=== PATIENT | male | born 1955 | race Caucasian/White ===

== ENCOUNTER 2018-03-30 09:07 | Observation (INO) | payer OTHER, SELFPAY ==
[2018-03-30] VITALS (16 sets, daily range): BP systolic 108–149; BP diastolic 56–84; PULSE 69–77; RESP 16–20; TEMP 36.3–36.9; O2SAT 92–98; BMI 35.8
--- NOTE | 2018-03-30 09:14 | DI.RAD.S_ITS ---
PROCEDURE: XR CHEST 1V INDICATIONS: chest pain TECHNIQUE: One view of the chest was acquired. COMPARISON: [facility], , CHEST 1 VIEW, 12/03/2017, 21:19. FINDINGS: Surgical changes and devices: Soft tissue anchor projecting in the left humeral head. Lungs and pleura: No pleural effusions or pneumothorax. Lungs are clear. Mediastinum: Mediastinal contours appear normal. Heart size is normal. Bones and chest wall: No suspicious bony lesions. Overlying soft tissues appear unremarkable. Spurring versus ununited osteophyte, or potentially small loose body, involving the right glenohumeral joint as before. IMPRESSION: No acute cardiopulmonary disease. Dictated by: Jarred Topete M.D. on 03/30/2018 at 9:29 Approved by: Jarred Topete M.D. on 03/30/2018 at 9:35
[2018-03-30] MEDS: NITROGLYCERIN 0.4 MG SL TAB SL ×3 (09:22→09:39)
[2018-03-30] MEDS: SODIUM CHLORIDE 0.9% 1,000 ML 150 ML IV (09:23)
[2018-03-30 09:35] LABS: Add Manual Diff / Slide Review NO; Basophils Percent Auto 0.3 % (0-2); Eosinophils Percent Auto 1.4 % (2-4); Hematocrit 41.8 % (41-53); Hemoglobin 14.8 g/dL (13.5-17.5); Lymphocytes Percent Auto 28.8 % (25-40); Mean Corpuscular HGB Conc 35.3 % (30-36); Mean Corpuscular Hemoglobin 34.8 PG (26-34); Mean Corpuscular Volume 98.6 fL (80-100); Monocytes Percent Auto 9.5 % (3-14); Neutrophils Absolute Auto 4900 /uL (3000-5900); Platelet Count 182 X10^3/uL (150-400); Red Blood Cell Count 4.24 X10^6/uL (4.5-5.9); Red Cell Distribution Width 13.9 % (11.6-14.8); White Blood Cell Count 8.1 X10^3/uL (4.5-11.0)
[2018-03-30 09:41] LABS: Alanine Aminotransferase 63 IU/L (21-72); Albumin 4.5 g/dL (3.5-5.0); Albumin Globulin Ratio 1.3 (1.0-2.8); Alkaline Phosphatase 69 U/L (38-126); Aspartate Aminotransferase 53 IU/L (17-59); BUN Creatinine Ratio 22.5 (6-22); Bilirubin Total 0.5 mg/dL (0.2-1.3); Blood Urea Nitrogen 18 mg/dL (9-20); Calcium 9.4 mg/dL (8.4-10.2); Carbon Dioxide 26 mmol/L (22-32); Chloride 97 mmol/L (98-107); Creatine Kinase 155 U/L (55-170); Estimated Glomerular Filt Rate > 60.0 mL/min (>60); Globulin 3.4 g/dL (1.7-4.1); Glucose 191 mg/dL (80-110); HEMOLYSIS 33 (0-50); Lipase 117 U/L (23-300); Potassium 4.2 mmol/L (3.4-5.1); Sodium 137 mmol/L (137-145); Total Protein 7.9 g/dL (6.3-8.2)
[2018-03-30 09:53] LABS: Troponin I < 0.012 ng/mL (0.01-0.034)
[2018-03-30 09:57] LABS: Creatine Kinase MB 3.17 ng/mL (<2.37)
--- NOTE | 2018-03-30 10:02 | ED.CHESTPAIN ---
HPI - Chest Pain General Chief Complaint: Chest Pain Stated Complaint: Chest Pain Time Seen by Provider: 03/30/18 09:14 Source: patient and EMS Mode of arrival: EMS History of Present Illness HPI narrative: Patient is a 62-year-old male with known coronary artery disease presenting with chest pain. [facility] and felt like he was having chest pain. He was given nitro and aspirin by EMS brought his pain down. He is still having some pain across the middle of his chest nonradiating. MD complaint: chest pain Onset (ago): minute(s) Duration: constant Treatments prior to arrival chest pain: aspirin and nitroglycerin Related Data Home Medications Medication Instructions Recorded Confirmed atorvastatin 40 mg PO QHS 03/30/18 03/30/18 gabapentin 600 mg PO QPM 03/30/18 03/30/18 gabapentin [Neurontin] 300 mg PO BID 03/30/18 03/30/18 insulin aspart U-100 [Novolog 50 unit SQ TIDCC 03/30/18 03/30/18 Flexpen U-100 Insulin] insulin glargine [Lantus Solostar 70 unit SUBCUT BID 03/30/18 03/30/18 U-100 Insulin] Previous Rx's Medication Instructions Recorded isosorbide mononitrate 60 mg PO QAM #90 tab 09/03/17 lisinopril 2.5 mg PO QAM #90 tab 11/18/17 famotidine 20 mg PO BID #60 tab 12/30/17 metformin [Glucophage] 500 mg PO BID #180 tab 01/04/18 albuterol sulfate HFA 90 1 - 2 puff INHALATION Q4HP PRN #3 03/11/18 mcg/actuation aerosol inhaler inh citalopram 40 mg tablet 40 mg PO QDAY #90 tab 03/11/18 pen needle, diabetic 29 gauge x #100 each 03/11/18 1/2 levothyroxine 50 mcg tablet 50 mcg PO QAM #90 tab 03/25/18 metoprolol tartrate 25 mg tablet 25 mg PO QAM #90 tab 03/25/18 pen needle, diabetic 31 gauge x #100 each 03/25/18 5/16 Allergies Allergy/AdvReac Type Severity Reaction Status Date / Time adhesive Allergy Mild REDNESS/ITC Verified 03/16/18 11:41 HINESS Review of Systems Review of Systems All systems reviewed & are unremarkable except as noted in HPI and below Constitutional Denies chills, Denies fever(s), Denies lethargy and Denies weakness Cardiovascular Reports as per HPI, Reports system reviewed and no additional complaints, except as docu, Denies dyspnea and Denies dyspnea on exertion Respiratory Denies cough, Denies dyspnea, Denies dyspnea on exertion and Denies wheezing Musculoskeletal Denies back pain, Denies muscle weakness, Denies numbness and Denies tingling Integumentary/Breasts Denies pruritus, Denies erythema, Denies rash and Denies wounds Neurologic Denies numbness, Denies tingling and Denies weakness Allergic/Immunologic Denies wheezing PFSH Medical History COPD (chronic obstructive pulmonary disease) (Acute) Hypothyroidism (Acute) Coronary artery disease (Acute) Diabetes (Acute) Hyperlipidemia (Acute) Hypertension (Acute) Family History: Reviewed 03/30/18 by Devendra Baker MD Social History household members: spouse, children and other Smoking Status: Current every day smoker alcohol intake: current Exam Initial Vital Signs Initial Vital Signs: Vital Signs Temperature 98.4 F 03/30/18 09:13 Pulse Rate 77 03/30/18 09:13 Respiratory Rate 16 03/30/18 09:13 Blood Pressure 134/84 H 03/30/18 09:13 Pulse Oximetry 97 03/30/18 09:13 GENERAL: Appears in pain slight diaphoresis HEENT: Head atraumatic,EOMI, pupils reactive, CARDIOVASCULAR: Regular rate and rhythm without murmurs, rubs or gallops. RESPIRATORY: Breath sounds equal bilaterally, no wheezes rales or rhonchi. ABDOMEN: Soft, nontender. Normoactive bowel sounds all 4 quadrants. No guarding or rebound. : No CVA tenderness EXTREMITIES: Normal range of motion, no clubbing or edema. Neurovascularly intact NEUROLOGICAL: Alert and oriented x4.Normal gait and speech. Cranial nerves II through XII grossly intact. SKIN: Warm, dry, no laceration, no petechiae, no rashes or lesions. Course Orders Ordered: ED Orders 03/30/18 09:00 Complete Blood Count AUTO DIFF Stat Comprehensive Metabolic Panel Stat D Dimer Stat Lipase Stat Troponin with CK Cardiac Panel Stat 03/30/18 09:14 XR chest 1V Stat EKG-12 Lead Stat 03/30/18 12:14 Troponin I Stat 03/30/18 14:09 Education, smoking cessation ONGOING 03/30/18 20:00 Troponin I Q8H 03/31/18 04:00 Troponin I Q8H Acetaminophen (Tylenol) 650 mg PO Q6HR PRN PRN Reason: As Needed for Fever/Mild Pain Al Hydrox/Mg Hydrox/Simethicone (Maalox Plus) 30 ml PO Q6HR PRN PRN Reason: Dyspepsia Atorvastatin Calcium (Lipitor) 40 mg PO QHS [facility] Calcium Carbonate (Tums) 1,000 mg PO Q4HR PRN PRN Reason: Dyspepsia Citalopram Hydrobromide (Celexa) 40 mg PO DAILY [facility] Last Admin: 03/30/18 15:02 Dose: 40 mg Gabapentin (Neurontin) 300 mg PO 0900,1500 [facility] Last Admin: 03/30/18 16:26 Dose: 300 mg Gabapentin (Neurontin) 600 mg PO QHS [facility] Insulin Aspart (Novolog Flexpen) 50 unit SUBCUT TIDWM [facility] Insulin Aspart (Novolog Flexpen) 0 unit SUBCUT ACHS [facility]; Protocol Insulin Glargine (Lantus Solostar (Pen)) 70 unit SUBCUT BID [facility] Isosorbide Mononitrate (Imdur) 60 mg PO DAILY [facility] Last Admin: 03/30/18 15:01 Dose: 60 mg Levothyroxine Sodium (Synthroid) 50 mcg PO 0600 [facility] Last Admin: 03/30/18 15:02 Dose: 50 mcg Lisinopril (Zestril) 2.5 mg PO DAILY [facility] Last Admin: 03/30/18 15:01 Dose: 2.5 mg Magnesium Hydroxide (Milk Of Magnesia) 30 ml PO DAILY PRN PRN Reason: Constipation Metformin HCl (Glucophage) 500 mg PO BIDWM [facility] Metoprolol Tartrate (Lopressor) 25 mg PO BID [facility] Morphine Sulfate (Morphine) 4 mg IV Q2H PRN PRN Reason: Chest Pain Last Admin: 03/30/18 16:26 Dose: 4 mg Ranitidine HCl (Zantac) 150 mg PO BID [facility] Discontinued Medications Sodium Chloride (Normal Saline 0.9%) 1,000 mls @ 150 mls/hr IV CONT [facility] Last Infusion: 03/30/18 14:19 Dose: 150 mls/hr Admin: 03/30/18 09:23 Dose: 150 mls/hr Insulin Aspart (Novolog Flexpen) 0 unit SUBCUT Q6H [facility]; Protocol Last Admin: 03/30/18 15:04 Dose: Metoprolol Tartrate (Lopressor) 25 mg PO NOW ONE Stop: 03/30/18 14:24 Last Admin: 03/30/18 15:01 Dose: 25 mg Morphine Sulfate (Morphine) 4 mg IV NOW ONE Stop: 03/30/18 10:04 Last Admin: 03/30/18 10:14 Dose: 4 mg Morphine Sulfate (Morphine) 4 mg IV NOW ONE Stop: 03/30/18 13:48 Last Admin: 03/30/18 13:58 Dose: 4 mg Nicotine (Nicoderm) 21 mg TOP NOW ONE Stop: 03/30/18 12:48 Last Admin: 03/30/18 13:35 Dose: 21 mg Nicotine (Nicoderm) 21 mg TOP NOW ONE Stop: 03/30/18 15:31 Last Admin: 03/30/18 16:27 Dose: Nitroglycerin (Nitrostat) 0.4 mg SL [id number] PRN PRN Reason: Chest Pain Last Admin: 03/30/18 09:39 Dose: 0.4 mg Admin: 03/30/18 09:28 Dose: 0.4 mg Admin: 03/30/18 09:22 Dose: 0.4 mg Pantoprazole Sodium (Protonix) 40 mg IV NOW ONE Stop: 03/30/18 10:04 Last Admin: 03/30/18 10:15 Dose: 40 mg Consultations Consultation #1: Dr. Baker in the ED to evaluate patient. Recommends repeating a troponin if her hands negative that he could stay here for stress test if it is elevating then will need to be transferred. 2nd troponin is negative doctor her Stevan happily accepts. Vital Signs - 8 hr 03/30/18 09:13 03/30/18 09:28 03/30/18 09:32 Temperature 98.4 F Pulse Rate 77 75 75 Respiratory Rate 16 18 Blood Pressure 134/84 H 108/56 L Blood Pressure [Left Arm] 127/67 H Pulse Oximetry 97 95 03/30/18 09:39 03/30/18 09:43 03/30/18 10:01 Temperature Pulse Rate 73 73 74 Respiratory Rate 18 18 Blood Pressure 118/63 Blood Pressure [Left Arm] 109/57 L 129/62 H Pulse Oximetry 97 97 03/30/18 10:16 03/30/18 11:57 03/30/18 13:33 Temperature Pulse Rate 73 73 74 Respiratory Rate 18 16 16 Blood Pressure Blood Pressure [Left Arm] 128/70 H 149/68 H 136/59 H Pulse Oximetry 98 93 94 03/30/18 13:55 03/30/18 14:09 03/30/18 16:04 Temperature 98.0 F Pulse Rate 74 69 Respiratory Rate 18 16 Blood Pressure 142/77 H Blood Pressure [Left Arm] 145/70 H Pulse Oximetry 94 96 96 MDM - Chest Pain Lab Data Result diagrams: 03/30/18 09:00 03/30/18 09:00 Lab Results 03/30/18 03/30/18 03/30/18 Range/Units 09:00 09:00 09:00 WBC 8.1 (4.5-11.0) X10^3/uL RBC 4.24 L (4.5-5.9) X10^6/uL Hgb 14.8 (13.5-17.5) g/dL Hct 41.8 (41-53) % MCV 98.6 (80-100) fL MCH 34.8 H (26-34) PG MCHC 35.3 (30-36) % RDW 13.9 (11.6-14.8) % Plt Count 182 (150-400) X10^3/uL Neut % (Auto) 60.0 (50-75) % Lymph % (Auto) 28.8 (25-40) % Tyrrell % (Auto) 9.5 (3-14) % Eos % (Auto) 1.4 L (2-4) % Baso % (Auto) 0.3 (0-2) % Neut # (Auto) 4900 (5843-2217) /uL D-Dimer 221 (<231) ng/mL Sodium 137 (137-145) mmol/L Potassium 4.2 (3.4-5.1) mmol/L Chloride 97 L (98-107) mmol/L Carbon Dioxide 26 (22-32) mmol/L BUN 18 (9-20) mg/dL Creatinine 0.80 (0.66-1.25) mg/dL Estimated GFR > 60.0 (>60) mL/min BUN/Creatinine Ratio 22.5 H (6-22) Glucose 191 H (80-110) mg/dL Calcium 9.4 (8.4-10.2) mg/dL Total Bilirubin 0.5 (0.2-1.3) mg/dL AST 53 (17-59) IU/L ALT 63 (21-72) IU/L Alkaline Phosphatase 69 (38-126) U/L Total Creatine Kinase 155 (55-170) U/L CK-MB (CK-2) 3.17 H (<2.37) ng/mL CK-MB (CK-2) Rel Index 2.0 (1.5-5.0) % Troponin I < 0.012 (0.01-0.034) ng/mL Total Protein 7.9 (6.3-8.2) g/dL Albumin 4.5 (3.5-5.0) g/dL Globulin 3.4 (1.7-4.1) g/dL Albumin/Globulin Ratio 1.3 (1.0-2.8) Lipase 117 (23-300) U/L // Range/Units 12:14 WBC (4.5-11.0) X10^3/uL RBC (4.5-5.9) X10^6/uL Hgb (13.5-17.5) g/dL Hct (41-53) % MCV (80-100) fL MCH (26-34) PG MCHC (30-36) % RDW (11.6-14.8) % Plt Count (150-400) X10^3/uL Neut % (Auto) (50-75) % Lymph % (Auto) (25-40) % Tyrrell % (Auto) (3-14) % Eos % (Auto) (2-4) % Baso % (Auto) (0-2) % Neut # (Auto) (8539-2501) /uL D-Dimer (<231) ng/mL Sodium (137-145) mmol/L Potassium (3.4-5.1) mmol/L Chloride (98-107) mmol/L Carbon Dioxide (22-32) mmol/L BUN (9-20) mg/dL Creatinine (0.66-1.25) mg/dL Estimated GFR (>60) mL/min BUN/Creatinine Ratio (6-22) Glucose (80-110) mg/dL Calcium (8.4-10.2) mg/dL Total Bilirubin (0.2-1.3) mg/dL AST (17-59) IU/L ALT (21-72) IU/L Alkaline Phosphatase (38-126) U/L Total Creatine Kinase (55-170) U/L CK-MB (CK-2) (<2.37) ng/mL CK-MB (CK-2) Rel Index (1.5-5.0) % Troponin I < 0.012 (0.01-0.034) ng/mL Total Protein (6.3-8.2) g/dL Albumin (3.5-5.0) g/dL Globulin (1.7-4.1) g/dL Albumin/Globulin Ratio (1.0-2.8) Lipase (23-300) U/L Imaging Data Chest x-ray: Radiologist's impression: PROCEDURE: XR CHEST 1V INDICATIONS: chest pain TECHNIQUE: One view of the chest was acquired. COMPARISON: [facility], , CHEST 1 VIEW, 12/03/2017, 21:19. FINDINGS: Surgical changes and devices: Soft tissue anchor projecting in the left humeral head. Lungs and pleura: No pleural effusions or pneumothorax. Lungs are clear. Mediastinum: Mediastinal contours appear normal. Heart size is normal. Bones and chest wall: No suspicious bony lesions. Overlying soft tissues appear unremarkable. Spurring versus ununited osteophyte, or potentially small loose body, involving the right glenohumeral joint as before. IMPRESSION: No acute cardiopulmonary disease. Dictated by: Jarred Topete M.D. on 03/30/2018 at 9:29 ECG Data Attestation: I personally reviewed and interpreted this ECG as follows: Prior ECG tracings: available for review Interpretation: EKG 1. Normal sinus rhythm rate 74 no acute ischemia some artifact noted similar to previous EKG in December 2017 EKG 2.: Normal sinus rhythm rate 72 no acute changes. MDM Narrative Medical decision making narrative: Patient has known coronary artery disease with chest pain. Chest pain improved most with morphine however he did receive 3 nitro which only helps some. No changes in EKG. Requesting a nicotine patch. Pain is non migratory D-dimer is negative I do not suspect dissection. Discharge Plan Departure Patient Disposition: Admitted as Observation Clinical Impression: Chest pain Discharge Date/Time: 03/30/18 14:14 Interventions: ED Discharge Assessment Last Done: 03/30/18 14:14 Admit Date/Time: 03/30/18 14:09 Admit Provider: Devendra Baker
[2018-03-30] MEDS: MORPHINE 4 MG/ML INJ IV ×4 (10:14→20:15)
[2018-03-30] MEDS: PANTOPRAZOLE 40 MG VIAL IV (10:15)
[2018-03-30 11:04] LABS: D Dimer 221 ng/mL (<231)
[2018-03-30 12:56] LABS: Troponin I < 0.012 ng/mL (0.01-0.034)
[2018-03-30] MEDS: NICOTINE 21 MG PATCH TOP (13:35)
[2018-03-30] MEDS: LISINOPRIL 5 MG TABLET 2.5 MG PO (15:01)
[2018-03-30] MEDS: METOPROLOL 25 MG TABLET PO ×2 (15:01→20:14)
[2018-03-30] MEDS: ISOSORBIDE MONONITRATE ER 30 MG TABLET 60 MG PO (15:01)
[2018-03-30] MEDS: CITALOPRAM 20 MG TABLET 40 MG PO (15:02)
[2018-03-30] MEDS: LEVOTHYROXINE 50 MCG TABLET PO (15:02)
--- NOTE | 2018-03-30 15:31 | PM.HP.1 ---
History of Present Illness Chief complaint: Chest Pain Narrative: Carlos Randall is a 62 year old male patient of Dr. Lakia Londono with history of coronary artery disease, diabetes, nicotine dependence presented to emergency department with complaints of anterior chest pain. He noticed discomfort in anterior chest at around 8:00 a.m. when up to bathroom. It was not relieved after 3 or 4 sublingual nitroglycerin. It finally was relieved after IV morphine in the ER. The discomfort has persisted for over 4 hr. Initial and 4 hr troponin were normal x2. Patient had coronary stent [place] time of [place] in 2006. He had another coronary stent in 2009. Both procedures were done at [facility]. 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 He saw his primary care provider recently with complaints of dizziness and noted to have a heart rate in the mid 50s and his metoprolol tartrate was decreased from 25 mg twice daily down to 25 mg once daily. He is still smoking 1 and half packs per day. Patient History Medical History COPD (chronic obstructive pulmonary disease) (Acute) Hypothyroidism (Acute) Coronary artery disease (Acute) Diabetes (Acute) Hyperlipidemia (Acute) Hypertension (Acute) Family & Social History Family History: Reviewed 03/30/18 by Devendra Baker MD Tobacco & Substance use: Smoking Status Current every day smoker alcohol intake frequency a few times a week Meds Home Medications Medication Instructions Recorded Confirmed Type isosorbide mononitrate 60 mg PO QAM #90 tab 09/03/17 03/30/18 Rx lisinopril 2.5 mg PO QAM #90 tab 11/18/17 03/30/18 Rx famotidine 20 mg PO BID #60 tab 12/30/17 03/30/18 Rx metformin [Glucophage] 500 mg PO BID #180 tab 01/04/18 03/30/18 Rx albuterol sulfate HFA 90 1 - 2 puff INHALATION Q4HP PRN #3 03/11/18 03/30/18 Rx mcg/actuation aerosol inhaler inh citalopram 40 mg tablet 40 mg PO QDAY #90 tab 03/11/18 03/30/18 Rx pen needle, diabetic 29 gauge x #100 each 03/11/18 03/30/18 Rx 1/2 levothyroxine 50 mcg tablet 50 mcg PO QAM #90 tab 03/25/18 03/30/18 Rx metoprolol tartrate 25 mg tablet 25 mg PO QAM #90 tab 03/25/18 03/30/18 Rx pen needle, diabetic 31 gauge x #100 each 03/25/18 03/30/18 Rx / atorvastatin 40 mg PO QHS 03/30/18 03/30/18 History gabapentin 600 mg PO QPM 03/30/18 03/30/18 History gabapentin [Neurontin] 300 mg PO BID 03/30/18 03/30/18 History insulin aspart U-100 [Novolog 50 unit SQ TIDCC 03/30/18 03/30/18 History Flexpen U-100 Insulin] insulin glargine [Lantus Solostar 70 unit SUBCUT BID 03/30/18 03/30/18 History U-100 Insulin] Allergies Allergy/AdvReac Type Severity Reaction Status Date / Time adhesive Allergy Mild REDNESS/ITC Verified 03/16/18 11:41 HINESS Review of Systems Review of Systems All systems reviewed & are unremarkable except as noted in HPI and below Exam Vital Signs (past 8 hours): Vital Signs - 8 hr 03/30/18 09:13 03/30/18 09:28 03/30/18 09:32 Temperature 98.4 F Pulse Rate 77 75 75 Respiratory Rate 16 18 Blood Pressure 134/84 H 108/56 L Blood Pressure [Left Arm] 127/67 H Pulse Oximetry 97 95 03/30/18 09:39 03/30/18 09:43 03/30/18 10:01 Temperature Pulse Rate 73 73 74 Respiratory Rate 18 18 Blood Pressure 118/63 Blood Pressure [Left Arm] 109/57 L 129/62 H Pulse Oximetry 97 97 03/30/18 10:16 03/30/18 11:57 03/30/18 13:33 Temperature Pulse Rate 73 73 74 Respiratory Rate 18 16 16 Blood Pressure Blood Pressure [Left Arm] 128/70 H 149/68 H 136/59 H Pulse Oximetry 98 93 94 03/30/18 13:55 Temperature Pulse Rate 74 Respiratory Rate 18 Blood Pressure Blood Pressure [Left Arm] 145/70 H Pulse Oximetry 94 Pulse Oximetry 94 Oxygen Delivery Method Room Air Narrative Exam Narrative: GENERAL: This is an alert cooperative male who appears in moderate discomfort. HEAD: Atraumatic. Normocephalic. EYES: Pupils equal, round and reactive. Extraocular motions intact. No scleral icterus. No injection or drainage. OROPHARYNX: moist mucosa NECK: Trachea midline. No JVD or lymphadenopathy. CARDIOVASCULAR: Regular rate and rhythm without murmurs, gallops, or rubs. RESPIRATORY: Clear to auscultation bilaterally. GASTROINTESTINAL: Abdomen nondistended, obese, soft, non-tender. No hepato-splenomegaly, or palpable masses. EXTREMITIES: Mild bilateral pretibial edema with chronic venous stasis changes. Neurological: Well-oriented, speech is intact, normal bilateral upper and lower extremity strength SKIN: warm, dry Objective Labs Result Diagrams: 03/30/18 09:00 03/30/18 09:00 Labs: Laboratory Results - last 24 hr 03/30/18 03/30/18 03/30/18 09:00 09:00 09:00 WBC 8.1 RBC 4.24 L Hgb 14.8 Hct 41.8 MCV 98.6 MCH 34.8 H MCHC 35.3 RDW 13.9 Plt Count 182 Neut % (Auto) 60.0 Lymph % (Auto) 28.8 Jerome % (Auto) 9.5 Eos % (Auto) 1.4 L Baso % (Auto) 0.3 Neut # (Auto) 4900 D-Dimer 221 Sodium 137 Potassium 4.2 Chloride 97 L Carbon Dioxide 26 BUN 18 Creatinine 0.80 Estimated GFR > 60.0 BUN/Creatinine Ratio 22.5 H Glucose 191 H Calcium 9.4 Total Bilirubin 0.5 AST 53 ALT 63 Alkaline Phosphatase 69 Total Creatine Kinase 155 CK-MB (CK-2) 3.17 H CK-MB (CK-2) Rel Index 2.0 Troponin I < 0.012 Total Protein 7.9 Albumin 4.5 Globulin 3.4 Albumin/Globulin Ratio 1.3 Lipase 117 03/30/18 12:14 WBC RBC Hgb Hct MCV MCH MCHC RDW Plt Count Neut % (Auto) Lymph % (Auto) Jerome % (Auto) Eos % (Auto) Baso % (Auto) Neut # (Auto) D-Dimer Sodium Potassium Chloride Carbon Dioxide BUN Creatinine Estimated GFR BUN/Creatinine Ratio Glucose Calcium Total Bilirubin AST ALT Alkaline Phosphatase Total Creatine Kinase CK-MB (CK-2) CK-MB (CK-2) Rel Index Troponin I < 0.012 Total Protein Albumin Globulin Albumin/Globulin Ratio Lipase EKG: Sinus rhythm, borderline first-degree AV block Chest x-ray: No acute cardiopulmonary disease Assessment & Plan Plan: Plan: 1. Chest pain: Patient has anterior chest pain persisted for hours but with normal troponin and no ischemic findings on EKG. He has significant coronary artery disease history and ongoing risk factors. There is no pleuritic component to suggest pulmonary embolism and chest x-ray without any concerning findings. He is mildly hypertensive in the emergency department. Also this episode of chest pain does coincide with recent reduction of his metoprolol dosing. Plan: Admit to observation, rule out with serial cardiac enzymes. Telemetry monitoring. IV morphine as needed for chest pain. Lexiscan myocardial perfusion stress test if patient rules out. Also I have increased his metoprolol tartrate back up to 25 mg twice daily. 2. Diabetes: Glucose adequately controlled. Continue insulin regimen with sliding scale NovoLog coverage in hospital. 3. Cigarette dependence: Nicotine patch. Encouraged patient to quit smoking. 4. COPD: Appears stable 5. Hypothyroidism: Continue routine levothyroxine
--- NOTE | 2018-03-30 15:43 | P.HP_ITS ---
History of Present Illness Chief complaint: Chest Pain Narrative: Carlos Randall is a 62 year old male patient of Dr. Lakia Londono with history of coronary artery disease, diabetes, nicotine dependence presented to emergency department with complaints of anterior chest pain. He noticed discomfort in anterior chest at around 8:00 a.m. when up to bathroom. It was not relieved after 3 or 4 sublingual nitroglycerin. It finally was relieved after IV morphine in the ER. The discomfort has persisted for over 4 hr. Initial and 4 hr troponin were normal x2. Patient had coronary stent at time of AL in 2006. He had another coronary stent in 2009. Both procedures were done at [facility]. He is not currently established with a banking services clerk. He saw his primary care provider recently with complaints of dizziness and noted to have a heart rate in the mid 50s and his metoprolol tartrate was decreased from 25 mg twice daily down to 25 mg once daily. He is still smoking 1 and half packs per day. Patient History Medical History COPD (chronic obstructive pulmonary disease) (Acute) Hypothyroidism (Acute) Coronary artery disease (Acute) Diabetes (Acute) Hyperlipidemia (Acute) Hypertension (Acute) Family & Social History Family History: Reviewed 03/30/18 by Devendra Baker MD Tobacco & Substance use: Smoking Status Current every day smoker alcohol intake frequency a few times a week Meds Home Medications Medication Instructions Recorded Confirmed Type isosorbide mononitrate 60 mg PO QAM #90 tab 09/03/17 03/30/18 Rx lisinopril 2.5 mg PO QAM #90 tab 11/18/17 03/30/18 Rx famotidine 20 mg PO BID #60 tab 12/30/17 03/30/18 Rx metformin [Glucophage] 500 mg PO BID #180 tab 01/04/18 03/30/18 Rx albuterol sulfate HFA 90 1 - 2 puff INHALATION Q4HP PRN #3 03/11/18 03/30/18 Rx mcg/actuation aerosol inhaler inh citalopram 40 mg tablet 40 mg PO QDAY #90 tab 03/11/18 03/30/18 Rx pen needle, diabetic 29 gauge x #100 each 03/11/18 03/30/18 Rx 1/2 levothyroxine 50 mcg tablet 50 mcg PO QAM #90 tab 03/25/18 03/30/18 Rx metoprolol tartrate 25 mg tablet 25 mg PO QAM #90 tab 03/25/18 03/30/18 Rx pen needle, diabetic 31 gauge x #100 each 03/25/18 03/30/18 Rx / atorvastatin 40 mg PO QHS 03/30/18 03/30/18 History gabapentin 600 mg PO QPM 03/30/18 03/30/18 History gabapentin [Neurontin] 300 mg PO BID 03/30/18 03/30/18 History insulin aspart U-100 [Novolog 50 unit SQ TIDCC 03/30/18 03/30/18 History Flexpen U-100 Insulin] insulin glargine [Lantus Solostar 70 unit SUBCUT BID 03/30/18 03/30/18 History U-100 Insulin] Allergies Allergy/AdvReac Type Severity Reaction Status Date / Time adhesive Allergy Mild REDNESS/ITC Verified 03/16/18 11:41 HINESS Review of Systems Review of Systems All systems reviewed & are unremarkable except as noted in HPI and below Exam Vital Signs (past 8 hours): Vital Signs - 8 hr 3 03/30/18 09:13 03/30/18 09:28 03/30/18 09:32 Temperature 98.4 F Pulse Rate 77 75 75 Respiratory Rate 16 18 Blood Pressure 134/84 H 108/56 L Blood Pressure [Left Arm] 127/67 H Pulse Oximetry 97 95 3 03/30/18 09:39 03/30/18 09:43 03/30/18 10:01 Temperature Pulse Rate 73 73 74 Respiratory Rate 18 18 Blood Pressure 118/63 Blood Pressure [Left Arm] 109/57 L 129/62 H Pulse Oximetry 97 97 3 03/30/18 10:16 03/30/18 11:57 03/30/18 13:33 Temperature Pulse Rate 73 73 74 Respiratory Rate 18 16 16 Blood Pressure Blood Pressure [Left Arm] 128/70 H 149/68 H 136/59 H Pulse Oximetry 98 93 94 3 03/30/18 13:55 Temperature Pulse Rate 74 Respiratory Rate 18 Blood Pressure Blood Pressure [Left Arm] 145/70 H Pulse Oximetry 94 Pulse Oximetry 94 Oxygen Delivery Method Room Air Narrative Exam Narrative: GENERAL: This is an alert cooperative male who appears in moderate discomfort. HEAD: Atraumatic. Normocephalic. EYES: Pupils equal, round and reactive. Extraocular motions intact. No scleral icterus. No injection or drainage. OROPHARYNX: moist mucosa NECK: Trachea midline. No JVD or lymphadenopathy. CARDIOVASCULAR: Regular rate and rhythm without murmurs, gallops, or rubs. RESPIRATORY: Clear to auscultation bilaterally. GASTROINTESTINAL: Abdomen nondistended, obese, soft, non-tender. No hepato- splenomegaly, or palpable masses. EXTREMITIES: Mild bilateral pretibial edema with chronic venous stasis changes. Neurological: Well-oriented, speech is intact, normal bilateral upper and lower extremity strength SKIN: warm, dry Objective Labs Result Diagrams: 03/30/18 09:00 03/30/18 09:00 Labs: Laboratory Results - last 24 hr 03/30/18 03/30/18 03/30/18 09:00 09:00 09:00 WBC 8.1 RBC 4.24 L Hgb 14.8 Hct 41.8 MCV 98.6 MCH 34.8 H MCHC 35.3 RDW 13.9 Plt Count 182 Neut % (Auto) 60.0 Lymph % (Auto) 28.8 Morris % (Auto) 9.5 Eos % (Auto) 1.4 L Baso % (Auto) 0.3 Neut # (Auto) 4900 D-Dimer 221 Sodium 137 Potassium 4.2 Chloride 97 L Carbon Dioxide 26 BUN 18 Creatinine 0.80 Estimated GFR > 60.0 BUN/Creatinine Ratio 22.5 H Glucose 191 H Calcium 9.4 Total Bilirubin 0.5 AST 53 ALT 63 Alkaline Phosphatase 69 Total Creatine Kinase 155 CK-MB (CK-2) 3.17 H CK-MB (CK-2) Rel Index 2.0 Troponin I < 0.012 Total Protein 7.9 Albumin 4.5 Globulin 3.4 Albumin/Globulin Ratio 1.3 Lipase 117 03/30/18 12:14 WBC RBC Hgb Hct MCV MCH MCHC RDW Plt Count Neut % (Auto) Lymph % (Auto) Morris % (Auto) Eos % (Auto) Baso % (Auto) Neut # (Auto) D-Dimer Sodium Potassium Chloride Carbon Dioxide BUN Creatinine Estimated GFR BUN/Creatinine Ratio Glucose Calcium Total Bilirubin AST ALT Alkaline Phosphatase Total Creatine Kinase CK-MB (CK-2) CK-MB (CK-2) Rel Index Troponin I < 0.012 Total Protein Albumin Globulin Albumin/Globulin Ratio Lipase EKG: Sinus rhythm, borderline first-degree AV block Chest x-ray: No acute cardiopulmonary disease Assessment & Plan Plan: Plan: 1. Chest pain: Patient has anterior chest pain persisted for hours but with normal troponin and no ischemic findings on EKG. He has significant coronary artery disease history and ongoing risk factors. There is no pleuritic component to suggest pulmonary embolism and chest x-ray without any concerning findings. He is mildly hypertensive in the emergency department. Also this episode of chest pain does coincide with recent reduction of his metoprolol dosing. Plan: Admit to observation, rule out with serial cardiac enzymes. Telemetry monitoring. IV morphine as needed for chest pain. Lexiscan myocardial perfusion stress test if patient rules out. Also I have increased his metoprolol tartrate back up to 25 mg twice daily. 2. Diabetes: Glucose adequately controlled. Continue insulin regimen with sliding scale NovoLog coverage in hospital. 3. Cigarette dependence: Nicotine patch. Encouraged patient to quit smoking. 4. COPD: Appears stable 5. Hypothyroidism: Continue routine levothyroxine
--- NOTE | 2018-03-30 15:43 | PC.NURSE ---
PT ARRIVED TO FLOOR AROUND 1430, SETTLED IN ROOM. PO MEDICATION GIVEN, BS 129. DENIES PAIN. PT IS ON AN ADA DIET WITH THIN LIQUIDS. IV TO R.AC WITH NS AT 150CC/HR. RESTING COMFORTABLY.
--- NOTE | 2018-03-30 16:20 | PC.NURSE ---
Admitted from ER to RM 215 at 1500. Alert/oriented. DX of chest pain. Lungs w/ expiratory wheeze Left middle lobe. SpO2 96% RA. Tele in place. Pt oriented to room and call system. Call light w/in reach.
[2018-03-30] MEDS: GABAPENTIN 300 MG CAPSULE PO (16:26)
[2018-03-30] MEDS: METFORMIN HCL 500 MG TABLET PO (17:01)
[2018-03-30] MEDS: INSULIN ASPART 100 UNIT/ML INSULN PEN 50 UNIT SUBCUT (17:02)
[2018-03-30] MEDS: INSULIN ASPART 100 UNIT/ML INSULN PEN SUBCUT (17:03)
[2018-03-30] MEDS: ATORVASTATIN 20 MG TABLET 40 MG PO (20:13)
[2018-03-30] MEDS: GABAPENTIN 300 MG CAPSULE 600 MG PO (20:13)
[2018-03-30 21:19] LABS: Troponin I 0.013 ng/mL (0.01-0.034)
[2018-03-30] MEDS: DEXTROSE 50 % IN WATER 25 GM/50 ML SYRINGE IV (22:40)
[2018-03-31] VITALS (18 sets, daily range): BP systolic 98–156; BP diastolic 57–92; PULSE 61–88; RESP 15–22; TEMP 36.5–37.4; O2SAT 88–97
--- NOTE | 2018-03-31 00:02 | PC.NURSE ---
Evening Shift Note Pt BG at dinner time 192, per home routine and per sliding scale coverage pt got 53 units. Order clarified with pharmacist Erica. At bedtime, pt blood glucose was 74, pt remained asymptomatic. Lantus insulin was not given at HS. At 2230, BG checked and was 56, pt hard to awaken, pt diaphoretic, and hard to understand verbally. 25 gm of D50W given at 2240. Blood glucose at 2242, 141. Pt able to tolerate some PO orange juice and chocolate pudding after D50 was given. BG at 2330 was 103; pt remains on continuous pulse ox sating 93-96% on 4 L NC, Pt respirations regular, 14/min, pulse 63. Pt denies chest pain.
[2018-03-31 04:38] LABS: Troponin I 0.017 ng/mL (0.01-0.034)
[2018-03-31] MEDS: LEVOTHYROXINE 50 MCG TABLET PO (05:46)
--- NOTE | 2018-03-31 06:10 | PC.NURSE ---
NOC Note: Pt has been somnolent, falling asleep during assessment. BGC was 103 at 2330, down from 141 at 2240. Pt has a few bites of an egg salad sandwich and a few sips of a glucerna. BGC at 0200 was 109 and 118 at 0410. Pt has remained on O2 through the night, desating to 90% on 4L while sleeping, sating mid 90's while on 4l while awake, coarse productive cough noted this morning and occ wheezes noted as well. Pt is currently a smoker. Pt has denied any chest pain, chest tightness or nausea. Pt is more alert this morning than he was at the start of the shift.
[2018-03-31] MEDS: MORPHINE 4 MG/ML INJ IV (07:51)
[2018-03-31] MEDS: METFORMIN HCL 500 MG TABLET PO ×2 (08:16→17:02)
[2018-03-31] MEDS: LISINOPRIL 5 MG TABLET 2.5 MG PO (08:16)
[2018-03-31] MEDS: CITALOPRAM 20 MG TABLET 40 MG PO (08:19)
[2018-03-31] MEDS: ISOSORBIDE MONONITRATE ER 30 MG TABLET 60 MG PO (08:21)
[2018-03-31] MEDS: INSULIN GLARGINE 100 UNIT/ML 3ML PEN 50 UNIT SUBCUT ×2 (09:26→20:46)
--- NOTE | 2018-03-31 10:22 | PC.NURSE ---
Addendum entered by Erin Truong R.N. 03/31/18 14:45: /NEURO - pt becoming more awake, still not not take in much other than a few sips glucerna, seated chair, stood to try to void after bladder scan shows 677, unsuccessful and notified, new order for in/out rec'd, pt req that we please allow him to try again in about 15-20 minutes. Original Note: Addendum entered by Erin Truong R.N. 03/31/18 12:47: NEURO/MS/VITALS - pt more alert at times after seth scan, still falls asleep, did not eat or drink, offered sips of glucerna, no mealtime insulins given, bp qor/58, ok admin metoprolol per who is in at lunch, morphine prn reduced to 1mg, discussed urinary retention with md, no new orders at this time, pt not ready to try void again, stood with assistance, unsteady, tsf to chair with chair alarm set. Original Note: AM NOTE - woke for vital signs, pt has his 02 off and his sat 88%, replaced 3l and returns 93-95%, pt states chest discomfort present, 6 on scale 0/10, notified and informed earlier troponin and to continue with the planned seth scan this am, npo for procedure, given 4mg iv morphine, pt very somnolent after dosage, spoke with , morphine dose will be changed to 2mg, informed cbg range overnight and 170 this am, held meal and ss as npo, adjuste his lantus to 50units and dose admin, along with metformin, spoke Mamta Ford re meds and isosorbide admin, pt tried void prior to transport via wc for scan, only 25ml, bladder scan with 445ml, pt does not want catheter and was taken via wc for the seth scan.
--- NOTE | 2018-03-31 12:35 | PM.PN.1 ---
Subjective Date Patient Seen: 03/31/18 Interval history: Patient with persistent at times severe chest pain relieved with morphine. However he has ruled out with serial enzymes and has no ischemic changes on EKG. Also he is quite somnolent and having some difficulty urinating with the amount of morphine he has been getting. Also his blood sugars were down to 50 this morning likely due to change in diet in hospital. Exam Vital Signs (past 8 hours): Vital Signs - 8 hr 03/31/18 06:35 03/31/18 07:30 03/31/18 07:40 Temperature 98.6 F Pulse Rate 88 Respiratory Rate 18 Blood Pressure 156/92 H Pulse Oximetry 95 88 L 93 03/31/18 08:00 03/31/18 08:16 03/31/18 08:41 Temperature Pulse Rate Respiratory Rate Blood Pressure 156/92 H Pulse Oximetry 94 93 03/31/18 11:45 Temperature 99.3 F Pulse Rate 70 Respiratory Rate 16 Blood Pressure 104/58 L Pulse Oximetry 93 Pulse Oximetry 93 Oxygen Delivery Method Nasal Cannula Oxygen Flow Rate 3 Narrative Exam Narrative: General: Somnolent male otherwise in no distress Lungs: Breathing nonlabored Extremities: Mild bilateral pretibial edema with chronic venous stasis changes Objective Labs Result Diagrams: 03/30/18 09:00 03/30/18 09:00 Labs: Laboratory Results - last 24 hr 03/30/18 03/30/18 03/31/18 12:14 20:46 04:10 Troponin I < 0.012 0.013 0.017 Assessment & Plan Plan: Plan: 1. Chest pain: Patient has anterior chest pain persisted for more than a day but with normal serial troponin and no ischemic findings on EKG. His Lexiscan today showed inferior wall motion abnormality a little more prominent than his stress test last year. He was unable to lay prone. In light of risk factors, patient will remain in hospital until his resting scan tomorrow. There is no pleuritic component to suggest pulmonary embolism and chest x-ray without any concerning findings. This episode of chest pain does coincided with recent reduction of his metoprolol dosing and he was mildly hypertensive in the ED. Plan: Continue observation services, Telemetry monitoring. Increased his metoprolol tartrate back up to 25 mg twice daily. Resting scan tomorrow. Decrease morphine dose and frequency due to excessive sedation. 2. Diabetes with hypoglycemia in hospital: Patient with change in diet and hospital and also missed a meal due to excessive sedation. Decreased Lantus dosing down to 50 units twice a day and decrease NovoLog dosing down to 40 units with meals if eating. He is on sliding scale coverage as well. 3. Cigarette dependence: Nicotine patch. Encouraged patient to quit smoking. 4. COPD: Appears stable 5. Hypothyroidism: Continue routine levothyroxine Six. Disposition: Continue observation status. Discharge home tomorrow, after resting scan if no obvious reversible ischemia. Quality VTE Deep Vein Thrombosis/Pulmonary Embolism Present on Admission: No
--- NOTE | 2018-03-31 12:42 | P.PN_ITS ---
Subjective Date Patient Seen: 03/31/18 Interval history: Patient with persistent at times severe chest pain relieved with morphine. However he has ruled out with serial enzymes and has no ischemic changes on EKG. Also he is quite somnolent and having some difficulty urinating with the amount of morphine he has been getting. Also his blood sugars were down to 50 this morning likely due to change in diet in hospital. Exam Vital Signs (past 8 hours): Vital Signs - 8 hr 3 03/31/18 06:35 03/31/18 07:30 03/31/18 07:40 Temperature 98.6 F Pulse Rate 88 Respiratory Rate 18 Blood Pressure 156/92 H Pulse Oximetry 95 88 L 93 3 03/31/18 08:00 03/31/18 08:16 03/31/18 08:41 Temperature Pulse Rate Respiratory Rate Blood Pressure 156/92 H Pulse Oximetry 94 93 3 03/31/18 11:45 Temperature 99.3 F Pulse Rate 70 Respiratory Rate 16 Blood Pressure 104/58 L Pulse Oximetry 93 Pulse Oximetry 93 Oxygen Delivery Method Nasal Cannula Oxygen Flow Rate 3 Narrative Exam Narrative: General: Somnolent male otherwise in no distress Lungs: Breathing nonlabored Extremities: Mild bilateral pretibial edema with chronic venous stasis changes Objective Labs Result Diagrams: 03/30/18 09:00 03/30/18 09:00 Labs: Laboratory Results - last 24 hr 03/30/18 03/30/18 03/31/18 12:14 20:46 04:10 Troponin I < 0.012 0.013 0.017 Assessment & Plan Plan: Plan: 1. Chest pain: Patient has anterior chest pain persisted for more than a day but with normal serial troponin and no ischemic findings on EKG. His Lexiscan today showed inferior wall motion abnormality a little more prominent than his stress test last year. He was unable to lay prone. In light of risk factors, patient will remain in hospital until his resting scan tomorrow. There is no pleuritic component to suggest pulmonary embolism and chest x-ray without any concerning findings. This episode of chest pain does coincided with recent reduction of his metoprolol dosing and he was mildly hypertensive in the ED. Plan: Continue observation services, Telemetry monitoring. Increased his metoprolol tartrate back up to 25 mg twice daily. Resting scan tomorrow. Decrease morphine dose and frequency due to excessive sedation. 2. Diabetes with hypoglycemia in hospital: Patient with change in diet and hospital and also missed a meal due to excessive sedation. Decreased Lantus dosing down to 50 units twice a day and decrease NovoLog dosing down to 40 units with meals if eating. He is on sliding scale coverage as well. 3. Cigarette dependence: Nicotine patch. Encouraged patient to quit smoking. 4. COPD: Appears stable 5. Hypothyroidism: Continue routine levothyroxine Six. Disposition: Continue observation status. Discharge home tomorrow, after resting scan if no obvious reversible ischemia. Quality VTE Deep Vein Thrombosis/Pulmonary Embolism Present on Admission: No
[2018-03-31] MEDS: METOPROLOL 25 MG TABLET PO ×2 (12:45→20:44)
--- NOTE | 2018-03-31 15:44 | CM.DANOTE ---
DCP/Assessment: Reviewed chart. Patient is a 62yr old male admitted under OBS status to I.. with chest pain. Primary payor is 1)Med[employer]are. PCP listed is Dr. Londono. LYN attempted to meet with patient this AM. Patient off the floor at time of visit for stress test. Spoke with RN/Javier and he reports that patient appears to be primarily I with ADL's. Pt. resides with spouse/Hannah in [place]. Notes report patient with significant h/o COPD and continues to smoke. At this time d/c needs unknown. Notified RN that CM team would continue to follow and re-attempt visit when patient returns from testing. P: Anticipate home when stable. CM team to attempt in-person visit prior to d/c. LYN Bee
[2018-03-31] MEDS: INSULIN ASPART 100 UNIT/ML INSULN PEN SUBCUT ×2 (17:01→20:45)
[2018-03-31] MEDS: GABAPENTIN 300 MG CAPSULE PO (17:02)
--- NOTE | 2018-03-31 18:41 | PC.NURSE ---
Evening shift note In and out cath performed with 675 cc of candelaria urine output at approx 1600. Pt more awake this shift, able to stay awake and eat the majority of his dinner, remains to be somnolent at times, arousable easily to voice. Pt 95% on 2L NC, pt SOB w/ exertion when OOB to use restroom with assistance. BA active d/t pt not being steady on his feet and hx of impulsivity. When asked about his chest pain, he states he is still having pain but stating I don't want any more of that morphine stuff. Remains on tele, NSR.
[2018-03-31] MEDS: GABAPENTIN 300 MG CAPSULE 600 MG PO (20:43)
[2018-03-31] MEDS: ATORVASTATIN 20 MG TABLET 40 MG PO (20:44)
[2018-04-01] VITALS (7 sets, daily range): BP systolic 116–148; BP diastolic 71–82; PULSE 65–69; RESP 14–16; TEMP 36.3–36.4; O2SAT 94–99
[2018-04-01] MEDS: MORPHINE 4 MG/ML INJ 1 MG IV ×3 (00:07→09:34)
[2018-04-01] MEDS: LEVOTHYROXINE 50 MCG TABLET PO (06:11)
[2018-04-01] MEDS: METFORMIN HCL 500 MG TABLET PO (09:11)
[2018-04-01] MEDS: CITALOPRAM 20 MG TABLET 40 MG PO (09:12)
[2018-04-01] MEDS: LISINOPRIL 5 MG TABLET 2.5 MG PO (09:12)
[2018-04-01] MEDS: ISOSORBIDE MONONITRATE ER 30 MG TABLET 60 MG PO (09:13)
[2018-04-01] MEDS: INSULIN GLARGINE 100 UNIT/ML 3ML PEN 50 UNIT SUBCUT (09:18)
[2018-04-01] MEDS: METOPROLOL 25 MG TABLET PO (09:35)
[2018-04-01] MEDS: GABAPENTIN 300 MG CAPSULE PO (09:35)
--- NOTE | 2018-04-01 11:22 | PC.NURSE ---
Addendum entered by Erin Truong R.N. 04/01/18 14:05: pain - continues to state same chest discomfort and asking for addl morphine, notified and new order rec'd for x1 dose 15mg iv toradol admin and per , dc the morphine. Original Note: AM NOTE - drowsy but awakens and is oriented, clearer today than when observed yesterday, 02 sat 99% 2l, states his chest discomfort 4 on scale 0/10 and is unchanged from yesterday, given 1mg iv morphine, hr 66, assist x 1 person up void, expir wheezes mid to lower, ret bed, cbg 206 this am, npo for part 2 seth, given po meds and lantus insulin. Later am, Kellie from [employer] came up and injection admin, no need to keep npo now, pt given sand and pudding and then later taken down for part 2.
[2018-04-01] MEDS: KETOROLAC 15 MG/ML VIAL IV (11:57)
[2018-04-01] MEDS: INSULIN ASPART 100 UNIT/ML INSULN PEN SUBCUT (12:02)
[2018-04-01] MEDS: INSULIN ASPART 100 UNIT/ML INSULN PEN 25 UNIT SUBCUT (12:03)
--- NOTE | 2018-04-01 12:58 | PM.DS.1 ---
History of Present Illness Chief complaint: Chest Pain Narrative: Carlos Randall is a 62 year old male presented with chest pain Discharge Providers Date of admission: 03/30/18 14:09 Primary care physician: Lakia Londono DO Discharge provider: Aram Mcdonnell MD Summary Discharge Diagnosis: One. Chest pain myocardial infarction ruled out 2. Diabetes type 2 with some hypoglycemia 3. Tobacco dependence 4. COPD 5. Hypothyroid Hospital Course: Patient admitted to the hospital with chest pain troponin was normal EKG without any acute ST T wave changes. He did have a Lexiscan that showed no acute ischemia or any acute reperfusion abnormality. It was read as a low probability stress test. Patient continues to have chest pain which seems to be noncardiac in nature. We did increase his metoprolol from 20/5 once a day to 25 twice a day. The patient will be discharged to home and have him follow up with his primary care physician for further workup of the noncardiac chest pain Status at Discharge Functional status at discharge: independent ambulation Overall status at discharge: patient is back to baseline Time Spent with Patient Greater than 30 minutes Exam Vital Signs (past 8 hours): Vital Signs - 8 hr 04/01/18 08:00 04/01/18 09:00 04/01/18 11:19 Temperature 97.5 F L Pulse Rate 66 Respiratory Rate 14 Blood Pressure 148/82 H Pulse Oximetry 97 99 94 04/01/18 11:29 04/01/18 11:53 Temperature 97.3 F L Pulse Rate 65 Respiratory Rate 16 Blood Pressure 116/71 Pulse Oximetry 94 96 Pulse Oximetry 96 Oxygen Delivery Method Room Air Oxygen Flow Rate 0 Objective Labs Result Diagrams: 03/30/18 09:00 03/30/18 09:00 Discharge Plan Discharge Plan Patient Disposition: Home, Self-Care Discharge comment: follow up with PCP next week. Provider Discharge Instructions Diet: Low-fat and Low-cholesterol Activity: as tolerated Discharge Data Primary Care Provider: Lakia Londono Attending Provider: Devendra Baker Admit Date/Time: 03/30/18 14:09 Quality VTE Deep Vein Thrombosis/Pulmonary Embolism Present on Admission: No
--- NOTE | 2018-04-01 13:01 | P.DS_ITS ---
History of Present Illness Chief complaint: Chest Pain Narrative: Carlos Randall is a 62 year old male presented with chest pain Discharge Providers Date of admission: 03/30/18 14:09 Primary care physician: Lakia Londono DO Discharge provider: Aram Mcdonnell MD Summary Discharge Diagnosis: One. Chest pain myocardial infarction ruled out 2. Diabetes type 2 with some hypoglycemia 3. Tobacco dependence 4. COPD 5. Hypothyroid Hospital Course: Patient admitted to the hospital with chest pain troponin was normal EKG without any acute ST T wave changes. He did have a Lexiscan that showed no acute ischemia or any acute reperfusion abnormality. It was read as a low probability stress test. Patient continues to have chest pain which seems to be noncardiac in nature. We did increase his metoprolol from 20/5 once a day to 25 twice a day. The patient will be discharged to home and have him follow up with his primary care physician for further workup of the noncardiac chest pain Status at Discharge Functional status at discharge: independent ambulation Overall status at discharge: patient is back to baseline Time Spent with Patient Greater than 30 minutes Exam Vital Signs (past 8 hours): Vital Signs - 8 hr 3 04/01/18 08:00 04/01/18 09:00 04/01/18 11:19 Temperature 97.5 F L Pulse Rate 66 Respiratory Rate 14 Blood Pressure 148/82 H Pulse Oximetry 97 99 94 3 04/01/18 11:29 04/01/18 11:53 Temperature 97.3 F L Pulse Rate 65 Respiratory Rate 16 Blood Pressure 116/71 Pulse Oximetry 94 96 Pulse Oximetry 96 Oxygen Delivery Method Room Air Oxygen Flow Rate 0 Objective Labs Result Diagrams: 03/30/18 09:00 03/30/18 09:00 Discharge Plan Discharge Plan Patient Disposition: Home, Self-Care Discharge comment: follow up with PCP next week. Provider Discharge Instructions Diet: Low-fat and Low-cholesterol Activity: as tolerated Discharge Data Primary Care Provider: Lakia Londono Attending Provider: Devendra Baker Admit Date/Time: 03/30/18 14:09 Quality VTE Deep Vein Thrombosis/Pulmonary Embolism Present on Admission: No
--- NOTE | 2018-04-01 19:14 | DI.NM.S_ITS ---
DATE OF SERVICE: 03/31/2018 PROCEDURE: Pharmacological perfusion study. INDICATION: Chest pain with known history of CAD, diabetes mellitus, hypertension, hyperlipidemia. RADIOPHARMACEUTICAL: 24.9 mCi technetium-99m Myoview IV was injected at stress, and 27.5 mCi technetium-99m Myoview IV was injected at rest. CARDIAC STRESS: Patient underwent IV Lexiscan perfusion study under the supervision of an attending staff using standard IV Lexiscan protocol. Patient remained hemodynamically stable. No symptoms were reported. Baseline EKG revealed sinus rhythm with QS complex in V1 to V2 and lead AVL. Those changes were seen in previous EKGs as well. During stress, no obvious ischemic changes seen. No significant arrhythmias seen. RAW DATA: There appears to be increased subdiaphragmatic activity. There is increased diaphragmatic activity near the inferior border of the heart as well. Patient's weight is 210 pounds. GATED STUDY: Resting LV ejection fraction 64%. Stress LV ejection fraction 71%. I don't see any obvious wall motion abnormalities. No transient ischemic dilatation. TID ratio 0.73, which is within normal limits. Lung/heart ratio is 0.39, which is within normal limits. Resting end-diastolic volume is 124 mL. MYOCARDIAL PERFUSION SCAN: Please note that we do not have any prone images for this study. Stress supine images were compared with resting supine images. Stress supine images revealed moderate-sized moderately decreased perfusion of inferior wall, inferior apex. During resting supine, there was moderate-sized mild to moderately decreased perfusion of inferior wall, inferior apex with some slight improvement in the mid inferior wall. Patient doesn't have any prone images. Patient had perfusion study in June 2017 and February 2016. At that time also, patient had similar inferior wall inferoapical defect, but at that time patient had prone images and there was significant improvement in prone images, with minimally decreased perfusion of distal inferior wall. CONCLUSION: There appears to be predominantly fixed moderate-sized mild to moderately decreased perfusion of inferior wall inferior apex with slight reversibility in the mid inferior segment; however, in this study, patient doesn't have any prone images. As I mentioned above, patient had perfusion study in June 2017 and February 2016. At that time also, he had similar inferior wall inferoapical defect, but at that time there was significant improvement in prone images. Overall, LV function is preserved. No transient ischemic dilatation. Lung/heart ratio is normal. We'll recommend clinical correlation. Discussed the finding with Dr. Mcdonnell. Carlos Randall - CLIFF/alexandra/bailey doc#: [id number]/job#: [id number] dd: 04/01/2018 12:08:00 dt: 04/01/2018 19:04:00 DICTATING MD/COPIES TO: Eliazar You MD COPIES MNE: FRITZ
== END 2018-04-01 16:49 | disposition home or self-care (01) ==
LOC: ED 13:49 → AC 14:11
PROVIDERS: Admitting Provider Internal Medicine; Emergency Provider Emergency Medicine; Family Provider Family Medicine; PCP Family Medicine; Visit Provider Internal Medicine
DX: R07.9 Chest pain, unspecified (principal); I25.10 Atherosclerotic heart disease of native coronary artery without angina pectoris; Z79.82 Long term (current) use of aspirin; E11.9 Type 2 diabetes mellitus without complications; Z79.4 Long term (current) use of insulin; E03.9 Hypothyroidism, unspecified; E78.5 Hyperlipidemia, unspecified; I10 Essential (primary) hypertension; F17.210 Nicotine dependence, cigarettes, uncomplicated; J44.9 Chronic obstructive pulmonary disease, unspecified
CPT/HCPCS: 36415; 36591; 71045; 78452; 80053; 82550; 82553; 82962; 83690; 84484; 85025; 85379; 93005; 93016; 93017; 93018; 94760; 96361; 96372; 96374; 96375; 96376; 99284; 99285; 99406; G0378; A9502; C9113; J1885; J2270; J2785

== ENCOUNTER → 2018-05-13 11:49 | Outpatient (CLI) | payer OTHER, SELFPAY ==
[2018-03-30 15:25] VITALS: BMI 35.8
[2018-05-13 12:29] LABS: Hemoglobin A1C% w Est Avg Glu 9.4 % (4.0-6.0)
[2018-05-13 12:34] LABS: Blood Urea Nitrogen 20 mg/dL (9-20); Carbon Dioxide 27 mmol/L (22-32); Chloride 100 mmol/L (98-107); Potassium 4.4 mmol/L (3.4-5.1); Sodium 137 mmol/L (137-145)
[2018-05-13 12:35] LABS: Alanine Aminotransferase 44 IU/L (21-72); Albumin Globulin Ratio 1.4 (1.0-2.8); Alkaline Phosphatase 63 U/L (38-126); Aspartate Aminotransferase 39 IU/L (17-59); Bilirubin Total 0.5 mg/dL (0.2-1.3); Calcium 8.5 mg/dL (8.4-10.2); Cholesterol 130 mg/dL (140-199); Estimated Glomerular Filt Rate > 60.0 mL/min (>60); Globulin 2.9 g/dL (1.7-4.1); Glucose 229 mg/dL (80-110); HDL Cholesterol 37 mg/dL (40-60); HEMOLYSIS < 15 (0-50); LDL Cholesterol Calculated 50 mg/dL (<100); Total Protein 6.9 g/dL (6.3-8.2); Triglycerides 215 mg/dL (35-150)
[2018-05-13 12:55] LABS: Add Manual Diff / Slide Review NO; Basophils Percent Auto 0.2 % (0-2); Eosinophils Percent Auto 1.3 % (2-4); Hematocrit 42.8 % (41-53); Hemoglobin 14.9 g/dL (13.5-17.5); Lymphocytes Percent Auto 22.2 % (25-40); Mean Corpuscular HGB Conc 34.9 % (30-36); Mean Corpuscular Hemoglobin 34.4 PG (26-34); Mean Corpuscular Volume 98.4 fL (80-100); Monocytes Percent Auto 6.8 % (3-14); Neutrophils Absolute Auto 5100 /uL (3000-5900); Neutrophils Percent Auto 69.5 % (50-75); Platelet Count 204 X10^3/uL (150-400); Red Blood Cell Count 4.35 X10^6/uL (4.5-5.9); Red Cell Distribution Width 14.1 % (11.6-14.8); White Blood Cell Count 7.3 X10^3/uL (4.5-11.0)
[2018-05-13 13:25] LABS: Thyroid Stimulating Hormone 3.73 uIU/mL (0.47-4.68)
== END ==
PROVIDERS: PCP Family Medicine; Visit Provider Family Medicine
DX: R00.1 Bradycardia, unspecified (principal); E11.9 Type 2 diabetes mellitus without complications; R42 Dizziness and giddiness
CPT/HCPCS: 36415; 80053; 80061; 83036; 84443; 85025

== ENCOUNTER 2018-08-30 17:10 | Emergency (ER) | payer MEDICARE, SELFPAY ==
[2018-08-13 15:47] VITALS: BMI 35.8
[2018-08-30 17:13] VITALS: BP 168/83; PULSE 62; RESP 18; TEMP 36.8; O2SAT 97; BMI 34.7
--- NOTE | 2018-08-30 20:11 | ED.LOWEXIN ---
HPI - Extremity Injury (Lower) <LESVIA Conklin - Last Filed: 09/16/18 12:06> General Chief Complaint: Extremity Injury, Lower Stated Complaint: right leg pain Time Seen by Provider: 08/30/18 20:11 Source: patient Mode of arrival: wheelchair Limitations: no limitations History of Present Illness HPI Narrative: 62-year-old male with history of coronary artery disease, COPD and is everyday smoker here for complaint of pain to his right groin area over the past 4-5 days. He states that he slipped in the bathtub causing a ground level fall. He denies any trauma to the groin area as he did brace his fall. May reports having pain into the groin area shortly after the fall. He reports increased pain to the groin area with movement of the right lower extremity. Pain is limited to the medial aspect of the very proximal right thigh. he denies any abdominal pain. He denies any testicular or scrotal pain. No inguinal pain. He reports increased pain as over the past couple of days. No fevers no chills. No nausea vomiting. Related Data Home Medications Medication Instructions Recorded Confirmed gabapentin 600 mg PO QPM 03/30/18 09/14/18 insulin aspart U-100 [Novolog 50 unit SQ TIDCC 03/30/18 09/14/18 Flexpen U-100 Insulin] Previous Rx's Medication Instructions Recorded isosorbide mononitrate 60 mg PO QAM #90 tab 09/03/17 pen needle, diabetic 29 gauge x #100 each 03/11/18 1/2 metoprolol tartrate 25 mg PO BID #60 tab 04/01/18 gabapentin 300 mg capsule 300 mg PO BID #180 cap 05/12/18 clotrimazole 1 % topical cream 1 applictn TOP BID #30 gram 05/14/18 levothyroxine 50 mcg tablet 50 mcg PO QAM #90 tab 06/04/18 famotidine 20 mg tablet 20 mg PO BID #180 tab 07/16/18 lisinopril 2.5 mg tablet 2.5 mg PO QAM #90 tab 07/16/18 metformin 500 mg tablet 500 mg PO BID #180 tab 07/16/18 oxycodone-acetaminophen 5 mg-325 1 tab PO Q4-6H PRN #90 tab 09/06/18 mg tablet albuterol sulfate HFA 90 1 - 2 puff INHALATION Q4HP PRN #3 09/09/18 mcg/actuation aerosol inhaler inh atorvastatin 40 mg tablet 40 mg PO QHS #90 tab 09/09/18 beclomethasone diprop 40 1 puff INHALATION BID #10.6 gram 09/09/18 mcg/actuation HFA breath activated aerosol citalopram 40 mg tablet 40 mg PO QDAY #90 tab 09/09/18 insulin glargine (U-100) 100 70 unit SUBCUT BID #15 ml 09/09/18 unit/mL (3 mL) subcutaneous pen pen needle, diabetic 31 gauge x #100 each 09/09/18/16 Allergies Allergy/AdvReac Type Severity Reaction Status Date / Time adhesive Allergy Mild REDNESS/ITC Verified 09/14/18 15:00 HINESS Review of Systems <LESVIA Conklin - Last Filed: 09/16/18 12:06> Constitutional Denies chills, Denies fever(s), Denies lethargy and Denies weakness Eyes Denies change in vision, Denies eye discharge, Denies irritation and Denies loss of vision ENT Ears, Nose, Mouth, and Throat: Denies change in voice, Denies neck pain and Denies sore throat Cardiovascular Denies chest pain, Denies irregular heart rhythm, Denies lightheadedness, Denies palpitations, Denies dyspnea, Denies dyspnea on exertion and Denies orthopnea Respiratory Denies cough, Denies dyspnea, Denies dyspnea on exertion and Denies wheezing Gastrointestinal Gastrointestinal: Denies abdominal pain, Denies change in bowel habits, Denies diarrhea, Denies nausea and Denies vomiting Genitourinary Denies hematuria, Denies flank pain, Denies urinary incontinence and Denies urinary urgency Musculoskeletal Denies neck pain Comments: Pain into right groin area status post ground level fall Integumentary/Breasts Denies pruritus, Denies erythema, Denies rash and Denies wounds Neurologic Denies confusion, Denies loss of vision and Denies weakness Psychiatric Denies anxiety, Denies confusion, Denies depression, Denies homicidal ideation and Denies suicidal ideation Endocrine Denies palpitations Hematologic/Lymphatic Denies easy bruising Allergic/Immunologic Denies wheezing Exam <LESVIA Conklin - Last Filed: 09/16/18 12:06> Initial Vital Signs Initial Vital Signs: Vital Signs Temperature 98.3 F 08/30/18 17:13 Pulse Rate 62 08/30/18 17:13 Respiratory Rate 18 08/30/18 17:13 Blood Pressure 168/83 H 08/30/18 17:13 Pulse Oximetry 97 08/30/18 17:13 Const General: cooperative and well developed Nutritional Appearance: well nourished Orientation: alert, awake, oriented x3 and not confused HENMT Mouth: oral mucosae normal and moist mucous membranes Eyes Conjunctivae: conjunctivae normal Sclera: sclerae normal Pupils: PERRL EOM: EOM intact bilaterally Resp Effort & Inspection: normal respiratory effort, able to speak in complete sentences, no respiratory distress and no use of accessory muscles Auscultation: clear to auscultation bilaterally, no rales, no rhonchi and no wheezes Cardio Rate: regular rate Rhythm: regular rhythm Heart Sounds: no click, no gallops, no murmurs and no rubs Pulses: normal peripheral pulses GI Inspection: non-distended Palpation: soft, no hepatosplenomegaly, No guarding, No pulsatile mass and No tender Auscultation: normal bowel sounds Penis: normal penis Meatus: meatus normal and no meatla discharge Scrotum: scrotum normal, no ecchymosis, not edematous, no inguinal hernias, no masses and no scrotal swelling Testes: normal, no epidiymal tenderness, no testicular mass, no testicular swelling and no testicular tenderness Neuro General: alert, oriented x3, gait normal and no focal motor deficits Speech: speech normal Extrem Other: swelling to the right medial very proximal thigh. No ecchymosis. No erythema. No hematoma appreciated. Distal sensation is intact. Distal range of motion is intact. Distal cap refill less than 2 sec. <Josephine Lynn DO - Last Filed: 09/16/18 18:35> Initial Vital Signs Initial Vital Signs: Vital Signs Temperature 98.3 F 08/30/18 17:13 Pulse Rate 62 08/30/18 17:13 Respiratory Rate 18 08/30/18 17:13 Blood Pressure 168/83 H 08/30/18 17:13 Pulse Oximetry 97 08/30/18 17:13 Course <LESVIA Conklin - Last Filed: 09/16/18 12:06> Orders Ordered: Discontinued Medications Oxycodone/Acetaminophen (Percocet 5/325) 1 tab PO NOW ONE Stop: 08/30/18 20:48 Last Admin: 08/30/18 21:44 Dose: 1 tab Oxycodone/Acetaminophen (Percocet 5/325) 1 tab PO NOW ONE Stop: 08/30/18 22:38 Last Admin: 08/30/18 22:48 Dose: 1 tab Oxycodone/Acetaminophen (Endocet 5/325 Prepack) 1 bottle MISC SEEINSTR ONE Stop: 08/30/18 22:38 Last Admin: 08/30/18 22:48 Dose: 1 bottle Vital Signs - 8 hr 08/30/18 17:13 08/30/18 22:57 Temperature 98.3 F 97.3 F L Pulse Rate 62 65 Respiratory Rate 18 16 Blood Pressure 168/83 H Blood Pressure [Right Arm] 129/72 Pulse Oximetry 97 95 <Josephine Lynn DO - Last Filed: 09/16/18 18:35> Orders Ordered: Discontinued Medications Oxycodone/Acetaminophen (Percocet 5/325) 1 tab PO NOW ONE Stop: 08/30/18 20:48 Last Admin: 08/30/18 21:44 Dose: 1 tab Oxycodone/Acetaminophen (Percocet 5/325) 1 tab PO NOW ONE Stop: 08/30/18 22:38 Last Admin: 08/30/18 22:48 Dose: 1 tab Oxycodone/Acetaminophen (Endocet 5/325 Prepack) 1 bottle MISC SEEINSTR ONE Stop: 08/30/18 22:38 Last Admin: 08/30/18 22:48 Dose: 1 bottle Vital Signs - 8 hr 08/30/18 17:13 08/30/18 22:57 Temperature 98.3 F 97.3 F L Pulse Rate 62 65 Respiratory Rate 18 16 Blood Pressure 168/83 H Blood Pressure [Right Arm] 129/72 Pulse Oximetry 97 95 MDM - Extremity Injury (Lower) <LESVIA Conklin - Last Filed: 09/16/18 12:06> Imaging Data hip pelvis: Radiologist's impression: XRay Report Signed Patient: Carlos Randall RMR#: [id number] : [id number]:[id number] Age/Sex: 62 / MDate of Service: 08/30/18 Loc: ED Accession Number: [id number] Procedure: XR hip w pel if done RT 2V Ordering Provider: Emerson Huynh PROCEDURE: XR HIP W PEL IF DONE RT 2V INDICATIONS: pain and swelling to right groin area after ground level fall TECHNIQUE: AP pelvis with lateral view of the right hip. COMPARISON: None. FINDINGS: Bones: No displaced fractures or dislocations. Pelvic ring appears intact. No suspicious bony lesions. Soft tissues: The visualized bowel gas pattern is normal. There are diffuse vascular calcifications. IMPRESSION: 1. No displaced fracture or dislocation. Dictated by: Pasha Dunn M.D. on 08/30/2018 at 21:20 Approved by: Pasha Dunn M.D. on 08/30/2018 at 21:22 arterial extremity ultrasound : My impression: [place] [address] Ultrasound Report Signed Patient: Carlos Randall RMR#: [id number] : [id number]:[id number] Age/Sex: 62 / MDate of Service: 08/30/18 Loc: ED Accession Number: [id number] Procedure: US arterial duplex LE RT Ordering Provider: Emerson Huynh PROCEDURE: US ARTERIAL DUPLEX LE RT INDICATIONS: PAIN TECHNIQUE: Color and pulse Doppler interrogation was performed of the right lower extremity arterial system, with image documentation. COMPARISON: None. FINDINGS: Common femoral artery: 96 cm/sec, with biphasic flow. Deep femoral artery: 97 cm/sec, with biphasic flow. Proximal superficial femoral artery: 77 cm/sec, with biphasic flow. Mid superficial femoral artery: 87 cm/sec, with biphasic flow. Distal superficial femoral artery: 95 cm/sec, with biphasic flow. Popliteal artery: 64 cm/sec, with biphasic flow. Posterior tibial artery: 50 cm/sec, with biphasic flow. Anterior tibial artery/dorsalis pedis: 76 cm/sec, with biphasic flow. IMPRESSION: 1. No evidence of focal stenosis in the right lower extremity arteries Dictated by: Pasha Dunn M.D. on 08/30/2018 at 22:09 Approved by: Pasha Dunn M.D. on 08/30/2018 at 22:14 [facility] Narrative Medical decision making narrative: hip and pelvis x-ray was obtained was negative for any acute findings. Duplex arterial ultrasound of the right lower extremity was obtained was negative for any acute findings. Signs and symptoms presents as groin strain. [id number] Tylenol Motrin as needed for any discomfort. He is prescribed Percocet for breakthrough pain as he states that Tylenol Motrin has not covering all his pain. He is prescribed small amount of Percocet for breakthrough pain. Rest area. Follow up with primary care provider here in the next few days for re-evaluation. If continued pain may need advanced imaging to the area. Discharge Plan Departure Patient Disposition: Home Clinical Impression: Strain of muscle of right groin region Discharge Date/Time: 08/30/18 23:03 Interventions: ED Discharge Assessment Last Done: 08/30/18 23:03 Instructions: DI for Groin Strain Activity Restrictions/Additional Instructions: x-ray and ultrasound of the right groin area was negative for any acute findings. Signs and symptoms presents as groin strain to the area. Rest area. Use [id number] Tylenol Motrin as needed for any discomfort. Use small amount of Percocet that is prescribed for breakthrough pain. Follow up with her primary care provider. Return emergency room for any worsening symptoms. Prescriptions: No Action clotrimazole [Lotrimin AF] 1 % cream 1 applictn TOP BID Qty: 30 RF: 1 oxycodone-acetaminophen [Percocet] 5-325 mg tablet 1 tab PO Q4-6H PRN (Reason: pain) Qty: 90 RF: 0 isosorbide mononitrate 60 MG tablet extended release 24 hr 60 mg PO QAM Qty: 90 RF: 1 pen needle, diabetic [Comfort EZ Pen [place]] 29 gauge x 1/2 needle .ROUTE .MEDSUPPLY Qty: 100 RF: 0 gabapentin [Neurontin] 300 mg capsule 300 mg PO BID Qty: 180 RF: 0 levothyroxine [Synthroid] 50 mcg tablet 50 mcg PO QAM Qty: 90 RF: 0 famotidine 20 mg tablet 20 mg PO BID Qty: 180 RF: 0 lisinopril 2.5 mg tablet 2.5 mg PO QAM Qty: 90 RF: 0 metformin [Glucophage] 500 mg tablet 500 mg PO BID Qty: 180 RF: 0 beclomethasone dipropionate [Qvar RediHaler] 40 mcg/actuation HFA aerosol breath activated 1 puff INHALATION BID Qty: 10.6 RF: 0 albuterol sulfate [Proventil HFA] 90 mcg/actuation HFA aerosol inhaler 1 - 2 puff INHALATION Q4HP PRN (Reason: asthma) Qty: 3 RF: 0 insulin glargine [Lantus Solostar U-100 Insulin] 100 unit/mL (3 mL) insulin pen 70 unit SUBCUT BID Qty: 15 RF: 0 pen needle, diabetic [Comfort EZ Pen [place]] 31 gauge x 5/16 needle .ROUTE .MEDSUPPLY Qty: 100 RF: 3 atorvastatin 40 mg tablet 40 mg PO QHS Qty: 90 RF: 0 citalopram [Celexa] 40 mg tablet 40 mg PO QDAY Qty: 90 RF: 0 gabapentin 300 mg Capsule 600 mg PO QPM RF: 0 insulin aspart U-100 [Novolog Flexpen U-100 Insulin] 100 UNIT/1 ML insulin pen 50 unit SQ TIDCC RF: 0 metoprolol tartrate 25 mg Tablet 25 mg PO BID Qty: 60 RF: 0 Referrals: Lakia Londono DO [Primary Care Provider] - <Josephine Lynn DO - Last Filed: 09/16/18 18:35> Cosign ED Attending Shayna Attestation: I was immediately available in the department for consultation. Documentation has been reviewed. I agree with assessment and plan.
--- NOTE | 2018-08-30 20:44 | DI.RAD.S_ITS ---
PROCEDURE: XR HIP W PEL IF DONE RT 2V INDICATIONS: pain and swelling to right groin area after ground level fall TECHNIQUE: AP pelvis with lateral view of the right hip. COMPARISON: None. FINDINGS: Bones: No displaced fractures or dislocations. Pelvic ring appears intact. No suspicious bony lesions. Soft tissues: The visualized bowel gas pattern is normal. There are diffuse vascular calcifications. IMPRESSION: 1. No displaced fracture or dislocation. Dictated by: Pasha Dunn M.D. on 08/30/2018 at 21:20 Approved by: Pasha Dunn M.D. on 08/30/2018 at 21:22
--- NOTE | 2018-08-30 20:44 | DI.US.S_ITS ---
PROCEDURE: US ARTERIAL DUPLEX LE RT INDICATIONS: PAIN TECHNIQUE: Color and pulse Doppler interrogation was performed of the right lower extremity arterial system, with image documentation. COMPARISON: None. FINDINGS: Common femoral artery: 96 cm/sec, with biphasic flow. Deep femoral artery: 97 cm/sec, with biphasic flow. Proximal superficial femoral artery: 77 cm/sec, with biphasic flow. Mid superficial femoral artery: 87 cm/sec, with biphasic flow. Distal superficial femoral artery: 95 cm/sec, with biphasic flow. Popliteal artery: 64 cm/sec, with biphasic flow. Posterior tibial artery: 50 cm/sec, with biphasic flow. Anterior tibial artery/dorsalis pedis: 76 cm/sec, with biphasic flow. IMPRESSION: 1. No evidence of focal stenosis in the right lower extremity arteries Dictated by: Pasha Dunn M.D. on 08/30/2018 at 22:09 Approved by: Pasha Dunn M.D. on 08/30/2018 at 22:14
[2018-08-30] MEDS: OXYCODONE/ACETAMINOPHEN 5/325 TABLET 1 TAB PO ×2 (21:44→22:48)
[2018-08-30] MEDS: OXYCODONE/APAP 5/325 PREPACK 1 BOTTLE MISC (22:48)
[2018-08-30 22:57] VITALS: BP 129/72; PULSE 65; RESP 16; TEMP 36.3; O2SAT 95
== END 2018-08-30 23:03 | disposition home or self-care (01) ==
PROVIDERS: Emergency Provider Nurse Practitioner Family; Family Provider Family Medicine; PCP Family Medicine
DX: S39.013A Strain of muscle, fascia and tendon of pelvis, initial encounter (principal); W18.2XXA Fall in (into) shower or empty bathtub, initial encounter
CPT/HCPCS: 73502; 93926; 99282; 99284

== ENCOUNTER → 2018-09-10 14:21 | Outpatient (CLI) | payer OTHER, MEDICARE, SELFPAY ==
[2018-08-31 16:25] VITALS: BMI 35.8
[2018-09-10 14:52] LABS: Add Manual Diff / Slide Review NO; Basophils Percent Auto 0.3 % (0-2); Eosinophils Percent Auto 2.2 % (2-4); Hematocrit 42.2 % (41-53); Hemoglobin 14.5 g/dL (13.5-17.5); Lymphocytes Percent Auto 24.2 % (25-40); Mean Corpuscular HGB Conc 34.4 % (30-36); Mean Corpuscular Volume 98.6 fL (80-100); Monocytes Percent Auto 6.8 % (3-14); Neutrophils Absolute Auto 5200 /uL (3000-5900); Neutrophils Percent Auto 66.5 % (50-75); Platelet Count 275 X10^3/uL (150-400); Red Blood Cell Count 4.28 X10^6/uL (4.5-5.9); Red Cell Distribution Width 13.1 % (11.6-14.8); White Blood Cell Count 7.8 X10^3/uL (4.5-11.0)
[2018-09-10 15:04] LABS: Hemoglobin A1C% w Est Avg Glu 10.5 % (4.0-6.0)
[2018-09-10 15:46] LABS: Alanine Aminotransferase 49 IU/L (21-72); Albumin 4.2 g/dL (3.5-5.0); Albumin Globulin Ratio 1.4 (1.0-2.8); Alkaline Phosphatase 71 U/L (38-126); Aspartate Aminotransferase 43 IU/L (17-59); BUN Creatinine Ratio 25.7 (6-22); Bilirubin Total 0.6 mg/dL (0.2-1.3); Blood Urea Nitrogen 18 mg/dL (9-20); Carbon Dioxide 31 mmol/L (22-32); Chloride 100 mmol/L (98-107); Cholesterol 141 mg/dL (140-199); Estimated Glomerular Filt Rate > 60.0 mL/min (>60); Globulin 2.9 g/dL (1.7-4.1); Glucose 193 mg/dL (80-110); HDL Cholesterol 45 mg/dL (40-60); HEMOLYSIS < 15 (0-50); LDL Cholesterol Calculated 71 mg/dL (<100); Potassium 5.1 mmol/L (3.4-5.1); Sodium 141 mmol/L (137-145); Total Protein 7.1 g/dL (6.3-8.2); Triglycerides 126 mg/dL (35-150)
== END ==
PROVIDERS: Family Provider Family Medicine; PCP Family Medicine; Visit Provider Family Medicine
DX: E11.9 Type 2 diabetes mellitus without complications (principal); I10 Essential (primary) hypertension
CPT/HCPCS: 36415; 80053; 80061; 83036; 85025

== ENCOUNTER 2018-11-23 04:45 | Emergency (ER) | payer OTHER, MEDICARE, SELFPAY ==
[2018-09-14 15:47] VITALS: BMI 35.8
[2018-11-23] VITALS (12 sets, daily range): BP systolic 120–171; BP diastolic 56–87; PULSE 81–98; RESP 10–17; TEMP 36.6–36.8; O2SAT 96–99
--- NOTE | 2018-11-23 04:48 | ED_ITS ---
HPI - Chest Pain <Josephine Lynn, DO - Last Filed: 11/23/18 20:57> General Chief Complaint: Chest Pain Stated Complaint: Chest Pain Time Seen by Provider: 11/23/18 04:47 Source: patient and EMS Mode of arrival: EMS Limitations: no limitations History of Present Illness HPI narrative: Patient is a 63-year-old male who presents with chest pain. He has known coronary artery disease with stents placed in both 2006 and 2009 procedures were at [facility]. Today he states his chest pain kept him from sleeping it has been ongoing for a number of hours. He received 3 nitroglycerin prior to arrival with minimal relief. According to records morphine is what helps the most. His chest pain he describes as nonradiating pressure center of his chest. He also feels like he is short of breath. The pain seems to be quite intense. MD complaint: chest pain Onset (ago): hour(s) Duration: constant Onset: during rest Relieving factors: nothing Exacerbating factors: nothing Related Data Home Medications Medication Instructions Recorded Confirmed atorvastatin 40 mg PO BEDTIME 11/23/18 11/23/18 beclomethasone dipropionate [Qvar 1 puff INHALATION PRN PRN 11/23/18 11/23/18 RediHaler] citalopram [Celexa] 40 mg PO DAILY 11/23/18 11/23/18 gabapentin 300 mg PO BID 11/23/18 11/23/18 insulin aspart U-100 [Novolog 30 - 50 units SUBCUT BIDWM 11/23/18 11/23/18 Flexpen U-100 Insulin] insulin glargine [Lantus Solostar 70 units SUBCUT BID 11/23/18 11/23/18 U-100 Insulin] isosorbide mononitrate 60 mg PO QAM 11/23/18 11/23/18 Previous Rx's Medication Instructions Recorded pen needle, diabetic 29 gauge x #100 each 03/11/18 1/2 clotrimazole 1 % topical cream 1 applictn TOP BID #30 gram 05/14/18 famotidine 20 mg tablet 20 mg PO BID #180 tab 07/16/18 lisinopril 2.5 mg tablet 2.5 mg PO QAM #90 tab 07/16/18 albuterol sulfate HFA 90 1 - 2 puff INHALATION Q4HP PRN #3 11/08/18 mcg/actuation aerosol inhaler inh pen needle, diabetic 31 gauge x #100 each 09/09/1803/17 levothyroxine 50 mcg tablet 50 mcg PO QAM #90 tab 11/09/18 metformin 500 mg tablet 500 mg PO BID #180 tab 11/09/18 metoprolol tartrate 25 mg tablet 25 mg PO BID #180 tab 11/09/18 Allergies Allergy/AdvReac Type Severity Reaction Status Date / Time adhesive Allergy Mild REDNESS/ITC Verified 10/11/18 15:19 HINESS Review of Systems <Josephine Lynn DO - Last Filed: 11/23/18 20:57> Review of Systems ROS Unobtainable: All systems reviewed & are unremarkable except as noted in HPI and below Constitutional Denies chills, Denies fever(s), Denies lethargy and Denies weakness Eyes Denies change in vision, Denies eye discharge, Denies irritation and Denies loss of vision Cardiovascular Reports chest pain, Reports dyspnea and Denies dyspnea on exertion Respiratory Denies cough, Reports dyspnea, Denies dyspnea on exertion and Denies wheezing Musculoskeletal Denies back pain, Denies muscle weakness, Denies numbness and Denies tingling Integumentary/Breasts Denies pruritus, Denies erythema, Denies rash and Denies wounds Neurologic Denies loss of vision, Denies numbness, Denies tingling and Denies weakness Allergic/Immunologic Denies wheezing Exam <Josephine Lynn DO - Last Filed: 11/23/18 20:57> Initial Vital Signs Initial Vital Signs: Vital Signs Temperature 98.3 F 11/23/18 04:51 Pulse Rate 88 11/23/18 04:51 Respiratory Rate 10 L 11/23/18 04:51 Blood Pressure 139/68 11/23/18 04:51 Pulse Oximetry 98 11/23/18 04:51 GENERAL: Middle-aged male appears in pain non diaphoretic HEENT: Head atraumatic,EOMI, pupils reactive, CARDIOVASCULAR: Regular rate and rhythm without murmurs, rubs or gallops. RESPIRATORY: Breath sounds equal bilaterally, no wheezes rales or rhonchi. ABDOMEN: Soft, nontender. Normoactive bowel sounds all 4 quadrants. No guarding or rebound. EXTREMITIES: Normal range of motion, no clubbing or edema. Neurovascularly intact NEUROLOGICAL: Alert and oriented x4.Normal gait and speech. SKIN: Warm, dry, no laceration, no petechiae, no rashes or lesions. <DO Dionna Power Last Filed: 11/23/18 08:14> Initial Vital Signs Initial Vital Signs: Vital Signs Temperature 98.3 F 11/23/18 04:51 Pulse Rate 88 11/23/18 04:51 Respiratory Rate 10 L 11/23/18 04:51 Blood Pressure 139/68 11/23/18 04:51 Pulse Oximetry 98 11/23/18 04:51 <Neri Burt DO - Last Filed: 11/23/18 08:14> HEART Score Heart Score history: Slightly Suspicious Heart Score EKG: Normal Heart Score Age: > or = 65 years old Heart Score risk factors: > 3 risk factors or hx of atherosclerotic disease Heart Score troponin: < or = to normal limit Heart Score Total: 4 Course <Josephine Lynn DO - Last Filed: 11/23/18 20:57> Orders Ordered: ED Orders 11/23/18 12:05 Urine Microscopic Stat Discontinued Medications Aspirin (Aspirin Chew) 324 mg PO NOW ONE Stop: 11/23/18 04:50 Last Admin: 11/23/18 05:01 Dose: 324 mg Al Hydrox/Mg Hydrox/Simethicone 20 ml/ Lidocaine HCl 15 ml 0 ml PO NOW ONE Stop: 11/23/18 09:22 Last Admin: 11/23/18 09:35 Dose: 45 ml Sodium Chloride (Normal Saline 0.9%) 1,000 mls @ 150 mls/hr IV CONT LUCIANO Last Infusion: 11/23/18 06:21 Dose: 0 mls/hr Admin: 11/23/18 04:59 Dose: 150 mls/hr Morphine Sulfate (Morphine) 4 mg IV NOW ONE Stop: 11/23/18 04:50 Last Admin: 11/23/18 05:01 Dose: 4 mg Morphine Sulfate (Morphine) 4 mg IV NOW ONE Stop: 11/23/18 06:35 Last Admin: 11/23/18 06:38 Dose: 4 mg Morphine Sulfate (Morphine) 4 mg IV NOW ONE Stop: 11/23/18 07:52 Last Admin: 11/23/18 08:09 Dose: 4 mg Morphine Sulfate (Morphine) 4 mg IV NOW ONE Stop: 11/23/18 09:17 Last Admin: 11/23/18 10:32 Dose: 4 mg Morphine Sulfate (Morphine) 4 mg IV NOW ONE Stop: 11/23/18 13:22 Last Admin: 11/23/18 13:22 Dose: 4 mg Nicotine (Nicoderm) 21 mg TOP NOW ONE Stop: 11/23/18 07:54 Last Admin: 11/23/18 08:08 Dose: 21 mg Nitroglycerin (Nitrostat) 0.4 mg SL [id number] PRN PRN Reason: Chest Pain Last Admin: 11/23/18 06:06 Dose: 0.4 mg Admin: 11/23/18 05:58 Dose: 0.4 mg Nitroglycerin (Nitro-Bid) 0.5 inch TOP NOW ONE Stop: 11/23/18 09:22 Last Admin: 11/23/18 09:36 Dose: 0.5 inch Ondansetron HCl (Zofran) 4 mg IV NOW ONE Stop: 11/23/18 05:39 Last Admin: 11/23/18 05:40 Dose: 4 mg Ondansetron HCl (Zofran) 4 mg IV NOW ONE Stop: 11/23/18 07:38 Last Admin: 11/23/18 07:48 Dose: 4 mg Vital Signs - 8 hr 11/23/18 13:30 Pulse Rate 91 H Respiratory Rate 13 Blood Pressure [Right Arm] 149/76 H Pulse Oximetry 96 <Neri Burt DO - Last Filed: 11/23/18 08:14> Orders Ordered: ED Orders 11/23/18 12:05 Urine Microscopic Stat Discontinued Medications Aspirin (Aspirin Chew) 324 mg PO NOW ONE Stop: 11/23/18 04:50 Last Admin: 11/23/18 05:01 Dose: 324 mg Al Hydrox/Mg Hydrox/Simethicone 20 ml/ Lidocaine HCl 15 ml 0 ml PO NOW ONE Stop: 11/23/18 09:22 Last Admin: 11/23/18 09:35 Dose: 45 ml Sodium Chloride (Normal Saline 0.9%) 1,000 mls @ 150 mls/hr IV CONT LUCIANO Last Infusion: 11/23/18 06:21 Dose: 0 mls/hr Admin: 11/23/18 04:59 Dose: 150 mls/hr Morphine Sulfate (Morphine) 4 mg IV NOW ONE Stop: 11/23/18 04:50 Last Admin: 11/23/18 05:01 Dose: 4 mg Morphine Sulfate (Morphine) 4 mg IV NOW ONE Stop: 11/23/18 06:35 Last Admin: 11/23/18 06:38 Dose: 4 mg Morphine Sulfate (Morphine) 4 mg IV NOW ONE Stop: 11/23/18 07:52 Last Admin: 11/23/18 08:09 Dose: 4 mg Morphine Sulfate (Morphine) 4 mg IV NOW ONE Stop: 11/23/18 09:17 Last Admin: 11/23/18 10:32 Dose: 4 mg Morphine Sulfate (Morphine) 4 mg IV NOW ONE Stop: 11/23/18 13:22 Last Admin: 11/23/18 13:22 Dose: 4 mg Nicotine (Nicoderm) 21 mg TOP NOW ONE Stop: 11/23/18 07:54 Last Admin: 11/23/18 08:08 Dose: 21 mg Nitroglycerin (Nitrostat) 0.4 mg SL [id number] PRN PRN Reason: Chest Pain Last Admin: 11/23/18 06:06 Dose: 0.4 mg Admin: 11/23/18 05:58 Dose: 0.4 mg Nitroglycerin (Nitro-Bid) 0.5 inch TOP NOW ONE Stop: 11/23/18 09:22 Last Admin: 11/23/18 09:36 Dose: 0.5 inch Ondansetron HCl (Zofran) 4 mg IV NOW ONE Stop: 11/23/18 05:39 Last Admin: 11/23/18 05:40 Dose: 4 mg Ondansetron HCl (Zofran) 4 mg IV NOW ONE Stop: 11/23/18 07:38 Last Admin: 11/23/18 07:48 Dose: 4 mg Vital Signs - 8 hr 11/23/18 13:30 Pulse Rate 91 H Respiratory Rate 13 Blood Pressure [Right Arm] 149/76 H Pulse Oximetry 96 MDM - Chest Pain <Josephine Lynn DO - Last Filed: 11/23/18 20:57> Lab Data Attestation: I reviewed the patient's lab results. Result diagrams: 11/23/18 04:30 11/23/18 05:19 Lab Results 11/23/18 11/23/18 11/23/18 Range/Units 04:30 05:19 07:25 WBC 8.3 (4.5-11.0) X10^3/uL RBC 4.25 L (4.5-5.9) X10^6/uL Hgb 14.3 (13.5-17.5) g/dL Hct 41.5 (41-53) % MCV 97.7 (80-100) fL MCH 33.6 (26-34) PG MCHC 34.4 (30-36) % RDW 13.3 (11.6-14.8) % Plt Count 228 (150-400) X10^3/uL Neut % (Auto) 67.3 (50-75) % Lymph % (Auto) 23.4 L (25-40) % [place] % (Auto) 6.1 (3-14) % Eos % (Auto) 1.4 L (2-4) % Baso % (Auto) 1.8 (0-2) % Neut # (Auto) 5600 (2111-1481) /uL Lymph # (Auto) 1900 (8478-5701) /uL [place] # (Auto) 500 (0-900) /uL Eos # (Auto) 100 (0-450) /uL Baso # (Auto) 100 (0-100) /uL Sodium 135 L (137-145) mmol/L Potassium 4.0 (3.4-5.1) mmol/L Chloride 103 (98-107) mmol/L Carbon Dioxide 21 L (22-32) mmol/L BUN 14 (9-20) mg/dL Creatinine 0.70 (0.66-1.25) mg/dL Estimated GFR > 60.0 (>60) mL/min BUN/Creatinine Ratio 20.0 (6-22) Glucose 224 H (80-110) mg/dL Calcium 8.0 L (8.4-10.2) mg/dL Total Bilirubin 0.4 (0.2-1.3) mg/dL AST 35 (17-59) IU/L ALT 44 (21-72) IU/L Alkaline Phosphatase 66 (38-126) U/L Total Creatine Kinase 126 (55-170) U/L CK-MB (CK-2) 2.92 H (<2.37) ng/mL CK-MB (CK-2) Rel Index 2.3 (1.5-5.0) % Troponin I < 0.012 < 0.012 (0.01-0.034) ng/mL B-Natriuretic Peptide 186 H (<100) Total Protein 6.9 (6.3-8.2) g/dL Albumin 3.9 (3.5-5.0) g/dL Globulin 3.0 (1.7-4.1) g/dL Albumin/Globulin Ratio 1.3 (1.0-2.8) Lipase 268 (23-300) U/L Urine RBC (0-5/HPF) Urine WBC (0-5/HPF) Ur Squamous Epith Cells Urine Bacteria (None) Ur Culture Indicated? 11/23/18 Range/Units 12:05 WBC (4.5-11.0) X10^3/uL RBC (4.5-5.9) X10^6/uL Hgb (13.5-17.5) g/dL Hct (41-53) % MCV (80-100) fL MCH (26-34) PG MCHC (30-36) % RDW (11.6-14.8) % Plt Count (150-400) X10^3/uL Neut % (Auto) (50-75) % Lymph % (Auto) (25-40) % [place] % (Auto) (3-14) % Eos % (Auto) (2-4) % Baso % (Auto) (0-2) % Neut # (Auto) (2515-9059) /uL Lymph # (Auto) (8081-3273) /uL [place] # (Auto) (0-900) /uL Eos # (Auto) (0-450) /uL Baso # (Auto) (0-100) /uL Sodium (137-145) mmol/L Potassium (3.4-5.1) mmol/L Chloride (98-107) mmol/L Carbon Dioxide (22-32) mmol/L BUN (9-20) mg/dL Creatinine (0.66-1.25) mg/dL Estimated GFR (>60) mL/min BUN/Creatinine Ratio (6-22) Glucose (80-110) mg/dL Calcium (8.4-10.2) mg/dL Total Bilirubin (0.2-1.3) mg/dL AST (17-59) IU/L ALT (21-72) IU/L Alkaline Phosphatase (38-126) U/L Total Creatine Kinase (55-170) U/L CK-MB (CK-2) (<2.37) ng/mL CK-MB (CK-2) Rel Index (1.5-5.0) % Troponin I (0.01-0.034) ng/mL B-Natriuretic Peptide (<100) Total Protein (6.3-8.2) g/dL Albumin (3.5-5.0) g/dL Globulin (1.7-4.1) g/dL Albumin/Globulin Ratio (1.0-2.8) Lipase (23-300) U/L Urine RBC 0-1/hpf (0-5/HPF) Urine WBC 0-1/hpf (0-5/HPF) Ur Squamous Epith Cells 0-1 /hpf Urine Bacteria None seen (None) Ur Culture Indicated? Cult not indicated Urine Dip Bedside Urine Glucose 250 mg/dl Bedside Urine Bilirubin - Negative Bedside Urine Ketone - Negative Urine Specific Endeavor 1.025 Bedside Urine Occult Blood +/- Bedside Urine pH 6.0 Bedside Urine Protein ++ 100 Bedside Urine Urobilinogen +/- 1mg Bedside Urine Nitrite - Negative Bedside Urine Leukocytes - Negative Esterase Imaging Data Chest x-ray: Attestation: I personally reviewed and interpreted this imaging study as follows: My impression: No acute cardiopulmonary process ECG Data Attestation: I personally reviewed and interpreted this ECG as follows: Prior ECG tracings: available for review Interpretation: Normal sinus rhythm rate [address] changes no T-wave inversions similar to previous EKGs DE interval 183 EKG 2.: Normal sinus rhythm rate [address] changes no T-wave inversion EKG 3. Normal sinus rhythm rate 80 similar to previous MDM Narrative Medical decision making narrative: Patient at the nitrous prior to arrival. He is given some morphine which helped a lot with pain. I have reviewed his records he has had a nuclear stress test in March 2018. He does have a moderate size mild to moderate decreased perfusion of inferior wall inferior apex with slight reversibility of the mid inferior segment. Unfortunately this study does not have prone images. Otherwise it looks stable from previous stress test in 2017 in 2016. The patient's pain again began to start. Nitro was given without any relief. He is given a 2nd dose of morphine. patient signed out to day shift provider waiting for repeat troponin will likely need to be transferred to a facility with cardiac catheterization. This is his 2nd episode in under year with severe chest pain. <Neri Burt DO - Last Filed: 11/23/18 08:14> Medical Records Data Attestation: I reviewed the patient's medical records. Lab Data Attestation: I reviewed the patient's lab results. Lab Results 11/23/18 11/23/18 11/23/18 Range/Units 04:30 05:19 07:25 WBC 8.3 (4.5-11.0) X10^3/uL RBC 4.25 L (4.5-5.9) X10^6/uL Hgb 14.3 (13.5-17.5) g/dL Hct 41.5 (41-53) % MCV 97.7 (80-100) fL MCH 33.6 (26-34) PG MCHC 34.4 (30-36) % RDW 13.3 (11.6-14.8) % Plt Count 228 (150-400) X10^3/uL Neut % (Auto) 67.3 (50-75) % Lymph % (Auto) 23.4 L (25-40) % [place] % (Auto) 6.1 (3-14) % Eos % (Auto) 1.4 L (2-4) % Baso % (Auto) 1.8 (0-2) % Neut # (Auto) 5600 (2741-7805) /uL Lymph # (Auto) 1900 (0814-9180) /uL [place] # (Auto) 500 (0-900) /uL Eos # (Auto) 100 (0-450) /uL Baso # (Auto) 100 (0-100) /uL Sodium 135 L (137-145) mmol/L Potassium 4.0 (3.4-5.1) mmol/L Chloride 103 (98-107) mmol/L Carbon Dioxide 21 L (22-32) mmol/L BUN 14 (9-20) mg/dL Creatinine 0.70 (0.66-1.25) mg/dL Estimated GFR > 60.0 (>60) mL/min BUN/Creatinine Ratio 20.0 (6-22) Glucose 224 H (80-110) mg/dL Calcium 8.0 L (8.4-10.2) mg/dL Total Bilirubin 0.4 (0.2-1.3) mg/dL AST 35 (17-59) IU/L ALT 44 (21-72) IU/L Alkaline Phosphatase 66 (38-126) U/L Total Creatine Kinase 126 (55-170) U/L CK-MB (CK-2) 2.92 H (<2.37) ng/mL CK-MB (CK-2) Rel Index 2.3 (1.5-5.0) % Troponin I < 0.012 < 0.012 (0.01-0.034) ng/mL B-Natriuretic Peptide 186 H (<100) Total Protein 6.9 (6.3-8.2) g/dL Albumin 3.9 (3.5-5.0) g/dL Globulin 3.0 (1.7-4.1) g/dL Albumin/Globulin Ratio 1.3 (1.0-2.8) Lipase 268 (23-300) U/L Urine RBC (0-5/HPF) Urine WBC (0-5/HPF) Ur Squamous Epith Cells Urine Bacteria (None) Ur Culture Indicated? 11/23/18 Range/Units 12:05 WBC (4.5-11.0) X10^3/uL RBC (4.5-5.9) X10^6/uL Hgb (13.5-17.5) g/dL Hct (41-53) % MCV (80-100) fL MCH (26-34) PG MCHC (30-36) % RDW (11.6-14.8) % Plt Count (150-400) X10^3/uL Neut % (Auto) (50-75) % Lymph % (Auto) (25-40) % [place] % (Auto) (3-14) % Eos % (Auto) (2-4) % Baso % (Auto) (0-2) % Neut # (Auto) (3424-1705) /uL Lymph # (Auto) (9866-9498) /uL [place] # (Auto) (0-900) /uL Eos # (Auto) (0-450) /uL Baso # (Auto) (0-100) /uL Sodium (137-145) mmol/L Potassium (3.4-5.1) mmol/L Chloride (98-107) mmol/L Carbon Dioxide (22-32) mmol/L BUN (9-20) mg/dL Creatinine (0.66-1.25) mg/dL Estimated GFR (>60) mL/min BUN/Creatinine Ratio (6-22) Glucose (80-110) mg/dL Calcium (8.4-10.2) mg/dL Total Bilirubin (0.2-1.3) mg/dL AST (17-59) IU/L ALT (21-72) IU/L Alkaline Phosphatase (38-126) U/L Total Creatine Kinase (55-170) U/L CK-MB (CK-2) (<2.37) ng/mL CK-MB (CK-2) Rel Index (1.5-5.0) % Troponin I (0.01-0.034) ng/mL B-Natriuretic Peptide (<100) Total Protein (6.3-8.2) g/dL Albumin (3.5-5.0) g/dL Globulin (1.7-4.1) g/dL Albumin/Globulin Ratio (1.0-2.8) Lipase (23-300) U/L Urine RBC 0-1/hpf (0-5/HPF) Urine WBC 0-1/hpf (0-5/HPF) Ur Squamous Epith Cells 0-1 /hpf Urine Bacteria None seen (None) Ur Culture Indicated? Cult not indicated Urine Dip Bedside Urine Glucose 250 mg/dl Bedside Urine Bilirubin - Negative Bedside Urine Ketone - Negative Urine Specific [place] 1.025 Bedside Urine Occult Blood +/- Bedside Urine pH 6.0 Bedside Urine Protein ++ 100 Bedside Urine Urobilinogen +/- 1mg Bedside Urine Nitrite - Negative Bedside Urine Leukocytes - Negative Esterase ECG Data Attestation: I personally reviewed and interpreted this ECG as follows: Prior ECG tracings: not available for review Interpretation: EKG 1. Timed 0445 hr Sinus rhythm Ventricular rate of 93 Normal axis Normal QRS Normal QTC No ST T wave changes EKG 2. Time 0515 hr Sinus rhythm Unchanged from 1st EKG EKG 3. Time 0554 hr Sinus rhythm Unchanged from prior EKG MDM Narrative Medical decision making narrative: 0715 Received turned over from night provider. Perform my own history and physical exam. Patient with chest pain that started last evening. He did receive an aspirin. Nitro did not help any of his pain. Received several doses of morphine which did seem to improve his symptoms somewhat however he states that did not take his symptoms completely away. He has had a prior MS with stent placement. He states this pain feels similar to that however not as bad. Was also quite nauseous. Patient is an insulin-dependent diabetic. He was hyperglycemic however not in DKA. Patient was given a nicotine patch for his cravings. Has a heart score of 4. EKG shows no signs ischemia. Troponins negative x2. Given his significant cardiac history and his presenting symptoms I do feel like admission for evaluation by Cardiology is warranted. I discussed the case with Dr. Cotton at [facility] and telling him who accepts the patient in transport. I discussed the transport with the patient who expressed understanding and agreement. Patient is stable for transport. Discharge Plan Departure Patient Disposition: [facility] Clinical Impression: Chest pain, Hyperglycemia, Nicotine dependence Discharge Date/Time: 11/23/18 13:15 Interventions: ED Discharge Assessment Last Done: 11/23/18 12:54 Prescriptions: No Action clotrimazole [Lotrimin AF] 1 % cream 1 applictn TOP BID Qty: 30 RF: 1 pen needle, diabetic [Comfort EZ Pen [place]] 29 gauge x 1/2 needle .ROUTE .MEDSUPPLY Qty: 100 RF: 0 famotidine 20 mg tablet 20 mg PO BID Qty: 180 RF: 0 lisinopril 2.5 mg tablet 2.5 mg PO QAM Qty: 90 RF: 0 albuterol sulfate [Proventil HFA] 90 mcg/actuation HFA aerosol inhaler 1 - 2 puff INHALATION Q4HP PRN (Reason: asthma) Qty: 3 RF: 0 pen needle, diabetic [Comfort EZ Pen [place]] 31 gauge x 5/16 needle .ROUTE .MEDSUPPLY Qty: 100 RF: 3 levothyroxine [Synthroid] 50 mcg tablet 50 mcg PO QAM Qty: 90 RF: 0 metformin [Glucophage] 500 mg tablet 500 mg PO BID Qty: 180 RF: 0 metoprolol tartrate 25 mg tablet 25 mg PO BID Qty: 180 RF: 0 insulin aspart U-100 [Novolog Flexpen U-100 Insulin] 100 unit/mL insulin pen 30 - 50 units subcut BIDWM RF: 0 insulin glargine [Lantus Solostar U-100 Insulin] 100 unit/mL (3 mL) insulin pen 70 units subcut BID RF: 0 beclomethasone dipropionate [Qvar RediHaler] 40 mcg/actuation HFA aerosol breath activated 1 puff Inhalation PRN PRN (Reason: Shortness Of Breath) RF: 0 atorvastatin 40 mg tablet 40 mg PO BEDTIME RF: 0 citalopram [Celexa] 40 mg tablet 40 mg PO DAILY RF: 0 isosorbide mononitrate 60 MG tablet extended release 24 hr 60 mg PO QAM RF: 0 gabapentin 300 mg capsule 300 mg PO BID RF: 0
--- NOTE | 2018-11-23 04:49 | DI.RAD.S_ITS ---
PROCEDURE: XR CHEST 1V INDICATIONS: chest pain TECHNIQUE: One view of the chest was acquired. COMPARISON: [facility], CR, XR CHEST 1V, 03/30/2018, 9:19. FINDINGS: Surgical changes and devices: None. Lungs and pleura: No pleural effusions or pneumothorax. Lungs are clear. Mediastinum: Mediastinal contours appear normal. Heart size is normal. Bones and chest wall: No suspicious bony lesions. Overlying soft tissues appear unremarkable. There is a surgical anchor in the left humeral head. IMPRESSION: No acute cardiopulmonary disease. Dictated by: Hui Marie M.D. on 11/23/2018 at 9:30 Approved by: Hui Marie M.D. on 11/23/2018 at 9:30
[2018-11-23] MEDS: SODIUM CHLORIDE 0.9% 1,000 ML 150 ML IV (04:59)
[2018-11-23 05:00] LABS: Add Manual Diff / Slide Review NO; Basophils Absolute Auto 100 /uL (0-100); Basophils Percent Auto 1.8 % (0-2); Eosinophils Absolute Auto 100 /uL (0-450); Eosinophils Percent Auto 1.4 % (2-4); Hematocrit 41.5 % (41-53); Hemoglobin 14.3 g/dL (13.5-17.5); Lymphocytes Absolute Auto 1900 /uL (1100-4500); Lymphocytes Percent Auto 23.4 % (25-40); Mean Corpuscular HGB Conc 34.4 % (30-36); Mean Corpuscular Hemoglobin 33.6 PG (26-34); Mean Corpuscular Volume 97.7 fL (80-100); Monocytes Absolute Auto 500 /uL (0-900); Monocytes Percent Auto 6.1 % (3-14); Neutrophils Absolute Auto 5600 /uL (1500-7000); Neutrophils Percent Auto 67.3 % (50-75); Platelet Count 228 X10^3/uL (150-400); Red Blood Cell Count 4.25 X10^6/uL (4.5-5.9); Red Cell Distribution Width 13.3 % (11.6-14.8); White Blood Cell Count 8.3 X10^3/uL (4.5-11.0)
[2018-11-23] MEDS: ASPIRIN 81 MG TAB 324 MG PO (05:01)
[2018-11-23] MEDS: MORPHINE 4 MG/ML INJ IV ×5 (05:01→13:22)
[2018-11-23 05:22] LABS: B Type Natriuretic Peptide 186 (<100)
[2018-11-23 05:36] LABS: Alanine Aminotransferase 44 IU/L (21-72); Albumin 3.9 g/dL (3.5-5.0); Albumin Globulin Ratio 1.3 (1.0-2.8); Alkaline Phosphatase 66 U/L (38-126); Aspartate Aminotransferase 35 IU/L (17-59); Bilirubin Total 0.4 mg/dL (0.2-1.3); Blood Urea Nitrogen 14 mg/dL (9-20); Carbon Dioxide 21 mmol/L (22-32); Chloride 103 mmol/L (98-107); Creatine Kinase 126 U/L (55-170); Estimated Glomerular Filt Rate > 60.0 mL/min (>60); Glucose 224 mg/dL (80-110); HEMOLYSIS < 15 (0-50); Lipase 268 U/L (23-300); Sodium 135 mmol/L (137-145); Total Protein 6.9 g/dL (6.3-8.2)
[2018-11-23] MEDS: ONDANSETRON 4 MG/2 ML INJ IV ×2 (05:40→07:48)
[2018-11-23 05:48] LABS: Troponin I < 0.012 ng/mL (0.01-0.034)
[2018-11-23 05:52] LABS: CKMB % Relative Index 2.3 % (1.5-5.0); Creatine Kinase MB 2.92 ng/mL (<2.37)
--- NOTE | 2018-11-23 05:54 | PC.NURSE ---
Pt reports his chest pain is suddenly back 6/10, Dr Lynn at bedside. Verbal order received for nitro SL. Repeat EKG in progress.
[2018-11-23] MEDS: NITROGLYCERIN 0.4 MG SL TAB SL ×2 (05:58→06:06)
--- NOTE | 2018-11-23 06:22 | PC.NURSE ---
Pt reported increasing chest pain 06/11. Dr Lynn notified, orders received for SL nitro x 3. After 2 doses 5 minutes apart, pt reported I feel like crap. Nauseated and lightheaded. BP's 126/80. Pt reports feeling better after coughing.
[2018-11-23 08:00] LABS: Troponin I < 0.012 ng/mL (0.01-0.034)
[2018-11-23] MEDS: NICOTINE 21 MG PATCH TOP (08:08)
--- NOTE | 2018-11-23 08:35 | PC.NURSE ---
)800 - Report from night RN. Pt awaiting disposition c/o nausea and increasing CP and a desire to smoke. MD alerted, have medicated patient accordingly. Pt. expressing wish to have ice chips but continues to retch so none given yet. will provide a couple just to wet mouth from taste. Pt. positioned for comfort. will continue to answer call lights
[2018-11-23] MEDS: MAG HYDROX/ALUMINUM/SIMETH SUS 20 ML, LIDOCAINE VISCOUS 2% 15 ML PO (09:35)
[2018-11-23] MEDS: NITROGLYCERIN OINT 1 INCH/GM OINT...G. 0.5 INCH TOP (09:36)
[2018-11-23 12:51] LABS: Bacteria Urine None Seen
[2018-11-23 13:11] LABS: Culture Indicated Urine Cult Not Indicated; RBC Urine 0-1/HPF (0-5/HPF); Squamous Epithelial Cell Urine 0-1 /HPF; WBC Urine 0-1/HPF (0-5/HPF)
== END 2018-11-23 13:15 | disposition short-term general hospital (02) ==
PROVIDERS: Emergency Medicine; Emergency Provider Emergency Medicine; Family Provider Family Medicine; PCP Family Medicine
DX: R07.89 Other chest pain (principal); R73.9 Hyperglycemia, unspecified; F17.200 Nicotine dependence, unspecified, uncomplicated
CPT/HCPCS: 36415; 71045; 80053; 81003; 81015; 82550; 82553; 83690; 83880; 84484; 85025; 93005; 93010; 96374; 96376; 99284; 99285; J2270; J2405

== ENCOUNTER 2018-12-22 03:28 | Emergency (ER) | payer OTHER, MEDICARE, SELFPAY ==
[2018-09-14 15:47] VITALS: BMI 35.8
[2018-12-22] VITALS (10 sets, daily range): BP systolic 106–153; BP diastolic 54–77; PULSE 73–88; RESP 16–18; TEMP 36.8; O2SAT 93–97; BMI 34.7
--- NOTE | 2018-12-22 03:38 | DI.CT.S_ITS ---
PROCEDURE: CT LUMBAR SPINE WO CON INDICATIONS: fall with severe midline back pain TECHNIQUE: Noncontrast 3 mm thick sections acquired from the T12 level to the sacrum. Sagittal and coronal reformats were constructed. For radiation dose reduction, the following was used: automated exposure control. COMPARISON: None. FINDINGS: Image quality: Excellent. Bones: There is normal bony alignment. No acute vertebral body compression fractures. No suspicious lytic or blastic bony lesions. Central spinal caliber is of normal overall caliber. No pars defects. There is mild to moderate degenerative disc disease along the thoracolumbar junction and lumbosacral spine but no fracture or traumatic subluxation is seen. Soft tissues: No retroperitoneal masses or hematomas. Visualized aorta is normal in caliber. IMPRESSION: No acute disease, mild to moderate degenerative disc disease incidentally noted. By this examination no fracture or traumatic subluxation appears present. Dictated by: Parviz Waite M.D. on 12/22/2018 at 8:22 Approved by: Parviz Waite M.D. on 12/22/2018 at 8:24
--- NOTE | 2018-12-22 03:38 | DI.CT.S_ITS ---
PROCEDURE: CT CHEST WO CON INDICATIONS: Shortness of breath, cough, severe mid thoracic pain after fall TECHNIQUE: Noncontrast 5 mm thick sections acquired from the pulmonary apices to the posterior costophrenic angles. 7 mm thick coronal and sagittal MIP reformats were then acquired. For radiation dose reduction, the following was used: automated exposure control, adjustment of mA and/or kV according to patient size. COMPARISON: None. FINDINGS: Image quality: Excellent. Lungs and pleura: No acute air space opacities. No pleural effusions or pneumothorax. Central and peripheral airways are patent and normal in caliber. Mediastinum: Heart size is normal. No pericardial effusion. No mediastinal adenopathy by size criteria. Thoracic aorta and central pulmonary arteries are normal in size. Esophagus is normal in caliber. No hiatal hernia. Bones and chest wall: No suspicious bony lesions. Note is made of bridging osteophytes along the anterior aspect of the thoracic spine, to the degree that a degree of ankylosis appears present. The morphology of the bridging osteophytes does not suggest likelihood of ankylosing spondylitis, however. 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 No vertebral body compression fractures. No axillary or supraclavicular adenopathy by size criteria. Thyroid gland is not well-seen. Abdomen: Visualized upper abdominal solid organs and bowel loops appear normal in the absence of contrast. IMPRESSION: Bridging osteophytes along the thoracic spine show no sign of disruption. 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 Please note that the reduction of normal distributed mobility along the thoracic spine in this circumstance it does predispose to spine fractures. If unusual symptoms persist a hidden fracture may be present and in that circumstance MR scanning would be recommended for most accurate diagnosis. Dictated by: Parviz Waite M.D. on 12/22/2018 at 8:19 Approved by: Parviz Waite M.D. on 12/22/2018 at 8:22
--- NOTE | 2018-12-22 03:39 | DI.CT.S_ITS ---
PROCEDURE: CT CERVICAL SPINE WO CON INDICATIONS: fall with neck/back pain TECHNIQUE: Noncontrast 3 mm thick sections acquired from the skull base to the T4 level. Sagittal and coronal reformats were then constructed. For radiation dose reduction, the following was used: automated exposure control, adjustment of mA and/or kV according to patient size. COMPARISON: None. FINDINGS: Image quality: Excellent. Bones: No fractures or dislocations. Visualized superior ribs are intact. Spine degenerative disc disease and facet arthropathy. Soft tissues: Prevertebral soft tissues are normal in thickness. No paravertebral hematomas. No apical pneumothoraces. IMPRESSION: No fracture. No acute osseous lesion. If symptoms and/or clinical suspicion for pathology persists, evaluation with MRI may be helpful for further assessment. Dictated by: Cesia Cooper MD, PhD on 12/22/2018 at 10:42 Approved by: Cesia Cooper MD, PhD on 12/22/2018 at 10:47
--- NOTE | 2018-12-22 03:39 | DI.CT.S_ITS ---
PROCEDURE: CT HEAD/BRAIN WO CON INDICATIONS: fall with head injury, etoh TECHNIQUE: Noncontrast 4.5 mm thick angled axial sections acquired from the foramen magnum to the vertex, with coronal and sagittal reformats. For radiation dose reduction, the following was used: automated exposure control, adjustment of mA and/or kV according to patient size. COMPARISON: None. FINDINGS: Image quality: Excellent. CSF spaces: Basal cisterns are patent. No extra-axial fluid collections. The ventricles are symmetric in size and shape. Brain: No intracranial bleeds or masses. There is cerebral volume loss for age, with resultant ventricular and sulcal prominence. There are periventricular and deep white matter chronic small vessel ischemic changes. There is intracranial internal carotid artery atherosclerosis. Skull and face: Calvarium and visualized facial bones appear intact, without suspicious lesions. Sinuses: Visualized sinuses and mastoids are clear. IMPRESSION: No acute intracranial disease process. Dictated by: Cesia Cooper MD, PhD on 12/22/2018 at 10:39 Approved by: Cesia Cooper MD, PhD on 12/22/2018 at 10:41
--- NOTE | 2018-12-22 03:50 | ED_ITS ---
HPI - Syncope General Chief Complaint: Syncope Stated Complaint: Syncope Time Seen by Provider: 12/22/18 03:30 Source: patient and EMS Mode of arrival: EMS Limitations: no limitations History of Present Illness HPI narrative: 63-year-old male daily smoker with history of COPD, coronary artery disease and daily alcohol presents by EMS for evaluation of a syncopal episode that happened while walking on his way to the restroom. He felt a bit dizzy and faint and collapsed to the floor in front of his . He does not have full recall and states the fall resulted in a head injury with significant back pain. He denies any blood thinners and has had headache since the fall. He has recently had episodes of nausea, vomiting and diarrhea, which he states can be normal for him on metformin. He denies fever or chills nor any significant shortness of breath. His pain is worse with motion and improves with rest. MD complaint: loss of consciousness Onset (ago): minute(s) -: second(s) Prodromal symptoms: lightheaded Witnessed: yes - by bystander Context: alcohol use Injuries sustained associated with event: head and back Current symptoms: headache History: previous syncopal episode and history of CAD Treatments prior to arrival: IV fluids Related Data Home Medications Medication Instructions Recorded Confirmed atorvastatin 40 mg PO BEDTIME 11/23/18 11/23/18 beclomethasone dipropionate [Qvar 1 puff INHALATION PRN PRN 11/23/18 11/23/18 RediHaler] citalopram [Celexa] 40 mg PO DAILY 11/23/18 11/23/18 gabapentin 300 mg PO BID 11/23/18 11/23/18 insulin aspart U-100 [Novolog 30 - 50 units SUBCUT BIDWM 11/23/18 11/23/18 Flexpen U-100 Insulin] insulin glargine [Lantus Solostar 70 units SUBCUT BID 11/23/18 11/23/18 U-100 Insulin] isosorbide mononitrate 60 mg PO QAM 11/23/18 11/23/18 Previous Rx's Medication Instructions Recorded pen needle, diabetic 29 gauge x #100 each 03/11/18 1/2 clotrimazole 1 % topical cream 1 applictn TOP BID #30 gram 05/14/18 famotidine 20 mg tablet 20 mg PO BID #180 tab 07/16/18 albuterol sulfate HFA 90 1 - 2 puff INHALATION Q4HP PRN #3 09/09/18 mcg/actuation aerosol inhaler inh pen needle, diabetic 31 gauge x #100 each 09/09/1803/17 levothyroxine 50 mcg tablet 50 mcg PO QAM #90 tab 11/09/18 metformin 500 mg tablet 500 mg PO BID #180 tab 11/09/18 metoprolol tartrate 25 mg tablet 25 mg PO BID #180 tab 11/09/18 lisinopril 2.5 mg tablet 2.5 mg PO QAM #90 tab 12/02/18 oxycodone 5 mg PO Q4-6H PRN #10 tab 12/22/18 Allergies Allergy/AdvReac Type Severity Reaction Status Date / Time adhesive Allergy Mild REDNESS/ITC Verified 10/11/18 15:19 HINESS Review of Systems Constitutional Denies chills, Denies fever(s), Denies lethargy and Denies weakness Eyes Denies change in vision, Denies eye discharge, Denies irritation and Denies loss of vision ENT Ears, Nose, Mouth, and Throat: Denies change in voice, Denies neck pain and Denies sore throat Cardiovascular Denies chest pain, Reports syncope, Denies irregular heart rhythm, Denies lightheadedness, Denies palpitations, Denies dyspnea, Denies dyspnea on exertion and Denies orthopnea Respiratory Denies cough, Denies dyspnea, Denies dyspnea on exertion and Denies wheezing Gastrointestinal Gastrointestinal: Denies abdominal pain, Denies change in bowel habits, Denies diarrhea, Denies nausea and Denies vomiting Genitourinary Denies hematuria, Denies flank pain, Denies urinary incontinence and Denies urinary urgency Musculoskeletal Reports back pain, Denies neck pain and Reports stiffness Integumentary/Breasts Denies pruritus, Denies erythema, Denies rash and Denies wounds Neurologic Denies confusion, Reports syncope, Denies loss of vision and Denies weakness Psychiatric Denies anxiety, Denies confusion, Denies depression, Denies homicidal ideation and Denies suicidal ideation Endocrine Denies palpitations Hematologic/Lymphatic Denies easy bruising Allergic/Immunologic Denies wheezing [facility] Medical History COPD (chronic obstructive pulmonary disease) (Chronic) Chronic cough (Chronic) Coronary artery disease (Chronic 2006) Depression (Chronic 2009) Diabetes (Chronic 1994) Eczema (Chronic) Foot pain (Chronic) GERD (gastroesophageal reflux disease) (Chronic 2012) Hyperlipidemia (Chronic) Hypertension (Chronic) Hypothyroidism (Chronic) Kidney disease (Chronic 2009) Neuropathy (Chronic) Obstructive sleep apnea (Chronic) Shoulder pain (Chronic) Chicken pox (Resolved 1956) Chickenpox (Resolved 1956) Gout (Resolved) Measles (Resolved 1955) Measles (Resolved 1955) Mumps (Resolved 1958) Mumps (Resolved 1958) Status post myocardial infarction (Resolved) Strain of muscle of right groin region (Resolved 03/30/18) Surgical History Anesthesia (Resolved) History of heart artery stent (Resolved 2006) History of heart artery stent (Resolved 2010) Hx of shoulder surgery (Resolved 2005) Family History Brother Age: 64 Diabetes mellitus Hyperlipidemia Mother Heart disease Hypertension Hyperlipidemia Diabetes mellitus Grandmother Diabetes mellitus Brother No problems noted. Sister Breast cancer Social History household members: spouse, children and other Smoking Status: Current every day smoker Tobacco: How many years used: 45 alcohol intake: current Family History Brother Age: 64 Diabetes mellitus Hyperlipidemia Mother Heart disease Hypertension Hyperlipidemia Diabetes mellitus Grandmother Diabetes mellitus Brother No problems noted. Sister Breast cancer Social History household members: spouse, children and other Smoking Status: Current every day smoker Tobacco: How many years used: 45 alcohol intake: current Exam Narrative Exam Narrative: GENERAL: 63-year-old male appears stated age, clearly uncomfortable, in a C-collar complaining of back pain. GCS 15 HEAD: Atraumatic. Normocephalic. No temporal or scalp tenderness. EYES: Pupils equal round and reactive. Extraocular motions intact. No scleral icterus. No injection or drainage. ENT: Nose without bleeding, purulent drainage or septal hematoma. Throat without erythema, tonsillar hypertrophy or exudate. Uvula midline. Airway patent. NECK: Trachea midline. No JVD or lymphadenopathy. Supple, nontender, no meningeal signs. CARDIOVASCULAR: Regular rate and rhythm without murmurs, gallops, or rubs. RESPIRATORY: Clear to auscultation. Breath sounds equal bilaterally. No wheezes, rales, or rhonchi. GASTROINTESTINAL: Abdomen soft, non-tender, nondistended. No hepato- splenomegaly, or palpable masses. No guarding. EXTREMITIES: No clubbing, cyanosis, or edema. No joint tenderness, effusion, or edema noted. BACK: severe mid thoracic pain, midline lumbar pain. No numbness, tingling, or weakness NEURO: AOx3. SKIN: No rash or erythema. Initial Vital Signs Initial Vital Signs: Vital Signs Temperature 98.3 F 12/22/18 03:35 Pulse Rate 81 12/22/18 03:35 Respiratory Rate 16 12/22/18 03:35 Blood Pressure 133/70 12/22/18 03:35 Pulse Oximetry 95 12/22/18 03:35 Course Orders Ordered: Discontinued Medications Sodium Chloride (Normal Saline 0.9%) 1,000 mls @ 1,000 mls/hr IV BOLUS ONE Stop: 12/22/18 05:26 Last Infusion: 12/22/18 05:31 Dose: 0 mls/hr Admin: 12/22/18 04:30 Dose: 1,000 mls/hr Sodium Chloride (Normal Saline 0.9%) 1,000 mls @ 1,000 mls/hr IV BOLUS ONE Stop: 12/22/18 06:25 Last Infusion: 12/22/18 06:50 Dose: 0 mls/hr Admin: 12/22/18 05:31 Dose: 1,000 mls/hr Ketorolac Tromethamine (Toradol) 15 mg IV NOW ONE Stop: 12/22/18 04:15 Last Admin: 12/22/18 04:16 Dose: 15 mg Oxycodone/Acetaminophen (Percocet 5/325) 1 tab PO NOW ONE Stop: 12/22/18 07:48 Last Admin: 12/22/18 07:57 Dose: 1 tab Vital Signs - 8 hr 12/22/18 03:35 12/22/18 03:38 12/22/18 04:04 Temperature 98.3 F 98.3 F Pulse Rate 81 81 84 Respiratory Rate 16 16 18 Blood Pressure 133/70 Blood Pressure [Left Arm] 133/70 120/66 Pulse Oximetry 95 95 95 12/22/18 04:36 Temperature Pulse Rate 73 Respiratory Rate 18 Blood Pressure Blood Pressure [Left Arm] 109/56 L Pulse Oximetry 97 MDM - Syncope Differential Diagnosis Likely syncope due to orthostatic hypotension, vasovagal syncope, complete atrioventricular block, subarachnoid hemorrhage, pulmonary embolism, dehydration and other Medical Records Attestation: I reviewed the patient's medical records. Lab Data Attestation: I reviewed the patient's lab results. Result diagrams: 12/22/18 04:07 12/22/18 04:07 Lab Results 12/22/18 12/22/18 Range/Units 04:07 04:07 WBC 8.4 (4.5-11.0) X10^3/uL RBC 4.13 L (4.5-5.9) X10^6/uL Hgb 13.7 (13.5-17.5) g/dL Hct 40.2 L (41-53) % MCV 97.3 (80-100) fL MCH 33.2 (26-34) PG MCHC 34.2 (30-36) % RDW 13.8 (11.6-14.8) % Plt Count 239 (150-400) X10^3/uL Neut % (Auto) 66.2 (50-75) % Lymph % (Auto) 24.6 L (25-40) % [place] % (Auto) 7.4 (3-14) % Eos % (Auto) 1.2 L (2-4) % Baso % (Auto) 0.6 (0-2) % Neut # (Auto) 5600 (1181-2004) /uL Lymph # (Auto) 2100 (6400-1604) /uL [place] # (Auto) 600 (0-900) /uL Eos # (Auto) 100 (0-450) /uL Baso # (Auto) 100 (0-100) /uL Sodium 138 (137-145) mmol/L Potassium 3.6 (3.4-5.1) mmol/L Chloride 101 (98-107) mmol/L Carbon Dioxide 23 (22-32) mmol/L BUN 17 (9-20) mg/dL Creatinine 1.40 H (0.66-1.25) mg/dL Estimated GFR 50.9 L (>60) mL/min BUN/Creatinine Ratio 12.1 (6-22) Glucose 111 H (80-110) mg/dL Calcium 8.4 (8.4-10.2) mg/dL Total Bilirubin 0.3 (0.2-1.3) mg/dL AST 48 (17-59) IU/L ALT 41 (21-72) IU/L Alkaline Phosphatase 75 (38-126) U/L Total Creatine Kinase 194 H (55-170) U/L CK-MB (CK-2) 3.41 H (<2.37) ng/mL CK-MB (CK-2) Rel Index 1.8 (1.5-5.0) % Troponin I < 0.012 (0.01-0.034) ng/mL B-Natriuretic Peptide < 100 (<100) Total Protein 7.6 (6.3-8.2) g/dL Albumin 4.1 (3.5-5.0) g/dL Globulin 3.5 (1.7-4.1) g/dL Albumin/Globulin Ratio 1.2 (1.0-2.8) Imaging Data CT scan - head: Radiologist's impression: No acute intracranial abnormalities CT scan - chest: Radiologist's impression: No fracture, no PTX, no PNA C spine CT: Radiologist's impression: No fracture L spine CT: Radiologist's impression: No Fx MDM Narrative Medical decision making narrative: Multiple etiologies for patient's symptoms considered including: [arrhythmia, myocardial infarction, dehydration, orthostatic hypotension all considered as etiologies of the patient's syncope or near syncope. Given his dry mucous membranes, dark urine, orthostatic blood pressure and significant response to IV fluids is thought most likely that he had orthostatic hypotension due to dehydration from some loose stools. Regarding his fall subarachnoid hemorrhage, subdural hemorrhage,, lumbar fracture, rib fracture all considered but thought less likely given lack of imaging.] Patient's symptoms improved or duration of stay with above-stated therapies. Findings and discharge diagnosis discussed with patient/family followed by verbalization of understanding Return precautions discussed with patient/family whom verbalize understanding. Discharge Plan Departure Patient Disposition: Home Clinical Impression: Acute dehydration, Syncope due to orthostatic hypotension Lumbar contusion Qualifiers: Encounter type: initial encounter Qualified Code(s): S30.0XXA - Contusion of lower back and pelvis, initial encounter Discharge Date/Time: 12/22/18 08:32 Interventions: ED Discharge Assessment Last Done: 12/22/18 08:32 Instructions: DI for Syncope in Adults (Fainting) Activity Restrictions/Additional Instructions: 1. Drink plenty of fluids with frequent small sips. 2. For the next 24 hours a clear liquid diet is advised. After that please employ a brat diet which would include bananas, rice, apples, toast. 3. Please take medications as directed. 4. Please follow-up with your doctor in the next 1-2 days. Call the office for an appointment. 5. Please return to the emergency Department for any worsening or persistent symptoms, such as increasing pain or fever. Prescriptions: New oxycodone 5 mg tablet 5 mg PO Q4-6H PRN (Reason: pain) Qty: 10 RF: 0 No Action clotrimazole [Lotrimin AF] 1 % cream 1 applictn TOP BID Qty: 30 RF: 1 pen needle, diabetic [Comfort EZ Pen Mcqueeney] 29 gauge x 1/2 needle .ROUTE .MEDSUPPLY Qty: 100 RF: 0 famotidine 20 mg tablet 20 mg PO BID Qty: 180 RF: 0 albuterol sulfate [Proventil HFA] 90 mcg/actuation HFA aerosol inhaler 1 - 2 puff INHALATION Q4HP PRN (Reason: asthma) Qty: 3 RF: 0 pen needle, diabetic [Comfort EZ Pen Mcqueeney] 31 gauge x 5/16 needle .ROUTE .MEDSUPPLY Qty: 100 RF: 3 levothyroxine [Synthroid] 50 mcg tablet 50 mcg PO QAM Qty: 90 RF: 0 metformin [Glucophage] 500 mg tablet 500 mg PO BID Qty: 180 RF: 0 metoprolol tartrate 25 mg tablet 25 mg PO BID Qty: 180 RF: 0 lisinopril 2.5 mg tablet 2.5 mg PO QAM Qty: 90 RF: 0 insulin aspart U-100 [Novolog Flexpen U-100 Insulin] 100 unit/mL insulin pen 30 - 50 units subcut BIDWM RF: 0 insulin glargine [Lantus Solostar U-100 Insulin] 100 unit/mL (3 mL) insulin pen 70 units subcut BID RF: 0 beclomethasone dipropionate [Qvar RediHaler] 40 mcg/actuation HFA aerosol breath activated 1 puff Inhalation PRN PRN (Reason: Shortness Of Breath) RF: 0 atorvastatin 40 mg tablet 40 mg PO BEDTIME RF: 0 citalopram [Celexa] 40 mg tablet 40 mg PO DAILY RF: 0 isosorbide mononitrate 60 MG tablet extended release 24 hr 60 mg PO QAM RF: 0 gabapentin 300 mg capsule 300 mg PO BID RF: 0 Referrals: Lakia Londono DO [Primary Care Provider] -
[2018-12-22] MEDS: KETOROLAC 60 MG/2 ML VIAL 15 MG IV (04:16)
[2018-12-22 04:17] LABS: Add Manual Diff / Slide Review NO; Basophils Absolute Auto 100 /uL (0-100); Basophils Percent Auto 0.6 % (0-2); Eosinophils Absolute Auto 100 /uL (0-450); Eosinophils Percent Auto 1.2 % (2-4); Hematocrit 40.2 % (41-53); Hemoglobin 13.7 g/dL (13.5-17.5); Lymphocytes Absolute Auto 2100 /uL (1100-4500); Lymphocytes Percent Auto 24.6 % (25-40); Mean Corpuscular HGB Conc 34.2 % (30-36); Mean Corpuscular Hemoglobin 33.2 PG (26-34); Mean Corpuscular Volume 97.3 fL (80-100); Monocytes Absolute Auto 600 /uL (0-900); Monocytes Percent Auto 7.4 % (3-14); Neutrophils Absolute Auto 5600 /uL (1500-7000); Neutrophils Percent Auto 66.2 % (50-75); Platelet Count 239 X10^3/uL (150-400); Red Blood Cell Count 4.13 X10^6/uL (4.5-5.9); Red Cell Distribution Width 13.8 % (11.6-14.8); White Blood Cell Count 8.4 X10^3/uL (4.5-11.0)
[2018-12-22 04:23] LABS: Alanine Aminotransferase 41 IU/L (21-72); Albumin 4.1 g/dL (3.5-5.0); Albumin Globulin Ratio 1.2 (1.0-2.8); Alkaline Phosphatase 75 U/L (38-126); Aspartate Aminotransferase 48 IU/L (17-59); BUN Creatinine Ratio 12.1 (6-22); Bilirubin Total 0.3 mg/dL (0.2-1.3); Blood Urea Nitrogen 17 mg/dL (9-20); Calcium 8.4 mg/dL (8.4-10.2); Carbon Dioxide 23 mmol/L (22-32); Chloride 101 mmol/L (98-107); Creatine Kinase 194 U/L (55-170); Estimated Glomerular Filt Rate 50.9 mL/min (>60); Globulin 3.5 g/dL (1.7-4.1); Glucose 111 mg/dL (80-110); HEMOLYSIS < 15 (0-50); Potassium 3.6 mmol/L (3.4-5.1); Sodium 138 mmol/L (137-145); Total Protein 7.6 g/dL (6.3-8.2)
[2018-12-22] MEDS: SODIUM CHLORIDE 0.9% 1,000 ML 1000 ML IV ×2 (04:30→05:31)
[2018-12-22 04:36] LABS: B Type Natriuretic Peptide < 100 (<100)
[2018-12-22 04:39] LABS: CKMB % Relative Index 1.8 % (1.5-5.0); Creatine Kinase MB 3.41 ng/mL (<2.37)
[2018-12-22 04:49] LABS: Troponin I < 0.012 ng/mL (0.01-0.034)
--- NOTE | 2018-12-22 05:18 | PC.NURSE ---
c/o feeling dizzy when sitting and standing.
[2018-12-22] MEDS: OXYCODONE/ACETAMINOPHEN 5/325 TABLET 1 TAB PO (07:57)
== END 2018-12-22 08:32 | disposition home or self-care (01) ==
PROVIDERS: Emergency Provider Emergency Medicine; Family Provider Family Medicine; PCP Family Medicine
DX: S30.0XXA Contusion of lower back and pelvis, initial encounter (principal); E86.0 Dehydration; I95.1 Orthostatic hypotension; W18.30XA Fall on same level, unspecified, initial encounter
CPT/HCPCS: 36415; 70450; 71250; 72125; 72131; 80053; 82550; 82553; 83880; 84484; 85025; 93005; 96361; 96374; 99285; J1885

== ENCOUNTER 2019-01-19 09:14 | Emergency (ER) | payer OTHER, MEDICARE, SELFPAY ==
[2018-09-14 15:47] VITALS: BMI 35.8
[2019-01-19 09:52] VITALS: BP 135/70; PULSE 78; RESP 22; TEMP 37.6; O2SAT 95; BMI 34.7
--- NOTE | 2019-01-19 09:57 | DI.RAD.S_ITS ---
PROCEDURE: XR CHEST 2V INDICATIONS: cough and cold sx TECHNIQUE: 2 views of the chest were acquired. COMPARISON: [facility], CT, CT CHEST WO CON, 12/22/2018, 3:37. [facility], CR, XR CHEST 1V, 03/30/2018, 9:19. [facility], CR, XR CHEST 1V, 11/23/2018, 4:54. FINDINGS: Surgical changes and devices: None. Lungs and pleura: No acute consolidation. There is mild interstitial prominence which appears similar to the prior studies. There is a small nodular opacity in the right upper lung zone measuring approximately 5 mm not seen on the prior studies. No pleural effusions or pneumothorax. Mediastinum: Mediastinal contours are unchanged. Heart size is normal. Bones and chest wall: No suspicious bony abnormalities. Soft tissues appear unremarkable. IMPRESSION: 1. No definite acute cardiopulmonary disease. 2. Mild chronic interstitial prominence appears similar to the prior studies. 3. Small nodular opacity in the right upper lung zone not seen on the prior studies. The findings are suggestive of overlapping vascular and bony structures. Recommend a PA and lateral study when clinically feasible to demonstrate resolution. Dictated by: Pasha Dunn M.D. on 01/19/2019 at 10:13 Approved by: Pasha Dunn M.D. on 01/19/2019 at 10:32
[2019-01-19 11:08] VITALS: BP 150/74; PULSE 79; RESP 20; TEMP 37.5; O2SAT 95
[2019-01-19 13:46] VITALS: BP 160/69; PULSE 80; RESP 18; O2SAT 94
[2019-01-19] MEDS: ALBUTEROL/IPRATROPIUM 3 ML AMPUL INH ×2 (13:52→14:47)
[2019-01-19 13:55] VITALS: PULSE 67; RESP 18; O2SAT 95
[2019-01-19 14:07] LABS: Influenza A and B by PCR Rapid Negative (Negative)
[2019-01-19] MEDS: predniSONE 20 MG TABLET 40 MG PO (14:49)
[2019-01-19 14:52] VITALS: PULSE 82; O2SAT 96
--- NOTE | 2019-01-19 14:52 | ED_ITS ---
HPI - URI/Sore Throat General Chief Complaint: Upper Respiratory Symptoms Stated Complaint: having trouble breathing/coughing Time Seen by Provider: 01/19/19 09:20 Source: patient Mode of arrival: ambulatory Limitations: no limitations History of Present Illness HPI Narrative: 63M smoker with COPD and DM presents with a few days of wheezing, cough, SOB, and low grade fever. He denies headache, sore throat nor nausea or vomiting. He does have a nebulizer at home and has plenty of nebs. His cough has been dry and hacking. He denies any known sick people around him. He has had no fever or shaking chills MD Complaint: fever and cough Onset (ago): day(s) Duration: constant Severity: moderate Relieving factors: nothing Exacerbating factors: nothing Description of mucous: clear Able to tolerate fluids by mouth: Yes Associated symptoms: denies other symptoms Treatments prior to arrival: cold medicine Related Data Home Medications Medication Instructions Recorded Confirmed atorvastatin 40 mg PO BEDTIME 11/23/18 01/19/19 beclomethasone dipropionate [Qvar 1 puff INHALATION PRN PRN 11/23/18 01/19/19 RediHaler] gabapentin 300 mg PO BID 11/23/18 01/19/19 isosorbide mononitrate 60 mg PO QAM 11/23/18 01/19/19 albuterol sulfate [Proventil HFA] 1 puff INHALATION PRN PRN 01/19/19 01/19/19 Previous Rx's Medication Instructions Recorded pen needle, diabetic 29 gauge x #100 each 03/11/18/ clotrimazole 1 % topical cream 1 applictn TOP BID #30 gram 05/14/18 famotidine 20 mg tablet 20 mg PO BID #180 tab 07/16/18 pen needle, diabetic 31 gauge x #100 each 09/09/1803/17 levothyroxine 50 mcg tablet 50 mcg PO QAM #90 tab 11/09/18 metformin 500 mg tablet 500 mg PO BID #180 tab 11/09/18 metoprolol tartrate 25 mg tablet 25 mg PO BID #180 tab 11/09/18 lisinopril 2.5 mg tablet 2.5 mg PO QAM #90 tab 12/02/18 oxycodone 5 mg tablet 5 mg PO Q4-6H PRN #10 tab 12/28/18 citalopram 40 mg tablet 40 mg PO DAILY #90 tab 01/05/19 insulin aspart U- 100 100 unit/mL See Rx Instructions SUBCUT BIDWM 01/05/19 subcutaneous pen #15 ml insulin glargine (U-100) 100 70 unit SUBCUT BID #15 ml 01/05/19 unit/mL (3 mL) subcutaneous pen doxycycline hyclate 100 mg PO BID #20 tab 01/19/19 prednisone 20 mg PO DAILY #4 tab 01/19/19 Allergies Allergy/AdvReac Type Severity Reaction Status Date / Time adhesive Allergy Mild REDNESS/ITC Verified 10/11/18 15:19 HINESS Review of Systems Constitutional Denies chills, Reports fever(s), Denies lethargy and Denies weakness Eyes Denies change in vision, Denies eye discharge, Denies irritation and Denies loss of vision ENT Ears, Nose, Mouth, and Throat: Denies change in voice, Denies neck pain and Denies sore throat Cardiovascular Denies chest pain, Denies irregular heart rhythm, Denies lightheadedness, Denies palpitations, Reports dyspnea, Denies dyspnea on exertion and Denies orthopnea Respiratory Reports cough, Reports dyspnea, Denies dyspnea on exertion and Reports wheezing Gastrointestinal Gastrointestinal: Denies abdominal pain, Denies change in bowel habits, Denies diarrhea, Denies nausea and Denies vomiting Genitourinary Denies hematuria, Denies flank pain, Denies urinary incontinence and Denies urinary urgency Musculoskeletal Denies neck pain Integumentary/Breasts Denies pruritus, Denies erythema, Denies rash and Denies wounds Neurologic Denies confusion, Denies loss of vision and Denies weakness Psychiatric Denies anxiety, Denies confusion, Denies depression, Denies homicidal ideation and Denies suicidal ideation Endocrine Denies palpitations Hematologic/Lymphatic Denies easy bruising Allergic/Immunologic Reports wheezing PFSH Medical History COPD (chronic obstructive pulmonary disease) (Chronic) Chronic cough (Chronic) Coronary artery disease (Chronic 2006) Depression (Chronic 2008) Diabetes (Chronic 1994) Eczema (Chronic) Foot pain (Chronic) GERD (gastroesophageal reflux disease) (Chronic 2012) Hyperlipidemia (Chronic) Hypertension (Chronic) Hypothyroidism (Chronic) Kidney disease (Chronic 2009) Neuropathy (Chronic) Obstructive sleep apnea (Chronic) Shoulder pain (Chronic) Chicken pox (Resolved 1956) Chickenpox (Resolved 1956) Gout (Resolved) Measles (Resolved 1955) Measles (Resolved 1955) Mumps (Resolved 1958) Mumps (Resolved 1958) Status post myocardial infarction (Resolved) Strain of muscle of right groin region (Resolved 03/30/18) Surgical History Anesthesia (Resolved) History of heart artery stent (Resolved 2006) History of heart artery stent (Resolved 2010) Hx of shoulder surgery (Resolved 2005) Family History Brother Age: 64 Diabetes mellitus Hyperlipidemia Mother Heart disease Hypertension Hyperlipidemia Diabetes mellitus Grandmother Diabetes mellitus Brother No problems noted. Sister Breast cancer Social History household members: spouse, children and other Smoking Status: Current every day smoker Tobacco: How many years used: 45 alcohol intake: current Family History Brother Age: 64 Diabetes mellitus Hyperlipidemia Mother Heart disease Hypertension Hyperlipidemia Diabetes mellitus Grandmother Diabetes mellitus Brother No problems noted. Sister Breast cancer Social History household members: spouse, children and other Smoking Status: Current every day smoker Tobacco: How many years used: 45 alcohol intake: current Exam Narrative Exam Narrative: GENERAL: 63M appears older than stated age, in no significant respiratory distress but there is some bronchospastic cough HEAD: Atraumatic. Normocephalic. No temporal or scalp tenderness. EYES: Pupils equal round and reactive. Extraocular motions intact. No scleral icterus. No injection or drainage. ENT: Nose without bleeding, purulent drainage or septal hematoma. Throat without erythema, tonsillar hypertrophy or exudate. Uvula midline. Airway patent. NECK: Trachea midline. No JVD or lymphadenopathy. Supple, nontender, no meningeal signs. CARDIOVASCULAR: Regular rate and rhythm without murmurs, gallops, or rubs. RESPIRATORY: Prolonged expiratory phase with expiratory wheeze. No rales or rhonchi GASTROINTESTINAL: Abdomen soft, non-tender, nondistended. No hepato- splenomegaly, or palpable masses. No guarding. EXTREMITIES: No clubbing, cyanosis, or edema. No joint tenderness, effusion, or edema noted. BACK: Nontender without deformity or crepitance. No flank tenderness. NEURO: AOx3. SKIN: No rash or erythema. Initial Vital Signs Initial Vital Signs: Vital Signs Temperature 99.6 F 01/19/19 09:52 Pulse Rate 78 01/19/19 09:52 Respiratory Rate 22 01/19/19 09:52 Blood Pressure 135/70 01/19/19 09:52 Pulse Oximetry 95 01/19/19 09:52 Course Orders Ordered: ED Orders 01/19/19 09:57 CXR [XR chest 2V] Stat 01/19/19 13:20 Influenza A and B by PCR Rapid Stat 01/19/19 13:45 Consult to Respiratory Therapy Evaluate & Treat Discontinued Medications Albuterol/Ipratropium (Duoneb) 3 ml INH NOW ONE Stop: 01/19/19 13:47 Last Admin: 01/19/19 13:52 Dose: 3 ml Albuterol/Ipratropium (Duoneb) 3 ml INH NOW ONE Stop: 01/19/19 14:38 Prednisone (Deltasone) 40 mg PO NOW ONE Stop: 01/19/19 14:38 Vital Signs - 8 hr 01/19/19 09:52 01/19/19 11:08 01/19/19 13:46 Temperature 99.6 F 99.5 F Pulse Rate 78 79 80 Respiratory Rate 22 20 18 Blood Pressure 135/70 Blood Pressure [Right Arm] 150/74 H 160/69 H Pulse Oximetry 95 95 94 01/19/19 13:55 Temperature Pulse Rate 67 Respiratory Rate 18 Blood Pressure Blood Pressure [Right Arm] Pulse Oximetry 95 MDM - URI/Sore Throat Lab Data Lab Results 01/19/19 Range/Units 13:20 Influenza A & B (PCR) Negative (Negative) Imaging Data Chest x-ray: Radiologist's impression: [address] [address] XRay Report Signed Patient: Carlos Randall RMR#: [id number] : 3Acct:[id number] Age/Sex: 63 / MDate of Service: 01/19/19 Loc: ED Accession Number: [id number] Procedure: XR chest 2V Ordering Provider: Azeem Del Real D.O. PROCEDURE: XR CHEST 2V INDICATIONS: cough and cold sx TECHNIQUE: 2 views of the chest were acquired. COMPARISON: [facility], CT, CT CHEST WO CON, 12/22/2018, 3:37. [facility], CR, XR CHEST 1V, 03/30/2018, 9:19. [facility], CR, XR CHEST 1V, 11/23/2018, 4:54. FINDINGS: Surgical changes and devices: None. Lungs and pleura: No acute consolidation. There is mild interstitial prominence which appears similar to the prior studies. There is a small nodular opacity in the right upper lung zone measuring approximately 5 mm not seen on the prior studies. No pleural effusions or pneumothorax. Mediastinum: Mediastinal contours are unchanged. Heart size is normal. Bones and chest wall: No suspicious bony abnormalities. Soft tissues appear unremarkable. IMPRESSION: 1. No definite acute cardiopulmonary disease. 2. Mild chronic interstitial prominence appears similar to the prior studies. 3. Small nodular opacity in the right upper lung zone not seen on the prior st udies. The findings are suggestive of overlapping vascular and bony structures. Recommend a PA and lateral study when clinically feasible to demonstrate resolution. Dictated by: Pasha Dunn M.D. on 01/19/2019 at 10:13 Approved by: Pasha Dunn M.D. on 01/19/2019 at 10:32 MDM Narrative Medical decision making narrative: 63-year-old current smoker presents with upper respiratory symptoms. Chest x-ray shows no typical pneumonia or other significant findings. Abnormal lesion in right upper lobe discussed with patient and he understands the need for follow-up. He has responded to bronchodilators. Flu ruled out. Will place on ABX for atypical pneumonia coverage. Patient given return precautions and has verbalized understanding of these precautions Discharge Plan Departure Patient Disposition: Home Clinical Impression: Atypical pneumonia COPD (chronic obstructive pulmonary disease) Qualifiers: COPD type: COPD with acute lower respiratory infection Qualified Code(s): J44.0 - Chronic obstructive pulmonary disease with acute lower respiratory infection Instructions: DI for Atypical Pneumonia Activity Restrictions/Additional Instructions: *You have been diagnosed with [ atypical pneumonia ] *What to do: *Take medications as directed. You may need to alter your sliding scale insulin while on prednisone *Follow up with your primary care provider in 2-3 days, call for an appointment. Let them know you were seen in the Emergency Department and that we ask that you be seen in follow up. You need to get a repeat 2 view chest xray as an outpatient in the next week or so to re-evaluate an abnormal finding on the one from today *Return to ER if you should have any new, worsening or concerning symptoms Prescriptions: New prednisone 20 mg tablet 20 mg PO DAILY Qty: 4 RF: 0 doxycycline hyclate 100 mg tablet 100 mg PO BID Qty: 20 RF: 0 No Action clotrimazole [Lotrimin AF] 1 % cream 1 applictn TOP BID Qty: 30 RF: 1 pen needle, diabetic [Comfort EZ Pen [place]] 29 gauge x 1/2 needle .ROUTE .MEDSUPPLY Qty: 100 RF: 0 famotidine 20 mg tablet 20 mg PO BID Qty: 180 RF: 0 pen needle, diabetic [Comfort EZ Pen [place]] 31 gauge x 5/16 needle .ROUTE .MEDSUPPLY Qty: 100 RF: 3 levothyroxine [Synthroid] 50 mcg tablet 50 mcg PO QAM Qty: 90 RF: 0 metformin [Glucophage] 500 mg tablet 500 mg PO BID Qty: 180 RF: 0 metoprolol tartrate 25 mg tablet 25 mg PO BID Qty: 180 RF: 0 lisinopril 2.5 mg tablet 2.5 mg PO QAM Qty: 90 RF: 0 oxycodone 5 mg tablet 5 mg PO Q4-6H PRN (Reason: pain) Qty: 10 RF: 0 citalopram [Celexa] 40 mg tablet 40 mg PO DAILY Qty: 90 RF: 0 insulin glargine 100 unit/mL (3 mL) insulin pen 70 unit subcut BID Qty: 15 RF: 0 insulin aspart U-100 100 unit/mL insulin pen See Rx Instructions subcut BIDWM Qty: 15 RF: 0 albuterol sulfate [Proventil HFA] 90 mcg/actuation HFA aerosol inhaler 1 puff INHALATION PRN PRN (Reason: asthma) RF: 0 Qvar RediHaler 40 mcg/actuation HFA aerosol breath activated 1 puff Inhalation PRN PRN (Reason: Shortness Of Breath) RF: 0 atorvastatin 40 mg tablet 40 mg PO BEDTIME RF: 0 isosorbide mononitrate 60 MG tablet extended release 24 hr 60 mg PO QAM RF: 0 gabapentin 300 mg capsule 300 mg PO BID RF: 0 Referrals: Lakia Londono DO [Primary Care Provider] -
[2019-01-19 15:00] VITALS: BP 163/88; PULSE 81; RESP 22; O2SAT 95
== END 2019-01-19 15:01 | disposition home or self-care (01) ==
PROVIDERS: Emergency Provider Emergency Medicine; Family Provider Family Medicine; PCP Family Medicine
DX: J18.9 Pneumonia, unspecified organism (principal); J44.0 Chronic obstructive pulmonary disease with (acute) lower respiratory infection
CPT/HCPCS: 71046; 87400; 94640; 99283; 99284

== ENCOUNTER 2019-01-21 11:06 | Emergency (ER) | payer OTHER, SELFPAY ==
[2018-09-14 15:47] VITALS: BMI 35.8
[2019-01-21 11:21] VITALS: BP 142/77; PULSE 69; RESP 20; TEMP 36.3; O2SAT 95
--- NOTE | 2019-01-21 12:17 | DI.RAD.S_ITS ---
PROCEDURE: XR CHEST 2V INDICATIONS: sob TECHNIQUE: 2 views of the chest were acquired. COMPARISON: [facility], CR, XR CHEST 2V, 01/19/2019, 10:03. FINDINGS: Surgical changes and devices: None. Lungs and pleura: Lungs are clear. No pleural effusions or pneumothorax. Mediastinum: Mediastinal contours are normal. Heart size is normal. Bones and chest wall: No suspicious bony abnormalities. Soft tissues appear unremarkable. IMPRESSION: No acute process. Dictated by: Perri Castillo M.D. on 01/21/2019 at 12:53 Approved by: Perri Castillo M.D. on 01/21/2019 at 12:54
[2019-01-21 12:58] LABS: Add Manual Diff / Slide Review NO; Basophils Absolute Auto 0 /uL (0-100); Basophils Percent Auto 0.4 % (0-2); Eosinophils Absolute Auto 100 /uL (0-450); Eosinophils Percent Auto 0.7 % (2-4); Hematocrit 37.7 % (41-53); Hemoglobin 12.6 g/dL (13.5-17.5); Lymphocytes Absolute Auto 2100 /uL (1100-4500); Lymphocytes Percent Auto 21.2 % (25-40); Mean Corpuscular HGB Conc 33.6 % (30-36); Mean Corpuscular Hemoglobin 33.1 PG (26-34); Mean Corpuscular Volume 98.7 fL (80-100); Monocytes Absolute Auto 800 /uL (0-900); Monocytes Percent Auto 7.5 % (3-14); Neutrophils Absolute Auto 7100 /uL (1500-7000); Neutrophils Percent Auto 70.2 % (50-75); Platelet Count 202 X10^3/uL (150-400); Red Blood Cell Count 3.82 X10^6/uL (4.5-5.9); Red Cell Distribution Width 14.1 % (11.6-14.8); White Blood Cell Count 10.1 X10^3/uL (4.5-11.0)
[2019-01-21 13:12] LABS: D Dimer < 200 ng/mL (<230)
[2019-01-21 13:17] LABS: Lactate (Lactic Acid) 1.6 mmol/L (0.7-2.1)
[2019-01-21 13:18] LABS: Alanine Aminotransferase 44 IU/L (21-72); Alkaline Phosphatase 62 U/L (38-126); Aspartate Aminotransferase 44 IU/L (17-59); Bilirubin Total 0.4 mg/dL (0.2-1.3); Blood Urea Nitrogen 14 mg/dL (9-20); Calcium 7.9 mg/dL (8.4-10.2); Carbon Dioxide 29 mmol/L (22-32); Estimated Glomerular Filt Rate > 60.0 mL/min (>60); Glucose 227 mg/dL (80-110); HEMOLYSIS < 15 (0-50); Total Protein 7.2 g/dL (6.3-8.2)
--- NOTE | 2019-01-21 13:50 | DI.US.S_ITS ---
PROCEDURE: US PERIPH VENOUS LOW EXTREM BI INDICATIONS: Swelling and discomfort to bilateral lower extremities TECHNIQUE: Real-time imaging, as well as color and pulse Doppler interrogation, were performed of the deep veins of both legs from the inguinal ligament to the popliteal fossa. COMPARISON: None. FINDINGS: Right: The common femoral, femoral and popliteal veins are normally compressible, and free of intraluminal thrombus. Color and pulse Doppler demonstrate normal phasic intravascular flow. There is normal augmentation response to distal compression maneuver. Left: The common femoral, femoral and popliteal veins are normally compressible, and free of intraluminal thrombus. Color and pulse Doppler demonstrate normal phasic intravascular flow. There is normal augmentation response to distal compression maneuver. IMPRESSION: Negative bilateral duplex ultrasound for DVT of the lower extremities. Dictated by: Mario Thomason M.D. on 01/21/2019 at 14:38 Approved by: Mario Thomason M.D. on 01/21/2019 at 14:39
--- NOTE | 2019-01-21 14:05 | DI.CT.S_ITS ---
PROCEDURE: CT ANGIO CHEST PE PROTOCOL INDICATIONS: Sent here from primary care for PE rule out TECHNIQUE: After the administration of intravenous contrast, 2 mm thick sections acquired from the pulmonary apices to the posterior costophrenic angles. 3-dimensional maximum intensity projection (MIP) coronal and sagittal reformats were then acquired through the thorax. For radiation dose reduction, the following was used: automated exposure control, adjustment of mA and/or kV according to patient size. COMPARISON: [facility], CT, CT CHEST WO CON, 12/22/2018, 3:37. FINDINGS: Image quality: Excellent. Pulmonary arteries: Pulmonary arteries are normal in size, and demonstrate no intraluminal filling defects to suggest central pulmonary embolism. Lungs and pleura: No change in mild chronic interstitial pulmonary opacity. Lungs are otherwise clear. No pleural effusions or pneumothorax. Central and peripheral airways are patent. Mediastinum: Heart size is normal, without pericardial effusion. There is calcification of the coronary vasculature. No mediastinal or hilar adenopathy. Thoracic aorta is normal in caliber and enhancement. Esophagus is normal in caliber, without hiatal hernia. Bones and chest wall: No suspicious bony lesions. Thoracic spine ankylosis. Ribs and thoracic spine appear intact throughout. Thyroid gland is within normal limits. No axillary or supraclavicular adenopathy. Abdomen: Visualized upper abdominal solid organs appear normal in the early arterial phase of enhancement. IMPRESSION: 1. Mild chronic interstitial lung disease. 2. No pulmonary embolus. 3. Coronary artery disease. 4. Thoracic spine ankylosis. Dictated by: Perri Castillo M.D. on 01/21/2019 at 14:49 Approved by: Perri Castillo M.D. on 01/21/2019 at 14:52
--- NOTE | 2019-01-21 14:11 | ED.SOB ---
HPI - SOB/Dyspnea <LESVIA Conklin - Last Filed: 01/21/19 22:39> General Chief Complaint: Shortness of Breath/Dyspnea Stated Complaint: possible PE,SOB, pain in both legs Time Seen by Provider: 01/21/19 13:38 Source: patient Mode of arrival: ambulatory Limitations: no limitations History of Present Illness 63-year-old male with history of COPD and is everyday smoker. Sent here by primary care provider due to concern for possible DVT or PE. He was seen here in the emergency room 2 days ago for having a cough and shortness of breath. He was diagnosed with atypical pneumonia and was put on steroids and antibiotics. He is currently taking the steroids any antibiotics. He was at a follow-up appointment today and was complaining having swelling to bilateral lower extremities which she states he has had for the past 4 months. He also states that he has had shortness of breath. He denies any chest pain at this timeframe. There is concerned that he might have a clot so he was sent here for further evaluation. He is ambulatory. No nausea vomiting. No current fevers. No diaphoresis. MD Complaint: shortness of breath Related Data Home Medications Medication Instructions Recorded Confirmed atorvastatin 40 mg PO BEDTIME 11/23/18 01/21/19 beclomethasone dipropionate [Qvar 1 puff INHALATION PRN PRN 11/23/18 01/21/19 RediHaler] gabapentin 300 mg PO BID 11/23/18 01/21/19 isosorbide mononitrate 60 mg PO QAM 11/23/18 01/21/19 albuterol sulfate [Proventil HFA] 1 puff INHALATION PRN PRN 01/19/19 01/21/19 Previous Rx's Medication Instructions Recorded pen needle, diabetic 29 gauge x #100 each 03/11/18/ clotrimazole 1 % topical cream 1 applictn TOP BID #30 gram 05/14/18 pen needle, diabetic 31 gauge x #100 each 09/09/1803/17 levothyroxine 50 mcg tablet 50 mcg PO QAM #90 tab 11/09/18 metformin 500 mg tablet 500 mg PO BID #180 tab 11/09/18 metoprolol tartrate 25 mg tablet 25 mg PO BID #180 tab 11/09/18 lisinopril 2.5 mg tablet 2.5 mg PO QAM #90 tab 12/02/18 citalopram 40 mg tablet 40 mg PO DAILY #90 tab 01/05/19 insulin aspart U- 100 100 unit/mL See Rx Instructions SUBCUT BIDWM 01/05/19 subcutaneous pen #15 ml insulin glargine (U-100) 100 70 unit SUBCUT BID #15 ml 01/05/19 unit/mL (3 mL) subcutaneous pen doxycycline hyclate 100 mg PO BID #20 tab 01/19/19 prednisone 20 mg PO DAILY #4 tab 01/19/19 furosemide [Lasix] 20 mg PO DAILY #30 tab 01/21/19 Allergies Allergy/AdvReac Type Severity Reaction Status Date / Time adhesive Allergy Mild REDNESS/ITC Verified 01/21/19 10:12 HINESS Review of Systems <LESVIA Conklin - Last Filed: 01/21/19 22:39> Constitutional Denies chills, Denies fever(s), Denies lethargy and Denies weakness Eyes Denies change in vision, Denies eye discharge, Denies irritation and Denies loss of vision ENT Ears, Nose, Mouth, and Throat: Denies change in voice, Denies neck pain, Denies sore throat and Denies throat swelling Cardiovascular Denies chest pain, Denies irregular heart rhythm, Denies lightheadedness, Denies palpitations, Reports dyspnea and Denies orthopnea Respiratory Reports dyspnea and Denies wheezing Gastrointestinal Gastrointestinal: Denies abdominal pain, Denies change in bowel habits, Denies diarrhea, Denies nausea and Denies vomiting Genitourinary Denies hematuria, Denies flank pain, Denies urinary incontinence and Denies urinary urgency Musculoskeletal Denies neck pain Comments: Swelling to bilateral lower extremities with discomfort last 4 months Integumentary/Breasts Denies pruritus, Denies erythema, Denies rash and Denies wounds Neurologic Denies loss of vision and Denies weakness Endocrine Denies palpitations Hematologic/Lymphatic Denies easy bruising Allergic/Immunologic Denies urticaria, Denies throat swelling and Denies wheezing PFSH <LESVIA Conklin - Last Filed: 01/21/19 22:39> Medical History COPD (chronic obstructive pulmonary disease) (Chronic) Chronic cough (Chronic) Coronary artery disease (Chronic 2006) Depression (Chronic 2008) Diabetes (Chronic 1994) Eczema (Chronic) Foot pain (Chronic) GERD (gastroesophageal reflux disease) (Chronic 2012) Hyperlipidemia (Chronic) Hypertension (Chronic) Hypothyroidism (Chronic) Kidney disease (Chronic 2009) Neuropathy (Chronic) Obstructive sleep apnea (Chronic) Shoulder pain (Chronic) Chicken pox (Resolved 1956) Chickenpox (Resolved 1956) Gout (Resolved) Measles (Resolved 1955) Measles (Resolved 1955) Mumps (Resolved 1958) Mumps (Resolved 1958) Status post myocardial infarction (Resolved) Strain of muscle of right groin region (Resolved 03/30/18) Surgical History Anesthesia (Resolved) History of heart artery stent (Resolved 2006) History of heart artery stent (Resolved 2010) Hx of shoulder surgery (Resolved 2005) Family History Brother Age: 64 Diabetes mellitus Hyperlipidemia Mother Heart disease Hypertension Hyperlipidemia Diabetes mellitus Grandmother Diabetes mellitus Brother No problems noted. Sister Breast cancer Social History household members: spouse, children and other Smoking Status: Current every day smoker Tobacco: How many years used: 45 alcohol intake: current Family History Brother Age: 64 Diabetes mellitus Hyperlipidemia Mother Heart disease Hypertension Hyperlipidemia Diabetes mellitus Grandmother Diabetes mellitus Brother No problems noted. Sister Breast cancer Social History household members: spouse, children and other Smoking Status: Current every day smoker Tobacco: How many years used: 45 alcohol intake: current Exam <LESVIA Conklin - Last Filed: 01/21/19 22:39> Initial Vital Signs Initial Vital Signs: Vital Signs Temperature 97.4 F L 01/21/19 11:21 Pulse Rate 69 01/21/19 11:21 Respiratory Rate 20 01/21/19 11:21 Blood Pressure 142/77 H 01/21/19 11:21 Pulse Oximetry 95 01/21/19 11:21 Const General: cooperative and well developed Nutritional Appearance: well nourished Orientation: alert, awake, oriented x3 and not confused [facility] Mouth: oral mucosae normal and mucous membranes abnormal Eyes Conjunctivae: conjunctivae normal Sclera: sclerae normal Pupils: PERRL EOM: EOM intact bilaterally Resp Effort & Inspection: normal respiratory effort, able to speak in complete sentences, no respiratory distress and no use of accessory muscles Auscultation: no rales, no rhonchi and wheezes Cardio Rate: regular rate Rhythm: regular rhythm Heart Sounds: no click, no gallops, no murmurs and no rubs Pulses: normal peripheral pulses Skin General: no rashes or lesions noted, No jaundice and No petechiae Neuro General: alert, oriented x3, gait normal and no focal motor deficits Speech: speech normal Extrem Other: Plus one edema to bilateral lower extremities. No significant erythema. Homans sign negative bilaterally. Distal sensation is intact. Distal pulses are intact. <Josephine Lynn DO - Last Filed: 01/22/19 08:33> Initial Vital Signs Initial Vital Signs: Vital Signs Temperature 97.4 F L 01/21/19 11:21 Pulse Rate 69 01/21/19 11:21 Respiratory Rate 20 01/21/19 11:21 Blood Pressure 142/77 H 01/21/19 11:21 Pulse Oximetry 95 01/21/19 11:21 Course <LESVIA Conklin - Last Filed: 01/21/19 22:39> Orders Ordered: Discontinued Medications Ceftriaxone Sodium (Rocephin) 1,000 mg IM NOW ONE Stop: 01/21/19 16:28 Last Admin: 01/21/19 16:53 Dose: 1,000 mg Vital Signs - 8 hr 01/21/19 17:14 Pulse Rate 77 Respiratory Rate 18 Blood Pressure 171/93 H Pulse Oximetry 94 <Josephine Lynn DO - Last Filed: 01/22/19 08:33> Orders Ordered: Discontinued Medications Ceftriaxone Sodium (Rocephin) 1,000 mg IM NOW ONE Stop: 01/21/19 16:28 Last Admin: 01/21/19 16:53 Dose: 1,000 mg Vital Signs - 8 hr 01/21/19 17:14 Pulse Rate 77 Respiratory Rate 18 Blood Pressure 171/93 H Pulse Oximetry 94 MDM - SOB/Dyspnea <LESVIA Conklin - Last Filed: 01/21/19 22:39> Lab Data Result diagrams: 01/21/19 12:45 01/21/19 12:45 Lab Results 01/21/19 01/21/19 01/21/19 Range/Units 12:45 12:45 12:45 WBC 10.1 (4.5-11.0) X10^3/uL RBC 3.82 L (4.5-5.9) X10^6/uL Hgb 12.6 L (13.5-17.5) g/dL Hct 37.7 L (41-53) % MCV 98.7 (80-100) fL MCH 33.1 (26-34) PG MCHC 33.6 (30-36) % RDW 14.1 (11.6-14.8) % Plt Count 202 (150-400) X10^3/uL Neut % (Auto) 70.2 (50-75) % Lymph % (Auto) 21.2 L (25-40) % [place] % (Auto) 7.5 (3-14) % Eos % (Auto) 0.7 L (2-4) % Baso % (Auto) 0.4 (0-2) % Neut # (Auto) 7100 H (3460-7116) /uL Lymph # (Auto) 2100 (4122-9131) /uL [place] # (Auto) 800 (0-900) /uL Eos # (Auto) 100 (0-450) /uL Baso # (Auto) 0 (0-100) /uL D-Dimer (<230) ng/mL Sodium 136 L (137-145) mmol/L Potassium 4.4 (3.4-5.1) mmol/L Chloride 99 (98-107) mmol/L Carbon Dioxide 29 (22-32) mmol/L BUN 14 (9-20) mg/dL Creatinine 0.70 (0.66-1.25) mg/dL Estimated GFR > 60.0 (>60) mL/min BUN/Creatinine Ratio 20.0 (6-22) Glucose 227 H (80-110) mg/dL Lactate 1.6 (0.7-2.1) mmol/L Calcium 7.9 L (8.4-10.2) mg/dL Total Bilirubin 0.4 (0.2-1.3) mg/dL AST 44 (17-59) IU/L ALT 44 (21-72) IU/L Alkaline Phosphatase 62 (38-126) U/L Total Creatine Kinase (55-170) U/L CK-MB (CK-2) (<2.37) ng/mL CK-MB (CK-2) Rel Index (1.5-5.0) % Troponin I (0.01-0.034) ng/mL B-Natriuretic Peptide (<100) Total Protein 7.2 (6.3-8.2) g/dL Albumin 4.2 (3.5-5.0) g/dL Globulin 3.1 (1.7-4.1) g/dL Albumin/Globulin Ratio 1.4 (1.0-2.8) Procalcitonin (<0.5) ng/mL 01/21/19 01/21/19 01/21/19 Range/Units 12:45 12:45 12:45 WBC (4.5-11.0) X10^3/uL RBC (4.5-5.9) X10^6/uL Hgb (13.5-17.5) g/dL Hct (41-53) % MCV (80-100) fL MCH (26-34) PG MCHC (30-36) % RDW (11.6-14.8) % Plt Count (150-400) X10^3/uL Neut % (Auto) (50-75) % Lymph % (Auto) (25-40) % [place] % (Auto) (3-14) % Eos % (Auto) (2-4) % Baso % (Auto) (0-2) % Neut # (Auto) (0111-5150) /uL Lymph # (Auto) (8674-6352) /uL [place] # (Auto) (0-900) /uL Eos # (Auto) (0-450) /uL Baso # (Auto) (0-100) /uL D-Dimer < 200 (<230) ng/mL Sodium (137-145) mmol/L Potassium (3.4-5.1) mmol/L Chloride (98-107) mmol/L Carbon Dioxide (22-32) mmol/L BUN (9-20) mg/dL Creatinine (0.66-1.25) mg/dL Estimated GFR (>60) mL/min BUN/Creatinine Ratio (6-22) Glucose (80-110) mg/dL Lactate (0.7-2.1) mmol/L Calcium (8.4-10.2) mg/dL Total Bilirubin (0.2-1.3) mg/dL AST (17-59) IU/L ALT (21-72) IU/L Alkaline Phosphatase (38-126) U/L Total Creatine Kinase 290 H (55-170) U/L CK-MB (CK-2) 4.54 H (<2.37) ng/mL CK-MB (CK-2) Rel Index 1.6 (1.5-5.0) % Troponin I < 0.012 (0.01-0.034) ng/mL B-Natriuretic Peptide (<100) Total Protein (6.3-8.2) g/dL Albumin (3.5-5.0) g/dL Globulin (1.7-4.1) g/dL Albumin/Globulin Ratio (1.0-2.8) Procalcitonin 0.08 (<0.5) ng/mL 01/21/ Range/Units 12:45 WBC (4.5-11.0) X10^3/uL RBC (4.5-5.9) X10^6/uL Hgb (13.5-17.5) g/dL Hct (41-53) % MCV (80-100) fL MCH (26-34) PG MCHC (30-36) % RDW (11.6-14.8) % Plt Count (150-400) X10^3/uL Neut % (Auto) (50-75) % Lymph % (Auto) (25-40) % [place] % (Auto) (3-14) % Eos % (Auto) (2-4) % Baso % (Auto) (0-2) % Neut # (Auto) (5635-8398) /uL Lymph # (Auto) (6331-9600) /uL [place] # (Auto) (0-900) /uL Eos # (Auto) (0-450) /uL Baso # (Auto) (0-100) /uL D-Dimer (<230) ng/mL Sodium (137-145) mmol/L Potassium (3.4-5.1) mmol/L Chloride (98-107) mmol/L Carbon Dioxide (22-32) mmol/L BUN (9-20) mg/dL Creatinine (0.66-1.25) mg/dL Estimated GFR (>60) mL/min BUN/Creatinine Ratio (6-22) Glucose (80-110) mg/dL Lactate (0.7-2.1) mmol/L Calcium (8.4-10.2) mg/dL Total Bilirubin (0.2-1.3) mg/dL AST (17-59) IU/L ALT (21-72) IU/L Alkaline Phosphatase (38-126) U/L Total Creatine Kinase (55-170) U/L CK-MB (CK-2) (<2.37) ng/mL CK-MB (CK-2) Rel Index (1.5-5.0) % Troponin I (0.01-0.034) ng/mL B-Natriuretic Peptide 184 H (<100) Total Protein (6.3-8.2) g/dL Albumin (3.5-5.0) g/dL Globulin (1.7-4.1) g/dL Albumin/Globulin Ratio (1.0-2.8) Procalcitonin (<0.5) ng/mL Imaging Data Chest x-ray: Radiologist's impression: [address] [id number] XRay Report Signed Patient: Carlos Randall RMR#: [id number] : 3Acct:[id number] Age/Sex: 63 / MDate of Service: 01/21/19 Loc: ED Accession Number: [id number] Procedure: XR chest 2V Ordering Provider: Josephine Lynn D.O. PROCEDURE: XR CHEST 2V INDICATIONS: sob TECHNIQUE: 2 views of the chest were acquired. COMPARISON: [facility], CR, XR CHEST 2V, 01/19/2019, 10:03. FINDINGS: Surgical changes and devices: None. Lungs and pleura: Lungs are clear. No pleural effusions or pneumothorax. Mediastinum: Mediastinal contours are normal. Heart size is normal. Bones and chest wall: No suspicious bony abnormalities. Soft tissues appear unremarkable. IMPRESSION: No acute process. Dictated by: Perri Castillo M.D. on 01/21/2019 at 12:53 Approved by: Perri Castillo M.D. on 01/21/2019 at 12:54 CT scan - chest: Radiologist's impression: [address] [address] [address] Scan Report Signed Patient: Carlos Randall RMR#: [id number] : 3Acct:[id number] Age/Sex: 63 / MDate of Service: 01/21/19 Loc: ED Accession Number: [id number] Procedure: CT angio chest PE protocol Ordering Provider: Emerson Huynh PROCEDURE: CT ANGIO CHEST PE PROTOCOL INDICATIONS: Sent here from primary care for PE rule out TECHNIQUE: After the administration of intravenous contrast, 2 mm thick sections acquired from the pulmonary apices to the posterior costophrenic angles. 3-dimensional maximum intensity projection (MIP) coronal and sagittal reformats were then acquired through the thorax. For radiation dose reduction, the following was used: automated exposure control, adjustment of mA and/or kV according to patient size. COMPARISON: [facility], CT, CT CHEST WO CON, 12/22/2018, 3:37. FINDINGS: Image quality: Excellent. Pulmonary arteries: Pulmonary arteries are normal in size, and demonstrate no intraluminal filling defects to suggest central pulmonary embolism. Lungs and pleura: No change in mild chronic interstitial pulmonary opacity. Lungs are otherwise clear. No pleural effusions or pneumothorax. Central and peripheral airways are patent. Mediastinum: Heart size is normal, without pericardial effusion. There is calcification of the coronary vasculature. No mediastinal or hilar adenopathy. Thoracic aorta is normal in caliber and enhancement. Esophagus is normal in caliber, without hiatal hernia. Bones and chest wall: No suspicious bony lesions. Thoracic spine ankylosis. Ribs and thoracic spine appear intact throughout. Thyroid gland is within normal limits. No axillary or supraclavicular adenopathy. Abdomen: Visualized upper abdominal solid organs appear normal in the early arterial phase of enhancement. IMPRESSION: 1. Mild chronic interstitial lung disease. 2. No pulmonary embolus. 3. Coronary artery disease. 4. Thoracic spine ankylosis. Dictated by: Perri Castillo M.D. on 01/21/2019 at 14:49 Approved by: Perri Castillo M.D. on 01/21/2019 at 14:52 Venous US: Radiologist's impression: [address] [address] Ultrasound Report Signed Patient: Carlos Randall RMR#: [id number] : 3Acct:[id number] Age/Sex: 63 / MDate of Service: 01/21/19 Loc: ED Accession Number: [id number] Procedure: US periph venous low extrem bi Ordering Provider: Emerson Huynh PROCEDURE: US PERIPH VENOUS LOW EXTREM BI INDICATIONS: Swelling and discomfort to bilateral lower extremities TECHNIQUE: Real-time imaging, as well as color and pulse Doppler interrogation, were performed of the deep veins of both legs from the inguinal ligament to the popliteal fossa. COMPARISON: None. FINDINGS: Right: The common femoral, femoral and popliteal veins are normally compressible, and free of intraluminal thrombus. Color and pulse Doppler demonstrate normal phasic intravascular flow. There is normal augmentation response to distal compression maneuver. Left: The common femoral, femoral and popliteal veins are normally compressible, and free of intraluminal thrombus. Color and pulse Doppler demonstrate normal phasic intravascular flow. There is normal augmentation response to distal compression maneuver. IMPRESSION: Negative bilateral duplex ultrasound for DVT of the lower extremities. Dictated by: Mario Thomason M.D. on 01/21/2019 at 14:38 Approved by: Mario Thomason M.D. on 01/21/2019 at 14:39 ECG Data Interpretation: EKG shows sinus rhythm with no ST elevation or depression. No ectopy. Ventricular rate is 72. Pr interval 178. QRS duration 97. QTC of 430. MDM Narrative Medical decision making narrative: CBC shows mild anemia otherwise is unremarkable. Chem panel was obtained and was also unremarkable.Cardiac enzymes were obtained were unremarkable. D-dimer was obtained was negative. BNP is slightly elevated at 184. Ultrasound of bilateral lower extremities was obtained was negative for DVT. Chest x-ray was obtained and was unremarkable. PE protocol CT was obtained and was negative for PE. Will have patient continue taking antibiotics and steroids as prescribed. Follow up with primary care provider next few days for re-evaluation. Patient advised to elevate his lower extremities to help with lower extremity edema. Differential on lower extremity edema that has been going on for the last several months is dependent edema versus CHF. Discussed case with Dr. Londono. For any worsening symptoms return to the emergency room. Differential the shortness of breath is COPD exacerbation versus pneumonia or a viral illness exacerbating. Use COPD medications as prescribed. <Josephine Leah, DO - Last Filed: 01/22/19 08:33> Lab Data Lab Results 01/21/19 01/21/19 01/21/19 Range/Units 12:45 12:45 12:45 WBC 10.1 (4.5-11.0) X10^3/uL RBC 3.82 L (4.5-5.9) X10^6/uL Hgb 12.6 L (13.5-17.5) g/dL Hct 37.7 L (41-53) % MCV 98.7 (80-100) fL MCH 33.1 (26-34) PG MCHC 33.6 (30-36) % RDW 14.1 (11.6-14.8) % Plt Count 202 (150-400) X10^3/uL Neut % (Auto) 70.2 (50-75) % Lymph % (Auto) 21.2 L (25-40) % [place] % (Auto) 7.5 (3-14) % Eos % (Auto) 0.7 L (2-4) % Baso % (Auto) 0.4 (0-2) % Neut # (Auto) 7100 H (8821-9480) /uL Lymph # (Auto) 2100 (4679-5655) /uL [place] # (Auto) 800 (0-900) /uL Eos # (Auto) 100 (0-450) /uL Baso # (Auto) 0 (0-100) /uL D-Dimer (<230) ng/mL Sodium 136 L (137-145) mmol/L Potassium 4.4 (3.4-5.1) mmol/L Chloride 99 (98-107) mmol/L Carbon Dioxide 29 (22-32) mmol/L BUN 14 (9-20) mg/dL Creatinine 0.70 (0.66-1.25) mg/dL Estimated GFR > 60.0 (>60) mL/min BUN/Creatinine Ratio 20.0 (6-22) Glucose 227 H (80-110) mg/dL Lactate 1.6 (0.7-2.1) mmol/L Calcium 7.9 L (8.4-10.2) mg/dL Total Bilirubin 0.4 (0.2-1.3) mg/dL AST 44 (17-59) IU/L ALT 44 (21-72) IU/L Alkaline Phosphatase 62 (38-126) U/L Total Creatine Kinase (55-170) U/L CK-MB (CK-2) (<2.37) ng/mL CK-MB (CK-2) Rel Index (1.5-5.0) % Troponin I (0.01-0.034) ng/mL B-Natriuretic Peptide (<100) Total Protein 7.2 (6.3-8.2) g/dL Albumin 4.2 (3.5-5.0) g/dL Globulin 3.1 (1.7-4.1) g/dL Albumin/Globulin Ratio 1.4 (1.0-2.8) Procalcitonin (<0.5) ng/mL 01/21/19 01/21/19 01/21/19 Range/Units 12:45 12:45 12:45 WBC (4.5-11.0) X10^3/uL RBC (4.5-5.9) X10^6/uL Hgb (13.5-17.5) g/dL Hct (41-53) % MCV (80-100) fL MCH (26-34) PG MCHC (30-36) % RDW (11.6-14.8) % Plt Count (150-400) X10^3/uL Neut % (Auto) (50-75) % Lymph % (Auto) (25-40) % [place] % (Auto) (3-14) % Eos % (Auto) (2-4) % Baso % (Auto) (0-2) % Neut # (Auto) (4977-8097) /uL Lymph # (Auto) (9175-2104) /uL [place] # (Auto) (0-900) /uL Eos # (Auto) (0-450) /uL Baso # (Auto) (0-100) /uL D-Dimer < 200 (<230) ng/mL Sodium (137-145) mmol/L Potassium (3.4-5.1) mmol/L Chloride (98-107) mmol/L Carbon Dioxide (22-32) mmol/L BUN (9-20) mg/dL Creatinine (0.66-1.25) mg/dL Estimated GFR (>60) mL/min BUN/Creatinine Ratio (6-22) Glucose (80-110) mg/dL Lactate (0.7-2.1) mmol/L Calcium (8.4-10.2) mg/dL Total Bilirubin (0.2-1.3) mg/dL AST (17-59) IU/L ALT (21-72) IU/L Alkaline Phosphatase (38-126) U/L Total Creatine Kinase 290 H (55-170) U/L CK-MB (CK-2) 4.54 H (<2.37) ng/mL CK-MB (CK-2) Rel Index 1.6 (1.5-5.0) % Troponin I < 0.012 (0.01-0.034) ng/mL B-Natriuretic Peptide (<100) Total Protein (6.3-8.2) g/dL Albumin (3.5-5.0) g/dL Globulin (1.7-4.1) g/dL Albumin/Globulin Ratio (1.0-2.8) Procalcitonin 0.08 (<0.5) ng/mL 01/21/ Range/Units 12:45 WBC (4.5-11.0) X10^3/uL RBC (4.5-5.9) X10^6/uL Hgb (13.5-17.5) g/dL Hct (41-53) % MCV (80-100) fL MCH (26-34) PG MCHC (30-36) % RDW (11.6-14.8) % Plt Count (150-400) X10^3/uL Neut % (Auto) (50-75) % Lymph % (Auto) (25-40) % [place] % (Auto) (3-14) % Eos % (Auto) (2-4) % Baso % (Auto) (0-2) % Neut # (Auto) (0365-9128) /uL Lymph # (Auto) (9505-9982) /uL [place] # (Auto) (0-900) /uL Eos # (Auto) (0-450) /uL Baso # (Auto) (0-100) /uL D-Dimer (<230) ng/mL Sodium (137-145) mmol/L Potassium (3.4-5.1) mmol/L Chloride (98-107) mmol/L Carbon Dioxide (22-32) mmol/L BUN (9-20) mg/dL Creatinine (0.66-1.25) mg/dL Estimated GFR (>60) mL/min BUN/Creatinine Ratio (6-22) Glucose (80-110) mg/dL Lactate (0.7-2.1) mmol/L Calcium (8.4-10.2) mg/dL Total Bilirubin (0.2-1.3) mg/dL AST (17-59) IU/L ALT (21-72) IU/L Alkaline Phosphatase (38-126) U/L Total Creatine Kinase (55-170) U/L CK-MB (CK-2) (<2.37) ng/mL CK-MB (CK-2) Rel Index (1.5-5.0) % Troponin I (0.01-0.034) ng/mL B-Natriuretic Peptide 184 H (<100) Total Protein (6.3-8.2) g/dL Albumin (3.5-5.0) g/dL Globulin (1.7-4.1) g/dL Albumin/Globulin Ratio (1.0-2.8) Procalcitonin (<0.5) ng/mL Discharge Plan Departure Patient Disposition: Home Clinical Impression: Dependent edema COPD (chronic obstructive pulmonary disease) Qualifiers: COPD type: unspecified COPD Qualified Code(s): J44.9 - Chronic obstructive pulmonary disease, unspecified Discharge Date/Time: 01/21/19 17:30 Interventions: ED Discharge Assessment Last Done: 01/21/19 17:14 Instructions: DI for Chronic Obstructive Pulmonary Disease Activity Restrictions/Additional Instructions: Laboratory results today show elevation of BNP which may be an indication of congestive heart failure. Imaging today was unremarkable. Lower extremity edema is either due to dependent edema or due to congestive heart failure. Continue using the antibiotics and steroids as prescribed to help with atypical pneumonia and COPD exacerbation. Use elevation to help with swelling to the lower extremities. You are placed on Lasix which is a diuretic use as directed. Follow up with her primary care provider next couple days for re-evaluation. No blood clot is appreciated to lungs or legs on imaging today. Prescriptions: New furosemide [Lasix] 20 mg tablet 20 mg PO DAILY Qty: 30 RF: 0 No Action clotrimazole [Lotrimin AF] 1 % cream 1 applictn TOP BID Qty: 30 RF: 1 pen needle, diabetic [Comfort EZ Pen [place]] 29 gauge x 1/2 needle .ROUTE .MEDSUPPLY Qty: 100 RF: 0 pen needle, diabetic [Comfort EZ Pen [place]] 31 gauge x 5/16 needle .ROUTE .MEDSUPPLY Qty: 100 RF: 3 levothyroxine [Synthroid] 50 mcg tablet 50 mcg PO QAM Qty: 90 RF: 0 metformin [Glucophage] 500 mg tablet 500 mg PO BID Qty: 180 RF: 0 metoprolol tartrate 25 mg tablet 25 mg PO BID Qty: 180 RF: 0 lisinopril 2.5 mg tablet 2.5 mg PO QAM Qty: 90 RF: 0 citalopram [Celexa] 40 mg tablet 40 mg PO DAILY Qty: 90 RF: 0 insulin glargine 100 unit/mL (3 mL) insulin pen 70 unit subcut BID Qty: 15 RF: 0 insulin aspart U-100 100 unit/mL insulin pen See Rx Instructions subcut BIDWM Qty: 15 RF: 0 albuterol sulfate [Proventil HFA] 90 mcg/actuation HFA aerosol inhaler 1 puff INHALATION PRN PRN (Reason: asthma) RF: 0 prednisone 20 mg tablet 20 mg PO DAILY Qty: 4 RF: 0 doxycycline hyclate 100 mg tablet 100 mg PO BID Qty: 20 RF: 0 Qvar RediHaler 40 mcg/actuation HFA aerosol breath activated 1 puff Inhalation PRN PRN (Reason: Shortness Of Breath) RF: 0 atorvastatin 40 mg tablet 40 mg PO BEDTIME RF: 0 isosorbide mononitrate 60 MG tablet extended release 24 hr 60 mg PO QAM RF: 0 gabapentin 300 mg capsule 300 mg PO BID RF: 0 Referrals: Lakia Londono DO [Primary Care Provider] - <Josephine Lynn DO - Last Filed: 01/22/19 08:33> Cosign ED Attending Shayna Attestation: I was immediately available in the department for consultation. Documentation has been reviewed. I agree with assessment and plan.
[2019-01-21 14:21] VITALS: BP 161/84; PULSE 71; RESP 16; O2SAT 94
[2019-01-21 15:15] LABS: Creatine Kinase 290 U/L (55-170)
[2019-01-21 15:27] LABS: Troponin I < 0.012 ng/mL (0.01-0.034)
[2019-01-21 15:29] LABS: B Type Natriuretic Peptide 184 (<100)
[2019-01-21 15:48] LABS: Procalcitonin 0.08 ng/mL (<0.5)
[2019-01-21 15:58] LABS: Albumin 4.2 g/dL (3.5-5.0); Albumin Globulin Ratio 1.4 (1.0-2.8); Chloride 99 mmol/L (98-107); Globulin 3.1 g/dL (1.7-4.1); Potassium 4.4 mmol/L (3.4-5.1); Sodium 136 mmol/L (137-145)
[2019-01-21 16:07] LABS: CKMB % Relative Index 1.6 % (1.5-5.0); Creatine Kinase MB 4.54 ng/mL (<2.37)
[2019-01-21] MEDS: cefTRIAXone 2,000 MG VIAL 1000 MG IM (16:53)
[2019-01-21 17:14] VITALS: BP 171/93; PULSE 77; RESP 18; O2SAT 94
== END 2019-01-21 17:30 | disposition home or self-care (01) ==
PROVIDERS: Emergency Medicine; Emergency Provider Nurse Practitioner Family; Family Provider Family Medicine; PCP Family Medicine
DX: R60.9 Edema, unspecified (principal); J44.9 Chronic obstructive pulmonary disease, unspecified
CPT/HCPCS: 36415; 71046; 71275; 80053; 82550; 82553; 83605; 83880; 84145; 84484; 85025; 85379; 93005; 93970; 99283; 99285; J0696

== ENCOUNTER 2019-03-07 01:30 | Inpatient (IN) | payer MEDICARE, OTHER, SELFPAY ==
[2018-09-14 15:47] VITALS: BMI 35.8
[2019-03-07] VITALS (27 sets, daily range): BP systolic 138–204; BP diastolic 68–106; PULSE 78–98; RESP 16–78; TEMP 36.6–37.1; O2SAT 88–97; BMI 35.5
[2019-03-07] MEDS: ALBUTEROL/IPRATROPIUM 3 ML AMPUL INH ×2 (01:36→02:25)
--- NOTE | 2019-03-07 01:49 | RT ---
PT APPEARS W/ POSSIBLE FLUID OVERLOAD. ED DR WYATT.
--- NOTE | 2019-03-07 02:05 | DI.RAD.S_ITS ---
PROCEDURE: XR CHEST 1V INDICATIONS: SOB TECHNIQUE: One view of the chest was acquired. COMPARISON: [facility], CR, XR CHEST 2V, 01/21/2019, 12:39. FINDINGS: Surgical changes and devices: None. Lungs and pleura: Low lung volumes with coarse interstitial markings bilaterally. No focal consolidation. No pleural effusions or pneumothorax. Mediastinum: Mediastinal contours appear normal. Heart size is normal. Bones and chest wall: No suspicious bony lesions. Overlying soft tissues appear unremarkable. IMPRESSION: Low lung volumes with coarse interstitial marking consistent with history of interstitial lung disease Dictated by: Nano Holman M.D. on 03/07/2019 at 8:24 Approved by: Nano Holman M.D. on 03/07/2019 at 8:25
[2019-03-07 02:12] LABS: Add Manual Diff / Slide Review NO; Basophils Absolute Auto 0 /uL (0-100); Basophils Percent Auto 0.3 % (0-2); Eosinophils Absolute Auto 100 /uL (0-450); Eosinophils Percent Auto 0.9 % (2-4); Hematocrit 42.3 % (41-53); Hemoglobin 14.6 g/dL (13.5-17.5); Lymphocytes Absolute Auto 1500 /uL (1100-4500); Lymphocytes Percent Auto 18.5 % (25-40); Mean Corpuscular HGB Conc 34.5 % (30-36); Mean Corpuscular Volume 98.6 fL (80-100); Monocytes Absolute Auto 600 /uL (0-900); Monocytes Percent Auto 7.2 % (3-14); Neutrophils Absolute Auto 6000 /uL (1500-7000); Neutrophils Percent Auto 73.1 % (50-75); Platelet Count 249 X10^3/uL (150-400); Red Blood Cell Count 4.29 X10^6/uL (4.5-5.9); Red Cell Distribution Width 14.7 % (11.6-14.8); White Blood Cell Count 8.2 X10^3/uL (4.5-11.0)
[2019-03-07 02:18] LABS: Alanine Aminotransferase 48 IU/L (21-72); Albumin 4.1 g/dL (3.5-5.0); Albumin Globulin Ratio 1.2 (1.0-2.8); Alkaline Phosphatase 98 U/L (38-126); Aspartate Aminotransferase 56 IU/L (17-59); BUN Creatinine Ratio 7.8 (6-22); Bilirubin Total 0.5 mg/dL (0.2-1.3); Blood Urea Nitrogen 7 mg/dL (9-20); Calcium 8.2 mg/dL (8.4-10.2); Carbon Dioxide 28 mmol/L (22-32); Chloride 100 mmol/L (98-107); Creatine Kinase 217 U/L (55-170); Estimated Glomerular Filt Rate > 60.0 mL/min (>60); Globulin 3.5 g/dL (1.7-4.1); Glucose 226 mg/dL (80-110); HEMOLYSIS < 15 (0-50); Lipase 42 U/L (23-300); Potassium 3.6 mmol/L (3.4-5.1); Sodium 138 mmol/L (137-145); Total Protein 7.6 g/dL (6.3-8.2)
[2019-03-07] MEDS: methylPREDNISolone 125 MG/2 ML VIAL IV (02:22)
[2019-03-07] MEDS: SODIUM CHLORIDE 0.9% 1,000 ML 150 ML IV ×2 (02:22→08:38)
[2019-03-07 02:29] LABS: Troponin I 0.014 ng/mL (0.01-0.034)
[2019-03-07 02:33] LABS: CKMB % Relative Index 1.9 % (1.5-5.0); Creatine Kinase MB 4.15 ng/mL (<2.37)
[2019-03-07 03:05] LABS: B Type Natriuretic Peptide 299 (<100)
--- NOTE | 2019-03-07 03:44 | DI.CT.S_ITS ---
PROCEDURE: CT ANGIO CHEST PE PROTOCOL INDICATIONS: CP, SOB, hypoxia TECHNIQUE: After the administration of intravenous contrast, 2 mm thick sections acquired from the pulmonary apices to the posterior costophrenic angles. 3-dimensional maximum intensity projection (MIP) coronal and sagittal reformats were then acquired through the thorax. For radiation dose reduction, the following was used: automated exposure control, adjustment of mA and/or kV according to patient size. COMPARISON: [facility], CT, CT ANGIO CHEST PE PROTOCOL, 01/21/2019, 14:41. FINDINGS: Image quality: Excellent. Pulmonary arteries: Pulmonary arteries are normal in size, and demonstrate no intraluminal filling defects to suggest central pulmonary embolism. Lungs and pleura: Lung volumes are low. Moderate size bilateral pleural effusions layer dependently posteriorly. Thickening of the interstitium diffusely. Small patchy subpleural alveolar opacities posterior right upper lobe, lateral left midlung, and posterior lung bases. Mild thickening of the major fissures bilaterally. Central and peripheral airways are patent. Mediastinum: Heart size is normal, without pericardial effusion. Heavy coronary artery calcification is present. Multiple shotty mediastinal lymph nodes and mildly increased lymph node size in the AP window, right pretracheal, and subcarinal regions. No bulky hilar adenopathy. Thoracic aorta is normal in caliber and enhancement. Esophagus is normal in caliber, without hiatal hernia. Bones and chest wall: No suspicious bony lesions. Ribs and thoracic spine appear intact throughout. Anterior bridging osteophytosis through the mid and lower thoracic spine. Thyroid gland is normal. No axillary or supraclavicular adenopathy. Abdomen: Visualized upper abdominal solid organs appear normal in the early arterial phase of enhancement. IMPRESSION: 1. Interval development of moderate-sized bilateral pleural effusions. In combination with diffuse interstitial thickening, this may reflect interstitial edema. Consider congestive heart failure. 2. Patchy subpleural parenchymal opacities bilaterally may be early pulmonary edema or infection/inflammation.. 3. No pulmonary embolus. 4. Heavy coronary artery calcification. 5. Chronic appearing adenopathy in the mediastinum is nonspecific. Concordant with preliminary results. Dictated by: Nano Holman M.D. on 03/07/2019 at 8:35 Approved by: Nano Holman M.D. on 03/07/2019 at 8:45
[2019-03-07] MEDS: LORazepam 2 MG/ML SYRINGE 1 MG IV (04:03)
--- NOTE | 2019-03-07 05:09 | ED.SOB ---
HPI - SOB/Dyspnea General Chief Complaint: Shortness of Breath/Dyspnea Stated Complaint: SOA Time Seen by Provider: 03/07/19 01:35 Source: patient and EMS Mode of arrival: EMS Limitations: no limitations History of Present Illness 63-year-old former smoker with history of asthma, COPD and diabetes presents with a chief complaint of shortness of breath and high blood pressure. His shortness of breath includes significant wheeze but no cough, fever or chills. He has had no nausea or vomiting. He denies any abdominal pain or diarrhea. He denies any missing medications, recent travel. MD Complaint: shortness of breath and cough Onset (ago): hour(s) Severity: moderate Consistency/Duration: intermittent Relieving factors: oxygen and rest Exacerbating factors: nothing Known history of: COPD and asthma Associated symptoms: denies other symptoms Treatment prior to arrival: oxygen and bronchodilator Related Data Home oxygen amount: none Home Medications Medication Instructions Recorded Confirmed atorvastatin 40 mg PO BEDTIME 11/23/18 02/11/19 gabapentin 300 mg PO BID 11/23/18 02/11/19 isosorbide mononitrate 60 mg PO QAM 11/23/18 02/11/19 Previous Rx's Medication Instructions Recorded pen needle, diabetic 29 gauge x #100 each 03/11/1811/03 pen needle, diabetic 31 gauge x #100 each 09/09/1803/17 levothyroxine 50 mcg tablet 50 mcg PO QAM #90 tab 11/09/18 metoprolol tartrate 25 mg tablet 25 mg PO BID #180 tab 11/09/18 lisinopril 2.5 mg tablet 2.5 mg PO QAM #90 tab 12/02/18 citalopram 40 mg tablet 40 mg PO DAILY #90 tab 01/05/19 furosemide [Lasix] 20 mg PO DAILY #30 tab 01/21/19 insulin aspart U- 100 100 unit/mL See Rx Instructions SUBCUT BIDWM 02/09/19 subcutaneous pen #15 ml insulin glargine (U-100) 100 75 unit SUBCUT BID #15 ml 02/11/19 unit/mL (3 mL) subcutaneous pen albuterol sulfate HFA 90 2 puff INHALATION QID PRN #18 gram 02/14/19 mcg/actuation aerosol inhaler beclomethasone diprop 40 1 puff INHALATION BID #10.6 gram 02/21/19 mcg/actuation HFA breath activated aerosol Allergies Allergy/AdvReac Type Severity Reaction Status Date / Time adhesive Allergy Mild REDNESS/ITC Verified 02/11/19 15:05 HINESS Review of Systems Constitutional Denies chills, Denies fever(s), Denies lethargy and Denies weakness Eyes Denies change in vision, Denies eye discharge, Denies irritation and Denies loss of vision ENT Ears, Nose, Mouth, and Throat: Denies change in voice, Denies neck pain and Denies sore throat Cardiovascular Denies chest pain, Denies irregular heart rhythm, Denies lightheadedness, Denies palpitations, Reports dyspnea, Denies dyspnea on exertion and Denies orthopnea Respiratory Reports cough, Reports dyspnea, Denies dyspnea on exertion and Reports wheezing Gastrointestinal Gastrointestinal: Denies abdominal pain, Denies change in bowel habits, Denies diarrhea, Denies nausea and Denies vomiting Genitourinary Denies hematuria, Denies flank pain, Denies urinary incontinence and Denies urinary urgency Musculoskeletal Denies neck pain Integumentary/Breasts Denies pruritus, Denies erythema, Denies rash and Denies wounds Neurologic Denies confusion, Denies loss of vision and Denies weakness Psychiatric Denies anxiety, Denies confusion, Denies depression, Denies homicidal ideation and Denies suicidal ideation Endocrine Denies palpitations Hematologic/Lymphatic Denies easy bruising Allergic/Immunologic Reports wheezing [facility] Medical History COPD (chronic obstructive pulmonary disease) (Chronic) Chronic cough (Chronic) Coronary artery disease (Chronic 2006) Depression (Chronic 2008) Diabetes (Chronic 1994) Eczema (Chronic) Foot pain (Chronic) GERD (gastroesophageal reflux disease) (Chronic 2012) Hyperlipidemia (Chronic) Hypertension (Chronic) Hypothyroidism (Chronic) Kidney disease (Chronic 2009) Neuropathy (Chronic) Obstructive sleep apnea (Chronic) Shoulder pain (Chronic) Chicken pox (Resolved 1956) Chickenpox (Resolved 1956) Gout (Resolved) Measles (Resolved 1955) Measles (Resolved 1955) Mumps (Resolved 1958) Mumps (Resolved 1958) Status post myocardial infarction (Resolved) Strain of muscle of right groin region (Resolved 03/30/18) Surgical History Anesthesia (Resolved) History of heart artery stent (Resolved 2006) History of heart artery stent (Resolved 2010) Hx of shoulder surgery (Resolved 2005) Family History Brother Age: 64 Diabetes mellitus Hyperlipidemia Mother Heart disease Hypertension Hyperlipidemia Diabetes mellitus Grandmother Diabetes mellitus Brother No problems noted. Sister Breast cancer Social History household members: spouse, children and other Smoking Status: Current every day smoker Tobacco: How many years used: 45 alcohol intake: current Family History Brother Age: 64 Diabetes mellitus Hyperlipidemia Mother Heart disease Hypertension Hyperlipidemia Diabetes mellitus Grandmother Diabetes mellitus Brother No problems noted. Sister Breast cancer Social History household members: spouse, children and other Smoking Status: Current every day smoker Tobacco: How many years used: 45 alcohol intake: current Exam Narrative Exam Narrative: GENERAL: 63-year-old male, anxious in mild respiratory distress, morbidly obese HEAD: Atraumatic. Normocephalic. No temporal or scalp tenderness. EYES: Pupils equal round and reactive. Extraocular motions intact. No scleral icterus. No injection or drainage. ENT: Nose without bleeding, purulent drainage or septal hematoma. Throat without erythema, tonsillar hypertrophy or exudate. Uvula midline. Airway patent. NECK: Trachea midline. No JVD or lymphadenopathy. Supple, nontender, no meningeal signs. CARDIOVASCULAR: Regular rate and rhythm without murmurs, gallops, or rubs. RESPIRATORY: Decreased breath sounds bilaterally with prolonged expiratory phase and expiratory wheeze GASTROINTESTINAL: Abdomen soft, non-tender, nondistended. No hepato-splenomegaly, or palpable masses. No guarding. EXTREMITIES: No clubbing, cyanosis, or edema. No joint tenderness, effusion, or edema noted. BACK: Nontender without deformity or crepitance. No flank tenderness. NEURO: AOx3. SKIN: No rash or erythema. Initial Vital Signs Initial Vital Signs: Vital Signs Temperature 98.5 F 03/07/19 01:36 Pulse Rate 88 03/07/19 01:36 Respiratory Rate 22 03/07/19 01:36 Blood Pressure 204/94 H 03/07/19 01:36 Pulse Oximetry 88 L 03/07/19 01:36 Course Orders Ordered: ED Orders 03/07/19 EKG-12 Lead Routine 03/07/19 01:45 BNP [B Type Natriuretic Peptide] Stat Complete Blood Count AUTO DIFF Stat Comprehensive Metabolic Panel Stat Lipase Stat Troponin & CK Cardiac Panel Stat 03/07/19 02:05 XR chest 1V Stat 03/07/19 03:44 CT angio chest PE protocol Stat Sodium Chloride (Normal Saline 0.9%) 1,000 mls @ 150 mls/hr IV CONT LUCIANO Last Infusion: 03/07/19 05:32 Dose: 150 mls/hr Infusion: 03/07/19 03:35 Dose: 0 mls/hr Admin: 03/07/19 02:22 Dose: 150 mls/hr Discontinued Medications Albuterol/Ipratropium (Duoneb) 3 ml INH NOW ONE Stop: 03/07/19 01:36 Last Admin: 03/07/19 01:36 Dose: 3 ml Albuterol/Ipratropium (Duoneb) 3 ml INH NOW ONE Stop: 03/07/19 02:06 Last Admin: 03/07/19 02:25 Dose: 3 ml Labetalol HCl (Trandate) 10 mg IV NOW ONE Stop: 03/07/19 05:08 Last Admin: 03/07/19 05:31 Dose: 10 mg Lorazepam (Ativan) 1 mg IV NOW ONE Stop: 03/07/19 03:45 Last Admin: 03/07/19 04:03 Dose: 1 mg Methylprednisolone (Solu-Medrol 125 Mg Vial) 125 mg IV NOW ONE Stop: 03/07/19 02:06 Last Admin: 03/07/19 02:22 Dose: 125 mg Vital Signs - 8 hr 03/07/19 01:36 03/07/19 01:47 03/07/19 02:25 Temperature 98.5 F Pulse Rate 88 80 85 Respiratory Rate 22 20 20 Blood Pressure 204/94 H Blood Pressure [Left Arm] Pulse Oximetry 88 L 93 92 03/07/19 05:29 03/07/19 06:08 Temperature Pulse Rate 88 Respiratory Rate Blood Pressure Blood Pressure [Left Arm] 195/102 H 186/92 H Pulse Oximetry 95 MDM - SOB/Dyspnea Lab Data Result diagrams: 03/07/19 01:45 03/07/19 01:45 Lab Results 03/07/19 03/07/19 03/07/19 Range/Units 01:45 01:45 01:45 WBC 8.2 (4.5-11.0) X10^3/uL RBC 4.29 L (4.5-5.9) X10^6/uL Hgb 14.6 (13.5-17.5) g/dL Hct 42.3 (41-53) % MCV 98.6 (80-100) fL MCH 34.0 (26-34) PG MCHC 34.5 (30-36) % RDW 14.7 (11.6-14.8) % Plt Count 249 (150-400) X10^3/uL Neut % (Auto) 73.1 (50-75) % Lymph % (Auto) 18.5 L (25-40) % [place] % (Auto) 7.2 (3-14) % Eos % (Auto) 0.9 L (2-4) % Baso % (Auto) 0.3 (0-2) % Neut # (Auto) 6000 (9495-8740) /uL Lymph # (Auto) 1500 (0676-8179) /uL [place] # (Auto) 600 (0-900) /uL Eos # (Auto) 100 (0-450) /uL Baso # (Auto) 0 (0-100) /uL Sodium 138 (137-145) mmol/L Potassium 3.6 (3.4-5.1) mmol/L Chloride 100 (98-107) mmol/L Carbon Dioxide 28 (22-32) mmol/L BUN 7 L (9-20) mg/dL Creatinine 0.90 (0.66-1.25) mg/dL Estimated GFR > 60.0 (>60) mL/min BUN/Creatinine Ratio 7.8 (6-22) Glucose 226 H (80-110) mg/dL Calcium 8.2 L (8.4-10.2) mg/dL Total Bilirubin 0.5 (0.2-1.3) mg/dL AST 56 (17-59) IU/L ALT 48 (21-72) IU/L Alkaline Phosphatase 98 (38-126) U/L Total Creatine Kinase 217 H (55-170) U/L CK-MB (CK-2) 4.15 H (<2.37) ng/mL CK-MB (CK-2) Rel Index 1.9 (1.5-5.0) % Troponin I 0.014 (0.01-0.034) ng/mL B-Natriuretic Peptide 299 H (<100) Total Protein 7.6 (6.3-8.2) g/dL Albumin 4.1 (3.5-5.0) g/dL Globulin 3.5 (1.7-4.1) g/dL Albumin/Globulin Ratio 1.2 (1.0-2.8) Lipase 42 (23-300) U/L Imaging Data CT scan - chest: Radiologist's impression: No central PE. Moderate bilateral pleural effusions Discharge Plan Departure Patient Disposition: Home Clinical Impression: Anxiety, Acute dyspnea Activity Restrictions/Additional Instructions: *You have been diagnosed with [acute dyspnea and anxiety] *What to do: *Take medications as directed *Follow up with your primary care provider in 2-3 days, call for an appointment. Let them know you were seen in the Emergency Department and that we ask that you be seen in follow up *Return to ER if you should have any new, worsening or concerning symptoms Prescriptions: No Action insulin glargine 100 unit/mL (3 mL) insulin pen 75 unit subcut BID Qty: 15 RF: 0 pen needle, diabetic [Comfort EZ Pen [place]] 29 gauge x 1/2 needle .ROUTE .MEDSUPPLY Qty: 100 RF: 0 pen needle, diabetic [Comfort EZ Pen [place]] 31 gauge x 5/16 needle .ROUTE .MEDSUPPLY Qty: 100 RF: 3 levothyroxine [Synthroid] 50 mcg tablet 50 mcg PO QAM Qty: 90 RF: 0 metoprolol tartrate 25 mg tablet 25 mg PO BID Qty: 180 RF: 0 lisinopril 2.5 mg tablet 2.5 mg PO QAM Qty: 90 RF: 0 citalopram [Celexa] 40 mg tablet 40 mg PO DAILY Qty: 90 RF: 0 insulin aspart U-100 100 unit/mL insulin pen See Rx Instructions subcut BIDWM Qty: 15 RF: 0 albuterol sulfate [Proventil HFA] 90 mcg/actuation HFA aerosol inhaler 2 puff INHALATION QID PRN (Reason: shortness of breath) Qty: 18 RF: 5 beclomethasone dipropionate 40 mcg/actuation HFA aerosol breath activated 1 puff Inhalation BID Qty: 10.6 RF: 5 furosemide [Lasix] 20 mg tablet 20 mg PO DAILY Qty: 30 RF: 0 atorvastatin 40 mg tablet 40 mg PO BEDTIME RF: 0 isosorbide mononitrate 60 MG tablet extended release 24 hr 60 mg PO QAM RF: 0 gabapentin 300 mg capsule 300 mg PO BID RF: 0 Referrals: Lakia Londono DO [Primary Care Provider] -
[2019-03-07] MEDS: LABETALOL 20 MG/4 ML SYRINGE 10 MG IV (05:31)
[2019-03-07 06:44] LABS: Fractionated Inspired Oxygen 21; HCO3 ABG 25 mmol/L (22-26); Oxygen Saturation ABG 92 % (95-100); PO2 ABG 65 mmHg (80-100); TCO2 ABG 26 mmol/L (21-31); pH ABG 7.36 (7.35-7.45)
[2019-03-07] MEDS: FUROSEMIDE 40 MG/4 ML VIAL IV (07:34)
[2019-03-07] MEDS: AZITHROMYCIN 500 MG in DEXTROSE 5% IN WATER 250 ML IV (07:52)
--- NOTE | 2019-03-07 08:03 | PC.NURSE ---
void 400cc and again 300 cc of urine prior to admit to room 205
[2019-03-07] MEDS: NITROGLYCERIN 0.4 MG SL TAB SL ×3 (10:53→11:17)
[2019-03-07] MEDS: ACETAMINOPHEN 325 MG TABLET 650 MG PO (10:55)
--- NOTE | 2019-03-07 11:55 | PC.NURSE ---
Addendum entered by Katherine Ramírez R.N. 03/07/19 13:56: Was given 2 mg IV Morphine without much pain relief. This resume writer spoke with Dr Rice and informed her of the same. She did not want to order anything additional for pain at this time. This resume writer let Dr Rice know patient's blood sugars since admit to floor were 360 and 350 and no insulin orders- anticipate Dr Rice will look at med list and put orders in accordingly. Original Note: Admission: Arrived to room 205 at 0810. Transferred from wheelchair to bed with SBA. Hx falls, so fall precautions in place. Lungs with scattered expiratory wheezing. Was placed on 2L O2 by RT. C/O 05/11 mid upper chest pain. Stated they worked it up in the ED and didn't think it was cardiac. This resume writer ordered STAT EKG as no report of chest pain had been passed on from ED RN. EKG and info re: patient C/O chest pain relayed to Dr Rice- received order for nitro X3 and to let her know how it works. Patient denies that Nitro did much to help the pain, and this was relayed to Dr Rice w/ order received for IV Morphine PRN. Patient resting quietly in bed. Calls appropriately. Light in reach.
[2019-03-07] MEDS: MORPHINE 2 MG/ML INJ IV ×3 (12:33→19:20)
--- NOTE | 2019-03-07 12:33 | PT.IPTN ---
Physical Therapy Treatment Note M3 PT-IP Subjective Start: 03/07/19 12:32 Freq: NEEDED Status: Active Protocol: Document 03/07/19 12:32 RS (Rec: 03/07/19 12:33 RS [id number]) Subjective Physical Therapy Visit Type Type Administrative Note Notes Pt still with SOB and angina that's not responding to nitro yet. Will hold PT eval today and attempt tomorrow.
[2019-03-07] MEDS: ALBUTEROL 2.5 MG/3 ML NEB (ADULT) INH ×3 (12:57→20:04)
[2019-03-07] MEDS: INSULIN ASPART 100 UNIT/ML INSULN PEN 30 UNIT SUBCUT (16:56)
[2019-03-07] MEDS: FUROSEMIDE 20 MG/2 ML VIAL IV (18:28)
[2019-03-07] MEDS: NICOTINE 21 MG PATCH TOP (19:16)
--- NOTE | 2019-03-07 20:24 | P.HP_ITS ---
History of Present Illness Date Patient Seen: 03/07/19 Chief complaint: SOB Narrative: Carlos Randall is a 63-year-old male with past medical history significant for coronary artery disease status post coronary stents x2, hypertension, hyperlipidemia, diabetes mellitus type 2, insulin using, poorly controlled, chronic kidney disease stage 2, significant alcoholism without history of withdrawal who presented for progressive worsening shortness of breath. The patient reports that 2 days ago he began getting short of breath and has progressively worsened. He endorses productive cough. He also has chest pain likely due to cough paroxysms. He denies sick contacts. He reports chronic rhinitis and diarrhea related to metformin use and to the extent that it has recently been discontinued. He denies fever, chills, nausea, vomiting, sore throat, or any other respiratory symptoms. He is a current smoker approximately 1.5 ppd. He drinks a significant amount of alcohol per week approximately 2.5 gal of whiskey. He has never experienced withdrawal but readily admits to not going without alcohol for a prolonged time. He denies DTs or alcohol induced seizure. He reports he has been drinking heavily for the last 5 years due to his daughter dying of drug overdose 10 years ago. Chest x-ray and CTA demonstrated moderate bilateral pleural effusions of unclear etiology or acuity. No PE. Recent nuclear medicine perfusion scan demonstrated EF of 64%. He denies history of CHF. Patient received Lasix 40 mg IV x1 in the ED with good urine output. He also received methylprednisolone 125 mg IV with improvement in wheezing. Patient was admitted for COPD exacerbation and possible new onset CHF. PCP is Dr. Londono. Patient History Medical History COPD (chronic obstructive pulmonary disease) (Chronic) Chronic cough (Chronic) Coronary artery disease (Chronic 2006) Depression (Chronic 2008) Diabetes (Chronic 1994) Eczema (Chronic) Foot pain (Chronic) GERD (gastroesophageal reflux disease) (Chronic 2012) Hyperlipidemia (Chronic) Hypertension (Chronic) Hypothyroidism (Chronic) Kidney disease (Chronic 2009) Neuropathy (Chronic) Obstructive sleep apnea (Chronic) Shoulder pain (Chronic) Chicken pox (Resolved 1956) Chickenpox (Resolved 1956) Gout (Resolved) Measles (Resolved 1955) Measles (Resolved 1955) Mumps (Resolved 1958) Mumps (Resolved 1958) Status post myocardial infarction (Resolved) Strain of muscle of right groin region (Resolved 03/30/18) Surgical History Anesthesia (Resolved) History of heart artery stent (Resolved 2006) History of heart artery stent (Resolved 2010) Hx of shoulder surgery (Resolved 2005) Family History Brother Age: 64 Diabetes mellitus Hyperlipidemia Mother Heart disease Hypertension Hyperlipidemia Diabetes mellitus Grandmother Diabetes mellitus Brother No problems noted. Sister Breast cancer Social History household members: spouse, children and other Smoking Status: Current every day smoker Tobacco: How many years used: 45 alcohol intake: current Family & Social History Family History Brother Age: 64 Diabetes mellitus Hyperlipidemia Mother Heart disease Hypertension Hyperlipidemia Diabetes mellitus Grandmother Diabetes mellitus Brother No problems noted. Sister Breast cancer Social History: household members spouse,other,children Prior Living Arrangements House Safety & Behavioral: Feels Safe in Current Yes Environment Been Physically Hurt or No Threatened By a Person Suicidal Ideation Description None Suicide Plan Description No Plan Tobacco & Substance use: Tobacco type cigarettes Smoking Status Current every day smoker Smoking packs per day 1.5 alcohol intake current alcohol intake frequency 2.5 gallons of whiskey a week Substance Use Type marijuana Meds Home Medications Medication Instructions Recorded Confirmed Type pen needle, diabetic 29 gauge x #100 each 03/11/18 03/07/19 Rx 1/2 pen needle, diabetic 31 gauge x #100 each 09/09/18 03/07/19 Rx 03/17 levothyroxine 50 mcg tablet 50 mcg PO QAM #90 tab 11/09/18 03/07/19 Rx metoprolol tartrate 25 mg tablet 25 mg PO BID #180 tab 11/09/18 03/07/19 Rx atorvastatin 40 mg PO BEDTIME 11/23/18 03/07/19 History gabapentin 300 mg PO BID 11/23/18 03/07/19 History isosorbide mononitrate 60 mg PO QAM 11/23/18 03/07/19 History lisinopril 2.5 mg tablet 2.5 mg PO QAM #90 tab 12/02/18 03/07/19 Rx citalopram 40 mg tablet 40 mg PO DAILY #90 tab 01/05/19 03/07/19 Rx furosemide [Lasix] 20 mg PO DAILY #30 tab 01/21/19 03/07/19 Rx insulin aspart U- 100 100 unit/mL See Rx Instructions SUBCUT BIDWM 02/09/19 03/07/19 Rx subcutaneous pen #15 ml albuterol sulfate HFA 90 2 puff INHALATION QID PRN #18 gram 02/14/19 03/07/19 Rx mcg/actuation aerosol inhaler beclomethasone diprop 40 1 puff INHALATION BID #10.6 gram 02/21/19 03/07/19 Rx mcg/actuation HFA breath activated aerosol insulin glargine 80 unit SUBCUT BID 03/07/19 03/07/19 History omeprazole 20 mg PO DAILY 03/07/19 03/07/19 History Allergies Allergy/AdvReac Type Severity Reaction Status Date / Time adhesive Allergy Mild REDNESS/ITC Verified 02/11/19 15:05 HINESS Review of Systems Review of Systems A 10 system comprehensive review of systems was conducted with the patient and found to be negative except as above in the History of Present Illness. Exam Vital Signs (past 8 hours): - 03/07/19 12:00 03/07/19 13:09 03/07/19 15:54 Temperature 98.7 F 98.1 F Pulse Rate 90 98 H Respiratory Rate 20 20 Blood Pressure 144/85 H 162/93 H Pulse Oximetry 94 94 93 03/07/19 16:00 03/07/19 16:52 03/07/19 17:42 Temperature 98.2 F Pulse Rate 89 Respiratory Rate 16 Blood Pressure Pulse Oximetry 95 96 Oxygen Delivery Method Nasal Cannula Oxygen Flow Rate 2 Narrative Exam Narrative: General: Older gentleman lying in bed and in no acute distress, appears mildly uncomfortable, well-developed, well-nourished, appropriately interactive. HEENT: Normocephalic, atraumatic. External ears without defect. Pupils equal, round, and reactive to light. Anicteric sclerae, moist conjunctivae, and no lid lag. Oropharynx free of erythema and cobble stoning with moist mucosa. Neck: Supple with full range of motion. No jugular venous distension. No bruits. No lymphadenopathy or thyromegaly. Cardiovascular: Regular rate and rhythm without murmurs, rubs, or gallops appreciated Pulmonary: Clear to auscultation bilaterally without crackles, wheezes, or rhonchi. Normal respiratory effort with no use of accessory muscles. Abdomen: Soft but protuberant, mild tympany but bowel sounds present, nontend er. Several firm areas of skin on right lower quadrant of abdomen where patient injects insulin repeatedly. Due to body habitus was unable to appreciate hepatosplenomegaly or masses. Extremities: No clubbing, cyanosis, or edema. Abrasion with eschar in place on right lower extremity, does not appear infected. Skin: Normal temperature, turgor, and texture; no rash, ulcers, or subcutaneous nodules appreciated. Stigmata of liver disease including pulmonary erythema and spider angiomata of chest. No caput medusae, asterixis, or jaundice. Neurological: Cranial nerves grossly intact. Psychiatric: Depressed mood and normal affect. Alert and oriented to person, place, and time. Objective Labs Result Diagrams: 03/08/19 07:49 03/08/19 07:49 Labs: Laboratory Results - last 24 hr 03/07/19 03/07/19 03/07/19 01:45 01:45 01:45 WBC 8.2 RBC 4.29 L Hgb 14.6 Hct 42.3 MCV 98.6 MCH 34.0 MCHC 34.5 RDW 14.7 Plt Count 249 Neut % (Auto) 73.1 Lymph % (Auto) 18.5 L [place] % (Auto) 7.2 Eos % (Auto) 0.9 L Baso % (Auto) 0.3 Neut # (Auto) 6000 Lymph # (Auto) 1500 [place] # (Auto) 600 Eos # (Auto) 100 Baso # (Auto) 0 ABG pH ABG pCO2 ABG pO2 ABG HCO3 ABG Total CO2 ABG O2 Saturation ABG Base Excess FiO2 Sodium 138 Potassium 3.6 Chloride 100 Carbon Dioxide 28 BUN 7 L Creatinine 0.90 Estimated GFR > 60.0 BUN/Creatinine Ratio 7.8 Glucose 226 H Calcium 8.2 L Total Bilirubin 0.5 AST 56 ALT 48 Alkaline Phosphatase 98 Total Creatine Kinase 217 H CK-MB (CK-2) 4.15 H CK-MB (CK-2) Rel Index 1.9 Troponin I 0.014 B-Natriuretic Peptide 299 H Total Protein 7.6 Albumin 4.1 Globulin 3.5 Albumin/Globulin Ratio 1.2 Lipase 42 03/07/19 06:30 WBC RBC Hgb Hct MCV MCH MCHC RDW Plt Count Neut % (Auto) Lymph % (Auto) [place] % (Auto) Eos % (Auto) Baso % (Auto) Neut # (Auto) Lymph # (Auto) [place] # (Auto) Eos # (Auto) Baso # (Auto) ABG pH 7.36 ABG pCO2 44.0 ABG pO2 65 L ABG HCO3 25 ABG Total CO2 26 ABG O2 Saturation 92 L ABG Base Excess 0.0 FiO2 21 Sodium Potassium Chloride Carbon Dioxide BUN Creatinine Estimated GFR BUN/Creatinine Ratio Glucose Calcium Total Bilirubin AST ALT Alkaline Phosphatase Total Creatine Kinase CK-MB (CK-2) CK-MB (CK-2) Rel Index Troponin I B-Natriuretic Peptide Total Protein Albumin Globulin Albumin/Globulin Ratio Lipase Assessment & Plan Assessment & Plan narrative: Carlos Randall is a 63-year-old male with past medical history significant for coronary artery disease status post coronary stents x2, hypertension, hyperlipidemia, diabetes mellitus type 2, insulin using, poorly controlled, chronic kidney disease stage 2, significant alcoholism without history of withdrawal who presented for progressive worsening shortness of breath. 1. Acute COPD exacerbation with acute hypoxemic respiratory failure, present on admission. Active. -Patient presented with worsening shortness of breath and hypoxemia with oxygen saturation in the mid 80's on room air. Not on oxygen at home. -Received methylprednisolone 125 mg IV x1. Continue prednisone 40 mg daily x5 days. -Received azithromycin 500 mg in ED and will continue 250 mg daily for anti- inflammatory benefits. -Continue supplemental oxygen as needed. Oxygen saturation goal 88-92%. -Consulted respiratory therapy for evaluation and treatment. Continue duo nebs every 4 hours while awake and albuterol nebs every 2 hours as needed. Continue QVAR 1 puff twice daily. 2. Possible new onset CHF with bilateral pleural effusions, present on admission. Active. -No previous history of CHF. -CTA demonstrated moderate bilateral pleural effusions. Unclear etiology. Possibly secondary to CHF versus liver cirrhosis. -Ordered echocardiogram, pending. -Ordered liver ultrasound to assess for liver cirrhosis and portal hypertension, pending. -Patient has multiple cardiac risk factors including: CAD, hypertension, hyperlipidemia, diabetes mellitus type 2, insulin using and uncontrolled, current smoker, gender, age, obstructive sleep apnea not on CPAP. 3. Chronic stable angina, present on admission. Stable. -Patient is on Imdur 60 mg daily and will continue. Patient received sublingual nitroglycerin without improvement in chest pain. -Ordered morphine 2 mg every 4 hours as needed for chest pain. Pain initially did not improve with 1st dose but reportedly improved after 2nd dose. Discontinued morphine. Ordered tramadol 50 mg 3 times daily as needed for severe pain. 4. Alcohol abuse, chronic, present on admission. Stable. -Patient denies any history of alcohol withdrawal, DTs or alcohol withdrawal seizure. -Patient readily admits to drinking 2.5 gal of whiskey per week. Patient has not gone prolonged amount of time without alcohol. His last drink was yesterday evening. -[facility] protocol initiated. No active withdrawal symptoms currently. -Continue multivitamin, folate, and thiamine supplementation. 5. Coronary artery disease status post stenting x2, chronic, present on admission. Presume stable. -Continue atorvastatin 40 mg daily at bedtime, Imdur 60 mg daily, furosemide 20 mg IV twice daily as above, lisinopril 2.5 mg daily, and metoprolol tartrate 25 mg twice daily. -Patient is not on aspirin possibly due to alcoholism and potential underlying liver disease? 6. Hypertension, chronic, present on admission. Stable. -Continue Imdur 60 mg daily, furosemide 20 mg IV twice daily as above, li sinopril 2.5 mg daily, and metoprolol tartrate 25 mg twice daily. 7. Hyperlipidemia, chronic, present on admission. Stable. -Continue atorvastatin 40 mg daily at bedtime. 8. Diabetes mellitus type 2, insulin using, present on admission. Stable. -Most recent hemoglobin A1c was 10.5% 09/2018. Ordered repeat hemoglobin A1c, pending. -Continue Lantus 80 units twice daily. -Continue [facility] blood glucose checks and high-dose correctional scale insulin. -Ordered heart healthy/carbohydrate consistent diet. -Continue gabapentin 300 mg twice daily. 9. Chronic kidney disease stage 2, present on admission. Stable. -Patient reports chronic stage 2 kidney disease. GFR and creatinine within normal limits. Will calculate creatinine clearance. -Continue to avoid nephrotoxic agents. -Continue to monitor creatinine periodically. 10. Hypothyroidism, chronic, present on admission. Stable. -Continue levothyroxine 50 mcg daily. 11. Depression, chronic, present on admission. Stable. -Continue citalopram 40 mg daily. 12. Tobacco dependence, chronic, present on admission. Stable. -Ordered nicotine patch 21 mg daily as needed for nicotine withdrawal. 13. Essential tremor, chronic, present on admission. Stable. -Not medically treated. Patient drinks alcohol daily which likely is some form of self-medication. 14. Obstructive sleep apnea not on CPAP, chronic, present on admission. Stable. -Encouraged compliance with CPAP and discussed effects of untreated KATI. -Ordered CPAP per RT protocol. Patient is admitted under inpatient status with expected length of stay greater than 2 midnights due to severity of presenting symptoms, risk of adverse event, and complexity of treatment plan. Quality VTE Deep Vein Thrombosis/Pulmonary Embolism Present on Admission: No
[2019-03-07] MEDS: GABAPENTIN 300 MG CAPSULE PO (21:37)
[2019-03-07] MEDS: METOPROLOL IR 25 MG TABLET PO (21:37)
[2019-03-07] MEDS: SODIUM CHLORIDE 0.9% FLUSH 10 ML IV (21:38)
[2019-03-07] MEDS: ATORVASTATIN 20 MG TABLET 40 MG PO (21:38)
[2019-03-07] MEDS: HEPARIN 5,000 UNIT/ML VIAL 5000 UNIT SUBCUT (21:39)
[2019-03-07] MEDS: INSULIN GLARGINE 100 UNIT/ML 3ML PEN 80 UNIT SUBCUT (21:44)
[2019-03-07] MEDS: INSULIN ASPART 100 UNIT/ML INSULN PEN SUBCUT (21:45)
[2019-03-07] MEDS: BECLOMETHASONE 40 MCG INH 10.6 GM 1 PUFF INH (21:53)
[2019-03-07] MEDS: TRAMADOL 50 MG TABLET PO (21:56)
--- NOTE | 2019-03-07 22:53 | PC.NURSE ---
Pt A&OX3. 92-97% 2L. pt c/o chest pain 7/, medicated with morphine, pain went down to 5/10. pt denied nausea, hallucination, or anxiety. he does have a mild head ache & essential tremors. pt urinating ok. call light in reach. bed alarm active.
[2019-03-08] VITALS (12 sets, daily range): BP systolic 140–150; BP diastolic 78–92; PULSE 69–87; RESP 16–20; TEMP 36.1–36.7; O2SAT 92–97
--- NOTE | 2019-03-08 | DI.RAD.S_ITS ---
PROCEDURE: XR CHEST 1V INDICATIONS: Bilateral pleural effusions TECHNIQUE: One view of the chest was acquired. COMPARISON: [facility], CR, XR CHEST 1V, 03/07/2019, 2:50. FINDINGS: Surgical changes and devices: None. Lungs and pleura: There is diffuse interstitial prominence. No pleural effusion or pneumothorax. Mediastinum: Mediastinal contours appear normal. Heart size is normal. Bones and chest wall: No suspicious bony lesions. Overlying soft tissues appear unremarkable. IMPRESSION: There is interstitial prominence suspicious for fluid overload. No pleural effusions are visualized on single frontal view. Dictated by: Shanita Mcwilliams M.D. on 03/08/2019 at 18:22 Approved by: Shanita Mcwilliams M.D. on 03/08/2019 at 18:22
--- NOTE | 2019-03-08 | DI.US.S_ITS ---
PROCEDURE: US ABDOMEN COMPLETE INDICATIONS: ASSESS FOR LIVER CIRRHOSIS, PORTAL HYPERTENSION TECHNIQUE: Real-time scanning was performed of the abdominal and retroperitoneal organs, with image documentation. COMPARISON: Merged With [facility], US, ABDOMEN COMPLETE, 01/04/2016, 17:22. Merged With [facility], US, ABDOMEN COMPLETE, 10/19/2015, 22:47. FINDINGS: Liver: The liver is not well seen related to a diffusely increased echogenicity of the liver, which does result in difficulty evaluating the liver for deep liver lesions. No large liver lesions are identified. The portal and hepatic veins were not well-seen. However, normal directional flow within the structures is evident. Gallbladder: The gallbladder is normal in size. Low level internal echoes are identified within the gallbladder, which may represent sludge. Thickening of the gallbladder wall is present. The patient did not exhibit a positive sonographic Alexandre's sign. No cholecystic fluid is evident. Biliary ducts: Intrahepatic bile ducts are non-dilated. Extrahepatic bile duct caliber measures 5 mm. Normal is 6-7 mm or less in diameter, or 10 mm or less post-cholecystectomy. Pancreas: Obscured largely by bowel gas. Spleen: Not visualized related to lack of a sonographic window. No marked splenomegaly is appreciated. Kidneys: Kidneys are normal in size and echotexture. Right kidney measures 12.4 cm long; left kidney measures 11.4 cm long. No hydronephrosis or shadowing nephrolithiasis. No solid masses. Aorta and iliacs: Obscured by bowel gas IVC: Obscured by bowel gas. Miscellaneous: No free abdominal fluid. IMPRESSION: 1. Diffuse increased echogenicity of the liver is compatible with the patient's history of cirrhosis. Superimposed hepatic steatosis may be present. 2. No definite liver lesions. 3. No ascites. 4. The spleen was not adequately seen. 5. Mild sludge within the gallbladder without sonographic evidence of acute cholecystitis. Wall thickening of the gallbladder is felt to be related to the patient's known hepatic cirrhosis. Dictated by: Abelardo Rodriguez M.D. on 03/08/2019 at 9:37 Approved by: Abelardo Rodriguez M.D. on 03/08/2019 at 9:50
[2019-03-08] MEDS: LORazepam 1 MG TABLET 2 MG PO (00:07)
--- NOTE | 2019-03-08 01:02 | PC.NURSE ---
2300- Pt admit for COPD exacerbation; receiving IV lasix for elevated BNP. Hx of ETOH w/ q2hr CIWA scores taking place. Moving 1PA w/ FWW to bathroom; 2L O2 via NC w/ chronic cough present. AC/HS BG checks taking place (this has been uncont) 0010- CIWA score of 9; 1mg Ativan given per protocol. Pt cont to call for food/drink...redirecting pt regarding BG levels and stated he shouldn't eat any more for the night. Pt stated that he understood. 0545- Pt CO chest discomfort, denies any radiating pain. States it feels like 'aches'; chronic cough still present. PO Tramadol given as ordered; [employer] called regarding pain.
[2019-03-08] MEDS: ALBUTEROL 2.5 MG/3 ML NEB (ADULT) INH ×3 (03:27→12:53)
[2019-03-08] MEDS: LEVOTHYROXINE 50 MCG TABLET PO (05:37)
[2019-03-08] MEDS: ISOSORBIDE MONONITRATE ER 60 MG PO (05:37)
[2019-03-08] MEDS: TRAMADOL 50 MG TABLET PO (05:37)
[2019-03-08] MEDS: PANTOPRAZOLE 20 MG TABLET PO (05:37)
[2019-03-08] MEDS: BECLOMETHASONE 40 MCG INH 10.6 GM 1 PUFF INH ×2 (08:13→17:25)
--- NOTE | 2019-03-08 09:00 | DI.ECHO.S_ITS ---
Echocardiogram Report + + :Name: OLY BARR Study Date: 03/08/2019 Height: 66 in : :Hospital Exam Location: [facility] Weight: 223 lb : : Gender: Male BSA: 2.1 m2 : :: 1955 Age: 63 yrs BP: 180/106 mmHg: :Reason For Study: SOB/GALAN/Orthopnea : :Ordering Physician: Alba : :Hospitalist Performed By: Jessica Page : :Referring: MARY CARMEN MOORE : + + Interpretation Summary The left ventricle is normal in size, wall thickness, and systolic function without any focal wall motion abnormalities. The ejection fraction is estimated to be 60-65%. Diastolic parameters suggest probable normal left ventricular diastolic function and normal filling pressures. The right ventricle is borderline dilated. The right ventricular systolic function is normal. The right ventricular systolic pressure is estimated to be at least 29 mmHg based on an estimated right atrial pressure of 8 mm Hg. The left atrium is moderately dilated. The right atrium is mildly dilated. There is mild mitral regurgitation. There is no other significant valvular heart disease. The ascending aorta is mildly enlarged. No significant changes since 02/04/2016. Procedure: A two-dimensional transthoracic echocardiogram with color flow and Doppler was performed. The study quality was technically adequate. Comparison is made with the echocardiogram of 02/04/2016. The patient was in normal sinus rhythm during the exam. Left Ventricle: The left ventricle is normal in size, wall thickness, and systolic function without any focal wall motion abnormalities. The ejection fraction is estimated to be 60-65%. Diastolic parameters suggest probable normal left ventricular diastolic function and normal filling pressures. Right Ventricle: The right ventricle is borderline dilated. The right ventricular systolic function is normal. Atria: The left atrium is moderately dilated. The right atrium is mildly dilated. There is no Doppler evidence for an interatrial shunt. Mitral Valve: The mitral valve is normal in structure and function. There is mild mitral regurgitation. Aortic Valve: The aortic valve is trileaflet. There is discrete nodular thickening of the non- coronary cusp. No aortic regurgitation is present. Tricuspid Valve: The tricuspid valve is normal in structure and function. There is trace tricuspid regurgitation. The right ventricular systolic pressure is estimated to be at least 29 mmHg based on an estimated right atrial pressure of 8 mm Hg. Pulmonic Valve: The pulmonic valve is not well visualized. There is trace pulmonic regurgitation. There is no other significant valvular heart disease. Great Vessels: The aortic root is normal size. The ascending aorta is mildly enlarged. The pulmonary artery is not well visualized, but is probably normal size. The IVC is dilated (diameter is greater than 2.1 cm) yet it collapses greater than 50% with a sniff. This suggests a right atrial pressure of 8 mm Hg. Pericardium/ Pleura There is no pericardial effusion. There is no pleural effusion. MMode/2D Measurements & Calculations LVIDd: 5.2 cm LVOT diam: 2.0 cm LVIDs: 3.3 cm Ao root diam: 3.5 cm FS: 36.8 % asc Aorta Diam: 3.6 cm EPSS: 0.74 cm IVSd: 0.64 cm LVPWd: 1.1 cm LV brown. diameter/BSA (cm/m^2): 2.5 LV sys. diameter/BSA (cm/m^2): 1.6 LA A2 area: 23.4 cm2 RA long axis: 4.9 cm LA A4 area: 27.9 cm2 RA area: 20.2 cm2 LA length (vol): 6.1 cm RA vol: 71.2 ml LA vol: 91.0 ml RA : 34.0 ml/m2 LA vol index: 43.4 ml/m2 IVC diam: 2.4 cm RVD1 (basal): 5.0 cm TAPSE: 2.4 cm Doppler Measurements & Calculations Ao V2 max: 148.7 cm/sec LVOT Max Augustine: 79.4 cm/sec Ao V2 mean: 110.2 cm/sec LV V1 max P.5 mmHg Ao max P.8 mmHg LV V1 VTI: 16.6 cm Ao mean P.2 mmHg SONDRA(I,D): 1.6 cm2 Ao V2 VTI: 32.4 cm SONDRA(V,D): 1.7 cm2 sev ratio: 0.51 SONDRA indexed to BSA (cm^2/m^2): 0.76 MV E max augustine: 89.4 cm/sec TR max augustine: 227.3 cm/sec MV A max augustine: 69.4 cm/sec TR max P.7 mmHg MV E/A: 1.3 PA V2 max: 64.2 cm/sec Med Peak E' Augustine: 5.0 cm/sec PA V2 mean: 51.3 cm/sec E/E' med: 18.0 PA mean P.1 mmHg Lat Peak E' Augustine: 8.2 cm/sec PA Accel Time: 0.07 sec E/E' lat: 11.0 E/e' average: 14.5 MV P1/2t: 40.9 msec MV P1/2t max augustine: 88.9 cm/sec SV(LVOT): 51.8 ml MVA(P1/2t): 5.4 cm2 _ Reading Physician:02:09 PM
[2019-03-08 09:03] LABS: Add Manual Diff / Slide Review NO; Basophils Absolute Auto 0 /uL (0-100); Basophils Percent Auto 0.2 % (0-2); Eosinophils Absolute Auto 0 /uL (0-450); Eosinophils Percent Auto 0.3 % (2-4); Hematocrit 35.9 % (41-53); Hemoglobin 12.2 g/dL (13.5-17.5); Lymphocytes Absolute Auto 2200 /uL (1100-4500); Lymphocytes Percent Auto 21.8 % (25-40); Mean Corpuscular HGB Conc 33.9 % (30-36); Mean Corpuscular Hemoglobin 33.8 PG (26-34); Mean Corpuscular Volume 99.7 fL (80-100); Monocytes Absolute Auto 700 /uL (0-900); Monocytes Percent Auto 7.1 % (3-14); Neutrophils Absolute Auto 7100 /uL (1500-7000); Neutrophils Percent Auto 70.6 % (50-75); Platelet Count 214 X10^3/uL (150-400)
[2019-03-08 09:11] LABS: Hemoglobin A1C% w Est Avg Glu 8.4 % (4.0-6.0)
[2019-03-08 10:02] LABS: Alanine Aminotransferase 38 IU/L (21-72); Albumin 3.5 g/dL (3.5-5.0); Albumin Globulin Ratio 1.2 (1.0-2.8); Alkaline Phosphatase 66 U/L (38-126); Aspartate Aminotransferase 33 IU/L (17-59); BUN Creatinine Ratio 28.8 (6-22); Bilirubin Total 0.6 mg/dL (0.2-1.3); Blood Urea Nitrogen 23 mg/dL (9-20); Calcium 8.1 mg/dL (8.4-10.2); Carbon Dioxide 30 mmol/L (22-32); Chloride 98 mmol/L (98-107); Estimated Glomerular Filt Rate > 60.0 mL/min (>60); Globulin 2.9 g/dL (1.7-4.1); Glucose 140 mg/dL (80-110); HEMOLYSIS < 15 (0-50); Magnesium 1.5 mg/dL (1.6-2.3); Potassium 3.5 mmol/L (3.4-5.1); Sodium 137 mmol/L (137-145); Total Protein 6.4 g/dL (6.3-8.2)
--- NOTE | 2019-03-08 10:24 | PT.IIE ---
Current Diagnoses Chronic obstructive pulmonary disease with (acute) exacerbation (03/07/19) Surgical History (Last Reviewed 03/07/19 @ 20:50 by Faith Rice DO) Anesthesia (Resolved) History of heart artery stent (Resolved 2006) History of heart artery stent (Resolved 2010) Hx of shoulder surgery (Resolved 2005) Medical History (Last Reviewed 03/07/19 @ 20:50 by Faith Riec DO) COPD (chronic obstructive pulmonary disease) (Chronic) Chronic cough (Chronic) Coronary artery disease (Chronic 2006) Depression (Chronic 2008) Diabetes (Chronic 1994) Eczema (Chronic) Foot pain (Chronic) GERD (gastroesophageal reflux disease) (Chronic 2012) Hyperlipidemia (Chronic) Hypertension (Chronic) Hypothyroidism (Chronic) Kidney disease (Chronic 2009) Neuropathy (Chronic) Obstructive sleep apnea (Chronic) Shoulder pain (Chronic) Chicken pox (Resolved 1956) Chickenpox (Resolved 1956) Gout (Resolved) Measles (Resolved 1955) Measles (Resolved 1955) Mumps (Resolved 1958) Mumps (Resolved 1958) Status post myocardial infarction (Resolved) Strain of muscle of right groin region (Resolved 03/30/18) Physical Therapy Inpatient Evaluation/Re-Eval M1 PT/OT-IP Prior Functional Status Start: 03/07/19 12:32 Freq: NEEDED Status: Active Protocol: Document 03/08/19 10:24 AB (Rec: 03/08/19 13:18 AB [id number]) Medical Review Prior Functional Status Medical History Reviewed Yes Communication able to make needs known Mobility and Gait pt stated that he is independent with all mobilities and ambulation without AD Social History Household Members spouse other children Living Arrangements House Number of Floors (Floors) One Floor Number of Stairs To Enter/Railing? 2 steps to enter with R rail ascending Home Environment Standard Height Toilet Tub/Shower Home Equipment Four Wheel Walker Additional Social History Comment pt stated that he sleeps on a recliner M2 PT-IP Current Condition Start: 03/07/19 12:32 Freq: NEEDED Status: Active Protocol: Document 03/08/19 10:24 AB (Rec: 03/08/19 13:18 AB [id number]) Physical Therapy Current Condition Current Condition Evaluation Date 03/08/19 Treatment Diagnosis COPD exacerbation; CHF; difficulty in walking Onset Date 03/07/19 Precautions Other Precautions O2 sat M3 PT-IP Subjective Start: 05/06/19 12:32 Freq: NEEDED Status: Active Protocol: Document 03/08/19 10:24 AB (Rec: 03/08/19 13:18 AB [id number]) Subjective Physical Therapy Visit Type Type Initial Evaluation Visit Start Time 10:24 Visit Stop Time 10:44 Total Visit Minutes 20 Number of MOTOR AND CONTROLS TESTER Visits 0 Physical Therapy Visit Comments Patient Comments pt agreeable to do PT M4 PT-IP Mobility and Gait Start: 03/07/19 12:32 Freq: NEEDED Status: Active Protocol: Document 03/08/19 10:24 AB (Rec: 03/08/19 13:18 AB [id number]) PT-Bed Mobility Assessment Supine to Sit Supine to Sit Head of Bed Elevated Bedrails Sit to Supine Sit to Supine Maximum Assistance Head of Bed Elevated Bedrails PT-Transfer Assessment Sit to and From Stand Sit to and from Stand Moderate Assistance Equipment Transfer Assistive Device Bed Rail Front Wheeled Walker Orthotic/Prosthetic Devices or Brace: No Gait Assessment Gait Gait Assistance Required: Moderate Assistance Distance (Feet) 10 Able to Maintain Weight Bearing Status Yes During Gait Assistive Devices Assistive Device Gait Belt Front Wheeled Walker Orthotic/Prosthetic Devices or Brace: No Gait Deviations General Gait Pattern Antalgic Decreased Stride Length Decreased Feet Clearance Factors Limiting Gait Function Factors Limiting Gait Function Decreased Activity Tolerance Decreased Strength Poor Balance Poor Safety Awareness Respiratory Distress Comments Gait Comments O2 sat with O2 on at start of PT session: 96%; decreased to ~ 75% with ambulation but increased back up to 90% upon seated rest. PT-Balance Assessment Sitting Balance and Reactions Static Sitting Balance Ability Good Dynamic Sitting Balance Ability Good Standing Balance and Reactions Static Standing Balance Ability Fair Dynamic Standing Balance Ability Poor Device Used FWW M5 PT-IP Objective Assessments Start: 03/07/19 12:32 Freq: NEEDED Status: Active Protocol: Document 03/08/19 10:24 AB (Rec: 03/08/19 13:18 AB [id number]) Orientation Orientation/Cognition Level of Alertness Alert Orientation Name Age Place Situation Gross Range of Motion Upper Extremity ROM Assessment Within Functional Limits Strength Lower Extremity Strength Assessment Bilaterally Impaired Comments Strength Comments RLE: 3+/5 LLE 4-/5 Coordination Assessment Gross Coordination Gross Coordination WNL Sensation Assessment Sensation Gross Sensation WNL Muscle Tone Muscle Tone WNL Yes M6 PT-IP Treatment Start: 03/07/19 12:32 Freq: NEEDED Status: Active Protocol: Document 03/08/19 10:24 AB (Rec: 03/08/19 13:18 AB [id number]) Physical Therapy Treatment Education Education Provided Safety M7 PT-IP Assessment and Plan Start: 03/07/19 12:32 Freq: NEEDED Status: Active Protocol: Document 03/08/19 10:24 AB (Rec: 03/08/19 13:18 AB [id number]) PT Summary Assessment and Plan Potential Rehabilitation Potential Good Summary Impairments Pain ROM Strength Balance Coordination Sensation Tone Cognition Bed Mobility Transfers Gait Activity Tolerance Assessment Summary pt requiring mod A with transfers and ambulation and presents with decrease activity tolerance with decrease in O2sat during ambulation. d/c plan depending on progress but at this time may require SNF rehab. Goals Transfer Goal Standby Assistance Front Wheeled Walker Four Wheeled Walker Gait Goal Standby Assistance Front Wheel Walker Four Wheel Walker Gait Distance 150 Other Goals up/down 2 steps with R rail ascending SBA Days to Meet Goals 10 Frequency of Treatment Frequency Of Treatment Twice a Day Treatment Plan Physical Therapy Treatment Plan Bed Mobility Training Transfer Training Gait Training Therapeutic Exercise Balance Retraining Post Op Education Discharge Planning Hot or Cold Pack Neuromuscular Re-ed Coordination Retraining Manual Therapy Other Recommendations and Next Treatment ambulation Focus Recommendations To Nursing Amount of Assist Needed 1 Person Assist Discharge Recommendations PT Discharge Recommendations Home with Assistance Home Health SNF Rehab Other Discharge Recommendations depending on progress: SNF vs home with assist/homehealth PT
[2019-03-08 10:27] LABS: Procalcitonin < 0.05 ng/mL (<0.5)
[2019-03-08] MEDS: INSULIN GLARGINE 100 UNIT/ML 3ML PEN 80 UNIT SUBCUT ×2 (12:16→22:38)
[2019-03-08] MEDS: predniSONE 20 MG TABLET 40 MG PO (12:16)
[2019-03-08] MEDS: METOPROLOL IR 25 MG TABLET PO ×2 (12:18→22:37)
[2019-03-08] MEDS: LISINOPRIL 5 MG TABLET 2.5 MG PO (12:18)
[2019-03-08] MEDS: MULTIVITAMIN 1 TABLET 1 TAB PO (12:18)
[2019-03-08] MEDS: GABAPENTIN 300 MG CAPSULE PO ×2 (12:18→22:30)
[2019-03-08] MEDS: THIAMINE 100 MG TABLET PO (12:18)
[2019-03-08] MEDS: FUROSEMIDE 20 MG/2 ML VIAL IV ×2 (12:18→18:00)
[2019-03-08] MEDS: CITALOPRAM 20 MG TABLET 40 MG PO (12:18)
[2019-03-08] MEDS: HEPARIN 5,000 UNIT/ML VIAL 5000 UNIT SUBCUT ×2 (12:18→22:30)
[2019-03-08] MEDS: SODIUM CHLORIDE 0.9% FLUSH 10 ML IV ×2 (12:19→22:37)
[2019-03-08] MEDS: NITROGLYCERIN 0.4 MG SL TAB SL (12:25)
[2019-03-08] MEDS: FOLIC ACID 1 MG TABLET PO (14:39)
[2019-03-08] MEDS: NICOTINE 21 MG PATCH TOP (14:39)
--- NOTE | 2019-03-08 15:51 | PT.IPTN ---
Current Diagnoses Chronic obstructive pulmonary disease with (acute) exacerbation (03/07/19) Physical Therapy Treatment Note M2 PT-IP Current Condition Start: 03/07/19 12:32 Freq: NEEDED Status: Active Protocol: Document 03/08/19 10:24 AB (Rec: 03/08/19 13:18 AB [id number]) Physical Therapy Current Condition Current Condition Evaluation Date 03/08/19 Treatment Diagnosis COPD exacerbation; CHF; difficulty in walking Onset Date 03/07/19 Precautions Other Precautions O2 sat M3 PT-IP Subjective Start: 03/07/19 12:32 Freq: NEEDED Status: Active Protocol: Document 03/08/19 14:00 CLB (Rec: 03/08/19 15:51 CLB [id number]) Subjective Physical Therapy Visit Type Type Treatment Note Visit Start Time 14:00 Visit Stop Time 14:35 Total Visit Minutes 35 Notes Co-treated with OT Becca Number of SCOW CAPTAIN Visits 1 Physical Therapy Visit Comments Patient Comments pt agreeable to do PT M4 PT-IP Mobility and Gait Start: 03/07/19 12:32 Freq: NEEDED Status: Active Protocol: Document 03/08/19 14:00 CLB (Rec: 03/08/19 15:51 CLB [id number]) PT-Bed Mobility Assessment Supine to Sit Supine to Sit Contact Guard Assistance Head of Bed Elevated Bedrails Sit to Supine Sit to Supine Standby Assistance Head of Bed Elevated Scooting Scooting to Edge of Bed Standby Assistance Scooting Up and Down in Bed Standby Assistance PT-Transfer Assessment Sit to and From Stand Sit to and from Stand Contact Guard Assistance 1 Person Assistance Use of Upper Extremities Equipment Transfer Assistive Device Gait Belt Front Wheeled Walker Orthotic/Prosthetic Devices or Brace: No Transfers Transfer Destination Bed Chair Transfer Technique Stand Step Pivot Transfer Ability Level of Assist Contact Guard Assistance 1 Person Assistance Use of Upper Extremities Comments Mobility Comments Pt transferred to/from bed and sat on window bed able to perform sit/stand from window bench CGA with cues for hand placement. Pt stood at sink brushed teeth and washed face. Pt required SBA and had one LOB self corrected with initial step to pivot away from sink. O2 on RA ranged between 87-92% while washing up at sink. O2 decreased to 86 % when pt performed sit-supine but returned to 90% after a few breathes. Gait Assessment Gait Gait Assistance Required: Contact Guard Assist 1 Person Assist Distance (Feet) 20 Able to Maintain Weight Bearing Status Yes During Gait Assistive Devices Assistive Device Gait Belt Front Wheeled Walker Orthotic/Prosthetic Devices or Brace: No Gait Deviations General Gait Pattern Antalgic Decreased Stride Length Decreased Feet Clearance Factors Limiting Gait Function Factors Limiting Gait Function Decreased Activity Tolerance Decreased Strength Poor Balance Poor Safety Awareness Respiratory Distress Comments Gait Comments O2 sats on RA ranged from 90- 92% during ambulation. Pt c/o legs feeling weak and required a seated rest break after standing at sink and ambulating ~10ft to window bench. M5 PT-IP Objective Assessments Start: 03/07/19 12:32 Freq: NEEDED Status: Active Protocol: Document 03/08/19 10:24 AB (Rec: 03/08/19 13:18 AB [id number]) Orientation Orientation/Cognition Level of Alertness Alert Orientation Name Age Place Situation Gross Range of Motion Upper Extremity ROM Assessment Within Functional Limits Strength Lower Extremity Strength Assessment Bilaterally Impaired Comments Strength Comments RLE: 3+/5 LLE 4-/5 Coordination Assessment Gross Coordination Gross Coordination WNL Sensation Assessment Sensation Gross Sensation WNL Muscle Tone Muscle Tone WNL Yes M6 PT-IP Treatment Start: 03/07/19 12:32 Freq: NEEDED Status: Active Protocol: Document 03/08/19 14:45 CLB (Rec: 03/08/19 15:51 CLB [id number]) Physical Therapy Treatment Exercises Exercises Seated Knee Flexion/Extension M7 PT-IP Assessment and Plan Start: 03/07/19 12:32 Freq: NEEDED Status: Active Protocol: Document 03/08/19 14:00 CLB (Rec: 03/08/19 15:51 CLB [id number]) PT Summary Assessment and Plan Summary Assessment Summary Pt improved with all mobility and transfers with O2 on RA ranging between 87-92% with exception of decrease to 86% with sit-supine. Goals Transfer Goal Standby Assistance Front Wheeled Walker Four Wheeled Walker Gait Goal Standby Assistance Front Wheel Walker Four Wheel Walker Gait Distance 150 Other Goals up/down 2 steps with R rail ascending SBA Days to Meet Goals 10 Frequency of Treatment Frequency Of Treatment Twice a Day Treatment Plan Other Recommendations and Next Treatment ambulation with 4WW Focus Recommendations To Nursing Amount of Assist Needed 1 Person Assist Discharge Recommendations PT Discharge Recommendations Home with Assistance Home Health SNF Rehab Other Discharge Recommendations depending on progress: SNF vs home with assist/homehealth PT
--- NOTE | 2019-03-08 15:54 | CM.DANOTE ---
DCP/PATENT LITIGATION ASSOCIATE Assessment: Reviewed chart. Patient is a 63yr old male admitted to [facility] with SOB. PCP is Dr. Londono. Bautista payor is 1)[facility] ([facility]) 2)Medicare. Received referral from Dr. Rice to see patient for alcoholism. PATENT LITIGATION ASSOCIATE attempted to see patient earlier in the day but he was sound asleep. Re-attempted visit at approximately 3:30pm. Patient groggy at time of visit but reports that he was just up to sink with STITCHING DEPARTMENT SUPERVISOR to clean myself up. Patient resting comfortably in bed (laying flat) with eyes closed during interview. Seizure pads in place and current CIWA score is 0. Patient reports that he resides with family including spouse/Hannah in [place]. Patient reports that he is primarily I with all ADL's. Patient does not offer information but does answer questions appropriately. Patient confirms that he drinks approximately 1 pint of whiskey per day. Patient indicates that he has been drinking that amount since about 2007. Patient reports the loss of a daughter that year which sent him into a spiral. Patient reports that his spouse does not drink and does not like it when he drinks. Patient denies recent attempts at sobriety. Patient reports one inpatient stay approximately 35yrs ago? Also reports that he has tried outpatient therapy and it was not effective. Patient currently asked if he would like assistance with alcohol recovery/treatment? Patient says yes difficult for PATENT LITIGATION ASSOCIATE to assess today due to patient's grogginess. Patient reports last drink 2 days ago? At this time patient reports that outpatient treatment would not be useful, he would prefer inpatient. Notified patient that PATENT LITIGATION ASSOCIATE will continue to check in with him on alcohol treatment and d/c planning. Will most likely need to call [facility] to determine if patient has any inpatient options. May only have intensive outpatient option after detox completed. At this time unclear on where patient is on detox spectrum. Only CIWA recorded today was O. P: PATENT LITIGATION ASSOCIATE to follow closely and check on patient on Thursday03-09-19 to see how/where he is in detox process. Also might be helpful to include spouse and check with [facility] on [facility] for both inpatient and outpatient alcohol services. Patient also being treated medically with multiple health issues (see h&p). Therefore, unclear when patient will be medically stable. Will alcohol detox still be needed? LYN Bee Discharge Planning/Care Management CM Discharge Assessment Start: 03/08/19 15:51 Freq: Status: Active Protocol: Document 03/08/19 15:51 KJClaudia (Rec: 03/08/19 15:53 KJS [id number]) Discharge Planning Assessment Assigned Printed Circuit Board Assembler LYN Bee Contact Information Hannah Randall (spouse) Advance Directives? No Advance Directives on File No History Provided By Patient Medical Record Prior Living Arrangements House Household Members spouse other children Type of transporation used prior to Drives own vehicle admit Independent with ADL's Yes Is patient alert and oriented? Yes Caregiver for Another No Comment Patient reports that he has access to walker if needed. Patient/Family Preference Drug/Alcohol Rehab Comment Patient requesting assistance with inpatient alcohol rehabilitation. Comment Pending outcome of hospitalization. Discharge Plan Drug Rehabilitation Transportation Arrangement Family can provide transport. Whiteboard Updated in Patient Room with Yes name and ext. # of Printed Circuit Board Assembler Review Status In Process Next Review Type Continued Stay Review
[2019-03-08 16:09] LABS: Adenovirus Not Detected (Not Detect); Coronavirus 229E Not Detected (Not Detect); Coronavirus HKU1 Not Detected (Not Detect); Coronavirus NL 63 Not Detected (Not Detect); Coronavirus OC43 Not Detected (Not Detect); Human Metapneumovirus Not Detected (Not Detect); Human Rhinovirus/Enterovirus Not Detected (Not Detect); Influenza A Not Detected (Not Detect); Influenza B Not Detected (Not Detect); Parainfluenza Virus 1 Not Detected (Not Detect); Parainfluenza Virus 2 Not Detected (Not Detect); Parainfluenza Virus 3 Not Detected (Not Detect)
[2019-03-08 16:10] LABS: Bordetella pertussis Not Detected (Not Detect); Chlamydophila pneumoniae Not Detected (Not Detect); Mycoplasma pneumoniae Not Detected (Not Detect); Parainfluenza Virus 4 Not Detected (Not Detect); Respiratory Syncytial Virus Not Detected (Not Detect)
--- NOTE | 2019-03-08 16:41 | PM.PN.1 ---
Subjective Date Patient Seen: 03/08/19 Interval history: Carlos Randall is a 63-year-old male with past medical history significant for coronary artery disease status post coronary stents x2, hypertension, hyperlipidemia, diabetes mellitus type 2, insulin using, poorly controlled, chronic kidney disease stage 2, significant alcoholism without history of withdrawal who presented for progressive worsening shortness of breath. The patient is resting in bed and appears mildly uncomfortable. He continues to report central chest discomfort especially with coughing. His chest pain is reproducible on examination and likely costochondritis. His EKG was normal and showed no acute ischemic changes and troponins have been negative thus far. He continues to have nonproductive dry cough with paroxysms that are bronchospastic in nature. He is significantly more wheezy today and started IV steroids. He endorses sore throat today. He denies headache, abdominal pain, nausea, vomiting, fever, chills, dysuria, diarrhea or constipation. He is voiding and eliminating without difficulty. He is up minimally due to generalized weakness with assistance and PT/OT. He reports he falls a lot at home as he does not use an assist device for ambulation. Exam Vital Signs (past 8 hours): - 03/08/19 10:00 03/08/19 11:50 03/08/19 13:57 Temperature 97.9 F Pulse Rate 74 87 Respiratory Rate 20 Blood Pressure 150/85 H Pulse Oximetry 94 95 95 03/08/19 15:40 03/08/19 16:00 Temperature 97.0 F L Pulse Rate 77 Respiratory Rate 20 Blood Pressure 145/80 H Pulse Oximetry 94 94 Oxygen Delivery Method Room Air,Nasal Cannula Oxygen Flow Rate 0 Narrative Exam Narrative: General: Older gentleman lying in bed and in no acute distress, appears mildly uncomfortable, well-developed, well-nourished, appropriately interactive. HEENT: Normocephalic, atraumatic. External ears without defect. Pupils equal, round, and reactive to light. Anicteric sclerae, moist conjunctivae, and no lid lag. Oropharynx free of erythema and cobble stoning with moist mucosa. Neck: Supple with full range of motion. No jugular venous distension. No bruits. No lymphadenopathy or thyromegaly. Cardiovascular: Regular rate and rhythm without murmurs, rubs, or gallops appreciated Pulmonary: Clear to auscultation bilaterally with scattered wheezes. Decreased air movement and chest tightness today. Normal respiratory effort with no use of accessory muscles. Abdomen: Soft but protuberant, mild tympany but bowel sounds present, nontender. Several firm areas of skin on right lower quadrant of abdomen where patient injects insulin repeatedly. Due to body habitus was unable to appreciate hepatosplenomegaly or masses. Extremities: No clubbing, cyanosis, or edema. Abrasion with eschar in place on right lower extremity, does not appear infected. Mild stasis dermatitis. Skin: Normal temperature, turgor, and texture; no rash, ulcers, or subcutaneous nodules appreciated. Stigmata of liver disease including pulmonary erythema and spider angiomata of chest. No caput medusae, asterixis, or jaundice. Neurological: Cranial nerves grossly intact. Psychiatric: Depressed mood and normal affect. Alert and oriented to person, place, and time. Objective Labs Result Diagrams: 03/08/19 07:49 03/08/19 07:49 Labs: Laboratory Results - last 24 hr 03/08/19 03/08/19 03/08/19 07:49 07:49 07:49 WBC 10.0 RBC 3.60 L Hgb 12.2 L Hct 35.9 L MCV 99.7 MCH 33.8 MCHC 33.9 RDW 15.0 H Plt Count 214 Neut % (Auto) 70.6 Lymph % (Auto) 21.8 L Josephine % (Auto) 7.1 Eos % (Auto) 0.3 L Baso % (Auto) 0.2 Neut # (Auto) 7100 H Lymph # (Auto) 2200 Josephine # (Auto) 700 Eos # (Auto) 0 Baso # (Auto) 0 Sodium 137 Potassium 3.5 Chloride 98 Carbon Dioxide 30 BUN 23 H Creatinine 0.80 Estimated GFR > 60.0 BUN/Creatinine Ratio 28.8 H Glucose 140 H Hemoglobin A1c Calcium 8.1 L Magnesium 1.5 L Total Bilirubin 0.6 AST 33 ALT 38 Alkaline Phosphatase 66 Total Protein 6.4 Albumin 3.5 Globulin 2.9 Albumin/Globulin Ratio 1.2 Procalcitonin < 0.05 Chlamy pneumoniae PCR Adenovirus (PCR) B.parapertussis DNA PCR Coronavirus OC43 (PCR) Coronavirus HKU1 (PCR) Coronavirus 229E (PCR) Coronavirus NL63 (PCR) Human Metapneumovir PCR Influenza Type A (PCR) Influenza Type B (PCR) M. pneumoniae (PCR) Parainfluenza 1 (PCR) Parainfluenza 2 (PCR) Parainfluenza 3 (PCR) Parainfluenza 4 (PCR) RSV (PCR) Entero/Rhino (PCR) 03/08/19 03/08/19 07:49 14:30 WBC RBC Hgb Hct MCV MCH MCHC RDW Plt Count Neut % (Auto) Lymph % (Auto) Josephine % (Auto) Eos % (Auto) Baso % (Auto) Neut # (Auto) Lymph # (Auto) Josephine # (Auto) Eos # (Auto) Baso # (Auto) Sodium Potassium Chloride Carbon Dioxide BUN Creatinine Estimated GFR BUN/Creatinine Ratio Glucose Hemoglobin A1c 8.4 H Calcium Magnesium Total Bilirubin AST ALT Alkaline Phosphatase Total Protein Albumin Globulin Albumin/Globulin Ratio Procalcitonin Chlamy pneumoniae PCR Not detected Adenovirus (PCR) Not detected B.parapertussis DNA PCR Not detected Coronavirus OC43 (PCR) Not detected Coronavirus HKU1 (PCR) Not detected Coronavirus 229E (PCR) Not detected Coronavirus NL63 (PCR) Not detected Human Metapneumovir PCR Not detected Influenza Type A (PCR) Not detected Influenza Type B (PCR) Not detected M. pneumoniae (PCR) Not detected Parainfluenza 1 (PCR) Not detected Parainfluenza 2 (PCR) Not detected Parainfluenza 3 (PCR) Not detected Parainfluenza 4 (PCR) Not detected RSV (PCR) Not detected Entero/Rhino (PCR) Not detected Assessment & Plan Assessment & Plan narrative: Carlos Randall is a 63-year-old male with past medical history significant for coronary artery disease status post coronary stents x2, hypertension, hyperlipidemia, diabetes mellitus type 2, insulin using, poorly controlled, chronic kidney disease stage 2, significant alcoholism without history of withdrawal who presented for progressive worsening shortness of breath. 1. Acute COPD exacerbation with acute hypoxemic respiratory failure, present on admission. Active. -Patient presented with worsening shortness of breath and hypoxemia with oxygen saturation in the mid 80's on room air. Not on oxygen at home. -Received methylprednisolone 125 mg IV x1. Discontinue prednisone 40 mg daily and started methylprednisolone 60 mg every 12 hours. -Received azithromycin 500 mg in ED and will continue 250 mg daily for anti-inflammatory benefits. -Ordered respiratory viral PCR which was negative. -Continue supplemental oxygen as needed. Oxygen saturation goal 88-92%. -Consulted respiratory therapy for evaluation and treatment. Continue duo nebs every 4 hours while awake and albuterol nebs every 2 hours as needed. Continue QVAR 1 puff twice daily. 2. Possible new onset CHF with bilateral pleural effusions, present on admission. Active. -No previous history of CHF. -CTA demonstrated moderate bilateral pleural effusions. Unclear etiology. Possibly secondary to CHF versus liver cirrhosis. -Ordered echocardiogram, pending. -Ordered liver ultrasound to assess for liver cirrhosis and portal hypertension -Patient has multiple cardiac risk factors including: CAD, hypertension, hyperlipidemia, diabetes mellitus type 2, insulin using and uncontrolled, current smoker, gender, age, obstructive sleep apnea not on CPAP. 3. Acute costochondritis with chronic stable angina, present on admission. Active. -Chest pain reproducible with palpation. Patient has dry bronchospastic cough paroxysms causing chest wall pain. -Patient is on Imdur 60 mg daily and will continue. Patient received sublingual nitroglycerin without improvement in chest pain and mild improvement with morphine. -Ordered tramadol 50 mg 3 times daily as needed for severe pain. 4. Alcohol abuse, chronic, present on admission. Stable. -Patient denies any history of alcohol withdrawal, DTs or alcohol withdrawal seizure. -Patient readily admits to drinking 2.5 gal of whiskey per week. Patient has not gone prolonged amount of time without alcohol. His last drink was yesterday evening. -CIWA protocol initiated. No active withdrawal symptoms currently. Most recent CIWA score 4. -Continue multivitamin, folate, and thiamine supplementation. Replete electrolytes (K and Mg) as needed. 5. Coronary artery disease status post stenting x2, chronic, present on admission. Presume stable. -Continue atorvastatin 40 mg daily at bedtime, Imdur 60 mg daily, furosemide 20 mg IV twice daily as above, lisinopril 2.5 mg daily, and metoprolol tartrate 25 mg twice daily. -Patient is not on aspirin possibly due to alcoholism and potential underlying liver disease? 6. Hypertension, chronic, present on admission. Stable. -Continue Imdur 60 mg daily, furosemide 20 mg IV twice daily as above, lisinopril 2.5 mg daily, and metoprolol tartrate 25 mg twice daily. 7. Hyperlipidemia, chronic, present on admission. Stable. -Continue atorvastatin 40 mg daily at bedtime. 8. Diabetes mellitus type 2, insulin using, present on admission. Stable. -Most recent hemoglobin A1c was 10.5% 09/2018. Ordered repeat hemoglobin A1c, pending. -Continue Lantus 80 units twice daily. -Continue ACHS blood glucose checks and high-dose correctional scale insulin. -Ordered heart healthy/carbohydrate consistent diet. -Continue gabapentin 300 mg twice daily. 9. Chronic kidney disease stage 2, present on admission. Stable. -Patient reports chronic stage 2 kidney disease. GFR and creatinine within normal limits. Will calculate creatinine clearance. -Continue to avoid nephrotoxic agents. -Continue to monitor creatinine periodically. 10. Hypothyroidism, chronic, present on admission. Stable. -Continue levothyroxine 50 mcg daily. 11. Depression, chronic, present on admission. Stable. -Continue citalopram 40 mg daily. 12. Tobacco dependence, chronic, present on admission. Stable. -Ordered nicotine patch 21 mg daily as needed for nicotine withdrawal. 13. Essential tremor, chronic, present on admission. Stable. -Not medically treated. Patient drinks alcohol daily which likely is some form of self-medication. 14. Obstructive sleep apnea not on CPAP, chronic, present on admission. Stable. -Encouraged compliance with CPAP and discussed effects of untreated KATI. -Ordered CPAP per RT protocol. Disposition: Likely to discharge home with home health versus prison facility in several days once workup completed and he is improving with treatment of COPD exacerbation and possible CHF. Quality VTE Deep Vein Thrombosis/Pulmonary Embolism Present on Admission: No
--- NOTE | 2019-03-08 16:43 | OT.IP.EVAL ---
Current Diagnoses Chronic obstructive pulmonary disease with (acute) exacerbation (03/07/19) Past Medical History (Last Reviewed 03/07/19 @ 20:50 by Faith Rice DO) COPD (chronic obstructive pulmonary disease) (Chronic) Chronic cough (Chronic) Coronary artery disease (Chronic 2006) Depression (Chronic 2008) Diabetes (Chronic 1994) Eczema (Chronic) Foot pain (Chronic) GERD (gastroesophageal reflux disease) (Chronic 2012) Hyperlipidemia (Chronic) Hypertension (Chronic) Hypothyroidism (Chronic) Kidney disease (Chronic 2009) Neuropathy (Chronic) Obstructive sleep apnea (Chronic) Shoulder pain (Chronic) Chicken pox (Resolved 1956) Chickenpox (Resolved 1956) Gout (Resolved) Measles (Resolved 1955) Measles (Resolved 1955) Mumps (Resolved 1958) Mumps (Resolved 1958) Status post myocardial infarction (Resolved) Strain of muscle of right groin region (Resolved 03/30/18) Surgical History (Last Reviewed 03/07/19 @ 20:50 by Faith Rice DO) Anesthesia (Resolved) History of heart artery stent (Resolved 2006) History of heart artery stent (Resolved 2010) Hx of shoulder surgery (Resolved 2005) Occupational Therapy Inpatient Evaluation/Re-Eval M1 PT/OT-IP Prior Functional Status Start: 03/08/19 16:16 Freq: NEEDED Status: Active Protocol: Document 03/08/19 14:45 [facility] (Rec: 03/08/19 16:41 [facility] [id number]) Medical Review Prior Functional Status Medical History Reviewed Yes Communication able to make needs known Mobility and Gait pt stated that he is independent with all mobilities and ambulation without AD Activities of Daily Living and IADL's Pt states would need assist to [place] socks and increased time to get his shoes on. Social History Household Members spouse other children Living Arrangements House Number of Floors (Floors) One Floor Number of Stairs To Enter/Railing? 2 steps to enter with R rail ascending Home Environment Standard Height Toilet Tub/Shower Home Equipment Four Wheel Walker Additional Social History Comment Pt stated that he sleeps on a recliner. M2 OT-IP Current Condition Start: 03/08/19 16:16 Freq: Status: Active Protocol: Document 03/08/19 14:45 [facility] (Rec: 03/08/19 16:41 [facility] [id number]) Occupational Therapy Current Condition Current Condition Evaluation Date 03/08/19 Treatment Diagnosis COPD exacerbation, CHF Diagnosis Onset Date 03/07/19 M3 OT- IP Subjective and Pain Start: 03/08/19 16:16 Freq: Status: Active Protocol: Document 03/08/19 14:45 [facility] (Rec: 03/08/19 16:41 [facility] [id number]) OT- Subjective Occupational Therapy Visit Type Type Initial Evaluation Visit Start Time 14:45 Visit Stop Time 15:20 Total Visit Minutes 35 Occupational Therapy Visit Comments Patient Comments After encouragement from PT and OT , pt agreeable to get up. OT Pain Assessment Pain When Pain Assessed At Rest Pain Present Pain Present Denied Pain M4 OT- IP ADL's Start: 03/08/19 16:16 Freq: Status: Active Protocol: Document 03/08/19 14:45 [facility] (Rec: 03/08/19 16:41 [facility] [id number]) OT ADL-Grooming General Evaluation Grooming Ability Standby Assistance Areas Needing Assistance Retrieving/Set-up of Grooming Items Comments OT Grooming Comments Pt leans to the counter for balance while doing all grooming needs. OT ADL-Oral Care General Eval Oral Care Ability Independent OT ADL-Dressing General Eval Lower Body Dressing Ability Maximum Assistance Comments OT Dressing Comments Pt dependent for socks. Educated of possible use of LB AED. OT ADL-Bathing Comments OT Bathing Comments Pt states very fearful of falling and does not like to shower at home. Pt has a tub/ shower and states fell while trying to step out in the past . Suggested grab bar and tub bench to help increase safety to get into and out of the tub . To attempt shower tomorrow if appropriate. M5 OT- IP IADL's Start: 03/08/19 16:16 Freq: Status: Active Protocol: Document 03/08/19 14:45 [facility] (Rec: 03/08/19 16:41 [facility] [id number]) OT-Instrumental Activities of Daily Living Medication Management Medication Management Comments Pt states does his own medications. Money Management Money Management Comments Pt states shares responsibility with his to pay bills. M6 OT- IP Functional Cognition Start: 03/08/19 16:16 Freq: Status: Active Protocol: Document 03/08/19 14:45 [facility] (Rec: 03/08/19 16:41 [facility] [id number]) Cognitive Factors Limiting Selfcare Function Cognitive Ability Level of Alertness Alert Patient Orientation Name Age Birthday Month Date Year Day of Week Place Situation Attention Span Ability Capable of Focused Attention Capable of Sustained Attention Ability to Follow Commands Able to Follow Multi-Step Commands Memory Description No Deficits Noted Safety Awareness Underestimates Need for Assistance Cognitive Comments Cognitive Assessment Comments Mild impulsivity otherwise appears intact. OT- Vision and Hearing OT- Hearing Assessment OT- Hearing Assessment WFL OT- Vision Assessment Visual Acuity Glasses For Reading M7 OT- IP Mobility and Balance Start: 03/08/19 16:16 Freq: Status: Active Protocol: Document 03/08/19 14:45 [facility] (Rec: 03/08/19 16:41 [facility] [id number]) OT- Bed Mobility Assessment Rolling Type of Rolling Roll to Right Level of Assistance Contact Guard Assistance Supine to Sit Supine to Sit Assist Contact Guard Assistance 1 Person Assistance Bedrails Sit to Supine Sit to Supine Assist Standby Assistance Head of Bed Elevated Bedrails OT-Transfer Assessment Sit to and From Stand Sit to and from Stand Contact Guard Assistance 1 Person Assistance Transfers Transfer Ability Contact Guard Assistance 1 Person Assistance Technique Transfer Destination Bed Transfer Technique Stand Step Pivot Devices Transfer Assistive Devices Gait Belt Front Wheeled Walker Comments Mobility Comments O2 levels on RA from 87% to 92 % and after a few deep breaths able to increase even when standing for grooming needs. Pt leaning on the counter for support while standing. Pt able to stand from window bench ,just needing CGA and cues to use at least one hand to push up from the bench. Pt states has 4WW at home but does not use it. OT- Balance Assessment Sitting Balance and Reactions Static Sitting Balance Ability Normal Standing Balance and Reactions Static Standing Balance Ability Fair M8 OT- IP Objective Assessments Start: 03/08/19 16:16 Freq: Status: Active Protocol: Document 03/08/19 14:45 [facility] (Rec: 03/08/19 16:41 [facility] [id number]) OT Gross Range of Motion Upper Extremity Range of Motion Assessment Within Functional Limits M9 OT- IP Assessment and Plan Start: 03/08/19 16:16 Freq: Status: Active Protocol: Document 03/08/19 14:45 [facility] (Rec: 03/08/19 16:41 [facility] [id number]) OT Summary Assessment and Plan Potential Rehabilitation Potential Good Analytic Complexity at Evaluation Low Summary OT Impairments Functional Mobility Grooming Dressing Toileting Bathing Toilet Transfers Shower Transfers Progress Towards Goals Progressing Toward Goals Slow Progress due to Medical Issues Assessment Summary Pt low complexity and main barrier is decreased activity tolerance and endurance as during functional activites O2 level drop to 87% at this time on RA. Pt only able to tolerate walking with FWW 20ft with CGA. Pt would benefit from home with assist with HH versus cardiac/ pulmonary rehab. Goals Grooming Goal Independent Dressing Goal Independent Toileting Goal Independent Bathing Goal Standby Assistance Toilet Transfer Goal Independent Shower Transfer Goal Standby Assistance OT-Other Goals Goals completed with FWW. Days to Meet Goals 7 Frequency of Treatment Frequency Of Treatment Once a Day Treatment Plan OT Treatment Plan ADL Training Functional Mobility Patient/Family Education Discharge Planning Other Treatment Recommendations and Next Shower, LB dressing education Treatment Focus with AED Discharge Recommendations OT Discharge Recommendations Home with Assistance ,HH Other Discharge Recommendations cardiac/pulmonary rehab Home Equipment Needs sock aid, back closer, tub bench
[2019-03-08 16:53] LABS: Creatine Kinase 201 U/L (55-170)
[2019-03-08 17:06] LABS: Troponin I 0.019 ng/mL (0.01-0.034)
[2019-03-08] MEDS: ALBUTEROL/IPRATROPIUM 3 ML AMPUL INH (17:25)
[2019-03-08] MEDS: POTASSIUM CHLORIDE 20 MEQ TAB PO (18:24)
[2019-03-08] MEDS: AZITHROMYCIN 250 MG in DEXTROSE 5% IN WATER 250 ML IV (18:31)
[2019-03-08] MEDS: INSULIN ASPART 100 UNIT/ML INSULN PEN SUBCUT ×3 (18:32→22:40)
[2019-03-08] MEDS: INSULIN ASPART 100 UNIT/ML INSULN PEN 30 UNIT SUBCUT (18:32)
[2019-03-08] MEDS: POLYETHYLENE GLYCOL 3350 17 GM POWD.PACK PO (18:39)
[2019-03-08] MEDS: ATORVASTATIN 20 MG TABLET 40 MG PO (22:29)
[2019-03-08] MEDS: methylPREDNISolone 125 MG/2 ML VIAL 60 MG IV (22:36)
[2019-03-09] VITALS (15 sets, daily range): BP systolic 131–183; BP diastolic 62–103; PULSE 64–90; RESP 16–20; TEMP 36.4–36.9; O2SAT 91–96
[2019-03-09] MEDS: TRAMADOL 50 MG TABLET PO ×2 (04:55→18:54)
--- NOTE | 2019-03-09 05:00 | PC.NURSE ---
2300- Pt here for COPD exacerbation w/ on and off chest pain. Denies any pain at this time; switched from RA to 2L O2 while sleeping. Cont SpO2 in place w/ stable sats, SOB w/ exertion & constant wheezing noted. Q2hr CIWA scoring taking place; pt is hypertensive however no DICKSON or tremors noted. AC HS BG stable thru the day & night. 0500- PO tramadol given for pain
[2019-03-09] MEDS: LEVOTHYROXINE 50 MCG TABLET PO (05:46)
[2019-03-09] MEDS: PANTOPRAZOLE 20 MG TABLET PO (05:46)
[2019-03-09 06:20] LABS: Add Manual Diff / Slide Review NO; Basophils Absolute Auto 0 /uL (0-100); Basophils Percent Auto 0.1 % (0-2); Eosinophils Absolute Auto 0 /uL (0-450); Hematocrit 39.5 % (41-53); Hemoglobin 13.5 g/dL (13.5-17.5); Lymphocytes Absolute Auto 700 /uL (1100-4500); Lymphocytes Percent Auto 6.7 % (25-40); Mean Corpuscular HGB Conc 34.2 % (30-36); Mean Corpuscular Hemoglobin 33.8 PG (26-34); Mean Corpuscular Volume 98.8 fL (80-100); Monocytes Absolute Auto 300 /uL (0-900); Monocytes Percent Auto 2.6 % (3-14); Neutrophils Absolute Auto 9800 /uL (1500-7000); Neutrophils Percent Auto 90.6 % (50-75); Platelet Count 221 X10^3/uL (150-400); Red Cell Distribution Width 15.2 % (11.6-14.8); White Blood Cell Count 10.9 X10^3/uL (4.5-11.0)
[2019-03-09 06:33] LABS: Alanine Aminotransferase 48 IU/L (21-72); Albumin Globulin Ratio 1.3 (1.0-2.8); Alkaline Phosphatase 77 U/L (38-126); Aspartate Aminotransferase 66 IU/L (17-59); BUN Creatinine Ratio 35.7 (6-22); Bilirubin Total 0.5 mg/dL (0.2-1.3); Blood Urea Nitrogen 25 mg/dL (9-20); Calcium 8.5 mg/dL (8.4-10.2); Carbon Dioxide 32 mmol/L (22-32); Chloride 97 mmol/L (98-107); Estimated Glomerular Filt Rate > 60.0 mL/min (>60); Globulin 3.1 g/dL (1.7-4.1); Glucose 195 mg/dL (80-110); HEMOLYSIS < 15 (0-50); Magnesium 1.5 mg/dL (1.6-2.3); Potassium 4.3 mmol/L (3.4-5.1); Sodium 138 mmol/L (137-145); Total Protein 7.1 g/dL (6.3-8.2)
[2019-03-09] MEDS: BECLOMETHASONE 40 MCG INH 10.6 GM 1 PUFF INH ×2 (07:11→20:22)
[2019-03-09] MEDS: ALBUTEROL/IPRATROPIUM 3 ML AMPUL INH ×4 (07:12→20:22)
[2019-03-09 07:28] LABS: Procalcitonin < 0.05 ng/mL (<0.5)
[2019-03-09] MEDS: NICOTINE 21 MG PATCH TOP (07:42)
[2019-03-09] MEDS: POLYETHYLENE GLYCOL 3350 17 GM POWD.PACK PO (08:52)
[2019-03-09] MEDS: CITALOPRAM 20 MG TABLET 40 MG PO (08:52)
[2019-03-09] MEDS: MULTIVITAMIN 1 TABLET 1 TAB PO (08:53)
[2019-03-09] MEDS: MAGNESIUM CHLORIDE 64 MG TABLET PO (08:53)
[2019-03-09] MEDS: METOPROLOL IR 25 MG TABLET PO ×2 (08:53→21:15)
[2019-03-09] MEDS: POTASSIUM CHLORIDE 20 MEQ TAB PO (08:54)
[2019-03-09] MEDS: FOLIC ACID 1 MG TABLET PO (08:54)
[2019-03-09] MEDS: GABAPENTIN 300 MG CAPSULE PO ×2 (08:55→21:08)
[2019-03-09] MEDS: ISOSORBIDE MONONITRATE ER 60 MG PO (08:55)
[2019-03-09] MEDS: LISINOPRIL 5 MG TABLET 2.5 MG PO (08:55)
[2019-03-09] MEDS: INSULIN ASPART 100 UNIT/ML INSULN PEN 30 UNIT SUBCUT ×2 (08:59→18:06)
[2019-03-09] MEDS: INSULIN ASPART 100 UNIT/ML INSULN PEN SUBCUT ×4 (09:01→21:20)
[2019-03-09] MEDS: HEPARIN 5,000 UNIT/ML VIAL 5000 UNIT SUBCUT ×2 (09:05→21:09)
--- NOTE | 2019-03-09 09:12 | PT.IPTN ---
Current Diagnoses Chronic obstructive pulmonary disease with (acute) exacerbation (03/07/19) Physical Therapy Treatment Note M2 PT-IP Current Condition Start: 03/07/19 12:32 Freq: NEEDED Status: Active Protocol: Document 03/08/19 10:24 [facility] (Rec: 03/08/19 13:18 AB [id number]) Physical Therapy Current Condition Current Condition Evaluation Date 03/08/19 Treatment Diagnosis COPD exacerbation; CHF; difficulty in walking Onset Date 03/07/19 Precautions Other Precautions O2 sat M3 PT-IP Subjective Start: 03/07/19 12:32 Freq: NEEDED Status: Active Protocol: Document 03/09/19 09:12 [facility] (Rec: 03/09/19 11:03 AB [id number]) Subjective Physical Therapy Visit Type Type Treatment Note Visit Start Time 09:12 Visit Stop Time 09:27 Total Visit Minutes 15 Number of COMBINATION WINDOW INSTALLER Visits 0 Physical Therapy Visit Comments Patient Comments pt requesting to use the toilet M4 PT-IP Mobility and Gait Start: 03/07/19 12:32 Freq: NEEDED Status: Active Protocol: Document 03/09/19 09:12 AB (Rec: 03/09/19 11:03 AB [id number]) PT-Bed Mobility Assessment Supine to Sit Supine to Sit Standby Assistance Head of Bed Elevated Bedrails Scooting Scooting to Edge of Bed Standby Assistance PT-Transfer Assessment Sit to and From Stand Sit to and from Stand Minimal Assistance Equipment Transfer Assistive Device Gait Belt Front Wheeled Walker Orthotic/Prosthetic Devices or Brace: No Transfers Transfer Destination Toilet Transfer Technique pt ambulated using FWW Transfer Ability Level of Assist Minimal Assistance Comments Mobility Comments pt completed sit to stand from EOB min A and cues and ambulated to the toilet using FWW ~ 10 ft min A. pt completed sit to stand from the toilet using grab bars CGA and ambulated towards the chair using FWW min A and cues . pt refused further ambulation/activities but agreed to stay up on the chair . postioned pt on the chair. call light and table placed within reach. pt presents with unsteady gait. O2 sat at room air: 90 to 96% Gait Assessment Comments Gait Comments pt ambulated to the toilet: pls refer to mobility section. M5 PT-IP Objective Assessments Start: 03/07/19 12:32 Freq: NEEDED Status: Active Protocol: Document 03/08/19 10:24 [facility] (Rec: 03/08/19 13:18 AB [id number]) Orientation Orientation/Cognition Level of Alertness Alert Orientation Name Age Place Situation Gross Range of Motion Upper Extremity ROM Assessment Within Functional Limits Strength Lower Extremity Strength Assessment Bilaterally Impaired Comments Strength Comments RLE: 3+/5 LLE 4-/5 Coordination Assessment Gross Coordination Gross Coordination WNL Sensation Assessment Sensation Gross Sensation WNL Muscle Tone Muscle Tone WNL Yes M6 PT-IP Treatment Start: 03/07/19 12:32 Freq: NEEDED Status: Active Protocol: Document 03/09/19 09:12 [facility] (Rec: 03/09/19 11:03 AB [id number]) Physical Therapy Treatment Education Education Provided Safety M7 PT-IP Assessment and Plan Start: 03/07/19 12:32 Freq: NEEDED Status: Active Protocol: Document 03/09/19 09:12 [facility] (Rec: 03/09/19 11:03 AB [id number]) PT Summary Assessment and Plan Potential Rehabilitation Potential Good Summary Impairments Pain ROM Strength Balance Coordination Sensation Tone Cognition Bed Mobility Transfers Gait Activity Tolerance Assessment Summary pt is progressing with mobility and requiring min A and cues. pt continues to have decrease activity tolerance affecting function/ mobility. d/c plan depending on progress and is spouse will be able to assist pt at home but at this time will require SNF rehab. Goals Transfer Goal Standby Assistance Front Wheeled Walker Four Wheeled Walker Gait Goal Standby Assistance Front Wheel Walker Four Wheel Walker Gait Distance 150 Other Goals up/down 2 steps with R rail ascending SBA Days to Meet Goals 10 Frequency of Treatment Frequency Of Treatment Twice a Day Treatment Plan Physical Therapy Treatment Plan Bed Mobility Training Transfer Training Gait Training Therapeutic Exercise Balance Retraining Discharge Planning Hot or Cold Pack Neuromuscular Re-ed Coordination Retraining Manual Therapy Other Recommendations and Next Treatment ambulation Focus Recommendations To Nursing Amount of Assist Needed 1 Person Assist Discharge Recommendations PT Discharge Recommendations SNF Rehab Other Discharge Recommendations depending on progress: SNF vs home with assist/homehealth PT
[2019-03-09] MEDS: methylPREDNISolone 125 MG/2 ML VIAL 60 MG IV (09:48)
[2019-03-09] MEDS: FUROSEMIDE 20 MG/2 ML VIAL IV ×2 (09:48→17:58)
[2019-03-09] MEDS: THIAMINE 100 MG TABLET PO (09:48)
[2019-03-09] MEDS: INSULIN GLARGINE 100 UNIT/ML 10ML VIAL 80 UNIT SUBCUT ×2 (09:48→21:20)
[2019-03-09] MEDS: SODIUM CHLORIDE 0.9% FLUSH 10 ML IV ×2 (09:48→21:18)
--- NOTE | 2019-03-09 15:01 | PT.IPTN ---
Current Diagnoses Chronic obstructive pulmonary disease with (acute) exacerbation (03/07/19) Physical Therapy Treatment Note M2 PT-IP Current Condition Start: 03/07/19 12:32 Freq: NEEDED Status: Active Protocol: Document 03/08/19 10:24 AB (Rec: 03/08/19 13:18 AB [id number]) Physical Therapy Current Condition Current Condition Evaluation Date 03/08/19 Treatment Diagnosis COPD exacerbation; CHF; difficulty in walking Onset Date 03/07/19 Precautions Other Precautions O2 sat M3 PT-IP Subjective Start: 03/07/19 12:32 Freq: NEEDED Status: Active Protocol: Document 03/09/19 14:52 SA (Rec: 03/09/19 15:01 SA [id number]) Subjective Physical Therapy Visit Type Type Treatment Note Visit Start Time 14:35 Visit Stop Time 14:50 Total Visit Minutes 15 Number of MECHANIC SENIOR Visits 1 Physical Therapy Visit Comments Patient Comments Pt in bed and agreeable to PT. Patient Goals To get home and stop smoking. Therapy Pain Assessment Pain When Pain Assessed During Mobility Pain Present Pain Present Denied Pain M4 PT-IP Mobility and Gait Start: 03/07/19 12:32 Freq: NEEDED Status: Active Protocol: Document 03/09/19 14:52 SA (Rec: 03/09/19 15:01 SA [id number]) PT-Bed Mobility Assessment Supine to Sit Supine to Sit Standby Assistance Bedrails Sit to Supine Sit to Supine Standby Assistance Bedrails Scooting Scooting to Edge of Bed Standby Assistance Scooting Up and Down in Bed Standby Assistance PT-Transfer Assessment Sit to and From Stand Sit to and from Stand Contact Guard Assistance Equipment Transfer Assistive Device Gait Belt Front Wheeled Walker Orthotic/Prosthetic Devices or Brace: No Transfers Transfer Destination Bed Chair Transfer Technique pt ambulated using FWW Transfer Ability Level of Assist Contact Guard Assistance 1 Person Assistance Comments Mobility Comments PT CGA with transfers and SBA with bed mobility, needs cues for safety. Gait Assessment Gait Gait Assistance Required: Contact Guard Assist 1 Person Assist Distance (Feet) 80 Able to Maintain Weight Bearing Status Yes During Gait Assistive Devices Assistive Device Gait Belt Front Wheeled Walker Orthotic/Prosthetic Devices or Brace: No Gait Deviations General Gait Pattern Antalgic Decreased Stride Length Decreased Feet Clearance Factors Limiting Gait Function Factors Limiting Gait Function Decreased Activity Tolerance Decreased Sensation Poor Balance Poor Safety Awareness Comments Gait Comments [facility], cues for safety and BLE step length. M5 PT-IP Objective Assessments Start: 03/07/19 12:32 Freq: NEEDED Status: Active Protocol: Document 03/08/19 10:24 AB (Rec: 03/08/19 13:18 AB [id number]) Orientation Orientation/Cognition Level of Alertness Alert Orientation Name Age Place Situation Gross Range of Motion Upper Extremity ROM Assessment Within Functional Limits Strength Lower Extremity Strength Assessment Bilaterally Impaired Comments Strength Comments RLE: 3+/5 LLE 4-/5 Coordination Assessment Gross Coordination Gross Coordination WNL Sensation Assessment Sensation Gross Sensation WNL Muscle Tone Muscle Tone WNL Yes M6 PT-IP Treatment Start: 03/07/19 12:32 Freq: NEEDED Status: Active Protocol: Document 03/09/19 14:52 SA (Rec: 03/09/19 15:01 SA [id number]) Physical Therapy Treatment Exercises Exercises Ankle Pumps Gluteal Sets Straight Leg Raises Education Education Provided Safety Other Treatments Other Treatment Performed Education for smoking cessation. M7 PT-IP Assessment and Plan Start: 03/07/19 12:32 Freq: NEEDED Status: Active Protocol: Document 03/09/19 14:52 SA (Rec: 03/09/19 15:01 [id number]) PT Summary Assessment and Plan Potential Rehabilitation Potential Good Summary Impairments Pain ROM Strength Balance Coordination Sensation Tone Cognition Bed Mobility Transfers Gait Activity Tolerance Assessment Summary Pt progressing well with gait and funcitonal mobility, improving endurance. 02 sats 90-95% on RA with activity. Frequency of Treatment Frequency Of Treatment Twice a Day Treatment Plan Physical Therapy Treatment Plan Bed Mobility Training Transfer Training Gait Training Therapeutic Exercise Balance Retraining Discharge Planning Hot or Cold Pack Neuromuscular Re-ed Coordination Retraining Manual Therapy Recommendations To Nursing Amount of Assist Needed 1 Person Assist Discharge Recommendations PT Discharge Recommendations SNF Rehab Other Discharge Recommendations depending on progress: SNF vs home with assist/homehealth PT
--- NOTE | 2019-03-09 15:52 | CM.DPC ---
DCP Cont: Per MD, pt currently not medically stable for d/c to either SNF or CD Inpt tx but possibly in the next 24-48. Per RN, had a lengthy discussion about pt stating he is very agreeable to Inpt CD tx if his [place] covers that. Per PT, recommending SNF at this time due to weakness and increased falls. ZEFERINO Ventura kindly making phone calls to [place] to determine pt's [facility]al [facility] benefits and coverage but may take a day to get a [place] from [place]. SW met bedside with pt and explained role and discussed possible d/c options and pt confirms that he would be very agreeable to Inpt CD tx if we confirm [place] will cover. SW discussed SNF and pt's preference would be to go to SNF under Medicare and stay in [place] at [facility] if possible. Pt states he plans to stop drinking and smoking and he feels either SNF or Inpt CD tx would benefit him either way. Pt's spouse to be bedside later. Plan: SW to follow for return call from [place] to determine his benefits for Inpt CD tx and also to make referral to [facility] to determine if they can utilize his Medicare for SNF rehab and if they could accept the pt. LYN Downs
--- NOTE | 2019-03-09 16:01 | OT.IP.TRT ---
Current Diagnoses Chronic obstructive pulmonary disease with (acute) exacerbation (03/07/19) Occupational Therapy Treatment Note M2 OT-IP Current Condition Start: 03/08/19 16:16 Freq: Status: Active Protocol: Document 03/08/19 14:45 CCC (Rec: 03/08/19 16:41 CCC [id number]) Occupational Therapy Current Condition Current Condition Evaluation Date 03/08/19 Treatment Diagnosis COPD exacerbation, CHF Diagnosis Onset Date 03/07/19 M3 OT- IP Subjective and Pain Start: 03/08/19 16:16 Freq: Status: Active Protocol: Document 03/09/19 16:01 PJM (Rec: 03/09/19 16:47 PJM [id number]) OT- Subjective Occupational Therapy Visit Type Type Treatment Note Visit Start Time 15:30 Visit Stop Time 16:01 Total Visit Minutes 31 Occupational Therapy Visit Comments Patient Comments Thank you for that equipment. It will help alot. I know I need to stop drinking and I already have 3 days without it. Patient/Caregiver Goals to get stronger and stop drinking because my liver is shot OT Pain Assessment Pain When Pain Assessed After Treatment Pain Present Pain Present Denied Pain M4 OT- IP ADL's Start: 03/08/19 16:16 Freq: Status: Active Protocol: Document 03/09/19 16:01 PJM (Rec: 03/09/19 16:47 PJM [id number]) OT ADL-Dressing General Eval Lower Body Dressing Ability Minimal Assistance Areas Needing Assistance Socks Assistive Devices Dressing Assistive Devices Long Handled Shoe Horn Manager Relationship Sock Aid Comments OT Dressing Comments Pt educated re: use of event coordinator marketing and sales to doff socks and sock aid to don them. He states his granddaughter has been helping him with this at home. Pt has potential to be independent with dressing with new equipt provided to him after further practice. OT ADL-Toileting General Evaluation Toileting Ability Maximum Assistance Areas Needing Assistance Perform Perineal Hygiene Devices Toileting Assistive Devices Toilet Paper Aid Comments OT Toileting Comments Pt has difficulty reaching bottom to wipe and to wash in shower. Provided education/ resource information re: toilet paper aids. OT ADL-Bathing Comments OT Bathing Comments Pt states he showered with NET APPLICATIONS DEVELOPER today needing assist to wash bottom due to inability to reach. Provided long bath sponge to pt. Provided education re: types of tub seats and grab bars, prices, and resources for loan or purchase. M6 OT- IP Functional Cognition Start: 03/08/19 16:16 Freq: Status: Active Protocol: Document 03/08/19 14:45 [facility] (Rec: 03/08/19 16:41 [facility] [id number]) Cognitive Factors Limiting Selfcare Function Cognitive Ability Level of Alertness Alert Patient Orientation Name Age Birthday Month Date Year Day of Week Place Situation Attention Span Ability Capable of Focused Attention Capable of Sustained Attention Ability to Follow Commands Able to Follow Multi-Step Commands Memory Description No Deficits Noted Safety Awareness Underestimates Need for Assistance Cognitive Comments Cognitive Assessment Comments Mild impulsivity otherwise appears intact. OT- Vision and Hearing OT- Hearing Assessment OT- Hearing Assessment WFL OT- Vision Assessment Visual Acuity Glasses For Reading M7 OT- IP Mobility and Balance Start: 03/08/19 16:16 Freq: Status: Active Protocol: Document 03/09/19 16:01 [employer] (Rec: 03/09/19 16:47 PJM [id number]) OT- Bed Mobility Assessment Rolling Type of Rolling Roll to Right Level of Assistance Standby Assistance 1 Person Assistance Head of Bed Elevated Bedrails Supine to Sit Supine to Sit Assist Standby Assistance 1 Person Assistance Head of Bed Elevated Bedrails Sit to Supine Sit to Supine Assist Standby Assistance Head of Bed Elevated Bedrails Scooting Scooting to Edge of Bed Standby Assistance Scooting Up and Down in Bed Standby Assistance OT-Transfer Assessment Sit to and From Stand Sit to and from Stand Contact Guard Assistance Technique Transfer Destination Bed Comments Mobility Comments pt stood up by edge of bed to side step towards head of bed with CGA OT- Gait Assessment Comments Gait Ability Comments see P.T. notes M8 OT- IP Objective Assessments Start: 03/08/19 16:16 Freq: Status: Active Protocol: Document 03/08/19 14:45 [facility] (Rec: 03/08/19 16:41 [facility] [id number]) OT Gross Range of Motion Upper Extremity Range of Motion Assessment Within Functional Limits M9 OT- IP Assessment and Plan Start: 03/08/19 16:16 Freq: Status: Active Protocol: Document 03/09/19 16:01 PJM (Rec: 03/09/19 16:47 PJM [id number]) OT Summary Assessment and Plan Potential Rehabilitation Potential Good Summary OT Impairments Strength Balance Functional Mobility Dressing Toileting Bathing Toilet Transfers Shower Transfers Progress Towards Goals Progressing Toward Goals Assessment Summary Pt presents with increasing activity tolerance and independence in lower body dressing and toileting with use of adaptive equipment. Written information provided re: resources for toilet paper aids, tub seats and grab bars . O2 sats stable this session in low to mid 90's on room air . Pt alert, oriented and verbalizing motivation to increase strength, independence and stop alcohol use. Pt is good candidate for subacute rehab program to increase independence in all self care and progress to light IADLS such as meal prep. 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 Goals Grooming Goal Independent Dressing Goal Independent Toileting Goal Independent Bathing Goal Standby Assistance Toilet Transfer Goal Independent Shower Transfer Goal Standby Assistance OT-Other Goals Goals completed with FWW. Days to Meet Goals 6 Frequency of Treatment Frequency Of Treatment Once a Day Treatment Plan OT Treatment Plan ADL Training Functional Mobility Patient/Family Education Discharge Planning Discharge Recommendations OT Discharge Recommendations Home with Assistance Other Discharge Recommendations cardiac/pulmonary rehab Home Equipment Needs tub seat, grab bars, toilet paper aid event coordinator marketing and sales, sock aid, long shoe horn and bath sponge provided
--- NOTE | 2019-03-09 18:02 | PM.PN.1 ---
Subjective Date Patient Seen: 03/09/19 Interval history: Carlos Randall is a 63-year-old male with past medical history significant for coronary artery disease status post coronary stents x2, hypertension, hyperlipidemia, diabetes mellitus type 2, insulin using, poorly controlled, chronic kidney disease stage 2, significant alcoholism without history of withdrawal who presented for progressive worsening shortness of breath. The patient is resting in bed comfortably. He continues to have nonproductive dry cough with paroxysms that are bronchospastic in nature which are improving with IV steroids and azithromycin for anti-inflammatory benefit. His respiratory viral PCR was negative. He reports his breathing has improved. He is off of oxygen for the last Discussed his liver ultrasound in detail and the complications of cirrhosis. His last CIWA score was 2. He thinks me for all the information and reports that he wants to make radical lifestyle changes in regards to smoking and alcohol. He would like to go to intensive inpatient treatment for alcoholism. He denies headache, abdominal pain, nausea, vomiting, fever, chills, dysuria, diarrhea or constipation. He is voiding and eliminating without difficulty. He is up minimally due to generalized weakness with assistance and PT/OT. Exam Vital Signs (past 8 hours): - 03/09/19 11:05 03/09/19 11:18 03/09/19 15:17 Temperature 98.4 F Pulse Rate 66 64 72 Respiratory Rate 18 16 18 Blood Pressure 133/79 Pulse Oximetry 94 94 93 03/09/19 15:46 Temperature 98.3 F Pulse Rate 69 Respiratory Rate 20 Blood Pressure 135/73 Pulse Oximetry 92 Fraction of Inspired Oxygen 21 Oxygen Delivery Method Room Air Oxygen Flow Rate 0 Narrative Exam Narrative: General: Older gentleman lying in bed and in no acute distress, appears mildly uncomfortable, well-developed, well-nourished, appropriately interactive. HEENT: Normocephalic, atraumatic. External ears without defect. Pupils equal, round, and reactive to light. Anicteric sclerae, moist conjunctivae, and no lid lag. Oropharynx free of erythema and cobble stoning with moist mucosa. Neck: Supple with full range of motion. No jugular venous distension. No bruits. No lymphadenopathy or thyromegaly. Cardiovascular: Regular rate and rhythm without murmurs, rubs, or gallops appreciated Pulmonary: Clear to auscultation bilaterally without wheeze, crackles or rhonchi. Normal respiratory effort with no use of accessory muscles. Abdomen: Soft but protuberant, mild tympany but bowel sounds present, nontender. Several firm areas of skin on right lower quadrant of abdomen where patient injects insulin repeatedly. Due to body habitus was unable to appreciate hepatosplenomegaly or masses. Extremities: No clubbing, cyanosis, or edema. Abrasion with eschar in place on right lower extremity, does not appear infected. Mild stasis dermatitis. Skin: Normal temperature, turgor, and texture; no rash, ulcers, or subcutaneous nodules appreciated. Stigmata of liver disease including pulmonary erythema and spider angiomata of chest. No caput medusae, asterixis, or jaundice. Neurological: Cranial nerves grossly intact. Psychiatric: Depressed mood and normal affect. Alert and oriented to person, place, and time. Objective Labs Result Diagrams: 03/09/19 05:50 03/09/19 05:50 Labs: Laboratory Results - last 24 hr 03/09/19 03/09/19 03/09/19 05:50 05:50 05:50 WBC 10.9 RBC 4.00 L Hgb 13.5 Hct 39.5 L MCV 98.8 MCH 33.8 MCHC 34.2 RDW 15.2 H Plt Count 221 Neut % (Auto) 90.6 H D Lymph % (Auto) 6.7 L [place] % (Auto) 2.6 L Eos % (Auto) 0.0 L Baso % (Auto) 0.1 Neut # (Auto) 9800 H Lymph # (Auto) 700 L [place] # (Auto) 300 Eos # (Auto) 0 Baso # (Auto) 0 Sodium 138 Potassium 4.3 Chloride 97 L Carbon Dioxide 32 BUN 25 H Creatinine 0.70 Estimated GFR > 60.0 BUN/Creatinine Ratio 35.7 H Glucose 195 H Calcium 8.5 Magnesium 1.5 L Total Bilirubin 0.5 AST 66 H ALT 48 Alkaline Phosphatase 77 Total Protein 7.1 Albumin 4.0 Globulin 3.1 Albumin/Globulin Ratio 1.3 Procalcitonin < 0.05 Assessment & Plan Assessment & Plan narrative: Carlos Randall is a 63-year-old male with past medical history significant for coronary artery disease status post coronary stents x2, hypertension, hyperlipidemia, diabetes mellitus type 2, insulin using, poorly controlled, chronic kidney disease stage 2, significant alcoholism without history of withdrawal who presented for progressive worsening shortness of breath. 1. Acute COPD exacerbation with acute hypoxemic respiratory failure, present on admission. Acute hypoxemic respiratory failure resolved and COPD exacerbation resolving. -Patient presented with worsening shortness of breath and hypoxemia with oxygen saturation in the mid 80's on room air. Not on oxygen at home. -Received methylprednisolone 125 mg IV x1. Decreased methylprednisolone from 60 mg to 40 mg every 12 hours. -Received azithromycin 500 mg in ED and will continue 250 mg daily for anti-inflammatory benefits. -Respiratory viral PCR which was negative. -Ordered supplemental oxygen as needed. Oxygen saturation goal 88-92%. No longer on oxygen. -Consulted respiratory therapy for evaluation and treatment. Continue duo nebs every 4 hours while awake and albuterol nebs every 2 hours as needed. Continue QVAR 1 puff twice daily. -Recommend solar water heater installer evaluation and treatment in the future. 2. Bilateral pleural effusions, likely acute but unclear, present on admission. Resolved. -Likely secondary to liver cirrhosis versus other etiology. CHF ruled out. -CTA demonstrated moderate bilateral pleural effusions. Unclear etiology. Possibly secondary to CHF versus liver cirrhosis. -Echocardiogram demonstrated normal LV with preserved function and EF of 60-65%, borderline dilated RV with normal function, normal LV diastolic function, RVSP 29, left atrium moderately dilated, right atrium is mildly dilated, there is mild mitral regurg, no other significant valvular heart disease, and ascending aorta is mildly enlarged. -Liver ultrasound demonstrated diffuse increased echogenicity of the liver is compatible cirrhosis and possible superimposed hepatic steatosis may be present, no definite liver lesions, and no ascites. 3. Acute costochondritis with chronic stable angina, present on admission. Active. -Chest pain reproducible with palpation. Patient has dry bronchospastic cough paroxysms causing chest wall pain. -Continue Imdur 60 mg daily. Patient has multiple cardiac risk factors including: CAD, hypertension, hyperlipidemia, diabetes mellitus type 2, insulin using and uncontrolled, current smoker, gender, age, obstructive sleep apnea not on CPAP. However, trop negative x 2, EKG negative and he received sublingual nitroglycerin without improvement in chest pain and mild improvement with morphine. -Ordered tramadol 50 mg 3 times daily as needed for severe pain. 4. Alcohol abuse, chronic, present on admission. Stable. -Patient denies any history of alcohol withdrawal, DTs or alcohol withdrawal seizure. -Patient readily admits to drinking 2.5 gal of whiskey per week. Patient has not gone prolonged amount of time without alcohol. His last drink was the evening of 03/06. -CIWA protocol initiated. No active withdrawal symptoms currently. Most recent CIWA score 2. -Continue multivitamin, folate, and thiamine supplementation. Replete electrolytes (K and Mg) as needed. -Patient would like to go to inpatient intensive treatment for alcoholism. 5. Coronary artery disease status post stenting x2, chronic, present on admission. Presume stable. -Continue atorvastatin 40 mg daily at bedtime, Imdur 60 mg daily, furosemide 20 mg IV twice daily as above, lisinopril 2.5 mg daily, and metoprolol tartrate 25 mg twice daily. -Patient is not on aspirin possibly due to alcoholism and potential underlying liver disease? -The patient reports he has not seen a parts sales associate in least 5 years. Recommend outpatient cardiology follow-up. 6. Hypertension, chronic, present on admission. Stable. -Continue Imdur 60 mg daily, furosemide 20 mg IV twice daily as above, lisinopril 2.5 mg daily, and metoprolol tartrate 25 mg twice daily. 7. Hyperlipidemia, chronic, present on admission. Stable. -Continue atorvastatin 40 mg daily at bedtime. 8. Diabetes mellitus type 2, insulin using, present on admission. Stable. -Hemoglobin A1c 8.4% 03/20. -Continue Lantus 80 units twice daily. -Continue [facility] blood glucose checks and high-dose correctional scale insulin. -Continue heart healthy/carbohydrate consistent diet. -Continue gabapentin 300 mg twice daily. 9. CKD stage 2 ruled out. -Patient reports chronic stage 2 kidney disease in the past. GFR > 60, creatinine clearance 66 and creatinine 0.70 all within normal limits. -Continue to avoid nephrotoxic agents. 10. Hypothyroidism, chronic, present on admission. Stable. -Continue levothyroxine 50 mcg daily. 11. Depression, chronic, present on admission. Stable. -Continue citalopram 40 mg daily. 12. Tobacco dependence, chronic, present on admission. Stable. -Ordered nicotine patch 21 mg daily as needed for nicotine withdrawal. 13. Essential tremor, chronic, present on admission. Stable. -Not medically treated. Patient drinks alcohol daily which likely is some form of self-medication. 14. Obstructive sleep apnea not on CPAP, chronic, present on admission. Stable. -Encouraged compliance with CPAP and discussed effects of untreated KATI. -Ordered CPAP per RT protocol. Disposition: Likely to discharge inpatient intensive treatment for alcoholism versus [facility] facility in 1-2 days with improvement in COPD exacerbation treatment. Quality VTE Deep Vein Thrombosis/Pulmonary Embolism Present on Admission: No
[2019-03-09] MEDS: AZITHROMYCIN 250 MG in DEXTROSE 5% IN WATER 250 ML IV (18:06)
--- NOTE | 2019-03-09 18:06 | P.PN_ITS ---
Subjective Date Patient Seen: 03/09/19 Interval history: Carlos Randall is a 63-year-old male with past medical history significant for coronary artery disease status post coronary stents x2, hypertension, hyp erlipidemia, diabetes mellitus type 2, insulin using, poorly controlled, chronic kidney disease stage 2, significant alcoholism without history of withdrawal who presented for progressive worsening shortness of breath. The patient is resting in bed comfortably. He continues to have nonproductive dry cough with paroxysms that are bronchospastic in nature which are improving with IV steroids and azithromycin for anti-inflammatory benefit. His respiratory viral PCR was negative. He reports his breathing has improved. He is off of oxygen for the last Discussed his liver ultrasound in detail and the complications of cirrhosis. His last CIWA score was 2. He thinks me for all the information and reports that he wants to make radical lifestyle changes in regards to smoking and alcohol. He would like to go to intensive inpatient treatment for alcoholism. He denies headache, abdominal pain, nausea, vomiting, fever, chills, dysuria, diarrhea or constipation. He is voiding and eliminating without difficulty. He is up minimally due to generalized weakness with assistance and PT/OT. Exam Vital Signs (past 8 hours): - 03/09/19 11:05 03/09/19 11:18 03/09/19 15:17 Temperature 98.4 F Pulse Rate 66 64 72 Respiratory Rate 18 16 18 Blood Pressure 133/79 Pulse Oximetry 94 94 93 03/09/19 15:46 Temperature 98.3 F Pulse Rate 69 Respiratory Rate 20 Blood Pressure 135/73 Pulse Oximetry 92 Fraction of Inspired Oxygen 21 Oxygen Delivery Method Room Air Oxygen Flow Rate 0 Narrative Exam Narrative: General: Older gentleman lying in bed and in no acute distress, appears mildly uncomfortable, well-developed, well-nourished, appropriately interactive. HEENT: Normocephalic, atraumatic. External ears without defect. Pupils equal, round, and reactive to light. Anicteric sclerae, moist conjunctivae, and no lid lag. Oropharynx free of erythema and cobble stoning with moist mucosa. Neck: Supple with full range of motion. No jugular venous distension. No bruits. No lymphadenopathy or thyromegaly. Cardiovascular: Regular rate and rhythm without murmurs, rubs, or gallops appreciated Pulmonary: Clear to auscultation bilaterally without wheeze, crackles or rhonchi. Normal respiratory effort with no use of accessory muscles. Abdomen: Soft but protuberant, mild tympany but bowel sounds present, nontender. Several firm areas of skin on right lower quadrant of abdomen where patient injects insulin repeatedly. Due to body habitus was unable to appreciate hepatosplenomegaly or masses. Extremities: No clubbing, cyanosis, or edema. Abrasion with eschar in place on right lower extremity, does not appear infected. Mild stasis dermatitis. Skin: Normal temperature, turgor, and texture; no rash, ulcers, or subcutaneous nodules appreciated. Stigmata of liver disease including pulmonary erythema and spider angiomata of chest. No caput medusae, asterixis, or jaundice. Neurological: Cranial nerves grossly intact. Psychiatric: Depressed mood and normal affect. Alert and oriented to person, place, and time. Objective Labs Result Diagrams: 03/09/19 05:50 03/09/19 05:50 Labs: Laboratory Results - last 24 hr 03/09/19 03/09/19 03/09/19 05:50 05:50 05:50 WBC 10.9 RBC 4.00 L Hgb 13.5 Hct 39.5 L MCV 98.8 MCH 33.8 MCHC 34.2 RDW 15.2 H Plt Count 221 Neut % (Auto) 90.6 H D Lymph % (Auto) 6.7 L [place] % (Auto) 2.6 L Eos % (Auto) 0.0 L Baso % (Auto) 0.1 Neut # (Auto) 9800 H Lymph # (Auto) 700 L [place] # (Auto) 300 Eos # (Auto) 0 Baso # (Auto) 0 Sodium 138 Potassium 4.3 Chloride 97 L Carbon Dioxide 32 BUN 25 H Creatinine 0.70 Estimated GFR > 60.0 BUN/Creatinine Ratio 35.7 H Glucose 195 H Calcium 8.5 Magnesium 1.5 L Total Bilirubin 0.5 AST 66 H ALT 48 Alkaline Phosphatase 77 Total Protein 7.1 Albumin 4.0 Globulin 3.1 Albumin/Globulin Ratio 1.3 Procalcitonin < 0.05 Assessment & Plan Assessment & Plan narrative: Carlos Randall is a 63-year-old male with past medical history significant for coronary artery disease status post coronary stents x2, hypertension, hyperlipidemia, diabetes mellitus type 2, insulin using, poorly controlled, chronic kidney disease stage 2, significant alcoholism without history of wi thdrawal who presented for progressive worsening shortness of breath. 1. Acute COPD exacerbation with acute hypoxemic respiratory failure, present on admission. Acute hypoxemic respiratory failure resolved and COPD exacerbation resolving. -Patient presented with worsening shortness of breath and hypoxemia with oxygen saturation in the mid 80's on room air. Not on oxygen at home. -Received methylprednisolone 125 mg IV x1. Decreased methylprednisolone from 60 mg to 40 mg every 12 hours. -Received azithromycin 500 mg in ED and will continue 250 mg daily for anti- inflammatory benefits. -Respiratory viral PCR which was negative. -Ordered supplemental oxygen as needed. Oxygen saturation goal 88-92%. No longer on oxygen. -Consulted respiratory therapy for evaluation and treatment. Continue duo nebs every 4 hours while awake and albuterol nebs every 2 hours as needed. Continue QVAR 1 puff twice daily. -Recommend starch cooker evaluation and treatment in the future. 2. Bilateral pleural effusions, likely acute but unclear, present on admission. Resolved. -Likely secondary to liver cirrhosis versus other etiology. CHF ruled out. -CTA demonstrated moderate bilateral pleural effusions. Unclear etiology. Possibly secondary to CHF versus liver cirrhosis. -Echocardiogram demonstrated normal LV with preserved function and EF of 60-65%, borderline dilated RV with normal function, normal LV diastolic function, RVSP 29, left atrium moderately dilated, right atrium is mildly dilated, there is mild mitral regurg, no other significant valvular heart disease, and ascending aorta is mildly enlarged. -Liver ultrasound demonstrated diffuse increased echogenicity of the liver is compatible cirrhosis and possible superimposed hepatic steatosis may be present, no definite liver lesions, and no ascites. 3. Acute costochondritis with chronic stable angina, present on admission. Ac tive. -Chest pain reproducible with palpation. Patient has dry bronchospastic cough paroxysms causing chest wall pain. -Continue Imdur 60 mg daily. Patient has multiple cardiac risk factors includin g: CAD, hypertension, hyperlipidemia, diabetes mellitus type 2, insulin using and uncontrolled, current smoker, gender, age, obstructive sleep apnea not on CPAP. However, trop negative x 2, EKG negative and he received sublingual nitroglycerin without improvement in chest pain and mild improvement with morphine. -Ordered tramadol 50 mg 3 times daily as needed for severe pain. 4. Alcohol abuse, chronic, present on admission. Stable. -Patient denies any history of alcohol withdrawal, DTs or alcohol withdrawal seizure. -Patient readily admits to drinking 2.5 gal of whiskey per week. Patient has not gone prolonged amount of time without alcohol. His last drink was the evening of 03/06. -CIWA protocol initiated. No active withdrawal symptoms currently. Most recent CIWA score 2. -Continue multivitamin, folate, and thiamine supplementation. Replete electrolytes (K and Mg) as needed. -Patient would like to go to inpatient intensive treatment for alcoholism. 5. Coronary artery disease status post stenting x2, chronic, present on admission. Presume stable. -Continue atorvastatin 40 mg daily at bedtime, Imdur 60 mg daily, furosemide 20 mg IV twice daily as above, lisinopril 2.5 mg daily, and metoprolol tartrate 25 mg twice daily. -Patient is not on aspirin possibly due to alcoholism and potential underlying liver disease? -The patient reports he has not seen a cable cutter and swager in least 5 years. Recommend outpatient cardiology follow-up. 6. Hypertension, chronic, present on admission. Stable. -Continue Imdur 60 mg daily, furosemide 20 mg IV twice daily as above, lisinopril 2.5 mg daily, and metoprolol tartrate 25 mg twice daily. 7. Hyperlipidemia, chronic, present on admission. Stable. -Continue atorvastatin 40 mg daily at bedtime. 8. Diabetes mellitus type 2, insulin using, present on admission. Stable. -Hemoglobin A1c 8.4% 03/20. -Continue Lantus 80 units twice daily. -Continue ACHS blood glucose checks and high-dose correctional scale insulin. -Continue heart healthy/carbohydrate consistent diet. -Continue gabapentin 300 mg twice daily. 9. CKD stage 2 ruled out. -Patient reports chronic stage 2 kidney disease in the past. GFR > 60, creatinine clearance 66 and creatinine 0.70 all within normal limits. -Continue to avoid nephrotoxic agents. 10. Hypothyroidism, chronic, present on admission. Stable. -Continue levothyroxine 50 mcg daily. 11. Depression, chronic, present on admission. Stable. -Continue citalopram 40 mg daily. 12. Tobacco dependence, chronic, present on admission. Stable. -Ordered nicotine patch 21 mg daily as needed for nicotine withdrawal. 13. Essential tremor, chronic, present on admission. Stable. -Not medically treated. Patient drinks alcohol daily which likely is some form of self-medication. 14. Obstructive sleep apnea not on CPAP, chronic, present on admission. Stable. -Encouraged compliance with CPAP and discussed effects of untreated KATI. -Ordered CPAP per RT protocol. Disposition: Likely to discharge inpatient intensive treatment for alcoholism versus fpc facility in 1-2 days with improvement in COPD exacerbation treatment. Quality VTE Deep Vein Thrombosis/Pulmonary Embolism Present on Admission: No
[2019-03-09] MEDS: ATORVASTATIN 20 MG TABLET 40 MG PO (21:07)
[2019-03-10] VITALS (14 sets, daily range): BP systolic 142–173; BP diastolic 71–95; PULSE 66–91; RESP 14–20; TEMP 36–36.8; O2SAT 91–996
--- NOTE | 2019-03-10 01:55 | PC.NURSE ---
Per patient: he states he drinks two 1/2 gallon containers of whiskey every 8 days which is approx 8 1 ounce drinks a day. He states he wants inpatient treatment for alcoholism. LS coarse in bases with inspiratory and expiratory wheezes throughout. VSS, afebrile.
[2019-03-10] MEDS: ALBUTEROL/IPRATROPIUM 3 ML AMPUL INH ×4 (04:22→20:35)
[2019-03-10] MEDS: BECLOMETHASONE 40 MCG INH 10.6 GM 1 PUFF INH ×2 (04:23→20:35)
--- NOTE | 2019-03-10 05:47 | PC.NURSE ---
Pt Blood glucose at 0200 = 215.
[2019-03-10 07:12] LABS: Alanine Aminotransferase 63 IU/L (21-72); Albumin 4.3 g/dL (3.5-5.0); Albumin Globulin Ratio 1.3 (1.0-2.8); Alkaline Phosphatase 74 U/L (38-126); Aspartate Aminotransferase 69 IU/L (17-59); BUN Creatinine Ratio 41.4 (6-22); Bilirubin Total 0.6 mg/dL (0.2-1.3); Blood Urea Nitrogen 29 mg/dL (9-20); Calcium 8.9 mg/dL (8.4-10.2); Carbon Dioxide 29 mmol/L (22-32); Chloride 94 mmol/L (98-107); Estimated Glomerular Filt Rate > 60.0 mL/min (>60); Globulin 3.4 g/dL (1.7-4.1); Glucose 276 mg/dL (80-110); HEMOLYSIS 31 (0-50); Magnesium 1.6 mg/dL (1.6-2.3); Potassium 4.4 mmol/L (3.4-5.1); Sodium 135 mmol/L (137-145); Total Protein 7.7 g/dL (6.3-8.2)
[2019-03-10] MEDS: ISOSORBIDE MONONITRATE ER 60 MG PO (07:52)
[2019-03-10] MEDS: LEVOTHYROXINE 50 MCG TABLET PO (07:52)
[2019-03-10] MEDS: PANTOPRAZOLE 20 MG TABLET PO (07:52)
[2019-03-10] MEDS: FOLIC ACID 1 MG TABLET PO (08:18)
[2019-03-10] MEDS: MULTIVITAMIN 1 TABLET 1 TAB PO (08:18)
[2019-03-10] MEDS: LISINOPRIL 5 MG TABLET 2.5 MG PO (08:19)
[2019-03-10] MEDS: THIAMINE 100 MG TABLET PO (08:21)
[2019-03-10] MEDS: GABAPENTIN 300 MG CAPSULE PO ×2 (08:21→21:13)
[2019-03-10] MEDS: METOPROLOL IR 25 MG TABLET PO ×2 (08:21→21:14)
[2019-03-10] MEDS: POTASSIUM CHLORIDE 20 MEQ TAB PO (08:21)
[2019-03-10] MEDS: FUROSEMIDE 40 MG TABLET PO (08:21)
[2019-03-10] MEDS: NICOTINE 21 MG PATCH TOP (08:22)
[2019-03-10] MEDS: MAGNESIUM CHLORIDE 64 MG TABLET 128 MG PO (08:22)
[2019-03-10] MEDS: HEPARIN 5,000 UNIT/ML VIAL 5000 UNIT SUBCUT ×2 (08:23→21:14)
[2019-03-10] MEDS: CITALOPRAM 20 MG TABLET 40 MG PO (08:23)
[2019-03-10] MEDS: SODIUM CHLORIDE 0.9% FLUSH 10 ML IV ×2 (08:24→21:24)
[2019-03-10] MEDS: INSULIN ASPART 100 UNIT/ML INSULN PEN 30 UNIT SUBCUT ×2 (08:25→17:06)
[2019-03-10] MEDS: INSULIN GLARGINE 100 UNIT/ML 10ML VIAL 80 UNIT SUBCUT ×2 (08:27→21:26)
[2019-03-10] MEDS: INSULIN ASPART 100 UNIT/ML INSULN PEN SUBCUT ×4 (08:28→21:23)
--- NOTE | 2019-03-10 10:02 | OT.IP.TRT ---
Current Diagnoses Chronic obstructive pulmonary disease with (acute) exacerbation (03/07/19) Occupational Therapy Treatment Note M2 OT-IP Current Condition Start: 03/08/19 16:16 Freq: Status: Active Protocol: Document 03/08/19 14:45 CCC (Rec: 03/08/19 16:41 CCC [email or web address]) Occupational Therapy Current Condition Current Condition Evaluation Date 03/08/19 Treatment Diagnosis COPD exacerbation, CHF Diagnosis Onset Date 03/07/19 M3 OT- IP Subjective and Pain Start: 03/08/19 16:16 Freq: Status: Active Protocol: Document 03/10/19 10:02 PJM (Rec: 03/10/19 14:30 PJM [email or web address]) OT- Subjective Occupational Therapy Visit Type Type Treatment Note Visit Start Time 09:37 Visit Stop Time 10:02 Total Visit Minutes 25 Occupational Therapy Visit Comments Patient Comments Can we do a shower tomorrow morning? Patient/Caregiver Goals to get stronger and go to alcohol rehab program OT Pain Assessment Pain When Pain Assessed After Treatment Pain Present Pain Present Denied Pain M4 OT- IP ADL's Start: 03/08/19 16:16 Freq: Status: Active Protocol: Document 03/10/19 10:02 PJM (Rec: 03/10/19 14:28 PJM [email or web address]) OT [id number] General Evaluation Self-Feeding Ability Independent OT ADL-Grooming General Evaluation Grooming Ability Standby Assistance Areas Needing Assistance Retrieving/Set-up of Grooming Items Comments OT Grooming Comments pt completed seated grooming prior to therapist's arrival with SBA after set up per SEARCH ENGINE OPTIMIZATION SPECIALIST in chair OT ADL-Oral Care General Eval Oral Care Ability Standby Assistance Areas of Assistance Retrieving/Set-Up of Items Comments Oral Care Comments pt completed seated grooming prior to therapist's arrival with SBA after set up per SEARCH ENGINE OPTIMIZATION SPECIALIST in chair OT ADL-Dressing General Eval Lower Body Dressing Ability Minimal Assistance Areas Needing Assistance Underpants/Brief Socks Assistive Devices Dressing Assistive Devices Long Handled Shoe Horn Sock Aid Comments OT Dressing Comments Pt needs min assist to get clean brief over feet with ultrasound tech due to BUE tremors. Pt needs min assist for details of sock aid use. Pt has potential to be indep with lower body dressing with adaptive equipt with further practice. OT ADL-Toileting Comments OT Toileting Comments did not occur this session OT ADL-Bathing Bathing Type Bathing Type Shower Comments OT Bathing Comments pt agreed to shower tomorrow 03/11/19 at 0900 with OT for education re: energy . M6 OT- IP Functional Cognition Start: 03/08/19 16:16 Freq: Status: Active Protocol: Document 03/08/19 14:45 [facility] (Rec: 03/08/19 16:41 [facility] [email or web address]) Cognitive Factors Limiting Selfcare Function Cognitive Ability Level of Alertness Alert Patient Orientation Name Age Birthday Month Date Year Day of Week Place Situation Attention Span Ability Capable of Focused Attention Capable of Sustained Attention Ability to Follow Commands Able to Follow Multi-Step Commands Memory Description No Deficits Noted Safety Awareness Underestimates Need for Assistance Cognitive Comments Cognitive Assessment Comments Mild impulsivity otherwise appears intact. OT- Vision and Hearing OT- Hearing Assessment OT- Hearing Assessment WFL OT- Vision Assessment Visual Acuity Glasses For Reading M7 OT- IP Mobility and Balance Start: 03/08/19 16:16 Freq: Status: Active Protocol: Document 03/10/19 10:02 [facility]ARETT (Rec: 03/10/19 14:28 [facility] [email or web address]) OT- Bed Mobility Assessment Rolling Type of Rolling Roll to Right Level of Assistance Standby Assistance 1 Person Assistance Head of Bed Elevated Bedrails Supine to Sit Supine to Sit Assist Standby Assistance 1 Person Assistance Head of Bed Elevated Bedrails Sit to Supine Sit to Supine Assist Standby Assistance 1 Person Assistance Head of Bed Elevated Bedrails Scooting Scooting to Edge of Bed Standby Assistance OT-Transfer Assessment Comments Mobility Comments Pt normally sleeps in recliner . See P.T. notes for details re: ambulation status. OT- Gait Assessment Comments Gait Ability Comments see P.T. notes OT- Balance Assessment Sitting Balance and Reactions Static Sitting Balance Ability Good Dynamic Sitting Balance Ability Fair Standing Balance and Reactions Static Standing Balance Ability Good Dynamic Standing Balance Ability Fair Comments Other Balance Tests/Deviations/Treatment pt had loss of balance to L in : chair when attempting to don sock without sock aid. M M9 OT- IP Assessment and Plan Start: 03/08/19 16:16 Freq: Status: Active Protocol: Document 03/10/19 10:02 [facility]out (Rec: 03/10/19 14:28 [facility] [id number]) OT Summary Assessment and Plan Potential Rehabilitation Potential Good Summary Assessment Summary Pt making steady daily progress with good effort and participation. Pt continues have decreased activity tolerance with intermittent rest breaks required. Provided education re: pursed lip breathing and pacing. O2 sats 90-92 on room air during self care tasks today. Per case coordinator pt would like to go to inpt alcohol tx program and needs to completely independent with self care to attend one. Pt would benefit from rehab at SNF prior to in pt alcohol rehab program to increase indep/endurance/safety in all self care and functional mobility. Pt would also like to work on IADLS such as meal prep, light search engine optimization specialist so he can be more active in home setting. Will continue OT plan of care here. Goals Grooming Goal Independent Dressing Goal Independent Toileting Goal Independent Bathing Goal Standby Assistance Toilet Transfer Goal Independent Shower Transfer Goal Standby Assistance OT-Other Goals Goals completed with FWW. Days to Meet Goals 6 Frequency of Treatment Frequency Of Treatment Once a Day Treatment Plan OT Treatment Plan ADL Training Functional Mobility Patient/Family Education Discharge Planning Discharge Recommendations OT Discharge Recommendations SNF Rehab Other Discharge Recommendations then in pt alcohol rehab program Home Equipment Needs tub seat, grab bars, toilet paper aid ultrasound tech, sock aid, long shoe horn and bath sponge provided
--- NOTE | 2019-03-10 10:47 | DIET.PN ---
Referred for nutrition consult r/t chronic ETOH. Usual intake: 1.5 gal whiskey/week. Concern of withdrawal- CIWA scores have been 2-4 with two peaks of 7 and 9. Eating 100% meals. Dx: SOB, CAD, Hx: chronic ETOH, DM Diet: CCD med, heart healthy Meds/supplements: MVI, folic acid, thiamin per CIWA protocol Lasix, prednisone, insulin- Novolog pen, 30 unit BID, Lantus pen 80unitis BID Cbgs: 215, 258 Range this admit, mostly in 200's w/highest 461 Assessment: Good PO intake. Bgs elevated likely r/t steroids; diet appears appropriate. High risk for micronutrient deficiencies r/t chronic, excessive ETOH intake Intervention: None at this time Will follow progress
--- NOTE | 2019-03-10 11:46 | CM.DPC ---
DCP Cont: Received a call from Christina at the [facility] stating that this patient is eligible for VA benefits. But, for inpatient or outpatient alcohol treatment he would have to travel to the [facility] in [place] for this. I informed her of the hardship that may propose as we are a long way from [place]. Christina then stated the patient would need to enroll in the [facility] Choice Program so they can authorize him to use a treatment facility closer to where he lives. Audrey Acuna, Care Utilization Review Coordinator
--- NOTE | 2019-03-10 11:50 | PT.IPTN ---
Current Diagnoses Chronic obstructive pulmonary disease with (acute) exacerbation (03/07/19) Physical Therapy Treatment Note M2 PT-IP Current Condition Start: 03/07/19 12:32 Freq: NEEDED Status: Active Protocol: Document 03/08/19 10:24 AB (Rec: 03/08/19 13:18 AB [id number]) Physical Therapy Current Condition Current Condition Evaluation Date 03/08/19 Treatment Diagnosis COPD exacerbation; CHF; difficulty in walking Onset Date 03/07/19 Precautions Other Precautions O2 sat M3 PT-IP Subjective Start: 03/07/19 12:32 Freq: NEEDED Status: Active Protocol: Document 03/10/19 09:20 HH (Rec: 03/10/19 11:50 HH [email or web address]) Subjective Physical Therapy Visit Type Type Treatment Note Visit Start Time 09:20 Visit Stop Time 09:40 Total Visit Minutes 20 Number of BALE STACKER Visits 0 Physical Therapy Visit Comments Patient Comments Pt is agreeable to mobilize with PT Therapy Pain Assessment Pain When Pain Assessed During Mobility Pain Present Pain Present Denied Pain M4 PT-IP Mobility and Gait Start: 03/07/19 12:32 Freq: NEEDED Status: Active Protocol: Document 03/10/19 09:20 HH (Rec: 03/10/19 11:50 HH [email or web address]) PT-Bed Mobility Assessment Supine to Sit Supine to Sit Standby Assistance Bedrails Sit to Supine Sit to Supine Standby Assistance Bedrails Scooting Scooting to Edge of Bed Standby Assistance Scooting Up and Down in Bed Standby Assistance PT-Transfer Assessment Sit to and From Stand Sit to and from Stand Contact Guard Assistance Equipment Transfer Assistive Device Gait Belt Front Wheeled Walker Orthotic/Prosthetic Devices or Brace: No Transfers Transfer Destination Bed Chair Transfer Technique Stand Step Pivot Transfer Ability Level of Assist Contact Guard Assistance 1 Person Assistance Comments Mobility Comments CGA with transfers and SBA for bed mobility. Able to stand unsupported to comb his hair. Gait Assessment Gait Gait Assistance Required: Contact Guard Assist 1 Person Assist Distance (Feet) 150 Able to Maintain Weight Bearing Status Yes During Gait Assistive Devices Assistive Device Gait Belt Front Wheeled Walker Orthotic/Prosthetic Devices or Brace: No Gait Deviations General Gait Pattern Antalgic Decreased Stride Length Decreased Feet Clearance Factors Limiting Gait Function Factors Limiting Gait Function Decreased Activity Tolerance Decreased Sensation Poor Balance Poor Safety Awareness Comments Gait Comments gait trainin in hallways with FWW. Pt took a 30 secs standing break to catch his breath. Educated pt to deep breath whenever he feels SOB,. Stair Climbing Assessment Evaluation Level of Assist On Stairs Contact Guard Assistance Devices Stair Climbing Assistive Devices Right Railing Technique/Endurance Stair Climbing Direction Ascend and Descend Stair Climbing Technique Step to Step Number of Steps Climbed 3 Query Text: Stair Climbing Set # Repetitions (reps) 1 Comments Stair Climbing Comments pt used side step to climb steps same as PLOF. M5 PT-IP Objective Assessments Start: 03/07/19 12:32 Freq: NEEDED Status: Active Protocol: Document 03/08/19 10:24 AB (Rec: 03/08/19 13:18 AB [id number]) Orientation Orientation/Cognition Level of Alertness Alert Orientation Name Age Place Situation Gross Range of Motion Upper Extremity ROM Assessment Within Functional Limits Strength Lower Extremity Strength Assessment Bilaterally Impaired Comments Strength Comments RLE: 3+/5 LLE 4-/5 Coordination Assessment Gross Coordination Gross Coordination WNL Sensation Assessment Sensation Gross Sensation WNL Muscle Tone Muscle Tone WNL Yes M6 PT-IP Treatment Start: 03/07/19 12:32 Freq: NEEDED Status: Active Protocol: Document 03/10/19 09:20 HH (Rec: 03/10/19 11:50 [email or web address]) Physical Therapy Treatment Exercises Exercises Ankle Pumps Gluteal Sets Straight Leg Raises Education Education Provided Safety Other Treatments Other Treatment Performed Education for smoking cessation. deep breathing education during exertion M7 PT-IP Assessment and Plan Start: 03/07/19 12:32 Freq: NEEDED Status: Active Protocol: Document 03/10/19 09:20 HH (Rec: 03/10/19 11:50 [email or web address]) PT Summary Assessment and Plan Potential Rehabilitation Potential Good Summary Impairments Pain ROM Strength Balance Coordination Sensation Tone Cognition Bed Mobility Transfers Gait Activity Tolerance Assessment Summary Pt progressing well with gait and functional mobility, improving endurance. 02 sats 90-95% on RA with activity. Pt seemed to stay at 90% during exertion but able to recover to 93-95% within 10-20 seconds with deep breathing exercise. Pt agreed and anticipated to participate alcohol rehab in the future. Pt will benefit from SNF therapy to improve/ optimize mobility so he could mobilize in community safely and participate alcohol rehab. Goals Bed Mobility Goal Standby Assistance Transfer Goal Standby Assistance Front Wheeled Walker Four Wheeled Walker Gait Goal Standby Assistance Front Wheel Walker Four Wheel Walker Gait Distance 150 Other Goals up/down 2 steps with R rail ascending SBA Days to Meet Goals 10 Frequency of Treatment Frequency Of Treatment Twice a Day Treatment Plan Physical Therapy Treatment Plan Bed Mobility Training Transfer Training Gait Training Therapeutic Exercise Balance Retraining Discharge Planning Hot or Cold Pack Neuromuscular Re-ed Coordination Retraining Manual Therapy Other Recommendations and Next Treatment ambulation Focus gait training deep breathing Recommendations To Nursing Amount of Assist Needed 1 Person Assist Discharge Recommendations PT Discharge Recommendations SNF Rehab Other Discharge Recommendations Pt will benefit from SNF therapy to improve/ optimize mobility so he could mobilize in community safely and participate alcohol rehab.
--- NOTE | 2019-03-10 12:58 | CM.DPNOTE ---
Reviewed chart this morning. Met w/pt to review DCP. He explained he wants to go to SNF rehab before CD treatment, prefers [facility], and then hopes to attend either outpt vs inpt CD treatment. Pt further explains he has [employer] because he doesn't drive much and [employer] allows him to use his VA coverage for Non-VA providers. PCP is Lakia Londono. Pt is not established at the [place] clinic in [facility]. Placed call to April at [facility], reviewed referral. April plans to review, this TRAVEL CLERK awaiting f/u. Later learned from ONOFRE Ventura, that the VA benefit line had returned her call and they indicated pt is not service connected and does not have [employer] Choice benefits. Pt would need to get himself to the [facility] facility in order to access MH/ CD services. Pt will likely need to use his Medicare benefits for CD treatment. Following closely. LYN Nieves
--- NOTE | 2019-03-10 13:35 | PT.IPTN ---
Current Diagnoses Chronic obstructive pulmonary disease with (acute) exacerbation (03/07/19) Physical Therapy Treatment Note M2 PT-IP Current Condition Start: 03/07/19 12:32 Freq: NEEDED Status: Active Protocol: Document 03/08/19 10:24 AB (Rec: 03/08/19 13:18 AB [id number]) Physical Therapy Current Condition Current Condition Evaluation Date 03/08/19 Treatment Diagnosis COPD exacerbation; CHF; difficulty in walking Onset Date 03/07/19 Precautions Other Precautions O2 sat M3 PT-IP Subjective Start: 03/07/19 12:32 Freq: NEEDED Status: Active Protocol: Document 03/10/19 13:35 AB (Rec: 03/10/19 15:01 AB [email or web address]) Subjective Physical Therapy Visit Type Type Treatment Note Visit Start Time 13:35 Visit Stop Time 13:58 Total Visit Minutes 16 Number of MOLD STAMPER AND REPAIRER Visits 0 Physical Therapy Visit Comments Patient Comments pt agreeable to do PT M4 PT-IP Mobility and Gait Start: 03/07/19 12:32 Freq: NEEDED Status: Active Protocol: Document 03/10/19 13:35 AB (Rec: 03/10/19 15:01 AB [email or web address]) PT-Bed Mobility Assessment Supine to Sit Supine to Sit Standby Assistance Head of Bed Elevated Bedrails Sit to Supine Sit to Supine Standby Assistance Head of Bed Elevated PT-Transfer Assessment Sit to and From Stand Sit to and from Stand Standby Assistance Equipment Transfer Assistive Device Gait Belt Front Wheeled Walker Orthotic/Prosthetic Devices or Brace: No Transfers Transfer Destination Toilet Transfer Technique pt ambulated using FWW Transfer Ability Level of Assist Standby Assistance Comments Mobility Comments pt ambulated to the toilet using FWW SBA and ambulated out towards the sink SBA using FWW. pt was able to maintain standing SBA while completing handwashing. pt agreed to do more ambulation. Gait Assessment Gait Gait Assistance Required: Contact Guard Assist Minimum Assistance Distance (Feet) 75 Able to Maintain Weight Bearing Status Yes During Gait Assistive Devices Assistive Device Gait Belt 4 Wheeled Walker Gait Deviations General Gait Pattern Decreased Stride Length Decreased Feet Clearance Wide Based Gait Factors Limiting Gait Function Factors Limiting Gait Function Decreased Activity Tolerance Decreased Strength Poor Balance Poor Safety Awareness Comments Gait Comments Assessed ambulation using 4WW. pt was able to ambulate using 4WW CGA to min A 75 + 30 +50 ft. pt required seated rest breaks. O2 sat maintained: 90 to 96%. pt with (+) LOB and R knee slight buckling requiring min A and cues. pt stated that his legs feels weak. M5 PT-IP Objective Assessments Start: 03/07/19 12:32 Freq: NEEDED Status: Active Protocol: Document 03/08/19 10:24 AB (Rec: 03/08/19 13:18 AB [id number]) Orientation Orientation/Cognition Level of Alertness Alert Orientation Name Age Place Situation Gross Range of Motion Upper Extremity ROM Assessment Within Functional Limits Strength Lower Extremity Strength Assessment Bilaterally Impaired Comments Strength Comments RLE: 3+/5 LLE 4-/5 Coordination Assessment Gross Coordination Gross Coordination WNL Sensation Assessment Sensation Gross Sensation WNL Muscle Tone Muscle Tone WNL Yes M6 PT-IP Treatment Start: 03/07/19 12:32 Freq: NEEDED Status: Active Protocol: Document 03/10/19 09:20 HH (Rec: 03/10/19 11:50 HH [email or web address]) Physical Therapy Treatment Exercises Exercises Ankle Pumps Gluteal Sets Straight Leg Raises Education Education Provided Safety Other Treatments Other Treatment Performed Education for smoking cessation. deep breathing education during exertion M7 PT-IP Assessment and Plan Start: 03/07/19 12:32 Freq: NEEDED Status: Active Protocol: Document 03/10/19 13:35 AB (Rec: 03/10/19 15:01 AB [email or web address]) PT Summary Assessment and Plan Potential Rehabilitation Potential Good Summary Impairments Pain ROM Strength Balance Coordination Bed Mobility Transfers Gait Activity Tolerance Progress Towards Goals Slow Progress due to Medical Issues Slow Progress due to Activity Tolerance Assessment Summary pt progressing with mobility but continues to require CGA to min A and cues for mobility and has decrease activity tolerance. pt will require SNF rehab. Goals Bed Mobility Goal Standby Assistance Transfer Goal Standby Assistance Front Wheeled Walker Four Wheeled Walker Gait Goal Standby Assistance Front Wheel Walker Four Wheel Walker Gait Distance 150 Other Goals up/down 2 steps with R rail ascending SBA Days to Meet Goals 10 Frequency of Treatment Frequency Of Treatment Twice a Day Treatment Plan Physical Therapy Treatment Plan Bed Mobility Training Transfer Training Gait Training Therapeutic Exercise Balance Retraining Discharge Planning Hot or Cold Pack Neuromuscular Re-ed Coordination Retraining Manual Therapy Other Recommendations and Next Treatment ambulation Focus Recommendations To Nursing Amount of Assist Needed 1 Person Assist Discharge Recommendations PT Discharge Recommendations SNF Rehab
--- NOTE | 2019-03-10 16:04 | PM.PN.1 ---
Subjective Date Patient Seen: 03/10/19 Interval history: Carlos aRndall is a 63-year-old male with past medical history significant for coronary artery disease status post coronary stents x2, hypertension, hyperlipidemia, diabetes mellitus type 2, insulin using, poorly controlled, chronic kidney disease stage 2, significant alcoholism without history of withdrawal who presented for progressive worsening shortness of breath. The patient is resting in bed comfortably. The patient continues to report his breathing has improved and his cough has almost resolved entirely. His and son are present in room and discussed his liver disease, alcoholism, smoking, coronary artery disease, lung disease, and underlying psychiatric disease in detail and provided recommendations going forward. He continues to thank me for explaining everything to him and motivating him to make radical lifestyle changes in regards to smoking and alcohol. He would like to go to intensive inpatient treatment for alcoholism after physical rehabilitation at a group home facility. He denies headache, abdominal pain, nausea, vomiting, fever, chills, dysuria, diarrhea or constipation. He is voiding and eliminating without difficulty. He is up minimally due to generalized weakness with assistance and PT/OT. Exam Vital Signs (past 8 hours): - 03/10/19 08:36 03/10/19 11:30 03/10/19 14:00 Temperature 98.1 F Pulse Rate 91 H 66 75 Respiratory Rate 16 18 18 Blood Pressure 142/78 H Pulse Oximetry 93 91 94 03/10/19 15:44 Temperature 98.1 F Pulse Rate 81 Respiratory Rate 20 Blood Pressure 142/71 H Pulse Oximetry 93 Fraction of Inspired Oxygen 21 Oxygen Delivery Method Room Air Oxygen Flow Rate 0 Narrative Exam Narrative: General: Older gentleman lying in bed comfortably and in no acute distress, well-developed, well-nourished, appropriately interactive. HEENT: Normocephalic, atraumatic. External ears without defect. Pupils equal, round, and reactive to light. Anicteric sclerae, moist conjunctivae, and no lid lag. Neck: Supple with full range of motion. No jugular venous distension. No lymphadenopathy or thyromegaly. Cardiovascular: Regular rate and rhythm without murmurs, rubs, or gallops appreciated. Pulmonary: Clear to auscultation bilaterally without wheeze, crackles or rhonchi. Normal respiratory effort with no use of accessory muscles. Abdomen: Soft but protuberant, mild tympany but bowel sounds present, nontender. Several firm areas of skin on right lower quadrant of abdomen where patient injects insulin repeatedly. Due to body habitus was unable to appreciate hepatosplenomegaly or masses. Extremities: No clubbing, cyanosis, or edema. Abrasion with eschar in place on right lower extremity, does not appear infected and healing well. Mild stasis dermatitis. Skin: Normal temperature, turgor, and texture; no rash, ulcers, or subcutaneous nodules appreciated. Stigmata of liver disease including pulmonary erythema and spider angiomata of chest. No caput medusae, asterixis, or jaundice. Neurological: Cranial nerves grossly intact. Psychiatric: Depressed mood and normal affect. Alert and oriented to person, place, and time. Objective Labs Result Diagrams: 03/09/19 05:50 03/10/19 06:39 Labs: Laboratory Results - last 24 hr 03/10/19 06:39 Sodium 135 L Potassium 4.4 Chloride 94 L Carbon Dioxide 29 BUN 29 H Creatinine 0.70 Estimated GFR > 60.0 BUN/Creatinine Ratio 41.4 H Glucose 276 H Calcium 8.9 Magnesium 1.6 Total Bilirubin 0.6 AST 69 H ALT 63 Alkaline Phosphatase 74 Total Protein 7.7 Albumin 4.3 Globulin 3.4 Albumin/Globulin Ratio 1.3 Assessment & Plan Assessment & Plan narrative: Carlos Randall is a 63-year-old male with past medical history significant for coronary artery disease status post coronary stents x2, hypertension, hyperlipidemia, diabetes mellitus type 2, insulin using, poorly controlled, chronic kidney disease stage 2, significant alcoholism without history of withdrawal who presented for progressive worsening shortness of breath. 1. Acute COPD exacerbation with acute hypoxemic respiratory failure, present on admission. Acute hypoxemic respiratory failure resolved and COPD exacerbation resolving. -Patient presented with worsening shortness of breath and hypoxemia with oxygen saturation in the mid 80's on room air. Not on oxygen at home. -Received methylprednisolone 125 mg IV x1. Continue to titrate off glucocorticoids. Stopped IV glucocorticoids today (received methylprednisolone 40 mg IV x1 today) and will plan to start prednisone 40 mg tomorrow to complete short burst. -Received azithromycin 500 mg in ED and will continue 250 mg daily for anti-inflammatory benefits. -Respiratory viral PCR which was negative. -Ordered supplemental oxygen as needed. Oxygen saturation goal 88-92%. No longer on oxygen. -Consulted respiratory therapy for evaluation and treatment. Continue duo nebs every 4 hours while awake and albuterol nebs every 2 hours as needed. Continue QVAR 1 puff twice daily. -Recommend international marketing executive evaluation and treatment in the future. 2. Bilateral pleural effusions, likely acute but unclear, present on admission. Resolved. -Likely secondary to liver cirrhosis versus other etiology. CHF ruled out. -CTA demonstrated moderate bilateral pleural effusions. Unclear etiology. Possibly secondary to CHF versus liver cirrhosis. -Echocardiogram demonstrated normal LV with preserved function and EF of 60-65%, borderline dilated RV with normal function, normal LV diastolic function, RVSP 29, left atrium moderately dilated, right atrium is mildly dilated, there is mild mitral regurg, no other significant valvular heart disease, and ascending aorta is mildly enlarged. -Liver ultrasound demonstrated diffuse increased echogenicity of the liver is compatible with cirrhosis and possible superimposed hepatic steatosis may be present, no definite liver lesions, and no ascites. 3. Acute costochondritis with chronic stable angina, present on admission. Resolving. -Chest pain reproducible with palpation. Patient has dry bronchospastic cough paroxysms causing chest wall pain. -Continue Imdur 60 mg daily. Patient has multiple cardiac risk factors including: CAD, hypertension, hyperlipidemia, diabetes mellitus type 2, insulin using and uncontrolled, current smoker, gender, age, obstructive sleep apnea not on CPAP. However, trop negative x 2, EKG negative and he received sublingual nitroglycerin without improvement in chest pain and mild improvement with morphine. -Ordered tramadol 50 mg 3 times daily as needed for severe pain. 4. Alcohol abuse, chronic, present on admission. Stable. -Patient denies any history of alcohol withdrawal, DTs or alcohol withdrawal seizure. -Patient readily admits to drinking 2.5 gal of whiskey per week. Patient has not gone prolonged amount of time without alcohol. His last drink was the evening of 03/06. -Continue CIWA protocol. Most recent CIWA score 4. -Continue multivitamin, folate, and thiamine supplementation. Replete electrolytes (K and Mg) as needed. -Patient would like to go to inpatient intensive rehabilitation for alcoholism. 5. Coronary artery disease status post stenting x2, chronic, present on admission. Presume stable. -Continue atorvastatin 40 mg daily at bedtime, Imdur 60 mg daily, furosemide 20 mg IV twice daily as above, lisinopril 2.5 mg daily, and metoprolol tartrate 25 mg twice daily. -Patient is not on aspirin possibly due to alcoholism and potential underlying liver disease? -The patient reports he has not seen a nipple machine operator in least 5 years. Recommend outpatient cardiology follow-up. 6. Hypertension, chronic, present on admission. Stable. -Continue Imdur 60 mg daily, furosemide 20 mg IV twice daily as above, lisinopril 2.5 mg daily, and metoprolol tartrate 25 mg twice daily. 7. Hyperlipidemia, chronic, present on admission. Stable. -Continue atorvastatin 40 mg daily at bedtime. 8. Diabetes mellitus type 2, insulin using, present on admission. Stable. -Hemoglobin A1c 8.4% 03/20. -Continue Lantus 80 units twice daily. -Continue ACHS blood glucose checks and high-dose correctional scale insulin. -Continue heart healthy/carbohydrate consistent diet. -Continue gabapentin 300 mg twice daily. 9. CKD stage 2 ruled out. -Patient reports chronic stage 2 kidney disease in the past. GFR > 60, creatinine clearance 66 and creatinine 0.70 all within normal limits. -Continue to avoid nephrotoxic agents. 10. Hypothyroidism, chronic, present on admission. Stable. -Continue levothyroxine 50 mcg daily. 11. Depression, chronic, present on admission. Stable. -Continue citalopram 40 mg daily. 12. Tobacco dependence, chronic, present on admission. Stable. -Ordered nicotine patch 21 mg daily as needed for nicotine withdrawal. 13. Essential tremor, chronic, present on admission. Stable. -Not medically treated. Patient drinks alcohol daily which likely is some form of self-medication. 14. Obstructive sleep apnea not on CPAP, chronic, present on admission. Stable. -Encouraged compliance with CPAP and discussed effects of untreated KATI. -Ordered CPAP per RT protocol. Disposition: Likely to discharge to group home facility in 1-2 days with improvement in COPD exacerbation and will plan to participate in intensive inpatient rehabilitation once released from group home facility. Quality VTE Deep Vein Thrombosis/Pulmonary Embolism Present on Admission: No
[2019-03-10] MEDS: AZITHROMYCIN 250 MG in DEXTROSE 5% IN WATER 250 ML IV (17:13)
[2019-03-10] MEDS: MAG HYDROX/ALUM/SIMETH 30 ML UDC PO (17:18)
[2019-03-10] MEDS: TRAMADOL 50 MG TABLET PO (17:18)
[2019-03-10] MEDS: ATORVASTATIN 20 MG TABLET 40 MG PO (21:13)
[2019-03-11] VITALS (12 sets, daily range): BP systolic 120–182; BP diastolic 73–99; PULSE 55–82; RESP 14–22; TEMP 36.1–36.7; O2SAT 89–97
[2019-03-11] MEDS: LORazepam 1 MG TABLET 2 MG PO (01:49)
--- NOTE | 2019-03-11 02:17 | PC.NURSE ---
Pt stated that he felt he was in active alcohol withdrawal and presented with a CIWA of 8. 2 mg Ativan given po. Pt states he is restless and feels anxious, he is unable to fall asleep and he had slight tremors and perspiration on his brow and b
--- NOTE | 2019-03-11 02:18 | PC.NURSE ---
Pt stated that he felt he was in EtOH withdrawal and presented with slight tremors and perspiration on his brow and palms, restlessness and anxiety and insomnia; CIWA = 8. Gave 2 mg Ativan po with good results.
--- NOTE | 2019-03-11 04:13 | PC.NURSE ---
Pt snoring and desat to 83, refused CPAP but wore NC 2L to stay > 92%.
[2019-03-11] MEDS: PANTOPRAZOLE 20 MG TABLET PO (05:47)
[2019-03-11] MEDS: LEVOTHYROXINE 50 MCG TABLET PO (05:47)
[2019-03-11 07:04] LABS: Alanine Aminotransferase 79 IU/L (21-72); Albumin 4.2 g/dL (3.5-5.0); Albumin Globulin Ratio 1.3 (1.0-2.8); Alkaline Phosphatase 71 U/L (38-126); Aspartate Aminotransferase 89 IU/L (17-59); BUN Creatinine Ratio 33.8 (6-22); Bilirubin Total 0.4 mg/dL (0.2-1.3); Blood Urea Nitrogen 27 mg/dL (9-20); Calcium 9.4 mg/dL (8.4-10.2); Carbon Dioxide 32 mmol/L (22-32); Chloride 98 mmol/L (98-107); Estimated Glomerular Filt Rate > 60.0 mL/min (>60); Globulin 3.2 g/dL (1.7-4.1); Glucose 60 mg/dL (80-110); HEMOLYSIS < 15 (0-50); Potassium 3.5 mmol/L (3.4-5.1); Sodium 138 mmol/L (137-145); Total Protein 7.4 g/dL (6.3-8.2)
[2019-03-11] MEDS: FUROSEMIDE 40 MG TABLET 20 MG PO (08:00)
[2019-03-11] MEDS: ALBUTEROL/IPRATROPIUM 3 ML AMPUL INH ×3 (08:03→19:09)
[2019-03-11] MEDS: BECLOMETHASONE 40 MCG INH 10.6 GM 1 PUFF INH ×2 (08:03→19:09)
[2019-03-11] MEDS: CITALOPRAM 20 MG TABLET 40 MG PO (08:12)
[2019-03-11] MEDS: NICOTINE 21 MG PATCH TOP (08:12)
[2019-03-11] MEDS: MULTIVITAMIN 1 TABLET 1 TAB PO (08:13)
[2019-03-11] MEDS: POTASSIUM CHLORIDE 20 MEQ TAB PO (08:13)
[2019-03-11] MEDS: METOPROLOL IR 25 MG TABLET PO ×2 (08:13→21:11)
[2019-03-11] MEDS: LISINOPRIL 5 MG TABLET 2.5 MG PO (08:13)
[2019-03-11] MEDS: THIAMINE 100 MG TABLET PO (08:21)
[2019-03-11] MEDS: MAGNESIUM CHLORIDE 64 MG TABLET 128 MG PO (08:21)
[2019-03-11] MEDS: ISOSORBIDE MONONITRATE ER 60 MG PO (08:22)
[2019-03-11] MEDS: INSULIN ASPART 100 UNIT/ML INSULN PEN 30 UNIT SUBCUT ×2 (09:41→18:20)
[2019-03-11] MEDS: FOLIC ACID 1 MG TABLET PO (09:45)
[2019-03-11] MEDS: SODIUM CHLORIDE 0.9% FLUSH 10 ML IV ×2 (09:45→21:12)
[2019-03-11] MEDS: GABAPENTIN 300 MG CAPSULE PO ×2 (09:45→21:08)
[2019-03-11] MEDS: INSULIN GLARGINE 100 UNIT/ML 10ML VIAL 70 UNIT SUBCUT ×2 (09:47→21:10)
[2019-03-11] MEDS: HEPARIN 5,000 UNIT/ML VIAL 5000 UNIT SUBCUT ×2 (09:49→21:09)
[2019-03-11] MEDS: predniSONE 20 MG TABLET 40 MG PO (09:50)
--- NOTE | 2019-03-11 10:45 | PM.PN.1 ---
Subjective Date Patient Seen: 03/11/19 Time Patient Seen: 10:46 Interval history: He is seen in his room today to follow-up the COPD exacerbation, essential tremor, alcohol withdrawal, coronary artery disease and hypertension. He also has diabetes mellitus type 2 and this morning, after receiving 2 mg of Ativan last night, his blood sugars dropped into the 40s and 50s with obvious effect on his level of consciousness. This was corrected with oral interventions and he seems to be doing better when I see him today. His blood sugar before this, last night was 227. He is on substantial doses of insulin. His AST has risen from 69 up to 89 and ALT from 63-79 this morning. The BMP is normal and the CBC is normal. His blood pressure was 152/99. He is afebrile. Exam Vital Signs (past 8 hours): - 03/11/19 06:15 03/11/19 08:08 03/11/19 08:13 Temperature 97.9 F 97.8 F Pulse Rate 66 67 69 Respiratory Rate 20 14 20 Blood Pressure 152/99 H 182/99 H Pulse Oximetry 94 94 97 Fraction of Inspired Oxygen 21 Oxygen Delivery Method Nasal Cannula Oxygen Flow Rate 1 Narrative Exam Narrative: He is alert and oriented x3. He is very focused on eating his breakfast. There is no obvious DTs or confusion today. Heart is regular rate and rhythm without murmur. Lungs are notable for heavy wheezes bilaterally. Abdomen is distended, somewhat tight, nontender, no organomegaly. Extremities have no ankle edema. Objective Labs Result Diagrams: 03/09/19 05:50 03/11/19 06:33 Labs: Laboratory Results - last 24 hr 03/11/19 06:33 Sodium 138 Potassium 3.5 Chloride 98 Carbon Dioxide 32 BUN 27 H Creatinine 0.80 Estimated GFR > 60.0 BUN/Creatinine Ratio 33.8 H Glucose 60 L D Calcium 9.4 Total Bilirubin 0.4 AST 89 H ALT 79 H Alkaline Phosphatase 71 Total Protein 7.4 Albumin 4.2 Globulin 3.2 Albumin/Globulin Ratio 1.3 Assessment & Plan Assessment & Plan narrative: 1. Acute COPD exacerbation with acute hypoxemic respiratory failure, present on admission. Acute hypoxemic respiratory failure resolved and COPD exacerbation resolving. -Patient presented with worsening shortness of breath and hypoxemia with oxygen saturation in the mid 80's on room air. Not on oxygen at home. -Received methylprednisolone initially, now on prednisone 40 mg daily. -Received azithromycin 500 mg in ED and will continue 250 mg daily for anti-inflammatory benefits. -Respiratory viral PCR was negative. -Was begun on supplemental oxygen as needed. Oxygen saturation goal 88-92%. No longer needing oxygen. -Consulted respiratory therapy for evaluation and treatment. Continue duo nebs every 4 hours while awake and albuterol nebs every 2 hours as needed. Continue QVAR 1 puff twice daily. -Recommend wildlife policy professional evaluation and treatment in the future. 2. Bilateral pleural effusions, likely acute but unclear, present on admission. Resolved. -Likely secondary to liver cirrhosis versus other etiology. CHF ruled out. -CTA demonstrated moderate bilateral pleural effusions. Unclear etiology. Possibly secondary to CHF versus liver cirrhosis. -Echocardiogram demonstrated normal LV with preserved function and EF of 60-65%, borderline dilated RV with normal function, normal LV diastolic function, RVSP 29, left atrium moderately dilated, right atrium is mildly dilated, there is mild mitral regurg, no other significant valvular heart disease, and ascending aorta is mildly enlarged. -Liver ultrasound demonstrated diffuse increased echogenicity of the liver which is compatible with cirrhosis and possible superimposed hepatic steatosis may be present, no definite liver lesions, and no ascites. 3. Acute costochondritis with chronic stable angina, present on admission. Resolving. -Chest pain reproducible with palpation. Patient has dry bronchospastic cough paroxysms causing chest wall pain. -Continue Imdur 60 mg daily. Patient has multiple cardiac risk factors including: CAD, hypertension, hyperlipidemia, diabetes mellitus type 2, insulin using and uncontrolled, current smoker, gender, age, obstructive sleep apnea not on CPAP. However, trop negative x 2, EKG negative and he received sublingual nitroglycerin without improvement in chest pain and mild improvement with morphine. -Continue on tramadol 50 mg 3 times daily as needed for severe pain. 4. Alcohol abuse, chronic, present on admission. Stable. -Patient denies any history of alcohol withdrawal, DTs or alcohol withdrawal seizure. -Patient readily admits to drinking 2.5 gal of whiskey per week. Patient has not gone prolonged amount of time without alcohol. His last drink was the evening of 03/06. -Continue CIWA protocol. Back off on Lorazepam dose to avoid oversedation. -Continue multivitamin, folate, and thiamine supplementation. Replete electrolytes (K and Mg) as needed. -Patient would like to go to inpatient intensive rehabilitation for alcoholism. 5. Coronary artery disease status post stenting x2, chronic, present on admission. -Continue atorvastatin 40 mg daily at bedtime, Imdur 60 mg daily, furosemide 20 mg IV twice daily as above, lisinopril 2.5 mg daily, and metoprolol tartrate 25 mg twice daily. -Patient is not on aspirin possibly due to alcoholism and potential underlying liver disease? -The patient reports he has not seen a boat laborer in least 5 years. Recommend outpatient cardiology follow-up. 6. Hypertension, chronic, present on admission. Stable. -Continue Imdur 60 mg daily, furosemide 20 mg IV twice daily as above, lisinopril 2.5 mg daily, and metoprolol tartrate 25 mg twice daily. 7. Hyperlipidemia, chronic, present on admission. Stable. -Continue atorvastatin 40 mg daily at bedtime. 8. Diabetes mellitus type 2, insulin using, present on admission. Stable. -Hemoglobin A1c 8.4% 03/20. -Continue Lantus and decrease to 70 units twice daily due to hypoglycemia this morning. -Continue [facility] blood glucose checks and high-dose correctional scale insulin. -Continue heart healthy/carbohydrate consistent diet. -Continue gabapentin 300 mg twice daily. 9. CKD stage 2 ruled out. -Patient reports chronic stage 2 kidney disease in the past. GFR > 60, creatinine clearance 66 and creatinine 0.70 all within normal limits. -Continue to avoid nephrotoxic agents. 10. Hypothyroidism, chronic, present on admission. Stable. -Continue levothyroxine 50 mcg daily. 11. Depression, chronic, present on admission. Stable. -Continue citalopram 40 mg daily. 12. Tobacco dependence, chronic, present on admission. Stable. -Continue nicotine patch 21 mg daily as needed for nicotine withdrawal. 13. Essential tremor, chronic, present on admission. Stable. -Not medically treated. Patient drinks alcohol daily which likely is some form of self-medication. -None visible today 14. Obstructive sleep apnea not on CPAP, chronic, present on admission. Stable. -Encouraged compliance with CPAP and discussed effects of untreated KATI. -Ordered CPAP per RT protocol. Disposition: Likely to discharge to group home facility in 1-2 days with improvement in COPD exacerbation and will plan to participate in intensive inpatient alcohol rehabilitation once released from group home facility. Quality VTE Deep Vein Thrombosis/Pulmonary Embolism Present on Admission: No
[2019-03-11] MEDS: DEXTROSE 50 % IN WATER 25 GM/50 ML SYRINGE IV (11:23)
--- NOTE | 2019-03-11 11:44 | PT.IPTN ---
Current Diagnoses Chronic obstructive pulmonary disease with (acute) exacerbation (03/07/19) Physical Therapy Treatment Note M2 PT-IP Current Condition Start: 03/07/19 12:32 Freq: NEEDED Status: Active Protocol: Document 03/08/19 10:24 AB (Rec: 03/08/19 13:18 AB [id number]) Physical Therapy Current Condition Current Condition Evaluation Date 03/08/19 Treatment Diagnosis COPD exacerbation; CHF; difficulty in walking Onset Date 03/07/19 Precautions Other Precautions O2 sat M3 PT-IP Subjective Start: 03/07/19 12:32 Freq: NEEDED Status: Active Protocol: Document 03/11/19 10:00 (Rec: 03/11/19 11:44 [email or web address]) Subjective Physical Therapy Visit Type Type Treatment Note Visit Start Time 10:00 Visit Stop Time 10:30 Total Visit Minutes 30 Notes Per RN, pt's glucose level went down to 47 early this morning but currently at 160s. He also had withdrawal episodes last night. Number of INVOICING SPECIALIST Visits 0 Physical Therapy Visit Comments Patient Comments I feel really tired today because of the withdrawal episode.But i would like to walk with you Therapy Pain Assessment Pain When Pain Assessed During Mobility Pain Present Pain Present Denied Pain M4 PT-IP Mobility and Gait Start: 03/07/19 12:32 Freq: NEEDED Status: Active Protocol: Document 03/11/19 10:00 HH (Rec: 03/11/19 11:44 [email or web address]) PT-Transfer Assessment Sit to and From Stand Sit to and from Stand Contact Guard Assistance Use of Upper Extremities Equipment Transfer Assistive Device Gait Belt 4 Wheeled Walker Orthotic/Prosthetic Devices or Brace: No Transfers Transfer Destination Bed Chair Toilet Transfer Technique Stand Step Pivot Transfer Ability Level of Assist Contact Guard Assistance Use of Upper Extremities Comments Mobility Comments Pt cont need CGA for sit to stand, cues to use hip hinge to gain momentum. Demonstrated pt to use wall for parking 4WW to increase stability. He somehow appears unsteady without support today especially during turns. Gait Assessment Gait Gait Assistance Required: Contact Guard Assist Distance (Feet) 160 Able to Maintain Weight Bearing Status Yes During Gait Assistive Devices Assistive Device Gait Belt 4 Wheeled Walker Orthotic/Prosthetic Devices or Brace: No Gait Deviations General Gait Pattern Decreased Stride Length Decreased Feet Clearance Flexed Trunk Wide Based Gait Factors Limiting Gait Function Factors Limiting Gait Function Decreased Activity Tolerance Decreased Strength Poor Balance Poor Safety Awareness Comments Gait Comments Amb with 4WW for 160 feet. Pt appears weaker today with decreased step length and less steady. Required CGA and took 3 breaks during gait training . Pt also showed increased trunk flexion and required cues to stand upright. M5 PT-IP Objective Assessments Start: 03/07/19 12:32 Freq: NEEDED Status: Active Protocol: Document 03/08/19 10:24 AB (Rec: 03/08/19 13:18 AB [id number]) Orientation Orientation/Cognition Level of Alertness Alert Orientation Name Age Place Situation Gross Range of Motion Upper Extremity ROM Assessment Within Functional Limits Strength Lower Extremity Strength Assessment Bilaterally Impaired Comments Strength Comments RLE: 3+/5 LLE 4-/5 Coordination Assessment Gross Coordination Gross Coordination WNL Sensation Assessment Sensation Gross Sensation WNL Muscle Tone Muscle Tone WNL Yes M6 PT-IP Treatment Start: 03/07/19 12:32 Freq: NEEDED Status: Active Protocol: Document 03/10/19 09:20 HH (Rec: 03/10/19 11:50 HH [email or web address]) Physical Therapy Treatment Exercises Exercises Ankle Pumps Gluteal Sets Straight Leg Raises Education Education Provided Safety Other Treatments Other Treatment Performed Education for smoking cessation. deep breathing education during exertion M7 PT-IP Assessment and Plan Start: 03/07/19 12:32 Freq: NEEDED Status: Active Protocol: Document 03/11/19 10:00 HH (Rec: 03/11/19 11:44 [email or web address]) PT Summary Assessment and Plan Potential Rehabilitation Potential Good Summary Impairments Pain ROM Strength Balance Coordination Bed Mobility Transfers Gait Activity Tolerance Progress Towards Goals Slow Progress due to Medical Issues Slow Progress due to Activity Tolerance Assessment Summary Pt appears less steady and weaker today possibly due to his withdrawal episode earlier . He did walk for further distance with 4WW but did require 3 rest break. His O2 maintain >90%. Goals Bed Mobility Goal Standby Assistance Transfer Goal Standby Assistance Front Wheeled Walker Four Wheeled Walker Gait Goal Standby Assistance Front Wheel Walker Four Wheel Walker Gait Distance 150 Other Goals up/down 2 steps with R rail ascending SBA Days to Meet Goals 10 Frequency of Treatment Frequency Of Treatment Twice a Day Treatment Plan Physical Therapy Treatment Plan Bed Mobility Training Transfer Training Gait Training Therapeutic Exercise Balance Retraining Discharge Planning Hot or Cold Pack Neuromuscular Re-ed Coordination Retraining Manual Therapy Other Recommendations and Next Treatment ambulation Focus Recommendations To Nursing Amount of Assist Needed 1 Person Assist Discharge Recommendations PT Discharge Recommendations SNF Rehab Other Discharge Recommendations Pt will benefit from SNF therapy to improve/ optimize mobility so he could mobilize in community safely and participate alcohol rehab.
--- NOTE | 2019-03-11 13:17 | PC.NURSE ---
1305 spoke w/Dr Silva, updated on Pt cont to be sleepy, arouseable but does not stay awake. Have been doing frequent glucose checks, last at 1255 for 112. orderd a ABG. Pt sats have remained 92-93% on 1.5 L. Pt has COPD. Pt has eaten eentire meal x 2, had one amp D50 this shift.
[2019-03-11 13:38] LABS: pH ABG 7.44 (7.35-7.45)
[2019-03-11 13:39] LABS: Fractionated Inspired Oxygen 26; HCO3 ABG 33 mmol/L (22-26); Oxygen Saturation ABG 98 % (95-100); PCO2 ABG 49.6 mmHg (35-45); PO2 ABG 104 mmHg (80-100); TCO2 ABG 35 mmol/L (21-31)
--- NOTE | 2019-03-11 14:06 | PT.IPTN ---
Current Diagnoses Chronic obstructive pulmonary disease with (acute) exacerbation (03/07/19) Physical Therapy Treatment Note M2 PT-IP Current Condition Start: 03/07/19 12:32 Freq: NEEDED Status: Active Protocol: Document 03/08/19 10:24 AB (Rec: 03/08/19 13:18 AB [id number]) Physical Therapy Current Condition Current Condition Evaluation Date 03/08/19 Treatment Diagnosis COPD exacerbation; CHF; difficulty in walking Onset Date 03/07/19 Precautions Other Precautions O2 sat M3 PT-IP Subjective Start: 03/07/19 12:32 Freq: NEEDED Status: Active Protocol: Document 03/11/19 13:50 GGD (Rec: 03/11/19 14:06 GGD [id number]) Subjective Physical Therapy Visit Type Type Treatment Note Visit Start Time 13:40 Visit Stop Time 13:50 Total Visit Minutes 10 Number of INSIDE PLANT SUPERVISOR Visits 1 Physical Therapy Visit Comments Patient Comments Pt states he feels really tired. M4 PT-IP Mobility and Gait Start: 03/07/19 12:32 Freq: NEEDED Status: Active Protocol: Document 03/11/19 13:50 GGD (Rec: 03/11/19 14:06 GGD [id number]) PT-Bed Mobility Assessment Sit to Supine Sit to Supine Standby Assistance Head of Bed Elevated PT-Transfer Assessment Sit to and From Stand Sit to and from Stand Contact Guard Assistance 1 Person Assistance Use of Upper Extremities Equipment Transfer Assistive Device Gait Belt 4 Wheeled Walker Orthotic/Prosthetic Devices or Brace: No Transfers Transfer Destination Bed Transfer Ability Level of Assist Contact Guard Assistance Use of Upper Extremities Comments Mobility Comments Pt had unsteadiness with sit to stand from toilet. He was stable with standing balance at sink with UE support. Gait Assessment Gait Gait Assistance Required: Minimum Assistance Distance (Feet) 10 Able to Maintain Weight Bearing Status Yes During Gait Assistive Devices Assistive Device Gait Belt 4 Wheeled Walker Gait Deviations General Gait Pattern Decreased Stride Length Decreased Feet Clearance Flexed Trunk Wide Based Gait Factors Limiting Gait Function Factors Limiting Gait Function Decreased Activity Tolerance Decreased Strength Poor Balance Poor Safety Awareness Comments Gait Comments 4WW x 5 feet with CGA and then 5 feet without assistive device with Min A. Pt LE buckled with gait. M5 PT-IP Objective Assessments Start: 03/07/19 12:32 Freq: NEEDED Status: Active Protocol: Document 03/08/19 10:24 AB (Rec: 03/08/19 13:18 AB [id number]) Orientation Orientation/Cognition Level of Alertness Alert Orientation Name Age Place Situation Gross Range of Motion Upper Extremity ROM Assessment Within Functional Limits Strength Lower Extremity Strength Assessment Bilaterally Impaired Comments Strength Comments RLE: 3+/5 LLE 4-/5 Coordination Assessment Gross Coordination Gross Coordination WNL Sensation Assessment Sensation Gross Sensation WNL Muscle Tone Muscle Tone WNL Yes M6 PT-IP Treatment Start: 03/07/19 12:32 Freq: NEEDED Status: Active Protocol: Document 03/10/19 09:20 HH (Rec: 03/10/19 11:50 HH [email or web address]) Physical Therapy Treatment Exercises Exercises Ankle Pumps Gluteal Sets Straight Leg Raises Education Education Provided Safety Other Treatments Other Treatment Performed Education for smoking cessation. deep breathing education during exertion M7 PT-IP Assessment and Plan Start: 03/07/19 12:32 Freq: NEEDED Status: Active Protocol: Document 03/11/19 13:50 GGD (Rec: 03/11/19 14:06 GGD [id number]) PT Summary Assessment and Plan Summary Assessment Summary Pt needed increase in assistance with gait, due to weakness and LE buckling. He limit tolerance to activity with C/O tired. Pt would benefit from SNF to improve mobility. Frequency of Treatment Frequency Of Treatment Twice a Day Treatment Plan Physical Therapy Treatment Plan Bed Mobility Training Transfer Training Gait Training Therapeutic Exercise Balance Retraining Discharge Planning Hot or Cold Pack Neuromuscular Re-ed Coordination Retraining Manual Therapy Other Recommendations and Next Treatment ambulation Focus Recommendations To Nursing Amount of Assist Needed 1 Person Assist Discharge Recommendations PT Discharge Recommendations SNF Rehab
--- NOTE | 2019-03-11 14:09 | OT.IP.TRT ---
Current Diagnoses Chronic obstructive pulmonary disease with (acute) exacerbation (03/07/19) Occupational Therapy Treatment Note M2 OT-IP Current Condition Start: 03/08/19 16:16 Freq: Status: Active Protocol: Document 03/08/19 14:45 [facility] (Rec: 03/08/19 16:41 [facility] [email or web address]) Occupational Therapy Current Condition Current Condition Evaluation Date 03/08/19 Treatment Diagnosis COPD exacerbation, CHF Diagnosis Onset Date 03/07/19 M3 OT- IP Subjective and Pain Start: 03/08/19 16:16 Freq: Status: Active Protocol: Document 03/11/19 14:01 [facility] (Rec: 03/11/19 14:09 [facility] [email or web address]) OT- Subjective Occupational Therapy Visit Type Type Treatment Note Visit Start Time 13:45 Visit Stop Time 13:55 Total Visit Minutes 10 Occupational Therapy Visit Comments Patient Comments Pt states feeling very tired and not wanting to shower at this time. OT Pain Assessment Pain When Pain Assessed At Rest Pain Present Pain Present Denied Pain M7 OT- IP Mobility and Balance Start: 03/08/19 16:16 Freq: Status: Active Protocol: Document 03/11/19 14:01 [facility] (Rec: 03/11/19 14:09 [facility] [email or web address]) OT- Bed Mobility Assessment Rolling Level of Assistance Standby Assistance OT-Transfer Assessment Sit to and From Stand Sit to and from Stand Minimal Assistance Transfers Transfer Ability Minimal Assistance 2 Person Assistance Technique Transfer Destination Bed Toilet Transfer Technique Stand Step Pivot Devices Transfer Assistive Devices None Gait Belt Front Wheeled Walker Comments Mobility Comments Pt very shaky on his feet and trial of walking without device and needing DELFINA x 2 and legs buckling. OT- Balance Assessment Sitting Balance and Reactions Static Sitting Balance Ability Good Standing Balance and Reactions Static Standing Balance Ability Fair Dynamic Standing Balance Ability Poor Comments Other Balance Tests/Deviations/Treatment Pt having to lean to the : counter and hands on the counter for balance while trying to wash his hands. Pt' s O2 level dropped to 88%. M8 OT- IP Objective Assessments Start: 03/08/19 16:16 Freq: Status: Active Protocol: Document 03/08/19 14:45 [facility] (Rec: 03/08/19 16:41 [facility] [email or web address]) OT Gross Range of Motion Upper Extremity Range of Motion Assessment Within Functional Limits M9 OT- IP Assessment and Plan Start: 03/08/19 16:16 Freq: Status: Active Protocol: Document 03/11/19 14:01 [facility] (Rec: 03/11/19 14:09 [facility] [email or web address]) OT Summary Assessment and Plan Potential Rehabilitation Potential Good Analytic Complexity at Evaluation Low Summary OT Impairments Strength Balance Functional Mobility Dressing Toileting Bathing Toilet Transfers Shower Transfers Progress Towards Goals Slow Progress due to Medical Issues Assessment Summary Pt will benefit from skilled rehab prior to going to inpt ETOH program to improve on balance, and independence with needs. Goals Grooming Goal Independent Dressing Goal Independent Toileting Goal Independent Bathing Goal Standby Assistance Toilet Transfer Goal Independent Shower Transfer Goal Standby Assistance OT-Other Goals Goals completed with FWW. Days to Meet Goals 5 Frequency of Treatment Frequency Of Treatment Once a Day Treatment Plan OT Treatment Plan ADL Training Functional Mobility Patient/Family Education Discharge Planning Discharge Recommendations OT Discharge Recommendations SNF Rehab Other Discharge Recommendations then in pt alcohol rehab program Home Equipment Needs tub seat, grab bars, toilet paper aid brewing technician, sock aid, long shoe horn and bath sponge provided
--- NOTE | 2019-03-11 14:32 | CM.DPC ---
DCP/continued: Reviewed chart. Received notification in AM rounds that patient most likely will be medically cleared for discharge tomorrow 03-12-19. Met with patient explained role. Patient in bed w/CPAP in place. Spoke with RN/Anjali whom reports that they have had difficulty with patient's blood sugars today. Spoke with patient about d/c plan. Patient in agreement that best option would be SNF. First choice is [facility]. Placed call to [facility], spoke with Kaylee. Per April, Kimberli supposed to be coming over to access. Notified April that d/c anticipated for tomorrow. Patient in complete agreement with plan and without any behavioral issues. Patient asked about treatment after rehab for ETOH. Notified him that at this time his best option would be to seek coverage in [place] through the [place] or enroll in intensive outpatient program in [facility]. Per previous CM notes [place] for substance abuse/mental health is in [place]. Outpatient services in [facility] most likely would need to be covered via Medicare, private pay via sliding scale and or potential for Medicaid enrollment. In either case patient aware and agreeable. Patient prefers to not have to go to [place] and is considering enrollment in intensive outpatient program once rehabilitation completed. P: [facility] reviewing. They are aware that patient will most likely be medically stable tomorrow and ready to discharge. LYN Bee
[2019-03-11] MEDS: AZITHROMYCIN 250 MG in DEXTROSE 5% IN WATER 250 ML IV (18:07)
[2019-03-11] MEDS: ATORVASTATIN 20 MG TABLET 40 MG PO (21:08)
[2019-03-11] MEDS: INSULIN ASPART 100 UNIT/ML INSULN PEN SUBCUT (21:09)
[2019-03-12] VITALS (7 sets, daily range): BP systolic 137–153; BP diastolic 89–94; PULSE 61–69; RESP 16–18; TEMP 36.6–36.7; O2SAT 91–95
[2019-03-12] MEDS: ALBUTEROL/IPRATROPIUM 3 ML AMPUL INH ×2 (05:57→11:00)
[2019-03-12] MEDS: BECLOMETHASONE 40 MCG INH 10.6 GM 1 PUFF INH (05:57)
[2019-03-12] MEDS: PANTOPRAZOLE 20 MG TABLET PO (06:08)
[2019-03-12] MEDS: LEVOTHYROXINE 50 MCG TABLET PO (06:08)
[2019-03-12] MEDS: ISOSORBIDE MONONITRATE ER 60 MG PO (08:37)
[2019-03-12] MEDS: POTASSIUM CHLORIDE 20 MEQ TAB PO (08:38)
[2019-03-12] MEDS: LISINOPRIL 5 MG TABLET 2.5 MG PO (08:38)
[2019-03-12] MEDS: MAGNESIUM CHLORIDE 64 MG TABLET 128 MG PO (08:38)
[2019-03-12] MEDS: FOLIC ACID 1 MG TABLET PO (08:38)
[2019-03-12] MEDS: CITALOPRAM 20 MG TABLET 40 MG PO (08:38)
[2019-03-12] MEDS: MULTIVITAMIN 1 TABLET 1 TAB PO (08:39)
[2019-03-12] MEDS: GABAPENTIN 300 MG CAPSULE PO (08:39)
[2019-03-12] MEDS: METOPROLOL IR 25 MG TABLET PO (08:39)
[2019-03-12] MEDS: FUROSEMIDE 20 MG TABLET PO (08:39)
[2019-03-12] MEDS: NICOTINE 21 MG PATCH TOP (08:40)
[2019-03-12] MEDS: SODIUM CHLORIDE 0.9% FLUSH 10 ML IV (08:40)
[2019-03-12] MEDS: HEPARIN 5,000 UNIT/ML VIAL 5000 UNIT SUBCUT (08:41)
[2019-03-12] MEDS: predniSONE 20 MG TABLET 40 MG PO (08:41)
[2019-03-12] MEDS: INSULIN ASPART 100 UNIT/ML INSULN PEN 30 UNIT SUBCUT (08:42)
[2019-03-12] MEDS: INSULIN GLARGINE 100 UNIT/ML 10ML VIAL 70 UNIT SUBCUT (08:52)
--- NOTE | 2019-03-12 09:10 | PT.IPTN ---
Current Diagnoses Chronic obstructive pulmonary disease with (acute) exacerbation (03/07/19) Physical Therapy Treatment Note M2 PT-IP Current Condition Start: 03/07/19 12:32 Freq: NEEDED Status: Active Protocol: Document 03/08/19 10:24 AB (Rec: 03/08/19 13:18 AB [id number]) Physical Therapy Current Condition Current Condition Evaluation Date 03/08/19 Treatment Diagnosis COPD exacerbation; CHF; difficulty in walking Onset Date 03/07/19 Precautions Other Precautions O2 sat M3 PT-IP Subjective Start: 03/07/19 12:32 Freq: NEEDED Status: Active Protocol: Document 03/12/19 09:10 AB (Rec: 03/12/19 11:24 AB [id number]) Subjective Physical Therapy Visit Type Type Treatment Note Visit Start Time 09:10 Visit Stop Time 09:21 Total Visit Minutes 11 Number of COOLER SERVICER Visits 0 Physical Therapy Visit Comments Patient Comments pt agreed to do PT M4 PT-IP Mobility and Gait Start: 03/07/19 12:32 Freq: NEEDED Status: Active Protocol: Document 03/12/19 09:10 AB (Rec: 03/12/19 11:24 AB [id number]) PT-Transfer Assessment Sit to and From Stand Sit to and from Stand Contact Guard Assistance Equipment Transfer Assistive Device Gait Belt 4 Wheeled Walker Gait Assessment Gait Gait Assistance Required: Contact Guard Assist Minimum Assistance Distance (Feet) 100 Able to Maintain Weight Bearing Status Yes During Gait Assistive Devices Assistive Device Gait Belt 4 Wheeled Walker Orthotic/Prosthetic Devices or Brace: No Gait Deviations General Gait Pattern Decreased Stride Length Decreased Feet Clearance Step-to Gait Factors Limiting Gait Function Factors Limiting Gait Function Decreased Activity Tolerance Decreased Strength Limited Range of Motion Poor Balance Poor Safety Awareness M5 PT-IP Objective Assessments Start: 03/07/19 12:32 Freq: NEEDED Status: Active Protocol: Document 03/08/19 10:24 AB (Rec: 03/08/19 13:18 AB [id number]) Orientation Orientation/Cognition Level of Alertness Alert Orientation Name Age Place Situation Gross Range of Motion Upper Extremity ROM Assessment Within Functional Limits Strength Lower Extremity Strength Assessment Bilaterally Impaired Comments Strength Comments RLE: 3+/5 LLE 4-/5 Coordination Assessment Gross Coordination Gross Coordination WNL Sensation Assessment Sensation Gross Sensation WNL Muscle Tone Muscle Tone WNL Yes M6 PT-IP Treatment Start: 03/07/19 12:32 Freq: NEEDED Status: Active Protocol: Document 03/10/19 09:20 HH (Rec: 03/10/19 11:50 HH [email or web address]) Physical Therapy Treatment Exercises Exercises Ankle Pumps Gluteal Sets Straight Leg Raises Education Education Provided Safety Other Treatments Other Treatment Performed Education for smoking cessation. deep breathing education during exertion M7 PT-IP Assessment and Plan Start: 03/07/19 12:32 Freq: NEEDED Status: Active Protocol: Document 03/12/19 09:10 AB (Rec: 03/12/19 11:24 AB [id number]) PT Summary Assessment and Plan Potential Rehabilitation Potential Fair Summary Impairments Pain ROM Strength Balance Coordination Sensation Tone Cognition Bed Mobility Transfers Gait Activity Tolerance Progress Towards Goals Slow Progress due to Medical Issues Slow Progress due to Activity Tolerance Assessment Summary pt progressing slowly with mobility. continues to present with weakness and decrease activity tolerance. pt will benefit from SNF rehab . Goals Bed Mobility Goal Standby Assistance Transfer Goal Standby Assistance Front Wheeled Walker Four Wheeled Walker Gait Goal Standby Assistance Front Wheel Walker Four Wheel Walker Gait Distance 150 Other Goals up/down 2 steps with R rail ascending SBA Days to Meet Goals 10 Frequency of Treatment Frequency Of Treatment Twice a Day Treatment Plan Physical Therapy Treatment Plan Bed Mobility Training Transfer Training Gait Training Therapeutic Exercise Balance Retraining Discharge Planning Hot or Cold Pack Neuromuscular Re-ed Coordination Retraining Manual Therapy Other Recommendations and Next Treatment ambulation Focus Recommendations To Nursing Amount of Assist Needed 1 Person Assist Discharge Recommendations PT Discharge Recommendations SNF Rehab
[2019-03-12 10:02] LABS: Alanine Aminotransferase 104 IU/L (21-72); Albumin 3.8 g/dL (3.5-5.0); Albumin Globulin Ratio 1.4 (1.0-2.8); Alkaline Phosphatase 80 U/L (38-126); Aspartate Aminotransferase 85 IU/L (17-59); BUN Creatinine Ratio 28.8 (6-22); Bilirubin Total 0.5 mg/dL (0.2-1.3); Blood Urea Nitrogen 23 mg/dL (9-20); Calcium 9.2 mg/dL (8.4-10.2); Carbon Dioxide 29 mmol/L (22-32); Chloride 97 mmol/L (98-107); Estimated Glomerular Filt Rate > 60.0 mL/min (>60); Globulin 2.8 g/dL (1.7-4.1); Glucose 124 mg/dL (80-110); HEMOLYSIS < 15 (0-50); Potassium 3.9 mmol/L (3.4-5.1); Sodium 136 mmol/L (137-145); Total Protein 6.6 g/dL (6.3-8.2)
--- NOTE | 2019-03-12 10:06 | OT.IP.TRT ---
Current Diagnoses Chronic obstructive pulmonary disease with (acute) exacerbation (03/07/19) Occupational Therapy Treatment Note M2 OT-IP Current Condition Start: 03/08/19 16:16 Freq: Status: Active Protocol: Document 03/08/19 14:45 [facility] (Rec: 03/08/19 16:41 [facility] [email or web address]) Occupational Therapy Current Condition Current Condition Evaluation Date 03/08/19 Treatment Diagnosis COPD exacerbation, CHF Diagnosis Onset Date 03/07/19 M3 OT- IP Subjective and Pain Start: 03/08/19 16:16 Freq: Status: Active Protocol: Document 03/12/19 10:05 [facility] (Rec: 03/12/19 10:06 [facility] [email or web address]) OT- Subjective Occupational Therapy Visit Type Type Treatment Note Notes Pt states just showered, already saw PT and just wanting to rest and refusing OT treatment today.
--- NOTE | 2019-03-12 11:20 | PM.DS.1 ---
History of Present Illness Chief complaint: SOB Narrative: Carlos Randall is a 63-year-old male with past medical history significant for coronary artery disease status post coronary stents x2, hypertension, hyperlipidemia, diabetes mellitus type 2, insulin using, poorly controlled, chronic kidney disease stage 2, significant alcoholism without history of withdrawal who presented for progressive worsening shortness of breath. The patient reports that 2 days ago he began getting short of breath and has progressively worsened. He endorses productive cough. He also has chest pain likely due to cough paroxysms. He denies sick contacts. He reports chronic rhinitis and diarrhea related to metformin use and to the extent that it has recently been discontinued. He denies fever, chills, nausea, vomiting, sore throat, or any other respiratory symptoms. He is a current smoker approximately 1.5 ppd. He drinks a significant amount of alcohol per week approximately 2.5 gal of whiskey. He has never experienced withdrawal but readily admits to not going without alcohol for a prolonged time. He denies DTs or alcohol induced seizure. He reports he has been drinking heavily for the last 5 years due to his daughter dying of drug overdose 10 years ago. Chest x-ray and CTA demonstrated moderate bilateral pleural effusions of unclear etiology or acuity. No PE. Recent nuclear medicine perfusion scan demonstrated EF of 64%. He denies history of CHF. Patient received Lasix 40 mg IV x1 in the ED with good urine output. He also received methylprednisolone 125 mg IV with improvement in wheezing. Patient was admitted for COPD exacerbation and possible new onset CHF. PCP is Dr. Londono. Discharge Providers Date of admission: 03/07/19 07:33 Discharge Date: 03/12/19 Primary care physician: Lakia Londono DO Consults: 03/07/19 09:02 Consult to Body Repairer Routine Comment: 03/07/19 09:15 Consult to Occupational Therapy Evaluate & Treat Comment: Physician Instructions: Evaluate and treat Consult to Physical Therapy Evaluate & Treat Comment: Physician Instructions: Evaluate and Treat 03/07/19 12:05 Consult to Respiratory Therapy Evaluate & Treat Comment: Order and admin treatments per protocol Physician Instructions: Evaluate and treat 03/07/19 17:42 Consult to Dietitian, Adult Routine Comment: Reason For Exam: Alcoholism 03/08/19 07:27 Consult to Body Repairer Routine Comment: CD assessment, resources Discharge provider: Devendra Baker MD Summary Discharge Diagnosis: 1. Acute COPD exacerbation 2. Acute hypoxemic respiratory failure secondary to #1 3. Bilateral pleural effusions likely secondary to cirrhosis 4. Acute costochondritis causing other chest pain 5. Chronic stable angina secondary to CAD 6. Alcohol dependency with acute alcohol withdrawal 7. Type 2 insulin-requiring diabetes with hypoglycemia secondary to insulin 8. Tobacco dependence 9. Obstructive sleep apnea 10. Liver cirrhosis, presumed due to alcohol Hospital Course: Hospital course by problem: 1. Acute COPD exacerbation with acute hypoxemic respiratory failure, present on admission. Acute hypoxemic respiratory failure resolved and COPD exacerbation resolving. -Patient presented with worsening shortness of breath and hypoxemia with oxygen saturation in the mid 80's on room air. Not on oxygen at home. -Received methylprednisolone initially, now on prednisone 40 mg daily to discharge on 5 more days prednisone at this dose. -Received azithromycin 5 day course for anti-inflammatory benefits. -Respiratory viral PCR was negative. -Was begun on supplemental oxygen as needed. Oxygen saturation goal 88-92%. No longer needing oxygen. -Consulted respiratory therapy for evaluation and treatment. Continue duo nebs 4 times daily on discharge. Continue QVAR 1 puff twice daily. -Recommend petroleum products sales representative evaluation and treatment in the future. 2. Bilateral pleural effusions, likely acute but unclear, present on admission. Resolved. -Likely secondary to liver cirrhosis versus CHF with preserved systolic ejection fraction -treated with IV Lasix 20 mg b.i.d. although no significant net diuresis, and has been started on spironolactone 50 mg twice daily and resuming his routine oral furosemide 20 mg daily -CTA demonstrated moderate bilateral pleural effusions. -Echocardiogram demonstrated normal LV with preserved function and EF of 60-65%, borderline dilated RV with normal function, normal LV diastolic function, RVSP 29, left atrium moderately dilated, right atrium is mildly dilated, there is mild mitral regurg, no other significant valvular heart disease, and ascending aorta is mildly enlarged. BNP was 299. -Liver ultrasound demonstrated diffuse increased echogenicity of the liver which is compatible with cirrhosis and possible superimposed hepatic steatosis may be present, no definite liver lesions, and no ascites. 3. Acute costochondritis with chronic stable angina, present on admission. Resolving. -Chest pain reproducible with palpation. Patient has dry bronchospastic cough paroxysms causing chest wall pain. -Continue Imdur 60 mg daily. Patient has multiple cardiac risk factors including: CAD, hypertension, hyperlipidemia, diabetes mellitus type 2, insulin using and uncontrolled, current smoker, gender, age, obstructive sleep apnea not on CPAP. However, trop negative x 2, EKG negative and he received sublingual nitroglycerin without improvement in chest pain and mild improvement with morphine. -Continue on tramadol 50 mg 3 times daily as needed for severe pain. 4. Alcohol dependence, chronic, present on admission. Stable. -Patient denied any history of alcohol withdrawal, DTs or alcohol withdrawal seizure. -Patient readily admits to drinking 2.5 gal of whiskey per week. Patient has not gone prolonged amount of time without alcohol. His last drink was the evening of 03/06. -Continue CIWA protocol. Back off on Lorazepam dose to avoid oversedation. -Continue multivitamin, folate, and thiamine supplementation. Replete electrolytes (K and Mg) as needed. -Patient would like to go to inpatient intensive rehabilitation for alcoholism after he gets discharged from halfway rehab. 5. Coronary artery disease status post stenting x2, chronic, present on admission. -Continue atorvastatin 40 mg daily at bedtime, Imdur 60 mg daily, furosemide 20 mg IV twice daily as above, lisinopril 2.5 mg daily, and metoprolol tartrate 25 mg twice daily. -Patient is not on aspirin possibly due to alcoholism and potential underlying liver disease? -The patient reports he has not seen a mrp controller in least 5 years. Recommend outpatient cardiology follow-up. 6. Hypertension, chronic, present on admission. Stable. -Continue Imdur 60 mg daily, furosemide 20 mg daily as above, lisinopril 2.5 mg daily, spironolactone 50 mg b.i.d., and metoprolol tartrate 25 mg twice daily. -check basic metabolic panel in 1 week due to initiation of spironolactone. 7. Hyperlipidemia, chronic, present on admission. Stable. -Continue atorvastatin 40 mg daily at bedtime. 8. Diabetes mellitus type 2, insulin using, present on admission. Stable. -Hemoglobin A1c 8.4% 03/20. -Continue Lantus and decreased to 70 units twice daily due to hypoglycemia. -continue insulin as part take 30 units twice daily with meal -Continue ACHS blood glucose checks and high-dose correctional scale insulin. -Continue heart healthy/carbohydrate consistent diet. -Continue gabapentin 300 mg twice daily. 9. CKD stage 2 ruled out. -Patient reports chronic stage 2 kidney disease in the past. GFR > 60, creatinine clearance 66 and creatinine 0.70 all within normal limits. -Continue to avoid nephrotoxic agents. 10. Hypothyroidism, chronic, present on admission. Stable. -Continue levothyroxine 50 mcg daily. 11. Depression, chronic, present on admission. Stable. -Continue citalopram 40 mg daily. 12. Tobacco dependence, chronic, present on admission. Stable. -Continue nicotine patch 21 mg daily as needed for nicotine withdrawal. 13. Essential tremor, chronic, present on admission. Stable. -Not medically treated. Patient drinks alcohol daily which likely is some form of self-medication. -None visible today 14. Obstructive sleep apnea not on CPAP, chronic, present on admission. Stable. -he was on CPAP in hospital -he will need to CPAP arranged for outpatient use Disposition: Likely to discharge to halfway facility in 1-2 days with improvement in COPD exacerbation and will plan to participate in intensive inpatient alcohol rehabilitation once released from halfway facility. Status at Discharge Cognitive/behavioral status at discharge: oriented Overall status at discharge: patient is not back to baseline Time Spent with Patient Greater than 30 minutes Exam Vital Signs (past 8 hours): - 03/12/19 04:45 03/12/19 05:58 03/12/19 07:45 Temperature 97.8 F 97.8 F Pulse Rate 61 66 69 Respiratory Rate 18 18 16 Blood Pressure 153/94 H 137/89 Pulse Oximetry 94 93 93 03/12/19 08:33 03/12/19 11:02 Temperature Pulse Rate 64 Respiratory Rate 17 Blood Pressure Pulse Oximetry 93 91 Fraction of Inspired Oxygen 21 Oxygen Delivery Method Room Air Oxygen Flow Rate 0 Narrative Exam Narrative: General: Alert, no acute distress Lungs: Few bibasilar crackles, diminished throughout, no audible wheeze Heart: Regular rhythm Abdomen: Obese, nontender Extremities: No edema Neurological: Well oriented, nonfocal Objective Labs Result Diagrams: 03/09/19 05:50 03/12/19 06:37 Labs: Laboratory Results - last 24 hr 03/11/19 03/12/19 13:23 06:37 ABG pH 7.44 ABG pCO2 49.6 H ABG pO2 104 H ABG HCO3 33 H ABG Total CO2 35 H ABG O2 Saturation 98 ABG Base Excess 9.0 H FiO2 26 Sodium 136 L Potassium 3.9 Chloride 97 L Carbon Dioxide 29 BUN 23 H Creatinine 0.80 Estimated GFR > 60.0 BUN/Creatinine Ratio 28.8 H Glucose 124 H Calcium 9.2 Total Bilirubin 0.5 AST 85 H ALT 104 H Alkaline Phosphatase 80 Total Protein 6.6 Albumin 3.8 Globulin 2.8 Albumin/Globulin Ratio 1.4 Discharge Plan Discharge Plan Patient Disposition: SNF Transfer to: [facility] ([place]) Labs: BMP in 1 week Consult as needed: Dental, Hearing, Mental health, Podiatry and Vision I certify the postop hospital halfway care is medically necessary on a continuing basis for any conditions for which he/ she received care during this hospitalization.: Yes The receiving facility has agreed to accept transfer and provide medical treatment.: Yes Discharge Med Rec/Prescriptions Prescriptions: New Lantus U-100 Insulin 100 unit/mL Solution 70 unit subcut BID Qty: 15 RF: 0 acetaminophen 325 mg Tablet 650 mg PO Q6HR PRN (Reason: As Needed For Fever/Mild Pain) Qty: 30 RF: 0 ipratropium-albuterol 0.5 mg-3 mg(2.5 mg base)/3 mL Solution For Nebulization 3 ml INH QID Qty: 360 RF: 0 polyethylene glycol 3350 17 gram Powder In Packet 17 gm PO DAILY 30 Days RF: 0 prednisone 20 mg Tablet 40 mg PO DAILY Qty: 10 RF: 0 tramadol 50 mg Tablet 50 mg PO TID PRN (Reason: Pain, Moderate (4-6)) Qty: 30 RF: 0 nicotine 21 mg/24 hr Patch 24 Hour 21 mg topical DAILY Qty: 30 RF: 0 Novolog Flexpen U-100 Insulin 100 unit/mL Insulin Pen See Rx Instructions .ROUTE .COMPLEX Qty: 3 RF: 0 spironolactone 50 mg tablet 50 mg PO BID Qty: 60 RF: 0 Continued pen needle, diabetic [Comfort EZ Pen [place]] 29 gauge x 1/2 needle .ROUTE .MEDSUPPLY Qty: 100 RF: 0 pen needle, diabetic [Comfort EZ Pen [place]] 31 gauge x 5/16 needle .ROUTE .MEDSUPPLY Qty: 100 RF: 3 levothyroxine [Synthroid] 50 mcg tablet 50 mcg PO QAM Qty: 90 RF: 0 metoprolol tartrate 25 mg tablet 25 mg PO BID Qty: 180 RF: 0 lisinopril 2.5 mg tablet 2.5 mg PO QAM Qty: 90 RF: 0 citalopram [Celexa] 40 mg tablet 40 mg PO DAILY Qty: 90 RF: 0 insulin aspart U-100 100 unit/mL insulin pen See Rx Instructions subcut BIDWM Qty: 15 RF: 0 albuterol sulfate [Proventil HFA] 90 mcg/actuation HFA aerosol inhaler 2 puff INHALATION QID PRN (Reason: shortness of breath) Qty: 18 RF: 5 beclomethasone dipropionate 40 mcg/actuation HFA aerosol breath activated 1 puff Inhalation BID Qty: 10.6 RF: 5 furosemide [Lasix] 20 mg tablet 20 mg PO DAILY Qty: 30 RF: 0 atorvastatin 40 mg tablet 40 mg PO BEDTIME RF: 0 isosorbide mononitrate 60 MG tablet extended release 24 hr 60 mg PO QAM RF: 0 gabapentin 300 mg capsule 300 mg PO BID RF: 0 omeprazole 20 mg Tablet,Delayed Release (Dr/Ec) 20 mg PO DAILY RF: 0 Discontinued insulin glargine 100 unit/mL (3 mL) insulin pen 80 unit subcut BID Qty: 15 RF: 0 Follow up/Referrals: Lakia Londono DO [Primary Care Provider] - Discharge Health Status Multidrug resistant organism: No MDRO Precautions: [place] Provider Discharge Instructions Diet: Diet as Tolerated [facility] Rehab type: Physical therapy and Occupational therapy Discharge Data Primary Care Provider: Lakia Londono Attending Provider: Faith Rice Admit Date/Time: 03/07/19 07:33 Quality VTE Deep Vein Thrombosis/Pulmonary Embolism Present on Admission: No
--- NOTE | 2019-03-12 11:25 | P.DS_ITS ---
History of Present Illness Chief complaint: SOB Narrative: Carlos Randall is a 63-year-old male with past medical history significant for coronary artery disease status post coronary stents x2, hypertension, hyperlipidemia, diabetes mellitus type 2, insulin using, poorly controlled, chronic kidney disease stage 2, significant alcoholism without history of withdrawal who presented for progressive worsening shortness of breath. The patient reports that 2 days ago he began getting short of breath and has progressively worsened. He endorses productive cough. He also has chest pain likely due to cough paroxysms. He denies sick contacts. He reports chronic rhinitis and diarrhea related to metformin use and to the extent that it has recently been discontinued. He denies fever, chills, nausea, vomiting, sore throat, or any other respiratory symptoms. He is a current smoker approximately 1.5 ppd. He drinks a significant amount of alcohol per week approximately 2.5 gal of whiskey. He has never experienced withdrawal but readily admits to not going without alcohol for a prolonged time. He denies DTs or alcohol induced s eizure. He reports he has been drinking heavily for the last 5 years due to his daughter dying of drug overdose 10 years ago. Chest x-ray and CTA demonstrated moderate bilateral pleural effusions of unclear etiology or acuity. No PE. Recent nuclear medicine perfusion scan demonstrated EF of 64%. He denies history of CHF. Patient received Lasix 40 mg IV x1 in the ED with good urine output. He also received methylprednisolone 125 mg IV with improvement in wheezing. Patient was admitted for COPD exacerbation and possible new onset CHF. PCP is Dr. Londono. Discharge Providers Date of admission: 03/07/19 07:33 Discharge Date: 03/12/19 Primary care physician: Lakia Londono DO Consults: 03/07/19 09:02 Consult to Cylinder Machine Operator Pulp Drier Routine Comment: 03/07/19 09:15 Consult to Occupational Therapy Evaluate & Treat Comment: Physician Instructions: Evaluate and treat Consult to Physical Therapy Evaluate & Treat Comment: Physician Instructions: Evaluate and Treat 03/07/19 12:05 Consult to Respiratory Therapy Evaluate & Treat Comment: Order and admin treatments per protocol Physician Instructions: Evaluate and treat 03/07/19 17:42 Consult to Dietitian, Adult Routine Comment: Reason For Exam: Alcoholism 03/08/19 07:27 Consult to Cylinder Machine Operator Pulp Drier Routine Comment: CD assessment, resources Discharge provider: Devendra Baker MD Summary Discharge Diagnosis: 1. Acute COPD exacerbation 2. Acute hypoxemic respiratory failure secondary to #1 3. Bilateral pleural effusions likely secondary to cirrhosis 4. Acute costochondritis causing other chest pain 5. Chronic stable angina secondary to CAD 6. Alcohol dependency with acute alcohol withdrawal 7. Type 2 insulin-requiring diabetes with hypoglycemia secondary to insulin 8. Tobacco dependence 9. Obstructive sleep apnea 10. Liver cirrhosis, presumed due to alcohol Hospital Course: Hospital course by problem: 1. Acute COPD exacerbation with acute hypoxemic respiratory failure, present on admission. Acute hypoxemic respiratory failure resolved and COPD exacerbation resolving. -Patient presented with worsening shortness of breath and hypoxemia with oxygen saturation in the mid 80's on room air. Not on oxygen at home. -Received methylprednisolone initially, now on prednisone 40 mg daily to discharge on 5 more days prednisone at this dose. -Received azithromycin 5 day course for anti-inflammatory benefits. -Respiratory viral PCR was negative. -Was begun on supplemental oxygen as needed. Oxygen saturation goal 88-92%. No longer needing oxygen. -Consulted respiratory therapy for evaluation and treatment. Continue duo nebs 4 times daily on discharge. Continue QVAR 1 puff twice daily. -Recommend intelligence officer evaluation and treatment in the future. 2. Bilateral pleural effusions, likely acute but unclear, present on admission. Resolved. -Likely secondary to liver cirrhosis versus CHF with preserved systolic ejection fraction -treated with IV Lasix 20 mg b.i.d. although no significant net diuresis, and has been started on spironolactone 50 mg twice daily and resuming his routine oral furosemide 20 mg daily -CTA demonstrated moderate bilateral pleural effusions. -Echocardiogram demonstrated normal LV with preserved function and EF of 60-65%, borderline dilated RV with normal function, normal LV diastolic function, RVSP 29, left atrium moderately dilated, right atrium is mildly dilated, there is mild mitral regurg, no other significant valvular heart disease, and ascending aorta is mildly enlarged. BNP was 299. -Liver ultrasound demonstrated diffuse increased echogenicity of the liver which is compatible with cirrhosis and possible superimposed hepatic steatosis may be present, no definite liver lesions, and no ascites. 3. Acute costochondritis with chronic stable angina, present on admission. Res olving. -Chest pain reproducible with palpation. Patient has dry bronchospastic cough paroxysms causing chest wall pain. -Continue Imdur 60 mg daily. Patient has multiple cardiac risk factors includ ing: CAD, hypertension, hyperlipidemia, diabetes mellitus type 2, insulin using and uncontrolled, current smoker, gender, age, obstructive sleep apnea not on CPAP. However, trop negative x 2, EKG negative and he received sublingual nitroglycerin without improvement in chest pain and mild improvement with morphine. -Continue on tramadol 50 mg 3 times daily as needed for severe pain. 4. Alcohol dependence, chronic, present on admission. Stable. -Patient denied any history of alcohol withdrawal, DTs or alcohol withdrawal seizure. -Patient readily admits to drinking 2.5 gal of whiskey per week. Patient has not gone prolonged amount of time without alcohol. His last drink was the evening of 03/06. -Continue CIWA protocol. Back off on Lorazepam dose to avoid oversedation. -Continue multivitamin, folate, and thiamine supplementation. Replete electrolytes (K and Mg) as needed. -Patient would like to go to inpatient intensive rehabilitation for alcoholism after he gets discharged from custodial rehab. 5. Coronary artery disease status post stenting x2, chronic, present on admis adalid. -Continue atorvastatin 40 mg daily at bedtime, Imdur 60 mg daily, furosemide 20 mg IV twice daily as above, lisinopril 2.5 mg daily, and metoprolol tartrate 25 mg twice daily. -Patient is not on aspirin possibly due to alcoholism and potential underlying liver disease? -The patient reports he has not seen a medical attendant in least 5 years. Recommend outpatient cardiology follow-up. 6. Hypertension, chronic, present on admission. Stable. -Continue Imdur 60 mg daily, furosemide 20 mg daily as above, lisinopril 2.5 mg daily, spironolactone 50 mg b.i.d., and metoprolol tartrate 25 mg twice daily. -check basic metabolic panel in 1 week due to initiation of spironolactone. 7. Hyperlipidemia, chronic, present on admission. Stable. -Continue atorvastatin 40 mg daily at bedtime. 8. Diabetes mellitus type 2, insulin using, present on admission. Stable. -Hemoglobin A1c 8.4% 03/20. -Continue Lantus and decreased to 70 units twice daily due to hypoglycemia. -continue insulin as part take 30 units twice daily with meal -Continue ACHS blood glucose checks and high-dose correctional scale insulin. -Continue heart healthy/carbohydrate consistent diet. -Continue gabapentin 300 mg twice daily. 9. CKD stage 2 ruled out. -Patient reports chronic stage 2 kidney disease in the past. GFR > 60, creatinine clearance 66 and creatinine 0.70 all within normal limits. -Continue to avoid nephrotoxic agents. 10. Hypothyroidism, chronic, present on admission. Stable. -Continue levothyroxine 50 mcg daily. 11. Depression, chronic, present on admission. Stable. -Continue citalopram 40 mg daily. 12. Tobacco dependence, chronic, present on admission. Stable. -Continue nicotine patch 21 mg daily as needed for nicotine withdrawal. 13. Essential tremor, chronic, present on admission. Stable. -Not medically treated. Patient drinks alcohol daily which likely is some form of self-medication. -None visible today 14. Obstructive sleep apnea not on CPAP, chronic, present on admission. Stable. -he was on CPAP in hospital -he will need to CPAP arranged for outpatient use Disposition: Likely to discharge to custodial facility in 1-2 days with improvement in COPD exacerbation and will plan to participate in intensive inpatient alcohol rehabilitation once released from custodial facility. Status at Discharge Cognitive/behavioral status at discharge: oriented Overall status at discharge: patient is not back to baseline Time Spent with Patient Greater than 30 minutes Exam Vital Signs (past 8 hours): - 03/12/19 04:45 03/12/19 05:58 03/12/19 07:45 Temperature 97.8 F 97.8 F Pulse Rate 61 66 69 Respiratory Rate 18 18 16 Blood Pressure 153/94 H 137/89 Pulse Oximetry 94 93 93 03/12/19 08:33 03/12/19 11:02 Temperature Pulse Rate 64 Respiratory Rate 17 Blood Pressure Pulse Oximetry 93 91 Fraction of Inspired Oxygen 21 Oxygen Delivery Method Room Air Oxygen Flow Rate 0 Narrative Exam Narrative: General: Alert, no acute distress Lungs: Few bibasilar crackles, diminished throughout, no audible wheeze Heart: Regular rhythm Abdomen: Obese, nontender Extremities: No edema Neurological: Well oriented, nonfocal Objective Labs Result Diagrams: 03/09/19 05:50 03/12/19 06:37 Labs: Laboratory Results - last 24 hr 03/11/19 03/12/19 13:23 06:37 ABG pH 7.44 ABG pCO2 49.6 H ABG pO2 104 H ABG HCO3 33 H ABG Total CO2 35 H ABG O2 Saturation 98 ABG Base Excess 9.0 H FiO2 26 Sodium 136 L Potassium 3.9 Chloride 97 L Carbon Dioxide 29 BUN 23 H Creatinine 0.80 Estimated GFR > 60.0 BUN/Creatinine Ratio 28.8 H Glucose 124 H Calcium 9.2 Total Bilirubin 0.5 AST 85 H ALT 104 H Alkaline Phosphatase 80 Total Protein 6.6 Albumin 3.8 Globulin 2.8 Albumin/Globulin Ratio 1.4 Discharge Plan Discharge Plan Patient Disposition: SNF Transfer to: [facility] Labs: BMP in 1 week Consult as needed: Dental, Hearing, Mental health, Podiatry and Vision I certify the postop hospital custodial care is medically necessary on a continuing basis for any conditions for which he/ she received care during this hospitalization.: Yes The receiving facility has agreed to accept transfer and provide medical treatment.: Yes Discharge Med Rec/Prescriptions Prescriptions: New Lantus U-100 Insulin 100 unit/mL Solution 70 unit subcut BID Qty: 15 RF: 0 acetaminophen 325 mg Tablet 650 mg PO Q6HR PRN (Reason: As Needed For Fever/Mild Pain) Qty: 30 RF: 0 ipratropium-albuterol 0.5 mg-3 mg(2.5 mg base)/3 mL Solution For Nebulization 3 ml INH QID Qty: 360 RF: 0 polyethylene glycol 3350 17 gram Powder In Packet 17 gm PO DAILY 30 Days RF: 0 prednisone 20 mg Tablet 40 mg PO DAILY Qty: 10 RF: 0 tramadol 50 mg Tablet 50 mg PO TID PRN (Reason: Pain, Moderate (4-6)) Qty: 30 RF: 0 nicotine 21 mg/24 hr Patch 24 Hour 21 mg topical DAILY Qty: 30 RF: 0 Novolog Flexpen U-100 Insulin 100 unit/mL Insulin Pen See Rx Instructions .ROUTE .COMPLEX Qty: 3 RF: 0 spironolactone 50 mg tablet 50 mg PO BID Qty: 60 RF: 0 Continued pen needle, diabetic [Comfort EZ Pen [place]] 29 gauge x 1/2 needle .ROUTE .MEDSUPPLY Qty: 100 RF: 0 pen needle, diabetic [Comfort EZ Pen [place]] 31 gauge x 5/16 needle .ROUTE .MEDSUPPLY Qty: 100 RF: 3 levothyroxine [Synthroid] 50 mcg tablet 50 mcg PO QAM Qty: 90 RF: 0 metoprolol tartrate 25 mg tablet 25 mg PO BID Qty: 180 RF: 0 lisinopril 2.5 mg tablet 2.5 mg PO QAM Qty: 90 RF: 0 citalopram [Celexa] 40 mg tablet 40 mg PO DAILY Qty: 90 RF: 0 insulin aspart U-100 100 unit/mL insulin pen See Rx Instructions subcut BIDWM Qty: 15 RF: 0 albuterol sulfate [Proventil HFA] 90 mcg/actuation HFA aerosol inhaler 2 puff INHALATION QID PRN (Reason: shortness of breath) Qty: 18 RF: 5 beclomethasone dipropionate 40 mcg/actuation HFA aerosol breath activated 1 puff Inhalation BID Qty: 10.6 RF: 5 furosemide [Lasix] 20 mg tablet 20 mg PO DAILY Qty: 30 RF: 0 atorvastatin 40 mg tablet 40 mg PO BEDTIME RF: 0 isosorbide mononitrate 60 MG tablet extended release 24 hr 60 mg PO QAM RF: 0 gabapentin 300 mg capsule 300 mg PO BID RF: 0 omeprazole 20 mg Tablet,Delayed Release (Dr/Ec) 20 mg PO DAILY RF: 0 Discontinued insulin glargine 100 unit/mL (3 mL) insulin pen 80 unit subcut BID Qty: 15 RF: 0 Follow up/Referrals: Lakia Londono DO [Primary Care Provider] - Discharge Health Status Multidrug resistant organism: No MDRO Precautions: [place] Provider Discharge Instructions Diet: Diet as Tolerated [facility] Rehab type: Physical therapy and Occupational therapy Discharge Data Primary Care Provider: Lakia Londono Attending Provider: Faith Rice Admit Date/Time: 03/07/19 07:33 Quality VTE Deep Vein Thrombosis/Pulmonary Embolism Present on Admission: No
--- NOTE | 2019-03-12 11:38 | PC.NURSE ---
Addendum entered by Katherine Ramírez R.N. 03/12/19 13:22: Transfer: (left approx 1255) IV dc'd intact. Tele dc'd earlier. All belongings packed and sent with patient at time of transfer. Report called to Cait at [facility]. Assisted into wheelchair and taken out by transport staff. Addendum entered by Katherine Ramírez R.N. 03/12/19 12:37: Patient up in chair eating lunch, reports feeling better as far as his blood sugar goes. CBG before lunch 112. Addendum entered by Katherine Ramírez R.N. 03/12/19 11:48: This blurb writer let Dr Baker know about patient's blood sugar as described below (plus what insulin was given this morning and how much patient ate). Anticipate Dr Baker is going to make some adjustments to insulin dosing prior to patient's transfer to [facility] this afternoon. Original Note: Blood sugar: Patient called, asked to have his blood sugar checked because he felt it might be low. CBG was 56. Patient drank 360 ml apple & grape juice and is eating cheese sticks and crackers. Will monitor and re-check shortly.
[2019-03-12] MEDS: TRAMADOL 50 MG TABLET PO (12:15)
--- NOTE | 2019-03-12 13:17 | CM.DPC ---
DCP/continued: Reviewed chart. Received notification from MD/Dr. Baker that patient medically stable for discharge. Patient has been accepted at [facility]. Placed call to April at [facility] notifying her of discharge. Orders obtained and faxed to [facility]. Met with patient to confirm plan. Patient aware and agreeable. P: [facility] today. LYN Bee
== END 2019-03-12 12:55 | DRG 190 ==
LOC: ED 07:18 → AC 07:33
PROVIDERS: Family Medicine; Admitting Provider Internal Medicine; Emergency Provider Emergency Medicine; Family Provider Family Medicine; PCP Family Medicine; Visit Provider Internal Medicine
DX: J44.1 Chronic obstructive pulmonary disease with (acute) exacerbation (principal); J96.01 Acute respiratory failure with hypoxia; J90 Pleural effusion, not elsewhere classified; F10.230 Alcohol dependence with withdrawal, uncomplicated; E11.22 Type 2 diabetes mellitus with diabetic chronic kidney disease; E11.65 Type 2 diabetes mellitus with hyperglycemia; M94.0 Chondrocostal junction syndrome [Tietze]; K70.30 Alcoholic cirrhosis of liver without ascites; I25.118 Atherosclerotic heart disease of native coronary artery with other forms of angina pectoris; E78.5 Hyperlipidemia, unspecified; Z79.4 Long term (current) use of insulin; I12.9 Hypertensive chronic kidney disease with stage 1 through stage 4 chronic kidney disease, or unspecified chronic kidney disease; N18.2 Chronic kidney disease, stage 2 (mild); F17.210 Nicotine dependence, cigarettes, uncomplicated; K21.9 Gastro-esophageal reflux disease without esophagitis; E03.9 Hypothyroidism, unspecified; F32.9 Major depressive disorder, single episode, unspecified; G47.33 Obstructive sleep apnea (adult) (pediatric); G25.0 Essential tremor
CPT/HCPCS: 36415; 36591; 36600; 71045; 71275; 76700; 80053; 82550; 82553; 82805; 82962; 83036; 83690; 83735; 83880; 84145; 84484; 85025; 87633; 93005; 93306; 94150; 94640; 94660; 94760; 94762; 96374; 96375; 97116; 97162; 97165; 97530; 97535; 99283; 99285; 99406; J1644; J1940; J2060; J2270; J2920; J2930; J7613; Q9967

== ENCOUNTER 2019-04-16 02:39 | Emergency (ER) | payer OTHER, MEDICARE, SELFPAY ==
[2019-03-07 08:46] VITALS: BMI 35.5
[2019-04-16 02:45] VITALS: BP 145/88; PULSE 63; RESP 20; TEMP 36.9; O2SAT 96
[2019-04-16 03:06] LABS: Alanine Aminotransferase 25 IU/L (21-72); Albumin 4.2 g/dL (3.5-5.0); Albumin Globulin Ratio 1.2 (1.0-2.8); Alkaline Phosphatase 71 U/L (38-126); Aspartate Aminotransferase 25 IU/L (17-59); BUN Creatinine Ratio 21.4 (6-22); Bilirubin Total 0.4 mg/dL (0.2-1.3); Blood Urea Nitrogen 15 mg/dL (9-20); Calcium 9.7 mg/dL (8.4-10.2); Carbon Dioxide 31 mmol/L (22-32); Chloride 99 mmol/L (98-107); Creatine Kinase 144 U/L (55-170); Estimated Glomerular Filt Rate > 60.0 mL/min (>60); Globulin 3.4 g/dL (1.7-4.1); Glucose 246 mg/dL (80-110); Potassium 3.9 mmol/L (3.4-5.1); Sodium 138 mmol/L (137-145); Total Protein 7.6 g/dL (6.3-8.2)
[2019-04-16 03:07] LABS: Add Manual Diff / Slide Review NO; Basophils Absolute Auto 0 /uL (0-100); Basophils Percent Auto 0.2 % (0-2); Eosinophils Absolute Auto 100 /uL (0-450); Eosinophils Percent Auto 0.8 % (2-4); Hematocrit 42.1 % (41-53); Hemoglobin 14.7 g/dL (13.5-17.5); Lymphocytes Absolute Auto 1900 /uL (1100-4500); Lymphocytes Percent Auto 22.1 % (25-40); Mean Corpuscular HGB Conc 34.9 % (30-36); Mean Corpuscular Hemoglobin 33.1 PG (26-34); Mean Corpuscular Volume 94.7 fL (80-100); Monocytes Absolute Auto 700 /uL (0-900); Monocytes Percent Auto 8.3 % (3-14); Neutrophils Absolute Auto 5900 /uL (1500-7000); Neutrophils Percent Auto 68.6 % (50-75); Platelet Count 243 X10^3/uL (150-400); Red Blood Cell Count 4.45 X10^6/uL (4.5-5.9); Red Cell Distribution Width 13.6 % (11.6-14.8); White Blood Cell Count 8.6 X10^3/uL (4.5-11.0)
[2019-04-16] MEDS: MECLIZINE HCL 12.5 MG TABLET 50 MG PO (03:11)
[2019-04-16 03:18] LABS: Troponin I < 0.012 ng/mL (0.01-0.034)
[2019-04-16 03:22] LABS: CKMB % Relative Index 1.6 % (1.5-5.0); Creatine Kinase MB 2.35 ng/mL (<2.37); HEMOLYSIS 21 (0-50)
--- NOTE | 2019-04-16 03:22 | ED_ITS ---
HPI - Dizziness General Chief Complaint: Dizziness Stated Complaint: Dizzy Time Seen by Provider: 04/16/19 02:40 Source: patient and EMS Mode of arrival: EMS Limitations: no limitations History of Present Illness HPI Narrative: Patient is 63-year-old male who presents with dizziness. He says started suddenly this evening he got up to go the bathroom and noticed she was quite dizzy. With worse whenever he stood up. He feels a little nauseated no vomiting. No heart palpitations. He has no weakness numbness or tingling. He states that he has had a history of vertigo in the past. He felt like he was going to pass out but he did not pass out. MD complaint: dizziness and lightheadedness Timing: sudden onset Description: room spinning Severity: moderate Relieving factors: remaining still Related Data Home Medications Medication Instructions Recorded Confirmed atorvastatin 40 mg PO BEDTIME 11/23/18 04/11/19 gabapentin 300 mg PO BID 11/23/18 04/11/19 isosorbide mononitrate 60 mg PO QAM 11/23/18 04/11/19 omeprazole 20 mg PO DAILY 03/07/19 04/11/19 Previous Rx's Medication Instructions Recorded pen needle, diabetic 29 gauge x #100 each 03/11/1811/03 pen needle, diabetic 31 gauge x #100 each 09/09/1803/17 levothyroxine 50 mcg tablet 50 mcg PO QAM #90 tab 11/09/18 metoprolol tartrate 25 mg tablet 25 mg PO BID #180 tab 11/09/18 lisinopril 2.5 mg tablet 2.5 mg PO QAM #90 tab 12/02/18 citalopram 40 mg tablet 40 mg PO DAILY #90 tab 01/05/19 furosemide [Lasix] 20 mg PO DAILY #30 tab 01/21/19 insulin aspart (U-100) 100 unit/mL See Rx Instructions SUBCUT BIDWM 02/09/19 (3 mL) subcutaneous pen #15 ml albuterol sulfate HFA 90 2 puff INHALATION QID PRN #18 gram 02/14/19 mcg/actuation aerosol inhaler beclomethasone diprop 40 1 puff INHALATION BID #10.6 gram 02/21/19 mcg/actuation HFA breath activated aerosol acetaminophen 650 mg PO Q6HR PRN #30 tab 03/12/19 insulin aspart U-100 [Novolog 20 unit SUBCUT BIDWM #15 ml 03/12/19 Flexpen U-100 Insulin] ipratropium-albuterol 3 ml INH QID #360 ml 03/12/19 nicotine 21 mg TOPICAL DAILY #30 ea 03/12/19 nicotine 21 mg/24 hr daily 1 patch TRANSDERMAL DAILY #28 each 03/29/19 transdermal patch insulin glargine (U-100) 100 80 unit SUBCUT BID #15 ml 04/06/19 unit/mL (3 mL) subcutaneous pen azithromycin 250 mg tablet See Rx Instructions PO .COMPLEX #6 04/11/19 tab bupropion HCl SR 150 mg tablet,12 150 mg PO DAILY #30 each 04/11/19 hr sustained-release meclizine 25 mg PO TID PRN #10 tab 04/16/19 ondansetron 4 mg PO Q6-8H PRN #10 tab 04/16/19 Allergies Allergy/AdvReac Type Severity Reaction Status Date / Time adhesive Allergy Mild REDNESS/ITC Verified 04/11/19 15:39 HINESS Review of Systems Review of Systems ROS Unobtainable: All systems reviewed & are unremarkable except as noted in HPI and below Constitutional Denies chills, Denies fever(s), Denies lethargy and Denies weakness Eyes Denies change in vision, Denies eye discharge, Denies irritation and Denies loss of vision ENT Ears, Nose, Mouth, and Throat: Denies change in voice, Denies neck pain and Denies sore throat Cardiovascular Denies chest pain, Denies syncope, Reports lightheadedness, Denies dyspnea and Denies dyspnea on exertion Respiratory Denies cough, Denies dyspnea, Denies dyspnea on exertion and Denies wheezing Gastrointestinal Gastrointestinal: Denies abdominal pain, Denies change in bowel habits, Denies diarrhea, Denies nausea and Denies vomiting Genitourinary Denies hematuria, Denies flank pain, Denies urinary incontinence and Denies urinary urgency Musculoskeletal Denies neck pain Integumentary/Breasts Denies pruritus, Denies erythema, Denies rash and Denies wounds Neurologic Reports as per HPI, Denies syncope, Denies loss of vision and Denies weakness Allergic/Immunologic Denies wheezing [facility] Medical History COPD (chronic obstructive pulmonary disease) (Chronic) Chronic cough (Chronic) Coronary artery disease (Chronic 2006) Depression (Chronic 2008) Diabetes (Chronic 1994) Eczema (Chronic) Foot pain (Chronic) GERD (gastroesophageal reflux disease) (Chronic 2012) Hyperlipidemia (Chronic) Hypertension (Chronic) Hypothyroidism (Chronic) Kidney disease (Chronic 2009) Neuropathy (Chronic) Obstructive sleep apnea (Chronic) Shoulder pain (Chronic) Chicken pox (Resolved 1956) Chickenpox (Resolved 1956) Gout (Resolved) Measles (Resolved 1955) Measles (Resolved 1955) Mumps (Resolved 1958) Mumps (Resolved 1958) Status post myocardial infarction (Resolved) Strain of muscle of right groin region (Resolved 03/30/18) Surgical History Anesthesia (Resolved) History of heart artery stent (Resolved 2006) History of heart artery stent (Resolved 2010) Hx of shoulder surgery (Resolved 2005) Family History Brother Age: 64 Diabetes mellitus Hyperlipidemia Mother Heart disease Hypertension Hyperlipidemia Diabetes mellitus Grandmother Diabetes mellitus Brother No problems noted. Sister Breast cancer Social History household members: spouse, children and other Smoking Status: Current every day smoker Tobacco: How many years used: 45 alcohol intake: current Family History Brother Age: 64 Diabetes mellitus Hyperlipidemia Mother Heart disease Hypertension Hyperlipidemia Diabetes mellitus Grandmother Diabetes mellitus Brother No problems noted. Sister Breast cancer Social History household members: spouse, children and other Smoking Status: Current every day smoker Tobacco: How many years used: 45 alcohol intake: current Exam Initial Vital Signs Initial Vital Signs: Vital Signs Temperature 98.4 F 04/16/19 02:45 Pulse Rate 63 04/16/19 02:45 Respiratory Rate 20 04/16/19 02:45 Blood Pressure 145/88 H 04/16/19 02:45 Pulse Oximetry 96 04/16/19 02:45 GENERAL: Alert pleasant male no acute distress HEENT: Head atraumatic,EOMI, pupils reactive, face symmetric, moist mucous membranes CARDIOVASCULAR: Regular rate and rhythm without murmurs, rubs or gallops. RESPIRATORY: Breath sounds equal bilaterally, no wheezes rales or rhonchi. ABDOMEN: Soft, nontender. Normoactive bowel sounds all 4 quadrants. No guarding or rebound. EXTREMITIES: Normal range of motion, no clubbing or edema. Neurovascularly intact NEUROLOGICAL: Alert and oriented x4.Normal gait and speech. Cranial nerves II through XII grossly intact. Good [id number], good [id number], strength equal bilaterally, no dysarthria or aphasia, sensation in tact to soft touch bilaterally, no visual changes, no facial droop SKIN: Warm, dry, no laceration, no petechiae, no rashes or lesions. Scores NIH Stroke Scale Level of Conciousness: Alert, keenly responsive Ask month/age: Answers both questions correctly. Open/close eyes, close hand: Performs both tasks correctly Best gaze horizontal: Normal Visual pascual: No visual loss Facial palsy: Normal symetrical movement Left arm drift: No drift for full 10 sec Right arm drift: No drift for full 10 sec Left leg drift: No drift for full 10 sec Right leg drift: No drift for full 10 sec Limb ataxia: Absent Sensory on face/arms/legs: Normal, no sensory loss Best language: No aphasia, normal Dysarthria: Normal Extinction or inattention: No abnormality Total NIH Stroke scale score: 0 Course Orders Ordered: ED Orders 04/16/19 EKG-12 Lead Routine 04/16/19 02:30 Complete Blood Count AUTO DIFF Stat Comprehensive Metabolic Panel Stat Troponin & CK Cardiac Panel Stat Sodium Chloride (Normal Saline 0.9%) 1,000 mls @ 150 mls/hr IV CONT LUCIANO Last Admin: 04/16/19 07:17 Dose: Not Given Discontinued Medications Meclizine HCl (Antivert) 50 mg PO NOW ONE Stop: 04/16/19 02:50 Last Admin: 04/16/19 03:11 Dose: 50 mg Nicotine (Nicoderm) 21 mg TOP NOW ONE Stop: 04/16/19 03:21 Last Admin: 04/16/19 03:36 Dose: 21 mg Vital Signs - 8 hr 04/16/19 02:45 04/16/19 05:00 Temperature 98.4 F Pulse Rate 63 64 Respiratory Rate 20 17 Blood Pressure 145/88 H Blood Pressure [Left Arm] 144/85 H Pulse Oximetry 96 MDM - Dizziness Lab Data Attestation: I reviewed the patient's lab results. Result diagrams: 04/16/19 02:30 04/16/19 02:30 Lab Results 04/16/19 04/16/19 Range/Units 02:30 02:30 WBC 8.6 (4.5-11.0) X10^3/uL RBC 4.45 L (4.5-5.9) X10^6/uL Hgb 14.7 (13.5-17.5) g/dL Hct 42.1 (41-53) % MCV 94.7 (80-100) fL MCH 33.1 (26-34) PG MCHC 34.9 (30-36) % RDW 13.6 (11.6-14.8) % Plt Count 243 (150-400) X10^3/uL Neut % (Auto) 68.6 (50-75) % Lymph % (Auto) 22.1 L (25-40) % [place] % (Auto) 8.3 (3-14) % Eos % (Auto) 0.8 L (2-4) % Baso % (Auto) 0.2 (0-2) % Neut # (Auto) 5900 (1035-6224) /uL Lymph # (Auto) 1900 (7638-9940) /uL [place] # (Auto) 700 (0-900) /uL Eos # (Auto) 100 (0-450) /uL Baso # (Auto) 0 (0-100) /uL Sodium 138 (137-145) mmol/L Potassium 3.9 (3.4-5.1) mmol/L Chloride 99 (98-107) mmol/L Carbon Dioxide 31 (22-32) mmol/L BUN 15 (9-20) mg/dL Creatinine 0.70 (0.66-1.25) mg/dL Estimated GFR > 60.0 (>60) mL/min BUN/Creatinine Ratio 21.4 (6-22) Glucose 246 H (80-110) mg/dL Calcium 9.7 (8.4-10.2) mg/dL Total Bilirubin 0.4 (0.2-1.3) mg/dL AST 25 (17-59) IU/L ALT 25 (21-72) IU/L Alkaline Phosphatase 71 (38-126) U/L Total Creatine Kinase 144 (55-170) U/L CK-MB (CK-2) 2.35 (<2.37) ng/mL CK-MB (CK-2) Rel Index 1.6 (1.5-5.0) % Troponin I < 0.012 (0.01-0.034) ng/mL Total Protein 7.6 (6.3-8.2) g/dL Albumin 4.2 (3.5-5.0) g/dL Globulin 3.4 (1.7-4.1) g/dL Albumin/Globulin Ratio 1.2 (1.0-2.8) Point of Care Testing Glucose POC 217 ECG Data Attestation: I personally reviewed and interpreted this ECG as follows: Prior ECG tracings: available for review Interpretation: Sinus rhythm rate [address] changes no T-wave inversions similar to previous EKGs Q-waves noted in septal leads TN interval 204 MDM Narrative Medical decision making narrative: Patient sleeping after meclizine. No focal deficits. Blood work reassuring. 6:40 a.m.. Patient is sleepy still but arousable leg overall better. I called his daughter and mom only on land line [phone] no answer I left a voicemail. I did contact his son and updated him on patient's situation. He recommended calling [facility] [phone] was no answer and voicemail. Discharge Plan Departure Patient Disposition: Home Clinical Impression: Vertigo Instructions: DI for Vertigo Activity Restrictions/Additional Instructions: *You have been diagnosed with vertigo *What to do: Increased fluid as tolerated, get up slowly *Continue to take medications as directed Meclizine 25 mg every 8 hours if needed for dizziness Zofran 4 mg every 6-8 hours as needed for nausea or vomiting *Follow up with your primary care provider in 2-3 days *Return to ER if you should have worsening dizziness, inability to keep anything down. Persistent vomiting or any new, worsening or concerning symptoms Prescriptions: New meclizine 25 mg tablet 25 mg PO TID PRN (Reason: dizziness) Qty: 10 RF: 0 ondansetron 4 mg tablet,disintegrating 4 mg PO Q6-8H PRN (Reason: nausea and vomiting) Qty: 10 RF: 0 No Action pen needle, diabetic [Comfort EZ Pen [place]] 29 gauge x 1/2 needle .ROUTE .MEDSUPPLY Qty: 100 RF: 0 pen needle, diabetic [Comfort EZ Pen [place]] 31 gauge x 5/16 needle .ROUTE .MEDSUPPLY Qty: 100 RF: 3 levothyroxine [Synthroid] 50 mcg tablet 50 mcg PO QAM Qty: 90 RF: 0 metoprolol tartrate 25 mg tablet 25 mg PO BID Qty: 180 RF: 0 lisinopril 2.5 mg tablet 2.5 mg PO QAM Qty: 90 RF: 0 citalopram [Celexa] 40 mg tablet 40 mg PO DAILY Qty: 90 RF: 0 insulin aspart U-100 100 unit/mL insulin pen See Rx Instructions subcut BIDWM Qty: 15 RF: 0 albuterol sulfate [Proventil HFA] 90 mcg/actuation HFA aerosol inhaler 2 puff INHALATION QID PRN (Reason: shortness of breath) Qty: 18 RF: 5 beclomethasone dipropionate 40 mcg/actuation HFA aerosol breath activated 1 puff Inhalation BID Qty: 10.6 RF: 5 nicotine 21 mg/24 hr patch 24 hour 1 patch Transdermal DAILY Qty: 28 RF: 1 Lantus Solostar U-100 Insulin 100 unit/mL (3 mL) insulin pen 80 unit SUBCUT BID Qty: 15 RF: 0 bupropion HCl [Wellbutrin SR] 150 mg tablet sustained-release 12 hr 150 mg PO DAILY Qty: 30 RF: 2 azithromycin [Zithromax] 250 mg tablet See Rx Instructions PO .COMPLEX Qty: 6 RF: 0 furosemide [Lasix] 20 mg tablet 20 mg PO DAILY Qty: 30 RF: 0 atorvastatin 40 mg tablet 40 mg PO BEDTIME RF: 0 isosorbide mononitrate 60 MG tablet extended release 24 hr 60 mg PO QAM RF: 0 gabapentin 300 mg capsule 300 mg PO BID RF: 0 omeprazole 20 mg Tablet,Delayed Release (Dr/Ec) 20 mg PO DAILY RF: 0 acetaminophen 325 mg Tablet 650 mg PO Q6HR PRN (Reason: As Needed For Fever/Mild Pain) Qty: 30 RF: 0 ipratropium-albuterol 0.5 mg-3 mg(2.5 mg base)/3 mL Solution For Nebulization 3 ml INH QID Qty: 360 RF: 0 nicotine 21 mg/24 hr Patch 24 Hour 21 mg topical DAILY Qty: 30 RF: 0 Novolog Flexpen U-100 Insulin 100 unit/mL insulin pen 20 unit SUBCUT BIDWM Qty: 15 RF: 0 Referrals: Lakia Londono DO [Primary Care Provider] -
[2019-04-16] MEDS: NICOTINE 21 MG PATCH TOP (03:36)
[2019-04-16 05:00] VITALS: BP 144/85; PULSE 64; RESP 17
[2019-04-16 07:00] VITALS: BP 154/79; PULSE 60; RESP 18; TEMP 36.7; O2SAT 97
[2019-04-16 07:15] VITALS: PULSE 61; RESP 17; O2SAT 97
== END 2019-04-16 07:30 | disposition home or self-care (01) ==
PROVIDERS: Emergency Provider Emergency Medicine; PCP Family Medicine
DX: R42 Dizziness and giddiness (principal)
CPT/HCPCS: 80053; 82550; 82553; 82962; 84484; 85025; 93005; 99283; 99284

== ENCOUNTER → 2019-07-11 11:33 | Outpatient (CLI) | payer OTHER, SELFPAY ==
[2019-06-17 15:20] VITALS: BMI 35.5
[2019-07-11 12:21] LABS: Hemoglobin A1C% w Est Avg Glu 8.8 % (4.0-6.0)
[2019-07-11 12:37] LABS: Alanine Aminotransferase 19 IU/L (21-72); Albumin 4.1 g/dL (3.5-5.0); Albumin Globulin Ratio 1.4 (1.0-2.8); Alkaline Phosphatase 89 U/L (38-126); Aspartate Aminotransferase 27 IU/L (17-59); BUN Creatinine Ratio 13.8 (6-22); Bilirubin Total 0.5 mg/dL (0.2-1.3); Blood Urea Nitrogen 11 mg/dL (9-20); Calcium 9.3 mg/dL (8.4-10.2); Carbon Dioxide 30 mmol/L (22-32); Chloride 101 mmol/L (98-107); Cholesterol 132 mg/dL (140-199); Estimated Glomerular Filt Rate > 60.0 mL/min (>60); Glucose 135 mg/dL (80-110); HDL Cholesterol 42 mg/dL (40-60); HEMOLYSIS < 15 (0-50); LDL Cholesterol Calculated 61 mg/dL (<100); Potassium 4.8 mmol/L (3.4-5.1); Sodium 142 mmol/L (137-145); Total Protein 7.1 g/dL (6.3-8.2); Triglycerides 147 mg/dL (35-150)
[2019-07-11 12:53] LABS: Free T3, Triiodothyronine Free 3.66 pg/mL (2.77-5.27)
[2019-07-11 13:07] LABS: Thyroid Stimulating Hormone 4.78 uIU/mL (0.47-4.68)
== END ==
PROVIDERS: PCP Family Medicine; Visit Provider Family Medicine
DX: E11.9 Type 2 diabetes mellitus without complications (principal); I25.10 Atherosclerotic heart disease of native coronary artery without angina pectoris; I10 Essential (primary) hypertension; J44.9 Chronic obstructive pulmonary disease, unspecified; K74.60 Unspecified cirrhosis of liver; E78.5 Hyperlipidemia, unspecified
CPT/HCPCS: 36415; 80053; 80061; 83036; 84439; 84443; 84481

== ENCOUNTER → 2019-07-12 13:46 | Outpatient (CLI) | payer OTHER, SELFPAY ==
[2019-06-17 15:20] VITALS: BMI 35.5
--- NOTE | 2019-07-12 14:42 | PM.TREADMILL ---
Cardiac Stress Test Report Referral & Results Date Patient Seen: 07/12/19 Requesting provider: Byron Valenzuela Indication: Coronary disease/chest pain Rest ECG: Unremarkable Procedure Note: After both written and verbal informed consent the patient had an IV started by the diagnostic imaging RN, and then was hooked up to the treadmill monitoring system. The Lexiscan material, and then the Cardiolite tracer, were administered sequentially. An additional 3 min was spent monitoring the patient while supine on the gurney. The patient had a normal response to all infused materials. Impression: Please see perfusion imaging report for details regarding possible ischemia Please note: Actual ECG tracings can be found in the PACS system.
--- NOTE | 2019-07-13 19:45 | DI.NM.S_ITS ---
DATE OF SERVICE: 07/12/2019 PROCEDURE PERFORMED: Pharmacologic vasodilator stress and rest myocardial perfusion imaging with gating to assess ejection fraction and regional wall motion. ORDERING PROVIDER: Byron Valenzuela MD. INDICATIONS: The patient is a 63-year-old smoker with a history of a stenting to the RCA who now presents with atypical chest discomfort. CARDIAC STRESS: Per protocol, 0.4 mg of regadenoson was infused, augmented by handgrip exercise. With this, he had a normal hemodynamic response and no chest discomfort. His resting ECG shows sinus rhythm with low QRS voltage with a right axis deviation but no significant ST-segment abnormalities. With pharmacologic stress, there are no significant ST-segment shifts or arrhythmias. Per protocol, 21.3 mCi of technetium-99 Myoview was injected and the patient was imaged 15 minutes later using a gated SPECT acquisition protocol. He returned the following day and was reinjected with an additional 20.3 mCi of technetium-99 Myoview and was imaged 30 minutes later, again using a gated SPECT acquisition protocol. FINDINGS: 1. Raw Data: There is fairly poor myocardial tracer uptake with considerable motion artifact noted on the resting images. While the TID ratio is calculated to be borderline elevated at 1.22, this is not visually apparent and is nonspecific with vasodilator stress. The lung/heart ratio is moderately elevated at 0.47, which could be a sign of pulmonary congestion. 2. Quantitative Gated SPECT: Post stress ejection fraction is calculated at 66% with a possible subtle inferior wall motion abnormality, although this is nonspecific because of fairly poor image quality. The resting ejection fraction is 70% and appears unchanged from the post stress images. Resting end-diastolic volume is 125 mL. 3. Myocardial Perfusion Imaging: Post stress supine images show mildly reduced tracer activity throughout the inferior wall extending to the inferior apex. While this pattern could reflect diaphragmatic attenuation, it persists on the prone images suggesting that it may represent a true perfusion defect. The resting images show a similar perfusion pattern without any clear areas of improvement. IMPRESSION: 1. Abnormal myocardial perfusion study. 2. [id number]-[id number] fixed inferior perfusion defect, likely reflecting previous nontransmural inferior infarction, although diaphragmatic attenuation cannot be entirely excluded. There is no evidence for myocardial ischemia. 3. Preserved left ventricular systolic function with a question of a inferior wall motion abnormality. The lung/heart ratio is moderately increase at 0.47 which can be a sign of pulmonary congestion but requires clinical correlation. 4. No angina or ECG evidence of ischemia with pharmacologic vasodilator stress. 5. Compared to the previous myocardial perfusion study of 03/31/2018, an identical perfusion pattern is seen although the inferior defect now appears to be entirely fixed without any reversibility. The previous TID ratio was 0.73 with a lung/heart ratio of 0.39 suggesting there may be some interval worsening, although again, image quality on today's study is relatively poor and could affect this. Carlos Randall - JOSE/alexandra/ doc#: [id number]/job#: [id number] dd: 07/13/2019 17:01:00 dt: 07/13/2019 19:28:00 DICTATING MD/COPIES TO: Bashir Velasquez MD; Byron Valenzuela MD; Lakia Londono, DO COPIES MNE: HARLEY MEJIAS; KALEIGH
== END ==
PROVIDERS: PCP Family Medicine; Visit Provider Internal Medicine Cardiovascular Disease
DX: R07.89 Other chest pain (principal); R94.39 Abnormal result of other cardiovascular function study; I25.10 Atherosclerotic heart disease of native coronary artery without angina pectoris; F17.200 Nicotine dependence, unspecified, uncomplicated; Z95.5 Presence of coronary angioplasty implant and graft
CPT/HCPCS: 78452; 93016; 93017; 93018; A9502; J2785

== ENCOUNTER → 2019-08-25 14:57 | Outpatient (CLI) | payer MEDICARE, SELFPAY ==
[2019-08-08 16:00] VITALS: BMI 35.5
--- NOTE | 2019-08-25 | DI.ECHO.S_ITS ---
[place] [facility]---------+ [facility] +---------+ : : [address] : [place] [address] : : : : [id number] : : : : Phone: [phone] Echocardiogram Report + + :Name: OLY BARR Study Date: 08/25/2019 Height: 66 in : :[facility] Weight: 214 lb : : Gender: Male BSA: 2.1 m2 : :: 1955 Age: 63 yrs BP: 106/66 mmHg: :Reason For Study: CAD : :Ordering Physician: Byron : :Landy Valenzuela Performed By: Lula García : :Referring: Lakia Londono : + + Interpretation Summary 1) Normal left entricular size, thickness, and systolic function (EF 60-65%). 2) Septal bounce present. No other obvious wall motion abnormalities present. 3) Normal right ventricular size with borderline reduced function. 4) Aortic valve calcification present but no significant stenosis or regurgitation noted. 5) A patent foramen ovale is suspected based on color doppler. 6) Compared to the Echo done 03/08/2019, no significant change. Procedure: A two-dimensional transthoracic echocardiogram with color flow and Doppler was performed. The study quality was technically adequate. Comparison is made with the echocardiogram of 03-08-19. The patient was in normal sinus rhythm during the exam. Left Ventricle: The left ventricle is normal in size. There is normal left ventricular wall thickness. The ejection fraction is estimated to be 60-65%. Left ventricular systolic function is normal. Septal bounce present. No other obvious wall motion abnormalities. present. Diastolic function could not be accurately assessed due to unobtainable data. Right Ventricle: The right ventricle is normal size. Right ventricular systolic function is borderline reduced. Atria: The left atrium is moderately dilated. Right atrial size is normal. A patent foramen ovale is suspected. Mitral Valve: The mitral valve is normal in structure and function. There is trace mitral regurgitation. Aortic Valve: The aortic valve is trileaflet. The aortic valve opens well. There is moderate aortic valve sclerosis. There is no hemodynamically significant valvular aortic stenosis. No aortic regurgitation is present. Tricuspid Valve: The tricuspid valve is normal in structure and function. No tricuspid regurgitation. Pulmonic Valve: The pulmonic valve is normal in structure and function. There is trace pulmonic regurgitation. Great Vessels: The aortic root is normal size. The ascending aorta is at the upper limits of normal in size. The aortic arch is at the upper limits of normal in size. The IVC is of normal diameter and collapses greater than 50% with a sniff. This suggests a low right atrial pressure of 3 mm Hg. Pericardium/ Pleura There is no pericardial effusion. There is no pleural effusion. MMode/2D Measurements & Calculations LVIDd: 5.2 cm Ao root diam: 3.5 cm LVIDs: 2.9 cm Aortic Jxn: 2.9 cm FS: 43.3 % asc Aorta Diam: 3.6 cm EPSS: 0.69 cm Ao Arch Diam (Prox Trans): 3.3 cm IVSd: 0.84 cm LVPWd: 0.83 cm LV brown. diameter/BSA (cm/m^2): 2.5 LV sys. diameter/BSA (cm/m^2): 1.4 LA dimension: 4.3 cm RA long axis: 4.9 cm LA A2 area: 23.3 cm2 RA area: 16.3 cm2 LA A4 area: 20.2 cm2 RA vol: 46.7 ml LA length (vol): 5.7 cm RA : 22.7 ml/m2 LA vol: 70.3 ml IVC diam: 1.7 cm LA vol index: 34.1 ml/m2 RVDd major: 6.1 cm RVD1 (basal): 4.5 cm RVD2 (mid): 3.9 cm SONDRA (plan): 2.3 cm2 Doppler Measurements & Calculations Ao V2 max: 153.0 cm/sec MV E max augustine: 78.8 cm/sec Ao V2 mean: 96.8 cm/sec MV A max augustine: 87.8 cm/sec Ao max P.4 mmHg MV E/A: 0.90 Ao mean P.4 mmHg Med Peak E' [place]: 5.4 cm/sec Ao V2 VTI: 34.9 cm E/E' med: 14.7 Lat Peak E' [place]: 7.3 cm/sec E/E' lat: 10.8 E/e' average: 12.8 MV dec time: 0.24 sec MV P1/2t: 70.8 msec PA V2 max: 83.9 cm/sec MV P1/2t max augustine: 78.3 cm/sec PA V2 mean: 54.8 cm/sec MVA(P1/2t): 3.1 cm2 PA mean P.4 mmHg Reading Physician:05:03 PM
== END ==
PROVIDERS: PCP Family Medicine; Visit Provider Internal Medicine Cardiovascular Disease
DX: I25.10 Atherosclerotic heart disease of native coronary artery without angina pectoris (principal)
CPT/HCPCS: 93306

== ENCOUNTER → 2019-10-06 11:41 | Outpatient (CLI) | payer MEDICARE, SELFPAY ==
[2019-08-08 16:00] VITALS: BMI 35.5
[2019-10-06 13:27] LABS: Alanine Aminotransferase 19 IU/L (<50); Albumin 3.9 g/dL (3.5-5.0); Albumin Globulin Ratio 1.5 (1.0-2.8); Alkaline Phosphatase 76 U/L (38-126); Aspartate Aminotransferase 26 IU/L (17-59); Bilirubin Total 0.6 mg/dL (0.2-1.3); Blood Urea Nitrogen 16 mg/dL (9-20); Calcium 9.1 mg/dL (8.4-10.2); Carbon Dioxide 28 mmol/L (22-32); Chloride 103 mmol/L (98-107); Cholesterol 147 mg/dL (140-199); Estimated Glomerular Filt Rate > 60.0 mL/min (>60); Globulin 2.6 g/dL (1.7-4.1); Glucose 246 mg/dL (80-110); HDL Cholesterol 49 mg/dL (40-60); HEMOLYSIS < 15 (0-50); LDL Cholesterol Calculated 72 mg/dL (<100); Potassium 4.3 mmol/L (3.4-5.1); Sodium 138 mmol/L (137-145); Total Protein 6.5 g/dL (6.3-8.2); Triglycerides 128 mg/dL (35-150)
[2019-10-06 13:40] LABS: Free T3, Triiodothyronine Free 3.52 pg/mL (2.77-5.27)
[2019-10-06 13:54] LABS: Thyroid Stimulating Hormone 3.17 uIU/mL (0.47-4.68)
== END ==
PROVIDERS: PCP Family Medicine; Visit Provider Family Medicine
DX: I10 Essential (primary) hypertension (principal); I25.10 Atherosclerotic heart disease of native coronary artery without angina pectoris; J44.9 Chronic obstructive pulmonary disease, unspecified; E11.9 Type 2 diabetes mellitus without complications; E03.9 Hypothyroidism, unspecified
CPT/HCPCS: 36415; 80053; 80061; 83036; 84439; 84443; 84481

== ENCOUNTER 2019-12-05 06:38 | Observation (INO) | payer OTHER, SELFPAY ==
[2019-11-18 10:01] VITALS: BMI 35.5
[2019-12-05] VITALS (10 sets, daily range): BP systolic 141–200; BP diastolic 75–103; PULSE 62–76; RESP 12–20; TEMP 36.4–36.9; O2SAT 94–99; BMI 32.3
--- NOTE | 2019-12-05 06:54 | DI.RAD.S_ITS ---
PROCEDURE: XR CHEST 1V INDICATIONS: chest pain TECHNIQUE: One view of the chest was acquired. COMPARISON: [facility], CT, CT ANGIO CHEST PE PROTOCOL, 03/07/2019, 3:50. [facility], CR, XR CHEST 1V, 03/08/2019, 18:02. FINDINGS: Surgical changes and devices: None. Lungs and pleura: Lungs are clear. No pleural effusions or pneumothorax. Mediastinum: Mediastinal contours appear normal. Heart size is normal. Bones and chest wall: No suspicious bony lesions. Overlying soft tissues appear unremarkable. IMPRESSION: No acute cardiopulmonary abnormality. Dictated by: Ed Hall M.D. on 12/05/2019 at 7:40 Approved by: Ed Hall M.D. on 12/05/2019 at 7:44
--- NOTE | 2019-12-05 07:01 | ED_ITS ---
HPI - Chest Pain General Chief Complaint: Chest Pain Stated Complaint: Chest pain Time Seen by Provider: 12/05/19 07:00 Source: EMS Mode of arrival: EMS Limitations: no limitations History of Present Illness HPI narrative: Patient is a 64-year-old male with history of coronary artery disease, diabetes COPD is presenting with chest discomfort. He says it started about 12 hours ago left side of his chest radiating to his left shoulder. It comes and goes but nothing makes it better or worse. He feels like he slightly short of breath and nauseous. He is not sure if this feels like his prior heart attack. He was given aspirin by EMS. He says that he has not slept in 2 nights and also has a history of depression and anxiety. He is not sure if this is anxiety. MD complaint: chest pain Onset (ago): hour(s) (12) Treatments prior to arrival chest pain: aspirin Related Data Previous Rx's Medication Instructions Recorded pen needle, diabetic 29 gauge x #100 each 03/11/1811/03 pen needle, diabetic 31 gauge x #100 each 09/09/1803/17 acetaminophen 650 mg PO Q6HR PRN #30 tab 03/12/19 ipratropium-albuterol 3 ml INH QID #360 ml 03/12/19 nicotine 21 mg TOPICAL DAILY #30 ea 03/12/19 atorvastatin 40 mg tablet 40 mg PO BEDTIME #90 tab 07/12/19 citalopram 40 mg tablet 40 mg PO DAILY #90 tab 07/12/19 metoprolol tartrate 25 mg tablet 25 mg PO BID #180 tab 08/02/19 albuterol sulfate 90 mcg/actuation 2 puff INHALATION QID PRN #18 gram 08/10/19 aerosol inhaler Disabled Parking Permit #1 ea 08/26/19 bupropion HCl 150 mg tablet,12 hr 150 mg PO DAILY #30 each 09/02/19 sustained-release gabapentin 300 mg capsule 900 mg PO BID #180 cap 09/28/19 insulin aspart U-100 100 unit/mL 20 unit SUBCUT BIDWM #15 ml 09/28/19 (3 mL) subcutaneous pen insulin glargine 100 unit/mL (3 80 unit SUBCUT BID #15 ml 09/28/19 mL) subcutaneous pen Test strips #1 ea 10/10/19 lancets #1 each 10/10/19 oxycodone-acetaminophen 5 mg-325 1 tab PO Q8H PRN #30 tab 10/10/19 mg tablet triamcinolone acetonide 0.1 % 1 applictn TOP DAILY #30 gram 10/10/19 topical cream beclomethasone dipropionate 40 1 inhalation INHALATION BID #10.6 10/12/19 mcg/actuation HFA breath activated gram aerosol isosorbide mononitrate 60 mg 60 mg PO QAM #90 tab 10/12/19 tablet,extended release 24 hr meclizine 25 mg tablet 25 mg PO TID PRN #10 tab 10/12/19 omeprazole 20 mg tablet,delayed 20 mg PO DAILY #30 tab 10/12/19 release Glucometer #1 ea 10/17/19 levothyroxine 50 mcg tablet 50 mcg PO QAM #90 tab 10/21/19 lisinopril 2.5 mg tablet 2.5 mg PO QAM #30 tab 10/21/19 insulin degludec 200 unit/mL (3 150 unit SUBCUT BEDTIME #9 ml 11/25/19 mL) subcutaneous pen Allergies Allergy/AdvReac Type Severity Reaction Status Date / Time adhesive Allergy Mild REDNESS/ITC Verified 11/25/19 14:09 HINESS Review of Systems Review of Systems Narrative: GENERAL: Denies chills, fatigue, malaise, fever, sweats, travel HEENT: Denies sinus pain, ear pain, sore throat, difficulty swallowing, neck pain RESPIRATORY: Denies dyspnea, cough, wheezing, hemoptysis, sputum. CARDIOVASCULAR: See HPI GASTROINTESTINAL: Denies nausea, vomiting, abdominal pain, diarrhea, constipation, melena. : Denies dysuria, frequency, incontinence, hematuria, urinary retention, flank pain. MUSCULOSKELETAL: Denies weakness, joint pain, or bony pain SKIN: No rash, no erythema, no pruritus NEUROLOGIC: Denies weakness, dizziness, headache, numbness, change in speech, confusion PSYCHIATRIC: No concerning psychosocial issues. 12 point review of systems is negative except for those stated above and HPI Patient History Medical History Chicken pox (Resolved 1956) Chickenpox (Resolved 1956) Chronic cough (Chronic) COPD (chronic obstructive pulmonary disease) (Chronic) Coronary artery disease (Chronic 2006) Depression (Chronic 2008) Diabetes (Chronic 1994) Eczema (Chronic) Foot pain (Chronic) GERD (gastroesophageal reflux disease) (Chronic 2012) Gout (Resolved) Hyperlipidemia (Chronic) Hypertension (Chronic) Hypothyroidism (Chronic) Kidney disease (Chronic 2009) Measles (Resolved 1955) Measles (Resolved 1955) Mumps (Resolved 1958) Mumps (Resolved 1958) Neuropathy (Chronic) Obstructive sleep apnea (Chronic) Shoulder pain (Chronic) Status post myocardial infarction (Resolved) Strain of muscle of right groin region (Resolved 03/30/18) Well adult exam (Acute) Surgical History Anesthesia (Resolved) History of heart artery stent (Resolved 2006) History of heart artery stent (Resolved 2010) Hx of shoulder surgery (Resolved 2005) Family History Brother Age: 65 Diabetes mellitus Hyperlipidemia Mother Heart disease Hypertension Hyperlipidemia Diabetes mellitus Grandmother Diabetes mellitus Brother No problems noted. Sister Breast cancer Social History household members: children and other Smoking Status: Current every day smoker Tobacco: How many years used: 45 alcohol intake: current Smoking Status: Current every day smoker alcohol intake frequency: 0-2 drinks per day Substance Use Type: marijuana Exam Initial Vital Signs Initial Vital Signs: Vital Signs Temperature 98.4 F 12/05/19 06:49 Pulse Rate 68 12/05/19 06:49 Respiratory Rate 12 12/05/19 06:49 Blood Pressure 200/103 H 12/05/19 06:49 Pulse Oximetry 98 12/05/19 06:49 GENERAL: Well-appearing, well-nourished and in no acute distress. HEENT: Head atraumatic,EOMI, pupils reactive, face symmetric, moist mucous membranes CARDIOVASCULAR: Regular rate and rhythm without murmurs, rubs or gallops. RESPIRATORY: Breath sounds equal bilaterally, no wheezes rales or rhonchi. Mild expiratory wheezing no respiratory distress ABDOMEN: Soft, nontender. Normoactive bowel sounds all 4 quadrants. No guarding or rebound. EXTREMITIES: Normal range of motion, no clubbing or edema. Neurovascularly intact NEUROLOGICAL: Alert and oriented x4.Normal gait and speech. Cranial nerves II through XII grossly intact. SKIN: Warm, dry, no laceration, no petechiae, no rashes or lesions. Course Orders Ordered: ED Orders 12/05/19 06:54 XR chest 1V Stat 12/05/19 07:13 Complete Blood Count AUTO DIFF Stat Comprehensive Metabolic Panel Stat D Dimer Stat Lipase Stat Partial Thromboplastin Time Stat Prothrombin Time INR Stat Troponin & CK Cardiac Panel Stat 12/05/19 07:18 NT-proBNP (BNP-Adult 18+) Stat Acetaminophen (Tylenol) 650 mg PO Q6HR PRN PRN Reason: Fever/Mild Pain (1-3) Al Hydrox/Mg Hydrox/Simethicone (Maalox Plus) 30 ml PO Q6HR PRN PRN Reason: Dyspepsia Albuterol (Ventolin) 2.5 mg INH [id number] PRN PRN Reason: Dyspnea Albuterol/Ipratropium (Duoneb) 3 ml INH RTBID LUCIANO Atorvastatin Calcium (Lipitor) 40 mg PO BEDTIME LUCIANO Bupropion HCl (Wellbutrin Sr) 150 mg PO DAILY [facility] Citalopram Hydrobromide (Celexa) 40 mg PO DAILY [facility] Gabapentin (Neurontin) 900 mg PO BID [facility] Heparin Sodium (Porcine) (Heparin) 5,000 unit SUBCUT BID [facility] Isosorbide Mononitrate (Imdur) 60 mg PO DAILY [facility] Levothyroxine Sodium (Synthroid) 50 mcg PO 0600 [facility] Lisinopril (Zestril) 2.5 mg PO DAILY [facility] Metoprolol Tartrate (Lopressor) 25 mg PO BID LUCIANO Last Admin: 12/05/19 12:29 Dose: 25 mg Documented by: ANTOINETTE Morphine Sulfate (Morphine) 4 mg IV Q4HR PRN PRN Reason: Pain, Severe (7-10) Last Admin: 12/05/19 12:29 Dose: 4 mg Documented by: ANTOINETTE Naloxone HCl (Narcan) 0.2 mg IV Q2MIN PRN PRN Reason: Opiate Reversal Nicotine (Nicoderm) 21 mg TOP DAILY [facility] Ondansetron HCl (Zofran) 4 mg IV Q8HR PRN PRN Reason: Nausea And Vomiting Pantoprazole Sodium (Protonix) 20 mg PO 0600 [facility] Sodium Chloride (Normal Saline 0.9% Flush) 10 ml IV PRN PRN PRN Reason: Flush Last Admin: 12/05/19 12:29 Dose: 10 ml Documented by: ANTOINETTE Sodium Chloride (Normal Saline 0.9% Flush) 10 ml IV BID LUCIANO Discontinued Medications Ketorolac Tromethamine (Toradol) 30 mg IV NOW ONE Stop: 12/05/19 10:19 Last Admin: 12/05/19 10:56 Dose: 30 mg Documented by: SHARAN Morphine Sulfate (Morphine) 2 mg IV NOW ONE Stop: 12/05/19 09:15 Last Admin: 12/05/19 09:33 Dose: 2 mg Documented by: BERT Nicotine (Nicoderm) 21 mg TOP NOW ONE Stop: 12/05/19 07:17 Last Admin: 12/05/19 08:07 Dose: 21 mg Documented by: JOSE Nitroglycerin (Nitrostat) 0.4 mg SL NOW ONE Stop: 12/05/19 07:17 Last Admin: 12/05/19 08:00 Dose: 0.4 mg Documented by: JOSE Vital Signs Vital signs: Vital Signs - 8 hr 12/05/19 06:49 12/05/19 09:34 12/05/19 10:00 Temperature 98.4 F Pulse Rate 68 62 63 Respiratory Rate 12 14 18 Blood Pressure 200/103 H Blood Pressure [R Arm] 171/88 H 175/93 H Pulse Oximetry 98 98 96 MDM - Chest Pain Lab Data Attestation: I reviewed the patient's lab results. Result diagrams: 12/05/19 07:13 12/05/19 07:13 Labs: Lab Results 12/05/19 12/05/19 12/05/19 Range/Units 07:13 07:13 07:13 WBC 9.4 (4.5-11.0) X10^3/uL RBC 4.59 (4.5-5.9) X10^6/uL Hgb 14.5 (13.5-17.5) g/dL Hct 41.5 (41-53) % MCV 90.3 (80-100) fL MCH 31.6 (26-34) PG MCHC 35.0 (30-36) % RDW 14.6 (11.6-14.8) % Plt Count 212 (150-400) X10^3/uL Neut % (Auto) 67.5 (50-75) % Lymph % (Auto) 23.5 L (25-40) % [place] % (Auto) 7.7 (3-14) % Eos % (Auto) 1.2 L (2-4) % Baso % (Auto) 0.1 (0-2) % Neut # (Auto) 6300 (5891-6049) /uL Lymph # (Auto) 2200 (1021-6759) /uL [place] # (Auto) 700 (0-900) /uL Eos # (Auto) 100 (0-450) /uL Baso # (Auto) 0 (0-100) /uL PT 13.3 H (10.1-12.7) SECONDS INR 1.2 (0.9-1.3) APTT 31 (26.4-36.2) SECONDS D-Dimer (<230) ng/mL Sodium 137 (137-145) mmol/L Potassium 3.4 (3.4-5.1) mmol/L Chloride 103 (98-107) mmol/L Carbon Dioxide 26 (22-32) mmol/L BUN 15 (9-20) mg/dL Creatinine 0.70 (0.66-1.25) mg/dL Estimated GFR > 60.0 (>60) mL/min BUN/Creatinine Ratio 21.4 (6-22) Glucose 172 H (80-110) mg/dL Calcium 9.0 (8.4-10.2) mg/dL Total Bilirubin 0.6 (0.2-1.3) mg/dL AST 25 (17-59) IU/L ALT 21 (<50) IU/L Alkaline Phosphatase 73 (38-126) U/L Total Creatine Kinase 183 H (55-170) U/L CK-MB (CK-2) 3.09 H (<2.37) ng/mL CK-MB (CK-2) Rel Index 1.7 (1.5-5.0) % Troponin I < 0.012 (0.01-0.034) ng/mL NT-Pro-B Natriuret Pep (<125) pg/mL Total Protein 7.2 (6.3-8.2) g/dL Albumin 4.0 (3.5-5.0) g/dL Globulin 3.2 (1.7-4.1) g/dL Albumin/Globulin Ratio 1.3 (1.0-2.8) Lipase 109 (23-300) U/L 12/05/19 12/05/19 Range/Units 07:13 07:18 WBC (4.5-11.0) X10^3/uL RBC (4.5-5.9) X10^6/uL Hgb (13.5-17.5) g/dL Hct (41-53) % MCV (80-100) fL MCH (26-34) PG MCHC (30-36) % RDW (11.6-14.8) % Plt Count (150-400) X10^3/uL Neut % (Auto) (50-75) % Lymph % (Auto) (25-40) % [place] % (Auto) (3-14) % Eos % (Auto) (2-4) % Baso % (Auto) (0-2) % Neut # (Auto) (2113-8399) /uL Lymph # (Auto) (9871-1756) /uL [place] # (Auto) (0-900) /uL Eos # (Auto) (0-450) /uL Baso # (Auto) (0-100) /uL PT (10.1-12.7) SECONDS INR (0.9-1.3) APTT (26.4-36.2) SECONDS D-Dimer < 200 (<230) ng/mL Sodium (137-145) mmol/L Potassium (3.4-5.1) mmol/L Chloride (98-107) mmol/L Carbon Dioxide (22-32) mmol/L BUN (9-20) mg/dL Creatinine (0.66-1.25) mg/dL Estimated GFR (>60) mL/min BUN/Creatinine Ratio (6-22) Glucose (80-110) mg/dL Calcium (8.4-10.2) mg/dL Total Bilirubin (0.2-1.3) mg/dL AST (17-59) IU/L ALT (<50) IU/L Alkaline Phosphatase (38-126) U/L Total Creatine Kinase (55-170) U/L CK-MB (CK-2) (<2.37) ng/mL CK-MB (CK-2) Rel Index (1.5-5.0) % Troponin I (0.01-0.034) ng/mL NT-Pro-B Natriuret Pep 288 H (<125) pg/mL Total Protein (6.3-8.2) g/dL Albumin (3.5-5.0) g/dL Globulin (1.7-4.1) g/dL Albumin/Globulin Ratio (1.0-2.8) Lipase (23-300) U/L ECG Data Attestation: I personally reviewed and interpreted this ECG as follows: Prior ECG tracings: available for review Interpretation: Normal sinus rhythm rate is 71 p.r. interval 196 QRS [address] elevation depression or T-wave inversion MDM Narrative Medical decision making narrative: The patient had minimal relief after nitroglycerin he is given morphine for his chest pain. He has known risk factors with hypertension. He will be placed in chest pain for further evaluation and management Dr. conrad has been updated patient's symptoms test results and agrees for observation Discharge Plan Departure Patient Disposition: Admitted as Observation Clinical Impression: Chest pain Discharge Date/Time: 12/05/19 11:15 Admit Date/Time: 12/05/19 10:16 Admit Provider: Dom Conrad
[2019-12-05 07:27] LABS: Add Manual Diff / Slide Review NO; Basophils Absolute Auto 0 /uL (0-100); Basophils Percent Auto 0.1 % (0-2); Eosinophils Absolute Auto 100 /uL (0-450); Eosinophils Percent Auto 1.2 % (2-4); Hematocrit 41.5 % (41-53); Hemoglobin 14.5 g/dL (13.5-17.5); Lymphocytes Absolute Auto 2200 /uL (1100-4500); Lymphocytes Percent Auto 23.5 % (25-40); Mean Corpuscular Hemoglobin 31.6 PG (26-34); Mean Corpuscular Volume 90.3 fL (80-100); Monocytes Absolute Auto 700 /uL (0-900); Monocytes Percent Auto 7.7 % (3-14); Neutrophils Absolute Auto 6300 /uL (1500-7000); Neutrophils Percent Auto 67.5 % (50-75); Platelet Count 212 X10^3/uL (150-400); Red Blood Cell Count 4.59 X10^6/uL (4.5-5.9); Red Cell Distribution Width 14.6 % (11.6-14.8); White Blood Cell Count 9.4 X10^3/uL (4.5-11.0)
[2019-12-05 07:36] LABS: PTT Partial Thromboplastin Tim 31 SECONDS (26.4-36.2)
[2019-12-05 07:41] LABS: INR 1.2 (0.9-1.3); Prothrombin Time 13.3 SECONDS (10.1-12.7)
[2019-12-05 07:49] LABS: D Dimer < 200 ng/mL (<230)
[2019-12-05 07:51] LABS: Alanine Aminotransferase 21 IU/L (<50); Albumin Globulin Ratio 1.3 (1.0-2.8); Alkaline Phosphatase 73 U/L (38-126); Aspartate Aminotransferase 25 IU/L (17-59); BUN Creatinine Ratio 21.4 (6-22); Bilirubin Total 0.6 mg/dL (0.2-1.3); Blood Urea Nitrogen 15 mg/dL (9-20); Carbon Dioxide 26 mmol/L (22-32); Chloride 103 mmol/L (98-107); Creatine Kinase 183 U/L (55-170); Estimated Glomerular Filt Rate > 60.0 mL/min (>60); Globulin 3.2 g/dL (1.7-4.1); Glucose 172 mg/dL (80-110); HEMOLYSIS < 15 (0-50); Lipase 109 U/L (23-300); Potassium 3.4 mmol/L (3.4-5.1); Sodium 137 mmol/L (137-145); Total Protein 7.2 g/dL (6.3-8.2)
[2019-12-05] MEDS: NITROGLYCERIN 0.4 MG SL TAB SL (08:00)
[2019-12-05 08:02] LABS: Troponin I < 0.012 ng/mL (0.01-0.034)
[2019-12-05 08:06] LABS: CKMB % Relative Index 1.7 % (1.5-5.0); Creatine Kinase MB 3.09 ng/mL (<2.37)
[2019-12-05] MEDS: NICOTINE 21 MG PATCH TOP (08:07)
[2019-12-05 08:38] LABS: NT-proBNP (BNP-Adult 18+) 288 pg/mL (<125)
[2019-12-05] MEDS: MORPHINE 2 MG/ML INJ IV (09:33)
[2019-12-05] MEDS: KETOROLAC 60 MG/2 ML VIAL 30 MG IV (10:56)
--- NOTE | 2019-12-05 11:04 | PC.NURSE ---
Discussed ongoing chest pain with Dr. Lynn. Very pleuritic in nature. She is not concerned that patient is not pain free. Medicated w/ toradol. Pain is worse w/ movement and deep breath. Denies chest pain except that pain prevents him from taking deep breath. D-Dimer negative.
--- NOTE | 2019-12-05 11:28 | PC.NURSE ---
Addendum entered by Katherine Ramírze R.N. 12/05/19 13:57: Blood sugar came up to 90 prior to him eating all of his lunch. At initial reassessment after giving IV Morphine patient rated chest pain down to 4/10. Patient now resting quietly in bed with eyes closed. Respirations regular and unlabored. Pain 0 on FLACC scale. Call light and belongings within reach, bed alarm on. Original Note: Admit: Arrived to room 221 at 1115. Awake and alert, oriented X3. C/O 6/10 across the upper chest, worse with deep breathing. States he does not believe the Toradol received in ED has helped much with the pain. Vitals stable, hypertensive. Reports slight shortness of breath, non-productive cough. Room air 99%. Patient requesting breathing treatment but does not have one ordered. This commercial lines underwriter spoke with Dr Conrad and given update on patient condition/requests, and made aware that patient is in room 221. Dr Conrad will round shortly. Oriented to room and call light, encouraged to make needs known. Does have Hx of falls within last 3 months, fall precautions in place.
--- NOTE | 2019-12-05 11:52 | P.HP_ITS ---
History of Present Illness History of Present Illness Date Patient Seen: 12/05/19 Time Patient Seen: 11:52 Chief complaint: Chest pain Narrative: Carlos Randall is a 63-year-old male with past medical history significant for coronary artery disease status post coronary stents x2, hypertension, hyperlipidemia, diabetes mellitus type 2, insulin using, poorly controlled, chronic kidney disease stage 2, significant alcoholism without history of withdrawal who presented for left-sided chest pain that started now 2 days ago. Chest pain is described as 6 to 7/10, pressure-like, radiating into his left shoulder. It is worse with inspiration and coughing. He does not note any alleviating factors, did not try anything at home. He was given nitro which did not seem to help with his pain. Morphine helped slightly but did not fully relieve his pain. He has mild shortness of breath, recent rhinorrhea and headaches. He denies fever but endorses subjective chills. He denies productive cough. Patient History Medical History Chicken pox (Resolved 1956) Chickenpox (Resolved 1956) Chronic cough (Chronic) COPD (chronic obstructive pulmonary disease) (Chronic) Coronary artery disease (Chronic 2006) Depression (Chronic 2008) Diabetes (Chronic 1994) Eczema (Chronic) Foot pain (Chronic) GERD (gastroesophageal reflux disease) (Chronic 2012) Gout (Resolved) Hyperlipidemia (Chronic) Hypertension (Chronic) Hypothyroidism (Chronic) Kidney disease (Chronic 2009) Measles (Resolved 1955) Measles (Resolved 1955) Mumps (Resolved 1958) Mumps (Resolved 1958) Neuropathy (Chronic) Obstructive sleep apnea (Chronic) Shoulder pain (Chronic) Status post myocardial infarction (Resolved) Strain of muscle of right groin region (Resolved 03/30/18) Well adult exam (Acute) Surgical History Anesthesia (Resolved) History of heart artery stent (Resolved 2006) History of heart artery stent (Resolved 2010) Hx of shoulder surgery (Resolved 2005) Family & Social History Family History Brother Age: 65 Diabetes mellitus Hyperlipidemia Mother Heart disease Hypertension Hyperlipidemia Diabetes mellitus Grandmother Diabetes mellitus Brother No problems noted. Sister Breast cancer Social History: household members spouse,other,children Safety & Behavioral: Feels Safe in Current Yes Environment Tobacco & Substance use: Tobacco type cigarettes Smoking Status Current every day smoker alcohol intake current alcohol intake frequency 0-2 drinks per day Substance Use Type marijuana Meds Home Medications and Allergies Home Medications Medication Instructions Recorded Confirmed Type pen needle, diabetic 29 gauge x #100 each 03/11/18 12/05/19 Rx 1/2 pen needle, diabetic 31 gauge x #100 each 09/09/18 12/05/19 Rx 5/16 acetaminophen 650 mg PO Q6HR PRN #30 tab 03/12/19 12/05/19 Rx ipratropium-albuterol 3 ml INH QID #360 ml 03/12/19 12/05/19 Rx nicotine 21 mg TOPICAL DAILY #30 ea 03/12/19 12/05/19 Rx atorvastatin 40 mg tablet 40 mg PO BEDTIME #90 tab 07/12/19 12/05/19 Rx citalopram 40 mg tablet 40 mg PO DAILY #90 tab 07/12/19 12/05/19 Rx metoprolol tartrate 25 mg tablet 25 mg PO BID #180 tab 08/02/19 12/05/19 Rx albuterol sulfate 90 mcg/actuation 2 puff INHALATION QID PRN #18 gram 08/10/19 12/05/19 Rx aerosol inhaler Disabled Parking Permit #1 ea 08/26/19 12/05/19 Rx bupropion HCl 150 mg tablet,12 hr 150 mg PO DAILY #30 each 09/02/19 12/05/19 Rx sustained-release gabapentin 300 mg capsule 900 mg PO BID #180 cap 09/28/19 12/05/19 Rx insulin aspart U-100 100 unit/mL 20 unit SUBCUT BIDWM #15 ml 09/28/19 12/05/19 Rx (3 mL) subcutaneous pen insulin glargine 100 unit/mL (3 80 unit SUBCUT BID #15 ml 09/28/19 12/05/19 Rx mL) subcutaneous pen Test strips #1 ea 10/10/19 12/05/19 Rx lancets #1 each 10/10/19 12/05/19 Rx oxycodone-acetaminophen 5 mg-325 1 tab PO Q8H PRN #30 tab 10/10/19 12/05/19 Rx mg tablet triamcinolone acetonide 0.1 % 1 applictn TOP DAILY #30 gram 10/10/19 12/05/19 Rx topical cream beclomethasone dipropionate 40 1 inhalation INHALATION BID #10.6 10/12/19 12/05/19 Rx mcg/actuation HFA breath activated gram aerosol isosorbide mononitrate 60 mg 60 mg PO QAM #90 tab 10/12/19 12/05/19 Rx tablet,extended release 24 hr meclizine 25 mg tablet 25 mg PO TID PRN #10 tab 10/12/19 12/05/19 Rx omeprazole 20 mg tablet,delayed 20 mg PO DAILY #30 tab 10/12/19 12/05/19 Rx release Glucometer #1 ea 10/17/19 12/05/19 Rx levothyroxine 50 mcg tablet 50 mcg PO QAM #90 tab 10/21/19 12/05/19 Rx lisinopril 2.5 mg tablet 2.5 mg PO QAM #30 tab 10/21/19 12/05/19 Rx insulin degludec 200 unit/mL (3 150 unit SUBCUT BEDTIME #9 ml 11/25/19 12/05/19 Rx mL) subcutaneous pen Allergies Allergy/AdvReac Type Severity Reaction Status Date / Time adhesive Allergy Mild REDNESS/ITC Verified 11/25/19 14:09 HINESS Review of Systems Review of Systems Narrative: All other systems reviewed with the patient and are negative unless otherwise stated. Exam Vital Signs (past 8 hours): - 12/05/19 06:49 12/05/19 09:34 12/05/19 10:00 Temperature 98.4 F Pulse Rate 68 62 63 Respiratory Rate 12 14 18 Blood Pressure 200/103 H Blood Pressure [R Arm] 171/88 H 175/93 H Pulse Oximetry 98 98 96 12/05/19 11:04 Temperature Pulse Rate 76 Respiratory Rate 20 Blood Pressure Blood Pressure [R Arm] 170/80 H Pulse Oximetry 99 Oxygen Delivery Method Room Air Narrative Exam Narrative: GENERAL APPEARANCE: Obese male, in no acute distress lying flat in hospital bed. SKIN: Inspection of the skin reveals no rashes, ulcerations or petechiae. Bilateral venous stasis changes are present. HEENT: NC/AT. Sclera anicteric. Mild posterior erythema, rhinorrhea. NECK: Supple and symmetric. There was no thyroid enlargement, and no tenderness, or masses were felt. No JVD. CHEST: Normal AP diameter and normal contour without any kyphoscoliosis. LUNGS: Auscultation of the lungs revealed expiratory wheezing throughout all lung pascual. Patient breathing comfortably in no respiratory distress. Speaks in full sentences. CARDIOVASCULAR: There was a regular rate and rhythm without any murmurs, gallops, rubs. Peripheral pulses were 2+ and symmetric. ABDOMEN: Soft and nontender with normal bowel sounds. No ascites was noted. MUSCULOSKELETAL: There was no tenderness or effusions noted. Muscle strength and tone were normal. EXTREMITIES: No cyanosis, clubbing or edema. NEUROLOGIC: Alert and oriented x 3. Somewhat flat affect. Strength is +5/5 in the Upper Extremities and Lower Extremities Bilaterally. Sensation to touch was normal. Objective Labs Result Diagrams: 12/05/19 07:13 12/05/19 07:13 Labs: Laboratory Results - last 24 hr 12/05/19 12/05/19 12/05/19 07:13 07:13 07:13 WBC 9.4 RBC 4.59 Hgb 14.5 Hct 41.5 MCV 90.3 MCH 31.6 MCHC 35.0 RDW 14.6 Plt Count 212 Neut % (Auto) 67.5 Lymph % (Auto) 23.5 L [place] % (Auto) 7.7 Eos % (Auto) 1.2 L Baso % (Auto) 0.1 Neut # (Auto) 6300 Lymph # (Auto) 2200 [place] # (Auto) 700 Eos # (Auto) 100 Baso # (Auto) 0 PT 13.3 H INR 1.2 APTT 31 D-Dimer Sodium 137 Potassium 3.4 Chloride 103 Carbon Dioxide 26 BUN 15 Creatinine 0.70 Estimated GFR > 60.0 BUN/Creatinine Ratio 21.4 Glucose 172 H Calcium 9.0 Total Bilirubin 0.6 AST 25 ALT 21 Alkaline Phosphatase 73 Total Creatine Kinase 183 H CK-MB (CK-2) 3.09 H CK-MB (CK-2) Rel Index 1.7 Troponin I < 0.012 NT-Pro-B Natriuret Pep Total Protein 7.2 Albumin 4.0 Globulin 3.2 Albumin/Globulin Ratio 1.3 Lipase 109 12/05/19 12/05/19 07:13 07:18 WBC RBC Hgb Hct MCV MCH MCHC RDW Plt Count Neut % (Auto) Lymph % (Auto) [place] % (Auto) Eos % (Auto) Baso % (Auto) Neut # (Auto) Lymph # (Auto) [place] # (Auto) Eos # (Auto) Baso # (Auto) PT INR APTT D-Dimer < 200 Sodium Potassium Chloride Carbon Dioxide BUN Creatinine Estimated GFR BUN/Creatinine Ratio Glucose Calcium Total Bilirubin AST ALT Alkaline Phosphatase Total Creatine Kinase CK-MB (CK-2) CK-MB (CK-2) Rel Index Troponin I NT-Pro-B Natriuret Pep 288 H Total Protein Albumin Globulin Albumin/Globulin Ratio Lipase Assessment & Plan Assessment & Plan narrative: Carlos Randall is a 63-year-old male with past medical history significant for coronary artery disease status post coronary stents x2, hypertension, hyperlipidemia, diabetes mellitus type 2, insulin using, poorly controlled, chronic kidney disease stage 2, significant alcoholism without history of withdrawal who presented for chest pain 1. Acute on chronic chest pain, present on admission, active -will evaluate for ACS. Differential includes pericardial pathology, lung pathologies including COPD exacerbation or upper respiratory infection, and musculoskeletal pain, or GERD. Chest x-ray is negative. -patient with known history CAD, uncontrolled diabetes, and hypertension. His blood pressures are elevated and chest pain may be in the setting poorly controlled hypertension. His initial troponin was negative. He had a recent stress test back in July which showed a new fixed defect but Cardiology did not want to perform any interventions. It is unlikely that his current chest pain is related to ACS. His EKG is unchanged from previous studies. -repeat troponin at 1:30 p.m. along with EKG -will obtain respiratory panel to evaluate for possible infectious etiologies. -resume patient's home antihypertensive medications to reduce blood pressure. Acute blood pressure elevation likely secondary to anxiety and pain the patient was experiencing on arrival. Blood pressures have mildly improved on arrival to the floor. -continue home PPI, Maalox as needed -consider cardiology consultation pending above workup, however at this time does not appear to be cardiac in nature. 2. COPD, present on admission, active - with mild expiratory wheezes on exam but had not taken his daily COPD medications. This does not likely represent a COPD exacerbation. -continue inhaled nebulizers b.i.d. -respiratory therapy eval and treat -albuterol as needed -consider steroids if no improvement after initial therapies -viral panel as noted above 3. Alcohol abuse, chronic, present on admission. Stable. -Patient denies any history of alcohol withdrawal, DTs or alcohol withdrawal seizure. -Patient readily admits to drinking 2.5 gal of whiskey per week in the past. Patient has not gone prolonged amount of time without alcohol. -monitor for signs and symptoms of withdrawal 4. Coronary artery disease status post stenting x2, chronic, present on admission. Presume stable. -Continue atorvastatin 40 mg daily at bedtime, Imdur 60 mg daily, furosemide 20 mg IV twice daily as above, lisinopril 2.5 mg daily, and metoprolol tartrate 25 mg twice daily. -Patient is not on aspirin possibly due to alcoholism and potential underlying liver disease? 5. Hypertension, chronic, present on admission. Stable. -Continue Imdur 60 mg daily, furosemide 20 mg IV twice daily as above, lisinopril 2.5 mg daily, and metoprolol tartrate 25 mg twice daily. 6. Hyperlipidemia, chronic, present on admission. Stable. -Continue atorvastatin 40 mg daily at bedtime. 7. Diabetes mellitus type 2, insulin using, present on admission. Stable. -Most recent hemoglobin A1c was 10.5% 09/2018. Ordered repeat hemoglobin A1c, pending. -Continue Lantus 80 units twice daily. -Continue [facility] blood glucose checks and high-dose correctional scale insulin. -Ordered heart healthy/carbohydrate consistent diet. -Continue gabapentin 300 mg twice daily. 8. Chronic kidney disease stage 2, present on admission. Stable. -Patient reports chronic stage 2 kidney disease. GFR and creatinine within normal limits. Will calculate creatinine clearance. -Continue to avoid nephrotoxic agents. -Continue to monitor creatinine periodically. 9. Hypothyroidism, chronic, present on admission. Stable. -Continue levothyroxine 50 mcg daily. 10. . Depression, chronic, present on admission. Stable. -Continue citalopram 40 mg daily. 11. Tobacco dependence, chronic, present on admission. Stable. -Ordered nicotine patch 21 mg daily as needed for nicotine withdrawal. 13. Obstructive sleep apnea not on CPAP, chronic, present on admission. Stable. -Encouraged compliance with CPAP and discussed effects of untreated KATI. -Ordered CPAP per RT protocol. Patient is admitted under observation status. Code: Full
[2019-12-05] MEDS: MORPHINE 4 MG/ML INJ IV ×3 (12:29→21:09)
[2019-12-05] MEDS: SODIUM CHLORIDE 0.9% FLUSH 10 ML IV ×2 (12:29→22:14)
[2019-12-05] MEDS: METOPROLOL IR 25 MG TABLET PO ×2 (12:29→21:11)
[2019-12-05 14:31] LABS: Troponin I < 0.012 ng/mL (0.01-0.034)
[2019-12-05] MEDS: ALBUTEROL 2.5 MG/3 ML NEB (ADULT) INH (14:39)
[2019-12-05 16:17] LABS: Adenovirus Not Detected (Not Detect); Bordetella pertussis Not Detected (Not Detect); Chlamydophila pneumoniae Not Detected (Not Detect); Coronavirus 229E Not Detected (Not Detect); Coronavirus HKU1 Not Detected (Not Detect); Coronavirus NL 63 Not Detected (Not Detect); Coronavirus OC43 Not Detected (Not Detect); Human Metapneumovirus Not Detected (Not Detect); Human Rhinovirus/Enterovirus Not Detected (Not Detect); Influenza A Not Detected (Not Detect); Influenza B Not Detected (Not Detect); Mycoplasma pneumoniae Not Detected (Not Detect); Parainfluenza Virus 1 Not Detected (Not Detect); Parainfluenza Virus 2 Not Detected (Not Detect); Parainfluenza Virus 3 Not Detected (Not Detect); Parainfluenza Virus 4 Not Detected (Not Detect); Respiratory Syncytial Virus Not Detected (Not Detect)
--- NOTE | 2019-12-05 20:12 | PC.NURSE ---
Advised [employer]ALUATION MANAGER Efrem that patient has not voided since he arrived on unit at approx 0700. She advised we push po fluids.
[2019-12-05 20:53] LABS: Troponin I 0.019 ng/mL (0.01-0.034)
[2019-12-05] MEDS: INSULIN ASPART 100 UNIT/ML INSULN PEN SUBCUT (21:02)
[2019-12-05] MEDS: ATORVASTATIN 20 MG TABLET 40 MG PO (21:10)
[2019-12-05] MEDS: ALBUTEROL/IPRATROPIUM 3 ML AMPUL INH (21:10)
[2019-12-05] MEDS: GABAPENTIN 300 MG CAPSULE 900 MG PO (21:11)
[2019-12-05] MEDS: HEPARIN 5,000 UNIT/ML VIAL 5000 UNIT SUBCUT (21:11)
[2019-12-05] MEDS: INSULIN GLARGINE 100 UNIT/ML 3ML PEN 80 UNIT SUBCUT (21:12)
[2019-12-05] MEDS: diphenhydrAMINE 25 MG TABLET PO (23:41)
[2019-12-06 05:30] VITALS: BP 146/85; PULSE 58; RESP 18; TEMP 36.4; O2SAT 98
[2019-12-06 05:54] LABS: Add Manual Diff / Slide Review NO; Basophils Absolute Auto 0 /uL (0-100); Basophils Percent Auto 0.1 % (0-2); Eosinophils Absolute Auto 200 /uL (0-450); Eosinophils Percent Auto 2.1 % (2-4); Hematocrit 43.3 % (41-53); Hemoglobin 14.8 g/dL (13.5-17.5); Lymphocytes Absolute Auto 1800 /uL (1100-4500); Lymphocytes Percent Auto 22.2 % (25-40); Mean Corpuscular HGB Conc 34.3 % (30-36); Mean Corpuscular Hemoglobin 31.8 PG (26-34); Mean Corpuscular Volume 92.9 fL (80-100); Monocytes Absolute Auto 700 /uL (0-900); Monocytes Percent Auto 8.6 % (3-14); Neutrophils Absolute Auto 5500 /uL (1500-7000); Platelet Count 214 X10^3/uL (150-400); Red Blood Cell Count 4.66 X10^6/uL (4.5-5.9); Red Cell Distribution Width 14.7 % (11.6-14.8); White Blood Cell Count 8.2 X10^3/uL (4.5-11.0)
[2019-12-06] MEDS: LEVOTHYROXINE 50 MCG TABLET PO (05:57)
[2019-12-06] MEDS: PANTOPRAZOLE 20 MG TABLET PO (05:57)
[2019-12-06 06:00] LABS: BUN Creatinine Ratio 18.9 (6-22); Blood Urea Nitrogen 17 mg/dL (9-20); Calcium 8.8 mg/dL (8.4-10.2); Carbon Dioxide 29 mmol/L (22-32); Chloride 101 mmol/L (98-107); Estimated Glomerular Filt Rate > 60.0 mL/min (>60); Glucose 141 mg/dL (80-110); HEMOLYSIS < 15 (0-50); Magnesium 1.7 mg/dL (1.6-2.3); Potassium 4.2 mmol/L (3.4-5.1); Sodium 136 mmol/L (137-145)
[2019-12-06] MEDS: ACETAMINOPHEN 325 MG TABLET 650 MG PO (06:01)
[2019-12-06 06:10] LABS: Troponin I < 0.012 ng/mL (0.01-0.034)
[2019-12-06 07:27] VITALS: BP 177/70; PULSE 57; RESP 15; TEMP 36.7; O2SAT 97
[2019-12-06] MEDS: ISOSORBIDE MONONITRATE ER 30 MG TABLET 60 MG PO (08:53)
[2019-12-06] MEDS: METOPROLOL IR 25 MG TABLET PO (08:53)
[2019-12-06] MEDS: GABAPENTIN 300 MG CAPSULE 900 MG PO (08:54)
[2019-12-06] MEDS: lisinopriL 5 MG TABLET 2.5 MG PO (08:54)
[2019-12-06] MEDS: CITALOPRAM 20 MG TABLET 40 MG PO (08:54)
[2019-12-06] MEDS: buPROPion SR 150 MG TAB PO (08:55)
[2019-12-06] MEDS: HEPARIN 5,000 UNIT/ML VIAL 5000 UNIT SUBCUT (08:55)
[2019-12-06] MEDS: NICOTINE 21 MG PATCH TOP (08:56)
[2019-12-06] MEDS: SODIUM CHLORIDE 0.9% FLUSH 10 ML IV (08:57)
[2019-12-06] MEDS: INSULIN GLARGINE 100 UNIT/ML 3ML PEN 80 UNIT SUBCUT (09:14)
[2019-12-06] MEDS: ALBUTEROL/IPRATROPIUM 3 ML AMPUL INH (09:26)
--- NOTE | 2019-12-06 09:26 | PC.NURSE ---
Addendum entered by Victoria Ramos R.N. 12/06/19 09:32: Original Note: Patient alert, c/o chest pain, described as an ache, MD aware, order for toradol. BG 102, per Dr Conrad hold scheduled 20units or novolog but patient given ordered lantus dose.
[2019-12-06] MEDS: KETOROLAC 10 MG TABLET PO (09:39)
[2019-12-06 11:54] VITALS: BP 136/76; PULSE 55; RESP 18; TEMP 36.7; O2SAT 96
--- NOTE | 2019-12-06 12:01 | PM.DS.1 ---
History of Present Illness History of Present Illness Date Patient Seen: 12/06/19 Time Patient Seen: 11:15 Chief complaint: Chest pain Narrative: Carlos Randall is a 63-year-old male with past medical history significant for coronary artery disease status post coronary stents x2, hypertension, hyperlipidemia, diabetes mellitus type 2, insulin using, poorly controlled, chronic kidney disease stage 2, significant alcoholism without history of withdrawal who presented for left-sided chest pain that started now 2 days ago. Chest pain is described as 6 to 7/10, pressure-like, radiating into his left shoulder. It is worse with inspiration and coughing. He does not note any alleviating factors, did not try anything at home. He was given nitro which did not seem to help with his pain. Morphine helped slightly but did not fully relieve his pain. He has mild shortness of breath, recent rhinorrhea and headaches. He denies fever but endorses subjective chills. He denies productive cough. Discharge Providers Provider Date of admission: 12/05/19 10:16 Discharge Date: 12/06/19 Primary care physician: Gasper Rutherford DO Consults: 12/05/19 11:38 Consult to Respiratory Therapy Evaluate & Treat Comment: Physician Instructions: Evaluate and treat Discharge provider: Dom Conrad DO Summary Hospital Course Discharge Diagnosis: 1. Acute on chronic chest pain, present on admission, resolved - 2. COPD, present on admission, active - 3. Alcohol abuse, chronic, present on admission. Stable. 4. Coronary artery disease status post stenting x2, chronic, present on admission. Presume stable. 5. Hypertension, chronic, present on admission. Stable. 6. Hyperlipidemia, chronic, present on admission. Stable. 7. Diabetes mellitus type 2, insulin using, present on admission. Stable. 8. Chronic kidney disease stage 2, present on admission. Stable. 9. Hypothyroidism, chronic, present on admission. Stable. 10. . Depression, chronic, present on admission. Stable. 13. Obstructive sleep apnea not on CPAP, chronic, present on admission. Stable. Hospital Course: Carlos Randall is a 63-year-old male with past medical history significant for coronary artery disease status post coronary stents x2, hypertension, hyperlipidemia, diabetes mellitus type 2, insulin using, poorly controlled, chronic kidney disease stage 2, significant alcoholism without history of withdrawal who presented for chest pain. He was ruled out for ACS and his symptoms improved. Patient was discharged home. 1. Acute on chronic chest pain, present on admission, resolved - -patient with known history CAD, uncontrolled diabetes, and hypertension as well as stable angina on imdur. He had a recent stress test back in July which showed a new fixed defect but Cardiology did not want to perform any interventions. Did discuss the case briefly with his commercial subcontractor Dr. Valenzuela, who, given negative troponins, recent stress imaging, and improved symptoms agreed with no further evaluation. -respiratory panel negative. -resume patient's home antihypertensive medications. Acute blood pressure elevation likely secondary to anxiety and pain the patient was experiencing on arrival. Blood pressures mildly improved on the floor. Further titration with PMD. -continue home PPI -Chest pain is most likely musculoskeletal given recent shoulder complaints. Patient can continue home opiate medications and reports PT referral. 2. COPD, present on admission, active - with mild expiratory wheezes on exam but had not taken his daily COPD medications. This does not likely represent a COPD exacerbation. -no changes were made in his home regimen. 3. Alcohol abuse, chronic, present on admission. Stable. -Patient denies any history of alcohol withdrawal, DTs or alcohol withdrawal seizure. -Patient readily admits to drinking 2.5 gal of whiskey per week in the past. Patient has not gone prolonged amount of time without alcohol. -no evidence of withdrawal while admitted. 4. Coronary artery disease status post stenting x2, chronic, present on admission. Presume stable. -Continue atorvastatin 40 mg daily at bedtime, Imdur 60 mg maryellen, lisinopril daily, and metoprolol tartrate 25 mg twice daily. -Patient is not on aspirin possibly due to alcoholism and potential underlying liver disease? 5. Hypertension, chronic, present on admission. Stable. -Continue Imdur 60 mg daily,lisinopril, and metoprolol tartrate 25 mg twice daily. 6. Hyperlipidemia, chronic, present on admission. Stable. -Continue atorvastatin 40 mg daily at bedtime. 7. Diabetes mellitus type 2, insulin using, present on admission. Stable. -Most recent hemoglobin A1c was 10.5% 09/2018. -Continue Lantus 80 units twice daily. Patient has not switched to tresiba as of this time. -Continue ACHS blood glucose checks and high-dose correctional scale insulin. -Ordered heart healthy/carbohydrate consistent diet. -Continue gabapentin 300 mg twice daily. 8. Chronic kidney disease stage 2, present on admission. Stable. -Patient reports chronic stage 2 kidney disease. GFR and creatinine within normal limits. 9. Hypothyroidism, chronic, present on admission. Stable. -Continue levothyroxine 50 mcg daily. 10. . Depression, chronic, present on admission. Stable. -Continue citalopram 40 mg daily. 11. Tobacco dependence, chronic, present on admission. Stable. -Ordered nicotine patch 21 mg daily as needed for nicotine withdrawal. 13. Obstructive sleep apnea not on CPAP, chronic, present on admission. Stable. -Encouraged compliance with CPAP and discussed effects of untreated KATI. Exam Vital Signs (past 8 hours): - 12/06/19 05:30 12/06/19 07:27 Temperature 97.6 F 98.1 F Pulse Rate 58 L 57 L Respiratory Rate 18 15 Blood Pressure 146/85 H 177/70 H Pulse Oximetry 98 97 Oxygen Delivery Method Room Air Oxygen Flow Rate 0 Narrative Exam Narrative: GENERAL APPEARANCE: Obese male, in no acute distress lying flat in hospital bed. SKIN: Inspection of the skin reveals no rashes, ulcerations or petechiae. Bilateral venous stasis changes are present. HEENT: NC/AT. Sclera anicteric. Mild posterior erythema, rhinorrhea. NECK: Supple and symmetric. There was no thyroid enlargement, and no tenderness, or masses were felt. No JVD. CHEST: Normal AP diameter and normal contour without any kyphoscoliosis. LUNGS: Auscultation of the lungs revealed expiratory wheezing throughout all lung pascual. Patient breathing comfortably in no respiratory distress. Speaks in full sentences. CARDIOVASCULAR: There was a regular rate and rhythm without any murmurs, gallops, rubs. Peripheral pulses were 2+ and symmetric. ABDOMEN: Soft and nontender with normal bowel sounds. No ascites was noted. MUSCULOSKELETAL: There was no tenderness or effusions noted. Muscle strength and tone were normal. EXTREMITIES: No cyanosis, clubbing or edema. NEUROLOGIC: Alert and oriented x 3. Somewhat flat affect. Strength is +5/5 in the Upper Extremities and Lower Extremities Bilaterally. Sensation to touch was normal. Objective Labs Result Diagrams: 12/06/19 05:25 12/06/19 05:25 Labs: Laboratory Results - last 24 hr 12/05/19 12/05/19 12/05/19 07:18 14:55 20:25 WBC RBC Hgb Hct MCV MCH MCHC RDW Plt Count Neut % (Auto) Lymph % (Auto) [place] % (Auto) Eos % (Auto) Baso % (Auto) Neut # (Auto) Lymph # (Auto) [place] # (Auto) Eos # (Auto) Baso # (Auto) Sodium Potassium Chloride Carbon Dioxide BUN Creatinine Estimated GFR BUN/Creatinine Ratio Glucose Calcium Magnesium Troponin I < 0.012 0.019 Chlamy pneumoniae PCR Not detected Adenovirus (PCR) Not detected B.parapertussis DNA PCR Not detected Coronavirus OC43 (PCR) Not detected Coronavirus HKU1 (PCR) Not detected Coronavirus 229E (PCR) Not detected Coronavirus NL63 (PCR) Not detected Human Metapneumovir PCR Not detected Influenza Type A (PCR) Not detected Influenza Type B (PCR) Not detected M. pneumoniae (PCR) Not detected Parainfluenza 1 (PCR) Not detected Parainfluenza 2 (PCR) Not detected Parainfluenza 3 (PCR) Not detected Parainfluenza 4 (PCR) Not detected RSV (PCR) Not detected Entero/Rhino (PCR) Not detected 12/06/19 12/06/19 12/06/19 05:25 05:25 05:25 WBC 8.2 RBC 4.66 Hgb 14.8 Hct 43.3 MCV 92.9 MCH 31.8 MCHC 34.3 RDW 14.7 Plt Count 214 Neut % (Auto) 67.0 Lymph % (Auto) 22.2 L [place] % (Auto) 8.6 Eos % (Auto) 2.1 Baso % (Auto) 0.1 Neut # (Auto) 5500 Lymph # (Auto) 1800 [place] # (Auto) 700 Eos # (Auto) 200 Baso # (Auto) 0 Sodium 136 L Potassium 4.2 Chloride 101 Carbon Dioxide 29 BUN 17 Creatinine 0.90 Estimated GFR > 60.0 BUN/Creatinine Ratio 18.9 Glucose 141 H Calcium 8.8 Magnesium 1.7 Troponin I < 0.012 Chlamy pneumoniae PCR Adenovirus (PCR) B.parapertussis DNA PCR Coronavirus OC43 (PCR) Coronavirus HKU1 (PCR) Coronavirus 229E (PCR) Coronavirus NL63 (PCR) Human Metapneumovir PCR Influenza Type A (PCR) Influenza Type B (PCR) M. pneumoniae (PCR) Parainfluenza 1 (PCR) Parainfluenza 2 (PCR) Parainfluenza 3 (PCR) Parainfluenza 4 (PCR) RSV (PCR) Entero/Rhino (PCR) Discharge Plan Discharge Plan Patient Disposition: Home Discharge comment: Your admitted to the hospital with chest pain. He will ruled out for a heart attack. Discussed with her commercial subcontractor in given your recent stress testing and low likelihood for cardiac ischemia your being discharged home. You should follow-up with her primary care provider in the next 1-2 weeks. It is likely that your chest pain is musculoskeletal in nature. You can continue taking the narcotic pain meds that were given to you previously. Please attempt to use Motrin or ibuprofen at home, along with Tylenol. Please use your narcotic medication sparingly, and continue physical therapy. Discharge orders & Medications Prescriptions: New Lantus Solostar U-100 Insulin 100 unit/mL (3 mL) Insulin Pen 80 unit subcut BID 30 Days Qty: 48 RF: 0 Continued (DME) pen needle, diabetic [Comfort EZ Pen [place]] 29 gauge x 1/2 needle See Dose Instructions .ROUTE .MEDSUPPLY Qty: 100 RF: 0 (DME) pen needle, diabetic [Comfort EZ Pen [place]] 31 gauge x 5/16 needle See Dose Instructions .ROUTE .MEDSUPPLY Qty: 100 RF: 3 atorvastatin 40 mg tablet 40 mg PO BEDTIME Qty: 90 RF: 0 citalopram [Celexa] 40 mg tablet 40 mg PO DAILY Qty: 90 RF: 0 metoprolol tartrate 25 mg tablet 25 mg PO BID Qty: 180 RF: 0 (DME) Disabled Parking Permit Qty: 1 RF: 0 bupropion HCl [Wellbutrin SR] 150 mg tablet sustained-release 12 hr 150 mg PO DAILY Qty: 30 RF: 1 gabapentin 300 mg capsule 900 mg PO BID Qty: 180 RF: 0 beclomethasone dipropionate 40 mcg/actuation HFA aerosol breath activated 1 inhalation Inhalation BID Qty: 10.6 RF: 5 isosorbide mononitrate 60 mg tablet extended release 24 hr 60 mg PO QAM Qty: 90 RF: 0 meclizine 25 mg tablet 25 mg PO TID PRN (Reason: dizziness) Qty: 10 RF: 0 omeprazole 20 mg tablet,delayed release (DR/EC) 20 mg PO DAILY Qty: 30 RF: 0 (DME) Glucometer Qty: 1 RF: 0 levothyroxine [Synthroid] 50 mcg tablet 50 mcg PO QAM Qty: 90 RF: 0 lisinopril 2.5 mg tablet 2.5 mg PO QAM Qty: 30 RF: 1 Novolog Flexpen U-100 Insulin 100 unit/mL (3 mL) insulin pen See Rx Instructions SUBCUT .COMPLEX Qty: 15 RF: 1 albuterol sulfate [Proventil HFA] 90 mcg/actuation HFA aerosol inhaler 2 puff INHALATION QID PRN (Reason: shortness of breath) Qty: 18 RF: 5 triamcinolone acetonide 0.1 % cream 1 applictn TOP DAILY Qty: 30 RF: 5 oxycodone-acetaminophen [Percocet] 5-325 mg tablet 1 tab PO Q8H PRN (Reason: pain) Qty: 30 RF: 0 (DME) lancets Qty: 1 RF: 4 (DME) Test strips Qty: 1 RF: 4 Tresiba FlexTouch U-200 200 unit/mL (3 mL) insulin pen 150 unit SUBCUT BEDTIME Qty: 9 RF: 0 acetaminophen 325 mg Tablet 650 mg PO Q6HR PRN (Reason: As Needed For Fever/Mild Pain) Qty: 30 RF: 0 ipratropium-albuterol 0.5 mg-3 mg(2.5 mg base)/3 mL Solution For Nebulization 3 ml INH QID Qty: 360 RF: 0 nicotine 21 mg/24 hr Patch 24 Hour 21 mg topical DAILY Qty: 30 RF: 0 Follow up/Referrals: Gasper Rutherford, [Primary Care Provider] - Diet/Activity/Treatments Diet: Diet as Tolerated and Low-sodium Activity: As tolerated Visit Report/Discharge Packet Instructions: Type 2 Diabetes, Heart Failure, Diabetic Neuropathy, DI for Prescription Opioid Use, Insulin Glargine (By injection) Discharge Data Primary Care Provider: Gasper Rutherford Attending Provider: Dom Conrad Admit Date/Time: 12/05/19 10:16 Discharges patient from system. Discharge Date/Time: 12/06/19 16:25 Quality VTE Deep Vein Thrombosis/Pulmonary Embolism Present on Admission: No
--- NOTE | 2019-12-06 14:58 | CM.DANOTE ---
Discharge Planning/Care Management DCP: assessment: case received, EMR reviewed. d/c to home setting noted. Met now with pt after conferring with RN Victoria Mancini who notes no concerns re the d/c today on her end. Introduced self and role. Pt is found just coming out of bathroom with [employer]INE[employer] supervision. Introduced self and role. Pt is 64 year old male who admitted yesterday to care of hospitalist team. He is aware of d/c today and says he feels comfortable with same. His daughter in law Asuncion Randall/Jammie will pick him up at about 1630. Payer: [facility]. Pt also confirms he has Medicare but [facility]. Pt does say he went to [facility] under his Medicare benefit several months ago and they were real good there. If I ever need rehab again I would definitely go there. P: home today, clinic followup. PCP: Gasper Rutherford: [facility]. Discharge Assessment Start: 12/06/19 14:56 Freq: Status: Active Protocol: Document 12/06/19 14:57 ITV (Rec: 12/06/19 14:58 ITV [id number]) Discharge Planning Assessment Advance Directives? No Advance Directives on File No History Provided By Patient,Medical Record Prior Living Arrangements House Review Status In Process
== END 2019-12-06 16:25 | disposition home or self-care (01) ==
LOC: ED 10:11 → AC 10:17
PROVIDERS: Emergency Medicine; Nurse Practitioner Family; Admitting Provider Internal Medicine; Emergency Provider Emergency Medicine; PCP Family Medicine; Visit Provider Internal Medicine
DX: R07.9 Chest pain, unspecified (principal); J44.9 Chronic obstructive pulmonary disease, unspecified; F10.20 Alcohol dependence, uncomplicated; I25.10 Atherosclerotic heart disease of native coronary artery without angina pectoris; I10 Essential (primary) hypertension; E78.5 Hyperlipidemia, unspecified; E11.9 Type 2 diabetes mellitus without complications; Z79.4 Long term (current) use of insulin; N18.2 Chronic kidney disease, stage 2 (mild); E03.9 Hypothyroidism, unspecified; F32.9 Major depressive disorder, single episode, unspecified; Z72.0 Tobacco use; G47.33 Obstructive sleep apnea (adult) (pediatric)
CPT/HCPCS: 36415; 71045; 80048; 80053; 82550; 82553; 82962; 83690; 83735; 83880; 84484; 85025; 85379; 85610; 85730; 87633; 93005; 94640; 96372; 96374; 96375; 96376; 99284; 99285; G0378; J1644; J1885; J2270; J7613

== ENCOUNTER 2019-12-11 03:04 | Emergency (ER) | payer MEDICARE, OTHER, SELFPAY ==
[2019-12-05 12:43] VITALS: BMI 32.3
[2019-12-11] VITALS (15 sets, daily range): BP systolic 82–165; BP diastolic 53–79; PULSE 51–86; RESP 10–23; TEMP 37; O2SAT 93–99; BMI 32.3
--- NOTE | 2019-12-11 03:26 | DI.RAD.S_ITS ---
PROCEDURE: XR CHEST 1V INDICATIONS: chest pain TECHNIQUE: One view of the chest was acquired. COMPARISON: [facility], CR, XR CHEST 1V, 12/05/2019, 7:15. FINDINGS: Surgical changes and devices: An orthopedic screws evident overlying the left humeral head. Lungs and pleura: Lungs are clear. No pleural effusions or pneumothorax. Mediastinum: Mediastinal contours appear normal. Heart size is normal. Bones and chest wall: No suspicious bony lesions. Overlying soft tissues appear unremarkable. IMPRESSION: No acute cardiopulmonary process is evident. Dictated by: Abelardo Rodriguez M.D. on 12/11/2019 at 7:45 Approved by: Abelardo Rodriguez M.D. on 12/11/2019 at 7:46
--- NOTE | 2019-12-11 03:41 | ED_ITS ---
HPI - Nausea/Vomiting/Diarrhea <Brandon Pinto MD - Last Filed: 12/11/19 19:50> General Chief complaint: Nausea/Vomiting/Diarrhea Stated complaint: Chest Pain Time Seen by Provider: 12/11/19 03:16 History of Present Illness HPI Narrative: CC: Diarrhea, nausea and vomiting HPI: Patient is a 64-year-old male was a very poor historian. He comes into the emergency department complaining of diarrhea which started this morning when he woke up. The patient states that he had an accident in his [facility] and was incontinent of stool. He states that he was fine when he went to bed last night. The patient has had multiple episodes of diarrhea without any blood or melena. He has been it intensely nauseous with intermittent vomiting. He has had diffuse abdominal cramps. He states that he developed chest pain about 3- 1/2 hours ago. He admits to a history of COPD and states that in 2006 he had a myocardial infarction with 2 stents. He denies any history of congestive heart failure. He admits however 2 history of hypertension and diabetes mellitus. He states that he just was discharged from the hospital at [facility] on Thursday for a questionable stroke. He states that he could not talk at that time. He was informed that his CT scan of revealed multiple small strokes which I presume were lacunar strokes. The patient states that he has had chills but has had no fever sweats or headache. While we were talking he started complaining of chest pain and d escribes it as an achy pressure that radiates to his shoulder but not to his neck or jaw. He has had no palpitations but has felt dizzy and lightheaded. He has had a dry and productive cough and has had shortness of breath. He denies a history of phlebitis or ever being told that he had pulmonary emboli. He has been nauseous but has had no significant vomiting. He has had no hematemesis coffee-ground emesis. He has had diarrhea without melena or hematochezia. He has had no urinary symptoms. The patient admits to smoking cigarettes drinking alcohol and smoking marijuana but does not use any drugs. As I was leaving the room the patient states that he needed something for the pain and was insisting on arm asked for morphine. [id number] I discussed the patient's history and lab results with narrow gauge operator at [facility]. He states that with thumb all the tests that have recently been done and 2-troponins arm this is not acute coronary syndrome. He does not need to be admitted here at [facility] and perform a stress test on Thursday. The patient will be started on Protonix IV and administered a GI cocktail. Patient's lipase is ninety-seven. [address] Coffman has been called to admit. Related Data Previous Rx's Medication Instructions Recorded pen needle, diabetic 29 gauge x #100 each 03/11/1811/03 pen needle, diabetic 31 gauge x #100 each 09/09/1803/17 acetaminophen 650 mg PO Q6HR PRN #30 tab 03/12/19 ipratropium-albuterol 3 ml INH QID #360 ml 03/12/19 nicotine 21 mg TOPICAL DAILY #30 ea 03/12/19 atorvastatin 40 mg tablet 40 mg PO BEDTIME #90 tab 07/12/19 citalopram 40 mg tablet 40 mg PO DAILY #90 tab 07/12/19 metoprolol tartrate 25 mg tablet 25 mg PO BID #180 tab 08/02/19 Disabled Parking Permit #1 ea 08/26/19 bupropion HCl 150 mg tablet,12 hr 150 mg PO DAILY #30 each 09/02/19 sustained-release gabapentin 300 mg capsule 900 mg PO BID #180 cap 09/28/19 Test strips #1 ea 10/10/19 lancets #1 each 10/10/19 oxycodone-acetaminophen 5 mg-325 1 tab PO Q8H PRN #30 tab 10/10/19 mg tablet triamcinolone acetonide 0.1 % 1 applictn TOP DAILY #30 gram 10/10/19 topical cream beclomethasone dipropionate 40 1 inhalation INHALATION BID #10.6 10/12/19 mcg/actuation HFA breath activated gram aerosol isosorbide mononitrate 60 mg 60 mg PO QAM #90 tab 10/12/19 tablet,extended release 24 hr meclizine 25 mg tablet 25 mg PO TID PRN #10 tab 10/12/19 omeprazole 20 mg tablet,delayed 20 mg PO DAILY #30 tab 10/12/19 release Glucometer #1 ea 10/17/19 levothyroxine 50 mcg tablet 50 mcg PO QAM #90 tab 10/21/19 lisinopril 2.5 mg tablet 2.5 mg PO QAM #30 tab 10/21/19 insulin degludec 200 unit/mL (3 150 unit SUBCUT BEDTIME #9 ml 11/25/19 mL) subcutaneous pen albuterol sulfate 90 mcg/actuation 2 puff INHALATION QID PRN #18 gram 12/05/19 aerosol inhaler insulin aspart U-100 100 unit/mL See Rx Instructions SUBCUT 12/05/19 (3 mL) subcutaneous pen .COMPLEX #15 ml insulin glargine [Lantus Solostar 80 unit SUBCUT BID 30 Days #48 ml 12/06/19 U-100 Insulin] Allergies Allergy/AdvReac Type Severity Reaction Status Date / Time adhesive Allergy Mild REDNESS/ITC Verified 11/25/19 14:09 HINESS Review of Systems <Brandon Pinto MD - Last Filed: 12/11/19 19:50> Review of Systems ROS Unobtainable: All systems reviewed & are unremarkable except as noted in HPI and below Patient History <Brandon Pinto MD - Last Filed: 12/11/19 19:50> Medical History Chicken pox (Resolved 1956) Chickenpox (Resolved 1956) Chronic cough (Chronic) COPD (chronic obstructive pulmonary disease) (Chronic) Coronary artery disease (Chronic 2006) Depression (Chronic 2008) Diabetes (Chronic 1994) Eczema (Chronic) Foot pain (Chronic) GERD (gastroesophageal reflux disease) (Chronic 2012) Gout (Resolved) Hyperlipidemia (Chronic) Hypertension (Chronic) Hypothyroidism (Chronic) Kidney disease (Chronic 2009) Measles (Resolved 1955) Measles (Resolved 1955) Mumps (Resolved 1958) Mumps (Resolved 1958) Neuropathy (Chronic) Obstructive sleep apnea (Chronic) Shoulder pain (Chronic) Status post myocardial infarction (Resolved) Strain of muscle of right groin region (Resolved 03/30/18) Well adult exam (Acute) Surgical History Anesthesia (Resolved) History of heart artery stent (Resolved 2006) History of heart artery stent (Resolved 2010) Hx of shoulder surgery (Resolved 2005) Family History Brother Age: 65 Diabetes mellitus Hyperlipidemia Mother Heart disease Hypertension Hyperlipidemia Diabetes mellitus Grandmother Diabetes mellitus Brother No problems noted. Sister Breast cancer Social History household members: children and other Smoking Status: Current every day smoker Tobacco: How many years used: 45 alcohol intake: current Smoking Status: Current every day smoker alcohol intake frequency: 0-2 drinks per day Substance Use Type: marijuana Exam <Brandon Pinto MD - Last Filed: 12/11/19 19:50> Narrative Exam Narrative: PHYSICAL EXAM: CONSTITUTIONAL: Awake, poor historian that intermittently appears to be quiet before responding and staring at the ceiling. Cooperative in NAD. Does not appear toxic or ill. HEAD: AT/NC EENT: PERRL, FROM of eyes, no discharge, no nystagmus Oral mucosa is moist and pink, posterior pharynx is without erythema or exudate. NECK: Supple, no obvious JVD, Trachea is midline without stridor, no palpable LN or masses. SPINE: No gross deformity, no palpable tenderness of the cervical, thoracic, lumbar or sacral spine. No CVA tenderness. THORAX: No deformity, retractions, chest wall tenderness, subcutaneous air or crepitice. LUNGS: Clear with symmetrical breath sounds without respiratory distress HEART: Normal heart tones, regular rhythm and rate without murmur. ABDOMEN: The patient's abdomen is soft and mildly tender in all 4 quadrants without any specific guarding or rebound noted. There was no palpable organomegaly. EXTREMITIES: No edema, cyanosis, deformity or tenderness. SKIN: No rash, bruising, petechiae or purpura. NEURO: Awake, conversive, cranial nerves II-XII are symmetrical and normal, moves all 4 extremities and is ambulatory Initial Vital Signs Initial Vital Signs: Vital Signs Temperature 98.6 F 12/11/19 03:35 Pulse Rate 54 L 12/11/19 03:35 Respiratory Rate 16 12/11/19 03:35 Blood Pressure 160/79 H 12/11/19 03:35 Pulse Oximetry 99 12/11/19 03:35 <Josephine Lynn DO - Last Filed: 12/11/19 11:13> Initial Vital Signs Initial Vital Signs: Vital Signs Temperature 98.6 F 12/11/19 03:35 Pulse Rate 54 L 12/11/19 03:35 Respiratory Rate 16 12/11/19 03:35 Blood Pressure 160/79 H 12/11/19 03:35 Pulse Oximetry 99 12/11/19 03:35 Course <Brandon Pinto MD - Last Filed: 12/11/19 19:50> Course Course Narrative: 0600 patient has a normal GFR with hyperkalemia at 5.9. The patient's CPK MB is elevated at 3.26. The patient's CPK index is normal at 2.0 and the troponin is normal at 0.012. Patient will be treated for his hyperkalemia. A repeat troponin and EKG will be obtained. 0655 the chest x-ray by my review does not show any acute infiltrate or pneumonia. The patient is complaining of persistent chest pain requesting morphine. He was initially administered Toradol and 1 in of nitropaste which did not relieve his discomfort. The patient has hyperkalemia with normal renal function. 07. The patient for his chest pain has been administered 30 mg of Toradol, 1 in of nitro paste 4 mg of morphine sulfate and I do not other bolus of 4 mg morphine sulfate without relief of his pain and discomfort. He states that his pain was as low as 2 but after his last dose of morphine sulfate his chest pain is increasing to a 4. I question whether or not the patient has a mental illness as well as a questionable drug-seeking behavior. I will initiate a n itroglycerin drip for his pain and discomfort. However the patient does have nonspecific arm questionable changes on his EKG as well as hyperkalemia and a past history of previous myocardial infarction with 2 coronary artery stents. We are obtaining the patient's medical records from [facility] to check to see whether not he was recently cathed. However the patient may need to be transferred back to [facility] for his continued pain and discomfort and hyperkalemia. 0828: The patient's D-dimer is less than 200. The patient's repeat potassium is 4.1. The patient's repeat troponin is less than 0.012. He continues to complain of chest pain. A nitro drip was ordered in started on the patient. The patient's records obtained from [facility] reveals that on December 08, 2019 CT angio of his head and neck revealed no acute intracranial disease process. Two no large vessel occlusion, hemodynamically significant stenosis, vascular dissection or aneurysm. CT angio of the chest in abdomen revealed no aneurysm or dissection found no pulmonary embolism seen. Source of sudden onset of chest pain is not identified. CT of his head revealed no acute intracranial disease process. Echocardiogram performed on December 08, 2019 revealed a technically difficult scan since the patient was imaged while sitting upright because he had diffic ulty in complaining of continued chest pain. A contrast injection was performed to improve assessment of the left ventricular function. His left ventricular ejection fraction was normal. There is subtle hypokinesia of the basal to mid inferior wall. Despite differences in the quality of the images it appears that this was present in prior study as well. There is no left ventricular thrombus normal right ventricular size and low normal right ventricular function. The coronary cusp mobility is restricted but there is no hemodynamically significant aortic valve disease. These changes are unchanged from previous studies. There was no documentation in the [facility] that the patient has had a recent coronary angiogram. The patient's blood pressure has dropped to 90 systolic tore after receiving 2 doses of morphine sulfate. The patient will be given an additional L of fluid to raise his blood pressure and the nitro drip held. Orders Ordered: Discontinued Medications Albuterol (Ventolin) 10 mg INH NOW ONE Stop: 12/11/19 06:06 Last Admin: 12/11/19 06:25 Dose: 10 mg Documented by: DEEPA Erickson Hydrox/Mg Hydrox/Simethicone 45 ml/ Lidocaine HCl 15 ml 0 ml PO NOW ONE Stop: 12/11/19 08:59 Last Admin: 12/11/19 11:21 Dose: Not Given Documented by: ANTHONY Dextrose (D50w) 25 gm IV NOW ONE Stop: 12/11/19 06:07 Last Admin: 12/11/19 06:18 Dose: 25 gm Documented by: EDY Dicyclomine HCl (Bentyl) 20 mg PO NOW ONE Stop: 12/11/19 03:59 Last Admin: 12/11/19 05:51 Dose: 20 mg Documented by: IDRIS Nitroglycerin (Nitroglycerin) 50 mg in 250 mls @ 1.5 mls/hr IV TITRATE LUCIANO; Protocol Last Admin: 12/11/19 11:20 Dose: Not Given Documented by: TEMIONEHalle Sodium Chloride (Normal Saline 0.9%) 1,000 mls @ 1,000 mls/hr IV BOLUS ONE Stop: 12/11/19 09:34 Last Admin: 12/11/19 11:21 Dose: Not Given Documented by: ANTHONY Insulin Human Regular (Humulin R) 10 unit IV NOW ONE Stop: 12/11/19 06:07 Last Admin: 12/11/19 06:19 Dose: 10 unit Documented by: EDY Cosigned by: IDRIS Ketorolac Tromethamine (Toradol) 15 mg IV NOW ONE Stop: 12/11/19 03:43 Last Admin: 12/11/19 05:07 Dose: 15 mg Documented by: IDRIS Morphine Sulfate (Morphine) 4 mg IV NOW ONE Stop: 12/11/19 03:56 Last Admin: 12/11/19 06:17 Dose: 4 mg Documented by: EDY Nitroglycerin (Nitro-Bid) 1 inch TOP NOW ONE Stop: 12/11/19 03:43 Last Admin: 12/11/19 05:08 Dose: 1 inch Documented by: IDRIS Pantoprazole Sodium (Protonix) 40 mg IV NOW ONE Stop: 12/11/19 08:59 Last Admin: 12/11/19 11:21 Dose: Not Given Documented by: ANTHONY Vital Signs Vital signs: Vital Signs - 8 hr 12/11/19 03:35 12/11/19 04:30 12/11/19 05:00 Temperature 98.6 F Pulse Rate 54 L 55 L 51 L Respiratory Rate 16 17 17 Blood Pressure 160/79 H Blood Pressure [Left Arm] 157/74 H 165/74 H Pulse Oximetry 99 96 97 12/11/19 05:30 12/11/19 05:45 12/11/19 06:00 Temperature Pulse Rate 52 L 55 L 54 L Respiratory Rate 22 13 10 L Blood Pressure Blood Pressure [Left Arm] 141/70 H 145/72 H 137/66 Pulse Oximetry 97 98 97 12/11/19 06:15 12/11/19 06:28 12/11/19 07:24 Temperature Pulse Rate 51 L 53 L 82 Respiratory Rate 23 16 Blood Pressure Blood Pressure [Left Arm] 147/75 H Pulse Oximetry 97 93 96 12/11/19 08:12 12/11/19 08:33 12/11/19 09:29 Temperature Pulse Rate 86 80 71 Respiratory Rate 16 16 Blood Pressure Blood Pressure [Left Arm] 91/59 L 82/53 L 92/60 Pulse Oximetry 95 94 95 12/11/19 09:50 12/11/19 10:00 12/11/19 10:30 Temperature Pulse Rate 69 60 61 Respiratory Rate 14 13 17 Blood Pressure Blood Pressure [Left Arm] 99/60 116/62 143/73 H Pulse Oximetry 97 95 97 <Josephine Lynn, DO - Last Filed: 12/11/19 11:13> Orders Ordered: Discontinued Medications Albuterol (Ventolin) 10 mg INH NOW ONE Stop: 12/11/19 06:06 Last Admin: 12/11/19 06:25 Dose: 10 mg Documented by: DEEPA Erickson Hydrox/Mg Hydrox/Simethicone 45 ml/ Lidocaine HCl 15 ml 0 ml PO NOW ONE Stop: 12/11/19 08:59 Last Admin: 12/11/19 11:21 Dose: Not Given Documented by: ANTHONY Dextrose (D50w) 25 gm IV NOW ONE Stop: 12/11/19 06:07 Last Admin: 12/11/19 06:18 Dose: 25 gm Documented by: EDY Dicyclomine HCl (Bentyl) 20 mg PO NOW ONE Stop: 12/11/19 03:59 Last Admin: 12/11/19 05:51 Dose: 20 mg Documented by: IDRIS Nitroglycerin (Nitroglycerin) 50 mg in 250 mls @ 1.5 mls/hr IV TITRATE LUCIANO; Protocol Last Admin: 12/11/19 11:20 Dose: Not Given Documented by: TEMIONER Sodium Chloride (Normal Saline 0.9%) 1,000 mls @ 1,000 mls/hr IV BOLUS ONE Stop: 12/11/19 09:34 Last Admin: 12/11/19 11:21 Dose: Not Given Documented by: TEMIONER Insulin Human Regular (Humulin R) 10 unit IV NOW ONE Stop: 12/11/19 06:07 Last Admin: 12/11/19 06:19 Dose: 10 unit Documented by: EDY Cosigned by: IDRIS Ketorolac Tromethamine (Toradol) 15 mg IV NOW ONE Stop: 12/11/19 03:43 Last Admin: 12/11/19 05:07 Dose: 15 mg Documented by: IDRIS Morphine Sulfate (Morphine) 4 mg IV NOW ONE Stop: 12/11/19 03:56 Last Admin: 12/11/19 06:17 Dose: 4 mg Documented by: EDY Nitroglycerin (Nitro-Bid) 1 inch TOP NOW ONE Stop: 12/11/19 03:43 Last Admin: 12/11/19 05:08 Dose: 1 inch Documented by: IDRIS Pantoprazole Sodium (Protonix) 40 mg IV NOW ONE Stop: 12/11/19 08:59 Last Admin: 12/11/19 11:21 Dose: Not Given Documented by: BTONEHalle Vital Signs Vital signs: Vital Signs - 8 hr 12/11/19 03:35 12/11/19 04:30 12/11/19 05:00 Temperature 98.6 F Pulse Rate 54 L 55 L 51 L Respiratory Rate 16 17 17 Blood Pressure 160/79 H Blood Pressure [Left Arm] 157/74 H 165/74 H Pulse Oximetry 99 96 97 12/11/19 05:30 12/11/19 05:45 12/11/19 06:00 Temperature Pulse Rate 52 L 55 L 54 L Respiratory Rate 22 13 10 L Blood Pressure Blood Pressure [Left Arm] 141/70 H 145/72 H 137/66 Pulse Oximetry 97 98 97 12/11/19 06:15 12/11/19 06:28 12/11/19 07:24 Temperature Pulse Rate 51 L 53 L 82 Respiratory Rate 23 16 Blood Pressure Blood Pressure [Left Arm] 147/75 H Pulse Oximetry 97 93 96 12/11/19 08:12 12/11/19 08:33 12/11/19 09:29 Temperature Pulse Rate 86 80 71 Respiratory Rate 16 16 Blood Pressure Blood Pressure [Left Arm] 91/59 L 82/53 L 92/60 Pulse Oximetry 95 94 95 12/11/19 09:50 12/11/19 10:00 12/11/19 10:30 Temperature Pulse Rate 69 60 61 Respiratory Rate 14 13 17 Blood Pressure Blood Pressure [Left Arm] 99/60 116/62 143/73 H Pulse Oximetry 97 95 97 MDM - Nausea/Vomiting/Diarrhea <Brandon Pinto MD - Last Filed: 12/11/19 19:50> Medical Records Attestation: I reviewed the patient's medical records. Lab Data Attestation: I reviewed the patient's lab results. Result diagrams: 12/11/19 03:34 12/11/19 07:18 Labs: Lab Results 12/11/19 12/11/19 12/11/19 Range/Units 03:34 03:34 03:34 WBC 9.3 (4.5-11.0) X10^3/uL RBC 4.89 (4.5-5.9) X10^6/uL Hgb 15.6 (13.5-17.5) g/dL Hct 45.0 (41-53) % MCV 92.0 (80-100) fL MCH 31.8 (26-34) PG MCHC 34.6 (30-36) % RDW 14.4 (11.6-14.8) % Plt Count 216 (150-400) X10^3/uL Neut % (Auto) 76.0 H (50-75) % Lymph % (Auto) 15.3 L (25-40) % [place] % (Auto) 7.0 (3-14) % Eos % (Auto) 1.4 L (2-4) % Baso % (Auto) 0.3 (0-2) % Neut # (Auto) 7100 H (0346-8050) /uL Lymph # (Auto) 1400 (0141-5422) /uL [place] # (Auto) 700 (0-900) /uL Eos # (Auto) 100 (0-450) /uL Baso # (Auto) 0 (0-100) /uL PT 13.2 H (10.1-12.7) SECONDS INR 1.2 (0.9-1.3) APTT 35 D (26.4-36.2) SECONDS D-Dimer (<230) ng/mL Sodium 139 (137-145) mmol/L Potassium 5.9 H D (3.4-5.1) mmol/L Chloride 104 (98-107) mmol/L Carbon Dioxide 28 (22-32) mmol/L BUN 16 (9-20) mg/dL Creatinine 0.80 (0.66-1.25) mg/dL Estimated GFR > 60.0 (>60) mL/min BUN/Creatinine Ratio 20.0 (6-22) Glucose 289 H D (80-110) mg/dL Calcium 10.1 (8.4-10.2) mg/dL Total Bilirubin 0.7 (0.2-1.3) mg/dL AST 44 (17-59) IU/L ALT 47 (<50) IU/L Alkaline Phosphatase 97 (38-126) U/L Total Creatine Kinase 160 (55-170) U/L CK-MB (CK-2) 3.26 H (<2.37) ng/mL CK-MB (CK-2) Rel Index 2.0 (1.5-5.0) % Troponin I < 0.012 (0.01-0.034) ng/mL Total Protein 8.2 (6.3-8.2) g/dL Albumin 4.6 (3.5-5.0) g/dL Globulin 3.6 (1.7-4.1) g/dL Albumin/Globulin Ratio 1.3 (1.0-2.8) Lipase 97 (23-300) U/L 12/11/19 12/11/19 12/11/19 Range/Units 03:34 06:07 07:18 WBC (4.5-11.0) X10^3/uL RBC (4.5-5.9) X10^6/uL Hgb (13.5-17.5) g/dL Hct (41-53) % MCV (80-100) fL MCH (26-34) PG MCHC (30-36) % RDW (11.6-14.8) % Plt Count (150-400) X10^3/uL Neut % (Auto) (50-75) % Lymph % (Auto) (25-40) % [place] % (Auto) (3-14) % Eos % (Auto) (2-4) % Baso % (Auto) (0-2) % Neut # (Auto) (7178-6806) /uL Lymph # (Auto) (0168-8173) /uL [place] # (Auto) (0-900) /uL Eos # (Auto) (0-450) /uL Baso # (Auto) (0-100) /uL PT (10.1-12.7) SECONDS INR (0.9-1.3) APTT (26.4-36.2) SECONDS D-Dimer < 200 (<230) ng/mL Sodium (137-145) mmol/L Potassium 4.1 D (3.4-5.1) mmol/L Chloride (98-107) mmol/L Carbon Dioxide (22-32) mmol/L BUN (9-20) mg/dL Creatinine (0.66-1.25) mg/dL Estimated GFR (>60) mL/min BUN/Creatinine Ratio (6-22) Glucose (80-110) mg/dL Calcium (8.4-10.2) mg/dL Total Bilirubin (0.2-1.3) mg/dL AST (17-59) IU/L ALT (<50) IU/L Alkaline Phosphatase (38-126) U/L Total Creatine Kinase (55-170) U/L CK-MB (CK-2) (<2.37) ng/mL CK-MB (CK-2) Rel Index (1.5-5.0) % Troponin I < 0.012 (0.01-0.034) ng/mL Total Protein (6.3-8.2) g/dL Albumin (3.5-5.0) g/dL Globulin (1.7-4.1) g/dL Albumin/Globulin Ratio (1.0-2.8) Lipase (23-300) U/L ECG Data Attestation: I personally reviewed and interpreted this ECG as follows: Interpretation: The patient's EKG obtained on December 11 at 03:1 12:43 a.m. reveals a sinus bradycardia with a ventricular rate of 54. Intervals are normal. QTC is 430 milliseconds. [place] is normal the patient has a QS wave in aVL and V1 as well as V2. There is slight ST segment elevations in V1 V2 V3 that may represent early repolarization. The patient has nonspecific ST elevations and coving in leads II III and AVF. There are no other acute diagnostic ST segment changes. 0651 the patient's repeat EKG obtained on December 11 at 06:2 2:59 a.m. reveals a sinus bradycardia with a ventricular rate of 52. QRS is prolonged at 102 milliseconds and his QTC is borderline prolonged at 450 milliseconds axis is normal. The patient has Q-waves in lead V1 and a deep S-wave in V2 with a small R-wave in V2. This looks like questionable evidence of and old septal infarct. The patient has [place] segment depressions which makes it look like there is ST segment depression elevations. The patient has nonspecific ST elevations in V1 V2 V3 and AVF. There are no other acute diagnostic ST segment changes. <Josephine Lynn, DO - Last Filed: 12/11/19 11:13> Lab Data Labs: Lab Results 12/11/19 12/11/19 12/11/19 Range/Units 03:34 03:34 03:34 WBC 9.3 (4.5-11.0) X10^3/uL RBC 4.89 (4.5-5.9) X10^6/uL Hgb 15.6 (13.5-17.5) g/dL Hct 45.0 (41-53) % MCV 92.0 (80-100) fL MCH 31.8 (26-34) PG MCHC 34.6 (30-36) % RDW 14.4 (11.6-14.8) % Plt Count 216 (150-400) X10^3/uL Neut % (Auto) 76.0 H (50-75) % Lymph % (Auto) 15.3 L (25-40) % [place] % (Auto) 7.0 (3-14) % Eos % (Auto) 1.4 L (2-4) % Baso % (Auto) 0.3 (0-2) % Neut # (Auto) 7100 H (5851-9271) /uL Lymph # (Auto) 1400 (6383-3325) /uL [place] # (Auto) 700 (0-900) /uL Eos # (Auto) 100 (0-450) /uL Baso # (Auto) 0 (0-100) /uL PT 13.2 H (10.1-12.7) SECONDS INR 1.2 (0.9-1.3) APTT 35 D (26.4-36.2) SECONDS D-Dimer (<230) ng/mL Sodium 139 (137-145) mmol/L Potassium 5.9 H D (3.4-5.1) mmol/L Chloride 104 (98-107) mmol/L Carbon Dioxide 28 (22-32) mmol/L BUN 16 (9-20) mg/dL Creatinine 0.80 (0.66-1.25) mg/dL Estimated GFR > 60.0 (>60) mL/min BUN/Creatinine Ratio 20.0 (6-22) Glucose 289 H D (80-110) mg/dL Calcium 10.1 (8.4-10.2) mg/dL Total Bilirubin 0.7 (0.2-1.3) mg/dL AST 44 (17-59) IU/L ALT 47 (<50) IU/L Alkaline Phosphatase 97 (38-126) U/L Total Creatine Kinase 160 (55-170) U/L CK-MB (CK-2) 3.26 H (<2.37) ng/mL CK-MB (CK-2) Rel Index 2.0 (1.5-5.0) % Troponin I < 0.012 (0.01-0.034) ng/mL Total Protein 8.2 (6.3-8.2) g/dL Albumin 4.6 (3.5-5.0) g/dL Globulin 3.6 (1.7-4.1) g/dL Albumin/Globulin Ratio 1.3 (1.0-2.8) Lipase 97 (23-300) U/L 12/11/19 12/11/19 12/11/19 Range/Units 03:34 06:07 07:18 WBC (4.5-11.0) X10^3/uL RBC (4.5-5.9) X10^6/uL Hgb (13.5-17.5) g/dL Hct (41-53) % MCV (80-100) fL MCH (26-34) PG MCHC (30-36) % RDW (11.6-14.8) % Plt Count (150-400) X10^3/uL Neut % (Auto) (50-75) % Lymph % (Auto) (25-40) % [place] % (Auto) (3-14) % Eos % (Auto) (2-4) % Baso % (Auto) (0-2) % Neut # (Auto) (9433-3530) /uL Lymph # (Auto) (3643-7296) /uL [place] # (Auto) (0-900) /uL Eos # (Auto) (0-450) /uL Baso # (Auto) (0-100) /uL PT (10.1-12.7) SECONDS INR (0.9-1.3) APTT (26.4-36.2) SECONDS D-Dimer < 200 (<230) ng/mL Sodium (137-145) mmol/L Potassium 4.1 D (3.4-5.1) mmol/L Chloride (98-107) mmol/L Carbon Dioxide (22-32) mmol/L BUN (9-20) mg/dL Creatinine (0.66-1.25) mg/dL Estimated GFR (>60) mL/min BUN/Creatinine Ratio (6-22) Glucose (80-110) mg/dL Calcium (8.4-10.2) mg/dL Total Bilirubin (0.2-1.3) mg/dL AST (17-59) IU/L ALT (<50) IU/L Alkaline Phosphatase (38-126) U/L Total Creatine Kinase (55-170) U/L CK-MB (CK-2) (<2.37) ng/mL CK-MB (CK-2) Rel Index (1.5-5.0) % Troponin I < 0.012 (0.01-0.034) ng/mL Total Protein (6.3-8.2) g/dL Albumin (3.5-5.0) g/dL Globulin (1.7-4.1) g/dL Albumin/Globulin Ratio (1.0-2.8) Lipase (23-300) U/L MDM Narrative Medical decision making narrative: 9:30 a.m. patient signed out to me by Dr. Pinto, has seen evaluated him myself. Nitroglycerin has been stopped due to hypotension. He is not sleeping. Cardiology has already been consulted awaiting for hospitalist decision. Dr. coffman has spoken with Dr. dasilva, they both agree to transfer to [facility] for further testing. 9:49 Dr. Kulkarni, hospitalist at [facility] updated patient's symptoms test results Cardiology recommendations and happily accept patient for transfer Discharge Plan Departure Patient Disposition: [facility] Clinical Impression: Dizzy, Abdominal cramping, generalized, Acute hyperkalemia, Non-cardiac chest pain Chest pain Qualifiers: Chest pain type: unspecified Qualified Code(s): R07.9 - Chest pain, unspecified Diarrhea Qualifiers: Diarrhea type: unspecified type Qualified Code(s): R19.7 - Diarrhea, unspecified Discharge Date/Time: 12/11/19 11:26 Prescriptions: No Action (DME) pen needle, diabetic [Comfort EZ Pen [place]] 29 gauge x 1/2 needle See Dose Instructions .ROUTE .MEDSUPPLY Qty: 100 RF: 0 (DME) pen needle, diabetic [Comfort EZ Pen [place]] 31 gauge x 5/16 needle See Dose Instructions .ROUTE .MEDSUPPLY Qty: 100 RF: 3 atorvastatin 40 mg tablet 40 mg PO BEDTIME Qty: 90 RF: 0 citalopram [Celexa] 40 mg tablet 40 mg PO DAILY Qty: 90 RF: 0 metoprolol tartrate 25 mg tablet 25 mg PO BID Qty: 180 RF: 0 (DME) Disabled Parking Permit Qty: 1 RF: 0 bupropion HCl [Wellbutrin SR] 150 mg tablet sustained-release 12 hr 150 mg PO DAILY Qty: 30 RF: 1 gabapentin 300 mg capsule 900 mg PO BID Qty: 180 RF: 0 beclomethasone dipropionate 40 mcg/actuation HFA aerosol breath activated 1 inhalation Inhalation BID Qty: 10.6 RF: 5 isosorbide mononitrate 60 mg tablet extended release 24 hr 60 mg PO QAM Qty: 90 RF: 0 meclizine 25 mg tablet 25 mg PO TID PRN (Reason: dizziness) Qty: 10 RF: 0 omeprazole 20 mg tablet,delayed release (DR/EC) 20 mg PO DAILY Qty: 30 RF: 0 (DME) Glucometer Qty: 1 RF: 0 levothyroxine [Synthroid] 50 mcg tablet 50 mcg PO QAM Qty: 90 RF: 0 lisinopril 2.5 mg tablet 2.5 mg PO QAM Qty: 30 RF: 1 Novolog Flexpen U-100 Insulin 100 unit/mL (3 mL) insulin pen See Rx Instructions SUBCUT .COMPLEX Qty: 15 RF: 1 albuterol sulfate [Proventil HFA] 90 mcg/actuation HFA aerosol inhaler 2 puff INHALATION QID PRN (Reason: shortness of breath) Qty: 18 RF: 5 triamcinolone acetonide 0.1 % cream 1 applictn TOP DAILY Qty: 30 RF: 5 oxycodone-acetaminophen [Percocet] 5-325 mg tablet 1 tab PO Q8H PRN (Reason: pain) Qty: 30 RF: 0 (DME) lancets Qty: 1 RF: 4 (DME) Test strips Qty: 1 RF: 4 Tresiba FlexTouch U-200 200 unit/mL (3 mL) insulin pen 150 unit SUBCUT BEDTIME Qty: 9 RF: 0 Lantus Solostar U-100 Insulin 100 unit/mL (3 mL) Insulin Pen 80 unit subcut BID 30 Days Qty: 48 RF: 0 acetaminophen 325 mg Tablet 650 mg PO Q6HR PRN (Reason: As Needed For Fever/Mild Pain) Qty: 30 RF: 0 ipratropium-albuterol 0.5 mg-3 mg(2.5 mg base)/3 mL Solution For Nebulization 3 ml INH QID Qty: 360 RF: 0 nicotine 21 mg/24 hr Patch 24 Hour 21 mg topical DAILY Qty: 30 RF: 0 Referrals: Gasper Rutherford, [Primary Care Provider] -
[2019-12-11 03:49] LABS: Add Manual Diff / Slide Review NO; Basophils Absolute Auto 0 /uL (0-100); Basophils Percent Auto 0.3 % (0-2); Eosinophils Absolute Auto 100 /uL (0-450); Eosinophils Percent Auto 1.4 % (2-4); Hemoglobin 15.6 g/dL (13.5-17.5); Lymphocytes Absolute Auto 1400 /uL (1100-4500); Lymphocytes Percent Auto 15.3 % (25-40); Mean Corpuscular HGB Conc 34.6 % (30-36); Mean Corpuscular Hemoglobin 31.8 PG (26-34); Monocytes Absolute Auto 700 /uL (0-900); Neutrophils Absolute Auto 7100 /uL (1500-7000); Platelet Count 216 X10^3/uL (150-400); Red Blood Cell Count 4.89 X10^6/uL (4.5-5.9); Red Cell Distribution Width 14.4 % (11.6-14.8); White Blood Cell Count 9.3 X10^3/uL (4.5-11.0)
[2019-12-11 03:55] LABS: INR 1.2 (0.9-1.3); Prothrombin Time 13.2 SECONDS (10.1-12.7)
[2019-12-11 03:58] LABS: PTT Partial Thromboplastin Tim 35 SECONDS (26.4-36.2)
[2019-12-11 04:00] LABS: Alanine Aminotransferase 47 IU/L (<50); Albumin 4.6 g/dL (3.5-5.0); Albumin Globulin Ratio 1.3 (1.0-2.8); Alkaline Phosphatase 97 U/L (38-126); Aspartate Aminotransferase 44 IU/L (17-59); Bilirubin Total 0.7 mg/dL (0.2-1.3); Blood Urea Nitrogen 16 mg/dL (9-20); Calcium 10.1 mg/dL (8.4-10.2); Carbon Dioxide 28 mmol/L (22-32); Chloride 104 mmol/L (98-107); Creatine Kinase 160 U/L (55-170); Estimated Glomerular Filt Rate > 60.0 mL/min (>60); Globulin 3.6 g/dL (1.7-4.1); Glucose 289 mg/dL (80-110); HEMOLYSIS < 15 (0-50); Lipase 97 U/L (23-300); Sodium 139 mmol/L (137-145); Total Protein 8.2 g/dL (6.3-8.2)
[2019-12-11 04:04] LABS: Potassium 5.9 mmol/L (3.4-5.1)
[2019-12-11 04:11] LABS: Troponin I < 0.012 ng/mL (0.01-0.034)
[2019-12-11 04:43] LABS: Creatine Kinase MB 3.26 ng/mL (<2.37)
[2019-12-11] MEDS: KETOROLAC 60 MG/2 ML VIAL 15 MG IV (05:07)
[2019-12-11] MEDS: NITROGLYCERIN OINT 1 INCH/GM OINT...G. TOP (05:08)
[2019-12-11] MEDS: DICYCLOMINE 10 MG CAPSULE 20 MG PO (05:51)
[2019-12-11] MEDS: MORPHINE 4 MG/ML INJ IV (06:17)
[2019-12-11] MEDS: DEXTROSE 50 % IN WATER 25 GM/50 ML SYRINGE IV (06:18)
[2019-12-11] MEDS: INSULIN REGULAR 100 UNIT/ML 3 ML VIAL 10 UNIT IV (06:19)
[2019-12-11] MEDS: ALBUTEROL 2.5 MG/3 ML NEB (ADULT) 10 MG INH (06:25)
[2019-12-11 06:41] LABS: Troponin I < 0.012 ng/mL (0.01-0.034)
[2019-12-11 07:15] LABS: D Dimer < 200 ng/mL (<230)
[2019-12-11 07:31] LABS: HEMOLYSIS < 15 (0-50); Potassium 4.1 mmol/L (3.4-5.1)
--- NOTE | 2019-12-11 08:41 | PC.NURSE ---
hold nitro gtt per due to bp.
--- NOTE | 2019-12-11 10:56 | PC.NURSE ---
Report given to EMS for transfer. Discharge vitals BP 143/73, HR 59, O2 95% on room air, and respirations of 22 per minute. Pt was alert and oriented upon transfer and was able to self transfer from ER bed to ambulance stretcher.
== END 2019-12-11 11:26 | disposition short-term general hospital (02) ==
PROVIDERS: Emergency Medicine; Emergency Provider Emergency Medicine; PCP Family Medicine
DX: R07.9 Chest pain, unspecified (principal); R42 Dizziness and giddiness; R10.84 Generalized abdominal pain; E87.5 Hyperkalemia; R19.7 Diarrhea, unspecified; E11.9 Type 2 diabetes mellitus without complications; Z95.5 Presence of coronary angioplasty implant and graft; I11.0 Hypertensive heart disease with heart failure; I50.9 Heart failure, unspecified
CPT/HCPCS: 36415; 71045; 80053; 82550; 82553; 83690; 84132; 84484; 85025; 85379; 85610; 85730; 93005; 94640; 96374; 96375; 99284; 99285; J1885; J2270; J7613

== ENCOUNTER → 2019-12-21 12:03 | Outpatient (CLI) | payer OTHER, SELFPAY ==
[2019-12-05 12:43] VITALS: BMI 32.3
[2019-12-21 12:50] LABS: Hemoglobin A1C% w Est Avg Glu 8.3 % (4.0-6.0)
[2019-12-21 13:15] LABS: Alanine Aminotransferase 26 IU/L (<50); Albumin 4.1 g/dL (3.5-5.0); Albumin Globulin Ratio 1.5 (1.0-2.8); Alkaline Phosphatase 78 U/L (38-126); Aspartate Aminotransferase 25 IU/L (17-59); BUN Creatinine Ratio 21.4 (6-22); Bilirubin Total 0.6 mg/dL (0.2-1.3); Blood Urea Nitrogen 15 mg/dL (9-20); Calcium 9.3 mg/dL (8.4-10.2); Carbon Dioxide 26 mmol/L (22-32); Chloride 99 mmol/L (98-107); Cholesterol 136 mg/dL (140-199); Estimated Glomerular Filt Rate > 60.0 mL/min (>60); Globulin 2.8 g/dL (1.7-4.1); Glucose 229 mg/dL (80-110); HDL Cholesterol 47 mg/dL (40-60); HEMOLYSIS < 15 (0-50); LDL Cholesterol Calculated 76 mg/dL (<100); Potassium 4.3 mmol/L (3.4-5.1); Sodium 138 mmol/L (137-145); Total Protein 6.9 g/dL (6.3-8.2); Triglycerides 66 mg/dL (35-150)
[2019-12-21 13:44] LABS: Thyroid Stimulating Hormone 5.77 uIU/mL (0.47-4.68)
== END ==
PROVIDERS: PCP Family Medicine; Referring Provider Family Medicine; Visit Provider Family Medicine
DX: E11.9 Type 2 diabetes mellitus without complications (principal); E03.9 Hypothyroidism, unspecified; E78.5 Hyperlipidemia, unspecified; I10 Essential (primary) hypertension
CPT/HCPCS: 36415; 80053; 80061; 83036; 84443

== ENCOUNTER 2020-01-10 21:21 | Inpatient (IN) | payer OTHER, SELFPAY ==
[2019-12-05 12:43] VITALS: BMI 32.3
[2020-01-10 21:48] VITALS: BP 100/45; PULSE 107; RESP 24; TEMP 37.1; O2SAT 96; BMI 32.3
--- NOTE | 2020-01-10 21:59 | ED.NAVMDI ---
HPI - Nausea/Vomiting/Diarrhea General Chief complaint: Nausea/Vomiting/Diarrhea Stated complaint: vomiting, diarrhea, fever, son thinks Wing Virus Time Seen by Provider: 01/10/20 21:58 Source: patient Mode of arrival: Family Vehicle Limitations: no limitations History of Present Illness HPI Narrative: This is a 64-year-old male comes emergency department complaint of abdominal pain, vomiting and diarrhea that started mid afternoon. Patient states he has had 6 or 7 episodes of vomiting about 3 episodes of diarrhea. States the 1st bowel movement was actually well formed. He has not had any black or blood in his stools. He has felt chilled sweaty. He is unsure if he has had any fevers. He states he has a chronic cough COPD feels slightly more short of breath than normal. He is not normally on home O2 but does use inhalers daily. Patient states no chest pain or pressure. He states his abdominal pain is sort of or the bladder is. He denies any back or flank pain. He states he does feel like he needs to urinate at this time. Patient denies any frequency, dysuria or urgency. He has no dyslipidemia, COPD, he has a known cardiac history with cardiac stents and past SD, he is a diabetic and on insulin daily. He states for alcohol. Occasional THC. He has had several family members that of felt unwell but not had GI symptoms has had several family. Related Data Home Medications Medication Instructions Recorded Confirmed nitroglycerin 0.4 mg sublingual 0.4 mg SUBLINGUAL PRN PRN tab 12/21/19 01/11/20 tablet Previous Rx's Medication Instructions Recorded pen needle, diabetic 29 gauge x #100 each 03/11/18 1/2 pen needle, diabetic 31 gauge x #100 each 09/09/18/16 ipratropium-albuterol 3 ml INH QID #360 ml 03/12/19 nicotine 21 mg TOPICAL DAILY #30 ea 03/12/19 metoprolol tartrate 25 mg tablet 25 mg PO BID #180 tab 08/02/19 Disabled Parking Permit #1 ea 08/26/19 Test strips #1 ea 10/10/19 lancets #1 each 10/10/19 oxycodone-acetaminophen 5 mg-325 1 tab PO Q8H PRN #30 tab 10/10/19 mg tablet triamcinolone acetonide 0.1 % 1 applictn TOP DAILY #30 gram 12/09/19 topical cream beclomethasone dipropionate 40 1 inhalation INHALATION BID #10.6 10/12/19 mcg/actuation HFA breath activated gram aerosol isosorbide mononitrate 60 mg 60 mg PO QAM #90 tab 10/12/19 tablet,extended release 24 hr meclizine 25 mg tablet 25 mg PO TID PRN #10 tab 10/12/19 Glucometer #1 ea 10/17/19 levothyroxine 50 mcg tablet 50 mcg PO QAM #90 tab 10/21/19 albuterol sulfate 90 mcg/actuation 2 puff INHALATION QID PRN #18 gram 12/05/19 aerosol inhaler insulin aspart U-100 100 unit/mL See Rx Instructions SUBCUT 12/05/19 (3 mL) subcutaneous pen .COMPLEX #15 ml atorvastatin 40 mg tablet 40 mg PO BEDTIME #90 tab 12/23/19 gabapentin 300 mg capsule 900 mg PO BID #180 cap 12/23/19 lisinopril 2.5 mg tablet 2.5 mg PO QAM #30 tab 12/23/19 omeprazole 20 mg tablet,delayed 20 mg PO DAILY #30 tab 12/23/19 release bupropion HCl 150 mg tablet,12 hr 150 mg PO DAILY #90 each 01/03/20 sustained-release citalopram 40 mg tablet 40 mg PO DAILY #90 tab 01/03/20 clopidogrel 75 mg tablet 75 mg PO DAILY #90 tab 01/03/20 insulin degludec 200 unit/mL (3 150 unit SUBCUT BEDTIME #9 ml 01/03/20 mL) subcutaneous pen levothyroxine 75 mcg capsule 75 mcg PO DAILY #90 cap 01/06/20 Allergies Allergy/AdvReac Type Severity Reaction Status Date / Time adhesive Allergy Mild REDNESS/ITC Verified 12/21/19 11:07 HINESS Review of Systems Review of Systems ROS Unobtainable: All systems reviewed & are unremarkable except as noted in HPI and below Patient History Social History household members: children and other Smoking Status: Current every day smoker Tobacco: How many years used: 45 alcohol intake: current Smoking Status: Current every day smoker alcohol intake frequency: 0-2 drinks per day Substance Use Type: marijuana Exam Narrative Exam Narrative: GENERAL: Alert and oriented x three, elderly male in moderate distress. HEENT: Head normocephalic, atraumatic, EOMI, pupils reactive, face symmetric, moist mucous membranes NECK: Supple, full range of motion CARDIOVASCULAR: Regular rate and rhythm without murmurs, rubs or gallops. No tachypnea on exam. No edema bilateral lower extremities RESPIRATORY: Breath sounds course bilaterally, no wheezes rales or rhonchi. No tachypnea accessory muscle use. Speaks in full sentences. ABDOMEN: Soft, positive for abdominal tenderness particularly in the right lower quadrant but also suprapubically and mildly on the left lower quadrant. Normoactive bowel sounds all 4 quadrants. No guarding, positive for rebound, no rigidity, no mass. : No CVA tenderness EXTREMITIES: Normal range of motion, no clubbing or edema. Neurovascularly intact NEUROLOGICAL: Cranial nerves II through XII grossly intact. Moving all extremities SKIN: Warm, dry, no petechiae, no rashes or lesions. Initial Vital Signs Initial Vital Signs: Vital Signs Temperature 98.7 F 01/10/20 21:48 Pulse Rate 107 H 01/10/20 21:48 Respiratory Rate 24 01/10/20 21:48 Blood Pressure 100/45 L 01/10/20 21:48 Pulse Oximetry 96 01/10/20 21:48 Course Orders Ordered: ED Orders 01/10/20 21:45 GI Panel (Film Array) Stat 01/10/20 21:47 Complete Blood Count AUTO DIFF Stat Comprehensive Metabolic Panel Stat Lipase Stat Partial Thromboplastin Time Stat Prothrombin Time INR Stat Troponin & CK Cardiac Panel Stat 01/10/20 21:54 EKG-12 Lead Stat 01/10/20 22:23 CT abdomen pelvis w con Stat 01/10/20 22:26 XR chest 1V Stat Acetaminophen (Tylenol) 650 mg PO Q6HR PRN PRN Reason: Fever/Mild Pain (1-3) Albuterol (Ventolin) 2.5 mg INH [id number] PRN PRN Reason: Shortness Of Breath Albuterol/Ipratropium (Duoneb) 3 ml INH RTQ6HR PRN PRN Reason: Shortness Of Breath Heparin Sodium (Porcine) (Heparin) 5,000 unit SUBCUT BID LUCIANO Hydromorphone HCl (Dilaudid) 0.5 mg IV Q4HR PRN PRN Reason: Pain, Moderate (4-6) Hydromorphone HCl (Dilaudid) 1 mg IV Q4HR PRN PRN Reason: Pain, Severe (7-10) Lactated Ringer's (Lactated Ringers) 1,000 mls @ 125 mls/hr IV CONT LUCIANO Naloxone HCl (Narcan) 0.2 mg IV Q2MIN PRN PRN Reason: Opiate Reversal Ondansetron HCl (Zofran) 4 mg IV Q6HR PRN PRN Reason: Nausea And Vomiting Discontinued Medications Hydromorphone HCl (Dilaudid) 0.5 mg IV NOW ONE Stop: 01/10/20 23:59 Last Admin: 01/11/20 00:15 Dose: 0.5 mg Documented by: SHANTAL Sodium Chloride (Normal Saline 0.9%) 1,000 mls @ 1,000 mls/hr IV BOLUS ONE Stop: 01/10/20 22:54 Last Infusion: 01/10/20 23:52 Dose: 0 mls/hr Documented by: Infusion: 01/10/20 23:08 Dose: 1,000 mls/hr Documented by: Infusion: 01/10/20 22:46 Dose: 0 mls/hr Documented by: Admin: 01/10/20 22:11 Dose: 1,000 mls/hr Documented by: SHANTAL Piperacillin/Tazobactam/Dextrose (Zosyn) 4.5 gm in 100 mls @ 200 mls/hr IV NOW ONE Stop: 01/11/20 00:14 Last Infusion: 01/11/20 00:56 Dose: 0 mls/hr Documented by: Admin: 01/11/20 00:15 Dose: 200 mls/hr Documented by: SHANTAL Morphine Sulfate (Morphine) 4 mg IV NOW ONE Stop: 01/10/20 22:24 Last Admin: 01/10/20 22:37 Dose: 4 mg Documented by: SHANTAL Ondansetron HCl (Zofran) 4 mg IV NOW ONE Stop: 01/10/20 21:55 Last Admin: 01/10/20 22:11 Dose: 4 mg Documented by: SHANTAL Vital Signs Vital signs: Vital Signs - 8 hr 01/10/20 21:48 01/10/20 22:30 01/10/20 23:00 Temperature 98.7 F 99.3 F Pulse Rate 107 H 93 H 91 H Respiratory Rate 24 20 18 Blood Pressure 100/45 L Blood Pressure [Left Arm] 120/87 132/63 Pulse Oximetry 96 97 93 01/11/20 00:00 Temperature Pulse Rate 95 H Respiratory Rate 20 Blood Pressure Blood Pressure [Left Arm] 160/71 H Pulse Oximetry MDM - Nausea/Vomiting/Diarrhea Lab Data Attestation: I reviewed the patient's lab results. Result diagrams: 01/10/20 21:47 01/10/20 21:47 Labs: Lab Results 01/10/20 01/10/20 01/10/20 Range/Units 21:45 21:47 21:47 WBC 11.4 H (4.5-11.0) X10^3/uL RBC 4.34 L (4.5-5.9) X10^6/uL Hgb 13.9 (13.5-17.5) g/dL Hct 40.1 L (41-53) % MCV 92.2 (80-100) fL MCH 32.1 (26-34) PG MCHC 34.8 (30-36) % RDW 13.4 (11.6-14.8) % Plt Count 307 (150-400) X10^3/uL Neut % (Auto) 85.3 H (50-75) % Lymph % (Auto) 9.9 L (25-40) % [place] % (Auto) 3.8 (3-14) % Eos % (Auto) 0.5 L (2-4) % Baso % (Auto) 0.5 (0-2) % Neut # (Auto) 9700 H (1005-6238) /uL Lymph # (Auto) 1100 (4209-7743) /uL [place] # (Auto) 400 (0-900) /uL Eos # (Auto) 100 (0-450) /uL Baso # (Auto) 100 (0-100) /uL PT 14.3 H (10.1-12.7) SECONDS INR 1.2 (0.9-1.3) APTT 29 D (26.4-36.2) SECONDS Sodium (137-145) mmol/L Potassium (3.4-5.1) mmol/L Chloride (98-107) mmol/L Carbon Dioxide (22-32) mmol/L BUN (9-20) mg/dL Creatinine (0.66-1.25) mg/dL Estimated GFR (>60) mL/min BUN/Creatinine Ratio (6-22) Glucose (80-110) mg/dL Calcium (8.4-10.2) mg/dL Total Bilirubin (0.2-1.3) mg/dL AST (17-59) IU/L ALT (<50) IU/L Alkaline Phosphatase (38-126) U/L Total Creatine Kinase (55-170) U/L CK-MB (CK-2) (<2.37) ng/mL CK-MB (CK-2) Rel Index (1.5-5.0) % Troponin I (0.01-0.034) ng/mL Total Protein (6.3-8.2) g/dL Albumin (3.5-5.0) g/dL Globulin (1.7-4.1) g/dL Albumin/Globulin Ratio (1.0-2.8) Lipase (23-300) U/L Stl C. cayetanensis PCR Not detected (Not Detect) Stool Rotavirus (PCR) Not detected (Not Detect) Stool Adenovirus (PCR) Not detected (Not Detect) Stool Astrovirus (PCR) Not detected (Not Detect) Stool Cryptosporidium PCR Not detected (Not Detect) Stl E.coli Shiga Tox PCR Not detected (Not Detect) St Sh/Enteroin Ecoli PCR Not detected (Not Detect) Stool E coli O157 PCR Not detected (Not Detect) Stl Enterotoxigenic E PCR Not detected (Not Detect) Stool EPEC (PCR) Not detected (Not Detect) Stl E. histolytica PCR Not detected (Not Detect) Stool Giardia Lamblia PCR Not detected (Not Detect) Stool Sapovirus (PCR) Not detected (Not Detect) Stl P. shigelloides PCR Not detected (Not Detect) St Y.enterocolitica PCR Not detected (Not Detect) Stool Vibrio (PCR) Not detected (Not Detect) Stl Vibrio cholerae PCR Not detected (Not Detect) Stl Enteroaggr Ecoli PCR Not detected (Not Detect) Stl Norovirus GI/GII PCR Not detected (Not Detect) Campylobacter (PCR) Not detected (Not Detect) C. difficile Tox (PCR) Not detected (Not Detect) Salmonella (PCR) Not detected (Not Detect) 01/10/20 01/10/20 Range/Units 21:47 21:47 WBC (4.5-11.0) X10^3/uL RBC (4.5-5.9) X10^6/uL Hgb (13.5-17.5) g/dL Hct (41-53) % MCV (80-100) fL MCH (26-34) PG MCHC (30-36) % RDW (11.6-14.8) % Plt Count (150-400) X10^3/uL Neut % (Auto) (50-75) % Lymph % (Auto) (25-40) % [place] % (Auto) (3-14) % Eos % (Auto) (2-4) % Baso % (Auto) (0-2) % Neut # (Auto) (8226-1588) /uL Lymph # (Auto) (1866-5941) /uL [place] # (Auto) (0-900) /uL Eos # (Auto) (0-450) /uL Baso # (Auto) (0-100) /uL PT (10.1-12.7) SECONDS INR (0.9-1.3) APTT (26.4-36.2) SECONDS Sodium 135 L (137-145) mmol/L Potassium 3.9 (3.4-5.1) mmol/L Chloride 99 (98-107) mmol/L Carbon Dioxide 24 (22-32) mmol/L BUN 13 (9-20) mg/dL Creatinine 0.87 (0.66-1.25) mg/dL Estimated GFR > 60.0 (>60) mL/min BUN/Creatinine Ratio 14.9 (6-22) Glucose 247 H (80-110) mg/dL Calcium 9.6 (8.4-10.2) mg/dL Total Bilirubin 1.1 (0.2-1.3) mg/dL AST 24 (17-59) IU/L ALT 19 (<50) IU/L Alkaline Phosphatase 115 (38-126) U/L Total Creatine Kinase 151 (55-170) U/L CK-MB (CK-2) 3.57 H (<2.37) ng/mL CK-MB (CK-2) Rel Index 2.4 (1.5-5.0) % Troponin I < 0.012 (0.01-0.034) ng/mL Total Protein 8.1 (6.3-8.2) g/dL Albumin 4.4 (3.5-5.0) g/dL Globulin 3.7 (1.7-4.1) g/dL Albumin/Globulin Ratio 1.2 (1.0-2.8) Lipase 38 (23-300) U/L Stl C. cayetanensis PCR (Not Detect) Stool Rotavirus (PCR) (Not Detect) Stool Adenovirus (PCR) (Not Detect) Stool Astrovirus (PCR) (Not Detect) Stool Cryptosporidium PCR (Not Detect) Stl E.coli Shiga Tox PCR (Not Detect) St Sh/Enteroin Ecoli PCR (Not Detect) Stool E coli O157 PCR (Not Detect) Stl Enterotoxigenic E PCR (Not Detect) Stool EPEC (PCR) (Not Detect) Stl E. histolytica PCR (Not Detect) Stool Giardia Lamblia PCR (Not Detect) Stool Sapovirus (PCR) (Not Detect) Stl P. shigelloides PCR (Not Detect) St Y.enterocolitica PCR (Not Detect) Stool Vibrio (PCR) (Not Detect) Stl Vibrio cholerae PCR (Not Detect) Stl Enteroaggr Ecoli PCR (Not Detect) Stl Norovirus GI/GII PCR (Not Detect) Campylobacter (PCR) (Not Detect) C. difficile Tox (PCR) (Not Detect) Salmonella (PCR) (Not Detect) Imaging Data Chest x-ray: Attestation: I personally reviewed and interpreted this imaging study as follows: My Impression: Pneumonia or infiltrate noted. No cardiomegaly. Normal mediastinum. Normal bony structures. No subcutaneous. Radiologist's Impression: CT scan - abdomen/pelvis: Radiologist's Impression: Acute sigmoid diverticulitis with severe oral adjacent tiny gas bubbles compatible with micro perforation. Small amount of free fluid in the pelvis. Enhancing fluid collection to suggest abscess. ECG Data Attestation: I personally reviewed and interpreted this ECG as follows: Prior ECG tracings: available for review Interpretation: Sinus rhythm rate of 97 WI 166 QRS 94 QTC of 469. Some motion artifact in V3. No ST elevation is appreciated. No depression. Patient has prior from 12/11/2019 which appears similar. MDM Narrative Medical decision making narrative: Patient comes in with abdominal pain, afebrile but having persistent vomiting and has had diarrhea. Patient's labs show slightly elevated white count 135 with a glucose of 247 and normal renal function electrolytes otherwise. LFTs are otherwise normal. CK-MB is elevated 3.57 troponin and EKG were included which do not show any acute findings as patient has had a little bit more shortness of breath with his nausea and vomiting. He has denied any chest pain or pressure. He is quite tender on exam bladder scan only showed 166 mL he had not made any urine yet. CT abdomen pelvis was included and patient has acute sigmoid diverticulitis there are some tiny gas bubbles compatible with micro perforation and small amount of free fluid but no fluid collection that suggest abscess at this time. Patient was started on Zosyn. Discussed with the hospitalist, DUSTY Jj who accepts, he asks that we include general surgery. Also spoke with General surgery at the hospitalist request and Dr. Ryder will see patient in the am. Discharge Plan Departure Patient Disposition: Admitted As Inpatient Clinical Impression: Diverticulitis, Abdominal pain, vomiting, and diarrhea Referrals: Gasper Rutherford DO [Primary Care Provider] - Admit Date/Time: 01/11/20 00:28 Admit Provider: Dom Jj
[2020-01-10 22:03] LABS: Add Manual Diff / Slide Review NO; Basophils Absolute Auto 100 /uL (0-100); Basophils Percent Auto 0.5 % (0-2); Eosinophils Absolute Auto 100 /uL (0-450); Eosinophils Percent Auto 0.5 % (2-4); Hematocrit 40.1 % (41-53); Hemoglobin 13.9 g/dL (13.5-17.5); Lymphocytes Absolute Auto 1100 /uL (1100-4500); Lymphocytes Percent Auto 9.9 % (25-40); Mean Corpuscular HGB Conc 34.8 % (30-36); Mean Corpuscular Hemoglobin 32.1 PG (26-34); Mean Corpuscular Volume 92.2 fL (80-100); Monocytes Absolute Auto 400 /uL (0-900); Monocytes Percent Auto 3.8 % (3-14); Neutrophils Absolute Auto 9700 /uL (1500-7000); Neutrophils Percent Auto 85.3 % (50-75); Platelet Count 307 X10^3/uL (150-400); Red Blood Cell Count 4.34 X10^6/uL (4.5-5.9); Red Cell Distribution Width 13.4 % (11.6-14.8); White Blood Cell Count 11.4 X10^3/uL (4.5-11.0)
[2020-01-10 22:04] LABS: INR 1.2 (0.9-1.3); Prothrombin Time 14.3 SECONDS (10.1-12.7)
[2020-01-10 22:06] LABS: PTT Partial Thromboplastin Tim 29 SECONDS (26.4-36.2)
[2020-01-10 22:08] LABS: Alanine Aminotransferase 19 IU/L (<50); Albumin 4.4 g/dL (3.5-5.0); Albumin Globulin Ratio 1.2 (1.0-2.8); Alkaline Phosphatase 115 U/L (38-126); Aspartate Aminotransferase 24 IU/L (17-59); BUN Creatinine Ratio 14.9 (6-22); Bilirubin Total 1.1 mg/dL (0.2-1.3); Blood Urea Nitrogen 13 mg/dL (9-20); Calcium 9.6 mg/dL (8.4-10.2); Carbon Dioxide 24 mmol/L (22-32); Chloride 99 mmol/L (98-107); Estimated Glomerular Filt Rate > 60.0 mL/min (>60); Globulin 3.7 g/dL (1.7-4.1); Glucose 247 mg/dL (80-110); HEMOLYSIS < 15 (0-50); Lipase 38 U/L (23-300); Potassium 3.9 mmol/L (3.4-5.1); Sodium 135 mmol/L (137-145); Total Protein 8.1 g/dL (6.3-8.2)
[2020-01-10] MEDS: SODIUM CHLORIDE 0.9% 1,000 ML 1000 ML IV (22:11)
[2020-01-10] MEDS: ONDANSETRON 4 MG/2 ML INJ IV (22:11)
--- NOTE | 2020-01-10 22:23 | DI.CT.S_ITS ---
PROCEDURE: CT ABDOMEN PELVIS W CON INDICATIONS: lower abdominal pain, vomiting and diarrhea TECHNIQUE: After the administration of intravenous contrast, 5 mm thick sections acquired from the diaphragm to the symphysis. 5 mm coronal and sagittal reformats were acquired. For radiation dose reduction, the following was used: automated exposure control, adjustment of mA and/or kV according to patient size. COMPARISON: [facility], CT, ABDOMEN/PELVIS WITH CONTRAST, 11/04/2015, 20:49. FINDINGS: Image quality: Excellent. ABDOMEN: Lung bases: Lung bases are clear. Heart size is normal. Solid organs: Liver is normal in size and enhancement. Gallbladder is within normal limits small hiatal hernia.. Biliary system is non dilated. Pancreas enhances normally. Spleen is normal in size and enhancement. No adrenal nodules. Kidneys demonstrate normal size and enhancement, without hydronephrosis. Peritoneum and bowel: These stomach is nondistended. There are mildly dilated loops of small bowel within the left hemipelvis adjacent to the proximal sigmoid colon. Appendix is normal. Colon is nondistended. Diverticulosis of the descending and sigmoid colon is present. There is moderate thickening of the proximal and mid sigmoid colon. Moderate fat stranding surrounds the proximal sigmoid colon. No pericolonic abscess. Small amount of contained pneumoperitoneum at the superior aspect of the proximal sigmoid colon. No free pneumoperitoneum. Small amount of free fluid within the pelvis. Nodes and vessels: No retroperitoneal or mesenteric adenopathy by size criteria. Aorta and inferior vena cava are normal in size. Miscellaneous: No ventral hernias. PELVIS: Genitourinary: Bladder wall thickness is normal. There is obscuration of fat planes between the mid/proximal sigmoid colon and the urinary bladder dome. Miscellaneous: No inguinal hernias or adenopathy. Bones: No suspicious bony lesions. No vertebral body compression fractures. IMPRESSION: 1. Proximal sigmoid diverticulitis, with a small amount of adjacent contained pneumoperitoneum. 2. No abscess. 3. Obscured fat planes between the proximal sigmoid colon and urinary bladder; close clinical followup is recommended to exclude developing colovesical fistula. 4. Concordant with preliminary interpretation. Dictated by: Perri Castillo M.D. on 01/11/2020 at 7:52 Approved by: Perri Castillo M.D. on 01/11/2020 at 7:58
--- NOTE | 2020-01-10 22:26 | DI.RAD.S_ITS ---
PROCEDURE: XR CHEST 1V INDICATIONS: shortness of breath, nausea, vomiting TECHNIQUE: One view of the chest was acquired. COMPARISON: [facility], CR, XR CHEST 1V, 12/11/2019, 4:02. FINDINGS: Surgical changes and devices: None. Lungs and pleura: Lungs are clear. No pleural effusions or pneumothorax. Mediastinum: Mediastinal contours appear normal. Heart size is normal. Bones and chest wall: No suspicious bony lesions. Overlying soft tissues appear unremarkable. IMPRESSION: No acute process. Dictated by: Perri Castillo M.D. on 01/11/2020 at 8:11 Approved by: Perri Castillo M.D. on 01/11/2020 at 8:12
[2020-01-10 22:30] VITALS: BP 120/87; PULSE 93; RESP 20; TEMP 37.4; O2SAT 97
[2020-01-10] MEDS: MORPHINE 4 MG/ML INJ IV (22:37)
[2020-01-10 22:49] LABS: Creatine Kinase 151 U/L (55-170)
[2020-01-10 23:00] VITALS: BP 132/63; PULSE 91; RESP 18; O2SAT 93
[2020-01-10 23:02] LABS: Troponin I < 0.012 ng/mL (0.01-0.034)
[2020-01-10 23:04] LABS: CKMB % Relative Index 2.4 % (1.5-5.0); Creatine Kinase MB 3.57 ng/mL (<2.37)
[2020-01-11] VITALS (13 sets, daily range): BP systolic 87–160; BP diastolic 51–77; PULSE 76–99; RESP 14–20; TEMP 36.6–38.3; O2SAT 89–96; BMI 32.3
[2020-01-11] MEDS: PIPERACILLIN-TAZO 4.5 GM/100 ML FROZ.PIGGY IV ×4 (00:15→17:53)
[2020-01-11] MEDS: HYDROMORPHONE 0.5 MG INJ IV (00:15)
[2020-01-11 00:17] LABS: Adenovirus F 40/41 Not Detected (Not Detect); Astrovirus Not Detected (Not Detect); Campylobacter Not Detected (Not Detect); Clostridium difficile toxin AB Not Detected (Not Detect); Cryptosporidium Not Detected (Not Detect); Cyclospora cayetanensis Not Detected (Not Detect); Entamoeba histolytica Not Detected (Not Detect); Enteroaggregative E.coli Not Detected (Not Detect); Enteropathogenic E.coli Not Detected (Not Detect); Enterotoxigenic E.coli It/st Not Detected (Not Detect); Giardia lamblia Not Detected (Not Detect); Norovirus GI/GII Not Detected (Not Detect); Plesiomonsa shigelloides Not Detected (Not Detect); Rotavirus A Not Detected (Not Detect); Salmonella Not Detected (Not Detect); Sapovirus Not Detected (Not Detect); Shiga-like toxin-prod E.coli Not Detected (Not Detect); Shigella/Enteroinvasive E.coli Not Detected (Not Detect); Vibrio Not Detected (Not Detect); Vibrio cholerae Not Detected (Not Detect); Yersinia enterocolitica Not Detected (Not Detect)
--- NOTE | 2020-01-11 01:44 | PM.HP.1 ---
History of Present Illness History of Present Illness Date Patient Seen: 01/11/20 Time Patient Seen: 01:34 Chief complaint: vomiting, diarrhea, fever, son thinks Wing Virus Narrative: Mr. Rashad Randall is a 64-year-old male with a history significant for coronary artery disease with CT status post coronary stents, COPD, hypertension, hyperlipidemia, poorly controlled diabetes type 2, on insulin, with diabetic neuropathy, chronic kidney disease stage 2, hypothyroidism, GERD and recurrent TIAs who presents to the emergency department for acute onset of abdominal pain this afternoon. The patient reports to feeling acute lower abdominal pain with associated nausea vomiting and diarrhea. Reports vomiting several times at home and having multiple episodes of diarrhea with the 1st stool being formed: He denies blood in the stool or emesis. He has had associated chills, dizziness and sweats. He describes the pain as sharp and aching and rates intensity at 6/10. He reports that is abdomen is no more distended than usual. He denies contact travel or contact with questionable food sources. He does have family members whom are ill but none have GI symptoms. Patient was recently hospitalized at [facility] from 12/05 to 12/06/2019 for chest pain and discharged home to follow-up with his primary care. Was subsequently admitted to [facility] where he underwent cardiac stenting of unknown vessel(s). The patient has been pain-free since being discharged on 12/16/2019. Patient denies headaches or or visual changes, neck or back pain, chest pain or palpitations. He has chronic shortness of breath with chronic cough does not require home O2. He has abdominal pain as described above. Reports no difficulty urinating and has been on Lasix. Patient ambulates with a cane. Upon arrival to the ER the patient had temperature 98.7?, heart rate of 1 was 7, blood pressure of 142/80, respirations 24 saturating 96% on room air. Patient's chest x-ray was unremarkable, he had a CT of the abdomen pelvis which finds acute sigmoid diverticulitis with several small gas bubbles consistent with microperforation, trace free fluid consistent and adjacent mesenteric inflammation. On laboratory analysis the patient has white count of 11.4 with a left shift, hemoglobin of 13.9, hematocrit of 40.1, platelets 307. On coagulation he has a PT of 14.3, INR 1.2, PTT of 29. His electrolytes are within normal range and he has a BUN of 13 and creatinine of 0.87. His nonfasting glucose is 247. His liver functions are all within normal limits. He has a total CK of 151, CK-MB of 3.57, index of 2.4 and a troponin that is negative at less than 0.012. GI PCR panel is negative. Requested general surgery consult Dr. Ryder has been contacted by the ER provider in agreed to see the patient. The patient is admitted to the medicine service for abdominal pain with sigmoid diverticulitis and microperforation and management of his multiple comorbid conditions. Patient History Medical History (Updated 01/11/20 @ 02:59 by LESVIA Escobedo) Chicken pox (Resolved 1956) Chickenpox (Resolved 1956) Chronic cough (Chronic) COPD (chronic obstructive pulmonary disease) (Chronic) Coronary artery disease (Chronic 2006) Depression (Chronic 2008) Diabetes (Chronic 1994) Eczema (Chronic) Foot pain (Chronic) GERD (gastroesophageal reflux disease) (Chronic 2012) Gout (Resolved) History of recurrent TIAs (Acute) Hyperlipidemia (Chronic) Hypertension (Chronic) Hypothyroidism (Chronic) Kidney disease (Chronic 2009) Measles (Resolved 1955) Measles (Resolved 1955) Mumps (Resolved 1958) Mumps (Resolved 1958) Neuropathy (Chronic) Obstructive sleep apnea (Chronic) Shoulder pain (Chronic) Status post myocardial infarction (Resolved) Strain of muscle of right groin region (Resolved 03/30/18) Well adult exam (Acute) Surgical History Anesthesia (Resolved) History of heart artery stent (Resolved 2006) History of heart artery stent (Resolved 2010) Hx of shoulder surgery (Resolved 2005) Family & Social History Social History: household members other,children Prior Living Arrangements House Safety & Behavioral: Feels Safe in Current Yes Environment Been Physically Hurt or No Threatened By a Person Suicidal Ideation Description None Suicide Plan Description No Plan Tobacco & Substance use: Tobacco type cigarettes Smoking Status Current every day smoker Smoking packs per day 1 alcohol intake current alcohol intake frequency 0-2 drinks per day Substance Use Type marijuana Comment: The patient is and lives in a single family home with his children. Smoking: Patient continues to smoke 1/2 pack per day, smoker for 45 years. Alcohol: Patient previously heavy alcohol intake to 2.5 gal of whiskey per week now reports 2-3 drinks per month. Substance use: Patient sources occasionally he has marijuana. Advanced directives: Patient states his wish to be FULL CODE. Designates his son Cy Randall to be a surrogate decision maker. Meds Home Medications and Allergies Home Medications Medication Instructions Recorded Confirmed Type pen needle, diabetic 29 gauge x #100 each 03/11/18 12/21/19 Rx 1/2 pen needle, diabetic 31 gauge x #100 each 09/09/18 12/21/19 Rx 5/16 ipratropium-albuterol 3 ml INH QID #360 ml 03/12/19 01/11/20 Rx nicotine 21 mg TOPICAL DAILY #30 ea 03/12/19 01/11/20 Rx metoprolol tartrate 25 mg tablet 25 mg PO BID #180 tab 08/02/19 01/11/20 Rx Disabled Parking Permit #1 ea 08/26/19 01/11/20 Rx Test strips #1 ea 10/10/19 12/21/19 Rx lancets #1 each 10/10/19 12/21/19 Rx oxycodone-acetaminophen 5 mg-325 1 tab PO Q8H PRN #30 tab 10/10/19 01/11/20 Rx mg tablet triamcinolone acetonide 0.1 % 1 applictn TOP DAILY #30 gram 10/10/19 01/11/20 Rx topical cream beclomethasone dipropionate 40 1 inhalation INHALATION BID #10.6 10/12/19 01/11/20 Rx mcg/actuation HFA breath activated gram aerosol isosorbide mononitrate 60 mg 60 mg PO QAM #90 tab 10/12/19 01/11/20 Rx tablet,extended release 24 hr meclizine 25 mg tablet 25 mg PO TID PRN #10 tab 10/12/19 01/11/20 Rx Glucometer #1 ea 10/17/19 12/21/19 Rx levothyroxine 50 mcg tablet 50 mcg PO QAM #90 tab 10/21/19 01/11/20 Rx albuterol sulfate 90 mcg/actuation 2 puff INHALATION QID PRN #18 gram 12/05/19 01/11/20 Rx aerosol inhaler insulin aspart U-100 100 unit/mL See Rx Instructions SUBCUT 12/05/19 01/11/20 Rx (3 mL) subcutaneous pen .COMPLEX #15 ml nitroglycerin 0.4 mg sublingual 0.4 mg SUBLINGUAL PRN PRN tab 12/21/19 01/11/20 History tablet atorvastatin 40 mg tablet 40 mg PO BEDTIME #90 tab 12/23/19 01/11/20 Rx gabapentin 300 mg capsule 900 mg PO BID #180 cap 12/23/19 01/11/20 Rx lisinopril 2.5 mg tablet 2.5 mg PO QAM #30 tab 12/23/19 01/11/20 Rx omeprazole 20 mg tablet,delayed 20 mg PO DAILY #30 tab 12/23/19 01/11/20 Rx release bupropion HCl 150 mg tablet,12 hr 150 mg PO DAILY #90 each 01/03/20 01/11/20 Rx sustained-release citalopram 40 mg tablet 40 mg PO DAILY #90 tab 01/03/20 01/11/20 Rx clopidogrel 75 mg tablet 75 mg PO DAILY #90 tab 01/03/20 01/11/20 Rx insulin degludec 200 unit/mL (3 150 unit SUBCUT BEDTIME #9 ml 01/03/20 01/11/20 Rx mL) subcutaneous pen levothyroxine 75 mcg capsule 75 mcg PO DAILY #90 cap 01/06/20 01/11/20 Rx Allergies Allergy/AdvReac Type Severity Reaction Status Date / Time adhesive Allergy Mild REDNESS/ITC Verified 12/21/19 11:07 HINESS Review of Systems Review of Systems ROS: Yes All systems reviewed with the patient and are negative except as otherwise documented Exam Vital Signs (past 8 hours): - 01/10/20 21:48 01/10/20 22:30 01/10/20 23:00 Temperature 98.7 F 99.3 F Pulse Rate 107 H 93 H 91 H Respiratory Rate 24 20 18 Blood Pressure 100/45 L Blood Pressure [Left Arm] 120/87 132/63 Pulse Oximetry 96 97 93 01/11/20 00:00 01/11/20 01:00 Temperature Pulse Rate 95 H 95 H Respiratory Rate 20 20 Blood Pressure Blood Pressure [Left Arm] 160/71 H 122/59 L Pulse Oximetry 93 Oxygen Delivery Method Room Air Narrative Exam Narrative: GENERAL APPEARANCE: well developed, obese male with a BMI of 31.8 lying supine in bed uncomfortable appearing. HEENT: Normocephalic, PERRLA, conjunctiva clear sclera is anicteric,, EOMs intact without nystagmus, no rhinorrhea, mucous membranes are moist and pink NECK/THYROID: neck supple, no JVD, no thyromegaly, trachea midline. LYMPH NODES: no cervical or supraclavicular lymphadenopathy. SKIN: [place], warm and dry, no visible lesions or rashes. HEART: regular rate and rhythm, S1-S2, no murmur, no rubs or gallops, brisk capillary refill, 2+ dorsalis pedis pulses, no edema LUNGS: Somewhat diminished breath sounds, and mild expiratory wheeze, no coarseness or crackles, no cough present CHEST: Symmetrical movement, no accessory muscle use, good tidal volume. ABDOMEN: Firm, distended, tender to palpation bilateral lower quadrants greater than upper quadrants with guarding, no rebound, no abdominal pain on heel strike, no organomegaly, active bowel tones. EXTREMITIES: moves all extremities, strength is 5/5 and symmetrical, no deformities or joint effusions. NEUROLOGIC: AAO x3, no lateralizing neurologic deficits, cranial nerves II-XII grossly intact, neuropathy bilateral feet. PSYCH: Fair eye contact, cooperative, appropriate with stable behavior Objective Labs Result Diagrams: 01/10/20 21:47 01/10/20 21:47 Labs: Laboratory Results - last 24 hr 01/10/20 01/10/20 01/10/20 21:45 21:47 21:47 WBC 11.4 H RBC 4.34 L Hgb 13.9 Hct 40.1 L MCV 92.2 MCH 32.1 MCHC 34.8 RDW 13.4 Plt Count 307 Neut % (Auto) 85.3 H Lymph % (Auto) 9.9 L Boundary % (Auto) 3.8 Eos % (Auto) 0.5 L Baso % (Auto) 0.5 Neut # (Auto) 9700 H Lymph # (Auto) 1100 Boundary # (Auto) 400 Eos # (Auto) 100 Baso # (Auto) 100 PT 14.3 H INR 1.2 APTT 29 D Sodium Potassium Chloride Carbon Dioxide BUN Creatinine Estimated GFR BUN/Creatinine Ratio Glucose Calcium Total Bilirubin AST ALT Alkaline Phosphatase Total Creatine Kinase CK-MB (CK-2) CK-MB (CK-2) Rel Index Troponin I Total Protein Albumin Globulin Albumin/Globulin Ratio Lipase Stl C. cayetanensis PCR Not detected Stool Rotavirus (PCR) Not detected Stool Adenovirus (PCR) Not detected Stool Astrovirus (PCR) Not detected Stool Cryptosporidium PCR Not detected Stl E.coli Shiga Tox PCR Not detected St Sh/Enteroin Ecoli PCR Not detected Stool E coli O157 PCR Not detected Stl Enterotoxigenic E PCR Not detected Stool EPEC (PCR) Not detected Stl E. histolytica PCR Not detected Stool Giardia Lamblia PCR Not detected Stool Sapovirus (PCR) Not detected Stl P. shigelloides PCR Not detected St Y.enterocolitica PCR Not detected Stool Vibrio (PCR) Not detected Stl Vibrio cholerae PCR Not detected Stl Enteroaggr Ecoli PCR Not detected Stl Norovirus GI/GII PCR Not detected Campylobacter (PCR) Not detected C. difficile Tox (PCR) Not detected Salmonella (PCR) Not detected 01/10/20 01/10/20 21:47 21:47 WBC RBC Hgb Hct MCV MCH MCHC RDW Plt Count Neut % (Auto) Lymph % (Auto) Boundary % (Auto) Eos % (Auto) Baso % (Auto) Neut # (Auto) Lymph # (Auto) Boundary # (Auto) Eos # (Auto) Baso # (Auto) PT INR APTT Sodium 135 L Potassium 3.9 Chloride 99 Carbon Dioxide 24 BUN 13 Creatinine 0.87 Estimated GFR > 60.0 BUN/Creatinine Ratio 14.9 Glucose 247 H Calcium 9.6 Total Bilirubin 1.1 AST 24 ALT 19 Alkaline Phosphatase 115 Total Creatine Kinase 151 CK-MB (CK-2) 3.57 H CK-MB (CK-2) Rel Index 2.4 Troponin I < 0.012 Total Protein 8.1 Albumin 4.4 Globulin 3.7 Albumin/Globulin Ratio 1.2 Lipase 38 Stl C. cayetanensis PCR Stool Rotavirus (PCR) Stool Adenovirus (PCR) Stool Astrovirus (PCR) Stool Cryptosporidium PCR Stl E.coli Shiga Tox PCR St Sh/Enteroin Ecoli PCR Stool E coli O157 PCR Stl Enterotoxigenic E PCR Stool EPEC (PCR) Stl E. histolytica PCR Stool Giardia Lamblia PCR Stool Sapovirus (PCR) Stl P. shigelloides PCR St Y.enterocolitica PCR Stool Vibrio (PCR) Stl Vibrio cholerae PCR Stl Enteroaggr Ecoli PCR Stl Norovirus GI/GII PCR Campylobacter (PCR) C. difficile Tox (PCR) Salmonella (PCR) Assessment & Plan Assessment & Plan narrative: 1. Abdominal pain, sigmoid diverticulitis with microperforation, present on admission, active. -Patient with onset of acute lower abdominal pain afternoon with recurrent episodes of nausea vomiting and diarrhea. -Patient denies hematemesis, hematochezia or melena or abdominal bloating. -CT exam finds acute sigmoid diverticulitis with several adjacent tiny gas bubbles compatible with microperforation, adjacent mesenteric inflammation with free fluid. -white count is 11.4 with left shift, ordered procalcitonin. -requested surgical is consult through the ER, we appreciate Dr. Ryder's consult, evaluation and recommendations. -patient will remain NPO, lactated Ringer's 100 cc/hour. 2. COPD, present on admission, active -patient chronic cough secondary to COPD, he denies shortness of breath arrest but reports exertional dyspnea. -respiratory therapy to consult, eval and treat -DuoNebs every 6 hours as needed. -albuterol nebulizer every 2 hours as needed -supplemental O2 as needed. 3. Alcohol abuse, chronic, present on admission. Stable. -with patient states that he is trying to stop drinking and reports drinking 2-3 drinks per month. -no evidence of tremors or withdrawal symptoms, patient denies experiencing DTs or withdrawal seizures. 4. Coronary artery disease status post stenting, chronic, present on admission, stable. -the patient with a history of CT in 2006 with stent placement with additional stenting in 2010. -the patient was discharged from [facility] on 12/16/2019 after having stent placement in unknown artery. -the patient presently has no evidence of edema or pulmonary congestion. Will hold Lasix for now -Continue atorvastatin 40 mg daily at bedtime, Imdur 60 mg daily, lisinopril 2.5 mg daily, and metoprolol tartrate 25 mg twice daily. -the patient is status post stenting last month will continue clopidogrel 75 mg daily. -request recent medical records from [facility]. 5. Hypertension, chronic, present on admission. Stable. -Continue home regimen of isosorbide 60 mg daily, lisinopril 2.5 mg daily, and metoprolol tartrate 25 mg twice daily. 6. Hyperlipidemia, chronic, present on admission. Stable. -Continue home regimen atorvastatin 40 mg daily at bedtime. 7. Diabetes mellitus type 2, insulin using, present on admission. Stable. -hemoglobin A1c was 8.3 on 12/21/2019 improved from 10.5 in September 2019. Blood sugar upon arrival the floor is 163. -patient with bilateral lower extremity neuropathy in preserved renal function. -patient takes Lantus 80 units twice daily and is NPO, will hold Lantus and tract blood sugars. He is not currently using degledec. -blood glucose checks every 6 hours while NPO, ordered medium-dose correctional scale insulin. -Continue gabapentin 300 mg twice daily. 8. Chronic kidney disease stage 2, present on admission. Stable. -patient with previous history of chronic kidney disease stage 2 not in evidence on admission today. -admission labs showed BUN of 13 and creatinine of 0.87. EGFR is calculated greater than 60, calculated creatinine clearance is 107.16. -Continue to monitor creatinine periodically. 9. Hypothyroidism, chronic, present on admission. Stable. -Continue levothyroxine 50 mcg daily. 10. . Depression, chronic, present on admission. Stable. -Continue citalopram 40 mg daily and bupropion 150 mg daily. -continue bupropion 150 mg daily. 11. Tobacco dependence, chronic, present on admission. Stable. -1/2 pack per day smoking history for 45 years. -Ordered nicotine patch 21 mg daily as needed for nicotine withdrawal. 12. Obstructive sleep apnea not on CPAP, chronic, present on admission. Stable. -Encouraged compliance with CPAP and discussed effects of untreated KATI. -Ordered CPAP per RT protocol. 13. Recurrent transitory ischemic attacks, currently asymptomatic, stable. -patient reports having recurrent symptoms most recent event was during hospitalization [facility] during hypertensive episode with expressive aphasia. VTE prophylaxis: SCDs and heparin. IV fluid: Lactated Ringer's 100 cc/hour. Diet: NPO except meds. The patient is admitted to the hospital with abdominal pain and guarding related to sigmoid diverticulitis with microperforation. The patient is admitted with surgical consult, expected length of stay to be greater than 2 midnights. Scores GCS Elia coma scale eye opening: Spontaneous Elia coma scale verbal response: Orientated Elia coma scale motor response: Obey commands Elia coma scale total score: 15
[2020-01-11 02:05] LABS: Magnesium 1.2 mg/dL (1.6-2.3)
[2020-01-11] MEDS: HYDROMORPHONE 1 MG INJ IV ×4 (02:08→18:59)
[2020-01-11] MEDS: ACETAMINOPHEN 325 MG TABLET 650 MG PO ×2 (02:08→10:46)
[2020-01-11] MEDS: LACTATED RINGERS 1,000 ML 125 ML IV ×3 (02:08→23:24)
[2020-01-11 02:25] LABS: Procalcitonin 0.11 ng/mL (<0.5)
[2020-01-11] MEDS: MAGNESIUM SULFATE 2 GM/50 ML PIGGYBACK IV (03:32)
[2020-01-11 05:58] LABS: Add Manual Diff / Slide Review NO; Basophils Absolute Auto 100 /uL (0-100); Basophils Percent Auto 0.8 % (0-2); Eosinophils Absolute Auto 0 /uL (0-450); Eosinophils Percent Auto 0.1 % (2-4); Hematocrit 35.7 % (41-53); Hemoglobin 12.2 g/dL (13.5-17.5); Lymphocytes Absolute Auto 900 /uL (1100-4500); Lymphocytes Percent Auto 6.3 % (25-40); Mean Corpuscular HGB Conc 34.2 % (30-36); Mean Corpuscular Hemoglobin 31.5 PG (26-34); Mean Corpuscular Volume 92.1 fL (80-100); Monocytes Absolute Auto 900 /uL (0-900); Monocytes Percent Auto 5.9 % (3-14); Neutrophils Absolute Auto 12600 /uL (1500-7000); Neutrophils Percent Auto 86.9 % (50-75); Platelet Count 248 X10^3/uL (150-400); Red Blood Cell Count 3.87 X10^6/uL (4.5-5.9); Red Cell Distribution Width 13.5 % (11.6-14.8); White Blood Cell Count 14.5 X10^3/uL (4.5-11.0)
[2020-01-11 06:05] LABS: BUN Creatinine Ratio 13.9 (6-22); Blood Urea Nitrogen 15 mg/dL (9-20); Calcium 8.8 mg/dL (8.4-10.2); Carbon Dioxide 27 mmol/L (22-32); Chloride 101 mmol/L (98-107); Estimated Glomerular Filt Rate > 60.0 mL/min (>60); Glucose 170 mg/dL (80-110); HEMOLYSIS < 15 (0-50); Potassium 4.6 mmol/L (3.4-5.1); Sodium 135 mmol/L (137-145)
[2020-01-11] MEDS: ONDANSETRON 4 MG/2 ML INJ IV ×2 (06:10→18:59)
[2020-01-11] MEDS: LEVOTHYROXINE 50 MCG TABLET PO (06:10)
--- NOTE | 2020-01-11 06:26 | PC.NURSE ---
Pt is AxOx3, VSS, tolerating room air at 92% (hx COPD). Temp 100.9F, tylenol given Complaints of 7 out of 10 abdominal pain, relieved with 1mg IV dilaudid. Zofran given for some mild nausea. Abdomen is distended, rounded, slightly firm. Hypoactive Bowel tones, reports flatus. Pt unable to void still. Bladder scanned @0600 for 259mL; reported to LESVIA Jj, no interventions for now, pt feels like he might void soon. (He had also vomitted a lot and had a lot of diarrhea before admit) Still need UA Kept NPO Mg rider given LR@100mL/hr Tele: NSR B/L SCDs on (hx TIA) Ambulates with a cane at baseline. Pt very weak ambulating here now; requiring 1p FWW assist. Weak legs.
[2020-01-11] MEDS: INSULIN ASPART 100 UNIT/ML INSULN PEN SUBCUT ×3 (06:52→18:51)
[2020-01-11] MEDS: BECLOMETHASONE 40 MCG INH 10.6 GM 1 PUFF INH ×2 (08:41→20:53)
[2020-01-11] MEDS: ALBUTEROL 2.5 MG/3 ML NEB (ADULT) INH (08:44)
--- NOTE | 2020-01-11 09:24 | PM.CN ---
History of Present Illness Consult details Date Patient Seen: 01/11/20 Time Patient Seen: 09:25 Chief complaint: vomiting, diarrhea, fever, son thinks Wing Virus Reason for consult: Sigmoid diverticulitis with micro perforation Narrative: Patient developed sudden onset of generalized lower abdominal pain yesterday with some nausea and vomiting. Came [place] [id number] scan of the abdomen which confirms acute sigmoid diverticulitis with a micro perforation with contained extraluminal free air. There is no abscess noted. Patient is admitted for intravenous antibiotic therapy and close observation. Patient is an insulin-dependent diabetic has had previous coronary stents placed has TIAs and his history. He is not a good surgical candidate. Operation will be entertained only if absolutely mandated. Meds Home Medications and Allergies Home Medications Medication Instructions Recorded Confirmed Type pen needle, diabetic 29 gauge x #100 each 03/11/18 01/11/20 Rx 1/2 pen needle, diabetic 31 gauge x #100 each 09/09/18 01/11/20 Rx 5/16 ipratropium-albuterol 3 ml INH QID #360 ml 03/12/19 01/11/20 Rx nicotine 21 mg TOPICAL DAILY #30 ea 03/12/19 01/11/20 Rx metoprolol tartrate 25 mg tablet 25 mg PO BID #180 tab 08/02/19 01/11/20 Rx Disabled Parking Permit #1 ea 08/26/19 01/11/20 Rx Test strips #1 ea 10/10/19 01/11/20 Rx lancets #1 each 10/10/19 01/11/20 Rx oxycodone-acetaminophen 5 mg-325 1 tab PO Q8H PRN #30 tab 10/10/19 01/11/20 Rx mg tablet triamcinolone acetonide 0.1 % 1 applictn TOP DAILY #30 gram 10/10/19 01/11/20 Rx topical cream beclomethasone dipropionate 40 1 inhalation INHALATION BID #10.6 10/12/19 01/11/20 Rx mcg/actuation HFA breath activated gram aerosol isosorbide mononitrate 60 mg 60 mg PO QAM #90 tab 10/12/19 01/11/20 Rx tablet,extended release 24 hr meclizine 25 mg tablet 25 mg PO TID PRN #10 tab 10/12/19 01/11/20 Rx Glucometer #1 ea 10/17/19 01/11/20 Rx levothyroxine 50 mcg tablet 50 mcg PO QAM #90 tab 10/21/19 01/11/20 Rx albuterol sulfate 90 mcg/actuation 2 puff INHALATION QID PRN #18 gram 12/05/19 01/11/20 Rx aerosol inhaler insulin aspart U-100 100 unit/mL See Rx Instructions SUBCUT 12/05/19 01/11/20 Rx (3 mL) subcutaneous pen .COMPLEX #15 ml nitroglycerin 0.4 mg sublingual 0.4 mg SUBLINGUAL PRN PRN tab 12/21/19 01/11/20 History tablet atorvastatin 40 mg tablet 40 mg PO BEDTIME #90 tab 12/23/19 01/11/20 Rx gabapentin 300 mg capsule 900 mg PO BID #180 cap 12/23/19 01/11/20 Rx lisinopril 2.5 mg tablet 2.5 mg PO QAM #30 tab 12/23/19 01/11/20 Rx omeprazole 20 mg tablet,delayed 20 mg PO DAILY #30 tab 12/23/19 01/11/20 Rx release bupropion HCl 150 mg tablet,12 hr 150 mg PO DAILY #90 each 01/03/20 01/11/20 Rx sustained-release citalopram 40 mg tablet 40 mg PO DAILY #90 tab 01/03/20 01/11/20 Rx clopidogrel 75 mg tablet 75 mg PO DAILY #90 tab 01/03/20 01/11/20 Rx insulin degludec 200 unit/mL (3 150 unit SUBCUT BEDTIME #9 ml 01/03/20 01/11/20 Rx mL) subcutaneous pen levothyroxine 75 mcg capsule 75 mcg PO DAILY #90 cap 01/06/20 01/11/20 Rx Allergies Allergy/AdvReac Type Severity Reaction Status Date / Time adhesive Allergy Mild REDNESS/ITC Verified 12/21/19 11:07 HINESS Exam Vital Signs (past 8 hours): - 01/11/20 05:30 01/11/20 07:45 01/11/20 08:41 Temperature 99.7 F H 98.5 F Pulse Rate 88 83 83 Respiratory Rate 16 16 18 Blood Pressure 105/56 L 99/60 Pulse Oximetry 95 96 96 Oxygen Delivery Method Room Air Oxygen Flow Rate 0 Narrative Exam Narrative: Patient is alert and oriented slightly febrile 99.7. He is complaining of lower abdominal pain particularly in the left side. Lungs distant breath sounds with no rales or wheezes Heart slightly irregular rhythm without murmur Abdomen distended with marked tenderness in the left lower quadrant. No masses palpated. Patient does have an umbilical hernia. Objective Labs Result Diagrams: 01/11/20 05:33 01/11/20 05:33 Labs: Laboratory Results - last 24 hr 01/10/20 01/10/20 01/10/20 21:45 21:47 21:47 WBC 11.4 H RBC 4.34 L Hgb 13.9 Hct 40.1 L MCV 92.2 MCH 32.1 MCHC 34.8 RDW 13.4 Plt Count 307 Neut % (Auto) 85.3 H Lymph % (Auto) 9.9 L [place] % (Auto) 3.8 Eos % (Auto) 0.5 L Baso % (Auto) 0.5 Neut # (Auto) 9700 H Lymph # (Auto) 1100 [place] # (Auto) 400 Eos # (Auto) 100 Baso # (Auto) 100 PT 14.3 H INR 1.2 APTT 29 D Sodium Potassium Chloride Carbon Dioxide BUN Creatinine Estimated GFR BUN/Creatinine Ratio Glucose Calcium Magnesium Total Bilirubin AST ALT Alkaline Phosphatase Total Creatine Kinase CK-MB (CK-2) CK-MB (CK-2) Rel Index Troponin I Total Protein Albumin Globulin Albumin/Globulin Ratio Lipase Procalcitonin Stl C. cayetanensis PCR Not detected Stool Rotavirus (PCR) Not detected Stool Adenovirus (PCR) Not detected Stool Astrovirus (PCR) Not detected Stool Cryptosporidium PCR Not detected Stl E.coli Shiga Tox PCR Not detected St Sh/Enteroin Ecoli PCR Not detected Stool E coli O157 PCR Not detected Stl Enterotoxigenic E PCR Not detected Stool EPEC (PCR) Not detected Stl E. histolytica PCR Not detected Stool Giardia Lamblia PCR Not detected Stool Sapovirus (PCR) Not detected Stl P. shigelloides PCR Not detected St Y.enterocolitica PCR Not detected Stool Vibrio (PCR) Not detected Stl Vibrio cholerae PCR Not detected Stl Enteroaggr Ecoli PCR Not detected Stl Norovirus GI/GII PCR Not detected Campylobacter (PCR) Not detected C. difficile Tox (PCR) Not detected Salmonella (PCR) Not detected 01/10/20 01/10/20 01/10/20 21:47 21:47 21:47 WBC RBC Hgb Hct MCV MCH MCHC RDW Plt Count Neut % (Auto) Lymph % (Auto) [place] % (Auto) Eos % (Auto) Baso % (Auto) Neut # (Auto) Lymph # (Auto) [place] # (Auto) Eos # (Auto) Baso # (Auto) PT INR APTT Sodium 135 L Potassium 3.9 Chloride 99 Carbon Dioxide 24 BUN 13 Creatinine 0.87 Estimated GFR > 60.0 BUN/Creatinine Ratio 14.9 Glucose 247 H Calcium 9.6 Magnesium 1.2 L Total Bilirubin 1.1 AST 24 ALT 19 Alkaline Phosphatase 115 Total Creatine Kinase 151 CK-MB (CK-2) 3.57 H CK-MB (CK-2) Rel Index 2.4 Troponin I < 0.012 Total Protein 8.1 Albumin 4.4 Globulin 3.7 Albumin/Globulin Ratio 1.2 Lipase 38 Procalcitonin Stl C. cayetanensis PCR Stool Rotavirus (PCR) Stool Adenovirus (PCR) Stool Astrovirus (PCR) Stool Cryptosporidium PCR Stl E.coli Shiga Tox PCR St Sh/Enteroin Ecoli PCR Stool E coli O157 PCR Stl Enterotoxigenic E PCR Stool EPEC (PCR) Stl E. histolytica PCR Stool Giardia Lamblia PCR Stool Sapovirus (PCR) Stl P. shigelloides PCR St Y.enterocolitica PCR Stool Vibrio (PCR) Stl Vibrio cholerae PCR Stl Enteroaggr Ecoli PCR Stl Norovirus GI/GII PCR Campylobacter (PCR) C. difficile Tox (PCR) Salmonella (PCR) 01/10/20 01/11/20 01/11/20 21:47 05:33 05:33 WBC 14.5 H RBC 3.87 L Hgb 12.2 L Hct 35.7 L MCV 92.1 MCH 31.5 MCHC 34.2 RDW 13.5 Plt Count 248 Neut % (Auto) 86.9 H Lymph % (Auto) 6.3 L [place] % (Auto) 5.9 Eos % (Auto) 0.1 L Baso % (Auto) 0.8 Neut # (Auto) 30439 H Lymph # (Auto) 900 L [place] # (Auto) 900 Eos # (Auto) 0 Baso # (Auto) 100 PT INR APTT Sodium 135 L Potassium 4.6 Chloride 101 Carbon Dioxide 27 BUN 15 Creatinine 1.08 Estimated GFR > 60.0 BUN/Creatinine Ratio 13.9 Glucose 170 H Calcium 8.8 Magnesium Total Bilirubin AST ALT Alkaline Phosphatase Total Creatine Kinase CK-MB (CK-2) CK-MB (CK-2) Rel Index Troponin I Total Protein Albumin Globulin Albumin/Globulin Ratio Lipase Procalcitonin 0.11 Stl C. cayetanensis PCR Stool Rotavirus (PCR) Stool Adenovirus (PCR) Stool Astrovirus (PCR) Stool Cryptosporidium PCR Stl E.coli Shiga Tox PCR St Sh/Enteroin Ecoli PCR Stool E coli O157 PCR Stl Enterotoxigenic E PCR Stool EPEC (PCR) Stl E. histolytica PCR Stool Giardia Lamblia PCR Stool Sapovirus (PCR) Stl P. shigelloides PCR St Y.enterocolitica PCR Stool Vibrio (PCR) Stl Vibrio cholerae PCR Stl Enteroaggr Ecoli PCR Stl Norovirus GI/GII PCR Campylobacter (PCR) C. difficile Tox (PCR) Salmonella (PCR) Assessment & Plan Assessment & Plan narrative: Poor risk patient with insulin-dependent diabetes history of coronary stents history of TIAs with acute diverticulitis with micro perforation. Plan is to treat him with intravenous antibiotic therapy and close observation. Resection will be entertained only if clinical condition deteriorates with hypotension and signs of systemic sepsis. Patient understands this and has no unanswered questions.
[2020-01-11] MEDS: HEPARIN 5,000 UNIT/ML VIAL 5000 UNIT SUBCUT ×2 (09:43→20:52)
[2020-01-11] MEDS: PANTOPRAZOLE 40 MG VIAL IV (09:43)
[2020-01-11] MEDS: NICOTINE 21 MG PATCH TOP (09:43)
[2020-01-11] MEDS: CLOPIDOGREL 75 MG TABLET PO (09:53)
[2020-01-11] MEDS: CITALOPRAM 20 MG TABLET 40 MG PO (09:53)
[2020-01-11] MEDS: ISOSORBIDE MONONITRATE ER 30 MG TABLET 60 MG PO (09:53)
[2020-01-11] MEDS: GABAPENTIN 300 MG CAPSULE 900 MG PO ×2 (09:53→20:52)
[2020-01-11] MEDS: buPROPion SR 150 MG TAB PO (09:53)
[2020-01-11] MEDS: HYDROMORPHONE 1 MG INJ 0.5 MG IV ×2 (10:47→11:13)
--- NOTE | 2020-01-11 12:06 | CM.DANOTE ---
DCP Assessment: (EMR Reviewed): Patient is a 64 year old male admitted to the care of the hospitalist team for Sigmoid Diverticulitis. Met with patient in his room and introduced self and role. Confirmed PCP Dr. Rutherford. Patient reports he lives in a home in [place] with his son and [id number]-aly and their 4 children. The home has 4 stairs into entrance. Patient reports at baseline uses a cane to ambulate. Drives very rarely; only once or twice a month and only in town, never on the freeway. Patient reports family mainly drives him to and from appointments and helps him at home. Both his son and [id number] work multimedia specialist, but patient has previously used [facility] and would like to continue services with them after discharge. Patient met with surgeon this morning for consult and current plan of care is for no surgery and to continue with IV antibiotics and monitor patient condition. I: [facility] P: Home with [facility] and family support. Will contact [facility] for continued service and update patient and careteam. Will continue to monitor and be available for discharge needs. SN Amirah Jesus RN Discharge Planning/Care Management CM Discharge Assessment Start: 01/11/20 12:02 Freq: Status: Active Protocol: Document 01/11/20 12:02 (Rec: 01/11/20 12:06 [id number]) Discharge Planning Assessment Assigned Architectural Coating Finisher Amirah Spangler RN/SN [place] DPOA/Assigned Designee Name Cy Randall (Son) Contact Information [phone] Advance Directives? No Advance Directives on File No History Provided By Patient,Medical Record Prior Living Arrangements House Household Members family,children,other Type of transporation used prior to Relies on Others admit Comment Pt reports very occassionaly drives short distance Independent with ADL's Yes Is patient alert and oriented? Yes Needs Assistance With Bathing,Meal Prep,Home Chores / Shopping Caregiver for Another No Community Services used prior to Home Health Aid admission: Comment Patient previously had [facility] home health come and assist several times a week. DME Already Rented / Owned Cane Comment Patient reports that he has access to walker if needed. Patient/Family Preference Home with Home Health Barriers to Discharge No Comment Pending outcome of hospitalization. Discharge Plan Home Community Services Physical Therapy,Home Health Aid,Home Health Nurse Transportation Arrangement Family can provide transport. Referrals Initiated Home Health Additional Comment Patient previously has used [facility], will contact for additional services following discharge. If patient plan is home with home health No: Pt does not need, as : Has signed face to face form been resuming services completed? SNF/HH Preference [facility] Whiteboard Updated in Patient Room with Yes name and ext. # of Architectural Coating Finisher Review Status In Process Next Review Type Continued Stay Review
--- NOTE | 2020-01-11 12:51 | PC.NURSE ---
Addendum entered by Mick Diggs R.N. 01/11/20 15:55: Order for straight cath obtained, as patient felt pressure to void but was not able to. Straight cath completed without difficulty, and patient felt relief and tolerated well. Patient denies n/v/d this shift. Patient does complain of abdominal pains (describes as sharp and increased with movement), that is relieved with 1mg dilaudid as ordered for PRN. IV fluids as ordered, and sips clears tolerated. Call light within reach. Original Note: Patient does not feel urge to urinate at this time but states I don't want a catheter and agrees to try again shortly. Bladder scan shows 258-337 at this time. IV fluids infusing, and patient tolerating sips of clears. Patient sitting up in chair, states pain is better now at 5/10. Call light within reach, agrees to call for assistance and will not get up alone. Fall precautions in place.
[2020-01-11 15:27] LABS: Appearance Urine UA CLEAR; Bilirubin Urine UA NEGATIVE (NEGATIVE); Color Urine UA BROWN; Glucose Urine UA NEGATIVE (Negative); Ketones Urine UA TRACE (NEGATIVE); Leukocyte Esterase Urine UA NEGATIVE (NEGATIVE); Nitrite Urine UA NEGATIVE (Negative); Occult Blood Urine UA NEGATIVE (Negative); Protein Urine UA 1+ (Negative); Urobilinogen Urine UA 0.2 E.U./dL (0.2)
[2020-01-11 15:40] LABS: Bacteria Urine Moderate (10-30); Culture Indicated Urine Cult Not Indicated; RBC Urine 0-1/HPF (0-5/HPF); WBC Urine 0-1/HPF (0-5/HPF)
[2020-01-11] MEDS: METOPROLOL IR 25 MG TABLET PO (20:52)
[2020-01-11] MEDS: ATORVASTATIN 20 MG TABLET 40 MG PO (20:52)
--- NOTE | 2020-01-11 23:53 | PC.NURSE ---
Evening Shift Note- Patient unable to void all shift. Bladder scan showed 408cc's. Cathed patient with 700cc's drained. Talked with hospitalist and recfieved new order to keep magaña in place due to urinary retention.
[2020-01-12] VITALS (9 sets, daily range): BP systolic 103–144; BP diastolic 51–88; PULSE 70–90; RESP 14–20; TEMP 36.2–37.9; O2SAT 91–97
[2020-01-12] MEDS: PIPERACILLIN-TAZO 4.5 GM/100 ML FROZ.PIGGY IV ×4 (00:20→17:24)
[2020-01-12] MEDS: INSULIN ASPART 100 UNIT/ML INSULN PEN SUBCUT ×4 (00:20→18:07)
[2020-01-12] MEDS: MORPHINE 2 MG/ML INJ IV ×3 (00:41→16:30)
[2020-01-12] MEDS: MELATONIN 3 MG TABLET 6 MG PO (00:41)
--- NOTE | 2020-01-12 00:46 | PC.NURSE ---
Addendum entered by Yeimi Castaneda R.N. 01/12/20 06:02: Patient slept for the majority of the shift. Had some confusion upon waking, forgot he has catheter in bladder. Attemping to use BSC to have BM. 1-2PA with FWW, very unsteady on feet, requiring gait belt. Addendum entered by Yeimi Castaneda R.N. 01/12/20 02:34: Ativan CIWA reassessment in [facility] asks for vital signs, deferring at the time as patient as asleep and no longer agitated and anxious. Will reassess vitals when awake or at q4 time. Original Note: Shift note: AxOx3, but actively hallucinating seeing girl in the hallway standing on chairs and asked this RN if he was on [address] (highway) CIWA: 14, new order, DAM TENDER ASSISTANT notified of results. Patient is tremulous, anxious, hallucinations, headache, nausea. Abdomen is distended and firm, bowel tones hypoactive and tympanic in all 4 quads, patient reports passing flatus but having difficulty passing stool. Lung sounds diminished throughout with exp wheezing, dry cough, saturations 90-95% on RA, SOB on exert/rest. Patient reports recent falls, bed alarm on and functioning, patient uses call light.
[2020-01-12] MEDS: LORazepam 1 MG TABLET PO (00:55)
[2020-01-12] MEDS: LEVOTHYROXINE 50 MCG TABLET PO (05:15)
[2020-01-12] MEDS: metroNIDAZOLE 500 MG/100 ML PIGGYBACK 100 MG IV ×3 (06:42→18:08)
[2020-01-12 06:57] LABS: Add Manual Diff / Slide Review NO; Basophils Absolute Auto 0 /uL (0-100); Basophils Percent Auto 0.3 % (0-2); Eosinophils Absolute Auto 100 /uL (0-450); Eosinophils Percent Auto 0.4 % (2-4); Hematocrit 33.3 % (41-53); Hemoglobin 11.3 g/dL (13.5-17.5); Lymphocytes Absolute Auto 900 /uL (1100-4500); Lymphocytes Percent Auto 5.4 % (25-40); Mean Corpuscular HGB Conc 33.9 % (30-36); Mean Corpuscular Hemoglobin 31.5 PG (26-34); Mean Corpuscular Volume 92.9 fL (80-100); Monocytes Absolute Auto 500 /uL (0-900); Monocytes Percent Auto 3.1 % (3-14); Neutrophils Absolute Auto 14200 /uL (1500-7000); Neutrophils Percent Auto 90.8 % (50-75); Platelet Count 241 X10^3/uL (150-400); Red Blood Cell Count 3.58 X10^6/uL (4.5-5.9); Red Cell Distribution Width 13.9 % (11.6-14.8); White Blood Cell Count 15.7 X10^3/uL (4.5-11.0)
--- NOTE | 2020-01-12 07:59 | PM.PN.1 ---
Subjective Subjective Date Patient Seen: 01/12/20 Time Patient Seen: 07:59 Interval history: Patient admitted with acute diverticulitis of the sigmoid colon with a micro perforation. Still has significant left-sided abdominal pain with coughing and with motion. He has no vomiting. He is passing flatus. Exam Vital Signs (past 8 hours): - 01/12/20 04:45 Temperature 100.2 F H Pulse Rate 88 Respiratory Rate 20 Blood Pressure 126/75 Pulse Oximetry 93 Oxygen Delivery Method Room Air Oxygen Flow Rate 0 Narrative Exam Narrative: Patient is febrile at 100.2 Abdomen mildly distended. Significant left lower quadrant tenderness persists. There is no sign of generalized peritonitis given that the right side of his abdomen is soft and nontender. Objective Labs Result Diagrams: 01/12/20 06:44 01/11/20 05:33 Labs: Laboratory Results - last 24 hr 01/11/20 01/12/20 15:24 06:44 WBC 15.7 H RBC 3.58 L Hgb 11.3 L Hct 33.3 L MCV 92.9 MCH 31.5 MCHC 33.9 RDW 13.9 Plt Count 241 Neut % (Auto) 90.8 H Lymph % (Auto) 5.4 L [place] % (Auto) 3.1 Eos % (Auto) 0.4 L Baso % (Auto) 0.3 Neut # (Auto) 95603 H Lymph # (Auto) 900 L [place] # (Auto) 500 Eos # (Auto) 100 Baso # (Auto) 0 Urine Color Brown Urine Appearance Clear Urine pH 5.0 Ur Specific [place] 1.010 Urine Protein 1+ H Urine Glucose (UA) Negative Urine Ketones Trace H Urine Occult Blood Negative Urine Nitrate Negative Urine Bilirubin Negative Urine Urobilinogen 0.2 Ur Leukocyte Esterase Negative Urine RBC 0-1/hpf Urine WBC 0-1/hpf Urine Bacteria Moderate (10-30) H Ur Culture Indicated? Cult not indicated Assessment & Plan Assessment & Plan narrative: Patient is still febrile as white count is still rising today it is 15,800. He has been on intravenous Zosyn since admission and I added intravenous Flagyl to increase his anaerobic coverage. The patient is an extremely poor risk for surgery having coronary stents placed 1 month ago. We are continuing his Plavix therapy because of that. Patient is a diabetic as well. I have discussed management with the hospitalist. We will continue conservative therapy with the additional antibiotic.
[2020-01-12] MEDS: GABAPENTIN 300 MG CAPSULE 900 MG PO ×2 (08:47→21:54)
[2020-01-12] MEDS: CITALOPRAM 20 MG TABLET 40 MG PO (08:48)
[2020-01-12] MEDS: lisinopriL 5 MG TABLET 2.5 MG PO (08:48)
[2020-01-12] MEDS: METOPROLOL IR 25 MG TABLET PO ×2 (08:48→21:54)
[2020-01-12] MEDS: buPROPion SR 150 MG TAB PO (08:49)
[2020-01-12] MEDS: CLOPIDOGREL 75 MG TABLET PO (08:49)
[2020-01-12] MEDS: HEPARIN 5,000 UNIT/ML VIAL 5000 UNIT SUBCUT ×2 (08:49→21:54)
[2020-01-12] MEDS: PANTOPRAZOLE 40 MG VIAL IV (08:50)
[2020-01-12] MEDS: NICOTINE 21 MG PATCH TOP (08:50)
[2020-01-12] MEDS: ISOSORBIDE MONONITRATE ER 30 MG TABLET 60 MG PO (08:55)
[2020-01-12] MEDS: BECLOMETHASONE 40 MCG INH 10.6 GM 1 PUFF INH ×2 (09:58→20:04)
[2020-01-12] MEDS: LACTATED RINGERS 1,000 ML 125 ML IV (11:23)
[2020-01-12] MEDS: ACETAMINOPHEN 325 MG TABLET 650 MG PO (11:24)
--- NOTE | 2020-01-12 11:47 | CM.DPC ---
Addendum entered by Amirah Teixeira R.N. 01/13/20 15:08: DASHAWN/NEVIN Spoke with ID generator worker about a SNF authorization for patient. DASHAWN/NVEIN was updated that [facility] for [facility] v[facility] and that it can take at least a week to two weeks to get authorization from ID to go to a [facility] facility and ID facilities have a 6 month wait. DASHAWN/RN notified the patient and Dr Conrad of the situation. patient stated he wants to go home with the support of his family and [facility] and doesn't want to go to a SNF. Amirah Teixeira RN Original Note: DCP continued: EMR Reviewed: DASHAWN/Nevin spoke with [facility] and updated them about patient and patients admission DX. [facility] is planning on restarting Care once patient is D/C back home with his family. [facility] asked that CM call them and send D/C summary when patient D/C home so that they can resume services. Amirah Teixeira RN
--- NOTE | 2020-01-12 13:40 | PM.PN.1 ---
Subjective Subjective Date Patient Seen: 01/12/20 Time Patient Seen: 08:45 Interval history: Mr. Rashad Randall is a 64-year-old male with a history significant for coronary artery disease with NH status post coronary stents, COPD, hypertension, hyperlipidemia, poorly controlled diabetes type 2, on insulin, with diabetic neuropathy, chronic kidney disease stage 2, hypothyroidism, GERD and recurrent TIAs who presented to the emergency room for abdominal pain. He was diagnosed with diverticulitis with a microperforation, he is seen today for follow-up. The patient does state that he is hungry, and that he does feel somewhat improved as far as his abdominal pain since admission. He denies any nausea or vomiting. He has not had a bowel movement since being here. He is tolerating a mild amount of clear liquids at this point. His white blood cell count did slightly increase today, and surgery added Flagyl. Exam Vital Signs (past 8 hours): - 01/12/20 09:00 01/12/20 09:58 01/12/20 11:00 Temperature 98.6 F 98.7 F Pulse Rate 90 73 73 Respiratory Rate 18 14 16 Blood Pressure 119/88 144/51 H Pulse Oximetry 93 93 97 Oxygen Delivery Method Room Air Oxygen Flow Rate 0 Narrative Exam Narrative: GENERAL APPEARANCE: Well developed, well nourished, in no acute distress. SKIN: Inspection of the skin reveals no rashes, ulcerations or petechiae. HEENT: Normocephalic atraumatic, extraocular muscles are intact, oropharynx is clear and mucous membranes are moist, neck is supple without adenopathy NECK: Supple and symmetric. There was no thyroid enlargement, and no tenderness, or masses were felt. CHEST: Normal AP diameter and normal contour without any kyphoscoliosis. LUNGS: Auscultation of the lungs revealed no wheezes, rhonchi, or rales. CARDIOVASCULAR: There was a regular rate and rhythm without any murmurs, gallops, rubs. Peripheral pulses were 2+ and symmetric. ABDOMEN: Distended, minimally tender bilateral lower quadrant. MUSCULOSKELETAL: There was no tenderness or effusions noted. Muscle strength and tone were normal. EXTREMITIES: No cyanosis, clubbing or edema. NEUROLOGIC: Alert and oriented x 3. Normal affect. Gait was normal. Strength is +5/5 in the Upper Extremities and Lower Extremities Bilaterally. Sensation to touch was normal. Objective Labs Result Diagrams: 01/12/20 06:44 01/11/20 05:33 Labs: Laboratory Results - last 24 hr 01/11/20 01/12/20 15:24 06:44 WBC 15.7 H RBC 3.58 L Hgb 11.3 L Hct 33.3 L MCV 92.9 MCH 31.5 MCHC 33.9 RDW 13.9 Plt Count 241 Neut % (Auto) 90.8 H Lymph % (Auto) 5.4 L [place] % (Auto) 3.1 Eos % (Auto) 0.4 L Baso % (Auto) 0.3 Neut # (Auto) 81151 H Lymph # (Auto) 900 L [place] # (Auto) 500 Eos # (Auto) 100 Baso # (Auto) 0 Urine Color Brown Urine Appearance Clear Urine pH 5.0 Ur Specific [place] 1.010 Urine Protein 1+ H Urine Glucose (UA) Negative Urine Ketones Trace H Urine Occult Blood Negative Urine Nitrate Negative Urine Bilirubin Negative Urine Urobilinogen 0.2 Ur Leukocyte Esterase Negative Urine RBC 0-1/hpf Urine WBC 0-1/hpf Urine Bacteria Moderate (10-30) H Ur Culture Indicated? Cult not indicated Assessment & Plan Assessment & Plan narrative: Mr. Rashad Randall is a 64-year-old male with a history significant for coronary artery disease with NH status post coronary stents, COPD, hypertension, hyperlipidemia, poorly controlled diabetes type 2, on insulin, with diabetic neuropathy, chronic kidney disease stage 2, hypothyroidism, GERD and recurrent TIAs who presented to the emergency room for abdominal pain, he is admitted for sigmoid diverticulitis with micro perforation. Surgery is following and added Flagyl today due to a rising white blood cell count. Trying to avoid surgical intervention given patient is high medical risk given his recent stenting. 1. Abdominal pain, sigmoid diverticulitis with microperforation, present on admission, active. -Patient with onset of acute lower abdominal pain afternoon with recurrent episodes of nausea vomiting and diarrhea. -Patient denies hematemesis, hematochezia or melena or abdominal bloating. -CT exam finds acute sigmoid diverticulitis with several adjacent tiny gas bubbles compatible with microperforation, adjacent mesenteric inflammation with free fluid. -white count is 11.4 with left shift, ordered procalcitonin. -continue Zosyn and Flagyl per surgical recommendations -appreciate Dr. Ryder's consult, evaluation and recommendations. -patient is tolerating clears, will continue 2. COPD, present on admission, active -patient chronic cough secondary to COPD, he denies shortness of breath arrest but reports exertional dyspnea. -respiratory therapy to consult, eval and treat -DuoNebs every 6 hours as needed. -albuterol nebulizer every 2 hours as needed -supplemental O2 as needed. 3. Alcohol abuse, chronic, present on admission. Stable. -with patient states that he is trying to stop drinking and reports drinking 2-3 drinks per month. -no evidence of tremors or withdrawal symptoms, patient denies experiencing DTs or withdrawal seizures. 4. Coronary artery disease status post stenting, chronic, present on admission, stable. -the patient with a history of NH in 2006 with stent placement with additional stenting in 2010. -the patient was discharged from [facility] on 12/16/2019 after having stent placement in unknown artery. -the patient presently has no evidence of edema or pulmonary congestion. Will hold Lasix for now -Continue atorvastatin 40 mg daily at bedtime, Imdur 60 mg daily, lisinopril 2.5 mg daily, and metoprolol tartrate 25 mg twice daily. -the patient is status post stenting last month will continue clopidogrel 75 mg daily. -request recent medical records from [facility]. 5. Hypertension, chronic, present on admission. Stable. -Continue home regimen of isosorbide 60 mg daily, lisinopril 2.5 mg daily, and metoprolol tartrate 25 mg twice daily. 6. Hyperlipidemia, chronic, present on admission. Stable. -Continue home regimen atorvastatin 40 mg daily at bedtime. 7. Diabetes mellitus type 2, insulin using, present on admission. Stable. -hemoglobin A1c was 8.3 on 12/21/2019 improved from 10.5 in September 2019. Blood sugar upon arrival the floor is 163. -patient with bilateral lower extremity neuropathy in preserved renal function. -patient takes Lantus 80 units twice daily and is not tolerating much p.o. intake at this time. His glucose remains controlled at this time without long-acting insulin. Will likely need to restart as his p.o. intake improves. -blood glucose checks every 6 hours while NPO, ordered medium-dose correctional scale insulin. -Continue gabapentin 300 mg twice daily. 8. Chronic kidney disease stage 2, present on admission. Stable. -patient with previous history of chronic kidney disease stage 2 not in evidence on admission today. -admission labs showed BUN of 13 and creatinine of 0.87. EGFR is calculated greater than 60, calculated creatinine clearance is 107.16. -Continue to monitor creatinine periodically. 9. Hypothyroidism, chronic, present on admission. Stable. -Continue levothyroxine 50 mcg daily. 10. . Depression, chronic, present on admission. Stable. -Continue citalopram 40 mg daily and bupropion 150 mg daily. -continue bupropion 150 mg daily. 11. Tobacco dependence, chronic, present on admission. Stable. -1/2 pack per day smoking history for 45 years. -Ordered nicotine patch 21 mg daily as needed for nicotine withdrawal. 12. Obstructive sleep apnea not on CPAP, chronic, present on admission. Stable. -Encouraged compliance with CPAP and discussed effects of untreated KATI. -Ordered CPAP per RT protocol. 13. Recurrent transitory ischemic attacks, currently asymptomatic, stable. -patient reports having recurrent symptoms most recent event was during hospitalization [place] during hypertensive episode with expressive aphasia.
--- NOTE | 2020-01-12 14:10 | PT.IIE ---
Current Diagnoses Diverticulitis of large intestine with perforation and abscess without bleeding (01/11/20) Surgical History (Last Reviewed 12/11/19 @ 07:04 by Brandon Pinto MD) Anesthesia (Resolved) History of heart artery stent (Resolved 2006) History of heart artery stent (Resolved 2010) Hx of shoulder surgery (Resolved 2005) Medical History (Last Updated 01/11/20 @ 02:59 by LESVIA Escobedo) Chicken pox (Resolved 1956) Chickenpox (Resolved 1956) Chronic cough (Chronic) COPD (chronic obstructive pulmonary disease) (Chronic) Coronary artery disease (Chronic 2006) Depression (Chronic 2008) Diabetes (Chronic 1994) Eczema (Chronic) Foot pain (Chronic) GERD (gastroesophageal reflux disease) (Chronic 2012) Gout (Resolved) History of recurrent TIAs (Acute) Hyperlipidemia (Chronic) Hypertension (Chronic) Hypothyroidism (Chronic) Kidney disease (Chronic 2009) Measles (Resolved 1955) Measles (Resolved 1955) Mumps (Resolved 1958) Mumps (Resolved 1958) Neuropathy (Chronic) Obstructive sleep apnea (Chronic) Shoulder pain (Chronic) Status post myocardial infarction (Resolved) Strain of muscle of right groin region (Resolved 03/30/18) Well adult exam (Acute) Physical Therapy Inpatient Evaluation/Re-Eval M1 PT/OT-IP Prior Functional Status Start: 01/12/20 15:20 Freq: NEEDED Status: Active Protocol: Document 01/12/20 14:10 AB (Rec: 01/12/20 15:33 AB [id number]) Medical Review Prior Functional Status Medical History Reviewed Yes Communication able to make needs known Mobility and Gait pt stated that he is modified independent with all mobilities and ambulation using SPC Activities of Daily Living and IADL's stated that sonali DIAZ comes in to assist him with showers and also has HHPT Social History Household Members family,children,other Living Arrangements House Number of Floors (Floors) One Floor Number of Stairs To Enter/Railing? 4 steps to enter with wide bilateral rails and can only use one rail at a time Home Environment Standard Height Toilet,Tub/ Shower Home Equipment Straight Cane,Shower Seat without Backrest,Hand Held Shower,Grab Bars In Shower Additional Social History Comment pt stated that he sleeps on his recliner M2 PT-IP Current Condition Start: 03/12/20 15:20 Freq: NEEDED Status: Active Protocol: Document 01/12/20 14:10 AB (Rec: 01/12/20 15:33 AB [id number]) Physical Therapy Current Condition Current Condition Evaluation Date 01/12/20 Treatment Diagnosis diverticulitis with microperforation; difficulty in walking Onset Date 01/11/2020 Precautions Other Precautions falls M3 PT-IP Subjective Start: 01/12/20 15:20 Freq: NEEDED Status: Active Protocol: Document 01/12/20 14:10 AB (Rec: 01/12/20 15:33 AB [id number]) Subjective Physical Therapy Visit Type Type Initial Evaluation Visit Start Time 14:10 Visit Stop Time 14:40 Total Visit Minutes 30 Number of COMMUNITY SERVICES MANAGER Visits 0 Physical Therapy Visit Comments Patient Comments pt agreeable to do PT Therapy Pain Assessment Location Abdomen Intensity 5 Scale Used Numeric (1 - 10) M4 PT-IP Mobility and Gait Start: 01/12/20 15:20 Freq: NEEDED Status: Active Protocol: Document 01/12/20 14:10 AB (Rec: 01/12/20 15:33 AB [id number]) PT-Bed Mobility Assessment Supine to Sit Supine to Sit Maximum Assistance,1 Person Assistance Scooting Scooting to Edge of Bed Maximum Assistance PT-Transfer Assessment Sit to and From Stand Sit to and from Stand Maximum Assistance,1 Person Assistance,2 Person Assistance ,Use of Upper Extremities Equipment Transfer Assistive Device Gait Belt,Front Wheeled Walker Orthotic/Prosthetic Devices or Brace: No Transfers Transfer Destination Chair Transfer Technique using FWW Transfer Ability Level of Assist Maximum Assistance,2 Person Assistance,Use of Upper Extremities Comments Mobility Comments pt completed supine to sit max A and max cues. pt requires max A to maintain sitting balance on EOB. pt with increase posterior trunk LOB requiring max A for trunk control pt is impulsive and requires cues for safety. completed sit to stand max A x 1-2 and max cues. pt able to ambulate using FWW max A x 1- 2 ~ 8 ft. agreed to sit up on chair. positioned on chair. call light and table placed within reach. Gait Assessment Gait Gait Assistance Required: Maximum Assistance,1 Person Assist,2 Person Assist Distance (Feet) 8 Able to Maintain Weight Bearing Status Yes During Gait Assistive Devices Assistive Device Gait Belt,Front Wheeled Walker Orthotic/Prosthetic Devices or Brace: No Gait Deviations General Gait Pattern Ataxic,Decreased Stride Length ,Decreased Feet Clearance,Step -to Gait Factors Limiting Gait Function Factors Limiting Gait Function Decreased Activity Tolerance, Decreased Strength,Difficulty Following Directions,Pain,Poor Balance,Poor Safety Awareness Comments Gait Comments pt requires max A x 1-2 with ambulation using FWW. presents with unsteady ataxic, shuffling gait PT-Balance Assessment Sitting Balance and Reactions Static Sitting Balance Ability Poor Dynamic Sitting Balance Ability Poor Standing Balance and Reactions Static Standing Balance Ability Poor Dynamic Standing Balance Ability Poor Device Used FWW M5 PT-IP Objective Assessments Start: 01/12/20 15:20 Freq: NEEDED Status: Active Protocol: Document 01/12/20 14:10 AB (Rec: 01/12/20 15:33 AB [id number]) Orientation Orientation/Cognition Level of Alertness Confusional State Orientation Name Safety Awareness Decreased Safety Awareness Gross Range of Motion Lower Extremity ROM Assessment Within Functional Limits Strength Lower Extremity Strength Assessment Bilaterally Impaired Hip 3+/5 Knee 3+/5 Coordination Assessment Gross Coordination Gross Coordination Impaired M6 PT-IP Treatment Start: 01/12/20 15:20 Freq: NEEDED Status: Active Protocol: Document 01/12/20 14:10 AB (Rec: 01/12/20 15:33 AB [id number]) Physical Therapy Treatment Education Education Provided Safety M7 PT-IP Assessment and Plan Start: 01/12/20 15:20 Freq: NEEDED Status: Active Protocol: Document 01/12/20 14:10 AB (Rec: 01/12/20 15:33 AB [id number]) PT Summary Assessment and Plan Potential Rehabilitation Potential Fair Status of Condition at Evaluation Evolving Summary Impairments Pain,ROM,Strength,Balance, Coordination,Sensation,Tone, Cognition,Bed Mobility, Transfers,Gait,Activity Tolerance Assessment Summary pt requiring 2 person assist at this time and presents decrease sitting balance requiring max A to stabilize and max A x 1-2 for ambulation using FWW. pt is a high fall risk and at this time will require SNF rehab. will continue to assess progress. Goals Bed Mobility Goal Minimal Assistance Transfer Goal Minimal Assistance,Front Wheeled Walker Gait Goal Minimal Assistance,Front Wheel Walker Gait Distance 50 Other Goals up/down 4 steps 1 rail min A Days to Meet Goals 40 Frequency of Treatment Frequency Of Treatment Once a Day Treatment Plan Physical Therapy Treatment Plan Bed Mobility Training,Transfer Training,Gait Training, Therapeutic Exercise,Balance Retraining,Discharge Planning, Hot or Cold Pack,Neuromuscular Re-ed,Coordination Retraining Other Recommendations and Next Treatment sitting/standing balance, Focus transfers, ambulation Recommendations To Nursing Amount of Assist Needed 2 Person Assist Discharge Recommendations PT Discharge Recommendations SNF Rehab Equipment Needed for Home Before FWW Discharge Transportation Needs at Discharge Wheelchair/Cabulance
[2020-01-12] MEDS: ATORVASTATIN 20 MG TABLET 40 MG PO (21:54)
[2020-01-13] VITALS (7 sets, daily range): BP systolic 112–140; BP diastolic 65–76; PULSE 72–88; RESP 16–18; TEMP 37–37.5; O2SAT 91–96
[2020-01-13] MEDS: INSULIN ASPART 100 UNIT/ML INSULN PEN SUBCUT ×5 (00:05→20:52)
[2020-01-13] MEDS: PIPERACILLIN-TAZO 4.5 GM/100 ML FROZ.PIGGY IV ×4 (00:06→17:46)
[2020-01-13] MEDS: MELATONIN 3 MG TABLET 6 MG PO ×2 (00:10→20:41)
[2020-01-13] MEDS: MORPHINE 2 MG/ML INJ IV ×2 (00:10→17:47)
[2020-01-13] MEDS: LACTATED RINGERS 1,000 ML 125 ML IV ×2 (00:11→12:47)
[2020-01-13] MEDS: ONDANSETRON 4 MG/2 ML INJ IV (00:16)
[2020-01-13] MEDS: metroNIDAZOLE 500 MG/100 ML PIGGYBACK 100 MG IV ×4 (00:30→19:26)
--- NOTE | 2020-01-13 02:02 | PC.NURSE ---
Addendum entered by Yeimi Castaneda R.N. 01/13/20 06:39: Per DESK LIEUTENANT reports, patient makes odd statements and requests and at times appears confused when having discussions with him. This RN has also experienced this as well. Original Note: Patient AxOx3, but does not remember this RN from one encounter to the next. Hx of COPD, saturation on RA WNL, c/o SOB on exert and rest. Exp wheezing in upper left lobe Abdominal tenderness on palpation, passing flatus, reports of small BM. Nausea with no vomiting. Requesting 4mg of Morphine stating that 2mg doesn't work, educated patient that 2mg is in line with his pain response, pt stated that he didn't want it then since it doesn't do anything. Told him that was his choice, then stated he wanted it to sleep, educated patient that morphine is not to help him sleep. Patient then requested it for his pain and that it is better than nothing I guess. Medicated per DEC and gave HS melatonin. Per evening shift RN, changed patient's insulin regimen to ACHS as patient is consuming clear trays.
[2020-01-13] MEDS: LEVOTHYROXINE 50 MCG TABLET PO (06:32)
[2020-01-13 08:40] LABS: Add Manual Diff / Slide Review NO; Basophils Absolute Auto 0 /uL (0-100); Basophils Percent Auto 0.1 % (0-2); Eosinophils Absolute Auto 100 /uL (0-450); Eosinophils Percent Auto 0.4 % (2-4); Hematocrit 35.1 % (41-53); Hemoglobin 11.9 g/dL (13.5-17.5); Lymphocytes Absolute Auto 800 /uL (1100-4500); Lymphocytes Percent Auto 5.2 % (25-40); Mean Corpuscular HGB Conc 33.8 % (30-36); Mean Corpuscular Hemoglobin 31.3 PG (26-34); Mean Corpuscular Volume 92.4 fL (80-100); Monocytes Absolute Auto 800 /uL (0-900); Monocytes Percent Auto 5.5 % (3-14); Neutrophils Absolute Auto 13500 /uL (1500-7000); Neutrophils Percent Auto 88.8 % (50-75); Platelet Count 239 X10^3/uL (150-400); Red Cell Distribution Width 13.7 % (11.6-14.8); White Blood Cell Count 15.3 X10^3/uL (4.5-11.0)
[2020-01-13] MEDS: ALBUTEROL/IPRATROPIUM 3 ML AMPUL INH ×2 (08:44→20:10)
[2020-01-13] MEDS: BECLOMETHASONE 40 MCG INH 10.6 GM 1 PUFF INH ×2 (08:44→20:10)
[2020-01-13 08:53] LABS: Alanine Aminotransferase 12 IU/L (<50); Albumin 3.4 g/dL (3.5-5.0); Albumin Globulin Ratio 1.1 (1.0-2.8); Alkaline Phosphatase 73 U/L (38-126); Aspartate Aminotransferase 19 IU/L (17-59); BUN Creatinine Ratio 13.1 (6-22); Bilirubin Total 1.2 mg/dL (0.2-1.3); Bilirubin Unconjugated 0.6 mg/dL (0.0-1.1); Blood Urea Nitrogen 11 mg/dL (9-20); Calcium 8.6 mg/dL (8.4-10.2); Carbon Dioxide 28 mmol/L (22-32); Chloride 101 mmol/L (98-107); Estimated Glomerular Filt Rate > 60.0 mL/min (>60); Globulin 3.2 g/dL (1.7-4.1); Glucose 172 mg/dL (80-110); HEMOLYSIS < 15 (0-50); Magnesium 1.7 mg/dL (1.6-2.3); Sodium 135 mmol/L (137-145); Total Protein 6.6 g/dL (6.3-8.2)
[2020-01-13] MEDS: buPROPion SR 150 MG TAB PO (09:05)
[2020-01-13] MEDS: CLOPIDOGREL 75 MG TABLET PO (09:10)
[2020-01-13] MEDS: CITALOPRAM 20 MG TABLET 40 MG PO (09:10)
[2020-01-13] MEDS: GABAPENTIN 300 MG CAPSULE 900 MG PO ×2 (09:10→20:41)
[2020-01-13] MEDS: HEPARIN 5,000 UNIT/ML VIAL 5000 UNIT SUBCUT ×2 (09:10→20:43)
[2020-01-13] MEDS: METOPROLOL IR 25 MG TABLET PO ×2 (09:12→20:42)
[2020-01-13] MEDS: lisinopriL 5 MG TABLET 2.5 MG PO (09:12)
[2020-01-13] MEDS: NICOTINE 21 MG PATCH TOP (09:12)
[2020-01-13] MEDS: MORPHINE 4 MG/ML INJ IV ×3 (09:12→22:09)
[2020-01-13] MEDS: PANTOPRAZOLE 40 MG VIAL IV (09:12)
[2020-01-13] MEDS: ISOSORBIDE MONONITRATE ER 30 MG TABLET 60 MG PO (09:12)
--- NOTE | 2020-01-13 09:20 | PT.IPTN ---
Current Diagnoses Diverticulitis of large intestine with perforation and abscess without bleeding (01/11/20) Physical Therapy Treatment Note M2 PT-IP Current Condition Start: 01/12/20 15:20 Freq: NEEDED Status: Active Protocol: Document 01/12/20 14:10 AB (Rec: 01/12/20 15:33 AB [id number]) Physical Therapy Current Condition Current Condition Evaluation Date 01/12/20 Treatment Diagnosis diverticulitis with microperforation; difficulty in walking Onset Date 01/11/2020 Precautions Other Precautions falls M3 PT-IP Subjective Start: 01/12/20 15:20 Freq: NEEDED Status: Active Protocol: Document 01/13/20 09:20 AB (Rec: 01/13/20 09:50 AB [id number]) Subjective Physical Therapy Visit Type Type Treatment Note Visit Start Time 09:20 Visit Stop Time 09:36 Total Visit Minutes 16 Number of MONITOR AND STORAGE BIN TENDER Visits 0 Physical Therapy Visit Comments Patient Comments pt agreeable to do PT; c/o 8/ 10 overall pain Therapy Pain Assessment Pain When Pain Assessed At Rest Pain Present Pain Present Pain Reported Location Abdomen Intensity 8 Scale Used Numeric (1 - 10) Pain Management Techniques Distraction,Re-positioning, Timing of Activity with Medications M4 PT-IP Mobility and Gait Start: 01/12/20 15:20 Freq: NEEDED Status: Active Protocol: Document 01/13/20 09:20 AB (Rec: 01/13/20 09:50 AB [id number]) PT-Bed Mobility Assessment Supine to Sit Supine to Sit Maximum Assistance,1 Person Assistance,Head of Bed Elevated PT-Transfer Assessment Sit to and From Stand Sit to and from Stand Maximum Assistance,1 Person Assistance,2 Person Assistance ,Use of Upper Extremities Equipment Transfer Assistive Device Gait Belt,Front Wheeled Walker Orthotic/Prosthetic Devices or Brace: No Transfers Transfer Destination Chair Transfer Technique ambulated using FWW Transfer Ability Level of Assist Maximum Assistance,1 Person Assistance,2 Person Assistance ,Use of Upper Extremities Comments Mobility Comments pt completed supine to sit with HOB elevated max A and cues. able to sit on EOB CGA to min A with posterior LOB x 1. pt seems to be able to control trunk better today compared to yesterdays with decrease incidences of LOB and lesser assistance needed. completed sit to stand max A x 1-2 and max cues. pt was able to ambulate ~ 8 ft in room using FWW mod to max A and cues. pt stated that he is tired and ambulated to the chair using FWW mod to max A and cues. positioned pt on chair. call light and table within reach. chair alarm on. left pt with nurse in room. Gait Assessment Gait Gait Assistance Required: Moderate Assistance,Maximum Assistance,1 Person Assist Distance (Feet) 8 Able to Maintain Weight Bearing Status Yes During Gait Assistive Devices Assistive Device Gait Belt,Front Wheeled Walker Orthotic/Prosthetic Devices or Brace: No Gait Deviations General Gait Pattern Antalgic,Decreased Stride Length,Decreased Feet Clearance,Step-to Gait Factors Limiting Gait Function Factors Limiting Gait Function Decreased Activity Tolerance, Decreased Sensation,Decreased Strength,Incoordination, Limited Range of Motion,Pain, Poor Balance,Poor Safety Awareness M5 PT-IP Objective Assessments Start: 01/12/20 15:20 Freq: NEEDED Status: Active Protocol: Document 01/12/20 14:10 AB (Rec: 01/12/20 15:33 AB [id number]) Orientation Orientation/Cognition Level of Alertness Confusional State Orientation Name Safety Awareness Decreased Safety Awareness Gross Range of Motion Lower Extremity ROM Assessment Within Functional Limits Strength Lower Extremity Strength Assessment Bilaterally Impaired Hip 3+/5 Knee 3+/5 Coordination Assessment Gross Coordination Gross Coordination Impaired M6 PT-IP Treatment Start: 01/12/20 15:20 Freq: NEEDED Status: Active Protocol: Document 01/13/20 09:20 AB (Rec: 01/13/20 09:50 AB [id number]) Physical Therapy Treatment Education Education Provided Safety M7 PT-IP Assessment and Plan Start: 01/12/20 15:20 Freq: NEEDED Status: Active Protocol: Document 01/13/20 09:20 AB (Rec: 01/13/20 09:50 AB [id number]) PT Summary Assessment and Plan Potential Rehabilitation Potential Fair Summary Impairments Pain,ROM,Strength,Balance, Coordination,Sensation,Tone, Cognition,Bed Mobility, Transfers,Gait,Activity Tolerance Progress Towards Goals Slow Progress due to Medical Issues,Slow Progress due to Activity Tolerance Assessment Summary pt continues to require max A x 1-2 with mobility but improving slowly with sitting balance. pt will require assistance at all times when mobilizing at home. Informed pillowcase sewer regarding OT eval order request due to pt's increase level assistance. pt will require SNF rehab to improve strength and mobility prior to d/c home. Goals Bed Mobility Goal Minimal Assistance Transfer Goal Minimal Assistance,Front Wheeled Walker Gait Goal Minimal Assistance,Front Wheel Walker Gait Distance 50 Other Goals up/down 4 steps 1 rail min A Days to Meet Goals 40 Frequency of Treatment Frequency Of Treatment Once a Day Treatment Plan Physical Therapy Treatment Plan Bed Mobility Training,Transfer Training,Gait Training, Therapeutic Exercise,Balance Retraining,Discharge Planning, Hot or Cold Pack,Neuromuscular Re-ed,Coordination Retraining Other Recommendations and Next Treatment sitting/standing balance, Focus transfers, ambulation Recommendations To Nursing Amount of Assist Needed 2 Person Assist Discharge Recommendations PT Discharge Recommendations SNF Rehab Equipment Needed for Home Before FWW Discharge Transportation Needs at Discharge Wheelchair/Cabulance
--- NOTE | 2020-01-13 10:53 | PM.PN.1 ---
Subjective Subjective Date Patient Seen: 01/13/20 Time Patient Seen: 10:53 Interval history: Patient has been hospital several days now has acute sigmoid diverticulitis with micro perforation. He states that he is slowly experiencing less discomfort. He is able to walk in the room today sitting in a chair. He is tolerating clear liquids with no nausea or vomiting. He is passing flatus. Exam Vital Signs (past 8 hours): - 01/13/20 05:41 01/13/20 08:00 01/13/20 08:44 Temperature 99.5 F 99.2 F Pulse Rate 88 84 82 Respiratory Rate 16 18 16 Blood Pressure 128/73 140/69 Pulse Oximetry 91 91 93 Oxygen Delivery Method Room Air Oxygen Flow Rate 0 Narrative Exam Narrative: Patient is afebrile today well 99.2. Abdomen is still distended. He has no generalized peritonitis. He does have tenderness in the left lower quadrant. This tenderness appears to be less than yesterday. Objective Labs Result Diagrams: 01/13/20 08:15 01/13/20 08:15 Labs: Laboratory Results - last 24 hr 01/13/20 01/13/20 08:15 08:15 WBC 15.3 H RBC 3.80 L Hgb 11.9 L Hct 35.1 L MCV 92.4 MCH 31.3 MCHC 33.8 RDW 13.7 Plt Count 239 Neut % (Auto) 88.8 H Lymph % (Auto) 5.2 L [place] % (Auto) 5.5 Eos % (Auto) 0.4 L Baso % (Auto) 0.1 Neut # (Auto) 62602 H Lymph # (Auto) 800 L [place] # (Auto) 800 Eos # (Auto) 100 Baso # (Auto) 0 Sodium 135 L Potassium 4.0 Chloride 101 Carbon Dioxide 28 BUN 11 Creatinine 0.84 Estimated GFR > 60.0 BUN/Creatinine Ratio 13.1 Glucose 172 H Calcium 8.6 Magnesium 1.7 Total Bilirubin 1.2 Conjugated Bilirubin 0.0 Unconjugated Bilirubin 0.6 AST 19 ALT 12 Alkaline Phosphatase 73 Total Protein 6.6 Albumin 3.4 L Globulin 3.2 Albumin/Globulin Ratio 1.1 Assessment & Plan Assessment & Plan narrative: Very high risk surgical patient. He has been treated with double antibiotic therapy for acute diverticulitis with micro perforation. He seems to be improving and certainly not getting worse. He does not show signs of generalized peritonitis. His white count has stabilized 15,000 and he is afebrile. We will continue conservative therapy.
--- NOTE | 2020-01-13 11:48 | P.PN_ITS ---
Subjective Subjective Date Patient Seen: 01/13/20 Time Patient Seen: 08:30 Interval history: Mr. Rashad Randall is a 64-year-old male with a history significant for coronary artery disease with UT status post coronary stents, COPD, hypertension, hyperlipidemia, poorly controlled diabetes type 2, on insulin, with diabetic neuropathy, chronic kidney disease stage 2, hypothyroidism, GERD and recurrent TIAs who presented to the emergency room for abdominal pain. He was diagnosed with diverticulitis with a microperforation, he is seen today for follow-up. The patient does state that he is hungry, and that he does feel somewhat improved as far as his abdominal pain since admission. This morning he did have some more pain and aspirin increased dose of morphine. He was also somewhat nauseous but had no emesis. He has been passing gas but had no bowel movements. His white blood cell count was stable today. Exam Vital Signs (past 8 hours): - 01/13/20 05:41 01/13/20 08:00 01/13/20 08:44 Temperature 99.5 F 99.2 F Pulse Rate 88 84 82 Respiratory Rate 16 18 16 Blood Pressure 128/73 140/69 Pulse Oximetry 91 91 93 Oxygen Delivery Method Room Air Oxygen Flow Rate 0 Narrative Exam Narrative: GENERAL APPEARANCE: Well developed, well nourished, in no acute distress. SKIN: Inspection of the skin reveals no rashes, ulcerations or petechiae. HEENT: Normocephalic atraumatic, extraocular muscles are intact, oropharynx is clear and mucous membranes are moist, neck is supple without adenopathy NECK: Supple and symmetric. There was no thyroid enlargement, and no tenderness, or masses were felt. CHEST: Normal AP diameter and normal contour without any kyphoscoliosis. LUNGS: Auscultation of the lungs revealed no wheezes, rhonchi, or rales. CARDIOVASCULAR: There was a regular rate and rhythm without any murmurs, gallops, rubs. Peripheral pulses were 2+ and symmetric. ABDOMEN: Distended, tender LLQ MUSCULOSKELETAL: There was no tenderness or effusions noted. Muscle strength and tone were normal. EXTREMITIES: No cyanosis, clubbing or edema. NEUROLOGIC: Alert and oriented x 3. Normal affect. Gait was normal. Strength is +5/5 in the Upper Extremities and Lower Extremities Bilaterally. Sensation to touch was normal. Objective Labs Result Diagrams: 01/13/20 08:15 01/13/20 08:15 Labs: Laboratory Results - last 24 hr 01/13/20 01/13/20 08:15 08:15 WBC 15.3 H RBC 3.80 L Hgb 11.9 L Hct 35.1 L MCV 92.4 MCH 31.3 MCHC 33.8 RDW 13.7 Plt Count 239 Neut % (Auto) 88.8 H Lymph % (Auto) 5.2 L [place] % (Auto) 5.5 Eos % (Auto) 0.4 L Baso % (Auto) 0.1 Neut # (Auto) 90007 H Lymph # (Auto) 800 L [place] # (Auto) 800 Eos # (Auto) 100 Baso # (Auto) 0 Sodium 135 L Potassium 4.0 Chloride 101 Carbon Dioxide 28 BUN 11 Creatinine 0.84 Estimated GFR > 60.0 BUN/Creatinine Ratio 13.1 Glucose 172 H Calcium 8.6 Magnesium 1.7 Total Bilirubin 1.2 Conjugated Bilirubin 0.0 Unconjugated Bilirubin 0.6 AST 19 ALT 12 Alkaline Phosphatase 73 Total Protein 6.6 Albumin 3.4 L Globulin 3.2 Albumin/Globulin Ratio 1.1 Assessment & Plan Assessment & Plan narrative: Mr. Rashad Randall is a 64-year-old male with a history significant for coronary artery disease with UT status post coronary stents, COPD, hypertension, hyperlipidemia, poorly controlled diabetes type 2, on insulin, with diabetic neuropathy, chronic kidney disease stage 2, hypothyroidism, GERD and recurrent TIAs who presented to the emergency room for abdominal pain, he is admitted for sigmoid diverticulitis with micro perforation. Surgery is following and added Flagyl today due to a rising white blood cell count. Trying to avoid surgical intervention given patient is high medical risk given his recent stenting. 1. Abdominal pain, sigmoid diverticulitis with microperforation, present on admission, active. -Patient with onset of acute lower abdominal pain with recurrent episodes of nausea vomiting and diarrhea. His symptoms are improving somewhat with medical management. -CT exam showed acute sigmoid diverticulitis with several adjacent tiny gas bubbles compatible with microperforation, adjacent mesenteric inflammation with free fluid. -white count is 11.4 on admission, slightly increased now but stable today at 15. -continue Zosyn and Flagyl per surgical recommendations -appreciate Dr. Ryder's consult, evaluation and recommendations. -patient is tolerating clears, will continue. 2. COPD, present on admission, active -patient chronic cough secondary to COPD, he denies shortness of breath arrest but reports exertional dyspnea. -respiratory therapy to consult, eval and treat -DuoNebs every 6 hours as needed. -albuterol nebulizer every 2 hours as needed -supplemental O2 as needed. 3. Alcohol abuse, chronic, present on admission. Stable. -with patient states that he is trying to stop drinking and reports drinking 2-3 drinks per month. -no evidence of tremors or withdrawal symptoms, patient denies experiencing DTs or withdrawal seizures. 4. Coronary artery disease status post stenting, chronic, present on admission, stable. -the patient with a history of UT in 2006 with stent placement with additional stenting in 2010. -the patient was discharged from [facility] on 12/16/2019 after having stent placement in unknown artery. -the patient presently has no evidence of edema or pulmonary congestion. Will hold Lasix for now -Continue atorvastatin 40 mg daily at bedtime, Imdur 60 mg daily, lisinopril 2.5 mg daily, and metoprolol tartrate 25 mg twice daily. -the patient is status post stenting last month will continue clopidogrel 75 mg daily. -request recent medical records from [facility]. 5. Hypertension, chronic, present on admission. Stable. -Continue home regimen of isosorbide 60 mg daily, lisinopril 2.5 mg daily, and metoprolol tartrate 25 mg twice daily. 6. Hyperlipidemia, chronic, present on admission. Stable. -Continue home regimen atorvastatin 40 mg daily at bedtime. 7. Diabetes mellitus type 2, insulin using, present on admission. Stable. -hemoglobin A1c was 8.3 on 12/21/2019 improved from 10.5 in September 2019. -patient with bilateral lower extremity neuropathy in preserved renal function. -patient takes Lantus 80 units twice daily and is not tolerating much p.o. intake at this time. His glucose tends to rise with clears, fasting this AM was controlled. Will give 15 units in the AM only to try and avoid AM hypoglycemia and try to improve meal time lab values. -blood glucose checks ACHS, ordered medium-dose correctional scale insulin. -Continue gabapentin 300 mg twice daily. 8. Chronic kidney disease stage 2, present on admission. Stable. -patient with previous history of chronic kidney disease stage 2 not in evidence on admission today. -admission labs showed BUN of 13 and creatinine of 0.87. EGFR is calculated greater than 60, calculated creatinine clearance is 107.16. -Continue to monitor creatinine periodically. 9. Hypothyroidism, chronic, present on admission. Stable. -Continue levothyroxine 50 mcg daily. 10. . Depression, chronic, present on admission. Stable. -Continue citalopram 40 mg daily and bupropion 150 mg daily. -continue bupropion 150 mg daily. 11. Tobacco dependence, chronic, present on admission. Stable. -1/2 pack per day smoking history for 45 years. -Ordered nicotine patch 21 mg daily as needed for nicotine withdrawal. 12. Obstructive sleep apnea not on CPAP, chronic, present on admission. Stable. -Encouraged compliance with CPAP and discussed effects of untreated KATI. -Ordered CPAP per RT protocol. 13. Recurrent transitory ischemic attacks, currently asymptomatic, stable. -patient reports having recurrent symptoms most recent event was during hospitalization [place] during hypertensive episode with expressive aphasia.
[2020-01-13] MEDS: INSULIN GLARGINE 100 UNIT/ML 3ML PEN 15 UNIT SUBCUT (12:56)
--- NOTE | 2020-01-13 14:25 | OT.IP.EVAL ---
Current Diagnoses Diverticulitis of large intestine with perforation and abscess without bleeding (01/11/20) Past Medical History (Last Updated 01/11/20 @ 02:59 by LESVIA Escobedo) Chicken pox (Resolved 1956) Chickenpox (Resolved 1956) Chronic cough (Chronic) COPD (chronic obstructive pulmonary disease) (Chronic) Coronary artery disease (Chronic 2006) Depression (Chronic 2008) Diabetes (Chronic 1994) Eczema (Chronic) Foot pain (Chronic) GERD (gastroesophageal reflux disease) (Chronic 2012) Gout (Resolved) History of recurrent TIAs (Acute) Hyperlipidemia (Chronic) Hypertension (Chronic) Hypothyroidism (Chronic) Kidney disease (Chronic 2009) Measles (Resolved 1955) Measles (Resolved 1955) Mumps (Resolved 1958) Mumps (Resolved 1958) Neuropathy (Chronic) Obstructive sleep apnea (Chronic) Shoulder pain (Chronic) Status post myocardial infarction (Resolved) Strain of muscle of right groin region (Resolved 03/30/18) Well adult exam (Acute) Surgical History (Last Reviewed 12/11/19 @ 07:04 by Brandon Pinto MD) Anesthesia (Resolved) History of heart artery stent (Resolved 2006) History of heart artery stent (Resolved 2010) Hx of shoulder surgery (Resolved 2005) Occupational Therapy Inpatient Evaluation/Re-Eval Document 01/13/20 13:56 [facility] (Rec: 01/13/20 16:29 [facility] [id number]) Medical Review Prior Functional Status Medical History Reviewed Yes Communication able to make needs known Mobility and Gait pt stated that he is modified independent with all mobilities and ambulation using SPC Activities of Daily Living and IADL's stated that sonali EMILY comes in to assist him with showers and also has HHPT Pt states prior needing assist for shoes/socks and occasionally help to get his pants on. Pt states prior independent with toileting and medications via pill box. Social History Household Members family,children,other Living Arrangements House Number of Floors (Floors) One Floor Number of Stairs To Enter/Railing? 4 steps to enter with wide bilateral rails and can only use one rail at a time Home Environment Standard Height Toilet,Tub/ Shower Home Equipment Straight Cane,Tub Transfer Bench,Hand Held Shower,Grab Bars In Shower Additional Social History Comment pt stated that he sleeps on his recliner M2 OT-IP Current Condition Start: 01/13/20 14:43 Freq: Status: Active Protocol: Document 01/13/20 13:56 [facility] (Rec: 01/13/20 16:29 [facility] [id number]) Occupational Therapy Current Condition Current Condition Evaluation Date 01/13/20 Treatment Diagnosis Diverticulitis with microperforation, decreased mobility Diagnosis Onset Date 01/11/20 Weight Bearing Status Weight Bearing Status Weight Bear as Tolerated M3 OT- IP Subjective and Pain Start: 01/13/20 14:43 Freq: Status: Active Protocol: Document 01/13/20 13:56 [facility] (Rec: 01/13/20 16:29 [facility] [id number]) OT- Subjective Occupational Therapy Visit Type Type Initial Evaluation Visit Start Time 13:56 Visit Stop Time 14:25 Total Visit Minutes 29 Occupational Therapy Visit Comments Patient Comments Pt just wanting to get up from BSC to get back to the recliner. Patient/Caregiver Goals To go home when medically ready. OT Pain Assessment Pain When Pain Assessed At Rest Pain Present Pain Present Denied Pain M4 OT- IP ADL's Start: 01/13/20 14:43 Freq: Status: Active Protocol: Document 01/13/20 13:56 [facility] (Rec: 01/13/20 16:29 [facility] [id number]) OT OMA-Dqke-Nnqradg Comments OT Self-Feeding Comments Not at meal time. OT ADL-Dressing General Eval Lower Body Dressing Ability Maximum Assistance Areas Needing Assistance Socks Comments OT Dressing Comments Pt states has a lean [employer] sigma black belt at home and family able to assist for dressing needs. OT ADL-Toileting Comments OT Toileting Comments Pt sat on the BSC , not able to go. OT ADL-Bathing Comments OT Bathing Comments Not at this time. M5 OT- IP IADL's Start: 01/13/20 14:43 Freq: Status: Active Protocol: Document 01/13/20 13:56 [facility] (Rec: 01/13/20 16:29 [facility] [id number]) OT-Instrumental Activities of Daily Living Home Safety Awareness Ability to Problem Solve Emergency Able to Problem Solve Situations Home Safety Comments Pt has a Life Alert. Medication Management Medication Management Comments Pt states use of pill box. Money Management Money Management Caregiver Provides Assistance Money Management Comments Pt states son pays the bills. Meal Preparation Meal Preparation Caregiver Provides Assist Grain Elevator Man Grain Elevator Man Caregiver Provides Assist M6 OT- IP Functional Cognition Start: 01/13/20 14:43 Freq: Status: Active Protocol: Document 01/13/20 13:56 [facility] (Rec: 01/13/20 16:29 [facility] [id number]) Cognitive Factors Limiting Selfcare Function Cognitive Ability Level of Alertness Alert Patient Orientation Name,Month,Date,Year,Place, Situation Attention Span Ability Capable of Focused Attention, Capable of Sustained Attention Ability to Follow Commands Able to Follow Multi-Step Commands Cognitive Comments Cognitive Assessment Comments Pt just needing cues for FWW safety , otherwise appears to be at baseline for cognition. OT- Vision and Hearing OT- Hearing Assessment OT- Hearing Assessment WFL OT- Vision Assessment Visual Acuity Glasses All The Time M7 OT- IP Mobility and Balance Start: 01/13/20 14:43 Freq: Status: Active Protocol: Document 01/13/20 13:56 [facility] (Rec: 01/13/20 16:29 [facility] [id number]) OT-Transfer Assessment Sit to and From Stand Sit to and from Stand Moderate Assistance,2 Person Assistance Transfers Transfer Ability Moderate Assistance,2 Person Assistance Technique Transfer Destination Bedside Commode,Chair Transfer Technique Stand Step Pivot Devices Transfer Assistive Devices Gait Belt,Front Wheeled Walker Comments Mobility Comments MODA X 2 to stand, assist for balance and to help guide the FWW. VC for hand placement to help to reach back. OT- Gait Assessment Comments Gait Ability Comments Pt just did transfer from [facility] to recliner. OT- Balance Assessment Sitting Balance and Reactions Static Sitting Balance Ability Normal Standing Balance and Reactions Static Standing Balance Ability Poor M8 OT- IP Objective Assessments Start: 01/13/20 14:43 Freq: Status: Active Protocol: Document 01/13/20 13:56 [facility] (Rec: 01/13/20 16:29 [facility] [id number]) OT Strength Upper Extremity Strength Assessment Within Functional Limits OT-Muscle Tone Assessment Muscle Tone WNL Yes M9 OT- IP Assessment and Plan Start: 01/13/20 14:43 Freq: Status: Active Protocol: Document 01/13/20 13:56 [facility] (Rec: 01/13/20 16:29 [facility] [id number]) OT Summary Assessment and Plan Potential Rehabilitation Potential Good Analytic Complexity at Evaluation Low Summary OT Impairments Pain,Balance,Functional Mobility,Dressing,Toileting, Toilet Transfers,Activity Tolerance Progress Towards Goals Slow Progress due to Medical Issues,Slow Progress due to Activity Tolerance Assessment Summary Pr low complexity and main barrier is pain and now needing 2 person assist for functional mobility and ADl's . Pt states has family members to assist at home. Pending caregiver training suggest home with assist and home health. Goals Grooming Goal Independent Dressing Goal Moderate Assistance Toileting Goal Independent Toilet Transfer Goal Standby Assistance Patient/Caregiver Education Goal Caregiver Independent Assisting Patient Days to Meet Goals 10 Frequency of Treatment Frequency Of Treatment Once a Day Treatment Plan OT Treatment Plan ADL Training,Functional Mobility,Patient/Family Education,Discharge Planning Other Treatment Recommendations and Next Standing up at the sink with Treatment Focus FWW and the recliner behind him for grooming needs. Discharge Recommendations OT Discharge Recommendations Home with Assistance,Home Health Transportation Needs at Discharge Private Vehicle
[2020-01-13] MEDS: DOCUSATE 100 MG CAPSULE PO (20:41)
[2020-01-13] MEDS: ATORVASTATIN 20 MG TABLET 40 MG PO (20:41)
[2020-01-13] MEDS: ACETAMINOPHEN 325 MG TABLET 650 MG PO (20:42)
--- NOTE | 2020-01-13 23:43 | PC.NURSE ---
spoke with patient while family was present in room. Pt discloses that he does eat a whole bag of popcorn every day. Patient reports this is not his first time with Diverticulitis and admission for the is dx. Long conversation was held with pt and family regarding his popcorn intake and how it is not safe for him to eat this given his reoccurring issues with diverticulitis. Lots of education was done regarding appropriate diet to have with this dx. Family and patient are all in understanding and agreeable that patient needs to quite eating popcorn. Pt is aware that if he has another episode, that he may not be able to just treat with conservative treatment and that he may req. surgery if he cont. with his same eating patterns. Pt and family are concerned as the provider did inform them that the patient is not exactly the best candidate for surgery given his recent STENT placement and his cardiac history. Reading material offered to patient regarding appropriate diet to eat with given dx. Pt kindly declined at this time but had suggested maybe later.
[2020-01-14] VITALS (7 sets, daily range): BP systolic 108–138; BP diastolic 65–84; PULSE 67–91; RESP 15–20; TEMP 36.3–37.2; O2SAT 90–95
[2020-01-14] MEDS: PIPERACILLIN-TAZO 4.5 GM/100 ML FROZ.PIGGY IV ×4 (00:10→17:23)
[2020-01-14] MEDS: LACTATED RINGERS 1,000 ML 125 ML IV (01:01)
[2020-01-14] MEDS: metroNIDAZOLE 500 MG/100 ML PIGGYBACK 100 MG IV ×4 (01:02→17:36)
--- NOTE | 2020-01-14 01:07 | PC.NURSE ---
[employer] Note: 0030: Resting in bed. Vital signs stable. IV in place in lt forearm with LR infusing at 125cc/hr. Calf SCDs on. Pt denies abdominal pain at this time.
[2020-01-14] MEDS: MORPHINE 2 MG/ML INJ IV ×2 (03:32→03:40)
[2020-01-14] MEDS: DOCUSATE 100 MG CAPSULE PO ×2 (08:38→21:23)
[2020-01-14] MEDS: buPROPion SR 150 MG TAB PO (08:38)
[2020-01-14] MEDS: ISOSORBIDE MONONITRATE ER 30 MG TABLET 60 MG PO (08:38)
[2020-01-14] MEDS: MORPHINE 4 MG/ML INJ IV (08:38)
[2020-01-14] MEDS: lisinopriL 5 MG TABLET 2.5 MG PO (08:39)
[2020-01-14] MEDS: HEPARIN 5,000 UNIT/ML VIAL 5000 UNIT SUBCUT ×2 (08:39→21:23)
[2020-01-14] MEDS: CLOPIDOGREL 75 MG TABLET PO (08:40)
[2020-01-14] MEDS: LEVOTHYROXINE 50 MCG TABLET PO (08:40)
[2020-01-14] MEDS: NICOTINE 21 MG PATCH TOP (08:40)
[2020-01-14] MEDS: CITALOPRAM 20 MG TABLET 40 MG PO (08:40)
[2020-01-14] MEDS: GABAPENTIN 300 MG CAPSULE 900 MG PO ×2 (08:40→21:23)
[2020-01-14] MEDS: METOPROLOL IR 25 MG TABLET PO ×2 (08:40→21:23)
[2020-01-14] MEDS: PANTOPRAZOLE 40 MG VIAL IV (08:40)
[2020-01-14] MEDS: INSULIN ASPART 100 UNIT/ML INSULN PEN SUBCUT ×4 (08:41→21:23)
[2020-01-14] MEDS: INSULIN GLARGINE 100 UNIT/ML 3ML PEN 15 UNIT SUBCUT (08:42)
[2020-01-14] MEDS: ALBUTEROL 2.5 MG/3 ML NEB (ADULT) INH (09:13)
[2020-01-14] MEDS: BECLOMETHASONE 40 MCG INH 10.6 GM 1 PUFF INH ×2 (09:13→21:26)
[2020-01-14 09:40] LABS: Add Manual Diff / Slide Review NO; Basophils Absolute Auto 0 /uL (0-100); Basophils Percent Auto 0.2 % (0-2); Eosinophils Absolute Auto 100 /uL (0-450); Eosinophils Percent Auto 0.6 % (2-4); Hematocrit 33.6 % (41-53); Hemoglobin 11.4 g/dL (13.5-17.5); Lymphocytes Absolute Auto 600 /uL (1100-4500); Lymphocytes Percent Auto 4.5 % (25-40); Mean Corpuscular HGB Conc 34.1 % (30-36); Mean Corpuscular Hemoglobin 31.4 PG (26-34); Mean Corpuscular Volume 92.2 fL (80-100); Monocytes Absolute Auto 800 /uL (0-900); Monocytes Percent Auto 6.4 % (3-14); Neutrophils Absolute Auto 11600 /uL (1500-7000); Neutrophils Percent Auto 88.3 % (50-75); Platelet Count 251 X10^3/uL (150-400); Red Blood Cell Count 3.64 X10^6/uL (4.5-5.9); Red Cell Distribution Width 13.9 % (11.6-14.8); White Blood Cell Count 13.1 X10^3/uL (4.5-11.0)
[2020-01-14 09:54] LABS: BUN Creatinine Ratio 11.8 (6-22); Blood Urea Nitrogen 9 mg/dL (9-20); Calcium 8.6 mg/dL (8.4-10.2); Carbon Dioxide 27 mmol/L (22-32); Chloride 100 mmol/L (98-107); Estimated Glomerular Filt Rate > 60.0 mL/min (>60); Glucose 215 mg/dL (80-110); HEMOLYSIS < 15 (0-50); Magnesium 1.7 mg/dL (1.6-2.3); Potassium 3.8 mmol/L (3.4-5.1); Sodium 135 mmol/L (137-145)
--- NOTE | 2020-01-14 10:48 | P.PN_ITS ---
Subjective Subjective Date Patient Seen: 01/14/20 Time Patient Seen: 10:48 Interval history: Patient is been in the hospital for 3 days now with acute diverticulitis with a micro perforation. He is slowly improving. He has less discomfort today. Exam Vital Signs (past 8 hours): - 01/14/20 03:22 01/14/20 08:35 01/14/20 09:30 Temperature 98.1 F 98.9 F Pulse Rate 69 78 88 Respiratory Rate 20 17 18 Blood Pressure 108/65 138/84 Pulse Oximetry 95 93 90 L Oxygen Delivery Method Room Air Oxygen Flow Rate 0 Narrative Exam Narrative: Patient is afebrile. Abdomen still distended. Patient continues to have left lower quadrant tenderness but it seems less every day. Objective Labs Result Diagrams: 01/14/20 09:20 01/14/20 09:20 Labs: Laboratory Results - last 24 hr 01/14/20 01/14/20 09:20 09:20 WBC 13.1 H RBC 3.64 L Hgb 11.4 L Hct 33.6 L MCV 92.2 MCH 31.4 MCHC 34.1 RDW 13.9 Plt Count 251 Neut % (Auto) 88.3 H Lymph % (Auto) 4.5 L [place] % (Auto) 6.4 Eos % (Auto) 0.6 L Baso % (Auto) 0.2 Neut # (Auto) 65227 H Lymph # (Auto) 600 L [place] # (Auto) 800 Eos # (Auto) 100 Baso # (Auto) 0 Sodium 135 L Potassium 3.8 Chloride 100 Carbon Dioxide 27 BUN 9 Creatinine 0.76 Estimated GFR > 60.0 BUN/Creatinine Ratio 11.8 Glucose 215 H Calcium 8.6 Magnesium 1.7 Assessment & Plan Assessment & Plan narrative: Patient seems recovering with conservative management of sigmoid diverticulitis with a micro perforation. He has been afebrile since I added Flagyl to the Zosyn therapy. His white count is now down to 13,500. We will continue the same management.
[2020-01-14] MEDS: HYDROMORPHONE 1 MG INJ IV ×3 (11:54→21:50)
--- NOTE | 2020-01-14 12:36 | PM.PN.1 ---
Subjective Subjective Date Patient Seen: 01/14/20 Time Patient Seen: 09:00 Interval history: Mr. Rashad Randall is a 64-year-old male with a history significant for coronary artery disease with IA status post coronary stents, COPD, hypertension, hyperlipidemia, poorly controlled diabetes type 2, on insulin, with diabetic neuropathy, chronic kidney disease stage 2, hypothyroidism, GERD and recurrent TIAs who presented to the emergency room for abdominal pain. He was diagnosed with diverticulitis with a microperforation, he is seen today for follow-up. The patient does state that he is hungry, and that he does feel somewhat improved as far as his abdominal pain since admission. This morning he did have some more pain and stated his morphine was not lasting as long. He was also somewhat nauseous but had no emesis. He has been passing gas but had no bowel movements. His white blood cell count improved slightly today. He denies any fevers or chills, he does want to try and get up and ambulate today. Exam Vital Signs (past 8 hours): - 01/14/20 08:35 01/14/20 09:30 Temperature 98.9 F Pulse Rate 78 88 Respiratory Rate 17 18 Blood Pressure 138/84 Pulse Oximetry 93 90 L Oxygen Delivery Method Room Air Oxygen Flow Rate 0 Narrative Exam Narrative: GENERAL APPEARANCE: Well developed, well nourished, in no acute distress. SKIN: Inspection of the skin reveals no rashes, ulcerations or petechiae. HEENT: Normocephalic atraumatic, extraocular muscles are intact, oropharynx is clear and mucous membranes are moist, neck is supple without adenopathy NECK: Supple and symmetric. There was no thyroid enlargement, and no tenderness, or masses were felt. CHEST: Normal AP diameter and normal contour without any kyphoscoliosis. LUNGS: Auscultation of the lungs revealed no wheezes, rhonchi, or rales. CARDIOVASCULAR: There was a regular rate and rhythm without any murmurs, gallops, rubs. Peripheral pulses were 2+ and symmetric. ABDOMEN: improved distension but still mildly distended. tender LLQ more laterally MUSCULOSKELETAL: There was no tenderness or effusions noted. Muscle strength and tone were normal. EXTREMITIES: No cyanosis, clubbing or edema. NEUROLOGIC: Alert and oriented x 3. Normal affect. Gait was normal. Strength is +5/5 in the Upper Extremities and Lower Extremities Bilaterally. Sensation to touch was normal. Objective Labs Result Diagrams: 01/14/20 09:20 01/14/20 09:20 Labs: Laboratory Results - last 24 hr 01/14/20 01/14/20 09:20 09:20 WBC 13.1 H RBC 3.64 L Hgb 11.4 L Hct 33.6 L MCV 92.2 MCH 31.4 MCHC 34.1 RDW 13.9 Plt Count 251 Neut % (Auto) 88.3 H Lymph % (Auto) 4.5 L [place] % (Auto) 6.4 Eos % (Auto) 0.6 L Baso % (Auto) 0.2 Neut # (Auto) 96540 H Lymph # (Auto) 600 L [place] # (Auto) 800 Eos # (Auto) 100 Baso # (Auto) 0 Sodium 135 L Potassium 3.8 Chloride 100 Carbon Dioxide 27 BUN 9 Creatinine 0.76 Estimated GFR > 60.0 BUN/Creatinine Ratio 11.8 Glucose 215 H Calcium 8.6 Magnesium 1.7 Assessment & Plan Assessment & Plan narrative: Mr. Rashad Randall is a 64-year-old male with a history significant for coronary artery disease with IA status post coronary stents, COPD, hypertension, hyperlipidemia, poorly controlled diabetes type 2, on insulin, with diabetic neuropathy, chronic kidney disease stage 2, hypothyroidism, GERD and recurrent TIAs who presented to the emergency room for abdominal pain, he is admitted for sigmoid diverticulitis with micro perforation. Surgery is following and added Flagyl due to a rising white blood cell count which has somewhat helped. Trying to avoid surgical intervention given patient is high medical risk given his recent stenting. 1. Sigmoid diverticulitis with microperforation, present on admission, active. -Patient with onset of acute lower abdominal pain with recurrent episodes of nausea vomiting and diarrhea. His symptoms are improving somewhat with medical management. -CT exam showed acute sigmoid diverticulitis with several adjacent tiny gas bubbles compatible with microperforation, adjacent mesenteric inflammation with free fluid. -white count is 11.4 on admission, slightly increased to 15 but today improved to 13. -continue Zosyn and Flagyl per surgical recommendations -appreciate Dr. Ryder's consult, evaluation and recommendations. -patient is tolerating clears, will continue. -pain control will change to dilaudid today, started colace. 2. COPD, present on admission, active -patient chronic cough secondary to COPD, he denies shortness of breath arrest but reports exertional dyspnea. -respiratory therapy to consult, eval and treat -DuoNebs every 6 hours as needed. -albuterol nebulizer every 2 hours as needed -supplemental O2 as needed. 3. Alcohol abuse, chronic, present on admission. Stable. -with patient states that he is trying to stop drinking and reports drinking 2-3 drinks per month. -no evidence of tremors or withdrawal symptoms, patient denies experiencing DTs or withdrawal seizures. 4. Coronary artery disease status post stenting, chronic, present on admission, stable. -the patient with a history of IA in 2006 with stent placement with additional stenting in 2010. -the patient was discharged from [facility] on 12/16/2019 after having stent placement (Circumflex A based on review of [facility] films). -the patient presently has no evidence of edema or pulmonary congestion. Will hold Lasix for now -Continue atorvastatin 40 mg daily at bedtime, Imdur 60 mg daily, lisinopril 2.5 mg daily, and metoprolol tartrate 25 mg twice daily. -the patient is status post stenting last month will continue clopidogrel 75 mg daily. 5. Hypertension, chronic, present on admission. Stable. -Continue home regimen of isosorbide 60 mg daily, lisinopril 2.5 mg daily, and metoprolol tartrate 25 mg twice daily. 6. Hyperlipidemia, chronic, present on admission. Stable. -Continue home regimen atorvastatin 40 mg daily at bedtime. 7. Diabetes mellitus type 2, insulin using, present on admission. Stable. -hemoglobin A1c was 8.3 on 12/21/2019 improved from 10.5 in September 2019. -patient with bilateral lower extremity neuropathy in preserved renal function. -patient takes Lantus 80 units twice daily and is not tolerating much p.o. intake at this time. His glucose tends to rise with clears, fasting this AM was controlled. Will give 15 units in the AM only to try and avoid AM hypoglycemia and try to improve meal time lab values. -blood glucose checks ACHS, ordered medium-dose correctional scale insulin. -Continue gabapentin 300 mg twice daily. 8. Chronic kidney disease stage 2, present on admission. Stable. -patient with previous history of chronic kidney disease stage 2 not in evidence on admission today. -admission labs showed BUN of 13 and creatinine of 0.87. EGFR is calculated greater than 60, calculated creatinine clearance is 107.16. -Continue to monitor creatinine periodically. 9. Hypothyroidism, chronic, present on admission. Stable. -Continue levothyroxine 50 mcg daily. 10. . Depression, chronic, present on admission. Stable. -Continue citalopram 40 mg daily and bupropion 150 mg daily. -continue bupropion 150 mg daily. 11. Tobacco dependence, chronic, present on admission. Stable. -1/2 pack per day smoking history for 45 years. -Ordered nicotine patch 21 mg daily as needed for nicotine withdrawal. 12. Obstructive sleep apnea not on CPAP, chronic, present on admission. Stable. -Encouraged compliance with CPAP and discussed effects of untreated KATI. -Ordered CPAP per RT protocol. 13. Recurrent transitory ischemic attacks, currently asymptomatic, stable. -patient reports having recurrent symptoms most recent event was during hospitalization [place] during hypertensive episode with expressive aphasia. Code: full DVT: HSQ BID
--- NOTE | 2020-01-14 13:54 | PT-IP ANOTE ---
Pt refused stating he just got back into bed after walking in the hallway with nursing.
--- NOTE | 2020-01-14 14:38 | OT.IP.TRT ---
Current Diagnoses Diverticulitis of large intestine with perforation and abscess without bleeding (01/11/20) Occupational Therapy Treatment Note M2 OT-IP Current Condition Start: 01/13/20 14:43 Freq: Status: Active Protocol: Document 01/13/20 13:56 [facility] (Rec: 01/13/20 16:29 [facility] [id number]) Occupational Therapy Current Condition Current Condition Evaluation Date 01/13/20 Treatment Diagnosis Diverticulitis with microperforation, decreased mobility Diagnosis Onset Date 01/11/20 Weight Bearing Status Weight Bearing Status Weight Bear as Tolerated M3 OT- IP Subjective and Pain Start: 01/13/20 14:43 Freq: Status: Active Protocol: Document 01/14/20 16:32 [facility] (Rec: 01/14/20 16:38 [facility] [id number]) OT- Subjective Occupational Therapy Visit Type Type Progress Note Visit Start Time 14:17 Visit Stop Time 14:38 Total Visit Minutes 21 OT Pain Assessment Pain When Pain Assessed At Rest Pain Present Pain Present Denied Pain M4 OT- IP ADL's Start: 01/13/20 14:43 Freq: Status: Active Protocol: Document 01/14/20 16:32 [facility] (Rec: 01/14/20 16:38 [facility] [id number]) OT [id number] General Evaluation Self-Feeding Ability Independent Comments OT Self-Feeding Comments able to get jello to mouth OT ADL-Grooming General Evaluation Grooming Ability Standby Assistance Areas Needing Assistance Retrieving/Set-up of Grooming Items,Combing/Brushing Hair, Face Washing Comments OT Grooming Comments standing at sink OT ADL-Oral Care General Eval Oral Care Ability Standby Assistance Areas of Assistance Brushing Teeth Comments Oral Care Comments standing at sink OT ADL-Dressing Comments OT Dressing Comments not performed in this session. OT ADL-Toileting Comments OT Toileting Comments Pt declined need as he still has magaña OT ADL-Bathing Comments OT Bathing Comments not performed in this session M5 OT- IP IADL's Start: 01/13/20 14:43 Freq: Status: Active Protocol: Document 01/13/20 13:56 [facility] (Rec: 01/13/20 16:29 [facility] [id number]) OT-Instrumental Activities of Daily Living Home Safety Awareness Ability to Problem Solve Emergency Able to Problem Solve Situations Home Safety Comments Pt has a Life Alert. Medication Management Medication Management Comments Pt states use of pill box. Money Management Money Management Caregiver Provides Assistance Money Management Comments Pt states son pays the bills. Meal Preparation Meal Preparation Caregiver Provides Assist Bobbin Coil Winder Bobbin Coil Winder Caregiver Provides Assist M6 OT- IP Functional Cognition Start: 01/13/20 14:43 Freq: Status: Active Protocol: Document 01/14/20 16:32 [facility] (Rec: 01/14/20 16:38 [facility] [id number]) Cognitive Factors Limiting Selfcare Function Cognitive Ability Level of Alertness Alert Patient Orientation Name,Age,Birthday,Month,Date, Year,Day of Week,Place, Situation Attention Span Ability Capable of Focused Attention Ability to Follow Commands Able to Follow One Step Commands OT- Vision and Hearing OT- Hearing Assessment OT- Hearing Assessment WFL OT- Vision Assessment Visual Acuity Glasses All The Time M7 OT- IP Mobility and Balance Start: 01/13/20 14:43 Freq: Status: Active Protocol: Document 01/14/20 16:32 [facility] (Rec: 01/14/20 16:38 [facility] [id number]) OT- Bed Mobility Assessment Rolling Type of Rolling Roll to Right Level of Assistance Minimal Assistance,Moderate Assistance Supine to Sit Supine to Sit Assist Minimal Assistance,Moderate Assistance Scooting Scooting to Edge of Bed Standby Assistance OT-Transfer Assessment Sit to and From Stand Sit to and from Stand Minimal Assistance Transfers Transfer Ability Minimal Assistance Technique Transfer Destination Bed,Chair Transfer Technique Stand Step Pivot Devices Transfer Assistive Devices Gait Belt,Front Wheeled Walker Comments Mobility Comments Pt ambulated to sink ans was able to stand for ADLs at sink . Pt states fatigue but agreeable to going to chair. OT- Gait Assessment Gait Gait Assistance Required: Minimum Assistance Assistive Devices Assistive Device Gait Belt,Front Wheeled Walker Comments Gait Ability Comments Mobility from bed to sink back to chair at bedside. OT- Balance Assessment Sitting Balance and Reactions Static Sitting Balance Ability Good Dynamic Sitting Balance Ability Fair M8 OT- IP Objective Assessments Start: 01/13/20 14:43 Freq: Status: Active Protocol: Document 01/13/20 13:56 [facility] (Rec: 01/13/20 16:29 [facility] [id number]) OT Strength Upper Extremity Strength Assessment Within Functional Limits OT-Muscle Tone Assessment Muscle Tone WNL Yes M9 OT- IP Assessment and Plan Start: 01/13/20 14:43 Freq: Status: Active Protocol: Document 01/14/20 16:32 [facility] (Rec: 01/14/20 16:38 [facility] [id number]) OT Summary Assessment and Plan Potential Rehabilitation Potential Good Analytic Complexity at Evaluation Low Summary OT Impairments Pain,Balance,Functional Mobility,Dressing,Toileting, Toilet Transfers,Activity Tolerance Progress Towards Goals Slow Progress due to Medical Issues,Slow Progress due to Activity Tolerance Assessment Summary Pt with nausea after activity but was more stable needing only 1 person assist on this date. Pt will continue to benefit from OT services. Goals Grooming Goal Independent Dressing Goal Moderate Assistance Toileting Goal Independent Toilet Transfer Goal Standby Assistance Patient/Caregiver Education Goal Caregiver Independent Assisting Patient Days to Meet Goals 9 Frequency of Treatment Frequency Of Treatment Once a Day Treatment Plan OT Treatment Plan ADL Training,Functional Mobility,Patient/Family Education,Discharge Planning Other Treatment Recommendations and Next Standing up at the sink with Treatment Focus FWW and the recliner behind him for grooming needs. Discharge Recommendations OT Discharge Recommendations Home with Assistance,Home Health Transportation Needs at Discharge Private Vehicle
[2020-01-14] MEDS: MELATONIN 3 MG TABLET 6 MG PO (21:23)
[2020-01-14] MEDS: ATORVASTATIN 20 MG TABLET 40 MG PO (21:23)
[2020-01-14] MEDS: LACTATED RINGERS 1,000 ML 100 ML IV (21:36)
[2020-01-15] VITALS (8 sets, daily range): BP systolic 117–150; BP diastolic 71–86; PULSE 69–82; RESP 16–18; TEMP 36.7–37.2; O2SAT 91–99
[2020-01-15] MEDS: PIPERACILLIN-TAZO 4.5 GM/100 ML FROZ.PIGGY IV ×5 (00:03→23:52)
[2020-01-15] MEDS: metroNIDAZOLE 500 MG/100 ML PIGGYBACK 100 MG IV ×4 (00:50→19:35)
[2020-01-15] MEDS: HYDROMORPHONE 1 MG INJ IV ×2 (01:39→10:11)
[2020-01-15 05:20] LABS: Hematocrit 33.5 % (41-53); Hemoglobin 11.1 g/dL (13.5-17.5); Mean Corpuscular HGB Conc 33.1 % (30-36); Mean Corpuscular Volume 93.7 fL (80-100); Platelet Count 284 X10^3/uL (150-400); Red Blood Cell Count 3.57 X10^6/uL (4.5-5.9); Red Cell Distribution Width 13.8 % (11.6-14.8); White Blood Cell Count 12.5 X10^3/uL (4.5-11.0)
[2020-01-15 05:21] LABS: Add Manual Diff / Slide Review YES
[2020-01-15 05:32] LABS: BUN Creatinine Ratio 11.3 (6-22); Blood Urea Nitrogen 9 mg/dL (9-20); Calcium 8.4 mg/dL (8.4-10.2); Carbon Dioxide 31 mmol/L (22-32); Chloride 98 mmol/L (98-107); Estimated Glomerular Filt Rate > 60.0 mL/min (>60); Glucose 173 mg/dL (80-110); HEMOLYSIS < 15 (0-50); Magnesium 1.7 mg/dL (1.6-2.3); Potassium 4.3 mmol/L (3.4-5.1); Sodium 134 mmol/L (137-145)
[2020-01-15] MEDS: LEVOTHYROXINE 50 MCG TABLET PO (06:18)
[2020-01-15 07:41] LABS: Neutrophils Absolute Manual 10375 /uL (3000-5900); RBC Morphology Normal Morphology; Total Cells Counted 100
[2020-01-15] MEDS: GABAPENTIN 300 MG CAPSULE 900 MG PO ×2 (10:06→20:23)
[2020-01-15] MEDS: DOCUSATE 100 MG CAPSULE PO (10:06)
[2020-01-15] MEDS: METOPROLOL IR 25 MG TABLET PO ×2 (10:06→20:24)
[2020-01-15] MEDS: ISOSORBIDE MONONITRATE ER 30 MG TABLET 60 MG PO (10:06)
[2020-01-15] MEDS: lisinopriL 5 MG TABLET 2.5 MG PO (10:06)
[2020-01-15] MEDS: CLOPIDOGREL 75 MG TABLET PO (10:07)
[2020-01-15] MEDS: CITALOPRAM 20 MG TABLET 40 MG PO (10:07)
[2020-01-15] MEDS: buPROPion SR 150 MG TAB PO (10:07)
[2020-01-15] MEDS: HEPARIN 5,000 UNIT/ML VIAL 5000 UNIT SUBCUT ×2 (10:10→20:24)
[2020-01-15] MEDS: PANTOPRAZOLE 40 MG VIAL IV (10:10)
[2020-01-15] MEDS: NICOTINE 21 MG PATCH TOP (10:10)
[2020-01-15] MEDS: BECLOMETHASONE 40 MCG INH 10.6 GM 1 PUFF INH ×2 (10:11→20:00)
[2020-01-15] MEDS: INSULIN GLARGINE 100 UNIT/ML 3ML PEN 15 UNIT SUBCUT (10:12)
[2020-01-15] MEDS: INSULIN ASPART 100 UNIT/ML INSULN PEN SUBCUT ×3 (10:41→16:57)
--- NOTE | 2020-01-15 10:56 | P.PN_ITS ---
Subjective Subjective Date Patient Seen: 01/15/20 Time Patient Seen: 10:57 Interval history: Day for of admission for patient with acute sigmoid diverticulitis with micro perforation. He is steadily improving. At the moment today he has no abdominal pain. Is passing flatus and had a bowel movement. No nausea vomiting. Exam Vital Signs (past 8 hours): - 01/15/20 05:16 01/15/20 08:30 Temperature 98.5 F 98.6 F Pulse Rate 77 80 Respiratory Rate 16 17 Blood Pressure 131/74 150/86 H Pulse Oximetry 92 92 Oxygen Delivery Method Room Air Oxygen Flow Rate 0 Narrative Exam Narrative: Patient is afebrile. Abdomen still distended but soft Much less left lower quadrant abdominal tenderness today. Objective Labs Result Diagrams: 01/15/20 04:55 01/15/20 04:55 Labs: Laboratory Results - last 24 hr 01/15/20 01/15/20 04:55 04:55 WBC 12.5 H RBC 3.57 L Hgb 11.1 L Hct 33.5 L MCV 93.7 MCH 31.0 MCHC 33.1 RDW 13.8 Plt Count 284 Neut % (Auto) Not Reportable Lymph % (Auto) Not Reportable [place] % (Auto) Not Reportable Eos % (Auto) Not Reportable Baso % (Auto) Not Reportable Lymph # (Auto) Not Reportable [place] # (Auto) Not Reportable Baso # (Auto) Not Reportable Total Counted 100 Seg Neutrophils % 62.0 Band Neutrophils % 21.0 H Lymphocytes % (Manual) 7.0 L Atypical Lymphs % 2.0 H Monocytes % (Manual) 8.0 Neutrophils # (Manual) 65285 H RBC Morphology Normal morphology Sodium 134 L Potassium 4.3 Chloride 98 Carbon Dioxide 31 BUN 9 Creatinine 0.80 Estimated GFR > 60.0 BUN/Creatinine Ratio 11.3 Glucose 173 H Calcium 8.4 Magnesium 1.7 Assessment & Plan Assessment & Plan narrative: Patient is recovering with conservative therapy for micro perforation sigmoid diverticulitis. He remains on 2 antibiotics. White count has fallen to 12,000 today. I will and slowly advance his diet. Continue IV Zosyn and Flagyl.
--- NOTE | 2020-01-15 11:11 | P.PN_ITS ---
Subjective Subjective Date Patient Seen: 01/15/20 Time Patient Seen: 09:05 Interval history: Mr. Rashad Randall is a 64-year-old male with a history significant for coronary artery disease with OK status post coronary stents, COPD, hypertension, hyperlipidemia, poorly controlled diabetes type 2, on insulin, with diabetic neuropathy, chronic kidney disease stage 2, hypothyroidism, GERD and recurrent TIAs who presented to the emergency room for abdominal pain. He was diagnosed with diverticulitis with a microperforation, he is seen today for follow-up. The patient does state that he is hungry, and that he does feel somewhat improved as far as his abdominal pain. He has been passing gas but had no bowel movements. Will add a bowel regimen today after discussing with surgery. His white blood cell count improved slightly today. He denies any fevers or chills. Patient is getting up with PT and OT currently. He still has a magaña catheter placed for obstructive symptoms which may be secondary to opiates, will start on flomax and attempt trail of void tomorrow hopefully once he has had a bowel movement and is using less opiate pain medications. Exam Vital Signs (past 8 hours): - 01/15/20 05:16 01/15/20 08:30 Temperature 98.5 F 98.6 F Pulse Rate 77 80 Respiratory Rate 16 17 Blood Pressure 131/74 150/86 H Pulse Oximetry 92 92 Oxygen Delivery Method Room Air Oxygen Flow Rate 0 Narrative Exam Narrative: GENERAL APPEARANCE: Well developed, well nourished, in no acute distress. SKIN: Inspection of the skin reveals no rashes, ulcerations or petechiae. HEENT: Normocephalic atraumatic, extraocular muscles are intact, oropharynx is clear and mucous membranes are moist, neck is supple without adenopathy NECK: Supple and symmetric. There was no thyroid enlargement, and no tenderness, or masses were felt. CHEST: Normal AP diameter and normal contour without any kyphoscoliosis. LUNGS: Auscultation of the lungs revealed no wheezes, rhonchi, or rales. CARDIOVASCULAR: There was a regular rate and rhythm without any murmurs, gallops, rubs. Peripheral pulses were 2+ and symmetric. ABDOMEN: still mildly distended. tender LLQ more laterally and improved today MUSCULOSKELETAL: There was no tenderness or effusions noted. Muscle strength and tone were normal. EXTREMITIES: No cyanosis, clubbing or edema. NEUROLOGIC: Alert and oriented x 3. Normal affect.Strength is +5/5 in the Upper Extremities and Lower Extremities Bilaterally. Sensation to touch was normal. Objective Labs Result Diagrams: 01/15/20 04:55 01/15/20 04:55 Labs: Laboratory Results - last 24 hr 01/15/20 01/15/20 04:55 04:55 WBC 12.5 H RBC 3.57 L Hgb 11.1 L Hct 33.5 L MCV 93.7 MCH 31.0 MCHC 33.1 RDW 13.8 Plt Count 284 Neut % (Auto) Not Reportable Lymph % (Auto) Not Reportable [place] % (Auto) Not Reportable Eos % (Auto) Not Reportable Baso % (Auto) Not Reportable Lymph # (Auto) Not Reportable [place] # (Auto) Not Reportable Baso # (Auto) Not Reportable Total Counted 100 Seg Neutrophils % 62.0 Band Neutrophils % 21.0 H Lymphocytes % (Manual) 7.0 L Atypical Lymphs % 2.0 H Monocytes % (Manual) 8.0 Neutrophils # (Manual) 42173 H RBC Morphology Normal morphology Sodium 134 L Potassium 4.3 Chloride 98 Carbon Dioxide 31 BUN 9 Creatinine 0.80 Estimated GFR > 60.0 BUN/Creatinine Ratio 11.3 Glucose 173 H Calcium 8.4 Magnesium 1.7 Assessment & Plan Assessment & Plan narrative: Mr. Rashad Randall is a 64-year-old male with a history significant for coronary artery disease with OK status post coronary stents, COPD, hypertension, hyperlipidemia, poorly controlled diabetes type 2, on insulin, with diabetic neuropathy, chronic kidney disease stage 2, hypothyroidism, GERD and recurrent TIAs who presented to the emergency room for abdominal pain, he is admitted for sigmoid diverticulitis with micro perforation. Surgery is following and added Flagyl due to a rising white blood cell count which has helped. Trying to avoid surgical intervention given tammie ent is high medical risk given his recent stenting. 1. Sigmoid diverticulitis with microperforation, present on admission, active. -Patient with onset of acute lower abdominal pain with recurrent episodes of nausea vomiting and diarrhea. His symptoms are improving somewhat with medical management. -CT exam showed acute sigmoid diverticulitis with several adjacent tiny gas bubbles compatible with microperforation, adjacent mesenteric inflammation with free fluid. -white count is 11.4 on admission, slightly increased to 15 but recently downtrending slowly, now 12.5. -continue Zosyn and Flagyl per surgical recommendations -appreciate Dr. Ryder's consult, evaluation and recommendations. -patient is tolerating clears, will advance to low residue diet today. -pain control will change to dilaudid oral today, colace continued, added miralax daily prn and dulcolax suppository prn for constipation, likely related to opiate use. 2. COPD, present on admission, active -patient chronic cough secondary to COPD, he denies shortness of breath arrest but reports exertional dyspnea. -respiratory therapy to consult, eval and treat -DuoNebs every 6 hours as needed. -albuterol nebulizer every 2 hours as needed -supplemental O2 as needed. 3. Alcohol abuse, chronic, present on admission. Stable. -with patient states that he is trying to stop drinking and reports drinking 2-3 drinks per month. -no evidence of tremors or withdrawal symptoms, patient denies experiencing DTs or withdrawal seizures. -CIWA protocol discontinued. 4. Coronary artery disease status post stenting, chronic, present on admission, stable. -the patient with a history of OK in 2006 with stent placement with additional stenting in 2010. -the patient was discharged from [facility] on 12/16/2019 after having stent placement (Circumflex A based on review of [facility] films). -the patient presently has no evidence of edema or pulmonary congestion. Continue to hold lasix today. -Continue atorvastatin 40 mg daily at bedtime, Imdur 60 mg daily, lisinopril 2.5 mg daily, and metoprolol tartrate 25 mg twice daily. -the patient is status post stenting last month will continue clopidogrel 75 mg daily. 5. Hypertension, chronic, present on admission. Stable. -Continue home regimen of isosorbide 60 mg daily, lisinopril 2.5 mg daily, and metoprolol tartrate 25 mg twice daily. 6. Hyperlipidemia, chronic, present on admission. Stable. -Continue home regimen atorvastatin 40 mg daily at bedtime. 7. Diabetes mellitus type 2, insulin using, present on admission. Stable. -hemoglobin A1c was 8.3 on 12/21/2019 improved from 10.5 in September 2019. -patient with bilateral lower extremity neuropathy in preserved renal function. -patient takes Lantus 80 units twice daily and is not tolerating much p.o. intake at this time. His glucose tends to rise with clears, fasting this AM was controlled. He is currently only on 15 units lantus and his glucose values are somewhat controlled. Will increase to 25 given diet increase today. -blood glucose checks ACHS, ordered medium-dose correctional scale insulin. -Continue gabapentin 300 mg twice daily. 8. Chronic kidney disease stage 2, present on admission. Stable. -patient with previous history of chronic kidney disease stage 2 not in evidence on admission today. -admission labs showed BUN of 13 and creatinine of 0.87. EGFR is calculated greater than 60, calculated creatinine clearance is 107.16. -Continue to monitor creatinine periodically. 9. Hypothyroidism, chronic, present on admission. Stable. -Continue levothyroxine 50 mcg daily. 10. Depression, chronic, present on admission. Stable. -Continue citalopram 40 mg daily and bupropion 150 mg daily. -continue bupropion 150 mg daily. 11. Tobacco dependence, chronic, present on admission. Stable. -1/2 pack per day smoking history for 45 years. -Ordered nicotine patch 21 mg daily as needed for nicotine withdrawal. 12. Obstructive sleep apnea not on CPAP, chronic, present on admission. Stable. -Encouraged compliance with CPAP and discussed effects of untreated KATI. -Ordered CPAP per RT protocol. 13. Recurrent transitory ischemic attacks, currently asymptomatic, stable. -patient reports having recurrent symptoms most recent event was during hospitalization [place] during hypertensive episode with expressive aphasia, has not shown symptoms while admitted. 14. acute urinary obstruction, active - continue magaña catheter for now until having bowel movements and using less opiates, then attempt trial of void. - started flomax 0.4 mg daily Code: full DVT: HSQ BID
[2020-01-15] MEDS: polyethylene glycoL 3350 17 GM POWD.PACK PO (12:18)
[2020-01-15] MEDS: TAMSULOSIN 0.4 MG CAPSULE PO (12:18)
[2020-01-15] MEDS: HYDROMORPHONE 2 MG TABLET PO ×2 (14:35→19:34)
--- NOTE | 2020-01-15 15:16 | PT.IPTN ---
Current Diagnoses Diverticulitis of large intestine with perforation and abscess without bleeding (01/11/20) Physical Therapy Treatment Note M2 PT-IP Current Condition Start: 01/12/20 15:20 Freq: NEEDED Status: Active Protocol: Document 01/12/20 14:10 AB (Rec: 01/12/20 15:33 AB [id number]) Physical Therapy Current Condition Current Condition Evaluation Date 01/12/20 Treatment Diagnosis diverticulitis with microperforation; difficulty in walking Onset Date 01/11/2020 Precautions Other Precautions falls M3 PT-IP Subjective Start: 01/12/20 15:20 Freq: NEEDED Status: Active Protocol: Document 01/15/20 15:05 AW (Rec: 01/15/20 15:16 AW [id number]) Subjective Physical Therapy Visit Type Type Treatment Note Visit Start Time 13:36 Visit Stop Time 13:54 Total Visit Minutes 18 Number of UNIT AID Visits 0 Physical Therapy Visit Comments Patient Comments Pt has no pain complaint and is willing to participate with PT Therapy Pain Assessment Pain When Pain Assessed At Rest Pain Present Pain Present Denied Pain M4 PT-IP Mobility and Gait Start: 01/12/20 15:20 Freq: NEEDED Status: Active Protocol: Document 01/15/20 15:05 AW (Rec: 01/15/20 15:16 AW [id number]) PT-Bed Mobility Assessment Supine to Sit Supine to Sit Moderate Assistance,1 Person Assistance,Head of Bed Elevated,Bedrails Sit to Supine Sit to Supine Contact Guard Assistance Scooting Scooting to Edge of Bed Minimal Assistance PT-Transfer Assessment Sit to and From Stand Sit to and from Stand Minimal Assistance,1 Person Assistance,Use of Upper Extremities Equipment Transfer Assistive Device Gait Belt,Front Wheeled Walker Orthotic/Prosthetic Devices or Brace: No Transfers Transfer Destination Bed Transfer Technique Stand Step Pivot Transfer Ability Level of Assist Minimal Assistance,1 Person Assistance,Use of Upper Extremities Comments Mobility Comments Pt completed supine to sit with HOB elevated (he states he sleeps in a chair at home and has little practice getting out of bed) mod A x 1. He sat EOB without LOB using BUE for support. He stood using the walker min A x 1 but required min A at all times in standing due to immediate posterior LOB and ongoing unsteadiness. After gait training in the halls, pt returned to the room and stood at the sink to wash his face with min A for balance assist at all times. He then requested to go back to bed. He transferred himself back to supine CGA. He was positioned with the call light and all needs within reach, bed alarm activated for safety. Gait Assessment Gait Gait Assistance Required: Minimum Assistance,1 Person Assist Distance (Feet) 90 Able to Maintain Weight Bearing Status Yes During Gait Assistive Devices Assistive Device Gait Belt,Front Wheeled Walker Orthotic/Prosthetic Devices or Brace: No Gait Deviations General Gait Pattern Ataxic,Decreased Stride Length ,Decreased Feet Clearance,Step -to Gait Factors Limiting Gait Function Factors Limiting Gait Function Decreased Activity Tolerance, Decreased Sensation,Decreased Strength,Incoordination, Limited Range of Motion,Pain, Poor Balance,Poor Safety Awareness Comments Gait Comments Pt required min A x 1 at all times in static stance and during gait due to unsteadiness. He continues to present with ataxic and shuffling gait. M5 PT-IP Objective Assessments Start: 01/12/20 15:20 Freq: NEEDED Status: Active Protocol: Document 01/12/20 14:10 AB (Rec: 01/12/20 15:33 AB [id number]) Orientation Orientation/Cognition Level of Alertness Confusional State Orientation Name Safety Awareness Decreased Safety Awareness Gross Range of Motion Lower Extremity ROM Assessment Within Functional Limits Strength Lower Extremity Strength Assessment Bilaterally Impaired Hip 3+/5 Knee 3+/5 Coordination Assessment Gross Coordination Gross Coordination Impaired M6 PT-IP Treatment Start: 01/12/20 15:20 Freq: NEEDED Status: Active Protocol: Document 01/15/20 15:05 AW (Rec: 01/15/20 15:16 AW [id number]) Physical Therapy Treatment Education Education Provided Safety M7 PT-IP Assessment and Plan Start: 01/12/20 15:20 Freq: NEEDED Status: Active Protocol: Document 01/15/20 15:05 AW (Rec: 01/15/20 15:16 AW [id number]) PT Summary Assessment and Plan Potential Rehabilitation Potential Fair Summary Impairments Pain,ROM,Strength,Balance, Coordination,Sensation,Tone, Cognition,Bed Mobility, Transfers,Gait,Activity Tolerance Progress Towards Goals Slow Progress due to Medical Issues,Slow Progress due to Activity Tolerance Assessment Summary Pt required less assist this session, but continued to need min assist with all upright mobility due to ataxic gait, unsteadiness, and loss of balance. He continues to be an excellent candidate for SNF rehab upon discharge. Goals Bed Mobility Goal Minimal Assistance Transfer Goal Minimal Assistance,Front Wheeled Walker Gait Goal Minimal Assistance,Front Wheel Walker Gait Distance 50 Other Goals up/down 4 steps 1 rail min A Days to Meet Goals 20 Frequency of Treatment Frequency Of Treatment Once a Day Treatment Plan Physical Therapy Treatment Plan Bed Mobility Training,Transfer Training,Gait Training, Therapeutic Exercise,Balance Retraining,Discharge Planning, Hot or Cold Pack,Neuromuscular Re-ed,Coordination Retraining Other Recommendations and Next Treatment sitting/standing balance, Focus transfers, ambulation Recommendations To Nursing Amount of Assist Needed 1 Person Assist Discharge Recommendations PT Discharge Recommendations SNF Rehab Equipment Needed for Home Before FWW if home; if SNF - defer to Discharge rehab setting Transportation Needs at Discharge Wheelchair/Cabulance
--- NOTE | 2020-01-15 16:21 | PC.NURSE ---
Addendum entered by Naa Escobedo R.N. 01/15/20 21:48: Pt has summoned staff frequently this evening for multiple requests. Attempted to place scd's for sleep, but pt did not tolerate. 02 2L nc for sleep following narcotic administration. Pt reports h/o sleep apnea with cpap use. Up to commode x 2 for liquid brown stools. Malagon to gravity with dark candelaria colored urine. States abdominal pain 1/10 following oral dilaudid. IV fluids infusing as ordered without difficulty to right wrist iv site. Pt reports has been questioned by staff re utilizing hospital cpap which pt states not needed tonight. I'm going to sleep. Addendum entered by Naa Escobedo R.N. 01/15/20 17:27: Pt's room air oxygen level 88-89% as begins to doze. Informed pt narcotics may be responsible for this desaturation. Explained to pt applying oxygen for sleep which pt refuses stating, I want to eat first. Pt verbalizes displeasure with meal. This insurance underwriter phones kitchen to make pt's request. Pt states pain to abdomen is, okay 2/10. Denies nausea, but admits to poor appetite. Declines to wear BL scd's. Bed alarm in place. Pt is able to position self in bed independently. Malagon to gravity. Original Note: Per dayshift report, pt has had four loose stools. Dr. Conrad was informed by this insurance underwriter.
[2020-01-15] MEDS: LACTATED RINGERS 1,000 ML 100 ML IV (17:06)
[2020-01-15] MEDS: MELATONIN 3 MG TABLET 6 MG PO (20:22)
[2020-01-15] MEDS: ATORVASTATIN 20 MG TABLET 40 MG PO (20:23)
[2020-01-16] VITALS (11 sets, daily range): BP systolic 130–164; BP diastolic 74–93; PULSE 69–84; RESP 16–21; TEMP 35.9–36.7; O2SAT 89–97
[2020-01-16] MEDS: metroNIDAZOLE 500 MG/100 ML PIGGYBACK 100 MG IV ×4 (00:29→19:15)
[2020-01-16] MEDS: HYDROMORPHONE 2 MG TABLET PO ×3 (03:32→15:21)
[2020-01-16] MEDS: PIPERACILLIN-TAZO 4.5 GM/100 ML FROZ.PIGGY IV ×4 (05:50→23:46)
[2020-01-16 06:23] LABS: Add Manual Diff / Slide Review NO; Basophils Absolute Auto 0 /uL (0-100); Basophils Percent Auto 0.1 % (0-2); Eosinophils Absolute Auto 100 /uL (0-450); Eosinophils Percent Auto 0.8 % (2-4); Hematocrit 33.8 % (41-53); Hemoglobin 11.3 g/dL (13.5-17.5); Lymphocytes Absolute Auto 1100 /uL (1100-4500); Lymphocytes Percent Auto 8.1 % (25-40); Mean Corpuscular HGB Conc 33.4 % (30-36); Mean Corpuscular Volume 92.8 fL (80-100); Monocytes Absolute Auto 1100 /uL (0-900); Monocytes Percent Auto 8.2 % (3-14); Neutrophils Absolute Auto 10800 /uL (1500-7000); Neutrophils Percent Auto 82.8 % (50-75); Platelet Count 314 X10^3/uL (150-400); Red Blood Cell Count 3.64 X10^6/uL (4.5-5.9); Red Cell Distribution Width 13.6 % (11.6-14.8)
[2020-01-16] MEDS: LEVOTHYROXINE 50 MCG TABLET PO (06:23)
[2020-01-16] MEDS: LACTATED RINGERS 1,000 ML 100 ML IV (06:25)
[2020-01-16 06:30] LABS: BUN Creatinine Ratio 12.1 (6-22); Blood Urea Nitrogen 8 mg/dL (9-20); Calcium 8.4 mg/dL (8.4-10.2); Carbon Dioxide 29 mmol/L (22-32); Chloride 98 mmol/L (98-107); Estimated Glomerular Filt Rate > 60.0 mL/min (>60); Glucose 172 mg/dL (80-110); HEMOLYSIS 17 (0-50); Magnesium 1.7 mg/dL (1.6-2.3); Potassium 3.8 mmol/L (3.4-5.1); Sodium 133 mmol/L (137-145)
[2020-01-16] MEDS: PANTOPRAZOLE 40 MG VIAL IV (08:41)
[2020-01-16] MEDS: HEPARIN 5,000 UNIT/ML VIAL 5000 UNIT SUBCUT ×2 (08:42→21:03)
[2020-01-16] MEDS: CITALOPRAM 20 MG TABLET 40 MG PO (08:42)
[2020-01-16] MEDS: NICOTINE 21 MG PATCH TOP (08:42)
[2020-01-16] MEDS: CLOPIDOGREL 75 MG TABLET PO (08:42)
[2020-01-16] MEDS: buPROPion SR 150 MG TAB PO (08:42)
[2020-01-16] MEDS: lisinopriL 5 MG TABLET 2.5 MG PO (08:42)
[2020-01-16] MEDS: GABAPENTIN 300 MG CAPSULE 900 MG PO ×2 (08:42→21:02)
[2020-01-16] MEDS: METOPROLOL IR 25 MG TABLET PO ×2 (08:42→21:02)
[2020-01-16] MEDS: DOCUSATE 100 MG CAPSULE PO ×2 (08:43→21:02)
[2020-01-16] MEDS: TAMSULOSIN 0.4 MG CAPSULE PO (08:43)
[2020-01-16] MEDS: ISOSORBIDE MONONITRATE ER 30 MG TABLET 60 MG PO (08:43)
[2020-01-16] MEDS: INSULIN ASPART 100 UNIT/ML INSULN PEN SUBCUT ×4 (08:44→21:03)
[2020-01-16] MEDS: INSULIN GLARGINE 100 UNIT/ML 3ML PEN 25 UNIT SUBCUT (08:44)
--- NOTE | 2020-01-16 09:41 | PT.IPTN ---
Current Diagnoses Diverticulitis of large intestine with perforation and abscess without bleeding (01/11/20) Physical Therapy Treatment Note M2 PT-IP Current Condition Start: 01/12/20 15:20 Freq: NEEDED Status: Active Protocol: Document 01/12/20 14:10 AB (Rec: 01/12/20 15:33 AB [id number]) Physical Therapy Current Condition Current Condition Evaluation Date 01/12/20 Treatment Diagnosis diverticulitis with microperforation; difficulty in walking Onset Date 01/11/2020 Precautions Other Precautions falls M3 PT-IP Subjective Start: 01/12/20 15:20 Freq: NEEDED Status: Active Protocol: Document 01/16/20 09:05 LJ (Rec: 01/16/20 09:41 LJ [id number]) Subjective Physical Therapy Visit Type Type Treatment Note Visit Start Time 09:05 Visit Stop Time 09:29 Total Visit Minutes 24 Number of [employer]IA [employer] SALES Visits 1 Physical Therapy Visit Comments Patient Comments Pt reporting nausea. Willing to work with PT Therapy Pain Assessment Pain When Pain Assessed At Rest Pain Present Pain Present Pain Reported M4 PT-IP Mobility and Gait Start: 01/12/20 15:20 Freq: NEEDED Status: Active Protocol: Document 01/16/20 09:05 LJ (Rec: 01/16/20 09:41 LJ [id number]) PT-Bed Mobility Assessment Supine to Sit Supine to Sit Moderate Assistance,1 Person Assistance,Head of Bed Elevated,Bedrails Scooting Scooting to Edge of Bed Contact Guard Assistance PT-Transfer Assessment Sit to and From Stand Sit to and from Stand Minimal Assistance,1 Person Assistance,Use of Upper Extremities Equipment Transfer Assistive Device Gait Belt,Front Wheeled Walker Orthotic/Prosthetic Devices or Brace: No Transfers Transfer Destination Chair,Bedside Commode Transfer Technique ambulated using FWW Transfer Ability Level of Assist Minimal Assistance,1 Person Assistance,Use of Upper Extremities Comments Mobility Comments Pt required hand hold assist supine>sit with assist with Malagon and IV. SPO2 89% sitting at side of bed. Pt stated he needed to have a BM so transferred to BSC Angelina. Pt experiencing shakey legs and required to sit rather abruptly. Sat on BSC several minutes then stood CGA and use of UEs for ~2 min for pericare and brief change. Attempted to take steps forward but legs too weak and shakey so pt needed to transfer to chair. He took ~ 5 side and backward steps to chair, reached back and lowered himself into chair. He then stood again so that a pillow could be placed under his buttocks for comfort. Pt left in chair with all needs within reach. Gait Assessment Gait Gait Assistance Required: Minimum Assistance,1 Person Assist Distance (Feet) 3 Able to Maintain Weight Bearing Status Yes During Gait Assistive Devices Assistive Device Gait Belt,Front Wheeled Walker Orthotic/Prosthetic Devices or Brace: No Gait Deviations General Gait Pattern Ataxic,Decreased Stride Length ,Decreased Feet Clearance, Flexed Trunk,Step-to Gait Factors Limiting Gait Function Factors Limiting Gait Function Decreased Activity Tolerance, Decreased Sensation,Decreased Strength,Incoordination, Limited Range of Motion,Pain, Poor Balance,Poor Safety Awareness Comments Gait Comments Pt required Angelina fo ambulation and static standing due to weakness and unsteadiness in LEs. M5 PT-IP Objective Assessments Start: 01/12/20 15:20 Freq: NEEDED Status: Active Protocol: Document 01/12/20 14:10 AB (Rec: 01/12/20 15:33 AB [id number]) Orientation Orientation/Cognition Level of Alertness Confusional State Orientation Name Safety Awareness Decreased Safety Awareness Gross Range of Motion Lower Extremity ROM Assessment Within Functional Limits Strength Lower Extremity Strength Assessment Bilaterally Impaired Hip 3+/5 Knee 3+/5 Coordination Assessment Gross Coordination Gross Coordination Impaired M6 PT-IP Treatment Start: 01/12/20 15:20 Freq: NEEDED Status: Active Protocol: Document 01/16/20 09:05 REGINA (Rec: 01/16/20 09:41 [id number]) Physical Therapy Treatment Education Education Provided Safety Other Treatments Other Treatment Performed seated marching M7 PT-IP Assessment and Plan Start: 01/12/20 15:20 Freq: NEEDED Status: Active Protocol: Document 01/16/20 09:05 REGINA (Rec: 01/16/20 09:41 LJ [id number]) PT Summary Assessment and Plan Potential Rehabilitation Potential Fair Summary Impairments Pain,ROM,Strength,Balance, Coordination,Sensation,Tone, Cognition,Bed Mobility, Transfers,Gait,Activity Tolerance Progress Towards Goals Slow Progress due to Medical Issues,Slow Progress due to Activity Tolerance Assessment Summary see mobility section Goals Bed Mobility Goal Minimal Assistance Transfer Goal Minimal Assistance,Front Wheeled Walker Gait Goal Minimal Assistance,Front Wheel Walker Gait Distance 3 Days to Meet Goals 20 Frequency of Treatment Frequency Of Treatment Once a Day Treatment Plan Physical Therapy Treatment Plan Bed Mobility Training,Transfer Training,Gait Training, Therapeutic Exercise,Balance Retraining,Discharge Planning, Hot or Cold Pack,Neuromuscular Re-ed,Coordination Retraining Other Recommendations and Next Treatment sitting/standing balance, Focus transfers, ambulation Recommendations To Nursing Amount of Assist Needed 1 Person Assist Discharge Recommendations PT Discharge Recommendations SNF Rehab Equipment Needed for Home Before FWW if home; if SNF - defer to Discharge rehab setting Transportation Needs at Discharge Wheelchair/Cabulance
[2020-01-16] MEDS: BECLOMETHASONE 40 MCG INH 10.6 GM 1 PUFF INH ×2 (11:12→21:05)
[2020-01-16] MEDS: ALBUTEROL 2.5 MG/3 ML NEB (ADULT) INH (11:14)
--- NOTE | 2020-01-16 12:21 | OT.IP.TRT ---
Current Diagnoses Diverticulitis of large intestine with perforation and abscess without bleeding (01/11/20) Occupational Therapy Treatment Note M2 OT-IP Current Condition Start: 01/13/20 14:43 Freq: Status: Active Protocol: Document 01/13/20 13:56 [facility] (Rec: 01/13/20 16:29 [facility] [id number]) Occupational Therapy Current Condition Current Condition Evaluation Date 01/13/20 Treatment Diagnosis Diverticulitis with microperforation, decreased mobility Diagnosis Onset Date 01/11/20 Weight Bearing Status Weight Bearing Status Weight Bear as Tolerated M3 OT- IP Subjective and Pain Start: 01/13/20 14:43 Freq: Status: Active Protocol: Document 01/16/20 11:55 [facility] (Rec: 01/16/20 13:13 [facility] [id number]) OT- Subjective Occupational Therapy Visit Type Type Treatment Note Visit Start Time 11:55 Visit Stop Time 12:21 Total Visit Minutes 26 Occupational Therapy Visit Comments Patient Comments Pt after encouragement agreeable to get up and sponge off while sitting the recliner. Patient/Caregiver Goals To go home. OT Pain Assessment Pain When Pain Assessed At Rest Pain Present Pain Present Denied Pain M4 OT- IP ADL's Start: 01/13/20 14:43 Freq: Status: Active Protocol: Document 01/16/20 11:55 [facility] (Rec: 01/16/20 13:13 [facility] [id number]) OT ADL-Dressing Comments OT Dressing Comments not performed in this session. OT ADL-Bathing Bathing Type Bathing Type Sponge Bath General Evaluation Bathing Ability Minimal Assistance Areas Needing Assistance Wash/Dry Back Comments OT Bathing Comments Pt able to sit in the recliner and able to sponge off for his chest, arms, upper legs, and pericare needs while standing and having CGA for balance with use of FWW. Pt not wanting to wash his feet at this time. M5 OT- IP IADL's Start: 01/13/20 14:43 Freq: Status: Active Protocol: Document 01/13/20 13:56 [facility] (Rec: 01/13/20 16:29 [facility] [id number]) OT-Instrumental Activities of Daily Living Home Safety Awareness Ability to Problem Solve Emergency Able to Problem Solve Situations Home Safety Comments Pt has a Life Alert. Medication Management Medication Management Comments Pt states use of pill box. Money Management Money Management Caregiver Provides Assistance Money Management Comments Pt states son pays the bills. Meal Preparation Meal Preparation Caregiver Provides Assist Dermatologist Dermatologist Caregiver Provides Assist M6 OT- IP Functional Cognition Start: 01/13/20 14:43 Freq: Status: Active Protocol: Document 01/16/20 11:55 [facility] (Rec: 01/16/20 13:13 [facility] [id number]) Cognitive Factors Limiting Selfcare Function Cognitive Ability Level of Alertness Alert Patient Orientation Name,Age,Birthday,Month,Date, Year,Day of Week,Place, Situation Attention Span Ability Capable of Focused Attention, Capable of Sustained Attention Ability to Follow Commands Able to Follow One Step Commands Safety Awareness Underestimates Need for Assistance Cognitive Comments Cognitive Assessment Comments Pt needing cues for safety awareness for hand placement to push up from the bed and reach back to the recliner before sitting down. M7 OT- IP Mobility and Balance Start: 01/13/20 14:43 Freq: Status: Active Protocol: Document 01/16/20 11:55 [facility] (Rec: 01/16/20 13:13 [facility] [id number]) OT- Bed Mobility Assessment Rolling Type of Rolling Roll to Right Level of Assistance Standby Assistance,Bedrails Supine to Sit Supine to Sit Assist Minimal Assistance,Moderate Assistance Scooting Scooting to Edge of Bed Standby Assistance OT-Transfer Assessment Sit to and From Stand Sit to and from Stand Contact Guard Assistance Transfers Transfer Ability Contact Guard Assistance Technique Transfer Destination Bed,Chair Transfer Technique Stand Step Pivot Devices Transfer Assistive Devices Gait Belt,Front Wheeled Walker Comments Mobility Comments Pt mainly needing assist to help push up from side-lying to sitting upright. Today CGA to stand from bed and recliner. OT- Balance Assessment Sitting Balance and Reactions Static Sitting Balance Ability Good Dynamic Sitting Balance Ability Fair Standing Balance and Reactions Static Standing Balance Ability Poor Comments Other Balance Tests/Deviations/Treatment Pt able to stand with CGA : assist while doing his pericare needs. Suggested at home since he does not want family members to assist with pericare needs is to supervisor edging front of the sink and have use the the counter to help steady himself while standing. In addition family member can assist for his balance while he is doing his pericare needs. M8 OT- IP Objective Assessments Start: 01/13/20 14:43 Freq: Status: Active Protocol: Document 01/13/20 13:56 [facility] (Rec: 01/13/20 16:29 [facility] [id number]) OT Strength Upper Extremity Strength Assessment Within Functional Limits OT-Muscle Tone Assessment Muscle Tone WNL Yes M9 OT- IP Assessment and Plan Start: 01/13/20 14:43 Freq: Status: Active Protocol: Document 01/16/20 11:55 [facility] (Rec: 01/16/20 13:13 [facility] [id number]) OT Summary Assessment and Plan Potential Rehabilitation Potential Good Analytic Complexity at Evaluation Low Summary OT Impairments Pain,Balance,Functional Mobility,Dressing,Toileting, Toilet Transfers,Activity Tolerance Progress Towards Goals Slow Progress due to Medical Issues,Slow Progress due to Activity Tolerance Assessment Summary Pt able to tolerate sponge bath today but states would try to shower tomorrow. Pt will continue to benefit from OT to maximize his needs for ADL and functional mobility needs. Goals Grooming Goal Independent Dressing Goal Moderate Assistance Toileting Goal Independent Toilet Transfer Goal Standby Assistance Patient/Caregiver Education Goal Caregiver Independent Assisting Patient Days to Meet Goals 7 Frequency of Treatment Frequency Of Treatment Once a Day Treatment Plan OT Treatment Plan ADL Training,Functional Mobility,Patient/Family Education,Discharge Planning Other Treatment Recommendations and Next shower Treatment Focus Discharge Recommendations OT Discharge Recommendations Home with Assistance,Home Health Transportation Needs at Discharge Private Vehicle
--- NOTE | 2020-01-16 12:38 | P.PN_ITS ---
Subjective Subjective Date Patient Seen: 01/16/20 Time Patient Seen: 08:00 Interval history: Patient is a gentleman under treatment for diverticulitis. He had recent cardiac stents and is on Plavix. He states his pain is improving and his abdominal distention, while still present is much improved. Exam Vital Signs (past 8 hours): - 01/16/20 05:45 01/16/20 07:46 01/16/20 11:14 Temperature 97.6 F 96.6 F L Pulse Rate 76 79 69 Respiratory Rate 20 18 20 Blood Pressure 139/78 164/93 H Pulse Oximetry 97 96 93 Oxygen Delivery Method Room Air Oxygen Flow Rate 2 Narrative Exam Narrative: Operative no apparent distress. Lungs wheezing on the right. Fairly good air movement though bilaterally heart regular rate and rhythm I do not appreciate a murmur or gallop. His abdomen is distended but soft. Localized tenderness left lower quadrant. Objective Labs Result Diagrams: 01/16/20 06:00 01/16/20 06:00 Labs: Laboratory Results - last 24 hr 01/16/20 01/16/20 06:00 06:00 WBC 13.0 H RBC 3.64 L Hgb 11.3 L Hct 33.8 L MCV 92.8 MCH 31.0 MCHC 33.4 RDW 13.6 Plt Count 314 Neut % (Auto) 82.8 H Lymph % (Auto) 8.1 L [place] % (Auto) 8.2 Eos % (Auto) 0.8 L Baso % (Auto) 0.1 Neut # (Auto) 29201 H Lymph # (Auto) 1100 [place] # (Auto) 1100 H Eos # (Auto) 100 Baso # (Auto) 0 Sodium 133 L Potassium 3.8 Chloride 98 Carbon Dioxide 29 BUN 8 L Creatinine 0.66 Estimated GFR > 60.0 BUN/Creatinine Ratio 12.1 Glucose 172 H Calcium 8.4 Magnesium 1.7 Assessment & Plan Assessment & Plan narrative: Acute diverticulitis. Will continue broad-spectrum antibiotics as ordered. Follow labs. Spoke with Dr. Guadalupe about his diabetes. We will continue to follow.
--- NOTE | 2020-01-16 16:32 | P.PN_ITS ---
Subjective Subjective Date Patient Seen: 01/16/20 Interval history: The patient is a 64-year-old male admitted to the hospital for a micro perforation due to diverticulitis. The patient has increasing abdominal distension today. He is on a clear liquid diet. He denies any diarrhea. [place] the patient had loose stools after several stool softeners. He denies any shortness of breath, he denies any abdominal pain, overall he feels like he is making progress. Exam Vital Signs (past 8 hours): - 01/16/20 11:14 01/16/20 11:15 Temperature 97.3 F L Pulse Rate 69 75 Respiratory Rate 20 16 Blood Pressure 130/74 Pulse Oximetry 93 95 Oxygen Delivery Method Room Air Oxygen Flow Rate 1 Narrative Exam Narrative: Pleasant gentleman in no obvious distress Lungs: Decreased breath sounds with diffuse wheezing bilaterally, scattered rhonchi as well Cardiac exam: Regular rate and rhythm normal S1-S2 with a 2/6 systolic ejection murmur Abdomen: Distended, soft, no rebound tenderness, no board-like rigidity Extremities: No edema Objective Labs Result Diagrams: 01/16/20 06:00 01/16/20 06:00 Labs: Laboratory Results - last 24 hr 01/16/20 01/16/20 06:00 06:00 WBC 13.0 H RBC 3.64 L Hgb 11.3 L Hct 33.8 L MCV 92.8 MCH 31.0 MCHC 33.4 RDW 13.6 Plt Count 314 Neut % (Auto) 82.8 H Lymph % (Auto) 8.1 L [place] % (Auto) 8.2 Eos % (Auto) 0.8 L Baso % (Auto) 0.1 Neut # (Auto) 37312 H Lymph # (Auto) 1100 [place] # (Auto) 1100 H Eos # (Auto) 100 Baso # (Auto) 0 Sodium 133 L Potassium 3.8 Chloride 98 Carbon Dioxide 29 BUN 8 L Creatinine 0.66 Estimated GFR > 60.0 BUN/Creatinine Ratio 12.1 Glucose 172 H Calcium 8.4 Magnesium 1.7 Assessment & Plan Assessment & Plan narrative: Assessment & Plan narrative: Mr. Rashad Randall is a 64-year-old male with a history significant for coronary artery disease with MT status post coronary stents, COPD, hypertension, hyperlipidemia, poorly controlled diabetes type 2, on insulin, with diabetic neuropathy, chronic kidney disease stage 2, hypothyroidism, GERD and recurrent TIAs who presented to the emergency room for abdominal pain, he is admitted for sigmoid diverticulitis with micro perforation. Surgery is following and added Flagyl due to a rising white blood cell count which has helped. Trying to avoid surgical intervention given patient is high medical risk given his recent stenting. 1. Sigmoid diverticulitis with microperforation, present on admission, active. -Patient with onset of acute lower abdominal pain with recurrent episodes of nausea vomiting and diarrhea. His symptoms are improving somewhat with medical management. -CT exam showed acute sigmoid diverticulitis with several adjacent tiny gas bubbles compatible with microperforation, adjacent mesenteric inflammation with free fluid. -white count is 11.4 on admission, slightly increased to 15 but recently downtrending slowly, now 12.5. -continue antibiotics -will follow white given abdominal distention 2. COPD, present on admission, active -patient chronic cough secondary to COPD, he denies shortness of breath arrest but reports exertional dyspnea. -respiratory therapy to consult, eval and treat -DuoNebs every 6 hours as needed. -albuterol nebulizer every 2 hours as needed -supplemental O2 as needed. 3. Alcohol abuse, chronic, present on admission. Stable. -with patient states that he is trying to stop drinking and reports drinking 2-3 drinks per month. -no evidence of tremors or withdrawal symptoms, patient denies experiencing DTs or withdrawal seizures. -CIWA protocol discontinued. 4. Coronary artery disease status post stenting, chronic, present on admission, stable. -the patient with a history of MT in 2006 with stent placement with additional stenting in 2010. -the patient was discharged from [facility] on 12/16/2019 after having stent placement (Circumflex A based on review of [facility] films). -the patient presently has no evidence of edema or pulmonary congestion. Continue to hold lasix today. -Continue atorvastatin 40 mg daily at bedtime, Imdur 60 mg daily, lisinopril 2.5 mg daily, and metoprolol tartrate 25 mg twice daily. -the patient is status post stenting last month will continue clopidogrel 75 mg daily. -discontinue telemetry 5. Hypertension, chronic, present on admission. Stable. -Continue home regimen of isosorbide 60 mg daily, lisinopril 2.5 mg daily, and metoprolol tartrate 25 mg twice daily. 6. Hyperlipidemia, chronic, present on admission. Stable. -Continue home regimen atorvastatin 40 mg daily at bedtime. 7. Diabetes mellitus type 2, insulin using, present on admission. Stable. -hemoglobin A1c was 8.3 on 12/21/2019 improved from 10.5 in September 2019. -patient with bilateral lower extremity neuropathy in preserved renal function. -continue basal bolus insulin 8. Chronic kidney disease stage 2, present on admission. Stable. -patient with previous history of chronic kidney disease stage 2 not in evidence on admission today. -admission labs showed BUN of 13 and creatinine of 0.87. EGFR is calculated gre ater than 60, calculated creatinine clearance is 107.16. -Continue to monitor creatinine periodically. 9. Hypothyroidism, chronic, present on admission. Stable. -Continue levothyroxine 50 mcg daily. 10. Depression, chronic, present on admission. Stable. -Continue citalopram 40 mg daily and bupropion 150 mg daily. -continue bupropion 150 mg daily. 11. Tobacco dependence, chronic, present on admission. Stable. -1/2 pack per day smoking history for 45 years. -Ordered nicotine patch 21 mg daily as needed for nicotine withdrawal. 12. Obstructive sleep apnea not on CPAP, chronic, present on admission. Stable. -Encouraged compliance with CPAP and discussed effects of untreated KATI. -Ordered CPAP per RT protocol. 13. Recurrent transitory ischemic attacks, currently asymptomatic, stable. -patient reports having recurrent symptoms most recent event was during hospitalization [place] during hypertensive episode with expressive aphasia, has not shown symptoms while admitted. 14. acute urinary obstruction, active -will discontinue Malagon catheter -will monitor urine output Code: full
[2020-01-16] MEDS: MELATONIN 3 MG TABLET 6 MG PO (21:02)
[2020-01-16] MEDS: ATORVASTATIN 20 MG TABLET 40 MG PO (21:02)
[2020-01-16] MEDS: SODIUM CHLORIDE 0.9% FLUSH 10 ML IV (23:46)
[2020-01-16] MEDS: ALBUTEROL/IPRATROPIUM 3 ML AMPUL INH (23:49)
[2020-01-17] VITALS (10 sets, daily range): BP systolic 113–178; BP diastolic 58–94; PULSE 79–95; RESP 14–24; TEMP 36.4–37.3; O2SAT 86–94
[2020-01-17] MEDS: metroNIDAZOLE 500 MG/100 ML PIGGYBACK 100 MG IV ×4 (00:27→19:45)
[2020-01-17 05:14] LABS: Add Manual Diff / Slide Review NO; Basophils Absolute Auto 0 /uL (0-100); Basophils Percent Auto 0.2 % (0-2); Eosinophils Absolute Auto 100 /uL (0-450); Eosinophils Percent Auto 0.7 % (2-4); Hematocrit 32.6 % (41-53); Lymphocytes Absolute Auto 1100 /uL (1100-4500); Lymphocytes Percent Auto 7.5 % (25-40); Mean Corpuscular HGB Conc 33.8 % (30-36); Mean Corpuscular Hemoglobin 31.1 PG (26-34); Mean Corpuscular Volume 91.9 fL (80-100); Monocytes Absolute Auto 1100 /uL (0-900); Monocytes Percent Auto 7.6 % (3-14); Neutrophils Absolute Auto 11700 /uL (1500-7000); Platelet Count 346 X10^3/uL (150-400); Red Blood Cell Count 3.55 X10^6/uL (4.5-5.9); Red Cell Distribution Width 13.5 % (11.6-14.8)
[2020-01-17 05:22] LABS: Blood Urea Nitrogen 6 mg/dL (9-20); Calcium 8.3 mg/dL (8.4-10.2); Carbon Dioxide 31 mmol/L (22-32); Chloride 96 mmol/L (98-107); Estimated Glomerular Filt Rate > 60.0 mL/min (>60); Glucose 243 mg/dL (80-110); HEMOLYSIS < 15 (0-50); Magnesium 1.6 mg/dL (1.6-2.3); Potassium 3.9 mmol/L (3.4-5.1); Sodium 133 mmol/L (137-145)
[2020-01-17] MEDS: LEVOTHYROXINE 50 MCG TABLET PO (06:04)
[2020-01-17] MEDS: PIPERACILLIN-TAZO 4.5 GM/100 ML FROZ.PIGGY IV ×3 (06:04→19:04)
[2020-01-17] MEDS: SODIUM CHLORIDE 0.9% FLUSH 10 ML IV ×3 (06:05→22:39)
--- NOTE | 2020-01-17 06:14 | PC.NURSE ---
Patient seen and assessed at 0035. Is alert and oriented. Was complaining of feeling SOB and O2 sat was 86% so placed on oxygen at 2L/min per NC and now sat is 94%; on continuous oximetry. RT also contacted and provided neb Rx. Breath sounds are diminished throughout with crackles at bases. Coughing up clear sputum. HRR. Has elevated BP at 144/90 and this morning at 152/92. Denies nausea. BT hyperactive and abdomen is distended with tenderness in LLQ. Moves self in bed. Gets up to bathroom with walker and 1 assist. Refusing to wear SCD's at night as they keep me awake. Chronic neuropathy in bilateral feet and hands. Abrasions noted on right anterior LE and has bruising on abdomen. Reports of falling in past 3 months so fall risk score is high and bed alarm is activated. States abdominal pain is 7/10 but refusing pain meds as states they are making him bound up.
[2020-01-17] MEDS: ALBUTEROL/IPRATROPIUM 3 ML AMPUL INH (08:31)
[2020-01-17] MEDS: BECLOMETHASONE 40 MCG INH 10.6 GM 1 PUFF INH ×2 (08:32→20:13)
[2020-01-17] MEDS: buPROPion SR 150 MG TAB PO (09:03)
[2020-01-17] MEDS: ISOSORBIDE MONONITRATE ER 30 MG TABLET 60 MG PO (09:04)
[2020-01-17] MEDS: CLOPIDOGREL 75 MG TABLET PO (09:04)
[2020-01-17] MEDS: lisinopriL 5 MG TABLET 2.5 MG PO (09:04)
[2020-01-17] MEDS: METOPROLOL IR 25 MG TABLET PO ×2 (09:04→22:33)
[2020-01-17] MEDS: GABAPENTIN 300 MG CAPSULE 900 MG PO ×2 (09:04→20:14)
[2020-01-17] MEDS: CITALOPRAM 20 MG TABLET 40 MG PO (09:04)
[2020-01-17] MEDS: HEPARIN 5,000 UNIT/ML VIAL 5000 UNIT SUBCUT ×2 (09:04→20:14)
[2020-01-17] MEDS: NICOTINE 21 MG PATCH TOP (09:05)
[2020-01-17] MEDS: TAMSULOSIN 0.4 MG CAPSULE PO (09:05)
[2020-01-17] MEDS: PANTOPRAZOLE 40 MG VIAL IV (09:05)
[2020-01-17] MEDS: INSULIN GLARGINE 100 UNIT/ML 3ML PEN 25 UNIT SUBCUT (09:10)
[2020-01-17] MEDS: INSULIN ASPART 100 UNIT/ML INSULN PEN SUBCUT ×2 (09:11→12:27)
--- NOTE | 2020-01-17 11:04 | OT.IPNOTE ---
Pt states very tired and now complaining of shortness of breath and requested not to do OT today.
[2020-01-17] MEDS: FUROSEMIDE 40 MG/4 ML VIAL IV (11:07)
[2020-01-17] MEDS: INSULIN GLARGINE 100 UNIT/ML 3ML PEN 20 UNIT SUBCUT (11:07)
--- NOTE | 2020-01-17 11:17 | P.PN_ITS ---
Subjective Subjective Date Patient Seen: 01/17/20 Time Patient Seen: 11:17 Interval history: Patient is still having some pain. He feels better than yesterday however. He had a moderately-sized soft bowel movement according to nursing. Exam Vital Signs (past 8 hours): - 01/17/20 03:25 01/17/20 07:30 01/17/20 07:40 Temperature 97.7 F Pulse Rate 80 Respiratory Rate 14 24 Blood Pressure 159/92 H 178/94 H Pulse Oximetry 94 86 L 92 01/17/20 08:00 01/17/20 08:32 01/17/20 08:56 Temperature 99.2 F Pulse Rate 91 H Respiratory Rate 20 Blood Pressure Pulse Oximetry 91 91 Oxygen Delivery Method Room Air Oxygen Flow Rate 1 Narrative Exam Narrative: Lungs bilateral wheezing. Heart regular rate and rhythm without murmur gallop. Abdomen is distended/protuberant soft. Less tender today than yesterday the still with some left lower quadrant tenderness. No guarding. Objective Labs Result Diagrams: 01/17/20 04:40 01/17/20 04:40 Labs: Laboratory Results - last 24 hr 01/17/20 01/17/20 04:40 04:40 WBC 14.0 H RBC 3.55 L Hgb 11.0 L Hct 32.6 L MCV 91.9 MCH 31.1 MCHC 33.8 RDW 13.5 Plt Count 346 Neut % (Auto) 84.0 H Lymph % (Auto) 7.5 L [place] % (Auto) 7.6 Eos % (Auto) 0.7 L Baso % (Auto) 0.2 Neut # (Auto) 19426 H Lymph # (Auto) 1100 [place] # (Auto) 1100 H Eos # (Auto) 100 Baso # (Auto) 0 Sodium 133 L Potassium 3.9 Chloride 96 L Carbon Dioxide 31 BUN 6 L Creatinine 0.67 Estimated GFR > 60.0 BUN/Creatinine Ratio 9.0 Glucose 243 H Calcium 8.3 L Magnesium 1.6 Assessment & Plan Assessment & Plan narrative: Slowly improving. Would continue his broad- spectrum IV antibiotics. May require C diff testing depending on whether is stools improve or not. It would not be surprised have diarrhea just from the antibiotics he has been receiving. Ambulate. 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 This may be contributing to his wheezing along with his underlying lung issues.
--- NOTE | 2020-01-17 11:17 | PM.PN.1 ---
Subjective Subjective Date Patient Seen: 01/17/20 Interval history: The patient is a 64-year-old male admitted to the hospital for a micro perforation due to diverticulitis. The patient has increasing abdominal distension although pain is about the same. He is not taking much of soft diet. He denies any diarrhea. He has been short of breath with a slight cough and appears volume overloaded. Exam Vital Signs (past 8 hours): - 01/17/20 03:25 01/17/20 07:30 01/17/20 07:40 Temperature 97.7 F Pulse Rate 80 Respiratory Rate 14 24 Blood Pressure 159/92 H 178/94 H Pulse Oximetry 94 86 L 92 01/17/20 08:00 01/17/20 08:32 01/17/20 08:56 Temperature 99.2 F Pulse Rate 91 H Respiratory Rate 20 Blood Pressure Pulse Oximetry 91 91 Oxygen Delivery Method Room Air Oxygen Flow Rate 1 Narrative Exam Narrative: General: Alert male who appears mildly dyspneic at rest Lungs: Bibasilar crackles Heart: Regular rhythm Abdomen: Distended, bowel sounds present, tender and guarding in left lower quadrant Extremities: No edema Neurological: Alert and oriented Objective Labs Result Diagrams: 01/17/20 04:40 01/17/20 04:40 Labs: Laboratory Results - last 24 hr 01/17/20 01/17/20 04:40 04:40 WBC 14.0 H RBC 3.55 L Hgb 11.0 L Hct 32.6 L MCV 91.9 MCH 31.1 MCHC 33.8 RDW 13.5 Plt Count 346 Neut % (Auto) 84.0 H Lymph % (Auto) 7.5 L [place] % (Auto) 7.6 Eos % (Auto) 0.7 L Baso % (Auto) 0.2 Neut # (Auto) 86981 H Lymph # (Auto) 1100 [place] # (Auto) 1100 H Eos # (Auto) 100 Baso # (Auto) 0 Sodium 133 L Potassium 3.9 Chloride 96 L Carbon Dioxide 31 BUN 6 L Creatinine 0.67 Estimated GFR > 60.0 BUN/Creatinine Ratio 9.0 Glucose 243 H Calcium 8.3 L Magnesium 1.6 Assessment & Plan Assessment & Plan narrative: Mr. Rashad Randall is a 64-year-old male with a history significant for coronary artery disease with VT status post coronary stents, COPD, hypertension, hyperlipidemia, poorly controlled diabetes type 2, on insulin, with diabetic neuropathy, chronic kidney disease stage 2, hypothyroidism, GERD and recurrent TIAs who presented to the emergency room for abdominal pain, he is admitted for sigmoid diverticulitis with micro perforation. Surgery is following and added Flagyl due to a rising white blood cell count which has helped. Trying to avoid surgical intervention given patient is high medical risk given his recent stenting. 1. Sigmoid diverticulitis with microperforation, present on admission, active. -Patient with onset of acute lower abdominal pain with recurrent episodes of nausea vomiting and diarrhea. His symptoms are improving somewhat with medical management though abdomen appears distended. -CT exam showed acute sigmoid diverticulitis with several adjacent tiny gas bubbles compatible with microperforation, adjacent mesenteric inflammation with free fluid. -WBC slightly higher over the past couple of days, patient remains afebrile -continue Zosyn and Flagyl -labs in a.m. -patient with increase in weight and ahead about 8 L since admission, Lasix 40 mg IV x1 for volume overload -appreciate surgical consult and will follow their recommendations 2. COPD, present on admission, active -patient chronic cough secondary to COPD -DuoNebs every 6 hours as needed. -albuterol nebulizer every 2 hours as needed -supplemental O2 as needed. 3. Alcohol abuse, chronic, present on admission. Stable. -patient states that he is trying to stop drinking and reports drinking 2-3 drinks per month. -no evidence of tremors or withdrawal symptoms, patient denies experiencing DTs or withdrawal seizures. 4. Coronary artery disease status post stenting, chronic, present on admission, stable. -the patient with a history of VT in 2006 with stent placement with additional stenting in 2010 and December 2019. -the patient was discharged from [facility] on 12/16/2019 after having stent placement (Circumflex A based on review of [facility] films). -Continue atorvastatin 40 mg daily at bedtime, Imdur 60 mg daily, lisinopril 2.5 mg daily, and metoprolol tartrate 25 mg twice daily. -the patient is status post stenting last month will continue clopidogrel 75 mg daily. 5. Diabetes mellitus type 2, insulin using, present on admission. Stable. -hemoglobin A1c was 8.3 on 12/21/2019 improved from 10.5 in September 2019. -patient with bilateral lower extremity neuropathy in preserved renal function. -patient with glucose remaining above 200, Lantus increased to 40 units b.i.d., NovoLog 10 units with meals plus high-dose sliding scale; at home patient uses Lantus 60-80 units b.i.d. and NovoLog 20-30 units with meals, he was recently switched to a new long-acting insulin but has not picked up Rx 6. Hypothyroidism, chronic, present on admission. Stable. -Continue levothyroxine 50 mcg daily. 7. Depression, chronic, present on admission. Stable. -Continue citalopram 40 mg daily and bupropion 150 mg daily. 8. Tobacco dependence, chronic, present on admission. Stable. -1/2 pack per day smoking history for 45 years. -Ordered nicotine patch 21 mg daily as needed for nicotine withdrawal. 9. Obstructive sleep apnea not on CPAP, chronic, present on admission. Stable. -Encouraged compliance with CPAP and discussed effects of untreated KATI. -Ordered CPAP per RT protocol. 10. Recurrent transitory ischemic attacks, currently asymptomatic, stable. -patient reports having recurrent symptoms most recent event was during hospitalization [place] during hypertensive episode with expressive aphasia, has not shown symptoms while admitted. 11. acute urinary obstruction, resolved -Malagon catheter was discontinued -will monitor urine output Due to prophylaxis: Heparin 5000 units subcu b.i.d.
[2020-01-17] MEDS: INSULIN ASPART 100 UNIT/ML INSULN PEN 10 UNIT SUBCUT ×2 (12:26→19:02)
--- NOTE | 2020-01-17 14:36 | PT.IPTN ---
Current Diagnoses Diverticulitis of large intestine with perforation and abscess without bleeding (01/11/20) Physical Therapy Treatment Note M2 PT-IP Current Condition Start: 01/12/20 15:20 Freq: NEEDED Status: Active Protocol: Document 01/12/20 14:10 AB (Rec: 01/12/20 15:33 AB [id number]) Physical Therapy Current Condition Current Condition Evaluation Date 01/12/20 Treatment Diagnosis diverticulitis with microperforation; difficulty in walking Onset Date 01/11/2020 Precautions Other Precautions falls M3 PT-IP Subjective Start: 01/12/20 15:20 Freq: NEEDED Status: Active Protocol: Document 01/17/20 14:36 CLB (Rec: 01/17/20 15:24 CLB [id number]) Subjective Physical Therapy Visit Type Type Treatment Note Visit Start Time 14:36 Visit Stop Time 14:55 Total Visit Minutes 19 Number of CREATIVE TECHNOLOGIST Visits 2 Physical Therapy Visit Comments Patient Comments Pt needing to use urinal and willing to ambulate and sit in chair. Therapy Pain Assessment Pain When Pain Assessed At Rest Pain Present Pain Present Pain Reported M4 PT-IP Mobility and Gait Start: 01/12/20 15:20 Freq: NEEDED Status: Active Protocol: Document 01/17/20 14:36 CLB (Rec: 01/17/20 15:24 CLB [id number]) PT-Bed Mobility Assessment Supine to Sit Supine to Sit Moderate Assistance,1 Person Assistance,Head of Bed Elevated,Bedrails Scooting Scooting to Edge of Bed Contact Guard Assistance PT-Transfer Assessment Sit to and From Stand Sit to and from Stand Minimal Assistance,1 Person Assistance,Use of Upper Extremities Equipment Transfer Assistive Device Gait Belt,Front Wheeled Walker Orthotic/Prosthetic Devices or Brace: No Transfers Transfer Destination Chair Transfer Technique ambulated using FWW Transfer Ability Level of Assist Minimal Assistance,1 Person Assistance,Use of Upper Extremities Comments Mobility Comments Pt required Mod A to get to EOB then Min A for sit<>stand with cues for proper hand placement. Pt used urinal in standing requiring Min A for standing balance while RN assisted with urinal. Pt then ambulated ~20ft in room with Min A and assist with O2 and IV lines. Pt then sat in chair . Pt left in chair with all needs within reach and chair alarm on. Gait Assessment Gait Gait Assistance Required: Minimum Assistance,1 Person Assist Distance (Feet) 20 Able to Maintain Weight Bearing Status Yes During Gait Assistive Devices Assistive Device Gait Belt,Front Wheeled Walker Orthotic/Prosthetic Devices or Brace: No Gait Deviations General Gait Pattern Ataxic,Decreased Stride Length ,Decreased Feet Clearance, Flexed Trunk,Step-to Gait Factors Limiting Gait Function Factors Limiting Gait Function Decreased Activity Tolerance, Decreased Sensation,Decreased Strength,Incoordination, Limited Range of Motion,Pain, Poor Balance,Poor Safety Awareness Comments Gait Comments Pt continues to require Min A for ambulate and assist with lines. M5 PT-IP Objective Assessments Start: 01/12/20 15:20 Freq: NEEDED Status: Active Protocol: Document 01/12/20 14:10 AB (Rec: 01/12/20 15:33 AB [id number]) Orientation Orientation/Cognition Level of Alertness Confusional State Orientation Name Safety Awareness Decreased Safety Awareness Gross Range of Motion Lower Extremity ROM Assessment Within Functional Limits Strength Lower Extremity Strength Assessment Bilaterally Impaired Hip 3+/5 Knee 3+/5 Coordination Assessment Gross Coordination Gross Coordination Impaired M6 PT-IP Treatment Start: 01/12/20 15:20 Freq: NEEDED Status: Active Protocol: Document 01/16/20 09:05 LJ (Rec: 01/16/20 09:41 LJ [id number]) Physical Therapy Treatment Education Education Provided Safety Other Treatments Other Treatment Performed seated marching M7 PT-IP Assessment and Plan Start: 01/12/20 15:20 Freq: NEEDED Status: Active Protocol: Document 01/17/20 14:36 CLB (Rec: 01/17/20 15:24 CLB [id number]) PT Summary Assessment and Plan Potential Rehabilitation Potential Fair Summary Impairments Pain,ROM,Strength,Balance, Coordination,Sensation,Tone, Cognition,Bed Mobility, Transfers,Gait,Activity Tolerance Progress Towards Goals Slow Progress due to Medical Issues,Slow Progress due to Activity Tolerance Assessment Summary Pt continues to require Mod A for bed mobility and Min A for sit<>stand and ambulation due to unsteadiness. Pt would benefit from SNF rehab to improve balance, strength for overall function and safety. Goals Bed Mobility Goal Minimal Assistance Transfer Goal Minimal Assistance,Front Wheeled Walker Gait Goal Minimal Assistance,Front Wheel Walker Gait Distance 3 Days to Meet Goals 20 Frequency of Treatment Frequency Of Treatment Once a Day Treatment Plan Physical Therapy Treatment Plan Bed Mobility Training,Transfer Training,Gait Training, Therapeutic Exercise,Balance Retraining,Discharge Planning, Hot or Cold Pack,Neuromuscular Re-ed,Coordination Retraining Other Recommendations and Next Treatment sitting/standing balance, Focus transfers, ambulation Recommendations To Nursing Amount of Assist Needed 1 Person Assist Discharge Recommendations PT Discharge Recommendations SNF Rehab Equipment Needed for Home Before FWW if home; if SNF - defer to Discharge rehab setting Transportation Needs at Discharge Wheelchair/Cabulance
--- NOTE | 2020-01-17 18:51 | PC.NURSE ---
Addendum entered by Letitia Rivero R.N. 01/17/20 22:55: Called dietary to add chocolate Glucernas to his trays since he asked for a chocolate ensure but there were only vanilla Glucernas. pt acting a little confused and needed some re-orientation when he told me in was the morning, then asked me who his nurse is. I oriented him to the time (1919) and that I have been his nurse for the last couple hours. He agreed and apologized. pt requested bedtime Lantus dose in his LL abdomen even though it is very distended. Room air currently but now 88-89% with audible wheezes. The patient is trying to keep the pulse ox on and reporting that he feels like he is getting enough oxygen. Original Note: GINA Swapna. pt AO and receptive to care. Reporting tenderness with touch to LLQ of abdomen. 1L NC at start of assignment (I assumed responsibility at 1720) and titrated to room air during physical assessment. 94% with 1L NC, 89-90% on room air. Wheezes auscultated to posterior lung bases, diminished sounds to all other regions. pt states he feels like he is getting enough oxygen and denying SOB while laying in bed.Right wrist PIV infusing intermittent ABX. CBG 95 at 1630. pt states he doesn't have an appetite and only tolerated a couple bites of mashed potatoes at dinner. No nausea, just not wanting to eat. Scattered bruising to abdomen from anticoag injections and scattered abrasions to extremities (as noted in physical assessment).
[2020-01-17] MEDS: ATORVASTATIN 20 MG TABLET 40 MG PO (20:14)
[2020-01-17] MEDS: DOCUSATE 100 MG CAPSULE PO (20:14)
[2020-01-17] MEDS: INSULIN GLARGINE 100 UNIT/ML 3ML PEN 40 UNIT SUBCUT (22:33)
[2020-01-17] MEDS: MELATONIN 3 MG TABLET 6 MG PO (22:36)
[2020-01-18] VITALS (9 sets, daily range): BP systolic 127–181; BP diastolic 69–95; PULSE 70–83; RESP 14–22; TEMP 36.5–37.2; O2SAT 85–96
[2020-01-18] MEDS: SODIUM CHLORIDE 0.9% FLUSH 10 ML IV ×3 (00:24→20:37)
[2020-01-18] MEDS: PIPERACILLIN-TAZO 4.5 GM/100 ML FROZ.PIGGY IV ×2 (00:25→06:05)
[2020-01-18] MEDS: metroNIDAZOLE 500 MG/100 ML PIGGYBACK 100 MG IV (03:44)
[2020-01-18 05:22] LABS: BUN Creatinine Ratio 6.9 (6-22); Blood Urea Nitrogen 5 mg/dL (9-20); Calcium 8.6 mg/dL (8.4-10.2); Carbon Dioxide 34 mmol/L (22-32); Chloride 97 mmol/L (98-107); Estimated Glomerular Filt Rate > 60.0 mL/min (>60); Glucose 130 mg/dL (80-110); HEMOLYSIS < 15 (0-50); Potassium 3.6 mmol/L (3.4-5.1); Sodium 136 mmol/L (137-145)
[2020-01-18 05:24] LABS: Add Manual Diff / Slide Review NO; Basophils Absolute Auto 0 /uL (0-100); Basophils Percent Auto 0.1 % (0-2); Eosinophils Absolute Auto 100 /uL (0-450); Hemoglobin 11.5 g/dL (13.5-17.5); Lymphocytes Absolute Auto 1100 /uL (1100-4500); Lymphocytes Percent Auto 8.1 % (25-40); Mean Corpuscular HGB Conc 33.9 % (30-36); Mean Corpuscular Volume 91.4 fL (80-100); Monocytes Absolute Auto 1100 /uL (0-900); Monocytes Percent Auto 7.7 % (3-14); Neutrophils Absolute Auto 11400 /uL (1500-7000); Neutrophils Percent Auto 83.1 % (50-75); Platelet Count 408 X10^3/uL (150-400); Red Blood Cell Count 3.72 X10^6/uL (4.5-5.9); Red Cell Distribution Width 13.6 % (11.6-14.8); White Blood Cell Count 13.7 X10^3/uL (4.5-11.0)
[2020-01-18] MEDS: LEVOTHYROXINE 50 MCG TABLET PO (06:05)
[2020-01-18] MEDS: INSULIN ASPART 100 UNIT/ML INSULN PEN 10 UNIT SUBCUT ×3 (08:05→16:45)
[2020-01-18] MEDS: buPROPion SR 150 MG TAB PO (08:10)
[2020-01-18] MEDS: CLOPIDOGREL 75 MG TABLET PO (08:10)
[2020-01-18] MEDS: DOCUSATE 100 MG CAPSULE PO ×2 (08:11→20:35)
[2020-01-18] MEDS: HEPARIN 5,000 UNIT/ML VIAL 5000 UNIT SUBCUT ×2 (08:11→20:34)
[2020-01-18] MEDS: INSULIN GLARGINE 100 UNIT/ML 3ML PEN 40 UNIT SUBCUT ×2 (08:12→20:38)
[2020-01-18] MEDS: lisinopriL 5 MG TABLET 2.5 MG PO (08:12)
[2020-01-18] MEDS: ISOSORBIDE MONONITRATE ER 30 MG TABLET 60 MG PO (08:12)
[2020-01-18] MEDS: polyethylene glycoL 3350 17 GM POWD.PACK PO (08:14)
[2020-01-18] MEDS: NICOTINE 21 MG PATCH TOP (08:14)
[2020-01-18] MEDS: METOPROLOL IR 25 MG TABLET PO ×2 (08:14→20:35)
[2020-01-18] MEDS: TAMSULOSIN 0.4 MG CAPSULE PO (08:14)
[2020-01-18] MEDS: PANTOPRAZOLE 40 MG VIAL IV (08:14)
[2020-01-18] MEDS: GABAPENTIN 300 MG CAPSULE 900 MG PO ×2 (08:15→20:34)
[2020-01-18] MEDS: CITALOPRAM 20 MG TABLET 40 MG PO (08:15)
[2020-01-18] MEDS: ALBUTEROL/IPRATROPIUM 3 ML AMPUL INH (08:34)
[2020-01-18] MEDS: BECLOMETHASONE 40 MCG INH 10.6 GM 1 PUFF INH (08:34)
--- NOTE | 2020-01-18 10:28 | PT.IPTN ---
Current Diagnoses Diverticulitis of large intestine with perforation and abscess without bleeding (01/11/20) Physical Therapy Treatment Note M2 PT-IP Current Condition Start: 01/12/20 15:20 Freq: NEEDED Status: Active Protocol: Document 01/12/20 14:10 AB (Rec: 01/12/20 15:33 AB [id number]) Physical Therapy Current Condition Current Condition Evaluation Date 01/12/20 Treatment Diagnosis diverticulitis with microperforation; difficulty in walking Onset Date 01/11/2020 Precautions Other Precautions falls M3 PT-IP Subjective Start: 01/12/20 15:20 Freq: NEEDED Status: Active Protocol: Document 01/18/20 10:03 SP (Rec: 01/18/20 12:46 SP [id number]) Subjective Physical Therapy Visit Type Type Treatment Note Visit Start Time 10:03 Visit Stop Time 10:28 Total Visit Minutes 25 Number of PLANT GUARD Visits 3 Physical Therapy Visit Comments Patient Comments Pt will to work with PT and assess gait longer distance and stair mgt with safety vital checks. Therapy Pain Assessment Pain Present Pain Present Denied Pain M4 PT-IP Mobility and Gait Start: 01/12/20 15:20 Freq: NEEDED Status: Active Protocol: Document 01/18/20 10:03 SP (Rec: 01/18/20 12:46 SP [id number]) PT-Transfer Assessment Sit to and From Stand Sit to and from Stand Contact Guard Assistance, Minimal Assistance,1 Person Assistance,Use of Upper Extremities Equipment Transfer Assistive Device Gait Belt,Front Wheeled Walker Orthotic/Prosthetic Devices or Brace: No Transfers Transfer Destination Chair,Wheelchair Transfer Technique pt ambulated using FWW Transfer Ability Level of Assist Minimal Assistance,1 Person Assistance,Use of Upper Extremities Comments Mobility Comments Pt was reclined seated in chair when arrived. Pt was able to reposition chair himself. Complete sit <> stand with good hand placement throughout with slow safety pacing usign FWW for support, required Min A secondary to decreased UE/LE strength and unstable once on his feet requiring CGA for safety. Pt was able to ambulate into hallway usign FWW CGA- Min A secondary to unsteady on feet (knees shaky) and LOB to R once passing opened door on R, cued for backing up until feel w/c behind knees prior to sitting and occasional cuing for FWW staying front multimedia services manager for support. Pt's initial gait into hallway approx 20 ft on room air to assess O2 saturation to assimulate home previous LOF decreased to Mid 80s, recovered within 30 sec to low- min 90s with supplimental 1 L while seated in w/c rest and education on pursed lip breathing. Pt completed 3 stair mgt asscend/ descend using BUE on LHR Min A of 1 with BLE demonstrated little unsteady but no buckling demonstrated. Pt's SaO2 decreased to 84% on 1 L during stair mgt and recovered to low 90s after 30 sec seated rest, Mid 90s at rest on 1 L. Pt was able to walk further distance in hallway approx 50 ft using FWW CGA on 1 L O2 with cuing for slow pacing, good fWW and increased stability on straight away but unsteady around end of bed inroom. Safety cues for FWW keeping in front during pivot turn to back up to chair and FWW in front fully until sit with good follow through, again O2 Sa decreased to Mid 80s during gait on 1 L, discussed with nursing end of tx. PLANT GUARD managed O2 portable tank through out tx. Pt was sitting up in chair with supplimental O2 1L and chair alarm donned, call light and all needs in reach. Gait Assessment Gait Gait Assistance Required: Contact Guard Assist,Minimum Assistance,1 Person Assist Distance (Feet) 50 Able to Maintain Weight Bearing Status Yes During Gait Assistive Devices Assistive Device Gait Belt,Front Wheeled Walker Orthotic/Prosthetic Devices or Brace: No Gait Deviations General Gait Pattern Ataxic,Decreased Stride Length ,Decreased Feet Clearance, Flexed Trunk Factors Limiting Gait Function Factors Limiting Gait Function Decreased Activity Tolerance, Decreased Sensation,Decreased Strength,Incoordination, Limited Range of Motion,Pain, Poor Balance,Poor Safety Awareness,Respiratory Distress Comments Gait Comments Pt continues to require Min A for ambulation, unsteady on his feet and assist with 1 L O2 lines and noted decreased in O2 Sa during mobility, see mobility comments. W/c follow secondary to decreased activity tolerance. Stair Climbing Assessment Evaluation Level of Assist On Stairs Minimal Assistance,1 Person Assistance Devices Stair Climbing Assistive Devices Left Railing Technique/Endurance Stair Climbing Direction Ascend and Descend Stair Climbing Technique Step to Step Number of Steps Climbed 3 Stair Climbing Set # Repetitions (reps) 1 Comments Stair Climbing Comments Pt ascend/descend 3 stairs BUE on L HR required Angelina for trunk support to transition up stairs and CGA-Min descending , BLE unsteady but no buckling or LOB. PLANT GUARD managed O2 lines. PT-Balance Assessment Sitting Balance and Reactions Static Sitting Balance Ability Good Dynamic Sitting Balance Ability Fair Standing Balance and Reactions Static Standing Balance Ability Fair Dynamic Standing Balance Ability Poor Device Used FWW M5 PT-IP Objective Assessments Start: 01/12/20 15:20 Freq: NEEDED Status: Active Protocol: Document 01/12/20 14:10 AB (Rec: 01/12/20 15:33 AB [id number]) Orientation Orientation/Cognition Level of Alertness Confusional State Orientation Name Safety Awareness Decreased Safety Awareness Gross Range of Motion Lower Extremity ROM Assessment Within Functional Limits Strength Lower Extremity Strength Assessment Bilaterally Impaired Hip 3+/5 Knee 3+/5 Coordination Assessment Gross Coordination Gross Coordination Impaired M6 PT-IP Treatment Start: 01/12/20 15:20 Freq: NEEDED Status: Active Protocol: Document 01/18/20 10:03 SP (Rec: 01/18/20 12:46 SP [id number]) Physical Therapy Treatment Education Education Provided Safety M7 PT-IP Assessment and Plan Start: 01/12/20 15:20 Freq: NEEDED Status: Active Protocol: Document 01/18/20 10:03 SP (Rec: 01/18/20 12:46 SP [id number]) PT Summary Assessment and Plan Potential Rehabilitation Potential Fair Status of Condition at Evaluation Evolving Summary Impairments Pain,ROM,Strength,Balance, Coordination,Sensation,Tone, Cognition,Bed Mobility, Transfers,Gait,Activity Tolerance Progress Towards Goals Slow Progress due to Medical Issues,Slow Progress due to Activity Tolerance Assessment Summary Pt continues to require Min A for sit<>stand, ambulation and stair mgt due to unsteadiness in standing using fWW or L HR on stairs. Pt would benefit from 24/7 STONE CLEANER and HH PT if returning home but would benefit from SNF rehab to improve balance, strength for overall function and safety. Pt required supplilmental O2 durign mobility and decreased to mid 80s on 1 L during mobility and may need use a home. Pt requires caregiver training with family prior to DC if safe to go home, including bed mobility, transfers, gait, stair mgt trng. Goals Bed Mobility Goal Minimal Assistance Transfer Goal Minimal Assistance,Front Wheeled Walker Gait Goal Minimal Assistance,Front Wheel Walker Gait Distance 3 Days to Meet Goals 20 Frequency of Treatment Frequency Of Treatment Once a Day Treatment Plan Physical Therapy Treatment Plan Bed Mobility Training,Transfer Training,Gait Training, Therapeutic Exercise,Balance Retraining,Discharge Planning, Hot or Cold Pack,Neuromuscular Re-ed,Coordination Retraining Other Recommendations and Next Treatment sitting/standing balance, Focus transfers, ambulation, stair mgt and caregiver training with all above if safe to return home. Recommendations To Nursing Amount of Assist Needed 1 Person Assist Discharge Recommendations PT Discharge Recommendations Home with 25/05 Assist,Home Health,SNF Rehab Other Discharge Recommendations See assessment recommendations . Pt will benefit from SNF therapy to improve/ optimize mobility so he could mobilize in community safely and participate alcohol rehab. Equipment Needed for Home Before FWW if home; if SNF - defer to Discharge rehab setting Transportation Needs at Discharge Wheelchair/Cabulance
--- NOTE | 2020-01-18 10:33 | P.PN_ITS ---
Subjective Subjective Date Patient Seen: 01/18/20 Time Patient Seen: 10:34 Interval history: Feels well no acute overnight events left lower quadrant abdominal pain is largely resolved at this time tolerating regular diet. Exam Vital Signs (past 8 hours): - 01/18/20 03:16 01/18/20 07:30 01/18/20 08:34 Temperature 98.2 F 99.0 F Pulse Rate 77 79 80 Respiratory Rate 20 18 14 Blood Pressure 144/81 H 177/95 H Pulse Oximetry 93 93 89 L 01/18/20 10:17 Temperature Pulse Rate Respiratory Rate Blood Pressure Pulse Oximetry 89 L Oxygen Delivery Method Room Air Oxygen Flow Rate 1 Narrative Exam Narrative: General adult male alert oriented no acute distress Abdomen soft mildly distended and nontender left lower quadrant Objective Labs Result Diagrams: 01/18/20 04:35 01/18/20 04:35 Labs: Laboratory Results - last 24 hr 01/18/20 01/18/20 04:35 04:35 WBC 13.7 H RBC 3.72 L Hgb 11.5 L Hct 34.0 L MCV 91.4 MCH 31.0 MCHC 33.9 RDW 13.6 Plt Count 408 H Neut % (Auto) 83.1 H Lymph % (Auto) 8.1 L [place] % (Auto) 7.7 Eos % (Auto) 1.0 L Baso % (Auto) 0.1 Neut # (Auto) 75523 H Lymph # (Auto) 1100 [place] # (Auto) 1100 H Eos # (Auto) 100 Baso # (Auto) 0 Sodium 136 L Potassium 3.6 Chloride 97 L Carbon Dioxide 34 H BUN 5 L Creatinine 0.72 Estimated GFR > 60.0 BUN/Creatinine Ratio 6.9 Glucose 130 H D Calcium 8.6 Assessment & Plan Assessment & Plan narrative: 64-year-old male admitted with a micro perforation of sigmoid colon secondary to diverticulitis. He is recovering well with antibiotic therapy. Afebrile tolerating a regular diet his abdominal pain has largely resolved. He does have mild leukocytosis white blood cell count is 14 today and 14 yesterday. Will check a procalcitonin as I am unsure if white blood cell count is reflective of his diverticular disease or secondary processes as clinically seems to be doing fairly well from his colon standpoint. Transition to p.o. ciprofloxacin and Flagyl today
[2020-01-18] MEDS: FUROSEMIDE 40 MG/4 ML VIAL IV (10:49)
[2020-01-18] MEDS: CIPROFLOXACIN 400 MG/200 ML PIGGYBACK 200 MG IV (10:50)
[2020-01-18] MEDS: POTASSIUM CHLORIDE 20 MEQ TAB PO ×2 (10:50→16:44)
--- NOTE | 2020-01-18 11:10 | CM.DPC ---
DCP continued: EMR reviewed: CM/RN stopped in to check on patient and make sure D/C plan is still going to work for the patient. when talking with the patient he stated he wants to still go home with his family and have [facility] restarted. CM/Rn asked how patient was feeling, he stated he is feeling much better today. CM/RN spoke with Dr. Baker today during AM rounds and it looks like patient will be able to D/C home with HH and oral antibiotics in the next day or two. Amirah Teixeira RN
--- NOTE | 2020-01-18 11:36 | PM.PN.1 ---
Subjective Subjective Date Patient Seen: 01/18/20 Interval history: The patient is a 64-year-old male admitted to the hospital for a micro perforation due to diverticulitis. Patient reports improvement in abdominal pain and starting to tolerate soft diet. He got IV yesterday for pulmonary edema due to fluid overload. He still has some shortness of breath and wheezing. He also has history of COPD. Exam Vital Signs (past 8 hours): - 01/18/20 07:30 01/18/20 08:34 01/18/20 10:17 Temperature 99.0 F Pulse Rate 79 80 Respiratory Rate 18 14 Blood Pressure 177/95 H Pulse Oximetry 93 89 L 89 L 01/18/20 11:18 Temperature 98.1 F Pulse Rate 70 Respiratory Rate 22 Blood Pressure 130/71 Pulse Oximetry 96 Oxygen Delivery Method Room Air Oxygen Flow Rate 1 Narrative Exam Narrative: General: Alert male who appears mildly dyspneic at rest Lungs: Scattered bilateral expiratory wheeze Heart: Regular rhythm Abdomen: Less distended soft, punch box tender and some guarding left lower quadrant Extremities: No edema Neurological: Alert and oriented Objective Labs Result Diagrams: 01/18/20 04:35 01/18/20 04:35 Labs: Laboratory Results - last 24 hr 01/18/20 01/18/20 04:35 04:35 WBC 13.7 H RBC 3.72 L Hgb 11.5 L Hct 34.0 L MCV 91.4 MCH 31.0 MCHC 33.9 RDW 13.6 Plt Count 408 H Neut % (Auto) 83.1 H Lymph % (Auto) 8.1 L [place] % (Auto) 7.7 Eos % (Auto) 1.0 L Baso % (Auto) 0.1 Neut # (Auto) 88852 H Lymph # (Auto) 1100 [place] # (Auto) 1100 H Eos # (Auto) 100 Baso # (Auto) 0 Sodium 136 L Potassium 3.6 Chloride 97 L Carbon Dioxide 34 H BUN 5 L Creatinine 0.72 Estimated GFR > 60.0 BUN/Creatinine Ratio 6.9 Glucose 130 H D Calcium 8.6 Assessment & Plan Assessment & Plan narrative: Mr. Rashad Randall is a 64-year-old male with a history significant for coronary artery disease with OR status post coronary stents, COPD, hypertension, hyperlipidemia, poorly controlled diabetes type 2, on insulin, with diabetic neuropathy, chronic kidney disease stage 2, hypothyroidism, GERD and recurrent TIAs who presented to the emergency room for abdominal pain, he is admitted for sigmoid diverticulitis with micro perforation. Surgery is following and added Flagyl due to a rising white blood cell count which has helped. Trying to avoid surgical intervention given patient is high medical risk given his recent stenting. 1. Sigmoid diverticulitis with microperforation, present on admission, active. -symptoms improving with decrease in abdominal pain and improvement in p.o. intake -CT exam showed acute sigmoid diverticulitis with several adjacent tiny gas bubbles compatible with microperforation, adjacent mesenteric inflammation with free fluid. -WBC remaining mildly elevated which could be due to inflammation rather than infection -per surgery, transition to p.o. Cipro and Flagyl on 01/18/2020 (was on Zosyn and Flagyl) -recheck procalcitonin -patient may be able to discharge to complete 2 week antibiotic course and follow-up with Dr. Aiken in clinic 2. Acute hypoxemic respiratory failure due to fluid overload, active -sat as low as 85% room air -patient still up about 5 kg since admission and about 6 L on volume status -received 40 mg IV Lasix on 01/16 with good diuresis -ordered additional 40 mg IV Lasix on 01/17 3. COPD, present on admission, active -patient with chronic cough secondary to COPD -continue DuoNebs every 6 hours as needed. -albuterol nebulizer every 2 hours as needed -supplemental O2 as needed. 4. Alcohol abuse, chronic, present on admission. Stable. -patient states that he is trying to stop drinking and reports drinking 2-3 drinks per month. -no evidence of tremors or withdrawal symptoms, patient denies experiencing DTs or withdrawal seizures. 5. Coronary artery disease status post stenting, chronic, present on admission, stable. -the patient with a history of OR in 2006 with stent placement with additional stenting in 2010 and December 2019. -the patient was discharged from [facility] on 12/16/2019 after having stent placement (Circumflex A based on review of [facility] films). -Continue atorvastatin 40 mg daily at bedtime, Imdur 60 mg daily, lisinopril 2.5 mg daily, and metoprolol tartrate 25 mg twice daily. -continue clopidogrel 75 mg daily. 6. Diabetes mellitus type 2, insulin using, present on admission. Stable. -hemoglobin A1c was 8.3 on 12/21/2019 improved from 10.5 in September 2019. -patient with bilateral lower extremity neuropathy in preserved renal function. -glucose much improved with Lantus increased to 40 units b.i.d., NovoLog 10 units with meals plus high-dose sliding scale; at home patient uses Lantus 60-80 units b.i.d. and NovoLog 20-30 units with meals, he was recently switched to a new long-acting insulin but has not picked up Rx 7. Hypothyroidism, chronic, present on admission. Stable. -Continue levothyroxine 50 mcg daily. 8. Depression, chronic, present on admission. Stable. -Continue citalopram 40 mg daily and bupropion 150 mg daily. 9. Tobacco dependence, chronic, present on admission. Stable. -1/2 pack per day smoking history for 45 years. -Ordered nicotine patch 21 mg daily as needed for nicotine withdrawal. 10. Obstructive sleep apnea not on CPAP, chronic, present on admission. Stable. -Encouraged compliance with CPAP and discussed effects of untreated KATI. -Ordered CPAP per RT protocol. 11. Recurrent transitory ischemic attacks, currently asymptomatic, stable. -patient reports having recurrent symptoms most recent event was during hospitalization [place] during hypertensive episode with expressive aphasia, has not shown symptoms while admitted. 12. acute urinary obstruction, resolved -Malagon catheter was discontinued -will monitor urine output DVT prophylaxis: Heparin 5000 units subcu b.i.d. Patient with improving clinical course and hopefully can discharge tomorrow .
--- NOTE | 2020-01-18 11:39 | PC.NURSE ---
Assess- Patient is high energy, and sometimes anxious. Pleasant and cooperative with care. He has been switched to one oral antibiotic, and still getting one iv antibiotic. Given 40mg of iv lasix and 20meq of potassium, which he did have a hard time swallowing but was able to get pill down. Working with physical therapy, tried on room air but sats dropped down into the 80s, put back on 02 and sats up in the 90s. He is a one person assist with walking and getting to and from chair.
[2020-01-18 12:04] LABS: Procalcitonin 0.53 ng/mL (<0.5)
[2020-01-18] MEDS: INSULIN ASPART 100 UNIT/ML INSULN PEN SUBCUT ×2 (12:11→20:40)
[2020-01-18] MEDS: HYDROMORPHONE 2 MG TABLET PO ×2 (13:02→23:00)
[2020-01-18] MEDS: metroNIDAZOLE 500 MG TABLET PO ×2 (13:52→20:35)
--- NOTE | 2020-01-18 14:33 | OT.IP.TRT ---
Current Diagnoses Diverticulitis of large intestine with perforation and abscess without bleeding (01/11/20) Occupational Therapy Treatment Note M2 OT-IP Current Condition Start: 01/13/20 14:43 Freq: Status: Active Protocol: Document 01/13/20 13:56 [facility] (Rec: 01/13/20 16:29 [facility] [id number]) Occupational Therapy Current Condition Current Condition Evaluation Date 01/13/20 Treatment Diagnosis Diverticulitis with microperforation, decreased mobility Diagnosis Onset Date 01/11/20 Weight Bearing Status Weight Bearing Status Weight Bear as Tolerated M3 OT- IP Subjective and Pain Start: 01/13/20 14:43 Freq: Status: Active Protocol: Document 01/18/20 14:32 [facility] (Rec: 01/18/20 14:33 [facility] [id number]) OT- Subjective Occupational Therapy Visit Type Type Patient Refusal Notes Pt declined OT tx due to fatigue after prolonged up time in chair this AM and I just got back to bed 20 min ago. Pt agreed to shower tomorrow AM. No charge.
[2020-01-18] MEDS: ATORVASTATIN 20 MG TABLET 40 MG PO (20:35)
[2020-01-18] MEDS: MELATONIN 3 MG TABLET 6 MG PO (20:35)
[2020-01-18] MEDS: CIPROFLOXACIN 500 MG TABLET PO (20:37)
[2020-01-19] VITALS (7 sets, daily range): BP systolic 109–175; BP diastolic 74–91; PULSE 69–83; RESP 14–18; TEMP 36.6–37.2; O2SAT 92–96
[2020-01-19] MEDS: LEVOTHYROXINE 50 MCG TABLET PO (06:19)
[2020-01-19] MEDS: CIPROFLOXACIN 500 MG TABLET PO (06:19)
[2020-01-19] MEDS: INSULIN ASPART 100 UNIT/ML INSULN PEN 10 UNIT SUBCUT ×2 (08:56→11:55)
[2020-01-19] MEDS: INSULIN ASPART 100 UNIT/ML INSULN PEN SUBCUT (08:56)
[2020-01-19] MEDS: HEPARIN 5,000 UNIT/ML VIAL 5000 UNIT SUBCUT (08:57)
[2020-01-19] MEDS: CITALOPRAM 20 MG TABLET 40 MG PO (08:57)
[2020-01-19] MEDS: CLOPIDOGREL 75 MG TABLET PO (08:57)
[2020-01-19] MEDS: GABAPENTIN 300 MG CAPSULE 900 MG PO (08:57)
[2020-01-19] MEDS: buPROPion SR 150 MG TAB PO (08:57)
[2020-01-19] MEDS: DOCUSATE 100 MG CAPSULE PO (08:57)
[2020-01-19] MEDS: INSULIN GLARGINE 100 UNIT/ML 3ML PEN 40 UNIT SUBCUT (08:57)
[2020-01-19] MEDS: lisinopriL 5 MG TABLET 2.5 MG PO (08:58)
[2020-01-19] MEDS: ISOSORBIDE MONONITRATE ER 30 MG TABLET 60 MG PO (08:58)
[2020-01-19] MEDS: METOPROLOL IR 25 MG TABLET PO (09:00)
[2020-01-19] MEDS: PANTOPRAZOLE 40 MG VIAL IV (09:00)
[2020-01-19] MEDS: SODIUM CHLORIDE 0.9% FLUSH 10 ML IV (09:00)
[2020-01-19] MEDS: metroNIDAZOLE 500 MG TABLET PO (09:00)
[2020-01-19] MEDS: polyethylene glycoL 3350 17 GM POWD.PACK PO (09:00)
[2020-01-19] MEDS: NICOTINE 21 MG PATCH TOP (09:00)
[2020-01-19] MEDS: TAMSULOSIN 0.4 MG CAPSULE PO (09:01)
--- NOTE | 2020-01-19 09:30 | OT.IP.TRT ---
Current Diagnoses Diverticulitis of large intestine with perforation and abscess without bleeding (01/11/20) Occupational Therapy Treatment Note M2 OT-IP Current Condition Start: 01/13/20 14:43 Freq: Status: Active Protocol: Document 01/13/20 13:56 [facility] (Rec: 01/13/20 16:29 [facility] [id number]) Occupational Therapy Current Condition Current Condition Evaluation Date 01/13/20 Treatment Diagnosis Diverticulitis with microperforation, decreased mobility Diagnosis Onset Date 01/11/20 Weight Bearing Status Weight Bearing Status Weight Bear as Tolerated M3 OT- IP Subjective and Pain Start: 01/13/20 14:43 Freq: Status: Active Protocol: Document 01/19/20 10:50 [facility] (Rec: 01/19/20 11:02 [facility] [id number]) OT- Subjective Occupational Therapy Visit Type Type Treatment Note Visit Start Time 09:30 Visit Stop Time 10:24 Total Visit Minutes 54 Occupational Therapy Visit Comments Patient Comments Pt agreeable to shower. Patient/Caregiver Goals TO go home. OT Pain Assessment Pain When Pain Assessed At Rest Pain Present Pain Present Denied Pain M4 OT- IP ADL's Start: 01/13/20 14:43 Freq: Status: Active Protocol: Document 01/19/20 10:50 [facility] (Rec: 01/19/20 11:02 [facility] [id number]) OT ADL-Grooming General Evaluation Grooming Ability Independent OT ADL-Dressing General Eval Lower Body Dressing Ability Maximum Assistance Comments OT Dressing Comments Assist to h[place] brief over his feet and dependent for socks. OT ADL-Toileting General Evaluation Toileting Ability Minimal Assistance Areas Needing Assistance Perform Perineal Hygiene Comments OT Toileting Comments DELFINA for completeness for hygiene needs. OT ADL-Bathing Bathing Type Bathing Type Shower General Evaluation Bathing Ability Moderate Assistance Areas Needing Assistance Wash/Dry Back,Wash/Dry Perineal Area Comments OT Bathing Comments Pt able to sit on the shower chair and reach to get his feet and use of technique to put soapy wash cloth on the floor to get the bottom on his feet. Pt needing assist for hair, back, and pericare needs . M5 OT- IP IADL's Start: 01/13/20 14:43 Freq: Status: Active Protocol: Document 01/13/20 13:56 [facility] (Rec: 01/13/20 16:29 [facility] [id number]) OT-Instrumental Activities of Daily Living Home Safety Awareness Ability to Problem Solve Emergency Able to Problem Solve Situations Home Safety Comments Pt has a Life Alert. Medication Management Medication Management Comments Pt states use of pill box. Money Management Money Management Caregiver Provides Assistance Money Management Comments Pt states son pays the bills. Meal Preparation Meal Preparation Caregiver Provides Assist Program Clerk Program Clerk Caregiver Provides Assist M6 OT- IP Functional Cognition Start: 01/13/20 14:43 Freq: Status: Active Protocol: Document 01/19/20 10:50 [facility] (Rec: 01/19/20 11:02 [facility] [id number]) Cognitive Factors Limiting Selfcare Function Cognitive Ability Level of Alertness Alert,Confusional State Attention Span Ability Capable of Focused Attention, Capable of Sustained Attention Ability to Follow Commands Able to Follow One Step Commands Memory Description Short Term Impaired Safety Awareness Underestimates Need for Assistance Cognitive Comments Cognitive Assessment Comments Pt more confused today and needing assist to help sequence through task of bathing, reminders not to pull up his brief yet due to needing to be cleaned first. Pt needing more safety cues and assist for his balance and use of FWW. M7 OT- IP Mobility and Balance Start: 01/13/20 14:43 Freq: Status: Active Protocol: Document 01/19/20 10:50 [facility] (Rec: 01/19/20 11:02 [facility] [id number]) OT- Bed Mobility Assessment Rolling Type of Rolling Roll to Left Level of Assistance Standby Assistance,Bedrails Supine to Sit Supine to Sit Assist Standby Assistance OT-Transfer Assessment Sit to and From Stand Sit to and from Stand Contact Guard Assistance Transfers Transfer Ability Minimal Assistance,Moderate Assistance Technique Transfer Destination Bed,Shower Stall,Toilet Devices Transfer Assistive Devices Gait Belt,Front Wheeled Walker Comments Mobility Comments Pt very unsteady on his feet today and needing more assist for his balance and leaning backward more today. Pt not able to manage O2 tubing and needing assist to manage tubing along with assist pt for his balance with FWW. MODA to help step over the threshold of the shower. Now recommend that someone will be there to assist home at home to at all times for all ADl and functional mobility needs as pt is a high fall risk. OT- Balance Assessment Sitting Balance and Reactions Static Sitting Balance Ability Good Dynamic Sitting Balance Ability Fair Standing Balance and Reactions Static Standing Balance Ability Poor Comments Other Balance Tests/Deviations/Treatment Pt's O2 on RA from 88-92% at : rest. Pt on RA on the shower and after the shower dropped down to 85% and O2 on 1L had to be replaced back on and O2 increased to 92% after one minute. M8 OT- IP Objective Assessments Start: 01/13/20 14:43 Freq: Status: Active Protocol: Document 01/13/20 13:56 [facility] (Rec: 01/13/20 16:29 [facility] [id number]) OT Strength Upper Extremity Strength Assessment Within Functional Limits OT-Muscle Tone Assessment Muscle Tone WNL Yes M9 OT- IP Assessment and Plan Start: 01/13/20 14:43 Freq: Status: Active Protocol: Document 01/19/20 10:50 [facility] (Rec: 01/19/20 11:02 [facility] [id number]) OT Summary Assessment and Plan Potential Rehabilitation Potential Good Analytic Complexity at Evaluation Low Summary OT Impairments Balance,Functional Cognition, Functional Mobility,Dressing, Toileting,Bathing,Toilet Transfers,Shower Transfers, Activity Tolerance Progress Towards Goals Slow Progress due to Medical Issues,Slow Progress due to Activity Tolerance Assessment Summary Pt having more confusion today , pt states also has had 5 bowel movements already and has not slept well per pt. Also pt having more decreased balance as well and if going home now recommending pt had 24/7 assist at home and home health. Nursing notified of more confusion and decreased balance. Goals Grooming Goal Independent Dressing Goal Moderate Assistance Toileting Goal Independent Bathing Goal Moderate Assistance Toilet Transfer Goal Standby Assistance Shower Transfer Goal Minimal Assistance Patient/Caregiver Education Goal Caregiver Independent Assisting Patient Days to Meet Goals 5 Frequency of Treatment Frequency Of Treatment Once a Day Treatment Plan OT Treatment Plan ADL Training,Functional Mobility,Patient/Family Education,Discharge Planning Discharge Recommendations OT Discharge Recommendations Home with 24/7 Assist,Home Health Transportation Needs at Discharge Private Vehicle
[2020-01-19] MEDS: BECLOMETHASONE 40 MCG INH 10.6 GM 1 PUFF INH (10:33)
--- NOTE | 2020-01-19 11:05 | PM.PN.1 ---
Subjective Subjective Date Patient Seen: 01/19/20 Time Patient Seen: 11:00 Interval history: Patient is gentleman with diverticulitis who is been is receiving IV antibiotics. Daily he has slowly improved. He has minimal to no pain. Exam Vital Signs (past 8 hours): - 01/19/20 04:54 01/19/20 07:00 01/19/20 10:38 Temperature 97.8 F 98.7 F Pulse Rate 80 83 82 Respiratory Rate 16 18 14 Blood Pressure 161/91 H 175/88 H Pulse Oximetry 94 92 94 Oxygen Delivery Method Nasal Cannula Oxygen Flow Rate 1 Narrative Exam Narrative: Abdomen is soft protuberant. There is slight tenderness in the left lower quadrant with vigorous exam. No guarding. Objective Labs Result Diagrams: 01/18/20 04:35 01/18/20 04:35 Labs: Laboratory Results - last 24 hr 01/18/20 04:35 Procalcitonin 0.53 H Assessment & Plan Assessment & Plan narrative: Patient can probably be safely discharged at this time to follow up in the office. He should be sent home on oral antibiotics such as Cipro and Flagyl..
[2020-01-19] MEDS: HYDROMORPHONE 2 MG TABLET PO (11:08)
--- NOTE | 2020-01-19 12:06 | P.DS_ITS ---
History of Present Illness History of Present Illness Date Patient Seen: 01/11/20 Chief complaint: vomiting, diarrhea, fever, son thinks Wing Virus Narrative: Written by Dom LAKHANI: Mr. Rashad Randall is a 64-year-old male with a history significant for coronary artery disease with NE status post coronary stents, COPD, hypertension, hyperlipidemia, poorly controlled diabetes type 2, on insulin, with diabetic neuropathy, chronic kidney disease stage 2, hypothyroidism, GERD and recurrent TIAs who presents to the emergency department for acute onset of abdominal pain this afternoon. The patient reports to feeling acute lower abdominal pain with associated nausea vomiting and diarrhea. Reports vomiting several times at home and having multiple episodes of diarrhea with the 1st stool being formed: He denies blood in the stool or emesis. He has had associated chills, dizziness and sweats. He describes the pain as sharp and aching and rates intensity at 6/10. He reports that is abdomen is no more distended than usual. He denies contact travel or contact with questionable food sources. He does have family members whom are ill but none have GI symptoms. Patient was recently hospitalized at [facility] from 12/05 to 12/06/2019 for chest pain and discharged home to follow-up with his primary care. Was subsequently admitted to [facility] where he underwent cardiac stenting of unknown vessel(s). The patient has been pain-free since being discharged on 12/16/2019. Patient denies headaches or or visual changes, neck or back pain, chest pain or palpitations. He has chronic shortness of breath with chronic cough does not require home O2. He has abdominal pain as described above. Reports no difficulty urinating and has been on Lasix. Patient ambulates with a cane. Upon arrival to the ER the patient had temperature 98.7?, heart rate of 1 was 7, blood pressure of 142/80, respirations 24 saturating 96% on room air. Patient's chest x-ray was unremarkable, he had a CT of the abdomen pelvis which finds acute sigmoid diverticulitis with several small gas bubbles consistent with microperforation, trace free fluid consistent and adjacent mesenteric inflammation. On laboratory analysis the patient has white count of 11.4 with a left shift, hemoglobin of 13.9, hematocrit of 40.1, platelets 307. On coagulation he has a PT of 14.3, INR 1.2, PTT of 29. His electrolytes are within normal range and he has a BUN of 13 and creatinine of 0.87. His nonfasting glucose is 247. His liver functions are all within normal limits. He has a total CK of 151, CK-MB of 3.57, index of 2.4 and a troponin that is negative at less than 0.012. GI PCR panel is negative. Requested general surgery consult Dr. Ryder has been contacted by the ER provider in agreed to see the patient. The patient is admitted to the medicine service for abdominal pain with sigmoid diverticulitis and microperforation and management of his multiple comorbid conditions. Discharge Providers Provider Date of admission: 01/11/20 00:28 Discharge Date: 01/19/20 Primary care physician: Gasper Rutherford DO Consults: 01/11/20 01:36 Consult to Discharge Planning Routine Comment: Consult to General Surgery Routine Comment: Consulting Provider: Ridge Ryder Reason for consultation: Sigmoid diverticulitis with micro perforation Has provider been notified: Yes 01/11/20 01:37 Consult to Respiratory Therapy Evaluate & Treat Comment: COPD Physician Instructions: Evaluate and treat 01/12/20 13:16 Consult to Physical Therapy Evaluate & Treat Comment: Physician Instructions: Evaluate and Treat 01/13/20 10:27 Consult to Occupational Therapy Evaluate & Treat Comment: Physician Instructions: Evaluate and treat Discharge provider: Faith Rice DO Summary Hospital Course Discharge Diagnosis: 1. Sigmoid diverticulitis with microperforation, present on admission. Resolving. 2. Acute hypoxemic respiratory failure due to fluid overload, not present on admission. Resolved. 3. COPD, present on admission. Stable. 4. Alcohol abuse, chronic, present on admission. Stable. 5. Coronary artery disease, status post stenting, chronic, present on admission. Stable. 6. Diabetes mellitus type 2, insulin using, present on admission. Stable. 7. Hypothyroidism, chronic, present on admission. Stable. 8. Depression, chronic, present on admission. Stable. 9. Tobacco dependence, chronic, present on admission. Stable. 10. Obstructive sleep apnea not on CPAP, chronic, present on admission. Stable. 11. History of recurrent transient ischemic attacks. 12. Acute urinary retention, not present on admission. Resolved. Hospital Course: Rashad Randall is a 64-year-old male with a past history significant for coronary artery disease with NE status post coronary stents, COPD, hypertension, hyperlipidemia, poorly controlled diabetes type 2, on insulin, with diabetic neuropathy, chronic kidney disease stage 2, hypothyroidism, GERD and recurrent TIAs who presented to the ED for abdominal pain. 1. Sigmoid diverticulitis with microperforation, present on admission. Resolving. -Symptoms improving with decrease in abdominal pain and improvement in p.o. intake. -CT demonstrated acute sigmoid diverticulitis with several adjacent tiny gas bubbles compatible with microperforation, adjacent mesenteric inflammation with free fluid. -WBC remaining mildly elevated which could be due to inflammation rather than infection. -Consulted general surgery, Dr. Aiken, who continued to follow along and tried to avoid surgical intervention due to recent cardiac stent placement. Continued ciprofloxacin 500 mg twice daily and Flagyl 500 mg 3 times daily for 6 additional days to complete 14 days total. Previously on IV Zosyn and Flagyl. Plan for outpatient follow-up with Dr. Aiken on 01/26/2020. 2. Acute hypoxemic respiratory failure due to fluid overload, not present on admission. Resolved. -Patient would desaturate as low as 85% room air with approximately 5 kg weight gain and net + 6 L on I&O. -Received Lasix 40 mg IV x2 with good diuresis. -Continued to follow daily weights and I&O's. Net + 1 L. -Continued supplemental oxygen to maintain oxygen saturation 88-92%. Patient currently off oxygen satting low 90s. 3. COPD, present on admission. Stable. -Does not represent COPD exacerbation. Patient with chronic cough secondary to COPD. -Continued DuoNebs every 6 hours and albuterol nebs every 2 hours as needed for shortness of breath or wheezing. -Continued supplemental oxygen to maintain oxygen saturation 88-92%. Patient currently off oxygen satting low 90s. 4. Alcohol abuse, chronic, present on admission. Stable. -Patient states that he is trying to stop drinking and reports drinking 2-3 drinks per month. -No evidence of alcohol withdrawal symptoms throughout hospitalization. Patient denies experiencing DTs or withdrawal seizures. 5. Coronary artery disease, status post stenting, chronic, present on admission. Stable. -History of NE in 2006 with stent placement with additional stenting in 2010 and December 2019. -Patient was recently discharged from [facility] on 12/16/2019 after having stent placement (Circumflex A based on review of [facility] films). -Continue atorvastatin 40 mg daily at bedtime, Imdur 60 mg daily, lisinopril 2.5 mg daily, and metoprolol tartrate 25 mg twice daily. -Continue clopidogrel 75 mg daily. 6. Diabetes mellitus type 2, insulin using, present on admission. Stable. -Hemoglobin A1c was 8.3% on 12/21/2019 which is improved from 10.5% in 09/2019. -Patient with complication of bilateral lower extremity neuropathy. -Continued Lantus increased to 40 units twice daily, NovoLog 10 units 3 times daily with meals and high-dose correctional scale insulin. Discharged on home regimen of Tresiba 150 units at bedtime and NovoLog 20-30 units with meals. 7. Hypothyroidism, chronic, present on admission. Stable. -TSH slightly elevated at 5.77. -Continued levothyroxine 50 mcg daily without any dose adjustments due to acute illness. Recommend recheck thyroid function in 4 weeks. 8. Depression, chronic, present on admission. Stable. -Continued citalopram 40 mg daily and bupropion 150 mg daily. 9. Tobacco dependence, chronic, present on admission. Stable. -Patient smokes 0.5 ppd for 45 years. -Continued nicotine patch 21 mg daily as needed for nicotine withdrawal. 10. Obstructive sleep apnea not on CPAP, chronic, present on admission. Stable. -Encouraged compliance with CPAP and discussed effects of untreated KATI. -Ordered CPAP per RT protocol. 11. History of recurrent transient ischemic attacks. -Patient reports having recurrent symptoms most recent event was during [facility]pi [facility] during hypertensive episode with expressive aphasia, has not shown symptoms while admitted. 12. Acute urinary retention, not present on admission. Resolved. -Malagon catheter was discontinued. -Started and continued tamsulosin 0.4 mg daily. Patient now voiding without difficulty. Exam Vital Signs (past 8 hours): - 01/19/20 04:54 01/19/20 07:00 01/19/20 10:38 Temperature 97.8 F 98.7 F Pulse Rate 80 83 82 Respiratory Rate 16 18 14 Blood Pressure 161/91 H 175/88 H Pulse Oximetry 94 92 94 01/19/20 11:26 01/19/20 11:44 Temperature 98.9 F Pulse Rate 69 Respiratory Rate 18 Blood Pressure 109/74 Pulse Oximetry 95 93 Oxygen Delivery Method Room Air Oxygen Flow Rate 0 Narrative Exam Narrative: General: Older gentleman lying in bed comfortably and in no acute distress, well-developed, well-nourished, appropriately interactive. HEENT: Normocephalic, atraumatic. External ears without defect. Pupils equal, round, and reactive to light. Anicteric sclerae, moist conjunctivae, and no lid lag. Neck: Supple with full range of motion. No jugular venous distension. No lymphadenopathy or thyromegaly. Cardiovascular: Regular rate and rhythm without murmurs, rubs, or gallops appreciated. Pulmonary: Clear to auscultation bilaterally without wheeze, crackles or rhonchi. Normal respiratory effort with no use of accessory muscles. Abdomen: Soft, bowel sounds present, nondistended, mild tenderness to palpation in left lower quadrant markedly improved. Extremities: No clubbing, cyanosis, or edema. Mild stasis dermatitis. Skin: Normal temperature, turgor, and texture; no rash, ulcers, or subcutaneous nodules appreciated. Stigmata of liver disease including pulmonary erythema and spider angiomata of chest. No caput medusae, asterixis, or jaundice. Neurological: Cranial nerves grossly intact. Psychiatric: Mildly depressed mood and normal affect. Alert and oriented to person, place, and time. Objective Labs Result Diagrams: 01/18/20 04:35 01/18/20 04:35 Discharge Plan Discharge Plan Patient Disposition: Home Discharge comment: You are being discharged home. You have diverticulitis with a contained microperforation which is being treated with antibiotics. You may continue a low fat and low fiber/low residue diet as tolerated. Please follow- up with general surgery, Dr. Aiken, at your scheduled appointment on 2019 at 2:45 p.m. to further discuss treatment. You have been prescribed ciprofloxacin 500 mg twice daily (every 12 hours) and metronidazole 500 mg 3 times daily (every 8 hours) to continue to treat your infection for the next 6 days. You have been prescribed Colace (stool softener) 100 mg twice daily and MiraLax 17 g daily to help prevent constipation. You have also been prescribed tamsulosin 0.4 mg daily to help shrink your enlarged and prevent urinary retention issues. Discharge orders & Medications Prescriptions: New polyethylene glycol 3350 17 gram Powder In Packet 17 gm PO DAILY Qty: 30 RF: 0 metronidazole 500 mg Tablet 500 mg PO TID Qty: 18 RF: 0 ciprofloxacin HCl [Cipro] 500 mg Tablet 500 mg PO 0700,2100 Qty: 12 RF: 0 docusate sodium [DOK] 100 mg Capsule 100 mg PO BID Qty: 60 RF: 0 tamsulosin [Flomax] 0.4 mg Capsule 0.4 mg PO DAILY Qty: 30 RF: 0 Continued (DME) pen needle, diabetic [Comfort EZ Pen [place]] 29 gauge x 1/2 needle See Dose Instructions .ROUTE .MEDSUPPLY Qty: 100 RF: 0 (DME) pen needle, diabetic [Comfort EZ Pen [place]] 31 gauge x 5/16 needle See Dose Instructions .ROUTE .MEDSUPPLY Qty: 100 RF: 3 metoprolol tartrate 25 mg tablet 25 mg PO BID Qty: 180 RF: 0 (DME) Disabled Parking Permit Qty: 1 RF: 0 beclomethasone dipropionate 40 mcg/actuation HFA aerosol breath activated 1 inhalation Inhalation BID Qty: 10.6 RF: 5 isosorbide mononitrate 60 mg tablet extended release 24 hr 60 mg PO QAM Qty: 90 RF: 0 meclizine 25 mg tablet 25 mg PO TID PRN (Reason: dizziness) Qty: 10 RF: 0 (DME) Glucometer Qty: 1 RF: 0 levothyroxine [Synthroid] 50 mcg tablet 50 mcg PO QAM Qty: 90 RF: 0 Novolog Flexpen U-100 Insulin 100 unit/mL (3 mL) insulin pen See Rx Instructions SUBCUT .COMPLEX Qty: 15 RF: 1 albuterol sulfate [Proventil HFA] 90 mcg/actuation HFA aerosol inhaler 2 puff INHALATION QID PRN (Reason: shortness of breath) Qty: 18 RF: 5 atorvastatin 40 mg tablet 40 mg PO BEDTIME Qty: 90 RF: 0 lisinopril 2.5 mg tablet 2.5 mg PO QAM Qty: 30 RF: 1 omeprazole 20 mg tablet,delayed release (DR/EC) 20 mg PO DAILY Qty: 30 RF: 0 gabapentin 300 mg capsule 900 mg PO BID Qty: 180 RF: 0 bupropion HCl [Wellbutrin SR] 150 mg tablet sustained-release 12 hr 150 mg PO DAILY Qty: 90 RF: 1 citalopram [Celexa] 40 mg tablet 40 mg PO DAILY Qty: 90 RF: 1 clopidogrel 75 mg tablet 75 mg PO DAILY Qty: 90 RF: 1 Tresiba FlexTouch U-200 200 unit/mL (3 mL) insulin pen 150 unit SUBCUT BEDTIME Qty: 9 RF: 0 levothyroxine 75 mcg capsule 75 mcg PO DAILY Qty: 90 RF: 1 triamcinolone acetonide 0.1 % cream 1 applictn TOP DAILY Qty: 30 RF: 5 oxycodone-acetaminophen [Percocet] 5-325 mg tablet 1 tab PO Q8H PRN (Reason: pain) Qty: 30 RF: 0 (DME) lancets Qty: 1 RF: 4 (DME) Test strips Qty: 1 RF: 4 nitroglycerin 0.4 mg tablet, sublingual 0.4 mg sublingual PRN PRN (Reason: Chest Pain) RF: 0 ipratropium-albuterol 0.5 mg-3 mg(2.5 mg base)/3 mL Solution For Nebulization 3 ml INH QID Qty: 360 RF: 0 nicotine 21 mg/24 hr Patch 24 Hour 21 mg topical DAILY Qty: 30 RF: 0 Follow up/Referrals: Paddy Aiken MD [Physician] - 01/26/20 2:45 pm (Please keep her follow-up appointment. Our office is located in the area near the pharmacy and the [facility]. The sign over the door is [facility]. Please call our office if you have any questions.) Gasper Rutherford, DO [Primary Care Provider] - Diet/Activity/Treatments Diet: Diet as Tolerated and Low-fat Diet comment: low fiber/residue Activity: Activity as tolerated Visit Report/Discharge Packet Instructions: Low-Fiber/Low-Residue Diet, DI for Heart Failure, DI for Diverticulitis, How to Prevent Falls Discharge Data Primary Care Provider: Gasper Rutherford Discharges patient from system. Discharge Date/Time: 01/19/20 16:53
--- NOTE | 2020-01-19 14:35 | PT.IPTN ---
Current Diagnoses Diverticulitis of large intestine with perforation and abscess without bleeding (01/11/20) Physical Therapy Treatment Note M2 PT-IP Current Condition Start: 01/12/20 15:20 Freq: NEEDED Status: Active Protocol: Document 01/12/20 14:10 AB (Rec: 01/12/20 15:33 AB [id number]) Physical Therapy Current Condition Current Condition Evaluation Date 01/12/20 Treatment Diagnosis diverticulitis with microperforation; difficulty in walking Onset Date 01/11/2020 Precautions Other Precautions falls M3 PT-IP Subjective Start: 01/12/20 15:20 Freq: NEEDED Status: Active Protocol: Document 01/19/20 14:08 SP (Rec: 01/19/20 15:15 SP [email or web address]) Subjective Physical Therapy Visit Type Type Treatment Note Visit Start Time 14:08 Visit Stop Time 14:35 Total Visit Minutes 27 Notes Son and daughter in law present for caregiver training . Number of LINING LAYER Visits 4 Physical Therapy Visit Comments Patient Comments Pt willing to work with therapy and son providing assist. Therapy Pain Assessment Pain Present Pain Present Denied Pain M4 PT-IP Mobility and Gait Start: 01/12/20 15:20 Freq: NEEDED Status: Active Protocol: Document 01/19/20 14:08 SP (Rec: 01/19/20 15:15 SP [email or web address]) PT-Bed Mobility Assessment Supine to Sit Supine to Sit Minimal Assistance Scooting Scooting to Edge of Bed Contact Guard Assistance PT-Transfer Assessment Sit to and From Stand Sit to and from Stand Contact Guard Assistance, Minimal Assistance,1 Person Assistance,Use of Upper Extremities Equipment Transfer Assistive Device Gait Belt,Front Wheeled Walker Orthotic/Prosthetic Devices or Brace: No Transfers Transfer Destination Chair,Wheelchair Transfer Technique pt ambulated using FWW Transfer Ability Level of Assist Contact Guard Assistance, Minimal Assistance,Use of Upper Extremities Comments Mobility Comments Pt was supine in bed when arrived on room air SaO2 91%. supine to sitting CGA- Min for trunk support HOB flat to assimulate home, ableto scoot to EOB himself SBA- CGA. Son donned gait belt for safety properly and instructed can take home. Sit to stand CGA usign fWW, safety cues given for proper hand placement to push up from bed, proper positioning of FWW during turns slow turns, patient demonstrates quick package pick up turns and slam onto floor around end of bed while walking out to hallway w/c. Cued to reach back prior to sitting with FWW staying in front fully. Pt unsteady on feet requiring CGA provided by son for safety during mobilty . Pt's O2 desaturated to 84% on room air, provided 1L O2 and recovered with instruction on pursed lip breathing, recovered low 88-91% within 30 sec. Pt complete stair mgt usign LHR ascend/descend to assimulate son's home enterance then ambulted approx 70 ft before reported need to sit feeling unsteady and + SOB. Pt O2 checked with SaO2 87-88% on 1 L and patient reported thinks his blood sugar is low, LINING LAYER provided juice to assist symptoms and pushed patient back to room and son assisted patient transfer into chair usign FWW with good cuing for safety during pivot transfer. LINING LAYER notified OPEN W[facility]ER and respiratory therapist seen in hallway of pt's response to tx, O2 desaturation during rest and mobility and blood sugar check 64. OPEN WINDER provided a snack and there was more juice to assist. Pt was given call light, all needs in reach and chair alarm when left. Son and daughter were in room. LINING LAYER discussed with care mgt team patient's response to tx and discussion had with respiratory therapist, OPEN W[facility]ER and nurse. Respiratory therapist and care mgt steam shovel runner stated would follow up with Dr Dejesus regarding reassessment of O2 saturation safety prior to DC plan. Family in room when left waiting on care mgt team to come speak with them. Gait Assessment Gait Gait Assistance Required: Contact Guard Assist,Minimum Assistance,1 Person Assist Distance (Feet) 70 Able to Maintain Weight Bearing Status Yes During Gait Assistive Devices Assistive Device Gait Belt,Front Wheeled Walker Orthotic/Prosthetic Devices or Brace: No Gait Deviations General Gait Pattern Ataxic,Decreased Stride Length ,Decreased Feet Clearance, Flexed Trunk Factors Limiting Gait Function Factors Limiting Gait Function Decreased Activity Tolerance, Decreased Sensation,Decreased Strength,Incoordination, Limited Range of Motion,Pain, Poor Balance,Poor Safety Awareness,Respiratory Distress Comments Gait Comments Pt little more steady on his feet this afternoon with son providing mobility support for safety, cued proper FWW positioning and slow pacing, CGA- Min. See mobility comments w/c follow secondary to decreased activitiy tolerance and strength. Stair Climbing Assessment Evaluation Level of Assist On Stairs Contact Guard Assistance, Minimal Assistance,1 Person Assistance Devices Stair Climbing Assistive Devices Left Railing Technique/Endurance Stair Climbing Direction Ascend and Descend Stair Climbing Technique Step to Step Number of Steps Climbed 3 Stair Climbing Set # Repetitions (reps) 1 Comments Stair Climbing Comments Pt ascend/descend 3 stairs BUE on L HR required CGA-Angelina provided by son for trunk guidence balance support during transition up stairs and CGA-Min descending, BLE unsteady but no buckling or LOB. LINING LAYER managed O2 lines. PT-Balance Assessment Sitting Balance and Reactions Static Sitting Balance Ability Good Dynamic Sitting Balance Ability Fair Standing Balance and Reactions Static Standing Balance Ability Poor Dynamic Standing Balance Ability Poor Device Used FWW M5 PT-IP Objective Assessments Start: 01/12/20 15:20 Freq: NEEDED Status: Active Protocol: Document 01/12/20 14:10 AB (Rec: 01/12/20 15:33 AB [id number]) Orientation Orientation/Cognition Level of Alertness Confusional State Orientation Name Safety Awareness Decreased Safety Awareness Gross Range of Motion Lower Extremity ROM Assessment Within Functional Limits Strength Lower Extremity Strength Assessment Bilaterally Impaired Hip 3+/5 Knee 3+/5 Coordination Assessment Gross Coordination Gross Coordination Impaired M6 PT-IP Treatment Start: 01/12/20 15:20 Freq: NEEDED Status: Active Protocol: Document 01/19/20 14:08 SP (Rec: 01/19/20 15:15 SP [email or web address]) Physical Therapy Treatment Education Education Provided Safety M7 PT-IP Assessment and Plan Start: 01/12/20 15:20 Freq: NEEDED Status: Active Protocol: Document 01/19/20 14:08 SP (Rec: 01/19/20 15:15 SP [email or web address]) PT Summary Assessment and Plan Potential Rehabilitation Potential Fair Status of Condition at Evaluation Evolving Summary Impairments Pain,ROM,Strength,Balance, Coordination,Sensation,Tone, Cognition,Bed Mobility, Transfers,Gait,Activity Tolerance Progress Towards Goals Slow Progress due to Medical Issues,Slow Progress due to Activity Tolerance Assessment Summary Pt continues to require CGA- Min A for sit<>stand occasional retro wt shift into standing with CGA- Min support for corrections during transf, ambulation and stair mgt due to unsteadiness. Pt would benefit from / [employer]ATION ASSISTANT and PT to improve balance, strength for overall function and safety to progress in functional mobility. Pt required supplilmental O2 durign mobility and decreased to mid 80s on 1 L during mobility and may need use a home. Pt completed caregiver training with son for safe DC go home when medicallly stable . Pt's son stated is going to go to nearby store to get him a FWW for home use prior to DC . Goals Bed Mobility Goal Minimal Assistance Transfer Goal Minimal Assistance,Front Wheeled Walker Gait Goal Minimal Assistance,Front Wheel Walker Gait Distance 3 Days to Meet Goals 20 Frequency of Treatment Frequency Of Treatment Once a Day Treatment Plan Physical Therapy Treatment Plan Bed Mobility Training,Transfer Training,Gait Training, Therapeutic Exercise,Balance Retraining,Discharge Planning, Hot or Cold Pack,Neuromuscular Re-ed,Coordination Retraining Other Recommendations and Next Treatment sitting/standing balance, Focus transfers, ambulation, stair mgt and caregiver training with all above if safe to return home. Recommendations To Nursing Amount of Assist Needed 1 Person Assist Discharge Recommendations PT Discharge Recommendations Home with 24/7 Assist,Home Health Other Discharge Recommendations See assessment recommendations . Pt will benefit from PT to improve/ optimize mobility so he could mobilize in community safely and participate alcohol rehab. Equipment Needed for Home Before FWW if home; Discharge Transportation Needs at Discharge Wheelchair/Cabulance
--- NOTE | 2020-01-19 14:59 | CM.DPC ---
DCP continued: DASHAWN/RN spoke with PT about patients family requesting information about [facility] services to help patient at home. DASHAWN/RN gave patient information about Aid and attendance through the [facility] as well as how to get a disability rating through the [facility] to help with providing patient with a caregiver and assist the family get help financially to support patient with his health care needs. Amirah Spangler RN
== END 2020-01-19 16:53 | disposition home or self-care (01) | DRG 391 ==
LOC: ED 01-11 00:27 → AC 01-11 00:30
PROVIDERS: Internal Medicine; Surgery; Admitting Provider Nurse Practitioner Adult Health; Emergency Provider Emergency Medicine; PCP Family Medicine; Referring Provider Emergency Medicine; Visit Provider Nurse Practitioner Adult Health
DX: K57.20 Diverticulitis of large intestine with perforation and abscess without bleeding (principal); J96.01 Acute respiratory failure with hypoxia; J81.0 Acute pulmonary edema; J44.9 Chronic obstructive pulmonary disease, unspecified; E11.40 Type 2 diabetes mellitus with diabetic neuropathy, unspecified; E11.22 Type 2 diabetes mellitus with diabetic chronic kidney disease; R33.9 Retention of urine, unspecified; I25.10 Atherosclerotic heart disease of native coronary artery without angina pectoris; I12.9 Hypertensive chronic kidney disease with stage 1 through stage 4 chronic kidney disease, or unspecified chronic kidney disease; N18.2 Chronic kidney disease, stage 2 (mild); E78.5 Hyperlipidemia, unspecified; E11.65 Type 2 diabetes mellitus with hyperglycemia; Z79.4 Long term (current) use of insulin; E87.70 Fluid overload, unspecified; E03.9 Hypothyroidism, unspecified; Z86.73 Personal history of transient ischemic attack (TIA), and cerebral infarction without residual deficits; F17.210 Nicotine dependence, cigarettes, uncomplicated; K21.9 Gastro-esophageal reflux disease without esophagitis; F32.9 Major depressive disorder, single episode, unspecified; G47.33 Obstructive sleep apnea (adult) (pediatric); Z98.890 Other specified postprocedural states; Z95.818 Presence of other cardiac implants and grafts
CPT/HCPCS: 36415; 51798; 71045; 74177; 80048; 80053; 80076; 81001; 82550; 82553; 82962; 83690; 83735; 84145; 84484; 85025; 85610; 85730; 87086; 87507; 93005; 93010; 94640; 94760; 94762; 96361; 96365; 96375; 96376; 97116; 97162; 97165; 97530; 97535; 99231; 99232; 99285; C9113; J0744; J1170; J1644; J1940; J2270; J2405; J2543; J7613; Q9967

== ENCOUNTER → 2020-01-26 12:37 | Outpatient (CLI) | payer OTHER, SELFPAY ==
[2020-01-19 11:05] VITALS: BMI 32.3
[2020-01-26 12:54] LABS: Add Manual Diff / Slide Review NO; Basophils Absolute Auto 0 /uL (0-100); Basophils Percent Auto 0.2 % (0-2); Eosinophils Absolute Auto 400 /uL (0-450); Eosinophils Percent Auto 3.4 % (2-4); Hemoglobin 12.9 g/dL (13.5-17.5); Lymphocytes Absolute Auto 1300 /uL (1100-4500); Lymphocytes Percent Auto 10.8 % (25-40); Mean Corpuscular HGB Conc 34.1 % (30-36); Mean Corpuscular Hemoglobin 31.2 PG (26-34); Mean Corpuscular Volume 91.6 fL (80-100); Monocytes Absolute Auto 900 /uL (0-900); Monocytes Percent Auto 7.6 % (3-14); Neutrophils Absolute Auto 9300 /uL (1500-7000); Platelet Count 440 X10^3/uL (150-400); Red Blood Cell Count 4.15 X10^6/uL (4.5-5.9); Red Cell Distribution Width 14.4 % (11.6-14.8); White Blood Cell Count 11.9 X10^3/uL (4.5-11.0)
== END ==
PROVIDERS: PCP Family Medicine; Referring Provider Specialist; Visit Provider Specialist
DX: K57.92 Diverticulitis of intestine, part unspecified, without perforation or abscess without bleeding (principal)
CPT/HCPCS: 36415; 85025

== ENCOUNTER 2020-04-24 12:44 | Emergency (ER) | payer OTHER, SELFPAY ==
[2020-01-19 11:05] VITALS: BMI 32.3
[2020-04-24] VITALS (9 sets, daily range): BP systolic 123–193; BP diastolic 58–96; PULSE 66–89; RESP 16–26; TEMP 36.6; O2SAT 94–99; BMI 32.3
--- NOTE | 2020-04-24 12:53 | DI.RAD.S_ITS ---
PROCEDURE: XR CHEST 1V INDICATIONS: chest pain TECHNIQUE: One view of the chest was acquired. COMPARISON: [facility], CR, XR CHEST 1V, 01/10/2020, 22:48. FINDINGS: Surgical changes and devices: None. Lungs and pleura: Lungs are clear. Chronic interstitial prominence appears unchanged. No pleural effusions or pneumothorax. Mediastinum: Mediastinal contours appear normal. Heart size is normal. Bones and chest wall: No suspicious bony lesions. Overlying soft tissues appear unremarkable. IMPRESSION: No acute cardiopulmonary disease. Dictated by: Hui Marie M.D. on 04/24/2020 at 13:12 Approved by: Hui Marie M.D. on 04/24/2020 at 13:13
--- NOTE | 2020-04-24 13:07 | ED.CHESTPAIN ---
HPI - Chest Pain General Chief Complaint: Chest Pain Stated Complaint: Chest Pain, Shortness of Breath Time Seen by Provider: 04/24/20 12:51 Source: patient and EMS Mode of arrival: EMS Limitations: no limitations History of Present Illness HPI narrative: Patient is 64-year-old male with history of angina coronary artery disease and COPD presenting with chest pain and shortness of breath. He apparently saw his nurse transplant Dr. Baires recently and he was prescribed nitroglycerin he has unfortunately lost the bottle of nitroglycerin and woke up this morning with chest pain and shortness of breath 4th worse with exertion. Pain does not radiate. He received 3 nitroglycerines with EMS which he says did help with the pain. MD complaint: chest pain Onset (ago): minute(s) Onset: during rest Pain location: left chest Severity: moderate Quality: tightness and heaviness Pain radiation: none Exacerbating factors: exertion Related Data Home Medications Medication Instructions Recorded Confirmed nitroglycerin 0.4 mg sublingual 0.4 mg SUBLINGUAL PRN PRN tab 12/21/19 03/14/20 tablet Previous Rx's Medication Instructions Recorded ipratropium-albuterol 3 ml INH QID #360 ml 03/12/19 Disabled Parking Permit #1 ea 08/26/19 triamcinolone acetonide 0.1 % 1 applictn TOP DAILY #30 gram 10/10/19 topical cream beclomethasone dipropionate 40 1 inhalation INHALATION BID #10.6 10/12/19 mcg/actuation HFA breath activated gram aerosol meclizine 25 mg tablet 25 mg PO TID PRN #10 tab 10/12/19 Glucometer #1 ea 10/17/19 levothyroxine 50 mcg tablet 50 mcg PO QAM #90 tab 10/21/19 albuterol sulfate 90 mcg/actuation 2 puff INHALATION QID PRN #18 gram 12/05/19 aerosol inhaler atorvastatin 40 mg tablet 40 mg PO BEDTIME #90 tab 12/23/19 citalopram 40 mg tablet 40 mg PO DAILY #90 tab 01/03/20 levothyroxine 75 mcg capsule 75 mcg PO DAILY #90 cap 01/06/20 clopidogrel 75 mg tablet 75 mg PO DAILY #90 tab 02/17/20 gabapentin 300 mg capsule 900 mg PO BID #360 cap 02/17/20 lancets #1 each 02/17/20 omeprazole 20 mg tablet,delayed 20 mg PO DAILY #90 tab 02/17/20 release tamsulosin 0.4 mg capsule 0.4 mg PO DAILY #90 cap 02/17/20 pen needle, diabetic 31 gauge x #100 each 02/27/20 5/16 insulin aspart U-100 100 unit/mL See Rx Instructions SUBCUT 03/14/20 (3 mL) subcutaneous pen .COMPLEX #15 ml insulin glargine U-300 conc 300 80 unit SUBCUT BID #15 ml 03/14/20 unit/mL (3 mL) subcutaneous pen Test strips #1 each 03/22/20 isosorbide mononitrate 60 mg 60 mg PO QAM #90 tab 04/11/20 tablet,extended release 24 hr bupropion HCl 150 mg tablet,12 hr 150 mg PO DAILY #90 each 04/24/20 sustained-release lisinopril 2.5 mg tablet 2.5 mg PO QAM #90 tab 04/24/20 metoprolol tartrate 25 mg tablet 25 mg PO BID #180 tab 04/24/20 nitroglycerin 0.4 mg sublingual 0.4 mg SL ONCE #20 tab 04/24/20 tablet pen needle, diabetic 29 gauge x #100 each 04/24/20 1/2 Allergies Allergy/AdvReac Type Severity Reaction Status Date / Time adhesive Allergy Mild REDNESS/ITC Verified 03/14/20 11:24 HINESS Review of Systems Review of Systems Narrative: GENERAL: Denies chills, fatigue, malaise, fever, sweats, travel HEENT: Denies sinus pain, ear pain, sore throat, difficulty swallowing, neck pain RESPIRATORY: Denies dyspnea, cough, wheezing, hemoptysis, sputum. CARDIOVASCULAR: See HPI GASTROINTESTINAL: Denies nausea, vomiting, abdominal pain, diarrhea, constipation, melena. : Denies dysuria, frequency, incontinence, hematuria, urinary retention, flank pain. MUSCULOSKELETAL: Denies weakness, joint pain, or bony pain SKIN: No rash, no erythema, no pruritus NEUROLOGIC: Denies weakness, dizziness, headache, numbness, change in speech, confusion PSYCHIATRIC: No concerning psychosocial issues. 12 point review of systems is negative except for those stated above and HPI Patient History Medical History Chicken pox (Resolved 1956) Chickenpox (Resolved 1956) Chronic cough (Chronic) COPD (chronic obstructive pulmonary disease) (Chronic) Coronary artery disease (Chronic 2006) Depression (Chronic 2008) Diabetes (Chronic 1994) Eczema (Chronic) Foot pain (Chronic) GERD (gastroesophageal reflux disease) (Chronic 2012) Gout (Resolved) History of recurrent TIAs (Acute) Hyperlipidemia (Chronic) Hypertension (Chronic) Hypothyroidism (Chronic) Kidney disease (Chronic 2009) Measles (Resolved 1955) Measles (Resolved 1955) Mumps (Resolved 1958) Mumps (Resolved 1958) Neuropathy (Chronic) Obstructive sleep apnea (Chronic) Shoulder pain (Chronic) Status post myocardial infarction (Resolved) Strain of muscle of right groin region (Resolved 03/30/18) Well adult exam (Acute) Surgical History Anesthesia (Resolved) History of heart artery stent (Resolved 2006) History of heart artery stent (Resolved 2010) Hx of shoulder surgery (Resolved 2005) Family History Brother Age: 65 Diabetes mellitus Hyperlipidemia Mother Heart disease Hypertension Hyperlipidemia Diabetes mellitus Grandmother Diabetes mellitus Brother No problems noted. Sister Breast cancer Social History household members: family, children and other Smoking Status: Current every day smoker Tobacco: How many years used: 45 alcohol intake: current Smoking Status: Current every day smoker alcohol intake frequency: 0-2 drinks per day Substance Use Type: marijuana Exam Initial Vital Signs Initial Vital Signs: Vital Signs Temperature 97.9 F 04/24/20 12:53 Pulse Rate 74 04/24/20 12:53 Respiratory Rate 17 04/24/20 12:53 Blood Pressure 187/81 H 04/24/20 12:53 Pulse Oximetry 98 04/24/20 12:53 GENERAL: Alert male appears in mild pain HEENT: Head atraumatic,EOMI, pupils reactive, face symmetric, [moist] mucous membranes CARDIOVASCULAR: Regular rate and rhythm without murmurs, rubs or gallops. RESPIRATORY: Breath sounds equal bilaterally, no wheezes rales or rhonchi. ABDOMEN: Soft, nontender. Normoactive bowel sounds all 4 quadrants. No guarding or rebound. EXTREMITIES: Normal range of motion, no clubbing or edema. Neurovascularly intact NEUROLOGICAL: Alert and oriented x4.Normal gait and speech. Cranial nerves II through XII grossly intact. SKIN: Warm, dry, no laceration, no petechiae, no rashes or lesions. Course Orders Ordered: ED Orders 04/24/20 12:53 XR chest 1V Stat EKG-12 Lead Stat 04/24/20 13:00 Complete Blood Count AUTO DIFF Stat Comprehensive Metabolic Panel Stat Lipase Stat Troponin & CK Cardiac Panel Stat 04/24/20 14:26 CT angio chest abdomen pelvis Stat 04/24/20 16:07 Troponin I Stat Discontinued Medications Aspirin (Aspirin Chew) 324 mg PO NOW ONE Stop: 04/24/20 12:53 Last Admin: 04/24/20 13:15 Dose: Not Given Documented by: AYDIN Hydromorphone HCl (Dilaudid) 1 mg IV NOW ONE Stop: 04/24/20 15:02 Last Admin: 04/24/20 15:04 Dose: 1 mg Documented by: SHARAN Hydromorphone HCl (Dilaudid) 1 mg IV NOW ONE Stop: 04/24/20 16:53 Last Admin: 04/24/20 16:59 Dose: 1 mg Documented by: AYIDN Sodium Chloride (Normal Saline 0.9%) 1,000 mls @ 150 mls/hr IV CONT LUCIANO Last Admin: 04/24/20 13:16 Dose: 150 mls/hr Documented by: AYDIN Nitroglycerin (Nitroglycerin) 50 mg in 250 mls @ 1.5 mls/hr IV TITRATE LUCIANO; Protocol Last Titration: 04/24/20 14:23 Dose: 7.5 mcg/min, 2.25 mls/hr Documented by: Admin: 04/24/20 13:42 Dose: 5 mcg/min, 1.5 mls/hr Documented by: AYDIN Morphine Sulfate (Morphine) 2 mg IV NOW ONE Stop: 04/24/20 13:58 Last Admin: 04/24/20 14:00 Dose: 2 mg Documented by: AYDIN Nitroglycerin (Nitrostat) 0.4 mg SL NOW ONE Stop: 04/24/20 13:16 Last Admin: 04/24/20 13:22 Dose: 0.4 mg Documented by: AYDIN Ondansetron HCl (Zofran) 4 mg IV NOW ONE Stop: 04/24/20 15:30 Last Admin: 04/24/20 15:33 Dose: 4 mg Documented by: AYDIN Reevaluation(s) Reevaluation #1: The patient received nitroglycerin sublingual he said it did help his rising chest pain but now it seems to be coming back. Nitroglycerin drip has been ordered awaiting Cardiology to return phone call Consultations Time: 14:24 Consultation #2: brown, updated on patient's symptoms test results recommends stress test, although he did have 1 in December and it was negative Time: 15:00 Consultation #3: ayah, request patient be transferred to facility with Cardiology due to ongoing chest pain on nitroglycerin drip Time: 15:55 Additional Consultation(s): Dr. Castillo /mark, accepts patient Vital Signs Vital signs: Vital Signs - 8 hr 04/24/20 12:53 04/24/20 13:22 04/24/20 13:42 Temperature 97.9 F Pulse Rate 74 70 66 Respiratory Rate 17 Blood Pressure 187/81 H 193/96 H 159/84 H Blood Pressure [Right Arm] Pulse Oximetry 98 04/24/20 13:54 04/24/20 14:22 04/24/20 14:47 Temperature Pulse Rate 68 73 89 Respiratory Rate 16 16 18 Blood Pressure Blood Pressure [Right Arm] 166/80 H 181/82 H 189/94 H Pulse Oximetry 98 98 95 04/24/20 15:35 04/24/20 16:58 04/24/20 17:23 Temperature Pulse Rate 78 78 80 Respiratory Rate 17 18 26 H Blood Pressure 123/58 L Blood Pressure [Right Arm] 134/68 146/82 H Pulse Oximetry 95 99 94 MDM - Chest Pain Lab Data Attestation: I reviewed the patient's lab results. Result diagrams: 04/24/20 13:00 04/24/20 13:00 Labs: Lab Results 04/24/20 04/24/20 04/24/20 Range/Units 13:00 13:00 16:07 WBC 8.9 (4.5-11.0) X10^3/uL RBC 4.37 L (4.5-5.9) X10^6/uL Hgb 13.7 (13.5-17.5) g/dL Hct 39.4 L (41-53) % MCV 90.1 (80-100) fL MCH 31.3 (26-34) PG MCHC 34.8 (30-36) % RDW 15.1 H (11.6-14.8) % Plt Count 219 (150-400) X10^3/uL Neut % (Auto) 71.4 (50-75) % Lymph % (Auto) 17.8 L (25-40) % Rhea % (Auto) 8.6 (3-14) % Eos % (Auto) 1.9 L (2-4) % Baso % (Auto) 0.3 (0-2) % Neut # (Auto) 6400 (0103-3706) /uL Lymph # (Auto) 1600 (1958-8715) /uL Rhea # (Auto) 800 (0-900) /uL Eos # (Auto) 200 (0-450) /uL Baso # (Auto) 0 (0-100) /uL Sodium 137 (137-145) mmol/L Potassium 4.2 (3.4-5.1) mmol/L Chloride 105 (98-107) mmol/L Carbon Dioxide 26 (22-32) mmol/L BUN 13 (9-20) mg/dL Creatinine 0.73 (0.66-1.25) mg/dL Estimated GFR > 60.0 (>60) mL/min BUN/Creatinine Ratio 17.8 (6-22) Glucose 184 H (80-110) mg/dL Calcium 9.0 (8.4-10.2) mg/dL Total Bilirubin 0.5 (0.2-1.3) mg/dL AST 32 (17-59) IU/L ALT 25 (<50) IU/L Alkaline Phosphatase 65 (38-126) U/L Total Creatine Kinase 325 H (55-170) U/L CK-MB (CK-2) 4.38 H (<2.37) ng/mL CK-MB (CK-2) Rel Index 1.3 L (1.5-5.0) % Troponin I < 0.012 < 0.012 (0.01-0.034) ng/mL Total Protein 7.3 (6.3-8.2) g/dL Albumin 4.1 (3.5-5.0) g/dL Globulin 3.2 (1.7-4.1) g/dL Albumin/Globulin Ratio 1.3 (1.0-2.8) Lipase 152 (23-300) U/L Imaging Data Chest x-ray: Radiologist's Impression: PROCEDURE: XR CHEST 1V INDICATIONS: chest pain TECHNIQUE: One view of the chest was acquired. COMPARISON: [facility], CR, XR CHEST 1V, 01/10/2020, 22:48. FINDINGS: Surgical changes and devices: None. Lungs and pleura: Lungs are clear. Chronic interstitial prominence appears unchanged. No pleural effusions or pneumothorax. Mediastinum: Mediastinal contours appear normal. Heart size is normal. Bones and chest wall: No suspicious bony lesions. Overlying soft tissues appear unremarkable. IMPRESSION: No acute cardiopulmonary disease. Dictated by: Hui Marie M.D. on 04/24/2020 at 13:12 CT scan - abdomen/pelvis: Radiologist's Impression: PROCEDURE: CT ANGIO CHEST ABDOMEN PELVIS INDICATIONS: persistant chest pain TECHNIQUE: Precontrast 5 mm thick sections acquired from the lung apices to the iliac crests. After the administration of intravenous contrast, 2.5 mm thick sections again acquired from the lung apices to the iliac crests. Maximum intensity projection (MIP) oblique sagittal and coronal reformats were then acquired. For radiation dose reduction, the following was used: automated exposure control. COMPARISON: [facility], CT, ABDOMEN/PELVIS WITH CONTRAST, 11/04/2015, 20:49. [facility], CT, CT ANGIO CHEST ABDOMEN, 12/08/2019, 7:24. FINDINGS: Image quality: Excellent. AORTA: No areas of hemodynamically significant stenosis, vascular occlusion, aneurysmal dilation or dissection is identified. CHEST: Lungs and pleura: No acute airspace opacities. No pleural effusions or pneumothorax. Central and peripheral airways are patent and normal in caliber. Mediastinum: Heart size is normal. No pericardial effusion. No mediastinal or hilar adenopathy by size criteria. Central pulmonary arteries are normal in size. Esophagus is normal in caliber. No hiatal hernias. Bones and chest wall: No axillary adenopathy by size criteria. Thyroid gland is unremarkable. No suspicious bony lesions. No vertebral body compression fractures. ABDOMEN: Vasculature: Celiac trunk and mesenteric arteries are patent. Renal arteries are also patent. Solid organs: Liver is normal in size and enhancement. Gallbladder is unremarkable as. Biliary system is non dilated. Pancreas enhances normally. Spleen is normal in size and enhancement. No adrenal nodules. Both kidneys are normal in size and enhancement, without hydronephrosis. Peritoneum and bowel: No free fluid or air. Bowel loops are nonobstructed. Significant colonic diverticulosis present within the left colon. There is prominent thickening within the midportion of the sigmoid colon, which has been present since 2016, although appearing mildly more prominent. Nodes and vessels: No retroperitoneal or mesenteric adenopathy by size criteria. Inferior vena cava is normal in morphology. Miscellaneous: No ventral hernias. PELVIS: Genitourinary: Bladder wall thickness is normal. Miscellaneous: No inguinal hernias or adenopathy. No ventral hernias. Bones: No suspicious bony lesions. No vertebral body compression fractures. IMPRESSION: 1. No evidence of aortic dissection, aneurysmal dilation of hemodynamically significant stenosis. 2. Significant left colonic diverticulosis. There has been progressive thickening of the sigmoid colon since 2016. While this could be secondary to repeated episodes of active inflammation, recommend followup colonoscopy to exclude presence of underlying mass lesion. No current surrounding inflammatory change to suggest active colitis. Dictated by: Viri Jacobsen M.D. on 04/24/2020 at 16:07 ECG Data Attestation: I personally reviewed and interpreted this ECG as follows: Prior ECG tracings: available for review Interpretation: EKG 1. Sinus rhythm rate [address] elevation depression T-wave inversions similar to previous EKG EKG 2. Sinus rhythm rate [address] elevation depression or T-wave inversion similar to previous EKG MDM Narrative Medical decision making narrative: The patient is having persistent chest pain he a was given a 4th nitroglycerin sublingual on a nitroglycerin drip delighted however does seem to help his chest pain the most. I he ruled out for slight dissection with CT a. I have spoken to Cardiology and hospitalist patient will be transferred to [facility]. Symptoms consistent with unstable angina. Troponin and EKG are also negative Discharge Plan Departure Patient Disposition: [facility] Clinical Impression: Unstable angina Discharge Date/Time: 04/24/20 17:28 Prescriptions: No Action (DME) Disabled Parking Permit Qty: 1 RF: 0 beclomethasone dipropionate 40 mcg/actuation HFA aerosol breath activated 1 inhalation Inhalation BID Qty: 10.6 RF: 5 meclizine 25 mg tablet 25 mg PO TID PRN (Reason: dizziness) Qty: 10 RF: 0 (DME) Glucometer Qty: 1 RF: 0 levothyroxine [Synthroid] 50 mcg tablet 50 mcg PO QAM Qty: 90 RF: 0 albuterol sulfate [Proventil HFA] 90 mcg/actuation HFA aerosol inhaler 2 puff INHALATION QID PRN (Reason: shortness of breath) Qty: 18 RF: 5 atorvastatin 40 mg tablet 40 mg PO BEDTIME Qty: 90 RF: 0 citalopram [Celexa] 40 mg tablet 40 mg PO DAILY Qty: 90 RF: 1 levothyroxine 75 mcg capsule 75 mcg PO DAILY Qty: 90 RF: 1 tamsulosin [Flomax] 0.4 mg capsule 0.4 mg PO DAILY Qty: 90 RF: 0 omeprazole 20 mg tablet,delayed release (DR/EC) 20 mg PO DAILY Qty: 90 RF: 0 (DME) lancets 100 units Qty: 1 RF: 4 clopidogrel 75 mg tablet 75 mg PO DAILY Qty: 90 RF: 0 gabapentin 300 mg capsule 900 mg PO BID Qty: 360 RF: 0 (DME) pen needle, diabetic [Comfort EZ Pen Bl[place]om] 31 gauge x 5/16 needle See Dose Instructions .ROUTE .MEDSUPPLY Qty: 100 RF: 3 (DME) Test strips 100 strip Qty: 1 RF: 10 isosorbide mononitrate 60 mg tablet extended release 24 hr 60 mg PO QAM Qty: 90 RF: 1 bupropion HCl [Wellbutrin SR] 150 mg tablet sustained-release 12 hr 150 mg PO DAILY Qty: 90 RF: 1 lisinopril 2.5 mg tablet 2.5 mg PO QAM Qty: 90 RF: 0 metoprolol tartrate 25 mg tablet 25 mg PO BID Qty: 180 RF: 0 (DME) pen needle, diabetic [Comfort EZ Pen Bl[place]om] 29 gauge x 1/2 needle See Dose Instructions .ROUTE .MEDSUPPLY Qty: 100 RF: 0 nitroglycerin 0.4 mg tablet, sublingual 0.4 mg SL ONCE Qty: 20 RF: 5 triamcinolone acetonide 0.1 % cream 1 applictn TOP DAILY Qty: 30 RF: 5 nitroglycerin 0.4 mg tablet, sublingual 0.4 mg sublingual PRN PRN (Reason: Chest Pain) RF: 0 insulin glargine U-300 conc 300 unit/mL (3 mL) insulin pen 80 unit SUBCUT BID Qty: 15 RF: 11 Novolog Flexpen U-100 Insulin 100 unit/mL (3 mL) insulin pen See Rx Instructions SUBCUT .COMPLEX Qty: 15 RF: 11 ipratropium-albuterol 0.5 mg-3 mg(2.5 mg base)/3 mL Solution For Nebulization 3 ml INH QID Qty: 360 RF: 0 Referrals: Gasper Rutherford, [Primary Care Provider] -
[2020-04-24 13:11] LABS: Add Manual Diff / Slide Review NO; Basophils Absolute Auto 0 /uL (0-100); Basophils Percent Auto 0.3 % (0-2); Eosinophils Absolute Auto 200 /uL (0-450); Eosinophils Percent Auto 1.9 % (2-4); Hematocrit 39.4 % (41-53); Hemoglobin 13.7 g/dL (13.5-17.5); Lymphocytes Absolute Auto 1600 /uL (1100-4500); Lymphocytes Percent Auto 17.8 % (25-40); Mean Corpuscular HGB Conc 34.8 % (30-36); Mean Corpuscular Hemoglobin 31.3 PG (26-34); Mean Corpuscular Volume 90.1 fL (80-100); Monocytes Absolute Auto 800 /uL (0-900); Monocytes Percent Auto 8.6 % (3-14); Neutrophils Absolute Auto 6400 /uL (1500-7000); Neutrophils Percent Auto 71.4 % (50-75); Platelet Count 219 X10^3/uL (150-400); Red Blood Cell Count 4.37 X10^6/uL (4.5-5.9); Red Cell Distribution Width 15.1 % (11.6-14.8); White Blood Cell Count 8.9 X10^3/uL (4.5-11.0)
[2020-04-24] MEDS: SODIUM CHLORIDE 0.9% 1,000 ML 150 ML IV (13:16)
[2020-04-24] MEDS: NITROGLYCERIN 0.4 MG SL TAB SL (13:22)
[2020-04-24 13:23] LABS: Alanine Aminotransferase 25 IU/L (<50); Albumin 4.1 g/dL (3.5-5.0); Albumin Globulin Ratio 1.3 (1.0-2.8); Alkaline Phosphatase 65 U/L (38-126); Aspartate Aminotransferase 32 IU/L (17-59); BUN Creatinine Ratio 17.8 (6-22); Bilirubin Total 0.5 mg/dL (0.2-1.3); Blood Urea Nitrogen 13 mg/dL (9-20); Carbon Dioxide 26 mmol/L (22-32); Chloride 105 mmol/L (98-107); Creatine Kinase 325 U/L (55-170); Estimated Glomerular Filt Rate > 60.0 mL/min (>60); Globulin 3.2 g/dL (1.7-4.1); Glucose 184 mg/dL (80-110); HEMOLYSIS < 15 (0-50); Lipase 152 U/L (23-300); Potassium 4.2 mmol/L (3.4-5.1); Sodium 137 mmol/L (137-145); Total Protein 7.3 g/dL (6.3-8.2)
[2020-04-24 13:34] LABS: Troponin I < 0.012 ng/mL (0.01-0.034)
[2020-04-24 13:38] LABS: CKMB % Relative Index 1.3 % (1.5-5.0); Creatine Kinase MB 4.38 ng/mL (<2.37)
[2020-04-24] MEDS: NITROGLYCERIN 50 MG/250 ML INFUS..BTL IV (13:42)
[2020-04-24] MEDS: MORPHINE 2 MG/ML INJ IV (14:00)
--- NOTE | 2020-04-24 14:09 | PC.NURSE ---
reports pain at a 2/10 now
--- NOTE | 2020-04-24 14:26 | DI.CT.S_ITS ---
PROCEDURE: CT ANGIO CHEST ABDOMEN PELVIS INDICATIONS: persistant chest pain TECHNIQUE: Precontrast 5 mm thick sections acquired from the lung apices to the iliac crests. After the administration of intravenous contrast, 2.5 mm thick sections again acquired from the lung apices to the iliac crests. Maximum intensity projection (MIP) oblique sagittal and coronal reformats were then acquired. For radiation dose reduction, the following was used: automated exposure control. COMPARISON: [facility], CT, ABDOMEN/PELVIS WITH CONTRAST, 11/04/2015, 20:49. [facility], CT, CT ANGIO CHEST ABDOMEN, 12/08/2019, 7:24. FINDINGS: Image quality: Excellent. AORTA: No areas of hemodynamically significant stenosis, vascular occlusion, aneurysmal dilation or dissection is identified. CHEST: Lungs and pleura: No acute airspace opacities. No pleural effusions or pneumothorax. Central and peripheral airways are patent and normal in caliber. Mediastinum: Heart size is normal. No pericardial effusion. No mediastinal or hilar adenopathy by size criteria. Central pulmonary arteries are normal in size. Esophagus is normal in caliber. No hiatal hernias. Bones and chest wall: No axillary adenopathy by size criteria. Thyroid gland is unremarkable. No suspicious bony lesions. No vertebral body compression fractures. ABDOMEN: Vasculature: Celiac trunk and mesenteric arteries are patent. Renal arteries are also patent. Solid organs: Liver is normal in size and enhancement. Gallbladder is unremarkable as. Biliary system is non dilated. Pancreas enhances normally. Spleen is normal in size and enhancement. No adrenal nodules. Both kidneys are normal in size and enhancement, without hydronephrosis. Peritoneum and bowel: No free fluid or air. Bowel loops are nonobstructed. Significant colonic diverticulosis present within the left colon. There is prominent thickening within the midportion of the sigmoid colon, which has been present since 2016, although appearing mildly more prominent. Nodes and vessels: No retroperitoneal or mesenteric adenopathy by size criteria. Inferior vena cava is normal in morphology. Miscellaneous: No ventral hernias. PELVIS: Genitourinary: Bladder wall thickness is normal. Miscellaneous: No inguinal hernias or adenopathy. No ventral hernias. Bones: No suspicious bony lesions. No vertebral body compression fractures. IMPRESSION: 1. No evidence of aortic dissection, aneurysmal dilation of hemodynamically significant stenosis. 2. Significant left colonic diverticulosis. There has been progressive thickening of the sigmoid colon since 2016. While this could be secondary to repeated episodes of active inflammation, recommend followup colonoscopy to exclude presence of underlying mass lesion. No current surrounding inflammatory change to suggest active colitis. Dictated by: Viri Jacobsen M.D. on 04/24/2020 at 16:07 Approved by: Viri Jacobsen M.D. on 04/24/2020 at 16:11
[2020-04-24] MEDS: HYDROMORPHONE 1 MG INJ IV ×2 (15:04→16:59)
[2020-04-24] MEDS: ONDANSETRON 4 MG/2 ML INJ IV (15:33)
[2020-04-24 17:43] LABS: Troponin I < 0.012 ng/mL (0.01-0.034)
== END 2020-04-24 17:28 | disposition short-term general hospital (02) ==
PROVIDERS: Emergency Provider Emergency Medicine; PCP Family Medicine
DX: I20.0 Unstable angina (principal); I10 Essential (primary) hypertension; J44.9 Chronic obstructive pulmonary disease, unspecified; R06.02 Shortness of breath
CPT/HCPCS: 36415; 71045; 71275; 74174; 80053; 82550; 82553; 83690; 84484; 85025; 93005; 96365; 96375; 96376; 99285; J1170; J2270; J2405

== ENCOUNTER → 2020-07-25 10:04 | Outpatient (CLI) | payer OTHER, SELFPAY ==
[2020-01-19 11:05] VITALS: BMI 32.3
--- NOTE | 2020-07-25 10:06 | DI.RAD.S_ITS ---
PROCEDURE: XR LUMBAR SPINE MIN 4V INDICATIONS: low back pain TECHNIQUE: 5 views of the lumbar spine were acquired. COMPARISON: None. FINDINGS: Bones: 5 nonrib-bearing vertebrae are present. There is trace L1-L2 retrolisthesis.. No vertebral body compression fractures. No suspicious bony lesions. Mild to moderate L1-L2, L2-L3, L3-L4, L4-L5 and L5-S1 degenerative disc disease. Mild L4-L5 and L5-S1 facet arthropathy. Soft tissues: Overlying bowel gas pattern is normal. No suspicious soft tissue calcifications. Oblique images: No pars defects. IMPRESSION: 1. Multilevel degenerative disc disease. 2. Multilevel facet arthropathy. 3. No fracture. No acute osseous lesion. If symptoms and/or clinical suspicion for pathology persists, evaluation with MRI may be helpful for further assessment. Dictated by: Cesia Cooper MD, PhD on 07/25/2020 at 16:26 Approved by: Cesia Cooper MD, PhD on 07/25/2020 at 16:27
== END ==
PROVIDERS: PCP Family Medicine; Referring Provider Family Medicine; Visit Provider Family Medicine
DX: M54.5 Low back pain (principal); M51.36 Other intervertebral disc degeneration, lumbar region; M51.37 Other intervertebral disc degeneration, lumbosacral region; M47.816 Spondylosis without myelopathy or radiculopathy, lumbar region; M47.817 Spondylosis without myelopathy or radiculopathy, lumbosacral region
CPT/HCPCS: 72110

== ENCOUNTER → 2020-08-22 10:19 | Outpatient (CLI) | payer OTHER, SELFPAY ==
[2020-01-19 11:05] VITALS: BMI 32.3
[2020-08-22 12:14] LABS: Hemoglobin A1C% w Est Avg Glu 9.1 % (4.0-6.0)
[2020-08-22 12:20] LABS: Creatinine Urine Random 102.2 mg/dL
[2020-08-22 12:53] LABS: Prostate Specific Antigen Scrn 0.189 ng/mL (0.1-4.0)
[2020-08-22 13:21] LABS: Microalbumi Creatinin Ratio Ur 4119.3 ug/mg CR (<30)
[2020-08-22 13:22] LABS: Free T4, Direct Thyroxine 0.77 ng/dL (0.78-2.19)
--- NOTE | 2020-08-22 15:20 | DI.RAD.S_ITS ---
PROCEDURE: XR CERVICAL SPINE 2V OR 3V INDICATIONS: Neck Pain TECHNIQUE: 4 view(s) of the cervical spine were acquired. COMPARISON: None. FINDINGS: Bones: No fracture. Reversal of the normal cervical lordosis. Multilevel degenerative endplate sclerosis and spurring. Diffuse facet arthropathy. Moderate diffuse narrowing of the cervical disc spaces. Soft tissues: No prevertebral soft tissue swelling. IMPRESSION: Cervical spondylosis and reversal of the normal lordotic curvature Facet arthropathy Dictated by: Jarred Topete M.D. on 08/22/2020 at 16:40 Approved by: Jarred Topete M.D. on 08/22/2020 at 16:42
== END ==
PROVIDERS: PCP Family Medicine; Referring Provider Family Medicine; Visit Provider Family Medicine
DX: E11.9 Type 2 diabetes mellitus without complications (principal); I10 Essential (primary) hypertension; I50.21 Acute systolic (congestive) heart failure; Z12.11 Encounter for screening for malignant neoplasm of colon; E03.9 Hypothyroidism, unspecified; M54.2 Cervicalgia; Z12.5 Encounter for screening for malignant neoplasm of prostate
CPT/HCPCS: 36415; 72040; 82043; 82570; 83036; 84439; 84443; G0103

== ENCOUNTER → 2020-12-20 09:57 | Outpatient (CLI) | payer MEDICARE, SELFPAY ==
[2020-01-19 11:05] VITALS: BMI 32.3
[2020-12-20 11:07] LABS: Hemoglobin A1C% w Est Avg Glu 8.2 % (4.0-6.0)
[2020-12-20 11:12] LABS: Alanine Aminotransferase 62 IU/L (<50); Albumin 4.2 g/dL (3.5-5.0); Albumin Globulin Ratio 1.2 (1.0-2.8); Alkaline Phosphatase 103 U/L (38-126); Aspartate Aminotransferase 43 IU/L (17-59); BUN Creatinine Ratio 20.7 (6-22); Bilirubin Total 0.6 mg/dL (0.2-1.3); Blood Urea Nitrogen 19 mg/dL (9-20); Calcium 9.2 mg/dL (8.4-10.2); Carbon Dioxide 32 mmol/L (22-32); Chloride 104 mmol/L (98-107); Estimated Glomerular Filt Rate > 60.0 mL/min (>60); Globulin 3.5 g/dL (1.7-4.1); Glucose 161 mg/dL (80-110); HEMOLYSIS < 15 (0-50); Potassium 4.1 mmol/L (3.4-5.1); Sodium 138 mmol/L (137-145); Total Protein 7.7 g/dL (6.3-8.2)
[2020-12-20 11:13] LABS: Creatinine Urine Random 156.9 mg/dL
[2020-12-20 11:27] LABS: Free T4, Direct Thyroxine 1.11 ng/dL (0.78-2.19)
[2020-12-20 11:41] LABS: Thyroid Stimulating Hormone 0.958 uIU/mL (0.47-4.68)
[2020-12-20 11:46] LABS: Microalbumi Creatinin Ratio Ur 2058.6 ug/mg CR (<30)
== END ==
PROVIDERS: PCP Family Medicine; Referring Provider Family Medicine; Visit Provider Family Medicine
DX: E03.9 Hypothyroidism, unspecified (principal); E11.59 Type 2 diabetes mellitus with other circulatory complications; M54.2 Cervicalgia; Z79.4 Long term (current) use of insulin
CPT/HCPCS: 36415; 80053; 82043; 82570; 83036; 84439; 84443

== ENCOUNTER → 2020-12-27 18:10 | Outpatient (CLI) | payer MEDICARE, SELFPAY ==
[2020-01-19 11:05] VITALS: BMI 32.3
--- NOTE | 2020-12-27 18:11 | DI.MRI.S_ITS ---
PROCEDURE: MR CERVICAL SPINE WO CON INDICATIONS: persistent neck pain, hx spondylosysis TECHNIQUE: Noncontrast sagittal T1 spin echo and T2 fast spin echo, sagittal STIR, foraminal oblique sagittal T2 fast spin echo, and axial gradient echo or T2 fast spin echo through the cervical spine. COMPARISON: None. FINDINGS: Image quality: Excellent. Alignment and Curvature: Straightening of the normal lordotic curvature. Trace retrolisthesis of C4 on C5, C5 on C6 and C6 on C7. Bone Marrow: No fracture. Multilevel degenerative endplate sclerosis and spurring. Diffuse facet arthropathy. Spinal Cord: Visualized spinal cord has normal size and signal. No cerebellar tonsillar herniation. Paraspinous Soft Tissues: No paravertebral masses. Prevertebral soft tissues are normal in thickness. C2-C3: Moderate canal narrowing. Moderate right foraminal stenosis with nerve root compression. Mild left foraminal narrowing. C3-C4: Moderate canal narrowing. Moderate right foraminal stenosis, and mild left foraminal narrowing. C4-C5: Moderate canal narrowing. Severe right foraminal stenosis with nerve root compression. Mild left foraminal narrowing. C5-C6: [id number] canal narrowing. Severe right foraminal stenosis with nerve root compression. Moderate left foraminal narrowing with nerve root compression. C6-C7: Mild canal narrowing, although mildly asymmetric left greater than right. Moderate foraminal stenosis with slight nerve root compression. Moderate left foraminal narrowing. C7-T1: Mild canal narrowing. No foraminal stenosis. IMPRESSION: Multilevel spondylolisthesis as above. Diffuse bilateral foraminal stenoses as detailed above by spinal level. Multilevel moderate canal narrowing, most notably from C2-C5. Dictated by: Jarred Topete M.D. on 12/28/2020 at 9:53 Approved by: Jarred Topete M.D. on 12/28/2020 at 10:10
== END ==
PROVIDERS: PCP Family Medicine; Referring Provider Family Medicine; Visit Provider Family Medicine
DX: M43.12 Spondylolisthesis, cervical region (principal); M48.02 Spinal stenosis, cervical region; M54.2 Cervicalgia
CPT/HCPCS: 72141

== ENCOUNTER 2021-03-22 21:33 | Emergency (ER) | payer MEDICARE, SELFPAY ==
[2021-02-25 15:36] VITALS: BMI 32.3
[2021-03-22] VITALS (9 sets, daily range): BP systolic 135–184; BP diastolic 65–90; PULSE 59–67; RESP 13–26; TEMP 37; O2SAT 88–94; BMI 35.5
--- NOTE | 2021-03-22 21:37 | DI.RAD.S_ITS ---
PROCEDURE: XR CHEST 1V INDICATIONS: short of breath, chest pain TECHNIQUE: One view of the chest was acquired. COMPARISON: [facility], CT, CT CHEST ABD PEL W CON, 03/22/2021, 23:35. [facility], CR, XR CHEST 1V, 04/24/2020, 11:56. [facility], CR, XR CHEST 1 VIEW, 02/18/2021, 0:20. FINDINGS: Surgical changes and devices: None. Lungs and pleura: Low lung volumes are noted. This causes a crowded appearance to the lung markings and limits evaluation. Interstitial prominence is seen throughout. Mediastinum: Mediastinal contours appear normal. Heart size is near the upper limits of normal. Bones and chest wall: No suspicious bony lesions. Overlying soft tissues appear unremarkable. IMPRESSION: Interstitial prominence is seen throughout. The interstitial prominence is nonspecific, yet may be related to pulmonary edema. Low lung volumes. Note: No significant discrepancy from the preliminary report. Dictated by: Nathan Doyle M.D. on 03/23/2021 at 9:24 Approved by: Nathan Doyle M.D. on 03/23/2021 at 9:25
--- NOTE | 2021-03-22 21:49 | DI.US.S_ITS ---
PROCEDURE: US ABDOMEN LIMITED INDICATIONS: PAIN, SWELLING, WORSE ASCITES TECHNIQUE: Real-time focused scanning was performed of the abdomen, with image documentation. COMPARISON: [facility], CT, CT CHEST ABD PEL W CON, 03/22/2021, 23:35. [facility], CR, XR CHEST 1V, 03/22/2021, 22:06. [facility], US, US ABDOMEN COMPLETE, 03/08/2019, 9:29. FINDINGS: The liver demonstrates increased size. The liver demonstrates generalized moderately increased echogenicity. This decreases ultrasound sensitivity for detection of hepatic masses. The hepatic vasculature is not well seen. No findings of gallstones or sludge are seen. The gallbladder wall is not thickened, measuring 3 mm or less. No specific pericholecystic fluid is seen. The sonographic Alexandre sign is negative. The biliary tree and pancreas are not well seen. No ascites is seen. This study is limited by body habitus and bowel gas. IMPRESSION: Prominent, fatty liver. No ascites is seen. Unremarkable gallbladder. Note: No significant discrepancy from the preliminary report. Dictated by: Nathan Doyle M.D. on 03/23/2021 at 9:25 Approved by: Nathan Doyle M.D. on 03/23/2021 at 9:27
[2021-03-22 21:58] LABS: Add Manual Diff / Slide Review NO; Basophils Absolute Auto 0 /uL (0-100); Basophils Percent Auto 0.2 % (0-2); Eosinophils Absolute Auto 200 /uL (0-450); Eosinophils Percent Auto 1.8 % (2-4); Hematocrit 39.2 % (41-53); Hemoglobin 13.3 g/dL (13.5-17.5); Lymphocytes Absolute Auto 1400 /uL (1100-4500); Mean Corpuscular HGB Conc 33.8 % (30-36); Mean Corpuscular Hemoglobin 32.5 PG (26-34); Mean Corpuscular Volume 96.1 fL (80-100); Monocytes Absolute Auto 600 /uL (0-900); Monocytes Percent Auto 7.4 % (3-14); Neutrophils Absolute Auto 6200 /uL (1500-7000); Neutrophils Percent Auto 73.6 % (50-75); Platelet Count 199 X10^3/uL (150-400); Red Blood Cell Count 4.09 X10^6/uL (4.5-5.9); Red Cell Distribution Width 13.9 % (11.6-14.8); White Blood Cell Count 8.4 X10^3/uL (4.5-11.0)
[2021-03-22 22:03] LABS: INR 1.1 (0.9-1.3); Prothrombin Time 12.1 SECONDS (10.1-12.7)
[2021-03-22 22:04] LABS: Lactate (Lactic Acid) 1.4 mmol/L (0.7-2.1)
[2021-03-22 22:06] LABS: Alanine Aminotransferase 54 IU/L (<50); Albumin 3.9 g/dL (3.5-5.0); Albumin Globulin Ratio 1.3 (1.0-2.8); Alkaline Phosphatase 83 U/L (38-126); Aspartate Aminotransferase 46 IU/L (17-59); BUN Creatinine Ratio 22.9 (6-22); Bilirubin Total 0.3 mg/dL (0.2-1.3); Blood Urea Nitrogen 16 mg/dL (9-20); Calcium 8.9 mg/dL (8.4-10.2); Carbon Dioxide 29 mmol/L (22-32); Chloride 103 mmol/L (98-107); Estimated Glomerular Filt Rate > 60.0 mL/min (>60); Globulin 3.1 g/dL (1.7-4.1); Glucose 287 mg/dL (80-110); HEMOLYSIS 15 (0-50); Lipase 523 U/L (23-300); Magnesium 1.7 mg/dL (1.6-2.3); Potassium 4.3 mmol/L (3.4-5.1); Sodium 139 mmol/L (137-145)
[2021-03-22 22:17] LABS: NT-proBNP (BNP-Adult 18+) 523 pg/mL (<125); Troponin I < 0.012 ng/mL (0.01-0.034)
--- NOTE | 2021-03-22 22:59 | PC.NURSE ---
Active,alert,curious,not crying,appears in no pain.
[2021-03-22 23:06] LABS: COVID19 - ADMIT (NP swab/PCR) Negative (Negative)
--- NOTE | 2021-03-22 23:21 | DI.CT.S_ITS ---
PROCEDURE: CT CHEST ABD PEL W CON INDICATIONS: short of breath, severe abdominal pain TECHNIQUE: After the administration of intravenous contrast, 5 mm thick sections acquired from the lung apices to the symphysis. 5 mm coronal and sagittal reformats were performed, with additional 7 mm MIP reformats through the lungs. For radiation dose reduction, the following was used: automated exposure control, adjustment of mA and/or kV according to patient size. COMPARISON: [facility], CT, CT ABDOMEN PELVIS W CON, 01/10/2020, 22:37. [facility], CR, XR CHEST 1V, 03/22/2021, 22:06. [facility], US, US ABDOMEN LIMITED, 03/22/2021, 22:39. [facility], CT, CT ANGIO CHEST ABDOMEN PELVIS, 04/24/2020, 14:29. FINDINGS: Image quality: Excellent. CHEST: Lungs and pleura: Small bilateral pleural effusions are seen. No pneumothorax. Central and peripheral airways appear patent and normal in caliber. Mediastinum: Heart size is normal. No pericardial effusion. There is an enlarged subcarinal lymph node seen measuring 12 x 19 mm. Borderline prominent mediastinal lymph nodes are seen elsewhere. Prominent coronary artery calcification is seen. Thoracic aorta and central pulmonary arteries are normal in size. Esophagus is normal in caliber. No hiatal hernia. Chest wall: No axillary or supraclavicular adenopathy by size criteria. Thyroid gland is small in size. ABDOMEN: Solid organs: Liver is normal in size and enhancement. Diffuse fatty liver infiltration is noted. Gallbladder demonstrates no significant abnormality. Biliary system is non dilated. Pancreas enhances normally. Spleen is normal in size and enhancement. No adrenal nodules. Kidneys demonstrate normal size and enhancement, without hydronephrosis. Peritoneum and bowel: Sigmoid wall thickening is seen, with prominent diverticular formation. Minimal surrounding inflammatory changes are seen. No free air or significant free fluid can be seen. No dilated loops of small bowel are seen. Nodes and vessels: No retroperitoneal or mesenteric adenopathy by size criteria. Aorta and inferior vena cava are normal in size. Atherosclerotic calcification is noted. Miscellaneous: No ventral hernias. PELVIS: Genitourinary: Bladder wall thickness is normal. Miscellaneous: No inguinal hernias or adenopathy. Bones: No suspicious bony lesions. No vertebral body compression fractures. Mild dextroconvex scoliotic curvature is seen. Age-appropriate bony degenerative changes are seen. IMPRESSION: Small bilateral pleural effusions. Mildly enlarged subcarinal lymph node, with borderline prominent lymph nodes seen elsewhere. Sigmoid diverticulosis with associated thickening. Chronic diverticulitis is suspected. No findings of perforation or abscess can be seen. When clinically appropriate (following adequate treatment of the patient's current clinical episode) a colonoscopy is recommended for further evaluation for a potential underlying mass (if not already recently done). Incidental note is made of: Prominent coronary artery calcification Fatty liver infiltration Mild levoconvex scoliotic curvature Note: No significant discrepancy from the preliminary report. Dictated by: Nathan Doyle M.D. on 03/23/2021 at 9:29 Approved by: Nathan Doyle M.D. on 03/23/2021 at 9:34
--- NOTE | 2021-03-22 23:30 | ED.ABDPAIN ---
HPI - Abdominal Pain General Chief Complaint: Abdominal Pain Stated Complaint: L Sided Chest pain, SOB Time Seen by Provider: 03/22/21 21:33 Source: patient and EMS Mode of arrival: EMS Limitations: no limitations History of Present Illness HPI narrative: 65-year-old male former smoker with extensive medical history including CHF, COPD, type 2 diabetes, liver failure presents with the chief complaint of some increasing shortness of breath over the past days if not weeks as well as some right-sided abdominal pain. He states that his belly has been slowly getting larger but he denies any nausea, vomiting or diarrhea. He states that he has not had his belly tapped in a few years. He denies any change in bowel habits. He states that he has had this increasing shortness of breath but without fever or chills. He states that he has trouble breathing when he lays flat and more so when he exerts himself. Weight gain or swelling in his legs MD complaint: abdominal pain Onset (ago): day(s) Pain Consistency: intermittent Location: R flank Severity: moderate Quality: cramping, stabbing and aching Relieving factors: rest Exacerbating factors: movement Associated symptoms: other Related Data Home Medications Medication Instructions Recorded Confirmed nitroglycerin 0.4 mg sublingual 0.4 mg SUBLINGUAL PRN PRN tab 12/21/19 11/19/20 tablet Previous Rx's Medication Instructions Recorded ipratropium-albuterol 3 ml INH QID #360 ml 03/12/19 triamcinolone acetonide 0.1 % 1 applictn TOP DAILY #30 gram 10/10/19 topical cream meclizine 25 mg tablet 25 mg PO TID PRN #10 tab 10/12/19 omeprazole 20 mg tablet,delayed 20 mg PO DAILY #90 tab 02/17/20 release pen needle, diabetic 31 gauge x #100 each 02/27/20/16 Test strips #1 each 03/22/20 bupropion HCl 150 mg tablet,12 hr 150 mg PO DAILY #90 each 04/24/20 sustained-release pen needle, diabetic 29 gauge x #100 each 04/24/20 1/2 insulin aspart U-100 100 unit/mL See Rx Instructions SUBCUT 05/01/20 (3 mL) subcutaneous pen .COMPLEX #15 ml mupirocin 2 % topical ointment 1 applictn TOP BID #30 gram 05/16/20 tamsulosin 0.4 mg capsule 0.4 mg PO DAILY #90 cap 05/28/20 albuterol sulfate 90 mcg/actuation 2 puff INHALATION QID PRN #18 gram 05/29/20 aerosol inhaler beclomethasone dipropionate 40 1 inhalation INHALATION BID #10.6 05/29/20 mcg/actuation HFA breath activated gram aerosol atorvastatin 80 mg tablet 80 mg PO DAILY #90 tab 08/22/20 citalopram 40 mg tablet 40 mg PO DAILY #90 tab 08/22/20 clopidogrel 75 mg tablet 75 mg PO DAILY #90 tab 08/22/20 lisinopril 2.5 mg tablet 2.5 mg PO QAM #90 tab 08/22/20 metoprolol tartrate 50 mg tablet 50 mg PO BID #180 tab 08/22/20 lorazepam 1 mg tablet 1 mg PO BID PRN #5 tab 09/03/20 insulin glargine U-300 conc 300 50 unit SUBCUT BID #15 ml 11/19/20 unit/mL (3 mL) subcutaneous pen blood-glucose meter #1 ea 01/11/21 tizanidine 4 mg tablet 4 mg PO TID PRN #90 tab 02/13/21 Disabled Parking Permit #1 ea 02/15/21 blood sugar diagnostic #100 ea 03/01/21 lancets 33 gauge #100 ea 03/01/21 gabapentin 300 mg capsule 900 mg PO BID #540 cap 03/13/21 isosorbide mononitrate 60 mg 60 mg PO QAM #90 tab 03/15/21 tablet,extended release 24 hr levothyroxine 125 mcg tablet 125 mcg PO DAILY #90 tab 03/15/21 oxycodone-acetaminophen 5 mg-325 1 tab PO BID PRN #60 tab 03/18/21 mg tablet amoxicillin-pot clavulanate 1 tab PO BID #20 tab 03/23/21 [Augmentin] oxycodone 5 mg PO Q4-6H PRN #10 tab 03/23/21 Allergies Allergy/AdvReac Type Severity Reaction Status Date / Time adhesive Allergy Mild REDNESS/ITC Verified 11/19/20 14:17 HINESS morphine Allergy Verified 03/22/21 22:00 Review of Systems Constitutional Constitutional: Denies chills, Denies fatigue, Denies fever(s), Denies frequent falls, Denies lethargy and Denies weakness Eyes Eyes: Denies change in vision, Denies eye discharge, Denies irritation and Denies loss of vision ENT Ears, Nose, Mouth, and Throat: Denies change in voice, Denies dizziness, Denies neck pain, Denies sore throat and Denies throat swelling Cardiovascular Cardiovascular: Denies chest pain, Denies irregular heart rhythm, Denies lightheadedness, Denies palpitations, Reports dyspnea, Denies dyspnea on exertion and Denies orthopnea Respiratory Respiratory: Denies cough, Reports dyspnea, Denies dyspnea on exertion and Denies wheezing Gastrointestinal Gastrointestinal: Reports abdominal pain, Denies change in bowel habits, Denies diarrhea, Denies nausea and Denies vomiting Musculoskeletal Musculoskeletal: Denies neck pain and Denies numbness Integumentary/Breasts Skin/Breast: Denies pruritus, Denies erythema, Denies rash and Denies wounds Neurologic Neurologic: Denies behavioral changes, Denies confusion, Denies dizziness, Denies frequent falls, Denies loss of vision, Denies numbness and Denies weakness Psychiatric Psychiatric: Denies anxiety, Denies behavioral changes, Denies confusion, Denies depression, Denies homicidal ideation and Denies suicidal ideation Endocrine Endocrine: Denies fatigue, Denies flushing and Denies palpitations Hematologic/Lymphatic Hematologic/Lymphatic: Denies easy bruising Allergic/Immunologic Allergic/Immunologic: Denies urticaria, Denies throat swelling and Denies wheezing Patient History Medical History (Updated 03/23/21 @ 01:07 by Azeem Del Real DO) Chicken pox (7) Chickenpox (7) Chronic cough COPD (chronic obstructive pulmonary disease) Coronary artery disease (2006) Depression (2009) Diabetes (1994) Eczema Foot pain GERD (gastroesophageal reflux disease) (2012) Gout History of recurrent TIAs Hyperlipidemia Hypertension Hypothyroidism Kidney disease (2009) Measles (6) Measles (1956) Mumps (9) Mumps (9) Neuropathy Obstructive sleep apnea Shoulder pain Status post myocardial infarction Strain of muscle of right groin region (03/30/18) Type 2 diabetes mellitus Well adult exam Surgical History Anesthesia History of heart artery stent (2006) History of heart artery stent (2010) Hx of shoulder surgery (2005) Family History Brother Age: 66 Diabetes mellitus Hyperlipidemia Mother Heart disease Hypertension Hyperlipidemia Diabetes mellitus Grandmother Diabetes mellitus Brother No problems noted. Sister Breast cancer Social History household members: family, children and other Smoking Status: Current every day smoker Tobacco: How many years used: 45 alcohol intake: current Smoking Status: Current every day smoker alcohol intake frequency: 3 or more drinks per day Substance Use Type: marijuana Exam Narrative Exam Narrative: GENERAL: [65] year old patient appears stated age. Well-nourished, well-developed patient, in mild distress. HEAD: Atraumatic. Normocephalic. EYES: Pupils equal round and reactive. Extraocular motions intact. No scleral icterus. No injection or drainage. ENT: Nose without bleeding, purulent drainage. Throat without erythema, tonsillar hypertrophy or exudate. Airway patent. NECK: Trachea midline. Non tender CARDIOVASCULAR: Regular rate and rhythm without murmurs, gallops, or rubs. RESPIRATORY: No significant work of breathing Faint crackles bilateral bases with prolonged expiratory phase and decreased breath sounds GASTROINTESTINAL: Abdomen distended, protuberant, no significant reproducible pain on palpation EXTREMITIES: No edema or joint tenderness. BACK: Nontender without deformity or crepitance. No flank tenderness. NEURO: AOx3. 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) Stat 03/22/21 21:56 Blood Culture Stat 03/22/21 23:21 CT chest abd pel w con Stat Discontinued Medications Hydromorphone HCl (Hydromorphone 0.5 Mg Inj) 0.5 mg IV NOW ONE Stop: 03/22/21 23:22 Last Admin: 03/22/21 23:45 Dose: 0.5 mg Documented by: PIPER Oxycodone/Acetaminophen (Oxycodone/Apap 5/325 Prepack) 1 bottle MISC SEEINSTR ONE Stop: 03/23/21 01:12 Last Admin: 03/23/21 01:22 Dose: 1 bottle Documented by: PIPER Vital Signs Vital signs: Vital Signs - 8 hr 03/22/21 23:00 03/22/21 23:30 03/22/21 23:33 Pulse Rate 60 59 L 60 Respiratory Rate 26 H 17 23 Blood Pressure 135/65 Pulse Oximetry 94 94 89 L 03/22/21 23:51 03/23/21 00:00 03/23/21 00:30 Pulse Rate 67 63 64 Respiratory Rate 13 19 15 Blood Pressure 175/74 H 145/67 H Pulse Oximetry 92 91 03/23/21 03:54 Pulse Rate 68 Respiratory Rate 16 Blood Pressure 140/60 Pulse Oximetry 95 MDM - Abdominal Pain Lab Data Result diagrams: 03/22/21 21:45 03/22/21 21:45 Labs: Lab Results 03/22/21 03/22/21 03/22/21 Range/Units 21:45 21:45 21:45 WBC 8.4 (4.5-11.0) X10^3/uL RBC 4.09 L (4.5-5.9) X10^6/uL Hgb 13.3 L (13.5-17.5) g/dL Hct 39.2 L (41-53) % MCV 96.1 (80-100) fL MCH 32.5 (26-34) PG MCHC 33.8 (30-36) % RDW 13.9 (11.6-14.8) % Plt Count 199 (150-400) X10^3/uL Neut % (Auto) 73.6 (50-75) % Lymph % (Auto) 17.0 L (25-40) % Cascade % (Auto) 7.4 (3-14) % Eos % (Auto) 1.8 L (2-4) % Baso % (Auto) 0.2 (0-2) % Neut # (Auto) 6200 (2099-4181) /uL Lymph # (Auto) 1400 (5261-0596) /uL Cascade # (Auto) 600 (0-900) /uL Eos # (Auto) 200 (0-450) /uL Baso # (Auto) 0 (0-100) /uL PT 12.1 (10.1-12.7) SECONDS INR 1.1 (0.9-1.3) Sodium 139 (137-145) mmol/L Potassium 4.3 (3.4-5.1) mmol/L Chloride 103 (98-107) mmol/L Carbon Dioxide 29 (22-32) mmol/L BUN 16 (9-20) mg/dL Creatinine 0.70 (0.66-1.25) mg/dL Estimated GFR > 60.0 (>60) mL/min BUN/Creatinine Ratio 22.9 H (6-22) Glucose 287 H (80-110) mg/dL Lactate (0.7-2.1) mmol/L Calcium 8.9 (8.4-10.2) mg/dL Magnesium 1.7 (1.6-2.3) mg/dL Total Bilirubin 0.3 (0.2-1.3) mg/dL AST 46 (17-59) IU/L ALT 54 H (<50) IU/L Alkaline Phosphatase 83 (38-126) U/L Troponin I < 0.012 (0.01-0.034) ng/mL NT-Pro-B Natriuret Pep 523 H (<125) pg/mL Total Protein 7.0 (6.3-8.2) g/dL Albumin 3.9 (3.5-5.0) g/dL Globulin 3.1 (1.7-4.1) g/dL Albumin/Globulin Ratio 1.3 (1.0-2.8) Lipase 523 H (23-300) U/L SARS-CoV-2 (PCR) (Negative) 03/22/21 03/22/21 Range/Units 21:45 21:55 WBC (4.5-11.0) X10^3/uL RBC (4.5-5.9) X10^6/uL Hgb (13.5-17.5) g/dL Hct (41-53) % MCV (80-100) fL MCH (26-34) PG MCHC (30-36) % RDW (11.6-14.8) % Plt Count (150-400) X10^3/uL Neut % (Auto) (50-75) % Lymph % (Auto) (25-40) % Cascade % (Auto) (3-14) % Eos % (Auto) (2-4) % Baso % (Auto) (0-2) % Neut # (Auto) (4109-0240) /uL Lymph # (Auto) (2823-7253) /uL Cascade # (Auto) (0-900) /uL Eos # (Auto) (0-450) /uL Baso # (Auto) (0-100) /uL PT (10.1-12.7) SECONDS INR (0.9-1.3) Sodium (137-145) mmol/L Potassium (3.4-5.1) mmol/L Chloride (98-107) mmol/L Carbon Dioxide (22-32) mmol/L BUN (9-20) mg/dL Creatinine (0.66-1.25) mg/dL Estimated GFR (>60) mL/min BUN/Creatinine Ratio (6-22) Glucose (80-110) mg/dL Lactate 1.4 (0.7-2.1) mmol/L Calcium (8.4-10.2) mg/dL Magnesium (1.6-2.3) mg/dL Total Bilirubin (0.2-1.3) mg/dL AST (17-59) IU/L ALT (<50) IU/L Alkaline Phosphatase (38-126) U/L Troponin I (0.01-0.034) ng/mL NT-Pro-B Natriuret Pep (<125) pg/mL Total Protein (6.3-8.2) g/dL Albumin (3.5-5.0) g/dL Globulin (1.7-4.1) g/dL Albumin/Globulin Ratio (1.0-2.8) Lipase (23-300) U/L SARS-CoV-2 (PCR) Negative (Negative) Imaging Data CT scan - chest: Radiologist's Impression: Small bilateral pleural effusions. Chronic reticular markings within bilateral lungs. Some bronchial thickening involving the bronchi of the bilateral lower lobes may represent reactive airway disease or bronchitis Scattered colonic diverticulosis greatest level of sigmoid colon. Diffuse mucosal thickening at the level of the sigmoid colon likely on the basis of longstanding chronic diverticular disease MDM Narrative Medical decision making narrative: Multiple diagnoses considered in this patient with multiple chronic illnesses. Pneumonia, large pleural effusion, exacerbation of COPD considered. Patient felt significant improvement after bronchodilators prior to coming in. Imaging would demonstrate no large effusion or significant pneumonia. No significant work of breathing and no hypoxemia. Abdomen distened and concern for ascites, but no evidence of such on US. CT shows possible thickened mucosa, but largely only chronic problems. Patient resting comfortably. Will treat with pain meds and Augmentin to cover gut bk and possible early pneumonia. Return precautions given and questions answered to his apparent satisfaction. Discharge Plan Departure Patient Disposition: Home Clinical Impression: Abdominal pain Qualifiers: Abdominal location: generalized Qualified Code(s): R10.84 - Generalized abdominal pain Instructions: DI for Abdominal Pain-Adult Activity Restrictions/Additional Instructions: *You have been diagnosed with [right-sided abdominal pain. Your labs and CT scan are very reassuring.] *What to do: *Please continue to take your regular medications as directed. [ ] New medication prescriptions sent to your pharmacy: [ ] [ x] New medication written as a paper prescription [ ] No new medications given *Please follow up with your primary care provider in 2-3 days, call for an appointment. Let them know you were seen in the Emergency Department and that we ask that you be seen in follow up. We will electronically transmit a record of today's note if your PCP is in our system *If you do not have a primary care provider please contact the [facility] Resource line at [phone]. They will ask some questions about your medical history and help get you set up with a doctor in the community. *Return to Emergency Department if you should have any new, worsening or concerning symptoms, such as [fever greater than 101 F, shaking chills, worsening pain, persistent vomiting or other bothersome symptoms] Prescriptions: New amoxicillin-pot clavulanate [Augmentin] 875-125 mg tablet 1 tab PO BID Qty: 20 RF: 0 oxycodone 5 mg tablet 5 mg PO Q4-6H PRN (Reason: pain) Qty: 10 RF: 0 No Action meclizine 25 mg tablet 25 mg PO TID PRN (Reason: dizziness) Qty: 10 RF: 0 omeprazole 20 mg tablet,delayed release (DR/EC) 20 mg PO DAILY Qty: 90 RF: 0 (DME) pen needle, diabetic [Comfort EZ Pen Perrin] 31 gauge x 5/16 needle See Dose Instructions .ROUTE .MEDSUPPLY Qty: 100 RF: 3 (DME) Test strips 100 strip Qty: 1 RF: 10 bupropion HCl [Wellbutrin SR] 150 mg tablet sustained-release 12 hr 150 mg PO DAILY Qty: 90 RF: 1 (DME) pen needle, diabetic [Comfort EZ Pen Perrin] 29 gauge x 1/2 needle See Dose Instructions .ROUTE .MEDSUPPLY Qty: 100 RF: 0 tamsulosin [Flomax] 0.4 mg capsule 0.4 mg PO DAILY Qty: 90 RF: 1 albuterol sulfate [Proventil HFA] 90 mcg/actuation HFA aerosol inhaler 2 puff INHALATION QID PRN (Reason: shortness of breath) Qty: 18 RF: 5 beclomethasone dipropionate 40 mcg/actuation HFA aerosol breath activated 1 inhalation Inhalation BID Qty: 10.6 RF: 5 (DME) blood-glucose meter Kit See Rx Instructions .ROUTE .MEDSUPPLY Qty: 1 RF: 0 tizanidine 4 mg tablet 4 mg PO TID PRN (Reason: muscle spasticity) Qty: 90 RF: 1 (DME) Disabled Parking Permit See Rx Instructions .ROUTE .MEDSUPPLY Qty: 1 RF: 0 (DME) Blood Glucose Test Strip See Rx Instructions .ROUTE .MEDSUPPLY Qty: 100 RF: 6 (DME) lancets [BD Ultra Fine Lancets] 33 gauge misc See Rx Instructions .ROUTE .MEDSUPPLY Qty: 100 RF: 6 gabapentin 300 mg capsule 900 mg PO BID Qty: 540 RF: 3 isosorbide mononitrate 60 mg tablet extended release 24 hr 60 mg PO QAM Qty: 90 RF: 2 levothyroxine 125 mcg tablet 125 mcg PO DAILY Qty: 90 RF: 3 oxycodone-acetaminophen [Percocet] 5-325 mg tablet 1 tab PO BID PRN (Reason: pain) Qty: 60 RF: 0 triamcinolone acetonide 0.1 % cream 1 applictn TOP DAILY Qty: 30 RF: 5 nitroglycerin 0.4 mg tablet, sublingual 0.4 mg sublingual PRN PRN (Reason: Chest Pain) RF: 0 atorvastatin 80 mg tablet 80 mg PO DAILY Qty: 90 RF: 3 citalopram [Celexa] 40 mg tablet 40 mg PO DAILY Qty: 90 RF: 1 clopidogrel 75 mg tablet 75 mg PO DAILY Qty: 90 RF: 1 lisinopril 2.5 mg tablet 2.5 mg PO QAM Qty: 90 RF: 1 metoprolol tartrate 50 mg tablet 50 mg PO BID Qty: 180 RF: 3 lorazepam 1 mg tablet 1 mg PO BID PRN (Reason: sedation) Qty: 5 RF: 0 insulin glargine U-300 conc 300 unit/mL (3 mL) insulin pen 50 unit SUBCUT BID Qty: 15 RF: 11 mupirocin 2 % ointment 1 applictn TOP BID Qty: 30 RF: 1 Novolog Flexpen U-100 Insulin 100 unit/mL (3 mL) insulin pen See Rx Instructions SUBCUT .COMPLEX Qty: 15 RF: 11 ipratropium-albuterol 0.5 mg-3 mg(2.5 mg base)/3 mL Solution For Nebulization 3 ml INH QID Qty: 360 RF: 0 Referrals: Gasper Rutherford, [Primary Care Provider] -
[2021-03-22] MEDS: HYDROMORPHONE 0.5 MG INJ IV (23:45)
[2021-03-23] VITALS: BP 145/67; PULSE 63; RESP 19
[2021-03-23 00:30] VITALS: PULSE 64; RESP 15; O2SAT 91
[2021-03-23] MEDS: OXYCODONE/APAP 5/325 PREPACK 1 BOTTLE MISC (01:22)
[2021-03-23 03:54] VITALS: BP 140/60; PULSE 68; RESP 16; O2SAT 95
== END 2021-03-23 01:35 | disposition home or self-care (01) ==
PROVIDERS: Emergency Provider Emergency Medicine; PCP Family Medicine
DX: R10.84 Generalized abdominal pain (principal); R06.02 Shortness of breath; Z20.822 Contact with and (suspected) exposure to COVID-19; R07.9 Chest pain, unspecified
CPT/HCPCS: 36415; 71045; 71260; 74177; 76705; 80053; 83605; 83690; 83735; 83880; 84484; 85025; 85610; 87040; 87635; 93005; 93010; 96374; 99284; 99285; C9803; J1170; Q9967

== ENCOUNTER 2021-04-02 03:41 | Emergency (ER) | payer OTHER, SELFPAY ==
[2021-02-25 15:36] VITALS: BMI 32.3
[2021-04-02] VITALS (10 sets, daily range): BP systolic 126–161; BP diastolic 60–74; PULSE 60–77; RESP 14–18; TEMP 37.4; O2SAT 92–95; BMI 35.5
--- NOTE | 2021-04-02 03:52 | DI.RAD.S_ITS ---
PROCEDURE: XR CHEST 1V INDICATIONS: shortness of breath TECHNIQUE: One view of the chest was acquired. COMPARISON: [facility], , XR CHEST 1V, 03/22/2021, 22:06. FINDINGS: Surgical changes and devices: None. Lungs and pleura: Chronic interstitial prominence in bilateral lung pascual are seen unchanged from prior studies. No focal infiltrate. No pleural effusions or pneumothorax. Mediastinum: Mediastinal contours appear normal. Heart size is normal. Bones and chest wall: No suspicious bony lesions. Overlying soft tissues appear unremarkable. IMPRESSION: No acute cardiopulmonary pathology. No discrepancies from preliminary report. Dictated by: Keron Colunga M.D. on 04/02/2021 at 8:15 Approved by: Keron Colunga M.D. on 04/02/2021 at 8:16
[2021-04-02 04:01] LABS: Add Manual Diff / Slide Review NO; Basophils Absolute Auto 0 /uL (0-100); Basophils Percent Auto 0.4 % (0-2); Eosinophils Absolute Auto 100 /uL (0-450); Eosinophils Percent Auto 1.5 % (2-4); Hematocrit 36.9 % (41-53); Hemoglobin 12.6 g/dL (13.5-17.5); Lymphocytes Absolute Auto 1400 /uL (1100-4500); Lymphocytes Percent Auto 15.2 % (25-40); Mean Corpuscular HGB Conc 34.2 % (30-36); Mean Corpuscular Hemoglobin 32.7 PG (26-34); Mean Corpuscular Volume 95.8 fL (80-100); Monocytes Absolute Auto 600 /uL (0-900); Monocytes Percent Auto 6.1 % (3-14); Neutrophils Absolute Auto 7300 /uL (1500-7000); Neutrophils Percent Auto 76.8 % (50-75); Platelet Count 204 X10^3/uL (150-400); Red Blood Cell Count 3.85 X10^6/uL (4.5-5.9); Red Cell Distribution Width 14.1 % (11.6-14.8); White Blood Cell Count 9.4 X10^3/uL (4.5-11.0)
[2021-04-02 04:06] LABS: Alanine Aminotransferase 39 IU/L (<50); Albumin 3.7 g/dL (3.5-5.0); Albumin Globulin Ratio 1.2 (1.0-2.8); Alkaline Phosphatase 74 U/L (38-126); Aspartate Aminotransferase 41 IU/L (17-59); Bilirubin Total 0.3 mg/dL (0.2-1.3); Blood Urea Nitrogen 18 mg/dL (9-20); Calcium 9.1 mg/dL (8.4-10.2); Carbon Dioxide 27 mmol/L (22-32); Chloride 104 mmol/L (98-107); Estimated Glomerular Filt Rate > 60.0 mL/min (>60); Glucose 293 mg/dL (80-110); HEMOLYSIS < 15 (0-50); Lactate (Lactic Acid) 1.8 mmol/L (0.7-2.1); Potassium 4.1 mmol/L (3.4-5.1); Sodium 137 mmol/L (137-145); Total Protein 6.7 g/dL (6.3-8.2)
--- NOTE | 2021-04-02 04:15 | ED_ITS ---
HPI - SOB/Dyspnea General Chief Complaint: Shortness of Breath/Dyspnea Stated Complaint: Short of breath Time Seen by Provider: 04/02/21 03:46 Source: patient and EMS Mode of arrival: EMS Limitations: no limitations History of Present Illness HPI Narrative: Patient is a 65-year-old male with history of CHF, cirrhosis COPD type 2 diabetes liver failure presenting with shortness of breath. Patient was seen evaluated in the ED on 03/22/2021 for shortness of breath and right upper quadrant pain. He had a full workup including ultrasound chest abdomen pelvis CT and blood work. He was discharged home with abdominal pain and was started on Augmentin for possible early pneumonia due to the thickened mucosa found on CT. Patient denies any fever or chills. He has no worsening cough. Currently complaining of right upper quadrant pain. The patient says he woke up this morning and just could not breathe. He took his albuterol inhaler prior to EMS arrival and says that it helped. He has no chest pain. Related Data Home Medications Medication Instructions Recorded Confirmed nitroglycerin 0.4 mg sublingual 0.4 mg SUBLINGUAL PRN PRN tab 12/21/19 11/19/20 tablet Previous Rx's Medication Instructions Recorded ipratropium-albuterol 3 ml INH QID #360 ml 03/12/19 triamcinolone acetonide 0.1 % 1 applictn TOP DAILY #30 gram 10/10/19 topical cream meclizine 25 mg tablet 25 mg PO TID PRN #10 tab 10/12/19 omeprazole 20 mg tablet,delayed 20 mg PO DAILY #90 tab 02/17/20 release pen needle, diabetic 31 gauge x #100 each 02/27/2003/17 Test strips #1 each 03/22/20 bupropion HCl 150 mg tablet,12 hr 150 mg PO DAILY #90 each 04/24/20 sustained-release pen needle, diabetic 29 gauge x #100 each 04/24/20 1/2 insulin aspart U-100 100 unit/mL See Rx Instructions SUBCUT 05/01/20 (3 mL) subcutaneous pen .COMPLEX #15 ml mupirocin 2 % topical ointment 1 applictn TOP BID #30 gram 05/16/20 tamsulosin 0.4 mg capsule 0.4 mg PO DAILY #90 cap 05/28/20 albuterol sulfate 90 mcg/actuation 2 puff INHALATION QID PRN #18 gram 05/29/20 aerosol inhaler beclomethasone dipropionate 40 1 inhalation INHALATION BID #10.6 05/29/20 mcg/actuation HFA breath activated gram aerosol atorvastatin 80 mg tablet 80 mg PO DAILY #90 tab 08/22/20 citalopram 40 mg tablet 40 mg PO DAILY #90 tab 08/22/20 clopidogrel 75 mg tablet 75 mg PO DAILY #90 tab 08/22/20 lisinopril 2.5 mg tablet 2.5 mg PO QAM #90 tab 08/22/20 metoprolol tartrate 50 mg tablet 50 mg PO BID #180 tab 08/22/20 lorazepam 1 mg tablet 1 mg PO BID PRN #5 tab 09/03/20 insulin glargine U-300 conc 300 50 unit SUBCUT BID #15 ml 11/19/20 unit/mL (3 mL) subcutaneous pen blood-glucose meter #1 ea 01/11/21 tizanidine 4 mg tablet 4 mg PO TID PRN #90 tab 02/13/21 Disabled Parking Permit #1 ea 02/15/21 blood sugar diagnostic #100 ea 03/01/21 lancets 33 gauge #100 ea 03/01/21 gabapentin 300 mg capsule 900 mg PO BID #540 cap 03/13/21 isosorbide mononitrate 60 mg 60 mg PO QAM #90 tab 03/15/21 tablet,extended release 24 hr levothyroxine 125 mcg tablet 125 mcg PO DAILY #90 tab 03/15/21 oxycodone-acetaminophen 5 mg-325 1 tab PO BID PRN #60 tab 03/18/21 mg tablet amoxicillin-pot clavulanate 1 tab PO BID #20 tab 03/23/21 [Augmentin] oxycodone 5 mg PO Q4-6H PRN #10 tab 03/23/21 hydrocodone-acetaminophen 1 tab PO Q6H PRN #10 tab 04/02/21 Allergies Allergy/AdvReac Type Severity Reaction Status Date / Time adhesive Allergy Mild REDNESS/ITC Verified 11/19/20 14:17 HINESS morphine Allergy Verified 03/22/21 22:00 Review of Systems Review of Systems Narrative: GENERAL: Denies chills, fatigue, malaise, fever, sweats, travel HEENT: Denies sinus pain, ear pain, sore throat, difficulty swallowing, neck pain RESPIRATORY: Shortness of breath see HPI CARDIOVASCULAR: Denies chest pain, palpitations, orthopnea, edema GASTROINTESTINAL: Abdominal pain : Denies dysuria, frequency, incontinence, hematuria, urinary retention, flank pain. MUSCULOSKELETAL: Denies weakness, joint pain, or bony pain SKIN: No rash, no erythema, no pruritus NEUROLOGIC: Denies weakness, dizziness, headache, numbness, change in speech, confusion PSYCHIATRIC: No concerning psychosocial issues. 12 point review of systems is negative except for those stated above and HPI Patient History Medical History (Updated 04/02/21 @ 08:43 by Josephine Lynn DO) Chicken pox (1956) Chickenpox (1956) Chronic cough COPD (chronic obstructive pulmonary disease) Coronary artery disease (2006) Depression (2008) Diabetes (1994) Eczema Foot pain GERD (gastroesophageal reflux disease) (2012) Gout History of recurrent TIAs Hyperlipidemia Hypertension Hypothyroidism Kidney disease (2009) Measles (1955) Measles (1955) Mumps (1958) Mumps (1958) Neuropathy Obstructive sleep apnea Shoulder pain Status post myocardial infarction Strain of muscle of right groin region (03/30/18) Type 2 diabetes mellitus Well adult exam Surgical History Anesthesia History of heart artery stent (2006) History of heart artery stent (2010) Hx of shoulder surgery (2005) Family History Brother Age: 66 Diabetes mellitus Hyperlipidemia Mother Heart disease Hypertension Hyperlipidemia Diabetes mellitus Grandmother Diabetes mellitus Brother No problems noted. Sister Breast cancer Social History household members: family, children and other Smoking Status: Current every day smoker Tobacco: How many years used: 45 alcohol intake: current Smoking Status: Current every day smoker alcohol intake frequency: 3 or more drinks per day Substance Use Type: marijuana Exam Initial Vital Signs Initial Vital Signs: Vital Signs Temperature 99.3 F 04/02/21 03:48 Pulse Rate 77 04/02/21 03:48 Respiratory Rate 14 04/02/21 03:48 Blood Pressure 161/74 H 04/02/21 03:48 Pulse Oximetry 95 04/02/21 03:48 GENERAL: Alert 65-year-old male and in no acute distress. HEENT: Head atraumatic,EOMI, pupils reactive, face symmetric, moist mucous membranes CARDIOVASCULAR: Regular rate and rhythm without murmurs, rubs or gallops. RESPIRATORY: Breath sounds equal bilaterally, no wheezes rales or rhonchi. ABDOMEN: Distended mild tenderness right upper quadrant negative Alexandre sign positive bowel sounds EXTREMITIES: Normal range of motion, no clubbing or edema. Neurovascularly intact NEUROLOGICAL: Alert and oriented x4.Normal gait and speech. Cranial nerves II t hrough XII grossly intact. SKIN: Warm, dry, no laceration, no petechiae, no rashes or lesions. Course Orders Ordered: ED Orders 04/02/21 03:46 Complete Blood Count AUTO DIFF Stat Comprehensive Metabolic Panel Stat Lactate (Lactic Acid) Stat Lipase Stat NT-proBNP (BNP-Adult 18+) Stat Procalcitonin Stat Troponin & CK Cardiac Panel Stat 04/02/21 03:52 XR chest 1V Stat EKG-12 Lead Stat Measure peak expiratory flow ONCE RT Consult Eval and Treat Now 04/02/21 07:18 US abdomen limited Stat Discontinued Medications Hydromorphone HCl (Hydromorphone 1 Mg Inj) 1 mg IV NOW ONE Stop: 04/02/21 04:32 Last Admin: 04/02/21 04:36 Dose: 1 mg Documented by: ASHWIN Hydromorphone HCl (Hydromorphone 0.5 Mg Inj) 0.5 mg IV NOW ONE Stop: 04/02/21 07:20 Last Admin: 04/02/21 07:36 Dose: 0.5 mg Documented by: CRICKET Ketorolac Tromethamine (Ketorolac 30 Mg/Ml Vial) 30 mg IV NOW ONE Stop: 04/02/21 07:20 Last Admin: 04/02/21 07:36 Dose: 30 mg Documented by: CRICKET Vital Signs Vital signs: Vital Signs - 8 hr 04/02/21 03:48 04/02/21 04:30 04/02/21 05:00 Temperature 99.3 F Pulse Rate 77 68 68 Respiratory Rate 14 18 15 Blood Pressure 161/74 H 153/65 H 150/71 H Pulse Oximetry 95 94 95 04/02/21 05:30 04/02/21 06:00 04/02/21 06:30 Temperature Pulse Rate 66 67 64 Respiratory Rate 15 18 Blood Pressure 140/67 143/65 H 150/70 H Pulse Oximetry 94 94 94 04/02/21 07:00 04/02/21 07:30 04/02/21 08:00 Temperature Pulse Rate 67 67 66 Respiratory Rate Blood Pressure 133/64 142/71 H 136/62 Pulse Oximetry 93 94 92 04/02/21 08:30 Temperature Pulse Rate 60 Respiratory Rate Blood Pressure 126/60 Pulse Oximetry 94 MDM - SOB/Dyspnea Lab Data Attestation: I reviewed the patient's lab results. Result diagrams: 04/02/21 03:46 04/02/21 03:46 Labs: Lab Results 04/02/21 04/02/21 04/02/21 Range/Units 03:46 03:46 03:46 WBC 9.4 (4.5-11.0) X10^3/uL RBC 3.85 L (4.5-5.9) X10^6/uL Hgb 12.6 L (13.5-17.5) g/dL Hct 36.9 L (41-53) % MCV 95.8 (80-100) fL MCH 32.7 (26-34) PG MCHC 34.2 (30-36) % RDW 14.1 (11.6-14.8) % Plt Count 204 (150-400) X10^3/uL Neut % (Auto) 76.8 H (50-75) % Lymph % (Auto) 15.2 L (25-40) % Hinds % (Auto) 6.1 (3-14) % Eos % (Auto) 1.5 L (2-4) % Baso % (Auto) 0.4 (0-2) % Neut # (Auto) 7300 H (6141-1506) /uL Lymph # (Auto) 1400 (4959-3699) /uL Hinds # (Auto) 600 (0-900) /uL Eos # (Auto) 100 (0-450) /uL Baso # (Auto) 0 (0-100) /uL Sodium 137 (137-145) mmol/L Potassium 4.1 (3.4-5.1) mmol/L Chloride 104 (98-107) mmol/L Carbon Dioxide 27 (22-32) mmol/L BUN 18 (9-20) mg/dL Creatinine 0.75 (0.66-1.25) mg/dL Estimated GFR > 60.0 (>60) mL/min BUN/Creatinine Ratio 24.0 H (6-22) Glucose 293 H (80-110) mg/dL Lactate 1.8 (0.7-2.1) mmol/L Calcium 9.1 (8.4-10.2) mg/dL Total Bilirubin 0.3 (0.2-1.3) mg/dL AST 41 (17-59) IU/L ALT 39 (<50) IU/L Alkaline Phosphatase 74 (38-126) U/L Total Creatine Kinase (55-170) U/L CK-MB (CK-2) (<2.37) ng/mL CK-MB (CK-2) Rel Index (1.5-5.0) % Troponin I (0.01-0.034) ng/mL NT-Pro-B Natriuret Pep (<125) pg/mL Total Protein 6.7 (6.3-8.2) g/dL Albumin 3.7 (3.5-5.0) g/dL Globulin 3.0 (1.7-4.1) g/dL Albumin/Globulin Ratio 1.2 (1.0-2.8) Lipase (23-300) U/L Procalcitonin (<0.5) ng/mL 04/02/21 Range/Units 03:46 WBC (4.5-11.0) X10^3/uL RBC (4.5-5.9) X10^6/uL Hgb (13.5-17.5) g/dL Hct (41-53) % MCV (80-100) fL MCH (26-34) PG MCHC (30-36) % RDW (11.6-14.8) % Plt Count (150-400) X10^3/uL Neut % (Auto) (50-75) % Lymph % (Auto) (25-40) % Hinds % (Auto) (3-14) % Eos % (Auto) (2-4) % Baso % (Auto) (0-2) % Neut # (Auto) (3769-8428) /uL Lymph # (Auto) (2578-6219) /uL Hinds # (Auto) (0-900) /uL Eos # (Auto) (0-450) /uL Baso # (Auto) (0-100) /uL Sodium (137-145) mmol/L Potassium (3.4-5.1) mmol/L Chloride (98-107) mmol/L Carbon Dioxide (22-32) mmol/L BUN (9-20) mg/dL Creatinine (0.66-1.25) mg/dL Estimated GFR (>60) mL/min BUN/Creatinine Ratio (6-22) Glucose (80-110) mg/dL Lactate (0.7-2.1) mmol/L Calcium (8.4-10.2) mg/dL Total Bilirubin (0.2-1.3) mg/dL AST (17-59) IU/L ALT (<50) IU/L Alkaline Phosphatase (38-126) U/L Total Creatine Kinase 356 H (55-170) U/L CK-MB (CK-2) 4.88 H (<2.37) ng/mL CK-MB (CK-2) Rel Index 1.4 L (1.5-5.0) % Troponin I < 0.012 (0.01-0.034) ng/mL NT-Pro-B Natriuret Pep 250 H (<125) pg/mL Total Protein (6.3-8.2) g/dL Albumin (3.5-5.0) g/dL Globulin (1.7-4.1) g/dL Albumin/Globulin Ratio (1.0-2.8) Lipase 42 (23-300) U/L Procalcitonin 0.09 (<0.5) ng/mL Imaging Data US - abdomen: Radiologist's Impression: PROCEDURE: US ABDOMEN LIMITED INDICATIONS: RUQ PAIN; DISTENTION TECHNIQUE: Real-time scanning was performed of the abdominal and retroperitoneal organs, with image documentation. COMPARISON: [facility], US, US ABDOMEN LIMITED, 03/22/2021, 22:39. FINDINGS: Liver: Liver is normal in size . Coarsely echogenic liver parenchyma is seen. No discrete hepatic lesion. Gallbladder: There is no gallstone. No gallbladder wall thickening or pericholecystic fluid. No sonographic Alexandre sign. Biliary ducts: Intrahepatic bile ducts are non-dilated. Extrahepatic bile duct caliber measures 4.5 mm. Normal is 6-7 mm or less in diameter, or 10 mm or less post-cholecystectomy. Pancreas: Pancreas is not well seen due to overlying bowel gas. Miscellaneous: No free abdominal fluid. IMPRESSION: 1. Suggestion of mild hepatic steatosis. No discrete hepatic lesion. 2. Normal appearing gallbladder. No biliary ductal dilatation. 3. No ascites is seen. Dictated by: Keron Colunga M.D. on 04/02/2021 at 8:26 Approved by: Keron Colunga M.D. on 04/02/2021 at 8:27 Chest x-ray: Radiologist's Impression: PROCEDURE: XR CHEST 1V INDICATIONS: shortness of breath TECHNIQUE: One view of the chest was acquired. COMPARISON: [facility], , XR CHEST 1V, 03/22/2021, 22:06. FINDINGS: Surgical changes and devices: None. Lungs and pleura: Chronic interstitial prominence in bilateral lung pascual are seen unchanged from prior studies. No focal infiltrate. No pleural effusions or pneumothorax. Mediastinum: Mediastinal contours appear normal. Heart size is normal. Bones and chest wall: No suspicious bony lesions. Overlying soft tissues appear unremarkable. IMPRESSION: No acute cardiopulmonary pathology. No discrepancies from preliminary report. Dictated by: Keron Colunga M.D. on 04/02/2021 at 8:15 Approved by: Keron Colunga M.D. on 04/02/2021 at 8:16 ECG Data Attestation: I personally reviewed and interpreted this ECG as follows: Prior ECG tracings: available for review Interpretation: Normal sinus rhythm wait [address] changes or T-wave inversions Q-waves noted in anterior leads low voltage MDM Narrative Medical decision making narrative: Patient had full workup a week ago including CT he was placed on antibiotics at this time. He initially said he was short of breath was his complaint here but now seems to be more right upper quadrant pain. Ultrasound does not show any abnormality. Blood work is overall reassuring. At this time I see no indication for any further imaging. Discharge Plan Departure Patient Disposition: Home Clinical Impression: Abdominal pain Qualifiers: Abdominal location: right upper quadrant Qualified Code(s): R10.11 - Right upper quadrant pain Instructions: DI for Abdominal Pain-Adult Activity Restrictions/Additional Instructions: *You have been diagnosed with abdominal pain *What to do: At this time blood work and ultrasound are reassuring chest x-ray does not show any evidence of pneumonia. *Continue to take medications as directed [place] 1 tablet every 6 hours only if needed for severe pain *Follow up with your primary care provider in 2-3 days *Return to ER if you should have increasing abdominal pain, persistent vomiting, increasing shortness of breath or any new, worsening or concerning symptoms CONTROLLED SUBSTANCE DISCHARGE (Narcotoic/benzodiazepine/Flexeril/Phenergan) 1. You have been prescribed narcotic medications, it does have acetaminophen/Tylenol/paracetamol in it, DO NOT TAKE MORE THAN 4,00mg in 24 hours of Tylenol. TRAMADOL DOES NOT CONTAIN TYLENOL 2. Please understand that we cannot provide further refills of narcotics, benzodiazepines or controlled substances through the ED and her pain management will need to be through your provider. 3. While on these medications you cannot drive or operate heavy machinery. 4. You cannot sign legal documents or perform any duties such as this. 5. As long as you're taking opiate pain medications he should also be taking a stool softener such as Colace, Dulcolax, MiraLAX or prune juice, to help avoid constipation. Prescriptions: New hydrocodone-acetaminophen 5-325 mg tablet 1 tab PO Q6H PRN (Reason: pain) Qty: 10 RF: 0 No Action meclizine 25 mg tablet 25 mg PO TID PRN (Reason: dizziness) Qty: 10 RF: 0 omeprazole 20 mg tablet,delayed release (DR/EC) 20 mg PO DAILY Qty: 90 RF: 0 (DME) pen needle, diabetic [Comfort EZ Pen [place]] 31 gauge x 5/16 needle See Dose Instructions .ROUTE .MEDSUPPLY Qty: 100 RF: 3 (DME) Test strips 100 strip Qty: 1 RF: 10 bupropion HCl [Wellbutrin SR] 150 mg tablet sustained-release 12 hr 150 mg PO DAILY Qty: 90 RF: 1 (DME) pen needle, diabetic [Comfort EZ Pen [place]] 29 gauge x 1/2 needle See Dose Instructions .ROUTE .MEDSUPPLY Qty: 100 RF: 0 tamsulosin [Flomax] 0.4 mg capsule 0.4 mg PO DAILY Qty: 90 RF: 1 albuterol sulfate [Proventil HFA] 90 mcg/actuation HFA aerosol inhaler 2 puff INHALATION QID PRN (Reason: shortness of breath) Qty: 18 RF: 5 beclomethasone dipropionate 40 mcg/actuation HFA aerosol breath activated 1 inhalation Inhalation BID Qty: 10.6 RF: 5 (DME) blood-glucose meter Kit See Rx Instructions .ROUTE .MEDSUPPLY Qty: 1 RF: 0 tizanidine 4 mg tablet 4 mg PO TID PRN (Reason: muscle spasticity) Qty: 90 RF: 1 (DME) Disabled Parking Permit See Rx Instructions .ROUTE .MEDSUPPLY Qty: 1 RF: 0 (DME) Blood Glucose Test Strip See Rx Instructions .ROUTE .MEDSUPPLY Qty: 100 RF: 6 (DME) lancets [BD Ultra Fine Lancets] 33 gauge misc See Rx Instructions .ROUTE .MEDSUPPLY Qty: 100 RF: 6 gabapentin 300 mg capsule 900 mg PO BID Qty: 540 RF: 3 isosorbide mononitrate 60 mg tablet extended release 24 hr 60 mg PO QAM Qty: 90 RF: 2 levothyroxine 125 mcg tablet 125 mcg PO DAILY Qty: 90 RF: 3 oxycodone-acetaminophen [Percocet] 5-325 mg tablet 1 tab PO BID PRN (Reason: pain) Qty: 60 RF: 0 triamcinolone acetonide 0.1 % cream 1 applictn TOP DAILY Qty: 30 RF: 5 nitroglycerin 0.4 mg tablet, sublingual 0.4 mg sublingual PRN PRN (Reason: Chest Pain) RF: 0 atorvastatin 80 mg tablet 80 mg PO DAILY Qty: 90 RF: 3 citalopram [Celexa] 40 mg tablet 40 mg PO DAILY Qty: 90 RF: 1 clopidogrel 75 mg tablet 75 mg PO DAILY Qty: 90 RF: 1 lisinopril 2.5 mg tablet 2.5 mg PO QAM Qty: 90 RF: 1 metoprolol tartrate 50 mg tablet 50 mg PO BID Qty: 180 RF: 3 lorazepam 1 mg tablet 1 mg PO BID PRN (Reason: sedation) Qty: 5 RF: 0 insulin glargine U-300 conc 300 unit/mL (3 mL) insulin pen 50 unit SUBCUT BID Qty: 15 RF: 11 mupirocin 2 % ointment 1 applictn TOP BID Qty: 30 RF: 1 Novolog Flexpen U-100 Insulin 100 unit/mL (3 mL) insulin pen See Rx Instructions SUBCUT .COMPLEX Qty: 15 RF: 11 ipratropium-albuterol 0.5 mg-3 mg(2.5 mg base)/3 mL Solution For Nebulization 3 ml INH QID Qty: 360 RF: 0 amoxicillin-pot clavulanate [Augmentin] 875-125 mg tablet 1 tab PO BID Qty: 20 RF: 0 oxycodone 5 mg tablet 5 mg PO Q4-6H PRN (Reason: pain) Qty: 10 RF: 0 Referrals: Gasper Rutherford, [Primary Care Provider] -
--- NOTE | 2021-04-02 04:22 | RT ---
Assessed pt at 0349. Pt is here for SOB, possible worsening PNA. Pt on RA, SpO2 96%, RR 22, BS B/L crackles throughout with faint inspiratory/expiratory wheezes. Pt is a current smoker, < 1 ppd, and has a hx of COPD. Pt takes Albuterol MDI/SVN PRN and should be taking QVAR MDI BID, but doesn't per pt. Pt has hx of KATI and does use CPAP at home. No O2 use at home. Recommending O2 therapy and SVNs as needed, smoking cessation, and encourage pt to be more compliant with pulmonary medications.
[2021-04-02] MEDS: HYDROMORPHONE 1 MG INJ IV (04:36)
[2021-04-02 04:48] LABS: Creatine Kinase 356 U/L (55-170); Lipase 42 U/L (23-300)
[2021-04-02 05:01] LABS: NT-proBNP (BNP-Adult 18+) 250 pg/mL (<125); Troponin I < 0.012 ng/mL (0.01-0.034)
[2021-04-02 05:06] LABS: Procalcitonin 0.09 ng/mL (<0.5)
[2021-04-02 05:22] LABS: CKMB % Relative Index 1.4 % (1.5-5.0); Creatine Kinase MB 4.88 ng/mL (<2.37)
--- NOTE | 2021-04-02 07:18 | DI.US.S_ITS ---
PROCEDURE: US ABDOMEN LIMITED INDICATIONS: RUQ PAIN; DISTENTION TECHNIQUE: Real-time scanning was performed of the abdominal and retroperitoneal organs, with image documentation. COMPARISON: , US, US ABDOMEN LIMITED, 03/22/2021, 22:39. FINDINGS: Liver: Liver is normal in size . Coarsely echogenic liver parenchyma is seen. No discrete hepatic lesion. Gallbladder: There is no gallstone. No gallbladder wall thickening or pericholecystic fluid. No sonographic Alexandre sign. Biliary ducts: Intrahepatic bile ducts are non-dilated. Extrahepatic bile duct caliber measures 4.5 mm. Normal is 6-7 mm or less in diameter, or 10 mm or less post-cholecystectomy. Pancreas: Pancreas is not well seen due to overlying bowel gas. Miscellaneous: No free abdominal fluid. IMPRESSION: 1. Suggestion of mild hepatic steatosis. No discrete hepatic lesion. 2. Normal appearing gallbladder. No biliary ductal dilatation. 3. No ascites is seen. Dictated by: Keron Colunga M.D. on 04/02/2021 at 8:26 Approved by: Keron Colunga M.D. on 04/02/2021 at 8:27
[2021-04-02] MEDS: KETOROLAC 30 MG/ML VIAL IV (07:36)
[2021-04-02] MEDS: HYDROMORPHONE 0.5 MG INJ IV (07:36)
== END 2021-04-02 09:05 | disposition home or self-care (01) ==
PROVIDERS: Emergency Provider Emergency Medicine; PCP Family Medicine
DX: R10.11 Right upper quadrant pain (principal); R06.02 Shortness of breath
CPT/HCPCS: 36415; 71045; 76705; 80053; 82550; 82553; 83605; 83690; 83880; 84145; 84484; 85025; 93005; 96374; 96375; 96376; 99284; J1170; J1885

== ENCOUNTER 2021-04-29 07:17 | Emergency (ER) | payer MEDICARE, OTHER, SELFPAY ==
[2021-02-25 15:36] VITALS: BMI 32.3
[2021-04-29 07:17] VITALS: BP 137/66; PULSE 54; RESP 12; TEMP 36.3; O2SAT 93; BMI 36.3
--- NOTE | 2021-04-29 07:26 | DI.US.S_ITS ---
PROCEDURE: US ABDOMEN LIMITED INDICATIONS: RIGHT UPPER QUADRANT PAIN TECHNIQUE: Real-time focused scanning was performed of the abdomen, with image documentation. COMPARISON: [facility], ABDOMEN LIMITED, 04/02/2021, 7:45. [facility], ABDOMEN LIMITED, 03/22/2021, 22:39. FINDINGS: The liver is normal in craniocaudad length, but appears hyperechoic consistent fatty infiltration. No focal liver lesion is found. The gallbladder appears normal. The bile ducts are normal in caliber, and the pancreas visualized appears normal. IMPRESSION: Fatty infiltration throughout the liver, somewhat limited quality visualization due to body habitus. A source of current pain is not found otherwise. Dictated by: Parviz Waite M.D. on 04/29/2021 at 9:30 Approved by: Parviz Waite M.D. on 04/29/2021 at 9:31
--- NOTE | 2021-04-29 07:30 | ED_ITS ---
HPI - Abdominal Pain General Chief Complaint: Abdominal Pain Stated Complaint: RLQ pain Time Seen by Provider: 04/29/21 07:26 Source: patient and EMS Mode of arrival: EMS History of Present Illness HPI narrative: Patient is a 65-year-old male with history of coronary artery disease, congestive heart failure, COPD, type 2 diabetes, chronic right upper quadrant pain presenting today with right upper quadrant pain. He has actually been seen and evaluated in the emergency department once this month already for right upper quadrant pain. He was seen last month for something similar. He says it feels like a spasm on his right side and contrast and last for few seconds. He is having some right shoulder pain as well. He has stable ongoing shortness of breath that is not any worse than normal. He sleeps in a recliner at baseline but has noted some increased swelling in his legs. He denies any worsening shortness of breath. denies any fever or chills Pain Consistency: intermittent Location: RUQ Severity: moderate Related Data Home Medications Medication Instructions Recorded Confirmed nitroglycerin 0.4 mg sublingual 0.4 mg SUBLINGUAL PRN PRN tab 12/21/19 04/16/21 tablet Previous Rx's Medication Instructions Recorded ipratropium 0.5 mg-albuterol 3 mg 3 ml INH QID #360 ml 03/12/19 (2.5 mg base)/3 mL nebulization soln triamcinolone acetonide 0.1 % 1 applictn TOP DAILY #30 gram 10/10/19 topical cream meclizine 25 mg tablet 25 mg PO TID PRN #10 tab 10/12/19 omeprazole 20 mg tablet,delayed 20 mg PO DAILY #90 tab 02/17/20 release pen needle, diabetic 31 gauge x #100 each 02/27/20/16 (Comfort EZ Pen [place]) Test strips #1 each 03/22/20 bupropion HCl 150 mg tablet,12 hr 150 mg PO DAILY #90 each 04/24/20 sustained-release (Wellbutrin SR) pen needle, diabetic 29 gauge x #100 each 04/24/20 1/2 (Comfort EZ Pen [place]) insulin aspart U-100 100 unit/mL See Rx Instructions SUBCUT 05/01/20 (3 mL) subcutaneous pen (Novolog .COMPLEX #15 ml Flexpen U-100 Insulin aspart) mupirocin 2 % topical ointment 1 applictn TOP BID #30 gram 05/16/20 tamsulosin 0.4 mg capsule (Flomax) 0.4 mg PO DAILY #90 cap 05/28/20 beclomethasone dipropionate 40 1 inhalation INHALATION BID #10.6 05/29/20 mcg/actuation HFA breath activated gram aerosol atorvastatin 80 mg tablet 80 mg PO DAILY #90 tab 08/22/20 citalopram 40 mg tablet (Celexa) 40 mg PO DAILY #90 tab 08/22/20 clopidogrel 75 mg tablet 75 mg PO DAILY #90 tab 08/22/20 metoprolol tartrate 50 mg tablet 50 mg PO BID #180 tab 08/22/20 lorazepam 1 mg tablet 1 mg PO BID PRN #5 tab 09/03/20 insulin glargine U-300 conc 300 50 unit SUBCUT BID #15 ml 11/19/20 unit/mL (3 mL) subcutaneous pen blood-glucose meter #1 ea 01/11/21 tizanidine 4 mg tablet 4 mg PO TID PRN #90 tab 02/13/21 Disabled Parking Permit #1 ea 02/15/21 blood sugar diagnostic (Blood #100 ea 03/01/21 Glucose Test) lancets 33 gauge (BD Ultra Fine #100 ea 03/01/21 Lancets) isosorbide mononitrate 60 mg 60 mg PO QAM #90 tab 03/15/21 tablet,extended release 24 hr levothyroxine 125 mcg tablet 125 mcg PO DAILY #90 tab 03/15/21 amoxicillin 875 mg-potassium 1 tab PO BID #20 tab 03/23/21 clavulanate 125 mg tablet (Augmentin) hydrocodone 5 mg-acetaminophen 325 1 tab PO Q6H PRN #10 tab 04/02/21 mg tablet gabapentin 300 mg capsule 900 mg PO BID #540 cap 04/12/21 lisinopril 2.5 mg tablet 2.5 mg PO QAM #90 tab 04/16/21 oxycodone 5 mg tablet 5 mg PO Q4-6H PRN #60 tab 04/19/21 albuterol sulfate 90 mcg/actuation 2 puff INHALATION QID PRN #18 gram 04/22/21 aerosol inhaler (Proventil HFA) furosemide 20 mg tablet (Lasix) 20 mg PO DAILY #4 tab 04/29/21 Allergies Allergy/AdvReac Type Severity Reaction Status Date / Time adhesive Allergy Mild REDNESS/ITC Verified 04/29/21 07:20 HINESS morphine Allergy Verified 04/29/21 07:20 Review of Systems Review of Systems Narrative: GENERAL: Denies chills, fatigue, malaise, fever, sweats, travel HEENT: Denies sinus pain, ear pain, sore throat, difficulty swallowing, neck pain RESPIRATORY:+ orthopnea, +lower extremity edema, denies cough, denies hemoptysis CARDIOVASCULAR: Denies chest pain, palpitations, orthopnea, edema GASTROINTESTINAL: Right upper quadrant : Denies dysuria, frequency, incontinence, hematuria, urinary retention, flank pain. MUSCULOSKELETAL: Denies weakness, joint pain, or bony pain SKIN: No rash, no erythema, no pruritus NEUROLOGIC: Denies weakness, dizziness, headache, numbness, change in speech, confusion PSYCHIATRIC: No concerning psychosocial issues. 12 point review of systems is negative except for those stated above and HPI Patient History Medical History Bilateral otitis externa Chicken pox (1956) Chickenpox (1956) Chronic cough COPD (chronic obstructive pulmonary disease) Coronary artery disease (2006) Depression (2008) Diabetes (1994) Eczema Foot pain GERD (gastroesophageal reflux disease) (2012) Gout Hearing reduced History of recurrent TIAs Hyperlipidemia Hypertension Hypothyroidism Kidney disease (2009) Measles (195) Measles (1955) Mumps (1958) Mumps (1958) Neuropathy Obstructive sleep apnea Otitis externa Screening for malignant neoplasm of colon Shoulder pain Sleep apnea Status post myocardial infarction Strain of muscle of right groin region (03/30/18) Type 2 diabetes mellitus Well adult exam Surgical History Anesthesia History of heart artery stent (2006) History of heart artery stent (2010) Hx of shoulder surgery (2005) Family History Brother Age: 66 Diabetes mellitus Hyperlipidemia Mother Heart disease Hypertension Hyperlipidemia Diabetes mellitus Grandmother Diabetes mellitus Brother No problems noted. Sister Breast cancer Social History household members: family, children and other Smoking Status: Current every day smoker Tobacco: How many years used: 45 alcohol intake: current Smoking Status: Current every day smoker alcohol intake frequency: 3 or more drinks per day Substance Use Type: marijuana Exam Initial Vital Signs Initial Vital Signs: Vital Signs Temperature 97.4 F L 04/29/21 07:17 Pulse Rate 54 L 04/29/21 07:17 Respiratory Rate 12 04/29/21 07:17 Blood Pressure 137/66 04/29/21 07:17 Pulse Oximetry 93 04/29/21 07:17 GENERAL: alert 65-year-old male appears uncomfortable HEENT: Head atraumatic,EOMI, pupils reactive, face symmetric, [moist] mucous membranes CARDIOVASCULAR: Regular rate and rhythm without murmurs, rubs or gallops. RESPIRATORY: Breath sounds equal bilaterally, no wheezes rales or rhonchi. ABDOMEN: Soft, mild right upper quadrant pain negative Alexandre sign EXTREMITIES: Normal range of motion, no clubbing. + 1 pitting edema Neurovascularly intact NEUROLOGICAL: Alert and oriented x4.Normal gait and speech. SKIN: Warm, dry, no laceration, no petechiae, no rashes or lesions. Course Orders Ordered: Discontinued Medications Hydromorphone HCl (Hydromorphone 0.5 Mg Inj) 0.5 mg IV NOW ONE Stop: 04/29/21 09:29 Last Admin: 04/29/21 09:39 Dose: 0.5 mg Documented by: CARMEN Ketorolac Tromethamine (Ketorolac 30 Mg/Ml Vial) 30 mg IV NOW ONE Stop: 04/29/21 07:27 Last Admin: 04/29/21 07:41 Dose: 30 mg Documented by: CARMEN Vital Signs Vital signs: Vital Signs - 8 hr 04/29/21 07:17 04/29/21 09:30 Temperature 97.4 F L Pulse Rate 54 L Respiratory Rate 12 Blood Pressure 137/66 Pulse Oximetry 93 97 MDM - Abdominal Pain Lab Data Result diagrams: 04/29/21 07:31 04/29/21 07:31 Labs: Lab Results 04/29/21 04/29/21 04/29/21 Range/Units 07:30 07:31 07:31 WBC 9.6 (4.5-11.0) X10^3/uL RBC 4.09 L (4.5-5.9) X10^6/uL Hgb 13.1 L (13.5-17.5) g/dL Hct 38.8 L (41-53) % MCV 94.9 (80-100) fL MCH 32.1 (26-34) PG MCHC 33.8 (30-36) % RDW 14.3 (11.6-14.8) % Plt Count 211 (150-400) X10^3/uL Neut % (Auto) 70.5 (50-75) % Lymph % (Auto) 18.6 L (25-40) % [place] % (Auto) 8.8 (3-14) % Eos % (Auto) 1.5 L (2-4) % Baso % (Auto) 0.6 (0-2) % Neut # (Auto) 6800 (2289-7574) /uL Lymph # (Auto) 1800 (5076-1668) /uL [place] # (Auto) 800 (0-900) /uL Eos # (Auto) 100 (0-450) /uL Baso # (Auto) 100 (0-100) /uL D-Dimer (<230) ng/mL Sodium 137 (137-145) mmol/L Potassium 3.7 (3.4-5.1) mmol/L Chloride 105 (98-107) mmol/L Carbon Dioxide 28 (22-32) mmol/L BUN 16 (9-20) mg/dL Creatinine 0.79 (0.66-1.25) mg/dL Estimated GFR > 60.0 (>60) mL/min BUN/Creatinine Ratio 20.3 (6-22) Glucose 105 (80-110) mg/dL Calcium 9.4 (8.4-10.2) mg/dL Total Bilirubin 0.5 (0.2-1.3) mg/dL AST 37 (17-59) IU/L ALT 37 (<50) IU/L Alkaline Phosphatase 57 (38-126) U/L Total Creatine Kinase 271 H (55-170) U/L CK-MB (CK-2) 3.08 H (<2.37) ng/mL CK-MB (CK-2) Rel Index 1.1 L (1.5-5.0) % Troponin I < 0.012 (0.01-0.034) ng/mL NT-Pro-B Natriuret Pep (<125) pg/mL Total Protein 7.1 (6.3-8.2) g/dL Albumin 3.7 (3.5-5.0) g/dL Globulin 3.4 (1.7-4.1) g/dL Albumin/Globulin Ratio 1.1 (1.0-2.8) Lipase 29 (23-300) U/L 04/29/21 04/29/21 Range/Units 07:31 09:08 WBC (4.5-11.0) X10^3/uL RBC (4.5-5.9) X10^6/uL Hgb (13.5-17.5) g/dL Hct (41-53) % MCV (80-100) fL MCH (26-34) PG MCHC (30-36) % RDW (11.6-14.8) % Plt Count (150-400) X10^3/uL Neut % (Auto) (50-75) % Lymph % (Auto) (25-40) % [place] % (Auto) (3-14) % Eos % (Auto) (2-4) % Baso % (Auto) (0-2) % Neut # (Auto) (3033-9019) /uL Lymph # (Auto) (6418-8854) /uL [place] # (Auto) (0-900) /uL Eos # (Auto) (0-450) /uL Baso # (Auto) (0-100) /uL D-Dimer 203 (<230) ng/mL Sodium (137-145) mmol/L Potassium (3.4-5.1) mmol/L Chloride (98-107) mmol/L Carbon Dioxide (22-32) mmol/L BUN (9-20) mg/dL Creatinine (0.66-1.25) mg/dL Estimated GFR (>60) mL/min BUN/Creatinine Ratio (6-22) Glucose (80-110) mg/dL Calcium (8.4-10.2) mg/dL Total Bilirubin (0.2-1.3) mg/dL AST (17-59) IU/L ALT (<50) IU/L Alkaline Phosphatase (38-126) U/L Total Creatine Kinase (55-170) U/L CK-MB (CK-2) (<2.37) ng/mL CK-MB (CK-2) Rel Index (1.5-5.0) % Troponin I (0.01-0.034) ng/mL NT-Pro-B Natriuret Pep 307 H (<125) pg/mL Total Protein (6.3-8.2) g/dL Albumin (3.5-5.0) g/dL Globulin (1.7-4.1) g/dL Albumin/Globulin Ratio (1.0-2.8) Lipase (23-300) U/L Imaging Data US - abdomen: Radiologist's Impression: PROCEDURE: US ABDOMEN LIMITED INDICATIONS: RIGHT UPPER QUADRANT PAIN TECHNIQUE: Real-time focused scanning was performed of the abdomen, with image documentation. COMPARISON: [facility], US, US ABDOMEN LIMITED, 04/02/2021, 7:45. [facility], US, US ABDOMEN LIMITED, 03/22/2021, 22:39. FINDINGS: The liver is normal in craniocaudad length, but appears hyperechoic consistent fatty infiltration. No focal liver lesion is found. The gallbladder appears normal. The bile ducts are normal in caliber, and the pancreas visualized appears normal. IMPRESSION: Fatty infiltration throughout the liver, somewhat limited quality visualization due to body habitus. A source of current pain is not found otherwise. Dictated by: Parviz Waite M.D. on 04/29/2021 at 9:30 Approved by: Parviz Waite M.D. on 04/29/2021 at 9:31 Chest x-ray: Radiologist's Impression: PROCEDURE: XR CHEST 1V INDICATIONS: short of breath TECHNIQUE: One view of the chest was acquired. COMPARISON: [facility], CT, CT CHEST ABD PEL W CON, 03/22/2021, 23:35. [facility], CR, XR CHEST 1V, 04/02/2021, 3:57. [facility], CR, XR CHEST 1V, 03/22/2021, 22:06. FINDINGS: Surgical changes and devices: None. Lungs and pleura: Lungs are abnormal, with a mild generalized pulmonary edema pattern select is normal is mildly enlarged. No pleural effusions or pneumothorax. Mediastinum: Mediastinal contours appear normal. Heart size is normal. Bones and chest wall: No suspicious bony lesions. Overlying soft tissues appear unremarkable. IMPRESSION: Mild cardiomegaly and mild generalized CHF. No pleural effusion seen. Cardiogenic pulmonary edema is the presumed cause of this abnormality. Dictated by: Parviz Waite M.D. on 04/29/2021 at 8:47 ECG Data Interpretation: Normal sinus rhythm rate 54 p.r. interval 212 QRS [address] changes no T-wave inversions similar to previous EKG MDM Narrative Medical decision making narrative: The patient has been seen for right upper quadrant pain in the past and had a CT and workup at that time. Currently ultrasound and chest x-ray have blood work overall reassuring. A D-dimer is negative unlikely to be pulmonary embolism causing and discomfort. Troponin and BNP do not show significant heart strain or pulmonary edema. At this time I recommend he see his primary care for for either for his worsening persistent right upper quadrant pain. He may be having episodes of biliary colic or biliary dysfunction which would require a HIDA scan. Discharge Plan Departure Patient Disposition: Home Clinical Impression: Abdominal pain, Bilateral edema of lower extremity Instructions: DI for Abdominal Pain-Adult Activity Restrictions/Additional Instructions: *You have been diagnosed with abdominal pain *What to do: at this time you are having persistent right upper quadrant pain. Unfortunately I do not have a good cause for it this time. I recommend that you see her primary care provider for a possible HIDA scan and further outpatient workup *Continue to take medications as directed Tylenol 650 mg every 4-6 hours Lasix 20 mg once a day in the morning for swelling in the leg--> SENT TO [facility] IN [place] *Follow up with your primary care provider in 2-3 days *Return to ER if you should have increasing lower extremity swelling, difficulty breathing, chest pain [or] any new, worsening or concerning symptoms Prescriptions: New furosemide [Lasix] 20 mg tablet 20 mg PO DAILY Qty: 4 RF: 0 No Action meclizine 25 mg tablet 25 mg PO TID PRN (Reason: dizziness) Qty: 10 RF: 0 omeprazole 20 mg tablet,delayed release (DR/EC) 20 mg PO DAILY Qty: 90 RF: 0 (DME) pen needle, diabetic [Comfort EZ Pen [place]] 31 gauge x 5/16 needle See Dose Instructions .ROUTE .MEDSUPPLY Qty: 100 RF: 3 (DME) Test strips 100 strip Qty: 1 RF: 10 bupropion HCl [Wellbutrin SR] 150 mg tablet sustained-release 12 hr 150 mg PO DAILY Qty: 90 RF: 1 (DME) pen needle, diabetic [Comfort EZ Pen [place]] 29 gauge x 1/2 needle See Dose Instructions .ROUTE .MEDSUPPLY Qty: 100 RF: 0 tamsulosin [Flomax] 0.4 mg capsule 0.4 mg PO DAILY Qty: 90 RF: 1 beclomethasone dipropionate 40 mcg/actuation HFA aerosol breath activated 1 inhalation Inhalation BID Qty: 10.6 RF: 5 (DME) blood-glucose meter Kit See Rx Instructions .ROUTE .MEDSUPPLY Qty: 1 RF: 0 tizanidine 4 mg tablet 4 mg PO TID PRN (Reason: muscle spasticity) Qty: 90 RF: 1 (DME) Disabled Parking Permit See Rx Instructions .ROUTE .MEDSUPPLY Qty: 1 RF: 0 (DME) Blood Glucose Test Strip See Rx Instructions .ROUTE .MEDSUPPLY Qty: 100 RF: 6 (DME) lancets [BD Ultra Fine Lancets] 33 gauge misc See Rx Instructions .ROUTE .MEDSUPPLY Qty: 100 RF: 6 isosorbide mononitrate 60 mg tablet extended release 24 hr 60 mg PO QAM Qty: 90 RF: 2 levothyroxine 125 mcg tablet 125 mcg PO DAILY Qty: 90 RF: 3 gabapentin 300 mg capsule 900 mg PO BID Qty: 540 RF: 3 oxycodone 5 mg tablet 5 mg PO Q4-6H PRN (Reason: pain) Qty: 60 RF: 0 albuterol sulfate [Proventil HFA] 90 mcg/actuation HFA aerosol inhaler 2 puff INHALATION QID PRN (Reason: shortness of breath) Qty: 18 RF: 5 triamcinolone acetonide 0.1 % cream 1 applictn TOP DAILY Qty: 30 RF: 5 nitroglycerin 0.4 mg tablet, sublingual 0.4 mg sublingual PRN PRN (Reason: Chest Pain) RF: 0 atorvastatin 80 mg tablet 80 mg PO DAILY Qty: 90 RF: 3 citalopram [Celexa] 40 mg tablet 40 mg PO DAILY Qty: 90 RF: 1 clopidogrel 75 mg tablet 75 mg PO DAILY Qty: 90 RF: 1 metoprolol tartrate 50 mg tablet 50 mg PO BID Qty: 180 RF: 3 lorazepam 1 mg tablet 1 mg PO BID PRN (Reason: sedation) Qty: 5 RF: 0 insulin glargine U-300 conc 300 unit/mL (3 mL) insulin pen 50 unit SUBCUT BID Qty: 15 RF: 11 mupirocin 2 % ointment 1 applictn TOP BID Qty: 30 RF: 1 Novolog Flexpen U-100 Insulin 100 unit/mL (3 mL) insulin pen See Rx Instructions SUBCUT .COMPLEX Qty: 15 RF: 11 lisinopril 2.5 mg tablet 2.5 mg PO QAM Qty: 90 RF: 1 ipratropium-albuterol 0.5 mg-3 mg(2.5 mg base)/3 mL Solution For Nebulization 3 ml INH QID Qty: 360 RF: 0 amoxicillin-pot clavulanate [Augmentin] 875-125 mg tablet 1 tab PO BID Qty: 20 RF: 0 hydrocodone-acetaminophen 5-325 mg tablet 1 tab PO Q6H PRN (Reason: pain) Qty: 10 RF: 0 Referrals: Gasper Rutherford, [Primary Care Provider] -
[2021-04-29 07:41] LABS: Add Manual Diff / Slide Review NO; Basophils Absolute Auto 100 /uL (0-100); Basophils Percent Auto 0.6 % (0-2); Eosinophils Absolute Auto 100 /uL (0-450); Eosinophils Percent Auto 1.5 % (2-4); Hematocrit 38.8 % (41-53); Hemoglobin 13.1 g/dL (13.5-17.5); Lymphocytes Absolute Auto 1800 /uL (1100-4500); Lymphocytes Percent Auto 18.6 % (25-40); Mean Corpuscular HGB Conc 33.8 % (30-36); Mean Corpuscular Hemoglobin 32.1 PG (26-34); Mean Corpuscular Volume 94.9 fL (80-100); Monocytes Absolute Auto 800 /uL (0-900); Monocytes Percent Auto 8.8 % (3-14); Neutrophils Absolute Auto 6800 /uL (1500-7000); Neutrophils Percent Auto 70.5 % (50-75); Platelet Count 211 X10^3/uL (150-400); Red Blood Cell Count 4.09 X10^6/uL (4.5-5.9); Red Cell Distribution Width 14.3 % (11.6-14.8); White Blood Cell Count 9.6 X10^3/uL (4.5-11.0)
[2021-04-29] MEDS: KETOROLAC 30 MG/ML VIAL IV (07:41)
[2021-04-29 07:44] LABS: Alanine Aminotransferase 37 IU/L (<50); Albumin 3.7 g/dL (3.5-5.0); Albumin Globulin Ratio 1.1 (1.0-2.8); Alkaline Phosphatase 57 U/L (38-126); Aspartate Aminotransferase 37 IU/L (17-59); BUN Creatinine Ratio 20.3 (6-22); Bilirubin Total 0.5 mg/dL (0.2-1.3); Blood Urea Nitrogen 16 mg/dL (9-20); Calcium 9.4 mg/dL (8.4-10.2); Carbon Dioxide 28 mmol/L (22-32); Chloride 105 mmol/L (98-107); Estimated Glomerular Filt Rate > 60.0 mL/min (>60); Globulin 3.4 g/dL (1.7-4.1); Glucose 105 mg/dL (80-110); HEMOLYSIS < 15 (0-50); Lipase 29 U/L (23-300); Potassium 3.7 mmol/L (3.4-5.1); Sodium 137 mmol/L (137-145); Total Protein 7.1 g/dL (6.3-8.2)
[2021-04-29 07:53] LABS: NT-proBNP (BNP-Adult 18+) 307 pg/mL (<125)
[2021-04-29 08:11] LABS: Creatine Kinase 271 U/L (55-170)
[2021-04-29 08:24] LABS: Troponin I < 0.012 ng/mL (0.01-0.034)
[2021-04-29 08:26] LABS: CKMB % Relative Index 1.1 % (1.5-5.0); Creatine Kinase MB 3.08 ng/mL (<2.37)
--- NOTE | 2021-04-29 08:37 | DI.RAD.S_ITS ---
PROCEDURE: XR CHEST 1V INDICATIONS: short of breath TECHNIQUE: One view of the chest was acquired. COMPARISON: [facility], CT, CT CHEST ABD PEL W CON, 03/22/2021, 23:35. [facility], CR, XR CHEST 1V, 04/02/2021, 3:57. [facility], CR, XR CHEST 1V, 03/22/2021, 22:06. FINDINGS: Surgical changes and devices: None. Lungs and pleura: Lungs are abnormal, with a mild generalized pulmonary edema pattern select is normal is mildly enlarged. No pleural effusions or pneumothorax. Mediastinum: Mediastinal contours appear normal. Heart size is normal. Bones and chest wall: No suspicious bony lesions. Overlying soft tissues appear unremarkable. IMPRESSION: Mild cardiomegaly and mild generalized CHF. No pleural effusion seen. Cardiogenic pulmonary edema is the presumed cause of this abnormality. Dictated by: Parviz Waite M.D. on 04/29/2021 at 8:47 Approved by: Parviz Waite M.D. on 04/29/2021 at 8:48
--- NOTE | 2021-04-29 09:07 | PC.NURSE ---
Offered patient some water.
[2021-04-29 09:30] VITALS: O2SAT 97
[2021-04-29 09:38] VITALS: PULSE 55; RESP 20; O2SAT 95
[2021-04-29] MEDS: HYDROMORPHONE 0.5 MG INJ IV (09:39)
[2021-04-29 09:44] LABS: D Dimer 203 ng/mL (<230)
[2021-04-29 10:00] VITALS: BP 166/88; PULSE 58; O2SAT 96
== END 2021-04-29 11:14 | disposition home or self-care (01) ==
PROVIDERS: Emergency Provider Emergency Medicine; PCP Family Medicine
DX: R10.31 Right lower quadrant pain (principal); R60.0 Localized edema
CPT/HCPCS: 36415; 71045; 76705; 80053; 82550; 82553; 83690; 83880; 84484; 85025; 85379; 93005; 96374; 96375; 99284; J1170; J1885

== ENCOUNTER → 2021-06-20 12:37 | Outpatient (CLI) | payer OTHER, MEDICARE, SELFPAY ==
[2021-02-25 15:36] VITALS: BMI 32.3
[2021-06-20 13:45] LABS: Hemoglobin A1C% w Est Avg Glu 8.5 % (4.0-6.0)
[2021-06-20 13:56] LABS: Alanine Aminotransferase 60 IU/L (<50); Albumin Globulin Ratio 1.3 (1.0-2.8); Alkaline Phosphatase 61 U/L (38-126); Aspartate Aminotransferase 51 IU/L (17-59); BUN Creatinine Ratio 26.6 (6-22); Bilirubin Total 0.5 mg/dL (0.2-1.3); Blood Urea Nitrogen 21 mg/dL (9-20); Calcium 9.3 mg/dL (8.4-10.2); Carbon Dioxide 27 mmol/L (22-32); Chloride 105 mmol/L (98-107); Estimated Glomerular Filt Rate > 60.0 mL/min (>60); Globulin 3.1 g/dL (1.7-4.1); Glucose 89 mg/dL (80-110); HEMOLYSIS < 15 (0-50); Potassium 4.5 mmol/L (3.4-5.1); Sodium 139 mmol/L (137-145); Total Protein 7.1 g/dL (6.3-8.2)
[2021-06-20 15:07] LABS: Creatinine Urine Random 58.4 mg/dL
[2021-06-20 15:58] LABS: Microalbumi Creatinin Ratio Ur 811.6 ug/mg CR (<30); Microalbumin Urine Random 47.4 mg/dL (0-1.6)
== END ==
PROVIDERS: PCP Family Medicine; Referring Provider Family Medicine; Visit Provider Family Medicine
DX: E11.59 Type 2 diabetes mellitus with other circulatory complications (principal); I10 Essential (primary) hypertension; I25.10 Atherosclerotic heart disease of native coronary artery without angina pectoris; Z79.4 Long term (current) use of insulin
CPT/HCPCS: 36415; 80053; 82043; 82570; 83036

== ENCOUNTER → 2021-06-24 12:19 | Outpatient (CLI) | payer OTHER, MEDICARE, SELFPAY ==
[2021-02-25 15:36] VITALS: BMI 32.3
--- NOTE | 2021-06-24 12:25 | DI.RAD.S_ITS ---
PROCEDURE: XR HIP W PEL IF DONE ZAKIA MIN 4V INDICATIONS: ARTHRALGIA OF HIP TECHNIQUE: AP pelvis with lateral view(s) of the bilateral hip(s). COMPARISON: [facility], , XR HIP W PEL IF DONE RT 2V, 08/30/2018, 20:27. FINDINGS: Bones: No fractures or dislocations. Moderate bilateral hip joint osteoarthritic changes are seen slightly worse on the right side. No evidence of avascular necrosis of femoral head. Pelvic ring appears intact. No suspicious bony lesions. Soft tissues: The visualized bowel gas pattern is normal. No suspicious soft tissue calcifications. IMPRESSION: Right worse than left bilateral hip joint osteoarthritis. No hip fracture or dislocation. No evidence of avascular necrosis. Dictated by: Keron Colunga M.D. on 06/24/2021 at 13:43 Approved by: Keron Colunga M.D. on 06/24/2021 at 13:44
== END ==
PROVIDERS: PCP Family Medicine; Referring Provider Family Medicine; Visit Provider Family Medicine
DX: M25.552 Pain in left hip (principal); M25.551 Pain in right hip; M16.0 Bilateral primary osteoarthritis of hip
CPT/HCPCS: 73522

== ENCOUNTER 2021-07-05 05:15 | Emergency (ER) | payer OTHER, MEDICARE, SELFPAY ==
[2021-02-25 15:36] VITALS: BMI 32.3
[2021-07-05] VITALS (15 sets, daily range): BP systolic 151–184; BP diastolic 69–83; PULSE 60–82; RESP 20–24; TEMP 36.2; O2SAT 91–97
--- NOTE | 2021-07-05 05:28 | ED.WEAKNESS ---
HPI - Weakness <Azeem Del Real DO - Last Filed: 07/06/21 02:59> General Chief complaint: Weakness Stated complaint: Dizzy Time Seen by Provider: 07/05/21 05:20 Source: patient and EMS Mode of arrival: EMS History of Present Illness HPI Narrative: 65-year-old male daily smoker with frequent alcohol use and extensive medical history including COPD, hypertension, coronary artery disease presents by EMS for evaluation of a brief dizzy episode this morning. He states he went to bed in his normal state of health and woke up this morning feeling hungry. He went and surgeon food and felt a bit funny, weak and lightheaded, he went to get his blood pressure cuff and found has systolic to be in the 80s. He called EMS for evaluation in on arrival they confirmed this. Before they even left his house he was well into the 100s. He denies any blurred vision, trouble speech. He has no chest pain or shortness of breath. He denies nausea, vomiting or diarrhea. His sugar was elevated at home and as a result he took his regular diabetic regimen this morning. He denies any changes medications or missed doses. Patient has been vaccinated against COVID Related Data Home Medications Medication Instructions Recorded Confirmed nitroglycerin 0.4 mg sublingual 0.4 mg SUBLINGUAL PRN PRN tab 12/21/19 06/24/21 tablet Previous Rx's Medication Instructions Recorded ipratropium 0.5 mg-albuterol 3 mg 3 ml INH QID #360 ml 03/12/19 (2.5 mg base)/3 mL nebulization soln meclizine 25 mg tablet 25 mg PO TID PRN #10 tab 10/12/19 omeprazole 20 mg tablet,delayed 20 mg PO DAILY #90 tab 02/17/20 release Test strips #1 each 03/22/20 insulin aspart U-100 100 unit/mL See Rx Instructions SUBCUT 05/01/20 (3 mL) subcutaneous pen (Novolog .COMPLEX #15 ml Flexpen U-100 Insulin aspart) mupirocin 2 % topical ointment 1 applictn TOP BID #30 gram 05/16/20 tamsulosin 0.4 mg capsule (Flomax) 0.4 mg PO DAILY #90 cap 05/28/20 beclomethasone dipropionate 40 1 inhalation INHALATION BID #10.6 05/29/20 mcg/actuation HFA breath activated gram aerosol atorvastatin 80 mg tablet 80 mg PO DAILY #90 tab 08/22/20 metoprolol tartrate 50 mg tablet 50 mg PO BID #180 tab 08/22/20 insulin glargine U-300 conc 300 50 unit SUBCUT BID #15 ml 11/19/20 unit/mL (3 mL) subcutaneous pen blood-glucose meter #1 ea 01/11/21 tizanidine 4 mg tablet 4 mg PO TID PRN #90 tab 02/13/21 Disabled Parking Permit #1 ea 02/15/21 blood sugar diagnostic (Blood #100 ea 03/01/21 Glucose Test) lancets 33 gauge (BD Ultra Fine #100 ea 03/01/21 Lancets) isosorbide mononitrate 60 mg 60 mg PO QAM #90 tab 03/15/21 tablet,extended release 24 hr gabapentin 300 mg capsule 900 mg PO BID #540 cap 04/12/21 lisinopril 2.5 mg tablet 2.5 mg PO QAM #90 tab 04/16/21 albuterol sulfate 90 mcg/actuation 2 puff INHALATION QID PRN #18 gram 04/22/21 aerosol inhaler (Proventil HFA) ciprofloxacin 0.3 %-dexamethasone 4 drp OTIC (EAR) Q12H #7.5 ml 05/08/21 0.1 % ear drops,suspension (Ciprodex) citalopram 40 mg tablet (Celexa) 40 mg PO DAILY #90 tab 05/08/21 furosemide 20 mg tablet (Lasix) 20 mg PO DAILY #90 tab 05/08/21 lorazepam 1 mg tablet 1 mg PO BID PRN #30 tab 05/08/21 bupropion HCl 150 mg tablet,12 hr 150 mg PO DAILY #30 ea 05/20/21 sustained-release (Wellbutrin SR) clopidogrel 75 mg tablet 75 mg PO DAILY #90 tab 05/20/21 levothyroxine 125 mcg tablet 125 mcg PO DAILY #90 tab 06/03/21 triamcinolone acetonide 0.1 % 1 applic TOP DAILY #30 gram 06/03/21 topical cream furosemide 20 mg tablet 20 mg PO DAILY #90 tab 06/11/21 pen needle, diabetic 31 gauge x #100 each 06/18/2103/17 (Comfort EZ Pen [place]) oxycodone 5 mg tablet 5 mg PO Q4-6H PRN #60 tab 06/19/21 Allergies Allergy/AdvReac Type Severity Reaction Status Date / Time adhesive Allergy Mild REDNESS/ITC Verified 06/24/21 11:56 HINESS morphine Allergy Verified 06/24/21 11:56 Review of Systems <Azeem Del Real DO - Last Filed: 07/06/21 02:59> Review of Systems Narrative: GENERAL: See HPI HEENT: Denies sinus pain, ear pain, sore throat, difficulty swallowing, dizziness. RESPIRATORY: Denies dyspnea, cough, wheezing, hemoptysis, sputum. CARDIOVASCULAR: See HPI GASTROINTESTINAL: Denies nausea, vomiting, abdominal pain, diarrhea, constipation, melena. : Denies dysuria, frequency, incontinence, hematuria, urinary retention. MUSCULOSKELETAL: denies weakness, joint pain, or bony pain SKIN: Denies rash, skin lesions, or other NEUROLOGIC: Denies weakness, headache, numbness, change in speech, confusion, seizures, incoordination. PSYCHIATRIC: No concerning psychosocial issues. 12 point review of systems is negative except for those stated above Patient History <Azeem Del Real DO - Last Filed: 07/06/21 02:59> Medical History Bilateral otitis externa Chicken pox (7) Chickenpox (1956) Chronic cough COPD (chronic obstructive pulmonary disease) Coronary artery disease (2006) Depression (2008) Diabetes (1994) Eczema Foot pain GERD (gastroesophageal reflux disease) (2012) Gout Hearing reduced History of recurrent TIAs Hyperlipidemia Hypertension Hypothyroidism Kidney disease (2009) Measles (1955) Measles (1955) Mental health assessment declined Mumps (1958) Mumps (1958) Neuropathy Obstructive sleep apnea Otitis externa Screening for malignant neoplasm of colon Shoulder pain Sleep apnea Status post myocardial infarction Steatosis Strain of muscle of right groin region (03/30/18) Type 2 diabetes mellitus Well adult exam Surgical History Anesthesia History of heart artery stent (2006) History of heart artery stent (2010) Hx of shoulder surgery (2005) Family History Brother Age: 66 Diabetes mellitus Hyperlipidemia Mother Heart disease Hypertension Hyperlipidemia Diabetes mellitus Grandmother Diabetes mellitus Brother No problems noted. Sister Breast cancer Social History household members: family, children and other Smoking Status: Current every day smoker Tobacco: How many years used: 45 alcohol intake: current Smoking Status: Current every day smoker alcohol intake frequency: 3 or more drinks per day Substance Use Type: marijuana Exam <Azeem Del Real DO - Last Filed: 07/06/21 02:59> Narrative Exam Narrative: GENERAL: [65] year old patient appears stated age. Well-developed patient, in mild distress. HEAD: Atraumatic. Normocephalic. EYES: Pupils equal round and reactive. Extraocular motions intact. No scleral icterus. No injection or drainage. ENT: Nose without bleeding, purulent drainage. Throat without erythema, tonsillar hypertrophy or exudate. Airway patent. NECK: Trachea midline. Non tender CARDIOVASCULAR: Regular rate and rhythm without murmurs, gallops, or rubs. RESPIRATORY: Clear to auscultation. Breath sounds equal bilaterally. No wheezes, rales, or rhonchi. GASTROINTESTINAL: Abdomen soft, non-tender, nondistended. EXTREMITIES: No edema or joint tenderness. BACK: Nontender without deformity or crepitance. No flank tenderness. NEURO: AOx3. SKIN: No rash or erythema of visible areas Initial Vital Signs Initial Vital Signs: Vital Signs Temperature 97.2 F L 07/05/21 05:24 Pulse Rate 60 07/05/21 05:24 Respiratory Rate 20 07/05/21 05:24 Blood Pressure 151/72 H 07/05/21 05:24 Pulse Oximetry 97 07/05/21 05:24 <Josephine Lynn DO - Last Filed: 07/05/21 10:00> Initial Vital Signs Initial Vital Signs: Vital Signs Temperature 97.2 F L 07/05/21 05:24 Pulse Rate 60 07/05/21 05:24 Respiratory Rate 20 07/05/21 05:24 Blood Pressure 151/72 H 07/05/21 05:24 Pulse Oximetry 97 07/05/21 05:24 Course <Azeem Del Real DO - Last Filed: 07/06/21 02:59> Course Course Narrative: patient doing well after workup and evaluation thusfar. Some labs, medications still pending. Sign out to Dr. Lynn for final disposition Orders Ordered: Discontinued Medications Sodium Chloride (Normal Saline 0.9%) 1,000 mls @ 1,000 mls/hr IV BOLUS ONE Stop: 07/05/21 06:53 Last Infusion: 07/05/21 07:57 Dose: 0 mls/hr Documented by: Admin: 07/05/21 06:04 Dose: 1,000 mls/hr Documented by: PIPER Magnesium Sulfate (Magnesium Sulfate) 2 gm in 50 mls @ 25 mls/hr IV NOW ONE Stop: 07/05/21 08:24 Last Infusion: 07/05/21 09:35 Dose: 0 mls/hr Documented by: KELLIE Cosigned by: DERIAN Admin: 07/05/21 07:06 Dose: 25 mls/hr Documented by: PIPER Cosigned by: DERIAN Insulin Human Regular (Insulin Regular 100 Unit/Ml 3 Ml Vial) 10 unit SUBCUT NOW ONE Stop: 07/05/21 05:55 Last Admin: 07/05/21 06:04 Dose: 10 unit Documented by: PIPER Cosigned by: HGUBERN Vital Signs Vital signs: Vital Signs - 8 hr 07/05/21 05:24 07/05/21 05:40 07/05/21 06:00 Temperature 97.2 F L Pulse Rate 60 60 64 Respiratory Rate 20 Blood Pressure 151/72 H 169/73 H Pulse Oximetry 97 94 94 07/05/21 06:30 07/05/21 06:47 07/05/21 07:00 Temperature Pulse Rate 67 69 Respiratory Rate Blood Pressure 184/82 H 171/83 H Pulse Oximetry 94 91 07/05/21 07:01 07/05/21 07:30 07/05/21 07:31 Temperature Pulse Rate 70 64 63 Respiratory Rate Blood Pressure 163/70 H Pulse Oximetry 97 93 94 07/05/21 08:01 07/05/21 08:30 07/05/21 08:31 Temperature Pulse Rate 68 65 65 Respiratory Rate Blood Pressure 169/77 H Pulse Oximetry 95 95 95 07/05/21 08:45 07/05/21 08:50 07/05/21 09:00 Temperature Pulse Rate 69 82 Respiratory Rate 24 24 Blood Pressure 172/69 H Pulse Oximetry 96 94 <Josephine Lynn, DO - Last Filed: 07/05/21 10:00> Orders Ordered: Discontinued Medications Sodium Chloride (Normal Saline 0.9%) 1,000 mls @ 1,000 mls/hr IV BOLUS ONE Stop: 07/05/21 06:53 Last Infusion: 07/05/21 07:57 Dose: 0 mls/hr Documented by: Admin: 07/05/21 06:04 Dose: 1,000 mls/hr Documented by: PIPER Magnesium Sulfate (Magnesium Sulfate) 2 gm in 50 mls @ 25 mls/hr IV NOW ONE Stop: 07/05/21 08:24 Last Infusion: 07/05/21 09:35 Dose: 0 mls/hr Documented by: KELLIE Cosigned by: DERIAN Admin: 07/05/21 07:06 Dose: 25 mls/hr Documented by: PIPER Cosigned by: DERIAN Insulin Human Regular (Insulin Regular 100 Unit/Ml 3 Ml Vial) 10 unit SUBCUT NOW ONE Stop: 07/05/21 05:55 Last Admin: 07/05/21 06:04 Dose: 10 unit Documented by: PIPER Cosigned by: HGUBERN Vital Signs Vital signs: Vital Signs - 8 hr 07/05/21 05:24 07/05/21 05:40 07/05/21 06:00 Temperature 97.2 F L Pulse Rate 60 60 64 Respiratory Rate 20 Blood Pressure 151/72 H 169/73 H Pulse Oximetry 97 94 94 07/05/21 06:30 07/05/21 06:47 07/05/21 07:00 Temperature Pulse Rate 67 69 Respiratory Rate Blood Pressure 184/82 H 171/83 H Pulse Oximetry 94 91 07/05/21 07:01 07/05/21 07:30 07/05/21 07:31 Temperature Pulse Rate 70 64 63 Respiratory Rate Blood Pressure 163/70 H Pulse Oximetry 97 93 94 07/05/21 08:01 07/05/21 08:30 07/05/21 08:31 Temperature Pulse Rate 68 65 65 Respiratory Rate Blood Pressure 169/77 H Pulse Oximetry 95 95 95 07/05/21 08:45 07/05/21 08:50 07/05/21 09:00 Temperature Pulse Rate 69 82 Respiratory Rate 24 24 Blood Pressure 172/69 H Pulse Oximetry 96 94 MDM - Weakness <DO Dionna Gresham Last Filed: 07/06/21 02:59> Lab Data Result diagrams: 07/05/21 05:20 07/05/21 05:20 Labs: Lab Results 07/05/21 07/05/21 07/05/21 Range/Units 05:20 05:20 05:20 WBC 8.4 (4.5-11.0) X10^3/uL RBC 4.27 L (4.5-5.9) X10^6/uL Hgb 13.5 (13.5-17.5) g/dL Hct 39.8 L (41-53) % MCV 93.2 (80-100) fL MCH 31.6 (26-34) PG MCHC 33.9 (30-36) % RDW 14.4 (11.6-14.8) % Plt Count 170 (150-400) X10^3/uL Neut % (Auto) 70.9 (50-75) % Lymph % (Auto) 17.8 L (25-40) % [place] % (Auto) 8.3 (3-14) % Eos % (Auto) 2.6 (2-4) % Baso % (Auto) 0.4 (0-2) % Neut # (Auto) 5900 (7727-5734) /uL Lymph # (Auto) 1500 (3840-1340) /uL [place] # (Auto) 700 (0-900) /uL Eos # (Auto) 200 (0-450) /uL Baso # (Auto) 0 (0-100) /uL Sodium 133 L (137-145) mmol/L Potassium 4.0 (3.4-5.1) mmol/L Chloride 100 (98-107) mmol/L Carbon Dioxide 26 (22-32) mmol/L BUN 20 (9-20) mg/dL Creatinine 0.83 (0.66-1.25) mg/dL Estimated GFR > 60.0 (>60) mL/min BUN/Creatinine Ratio 24.1 H (6-22) Glucose 494 H* (80-110) mg/dL Calcium 8.9 (8.4-10.2) mg/dL Magnesium 1.3 L (1.6-2.3) mg/dL Total Bilirubin 0.4 (0.2-1.3) mg/dL AST 44 (17-59) IU/L ALT 43 (<50) IU/L Alkaline Phosphatase 64 (38-126) U/L Total Creatine Kinase 314 H (55-170) U/L CK-MB (CK-2) 4.61 H (<2.37) ng/mL CK-MB (CK-2) Rel Index 1.5 (1.5-5.0) % Troponin I < 0.012 (0.01-0.034) ng/mL NT-Pro-B Natriuret Pep 291 H (<125) pg/mL Total Protein 6.7 (6.3-8.2) g/dL Albumin 3.8 (3.5-5.0) g/dL Globulin 2.9 (1.7-4.1) g/dL Albumin/Globulin Ratio 1.3 (1.0-2.8) Ethyl Alcohol < 10 ( - 10) mg/dL 07/05/21 Range/Units 08:00 WBC (4.5-11.0) X10^3/uL RBC (4.5-5.9) X10^6/uL Hgb (13.5-17.5) g/dL Hct (41-53) % MCV (80-100) fL MCH (26-34) PG MCHC (30-36) % RDW (11.6-14.8) % Plt Count (150-400) X10^3/uL Neut % (Auto) (50-75) % Lymph % (Auto) (25-40) % [place] % (Auto) (3-14) % Eos % (Auto) (2-4) % Baso % (Auto) (0-2) % Neut # (Auto) (8202-9078) /uL Lymph # (Auto) (7360-4962) /uL [place] # (Auto) (0-900) /uL Eos # (Auto) (0-450) /uL Baso # (Auto) (0-100) /uL Sodium (137-145) mmol/L Potassium (3.4-5.1) mmol/L Chloride (98-107) mmol/L Carbon Dioxide (22-32) mmol/L BUN (9-20) mg/dL Creatinine (0.66-1.25) mg/dL Estimated GFR (>60) mL/min BUN/Creatinine Ratio (6-22) Glucose (80-110) mg/dL Calcium (8.4-10.2) mg/dL Magnesium (1.6-2.3) mg/dL Total Bilirubin (0.2-1.3) mg/dL AST (17-59) IU/L ALT (<50) IU/L Alkaline Phosphatase (38-126) U/L Total Creatine Kinase (55-170) U/L CK-MB (CK-2) (<2.37) ng/mL CK-MB (CK-2) Rel Index (1.5-5.0) % Troponin I < 0.012 (0.01-0.034) ng/mL NT-Pro-B Natriuret Pep (<125) pg/mL Total Protein (6.3-8.2) g/dL Albumin (3.5-5.0) g/dL Globulin (1.7-4.1) g/dL Albumin/Globulin Ratio (1.0-2.8) Ethyl Alcohol ( - 10) mg/dL Point of Care Testing Glucose POC 398 ECG Data Interpretation: EKG is normal sinus rhythm rate [60 ] and free of any signs of ischemia or ectopy. No ST segmental elevation or depression. No T wave inversions <Josephine Lynn, DO - Last Filed: 07/05/21 10:00> Lab Data Labs: Lab Results 07/05/21 07/05/21 07/05/21 Range/Units 05:20 05:20 05:20 WBC 8.4 (4.5-11.0) X10^3/uL RBC 4.27 L (4.5-5.9) X10^6/uL Hgb 13.5 (13.5-17.5) g/dL Hct 39.8 L (41-53) % MCV 93.2 (80-100) fL MCH 31.6 (26-34) PG MCHC 33.9 (30-36) % RDW 14.4 (11.6-14.8) % Plt Count 170 (150-400) X10^3/uL Neut % (Auto) 70.9 (50-75) % Lymph % (Auto) 17.8 L (25-40) % [place] % (Auto) 8.3 (3-14) % Eos % (Auto) 2.6 (2-4) % Baso % (Auto) 0.4 (0-2) % Neut # (Auto) 5900 (3384-1281) /uL Lymph # (Auto) 1500 (4490-0422) /uL [place] # (Auto) 700 (0-900) /uL Eos # (Auto) 200 (0-450) /uL Baso # (Auto) 0 (0-100) /uL Sodium 133 L (137-145) mmol/L Potassium 4.0 (3.4-5.1) mmol/L Chloride 100 (98-107) mmol/L Carbon Dioxide 26 (22-32) mmol/L BUN 20 (9-20) mg/dL Creatinine 0.83 (0.66-1.25) mg/dL Estimated GFR > 60.0 (>60) mL/min BUN/Creatinine Ratio 24.1 H (6-22) Glucose 494 H* (80-110) mg/dL Calcium 8.9 (8.4-10.2) mg/dL Magnesium 1.3 L (1.6-2.3) mg/dL Total Bilirubin 0.4 (0.2-1.3) mg/dL AST 44 (17-59) IU/L ALT 43 (<50) IU/L Alkaline Phosphatase 64 (38-126) U/L Total Creatine Kinase 314 H (55-170) U/L CK-MB (CK-2) 4.61 H (<2.37) ng/mL CK-MB (CK-2) Rel Index 1.5 (1.5-5.0) % Troponin I < 0.012 (0.01-0.034) ng/mL NT-Pro-B Natriuret Pep 291 H (<125) pg/mL Total Protein 6.7 (6.3-8.2) g/dL Albumin 3.8 (3.5-5.0) g/dL Globulin 2.9 (1.7-4.1) g/dL Albumin/Globulin Ratio 1.3 (1.0-2.8) Ethyl Alcohol < 10 ( - 10) mg/dL 07/05/21 Range/Units 08:00 WBC (4.5-11.0) X10^3/uL RBC (4.5-5.9) X10^6/uL Hgb (13.5-17.5) g/dL Hct (41-53) % MCV (80-100) fL MCH (26-34) PG MCHC (30-36) % RDW (11.6-14.8) % Plt Count (150-400) X10^3/uL Neut % (Auto) (50-75) % Lymph % (Auto) (25-40) % [place] % (Auto) (3-14) % Eos % (Auto) (2-4) % Baso % (Auto) (0-2) % Neut # (Auto) (3622-2750) /uL Lymph # (Auto) (8429-7490) /uL [place] # (Auto) (0-900) /uL Eos # (Auto) (0-450) /uL Baso # (Auto) (0-100) /uL Sodium (137-145) mmol/L Potassium (3.4-5.1) mmol/L Chloride (98-107) mmol/L Carbon Dioxide (22-32) mmol/L BUN (9-20) mg/dL Creatinine (0.66-1.25) mg/dL Estimated GFR (>60) mL/min BUN/Creatinine Ratio (6-22) Glucose (80-110) mg/dL Calcium (8.4-10.2) mg/dL Magnesium (1.6-2.3) mg/dL Total Bilirubin (0.2-1.3) mg/dL AST (17-59) IU/L ALT (<50) IU/L Alkaline Phosphatase (38-126) U/L Total Creatine Kinase (55-170) U/L CK-MB (CK-2) (<2.37) ng/mL CK-MB (CK-2) Rel Index (1.5-5.0) % Troponin I < 0.012 (0.01-0.034) ng/mL NT-Pro-B Natriuret Pep (<125) pg/mL Total Protein (6.3-8.2) g/dL Albumin (3.5-5.0) g/dL Globulin (1.7-4.1) g/dL Albumin/Globulin Ratio (1.0-2.8) Ethyl Alcohol ( - 10) mg/dL Point of Care Testing Glucose POC 398 MDM Narrative Medical decision making narrative: Patient is signed out to me by Dr. Del Real. He had a brief episode of hypotension making him feel dizzy and lightheaded. He has been in the emergency department now for number hours he has 2- troponins blood pressure has been rising and now actually hypertensive. He is overall feeling significantly better. He is ambulatory in the ED feeling much better Discharge Plan Departure Patient Disposition: Home Clinical Impression: Orthostatic hypotension Instructions: DI for Orthostatic Hypotension Activity Restrictions/Additional Instructions: *You have been diagnosed with low blood pressure *What to do: Her dizziness today with likely related to your low blood pressure. Blood pressure has improved blood work is reassuring. Continue to increase fluids and go home and rest. *Continue to take medications as directed *Follow up with your primary care provider in 2-3 days *Return to ER if you should have increased difficulty breathing, dizziness, weakness, numbness, tingling, chest pain any new, worsening or concerning symptoms Prescriptions: No Action meclizine 25 mg tablet 25 mg PO TID PRN (Reason: dizziness) Qty: 10 RF: 0 omeprazole 20 mg tablet,delayed release (DR/EC) 20 mg PO DAILY Qty: 90 RF: 0 (DME) Test strips 100 strip Qty: 1 RF: 10 tamsulosin [Flomax] 0.4 mg capsule 0.4 mg PO DAILY Qty: 90 RF: 1 beclomethasone dipropionate 40 mcg/actuation HFA aerosol breath activated 1 inhalation Inhalation BID Qty: 10.6 RF: 5 (DME) blood-glucose meter Kit See Rx Instructions .ROUTE .MEDSUPPLY Qty: 1 RF: 0 tizanidine 4 mg tablet 4 mg PO TID PRN (Reason: muscle spasticity) Qty: 90 RF: 1 (DME) Disabled Parking Permit See Rx Instructions .ROUTE .MEDSUPPLY Qty: 1 RF: 0 (DME) Blood Glucose Test Strip See Rx Instructions .ROUTE .MEDSUPPLY Qty: 100 RF: 6 (DME) lancets [BD Ultra Fine Lancets] 33 gauge misc See Rx Instructions .ROUTE .MEDSUPPLY Qty: 100 RF: 6 isosorbide mononitrate 60 mg tablet extended release 24 hr 60 mg PO QAM Qty: 90 RF: 2 gabapentin 300 mg capsule 900 mg PO BID Qty: 540 RF: 3 albuterol sulfate [Proventil HFA] 90 mcg/actuation HFA aerosol inhaler 2 puff INHALATION QID PRN (Reason: shortness of breath) Qty: 18 RF: 5 furosemide [Lasix] 20 mg tablet 20 mg PO DAILY Qty: 90 RF: 1 citalopram [Celexa] 40 mg tablet 40 mg PO DAILY Qty: 90 RF: 1 lorazepam 1 mg tablet 1 mg PO BID PRN (Reason: sedation) Qty: 30 RF: 1 ciprofloxacin-dexamethasone [Ciprodex] 0.3-0.1 % drops,suspension 4 drp otic (ear) Q12H Qty: 7.5 RF: 0 bupropion HCl [Wellbutrin SR] 150 mg tablet sustained-release 12 hr 150 mg PO DAILY Qty: 30 RF: 1 clopidogrel 75 mg tablet 75 mg PO DAILY Qty: 90 RF: 1 levothyroxine 125 mcg tablet 125 mcg PO DAILY Qty: 90 RF: 3 triamcinolone acetonide 0.1 % cream 1 applic TOP DAILY Qty: 30 RF: 5 (DME) pen needle, diabetic [Comfort EZ Pen [place]] 31 gauge x 5/16 needle See Dose Instructions .ROUTE .MEDSUPPLY Qty: 100 RF: 5 oxycodone 5 mg tablet 5 mg PO Q4-6H PRN (Reason: pain) Qty: 60 RF: 0 nitroglycerin 0.4 mg tablet, sublingual 0.4 mg sublingual PRN PRN (Reason: Chest Pain) RF: 0 atorvastatin 80 mg tablet 80 mg PO DAILY Qty: 90 RF: 3 metoprolol tartrate 50 mg tablet 50 mg PO BID Qty: 180 RF: 3 insulin glargine U-300 conc 300 unit/mL (3 mL) insulin pen 50 unit SUBCUT BID Qty: 15 RF: 11 furosemide 20 mg tablet 20 mg PO DAILY Qty: 90 RF: 1 mupirocin 2 % ointment 1 applictn TOP BID Qty: 30 RF: 1 Novolog Flexpen U-100 Insulin 100 unit/mL (3 mL) insulin pen See Rx Instructions SUBCUT .COMPLEX Qty: 15 RF: 11 lisinopril 2.5 mg tablet 2.5 mg PO QAM Qty: 90 RF: 1 ipratropium-albuterol 0.5 mg-3 mg(2.5 mg base)/3 mL Solution For Nebulization 3 ml INH QID Qty: 360 RF: 0 Referrals: Gasper Rutherford, [Primary Care Provider] -
[2021-07-05 05:36] LABS: Add Manual Diff / Slide Review NO; Basophils Absolute Auto 0 /uL (0-100); Basophils Percent Auto 0.4 % (0-2); Eosinophils Absolute Auto 200 /uL (0-450); Eosinophils Percent Auto 2.6 % (2-4); Hematocrit 39.8 % (41-53); Hemoglobin 13.5 g/dL (13.5-17.5); Lymphocytes Absolute Auto 1500 /uL (1100-4500); Lymphocytes Percent Auto 17.8 % (25-40); Mean Corpuscular HGB Conc 33.9 % (30-36); Mean Corpuscular Hemoglobin 31.6 PG (26-34); Mean Corpuscular Volume 93.2 fL (80-100); Monocytes Absolute Auto 700 /uL (0-900); Monocytes Percent Auto 8.3 % (3-14); Neutrophils Absolute Auto 5900 /uL (1500-7000); Neutrophils Percent Auto 70.9 % (50-75); Platelet Count 170 X10^3/uL (150-400); Red Blood Cell Count 4.27 X10^6/uL (4.5-5.9); Red Cell Distribution Width 14.4 % (11.6-14.8); White Blood Cell Count 8.4 X10^3/uL (4.5-11.0)
[2021-07-05 05:41] LABS: Alanine Aminotransferase 43 IU/L (<50); Albumin 3.8 g/dL (3.5-5.0); Albumin Globulin Ratio 1.3 (1.0-2.8); Alkaline Phosphatase 64 U/L (38-126); Aspartate Aminotransferase 44 IU/L (17-59); BUN Creatinine Ratio 24.1 (6-22); Bilirubin Total 0.4 mg/dL (0.2-1.3); Blood Urea Nitrogen 20 mg/dL (9-20); Calcium 8.9 mg/dL (8.4-10.2); Carbon Dioxide 26 mmol/L (22-32); Chloride 100 mmol/L (98-107); Creatine Kinase 314 U/L (55-170); Estimated Glomerular Filt Rate > 60.0 mL/min (>60); Globulin 2.9 g/dL (1.7-4.1); HEMOLYSIS < 15 (0-50); Magnesium 1.3 mg/dL (1.6-2.3); Sodium 133 mmol/L (137-145); Total Protein 6.7 g/dL (6.3-8.2)
[2021-07-05 05:52] LABS: Glucose 494 mg/dL (80-110); NT-proBNP (BNP-Adult 18+) 291 pg/mL (<125); Troponin I < 0.012 ng/mL (0.01-0.034)
[2021-07-05 05:56] LABS: CKMB % Relative Index 1.5 % (1.5-5.0); Creatine Kinase MB 4.61 ng/mL (<2.37)
[2021-07-05] MEDS: SODIUM CHLORIDE 0.9% 1,000 ML 1000 ML IV (06:04)
[2021-07-05] MEDS: INSULIN REGULAR 100 UNIT/ML 3 ML VIAL 10 UNIT SUBCUT (06:04)
[2021-07-05 06:09] LABS: Ethanol (ETOH) < 10 mg/dL
[2021-07-05] MEDS: MAGNESIUM SULFATE 2 GM/50 ML PIGGYBACK IV (07:06)
[2021-07-05 08:24] LABS: Troponin I < 0.012 ng/mL (0.01-0.034)
== END 2021-07-05 09:32 | disposition home or self-care (01) ==
PROVIDERS: Emergency Medicine; Emergency Provider Emergency Medicine; PCP Family Medicine
DX: I95.1 Orthostatic hypotension (principal); R07.9 Chest pain, unspecified
CPT/HCPCS: 80053; 80320; 82550; 82553; 82962; 83735; 83880; 84484; 85025; 93005; 96360; 96361; 96372; 99284; J3475

== ENCOUNTER 2021-08-12 16:43 | Emergency (ER) | payer MEDICARE, SELFPAY ==
[2021-02-25 15:36] VITALS: BMI 32.3
[2021-08-12] VITALS (9 sets, daily range): BP systolic 166–193; BP diastolic 81–112; PULSE 66–71; RESP 18; TEMP 36.4; O2SAT 93–97; BMI 35.5
--- NOTE | 2021-08-12 17:08 | DI.RAD.S_ITS ---
PROCEDURE: XR CHEST 1V INDICATIONS: suspected sepsis TECHNIQUE: One view of the chest was acquired. COMPARISON: [facility], CR, XR CHEST 1V, 04/29/2021, 8:41. FINDINGS: Surgical changes and devices: None. Lungs and pleura: Lungs are clear. No pleural effusions or pneumothorax. Mediastinum: Heart size is minimally enlarged. There is mild underlying vascular congestion present. No focal infiltrate or pneumothorax. Bones and chest wall: No suspicious bony lesions. Overlying soft tissues appear unremarkable. IMPRESSION: Cardiomegaly and mild vascular congestion Approved by: Terrence Harrell M.D. on 08/12/2021 at 17:20
--- NOTE | 2021-08-12 17:09 | DI.RAD.S_ITS ---
PROCEDURE: XR FOOT RT MIN 3V INDICATIONS: red, hot, swelling right foot TECHNIQUE: 3 views of the foot were acquired. COMPARISON: None. FINDINGS: Bones: No fractures or dislocations. No suspicious bony lesions. Calcaneal plantar spurring noted. Soft tissues: No tibiotalar joint effusion. Achilles tendon appears normal. Diffuse small vessel dense atherosclerotic vascular calcification. A generalized soft tissue swelling IMPRESSION: Generalized soft tissue swelling and diffuse of small-vessel atherosclerotic vascular calcification Approved by: Terrence Harrell M.D. on 08/12/2021 at 17:17
[2021-08-12] MEDS: ONDANSETRON 4 MG/2 ML INJ IV (17:19)
[2021-08-12 17:23] LABS: Add Manual Diff / Slide Review NO; Basophils Absolute Auto 100 /uL (0-100); Basophils Percent Auto 0.5 % (0-2); Eosinophils Absolute Auto 100 /uL (0-450); Eosinophils Percent Auto 1.3 % (2-4); Hematocrit 44.7 % (41-53); Hemoglobin 15.2 g/dL (13.5-17.5); Lymphocytes Absolute Auto 1500 /uL (1100-4500); Lymphocytes Percent Auto 12.9 % (25-40); Mean Corpuscular HGB Conc 34.1 % (30-36); Mean Corpuscular Hemoglobin 31.4 PG (26-34); Monocytes Absolute Auto 700 /uL (0-900); Monocytes Percent Auto 6.3 % (3-14); Neutrophils Absolute Auto 9200 /uL (1500-7000); Platelet Count 208 X10^3/uL (150-400); Red Blood Cell Count 4.86 X10^6/uL (4.5-5.9); White Blood Cell Count 11.7 X10^3/uL (4.5-11.0)
[2021-08-12 17:37] LABS: Alanine Aminotransferase 48 IU/L (<50); Albumin 4.2 g/dL (3.5-5.0); Albumin Globulin Ratio 1.2 (1.0-2.8); Alkaline Phosphatase 76 U/L (38-126); Aspartate Aminotransferase 50 IU/L (17-59); BUN Creatinine Ratio 15.9 (6-22); Bilirubin Total 0.7 mg/dL (0.2-1.3); Blood Urea Nitrogen 11 mg/dL (9-20); Calcium 9.3 mg/dL (8.4-10.2); Carbon Dioxide 29 mmol/L (22-32); Chloride 99 mmol/L (98-107); Creatine Kinase 261 U/L (55-170); Estimated Glomerular Filt Rate > 60.0 mL/min (>60); Globulin 3.4 g/dL (1.7-4.1); Glucose 244 mg/dL (80-110); HEMOLYSIS < 15 (0-50); Lactate (Lactic Acid) 1.5 mmol/L (0.7-2.1); Lipase 701 U/L (23-300); Potassium 4.1 mmol/L (3.4-5.1); Sodium 135 mmol/L (137-145); Total Protein 7.6 g/dL (6.3-8.2)
[2021-08-12 17:38] LABS: COVID19 -Nasal RAPID Negative (Negative)
[2021-08-12 17:49] LABS: NT-proBNP (BNP-Adult 18+) 288 pg/mL (<125); Troponin I < 0.012 ng/mL (0.01-0.034)
[2021-08-12 17:52] LABS: Creatine Kinase MB 5.19 ng/mL (<2.37)
[2021-08-12 17:53] LABS: Procalcitonin 0.08 ng/mL (<0.5)
[2021-08-12 18:01] LABS: Erythrocyte Sedimentation Rate 46 MM/HR (0-15)
--- NOTE | 2021-08-12 18:17 | DI.MRI.S_ITS ---
PROCEDURE: MR FOOT RT WO/W CON INDICATIONS: ?osteomyelitis - RIGHT FOOT PAIN AND SWELLING TECHNIQUE: Noncontrast sagittal T1 spin echo and T2 fast spin echo with fat saturation, long-axis T1 spin echo and T2 fast spin echo with fat saturation; short-axis T1 spin echo, proton density fast spin echo, and T2 fast spin echo with fat saturation through the forefoot. Post-contrast short axis, long axis, and sagittal T1 spin echo with fat saturation through the forefoot. COMPARISON: [facility], CR, XR FOOT RT MIN 3V, 08/12/2021, 17:17. FINDINGS: Image quality: Excellent. Bones and joints: No suspicious osseous or abnormal marrow edema to suggest osteomyelitis. Soft tissues: Diffuse circumferential edema with enhancement of the soft tissues is specially the dorsal side of the foot consistent with cellulitis. IMPRESSION: Cellulitis of the dorsal foot with no evidence of osteomyelitis. Dictated by: Gera Mckay M.D. on 08/12/2021 at 19:33 Approved by: Gera Mckay M.D. on 08/12/2021 at 19:39
[2021-08-12 19:54] LABS: Bacteria Urine None Seen; RBC Urine 5-10/HPF (0-5/HPF); WBC Urine 0-1/HPF (0-5/HPF)
[2021-08-12 19:55] LABS: Culture Indicated Urine Cult Not Indicated
[2021-08-12] MEDS: KETOROLAC 30 MG/ML VIAL 15 MG IV (19:59)
[2021-08-12] MEDS: TRIMETH/SULFA 160/800 (DS) TABLET 1 TAB PO (20:00)
[2021-08-12] MEDS: cephALEXin 250 MG CAPSULE 500 MG PO (20:00)
--- NOTE | 2021-08-12 20:02 | ED.EXTPRO ---
HPI - Extremity Problem <Fernando Chen PA-C - Last Filed: 08/12/21 20:28> General Chief complaint: Extremity Problem,Nontraumatic Stated complaint: Nausea, Red Rt Foot, Hx Diabetes Time Seen by Provider: 08/12/21 16:49 Source: patient Mode of arrival: Wheelchair Limitations: no limitations History of Present Illness HPI Narrative: 65-year-old male with past medical history diabetes, hyperlipidemia, hypertension, hypothyroidism, CHF, COPD, CAD presents to the ED with a right foot wound. Patient endorses that the wound has been going on for a month, but worsened over the last week and has become increasingly painful. Patient denies any discharge. Patient endorses some shortness of breath, which he says is baseline for him, given his CHF. Denies fever, chills, chest pain, cough, nausea, vomiting, abdominal pain, dysuria, lightheadedness, dizziness, syncope. Patient is on insulin, Lantus for diabetes. Endorses compliance with medications. Related Data Home Medications Medication Instructions Recorded Confirmed nitroglycerin 0.4 mg sublingual 0.4 mg SUBLINGUAL PRN PRN tab 12/21/19 08/06/21 tablet Previous Rx's Medication Instructions Recorded ipratropium 0.5 mg-albuterol 3 mg 3 ml INH QID #360 ml 03/12/19 (2.5 mg base)/3 mL nebulization soln meclizine 25 mg tablet 25 mg PO TID PRN #10 tab 10/12/19 omeprazole 20 mg tablet,delayed 20 mg PO DAILY #90 tab 02/17/20 release Test strips #1 each 03/22/20 insulin aspart U-100 100 unit/mL See Rx Instructions SUBCUT 05/01/20 (3 mL) subcutaneous pen (Novolog .COMPLEX #15 ml Flexpen U-100 Insulin aspart) tamsulosin 0.4 mg capsule (Flomax) 0.4 mg PO DAILY #90 cap 05/28/20 beclomethasone dipropionate 40 1 inhalation INHALATION BID #10.6 05/29/20 mcg/actuation HFA breath activated gram aerosol atorvastatin 80 mg tablet 80 mg PO DAILY #90 tab 08/22/20 metoprolol tartrate 50 mg tablet 50 mg PO BID #180 tab 08/22/20 blood-glucose meter #1 ea 01/11/21 tizanidine 4 mg tablet 4 mg PO TID PRN #90 tab 02/13/21 Disabled Parking Permit #1 ea 02/15/21 blood sugar diagnostic (Blood #100 ea 03/01/21 Glucose Test) lancets 33 gauge (BD Ultra Fine #100 ea 03/01/21 Lancets) isosorbide mononitrate 60 mg 60 mg PO QAM #90 tab 03/15/21 tablet,extended release 24 hr gabapentin 300 mg capsule 900 mg PO BID #540 cap 04/12/21 albuterol sulfate 90 mcg/actuation 2 puff INHALATION QID PRN #18 gram 04/22/21 aerosol inhaler (Proventil HFA) lorazepam 1 mg tablet 1 mg PO BID PRN #30 tab 05/08/21 levothyroxine 125 mcg tablet 125 mcg PO DAILY #90 tab 06/03/21 furosemide 20 mg tablet 20 mg PO DAILY #90 tab 06/11/21 pen needle, diabetic 31 gauge x #100 each 06/18/2103/17 (Comfort EZ Pen [place]) bupropion HCl 150 mg tablet,12 hr 150 mg PO DAILY #90 ea 07/15/21 sustained-release (Wellbutrin SR) clopidogrel 75 mg tablet 75 mg PO DAILY #90 tab 07/15/21 lisinopril 2.5 mg tablet 2.5 mg PO QAM #90 tab 07/15/21 mupirocin 2 % topical ointment 1 applic TOP BID #30 gram 07/15/21 triamcinolone acetonide 0.1 % 1 applic TOP DAILY #30 gram 07/15/21 topical cream oxycodone 5 mg tablet 5 mg PO Q4-6H PRN #60 tab 07/24/21 insulin glargine U-300 conc 300 80 unit SUBCUT BID #15 ml 07/25/21 unit/mL (3 mL) subcutaneous pen citalopram 40 mg tablet (Celexa) 40 mg PO DAILY #90 tab 08/08/21 cephalexin 500 mg capsule 500 mg PO Q6H 14 Days #56 cap 08/12/21 sulfamethoxazole 800 1 tab PO BID 14 Days #28 tab 08/12/21 mg-trimethoprim 160 mg tablet (Bactrim DS) Allergies Allergy/AdvReac Type Severity Reaction Status Date / Time adhesive Allergy Mild REDNESS/ITC Verified 08/12/21 16:49 HINESS morphine Allergy Verified 08/12/21 16:49 Review of Systems <Fernando Chen PA-C - Last Filed: 08/12/21 20:28> Constitutional Constitutional: Denies chills, Denies fatigue, Denies fever(s), Denies frequent falls, Denies lethargy and Denies weakness Eyes Eyes: Denies change in vision, Denies eye discharge, Denies irritation and Denies loss of vision ENT Ears, Nose, Mouth, and Throat: Denies change in voice, Denies dizziness, Denies neck pain, Denies sore throat and Denies throat swelling Cardiovascular Cardiovascular: Denies chest pain, Denies irregular heart rhythm, Denies lightheadedness, Denies palpitations, Denies dyspnea, Denies dyspnea on exertion and Denies orthopnea Respiratory Respiratory: Denies cough, Denies dyspnea, Denies dyspnea on exertion and Denies wheezing Gastrointestinal Gastrointestinal: Denies abdominal pain, Denies change in bowel habits, Denies diarrhea, Denies nausea and Denies vomiting Musculoskeletal Musculoskeletal: Denies neck pain and Denies numbness Integumentary/Breasts Skin/Breast: Denies pruritus, Denies erythema, Denies rash and Denies wounds Comments: Wound on dorsal right foot. Painful to touch. No discharge. Neurologic Neurologic: Denies behavioral changes, Denies confusion, Denies dizziness, Denies frequent falls, Denies loss of vision, Denies numbness and Denies weakness Psychiatric Psychiatric: Denies anxiety, Denies behavioral changes, Denies confusion, Denies depression, Denies homicidal ideation and Denies suicidal ideation Endocrine Endocrine: Denies fatigue, Denies flushing and Denies palpitations Hematologic/Lymphatic Hematologic/Lymphatic: Denies easy bruising Allergic/Immunologic Allergic/Immunologic: Denies urticaria, Denies throat swelling and Denies wheezing Patient History <Fernando Chen PA-C - Last Filed: 08/12/21 20:28> Medical History Bilateral otitis externa Cellulitis Chicken pox (1956) Chickenpox (1956) Chronic cough COPD (chronic obstructive pulmonary disease) Coronary artery disease (2006) Depression (2008) Diabetes (1994) Eczema Foot pain GERD (gastroesophageal reflux disease) (2012) Gout Hearing reduced Hip pain History of recurrent TIAs Hyperlipidemia Hypertension Hypothyroidism Kidney disease (2009) Measles (1955) Measles (1955) Mental health assessment declined Mumps (1958) Mumps (1958) Neuropathy Obstructive sleep apnea Otitis externa Screening for malignant neoplasm of colon Shoulder pain Sleep apnea Status post myocardial infarction Steatosis Strain of muscle of right groin region (03/30/18) Type 2 diabetes mellitus Well adult exam Surgical History Anesthesia History of heart artery stent (2006) History of heart artery stent (2010) Hx of shoulder surgery (2005) Family History Brother Age: 67 Diabetes mellitus Hyperlipidemia Mother Heart disease Hypertension Hyperlipidemia Diabetes mellitus Grandmother Diabetes mellitus Brother No problems noted. Sister Breast cancer Social History household members: family, children and other Smoking Status: Current every day smoker Tobacco: How many years used: 45 alcohol intake: current Smoking Status: Current every day smoker alcohol intake frequency: 3 or more drinks per day Substance Use Type: marijuana Exam <Fernando Chen PA-C - Last Filed: 08/12/21 20:28> Initial Vital Signs Initial Vital Signs: Vital Signs Temperature 97.5 F L 08/12/21 16:50 Pulse Rate 67 08/12/21 16:50 Respiratory Rate 18 08/12/21 16:50 Blood Pressure 181/82 H 08/12/21 16:50 Pulse Oximetry 97 08/12/21 16:50 Const General: cooperative HENMT Head: normocephalic and atraumatic Ears: external ears normal and TM's normal bilaterally Nose: external nose normal and No nasal discharge Face and sinus: sinuses nontender, face symmetric, no sinus tenderness and No dry mucous membranes Mouth: oral mucosae normal and moist mucous membranes Teeth and gingiva: dentition normal Throat: tonsils normal and uvula midline Eyes General: appearance normal, both eyes and all related structures Eyelids: eyelids normal Conjunctivae: conjunctivae normal Sclera: sclerae normal Pupils: PERRL EOM: EOM intact bilaterally Neck Neck: normal visual inspection, trachea midline, No lymphadenopathy, No midline deformity and No JVD Lymphatic: No lymphedema Chest Chest: normal inspection of the chest Resp Effort & Inspection: normal respiratory effort, able to speak in complete sentences, no respiratory distress and no use of accessory muscles Auscultation: clear to auscultation bilaterally, no rales, no rhonchi and no wheezes Cardio Rate: regular rate Rhythm: regular rhythm Heart Sounds: no click, no gallops, no murmurs and no rubs Pulses: normal peripheral pulses GI Inspection: non-distended Palpation: soft, no hepatosplenomegaly, No guarding, No pulsatile mass and No tender Auscultation: normal bowel sounds Back/Spine/Pelvis Back: No CVA tenderness Cervical Spine: cervical ROM normal and No pain with cervical ROM Thoracic/Lumbar Spine: thoracic and lumbar spine normal to inspection Skin General: No jaundice and No petechiae Other: Wound noted on dorsal right foot. Appears erythematous. No discharge. Tender to palpation. Neurovascularly intact Neuro General: patient alert, patient oriented x3, gait normal and no focal motor deficits Speech: speech normal Extrem General: full ROM, no clubbing, cyanosis or edema, no pedal edema and no calf tenderness Psych Appearance: well kempt Mental Status: mental status grossly normal Attitude: cooperative Thought Content: normal and suicidality Judgment: judgment good <Neri Burt DO - Last Filed: 08/13/21 07:00> Initial Vital Signs Initial Vital Signs: Vital Signs Temperature 97.5 F L 08/12/21 16:50 Pulse Rate 67 08/12/21 16:50 Respiratory Rate 18 08/12/21 16:50 Blood Pressure 181/82 H 08/12/21 16:50 Pulse Oximetry 97 08/12/21 16:50 Course <Fernando Chen PA-C - Last Filed: 08/12/21 20:28> Course Course Narrative: MRI and x-ray negative for osteomyelitis. MRI shows evidence of cellulitis. Patient started on Bactrim and Keflex in the ED. Toradol for pain. Will discharge home with prescription for cephalexin and Bactrim. ED return precautions discussed. Follow-up with PCP. Orders Ordered: Discontinued Medications Cephalexin HCl (Cephalexin 250 Mg Capsule) 500 mg PO NOW ONE Stop: 08/12/21 19:46 Last Admin: 08/12/21 20:00 Dose: 500 mg Documented by: SAMUELYLVIVIANE Ketorolac Tromethamine (Ketorolac 30 Mg/Ml Vial) 15 mg IV NOW ONE Stop: 08/12/21 19:48 Last Admin: 08/12/21 19:59 Dose: 15 mg Documented by: FERNANDO Ondansetron HCl (Ondansetron 4 Mg/2 Ml Inj) 4 mg IV NOW ONE Stop: 08/12/21 17:09 Last Admin: 08/12/21 17:19 Dose: 4 mg Documented by: SAMUELYLOR Trimethoprim/Sulfamethoxazole (Trimeth/Sulfa 160/800 (Ds) Tablet) 1 tab PO NOW ONE Stop: 08/12/21 19:46 Last Admin: 08/12/21 20:00 Dose: 1 tab Documented by: FERNANDO Vital Signs Vital signs: Vital Signs - 8 hr 08/12/21 16:50 08/12/21 16:59 08/12/21 17:00 Temperature 97.5 F L Pulse Rate 67 71 69 Respiratory Rate 18 18 18 Blood Pressure 181/82 H 187/91 H Pulse Oximetry 97 95 95 08/12/21 17:30 08/12/21 18:00 Temperature Pulse Rate 67 66 Respiratory Rate Blood Pressure 193/93 H 193/91 H Pulse Oximetry 94 94 <Neri Burt DO - Last Filed: 08/13/21 07:00> Orders Ordered: Discontinued Medications Cephalexin HCl (Cephalexin 250 Mg Capsule) 500 mg PO NOW ONE Stop: 08/12/21 19:46 Last Admin: 08/12/21 20:00 Dose: 500 mg Documented by: FERNANDO Ketorolac Tromethamine (Ketorolac 30 Mg/Ml Vial) 15 mg IV NOW ONE Stop: 08/12/21 19:48 Last Admin: 08/12/21 19:59 Dose: 15 mg Documented by: FERNANDO Ondansetron HCl (Ondansetron 4 Mg/2 Ml Inj) 4 mg IV NOW ONE Stop: 08/12/21 17:09 Last Admin: 08/12/21 17:19 Dose: 4 mg Documented by: FERNANDO Trimethoprim/Sulfamethoxazole (Trimeth/Sulfa 160/800 (Ds) Tablet) 1 tab PO NOW ONE Stop: 08/12/21 19:46 Last Admin: 08/12/21 20:00 Dose: 1 tab Documented by: FERNANDO Vital Signs Vital signs: Vital Signs - 8 hr 08/12/21 16:50 08/12/21 16:59 08/12/21 17:00 Temperature 97.5 F L Pulse Rate 67 71 69 Respiratory Rate 18 18 18 Blood Pressure 181/82 H 187/91 H Pulse Oximetry 97 95 95 08/12/21 17:30 08/12/21 18:00 Temperature Pulse Rate 67 66 Respiratory Rate Blood Pressure 193/93 H 193/91 H Pulse Oximetry 94 94 MDM - Extremity (Nontraumatic) <Fernando Chen PA-C - Last Filed: 08/12/21 20:28> Lab Data Lab results narrative: WBC not elevated. Result diagrams: 08/12/21 17:06 08/12/21 17:06 Labs: Lab Results 08/12/21 08/12/21 08/12/21 Range/Units 17:06 17:06 17:06 WBC 11.7 H (4.5-11.0) X10^3/uL RBC 4.86 (4.5-5.9) X10^6/uL Hgb 15.2 (13.5-17.5) g/dL Hct 44.7 (41-53) % MCV 92.0 (80-100) fL MCH 31.4 (26-34) PG MCHC 34.1 (30-36) % RDW 15.0 H (11.6-14.8) % Plt Count 208 (150-400) X10^3/uL Neut % (Auto) 79.0 H (50-75) % Lymph % (Auto) 12.9 L (25-40) % [place] % (Auto) 6.3 (3-14) % Eos % (Auto) 1.3 L (2-4) % Baso % (Auto) 0.5 (0-2) % Neut # (Auto) 9200 H (9118-5565) /uL Lymph # (Auto) 1500 (3971-7930) /uL [place] # (Auto) 700 (0-900) /uL Eos # (Auto) 100 (0-450) /uL Baso # (Auto) 100 (0-100) /uL ESR (0-15) MM/HR Sodium 135 L (137-145) mmol/L Potassium 4.1 (3.4-5.1) mmol/L Chloride 99 (98-107) mmol/L Carbon Dioxide 29 (22-32) mmol/L BUN 11 (9-20) mg/dL Creatinine 0.69 (0.66-1.25) mg/dL Estimated GFR > 60.0 (>60) mL/min BUN/Creatinine Ratio 15.9 (6-22) Glucose 244 H (80-110) mg/dL Lactate 1.5 (0.7-2.1) mmol/L Calcium 9.3 (8.4-10.2) mg/dL Total Bilirubin 0.7 (0.2-1.3) mg/dL AST 50 (17-59) IU/L ALT 48 (<50) IU/L Alkaline Phosphatase 76 (38-126) U/L Total Creatine Kinase (55-170) U/L CK-MB (CK-2) (<2.37) ng/mL CK-MB (CK-2) Rel Index (1.5-5.0) % Troponin I (0.01-0.034) ng/mL C-Reactive Protein (<1.0) mg/dL NT-Pro-B Natriuret Pep (<125) pg/mL Total Protein 7.6 (6.3-8.2) g/dL Albumin 4.2 (3.5-5.0) g/dL Globulin 3.4 (1.7-4.1) g/dL Albumin/Globulin Ratio 1.2 (1.0-2.8) Lipase 701 H (23-300) U/L Procalcitonin 0.08 (<0.5) ng/mL Urine RBC (0-5/HPF) Urine WBC (0-5/HPF) Urine Bacteria (None) Ur Culture Indicated? SARS-CoV-2 (PCR) (Negative) 08/12/21 08/12/21 08/12/21 Range/Units 17:06 17:06 17:06 WBC (4.5-11.0) X10^3/uL RBC (4.5-5.9) X10^6/uL Hgb (13.5-17.5) g/dL Hct (41-53) % MCV (80-100) fL MCH (26-34) PG MCHC (30-36) % RDW (11.6-14.8) % Plt Count (150-400) X10^3/uL Neut % (Auto) (50-75) % Lymph % (Auto) (25-40) % [place] % (Auto) (3-14) % Eos % (Auto) (2-4) % Baso % (Auto) (0-2) % Neut # (Auto) (6433-2013) /uL Lymph # (Auto) (9080-0022) /uL [place] # (Auto) (0-900) /uL Eos # (Auto) (0-450) /uL Baso # (Auto) (0-100) /uL ESR 46 H (0-15) MM/HR Sodium (137-145) mmol/L Potassium (3.4-5.1) mmol/L Chloride (98-107) mmol/L Carbon Dioxide (22-32) mmol/L BUN (9-20) mg/dL Creatinine (0.66-1.25) mg/dL Estimated GFR (>60) mL/min BUN/Creatinine Ratio (6-22) Glucose (80-110) mg/dL Lactate (0.7-2.1) mmol/L Calcium (8.4-10.2) mg/dL Total Bilirubin (0.2-1.3) mg/dL AST (17-59) IU/L ALT (<50) IU/L Alkaline Phosphatase (38-126) U/L Total Creatine Kinase 261 H (55-170) U/L CK-MB (CK-2) 5.19 H (<2.37) ng/mL CK-MB (CK-2) Rel Index 2.0 (1.5-5.0) % Troponin I < 0.012 (0.01-0.034) ng/mL C-Reactive Protein (<1.0) mg/dL NT-Pro-B Natriuret Pep 288 H (<125) pg/mL Total Protein (6.3-8.2) g/dL Albumin (3.5-5.0) g/dL Globulin (1.7-4.1) g/dL Albumin/Globulin Ratio (1.0-2.8) Lipase (23-300) U/L Procalcitonin (<0.5) ng/mL Urine RBC (0-5/HPF) Urine WBC (0-5/HPF) Urine Bacteria (None) Ur Culture Indicated? SARS-CoV-2 (PCR) Negative (Negative) 08/12/21 08/12/21 Range/Units 17:06 19:13 WBC (4.5-11.0) X10^3/uL RBC (4.5-5.9) X10^6/uL Hgb (13.5-17.5) g/dL Hct (41-53) % MCV (80-100) fL MCH (26-34) PG MCHC (30-36) % RDW (11.6-14.8) % Plt Count (150-400) X10^3/uL Neut % (Auto) (50-75) % Lymph % (Auto) (25-40) % [place] % (Auto) (3-14) % Eos % (Auto) (2-4) % Baso % (Auto) (0-2) % Neut # (Auto) (4408-4899) /uL Lymph # (Auto) (1306-6622) /uL [place] # (Auto) (0-900) /uL Eos # (Auto) (0-450) /uL Baso # (Auto) (0-100) /uL ESR (0-15) MM/HR Sodium (137-145) mmol/L Potassium (3.4-5.1) mmol/L Chloride (98-107) mmol/L Carbon Dioxide (22-32) mmol/L BUN (9-20) mg/dL Creatinine (0.66-1.25) mg/dL Estimated GFR (>60) mL/min BUN/Creatinine Ratio (6-22) Glucose (80-110) mg/dL Lactate (0.7-2.1) mmol/L Calcium (8.4-10.2) mg/dL Total Bilirubin (0.2-1.3) mg/dL AST (17-59) IU/L ALT (<50) IU/L Alkaline Phosphatase (38-126) U/L Total Creatine Kinase (55-170) U/L CK-MB (CK-2) (<2.37) ng/mL CK-MB (CK-2) Rel Index (1.5-5.0) % Troponin I (0.01-0.034) ng/mL C-Reactive Protein 2.0 H (<1.0) mg/dL NT-Pro-B Natriuret Pep (<125) pg/mL Total Protein (6.3-8.2) g/dL Albumin (3.5-5.0) g/dL Globulin (1.7-4.1) g/dL Albumin/Globulin Ratio (1.0-2.8) Lipase (23-300) U/L Procalcitonin (<0.5) ng/mL Urine RBC 5-10/hpf H (0-5/HPF) Urine WBC 0-1/hpf (0-5/HPF) Urine Bacteria None seen (None) Ur Culture Indicated? Cult not indicated SARS-CoV-2 (PCR) (Negative) Point of Care Testing Glucose POC 228 Urine Dip Bedside Urine Glucose 500 mg/dl Bedside Urine Bilirubin - Negative Bedside Urine Ketone - Negative Urine Specific [place] 1.020 Bedside Urine Occult Blood +++ Bedside Urine pH 6.0 Bedside Urine Protein +++ 300 Bedside Urine Urobilinogen - Negative Bedside Urine Nitrite - Negative Bedside Urine Leukocytes - Negative Esterase Imaging Data Chest x-ray: Radiologist's Impression: PROCEDURE:? XR CHEST 1V ? INDICATIONS:? suspected sepsis ? TECHNIQUE:? One view of the chest was acquired.? ? COMPARISON:? [facility], , XR CHEST 1V, 04/29/2021, 8:41. ? FINDINGS:? ? Surgical changes and devices:? None.? ? Lungs and pleura:? Lungs are clear.? No pleural effusions or pneumothorax.? ? Mediastinum:? Heart size is minimally enlarged.? There is mild underlying vascular congestion present.? No focal infiltrate or pneumothorax. ? Bones and chest wall:? No suspicious bony lesions.? Overlying soft tissues appear unremarkable.? ? IMPRESSION:? ? Cardiomegaly and mild vascular congestion ? ? Approved by: Terrence Harrell M.D. on 08/12/2021 at 17:20? Extremity x-ray #1: Radiologist's Impression: PROCEDURE:? XR FOOT RT MIN 3V ? INDICATIONS:? red, hot, swelling right foot ? TECHNIQUE:? 3 views of the foot were acquired.? ? COMPARISON:? None. ? FINDINGS:? ? Bones:? No fractures or dislocations.? No suspicious bony lesions.? Calcaneal plantar spurring noted. ? Soft tissues:? No tibiotalar joint effusion.? Achilles tendon appears normal.? Diffuse small vessel dense atherosclerotic vascular calcification.? A generalized soft tissue swelling ? ? IMPRESSION:? ? Generalized soft tissue swelling and diffuse of small-vessel atherosclerotic vascular calcification ? ? ? Approved by: Terrence Harrell M.D. on 08/12/2021 at 17:17? Foot MRI: Radiologist's Impression: PROCEDURE:? MR FOOT RT WO/W CON ? INDICATIONS:? ?osteomyelitis - RIGHT FOOT PAIN AND SWELLING ? TECHNIQUE:? Noncontrast sagittal T1 spin echo and T2 fast spin echo with fat saturation, long-axis T1 spin echo and T2 fast spin echo with fat saturation; short-axis T1 spin echo, proton density fast spin echo, and T2 fast spin echo with fat saturation through the forefoot.? Post-contrast short axis, long axis, and sagittal T1 spin echo with fat saturation through the forefoot.? ? COMPARISON:? [facility], CR, XR FOOT RT MIN 3V, 08/12/2021, 17:17. ? FINDINGS:? Image quality:? Excellent.? ? Bones and joints:? No suspicious osseous or abnormal marrow edema to suggest osteomyelitis. ? Soft tissues:? Diffuse circumferential edema with enhancement of the soft tissues is specially the dorsal side of the foot consistent with cellulitis. ? IMPRESSION:? Cellulitis of the dorsal foot with no evidence of osteomyelitis. ? ? Dictated by: Gera Mckay M.D. on 08/12/2021 at 19:33 ? ? Approved by: Gera Mckay M.D. on 08/12/2021 at 19:39 ? MDM Narrative Medical decision making narrative: 65-year-old male with past medical history diabetes, hyperlipidemia, hypertension, hypothyroidism, CHF, COPD, CAD presents to the ED with a right foot wound. Concern for cellulitis versus osteomyelitis. Will order labs, ESR, CRP, x-ray, MRI foot. Will give Toradol for pain. Will reassess. <Neri Burt, - Last Filed: 08/13/21 07:00> Lab Data Labs: Lab Results 08/12/21 08/12/21 08/12/21 Range/Units 17:06 17:06 17:06 WBC 11.7 H (4.5-11.0) X10^3/uL RBC 4.86 (4.5-5.9) X10^6/uL Hgb 15.2 (13.5-17.5) g/dL Hct 44.7 (41-53) % MCV 92.0 (80-100) fL MCH 31.4 (26-34) PG MCHC 34.1 (30-36) % RDW 15.0 H (11.6-14.8) % Plt Count 208 (150-400) X10^3/uL Neut % (Auto) 79.0 H (50-75) % Lymph % (Auto) 12.9 L (25-40) % [place] % (Auto) 6.3 (3-14) % Eos % (Auto) 1.3 L (2-4) % Baso % (Auto) 0.5 (0-2) % Neut # (Auto) 9200 H (1994-2920) /uL Lymph # (Auto) 1500 (8179-9241) /uL [place] # (Auto) 700 (0-900) /uL Eos # (Auto) 100 (0-450) /uL Baso # (Auto) 100 (0-100) /uL ESR (0-15) MM/HR Sodium 135 L (137-145) mmol/L Potassium 4.1 (3.4-5.1) mmol/L Chloride 99 (98-107) mmol/L Carbon Dioxide 29 (22-32) mmol/L BUN 11 (9-20) mg/dL Creatinine 0.69 (0.66-1.25) mg/dL Estimated GFR > 60.0 (>60) mL/min BUN/Creatinine Ratio 15.9 (6-22) Glucose 244 H (80-110) mg/dL Lactate 1.5 (0.7-2.1) mmol/L Calcium 9.3 (8.4-10.2) mg/dL Total Bilirubin 0.7 (0.2-1.3) mg/dL AST 50 (17-59) IU/L ALT 48 (<50) IU/L Alkaline Phosphatase 76 (38-126) U/L Total Creatine Kinase (55-170) U/L CK-MB (CK-2) (<2.37) ng/mL CK-MB (CK-2) Rel Index (1.5-5.0) % Troponin I (0.01-0.034) ng/mL C-Reactive Protein (<1.0) mg/dL NT-Pro-B Natriuret Pep (<125) pg/mL Total Protein 7.6 (6.3-8.2) g/dL Albumin 4.2 (3.5-5.0) g/dL Globulin 3.4 (1.7-4.1) g/dL Albumin/Globulin Ratio 1.2 (1.0-2.8) Lipase 701 H (23-300) U/L Procalcitonin 0.08 (<0.5) ng/mL Urine RBC (0-5/HPF) Urine WBC (0-5/HPF) Urine Bacteria (None) Ur Culture Indicated? SARS-CoV-2 (PCR) (Negative) 08/12/21 08/12/21 08/12/21 Range/Units 17:06 17:06 17:06 WBC (4.5-11.0) X10^3/uL RBC (4.5-5.9) X10^6/uL Hgb (13.5-17.5) g/dL Hct (41-53) % MCV (80-100) fL MCH (26-34) PG MCHC (30-36) % RDW (11.6-14.8) % Plt Count (150-400) X10^3/uL Neut % (Auto) (50-75) % Lymph % (Auto) (25-40) % [place] % (Auto) (3-14) % Eos % (Auto) (2-4) % Baso % (Auto) (0-2) % Neut # (Auto) (4912-6183) /uL Lymph # (Auto) (9808-9396) /uL [place] # (Auto) (0-900) /uL Eos # (Auto) (0-450) /uL Baso # (Auto) (0-100) /uL ESR 46 H (0-15) MM/HR Sodium (137-145) mmol/L Potassium (3.4-5.1) mmol/L Chloride (98-107) mmol/L Carbon Dioxide (22-32) mmol/L BUN (9-20) mg/dL Creatinine (0.66-1.25) mg/dL Estimated GFR (>60) mL/min BUN/Creatinine Ratio (6-22) Glucose (80-110) mg/dL Lactate (0.7-2.1) mmol/L Calcium (8.4-10.2) mg/dL Total Bilirubin (0.2-1.3) mg/dL AST (17-59) IU/L ALT (<50) IU/L Alkaline Phosphatase (38-126) U/L Total Creatine Kinase 261 H (55-170) U/L CK-MB (CK-2) 5.19 H (<2.37) ng/mL CK-MB (CK-2) Rel Index 2.0 (1.5-5.0) % Troponin I < 0.012 (0.01-0.034) ng/mL C-Reactive Protein (<1.0) mg/dL NT-Pro-B Natriuret Pep 288 H (<125) pg/mL Total Protein (6.3-8.2) g/dL Albumin (3.5-5.0) g/dL Globulin (1.7-4.1) g/dL Albumin/Globulin Ratio (1.0-2.8) Lipase (23-300) U/L Procalcitonin (<0.5) ng/mL Urine RBC (0-5/HPF) Urine WBC (0-5/HPF) Urine Bacteria (None) Ur Culture Indicated? SARS-CoV-2 (PCR) Negative (Negative) 08/12/21 08/12/21 Range/Units 17:06 19:13 WBC (4.5-11.0) X10^3/uL RBC (4.5-5.9) X10^6/uL Hgb (13.5-17.5) g/dL Hct (41-53) % MCV (80-100) fL MCH (26-34) PG MCHC (30-36) % RDW (11.6-14.8) % Plt Count (150-400) X10^3/uL Neut % (Auto) (50-75) % Lymph % (Auto) (25-40) % [place] % (Auto) (3-14) % Eos % (Auto) (2-4) % Baso % (Auto) (0-2) % Neut # (Auto) (2756-4091) /uL Lymph # (Auto) (1493-4179) /uL [place] # (Auto) (0-900) /uL Eos # (Auto) (0-450) /uL Baso # (Auto) (0-100) /uL ESR (0-15) MM/HR Sodium (137-145) mmol/L Potassium (3.4-5.1) mmol/L Chloride (98-107) mmol/L Carbon Dioxide (22-32) mmol/L BUN (9-20) mg/dL Creatinine (0.66-1.25) mg/dL Estimated GFR (>60) mL/min BUN/Creatinine Ratio (6-22) Glucose (80-110) mg/dL Lactate (0.7-2.1) mmol/L Calcium (8.4-10.2) mg/dL Total Bilirubin (0.2-1.3) mg/dL AST (17-59) IU/L ALT (<50) IU/L Alkaline Phosphatase (38-126) U/L Total Creatine Kinase (55-170) U/L CK-MB (CK-2) (<2.37) ng/mL CK-MB (CK-2) Rel Index (1.5-5.0) % Troponin I (0.01-0.034) ng/mL C-Reactive Protein 2.0 H (<1.0) mg/dL NT-Pro-B Natriuret Pep (<125) pg/mL Total Protein (6.3-8.2) g/dL Albumin (3.5-5.0) g/dL Globulin (1.7-4.1) g/dL Albumin/Globulin Ratio (1.0-2.8) Lipase (23-300) U/L Procalcitonin (<0.5) ng/mL Urine RBC 5-10/hpf H (0-5/HPF) Urine WBC 0-1/hpf (0-5/HPF) Urine Bacteria None seen (None) Ur Culture Indicated? Cult not indicated SARS-CoV-2 (PCR) (Negative) Point of Care Testing Glucose POC 228 Urine Dip Bedside Urine Glucose 500 mg/dl Bedside Urine Bilirubin - Negative Bedside Urine Ketone - Negative Urine Specific [place] 1.020 Bedside Urine Occult Blood +++ Bedside Urine pH 6.0 Bedside Urine Protein +++ 300 Bedside Urine Urobilinogen - Negative Bedside Urine Nitrite - Negative Bedside Urine Leukocytes - Negative Esterase Discharge Plan Departure Patient Disposition: Home Clinical Impression: Cellulitis Qualifiers: Site of cellulitis: extremity Site of cellulitis of extremity: lower extremity Laterality: right Qualified Code(s): L03.115 - Cellulitis of right lower limb Instructions: DI for Cellulitis -- Adult Activity Restrictions/Additional Instructions: You are evaluated in the ED today for a foot wound. Your x-ray and MRI to not show any evidence of osteomyelitis, but shows cellulitis, which is a skin infection of your foot. You were started on Bactrim and cephalexin in the ED. Please complete your course of Bactrim and cephalexin. Return to the ED if your symptoms do not improve, or you develop a fever, shortness of breath or chest pain. Prescriptions: New cephalexin 500 mg capsule 500 mg PO Q6H 14 Days Qty: 56 RF: 0 sulfamethoxazole-trimethoprim [Bactrim DS] 800-160 mg tablet 1 tab PO BID 14 Days Qty: 28 RF: 0 No Action meclizine 25 mg tablet 25 mg PO TID PRN (Reason: dizziness) Qty: 10 RF: 0 omeprazole 20 mg tablet,delayed release (DR/EC) 20 mg PO DAILY Qty: 90 RF: 0 (DME) Test strips 100 strip Qty: 1 RF: 10 tamsulosin [Flomax] 0.4 mg capsule 0.4 mg PO DAILY Qty: 90 RF: 1 beclomethasone dipropionate 40 mcg/actuation HFA aerosol breath activated 1 inhalation Inhalation BID Qty: 10.6 RF: 5 (DME) blood-glucose meter Kit See Rx Instructions .ROUTE .MEDSUPPLY Qty: 1 RF: 0 tizanidine 4 mg tablet 4 mg PO TID PRN (Reason: muscle spasticity) Qty: 90 RF: 1 (DME) Disabled Parking Permit See Rx Instructions .ROUTE .MEDSUPPLY Qty: 1 RF: 0 (DME) Blood Glucose Test Strip See Rx Instructions .ROUTE .MEDSUPPLY Qty: 100 RF: 6 (DME) lancets [BD Ultra Fine Lancets] 33 gauge misc See Rx Instructions .ROUTE .MEDSUPPLY Qty: 100 RF: 6 isosorbide mononitrate 60 mg tablet extended release 24 hr 60 mg PO QAM Qty: 90 RF: 2 gabapentin 300 mg capsule 900 mg PO BID Qty: 540 RF: 3 albuterol sulfate [Proventil HFA] 90 mcg/actuation HFA aerosol inhaler 2 puff INHALATION QID PRN (Reason: shortness of breath) Qty: 18 RF: 5 lorazepam 1 mg tablet 1 mg PO BID PRN (Reason: sedation) Qty: 30 RF: 1 levothyroxine 125 mcg tablet 125 mcg PO DAILY Qty: 90 RF: 3 (DME) pen needle, diabetic [Comfort EZ Pen [place]] 31 gauge x 5/16 needle See Dose Instructions .ROUTE .MEDSUPPLY Qty: 100 RF: 5 lisinopril 2.5 mg tablet 2.5 mg PO QAM Qty: 90 RF: 3 clopidogrel 75 mg tablet 75 mg PO DAILY Qty: 90 RF: 3 bupropion HCl [Wellbutrin SR] 150 mg tablet sustained-release 12 hr 150 mg PO DAILY Qty: 90 RF: 1 oxycodone 5 mg tablet 5 mg PO Q4-6H PRN (Reason: pain) Qty: 60 RF: 0 insulin glargine U-300 conc 300 unit/mL (3 mL) insulin pen 80 unit SUBCUT BID Qty: 15 RF: 11 citalopram [Celexa] 40 mg tablet 40 mg PO DAILY Qty: 90 RF: 1 nitroglycerin 0.4 mg tablet, sublingual 0.4 mg sublingual PRN PRN (Reason: Chest Pain) RF: 0 atorvastatin 80 mg tablet 80 mg PO DAILY Qty: 90 RF: 3 metoprolol tartrate 50 mg tablet 50 mg PO BID Qty: 180 RF: 3 furosemide 20 mg tablet 20 mg PO DAILY Qty: 90 RF: 1 mupirocin 2 % ointment 1 applic TOP BID Qty: 30 RF: 1 triamcinolone acetonide 0.1 % cream 1 applic TOP DAILY Qty: 30 RF: 5 Novolog Flexpen U-100 Insulin 100 unit/mL (3 mL) insulin pen See Rx Instructions SUBCUT .COMPLEX Qty: 15 RF: 11 ipratropium-albuterol 0.5 mg-3 mg(2.5 mg base)/3 mL Solution For Nebulization 3 ml INH QID Qty: 360 RF: 0 Referrals: Gasper Rutherford DO [Primary Care Provider] - <Neri Burt DO - Last Filed: 08/13/21 07:00> [facility]: Dr Burt Co-Sign Statement: I was available for consultation during this patient's emergency department visit. This chart is signed by myself for administrative purposes only. I did not have direct contact with this patient during this visit. They were seen independently by the APC.
== END 2021-08-12 20:14 | disposition home or self-care (01) ==
PROVIDERS: Emergency Provider Student in an Organized Health Care Education/Training Program; PCP Family Medicine
DX: L03.115 Cellulitis of right lower limb (principal); R06.02 Shortness of breath; Z20.822 Contact with and (suspected) exposure to COVID-19
CPT/HCPCS: 36415; 71045; 73630; 73720; 80053; 81003; 81015; 82550; 82553; 82962; 83605; 83690; 83880; 84145; 84484; 85025; 85651; 86140; 87040; 87635; 93005; 93010; 96374; 96375; 99284; 99285; C9803; J1885; J2405

== ENCOUNTER 2021-08-16 23:18 | Emergency (ER) | payer MEDICARE, SELFPAY ==
[2021-02-25 15:36] VITALS: BMI 32.3
[2021-08-16 23:20] VITALS: O2SAT 94
[2021-08-16 23:21] VITALS: BP 137/63; PULSE 68; O2SAT 93
[2021-08-16 23:24] VITALS: PULSE 68; O2SAT 94
--- NOTE | 2021-08-16 23:24 | DI.RAD.S_ITS ---
PROCEDURE: XR HIP W PEL IF DONE RT 2V INDICATIONS: right hip pain, fall, splints with r leg forward. TECHNIQUE: AP pelvis with lateral view(s) of the right hip(s). COMPARISON: [facility], , XR HIP W PEL IF DONE RT 2V, 08/30/2018, 20:27. FINDINGS: Bones: No fractures or dislocations. Pelvic ring appears intact. No suspicious bony lesions. Soft tissues: The visualized bowel gas pattern is normal. No suspicious soft tissue calcifications. IMPRESSION: No fracture. No osseous lesion. If symptoms and/or clinical suspicion for pathology persists, further assessment with repeat radiographs (7-10 days) or advanced imaging (e.g. CT, MRI or bone scan) should be considered. Dictated by: Cesia Cooper MD, PhD on 08/16/2021 at 23:43 Approved by: Cesia Cooper MD, PhD on 08/16/2021 at 23:43
[2021-08-16 23:25] VITALS: BP 143/66
[2021-08-16 23:27] VITALS: BP 137/63; PULSE 68; RESP 17; TEMP 37.4; O2SAT 95; BMI 35.5
[2021-08-16 23:30] VITALS: BP 158/72
[2021-08-16] MEDS: HYDROMORPHONE 0.5 MG INJ IV (23:39)
[2021-08-17] VITALS: BP 124/58
--- NOTE | 2021-08-17 00:05 | ED.FALL ---
HPI - Fall General Chief Complaint: Fall Stated Complaint: GLF Thinners Time Seen by Provider: 08/16/21 23:24 Source: patient and EMS Mode of arrival: EMS Limitations: no limitations History of Present Illness HPI Narrative: This is a 65-year-old male who comes emergency department with ground level fall. Patient states he slipped and perform the splits with his right leg going anteriorly and his left leg going posteriorly. Patient felt pain and pop or cracking sensation in his right hip and states he is unable to bear weight and is significantly painful. Denies striking his head. No loss of consciousness. No headache Denies any neck or back pain. He denies any other injuries. Denies any shortness of breath. No nausea or vomiting or other GI or urinary symptoms. Patient denies any numbness or tingling in his lower extremity. He had fentanyl 150 mcg and route with moderate improvement. He does take Plavix daily. Patient has multiple medical issues including diabetes, hypertension, dyslipidemia hypothyroidism, CHF, CAD cardiac stents and COPD. He was seen here recently on the 12 of August for a wound on his foot. Patient states wound has not been worsening. Related Data Previous Rx's Medication Instructions Recorded ipratropium 0.5 mg-albuterol 3 mg 3 ml INH QID #360 ml 03/12/19 (2.5 mg base)/3 mL nebulization soln meclizine 25 mg tablet 25 mg PO TID PRN #10 tab 10/12/19 Test strips #1 each 03/22/20 insulin aspart U-100 100 unit/mL See Rx Instructions SUBCUT 05/01/20 (3 mL) subcutaneous pen (Novolog .COMPLEX #15 ml Flexpen U-100 Insulin aspart) beclomethasone dipropionate 40 1 inhalation INHALATION BID #10.6 05/29/20 mcg/actuation HFA breath activated gram aerosol atorvastatin 80 mg tablet 80 mg PO DAILY #90 tab 08/22/20 metoprolol tartrate 50 mg tablet 50 mg PO BID #180 tab 08/22/20 blood-glucose meter #1 ea 01/11/21 Disabled [address]ing Permit #1 ea 02/15/21 blood sugar diagnostic (Blood #100 ea 03/01/21 Glucose Test) lancets 33 gauge (BD Ultra Fine #100 ea 03/01/21 Lancets) isosorbide mononitrate 60 mg 60 mg PO QAM #90 tab 03/15/21 tablet,extended release 24 hr gabapentin 300 mg capsule 900 mg PO BID #540 cap 04/12/21 albuterol sulfate 90 mcg/actuation 2 puff INHALATION QID PRN #18 gram 04/22/21 aerosol inhaler (Proventil HFA) levothyroxine 125 mcg tablet 125 mcg PO DAILY #90 tab 06/03/21 furosemide 20 mg tablet 20 mg PO DAILY #90 tab 06/11/21 pen needle, diabetic 31 gauge x #100 each 06/18/2103/17 (Comfort EZ Pen [place]) bupropion HCl 150 mg tablet,12 hr 150 mg PO DAILY #90 ea 07/15/21 sustained-release (Wellbutrin SR) clopidogrel 75 mg tablet 75 mg PO DAILY #90 tab 07/15/21 lisinopril 2.5 mg tablet 2.5 mg PO QAM #90 tab 07/15/21 triamcinolone acetonide 0.1 % 1 applic TOP DAILY #30 gram 07/15/21 topical cream oxycodone 5 mg tablet 5 mg PO Q4-6H PRN #60 tab 07/24/21 insulin glargine U-300 conc 300 80 unit SUBCUT BID #15 ml 07/25/21 unit/mL (3 mL) subcutaneous pen citalopram 40 mg tablet (Celexa) 40 mg PO DAILY #90 tab 08/08/21 cephalexin 500 mg capsule 500 mg PO Q6H 14 Days #56 cap 08/12/21 sulfamethoxazole 800 1 tab PO BID 14 Days #28 tab 08/12/21 mg-trimethoprim 160 mg tablet (Bactrim DS) lorazepam 1 mg tablet 1 mg PO BID PRN #30 tab 08/13/21 mupirocin 2 % topical ointment 1 applic TOP BID #30 gram 08/13/21 nitroglycerin 0.4 mg sublingual 0.4 mg SUBLINGUAL PRN PRN #20 tab 08/13/21 tablet omeprazole 20 mg tablet,delayed 20 mg PO DAILY #90 tab 08/13/21 release tamsulosin 0.4 mg capsule (Flomax) 0.4 mg PO DAILY #90 cap 08/13/21 tizanidine 4 mg tablet 4 mg PO TID PRN #90 tab 08/16/21 lorazepam 1 mg tablet (Ativan) 1 mg PO TID PRN #10 tab 08/17/21 oxycodone 5 mg tablet 5 mg PO Q6H PRN #10 tab 08/17/21 Allergies Allergy/AdvReac Type Severity Reaction Status Date / Time adhesive Allergy Mild REDNESS/ITC Verified 08/12/21 16:49 HINESS morphine Allergy Verified 08/12/21 16:49 Review of Systems Review of Systems ROS Unobtainable: All systems reviewed & are unremarkable except as noted in HPI and below Patient History Medical History Bilateral otitis externa Cellulitis Chicken pox (1956) Chickenpox (1956) Chronic cough COPD (chronic obstructive pulmonary disease) Coronary artery disease (2006) Depression (2008) Diabetes (1994) Eczema Foot pain GERD (gastroesophageal reflux disease) (2012) Gout Hearing reduced Hip pain History of recurrent TIAs Hyperlipidemia Hypertension Hypothyroidism Kidney disease (2009) Measles (1955) Measles (1955) Mental health assessment declined Mumps (1958) Mumps (1958) Neuropathy Obstructive sleep apnea Otitis externa Screening for malignant neoplasm of colon Shoulder pain Sleep apnea Status post myocardial infarction Steatosis Strain of muscle of right groin region (03/30/18) Type 2 diabetes mellitus Well adult exam Surgical History Anesthesia History of heart artery stent (2006) History of heart artery stent (2010) Hx of shoulder surgery (2005) Family History Brother Age: 67 Diabetes mellitus Hyperlipidemia Mother Heart disease Hypertension Hyperlipidemia Diabetes mellitus Grandmother Diabetes mellitus Brother No problems noted. Sister Breast cancer Social History household members: family, children and other Smoking Status: Current every day smoker Tobacco: How many years used: 45 alcohol intake: current Smoking Status: Current every day smoker alcohol intake frequency: 3 or more drinks per day Substance Use Type: marijuana Exam Narrative Exam Narrative: GENERAL: Alert and oriented x three, chronically, ill-appearing male in moderate distress. HEENT: Head normocephalic, atraumatic, EOMI, pupils reactive, face symmetric, moist mucous membranes NECK: Supple, full range of motion, no cervical motion tenderness. Full range of motion. Nontender. CARDIOVASCULAR: Regular rate and rhythm without murmurs, rubs or gallops. RESPIRATORY: Breath sounds equal bilaterally, no wheezes rales or rhonchi. ABDOMEN: Soft, nontender. Normoactive bowel sounds all 4 quadrants. No guarding or rebound, rigidity, no mass : No CVA tenderness EXTREMITIES: Decreased range of motion of the right hip. Patient does have some tenderness over the greater trochanter itself. No obvious deformity. Patient does not have any significant internal or external rotation of the lower extremity. He has sensation intact to touch bilaterally which is equal. Patient appears to have poor circulation with hyperkeratotic, flaky skin with a cap refill being about 3-4 seconds in both feet. Patient does not have any other bony tenderness on exam. NEUROLOGICAL: Cranial nerves II through XII grossly intact. GCS 15 SKIN: Warm, dry, no petechiae, no rashes or lesions. Initial Vital Signs Initial Vital Signs: Vital Signs Pulse Oximetry 94 08/16/21 23:20 Course Orders Ordered: ED Orders 08/16/21 23:24 XR hip w pel if done RT 2V Stat 08/17/21 00:29 CT pelvis wo con Stat 08/17/21 00:45 Basic Metabolic Panel Stat Complete Blood Count AUTO DIFF Stat Discontinued Medications Hydromorphone HCl (Hydromorphone 0.5 Mg Inj) 0.5 mg IV NOW ONE Stop: 08/16/21 23:25 Last Admin: 08/16/21 23:39 Dose: 0.5 mg Documented by: IDRIS Hydromorphone HCl (Hydromorphone 0.5 Mg Inj) 0.5 mg IV NOW ONE Stop: 08/17/21 01:38 Last Admin: 08/17/21 01:47 Dose: 0.5 mg Documented by: IDRIS Ketorolac Tromethamine (Ketorolac 30 Mg/Ml Vial) 30 mg IV NOW ONE Stop: 08/17/21 00:31 Last Admin: 08/17/21 00:39 Dose: 30 mg Documented by: IDRIS Lorazepam (Lorazepam 0.5 Mg Tablet) 1 mg PO NOW ONE Stop: 08/17/21 01:24 Last Admin: 08/17/21 01:46 Dose: 1 mg Documented by: IDRIS Ondansetron HCl (Ondansetron 4 Mg/2 Ml Inj) 4 mg IV NOW ONE Stop: 08/17/21 03:00 Last Admin: 08/17/21 03:05 Dose: 4 mg Documented by: JACOB Oxycodone/Acetaminophen (Oxycodone/Acetaminophen 5/325 Tablet) 2 tab PO NOW ONE Stop: 08/17/21 04:15 Last Admin: 08/17/21 04:36 Dose: 2 tab Documented by: JACOB Reevaluation(s) Reevaluation #1: Patient is quite uncomfortable. He states he is not able to move his leg or get up to try to walk. CT pelvis to evaluate him more closely was ordered. Reevaluation #2: Reviewed with patient his imaging is negative. Baseline labs were obtained. Patient has some improved pain control after some additional medication and a benzodiazepine for some muscle relaxation. Patient has not attempted to ambulate yet. We will try ambulation with walker and re-evaluate. Patient lives alone he has a son locally but they are semi estranged. He states he does have seen her group to help him get to appointments and states he has actually been looking at home and home assistance part-time. Reevaluation #3: Patient will better after some pain control. He ambulated with walker and was able to ambulate about the department. He is able to go to the bathroom, get off the stool, get to the door and exit the room without any assistance. On re-evaluation patient is still having some pain but ask can try some oral pain medication instead he would like to return home and feels safe but does feel a walker would be helpful. He did have some improvement of his symptoms with the Ativan as well for muscle spasm. We reviewed his x-ray and CT pelvis which were both negative. Patient has not had any other complaints that make me suspicious for other injuries at this time. Vital Signs Vital signs: Vital Signs - 8 hr 08/17/21 00:00 08/17/21 00:30 08/17/21 00:42 Pulse Rate Blood Pressure 124/58 L 163/73 H 168/79 H Pulse Oximetry 08/17/21 00:43 08/17/21 06:11 Pulse Rate 73 Blood Pressure 157/70 H 132/60 Pulse Oximetry 92 MDM - Fall Lab Data Result diagrams: 08/17/21 00:45 08/17/21 00:45 Labs: Lab Results 08/17/21 08/17/21 Range/Units 00:45 00:45 WBC 10.1 (4.5-11.0) X10^3/uL RBC 4.44 L (4.5-5.9) X10^6/uL Hgb 13.7 (13.5-17.5) g/dL Hct 41.1 (41-53) % MCV 92.4 (80-100) fL MCH 30.8 (26-34) PG MCHC 33.3 (30-36) % RDW 15.1 H (11.6-14.8) % Plt Count 225 (150-400) X10^3/uL Neut % (Auto) 71.9 (50-75) % Lymph % (Auto) 17.4 L (25-40) % [place] % (Auto) 7.7 (3-14) % Eos % (Auto) 2.7 (2-4) % Baso % (Auto) 0.3 (0-2) % Neut # (Auto) 7300 H (8387-8839) /uL Lymph # (Auto) 1800 (0217-4201) /uL [place] # (Auto) 800 (0-900) /uL Eos # (Auto) 300 (0-450) /uL Baso # (Auto) 0 (0-100) /uL Sodium 138 (137-145) mmol/L Potassium 4.7 (3.4-5.1) mmol/L Chloride 104 (98-107) mmol/L Carbon Dioxide 28 (22-32) mmol/L BUN 22 H (9-20) mg/dL Creatinine 1.22 (0.66-1.25) mg/dL Estimated GFR 59.2 L (>60) mL/min BUN/Creatinine Ratio 18.0 (6-22) Glucose 80 D (80-110) mg/dL Calcium 9.4 (8.4-10.2) mg/dL Imaging Data Extremity x-ray #1: Radiologist's Impression: [address] [address] XRay Report Signed Patient: Carlos Randall MR#: [id number] : 1955 Acct:[id number] Age/Sex: 65 / M Date of Service: 08/16/21 Loc: ED Accession Number: [id number] ?? Procedure: XR hip w pel if done RT 2V Ordering Provider: Giselle Briggs D.O. PROCEDURE:? XR HIP W PEL IF DONE RT 2V ? INDICATIONS:? right hip pain, fall, splints with r leg forward. ? TECHNIQUE:? AP pelvis with lateral view(s) of the right hip(s).? ? COMPARISON:? [facility], CR, XR HIP W PEL IF DONE RT 2V, 08/30/2018, 20:27. ? FINDINGS:? ? Bones:? No fractures or dislocations.? Pelvic ring appears intact.? No suspicious bony lesions.? ? Soft tissues:? The visualized bowel gas pattern is normal.? No suspicious soft tissue calcifications.? ? ? IMPRESSION:? No fracture. No osseous lesion. If symptoms and/or clinical suspicion for pathology persists, further assessment with repeat radiographs (7-10 days) or advanced imaging (e.g. CT, MRI or bone scan) should be considered. ? ? ? Dictated by: Cesia Cooper MD, PhD on 08/16/2021 at 23:43 ? ? Approved by: Cesia Cooper MD, PhD on 08/16/2021 at 23:43?? Discharge Plan Departure Patient Disposition: Home Clinical Impression: Fall from ground level, Acute pain of right hip Instructions: DI for Hip Pain Activity Restrictions/Additional Instructions: Your imaging today does not show any signs of fractures or dislocations. I suspect you have injured the muscles and possibly the connecting tissue in your hip. You may take pain medication as prescribed. This medication can make you sleepy do not drive, perform hazardous activities or make any major decisions while taking it. This medication will make you constipated please take a stool softener once to twice daily until stools are soft and regular. A muscle relaxer may also be helpful and you may take this in addition to her pain medication. Use a walker to assist you while moving about. You may use and/or heat as needed to the affected area. Prescription sent to [facility]. Please return for new weakness, numbness, rapidly worsening pain, loss of sensation in her lower extremity or color changes or other new or concerning changes. Prescriptions: New oxycodone 5 mg tablet 5 mg PO Q6H PRN (Reason: pain) Qty: 10 RF: 0 lorazepam [Ativan] 1 mg tablet 1 mg PO TID PRN (Reason: spasms) Qty: 10 RF: 0 No Action meclizine 25 mg tablet 25 mg PO TID PRN (Reason: dizziness) Qty: 10 RF: 0 (DME) Test strips 100 strip Qty: 1 RF: 10 beclomethasone dipropionate 40 mcg/actuation HFA aerosol breath activated 1 inhalation Inhalation BID Qty: 10.6 RF: 5 (DME) blood-glucose meter Kit See Rx Instructions .ROUTE .MEDSUPPLY Qty: 1 RF: 0 (DME) Disabled Parking Permit See Rx Instructions .ROUTE .MEDSUPPLY Qty: 1 RF: 0 (DME) Blood Glucose Test Strip See Rx Instructions .ROUTE .MEDSUPPLY Qty: 100 RF: 6 (DME) lancets [BD Ultra Fine Lancets] 33 gauge misc See Rx Instructions .ROUTE .MEDSUPPLY Qty: 100 RF: 6 isosorbide mononitrate 60 mg tablet extended release 24 hr 60 mg PO QAM Qty: 90 RF: 2 gabapentin 300 mg capsule 900 mg PO BID Qty: 540 RF: 3 albuterol sulfate [Proventil HFA] 90 mcg/actuation HFA aerosol inhaler 2 puff INHALATION QID PRN (Reason: shortness of breath) Qty: 18 RF: 5 levothyroxine 125 mcg tablet 125 mcg PO DAILY Qty: 90 RF: 3 (DME) pen needle, diabetic [Comfort EZ Pen [place]] 31 gauge x 5/16 needle See Dose Instructions .ROUTE .MEDSUPPLY Qty: 100 RF: 5 lisinopril 2.5 mg tablet 2.5 mg PO QAM Qty: 90 RF: 3 clopidogrel 75 mg tablet 75 mg PO DAILY Qty: 90 RF: 3 bupropion HCl [Wellbutrin SR] 150 mg tablet sustained-release 12 hr 150 mg PO DAILY Qty: 90 RF: 1 oxycodone 5 mg tablet 5 mg PO Q4-6H PRN (Reason: pain) Qty: 60 RF: 0 insulin glargine U-300 conc 300 unit/mL (3 mL) insulin pen 80 unit SUBCUT BID Qty: 15 RF: 11 citalopram [Celexa] 40 mg tablet 40 mg PO DAILY Qty: 90 RF: 1 nitroglycerin 0.4 mg tablet, sublingual 0.4 mg sublingual PRN PRN (Reason: Chest Pain) Qty: 20 RF: 1 mupirocin 2 % ointment 1 applic TOP BID Qty: 30 RF: 1 omeprazole 20 mg tablet,delayed release (DR/EC) 20 mg PO DAILY Qty: 90 RF: 1 lorazepam 1 mg tablet 1 mg PO BID PRN (Reason: sedation) Qty: 30 RF: 1 tamsulosin [Flomax] 0.4 mg capsule 0.4 mg PO DAILY Qty: 90 RF: 1 tizanidine 4 mg tablet 4 mg PO TID PRN (Reason: muscle spasticity) Qty: 90 RF: 1 atorvastatin 80 mg tablet 80 mg PO DAILY Qty: 90 RF: 3 metoprolol tartrate 50 mg tablet 50 mg PO BID Qty: 180 RF: 3 furosemide 20 mg tablet 20 mg PO DAILY Qty: 90 RF: 1 triamcinolone acetonide 0.1 % cream 1 applic TOP DAILY Qty: 30 RF: 5 Novolog Flexpen U-100 Insulin 100 unit/mL (3 mL) insulin pen See Rx Instructions SUBCUT .COMPLEX Qty: 15 RF: 11 cephalexin 500 mg capsule 500 mg PO Q6H 14 Days Qty: 56 RF: 0 sulfamethoxazole-trimethoprim [Bactrim DS] 800-160 mg tablet 1 tab PO BID 14 Days Qty: 28 RF: 0 ipratropium-albuterol 0.5 mg-3 mg(2.5 mg base)/3 mL Solution For Nebulization 3 ml INH QID Qty: 360 RF: 0 Referrals: Gasper Rutherford DO [Primary Care Provider] -
--- NOTE | 2021-08-17 00:29 | DI.CT.S_ITS ---
PROCEDURE: CT PEL WO CON INDICATIONS: right hip pain, fall, cannot weight bear. no fx xray TECHNIQUE: Noncontrast 3 mm axial sections acquired through the bony pelvis, with coronal and sagittal reformatting. COMPARISON: [facility], CR, XR HIP W PEL IF DONE RT 2V, 08/16/2021, 23:26. FINDINGS: Image quality: Excellent. Bones: No hip dislocation or displaced fracture. Mild to moderate bilateral hip osteoarthritis. Degenerative disc changes and facet arthropathy noted visualized lower lumbar spine. Soft tissues: Numerous diverticuli noted in the sigmoid colon without evidence of diverticulitis. The appendix is normal. Large and small bowel loops have normal caliber. No lymphadenopathy based on size criteria. Scattered atherosclerotic calcifications noted in the pelvic vasculature. Small fat containing bilateral inguinal hernias. IMPRESSION: No displaced right hip fracture. No acute osseous lesion. If symptoms and/or clinical suspicion for pathology persists, evaluation with MRI should be considered for further assessment. Dictated by: Cesia Cooper MD, PhD on 08/17/2021 at 1:16 Approved by: Cesia Cooper MD, PhD on 08/17/2021 at 1:20
[2021-08-17 00:30] VITALS: BP 163/73
[2021-08-17] MEDS: KETOROLAC 30 MG/ML VIAL IV (00:39)
[2021-08-17 00:42] VITALS: BP 168/79
[2021-08-17 00:43] VITALS: BP 157/70
[2021-08-17 00:53] LABS: Add Manual Diff / Slide Review NO; Basophils Absolute Auto 0 /uL (0-100); Basophils Percent Auto 0.3 % (0-2); Eosinophils Absolute Auto 300 /uL (0-450); Eosinophils Percent Auto 2.7 % (2-4); Hematocrit 41.1 % (41-53); Hemoglobin 13.7 g/dL (13.5-17.5); Lymphocytes Absolute Auto 1800 /uL (1100-4500); Lymphocytes Percent Auto 17.4 % (25-40); Mean Corpuscular HGB Conc 33.3 % (30-36); Mean Corpuscular Hemoglobin 30.8 PG (26-34); Mean Corpuscular Volume 92.4 fL (80-100); Monocytes Absolute Auto 800 /uL (0-900); Monocytes Percent Auto 7.7 % (3-14); Neutrophils Absolute Auto 7300 /uL (1500-7000); Neutrophils Percent Auto 71.9 % (50-75); Platelet Count 225 X10^3/uL (150-400); Red Blood Cell Count 4.44 X10^6/uL (4.5-5.9); Red Cell Distribution Width 15.1 % (11.6-14.8); White Blood Cell Count 10.1 X10^3/uL (4.5-11.0)
[2021-08-17 01:01] LABS: Blood Urea Nitrogen 22 mg/dL (9-20); Calcium 9.4 mg/dL (8.4-10.2); Carbon Dioxide 28 mmol/L (22-32); Chloride 104 mmol/L (98-107); Estimated Glomerular Filt Rate 59.2 mL/min (>60); Glucose 80 mg/dL (80-110); HEMOLYSIS < 15 (0-50); Potassium 4.7 mmol/L (3.4-5.1); Sodium 138 mmol/L (137-145)
[2021-08-17] MEDS: LORazepam 0.5 MG TABLET 1 MG PO (01:46)
[2021-08-17] MEDS: HYDROMORPHONE 0.5 MG INJ IV (01:47)
[2021-08-17] MEDS: ONDANSETRON 4 MG/2 ML INJ IV (03:05)
[2021-08-17] MEDS: OXYCODONE/ACETAMINOPHEN 5/325 TABLET 2 TAB PO (04:36)
[2021-08-17 06:11] VITALS: BP 132/60; PULSE 73; O2SAT 92
== END 2021-08-17 06:26 | disposition home or self-care (01) ==
PROVIDERS: Emergency Provider Emergency Medicine; PCP Family Medicine
DX: M25.551 Pain in right hip (principal); W19.XXXA Unspecified fall, initial encounter
CPT/HCPCS: 72192; 73502; 80048; 85025; 96374; 96375; 96376; 99284; J1170; J1885; J2405

== ENCOUNTER 2021-09-13 20:44 | Emergency (ER) | payer OTHER, SELFPAY ==
[2021-08-19 11:45] VITALS: BMI 32.3
[2021-09-13] VITALS (11 sets, daily range): BP systolic 96–104; BP diastolic 57–63; PULSE 81–87; RESP 20; TEMP 36.7; O2SAT 94–95; BMI 34.7
[2021-09-14] VITALS (17 sets, daily range): BP systolic 118–121; BP diastolic 62–64; PULSE 83–92; TEMP 37.1; O2SAT 93–97
--- NOTE | 2021-09-14 00:40 | ED_ITS ---
HPI - Back Pain/Injury General Chief Complaint: Back Pain/Injury Stated Complaint: GLF Time Seen by Provider: 09/13/21 23:41 Source: patient History of Present Illness HPI Narrative: 66-year-old gentleman with coronary artery disease stents in place and stopping Plavix as of September 14, diabetes, hypertension, hyperlipidemia who was walking on grass outside slipped fell landing directly on his buttocks and then laid in the grass until his granddaughter was help was able to help him get up. He was able to walk. He took 2 Percocet at home but found that the pain continued to increase over the next few hours and presents to the emergency room for further evaluation. He does not describe abdominal pain, he has not noticed hematuria, no chest pain palpitations dyspnea and no radicular complaints down either leg. Related Data Previous Rx's Medication Instructions Recorded ipratropium 0.5 mg-albuterol 3 mg 3 ml INH QID #360 ml 03/12/19 (2.5 mg base)/3 mL nebulization soln meclizine 25 mg tablet 25 mg PO TID PRN #10 tab 10/12/19 Test strips #1 each 03/22/20 insulin aspart U-100 100 unit/mL See Rx Instructions SUBCUT 05/01/20 (3 mL) subcutaneous pen (Novolog .COMPLEX #15 ml Flexpen U-100 Insulin aspart) beclomethasone dipropionate 40 1 inhalation INHALATION BID #10.6 05/29/20 mcg/actuation HFA breath activated gram aerosol atorvastatin 80 mg tablet 80 mg PO DAILY #90 tab 08/22/20 metoprolol tartrate 50 mg tablet 50 mg PO BID #180 tab 08/22/20 blood-glucose meter #1 ea 01/11/21 Disabled Parking Permit #1 ea 02/15/21 blood sugar diagnostic (Blood #100 ea 03/01/21 Glucose Test) lancets 33 gauge (BD Ultra Fine #100 ea 03/01/21 Lancets) isosorbide mononitrate 60 mg 60 mg PO QAM #90 tab 03/15/21 tablet,extended release 24 hr gabapentin 300 mg capsule 900 mg PO BID #540 cap 04/12/21 albuterol sulfate 90 mcg/actuation 2 puff INHALATION QID PRN #18 gram 04/22/21 aerosol inhaler (Proventil HFA) levothyroxine 125 mcg tablet 125 mcg PO DAILY #90 tab 06/03/21 furosemide 20 mg tablet 20 mg PO DAILY #90 tab 06/11/21 pen needle, diabetic 31 gauge x #100 each 06/18/2103/17 (Comfort EZ Pen [place]) clopidogrel 75 mg tablet 75 mg PO DAILY #90 tab 07/15/21 lisinopril 2.5 mg tablet 2.5 mg PO QAM #90 tab 07/15/21 triamcinolone acetonide 0.1 % 1 applic TOP DAILY #30 gram 07/15/21 topical cream insulin glargine U-300 conc 300 80 unit SUBCUT BID #15 ml 07/25/21 unit/mL (3 mL) subcutaneous pen citalopram 40 mg tablet (Celexa) 40 mg PO DAILY #90 tab 08/08/21 lorazepam 1 mg tablet 1 mg PO BID PRN #30 tab 08/13/21 mupirocin 2 % topical ointment 1 applic TOP BID #30 gram 08/13/21 nitroglycerin 0.4 mg sublingual 0.4 mg SUBLINGUAL PRN PRN #20 tab 08/13/21 tablet omeprazole 20 mg tablet,delayed 20 mg PO DAILY #90 tab 08/13/21 release tamsulosin 0.4 mg capsule (Flomax) 0.4 mg PO DAILY #90 cap 08/13/21 lorazepam 1 mg tablet (Ativan) 1 mg PO TID PRN #10 tab 08/17/21 methocarbamol 500 mg tablet 500 mg PO TID PRN #90 tab 08/19/21 oxycodone 5 mg tablet 5 mg PO Q4-6H PRN #60 tab 08/19/21 bupropion HCl 300 mg 24 hr tablet, 300 mg PO QAM #90 tab 08/26/21 extended release cyclobenzaprine 10 mg tablet 10 mg PO TID PRN #10 tab 09/14/21 oxycodone-acetaminophen 5 mg-325 2 - 3 tab PO Q6H PRN #16 tab 09/14/21 mg tablet Allergies Allergy/AdvReac Type Severity Reaction Status Date / Time adhesive Allergy Mild REDNESS/ITC Verified 09/13/21 20:50 HINESS morphine Allergy Verified 09/13/21 20:50 Review of Systems Review of Systems Narrative: Remainder of complete review of systems is otherwise unremarkable except for that included in the HPI. Patient History Medical History Bilateral otitis externa Cellulitis Chicken pox (1956) Chickenpox (1956) Chronic cough COPD (chronic obstructive pulmonary disease) Coronary artery disease (2006) Depression (2008) Diabetes (1994) Eczema Foot pain GERD (gastroesophageal reflux disease) (2012) Gout Hearing reduced Hip pain History of recurrent TIAs Hyperlipidemia Hypertension Hypothyroidism Kidney disease (2009) Measles (1955) Measles (1955) Mental health assessment declined Mumps (1958) Mumps (1958) Neuropathy Obstructive sleep apnea Otitis externa Screening for malignant neoplasm of colon Shoulder pain Sleep apnea Status post myocardial infarction Steatosis Strain of muscle of right groin region (03/30/18) Type 2 diabetes mellitus Well adult exam Surgical History Anesthesia History of heart artery stent (2006) History of heart artery stent (2010) Hx of shoulder surgery (2005) Family History Brother Age: 67 Diabetes mellitus Hyperlipidemia Mother Heart disease Hypertension Hyperlipidemia Diabetes mellitus Grandmother Diabetes mellitus Brother No problems noted. Sister Breast cancer Social History household members: family, children and other Smoking Status: Current every day smoker Tobacco: How many years used: 45 alcohol intake: current Smoking Status: Current every day smoker alcohol intake frequency: other Substance Use Type: marijuana Exam Narrative Exam Narrative: General: Disheveled and in moderate distress secondary to back pain but Able to give a complete and coherent history. Well-nourished well-developed HEENT: Moist mucous membranes, normal sclera with reactive pupils, Neck: No JVD, supple Respiratory: Lungs are clear to auscultation, no wheezing no rales no rhonchi. Full and symmetrical air movement Cardiac: Regular rate and rhythm no murmurs no bruits Abdomen: Obese, Soft, skin changes consistent with insulin injections, nontender, good bowel tones, no flank pain Spine: No obvious contusions or abrasions. He is tender midline from approximately T8-L2 Skin: Warm and dry, chronic venous stasis changes bilateral lower extremities Neurologic: Grossly neurologically intact with no obvious asymmetries or abnormalities Extremities: No trauma, well perfused Psych: Cooperative, appropriate insight and affect Initial Vital Signs Initial Vital Signs: Vital Signs Temperature 98.1 F 09/13/21 20:45 Pulse Rate 85 09/13/21 20:45 Respiratory Rate 20 09/13/21 20:45 Blood Pressure 99/57 L 09/13/21 20:45 Pulse Oximetry 95 09/13/21 20:45 Course Orders Ordered: ED Orders 09/14/21 00:46 XR lumbar spine 2-3V Stat XR thoracic spine 3V Stat Discontinued Medications Cyclobenzaprine HCl (Cyclobenzaprine 10 Mg Tablet) 10 mg PO NOW ONE Stop: 09/14/21 02:58 Last Admin: 09/14/21 03:11 Dose: 10 mg Documented by: IDRIS Hydromorphone HCl (Hydromorphone 1 Mg Inj) 2 mg IM NOW ONE Stop: 09/14/21 02:58 Last Admin: 09/14/21 03:12 Dose: 2 mg Documented by: IDRIS Oxycodone/Acetaminophen (Oxycodone/Acetaminophen 5/325 Tablet) 3 tab PO NOW ONE Stop: 09/14/21 00:47 Last Admin: 09/14/21 00:58 Dose: 3 tab Documented by: HAO Vital Signs Vital signs: Vital Signs - 8 hr 09/13/21 22:30 09/13/21 23:00 09/13/21 23:30 Pulse Rate 83 82 82 Blood Pressure Pulse Oximetry 95 94 95 09/13/21 23:48 09/14/21 00:00 09/14/21 00:30 Pulse Rate 81 85 83 Blood Pressure 104/63 Pulse Oximetry 94 94 93 09/14/21 00:56 09/14/21 01:18 09/14/21 01:30 Pulse Rate 83 92 H 89 Blood Pressure 118/64 Pulse Oximetry 96 96 95 09/14/21 02:00 09/14/21 02:30 09/14/21 03:00 Pulse Rate 88 87 86 Blood Pressure Pulse Oximetry 95 93 95 09/14/21 03:30 09/14/21 04:00 09/14/21 04:03 Pulse Rate 86 85 Blood Pressure Pulse Oximetry 93 96 95 09/14/21 04:30 09/14/21 05:00 09/14/21 05:30 Pulse Rate 86 86 88 Blood Pressure Pulse Oximetry 97 97 95 09/14/21 06:00 09/14/21 06:12 Pulse Rate 85 Blood Pressure 121/62 Pulse Oximetry 95 [facility] - Back Pain/Injury Imaging Data XR Thorasic and lumbar spine: Radiologist's Impression: FINDINGS:? ? Bones:? 5 [id number] vertebrae are present.? Prominent anterior vertebral body osteophytes.? There is normal bony alignment.? No vertebral body compression fractures.? No suspicious bony lesions.? ? Soft tissues:? Overlying bowel gas pattern is normal.? No suspicious soft tissue calcifications.? ? ? IMPRESSION:? No acute osseous abnormality.? No compression fracture. ? ? Dictated by: Ed Hall M.D. on 09/14/2021 at 1:26 ? FINDINGS:? ? Bones:? No fractures or dislocations.? No suspicious bony lesions.? 12 pairs of ribs are noted, and appear intact where visualized.? Bridging anterior osteophytes.? ? Soft tissues:? No paravertebral stripe thickening.? ? ? IMPRESSION:? No acute osseous abnormality. ? ? Dictated by: Ed Hall M.D. on 09/14/2021 at 1:24 ? ? ? [facility] Narrative Medical decision making narrative: 66-year-old gentleman with mechanical fall landing on his buttocks complaining of low thoracic upper lumbar pain. X-rays do not suggest any acute compression fractures. There is no evidence of retroperitoneal bleeding or significant hematoma. The 3 Percocet 1 time was more effective than 2 in dealing with his pain. Findings reviewed with him. He still having a moderate amount of pain. He has had some success with muscle relaxers in the past. He does not have a ride for at least 4 hours. Will give him a dose of IM Dilaudid and oral cyclobenzaprine and see if he is able to get a few hours of sleep. He was able to sleep, is still a bit achy this morning but remains clinically stable. Will give him 16 extra Percocet to go with his usually prescribed medications. A considered lidocaine patches however he has an allergy to tape adhesives that may make his issues worse. He is also given a small course of cyclobenzaprine as this did seem to help him with sleeping this evening. He is safe for home discharge Discharge Plan Departure Patient Disposition: Home Clinical Impression: Acute back pain Qualifiers: Back pain location: low back pain Back pain laterality: midline Sciatica presence: without sciatica Qualified Code(s): M54.50 - Low back pain, unspecified Instructions: DI for Muscle Strain Activity Restrictions/Additional Instructions: Thank you for coming in today I am sorry that you fell and are having so much pain in your middle back. Fortunately the x-rays do not suggest that you have compression fractures in either your thoracic or lumbar spine. I am not seeing any evidence of internal bleeding or other complications that might explain your back pain. I would recommend both ice and heat to the back to see which feels better. You can use between 2 and 3 Percocet every 6 hours for severe pain. I will get also give you a brief course of muscle relaxers, cyclobenzaprine. I would expect that you are going to have pain today and it will likely began fe eling somewhat better tomorrow and should continue to improve by then. It may be a slow process. With the narcotics, please make sure that you are using a stool softener so that your back pain is not complicate by constipation Prescriptions were electronically transmitted to [facility] in [place] I hope you feel better Prescriptions: New oxycodone-acetaminophen 5-325 mg tablet 2 - 3 tab PO Q6H PRN (Reason: pain) Qty: 16 RF: 0 cyclobenzaprine 10 mg tablet 10 mg PO TID PRN (Reason: muscle spasm) Qty: 10 RF: 0 No Action meclizine 25 mg tablet 25 mg PO TID PRN (Reason: dizziness) Qty: 10 RF: 0 (DME) Test strips 100 strip Qty: 1 RF: 10 beclomethasone dipropionate 40 mcg/actuation HFA aerosol breath activated 1 inhalation Inhalation BID Qty: 10.6 RF: 5 (DME) blood-glucose meter Kit See Rx Instructions .ROUTE .MEDSUPPLY Qty: 1 RF: 0 (DME) Disabled Parking Permit See Rx Instructions .ROUTE .MEDSUPPLY Qty: 1 RF: 0 (DME) Blood Glucose Test Strip See Rx Instructions .ROUTE .MEDSUPPLY Qty: 100 RF: 6 (DME) lancets [BD Ultra Fine Lancets] 33 gauge misc See Rx Instructions .ROUTE .MEDSUPPLY Qty: 100 RF: 6 isosorbide mononitrate 60 mg tablet extended release 24 hr 60 mg PO QAM Qty: 90 RF: 2 gabapentin 300 mg capsule 900 mg PO BID Qty: 540 RF: 3 albuterol sulfate [Proventil HFA] 90 mcg/actuation HFA aerosol inhaler 2 puff INHALATION QID PRN (Reason: shortness of breath) Qty: 18 RF: 5 levothyroxine 125 mcg tablet 125 mcg PO DAILY Qty: 90 RF: 3 (DME) pen needle, diabetic [Comfort EZ Pen [place]] 31 gauge x 5/16 needle See Dose Instructions .ROUTE .MEDSUPPLY Qty: 100 RF: 5 lisinopril 2.5 mg tablet 2.5 mg PO QAM Qty: 90 RF: 3 clopidogrel 75 mg tablet 75 mg PO DAILY Qty: 90 RF: 3 insulin glargine U-300 conc 300 unit/mL (3 mL) insulin pen 80 unit SUBCUT BID Qty: 15 RF: 11 citalopram [Celexa] 40 mg tablet 40 mg PO DAILY Qty: 90 RF: 1 nitroglycerin 0.4 mg tablet, sublingual 0.4 mg sublingual PRN PRN (Reason: Chest Pain) Qty: 20 RF: 1 mupirocin 2 % ointment 1 applic TOP BID Qty: 30 RF: 1 omeprazole 20 mg tablet,delayed release (DR/EC) 20 mg PO DAILY Qty: 90 RF: 1 lorazepam 1 mg tablet 1 mg PO BID PRN (Reason: sedation) Qty: 30 RF: 1 tamsulosin [Flomax] 0.4 mg capsule 0.4 mg PO DAILY Qty: 90 RF: 1 methocarbamol 500 mg tablet 500 mg PO TID PRN (Reason: mm tightness) Qty: 90 RF: 1 oxycodone 5 mg tablet 5 mg PO Q4-6H PRN (Reason: pain) Qty: 60 RF: 0 atorvastatin 80 mg tablet 80 mg PO DAILY Qty: 90 RF: 3 metoprolol tartrate 50 mg tablet 50 mg PO BID Qty: 180 RF: 3 furosemide 20 mg tablet 20 mg PO DAILY Qty: 90 RF: 1 triamcinolone acetonide 0.1 % cream 1 applic TOP DAILY Qty: 30 RF: 5 bupropion HCl 300 mg tablet extended release 24 hr 300 mg PO QAM Qty: 90 RF: 1 Novolog Flexpen U-100 Insulin 100 unit/mL (3 mL) insulin pen See Rx Instructions SUBCUT .COMPLEX Qty: 15 RF: 11 lorazepam [Ativan] 1 mg tablet 1 mg PO TID PRN (Reason: spasms) Qty: 10 RF: 0 ipratropium-albuterol 0.5 mg-3 mg(2.5 mg base)/3 mL Solution For Nebulization 3 ml INH QID Qty: 360 RF: 0 Referrals: Gasper Rutherford, [Primary Care Provider] -
--- NOTE | 2021-09-14 00:46 | DI.RAD.S_ITS ---
PROCEDURE: XR THORACIC SPINE 3V INDICATIONS: fall, tender T8-L2 TECHNIQUE: 3 views of the thoracic spine were acquired. COMPARISON: [facility], CR, XR LUMBAR SPINE 2-3V, 09/14/2021, 0:46. FINDINGS: Bones: No fractures or dislocations. No suspicious bony lesions. 12 pairs of ribs are noted, and appear intact where visualized. Bridging anterior osteophytes. Soft tissues: No paravertebral stripe thickening. IMPRESSION: No acute osseous abnormality. Dictated by: Ed Hall M.D. on 09/14/2021 at 1:24 Approved by: Ed Hall M.D. on 09/14/2021 at 1:25
--- NOTE | 2021-09-14 00:46 | DI.RAD.S_ITS ---
PROCEDURE: XR LUMBAR SPINE 2-3V INDICATIONS: fall, tender T8-L2, ? compression fracture TECHNIQUE: 2 views of the lumbar spine were acquired. COMPARISON: [facility], CT, CT CHEST ABD PEL W CON, 03/22/2021, 23:35. [facility], CT, CT PEL WO CON, 08/17/2021, 0:56. [facility], CR, XR LUMBAR SPINE MIN 4V, 07/25/2020, 9:56. FINDINGS: Bones: 5 [id number] vertebrae are present. Prominent anterior vertebral body osteophytes. There is normal bony alignment. No vertebral body compression fractures. No suspicious bony lesions. Soft tissues: Overlying bowel gas pattern is normal. No suspicious soft tissue calcifications. IMPRESSION: No acute osseous abnormality. No compression fracture. Dictated by: Ed Hall M.D. on 09/14/2021 at 1:26 Approved by: Ed Hall M.D. on 09/14/2021 at 1:27
[2021-09-14] MEDS: OXYCODONE/ACETAMINOPHEN 5/325 TABLET 3 TAB PO (00:58)
[2021-09-14] MEDS: CYCLOBENZAPRINE 10 MG TABLET PO (03:11)
[2021-09-14] MEDS: HYDROMORPHONE 1 MG INJ 2 MG IM (03:12)
== END 2021-09-14 06:47 | disposition home or self-care (01) ==
PROVIDERS: Emergency Provider Emergency Medicine; PCP Family Medicine
DX: M54.50 Low back pain, unspecified (principal); M54.6 Pain in thoracic spine; W18.30XA Fall on same level, unspecified, initial encounter
CPT/HCPCS: 72072; 72100; 96372; 99283; 99284; J1170

== ENCOUNTER 2021-09-25 16:07 | Inpatient (IN) | payer OTHER, SELFPAY ==
[2021-08-19 11:45] VITALS: BMI 32.3
[2021-09-25] VITALS (11 sets, daily range): BP systolic 171–208; BP diastolic 81–90; PULSE 81–87; RESP 14–24; TEMP 36.6–36.8; O2SAT 95–98; BMI 34.8; BMI 33.3
--- NOTE | 2021-09-25 09:43 | DI.MRI.S_ITS ---
PROCEDURE: MR HEAD/BRAIN WO/W CON INDICATIONS: encephalopathy, hallucinations TECHNIQUE: Noncontrast axial T1 spin echo, axial T2 fast spin echo, sagittal and axial FLAIR, coronal T2 fast spin echo, axial gradient echo, axial diffusion and ADC through the brain. After the administration of contrast, axial and coronal T1 spin echo with fat saturation through the brain. COMPARISON: [facility], CT, HEAD WITHOUT CONTRAST, 10/02/2015, 5:00. [facility], CT, CT HEAD/BRAIN WO CON, 09/25/2021, 16:47. FINDINGS: Image quality: This examination is limited by involuntary motion artifact. This evaluation is limited, secondary to the patient's inability to fully cooperate with the examination. CSF spaces: Basal cisterns are patent. No extra-axial fluid collections. Ventricles are normal in size and shape. Brain: No midline shift. No intracranial bleeds or masses. No abnormal intracranial enhancement. There is cerebral volume loss for age. There is periventricular white matter chronic small vessel ischemic change. The brainstem appears normal. Diffusion-weighted images demonstrate no acute ischemic insults. Several focal lacunar infarcts are seen. Normal intravascular flow voids are present. Skull and face: Calvarial marrow is normal in signal. Orbits appear normal. Note is made of bilateral lens replacements. Sinuses: There is at least moderate left-sided and [id number] right-sided mastoid air cell fluid. Mild mucosal thickening is seen within the ethmoid air cells. The visualized paranasal sinuses are otherwise unremarkable. IMPRESSION: No findings of acute or subacute infarction can be seen. No masses or abnormal enhancement can be seen. Note is made of age-appropriate brain parenchymal volume loss and chronic small vessel ischemic changes. Several remote lacunar infarcts are also seen. Dictated by: Nathan Doyle M.D. on 09/26/2021 at 9:23 Approved by: Nathan Doyle M.D. on 09/26/2021 at 9:26
--- NOTE | 2021-09-25 16:27 | DI.RAD.S_ITS ---
PROCEDURE: XR CHEST 1V INDICATIONS: chest pain TECHNIQUE: One view of the chest was acquired. COMPARISON: [facility], CR, XR CHEST 1V, 08/12/2021, 17:17. FINDINGS: Surgical changes and devices: None. Lungs and pleura: Diffuse chronic interstitial changes remain stable from the prior exam. Mediastinum: Mediastinal contours appear normal. Heart size is normal. Bones and chest wall: No suspicious bony lesions. Overlying soft tissues appear unremarkable. Old healed right-sided rib fracture noted. IMPRESSION: Diffuse chronic interstitial changes without focal infiltrate, pneumothorax or pleural effusion. Approved by: Terrence Harrell M.D. on 09/25/2021 at 15:48
[2021-09-25 16:35] LABS: Add Manual Diff / Slide Review NO; Basophils Absolute Auto 0 /uL (0-100); Basophils Percent Auto 0.3 % (0-2); Eosinophils Absolute Auto 200 /uL (0-450); Hematocrit 37.9 % (41-53); Hemoglobin 12.8 g/dL (13.5-17.5); Lymphocytes Absolute Auto 1200 /uL (1100-4500); Lymphocytes Percent Auto 11.8 % (25-40); Mean Corpuscular HGB Conc 33.9 % (30-36); Mean Corpuscular Hemoglobin 31.5 PG (26-34); Mean Corpuscular Volume 92.7 fL (80-100); Monocytes Absolute Auto 800 /uL (0-900); Monocytes Percent Auto 7.8 % (3-14); Neutrophils Absolute Auto 7600 /uL (1500-7000); Neutrophils Percent Auto 78.1 % (50-75); Platelet Count 210 X10^3/uL (150-400); Red Blood Cell Count 4.08 X10^6/uL (4.5-5.9); Red Cell Distribution Width 14.8 % (11.6-14.8); White Blood Cell Count 9.8 X10^3/uL (4.5-11.0)
[2021-09-25 16:37] LABS: INR 1.2 (0.9-1.3); Prothrombin Time 13.3 SECONDS (10.1-12.7)
[2021-09-25 16:39] LABS: PTT Partial Thromboplastin Tim 33 SECONDS (26.4-36.2)
--- NOTE | 2021-09-25 16:39 | ED_ITS ---
HPI - Chest Pain General Chief Complaint: Chest Pain Stated Complaint: Fall yesterday, chest pain Time Seen by Provider: 09/25/21 16:27 Source: patient and EMS Mode of arrival: EMS Limitations: no limitations History of Present Illness HPI narrative: Patient is a 66-year-old male arrived by EMS for evaluation of multiple falls and lower extremity weakness. It appears that for the past couple months he has episodes where he becomes very weak in his legs. He has fallen multiple times for this. He fell yesterday. He did hit his head. He reports no injuries from the events. Sometimes he is able to get himself up and sometimes he isn't in asked to get someone else to help him up. He did fall multiple times today. Was his son who contacted EMS to come and pick him up. Patient has multiple medical problems. In route here to the emergency department he did have chest discomfort. Was given 1 nitro and this resolved his symptoms. He complains of no chest pain currently. Related Data Previous Rx's Medication Instructions Recorded ipratropium 0.5 mg-albuterol 3 mg 3 ml INH QID #360 ml 03/12/19 (2.5 mg base)/3 mL nebulization soln meclizine 25 mg tablet 25 mg PO TID PRN #10 tab 10/12/19 Test strips #1 each 03/22/20 insulin aspart U-100 100 unit/mL See Rx Instructions SUBCUT 05/01/20 (3 mL) subcutaneous pen (Novolog .COMPLEX #15 ml Flexpen U-100 Insulin aspart) beclomethasone dipropionate 40 1 inhalation INHALATION BID #10.6 05/29/20 mcg/actuation HFA breath activated gram aerosol atorvastatin 80 mg tablet 80 mg PO DAILY #90 tab 08/22/20 metoprolol tartrate 50 mg tablet 50 mg PO BID #180 tab 08/22/20 blood-glucose meter #1 ea 01/11/21 Disabled Parking Permit #1 ea 02/15/21 blood sugar diagnostic (Blood #100 ea 03/01/21 Glucose Test) lancets 33 gauge (BD Ultra Fine #100 ea 03/01/21 Lancets) isosorbide mononitrate 60 mg 60 mg PO QAM #90 tab 03/15/21 tablet,extended release 24 hr gabapentin 300 mg capsule 900 mg PO BID #540 cap 04/12/21 albuterol sulfate 90 mcg/actuation 2 puff INHALATION QID PRN #18 gram 04/22/21 aerosol inhaler (Proventil HFA) levothyroxine 125 mcg tablet 125 mcg PO DAILY #90 tab 06/03/21 furosemide 20 mg tablet 20 mg PO DAILY #90 tab 06/11/21 pen needle, diabetic 31 gauge x #100 each 06/18/2103/17 (Comfort EZ Pen [place]) clopidogrel 75 mg tablet 75 mg PO DAILY #90 tab 07/15/21 lisinopril 2.5 mg tablet 2.5 mg PO QAM #90 tab 07/15/21 triamcinolone acetonide 0.1 % 1 applic TOP DAILY #30 gram 07/15/21 topical cream insulin glargine U-300 conc 300 80 unit (0.2667 mL) SUBCUT BID #15 07/25/21 unit/mL (3 mL) subcutaneous pen ml citalopram 40 mg tablet (Celexa) 40 mg PO DAILY #90 tab 08/08/21 lorazepam 1 mg tablet 1 mg PO BID PRN #30 tab 08/13/21 mupirocin 2 % topical ointment 1 applic TOP BID #30 gram 08/13/21 nitroglycerin 0.4 mg sublingual 0.4 mg SUBLINGUAL PRN PRN #20 tab 08/13/21 tablet omeprazole 20 mg tablet,delayed 20 mg PO DAILY #90 tab 08/13/21 release tamsulosin 0.4 mg capsule (Flomax) 0.4 mg PO DAILY #90 cap 08/13/21 lorazepam 1 mg tablet (Ativan) 1 mg PO TID PRN #10 tab 08/17/21 methocarbamol 500 mg tablet 500 mg PO TID PRN #90 tab 08/19/21 bupropion HCl 300 mg 24 hr tablet, 300 mg PO QAM #90 tab 08/26/21 extended release cyclobenzaprine 10 mg tablet 10 mg PO TID PRN #10 tab 09/14/21 oxycodone-acetaminophen 5 mg-325 2 - 3 tab PO Q6H PRN #16 tab 09/14/21 mg tablet oxycodone 5 mg tablet 5 mg PO Q4-6H PRN #60 tab 09/16/21 Allergies Allergy/AdvReac Type Severity Reaction Status Date / Time adhesive Allergy Mild REDNESS/ITC Verified 09/13/21 20:50 HINESS morphine Allergy Verified 09/13/21 20:50 Review of Systems Constitutional Constitutional: Reports fatigue, Denies fever(s), Reports frequent falls, Reports malaise and Reports weakness Eyes Eyes: Denies change in vision ENT Ears, Nose, Mouth, and Throat: Denies vertigo, Reports dizziness and Reports disequilibrium Cardiovascular Cardiovascular: Reports as per HPI, Reports system reviewed and no additional complaints, except as documented, Reports chest pain and Denies syncope Respiratory Respiratory: Reports as per HPI and Reports system reviewed and no additional complaints, except as documented Gastrointestinal Gastrointestinal: Reports as per HPI and Reports system reviewed and no additional complaints, except as documented Genitourinary Genitourinary: Reports difficulty urinating and Denies dysuria Musculoskeletal Musculoskeletal: Reports system reviewed and no additional complaints, except as documented Neurologic Neurologic: Reports confusion, Denies vertigo, Reports dizziness, Denies syncope, Reports frequent falls, Denies paresthesias, Reports disequilibrium and Reports weakness Psychiatric Psychiatric: Reports confusion Endocrine Endocrine: Reports fatigue Hematologic/Lymphatic On Anticoagulants: No Allergic/Immunologic Allergic/Immunologic: Reports system reviewed and no additional complaints, except as documented Patient History Medical History Bilateral otitis externa Cellulitis Chicken pox (1956) Chickenpox (1956) Chronic cough COPD (chronic obstructive pulmonary disease) Coronary artery disease (2006) Depression (2008) Diabetes (1994) Eczema Foot pain GERD (gastroesophageal reflux disease) (2012) Gout Hearing reduced Hip pain History of recurrent TIAs Hyperlipidemia Hypertension Hypothyroidism Kidney disease (2009) Measles (1955) Measles (1955) Mental health assessment declined Mumps (1958) Mumps (1958) Neuropathy Obstructive sleep apnea Otitis externa Screening for malignant neoplasm of colon Shoulder pain Sleep apnea Status post myocardial infarction Steatosis Strain of muscle of right groin region (03/30/18) Type 2 diabetes mellitus Well adult exam Surgical History Anesthesia History of heart artery stent (2006) History of heart artery stent (2010) Hx of shoulder surgery (2005) Family History Brother Age: 67 Diabetes mellitus Hyperlipidemia Mother Heart disease Hypertension Hyperlipidemia Diabetes mellitus Grandmother Diabetes mellitus Brother No problems noted. Sister Breast cancer Social History household members: family, children and other Smoking Status: Current every day smoker Tobacco: How many years used: 45 alcohol intake: current Smoking Status: Current every day smoker alcohol intake frequency: other Substance Use Type: marijuana Exam Initial Vital Signs Initial Vital Signs: Vital Signs Pulse Rate 85 09/25/21 16:07 Respiratory Rate 16 09/25/21 16:07 Blood Pressure 197/90 H 09/25/21 16:07 Pulse Oximetry 97 09/25/21 16:07 Const General: comfortable, No in distress, disheveled and No ill appearing Other: Confused HENMT Head: normal to inspection and normocephalic Resp Effort & Inspection: normal respiratory effort Auscultation: clear to auscultation bilaterally Cardio Rate: regular rate Rhythm: regular rhythm GI Inspection: normal to inspection and non-distended Palpation: soft, No firm and No tender Back/Spine/Pelvis Cervical Spine: No cervical spinal tenderness Skin Lesions: no lesions Rashes: no rashes Neuro General: patient alert, patient awake and moves all extremities Cranial Nerves: CN's II-XI intact bilaterally Cognition: abnormal cognition Speech: speech normal Motor: other (3-5 strength bilateral lower extremities) Sensory Exam: no sensory deficits noted Extrem General: normal to inspection and capillary refill normal Psych Appearance: grossly normal and well kempt Scores GCS Elia coma scale eye opening: Spontaneous Elia coma scale verbal response: Confused Elia coma scale motor response: Obey commands [place] coma scale total score: 14 Course Orders Ordered: ED Orders 09/25/21 16:16 Acetaminophen Stat Complete Blood Count AUTO DIFF Stat Comprehensive Metabolic Panel Stat Ethanol (ETOH) Stat Lipase Stat Partial Thromboplastin Time Stat Prothrombin Time INR Stat Salicylate Stat Troponin & CK Cardiac Panel Stat 09/25/21 16:27 XR chest 1V Stat EKG-12 Lead Stat 09/25/21 16:40 Consult to EDITOR CONTINUITY AND SCRIPT - Configurator Stat CT head/brain wo con Stat 09/25/21 18:54 Ammonia (NH3) Stat 09/25/21 19:17 Urinalysis and Microscopic Stat Urine Drug Screen, Rapid Stat 09/25/21 19:33 COVID19 - ADMIT (COMMUNITY ENGAGEMENT LEADER swab/PCR) Stat Discontinued Medications Lidocaine HCl (Lidocaine 2% (Glydo) 6 Ml Gel) 6 ml TOP NOW ONE Stop: 09/25/21 19:02 Last Admin: 09/25/21 19:18 Dose: Not Given Documented by: SHANTAL Vital Signs Vital signs: Vital Signs - 8 hr 09/25/21 16:07 09/25/21 16:11 09/25/21 16:12 Temperature Pulse Rate 85 87 85 Respiratory Rate 16 Blood Pressure 197/90 H 197/90 H Pulse Oximetry 97 96 97 09/25/21 16:13 09/25/21 16:30 09/25/21 16:31 Temperature Pulse Rate 85 86 84 Respiratory Rate 14 24 Blood Pressure 177/86 H 208/83 H Pulse Oximetry 97 97 97 09/25/21 17:00 09/25/21 17:01 09/25/21 17:03 Temperature 97.8 F Pulse Rate 86 86 84 Respiratory Rate 16 24 16 Blood Pressure 196/86 H 175/81 H Pulse Oximetry 97 95 96 MDM - Chest Pain Lab Data Attestation: I reviewed the patient's lab results. Result diagrams: 09/25/21 16:16 09/25/21 16:16 Labs: Lab Results 09/25/21 09/25/21 09/25/21 Range/Units 16:16 16:16 16:16 WBC 9.8 (4.5-11.0) X10^3/uL RBC 4.08 L (4.5-5.9) X10^6/uL Hgb 12.8 L (13.5-17.5) g/dL Hct 37.9 L (41-53) % MCV 92.7 (80-100) fL MCH 31.5 (26-34) PG MCHC 33.9 (30-36) % RDW 14.8 (11.6-14.8) % Plt Count 210 (150-400) X10^3/uL Neut % (Auto) 78.1 H (50-75) % Lymph % (Auto) 11.8 L (25-40) % [place] % (Auto) 7.8 (3-14) % Eos % (Auto) 2.0 (2-4) % Baso % (Auto) 0.3 (0-2) % Neut # (Auto) 7600 H (8013-5465) /uL Lymph # (Auto) 1200 (7819-2396) /uL [place] # (Auto) 800 (0-900) /uL Eos # (Auto) 200 (0-450) /uL Baso # (Auto) 0 (0-100) /uL PT 13.3 H (10.1-12.7) SECONDS INR 1.2 (0.9-1.3) APTT 33 (26.4-36.2) SECONDS Sodium 137 (137-145) mmol/L Potassium 4.5 (3.4-5.1) mmol/L Chloride 99 (98-107) mmol/L Carbon Dioxide 27 (22-32) mmol/L BUN 16 (9-20) mg/dL Creatinine 0.91 (0.66-1.25) mg/dL Estimated GFR > 60.0 (>60) mL/min BUN/Creatinine Ratio 17.6 (6-22) Glucose 191 H (80-110) mg/dL Calcium 9.4 (8.4-10.2) mg/dL Total Bilirubin 1.0 (0.2-1.3) mg/dL AST 44 (17-59) IU/L ALT 40 (<50) IU/L Alkaline Phosphatase 83 (38-126) U/L Ammonia (9-30) umol/L Total Creatine Kinase 498 H (55-170) U/L CK-MB (CK-2) 7.46 H (<2.37) ng/mL CK-MB (CK-2) Rel Index 1.5 (1.5-5.0) % Troponin I < 0.012 (0.01-0.034) ng/mL Total Protein 7.9 (6.3-8.2) g/dL Albumin 4.4 (3.5-5.0) g/dL Globulin 3.5 (1.7-4.1) g/dL Albumin/Globulin Ratio 1.3 (1.0-2.8) Lipase 47 (23-300) U/L Urine Color Urine Appearance Urine pH (4.5-8.0) Ur Specific [place] (1.000-1.035) Urine Protein (Negative) Urine Glucose (UA) (Negative) g/dL Urine Ketones (NEGATIVE) Urine Occult Blood (Negative) Urine Nitrate (Negative) Urine Bilirubin (NEGATIVE) Urine Urobilinogen (0.2) E.U./dL Ur Leukocyte Esterase (NEGATIVE) Salicylates (<20) mg/dL Acetaminophen (10-30) ug/mL Ethyl Alcohol ( - 10) mg/dL 09/25/21 09/25/21 09/25/21 Range/Units 16:16 16:16 18:54 WBC (4.5-11.0) X10^3/uL RBC (4.5-5.9) X10^6/uL Hgb (13.5-17.5) g/dL Hct (41-53) % MCV (80-100) fL MCH (26-34) PG MCHC (30-36) % RDW (11.6-14.8) % Plt Count (150-400) X10^3/uL Neut % (Auto) (50-75) % Lymph % (Auto) (25-40) % [place] % (Auto) (3-14) % Eos % (Auto) (2-4) % Baso % (Auto) (0-2) % Neut # (Auto) (3873-5027) /uL Lymph # (Auto) (9282-8958) /uL [place] # (Auto) (0-900) /uL Eos # (Auto) (0-450) /uL Baso # (Auto) (0-100) /uL PT (10.1-12.7) SECONDS INR (0.9-1.3) APTT (26.4-36.2) SECONDS Sodium (137-145) mmol/L Potassium (3.4-5.1) mmol/L Chloride (98-107) mmol/L Carbon Dioxide (22-32) mmol/L BUN (9-20) mg/dL Creatinine (0.66-1.25) mg/dL Estimated GFR (>60) mL/min BUN/Creatinine Ratio (6-22) Glucose (80-110) mg/dL Calcium (8.4-10.2) mg/dL Total Bilirubin (0.2-1.3) mg/dL AST (17-59) IU/L ALT (<50) IU/L Alkaline Phosphatase (38-126) U/L Ammonia < 9 L (9-30) umol/L Total Creatine Kinase (55-170) U/L CK-MB (CK-2) (<2.37) ng/mL CK-MB (CK-2) Rel Index (1.5-5.0) % Troponin I (0.01-0.034) ng/mL Total Protein (6.3-8.2) g/dL Albumin (3.5-5.0) g/dL Globulin (1.7-4.1) g/dL Albumin/Globulin Ratio (1.0-2.8) Lipase (23-300) U/L Urine Color Urine Appearance Urine pH (4.5-8.0) Ur Specific [place] (1.000-1.035) Urine Protein (Negative) Urine Glucose (UA) (Negative) g/dL Urine Ketones (NEGATIVE) Urine Occult Blood (Negative) Urine Nitrate (Negative) Urine Bilirubin (NEGATIVE) Urine Urobilinogen (0.2) E.U./dL Ur Leukocyte Esterase (NEGATIVE) Salicylates < 1.0 (<20) mg/dL Acetaminophen < 10 L (10-30) ug/mL Ethyl Alcohol < 10 ( - 10) mg/dL 09/25/ Range/Units 19:17 WBC (4.5-11.0) X10^3/uL RBC (4.5-5.9) X10^6/uL Hgb (13.5-17.5) g/dL Hct (41-53) % MCV (80-100) fL MCH (26-34) PG MCHC (30-36) % RDW (11.6-14.8) % Plt Count (150-400) X10^3/uL Neut % (Auto) (50-75) % Lymph % (Auto) (25-40) % [place] % (Auto) (3-14) % Eos % (Auto) (2-4) % Baso % (Auto) (0-2) % Neut # (Auto) (2110-9470) /uL Lymph # (Auto) (0057-3443) /uL [place] # (Auto) (0-900) /uL Eos # (Auto) (0-450) /uL Baso # (Auto) (0-100) /uL PT (10.1-12.7) SECONDS INR (0.9-1.3) APTT (26.4-36.2) SECONDS Sodium (137-145) mmol/L Potassium (3.4-5.1) mmol/L Chloride (98-107) mmol/L Carbon Dioxide (22-32) mmol/L BUN (9-20) mg/dL Creatinine (0.66-1.25) mg/dL Estimated GFR (>60) mL/min BUN/Creatinine Ratio (6-22) Glucose (80-110) mg/dL Calcium (8.4-10.2) mg/dL Total Bilirubin (0.2-1.3) mg/dL AST (17-59) IU/L ALT (<50) IU/L Alkaline Phosphatase (38-126) U/L Ammonia (9-30) umol/L Total Creatine Kinase (55-170) U/L CK-MB (CK-2) (<2.37) ng/mL CK-MB (CK-2) Rel Index (1.5-5.0) % Troponin I (0.01-0.034) ng/mL Total Protein (6.3-8.2) g/dL Albumin (3.5-5.0) g/dL Globulin (1.7-4.1) g/dL Albumin/Globulin Ratio (1.0-2.8) Lipase (23-300) U/L Urine Color Yellow Urine Appearance Clear Urine pH 7.5 (4.5-8.0) Ur Specific [place] 1.015 (1.000-1.035) Urine Protein 2+ H (Negative) Urine Glucose (UA) Negative (Negative) g/dL Urine Ketones Negative (NEGATIVE) Urine Occult Blood Trace-lysed (Negative) Urine Nitrate Negative (Negative) Urine Bilirubin Negative (NEGATIVE) Urine Urobilinogen 1.0 (0.2) E.U./dL Ur Leukocyte Esterase Negative (NEGATIVE) Salicylates (<20) mg/dL Acetaminophen (10-30) ug/mL Ethyl Alcohol ( - 10) mg/dL Imaging Data Chest x-ray: Radiologist's Impression: [address] [address] XRay Report Signed Patient: Carlos Randall MR#: [id number] : 1955 Acct:[id number] Age/Sex: 66 / M Date of Service: 09/25/21 Loc: ED Accession Number: [id number] ?? Procedure: XR chest 1V Ordering Provider: Neri Burt D.O. PROCEDURE:? XR CHEST 1V ? INDICATIONS:? chest pain ? TECHNIQUE:? One view of the chest was acquired.? ? COMPARISON:? [facility], CR, XR CHEST 1V, 08/12/2021, 17:17. ? FINDINGS:? ? Surgical changes and devices:? None.? ? Lungs and pleura:? Diffuse chronic interstitial changes remain stable from the prior exam. ? Mediastinum:? Mediastinal contours appear normal.? Heart size is normal.? ? Bones and chest wall:? No suspicious bony lesions.? Overlying soft tissues appear unremarkable.? Old healed right-sided rib fracture noted. ? IMPRESSION:? ? Diffuse chronic interstitial changes without focal infiltrate, pneumothorax or pleural effusion. ? ? ? Approved by: Terrence Harrell M.D. on 09/25/2021 at 15:48? CT scan - head: Radiologist's Impression: [address] [address] [address] Scan Report Signed Patient: Carlos Randall MR#: [id number] : 1955 Acct:[id number] Age/Sex: 66 / M Date of Service: 09/25/21 Loc: ED Accession Number: [id number] ?? Procedure: CT head/brain wo con Ordering Provider: Neri Burt D.O. PROCEDURE:? CT HEAD/BRAIN WO CON ? INDICATIONS:? Weakness with multiple falls ? TECHNIQUE:? Noncontrast 4.5 mm thick angled axial sections acquired from the foramen magnum to the vertex, with coronal and sagittal reformats.? For radiation dose reduction, the following was used:? automated exposure control, adjustment of mA and/or kV according to patient size.? ? COMPARISON:? [facility], CT, CT HEAD/BRAIN WO CON, 12/22/2018, 3:37. ? FINDINGS:? Image quality:? Excellent.? ? CSF spaces:? Basal cisterns are patent.? No extra-axial fluid collections.? The ventricles are symmetric in size and shape.? ? Brain:? No intracranial bleeds or masses.? There is cerebral volume loss for age, with resultant ventricular and sulcal prominence.? There are periventricular and deep white matter chronic small vessel ischemic changes.? There is intracranial internal carotid artery atherosclerosis.? ? Skull and face:? Calvarium and visualized facial bones appear intact, without suspicious lesions.? ? Sinuses:? Visualized sinuses and mastoids are clear.? ? IMPRESSION:? No acute intracranial abnormality. ? ? Dictated by: Perri Castillo M.D. on 09/25/2021 at 17:00 ? ? Approved by: Perri Castillo M.D. on 09/25/2021 at 17:01? ECG Data Attestation: I personally reviewed and interpreted this ECG as follows: Interpretation: Sinus rhythm First-degree AV block PA interval 212 milliseconds Ventricular rate 86 Normal axis Occasional PVC No ST T wave changes MDM Narrative Medical decision making narrative: It appears that the patient has been having multiple falls over the past month. He has difficulty standing at bedside here in the ER. Has had urinary difficulties as well. He did hit his head yesterday. He has no specific comp laints. His head CT is unremarkable. He has no neck pain. No extremity pain. Patient was seen by social work. It appears that approximately 1-2 months ago rather suddenly the patient started having visual hallucinations. He is seeing his who is been for the past several years. He has also been seen other objects. He occasionally has suicidal ideations with a plan but this is not a current issue today during this visit. Patient is not hypoglycemic. Electrolytes are unremarkable. Denies alcohol. Urinalysis and UDS pending at the time of admission although he denies drug use. He does have a distant alcohol use. He has also been having some memory issues recently. Unsure as to what is causing his hallucinations and suicidal ideations and also weakness although it is unusual for someone who is 66 to suddenly developed these. There was some concern about on organic cause. Patient unsafe to be discharged home. Discussed the case with Dr. Adams with Hospital Medicine who will admit for further evaluation and treatment. Discussed the need for admission with the patient who expressed understanding as well. Discharge Plan Departure Patient Disposition: Admitted as Observation Clinical Impression: Altered mental status, Visual hallucinations, Suicide ideation Admit Date/Time: 09/25/21 19:38
--- NOTE | 2021-09-25 16:40 | DI.CT.S_ITS ---
PROCEDURE: CT HEAD/BRAIN WO CON INDICATIONS: Weakness with multiple falls TECHNIQUE: Noncontrast 4.5 mm thick angled axial sections acquired from the foramen magnum to the vertex, with coronal and sagittal reformats. For radiation dose reduction, the following was used: automated exposure control, adjustment of mA and/or kV according to patient size. COMPARISON: [facility], CT, CT HEAD/BRAIN WO CON, 12/22/2018, 3:37. FINDINGS: Image quality: Excellent. CSF spaces: Basal cisterns are patent. No extra-axial fluid collections. The ventricles are symmetric in size and shape. Brain: No intracranial bleeds or masses. There is cerebral volume loss for age, with resultant ventricular and sulcal prominence. There are periventricular and deep white matter chronic small vessel ischemic changes. There is intracranial internal carotid artery atherosclerosis. Skull and face: Calvarium and visualized facial bones appear intact, without suspicious lesions. Sinuses: Visualized sinuses and mastoids are clear. IMPRESSION: No acute intracranial abnormality. Dictated by: Perri Castillo M.D. on 09/25/2021 at 17:00 Approved by: Perri Castillo M.D. on 09/25/2021 at 17:01
[2021-09-25 16:46] LABS: Alanine Aminotransferase 40 IU/L (<50); Albumin 4.4 g/dL (3.5-5.0); Albumin Globulin Ratio 1.3 (1.0-2.8); Alkaline Phosphatase 83 U/L (38-126); Aspartate Aminotransferase 44 IU/L (17-59); BUN Creatinine Ratio 17.6 (6-22); Blood Urea Nitrogen 16 mg/dL (9-20); Calcium 9.4 mg/dL (8.4-10.2); Carbon Dioxide 27 mmol/L (22-32); Chloride 99 mmol/L (98-107); Creatine Kinase 498 U/L (55-170); Estimated Glomerular Filt Rate > 60.0 mL/min (>60); Globulin 3.5 g/dL (1.7-4.1); Glucose 191 mg/dL (80-110); HEMOLYSIS 18 (0-50); Lipase 47 U/L (23-300); Potassium 4.5 mmol/L (3.4-5.1); Sodium 137 mmol/L (137-145); Total Protein 7.9 g/dL (6.3-8.2)
[2021-09-25 16:57] LABS: Troponin I < 0.012 ng/mL (0.01-0.034)
[2021-09-25 17:01] LABS: CKMB % Relative Index 1.5 % (1.5-5.0); Creatine Kinase MB 7.46 ng/mL (<2.37)
[2021-09-25 19:06] LABS: Acetaminophen < 10 ug/mL (10-30); Ethanol (ETOH) < 10 mg/dL
[2021-09-25 19:07] LABS: Salicylate < 1.0 mg/dL (<20)
[2021-09-25 19:09] LABS: Ammonia (NH3) < 9 umol/L (9-30)
--- NOTE | 2021-09-25 19:13 | CM.SWNOTE ---
FURNACE UTILITY OPERATOR Assessment Note FURNACE UTILITY OPERATOR receives consult and enters room to meet with patient. Patient is 66 y/o male who presents to the ED via EMS with concern of recent GLFs and chest pain. Patient endorses that he started falling all of a sudden about two months ago. Patient has hx of type 2 diabetes, sleep apnea, COPD, CAD and CHF. Patient's PCP is Dr. Rutherford. Patient has [employer] Medicare and [employer]. Patient endorses interest in seeking eligibility for Medicaid. Patient endorses that he lives alone. Patient states that his in March of 2019. Patient states that he was living with his son and his family aprox 3 months ago but that living situation did not work out. Patient states that his son or grandson check in on him every 3-4 days. Patient endorses when he falls he tries to get up himself and if he cannot get up he calls his grandson or son. Patient states that he does not drive and receives rides from family members. Patient endorses that he has a motor scooter, walker, and cane. Patient endorses basic independence with ADLs. Patient states he receives Meals on Wheels and usually cooks frozen foods. Patient endorses that he and his son have been discussing patient moving to an adult family home. Patient endorses no hx of GLFs prior to 2 months ago. Patient also endorses gradual increase of visual hallucinations in the last few months. Patient endorses that his hallucinations feel like he is high on LSD. Patient endorses that today he saw cute weird rodents. Patient endorses that he occasionally sees his and last night he saw his grandmother and mother. Patient endorses hx of ETOH daily use. Patient denies ETOH for the last 2 weeks. Patient endorses he used to drink 1/2 gallon of whiskey in a 4-5 day span of time. Patient endorses that he is being set up for a MH assessment. FURNACE UTILITY OPERATOR reviews that patient has initial BHIP appt with LYN Avilez, [facility] on 10/03/21. Patient endorses that he has been very depressed. Patient endorses that his PCP Dr. Rutherford doubled his rx for Wellbutrin. Patient denies current SI but endorses hx of thoughts of jumping off of a bridge or hanging himself. Patient states that not like himself sometimes. Patient states that is depression is triggered by the of his and his daughter. Patient endorses that he does not like living alone. Patient endorses his uncertainty about him safely returning home. FURNACE UTILITY OPERATOR reviews the above to ED provider Dr. Burt and endorses that he consulted with hospitalist Dr. Adams and patient is to be admitted for further medical assessment. FURNACE UTILITY OPERATOR calls to refer patient for Medicaid and [facility] intake, FURNACE UTILITY OPERATOR leaves with [facility] phone information and request for return call. Plan: Patient to be admitted to acute care, [facility] to f/u with POC. LYN Bauman
[2021-09-25 19:31] LABS: Appearance Urine UA CLEAR; Bilirubin Urine UA NEGATIVE (NEGATIVE); Color Urine UA YELLOW; Glucose Urine UA NEGATIVE (Negative); Ketones Urine UA NEGATIVE (NEGATIVE); Leukocyte Esterase Urine UA NEGATIVE (NEGATIVE); Nitrite Urine UA NEGATIVE (Negative); Occult Blood Urine UA TRACE-LYSED (Negative); Protein Urine UA 2+ (Negative); Specific Gravity Urine UA 1.015 (1.000-1.035); pH Urine UA 7.5 (4.5-8.0)
[2021-09-25 19:49] LABS: Ur Creatinine Normal (Normal); Ur Specific Gravity Normal (Normal); Urine pH Normal (Normal)
[2021-09-25 19:50] LABS: UR Morphine/Opiate cutoff 300 Negative (Negative); Urine Amphetamines Negative (Negative); Urine Barbiturates Negative (Negative); Urine Benzodiazepines Positive (Negative); Urine Cocaine Negative (Negative); Urine MDMA Negative (Negative); Urine Methadone Negative (Negative); Urine Methamphetamines Negative (Negative); Urine Oxycodone Negative (Negative); Urine Phencyclidine Negative (Negative); Urine Tetrahydrocannabinol Positive (Negative); Urine Tricyclic Antidepressant Positive (Negative)
[2021-09-25 19:53] LABS: Bacteria Urine None Seen; Culture Indicated Urine Cult Not Indicated; RBC Urine 0-1/HPF (0-5/HPF); Squamous Epithelial Cell Urine 0-1 /HPF (0-5/HPF); WBC Urine 0-1/HPF (0-5/HPF)
--- NOTE | 2021-09-25 20:44 | P.HP_ITS ---
History of Present Illness History of Present Illness Date Patient Seen: 09/25/21 Time Patient Seen: 20:00 Chief complaint: Fall yesterday, chest pain Narrative: Mr. Randall is a 66M with PMH CAD, COPD, Type 2 DM on insulin, HTN, BPH, hypothyroidism who presents for chest pain and falls. He states that he lives alone. He has noted for nearly two years at least that he has had more difficulty with ambulation. This has progressed over the last couple months. He has started having more frequent falls. He feels that he is imbalanced. He does not lose consciousness. He feels that sometimes his legs feel weak. He has no back pain. He also notes that he has had hallucinations for a couple months. He notes visual and auditory hallucinations. They sound like complex hallucinations where he will see unusual animals, for people will speak to him. He says they don't tell me to do bad things. He has been depressed, and has previously felt suicidal but denies feeling suicidal now. He has not seen a psychiatrist or other mental health therapist, he has been prescribed anti-depressants by his PCP. He has not had any incontinence. He has not had cough/fevers, shortness of breath, nausea, vomiting, abdominal pain, diarrhea, dysuria. He has no focal weakness, no numbness. Today he also had an episode of chest pain at home, started at rest, improved with nitro. He had no shortness of breath. His chest pain was substernal with no radiation. He appears to have had unstable angina in April of 2020 for which he was transferred to [facility]. His last stress test in our system was in 2018. He also had a cardiac cath in January 2021 that showed significant multivessel disease which was unchanged from prior cath. In the ED workup was done, vitals notable for elevated blood pressure. Labs notable for WBC 9.8, hgb 12.8, plts 210, creatinine 0.91. Ammonia negative. Troponin negative. EtOH negative. UA negative. Urine drug screen positive for marijuana, benzons, TCAs. Chest xray showed chronic interstitial changes. CT head showed no acute process. He was admitted for further treatment. Patient History Medical History Bilateral otitis externa Cellulitis Chicken pox (1956) Chickenpox (1956) Chronic cough COPD (chronic obstructive pulmonary disease) Coronary artery disease (2006) Depression (2009) Diabetes (1994) Eczema Foot pain GERD (gastroesophageal reflux disease) (2012) Gout Hearing reduced Hip pain History of recurrent TIAs Hyperlipidemia Hypertension Hypothyroidism Kidney disease (2009) Measles (1955) Measles (1955) Mental health assessment declined Mumps (1958) Mumps (1958) Neuropathy Obstructive sleep apnea Otitis externa Screening for malignant neoplasm of colon Shoulder pain Sleep apnea Status post myocardial infarction Steatosis Strain of muscle of right groin region (03/30/18) Type 2 diabetes mellitus Well adult exam Surgical History Anesthesia History of heart artery stent (2006) History of heart artery stent (2010) Hx of shoulder surgery (2005) Family & Social History Family History Brother Age: 67 Diabetes mellitus Hyperlipidemia Mother Heart disease Hypertension Hyperlipidemia Diabetes mellitus Grandmother Diabetes mellitus Brother No problems noted. Sister Breast cancer Social History: household members none Prior Living Arrangements Apartment/Condo Safety & Behavioral: Feels Safe in Current Yes Environment Been Physically Hurt or No Threatened By a Person Suicidal Ideation Description Vague Tobacco & Substance use: Tobacco type cigarettes Smoking Status Current every day smoker Smoking packs per day 0.5 alcohol intake current alcohol intake frequency a few times a week Substance Use Type marijuana Meds Home Medications and Allergies Home Medications Medication Instructions Recorded Confirmed Type ipratropium 0.5 mg-albuterol 3 mg 3 ml INH QID #360 ml 03/12/19 09/25/21 Rx (2.5 mg base)/3 mL nebulization soln Test strips #1 each 03/22/20 09/25/21 Rx insulin aspart U-100 100 unit/mL See Rx Instructions SUBCUT 05/01/20 09/25/21 Rx (3 mL) subcutaneous pen (Novolog .COMPLEX #15 ml Flexpen U-100 Insulin aspart) beclomethasone dipropionate 40 1 inhalation INHALATION BID #10.6 05/29/20 09/25/21 Rx mcg/actuation HFA breath activated gram aerosol atorvastatin 80 mg tablet 80 mg PO DAILY #90 tab 08/22/20 09/25/21 Rx metoprolol tartrate 50 mg tablet 50 mg PO BID #180 tab 08/22/20 09/25/21 Rx blood-glucose meter #1 ea 01/11/21 09/25/21 Rx Disabled Parking Permit #1 ea 02/15/21 09/25/21 Rx blood sugar diagnostic (Blood #100 ea 03/01/21 09/25/21 Rx Glucose Test) lancets 33 gauge (BD Ultra Fine #100 ea 03/01/21 09/25/21 Rx Lancets) isosorbide mononitrate 60 mg 60 mg PO QAM #90 tab 03/15/21 09/25/21 Rx tablet,extended release 24 hr gabapentin 300 mg capsule 900 mg PO BID #540 cap 04/12/21 09/25/21 Rx albuterol sulfate 90 mcg/actuation 2 puff INHALATION QID PRN #18 gram 04/22/21 09/25/21 Rx aerosol inhaler (Proventil HFA) levothyroxine 125 mcg tablet 125 mcg PO DAILY #90 tab 06/03/21 09/25/21 Rx furosemide 20 mg tablet 20 mg PO DAILY #90 tab 06/11/21 09/25/21 Rx pen needle, diabetic 31 gauge x #100 each 06/18/21 09/25/21 Rx 5/16 (Comfort EZ Pen Turner) clopidogrel 75 mg tablet 75 mg PO DAILY #90 tab 07/15/21 09/25/21 Rx lisinopril 2.5 mg tablet 2.5 mg PO QAM #90 tab 07/15/21 09/25/21 Rx triamcinolone acetonide 0.1 % 1 applic TOP DAILY #30 gram 07/15/21 09/25/21 Rx topical cream insulin glargine U-300 conc 300 80 unit (0.2667 mL) SUBCUT BID #15 07/25/21 09/25/21 Rx unit/mL (3 mL) subcutaneous pen ml citalopram 40 mg tablet (Celexa) 40 mg PO DAILY #90 tab 08/08/21 09/25/21 Rx lorazepam 1 mg tablet 1 mg PO BID PRN #30 tab 08/13/21 09/25/21 Rx mupirocin 2 % topical ointment 1 applic TOP BID #30 gram 08/13/21 09/25/21 Rx nitroglycerin 0.4 mg sublingual 0.4 mg SUBLINGUAL PRN PRN #20 tab 08/13/21 09/25/21 Rx tablet omeprazole 20 mg tablet,delayed 20 mg PO DAILY #90 tab 08/13/21 09/25/21 Rx release tamsulosin 0.4 mg capsule (Flomax) 0.4 mg PO DAILY #90 cap 08/13/21 09/25/21 Rx methocarbamol 500 mg tablet 500 mg PO TID PRN #90 tab 08/19/21 09/25/21 Rx bupropion HCl 300 mg 24 hr tablet, 300 mg PO QAM #90 tab 08/26/21 09/25/21 Rx extended release cyclobenzaprine 10 mg tablet 10 mg PO TID PRN #10 tab 09/14/21 09/25/21 Rx oxycodone 5 mg tablet 5 mg PO Q4-6H PRN #60 tab 09/16/21 09/25/21 Rx Allergies Allergy/AdvReac Type Severity Reaction Status Date / Time adhesive Allergy Mild REDNESS/ITC Verified 09/13/21 20:50 HINESS morphine Allergy Verified 09/13/21 20:50 Review of Systems Review of Systems Narrative: 14 systems reviewed and negative aside from what is noted in HPI Exam Vital Signs (past 8 hours): - 09/26/21 00:30 09/26/21 00:40 09/26/21 01:32 Pulse Rate 81 78 Blood Pressure 178/84 H 153/79 H Pulse Oximetry 97 Oxygen Delivery Method Room Air Oxygen Flow Rate 0 Narrative Exam Narrative: GEN: no acute distress HEENT: moist mucous membranes, PERRL NECK: no JVD, trachea midline CV: regular rate and rhythm, no murmurs PULM: clear bilaterally ABD: soft, nontender, nondistended, no organomegaly EXT: warm and well perfused with no edema NEURO: awake, alert, oriented, no focal deficits PSYCH: pleasant, cooperative Objective Labs Result Diagrams: 09/25/21 16:16 09/25/21 16:16 Labs: Laboratory Results - last 24 hr 09/25/21 09/25/21 09/25/21 16:16 16:16 16:16 WBC 9.8 RBC 4.08 L Hgb 12.8 L Hct 37.9 L MCV 92.7 MCH 31.5 MCHC 33.9 RDW 14.8 Plt Count 210 Neut % (Auto) 78.1 H Lymph % (Auto) 11.8 L Gibson % (Auto) 7.8 Eos % (Auto) 2.0 Baso % (Auto) 0.3 Neut # (Auto) 7600 H Lymph # (Auto) 1200 Gibson # (Auto) 800 Eos # (Auto) 200 Baso # (Auto) 0 PT 13.3 H INR 1.2 APTT 33 Sodium 137 Potassium 4.5 Chloride 99 Carbon Dioxide 27 BUN 16 Creatinine 0.91 Estimated GFR > 60.0 BUN/Creatinine Ratio 17.6 Glucose 191 H Calcium 9.4 Total Bilirubin 1.0 AST 44 ALT 40 Alkaline Phosphatase 83 Ammonia Total Creatine Kinase 498 H CK-MB (CK-2) 7.46 H CK-MB (CK-2) Rel Index 1.5 Troponin I < 0.012 Total Protein 7.9 Albumin 4.4 Globulin 3.5 Albumin/Globulin Ratio 1.3 Lipase 47 Urine Color Urine Appearance Urine pH Ur Specific [place] Urine Protein Urine Glucose (UA) Urine Ketones Urine Occult Blood Urine Nitrate Urine Bilirubin Urine Urobilinogen Ur Leukocyte Esterase Urine RBC Urine WBC Ur Squamous Epith Cells Urine Bacteria Ur Culture Indicated? Salicylates U Opiates 300ng/mL cut Ur Oxycodone Screen Urine Methadone Screen Acetaminophen Ur Barbiturates Screen U Tricyclic Antidepress Ur Phencyclidine Scrn Ur Amphetamines Screen U Methamphetamines Scrn Ur MDMA Scrn (Ecstasy) U Benzodiazepines Scrn Urine Cocaine Screen U Marijuana (THC) Screen Ethyl Alcohol SARS-CoV-2 (PCR) 09/25/21 09/25/21 09/25/21 16:16 16:16 18:54 WBC RBC Hgb Hct MCV MCH MCHC RDW Plt Count Neut % (Auto) Lymph % (Auto) Gibson % (Auto) Eos % (Auto) Baso % (Auto) Neut # (Auto) Lymph # (Auto) Gibson # (Auto) Eos # (Auto) Baso # (Auto) PT INR APTT Sodium Potassium Chloride Carbon Dioxide BUN Creatinine Estimated GFR BUN/Creatinine Ratio Glucose Calcium Total Bilirubin AST ALT Alkaline Phosphatase Ammonia < 9 L Total Creatine Kinase CK-MB (CK-2) CK-MB (CK-2) Rel Index Troponin I Total Protein Albumin Globulin Albumin/Globulin Ratio Lipase Urine Color Urine Appearance Urine pH Ur Specific [place] Urine Protein Urine Glucose (UA) Urine Ketones Urine Occult Blood Urine Nitrate Urine Bilirubin Urine Urobilinogen Ur Leukocyte Esterase Urine RBC Urine WBC Ur Squamous Epith Cells Urine Bacteria Ur Culture Indicated? Salicylates < 1.0 U Opiates 300ng/mL cut Ur Oxycodone Screen Urine Methadone Screen Acetaminophen < 10 L Ur Barbiturates Screen U Tricyclic Antidepress Ur Phencyclidine Scrn Ur Amphetamines Screen U Methamphetamines Scrn Ur MDMA Scrn (Ecstasy) U Benzodiazepines Scrn Urine Cocaine Screen U Marijuana (THC) Screen Ethyl Alcohol < 10 SARS-CoV-2 (PCR) 09/25/21 09/25/21 09/25/21 19:17 19:17 19:28 WBC RBC Hgb Hct MCV MCH MCHC RDW Plt Count Neut % (Auto) Lymph % (Auto) Gibson % (Auto) Eos % (Auto) Baso % (Auto) Neut # (Auto) Lymph # (Auto) Gibson # (Auto) Eos # (Auto) Baso # (Auto) PT INR APTT Sodium Potassium Chloride Carbon Dioxide BUN Creatinine Estimated GFR BUN/Creatinine Ratio Glucose Calcium Total Bilirubin AST ALT Alkaline Phosphatase Ammonia Total Creatine Kinase CK-MB (CK-2) CK-MB (CK-2) Rel Index Troponin I Total Protein Albumin Globulin Albumin/Globulin Ratio Lipase Urine Color Yellow Urine Appearance Clear Urine pH 7.5 Ur Specific [place] 1.015 Urine Protein 2+ H Urine Glucose (UA) Negative Urine Ketones Negative Urine Occult Blood Trace-lysed Urine Nitrate Negative Urine Bilirubin Negative Urine Urobilinogen 1.0 Ur Leukocyte Esterase Negative Urine RBC 0-1/hpf Urine WBC 0-1/hpf Ur Squamous Epith Cells 0-1 /hpf Urine Bacteria None seen Ur Culture Indicated? Cult not indicated Salicylates U Opiates 300ng/mL cut Negative Ur Oxycodone Screen Negative Urine Methadone Screen Negative Acetaminophen Ur Barbiturates Screen Negative U Tricyclic Antidepress Positive H Ur Phencyclidine Scrn Negative Ur Amphetamines Screen Negative U Methamphetamines Scrn Negative Ur MDMA Scrn (Ecstasy) Negative U Benzodiazepines Scrn Positive H Urine Cocaine Screen Negative U Marijuana (THC) Screen Positive H Ethyl Alcohol SARS-CoV-2 (PCR) Negative 09/25/21 22:55 WBC RBC Hgb Hct MCV MCH MCHC RDW Plt Count Neut % (Auto) Lymph % (Auto) Gibson % (Auto) Eos % (Auto) Baso % (Auto) Neut # (Auto) Lymph # (Auto) Gibson # (Auto) Eos # (Auto) Baso # (Auto) PT INR APTT Sodium Potassium Chloride Carbon Dioxide BUN Creatinine Estimated GFR BUN/Creatinine Ratio Glucose Calcium Total Bilirubin AST ALT Alkaline Phosphatase Ammonia Total Creatine Kinase CK-MB (CK-2) CK-MB (CK-2) Rel Index Troponin I < 0.012 Total Protein Albumin Globulin Albumin/Globulin Ratio Lipase Urine Color Urine Appearance Urine pH Ur Specific [place] Urine Protein Urine Glucose (UA) Urine Ketones Urine Occult Blood Urine Nitrate Urine Bilirubin Urine Urobilinogen Ur Leukocyte Esterase Urine RBC Urine WBC Ur Squamous Epith Cells Urine Bacteria Ur Culture Indicated? Salicylates U Opiates 300ng/mL cut Ur Oxycodone Screen Urine Methadone Screen Acetaminophen Ur Barbiturates Screen U Tricyclic Antidepress Ur Phencyclidine Scrn Ur Amphetamines Screen U Methamphetamines Scrn Ur MDMA Scrn (Ecstasy) U Benzodiazepines Scrn Urine Cocaine Screen U Marijuana (THC) Screen Ethyl Alcohol SARS-CoV-2 (PCR) Assessment & Plan Assessment & Plan narrative: Mr. Randall is a 66M with PMH CAD, DM2 on insulin, BPH who presents with progressively worsening falls, unsteadiness and hallucinations. 1. Falls, hallucinations -differential includes parkinsonism such as lewy body dementia, drug, psychiatric disorder, infarct, less likely infectious, or seizure -UA negative, chest xray negative -CT head with no acute process -urine drug screen positive for marijuana, benzos, and TCA -hold benzos for now -ammonia negative -check TSH -ordered for MRI -PT/OT ordered -may benefit from psych consult 2. Acute chest pain -trend troponins, first troponin negative -EKG showed no acute ischemia -continue plavix, statin -can consider stress test but has had two cardiac cath in 07/2020 and 01/2021 that shows significant multivessel disease but unchanged from prior 3. Type 2 Diabetes on insulin -continue insulin at home dose 80U BID -high dose insulin sliding scale 4. CAD -continue lasix, plavix, statin, imdur 5. BPH with acute urinary retention -continue tamsulosin -magaña placed for acute urinary retention -UA negative for infection 6. HTN -continue lisinopril 7. COPD -not in exacerbation -continue nebs 8. Depression -continue wellbutrin CODE: Full Proxy: Cy Randall, son I have utilized all available immediate resources to obtain, update, or review of the patient's current medications Time Spent With Patient Critical Care time: I spent a total of [] minutes of critical care time on this patient's care today; this time is exclusive of procedural time. Quality MIPS - Admit I confirm the patient?s Advance Care Plan is present, Code status is documented, Surrogate decision maker is in patient?s record [If Yes, STOP here]: Yes
[2021-09-25 20:57] LABS: COVID19 - ADMIT (NP swab/PCR) Negative (Negative)
[2021-09-25] MEDS: INSULIN GLARGINE 100 UNIT/ML 3ML PEN 80 UNIT SUBCUT (21:42)
[2021-09-25] MEDS: ATORVASTATIN 20 MG TABLET 40 MG PO (21:42)
[2021-09-25 23:26] LABS: Troponin I < 0.012 ng/mL (0.01-0.034)
[2021-09-26] VITALS (12 sets, daily range): BP systolic 99–178; BP diastolic 44–84; PULSE 56–81; RESP 17–20; TEMP 36.6–37.3; O2SAT 92–98
[2021-09-26] MEDS: METOPROLOL IR 50 MG TABLET PO ×2 (00:34→10:13)
[2021-09-26] MEDS: LEVOTHYROXINE 125 MCG TABLET PO (06:30)
[2021-09-26 06:33] LABS: Add Manual Diff / Slide Review NO; Basophils Absolute Auto 0 /uL (0-100); Basophils Percent Auto 0.2 % (0-2); Eosinophils Absolute Auto 200 /uL (0-450); Eosinophils Percent Auto 2.3 % (2-4); Hematocrit 39.6 % (41-53); Hemoglobin 13.3 g/dL (13.5-17.5); Lymphocytes Absolute Auto 1600 /uL (1100-4500); Lymphocytes Percent Auto 18.6 % (25-40); Mean Corpuscular HGB Conc 33.7 % (30-36); Mean Corpuscular Hemoglobin 31.3 PG (26-34); Mean Corpuscular Volume 92.8 fL (80-100); Monocytes Absolute Auto 700 /uL (0-900); Monocytes Percent Auto 7.7 % (3-14); Neutrophils Absolute Auto 6200 /uL (1500-7000); Neutrophils Percent Auto 71.2 % (50-75); Platelet Count 206 X10^3/uL (150-400); Red Blood Cell Count 4.26 X10^6/uL (4.5-5.9); Red Cell Distribution Width 14.5 % (11.6-14.8); White Blood Cell Count 8.7 X10^3/uL (4.5-11.0)
[2021-09-26 06:40] LABS: Hemoglobin A1C% w Est Avg Glu 7.8 % (4.0-6.0)
[2021-09-26 06:42] LABS: BUN Creatinine Ratio 16.7 (6-22); Blood Urea Nitrogen 14 mg/dL (9-20); Calcium 9.4 mg/dL (8.4-10.2); Carbon Dioxide 28 mmol/L (22-32); Chloride 101 mmol/L (98-107); Estimated Glomerular Filt Rate > 60.0 mL/min (>60); Glucose 68 mg/dL (80-110); HEMOLYSIS < 15 (0-50); Potassium 3.9 mmol/L (3.4-5.1); Sodium 138 mmol/L (137-145)
[2021-09-26 07:08] LABS: Troponin I < 0.012 ng/mL (0.01-0.034)
[2021-09-26 07:13] LABS: TSH w/ Reflex to FT4 2.39 uIU/mL (0.47-4.68)
--- NOTE | 2021-09-26 07:32 | PC.ADMIT ---
[address] Admission Note: The patient,Carlos Randall,66 y/o, was given written information regarding hospital policies, unit procedures and contact persons. Patient's smoking status: Current every day smoker. Vital Signs - 8 hr 09/26/21 00:30 09/26/21 00:40 09/26/21 01:32 Temperature Pulse Rate 81 78 Respiratory Rate Blood Pressure 178/84 H 153/79 H Pulse Oximetry 97 09/26/21 06:00 Temperature 99.2 F Pulse Rate 56 L Respiratory Rate 18 Blood Pressure 165/79 H Pulse Oximetry 93 Pt arrived on unit in wheelchair. Report from ED indicated pt was SBA w/ FWW- on arrival, pt could not stand up from chair and needed assistance. Pt is unable to remain sitting in bed and needs assistance from two people to stand w/ a walker. Pt retaining urine, approx 480 in bladder scan, informed provider, rec'd order for magaña cath insertion. Approx 1200 mL urine obtained from magaña cath after placement. Pt hypertensive, SBP 170-180 and DBP 90s. BP did not lower after magaña cath placed. Contacted provider, requested noc BP meds be given. Lisinopril and metoprolol ordered, metoprolol IR 50 mg given. After approx 1 hour, BP lowered to 150s/70s. Pt poor historian. Pt endorses hx of SI w/ plan, but says he has no current active suicidal thoughts. Pt endorses prior AVH, no current hallucinations.
[2021-09-26] MEDS: LORazepam 2 MG/ML INJ 1 MG IV ×3 (09:02→17:55)
[2021-09-26] MEDS: CITALOPRAM 10 MG TABLET 40 MG PO (10:09)
[2021-09-26] MEDS: buPROPion XL 150 MG TAB 300 MG PO (10:09)
[2021-09-26] MEDS: CLOPIDOGREL 75 MG TABLET PO (10:09)
[2021-09-26] MEDS: FUROSEMIDE 20 MG TABLET PO (10:09)
[2021-09-26] MEDS: ENOXAPARIN 40 MG/0.4 ML SYRINGE SUBCUT (10:09)
[2021-09-26] MEDS: TAMSULOSIN 0.4 MG CAPSULE PO (10:09)
[2021-09-26] MEDS: lisinopriL 5 MG TABLET 2.5 MG PO (10:11)
[2021-09-26] MEDS: ISOSORBIDE MONONITRATE ER 30 MG TABLET 60 MG PO (10:13)
--- NOTE | 2021-09-26 12:39 | P.PN_ITS ---
Subjective Subjective Date Patient Seen: 09/26/21 Interval history: THIS IS A 66-YEAR-OLD MALE WITH SOME UNDERLYING PSYCHIATRIC ISSUES WHICH INCLUDE ANXIETY PATIENT WAS ADMITTED TO THE HOSPITAL DUE TO CHANGE IN MENTATION WORKUP HAS BEEN NEGATIVE APART FROM CANNABIS IN HIS URINE DRUG SCREEN TODAY HE IS ALERT, AWAKE, ORIENTED X3. HE REPORTED GENERALIZED WEAKNESS HE IS A TOBACCO USER. DENIES ANY HEADACHES OR CHANGES IN VISION REPORTED SEVERAL FALLS IN THE LAST FEW WEEKS. NO NAUSEA OR VOMITING. NO CHEST PAIN. NO CHEST PALPITATIONS NO OTHER COMPLAINTS Exam Vital Signs (past 8 hours): - 09/26/21 06:00 09/26/21 08:00 Temperature 99.2 F Pulse Rate 56 L Respiratory Rate 18 Blood Pressure 165/79 H Pulse Oximetry 93 95 Oxygen Delivery Method Room Air Oxygen Flow Rate 0 Narrative Exam Narrative: NO ACUTE DISTRESS. PATIENT IS ALERT ORIENTED X3. APPEARS MUCH OLDER THAN STATED AGE. OBESE VITAL SIGNS STABLE HEAD ATRAUMATIC NORMOCEPHALIC NECK : SUPPLE WITHOUT ADENOPATHY NO CAROTID BRUITS EYE: EOMI, PERRLA, NORMAL CONJUNCTIVA; NO JAUNDICE CHEST: REGULAR RATE. NO RUBS. PMI IS NON DISPLACED. NO MURMURS; NORMAL S1- S2 PULMONARY: DECREASED BS OVER THE BASES. MILD BIBASILAR CRACKLES NOTED; NO INCREASED DULLNESS TO PERCUSSION ABDOMEN: SOFT. NONTENDER. NONDISTENDED. BOWEL SOUNDS ARE PRESENT IN ALL 4 QUADRANTS. NO MASS. EXTREMITIES: NO EDEMA.. NO CYANOSIS CLUBBING NOTED. NEURO: CRANIAL NERVES 2-12 GROSSLY INTACT. NO FOCAL NEUROLOGICAL DEFICIT NOTED. SENSATION INTACT TO ALL EXTREMITIES MSK: NORMAL RANGE OF MOTION FOR AGE. NO JOINT EFFUSION. PULL MUSCULATURE FOR AGE SKIN: NORMAL FOR ETHNICITY; NO ECCHYMOSIS. NO LESION. GOOD TURGOR.; NO RASHES : NORMAL EXTERNAL GENITALIA. NOWAK CATHETER IN PLACE. YELLOWISH URINE APPRECIATED. PSYCH : APPROPRIATE MOOD AND AFFECT. ALERT AWAKE ORIENTED X3 Objective Labs Result Diagrams: 09/26/21 06:00 09/26/21 06:00 Labs: Laboratory Results - last 24 hr 09/25/21 09/25/21 09/25/21 16:16 16:16 16:16 WBC 9.8 RBC 4.08 L Hgb 12.8 L Hct 37.9 L MCV 92.7 MCH 31.5 MCHC 33.9 RDW 14.8 Plt Count 210 Neut % (Auto) 78.1 H Lymph % (Auto) 11.[address] [place] % (Auto) 7.8 Eos % (Auto) 2.0 Baso % (Auto) 0.3 Neut # (Auto) 7600 H Lymph # (Auto) 1200 [place] # (Auto) 800 Eos # (Auto) 200 Baso # (Auto) 0 PT 13.3 H INR 1.2 APTT 33 Sodium 137 Potassium 4.5 Chloride 99 Carbon Dioxide 27 BUN 16 Creatinine 0.91 Estimated GFR > 60.0 BUN/Creatinine Ratio 17.6 Glucose 191 H Hemoglobin A1c Calcium 9.4 Total Bilirubin 1.0 AST 44 ALT 40 Alkaline Phosphatase 83 Ammonia Total Creatine Kinase 498 H CK-MB (CK-2) 7.46 H CK-MB (CK-2) Rel Index 1.5 Troponin I < 0.012 Total Protein 7.9 Albumin 4.4 Globulin 3.5 Albumin/Globulin Ratio 1.3 Lipase 47 TSH Urine Color Urine Appearance Urine pH Ur Specific Satin Urine Protein Urine Glucose (UA) Urine Ketones Urine Occult Blood Urine Nitrate Urine Bilirubin Urine Urobilinogen Ur Leukocyte Esterase Urine RBC Urine WBC Ur Squamous Epith Cells Urine Bacteria Ur Culture Indicated? Salicylates U Opiates 300ng/mL cut Ur Oxycodone Screen Urine Methadone Screen Acetaminophen Ur Barbiturates Screen U Tricyclic Antidepress Ur Phencyclidine Scrn Ur Amphetamines Screen U Methamphetamines Scrn Ur MDMA Scrn (Ecstasy) U Benzodiazepines Scrn Urine Cocaine Screen U Marijuana (THC) Screen Ethyl Alcohol SARS-CoV-2 (PCR) 09/25/21 09/25/21 09/25/21 16:16 16:16 18:54 WBC RBC Hgb Hct MCV MCH MCHC RDW Plt Count Neut % (Auto) Lymph % (Auto) [place] % (Auto) Eos % (Auto) Baso % (Auto) Neut # (Auto) Lymph # (Auto) [place] # (Auto) Eos # (Auto) Baso # (Auto) PT INR APTT Sodium Potassium Chloride Carbon Dioxide BUN Creatinine Estimated GFR BUN/Creatinine Ratio Glucose Hemoglobin A1c Calcium Total Bilirubin AST ALT Alkaline Phosphatase Ammonia < 9 L Total Creatine Kinase CK-MB (CK-2) CK-MB (CK-2) Rel Index Troponin I Total Protein Albumin Globulin Albumin/Globulin Ratio Lipase TSH Urine Color Urine Appearance Urine pH Ur Specific Satin Urine Protein Urine Glucose (UA) Urine Ketones Urine Occult Blood Urine Nitrate Urine Bilirubin Urine Urobilinogen Ur Leukocyte Esterase Urine RBC Urine WBC Ur Squamous Epith Cells Urine Bacteria Ur Culture Indicated? Salicylates < 1.0 U Opiates 300ng/mL cut Ur Oxycodone Screen Urine Methadone Screen Acetaminophen < 10 L Ur Barbiturates Screen U Tricyclic Antidepress Ur Phencyclidine Scrn Ur Amphetamines Screen U Methamphetamines Scrn Ur MDMA Scrn (Ecstasy) U Benzodiazepines Scrn Urine Cocaine Screen U Marijuana (THC) Screen Ethyl Alcohol < 10 SARS-CoV-2 (PCR) 09/25/21 09/25/21 09/25/21 19:17 19:17 19:28 WBC RBC Hgb Hct MCV MCH MCHC RDW Plt Count Neut % (Auto) Lymph % (Auto) [place] % (Auto) Eos % (Auto) Baso % (Auto) Neut # (Auto) Lymph # (Auto) [place] # (Auto) Eos # (Auto) Baso # (Auto) PT INR APTT Sodium Potassium Chloride Carbon Dioxide BUN Creatinine Estimated GFR BUN/Creatinine Ratio Glucose Hemoglobin A1c Calcium Total Bilirubin AST ALT Alkaline Phosphatase Ammonia Total Creatine Kinase CK-MB (CK-2) CK-MB (CK-2) Rel Index Troponin I Total Protein Albumin Globulin Albumin/Globulin Ratio Lipase TSH Urine Color Yellow Urine Appearance Clear Urine pH 7.5 Ur Specific Satin 1.015 Urine Protein 2+ H Urine Glucose (UA) Negative Urine Ketones Negative Urine Occult Blood Trace-lysed Urine Nitrate Negative Urine Bilirubin Negative Urine Urobilinogen 1.0 Ur Leukocyte Esterase Negative Urine RBC 0-1/hpf Urine WBC 0-1/hpf Ur Squamous Epith Cells 0-1 /hpf Urine Bacteria None seen Ur Culture Indicated? Cult not indicated Salicylates U Opiates 300ng/mL cut Negative Ur Oxycodone Screen Negative Urine Methadone Screen Negative Acetaminophen Ur Barbiturates Screen Negative U Tricyclic Antidepress Positive H Ur Phencyclidine Scrn Negative Ur Amphetamines Screen Negative U Methamphetamines Scrn Negative Ur MDMA Scrn (Ecstasy) Negative U Benzodiazepines Scrn Positive H Urine Cocaine Screen Negative U Marijuana (THC) Screen Positive H Ethyl Alcohol SARS-CoV-2 (PCR) Negative 09/25/21 09/26/21 09/26/21 22:55 06:00 06:00 WBC 8.7 RBC 4.26 L Hgb 13.3 L Hct 39.6 L MCV 92.8 MCH 31.3 MCHC 33.7 RDW 14.5 Plt Count 206 Neut % (Auto) 71.2 Lymph % (Auto) 18.[address] [place] % (Auto) 7.7 Eos % (Auto) 2.3 Baso % (Auto) 0.2 Neut # (Auto) 6200 Lymph # (Auto) 1600 [place] # (Auto) 700 Eos # (Auto) 200 Baso # (Auto) 0 PT INR APTT Sodium 138 Potassium 3.9 Chloride 101 Carbon Dioxide 28 BUN 14 Creatinine 0.84 Estimated GFR > 60.0 BUN/Creatinine Ratio 16.7 Glucose 68 L D Hemoglobin A1c Calcium 9.4 Total Bilirubin AST ALT Alkaline Phosphatase Ammonia Total Creatine Kinase CK-MB (CK-2) CK-MB (CK-2) Rel Index Troponin I < 0.012 Total Protein Albumin Globulin Albumin/Globulin Ratio Lipase TSH Urine Color Urine Appearance Urine pH Ur Specific Satin Urine Protein Urine Glucose (UA) Urine Ketones Urine Occult Blood Urine Nitrate Urine Bilirubin Urine Urobilinogen Ur Leukocyte Esterase Urine RBC Urine WBC Ur Squamous Epith Cells Urine Bacteria Ur Culture Indicated? Salicylates U Opiates 300ng/mL cut Ur Oxycodone Screen Urine Methadone Screen Acetaminophen Ur Barbiturates Screen U Tricyclic Antidepress Ur Phencyclidine Scrn Ur Amphetamines Screen U Methamphetamines Scrn Ur MDMA Scrn (Ecstasy) U Benzodiazepines Scrn Urine Cocaine Screen U Marijuana (THC) Screen Ethyl Alcohol SARS-CoV-2 (PCR) 09/26/21 09/26/21 09/26/21 06:00 06:00 06:00 WBC RBC Hgb Hct MCV MCH MCHC RDW Plt Count Neut % (Auto) Lymph % (Auto) [place] % (Auto) Eos % (Auto) Baso % (Auto) Neut # (Auto) Lymph # (Auto) [place] # (Auto) Eos # (Auto) Baso # (Auto) PT INR APTT Sodium Potassium Chloride Carbon Dioxide BUN Creatinine Estimated GFR BUN/Creatinine Ratio Glucose Hemoglobin A1c 7.8 H Calcium Total Bilirubin AST ALT Alkaline Phosphatase Ammonia Total Creatine Kinase CK-MB (CK-2) CK-MB (CK-2) Rel Index Troponin I < 0.012 Total Protein Albumin Globulin Albumin/Globulin Ratio Lipase TSH 2.39 Urine Color Urine Appearance Urine pH Ur Specific Satin Urine Protein Urine Glucose (UA) Urine Ketones Urine Occult Blood Urine Nitrate Urine Bilirubin Urine Urobilinogen Ur Leukocyte Esterase Urine RBC Urine WBC Ur Squamous Epith Cells Urine Bacteria Ur Culture Indicated? Salicylates U Opiates 300ng/mL cut Ur Oxycodone Screen Urine Methadone Screen Acetaminophen Ur Barbiturates Screen U Tricyclic Antidepress Ur Phencyclidine Scrn Ur Amphetamines Screen U Methamphetamines Scrn Ur MDMA Scrn (Ecstasy) U Benzodiazepines Scrn Urine Cocaine Screen U Marijuana (THC) Screen Ethyl Alcohol SARS-CoV-2 (PCR) [facility] Medical History Bilateral otitis externa Cellulitis Chicken pox (1956) Chickenpox (1956) Chronic cough COPD (chronic obstructive pulmonary disease) Coronary artery disease (2006) Depression (2008) Diabetes (1994) Eczema Foot pain GERD (gastroesophageal reflux disease) (2012) Gout Hearing reduced Hip pain History of recurrent TIAs Hyperlipidemia Hypertension Hypothyroidism Kidney disease (2009) Measles (1955) Measles (1955) Mental health assessment declined Mumps (1958) Mumps (1958) Neuropathy Obstructive sleep apnea Otitis externa Screening for malignant neoplasm of colon Shoulder pain Sleep apnea Status post myocardial infarction Steatosis Strain of muscle of right groin region (03/30/18) Type 2 diabetes mellitus Well adult exam Surgical History Anesthesia History of heart artery stent (2006) History of heart artery stent (2010) Hx of shoulder surgery (2005) Family History Brother Age: 67 Diabetes mellitus Hyperlipidemia Mother Heart disease Hypertension Hyperlipidemia Diabetes mellitus Grandmother Diabetes mellitus Brother No problems noted. Sister Breast cancer Social History household members: none Smoking Status: Current every day smoker Tobacco: How many years used: 45 alcohol intake: current Assessment & Plan Assessment & Plan narrative: PROBLEM LIST ACUTE ENCEPHALOPATHY. METABOLIC CAUSES COULD NOT BE FOUND. COULD HAVE BEEN DUE TO CANNABIS USE OBESITY. COUNSELING GIVEN ANEMIA. SUSPECT CHRONIC DISEASE ANXIETY AND DEPRESSION POSSIBLE DEMENTIA. 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 NOW WITH SOME URINARY RETENTION. TOBACCO ABUSE/NICOTINE ADDICTION. EXTENSIVE COUNSELING GIVEN PHYSICAL DECONDITIONING /DEBILITY. REFERRED TO PT AND OT PLAN WILL MAKE SOME CHANGES TO HIS MEDICATION REGIMEN INCLUDING THE SEEING IS RAMÓN STARTED ON TRAZODONE AND ZOLOFT WILL ADD SEROQUEL AND RISPERDAL DUE TO SUSPICION OF DEMENTIA WITH POSSIBLE ASSOCIATED PSYCHOSIS CONSULT PSYCHIATRY TEAM FOR RECOMMENDATIONS REFERRED TO PT AND OT FOR EVALUATION AND TREATMENT MET AND FOR PRECAUTION ALL TIME STRICT BLOOD PRESSURE AND BLOOD SUGAR CONTROL KEEP NOWAK CATHETER IN PLACE FOR NOW WILL CONSULT UROLOGY TEAM IF INDICATED MOBILIZE PATIENT MUCH TOLERATED SPOKE TO CASE MANAGEMENT IN REGARDING PLAN OF CARE GOING ONWARD POSSIBLE DISCHARGE TO CARE HOME FACILITY IF INDICATED VERSUS HOME WITH HOME HEALTH Time Spent With Patient Critical Care time: I spent a total of [] minutes of critical care time on this patient's care today; this time is exclusive of procedural time.
[2021-09-26] MEDS: risperiDONE 0.25 MG TABLET 0.5 MG PO ×2 (13:49→20:08)
[2021-09-26] MEDS: polyethylene glycoL 3350 17 GM POWD.PACK PO (14:00)
[2021-09-26] MEDS: FAMOTIDINE 20 MG TABLET PO ×2 (14:00→20:07)
--- NOTE | 2021-09-26 14:55 | PT.IIE ---
Surgical History (Last Reviewed 09/26/21 @ 05:44 by Jaden Adams MD) Anesthesia Medical History (Last Reviewed 09/26/21 @ 05:44 by Jaden Adams MD) Bilateral otitis externa Cellulitis Chicken pox (1956) Chickenpox (1956) Chronic cough COPD (chronic obstructive pulmonary disease) Coronary artery disease (2006) Depression (2008) Diabetes (1994) Eczema Foot pain GERD (gastroesophageal reflux disease) (2012) Gout Hearing reduced Hip pain History of recurrent TIAs Hyperlipidemia Hypertension Hypothyroidism Kidney disease (2009) Measles (1955) Measles (1955) Mental health assessment declined Mumps (1958) Mumps (1958) Neuropathy Obstructive sleep apnea Otitis externa Screening for malignant neoplasm of colon Shoulder pain Sleep apnea Status post myocardial infarction Steatosis Strain of muscle of right groin region (03/30/18) Type 2 diabetes mellitus Well adult exam Physical Therapy Inpatient Evaluation/Re-Eval M1 PT/OT-IP Prior Functional Status Start: 09/26/21 08:19 Freq: Status: Active Protocol: Document 09/26/21 14:00 MB (Rec: 09/26/21 14:55 MB [id number]) Medical Review Prior Functional Status Medical History Reviewed Yes Communication Communication, mobility and gait and home living situation is not clear and also not good. Per chart, pt lived alone, had past history of substance and mental health concerns, multiple falls and hallucinations. During assessment, he presents with B knee ecchymosis and multiple abrasions and scratches on legs. He does mention that his and that he is actively having hallucinations of geishas during assessment. Social History Household Members none Living Arrangements Apartment/Condo Number of Stairs To Enter/Railing? Pt cannot report clearly his home situation. He initially states he lives in [facility] and then he states he lives alone in [facility]. Overall, PT does not feel that he needs to return there but go to SNF so this information may not affect deposition decision given his presentation here. M2 PT-IP Current Condition Start: 09/26/21 08:19 Freq: Status: Active Protocol: Document 09/26/21 14:00 MB (Rec: 09/26/21 14:55 MB [id number]) Physical Therapy Current Condition Current Condition Evaluation Date 09/26/21 Treatment Diagnosis Hallucinations, weakness, falls Onset Date Appears acute on chronic M3 PT-IP Subjective Start: 09/26/21 08:19 Freq: Status: Active Protocol: Document 09/26/21 14:00 MB (Rec: 09/26/21 14:55 MB [id number]) Subjective Physical Therapy Visit Type Type Initial Evaluation Visit Start Time 14:00 Visit Stop Time 14:20 Total Visit Minutes 20 Number of DIRECTOR EMERGENCY DEPARTMENT Visits 0 Physical Therapy Visit Comments Patient Comments PT checks in on pt twice. On the first time, pt was eating and so PT checks back. He is pleasant upon return and is partially A&O and is able to know that he is hallucinating geishas and that he frequently hallucinates. He is pleasantly confused and does try to participate with PT. Therapy Pain Assessment Pain When Pain Assessed During Mobility Pain Present Pain Present Pain Reported Location Right thigh Scale Used Pt smiling throughout treatment Description Sharp,Stabbing Pain Behaviors Holding Area,Restlessness Pain Management Techniques Distraction,Modification of Treatment,Re-positioning M4 PT-IP Mobility and Gait Start: 09/26/21 08:19 Freq: Status: Active Protocol: Document 09/26/21 14:00 MB (Rec: 09/26/21 14:55 [id number]) PT-Bed Mobility Assessment Rolling Type of Rolling Roll to Right Level of Assist Minimal Assistance,1 Person Assistance Supine to Sit Supine to Sit Maximum Assistance,1 Person Assistance,Head of Bed Elevated,Bedrails Sit to Supine Sit to Supine Moderate Assistance,1 Person Assistance,Bedrails Scooting Scooting Up and Down in Bed Minimal Assistance PT-Transfer Assessment Comments Mobility Comments PT attempts to assess orthostatic hypotension today given falls and weakness and low BP in supine at 86/50, 57 in right UE. Pt has trouble following all commands for rolling to the right, reaching for the rail, lowering legs off and he requires ongoing VCs and tactile assist for all activities. His movements are guarded and ataxic and with strong posterior lean. His right thigh feels like it is spasming and PT checks it d/t his reports of sharp/stabbing pain there. He asks PT to help him to get his legs off the bed but they are already off the bed when he asks this. He requires max A to prevent falling back onto bed posteriorly when reaching sitting upright. STACKING MACHINE OPERATOR arrives to assist PT and PT flattens the HOB. Pt is able to bend his knees and press through his feet with PT holding them to block them in place and he scoots himself up in the bed with 2 trials of this and a final trial using arms to help after cued by PT. Left with bed alarm on, all rails up d/t hallucinations, HOB increased and call estrada nearby. PT-Balance Assessment Sitting Balance and Reactions Static Sitting Balance Ability Poor Dynamic Sitting Balance Ability Poor M5 PT-IP Objective Assessments Start: 09/26/21 08:19 Freq: Status: Active Protocol: Document 09/26/21 14:00 MB (Rec: 09/26/21 14:55 MB [id number]) Orientation Orientation/Cognition Level of Alertness Confusional State Orientation Name,Birthday,Place Safety Awareness Decreased Safety Awareness Memory Description Short Term Impaired,Head Packager Impaired Comments Pt is A&O to [facility] but he is not alert to date, reason why he is here , month and year. He can get month and year after cued to Thanksgiving. Gross Range of Motion Upper Extremity ROM Assessment Within Functional Limits Lower Extremity ROM Assessment Within Functional Limits Strength Comments Strength Comments Pt cannot follow MMT cues Coordination Assessment Assessment Coordination Comments Pt's LE movements are mildly ataxic with bed mobility Muscle Tone Comments Muscle Tone Comments Increased tone/spasm right thigh/vastus lateralis M7 PT-IP Assessment and Plan Start: 09/26/21 08:19 Freq: Status: Active Protocol: Document 09/26/21 14:00 MB (Rec: 09/26/21 14:55 MB [id number]) PT Summary Assessment and Plan Potential Rehabilitation Potential Fair Status of Condition at Evaluation Unstable Summary Impairments Pain,Strength,Balance, Coordination,Cognition,Bed Mobility,Transfers,Gait, Activity Tolerance Assessment Summary Pt is a 66 y/o male presenting pleasantly confused and with reports of active hallucinations of светлана today during PT assessment. He is hypotensive and PT had hoped to get him sitting EOB to see if his BP was dropping and could be a part of his falls at home. He cannot reach full sitting well d/t ataxia, poor body awareness/proprioception, posterior lean and confusion. Mobility assessment was very limited. He was able to describe that going to a SNF is his goal and PT is in agreement that this is a good plan once his acute delirium is better given history of falls and living at home alone . Barriers to acute PT include acute delirium and hypotension. Goals Bed Mobility Goal Independent Transfer Goal Contact Guard Assistance Gait Goal Contact Guard Assistance Gait Distance 25 Days to Meet Goals 5 Frequency of Treatment Frequency Of Treatment Once a Day Treatment Plan Physical Therapy Treatment Plan Bed Mobility Training,Transfer Training,Gait Training, Therapeutic Exercise,Balance Retraining,Discharge Planning, Hot or Cold Pack,Neuromuscular Re-ed,Coordination Retraining ,Manual Therapy Precautions Other Precautions Pt appears to have acute delirium and is actively hallucinating, fall risk Recommendations To Nursing Amount of Assist Needed Total Assistance Discharge Recommendations PT Discharge Recommendations SNF Rehab Transportation Needs at Discharge Wheelchair/Cabulance
--- NOTE | 2021-09-26 16:20 | CM.DANOTE ---
DCP/Assessment: Reviewed chart. Patient is a 66yr old male admitted to [facility] after fall at home? PCP is Dr. Rutherford. Primary payor is 1)[facility]? 2)Medicare? CELL LINER met with patient explained CM/SW role. Patient reports that he currently resides alone in [place] in apartment. Patient reports that recently he has been having hallucinations. Patient previously has also had suicidal ideation (last being about 1 month ago). Currently patient denies SI. Patient reports that he drinks alcohol, smokes cigarettes and marijuana on regular basis. Patient does acknowledge that when he drinks it makes his other chronic symptoms worse. It is unclear when patient drank last. Patient has motorized w/c, walker and cane at home that he uses daily. Patient reports that he is currently enrolled with [facility] but he feels like this is not enough care? Patient reports that he does not have Medicaid. Patient reports that he gets approxmitely $1,600.00 per month. Patient is interested in applying for Medicaid to have caregivers and/or family members as paid caregivers. Patient provided CELL LINER with permission to speak with her son/Cy. Placed call to Cy and he reports that patient would benefit from any available services. Cy reports that he has spoken with patient about caregiving and/or moving into adequate living. Son made aware that patient would benefit from applying for Medicaid. Son appreciative. Son also made aware that patient may need to return home when stable with resumed HH and extra care from family until long-term arrangements can be secured. Family understand. Also spoke with granddaughter/Magdalene # [phone]. In meantime, psychiatric evaluation pending for hallucinations and PT evaluation pending for therapy recommendations. Patient currently OBS status and not expected to remain hospitalized over 48hrs. Patient and son aware. P: Pending. KJS Discharge Planning/Care Management Advanced directive, confirm from FAMILY Start: 09/25/21 23:00 Freq: Q24H Status: Active Protocol: Document 09/25/21 23:00 MW (Rec: 09/26/21 06:54 MW [id number]) Advance Directive, confirm on record Time 23:00 Person contacted pt Copy received No CM Discharge Assessment Start: 09/26/21 16:15 Freq: Status: Active Protocol: Document 09/26/21 16:15 KJS (Rec: 09/26/21 16:20 Claudia [id number]) Discharge Planning Assessment Assigned [employer] Person LYN Bee Contact Information Cy Randall (son) ph# Advance Directives? No Advance Directives on File No History Provided By Patient,Family Member,Medical Record Prior Living Arrangements Apartment/Condo Household Members none Type of transporation used prior to Relies on Others admit Independent with ADL's No: Therapy evaluation pending . Is patient alert and oriented? Yes Needs Assistance With Meal Prep,Managing Medications ,Home Chores / Shopping Caregiver for Another No DME Already Rented / Owned Wheelchair Comment Patient reports that he has access to walker if needed. Patient also with motorized wheelchair. Patient/Family Preference Home with Home Health Comment Patient reports that he is on service with [facility] ? This was not confirmed on . Barriers to Discharge No Comment Pending outcome of hospitalization. Discharge Plan Home Transportation Arrangement Family can provide transport. Referrals Initiated [facility],Home Health, Other Additional Comment Unclear is patient would benefit from SNF? Current status is OBS and medical insurance needs to be verified . Does patient have Medicare? If patient plan is home with home health No: Possible resume with [facility] : Has signed face to face form been HH completed? Has Agency SNF been contacted Yes Comment Asked [facility] to evaluate. Patient reports being there within the last 2yrs under same health plan. Whiteboard Updated in Patient Room with Yes name and ext. # of [employer] Person Review Status In Process Next Review Type Continued Stay Review
[2021-09-26] MEDS: ACETAMINOPHEN 325 MG TABLET 650 MG PO (17:04)
[2021-09-26] MEDS: SUCRALFATE 1 GM TABLET PO (17:05)
--- NOTE | 2021-09-26 17:15 | PC.NURSE ---
Day shift note: Patient awake, alert, and oriented to self, date, place and situation. Remains on RA, sats 98%. Experiencing visual hallucinations intermittently and spatial unawareness. Confirmed with patient last etoh consumption, states 10 days ago. Remains normotensive, BG 90, and 102 mg/dl for dinner, Insulin held. Assessed by this RN and PT/OT, patient unable to safely get out of bed due to generalized weakness BLE > BUE. However, able to move frequently in bed and shift weight constantly while in bed, self and with assistance. IS teaching unable to performed due to inattention. Will reattempt. NO C/O chest pain or SOB. C/O lower back pain (states is chronic) Tylenol PO PRN as ordered. Required to transfer from rney to bed via slider board due to weakness to MRI. Malagon Cath in place, to gravity. NO SI this shift. NO contact from family. High fall risk precautions maintained, call light with reach.
[2021-09-26] MEDS: QUETIAPINE 25 MG TABLET PO (20:07)
[2021-09-26] MEDS: TRAZODONE 50 MG TABLET PO (20:07)
[2021-09-26] MEDS: ATORVASTATIN 20 MG TABLET 40 MG PO (20:07)
[2021-09-26] MEDS: SERTRALINE 50 MG TABLET PO (20:08)
[2021-09-26] MEDS: MELATONIN 3 MG TABLET 6 MG PO (20:08)
[2021-09-26] MEDS: SODIUM CHLORIDE 0.9% FLUSH 10 ML IV (20:10)
[2021-09-26] MEDS: SODIUM CHLORIDE 0.9% 1,000 ML 1000 ML IV (22:00)
[2021-09-27] MEDS: LORazepam 2 MG/ML INJ 1 MG IV (02:19)
[2021-09-27] MEDS: SODIUM CHLORIDE 0.9% FLUSH 10 ML IV (02:19)
[2021-09-27 02:26] VITALS: BP 160/79; PULSE 62; RESP 20; TEMP 36.6; O2SAT 98
--- NOTE | 2021-09-27 06:54 | PC.NURSE ---
Pt heavily hallucinating and restless at start of shift. Unable to keep tangent line of thought. Alert to self and birthday only. Confused and impulsive, attempting to leave bed. This RN established decent rapport w/ patient but was unable to redirect patient for more than a few seconds. Night meds given including trazodone, risperidone, and seroquel. No effect on pt. Pt hypotensive, 80-100/50-60 depending on arm, asymptomatic, low urine output and poor oral intake, provider made aware, held night metoprolol, ordered 1L NS bolus. Pt's BP on reassessment post-bolus 130s/60s. Pt continued to hallucinate and become more agitated and impulsive until approx 0200 when ativan given after BP reached appropriate level. Pt immediately fell asleep. At approx 0630 lab attempted to obtain blood, pt partially woke up and attempted to hit staff. This RN requested lab try again at a later time. Pt fell asleep again.
[2021-09-27 09:00] VITALS: O2SAT 98
--- NOTE | 2021-09-27 10:40 | PT-IP ANOTE ---
JUNIOR SOFTWARE ENGINEER spoke with nursing before entering room, was given at 0219 to assist agitation has been sleeping otherwise. JUNIOR SOFTWARE ENGINEER unable to arouse pt for reassessment of mobility progress. JUNIOR SOFTWARE ENGINEER discussed with nursing and care mgt will attempt again in pm.
--- NOTE | 2021-09-27 11:32 | PC.NURSE ---
Addendum entered by Samantha Swartz R.N. 09/27/21 18:43: Patient continues to sleep soundly for most of the shift. He woke up enough to eat some pudding and drink some apple juice for his low sugars. is aware that patient has been sleeping. We have attempted to wake him up three times today, one time being to work with physical therapy he cursed at swift tender x1, and just states that he wants to go back to bed. Addendum entered by Samantha Swartz R.N. 09/27/21 17:47: Patient continues to sleep.Blood sugar at 1630 93, no insulin needed. Patient is resting comfortably. Addendum entered by Samantha Swartz R.N. 09/27/21 13:59: Patient awake as his blood sugar was 46, given a few sips of apple juice and up to 53. This RN gave patient some pudding and his blood sugar is now up to 93, he is back sleeping. Refused all medications when asked if this RN could given them to him. Patient is snoaring and comfortable. Original Note: Patient had an intense night last night with hallucinations and trying to get out of bed. Given iv Ativan around 0200 and patient has been sleeping soundly. Morning blood sugar 90. We will wake patient up and try to give him is medication around lunch time and get another blood sugar. OT is going to try and work with patient now and swift tender to help.
--- NOTE | 2021-09-27 11:50 | OT.IPNOTE ---
Pt having low BS 46 at this time, therefore hold OT eval today.
[2021-09-27 12:00] VITALS: BP 161/78; PULSE 62; RESP 14; TEMP 36.4; O2SAT 97
--- NOTE | 2021-09-27 13:01 | PT-IP ANOTE ---
Ativan was given to assist agitation has been sleeping otherwise. HYDROELECTRIC PLANT ELECTRICAL ENGINEER unable to arouse pt for reassessment of mobility progress. HYDROELECTRIC PLANT ELECTRICAL ENGINEER discussed with nursing and care mgt will attempt again tomorrow.
[2021-09-27 15:12] LABS: Add Manual Diff / Slide Review NO; Basophils Absolute Auto 0 /uL (0-100); Basophils Percent Auto 0.3 % (0-2); Eosinophils Absolute Auto 200 /uL (0-450); Eosinophils Percent Auto 2.7 % (2-4); Hematocrit 38.6 % (41-53); Hemoglobin 13.3 g/dL (13.5-17.5); Lymphocytes Absolute Auto 1400 /uL (1100-4500); Lymphocytes Percent Auto 16.7 % (25-40); Mean Corpuscular HGB Conc 34.4 % (30-36); Monocytes Absolute Auto 600 /uL (0-900); Monocytes Percent Auto 6.9 % (3-14); Neutrophils Absolute Auto 6200 /uL (1500-7000); Neutrophils Percent Auto 73.4 % (50-75); Platelet Count 196 X10^3/uL (150-400); Red Blood Cell Count 4.15 X10^6/uL (4.5-5.9); Red Cell Distribution Width 14.6 % (11.6-14.8); White Blood Cell Count 8.5 X10^3/uL (4.5-11.0)
[2021-09-27 15:42] LABS: Albumin 3.8 g/dL (3.5-5.0); BUN Creatinine Ratio 22.8 (6-22); Blood Urea Nitrogen 23 mg/dL (9-20); Calcium 8.8 mg/dL (8.4-10.2); Carbon Dioxide 26 mmol/L (22-32); Chloride 103 mmol/L (98-107); Estimated Glomerular Filt Rate > 60.0 mL/min (>60); Glucose 104 mg/dL (80-110); HEMOLYSIS < 15 (0-50); Phosphorous 4.5 mg/dL (2.3-3.7); Potassium 4.4 mmol/L (3.4-5.1); Sodium 137 mmol/L (137-145)
--- NOTE | 2021-09-27 16:48 | P.PN_ITS ---
Subjective Subjective Interval history: ?THIS IS A 66-YEAR-OLD MALE WITH SOME UNDERLYING PSYCHIATRIC ISSUES WHICH INCLUDE ANXIETY ? PATIENT WAS ADMITTED TO THE HOSPITAL DUE TO CHANGE IN MENTATION ?WORKUP HAS BEEN NEGATIVE APART FROM CANNABIS IN HIS? URINE DRUG SCREEN ? TODAY PATIENT GIVEN ATIVAN TODAY PER NURSING DUE TO INCREASED ANXIETY PATIENT DID NOT HAVE ANY SIGNIFICANT COMPLAINTS ? DENIES ANY HEADACHES OR CHANGES IN VISION ?REPORTED SEVERAL FALLS? IN THE LAST FEW WEEKS. ? NO NAUSEA OR VOMITING.? NO CHEST PAIN.? NO CHEST PALPITATIONS Exam Vital Signs (past 8 hours): - 09/27/21 09:00 09/27/21 12:00 Temperature 97.5 F L Pulse Rate 62 Respiratory Rate 14 Blood Pressure 161/78 H Pulse Oximetry 98 97 Oxygen Delivery Method Room Air Oxygen Flow Rate 0 Narrative Exam Narrative: NO ACUTE DISTRESS.? PATIENT IS ALERT ORIENTED X3.? APPEARS MUCH OLDER THAN STATED AGE.? OBESE VITAL SIGNS STABLE HEAD ATRAUMATIC NORMOCEPHALIC NECK : SUPPLE WITHOUT ADENOPATHY NO CAROTID BRUITS EYE:? EOMI, PERRLA, NORMAL CONJUNCTIVA; NO JAUNDICE CHEST:? REGULAR RATE.? ? NO RUBS.? PMI IS NON DISPLACED.? NO MURMURS; NORMAL S1- S2 PULMONARY:? DECREASED BS OVER THE BASES.? MILD BIBASILAR CRACKLES NOTED; NO INCREASED DULLNESS TO PERCUSSION ABDOMEN:? SOFT.? NONTENDER.? NONDISTENDED.? BOWEL SOUNDS ARE PRESENT IN ALL 4 QUADRANTS.? NO MASS. EXTREMITIES: NO EDEMA..? NO CYANOSIS CLUBBING NOTED. NEURO:? CRANIAL NERVES 2-12 GROSSLY INTACT. NO FOCAL NEUROLOGICAL DEFICIT NOTED. SENSATION INTACT TO ALL EXTREMITIES MSK:? NORMAL RANGE OF MOTION FOR AGE.? NO JOINT EFFUSION. PULL MUSCULATURE FOR AGE SKIN:? NORMAL FOR ETHNICITY; NO ECCHYMOSIS.? NO LESION. ? GOOD? TURGOR.; NO RASHES :? NORMAL EXTERNAL GENITALIA. NOWAK CATHETER IN PLACE.? YELLOWISH URINE APPRECIATED. PSYCH :? APPROPRIATE MOOD AND AFFECT.? ALERT AWAKE ORIENTED X3 Objective Labs Result Diagrams: 09/27/21 14:53 09/27/21 14:53 Labs: Laboratory Results - last 24 hr 09/27/21 09/27/21 14:53 14:53 WBC 8.5 RBC 4.15 L Hgb 13.3 L Hct 38.6 L MCV 93.0 MCH 32.0 MCHC 34.4 RDW 14.6 Plt Count 196 Neut % (Auto) 73.4 Lymph % (Auto) 16.7 L [place] % (Auto) 6.9 Eos % (Auto) 2.7 Baso % (Auto) 0.3 Neut # (Auto) 6200 Lymph # (Auto) 1400 [place] # (Auto) 600 Eos # (Auto) 200 Baso # (Auto) 0 Sodium 137 Potassium 4.4 Chloride 103 Carbon Dioxide 26 BUN 23 H Creatinine 1.01 Estimated GFR > 60.0 BUN/Creatinine Ratio 22.8 H Glucose 104 Calcium 8.8 Phosphorus 4.5 H Albumin 3.8 PFSH Medical History Bilateral otitis externa Cellulitis Chicken pox (1956) Chickenpox (1956) Chronic cough COPD (chronic obstructive pulmonary disease) Coronary artery disease (2006) Depression (2008) Diabetes (1994) Eczema Foot pain GERD (gastroesophageal reflux disease) (2012) Gout Hearing reduced Hip pain History of recurrent TIAs Hyperlipidemia Hypertension Hypothyroidism Kidney disease (2009) Measles (1955) Measles (1955) Mental health assessment declined Mumps (1958) Mumps (1958) Neuropathy Obstructive sleep apnea Otitis externa Screening for malignant neoplasm of colon Shoulder pain Sleep apnea Status post myocardial infarction Steatosis Strain of muscle of right groin region (03/30/18) Type 2 diabetes mellitus Well adult exam Surgical History Anesthesia History of heart artery stent (2006) History of heart artery stent (2010) Hx of shoulder surgery (2005) Family History Brother Age: 67 Diabetes mellitus Hyperlipidemia Mother Heart disease Hypertension Hyperlipidemia Diabetes mellitus Grandmother Diabetes mellitus Brother No problems noted. Sister Breast cancer Social History household members: none Smoking Status: Current every day smoker Tobacco: How many years used: 45 alcohol intake: current Assessment & Plan Assessment & Plan narrative: ?PROBLEM LIST ?ACUTE ENCEPHALOPATHY.? METABOLIC CAUSES COULD NOT BE FOUND.? COULD HAVE BEEN DUE TO CANNABIS USE ?OBESITY.? COUNSELING GIVEN ?ANEMIA.? SUSPECT CHRONIC DISEASE ?ANXIETY AND? DEPRESSION ?POSSIBLE DEMENTIA.? EARLY ONSET LIKELY ?INSULIN-DEPENDENT DIABETES ?HYPERLIPIDEMIA PER HISTORY ?HYPERTENSION PER HISTORY ?BPH PER HISTORY.? NOW WITH SOME URINARY RETENTION. ? TOBACCO ABUSE/NICOTINE ADDICTION.? EXTENSIVE COUNSELING GIVEN ?PHYSICAL DECONDITIONING /DEBILITY.? REFERRED TO PT AND OT PLAN 09/27 PATIENT MORE SO MONITOR THAT DUE TO ATIVAN GIVEN WILL DISCONTINUE ATIVAN FOR NOW CONSIDER HALDOL ONLY FOR AGITATION DUE TO POSSIBLE UNDERLYING DEMENTIA AND DUE TO PATIENT'S AGE WELL CONTINUE TO FOLLOW LAB CLOSELY PSYCHIATRY TEAM NOT AVAILABLE TO HELP IN MANAGEMENT FOR NOW ASPIRATION PRECAUTION AND FALL PRECAUTION TO MAINTAIN AT ALL TIMES ADDITIONAL MANAGEMENT PER CLINICAL COURSE 09/26 ?WILL MAKE SOME CHANGES TO? HIS MEDICATION REGIMEN INCLUDING THE SEEING IS RAMÓN ?STARTED ON TRAZODONE AND ZOLOFT ? ?WILL ADD SEROQUEL AND RISPERDAL DUE TO SUSPICION OF DEMENTIA? WITH POSSIBLE ASSOCIATED PSYCHOSIS ?CONSULT PSYCHIATRY TEAM FOR RECOMMENDATIONS ?REFERRED TO PT AND OT FOR EVALUATION AND TREATMENT ?MET AND FOR PRECAUTION ALL TIME ?STRICT BLOOD PRESSURE AND BLOOD SUGAR CONTROL ? KEEP NOWAK CATHETER? IN PLACE FOR NOW ?WILL CONSULT UROLOGY TEAM IF INDICATED ?MOBILIZE PATIENT MUCH TOLERATED ?SPOKE TO CASE MANAGEMENT IN REGARDING ? PLAN OF CARE GOING ONWARD ?POSSIBLE DISCHARGE TO SNF FACILITY IF INDICATED VERSUS HOME WITH HOME HEALTH Time Spent With Patient Critical Care time: I spent a total of [] minutes of critical care time on this patient's care today; this time is exclusive of procedural time.
[2021-09-27 17:43] VITALS: BP 145/67; PULSE 64; RESP 18; TEMP 36.8; O2SAT 95
[2021-09-27 19:00] VITALS: O2SAT 96
[2021-09-27] MEDS: risperiDONE 0.25 MG TABLET 0.5 MG PO (20:43)
[2021-09-27] MEDS: SERTRALINE 50 MG TABLET PO (20:43)
[2021-09-27] MEDS: TRAZODONE 50 MG TABLET 100 MG PO (20:43)
[2021-09-27] MEDS: QUETIAPINE 25 MG TABLET PO (20:44)
[2021-09-27] MEDS: MELATONIN 3 MG TABLET 6 MG PO (21:11)
--- NOTE | 2021-09-27 21:23 | PC.NURSE ---
Patient difficult to rouse. Declining most care and medications, but agreed to take some to medications to help me sleep and get better. Patient is alert to self and is calm and cooperative for the time being.
[2021-09-28 01:00] VITALS: BP 128/69; PULSE 64; RESP 18; TEMP 36.7; O2SAT 92
[2021-09-28 06:26] LABS: Add Manual Diff / Slide Review NO; Basophils Absolute Auto 0 /uL (0-100); Basophils Percent Auto 0.1 % (0-2); Eosinophils Absolute Auto 200 /uL (0-450); Eosinophils Percent Auto 2.1 % (2-4); Hematocrit 39.9 % (41-53); Hemoglobin 13.5 g/dL (13.5-17.5); Lymphocytes Absolute Auto 1600 /uL (1100-4500); Lymphocytes Percent Auto 17.8 % (25-40); Mean Corpuscular HGB Conc 33.9 % (30-36); Mean Corpuscular Hemoglobin 31.6 PG (26-34); Mean Corpuscular Volume 93.2 fL (80-100); Monocytes Absolute Auto 600 /uL (0-900); Monocytes Percent Auto 7.1 % (3-14); Neutrophils Absolute Auto 6400 /uL (1500-7000); Neutrophils Percent Auto 72.9 % (50-75); Platelet Count 220 X10^3/uL (150-400); Red Blood Cell Count 4.28 X10^6/uL (4.5-5.9); Red Cell Distribution Width 14.5 % (11.6-14.8); White Blood Cell Count 8.8 X10^3/uL (4.5-11.0)
--- NOTE | 2021-09-28 08:11 | CM.DPNOTE ---
DCP Note Yesterday, 09.27.21, hospitalist requested Psychiatry to consult which apparently was not available. In addition, patient received Ativan early AM 09.27.21 d/t agitation and was sleeping most of the day yesterday. Patient could not engage w/therapies yesterday According to review of notes, CM team has discussed likelihood that patient will be DC home and it appears patient may have an underlying dementia that has been exacerbated...which will need to be addressed by outpatient provider. 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
[2021-09-28 08:53] VITALS: BP 123/63; PULSE 67; RESP 14; TEMP 36.1; O2SAT 94
--- NOTE | 2021-09-28 09:45 | PC.NURSE ---
Patient is doing better today. He is afebrile and states that the pain to his l.weston is better. Alert and oriented x2. Not restless and keeping lines in. in room and visiting. Patient ate well at breakfast.
[2021-09-28 10:00] VITALS: O2SAT 95
--- NOTE | 2021-09-28 10:05 | PT.IPTN ---
Physical Therapy Treatment Note M2 PT-IP Current Condition Start: 09/26/21 08:19 Freq: Status: Active Protocol: Document 09/26/21 14:00 MB (Rec: 09/26/21 14:55 MB [id number]) Physical Therapy Current Condition Current Condition Evaluation Date 09/26/21 Treatment Diagnosis Hallucinations, weakness, falls Onset Date Appears acute on chronic M3 PT-IP Subjective Start: 09/26/21 08:19 Freq: Status: Active Protocol: Document 09/28/21 09:38 KS (Rec: 09/28/21 12:48 KS [id number]) Subjective Physical Therapy Visit Type Type Treatment Note Visit Start Time 09:38 Visit Stop Time 10:05 Total Visit Minutes 27 Notes Co-treat w/ OT. Number of MANAGER PATHOLOGY Visits 1 M4 PT-IP Mobility and Gait Start: 09/26/21 08:19 Freq: Status: Active Protocol: Document 09/28/21 09:38 KS (Rec: 09/28/21 12:48 KS [id number]) PT-Bed Mobility Assessment Supine to Sit Supine to Sit Minimal Assistance,1 Person Assistance,Head of Bed Elevated Scooting Scooting to Edge of Bed Contact Guard Assistance PT-Transfer Assessment Sit to and From Stand Sit to and from Stand Moderate Assistance,1 Person Assistance,Use of Upper Extremities Equipment Transfer Assistive Device Gait Belt,Front Wheeled Walker Transfers Transfer Destination Chair Transfer Technique Ambulated w/ FWW Transfer Ability Level of Assist Minimal Assistance,Moderate Assistance,1 Person Assistance ,Use of Upper Extremities Comments Mobility Comments Pt in bed and slightly confused upon arrival from therapy. Min A and cues for sup<>sit w/ HOB elevated and use of bedrails. CGA for scooting to EOB. Mod A and cues for sit<>Stand w/ FWW. Pt then ambulated ~5 ft to chair w/ FWW and Min A for fww management and cues. Pt stand< >sit Min A and cues for hand placement. Pt stood again Mod A to change briefs, had LOB posterior needing Mod A to recover and refused to ambulate further following brief change. Performed ~[address] but then refused further PT. Pt unable to recall or clearly answer about stairs and equipment at home but stated he has fallen 4 times in the last month. Pt left in chair w / OT in room. Gait Assessment Gait Gait Assistance Required: Contact Guard Assist,Minimum Assistance,1 Person Assist Distance (Feet) 5 Assistive Devices Assistive Device Gait Belt,Front Wheeled Walker Gait Deviations General Gait Pattern Decreased Stride Length, Decreased Feet Clearance Factors Limiting Gait Function Factors Limiting Gait Function Decreased Activity Tolerance, Decreased Strength, Incoordination,Poor Balance, Poor Safety Awareness Comments Gait Comments Please refer to mobility section for details. Stair Climbing Assessment Comments Stair Climbing Comments Not assessed. Pt states there are stairs to enter home but unsure how many stairs he has at home or if there is a railing. If going home, he will need to practice. PT-Balance Assessment Sitting Balance and Reactions Static Sitting Balance Ability Fair Dynamic Sitting Balance Ability Fair Standing Balance and Reactions Static Standing Balance Ability Poor Dynamic Standing Balance Ability Poor M5 PT-IP Objective Assessments Start: 09/26/21 08:19 Freq: Status: Active Protocol: Document 09/26/21 14:00 MB (Rec: 09/26/21 14:55 MB [id number]) Orientation Orientation/Cognition Level of Alertness Confusional State Orientation Name,Birthday,Place Safety Awareness Decreased Safety Awareness Memory Description Short Term Impaired,Chcf Impaired Comments Pt is A&O to [facility] but he is not alert to date, reason why he is here , month and year. He can get month and year [facility]. Gross Range of Motion Upper Extremity ROM Assessment Within Functional Limits Lower Extremity ROM Assessment Within Functional Limits Strength Comments Strength Comments Pt cannot follow MMT cues Coordination Assessment Assessment Coordination Comments Pt's LE movements are mildly ataxic with bed mobility Muscle Tone Comments Muscle Tone Comments Increased tone/spasm right thigh/vastus lateralis M6 PT-IP Treatment Start: 09/26/21 08:19 Freq: Status: Active Protocol: Document 09/28/21 12:48 KS (Rec: 09/28/21 12:48 KS [id number]) Physical Therapy Treatment Education Education Provided Safety M7 PT-IP Assessment and Plan Start: 09/26/21 08:19 Freq: Status: Active Protocol: Document 09/28/21 09:38 KS (Rec: 09/28/21 12:48 KS [id number]) PT Summary Assessment and Plan Potential Rehabilitation Potential Fair Status of Condition at Evaluation Unstable Summary Impairments Pain,Strength,Balance, Coordination,Cognition,Bed Mobility,Transfers,Gait, Activity Tolerance Assessment Summary Pt continues to require Min A for bed mobility, Mod A for transfers w/ FWW and unable to tolerate much ambulation. He requires frequent cues and redirection to complete tasks. Was unable to [place] of doff own briefs, had positive posterior LOB when standing w/ FWW and is unsafe to return home due to high fall risk and decreased functional mobility - he will require SNF to improve if unable needs minimum of 24/7 assist. Goals Bed Mobility Goal Independent Transfer Goal Contact Guard Assistance Gait Goal Contact Guard Assistance Gait Distance 25 Days to Meet Goals 5 Frequency of Treatment Frequency Of Treatment Once a Day Treatment Plan Physical Therapy Treatment Plan Bed Mobility Training,Transfer Training,Gait Training, Therapeutic Exercise,Balance Retraining,Discharge Planning, Hot or Cold Pack,Neuromuscular Re-ed,Coordination Retraining ,Manual Therapy Precautions Other Precautions Pt appears to have acute delirium and is actively hallucinating, fall risk Recommendations To Nursing Amount of Assist Needed Total Assistance Discharge Recommendations PT Discharge Recommendations Home with 24/7 Assist Available,SNF Rehab Transportation Needs at Discharge Wheelchair/Cabulance
--- NOTE | 2021-09-28 10:13 | OT.IP.EVAL ---
Past Medical History (Last Reviewed 09/26/21 @ 05:44 by Jaden Adams MD) Bilateral otitis externa Cellulitis Chicken pox (1956) Chickenpox (1956) Chronic cough COPD (chronic obstructive pulmonary disease) Coronary artery disease (2006) Depression (2008) Diabetes (1994) Eczema Foot pain GERD (gastroesophageal reflux disease) (2012) Gout Hearing reduced Hip pain History of heart artery stent (2006) History of heart artery stent (2010) History of recurrent TIAs Hx of shoulder surgery (2005) Hyperlipidemia Hypertension Hypothyroidism Kidney disease (2009) Measles (1955) Measles (1955) Mental health assessment declined Mumps (1958) Mumps (1958) Neuropathy Obstructive sleep apnea Otitis externa Screening for malignant neoplasm of colon Shoulder pain Sleep apnea Status post myocardial infarction Steatosis Strain of muscle of right groin region (03/30/18) Type 2 diabetes mellitus Well adult exam Surgical History (Last Reviewed 09/26/21 @ 05:44 by Jaden Adams MD) Anesthesia History of heart artery stent (2006) History of heart artery stent (2010) Hx of shoulder surgery (2005) Occupational Therapy Inpatient Evaluation/Re-Eval M1 PT/OT-IP Prior Functional Status Start: 09/26/21 08:19 Freq: Status: Active Protocol: Document 09/28/21 10:18 [facility] (Rec: 09/28/21 10:35 [facility] [id number]) Medical Review Prior Functional Status Medical History Reviewed Yes Communication Communication, mobility and gait and home living situation is not clear and also not good. Per chart, pt lived alone, had past history of substance and mental health concerns, multiple falls and hallucinations. During assessment, he presents with B knee ecchymosis and multiple abrasions and scratches on legs. He does mention that his and that he is actively having hallucinations of geishas during assessment. Mobility and Gait Pt states uses a motorized wc or fww to get around and mainly just stays in his recliner the whole day. Activities of Daily Living and IADL's Pt states lately havig more difficulty to do his ADl needs due to weakness. Social History Household Members none Living Arrangements Apartment/Condo Number of Stairs To Enter/Railing? Pt states not able to clearly states how many steps to get into his place or if he had any railings. Home Environment Standard Height Toilet Home Equipment Front Wheel Walker,Four Wheel Walker,Straight Cane,Power Wheelchair/Scooter,Tub Transfer Bench,Hand Held Shower, tub/shower Additional Social History Comment Pt still groggy from medications therefore no sure if his information is accurate . M2 OT-IP Current Condition Start: 09/28/21 10:16 Freq: Status: Active Protocol: Document 09/28/21 10:18 [facility] (Rec: 09/28/21 10:35 [facility] [id number]) Occupational Therapy Current Condition Current Condition Evaluation Date 09/28/21 Treatment Diagnosis Falls, decreased mobility. M3 OT- IP Subjective and Pain Start: 09/28/21 10:16 Freq: Status: Active Protocol: Document 09/28/21 10:18 [facility] (Rec: 09/28/21 10:35 [facility] [id number]) OT- Subjective Occupational Therapy Visit Type Type Initial Evaluation Visit Start Time 09:40 Visit Stop Time 10:13 Total Visit Minutes 33 Notes Pt seen with MOBILE DEVELOPMENT MANAGER due to decreased activity tolerance another person for safety. Occupational Therapy Visit Comments Patient Comments Pt agreed to get up. Patient/Caregiver Goals Pt not sure what he wants to do. OT Pain Assessment Pain When Pain Assessed At Rest Pain Present Pain Present Denied Pain M4 OT- IP ADL's Start: 09/28/21 10:16 Freq: Status: Active Protocol: Document 09/28/21 10:18 [facility] (Rec: 09/28/21 10:35 [facility] [id number]) OT [id number]-Nkwonfk General Evaluation Self-Feeding Ability Standby Assistance,Minimal Assistance Areas Needing Assistance Cutting Food,Opening Containers Comments OT Self-Feeding Comments Pt has tremors in his hands and needing assist to open and cut up items. Pt states prior has tremors. OT ADL-Grooming Comments OT Grooming Comments Pt able to wash his face after set-up. OT ADL-Oral Care Comments Oral Care Comments NOt performed. OT ADL-Dressing General Eval Lower Body Dressing Ability Maximum Assistance Comments OT Dressing Comments Pt assist with socks and assist to haleigh brief over his feet and pt able to pull up over his his with CGA for balance. OT ADL-Toileting General Evaluation Toileting Ability Total Assistance Comments OT Toileting Comments [place] in place. OT ADL-Bathing Comments OT Bathing Comments Not performed. M5 OT- IP IADL's Start: 09/28/21 10:16 Freq: Status: Active Protocol: Document 09/28/21 10:18 [facility] (Rec: 09/28/21 10:35 [facility] [id number]) OT-Instrumental Activities of Daily Living Home Safety Awareness Home Safety Comments Pt needing increased time to figure out home safety situations. At this time as pt is very groggy and unsteady on his feet that it would be best for someone to assist pt for all his needs. M6 OT- IP Functional Cognition Start: 09/28/21 10:16 Freq: Status: Active Protocol: Document 09/28/21 10:18 [facility] (Rec: 09/28/21 10:35 [facility] [id number]) Cognitive Factors Limiting Selfcare Function Cognitive Ability Level of Alertness Confusional State,Drowsy Patient Orientation Name,Year,Place,Situation Attention Span Ability Capable of Focused Attention, Unable to Sustain Attention Ability to Follow Commands Able to Follow One Step Commands with Increased Time, Able to Follow One Step Commands with Repetition Cognitive Comments Cognitive Assessment Comments Pt very groggy from medications and having difficulty to stay awake and follow commands. OT- Vision and Hearing OT- Hearing Assessment OT- Hearing Assessment WFL OT- Vision Assessment Visual Acuity Glasses For Reading M7 OT- IP Mobility and Balance Start: 09/28/21 10:16 Freq: Status: Active Protocol: Document 09/28/21 10:18 [facility] (Rec: 09/28/21 10:35 [facility] [id number]) OT- Bed Mobility Assessment Supine to Sit Supine to Sit Assist Minimal Assistance,1 Person Assistance OT-Transfer Assessment Sit to and From Stand Sit to and from Stand Minimal Assistance,Moderate Assistance,1 Person Assistance Transfers Transfer Ability Moderate Assistance,1 Person Assistance Technique Transfer Destination Bed,Chair Transfer Technique Stand Step Pivot Devices Transfer Assistive Devices Gait Belt,Front Wheeled Walker Comments Mobility Comments Pt very unsteady on his feet and tends to lean on his heels when up and needing assist for balance and to help guide the FWW. Per pt has had 4 falls in the past month. OT- Gait Assessment Comments Gait Ability Comments Just trasnfer at this time. OT- Balance Assessment Sitting Balance and Reactions Static Sitting Balance Ability Fair Dynamic Sitting Balance Ability Poor Standing Balance and Reactions Static Standing Balance Ability Poor M8 OT- IP Objective Assessments Start: 09/28/21 10:16 Freq: Status: Active Protocol: Document 09/28/21 10:18 [facility] (Rec: 09/28/21 10:35 [facility] [id number]) OT Strength Comments Strength Comments Pt at least 3-/5 during mobility needs not able to formally assess. OT- Coordination Assessment Comments Coordination Comments Decreased due to tremors and needing assist to cut his food and open items on his try at this time. OT-Muscle Tone Assessment Comments Muscle Tone Comments Pt having tremors in in his hands. M9 OT- IP Assessment and Plan Start: 09/28/21 10:16 Freq: Status: Active Protocol: Document 09/28/21 10:18 [facility] (Rec: 09/28/21 10:35 [facility] [id number]) OT Summary Assessment and Plan Potential Rehabilitation Potential Fair Analytic Complexity at Evaluation Low Summary OT Impairments Balance,Functional Cognition, Functional Mobility,Self- Feeding,Grooming,Dressing, Toileting,Bathing,Toilet Transfers,Shower Transfers, Activity Tolerance Progress Towards Goals Slow Progress due to Medical Issues,Slow Progress due to Activity Tolerance,Slow Progress due to Cognition Assessment Summary Pt here due to falls and main barriers are balance, groogy, and now needing assist for all Adl and mobility needs. Pt would benefit from skilled rehab versus home with 24/7 assist and home health at this time. Pt receives [facility] wheels and [facility]. Goals Grooming Goal Independent Dressing Goal Independent Toileting Goal Independent Bathing Goal Independent Toilet Transfer Goal Independent Shower Transfer Goal Independent Days to Meet Goals 20 Frequency of Treatment Frequency Of Treatment Once a Day Treatment Plan OT Treatment Plan ADL Training,Functional Cognition Training,Functional Mobility,Patient/Family Education,Discharge Planning Other Treatment Recommendations and Next shower Treatment Focus Discharge Recommendations OT Discharge Recommendations Home with 24/7 Assist Available,Home Health,SNF Rehab,Home vs SNF Transportation Needs at Discharge Private Vehicle,Wheelchair/ Cabulance
[2021-09-28] MEDS: lisinopriL 20 MG TABLET PO (10:19)
[2021-09-28] MEDS: TAMSULOSIN 0.4 MG CAPSULE 0.8 MG PO (10:19)
[2021-09-28] MEDS: buPROPion XL 150 MG TAB 300 MG PO (10:19)
[2021-09-28] MEDS: ISOSORBIDE MONONITRATE ER 30 MG TABLET 60 MG PO (10:20)
[2021-09-28] MEDS: FINASTERIDE 5 MG TABLET PO (10:20)
[2021-09-28] MEDS: FAMOTIDINE 20 MG TABLET PO ×2 (10:20→20:50)
[2021-09-28] MEDS: ENOXAPARIN 40 MG/0.4 ML SYRINGE SUBCUT (10:21)
[2021-09-28] MEDS: risperiDONE 0.25 MG TABLET 0.5 MG PO ×2 (10:23→20:50)
[2021-09-28] MEDS: SODIUM CHLORIDE 0.9% FLUSH 10 ML IV ×2 (10:23→20:52)
--- NOTE | 2021-09-28 10:57 | PC.NURSE ---
Addendum entered by Samantha Swartz R.N. 09/28/21 18:42: Patients blood pressure up after bolus to 99/50s Addendum entered by Samantha Swartz R.N. 09/28/21 16:23: Patients blood pressure down to 87/50s, patient up on the commode possible straining on the commode. Will recheck blood pressure in 15 minutes. He is in bed with his legs up. Original Note: Patient slept until around 0945, up with physical therapy and ate breakfast. He is on the commode at this time and trying to have a bowel movement. He is not hallucinating and knew some of his medications. He is a one person assist with the walker with transfers only. Alert and oriented x2, pleasant will all care.
--- NOTE | 2021-09-28 12:22 | P.PN_ITS ---
Subjective Subjective Interval history: ?THIS IS A 66-YEAR-OLD MALE WITH SOME UNDERLYING PSYCHIATRIC ISSUES WHICH INCLUDE ANXIETY AND POSSIBLE DEMENTIA ? PATIENT WAS ADMITTED TO THE HOSPITAL DUE TO CHANGE IN MENTATION READ WAS SUSPECTED TO BE POSSIBLE ACUTE PSYCHOSIS ?WORKUP HAS BEEN NEGATIVE APART FROM CANNABIS IN HIS? URINE DRUG SCREEN ? TODAY PATIENT FEELING MUCH BETTER DENIES SHORTNESS OF BREATH HE IS ALERT, AWAKE, ORIENTED X3 HEADACHES OR CHANGES IN VISION ?REPORTED SEVERAL FALLS? IN THE LAST FEW WEEKS. ? NO NAUSEA OR VOMITING.? NO CHEST PAIN.? NO CHEST PALPITATIONS Exam Vital Signs (past 8 hours): - 09/28/21 08:53 Temperature 96.9 F L Pulse Rate 67 Respiratory Rate 14 Blood Pressure 123/63 Pulse Oximetry 94 Oxygen Delivery Method Room Air Oxygen Flow Rate 0 Narrative Exam Narrative: NO ACUTE DISTRESS.? PATIENT IS ALERT ORIENTED X3.? APPEARS MUCH OLDER THAN STATED AGE.? OBESE VITAL SIGNS STABLE HEAD ATRAUMATIC NORMOCEPHALIC NECK : SUPPLE WITHOUT ADENOPATHY NO CAROTID BRUITS EYE:? EOMI, PERRLA, NORMAL CONJUNCTIVA; NO JAUNDICE CHEST:? REGULAR RATE.? ? NO RUBS.? PMI IS NON DISPLACED.? NO MURMURS; NORMAL S1- S2 PULMONARY:? DECREASED BS OVER THE BASES.? MILD BIBASILAR CRACKLES NOTED; NO INCREASED DULLNESS TO PERCUSSION ABDOMEN:? SOFT.? NONTENDER.? NONDISTENDED.? BOWEL SOUNDS ARE PRESENT IN ALL 4 QUADRANTS.? NO MASS. EXTREMITIES: NO EDEMA..? NO CYANOSIS CLUBBING NOTED. NEURO:? CRANIAL NERVES 2-12 GROSSLY INTACT. NO FOCAL NEUROLOGICAL DEFICIT NOTED. SENSATION INTACT TO ALL EXTREMITIES MSK:? NORMAL RANGE OF MOTION FOR AGE.? NO JOINT EFFUSION. PULL MUSCULATURE FOR AGE SKIN:? NORMAL FOR ETHNICITY; NO ECCHYMOSIS.? NO LESION. ? GOOD? TURGOR.; NO RASHES :? NORMAL EXTERNAL GENITALIA. NOWAK CATHETER IN PLACE.? YELLOWISH URINE APPRECIATED. PSYCH :? CALM AND COOPERATIVE.? ALERT AWAKE ORIENTED X3 Objective Labs Result Diagrams: 09/28/21 05:46 09/27/21 14:53 Labs: Laboratory Results - last 24 hr 09/27/21 09/27/21 09/28/21 14:53 14:53 05:46 WBC 8.5 8.8 RBC 4.15 L 4.28 L Hgb 13.3 L 13.5 Hct 38.6 L 39.9 L MCV 93.0 93.2 MCH 32.0 31.6 MCHC 34.4 33.9 RDW 14.6 14.5 Plt Count 196 220 Neut % (Auto) 73.4 72.9 Lymph % (Auto) 16.7 L 17.8 L [place] % (Auto) 6.9 7.1 Eos % (Auto) 2.7 2.1 Baso % (Auto) 0.3 0.1 Neut # (Auto) 6200 6400 Lymph # (Auto) 1400 1600 [place] # (Auto) 600 600 Eos # (Auto) 200 200 Baso # (Auto) 0 0 Sodium 137 Potassium 4.4 Chloride 103 Carbon Dioxide 26 BUN 23 H Creatinine 1.01 Estimated GFR > 60.0 BUN/Creatinine Ratio 22.8 H Glucose 104 Calcium 8.8 Phosphorus 4.5 H Albumin 3.8 PFSH Medical History Bilateral otitis externa Cellulitis Chicken pox (1956) Chickenpox (1956) Chronic cough COPD (chronic obstructive pulmonary disease) Coronary artery disease (2006) Depression (2008) Diabetes (1994) Eczema Foot pain GERD (gastroesophageal reflux disease) (2012) Gout Hearing reduced Hip pain History of recurrent TIAs Hyperlipidemia Hypertension Hypothyroidism Kidney disease (2009) Measles (1955) Measles (1955) Mental health assessment declined Mumps (1958) Mumps (1958) Neuropathy Obstructive sleep apnea Otitis externa Screening for malignant neoplasm of colon Shoulder pain Sleep apnea Status post myocardial infarction Steatosis Strain of muscle of right groin region (03/30/18) Type 2 diabetes mellitus Well adult exam Surgical History Anesthesia History of heart artery stent (2006) History of heart artery stent (2010) Hx of shoulder surgery (2005) Family History Brother Age: 67 Diabetes mellitus Hyperlipidemia Mother Heart disease Hypertension Hyperlipidemia Diabetes mellitus Grandmother Diabetes mellitus Brother No problems noted. Sister Breast cancer Social History household members: none Smoking Status: Current every day smoker Tobacco: How many years used: 45 alcohol intake: current Assessment & Plan Assessment & Plan narrative: PROBLEM LIST ?ACUTE METABOLIC ENCEPHALOPATHY.? RELATED TO CANNABIS USE. RESOLVING ?OBESITY.? COUNSELING GIVEN ?ANEMIA.? SUSPECT CHRONIC DISEASE ?ANXIETY AND? DEPRESSION. TO BE TREATED OUTPATIENT ?POSSIBLE DEMENTIA.? EARLY ONSET LIKELY. POSSIBLE ACUTE PSYCHOSIS WELL. 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 STABLE BLOOD SUGAR LEVEL ?HYPERLIPIDEMIA PER HISTORY ?HYPERTENSION PER HISTORY ?BPH PER HISTORY.? NOW WITH SOME URINARY RETENTION. ? TOBACCO ABUSE/NICOTINE ADDICTION.? EXTENSIVE COUNSELING GIVEN ?PHYSICAL DECONDITIONING /DEBILITY.? REFERRED TO PT AND OT PLAN PATIENT MENTATION HAS IMPROVED HE HAS A NOWAK CATHETER IN PLACE DUE TO URINARY RETENTION WILL KEEP IN PLACE FOR NOW PT AND OT TEAMS HAS BEEN FOLLOWING THE PATIENT AWAITING FORMAL RECOMMENDATIONS CONTINUE TO FOLLOW LAB CLOSELY MAINTAIN STRICT FALL PRECAUTIONS ASPIRATION PRECAUTIONS ALSO BE ORDERED CONTINUE TO MONITOR INPUT AND OUTPUT CLOSELY LABS ARE FAIRLY STABLE PATIENT TO BE OUT OF BED IN CHAIR WITH EACH MEAL [facility] CARE PER HOSPITAL PROTOCOL ADDITIONAL MANAGEMENT PER CLINICAL COURSE POSSIBLE DISCHARGE IN A 24-48 HOURS IF CLINICALLY STABLE Time Spent With Patient Critical Care time: I spent a total of [] minutes of critical care time on this patient's care today; this time is exclusive of procedural time.
[2021-09-28] MEDS: ACETAMINOPHEN 325 MG TABLET 650 MG PO (15:00)
[2021-09-28 16:50] VITALS: PULSE 89; RESP 14; TEMP 36.5; O2SAT 93
[2021-09-28] MEDS: SODIUM CHLORIDE 0.9% 250 ML IV (17:10)
[2021-09-28] MEDS: INSULIN LISPRO 100 UNIT/ML 3ML VIAL SUBCUT ×2 (17:11→20:47)
[2021-09-28] MEDS: SUCRALFATE 1 GM TABLET PO ×2 (17:18→20:49)
[2021-09-28 17:51] LABS: Albumin 3.3 g/dL (3.5-5.0); BUN Creatinine Ratio 27.3 (6-22); Blood Urea Nitrogen 36 mg/dL (9-20); Calcium 8.4 mg/dL (8.4-10.2); Carbon Dioxide 26 mmol/L (22-32); Chloride 98 mmol/L (98-107); Estimated Glomerular Filt Rate 53.9 mL/min (>60); Glucose 255 mg/dL (80-110); HEMOLYSIS 18 (0-50); Phosphorous 3.4 mg/dL (2.3-3.7); Potassium 4.9 mmol/L (3.4-5.1); Sodium 131 mmol/L (137-145)
[2021-09-28 19:00] VITALS: O2SAT 95
[2021-09-28] MEDS: INSULIN GLARGINE 100 UNIT/ML 3ML PEN 80 UNIT SUBCUT (20:46)
[2021-09-28] MEDS: SERTRALINE 50 MG TABLET PO (20:49)
[2021-09-28] MEDS: MELATONIN 3 MG TABLET 6 MG PO (20:50)
[2021-09-28] MEDS: QUETIAPINE 25 MG TABLET PO (20:50)
[2021-09-28] MEDS: ATORVASTATIN 20 MG TABLET 40 MG PO (20:51)
[2021-09-28] MEDS: TRAZODONE 50 MG TABLET 100 MG PO (20:51)
[2021-09-28 21:10] VITALS: BP 106/57; PULSE 65; RESP 15; TEMP 36.8; O2SAT 94
[2021-09-29] VITALS (7 sets, daily range): BP systolic 121–148; BP diastolic 51–71; PULSE 59–89; RESP 16–18; TEMP 36.2–36.8; O2SAT 93–96
[2021-09-29] MEDS: ACETAMINOPHEN 325 MG TABLET 650 MG PO ×2 (02:58→12:00)
[2021-09-29 05:19] LABS: Add Manual Diff / Slide Review NO; Basophils Absolute Auto 0 /uL (0-100); Basophils Percent Auto 0.2 % (0-2); Eosinophils Absolute Auto 200 /uL (0-450); Hematocrit 36.2 % (41-53); Hemoglobin 12.3 g/dL (13.5-17.5); Lymphocytes Absolute Auto 1500 /uL (1100-4500); Lymphocytes Percent Auto 17.5 % (25-40); Mean Corpuscular HGB Conc 34.1 % (30-36); Mean Corpuscular Hemoglobin 31.6 PG (26-34); Mean Corpuscular Volume 92.6 fL (80-100); Monocytes Absolute Auto 700 /uL (0-900); Monocytes Percent Auto 8.6 % (3-14); Neutrophils Absolute Auto 6100 /uL (1500-7000); Neutrophils Percent Auto 71.7 % (50-75); Platelet Count 204 X10^3/uL (150-400); Red Blood Cell Count 3.91 X10^6/uL (4.5-5.9); Red Cell Distribution Width 14.7 % (11.6-14.8); White Blood Cell Count 8.4 X10^3/uL (4.5-11.0)
[2021-09-29 06:04] LABS: Albumin 3.7 g/dL (3.5-5.0); BUN Creatinine Ratio 28.8 (6-22); Blood Urea Nitrogen 36 mg/dL (9-20); Calcium 8.8 mg/dL (8.4-10.2); Carbon Dioxide 28 mmol/L (22-32); Chloride 98 mmol/L (98-107); Estimated Glomerular Filt Rate 57.4 mL/min (>60); Glucose 195 mg/dL (80-110); HEMOLYSIS < 15 (0-50); Phosphorous 3.5 mg/dL (2.3-3.7); Potassium 4.3 mmol/L (3.4-5.1); Sodium 133 mmol/L (137-145)
[2021-09-29] MEDS: ENOXAPARIN 40 MG/0.4 ML SYRINGE SUBCUT (08:50)
[2021-09-29] MEDS: TAMSULOSIN 0.4 MG CAPSULE 0.8 MG PO (08:50)
[2021-09-29] MEDS: risperiDONE 0.25 MG TABLET 0.5 MG PO ×2 (08:50→20:25)
[2021-09-29] MEDS: SUCRALFATE 1 GM TABLET PO ×4 (08:51→20:25)
[2021-09-29] MEDS: polyethylene glycoL 3350 17 GM POWD.PACK PO ×2 (08:51→20:29)
[2021-09-29] MEDS: FAMOTIDINE 20 MG TABLET PO ×2 (08:51→20:25)
[2021-09-29] MEDS: FINASTERIDE 5 MG TABLET PO (08:51)
[2021-09-29] MEDS: buPROPion XL 150 MG TAB 300 MG PO (08:51)
[2021-09-29] MEDS: CLOPIDOGREL 75 MG TABLET PO (08:52)
[2021-09-29] MEDS: ISOSORBIDE MONONITRATE ER 30 MG TABLET 60 MG PO (08:52)
[2021-09-29] MEDS: lisinopriL 20 MG TABLET PO (08:52)
[2021-09-29] MEDS: INSULIN GLARGINE 100 UNIT/ML 3ML PEN 80 UNIT SUBCUT ×2 (09:01→22:38)
[2021-09-29] MEDS: INSULIN LISPRO 100 UNIT/ML 3ML VIAL SUBCUT ×4 (09:02→22:36)
[2021-09-29] MEDS: SODIUM CHLORIDE 0.9% FLUSH 10 ML IV ×2 (09:05→20:29)
[2021-09-29] MEDS: METOPROLOL IR 50 MG TABLET PO ×2 (09:10→20:24)
--- NOTE | 2021-09-29 11:50 | P.PN_ITS ---
Subjective Subjective Interval history: BRIEF HPI THIS IS A 66-YEAR-OLD MALE WITH SOME UNDERLYING PSYCHIATRIC ISSUES WHICH INCLUDE ANXIETY AND POSSIBLE DEMENTIA ? PATIENT WAS ADMITTED TO THE HOSPITAL DUE TO CHANGE IN MENTATION READ WAS SUSPECTED TO BE POSSIBLE ACUTE PSYCHOSIS ?WORKUP HAS BEEN NEGATIVE APART FROM CANNABIS IN HIS? URINE DRUG SCREEN WILL NEED DETENTION FACILITY PLACEMENT VERSUS HOME WITH 24 HOUR CARE HISTORY OF MULTIPLE FALLS RECENTLY ? TODAY ? NO SIGNIFICANT COMPLAINTS TODAY NO SHORTNESS OF BREATH DENYING ANY CHEST PAIN OR CHEST PRESSURE ?HE IS ALERT, AWAKE, ORIENTED X3 NO HEADACHES OR CHANGES IN VISION ? NO NAUSEA OR VOMITING.? NO CHEST PAIN.? NO CHEST PALPITATIONS Exam Vital Signs (past 8 hours): - 09/29/21 04:48 09/29/21 08:30 09/29/21 08:52 Temperature 97.9 F 97.7 F Pulse Rate 77 88 89 Respiratory Rate 16 16 Blood Pressure 126/71 148/62 H 148/62 H Pulse Oximetry 95 93 Oxygen Delivery Method Room Air Oxygen Flow Rate 0 Narrative Exam Narrative: NO ACUTE DISTRESS.? PATIENT IS ALERT ORIENTED X3.? APPEARS MUCH OLDER THAN STATED AGE.? OBESE VITAL SIGNS STABLE HEAD ATRAUMATIC NORMOCEPHALIC NECK : SUPPLE WITHOUT ADENOPATHY NO CAROTID BRUITS EYE:? EOMI, PERRLA, NORMAL CONJUNCTIVA; NO JAUNDICE CHEST:? REGULAR RATE.? ? NO RUBS.? PMI IS NON DISPLACED.? NO MURMURS; NORMAL S1- S2 PULMONARY:? DECREASED BS OVER THE BASES.? MILD BIBASILAR CRACKLES NOTED; NO INCREASED DULLNESS TO PERCUSSION ABDOMEN:? SOFT.? NONTENDER.? NONDISTENDED.? BOWEL SOUNDS ARE PRESENT IN ALL 4 QUADRANTS.? NO MASS. EXTREMITIES: NO EDEMA..? NO CYANOSIS CLUBBING NOTED. NEURO:? CRANIAL NERVES 2-12 GROSSLY INTACT. NO FOCAL NEUROLOGICAL DEFICIT NOTED. SENSATION INTACT TO ALL EXTREMITIES MSK:? NORMAL RANGE OF MOTION FOR AGE.? NO JOINT EFFUSION. POOR MUSCULATURE FOR AGE SKIN:? NORMAL FOR ETHNICITY; NO ECCHYMOSIS.? NO LESION. ? GOOD? TURGOR.; NO RASHES :? NORMAL EXTERNAL GENITALIA. NOWAK CATHETER IN PLACE.? YELLOWISH URINE APPRECIATED. PSYCH :?? CALM AND COOPERATIVE.? ALERT AWAKE ORIENTED X3 Objective Labs Result Diagrams: 09/29/21 04:35 09/29/21 04:26 Labs: Laboratory Results - last 24 hr 09/28/21 09/29/21 09/29/21 17:05 04:26 04:35 WBC 8.4 RBC 3.91 L Hgb 12.3 L Hct 36.2 L MCV 92.6 MCH 31.6 MCHC 34.1 RDW 14.7 Plt Count 204 Neut % (Auto) 71.7 Lymph % (Auto) 17.5 L [place] % (Auto) 8.6 Eos % (Auto) 2.0 Baso % (Auto) 0.2 Neut # (Auto) 6100 Lymph # (Auto) 1500 [place] # (Auto) 700 Eos # (Auto) 200 Baso # (Auto) 0 Sodium 131 L 133 L Potassium 4.9 4.3 Chloride 98 98 Carbon Dioxide 26 28 BUN 36 H 36 H Creatinine 1.32 H 1.25 Estimated GFR 53.9 L 57.4 L BUN/Creatinine Ratio 27.3 H 28.8 H Glucose 255 H D 195 H Calcium 8.4 8.8 Phosphorus 3.4 D 3.5 Albumin 3.3 L 3.7 PFSH Medical History Bilateral otitis externa Cellulitis Chicken pox (1956) Chickenpox (1956) Chronic cough COPD (chronic obstructive pulmonary disease) Coronary artery disease (2006) Depression (2008) Diabetes (1994) Eczema Foot pain GERD (gastroesophageal reflux disease) (2012) Gout Hearing reduced Hip pain History of recurrent TIAs Hyperlipidemia Hypertension Hypothyroidism Kidney disease (2009) Measles (1955) Measles (1955) Mental health assessment declined Mumps (1958) Mumps (1958) Neuropathy Obstructive sleep apnea Otitis externa Screening for malignant neoplasm of colon Shoulder pain Sleep apnea Status post myocardial infarction Steatosis Strain of muscle of right groin region (03/30/18) Type 2 diabetes mellitus Well adult exam Surgical History Anesthesia History of heart artery stent (2006) History of heart artery stent (2010) Hx of shoulder surgery (2005) Family History Brother Age: 67 Diabetes mellitus Hyperlipidemia Mother Heart disease Hypertension Hyperlipidemia Diabetes mellitus Grandmother Diabetes mellitus Brother No problems noted. Sister Breast cancer Social History household members: none Smoking Status: Current every day smoker Tobacco: How many years used: 45 alcohol intake: current Assessment & Plan Assessment & Plan narrative: PROBLEM LIST ?ACUTE? METABOLIC ENCEPHALOPATHY.? ? POSSIBLY RELATED TO CANNABIS USE.? RESOLVING ?OBESITY.? LIFESTYLE CHANGES COUNSELING GIVEN ?ANEMIA.? SUSPECT CHRONIC DISEASE. NO ACUTE TREATMENT TO GET IT ?ANXIETY AND? DEPRESSION.? TO BE TREATED OUTPATIENT ?POSSIBLE DEMENTIA.? EARLY ONSET LIKELY.? POSSIBLE ACUTE PSYCHOSIS WELL.? IMPROVING? MENTATION ?INSULIN-DEPENDENT DIABETES.? STABLE BLOOD SUGAR LEVEL ?HYPERLIPIDEMIA PER HISTORY ?HYPERTENSION PER HISTORY ?BPH PER HISTORY.? NOW WITH SOME URINARY RETENTION. ? TOBACCO ABUSE/NICOTINE ADDICTION.? EXTENSIVE COUNSELING GIVEN ?PHYSICAL DECONDITIONING /DEBILITY.? REFERRED TO PT AND OT PLAN ?PATIENT MENTATION CONTINUE TO SHOW IMPROVEMENT ?HE HAS A NOWAK CATHETER IN PLACE DUE TO URINARY RETENTION ?WILL KEEP IN PLACE FOR NOW ?PT AND OT TEAMS HAS BEEN FOLLOWING THE PATIENT RECOMMENDATIONS ARE FOR DISCHARGE TO DETENTION FACILITY VERSUS HOME WITH 24 HOUR CARE ?CONTINUE TO FOLLOW LAB CLOSELY ?MAINTAIN STRICT FALL PRECAUTIONS ?ASPIRATION PRECAUTIONS ALSO BE ORDERED ?CONTINUE TO MONITOR INPUT AND OUTPUT CLOSELY ?LABS ARE FAIRLY STABLE ?PATIENT TO BE OUT OF BED IN CHAIR WITH EACH MEAL ??[facility] C[facility] PER HOSPITAL PROTOCOL ?ADDITIONAL MANAGEMENT PER CLINICAL COURSE ?POSSIBLE DISCHARGE ONCE ABOUT TO SECURE A DETENTION FACILITY BED OR IF PATIENT /FAMILY ABLE TO HAVE 24 HOUR CARE SET UP Time Spent With Patient Critical Care time: I spent a total of [] minutes of critical care time on this patient's care today; this time is exclusive of procedural time.
--- NOTE | 2021-09-29 12:41 | PC.NURSE ---
Addendum entered by Samantha Swartz R.N. 09/29/21 14:27: Patient up with physical therapy, bp 87/47. Back to bed and bed tilted upright and immediately up to 100/46. He denies dizziness and is doing well. Original Note: Patient is good spirits today. He is alert and oriented x2 to 3. He had a shower with the help of the game warden and tolerated well. Blood pressure did drop down to 90s/50s and 90/49, he did complain of a small amount of dizziness but this has subsided. Patient is watching football and eating lunch.
--- NOTE | 2021-09-29 14:26 | PT.IPTN ---
Physical Therapy Treatment Note M2 PT-IP Current Condition Start: 09/26/21 08:19 Freq: Status: Active Protocol: Document 09/26/21 14:00 MB (Rec: 09/26/21 14:55 MB [id number]) Physical Therapy Current Condition Current Condition Evaluation Date 09/26/21 Treatment Diagnosis Hallucinations, weakness, falls Onset Date Appears acute on chronic M3 PT-IP Subjective Start: 09/26/21 08:19 Freq: Status: Active Protocol: Document 09/29/21 14:26 DLM (Rec: 09/29/21 14:37 [facility] [id number]) Subjective Physical Therapy Visit Type Type Treatment Note Visit Start Time 14:00 Visit Stop Time 14:26 Total Visit Minutes 26 Number of PATIENT NAVIGATOR Visits 0 Physical Therapy Visit Comments Patient Comments He reports feeling light headed when sitting up. His feet are hurting more today. He c/o increased neck pain when sitting up Patient Goals unable to state Therapy Pain Assessment Pain When Pain Assessed At Rest Pain Present Pain Present Pain Reported Location Feet Intensity 4 Scale Used Numeric (0 - 10) Description Aching,Burning M4 PT-IP Mobility and Gait Start: 09/26/21 08:19 Freq: Status: Active Protocol: Document 09/29/21 14:26 DLM (Rec: 09/29/21 14:37 [facility] [id number]) PT-Bed Mobility Assessment Rolling Type of Rolling Roll to Right Level of Assist Contact Guard Assistance, Minimal Assistance Supine to Sit Supine to Sit Minimal Assistance,Moderate Assistance,Bedrails Sit to Supine Sit to Supine Minimal Assistance Scooting Scooting to Edge of Bed Minimal Assistance PT-Transfer Assessment Sit to and From Stand Sit to and from Stand Minimal Assistance,Moderate Assistance,Use of Upper Extremities Equipment Transfer Assistive Device Gait Belt,Front Wheeled Walker Comments Mobility Comments Unable to progress to transfers this visit. Pt c/o light-headedness seated at edge of bed that never resolved. Noted drop in BP in seated that did not resolve. Pt returned to supine but BP continued to be slow to return to baseline. His Nurse was notified and he was left in her care. Vital signs: Supine at start of treatment; BP 98/54 Seated 82/48, 83/46, 89/43 Supine at end of treatment BP 87/47 and HR 57, O2 sat on room air 95% Gait Assessment Comments Gait Comments unable to advance to gait, pt attempted to side-step up to pillow at edge of bed but very unstable, leaning left, wide base of support and needed moderate assist. PT-Balance Assessment Sitting Balance and Reactions Static Sitting Balance Ability Poor Dynamic Sitting Balance Ability Poor Standing Balance and Reactions Static Standing Balance Ability Poor Dynamic Standing Balance Ability Poor Device Used fww Comments Other Balance Tests/Deviations/Treatment Sitting edge of bed, pt : leaning post and left, he used rail on bed with right hand to help support himself but still had severe lean. M5 PT-IP Objective Assessments Start: 09/26/21 08:19 Freq: Status: Active Protocol: Document 09/29/21 14:26 DLM (Rec: 09/29/21 14:37 DLM [id number]) Orientation Orientation/Cognition Level of Alertness Alert Orientation Name,Birthday,Date,Place Language Function Ability No Deficits Noted Safety Awareness Decreased Safety Awareness M6 PT-IP Treatment Start: 09/26/21 08:19 Freq: Status: Active Protocol: Document 09/29/21 14:26 DLM (Rec: 09/29/21 14:37 DLM [id number]) Physical Therapy Treatment Education Education Provided Safety Other Treatments Other Treatment Performed Sitting balance training for static sitting edge of bed. M7 PT-IP Assessment and Plan Start: 09/26/21 08:19 Freq: Status: Active Protocol: Document 09/29/21 14:26 DLM (Rec: 09/29/21 14:43 DLM [id number]) PT Summary Assessment and Plan Summary Impairments Pain,Strength,Balance, Coordination,Cognition,Bed Mobility,Transfers,Gait, Activity Tolerance Progress Towards Goals Slow Progress due to Medical Issues Assessment Summary Andres is alert and resting in bed. He reports he was looking forward to getting up for a walk. Pt sat edge of bed and was light-headed with drop in BP. Pt leaning post and left sitting. His light-headedness did not resolve and his BP did not improve in sitting. Pt returned to supine with nursing to manage his low BP. Pt's light-headness resolved in supine. Pt has limited safety awareness and was not able to underestand how to manage his light-headedness in sitting. He is not safe for discharge home at this time. He is a high fall risk due to his decreased balance and low BP. Will continue to assess him for discharge planning as he improves medically. Goals Bed Mobility Goal Independent Transfer Goal Contact Guard Assistance Gait Goal Contact Guard Assistance Gait Distance 25 Days to Meet Goals 5 Frequency of Treatment Frequency Of Treatment Once a Day Treatment Plan Physical Therapy Treatment Plan Bed Mobility Training,Transfer Training,Gait Training, Therapeutic Exercise,Balance Retraining,Discharge Planning, Neuromuscular Re-ed, Coordination Retraining Precautions Other Precautions No hallucinations this visit, continue to monitor Recommendations To Nursing Amount of Assist Needed 1 Person Assist,2 Person Assist Discharge Recommendations PT Discharge Recommendations SNF Rehab Other Discharge Recommendations unsafe to sit up in wheelchair at this time due to unstable blood pressure Transportation Needs at Discharge Stretcher/Ambulance
--- NOTE | 2021-09-29 14:38 | CM.DPC ---
DCP SNF vs HH Per MD, pt continues to have some medical care needs and may not be quite stable for d/c yet today pending further PT. Pt was unable to work with therapies yesterday due to Ativan and confusion/drowsiness. Per RN, pt alert and oriented and appropriate today. ISIAH met bedside with pt and explained role and he confirms he lives in [place] alone but his son lives close by. Pt confirms he was just getting started with [facility] when he was admitted to the hospital. Pt preference would be home with [facility] if possible and safe but states if he needs SNF his preference is [facility]. SW informed him that [facility] no longer does rehab only LTC. SW discussed briefly pt's current OBS Status and the uncertainty if his [facility] would approve a SNF stay or unsure if any SNF facilities are contracted with [facility]. Pt states he also has Medicare as well. SW checked registration module and no notes confirming pt is active with Medicare at this time, so emailed Admit Counselors requesting they determine if pt is active with medicare or not at this time. Per PT, pt is currently a total assist and not safe for return home alone with HH. ISIAH called pt's son Cy and left msg regarding pt d/c to home and if family can stay with him and no return call yet as pt states Cy works the Graveyard shift and sleeps during the day. ISIAH called [facility] and confirmed they just opened the pt to HH RN/PT/OT and just need Resume orders at d/c and SW faxed [facility] the H&P to review and prog notes. ISIAH called [facility] and discussed pt situation and they are not contracted with [facility] and do not know of any local contracted SNF's but willing to review for COVID waiver and faxed referral to review. ISIAH called [facility] [place] and they have an opening for tomorrow for a male and willing to review under the COVID waiver but COVID waiver only good for Medicare Patients and she is aware that waiting to confirm if pt is active with Medicare. SW faxed referral to review. ISIAH called [facility] and left msg with pt info and request for review for tomorrow and inquiring if they accept COVID waiver. ISIAH called [facility] and left msg for new referral and faxed as it is the weekend and no access to the computer. Plan: SW to follow closely for SNF reviews and Admit Counselors to determine if pt active with Medicare otherwise SNF might not be an option unless private pay. SW to follow for further PT/OT to determine if pt can d/c tomorrow home with [facility] and son/family assist. LYN Downs
[2021-09-29] MEDS: ATORVASTATIN 20 MG TABLET 40 MG PO (20:22)
[2021-09-29] MEDS: MELATONIN 3 MG TABLET 6 MG PO (20:22)
[2021-09-29] MEDS: QUETIAPINE 25 MG TABLET PO (20:22)
[2021-09-29] MEDS: SENNOSIDES 8.6 MG TABLET 17.2 MG PO (20:24)
[2021-09-29] MEDS: TRAZODONE 50 MG TABLET 100 MG PO (20:24)
[2021-09-29] MEDS: SERTRALINE 50 MG TABLET PO (20:25)
[2021-09-30] VITALS (9 sets, daily range): BP systolic 72–160; BP diastolic 46–77; PULSE 50–63; RESP 16–18; TEMP 36.2–36.9; O2SAT 94–100
[2021-09-30] MEDS: polyethylene glycoL 3350 17 GM POWD.PACK PO ×2 (08:57→22:35)
[2021-09-30] MEDS: METOPROLOL IR 50 MG TABLET PO (08:57)
[2021-09-30] MEDS: ISOSORBIDE MONONITRATE ER 30 MG TABLET 60 MG PO (08:57)
[2021-09-30] MEDS: lisinopriL 20 MG TABLET PO (08:58)
[2021-09-30] MEDS: risperiDONE 0.25 MG TABLET 0.5 MG PO ×2 (08:58→22:32)
[2021-09-30] MEDS: FAMOTIDINE 20 MG TABLET PO ×2 (08:58→22:33)
[2021-09-30] MEDS: FINASTERIDE 5 MG TABLET PO (08:58)
[2021-09-30] MEDS: TAMSULOSIN 0.4 MG CAPSULE 0.8 MG PO (08:58)
[2021-09-30] MEDS: CLOPIDOGREL 75 MG TABLET PO (08:58)
[2021-09-30] MEDS: buPROPion XL 150 MG TAB 300 MG PO (09:06)
[2021-09-30] MEDS: ENOXAPARIN 40 MG/0.4 ML SYRINGE SUBCUT (09:06)
[2021-09-30] MEDS: SUCRALFATE 1 GM TABLET PO ×4 (09:06→22:32)
[2021-09-30] MEDS: LEVOTHYROXINE 125 MCG TABLET PO (09:11)
[2021-09-30] MEDS: INSULIN GLARGINE 100 UNIT/ML 3ML PEN 80 UNIT SUBCUT (09:18)
[2021-09-30] MEDS: SODIUM CHLORIDE 0.9% FLUSH 10 ML IV ×2 (09:19→22:35)
--- NOTE | 2021-09-30 11:16 | OT.IP.TRT ---
Occupational Therapy Treatment Note M2 OT-IP Current Condition Start: 09/28/21 10:16 Freq: Status: Active Protocol: Document 09/28/21 10:18 [facility] (Rec: 09/28/21 10:35 [facility] [id number]) Occupational Therapy Current Condition Current Condition Evaluation Date 09/28/21 Treatment Diagnosis Falls, decreased mobility. M3 OT- IP Subjective and Pain Start: 09/28/21 10:16 Freq: Status: Active Protocol: Document 09/30/21 12:41 CGR (Rec: 09/30/21 12:55 CGR [id number]) OT- Subjective Occupational Therapy Visit Type Type Progress Note Visit Start Time 10:45 Visit Stop Time 11:16 Total Visit Minutes 31 Notes MD present in room during session and requests SLUMS. OT Pain Assessment Pain When Pain Assessed At Rest Pain Present Pain Present Denied Pain M4 OT- IP ADL's Start: 09/28/21 10:16 Freq: Status: Active Protocol: Document 09/30/21 12:41 CGR (Rec: 09/30/21 12:55 CGR [id number]) OT [id number] Comments OT Self-Feeding Comments Not meal time OT ADL-Grooming General Evaluation Grooming Ability Standby Assistance Areas Needing Assistance Combing/Brushing Hair,Face Washing Comments OT Grooming Comments seated in chair at sink OT ADL-Oral Care Comments Oral Care Comments Pt states already performed OT ADL-Dressing Comments OT Dressing Comments Not performed OT ADL-Toileting Comments OT Toileting Comments not performed, pt with magaña OT ADL-Bathing Comments OT Bathing Comments Pt declined. Pt states he showered yesterday and it took a lot out of me. M5 OT- IP IADL's Start: 09/28/21 10:16 Freq: Status: Active Protocol: Document 09/28/21 10:18 [facility] (Rec: 09/28/21 10:35 [facility] [id number]) OT-Instrumental Activities of Daily Living Home Safety Awareness Home Safety Comments Pt needing increased time to figure out home safety situations. At this time as pt is very groogy and unsteady on his feet that it would be best for someone to assist pt for all his needs. M6 OT- IP Functional Cognition Start: 09/28/21 10:16 Freq: Status: Active Protocol: Document 09/30/21 12:41 CGR (Rec: 09/30/21 12:55 CGR [id number]) Cognitive Factors Limiting Selfcare Function Cognitive Ability Level of Alertness Alert Patient Orientation Name,Age,Birthday,Month,Date, Year,Day of Week,Place, Situation Attention Span Ability Capable of Focused Attention, Capable of Sustained Attention Ability to Follow Commands Able to Follow One Step Commands with Increased Time, Able to Follow One Step Commands with Repetition Cognitive Tests SLUMS Pt performed the SLUMS with a score of 19/30. Pt was only able to remember 3 of the 5 objects, had difficulty with resiting numbers backwards, was unable to acurately fill the face of a clock or may the time, and missed 2 of the 4 questions from the listening comprehension sectione. Cognitive Comments Cognitive Assessment Comments A score of 19/30 indicates that the pt is in the scoring range for those with dementia. M7 OT- IP Mobility and Balance Start: 09/28/21 10:16 Freq: Status: Active Protocol: Document 09/30/21 12:41 CGR (Rec: 09/30/21 12:55 CGR [id number]) OT- Bed Mobility Assessment Supine to Sit Supine to Sit Assist Standby Assistance,Head of Bed Elevated,Bedrails Scooting Scooting to Edge of Bed Standby Assistance,Head of Bed Elevated,Bedrails OT-Transfer Assessment Sit to and From Stand Sit to and from Stand Contact Guard Assistance Transfers Transfer Ability Contact Guard Assistance Technique Transfer Destination Bed,Bedside Commode,Chair Transfer Technique Stand Step Pivot Devices Transfer Assistive Devices Gait Belt,Front Wheeled Walker Comments Mobility Comments Pt mobilized around the room with CGA. Pt apears shaky but did not have a LOB. OT- Gait Assessment Gait Gait Assistance Required: Contact Guard Assist Assistive Devices Assistive Device Gait Belt,Front Wheeled Walker OT- Balance Assessment Sitting Balance and Reactions Static Sitting Balance Ability Good Dynamic Sitting Balance Ability Fair M8 OT- IP Objective Assessments Start: 09/28/21 10:16 Freq: Status: Active Protocol: Document 09/28/21 10:18 [facility] (Rec: 09/28/21 10:35 CCC [id number]) OT Strength Comments Strength Comments Pt at least 3-/5 during mobility needs not able to formally assess. OT- Coordination Assessment Comments Coordination Comments Decreased due to tremors and needing asisst to cut his food and open items on his try at this time. OT-Muscle Tone Assessment Comments Muscle Tone Comments Pt having tremors in in his hands. M9 OT- IP Assessment and Plan Start: 09/28/21 10:16 Freq: Status: Active Protocol: Document 09/30/21 12:41 CGR (Rec: 09/30/21 12:55 CGR [id number]) OT Summary Assessment and Plan Potential Rehabilitation Potential Fair Analytic Complexity at Evaluation Low Summary OT Impairments Balance,Functional Cognition, Functional Mobility,Self- Feeding,Grooming,Dressing, Toileting,Bathing,Toilet Transfers,Shower Transfers, Activity Tolerance Progress Towards Goals Slow Progress due to Medical Issues,Slow Progress due to Activity Tolerance,Slow Progress due to Cognition Assessment Summary Pt is mobilizing with CGA at this time with the use of the walker but with shaky steps but no LOB. This may be his baseline. Cog assessment today with a score of 19/30 on the SLUMS. Scores below 20 are indicative of dementia. Notified MD of scoring. Pt left sitting up in chair at end of session. Goals Grooming Goal Independent Dressing Goal Independent Toileting Goal Independent Bathing Goal Independent Toilet Transfer Goal Independent Shower Transfer Goal Independent Days to Meet Goals 20 Frequency of Treatment Frequency Of Treatment Once a Day Treatment Plan OT Treatment Plan ADL Training,Functional Cognition Training,Functional Mobility,Patient/Family Education,Discharge Planning Other Treatment Recommendations and Next shower Treatment Focus Discharge Recommendations OT Discharge Recommendations Home with 24/7 Assist Available,Home Health,Home vs SNF Other Discharge Recommendations Pt is declining SNF at this time. Transportation Needs at Discharge Private Vehicle
--- NOTE | 2021-09-30 11:32 | PT.IPTN ---
Physical Therapy Treatment Note M2 PT-IP Current Condition Start: 09/26/21 08:19 Freq: Status: Active Protocol: Document 09/26/21 14:00 MB (Rec: 09/26/21 14:55 MB [id number]) Physical Therapy Current Condition Current Condition Evaluation Date 09/26/21 Treatment Diagnosis Hallucinations, weakness, falls Onset Date Appears acute on chronic M3 PT-IP Subjective Start: 09/26/21 08:19 Freq: Status: Active Protocol: Document 09/30/21 11:14 KS (Rec: 09/30/21 11:55 KS [id number]) Subjective Physical Therapy Visit Type Type Treatment Note Visit Start Time 11:14 Visit Stop Time 11:32 Total Visit Minutes 18 Number of POULTRY PICKING MACHINE TENDER Visits 1 Physical Therapy Visit Comments Patient Comments c/o neck pain M4 PT-IP Mobility and Gait Start: 09/26/21 08:19 Freq: Status: Active Protocol: Document 09/30/21 11:14 KS (Rec: 09/30/21 11:55 KS [id number]) PT-Transfer Assessment Sit to and From Stand Sit to and from Stand Minimal Assistance,1 Person Assistance,Use of Upper Extremities Equipment Transfer Assistive Device Gait Belt,Front Wheeled Walker Transfers Transfer Destination Chair Transfer Technique Ambulated w/ FWW Transfer Ability Level of Assist Minimal Assistance,1 Person Assistance,Use of Upper Extremities Comments Mobility Comments Pt in chair upon arrival from therapy. Min A and cues for hand placement for sit<>stand w/ FWW. Pt w/ shakiness present in legs upon standing. Pt then ambulated ~40 ft in room w/ FWW and then requested to sit due to cervical pain increasing. After sitting pt performed 1x10 bilateral ankle pumps, LAQ, seated marches, and glute sets. Pt left in chair w/ all needs in reach. Gait Assessment Gait Gait Assistance Required: Contact Guard Assist,Minimum Assistance,1 Person Assist Distance (Feet) 40 Assistive Devices Assistive Device Gait Belt,Front Wheeled Walker Gait Deviations General Gait Pattern Decreased Stride Length, Decreased Feet Clearance, Flexed Trunk,Lateral Trunk Lean Factors Limiting Gait Function Factors Limiting Gait Function Decreased Activity Tolerance, Decreased Strength, Incoordination,Poor Balance, Poor Safety Awareness Comments Gait Comments Pt able to ambulate ~40 ft today w/ FWW and CGA to Min A. He demonstrated poor use of FWW, needing frequent cues for upright posture and staying inside of FWW, especially when turning. Poor use of FWW and decreased foot clearance and safety awareness increased pt risk of falls. PT-Balance Assessment Sitting Balance and Reactions Static Sitting Balance Ability Poor Dynamic Sitting Balance Ability Poor Standing Balance and Reactions Static Standing Balance Ability Poor Dynamic Standing Balance Ability Poor Device Used fww M5 PT-IP Objective Assessments Start: 09/26/21 08:19 Freq: Status: Active Protocol: Document 09/29/21 14:26 DLM (Rec: 09/29/21 14:37 DLM [id number]) Orientation Orientation/Cognition Level of Alertness Alert Orientation Name,Birthday,Date,Place Language Function Ability No Deficits Noted Safety Awareness Decreased Safety Awareness M6 PT-IP Treatment Start: 09/26/21 08:19 Freq: Status: Active Protocol: Document 09/30/21 11:14 KS (Rec: 09/30/21 11:55 KS [id number]) Physical Therapy Treatment Exercises Exercises Ankle Pumps,Gluteal Sets Education Education Provided Safety Other Treatments Other Treatment Performed LAQ, seated marching M7 PT-IP Assessment and Plan Start: 09/26/21 08:19 Freq: Status: Active Protocol: Document 09/30/21 11:14 KS (Rec: 09/30/21 11:55 KS [id number]) PT Summary Assessment and Plan Summary Impairments Pain,Strength,Balance, Coordination,Cognition,Bed Mobility,Transfers,Gait, Activity Tolerance Progress Towards Goals Slow Progress due to Medical Issues Assessment Summary Pt Min A for sit<>Stand, CGA to Min A for ambulation w/ FWW . He requires frequent cues to complete all tasks correctly including hand placement for transfers and safe use of FWW when ambulating. He has poor safety awareness when ambulating. If going home he will require 24/7 assist due to high fall risk. Goals Bed Mobility Goal Independent Transfer Goal Contact Guard Assistance Gait Goal Contact Guard Assistance Gait Distance 25 Days to Meet Goals 5 Frequency of Treatment Frequency Of Treatment Once a Day Treatment Plan Physical Therapy Treatment Plan Bed Mobility Training,Transfer Training,Gait Training, Therapeutic Exercise,Balance Retraining,Discharge Planning, Neuromuscular Re-ed, Coordination Retraining Precautions Other Precautions No hallucinations this visit, continue to monitor Recommendations To Nursing Amount of Assist Needed 1 Person Assist Discharge Recommendations PT Discharge Recommendations Home with 24/7 Assist Available,Home Health,SNF Rehab Transportation Needs at Discharge Wheelchair/Cabulance
[2021-09-30] MEDS: INFLUENZA HD VACCINE 0.7 ML SYRINGE IM (14:41)
--- NOTE | 2021-09-30 16:13 | P.PN_ITS ---
Subjective Subjective Date Patient Seen: 09/30/21 Interval history: 66 y/o male with a history of psychiatric illness and possible dementia admitted for altered mental status possible psychosis. Work up negative. Patient has had multiple falls. He has been found to be markedly orthostatic which may be contributing to falls. He has no complaints, he denies shortness of breath or chest pain. Patient does admit to hallucinations, depression, and suicidal ideation. ( previously) He is agreeable to psychiatric consultation. Patient does not want to go to SNF but would like to return home. Exam Vital Signs (past 8 hours): - 09/30/21 08:20 09/30/21 08:35 09/30/21 08:58 Temperature 98.5 F Pulse Rate 62 62 Pulse Rate [Orthostatic Lying] Pulse Rate [Orthostatic Sitting] Respiratory Rate 16 Blood Pressure 160/77 H 160/77 H Blood Pressure [Orthostatic Lying] Blood Pressure [Orthostatic Sitting] Pulse Oximetry 97 94 09/30/21 12:24 09/30/21 15:40 09/30/21 15:41 Temperature 97.5 F L Pulse Rate 51 L 54 L Pulse Rate [Orthostatic Lying] 54 L Pulse Rate [Orthostatic Sitting] 50 L Respiratory Rate 16 16 Blood Pressure 90/49 L 119/57 L Blood Pressure [Orthostatic Lying] 119/57 L Blood Pressure [Orthostatic Sitting] 72/46 L Pulse Oximetry 97 94 Oxygen Delivery Method Room Air Oxygen Flow Rate 0 Narrative Exam Narrative: Elderly male sitting in a chair in no obvious distress Resp Other: Lungs clear to auscultation Cardio Other: Cardiac exam regular rate and rhythm normal S1-S2 GI Other: Abdomen soft nontender nondistended Skin Other: Face with severe seborrhea around the scalp and right ear Extrem Other: Extremity no edema Psych Other: Patient has normal thought processes and thought content. He has normal judgment. Speech is normal. Mood appears appropriate. Normal affect, acute appears appropriate Objective Labs Result Diagrams: 09/29/21 04:35 09/29/21 04:26 [facility] Medical History Bilateral otitis externa Cellulitis Chicken pox (1956) Chickenpox (1956) Chronic cough COPD (chronic obstructive pulmonary disease) Coronary artery disease (2006) Depression (2008) Diabetes (1994) Eczema Foot pain GERD (gastroesophageal reflux disease) (2012) Gout Hearing reduced Hip pain History of recurrent TIAs Hyperlipidemia Hypertension Hypothyroidism Kidney disease (2009) Measles (195) Measles (1955) Mental health assessment declined Mumps (195) Mumps (1958) Neuropathy Obstructive sleep apnea Otitis externa Screening for malignant neoplasm of colon Shoulder pain Sleep apnea Status post myocardial infarction Steatosis Strain of muscle of right groin region (03/30/18) Type 2 diabetes mellitus Well adult exam Surgical History Anesthesia History of heart artery stent (2006) History of heart artery stent (2010) Hx of shoulder surgery (2005) Family History Brother Age: 67 Diabetes mellitus Hyperlipidemia Mother Heart disease Hypertension Hyperlipidemia Diabetes mellitus Grandmother Diabetes mellitus Brother No problems noted. Sister Breast cancer Social History household members: none Smoking Status: Current every day smoker Tobacco: How many years used: 45 alcohol intake: current Assessment & Plan Assessment & Plan narrative: 1. Frequent falls, and orthostatic hypotension -multiple medications contributing to the low blood pressure -patient with hypertension as well. -will hold lisinopril, Imdur, and metoprolol -may need to slowly resume 1 of his medications if his blood pressure is markedly elevated when lying -patient's blood pressure drops to a systolic of 72, this results in him being dizzy, likely contributing to his falls 2. Acute metabolic encephalopathy -likely multifactorial -question related to cannabis -does not appear encephalopathic at this time 3. Anxiety and depression -psychiatric consultation 4. Hallucination -question Lewy body dementia -slums 5. Hyperlipidemia -continue statin 6. Hypertension -holding medications as above given orthostasis 7. BPH -continue tamsulosin and finasteride 8. Nicotine addiction I have utilized all available methods, resources, to confirm, update, and tomás idate patient's current medications Time Spent With Patient Critical Care time: I spent a total of [] minutes of critical care time on this patient's care today; this time is exclusive of procedural time.
--- NOTE | 2021-09-30 16:48 | PC.NURSE ---
Sheared skin R weston 1629 This RN called to pt's room by YULIA. Pt states his R weston itched and I just had to scratch it. Pt has scratch approx 5 long and 1 wide now to right weston. Telfa dressing applied.
[2021-09-30] MEDS: SERTRALINE 50 MG TABLET PO (22:33)
[2021-09-30] MEDS: ATORVASTATIN 20 MG TABLET 40 MG PO (22:33)
[2021-09-30] MEDS: SENNOSIDES 8.6 MG TABLET 17.2 MG PO (22:33)
[2021-09-30] MEDS: TRAZODONE 50 MG TABLET 100 MG PO (22:34)
[2021-09-30] MEDS: QUETIAPINE 25 MG TABLET PO (22:34)
[2021-09-30] MEDS: MELATONIN 3 MG TABLET 6 MG PO (22:34)
[2021-10-01] VITALS (8 sets, daily range): BP systolic 97–159; BP diastolic 58–82; PULSE 60–80; RESP 16–18; TEMP 36.6–37.2; O2SAT 93–97
[2021-10-01] MEDS: LEVOTHYROXINE 125 MCG TABLET PO (06:27)
--- NOTE | 2021-10-01 07:41 | P.CONS_ITS ---
History of Present Illness Consult details Date Patient Seen: 10/01/21 Time Patient Seen: 07:41 Chief complaint: Fall yesterday, chest pain Reason for consult: Depression and hallucinations, probable Lewy body disease Requesting provider: Helen Guadalupe Narrative: REFERRAL INFORMATION This is the first psychiatric evaluation for this 66-year-old male referred by Dr. Guadalupe, hospitalist, for evaluation of hallucinations in the context of dementia. RECORDS REVIEW The patient?s referral documents and medical records were reviewed as part of this evaluation. CHIEF COMPLAINT ?I kept falling and I also have these hallucinations.? HISTORY OF PRESENT ILLNESS The patient reports a fairly long history of gradual decline in his ability to function. This may date back to about 3 years ago when his of many years . Since then, he lives alone and suffers from significant medical issues that have also affected his ability to function. These include CAD, COPD, type 2 diabetes mellitus on insulin, HTN, BPH, hypothyroidism, and most recently chest pain and frequent falls. This difficulty with falling has traci arently progressed over the last several months with the patient falling much more frequently often feeling that he is imbalanced. He notes feeling weak and does not lose consciousness have back pain. In addition to the patient's difficulty with falling he also notes that he is moving slower, taking more time for common everyday tasks, and also suffers from difficulty with an intention tremor. He states that just sitting still he does not observe any sort of tremor in his hands but whenever he tries to drink from a cup, or use a utensil, or do anything with his hands he has difficulty with tremor. He denies rigidity, numbness, tingling, or loss of sensation. Six days ago, he fell several times during the course of the day and was assisted by his son who lives nearby locally, called EMS, and the patient was brought to the emergency department for further evaluation. Other than profound lower extremity weakness, the emergency department workup found nothing on head CT or laboratory studies. In addition, the patient also reported experiencing hallucinations and occasionally feeling paranoid and anxious. He states that he frequently will see objects moving or misplacing themselves in the wrong place in the room such as lamps, pictures, or furniture. He also notes seeing his and mother waving and smiling at him even though they have been for least the past 2-3 years. He will sometimes experience seeing animals and babies. None of these hallucinatory experiences are disturbing to him or make him feel afraid or paranoid. The patient also admits to taking long naps during the day sometimes over 2 hours, as well as difficulty with sudden episodes of confusion. He also reported increasing difficulty with memory, particularly with short-term memory and cognition. In addition to the hallucinations the patient reports of depression and anxiety. He states that his primary care provider has been giving him medications including bupropion and citalopram. Recently the hospitalist switched him from citalopram to sertraline. The patient reported experiencing some suicidal ideation, but no intent or plan. He states that this most often occurs when he becomes lonely when depressed. He denies any current suicidal ideation, intent, or plan. The patient denies any prior history of janice, psychosis, or PTSD. PAST PSYCHIATRIC HISTORY - Diagnoses: None - Inpatient: None. - Outpatient: None. - Suicide Attempts: None. PREVIOUS PSYCHIATRIC MEDICATION TRIALS Bupropion and citalopram as provided by PCP for depression CURRENT PSYCHOTROPIC MEDICATIONS Bupropion XL 300 mg p.o. q.day Sertraline 50 mg p.o. q.h.s. FAMILY HISTORY - Maternal: None noted - Paternal: None noted - Siblings: None noted SUBSTANCE USE HISTORY - Tobacco: Current smoker and 45 pack-years smoking - Alcohol: Patient is a regular alcohol drinker - Drugs: The patient does not use drugs. But has do use marijuana periodically in the past SOCIAL HISTORY - Current Living: Currently lives alone in an apartment. His son lives nearby and provide some support periodically. - Support: Income from disability f[employer] - Legal: No current legal difficulties. Meds Home Medications and Allergies Home Medications Medication Instructions Recorded Confirmed Type ipratropium 0.5 mg-albuterol 3 mg 3 ml INH QID #360 ml 03/12/19 09/25/21 Rx (2.5 mg base)/3 mL nebulization soln Test strips #1 each 03/22/20 09/25/21 Rx insulin aspart U-100 100 unit/mL See Rx Instructions SUBCUT 05/01/20 09/25/21 Rx (3 mL) subcutaneous pen (Novolog .COMPLEX #15 ml Flexpen U-100 Insulin aspart) beclomethasone dipropionate 40 1 inhalation INHALATION BID #10.6 07/28/20 11/24/21 Rx mcg/actuation HFA breath activated gram aerosol atorvastatin 80 mg tablet 80 mg PO DAILY #90 tab 08/22/20 09/25/21 Rx metoprolol tartrate 50 mg tablet 50 mg PO BID #180 tab 08/22/20 09/25/21 Rx blood-glucose meter #1 ea 01/11/21 09/25/21 Rx Disabled Parking Permit #1 ea 02/15/21 09/25/21 Rx blood sugar diagnostic (Blood #100 ea 03/01/21 09/25/21 Rx Glucose Test) lancets 33 gauge (BD Ultra Fine #100 ea 03/01/21 09/25/21 Rx Lancets) isosorbide mononitrate 60 mg 60 mg PO QAM #90 tab 03/15/21 09/25/21 Rx tablet,extended release 24 hr gabapentin 300 mg capsule 900 mg PO BID #540 cap 04/12/21 09/25/21 Rx albuterol sulfate 90 mcg/actuation 2 puff INHALATION QID PRN #18 gram 04/22/21 09/25/21 Rx aerosol inhaler (Proventil HFA) levothyroxine 125 mcg tablet 125 mcg PO DAILY #90 tab 06/03/21 09/25/21 Rx furosemide 20 mg tablet 20 mg PO DAILY #90 tab 06/11/21 09/25/21 Rx pen needle, diabetic 31 gauge x #100 each 06/18/21 09/25/21 Rx 5/16 (Comfort EZ Pen [place]) clopidogrel 75 mg tablet 75 mg PO DAILY #90 tab 07/15/21 09/25/21 Rx lisinopril 2.5 mg tablet 2.5 mg PO QAM #90 tab 07/15/21 09/25/21 Rx triamcinolone acetonide 0.1 % 1 applic TOP DAILY #30 gram 07/15/21 09/25/21 Rx topical cream insulin glargine U-300 conc 300 80 unit (0.2667 mL) SUBCUT BID #15 07/25/21 09/25/21 Rx unit/mL (3 mL) subcutaneous pen ml citalopram 40 mg tablet (Celexa) 40 mg PO DAILY #90 tab 08/08/21 09/25/21 Rx lorazepam 1 mg tablet 1 mg PO BID PRN #30 tab 08/13/21 09/25/21 Rx mupirocin 2 % topical ointment 1 applic TOP BID #30 gram 08/13/21 09/25/21 Rx nitroglycerin 0.4 mg sublingual 0.4 mg SUBLINGUAL PRN PRN #20 tab 08/13/21 09/25/21 Rx tablet omeprazole 20 mg tablet,delayed 20 mg PO DAILY #90 tab 08/13/21 09/25/21 Rx release tamsulosin 0.4 mg capsule (Flomax) 0.4 mg PO DAILY #90 cap 08/13/21 09/25/21 Rx methocarbamol 500 mg tablet 500 mg PO TID PRN #90 tab 08/19/21 09/25/21 Rx bupropion HCl 300 mg 24 hr tablet, 300 mg PO QAM #90 tab 08/26/21 09/25/21 Rx extended release cyclobenzaprine 10 mg tablet 10 mg PO TID PRN #10 tab 09/14/21 09/25/21 Rx oxycodone 5 mg tablet 5 mg PO Q4-6H PRN #60 tab 09/16/21 09/25/21 Rx Allergies Allergy/AdvReac Type Severity Reaction Status Date / Time adhesive Allergy Mild REDNESS/ITC Verified 09/13/21 20:50 HINESS morphine Allergy Verified 09/13/21 20:50 Exam Vital Signs (past 8 hours): - 10/01/21 06:31 Temperature 98.9 F Pulse Rate 63 Respiratory Rate 17 Blood Pressure 159/76 H Pulse Oximetry 93 Oxygen Delivery Method Room Air Oxygen Flow Rate 0 Narrative Exam Narrative: MENTAL STATUS EXAM * Appearance: The patient is a short-statured but well-developed and well- nourished male seen lying in his hospital bed who appears somewhat older than his stated age of 66. * Grooming: Neatly dressed and adequately groomed for being in hospital attire. * Behavior: Calm and cooperative with the evaluation * Gait: Not observed * Speech: Normal rate, volume, and navarro * Mood: ?Kind of sad and depressed? * Affect: Pleasant, friendly, mildly dysphoric at times, but then euthymic at other times. Congruent with content, normal range and reactivity * Thought Process: Linear, logical, and goal-directed for the most part with some mild circumstantiality at times. * Thought Content: Denies suicidal ideation, denies homicidal ideation, intent or plan; and thee was no evidence of a formal thought or perceptual disturbance. * Attention: Attentive to interview * Orientation: Oriented to person, place, time, and circumstance * Memory: on the [place] cognitive Assessment * Insight: Fair * Judgment: Poor Objective Labs Result Diagrams: 09/29/21 04:35 09/29/21 04:26 [facility] Medical History Bilateral otitis externa Cellulitis Chicken pox (1956) Chickenpox (1956) Chronic cough COPD (chronic obstructive pulmonary disease) Coronary artery disease (2006) Depression (2008) Diabetes (1994) Eczema Foot pain GERD (gastroesophageal reflux disease) (2012) Gout Hearing reduced Hip pain History of recurrent TIAs Hyperlipidemia Hypertension Hypothyroidism Kidney disease (2009) Measles (1955) Measles (1955) Mental health assessment declined Mumps (1958) Mumps (1958) Neuropathy Obstructive sleep apnea Otitis externa Screening for malignant neoplasm of colon Shoulder pain Sleep apnea Status post myocardial infarction Steatosis Strain of muscle of right groin region (03/30/18) Type 2 diabetes mellitus Well adult exam Surgical History Anesthesia History of heart artery stent (2006) History of heart artery stent (2010) Hx of shoulder surgery (2005) Family History Brother Age: 67 Diabetes mellitus Hyperlipidemia Mother Heart disease Hypertension Hyperlipidemia Diabetes mellitus Grandmother Diabetes mellitus Brother No problems noted. Sister Breast cancer Social History marital status: details: 3 years ago household members: none lives independently: Yes housing: apartment Tobacco & Substance Use Smoking Status: Current every day smoker Tobacco: How many years used: 45 alcohol intake: current Assessment & Plan Assessment and plan (1) Major neurocognitive disorder with probable Lewy bodies, without behavioral disturbance: Status: Acute Plan ASSESSMENT/MEDICAL DECISION MAKING Carlos Randall is a 66-year-old man with numerous medical problems and significant past medical history who presented after several months history of worsening difficulty with frequent falls, memory problems, lower extremity weakness, tremor, and experiencing auditory and visual hallucinations. The patient also reports a significant history of moderate levels of depression and anxiety that may be related to loneliness, some isolation, following being 2 or 3 years ago. In terms of differential diagnosis, the patient appears to fit the profile for Lewy body dementia with fluctuations in consciousness, visual hallucinations, and some features of parkinsonism. He reports tremor and the difficulty with weakness lower extremities and falls may be due to this in the absence of any other explanation. Other possibilities include vascular, frontotemporal, and of course Alzheimer's dementia. However, given that he meets 2 of for core criteria for Lewy body dementia as well as some of the supporting criteria including postural instability, repeated falls, autonomic dysfunction, and hypoxemia, it seems very probable that Lewy body disease is present. DIAGNOSES/PROBLEMS Probable Lewy body disease RECOMMENDATIONS: 1. Individuals with Lewy body disease may be more sensitive antipsychotic medications and may have paradoxical reactions to many medications that affect the central nervous system, therefore we should be cautious in use of any [facility] medications, particularly anti psychotics. 2. Since the patient does not appear to be alarmed her disturbed by the visual hallucinations, I would recommend not treating them at this time with any medications, instead providing Education and reassurance. 3. If antipsychotic medications are required, would use very low doses and recommend using quetiapine vice other antipsychotics for acute agitation managment. 4. Would also minimize use of benzodiazepines due to worsening of cognition. 5. correction, pimavanserin may be useful if hallucinations become disturbing to the patient, but for now would use non-pharmacologic interventions of education and reassurance. 6. Continue to explore other possible medical/nonpsychiatric causes as differential may be broad in his case. 7. Involve social Work to discuss possible placement as patient may not be safe at home or able to care for himself properly and may be at risk for more rapid decline. 8. Will continue to follow with you while in house. Time Spent With Patient Time with patient: 30 to 49 minutes with 50% spent counseling/coordinating care Critical Care time: I spent a total of [] minutes of critical care time on this patient's care today; this time is exclusive of procedural time.
[2021-10-01] MEDS: buPROPion XL 150 MG TAB 300 MG PO (09:40)
[2021-10-01] MEDS: FAMOTIDINE 20 MG TABLET PO ×2 (09:41→22:14)
[2021-10-01] MEDS: TAMSULOSIN 0.4 MG CAPSULE 0.8 MG PO (09:41)
[2021-10-01] MEDS: SUCRALFATE 1 GM TABLET PO ×4 (09:41→22:07)
[2021-10-01] MEDS: CLOPIDOGREL 75 MG TABLET PO (09:41)
[2021-10-01] MEDS: risperiDONE 0.25 MG TABLET 0.5 MG PO ×2 (09:41→22:21)
[2021-10-01] MEDS: SODIUM CHLORIDE 0.9% FLUSH 10 ML IV ×2 (09:42→22:22)
[2021-10-01] MEDS: FINASTERIDE 5 MG TABLET PO (09:42)
[2021-10-01] MEDS: polyethylene glycoL 3350 17 GM POWD.PACK PO (09:42)
[2021-10-01] MEDS: ENOXAPARIN 40 MG/0.4 ML SYRINGE SUBCUT (09:43)
--- NOTE | 2021-10-01 10:49 | PT-IP ANOTE ---
Per RN, hold until PM due to orthostatic.
--- NOTE | 2021-10-01 12:52 | PM.PN.1 ---
Subjective Subjective Date Patient Seen: 10/01/21 Interval history: 66-year-old male admitted to the hospital with visual hallucinations, frequent falls, confusion, and possible dementia. Patient was found to be markedly orthostatic yesterday. Blood pressure dropped from 150 for lying to 100 standing, patient was asymptomatic. He is quite unsteady when standing. After further consideration the patient is willing to consider care home at discharge as is felt that he is unsteady and unsafe to be discharged home. Exam Vital Signs (past 8 hours): - 10/01/21 06:31 10/01/21 08:36 10/01/21 08:40 Temperature 98.9 F 98.0 F Pulse Rate 63 60 Pulse Rate [Orthostatic Lying] Pulse Rate [Orthostatic Sitting] Pulse Rate [Orthostatic Standing] Respiratory Rate 17 16 Blood Pressure 159/76 H 123/76 Blood Pressure [Orthostatic Lying] Blood Pressure [Orthostatic Sitting] Blood Pressure [Orthostatic Standing] Pulse Oximetry 93 97 97 10/01/21 10:00 Temperature Pulse Rate Pulse Rate [Orthostatic Lying] 64 Pulse Rate [Orthostatic Sitting] 63 Pulse Rate [Orthostatic Standing] 66 Respiratory Rate Blood Pressure Blood Pressure [Orthostatic Lying] 154/74 H Blood Pressure [Orthostatic Sitting] 122/71 Blood Pressure [Orthostatic Standing] 100/58 L Pulse Oximetry Oxygen Delivery Method Room Air Oxygen Flow Rate 0 Narrative Exam Narrative: Pleasant gentleman resting comfortably Resp Other: Lungs clear to auscultation Cardio Other: Cardiac exam: Regular rate and rhythm normal S1-S2 GI Other: Abdomen: Soft nontender nondistended Extrem Other: Extremities: No edema Objective Labs Result Diagrams: 09/29/21 04:35 09/29/21 04:26 [facility] Medical History Bilateral otitis externa Cellulitis Chicken pox (1956) Chickenpox (1956) Chronic cough COPD (chronic obstructive pulmonary disease) Coronary artery disease (2006) Depression (2008) Diabetes (1994) Eczema Foot pain GERD (gastroesophageal reflux disease) (2012) Gout Hearing reduced Hip pain History of recurrent TIAs Hyperlipidemia Hypertension Hypothyroidism Kidney disease (2009) Measles (6) Measles (1955) Mental health assessment declined Mumps (1958) Mumps (1958) Neuropathy Obstructive sleep apnea Otitis externa Screening for malignant neoplasm of colon Shoulder pain Sleep apnea Status post myocardial infarction Steatosis Strain of muscle of right groin region (03/30/18) Type 2 diabetes mellitus Well adult exam Surgical History Anesthesia History of heart artery stent (2006) History of heart artery stent (2010) Hx of shoulder surgery (2005) Family History Brother Age: 67 Diabetes mellitus Hyperlipidemia Mother Heart disease Hypertension Hyperlipidemia Diabetes mellitus Grandmother Diabetes mellitus Brother No problems noted. Sister Breast cancer Social History marital status: details: 3 years ago household members: none lives independently: Yes housing: apartment Smoking Status: Current every day smoker Tobacco: How many years used: 45 alcohol intake: current Assessment & Plan Assessment & Plan narrative: Frequent falls, and orthostatic hypotension -multiple medications contributing to the low blood pressure -patient with hypertension as well. -will hold lisinopril, Imdur, and metoprolol -may need to slowly resume 1 of his medications if his blood pressure is markedly elevated when lying -patient's blood pressure drops to a systolic of 72, this results in him being dizzy, likely contributing to his falls -patient likely with autonomic insufficiency, related to underlying probable Lewy body dementia. -he remains orthostatic, and unsteady with ambulation. Blood pressure medications have been discontinued. Systolic blood pressure does drop 50 points with standing however the patient is no longer symptomatic. -will continue to hold blood pressure medications for now 2. Acute metabolic encephalopathy -likely multifactorial -question related to cannabis -does not appear encephalopathic at this time -patient very likely has underlying dementia, hallucinations suggestive of Lewy body dementia, coupled with his orthostatic hypotension gait disturbance suspect all of the above are contributing to his metabolic encephalopathy 3. Anxiety and depression -psychiatric consultation -no new medication recommendations at this time. 4. Hallucination -question Lewy body dementia -slums -patient would benefit from outpatient neurology consultation 5. Hyperlipidemia -continue statin 6. Hypertension -holding medications as above given orthostasis 7. BPH -continue tamsulosin and finasteride 8. Nicotine addiction Will attempt PT OT consultation and possible sniff verses adult family home versus other options at discharge Time Spent With Patient Critical Care time: I spent a total of [] minutes of critical care time on this patient's care today; this time is exclusive of procedural time.
[2021-10-01] MEDS: INSULIN LISPRO 100 UNIT/ML 3ML VIAL SUBCUT ×3 (13:07→22:00)
--- NOTE | 2021-10-01 13:27 | PT.IPTN ---
Current Diagnoses Unspecified dementia without behavioral disturbance (09/25/21) Physical Therapy Treatment Note M2 PT-IP Current Condition Start: 09/26/21 08:19 Freq: Status: Active Protocol: Document 09/26/21 14:00 MB (Rec: 09/26/21 14:55 MB [id number]) Physical Therapy Current Condition Current Condition Evaluation Date 09/26/21 Treatment Diagnosis Hallucinations, weakness, falls Onset Date Appears acute on chronic M3 PT-IP Subjective Start: 09/26/21 08:19 Freq: Status: Active Protocol: Document 10/01/21 13:13 KS (Rec: 10/01/21 14:05 KS [id number]) Subjective Physical Therapy Visit Type Type Treatment Note Visit Start Time 13:13 Visit Stop Time 13:27 Total Visit Minutes 14 Notes limited in mobility due to orthostatic BP Number of GAMMA RAY OPERATOR Visits 2 Physical Therapy Visit Comments Patient Comments c/o neck pain M4 PT-IP Mobility and Gait Start: 09/26/21 08:19 Freq: Status: Active Protocol: Document 10/01/21 13:13 KS (Rec: 10/01/21 14:05 KS [id number]) PT-Transfer Assessment Sit to and From Stand Sit to and from Stand Minimal Assistance,1 Person Assistance,Use of Upper Extremities Equipment Transfer Assistive Device Gait Belt,Front Wheeled Walker Transfers Transfer Destination Bedside Commode Transfer Technique Ambulated w/ FWW Transfer Ability Level of Assist Minimal Assistance,1 Person Assistance,Use of Upper Extremities Comments Mobility Comments Pt in chair upon arrival from GAMMA RAY OPERATOR and CERTIFIED MEDICATION TECHNICIAN, BP 127/82. Min A for pt sit<>stand w/ FWW BP: 106/62. Pt denied lightheadedness. Performed 1x 30 second weight shifting followed by 2x [address], BP: 108/63 and continued to deny symptoms . Pt requested to wash hands at sink. Min A and mod cues for ~10 ft ambulation to sink w/ FWW and chair follow. Pt able to remain standing balance at sink for ~ 3 min for hand washing ans hair brushing, lateral lean to L pt states due to neck pain. Pt ambulated ~10 ft to BP cuff, BP:101/63, he then sat on BSC Min A and cues for slow descent. Reported fatigue following. Left in room w/ CERTIFIED MEDICATION TECHNICIAN present. Gait Assessment Gait Gait Assistance Required: Minimum Assistance Distance (Feet) 20 Assistive Devices Assistive Device Gait Belt,Front Wheeled Walker Gait Deviations General Gait Pattern Decreased Stride Length, Decreased Feet Clearance, Flexed Trunk,Lateral Trunk Lean Factors Limiting Gait Function Factors Limiting Gait Function Decreased Activity Tolerance, Decreased Strength, Incoordination,Poor Balance, Poor Safety Awareness Comments Gait Comments Please refer to mobility section for details. PT-Balance Assessment Sitting Balance and Reactions Static Sitting Balance Ability Poor Dynamic Sitting Balance Ability Poor Standing Balance and Reactions Static Standing Balance Ability Poor Dynamic Standing Balance Ability Poor Device Used fww M5 PT-IP Objective Assessments Start: 09/26/21 08:19 Freq: Status: Active Protocol: Document 09/29/21 14:26 DLM (Rec: 09/29/21 14:37 DLM [id number]) Orientation Orientation/Cognition Level of Alertness Alert Orientation Name,Birthday,Date,Place Language Function Ability No Deficits Noted Safety Awareness Decreased Safety Awareness M6 PT-IP Treatment Start: 09/26/21 08:19 Freq: Status: Active Protocol: Document 10/01/21 13:13 KS (Rec: 10/01/21 14:05 KS [id number]) Physical Therapy Treatment Education Education Provided Safety Other Treatments Other Treatment Performed Weight shifting, marching in place. Pt quick to fatigue. M7 PT-IP Assessment and Plan Start: 09/26/21 08:19 Freq: Status: Active Protocol: Document 10/01/21 13:13 KS (Rec: 10/01/21 14:05 KS [id number]) PT Summary Assessment and Plan Summary Impairments Pain,Strength,Balance, Coordination,Cognition,Bed Mobility,Transfers,Gait, Activity Tolerance Progress Towards Goals Slow Progress due to Medical Issues Assessment Summary Pt limited in mobility by low BP today. Able to perform sit< >Stand Min A and cues for hand placement. Pt orthostatic but stable following initial drop and asymptomatic. Ambulated ~ 20 ft w/ FWW Min A, unstable when ambulating. Continues to have poor safety awareness and improper use of FWW requiring cues. Will benefit from SNF to improve gait stability and functional independence. Goals Bed Mobility Goal Independent Transfer Goal Contact Guard Assistance Gait Goal Contact Guard Assistance Gait Distance 25 Days to Meet Goals 5 Frequency of Treatment Frequency Of Treatment Once a Day Treatment Plan Physical Therapy Treatment Plan Bed Mobility Training,Transfer Training,Gait Training, Therapeutic Exercise,Balance Retraining,Discharge Planning, Neuromuscular Re-ed, Coordination Retraining Precautions Other Precautions No hallucinations this visit, continue to monitor Recommendations To Nursing Amount of Assist Needed 1 Person Assist Discharge Recommendations PT Discharge Recommendations SNF Rehab Transportation Needs at Discharge Wheelchair/Cabulance
--- NOTE | 2021-10-01 13:45 | DIET.PN1 ---
Dietary Progress Note RD Note: 66y M screened by RD for LOS d5. Pt diagnosed with likely Lewey Body Dementia. POs have been 100% this hospitalization and chart review of weights has pt weight stable x2y. No acute nutrition needs identified at this time. Ht: 167.64 cm Wt: 93.5 kg BMI: 33.3 UBW: 94kg Last BM: 10/01/21 (10/01/21 12:00) MNA: J Luis Score: 18 Diet: 09/25/21 Breakfast Carbohydrate Consistent Diet Diet Modifications: Carbohydrate level: Medium (3 CHO) Nutrition Percent Meal Consumed 100% 10/01/21 08:36 Percent Meal Consumed 100% 09/30/21 19:05 Percent Meal Consumed 75% 09/30/21 18:00 Labs: RBC 3.91 X10^6/uL (4.5-5.9) L 09/29/21 04:35 Hgb 12.3 g/dL (13.5-17.5) L 09/29/21 04:35 Hct 36.2 % (41-53) L 09/29/21 04:35 Creatinine 1.25 mg/dL (0.66-1.25) 09/29/21 04:26 Hemoglobin A1c 7.8 % (4.0-6.0) H 09/26/21 06:00 Electronically Signed by: Kimberli Snyder 10/01/21 13:45 Clinical Dietitian [address] [id number]
--- NOTE | 2021-10-01 14:24 | CM.DPNOTE ---
Faxed referral packet to [facility] [place] per Yvonne and received fax conf. Laurie Luque CM Asst.
--- NOTE | 2021-10-01 14:48 | OT.IP.TRT ---
Current Diagnoses Unspecified dementia without behavioral disturbance (09/25/21) Occupational Therapy Treatment Note M2 OT-IP Current Condition Start: 09/28/21 10:16 Freq: Status: Active Protocol: Document 09/28/21 10:18 [facility] (Rec: 09/28/21 10:35 [facility] [id number]) Occupational Therapy Current Condition Current Condition Evaluation Date 09/28/21 Treatment Diagnosis Falls, decreased mobility. M3 OT- IP Subjective and Pain Start: 09/28/21 10:16 Freq: Status: Active Protocol: Document 10/01/21 14:52 [facility] (Rec: 10/01/21 14:59 [facility] [id number]) OT- Subjective Occupational Therapy Visit Type Type Treatment Note Visit Start Time 14:18 Visit Stop Time 14:48 Total Visit Minutes 30 Occupational Therapy Visit Comments Patient Comments Pt states wanting to use the toilet. Patient/Caregiver Goals To go to rehab. OT Pain Assessment Pain When Pain Assessed At Rest Pain Present Pain Present Pain Reported M4 OT- IP ADL's Start: 09/28/21 10:16 Freq: Status: Active Protocol: Document 10/01/21 14:52 [facility] (Rec: 10/01/21 14:59 [facility] [id number]) OT [id number] Comments OT Self-Feeding Comments Not meal time OT ADL-Grooming Comments OT Grooming Comments NOt performed. OT ADL-Toileting General Evaluation Areas Needing Assistance Manage Clothing Comments OT Toileting Comments Assist to help pull up his brief in the back. M6 OT- IP Functional Cognition Start: 09/28/21 10:16 Freq: Status: Active Protocol: Document 10/01/21 14:52 [facility] (Rec: 10/01/21 14:59 [facility] [id number]) Cognitive Factors Limiting Selfcare Function Cognitive Comments Cognitive Assessment Comments Pt is cooperative and pleasant and able to follow commands. Pt needing vc for FWW safety to keep the FWW in front of him at all times during mobility needs. M7 OT- IP Mobility and Balance Start: 09/28/21 10:16 Freq: Status: Active Protocol: Document 10/01/21 14:52 [facility] (Rec: 10/01/21 14:59 [facility] [id number]) OT- Bed Mobility Assessment Supine to Sit Supine to Sit Assist Standby Assistance,Head of Bed Elevated,Bedrails Scooting Scooting to Edge of Bed Standby Assistance,Head of Bed Elevated,Bedrails OT-Transfer Assessment Sit to and From Stand Sit to and from Stand Contact Guard Assistance Transfers Transfer Ability Minimal Assistance Technique Transfer Destination Bed,Bedside Commode,Chair Transfer Technique Stand Step Pivot Devices Transfer Assistive Devices Gait Belt,Front Wheeled Walker Comments Mobility Comments Pt states feeling woozy when standing as BP dropped from 140/62 to 113/70 and then opted to do BSC transfer. Pt unsteady on his feet for transfer and needing assist to help guide the FWW. OT- Balance Assessment Sitting Balance and Reactions Static Sitting Balance Ability Fair Dynamic Sitting Balance Ability Fair Standing Balance and Reactions Static Standing Balance Ability Poor Comments Other Balance Tests/Deviations/Treatment Pt heavily leans to the right, : pt attributes to his neck pain. M8 OT- IP Objective Assessments Start: 09/28/21 10:16 Freq: Status: Active Protocol: Document 09/28/21 10:18 [facility] (Rec: 09/28/21 10:35 [facility] [id number]) OT Strength Comments Strength Comments Pt at least 3-/5 during mobility needs not able to formally assess. OT- Coordination Assessment Comments Coordination Comments Decreased due to tremors and needing asisst to cut his food and open items on his try at this time. OT-Muscle Tone Assessment Comments Muscle Tone Comments Pt having tremors in in his hands. M9 OT- IP Assessment and Plan Start: 09/28/21 10:16 Freq: Status: Active Protocol: Document 10/01/21 14:52 [facility] (Rec: 10/01/21 14:59 [facility] [id number]) OT Summary Assessment and Plan Potential Rehabilitation Potential Fair Analytic Complexity at Evaluation Low Summary OT Impairments Balance,Functional Cognition, Functional Mobility,Self- Feeding,Grooming,Dressing, Toileting,Bathing,Toilet Transfers,Shower Transfers, Activity Tolerance Progress Towards Goals Slow Progress due to Medical Issues,Slow Progress due to Activity Tolerance,Slow Progress due to Cognition Assessment Summary Pt states agreeing to go to skilled rehab as feel not able to care for himself at this time. Goals Grooming Goal Independent Dressing Goal Independent Toileting Goal Independent Bathing Goal Independent Toilet Transfer Goal Independent Shower Transfer Goal Independent Days to Meet Goals 20 Frequency of Treatment Frequency Of Treatment Once a Day Treatment Plan OT Treatment Plan ADL Training,Functional Cognition Training,Functional Mobility,Patient/Family Education,Discharge Planning Other Treatment Recommendations and Next shower Treatment Focus Discharge Recommendations OT Discharge Recommendations SNF Rehab Transportation Needs at Discharge Private Vehicle,Wheelchair/ Cabulance
--- NOTE | 2021-10-01 16:01 | CM.DPC ---
DCP Continued: Patient currently LOS day #6.Per Dr. Guadalupe patient is medically stable to d/c to SNF. Patient has been in OBS. Patient has home health with [facility] and initially refused SNF. Now patient is saying he is agreeable to SNF. We have NO acceptance. Family did say they could keep eye patient. P: SNF attempted but no acceptance. Unclear at this point if insurance will even cover SNF. Son aware that patient needs to do Medicaid application. P: Anticipate home once provider in agreement. CM team in agreement to continue to make SNF referrals but at this time no takers. LCCSV reviewing again. MATEO
[2021-10-01] MEDS: NICOTINE 7 MG PATCH TOP (17:33)
[2021-10-01] MEDS: MELATONIN 3 MG TABLET 6 MG PO (22:08)
[2021-10-01] MEDS: TRAZODONE 50 MG TABLET 100 MG PO (22:20)
[2021-10-01] MEDS: SERTRALINE 50 MG TABLET PO (22:20)
[2021-10-01] MEDS: QUETIAPINE 25 MG TABLET PO (22:21)
[2021-10-01] MEDS: ATORVASTATIN 20 MG TABLET 40 MG PO (22:21)
[2021-10-02] VITALS (11 sets, daily range): BP systolic 101–171; BP diastolic 62–103; PULSE 66–96; RESP 18; TEMP 36.2–37; O2SAT 92–98
[2021-10-02] MEDS: SUCRALFATE 1 GM TABLET PO ×4 (09:23→20:37)
[2021-10-02] MEDS: CLOPIDOGREL 75 MG TABLET PO (09:27)
[2021-10-02] MEDS: FAMOTIDINE 20 MG TABLET PO ×2 (09:27→20:37)
[2021-10-02] MEDS: buPROPion XL 150 MG TAB 300 MG PO (09:27)
[2021-10-02] MEDS: FINASTERIDE 5 MG TABLET PO (09:27)
[2021-10-02] MEDS: TAMSULOSIN 0.4 MG CAPSULE 0.8 MG PO (09:27)
[2021-10-02] MEDS: NICOTINE 7 MG PATCH TOP (09:27)
[2021-10-02] MEDS: risperiDONE 0.25 MG TABLET 0.5 MG PO (09:27)
[2021-10-02] MEDS: LEVOTHYROXINE 125 MCG TABLET PO (09:32)
[2021-10-02] MEDS: ENOXAPARIN 40 MG/0.4 ML SYRINGE SUBCUT (09:32)
[2021-10-02] MEDS: SODIUM CHLORIDE 0.9% FLUSH 10 ML IV ×2 (09:36→20:38)
[2021-10-02] MEDS: INSULIN LISPRO 100 UNIT/ML 3ML VIAL SUBCUT ×4 (09:36→21:24)
--- NOTE | 2021-10-02 12:12 | OT.IP.TRT ---
Current Diagnoses Unspecified dementia without behavioral disturbance (09/25/21) Occupational Therapy Treatment Note M2 OT-IP Current Condition Start: 09/28/21 10:16 Freq: Status: Active Protocol: Document 09/28/21 10:18 [facility] (Rec: 09/28/21 10:35 [facility] [id number]) Occupational Therapy Current Condition Current Condition Evaluation Date 09/28/21 Treatment Diagnosis Falls, decreased mobility. M3 OT- IP Subjective and Pain Start: 09/28/21 10:16 Freq: Status: Active Protocol: Document 10/02/21 12:27 [facility] (Rec: 10/02/21 12:37 [facility] [id number]) OT- Subjective Occupational Therapy Visit Type Type Treatment Note Visit Start Time 11:40 Visit Stop Time 12:12 Total Visit Minutes 32 Occupational Therapy Visit Comments Patient Comments Pt willing to get up. Pt's BS 243 and given insulin by nursing. Patient/Caregiver Goals Pt realizes it is not safe for him to go home and live by himself anymore. OT Pain Assessment Pain When Pain Assessed At Rest Pain Present Pain Present Pain Reported M6 OT- IP Functional Cognition Start: 09/28/21 10:16 Freq: Status: Active Protocol: Document 10/02/21 12:27 [facility] (Rec: 10/02/21 12:37 [facility] [id number]) Cognitive Factors Limiting Selfcare Function Cognitive Comments Cognitive Assessment Comments Pt continues to have poor short term memory. Pt thought that OT was Dr. Guadalupe. Pt's son states pt has been forgetting to turn off the stove at home and noticed progressive decrease in safety awareness due to his decreased STM. M7 OT- IP Mobility and Balance Start: 09/28/21 10:16 Freq: Status: Active Protocol: Document 10/02/21 12:27 [facility] (Rec: 10/02/21 12:37 [facility] [id number]) OT- Bed Mobility Assessment Supine to Sit Supine to Sit Assist Minimal Assistance,1 Person Assistance,Head of Bed Elevated Scooting Scooting to Edge of Bed Minimal Assistance,1 Person Assistance OT-Transfer Assessment Sit to and From Stand Sit to and from Stand Moderate Assistance,1 Person Assistance Transfers Transfer Ability Moderate Assistance,Maximum Assistance,1 Person Assistance Technique Transfer Destination Bed,Chair Transfer Technique Stand Step Pivot Devices Transfer Assistive Devices Gait Belt,Front Wheeled Walker Comments Mobility Comments BP supine 134/70, sitting 102/ 54, sitting 127, and after transfer 113/62. Pt's son educated how to assist pt for transfer pt and had good awareness to hold and block the FWW and assist to stand to FWW and able to help guide the FWW and steady pt's balance while transferring pt to the recliner. Pt's sons just needing cues to proved pt cues to keep the FWW closer and to place his hands back to the recliner prior to sitting down. OT- Balance Assessment Sitting Balance and Reactions Static Sitting Balance Ability Poor Dynamic Sitting Balance Ability Poor Standing Balance and Reactions Static Standing Balance Ability Poor Comments Other Balance Tests/Deviations/Treatment Pt still leans to the right : while sitting at this edge of the bed and needing occasional DELFINA for balance. M8 OT- IP Objective Assessments Start: 09/28/21 10:16 Freq: Status: Active Protocol: Document 09/28/21 10:18 [facility] (Rec: 09/28/21 10:35 [facility] [id number]) OT Strength Comments Strength Comments Pt at least 3-/5 during mobility needs not able to formally assess. OT- Coordination Assessment Comments Coordination Comments Decreased due to tremors and needing assist to cut his food and open items on his try at this time. OT-Muscle Tone Assessment Comments Muscle Tone Comments Pt having tremors in in his hands. M9 OT- IP Assessment and Plan Start: 09/28/21 10:16 Freq: Status: Active Protocol: Document 10/02/21 12:27 [facility] (Rec: 10/02/21 12:37 [facility] [id number]) OT Summary Assessment and Plan Potential Rehabilitation Potential Fair Analytic Complexity at Evaluation Low Summary OT Impairments Balance,Functional Cognition, Functional Mobility,Self- Feeding,Grooming,Dressing, Toileting,Bathing,Toilet Transfers,Shower Transfers, Activity Tolerance Progress Towards Goals Slow Progress due to Medical Issues,Slow Progress due to Activity Tolerance,Slow Progress due to Cognition Assessment Summary Pt's son present for caregiver training and how to assist to assist pt for mobility needs. Pt's son able to transfer pt given cues. Pending if pt where to have son live with him 25/05 or go to his son's place 25/05, more training would be beneficial. At this time, pt would benefit from skilled rehab and eventually LTC facility. Goals Grooming Goal Independent Dressing Goal Minimal Assistance Toileting Goal Minimal Assistance Bathing Goal Minimal Assistance Toilet Transfer Goal Contact Guard Assistance Shower Transfer Goal Minimal Assistance Days to Meet Goals 25 Frequency of Treatment Frequency Of Treatment Once a Day Treatment Plan OT Treatment Plan ADL Training,Functional Cognition Training,Functional Mobility,Patient/Family Education,Discharge Planning Other Treatment Recommendations and Next shower Treatment Focus Discharge Recommendations OT Discharge Recommendations SNF Rehab,LTAC Transportation Needs at Discharge Wheelchair/Cabulance
--- NOTE | 2021-10-02 13:29 | PT.IPTN ---
Current Diagnoses Unspecified dementia without behavioral disturbance (09/25/21) Physical Therapy Treatment Note M2 PT-IP Current Condition Start: 09/26/21 08:19 Freq: Status: Active Protocol: Document 10/02/21 13:03 [facility] (Rec: 10/02/21 16:04 [facility] [id number]) Physical Therapy Current Condition Current Condition Evaluation Date 09/26/21 Treatment Diagnosis Hallucinations, weakness, falls Onset Date Appears acute on chronic M3 PT-IP Subjective Start: 09/26/21 08:19 Freq: Status: Active Protocol: Document 10/02/21 13:03 [facility] (Rec: 10/02/21 16:04 [facility] [id number]) Subjective Physical Therapy Visit Type Type Treatment Note Visit Start Time 13:03 Visit Stop Time 13:29 Total Visit Minutes 26 Notes Son in room, completed caregiver training including transfers only due to orthostatic hypotension. Vitals: seated: BP 123/68 HR 87 standin/ 44 HR 102 symptomatic seated 122/ 74 HR 89 standing post SPT to bed: 77/ 47 HR 97 supine in bed: 151/88 HR 92. Number of CLOTH WASHER Visits 1 Physical Therapy Visit Comments Patient Comments Pt alert willing to work with therapy but reports does get dizzy when standing up, even before in the hospital. Therapy Pain Assessment Pain Present Pain Present Denied Pain M4 PT-IP Mobility and Gait Start: 09/26/21 08:19 Freq: Status: Active Protocol: Document 10/02/21 13:03 [facility] (Rec: 10/02/21 16:04 [facility] [id number]) PT-Bed Mobility Assessment Sit to Supine Sit to Supine Contact Guard Assistance, Bedrails Scooting Scooting Up and Down in Bed Standby Assistance PT-Transfer Assessment Sit to and From Stand Sit to and from Stand Minimal Assistance,Moderate Assistance,1 Person Assistance ,Use of Upper Extremities Equipment Transfer Assistive Device Gait Belt,Front Wheeled Walker Orthotic/Prosthetic Devices or Brace: No Transfers Transfer Destination Bed,Chair Transfer Technique Stand Step Pivot Transfer Ability Level of Assist Minimal Assistance,Moderate Assistance,1 Person Assistance ,Use of Upper Extremities Comments Mobility Comments Pt seated in chair when arrived, son in room. Son donned gait belt on pt in sitting, cued scoot forward feet underneath him, sit>stand cued BUE on chair arms Mod A of son with cues for hip hinge forward to decrease retro lean, transition hands to fWW. Cued fulll standing CG - Min A for standing balance with cues COG more forward to decrease retro lean on heels, min A maintain. Pt became dizzy noted decrease in BP, returned to sit Mod A x1 and cues proper HP on chair improved symptoms and vitals. Sit>stand again Mod A come to stand and maintain standing, same retro lean. SPT chair>bed w/fWW support at times for FWW repositioning and lateral step up to HOB, verbal and contact cues for reaching back Min A for slow descent sit on bed. Sit>supine CGA and ableto reposition self center w/ bridging and use of bed rails. Pt had call light and all needs in reach with bed alarmed before left. Notified nursing of orthostatic hypotension. Gait Assessment Comments Gait Comments SPT only w/ FWW Mod A x1 due to symptomatic BP orthostatic hypotension. PT-Balance Assessment Sitting Balance and Reactions Static Sitting Balance Ability Good Dynamic Sitting Balance Ability Fair Standing Balance and Reactions Static Standing Balance Ability Poor Dynamic Standing Balance Ability Poor Device Used fww M5 PT-IP Objective Assessments Start: 09/26/21 08:19 Freq: Status: Active Protocol: Document 09/29/21 14:26 [facility] (Rec: 09/29/21 14:37 [facility] [id number]) Orientation Orientation/Cognition Level of Alertness Alert Orientation Name,Birthday,Date,Place Language Function Ability No Deficits Noted Safety Awareness Decreased Safety Awareness M6 PT-IP Treatment Start: 09/26/21 08:19 Freq: Status: Active Protocol: Document 10/01/21 13:13 [facility] (Rec: 10/01/21 14:05 [facility] [id number]) Physical Therapy Treatment Education Education Provided Safety Other Treatments Other Treatment Performed Weight shifting, marching in place. Pt quick to fatigue. M7 PT-IP Assessment and Plan Start: 09/26/21 08:19 Freq: Status: Active Protocol: Document 10/02/21 13:03 [facility] (Rec: 10/02/21 16:04 [facility] [id number]) PT Summary Assessment and Plan Potential Rehabilitation Potential Fair Status of Condition at Evaluation Unstable Summary Impairments Pain,Strength,Balance, Coordination,Cognition,Bed Mobility,Transfers,Gait, Activity Tolerance Progress Towards Goals Slow Progress due to Medical Issues,Slow Progress due to Activity Tolerance Assessment Summary Pt more alert this tx, no hallucinations this tx. Pt limited in mobility by low BP today. Able to perform sit<> Stand Mod A x1 and cues for hand placement forward hip hinge w/ son support. Pt orthostatic in standing very symptomatic, recovers sitting / laying down. Pt to unstable vital for ambulating reassessment. Continues to have poor safety awareness and improper use of FWW requiring cues. Will benefit from SNF to improve gait stability and functional independence. Goals Bed Mobility Goal Independent Transfer Goal Contact Guard Assistance Gait Goal Contact Guard Assistance Gait Distance 25 Days to Meet Goals 5 Frequency of Treatment Frequency Of Treatment Once a Day Treatment Plan Physical Therapy Treatment Plan Bed Mobility Training,Transfer Training,Gait Training, Therapeutic Exercise,Balance Retraining,Discharge Planning, Neuromuscular Re-ed, Coordination Retraining Other Recommendations and Next Treatment check BP,bed mob, transfers, Focus gait further distance. Precautions Other Precautions No hallucinations this visit, continue to monitor Recommendations To Nursing Amount of Assist Needed 1 Person Assist Discharge Recommendations PT Discharge Recommendations SNF Rehab Equipment Needed for Home Before FWW for home when safe to DC. Discharge Transportation Needs at Discharge Wheelchair/Cabulance
--- NOTE | 2021-10-02 13:33 | P.PN_ITS ---
Subjective Subjective Date Patient Seen: 10/02/21 Interval history: 66-year-old male admitted to the hospital for confusion, frequent falls, memory deficits, and possible chest pain. Patient denies chest pain at this time. We have identified that the patient does have orthostatic hypotension, he also has an intention tremor, he has had multiple falls, and increasing memory deficits. Patient also has hallucinations intermittently. He has also had depression and anxiety. He was recently seen by Dr. alvares a psychiatrist who made excellent recommendations to his management. Patient is quite unsteady when standing. He nearly falls. He is felt to be unsafe for discharge home and independent living. Patient remains orthostatic, blood pressure drops 50 points from lying to standing patient is intermittently symptomatic Exam Vital Signs (past 8 hours): - 10/02/21 08:41 10/02/21 09:04 10/02/21 09:21 Temperature 97.2 F L Pulse Rate 73 Pulse Rate [Orthostatic Lying] 95 H Pulse Rate [Orthostatic Sitting] 84 Pulse Rate [Orthostatic Standing] 90 Respiratory Rate 18 Blood Pressure 144/92 H Blood Pressure [Orthostatic Lying] 101/67 Blood Pressure [Orthostatic Sitting] 171/103 H Blood Pressure [Orthostatic Standing] 148/88 H Pulse Oximetry 96 92 10/02/21 10:20 10/02/21 12:13 Temperature 97.7 F Pulse Rate 96 H Pulse Rate [Orthostatic Lying] Pulse Rate [Orthostatic Sitting] Pulse Rate [Orthostatic Standing] Respiratory Rate 18 Blood Pressure 113/62 Blood Pressure [Orthostatic Lying] Blood Pressure [Orthostatic Sitting] Blood Pressure [Orthostatic Standing] Pulse Oximetry 95 92 Oxygen Delivery Method Room Air Oxygen Flow Rate 0 Narrative Exam Narrative: Pleasant elderly male lying in bed in no obvious distress Resp Other: Lungs clear to auscultation Cardio Other: Cardiac exam regular rate and rhythm normal S1-S2 with a 2/6 systolic ejection GI Other: Abdomen soft nontender nondistended Extrem Other: Extremity no edema Objective Labs Result Diagrams: 09/29/21 04:35 09/29/21 04:26 COUNT INCLUDES THE [facility] Medical History Bilateral otitis externa Cellulitis Chicken pox (1956) Chickenpox (1956) Chronic cough COPD (chronic obstructive pulmonary disease) Coronary artery disease (2006) Depression (2008) Diabetes (1994) Eczema Foot pain GERD (gastroesophageal reflux disease) (2012) Gout Hearing reduced Hip pain History of recurrent TIAs Hyperlipidemia Hypertension Hypothyroidism Kidney disease (2009) Measles (1955) Measles (1955) Mental health assessment declined Mumps (195) Mumps (1958) Neuropathy Obstructive sleep apnea Otitis externa Screening for malignant neoplasm of colon Shoulder pain Sleep apnea Status post myocardial infarction Steatosis Strain of muscle of right groin region (03/30/18) Type 2 diabetes mellitus Well adult exam Surgical History Anesthesia History of heart artery stent (2006) History of heart artery stent (2010) Hx of shoulder surgery (2005) Family History Brother Age: 67 Diabetes mellitus Hyperlipidemia Mother Heart disease Hypertension Hyperlipidemia Diabetes mellitus Grandmother Diabetes mellitus Brother No problems noted. Sister Breast cancer Social History marital status: details: 3 years ago household members: none lives independently: Yes housing: apartment Smoking Status: Current every day smoker Tobacco: How many years used: 45 alcohol intake: current Assessment & Plan Assessment & Plan narrative: 1. 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 Acute metabolic encephalopathy -likely related to Lewy body dementia -Seroquel started -appreciate psychiatric consultation -will discontinue risperidone, continue low-dose Zoloft 3. Anxiety and depression -medications as above 4. Hallucination -no evidence of psychosis -suspect related to underlying Lewy body dementia -[facility] 5. Hyperlipidemia -continue statin 6. Type 2 diabetes -will increase bolus insulin, continue basal insulin 7. BPH -continue finasteride 8. Nicotine addiction -continue nicotine patch Disposition will continue to work on placement Time Spent With Patient Critical Care time: I spent a total of [] minutes of critical care time on this patient's care today; this time is exclusive of procedural time.
--- NOTE | 2021-10-02 13:52 | CM.DPNOTE ---
Addendum entered by LYN Nieves 10/02/21 15:02: ADD: In addition, provided Who Will Decide brochure to son Cy and strongly encouraged him to discuss DPOA and financial POA w/his Dad (patient). JW Original Note: DCP Note Reviewed chart. Placed call to son Cy this morning, updated that patient may be DC today and that at this time, no SNF secured. Cy scheduled to arrive at at 1100 for healthcare network consultant training. Cy explains patient cannot DC home w/he, his and their 5 children, however, he may be able to provide some assist to his Dad at his home, depending on level of care Patient discussed in multidisciplinary rounds. Dr Guadalupe does not feel DC home is appropriate at this time and requests continued SNF search Spoke w/Rupinder at [facility] briefly this morning; she had referral and was reviewing w/her clinical team Met w/patient and son Cy at bedside, had lengthy conversation, reviewed DCP options, reviewed short and group home care plans. Provided patient and son w/an [employer]/long-term care planning application and requested it be completed IVELISSE so that this RATE SUPERVISOR could fax w/expedited request In addition, learned the following from patient and [employer] social and political studies professor Marta Velasquez; -Patient has WSO2, copy of card obtained (Active?) -Patient receives food stamps, LM for Home and Community Services, patient's provider one # ? -Patient is not established with a [facility] provider, has no assigned SWer, is not service connected so does not have SNF or Home care services available to him Discussed this referral w/laura Bucio at [facility] and Iris at [facility], both reviewing. LYN Lozoya
--- NOTE | 2021-10-02 14:31 | PC.NURSE ---
Day shift: Discussed with Dr Guadalupe Pt's insulin orders. These meds to be adjusted by MD. WIll continue to monitor chem BG's and update MD.
[2021-10-02] MEDS: TRAZODONE 50 MG TABLET 100 MG PO (20:37)
[2021-10-02] MEDS: INSULIN GLARGINE 100 UNIT/ML 3ML PEN 10 UNIT SUBCUT (20:37)
[2021-10-02] MEDS: ATORVASTATIN 20 MG TABLET 40 MG PO (20:37)
[2021-10-02] MEDS: SERTRALINE 50 MG TABLET PO (20:37)
[2021-10-02] MEDS: MELATONIN 3 MG TABLET 6 MG PO (20:37)
[2021-10-02] MEDS: QUETIAPINE 25 MG TABLET PO (20:37)
--- NOTE | 2021-10-03 00:15 | PC.NURSE ---
Patient states they are seeing things that are not there and are becoming disoriented by them. Patient reorientates quickly and maintains clear, coherent speak patterns.
[2021-10-03] MEDS: LEVOTHYROXINE 125 MCG TABLET PO (06:47)
[2021-10-03 07:00] VITALS: O2SAT 97
[2021-10-03] MEDS: INSULIN LISPRO 100 UNIT/ML 3ML VIAL SUBCUT ×4 (08:14→21:05)
[2021-10-03] MEDS: SUCRALFATE 1 GM TABLET PO ×4 (08:18→21:08)
[2021-10-03] MEDS: FINASTERIDE 5 MG TABLET PO (08:18)
[2021-10-03] MEDS: buPROPion XL 150 MG TAB 300 MG PO (08:19)
[2021-10-03] MEDS: FAMOTIDINE 20 MG TABLET PO ×2 (08:19→21:08)
[2021-10-03] MEDS: ENOXAPARIN 40 MG/0.4 ML SYRINGE SUBCUT (08:19)
[2021-10-03] MEDS: NICOTINE 7 MG PATCH TOP (08:20)
[2021-10-03] MEDS: CLOPIDOGREL 75 MG TABLET PO (08:20)
[2021-10-03] MEDS: TAMSULOSIN 0.4 MG CAPSULE 0.8 MG PO (08:20)
[2021-10-03] MEDS: SODIUM CHLORIDE 0.9% FLUSH 10 ML IV ×2 (08:21→21:09)
[2021-10-03] MEDS: polyethylene glycoL 3350 17 GM POWD.PACK PO (08:21)
[2021-10-03 10:00] VITALS: BP 103/63; BP 169/91; BP 71/50; PULSE 109; PULSE 87; PULSE 96
--- NOTE | 2021-10-03 11:16 | CM.DPNOTE ---
Addendum entered by LYN Nieves 10/03/21 13:29: ADD: [facility] now full, they will keep this referral in case beds become available KAYKAY Original Note: DCP Note Attempt at SNF placement continues. Confirmed the following w/[facility] admitting team: Patient has the Medicaid pending spend down program with $5,571.00 remaining.? -[facility] has declined this referral -[facility] cannot take [facility] -[facility] has no beds -[facility] at [facility] has no beds until next week [facility] attempting other SNF options including [facility]. KAYKAY
[2021-10-03 11:20] VITALS: BP 137/81; PULSE 91; RESP 18; TEMP 36.6; O2SAT 96
--- NOTE | 2021-10-03 11:38 | CM.DPNOTE ---
Faxed SNF referral packets to all of [place] except [facility], and also to [facility] per [facility]. Received fax conf. on all. DASHAWN Beant.
--- NOTE | 2021-10-03 11:39 | PT.IPTN ---
Current Diagnoses Unspecified dementia without behavioral disturbance (09/25/21) Physical Therapy Treatment Note M2 PT-IP Current Condition Start: 09/26/21 08:19 Freq: Status: Active Protocol: Document 10/02/21 13:03 SP (Rec: 10/02/21 16:04 SP [id number]) Physical Therapy Current Condition Current Condition Evaluation Date 09/26/21 Treatment Diagnosis Hallucinations, weakness, falls Onset Date Appears acute on chronic M3 PT-IP Subjective Start: 09/26/21 08:19 Freq: Status: Active Protocol: Document 10/03/21 11:23 KS (Rec: 10/03/21 12:31 KS [id number]) Subjective Physical Therapy Visit Type Type Treatment Note Visit Start Time 11:23 Visit Stop Time 11:39 Total Visit Minutes 16 Number of FILTRATION OPERATOR Visits 2 Physical Therapy Visit Comments Patient Comments Pt agreeable to work w/ therapy. M4 PT-IP Mobility and Gait Start: 09/26/21 08:19 Freq: Status: Active Protocol: Document 10/03/21 11:23 KS (Rec: 10/03/21 12:31 KS [id number]) PT-Bed Mobility Assessment Supine to Sit Supine to Sit Minimal Assistance,Moderate Assistance,1 Person Assistance ,Bedrails Sit to Supine Sit to Supine Contact Guard Assistance Scooting Scooting to Edge of Bed Contact Guard Assistance PT-Transfer Assessment Sit to and From Stand Sit to and from Stand Minimal Assistance,1 Person Assistance,Use of Upper Extremities Equipment Transfer Assistive Device Gait Belt,Front Wheeled Walker Orthotic/Prosthetic Devices or Brace: No Transfers Transfer Destination Bed Transfer Technique Lateral steps Transfer Ability Level of Assist Minimal Assistance,Moderate Assistance,1 Person Assistance ,Use of Upper Extremities Comments Mobility Comments Pt in bed upon arrival from therapy. BP: 169/91 in supine. Min to Mod A for sup<>sit and CGA for scooting EOB. Pts BP sitting EOB 106/63, reassesed and 125/73 sitting. He then sit<>stand w/ FWW and Min A w/ cues for hand placement. Pt w / positive knee buckling when standing but recovered Min A. Pts BP in standing 71/50. Instructed pt to sit back down . Pt then sit<>stand again and took 5x small steps laterally towards HOB. CGA for sit<>sup , BP: 137/81 in supine. He then compelted 2x10 ankle pumps, and 1x10 quad sets, glute sets, and SLR. Pt left in bed w/ all needs in reach and alarm on. Gait Assessment Comments Gait Comments Lateral steps towards HOB only due to symptomatic low BP. PT-Balance Assessment Sitting Balance and Reactions Static Sitting Balance Ability Good Dynamic Sitting Balance Ability Fair Standing Balance and Reactions Static Standing Balance Ability Poor Dynamic Standing Balance Ability Poor Device Used fww M5 PT-IP Objective Assessments Start: 09/26/21 08:19 Freq: Status: Active Protocol: Document 09/29/21 14:26 DLM (Rec: 09/29/21 14:37 DLM [id number]) Orientation Orientation/Cognition Level of Alertness Alert Orientation Name,Birthday,Date,Place Language Function Ability No Deficits Noted Safety Awareness Decreased Safety Awareness M6 PT-IP Treatment Start: 09/26/21 08:19 Freq: Status: Active Protocol: Document 10/03/21 11:23 KS (Rec: 10/03/21 12:31 KS [id number]) Physical Therapy Treatment Exercises Exercises Ankle Pumps,Gluteal Sets,Quad Sets,Straight Leg Raises Education Education Provided Safety M7 PT-IP Assessment and Plan Start: 09/26/21 08:19 Freq: Status: Active Protocol: Document 10/03/21 11:23 KS (Rec: 10/03/21 12:31 KS [id number]) PT Summary Assessment and Plan Potential Rehabilitation Potential Fair Status of Condition at Evaluation Unstable Summary Impairments Pain,Strength,Balance, Coordination,Cognition,Bed Mobility,Transfers,Gait, Activity Tolerance Progress Towards Goals Slow Progress due to Medical Issues,Slow Progress due to Activity Tolerance Assessment Summary Pt continues to be limited in mobility due to low BP. Min A for sup<>sit and sit<>stand, CGA for scooting and sit<>sup. Pt able to tolerate small lateral steps to reposition towards HOB, but unsafe to ambulate due to BP: 71/50 when standing. Pt performed LE exercises to promote blood flow and strengthening. He has poor safety awareness, weakness, and is at a high risk for falls. He will require SNF to improve gait stability and functional independence. Goals Bed Mobility Goal Independent Transfer Goal Contact Guard Assistance Gait Goal Contact Guard Assistance Gait Distance 25 Days to Meet Goals 5 Frequency of Treatment Frequency Of Treatment Once a Day Treatment Plan Physical Therapy Treatment Plan Bed Mobility Training,Transfer Training,Gait Training, Therapeutic Exercise,Balance Retraining,Discharge Planning, Neuromuscular Re-ed, Coordination Retraining Other Recommendations and Next Treatment check BP,bed mob, transfers, Focus gait further distance. Precautions Other Precautions No hallucinations this visit, continue to monitor Recommendations To Nursing Amount of Assist Needed 1 Person Assist Discharge Recommendations PT Discharge Recommendations SNF Rehab Transportation Needs at Discharge Wheelchair/Cabulance
--- NOTE | 2021-10-03 12:55 | OT.IP.TRT ---
Current Diagnoses Unspecified dementia without behavioral disturbance (09/25/21) Occupational Therapy Treatment Note M2 OT-IP Current Condition Start: 09/28/21 10:16 Freq: Status: Active Protocol: Document 09/28/21 10:18 [facility] (Rec: 09/28/21 10:35 [facility] [id number]) Occupational Therapy Current Condition Current Condition Evaluation Date 09/28/21 Treatment Diagnosis Falls, decreased mobility. M3 OT- IP Subjective and Pain Start: 09/28/21 10:16 Freq: Status: Active Protocol: Document 10/03/21 12:57 [facility] (Rec: 10/03/21 13:02 [facility] [id number]) OT- Subjective Occupational Therapy Visit Type Type Treatment Note Visit Start Time 11:25 Visit Stop Time 11:56 Total Visit Minutes 31 Occupational Therapy Visit Comments Patient Comments Pt agreed to change out his gown. Patient/Caregiver Goals Pt realizes it is not safe for him to go home and live by himself anymore. OT Pain Assessment Pain When Pain Assessed At Rest Pain Present Pain Present Pain Reported M4 OT- IP ADL's Start: 09/28/21 10:16 Freq: Status: Active Protocol: Document 10/03/21 12:57 [facility] (Rec: 10/03/21 13:02 [facility] [id number]) OT [id number] General Evaluation Self-Feeding Ability Independent Comments OT Self-Feeding Comments set-up assist OT ADL-Dressing General Eval Upper Body Dressing Ability Standby Assistance Comments OT Dressing Comments Pt able to change out his gown . M7 OT- IP Mobility and Balance Start: 09/28/21 10:16 Freq: Status: Active Protocol: Document 10/03/21 12:57 [facility] (Rec: 10/03/21 13:02 [facility] [id number]) OT- Bed Mobility Assessment Supine to Sit Supine to Sit Assist Standby Assistance,1 Person Assistance Scooting Scooting to Edge of Bed Standby Assistance,1 Person Assistance OT-Transfer Assessment Sit to and From Stand Sit to and from Stand Minimal Assistance,1 Person Assistance Comments Mobility Comments BP with HOB up 122/70, sitting at edge of bed 88/55 and then 106/69 and after standing 80/ 48, pt was symptomatic during sitting and standing. OT- Balance Assessment Sitting Balance and Reactions Static Sitting Balance Ability Fair Dynamic Sitting Balance Ability Poor Standing Balance and Reactions Static Standing Balance Ability Poor Comments Other Balance Tests/Deviations/Treatment Pt able to sit on the edge of : the bed on his own without assist today. . M9 OT- IP Assessment and Plan Start: 09/28/21 10:16 Freq: Status: Active Protocol: Document 10/03/21 12:57 [facility] (Rec: 10/03/21 13:02 [facility] [id number]) OT Summary Assessment and Plan Potential Rehabilitation Potential Fair Analytic Complexity at Evaluation Low Summary OT Impairments Balance,Functional Cognition, Functional Mobility,Self- Feeding,Grooming,Dressing, Toileting,Bathing,Toilet Transfers,Shower Transfers, Activity Tolerance Progress Towards Goals Slow Progress due to Medical Issues,Slow Progress due to Activity Tolerance,Slow Progress due to Cognition Assessment Summary Pt continues to have low bp readings during sitting and standing which limits pt ability to participate in therapies. Pt is motivated and cooperative to participate. Goals Grooming Goal Independent Dressing Goal Minimal Assistance Toileting Goal Minimal Assistance Bathing Goal Minimal Assistance Toilet Transfer Goal Contact Guard Assistance Shower Transfer Goal Minimal Assistance Days to Meet Goals 25 Frequency of Treatment Frequency Of Treatment Once a Day Treatment Plan OT Treatment Plan ADL Training,Functional Cognition Training,Functional Mobility,Patient/Family Education,Discharge Planning Discharge Recommendations OT Discharge Recommendations SNF Rehab,[facility]AC Transportation Needs at Discharge Wheelchair/Cabulance
--- NOTE | 2021-10-03 17:35 | PM.PN.1 ---
Subjective Subjective Date Patient Seen: 10/03/21 Interval history: 66-year-old male admitted to the hospital for confusion, frequent falls. Patient likely has a diagnosis of Lewy body dementia. He also has underlying Parkinson's. Addition the patient has orthostatic hypotension. Significantly when sitting. This makes him lightheaded and puts him at risk for falls. The patient would like to go to [facility] discharge for rehabilitation before returning home. He does report continued visual hallucinations. At times they are somewhat disturbing most often not. Exam Vital Signs (past 8 hours): - 10/03/21 10:00 10/03/21 11:20 Temperature 97.9 F Pulse Rate 91 H Pulse Rate [Orthostatic Lying] 109 H Pulse Rate [Orthostatic Sitting] 87 Pulse Rate [Orthostatic Standing] 96 H Respiratory Rate 18 Blood Pressure 137/81 Blood Pressure [Orthostatic Lying] 71/50 L Blood Pressure [Orthostatic Sitting] 169/91 H Blood Pressure [Orthostatic Standing] 103/63 Pulse Oximetry 96 Oxygen Delivery Method Room Air Oxygen Flow Rate 0 Narrative Exam Narrative: Pleasant gentleman lying in bed in no obvious distress Resp Other: Decreased breath sounds, scattered rhonchi, end-expiratory wheezing Cardio Other: Cardiac exam: Regular rate and rhythm normal S1-S2 GI Other: Abdomen: Soft nontender nondistended Extrem Other: Extremities: No edema Objective Labs Result Diagrams: 09/29/21 04:35 09/29/21 04:26 [facility] Medical History Bilateral otitis externa Cellulitis Chicken pox (7) Chickenpox (1956) Chronic cough COPD (chronic obstructive pulmonary disease) Coronary artery disease (2006) Depression (2008) Diabetes (1994) Eczema Foot pain GERD (gastroesophageal reflux disease) (2012) Gout Hearing reduced Hip pain History of recurrent TIAs Hyperlipidemia Hypertension Hypothyroidism Kidney disease (2009) Measles (6) Measles (6) Mental health assessment declined Mumps (9) Mumps (1958) Neuropathy Obstructive sleep apnea Otitis externa Screening for malignant neoplasm of colon Shoulder pain Sleep apnea Status post myocardial infarction Steatosis Strain of muscle of right groin region (03/30/18) Type 2 diabetes mellitus Well adult exam Surgical History Anesthesia History of heart artery stent (2006) History of heart artery stent (2010) Hx of shoulder surgery (2005) Family History Brother Age: 67 Diabetes mellitus Hyperlipidemia Mother Heart disease Hypertension Hyperlipidemia Diabetes mellitus Grandmother Diabetes mellitus Brother No problems noted. Sister Breast cancer Social History marital status: details: 3 years ago household members: none lives independently: Yes housing: apartment Smoking Status: Current every day smoker Tobacco: How many years used: 45 alcohol intake: current Assessment & Plan Assessment & Plan narrative: 66-year-old male admitted to the hospital for confusion, frequent falls, hallucinations, and intention tremor -this likely represents Lewy body dementia -felt to be a Parkinson's plus syndrome -patient with autonomic dysfunction manifested as orthostatic hypotension which is likely contributing to his frequent fall -patient also has an underlying gait disorder, balance abnormality, likely related to his Lewy body dementia -will continue physical therapy occupational therapy -blood pressure medications have been discontinued to improve orthostatic hypotension -patient remains orthostatic -he continues to have significant gait disturbance 2. Acute metabolic encephalopathy -likely related to Lewy body dementia -Seroquel started -appreciate psychiatric consultation -will discontinue risperidone, continue low-dose Zoloft 3. Anxiety and depression -medications as above 4. Hallucination -no evidence of psychosis -suspect related to underlying Lewy body dementia -irma 5. Hyperlipidemia -continue statin 6. Type 2 diabetes -will increase bolus insulin, continue basal insulin 7. BPH -continue finasteride 8. Nicotine addiction/COPD -continue inhaler -continue nicotine patch Disposition Continue to work with social work for placement Time Spent With Patient Critical Care time: I spent a total of [] minutes of critical care time on this patient's care today; this time is exclusive of procedural time.
[2021-10-03 19:00] VITALS: O2SAT 96
[2021-10-03 20:24] VITALS: BP 131/86; PULSE 75; RESP 20; TEMP 36.6; O2SAT 98
[2021-10-03] MEDS: INSULIN GLARGINE 100 UNIT/ML 3ML PEN 15 UNIT SUBCUT (21:04)
[2021-10-03] MEDS: MELATONIN 3 MG TABLET 6 MG PO (21:06)
[2021-10-03] MEDS: TRAZODONE 50 MG TABLET 100 MG PO (21:07)
[2021-10-03] MEDS: SERTRALINE 50 MG TABLET PO (21:07)
[2021-10-03] MEDS: QUETIAPINE 25 MG TABLET PO (21:08)
[2021-10-03] MEDS: ATORVASTATIN 20 MG TABLET 40 MG PO (21:08)
[2021-10-04 04:30] VITALS: BP 103/81; BP 139/81; BP 88/53; PULSE 108; PULSE 77; PULSE 89
[2021-10-04] MEDS: LEVOTHYROXINE 125 MCG TABLET PO (06:20)
[2021-10-04 06:26] LABS: Add Manual Diff / Slide Review NO; Basophils Absolute Auto 0 /uL (0-100); Basophils Percent Auto 0.2 % (0-2); Eosinophils Absolute Auto 200 /uL (0-450); Eosinophils Percent Auto 2.9 % (2-4); Hematocrit 37.9 % (41-53); Hemoglobin 13.5 g/dL (13.5-17.5); Lymphocytes Absolute Auto 1500 /uL (1100-4500); Lymphocytes Percent Auto 19.1 % (25-40); Mean Corpuscular HGB Conc 35.6 % (30-36); Mean Corpuscular Hemoglobin 32.6 PG (26-34); Mean Corpuscular Volume 91.5 fL (80-100); Monocytes Absolute Auto 700 /uL (0-900); Monocytes Percent Auto 8.1 % (3-14); Neutrophils Absolute Auto 5600 /uL (1500-7000); Neutrophils Percent Auto 69.7 % (50-75); Platelet Count 206 X10^3/uL (150-400); Red Blood Cell Count 4.15 X10^6/uL (4.5-5.9); Red Cell Distribution Width 14.4 % (11.6-14.8)
[2021-10-04 06:57] LABS: Alanine Aminotransferase 34 IU/L (<50); Albumin Globulin Ratio 1.2 (1.0-2.8); Alkaline Phosphatase 75 U/L (38-126); Aspartate Aminotransferase 29 IU/L (17-59); BUN Creatinine Ratio 32.4 (6-22); Bilirubin Total 0.6 mg/dL (0.2-1.3); Blood Urea Nitrogen 33 mg/dL (9-20); Calcium 9.8 mg/dL (8.4-10.2); Carbon Dioxide 28 mmol/L (22-32); Chloride 100 mmol/L (98-107); Estimated Glomerular Filt Rate > 60.0 mL/min (>60); Globulin 3.4 g/dL (1.7-4.1); Glucose 255 mg/dL (80-110); HEMOLYSIS < 15 (0-50); Potassium 4.5 mmol/L (3.4-5.1); Sodium 135 mmol/L (137-145); Total Protein 7.4 g/dL (6.3-8.2)
[2021-10-04 07:45] VITALS: O2SAT 95
[2021-10-04] MEDS: SUCRALFATE 1 GM TABLET PO ×4 (08:00→21:09)
[2021-10-04] MEDS: INSULIN LISPRO 100 UNIT/ML 3ML VIAL SUBCUT ×4 (08:01→21:13)
[2021-10-04] MEDS: polyethylene glycoL 3350 17 GM POWD.PACK PO (09:04)
[2021-10-04] MEDS: FINASTERIDE 5 MG TABLET PO (09:04)
[2021-10-04] MEDS: CLOPIDOGREL 75 MG TABLET PO (09:04)
[2021-10-04] MEDS: buPROPion XL 150 MG TAB 300 MG PO (09:04)
[2021-10-04] MEDS: NICOTINE 7 MG PATCH TOP (09:04)
[2021-10-04] MEDS: FAMOTIDINE 20 MG TABLET PO ×2 (09:04→21:09)
[2021-10-04] MEDS: TAMSULOSIN 0.4 MG CAPSULE 0.8 MG PO (09:04)
[2021-10-04] MEDS: ENOXAPARIN 40 MG/0.4 ML SYRINGE SUBCUT (09:05)
[2021-10-04] MEDS: SODIUM CHLORIDE 0.9% FLUSH 10 ML IV ×2 (09:06→21:26)
[2021-10-04 09:58] VITALS: BP 117/71; PULSE 81; RESP 17; TEMP 36.4; O2SAT 95
--- NOTE | 2021-10-04 11:32 | PT.IPTN ---
Current Diagnoses Unspecified dementia without behavioral disturbance (09/25/21) Physical Therapy Treatment Note M2 PT-IP Current Condition Start: 09/26/21 08:19 Freq: Status: Active Protocol: Document 10/02/21 13:03 SP (Rec: 10/02/21 16:04 SP [id number]) Physical Therapy Current Condition Current Condition Evaluation Date 09/26/21 Treatment Diagnosis Hallucinations, weakness, falls Onset Date Appears acute on chronic M3 PT-IP Subjective Start: 09/26/21 08:19 Freq: Status: Active Protocol: Document 10/04/21 11:08 KS (Rec: 10/04/21 13:21 KS [id number]) Subjective Physical Therapy Visit Type Type Treatment Note Visit Start Time 11:08 Visit Stop Time 11:32 Total Visit Minutes 24 Number of PRIMARY CARE PEDIATRICIAN Visits 3 Physical Therapy Visit Comments Patient Comments Pt agreeable to work w/ therapy. M4 PT-IP Mobility and Gait Start: 09/26/21 08:19 Freq: Status: Active Protocol: Document 10/04/21 11:08 KS (Rec: 10/04/21 13:21 KS [id number]) PT-Transfer Assessment Sit to and From Stand Sit to and from Stand Minimal Assistance,1 Person Assistance,Use of Upper Extremities Equipment Transfer Assistive Device Gait Belt,Front Wheeled Walker Orthotic/Prosthetic Devices or Brace: No Transfers Transfer Destination Chair Transfer Technique Pt ambulated w/ FWW Transfer Ability Level of Assist Minimal Assistance,Moderate Assistance,1 Person Assistance ,Use of Upper Extremities Comments Mobility Comments Pt in bed upon arrival from [facility] and [employer]. BP: 127/81 in supine. Mod A for sup<>sit and Min A for scooting EOB. Pts BP: 101/61 sitting w/ reported feelings of dizziness. Dizziness mostly subsided, pt sit<>stand w/ Min A w/ FWW and BP: 97/65, denied increase in symptoms. Pt then ambulated ~ 12 ft w/ chair follow and reported feelng lightheaded and requested to sit. Mod A for stand<>sit w/ FWW for slow descent. Pts BP: 92/59. Pt then completed 1x10 bilateral LAQ, seated marching, SLR, glute sets, quad sets, and ankle pumps. Pt w/ intention tremor throughout treatment. Left in chair w/ alarm on and all needs in reach. Gait Assessment Gait Gait Assistance Required: Minimum Assistance,Moderate Assistance,1 Person Assist Distance (Feet) 12 Assistive Devices Assistive Device Gait Belt,Front Wheeled Walker Orthotic/Prosthetic Devices or Brace: No Gait Deviations General Gait Pattern Ataxic,Decreased Stride Length ,Decreased Feet Clearance, Lateral Trunk Lean,Narrow Based Gait Factors Limiting Gait Function Factors Limiting Gait Function Decreased Activity Tolerance, Decreased Sensation,Decreased Strength,Difficulty Following Directions,Incoordination,Poor Balance,Poor Safety Awareness Comments Gait Comments Pt ambulated ~12 ft w/ FWW before needing to sit due to symtpomatic low BP. He leans laterally to L side and is incoordinated and impulsive while ambulating at times needing Mod A for FWW management and to maintain standing balance. PT-Balance Assessment Sitting Balance and Reactions Static Sitting Balance Ability Good Dynamic Sitting Balance Ability Fair Standing Balance and Reactions Static Standing Balance Ability Poor Dynamic Standing Balance Ability Poor Device Used fww M5 PT-IP Objective Assessments Start: 09/26/21 08:19 Freq: Status: Active Protocol: Document 09/29/21 14:26 DLM (Rec: 09/29/21 14:37 DLM [id number]) Orientation Orientation/Cognition Level of Alertness Alert Orientation Name,Birthday,Date,Place Language Function Ability No Deficits Noted Safety Awareness Decreased Safety Awareness M6 PT-IP Treatment Start: 09/26/21 08:19 Freq: Status: Active Protocol: Document 10/04/21 11:08 KS (Rec: 10/04/21 13:21 KS [id number]) Physical Therapy Treatment Exercises Exercises Ankle Pumps,Gluteal Sets,Quad Sets,Straight Leg Raises, Seated Knee Flexion/Extension Education Education Provided Safety Other Treatments Other Treatment Performed Seated marching M7 PT-IP Assessment and Plan Start: 09/26/21 08:19 Freq: Status: Active Protocol: Document 10/04/21 11:08 KS (Rec: 10/04/21 13:21 KS [id number]) PT Summary Assessment and Plan Potential Rehabilitation Potential Fair Status of Condition at Evaluation Unstable Summary Impairments Pain,Strength,Balance, Coordination,Cognition,Bed Mobility,Transfers,Gait, Activity Tolerance Progress Towards Goals Slow Progress due to Medical Issues,Slow Progress due to Activity Tolerance Assessment Summary Pt continues to be limited in mobility due to orthostatic BP , but was able to ambulate ~12 ft today w/ FWW and Min to Mod A. He had intention tremor throughout treatment further limiting mobility. Able to tolerate LE strengthening exercises well w/ verbal and tactile cues. He will require SNF to improve gait stability and functional mobility. Goals Bed Mobility Goal Independent Transfer Goal Contact Guard Assistance Gait Goal Contact Guard Assistance Gait Distance 25 Days to Meet Goals 5 Frequency of Treatment Frequency Of Treatment Once a Day Treatment Plan Physical Therapy Treatment Plan Bed Mobility Training,Transfer Training,Gait Training, Therapeutic Exercise,Balance Retraining,Discharge Planning, Neuromuscular Re-ed, Coordination Retraining Other Recommendations and Next Treatment check BP,bed mob, transfers, Focus gait further distance. Precautions Other Precautions No hallucinations this visit, continue to monitor Recommendations To Nursing Amount of Assist Needed 2 Person Assist Discharge Recommendations PT Discharge Recommendations SNF Rehab Transportation Needs at Discharge Wheelchair/Cabulance
--- NOTE | 2021-10-04 12:58 | CM.DPNOTE ---
[facility] (does not accept his insur.) [facility] (closed) unable to accept pt. Laurie Luque CM Asst.
--- NOTE | 2021-10-04 13:05 | OT.IP.TRT ---
Current Diagnoses Unspecified dementia without behavioral disturbance (09/25/21) Occupational Therapy Treatment Note M2 OT-IP Current Condition Start: 09/28/21 10:16 Freq: Status: Active Protocol: Document 09/28/21 10:18 [facility] (Rec: 09/28/21 10:35 [facility] [id number]) Occupational Therapy Current Condition Current Condition Evaluation Date 09/28/21 Treatment Diagnosis Falls, decreased mobility. M3 OT- IP Subjective and Pain Start: 09/28/21 10:16 Freq: Status: Active Protocol: Document 10/04/21 13:10 [facility] (Rec: 10/04/21 13:17 [facility] [id number]) OT- Subjective Occupational Therapy Visit Type Type Treatment Note Visit Start Time 12:47 Visit Stop Time 13:05 Total Visit Minutes 18 Occupational Therapy Visit Comments Patient Comments Pt wanting to have a bowel movement and agreed to sponge off. Patient/Caregiver Goals To get better. OT Pain Assessment Pain When Pain Assessed During Mobility Pain Present Pain Present Pain Reported M4 OT- IP ADL's Start: 09/28/21 10:16 Freq: Status: Active Protocol: Document 10/04/21 13:10 [facility] (Rec: 10/04/21 13:17 [facility] [id number]) OT [id number] Comments OT Self-Feeding Comments Not at meal time. OT ADL-Grooming Comments OT Grooming Comments Pt able to was his face after set-up. OT ADL-Oral Care Comments Oral Care Comments NOt performed. OT ADL-Dressing General Eval Lower Body Dressing Ability Maximum Assistance Areas Needing Assistance Socks OT ADL-Toileting General Evaluation Toileting Ability Maximum Assistance Areas Needing Assistance Manage Clothing,Perform Perineal Hygiene Comments OT Toileting Comments MODA X 1 to stand to FWW and another assist for hygiene and brief management needs. OT ADL-Bathing Bathing Type Bathing Type Sponge Bath General Evaluation Bathing Ability Maximal Assistance Areas Needing Assistance Wash/Dry Back,Wash/Dry Perineal Area,Wash/Dry Lower Extremities M6 OT- IP Functional Cognition Start: 09/28/21 10:16 Freq: Status: Active Protocol: Document 10/04/21 13:10 [facility] (Rec: 10/04/21 13:17 [facility] [id number]) Cognitive Factors Limiting Selfcare Function Cognitive Comments Cognitive Assessment Comments Pt still having decreased short term memory and decreased control of his movements due to tremors. Pt needing consistent reminders for FWW, hand placement and other safety awareness cues. M7 OT- IP Mobility and Balance Start: 09/28/21 10:16 Freq: Status: Active Protocol: Document 10/04/21 13:10 [facility] (Rec: 10/04/21 13:17 [facility] [id number]) OT-Transfer Assessment Sit to and From Stand Sit to and from Stand Minimal Assistance,Moderate Assistance,2 Person Assistance Transfers Transfer Ability Moderate Assistance,2 Person Assistance Technique Transfer Destination Bed,Bedside Commode,Chair Transfer Technique Stand Step Pivot Devices Transfer Assistive Devices Gait Belt,Front Wheeled Walker Comments Mobility Comments Today pt very shaky on his feet and leaning into posterior tilt and weight on his heels and needing assist and cues from falling backwards. At this time 2 person assist for transfers as pt is very inconsistent with his mobility needs. OT- Gait Assessment Comments Gait Ability Comments Transfer only at this time due to low BP OT- Balance Assessment Sitting Balance and Reactions Static Sitting Balance Ability Fair Dynamic Sitting Balance Ability Poor Standing Balance and Reactions Static Standing Balance Ability Poor M8 OT- IP Objective Assessments Start: 09/28/21 10:16 Freq: Status: Active Protocol: Document 09/28/21 10:18 [facility] (Rec: 09/28/21 10:35 [facility] [id number]) OT Strength Comments Strength Comments Pt at least 3-/5 during mobility needs not able to formally assess. OT- Coordination Assessment Comments Coordination Comments Decreased due to tremors and needing assist to cut his food and open items on his try at this time. OT-Muscle Tone Assessment Comments Muscle Tone Comments Pt having tremors in in his hands. M9 OT- IP Assessment and Plan Start: 09/28/21 10:16 Freq: Status: Active Protocol: Document 10/04/21 13:10 [facility] (Rec: 10/04/21 13:17 [facility] [id number]) OT Summary Assessment and Plan Potential Rehabilitation Potential Fair Analytic Complexity at Evaluation Low Summary OT Impairments Balance,Functional Cognition, Functional Mobility,Self- Feeding,Grooming,Dressing, Toileting,Bathing,Toilet Transfers,Shower Transfers, Activity Tolerance Progress Towards Goals Slow Progress due to Medical Issues,Slow Progress due to Activity Tolerance,Slow Progress due to Cognition Assessment Summary Pt able to tolerate transfers and sponge bath while seated [place] the [facility] Pt needing 2person assist for the transfer today due to pt very unsteady and leaning on his heel when up on his feet. Pt is not safe to go home and would be best to go to LTC at this time. Pt would benefit from SNF to maximize his safety and mobility and ADL needs. Pt is very cooperative and pleasant. Goals Grooming Goal Independent Dressing Goal Minimal Assistance Toileting Goal Minimal Assistance Bathing Goal Minimal Assistance Toilet Transfer Goal Contact Guard Assistance Shower Transfer Goal Minimal Assistance Days to Meet Goals 18 Frequency of Treatment Frequency Of Treatment Once a Day Treatment Plan OT Treatment Plan ADL Training,Functional Cognition Training,Functional Mobility,Patient/Family Education,Discharge Planning Discharge Recommendations OT Discharge Recommendations SNF Rehab,LTAC Transportation Needs at Discharge Wheelchair/Cabulance
[2021-10-04 16:00] VITALS: BP 101/61; BP 127/81; BP 97/65; PULSE 79; PULSE 90; PULSE 94
--- NOTE | 2021-10-04 18:37 | PM.PN.1 ---
Subjective Subjective Date Patient Seen: 10/04/21 Interval history: 66-year-old male with probable Lewy body dementia, orthostatic hypotension, frequent falls, admitted to the hospital with confusion, hallucinations and frequent falls The patient reports he continues to have hallucinations however they are not alarming to him. He is still quite unsteady on his feet. And he is still orthostatic although this has improved somewhat since discontinuation of his blood pressure medication Exam Vital Signs (past 8 hours): - 10/04/21 16:00 Pulse Rate [Orthostatic Lying] 79 Pulse Rate [Orthostatic Sitting] 90 Pulse Rate [Orthostatic Standing] 94 H Blood Pressure [Orthostatic Lying] 127/81 Blood Pressure [Orthostatic Sitting] 101/61 Blood Pressure [Orthostatic Standing] 97/65 Oxygen Delivery Method Room Air Oxygen Flow Rate 0 Narrative Exam Narrative: Pleasant male sitting in a chair in no obvious distress Resp Other: Lungs clear to auscultation Cardio Other: Cardiac exam regular rate and rhythm normal S1-S2 GI Other: Abdomen soft nontender Skin Other: Patient with severe psoriasis around his ear lobe and portions of the face Extrem Other: Extremity no edema Objective Labs Result Diagrams: 10/04/21 06:05 10/04/21 06:05 Labs: Laboratory Results - last 24 hr 10/04/21 10/04/21 06:05 06:05 WBC 8.0 RBC 4.15 L Hgb 13.5 Hct 37.9 L MCV 91.5 MCH 32.6 MCHC 35.6 RDW 14.4 Plt Count 206 Neut % (Auto) 69.7 Lymph % (Auto) 19.1 L Brewster % (Auto) 8.1 Eos % (Auto) 2.9 Baso % (Auto) 0.2 Neut # (Auto) 5600 Lymph # (Auto) 1500 Brewster # (Auto) 700 Eos # (Auto) 200 Baso # (Auto) 0 Sodium 135 L Potassium 4.5 Chloride 100 Carbon Dioxide 28 BUN 33 H Creatinine 1.02 Estimated GFR > 60.0 BUN/Creatinine Ratio 32.4 H Glucose 255 H Calcium 9.8 Total Bilirubin 0.6 AST 29 ALT 34 Alkaline Phosphatase 75 Total Protein 7.4 Albumin 4.0 Globulin 3.4 Albumin/Globulin Ratio 1.2 [facility] Medical History Bilateral otitis externa Cellulitis Chicken pox (1956) Chickenpox (1956) Chronic cough COPD (chronic obstructive pulmonary disease) Coronary artery disease (2006) Depression (2009) Diabetes (1994) Eczema Foot pain GERD (gastroesophageal reflux disease) (2012) Gout Hearing reduced Hip pain History of recurrent TIAs Hyperlipidemia Hypertension Hypothyroidism Kidney disease (2009) Measles (1955) Measles (1955) Mental health assessment declined Mumps (1958) Mumps (1958) Neuropathy Obstructive sleep apnea Otitis externa Screening for malignant neoplasm of colon Shoulder pain Sleep apnea Status post myocardial infarction Steatosis Strain of muscle of right groin region (03/30/18) Type 2 diabetes mellitus Well adult exam Surgical History Anesthesia History of heart artery stent (2006) History of heart artery stent (2010) Hx of shoulder surgery (2005) Family History Brother Age: 67 Diabetes mellitus Hyperlipidemia Mother Heart disease Hypertension Hyperlipidemia Diabetes mellitus Grandmother Diabetes mellitus Brother No problems noted. 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 Acute metabolic encephalopathy, present on admission, now improved -likely related to Lewy body dementia -Seroquel started -appreciate psychiatric consultation -will discontinue risperidone, continue low-dose Zoloft 3. Anxiety and depression -medications as above 4. Hallucination -no evidence of psychosis -suspect related to underlying Lewy body dementia -radhika 5. Hyperlipidemia -continue statin 6. Type 2 diabetes -will increase bolus insulin, continue basal insulin 7. BPH -continue finasteride 8. Nicotine addiction/COPD -continue inhaler -continue nicotine patch Disposition, case management continuing to look for placement Time Spent With Patient Critical Care time: I spent a total of [] minutes of critical care time on this patient's care today; this time is exclusive of procedural time.
[2021-10-04] MEDS: TRAZODONE 50 MG TABLET 100 MG PO (21:09)
[2021-10-04] MEDS: SERTRALINE 50 MG TABLET PO (21:09)
[2021-10-04] MEDS: MELATONIN 3 MG TABLET 6 MG PO (21:09)
[2021-10-04] MEDS: ATORVASTATIN 20 MG TABLET 40 MG PO (21:10)
[2021-10-04] MEDS: QUETIAPINE 25 MG TABLET PO (21:10)
[2021-10-04] MEDS: SENNOSIDES 8.6 MG TABLET 17.2 MG PO (21:10)
[2021-10-04] MEDS: INSULIN GLARGINE 100 UNIT/ML 3ML PEN 20 UNIT SUBCUT (21:12)
[2021-10-04 22:50] VITALS: O2SAT 95
[2021-10-05 01:51] VITALS: BP 139/83; PULSE 83; RESP 16; O2SAT 93
[2021-10-05] MEDS: LEVOTHYROXINE 125 MCG TABLET PO (05:25)
[2021-10-05 05:42] VITALS: BP 130/82; PULSE 84; RESP 18; TEMP 36.3; O2SAT 95
--- NOTE | 2021-10-05 07:45 | P.PN_ITS ---
Subjective Subjective Interval history: Patient reports feeling well today. He reports coming more to terms with his diagnosis of likely Lewy body dementia, and is understandably still fearful of the dx. He reports having a visual hallucination of the TV falling yesterday, and of there being smoke in the room. Exam Vital Signs (past 8 hours): Oxygen Delivery Method Room Air Oxygen Flow Rate 0 Const Other: Patient sitting up in chair upon my entering the room, eating breakfast, and in no apparent acute distress. Eyes Other: No scleral icterus appreciated. Neck Other: No carotid bruits heard. Resp Other: Diminished breath sounds bilaterally. No adventitious breath sounds appreciated. Cardio Other: Regular rate and rhythm, with S1 and S2 heard with no extra heart sounds or murmurs auscultated. GI Other: Soft, non-distended, non-tender. Bowel sounds present. Extrem Other: No peripheral edema noted. Psych Other: Alert and oriented to person, place, time and situation. Good insight. Objective Labs Result Diagrams: 10/04/21 06:05 10/04/21 06:05 [facility] Medical History Bilateral otitis externa Cellulitis Chicken pox (1956) Chickenpox (1956) Chronic cough COPD (chronic obstructive pulmonary disease) Coronary artery disease (2006) Depression (2008) Diabetes (1994) Eczema Foot pain GERD (gastroesophageal reflux disease) (2012) Gout Hearing reduced Hip pain History of recurrent TIAs Hyperlipidemia Hypertension Hypothyroidism Kidney disease (2009) Measles (1955) Measles (1955) Mental health assessment declined Mumps (1958) Mumps (1958) Neuropathy Obstructive sleep apnea Otitis externa Screening for malignant neoplasm of colon Shoulder pain Sleep apnea Status post myocardial infarction Steatosis Strain of muscle of right groin region (03/30/18) Type 2 diabetes mellitus Well adult exam Surgical History Anesthesia History of heart artery stent (2006) History of heart artery stent (2010) Hx of shoulder surgery (2005) Family History Brother Age: 67 Diabetes mellitus Hyperlipidemia Mother Heart disease Hypertension Hyperlipidemia Diabetes mellitus Grandmother Diabetes mellitus Brother No problems noted. Sister Breast cancer Social History marital status: details: 3 years ago household members: none lives independently: Yes housing: apartment Smoking Status: Current every day smoker Tobacco: How many years used: 45 alcohol intake: current Assessment & Plan Assessment & Plan narrative: 66-year-old male admitted to the hospital for confusion, frequent falls, hallucinations, and intention tremor 1. 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 Acute metabolic encephalopathy, present on admission, no improved -likely related to Lewy body dementia -Seroquel started -appreciate psychiatric consultation -will discontinue risperidone, continue low-dose Zoloft, and avoid benzodiazepenes, as they can exacerbate his dementia 3. Anxiety and depression -medications as above 4. Hallucinations -no evidence of psychosis -suspect related to underlying Lewy body dementia -slums 5. Hyperlipidemia -continue statin 6. Type 2 diabetes -will increase bolus insulin, continue basal insulin 7. BPH -continue finasteride, will hold tamsulosin given propensity toward orthostatic hypotension 8. Nicotine addiction/COPD -continue inhaler -continue nicotine patch Disposition, case management looking for placement Time Spent With Patient Critical Care time: I spent a total of [] minutes of critical care time on this patient's care today; this time is exclusive of procedural time.
[2021-10-05] MEDS: ENOXAPARIN 40 MG/0.4 ML SYRINGE SUBCUT (08:38)
[2021-10-05] MEDS: polyethylene glycoL 3350 17 GM POWD.PACK PO (08:39)
[2021-10-05] MEDS: buPROPion XL 150 MG TAB 300 MG PO (08:39)
[2021-10-05] MEDS: TAMSULOSIN 0.4 MG CAPSULE 0.8 MG PO (08:39)
[2021-10-05] MEDS: FINASTERIDE 5 MG TABLET PO (08:39)
[2021-10-05] MEDS: NICOTINE 7 MG PATCH TOP (08:39)
[2021-10-05] MEDS: CLOPIDOGREL 75 MG TABLET PO (08:39)
[2021-10-05] MEDS: SODIUM CHLORIDE 0.9% FLUSH 10 ML IV ×2 (08:39→21:35)
[2021-10-05] MEDS: FAMOTIDINE 20 MG TABLET PO ×2 (08:39→21:34)
--- NOTE | 2021-10-05 08:39 | CM.DPNOTE ---
DCP Note Kaylee at [facility] continues to consider patient. Barriers: this patient is unvaccinated and even if vaccinated here would not be fully vaccinated for another 2 weeks. Which means he would need an isolation room for 2 weeks, and this room is not located near the nurse station at [facility]. D/t patient's intermittent confusion and need for redirection and reminders from staff, this may be an inappropriate room if not properly staffed. Will continue SNF search. Patient remains calm and compliant w/care JW
[2021-10-05] MEDS: INSULIN LISPRO 100 UNIT/ML 3ML VIAL SUBCUT ×4 (08:40→21:18)
[2021-10-05] MEDS: INSULIN GLARGINE 100 UNIT/ML 3ML PEN 20 UNIT SUBCUT ×2 (08:40→21:18)
[2021-10-05] MEDS: SUCRALFATE 1 GM TABLET PO ×4 (08:44→21:33)
[2021-10-05 09:22] VITALS: O2SAT 95
--- NOTE | 2021-10-05 10:17 | OT.IP.TRT ---
Current Diagnoses Unspecified dementia without behavioral disturbance (09/25/21) Occupational Therapy Treatment Note M2 OT-IP Current Condition Start: 09/28/21 10:16 Freq: Status: Active Protocol: Document 09/28/21 10:18 [facility] (Rec: 09/28/21 10:35 [facility] [id number]) Occupational Therapy Current Condition Current Condition Evaluation Date 09/28/21 Treatment Diagnosis Falls, decreased mobility. M3 OT- IP Subjective and Pain Start: 09/28/21 10:16 Freq: Status: Active Protocol: Document 10/05/21 10:12 [facility] (Rec: 10/05/21 10:17 [facility] [id number]) OT- Subjective Occupational Therapy Visit Type Type Treatment Note Visit Start Time 09:37 Visit Stop Time 10:02 Total Visit Minutes 25 Occupational Therapy Visit Comments Patient Comments Pt requesting to have a bowel movement. Patient/Caregiver Goals To get better. OT Pain Assessment Pain When Pain Assessed At Rest Pain Present Pain Present Denied Pain M4 OT- IP ADL's Start: 09/28/21 10:16 Freq: Status: Active Protocol: Document 10/05/21 10:12 [facility] (Rec: 10/05/21 10:17 [facility] [id number]) OT [id number] Comments OT Self-Feeding Comments Not at meal time. OT ADL-Grooming Comments OT Grooming Comments Pt able to was his face after set-up. OT ADL-Oral Care Comments Oral Care Comments NOt performed. OT ADL-Dressing General Eval Lower Body Dressing Ability Maximum Assistance Areas Needing Assistance Socks OT ADL-Toileting General Evaluation Toileting Ability Maximum Assistance Areas Needing Assistance Manage Clothing,Perform Perineal Hygiene Comments OT Toileting Comments DELFINA X 1 to stand to FWW and another assist for hygiene and brief management needs. M5 OT- IP IADL's Start: 09/28/21 10:16 Freq: Status: Active Protocol: Document 09/28/21 10:18 [facility] (Rec: 09/28/21 10:35 [facility] [id number]) OT-Instrumental Activities of Daily Living Home Safety Awareness Home Safety Comments Pt needing increased time to figure out home safety situations. At this time as pt is very groggy and unsteady on his feet that it would be best for someone to assist pt for all his needs. M6 OT- IP Functional Cognition Start: 09/28/21 10:16 Freq: Status: Active Protocol: Document 10/05/21 10:12 [facility] (Rec: 10/05/21 10:17 [facility] [id number]) Cognitive Factors Limiting Selfcare Function Cognitive Comments Cognitive Assessment Comments Pt needing constant cues for safety at this time. M7 OT- IP Mobility and Balance Start: 09/28/21 10:16 Freq: Status: Active Protocol: Document 10/05/21 10:12 [facility] (Rec: 10/05/21 10:17 [facility] [id number]) OT-Transfer Assessment Sit to and From Stand Sit to and from Stand Moderate Assistance,1 Person Assistance Transfers Transfer Ability Moderate Assistance,1 Person Assistance,2 Person Assistance Technique Transfer Destination Bed,Bedside Commode,Chair Transfer Technique Stand Step Pivot Devices Transfer Assistive Devices Gait Belt,Front Wheeled Walker Comments Mobility Comments Pt able to stand with MODA X 1 from the recliner and with cues to slow down able to transfer with MODA X1 assist for balance and assist to guide the FWW. On the way back to the recliner pt needing MODA X 2 especially when trying to turn, pt tends to get his weight on his heels and looses his balance backwards. BP in the recliner and after transfer to [facility] 93/54. OT- Balance Assessment Sitting Balance and Reactions Static Sitting Balance Ability Fair Dynamic Sitting Balance Ability Poor Standing Balance and Reactions Static Standing Balance Ability Poor M8 OT- IP Objective Assessments Start: 09/28/21 10:16 Freq: Status: Active Protocol: Document 09/28/21 10:18 [facility] (Rec: 09/28/21 10:35 [facility] [id number]) OT Strength Comments Strength Comments Pt at least 3-/5 during mobility needs not able to formally assess. OT- Coordination Assessment Comments Coordination Comments Decreased due to tremors and needing asisst to cut his food and open items on his try at this time. OT-Muscle Tone Assessment Comments Muscle Tone Comments Pt having tremors in in his hands. M9 OT- IP Assessment and Plan Start: 09/28/21 10:16 Freq: Status: Active Protocol: Document 10/05/21 10:12 [facility] (Rec: 10/05/21 10:17 [facility] [id number]) OT Summary Assessment and Plan Potential Rehabilitation Potential Fair Analytic Complexity at Evaluation Low Summary OT Impairments Balance,Functional Cognition, Functional Mobility,Self- Feeding,Grooming,Dressing, Toileting,Bathing,Toilet Transfers,Shower Transfers, Activity Tolerance Progress Towards Goals Slow Progress due to Medical Issues,Slow Progress due to Activity Tolerance,Slow Progress due to Cognition Assessment Summary Pt able to move better when consciously slowing down and able to give pt cues what to do step by step, however as pt tires pt requiring two person assist for needs. Goals Grooming Goal Independent Dressing Goal Minimal Assistance Toileting Goal Minimal Assistance Bathing Goal Minimal Assistance Toilet Transfer Goal Contact Guard Assistance Shower Transfer Goal Minimal Assistance Days to Meet Goals 17 Frequency of Treatment Frequency Of Treatment Once a Day Treatment Plan OT Treatment Plan ADL Training,Functional Cognition Training,Functional Mobility,Patient/Family Education,Discharge Planning Discharge Recommendations OT Discharge Recommendations SNF Rehab,LTAC Transportation Needs at Discharge Wheelchair/Cabulance
--- NOTE | 2021-10-05 11:14 | PT.IPTN ---
Current Diagnoses Unspecified dementia without behavioral disturbance (09/25/21) Physical Therapy Treatment Note M2 PT-IP Current Condition Start: 09/26/21 08:19 Freq: Status: Active Protocol: Document 10/02/21 13:03 SP (Rec: 10/02/21 16:04 SP [id number]) Physical Therapy Current Condition Current Condition Evaluation Date 09/26/21 Treatment Diagnosis Hallucinations, weakness, falls Onset Date Appears acute on chronic M3 PT-IP Subjective Start: 09/26/21 08:19 Freq: Status: Active Protocol: Document 10/05/21 10:47 RBD (Rec: 10/05/21 13:31 RBD [id number]) Subjective Physical Therapy Visit Type Type Treatment Note Visit Start Time 10:47 Visit Stop Time 11:14 Total Visit Minutes 27 Number of OTA Visits 4 Physical Therapy Visit Comments Patient Comments Pt agreeable to work w/ therapy. M4 PT-IP Mobility and Gait Start: 09/26/21 08:19 Freq: Status: Active Protocol: Document 10/05/21 10:47 RBD (Rec: 10/05/21 13:31 RBD [id number]) PT-Bed Mobility Assessment Sit to Supine Sit to Supine Contact Guard Assistance Scooting Scooting Up and Down in Bed Contact Guard Assistance PT-Transfer Assessment Sit to and From Stand Sit to and from Stand Minimal Assistance,Moderate Assistance,1 Person Assistance ,Use of Upper Extremities Equipment Transfer Assistive Device Gait Belt,Front Wheeled Walker Orthotic/Prosthetic Devices or Brace: No Transfers Transfer Destination Bed,Chair Transfer Technique Pt ambulated w/ FWW Transfer Ability Level of Assist Minimal Assistance,Moderate Assistance,1 Person Assistance ,Use of Upper Extremities Comments Mobility Comments Pt in chair upon arrival from PTAs. BP: 117/71 in sitting. Mod A for sit<>stand w/ FWW. BP: 74/53 in standing w/ report of dizziness. Min A stand<>sit w/ decrease in dizzness. BP: 126/76 upon sitting. Pt performed ~10 LAQ bilateraly. BP: 103/58 in sitting. Performed 5 Sit<> stand w/ FWW and Min A. BP: 117/63 in standing, denied increase in symptoms. Ambulated ~20ft w/ FWW Mod A and chair follow. Pt reported increase in dizzyness and BP: 82/60. Pt verbilized reduciton in symtoms and was able to transfer to bed w/ Min A and FWW. Pt left in bed w/ all needs in reach and bed alarm on. Gait Assessment Gait Gait Assistance Required: Minimum Assistance,Moderate Assistance,1 Person Assist Distance (Feet) 20 Assistive Devices Assistive Device Gait Belt,Front Wheeled Walker Orthotic/Prosthetic Devices or Brace: No Gait Deviations General Gait Pattern Ataxic,Decreased Stride Length ,Decreased Feet Clearance, Narrow Based Gait Factors Limiting Gait Function Factors Limiting Gait Function Decreased Activity Tolerance, Decreased Sensation,Decreased Strength,Incoordination,Poor Balance Comments Gait Comments Pt required seated rests due to symtomatic low BP. Ambulated ~ 20 needing Min - Mod A and required cueing for reduction in speed during ambulation to mantain stability. Pt continues to have incoordination during ambulation. PT-Balance Assessment Sitting Balance and Reactions Static Sitting Balance Ability Good Dynamic Sitting Balance Ability Fair Standing Balance and Reactions Static Standing Balance Ability Fair Dynamic Standing Balance Ability Poor Device Used fww M5 PT-IP Objective Assessments Start: 09/26/21 08:19 Freq: Status: Active Protocol: Document 09/29/21 14:26 DLM (Rec: 09/29/21 14:37 DLM [id number]) Orientation Orientation/Cognition Level of Alertness Alert Orientation Name,Birthday,Date,Place Language Function Ability No Deficits Noted Safety Awareness Decreased Safety Awareness M6 PT-IP Treatment Start: 09/26/21 08:19 Freq: Status: Active Protocol: Document 10/05/21 10:47 RBD (Rec: 10/05/21 13:31 RBD [id number]) Physical Therapy Treatment Exercises Exercises Seated Knee Flexion/Extension Education Education Provided Safety Other Treatments Other Treatment Performed 5x sit<>stands M7 PT-IP Assessment and Plan Start: 09/26/21 08:19 Freq: Status: Active Protocol: Document 10/05/21 10:47 RBD (Rec: 10/05/21 13:31 RBD [id number]) PT Summary Assessment and Plan Potential Rehabilitation Potential Fair Status of Condition at Evaluation Unstable Summary Impairments Pain,Strength,Balance, Coordination,Cognition,Bed Mobility,Transfers,Gait, Activity Tolerance Progress Towards Goals Slow Progress due to Medical Issues,Slow Progress due to Activity Tolerance Assessment Summary Pt continues to be limited in mobility due to orthostatic BP . Able to ambulate ~20 ft w/ FWW Min - Mod A and chair follow. He will require SNF to improve gait stability and functional mobility. Goals Bed Mobility Goal Independent Transfer Goal Contact Guard Assistance Gait Goal Contact Guard Assistance Gait Distance 25 Days to Meet Goals 5 Frequency of Treatment Frequency Of Treatment Once a Day Treatment Plan Physical Therapy Treatment Plan Bed Mobility Training,Transfer Training,Gait Training, Therapeutic Exercise,Balance Retraining,Discharge Planning, Neuromuscular Re-ed, Coordination Retraining Other Recommendations and Next Treatment check BP,bed mob, transfers, Focus gait further distance. Precautions Other Precautions No hallucinations this visit, continue to monitor Recommendations To Nursing Amount of Assist Needed 2 Person Assist Discharge Recommendations PT Discharge Recommendations SNF Rehab Transportation Needs at Discharge Wheelchair/Cabulance
[2021-10-05 17:22] VITALS: BP 119/76; PULSE 84; RESP 17; TEMP 36.8; O2SAT 95
[2021-10-05 18:25] VITALS: BP 103/58; BP 117/63; BP 82/60; PULSE 103; PULSE 93; PULSE 97
[2021-10-05 20:52] VITALS: BP 143/75; PULSE 72; RESP 16; TEMP 36.8; O2SAT 96
[2021-10-05] MEDS: TRAZODONE 50 MG TABLET 100 MG PO (21:33)
[2021-10-05] MEDS: MELATONIN 3 MG TABLET 6 MG PO (21:33)
[2021-10-05] MEDS: QUETIAPINE 25 MG TABLET PO (21:34)
[2021-10-05] MEDS: SERTRALINE 50 MG TABLET PO (21:34)
[2021-10-05] MEDS: ATORVASTATIN 20 MG TABLET 40 MG PO (21:34)
[2021-10-06] MEDS: LEVOTHYROXINE 125 MCG TABLET PO (06:28)
--- NOTE | 2021-10-06 07:53 | P.PN_ITS ---
Subjective Subjective Interval history: Patient reports feeling well this morning. Denies having any acute complaints. He is pending placement. Exam Vital Signs (past 8 hours): Oxygen Delivery Method Room Air Oxygen Flow Rate 0 Narrative Exam Narrative: Const Other: Patient sitting up in chair upon my entering the room, eating breakfast, and in no apparent acute distress. Eyes Other: No scleral icterus appreciated. Neck Other: No carotid bruits heard. Resp Other: Diminished breath sounds bilaterally. No adventitious breath sounds appreciated. Cardio Other: Regular rate and rhythm, with S1 and S2 heard with no extra heart sounds or murmurs auscultated. GI Other: Soft, non-distended, non-tender. Bowel sounds present. Extrem Other: No peripheral edema noted. Psych Other: Alert and oriented to person, place, time and situation. Good insight. Objective Labs Result Diagrams: 10/04/21 06:05 10/04/21 06:05 [facility] Medical History Bilateral otitis externa Cellulitis Chicken pox (1956) Chickenpox (1956) Chronic cough COPD (chronic obstructive pulmonary disease) Coronary artery disease (2006) Depression (2008) Diabetes (1994) Eczema Foot pain GERD (gastroesophageal reflux disease) (2012) Gout Hearing reduced Hip pain History of recurrent TIAs Hyperlipidemia Hypertension Hypothyroidism Kidney disease (2009) Measles (1955) Measles (1955) Mental health assessment declined Mumps (1958) Mumps (1958) Neuropathy Obstructive sleep apnea Otitis externa Screening for malignant neoplasm of colon Shoulder pain Sleep apnea Status post myocardial infarction Steatosis Strain of muscle of right groin region (03/30/18) Type 2 diabetes mellitus Well adult exam Surgical History Anesthesia History of heart artery stent (2006) History of heart artery stent (2010) Hx of shoulder surgery (2005) Family History Brother Age: 67 Diabetes mellitus Hyperlipidemia Mother Heart disease Hypertension Hyperlipidemia Diabetes mellitus Grandmother Diabetes mellitus Brother No problems noted. Sister Breast cancer Social History marital status: details: 3 years ago household members: none lives independently: Yes housing: apartment Smoking Status: Current every day smoker Tobacco: How many years used: 45 alcohol intake: current Assessment & Plan Assessment & Plan narrative: 66-year-old male admitted to the hospital for confusion, frequent falls, hallucinations, and intention tremor 1. 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 Acute metabolic encephalopathy, present on admission, no improved -likely related to Lewy body dementia -Seroquel started -appreciate psychiatric consultation -will discontinue risperidone, continue low-dose Zoloft, and avoid benzodiazepenes, as they can exacerbate his dementia 3. Anxiety and depression -medications as above 4. Hallucinations -no evidence of psychosis -suspect related to underlying Lewy body dementia -slums 5. Hyperlipidemia -continue statin 6. Type 2 diabetes -will increase bolus insulin, continue basal insulin 7. BPH -continue finasteride, will hold tamsulosin given propensity toward orthostatic hypotension 8. Nicotine addiction/COPD -continue inhaler -continue nicotine patch VTE prophylaxis: Lovenox 40 mg daily Disposition, case management looking for placement Time Spent With Patient Critical Care time: I spent a total of [] minutes of critical care time on this patient's care today; this time is exclusive of procedural time.
[2021-10-06] MEDS: INSULIN LISPRO 100 UNIT/ML 3ML VIAL SUBCUT ×4 (09:15→21:41)
[2021-10-06] MEDS: SUCRALFATE 1 GM TABLET PO (09:16)
[2021-10-06] MEDS: FINASTERIDE 5 MG TABLET PO (09:16)
[2021-10-06] MEDS: FAMOTIDINE 20 MG TABLET PO ×2 (09:16→21:38)
[2021-10-06] MEDS: CLOPIDOGREL 75 MG TABLET PO (09:16)
[2021-10-06] MEDS: buPROPion XL 150 MG TAB 300 MG PO (09:17)
[2021-10-06] MEDS: INSULIN GLARGINE 100 UNIT/ML 3ML PEN 20 UNIT SUBCUT ×2 (09:18→10:50)
[2021-10-06] MEDS: NICOTINE 7 MG PATCH TOP (09:19)
[2021-10-06] MEDS: polyethylene glycoL 3350 17 GM POWD.PACK PO (09:20)
[2021-10-06] MEDS: SODIUM CHLORIDE 0.9% FLUSH 10 ML IV (09:20)
[2021-10-06] MEDS: ENOXAPARIN 40 MG/0.4 ML SYRINGE SUBCUT (09:26)
[2021-10-06 09:29] VITALS: BP 155/80; PULSE 77; RESP 17; TEMP 36.2; O2SAT 96
--- NOTE | 2021-10-06 15:02 | CM.DPC ---
DCP Cont SNF planning Per MD, pt remains stable for d/c to SNF but currently not safe for d/c home with son assist and Resume [facility]. Pt has AARP MCR under [facility] and will need auth for SNF. Per RN and as observed, pt is calm and cooperative and appropriate and not impulsive and does not have behaviors and on occasion has some confusion but easily redirected and does not attempt to get OOB independently. Per RN, pt is very easy to work with. SW met bedside with pt and RN and pt states he is COVID vaccinated and has his vax card in the safe in his wallet and RN was able to get access and made copy that was scanned into his chart. Pt will not need to be quarantined at SNF now since he is fully vaccinated. SW called following SNF's that were previously given referrals and then new [place] SNF's: [facility]- [facility]- [facility]- full [facility]- cannot accept [facility] insurance [facility]- full [facility]: requested review now that pt is confirmed vaccinated and no behaviors. [facility]- currently not accepting new admits [facility]- [place] detailed msg with [place] [facility] [place] tomorrow Mon [facility]- left detailed msg with admissions [facility]- left detailed msg with admissions [facility]- no admissions over w/e [facility]- left msg with admissions [facility]- left msg with admissions Plan: [facility]IAH to follow closely on Thursday AM when more admission staff back at SNF's to confirm if any SNF's can accept pt and begin working on insurance auth for SNF. LYN Downs
--- NOTE | 2021-10-06 15:40 | PT.IPTN ---
Current Diagnoses Unspecified dementia without behavioral disturbance (09/25/21) Physical Therapy Treatment Note M2 PT-IP Current Condition Start: 09/26/21 08:19 Freq: Status: Active Protocol: Document 10/02/21 13:03 SP (Rec: 10/02/21 16:04 SP [id number]) Physical Therapy Current Condition Current Condition Evaluation Date 09/26/21 Treatment Diagnosis Hallucinations, weakness, falls Onset Date Appears acute on chronic M3 PT-IP Subjective Start: 09/26/21 08:19 Freq: Status: Active Protocol: Document 10/06/21 15:40 AW (Rec: 10/06/21 16:02 AW [id number]) Subjective Physical Therapy Visit Type Type Treatment Note Visit Start Time 15:25 Visit Stop Time 15:40 Total Visit Minutes 15 Number of [employer] Visits 0 Physical Therapy Visit Comments Patient Comments Pt is hoping to take a shower but is concerned about feeling woozy when he gets up. M4 PT-IP Mobility and Gait Start: 09/26/21 08:19 Freq: Status: Active Protocol: Document 10/06/21 15:40 AW (Rec: 10/06/21 16:02 AW [id number]) PT-Bed Mobility Assessment Supine to Sit Supine to Sit Minimal Assistance,1 Person Assistance,Bedrails Sit to Supine Sit to Supine Contact Guard Assistance Scooting Scooting to Edge of Bed Contact Guard Assistance PT-Transfer Assessment Comments Mobility Comments Pt was lying in bed as PT arrrived. BP 116/75 HR 78 in supine. Pt completed supine to sit min A x 1 and immediately complained of lightheadedness /dizziness. After two minutes, BP was 81/55 HR 95. Pt was frustrated and requested return to supine, stating he was too dizzy and tired. CGA for return to supine. Pt completed SAQ and straight leg raise x 10 BLE. Pt was left with call light and tray table in reach. Bed alarm was armed for safety. BP recovered to / HR 93. Gait Assessment Comments Gait Comments Not attempted today as pt was feeling too dizzy and frustrated to do more than sit EOB. M5 PT-IP Objective Assessments Start: 09/26/21 08:19 Freq: Status: Active Protocol: Document 09/29/21 14:26 DLM (Rec: 09/29/21 14:37 DLM [id number]) Orientation Orientation/Cognition Level of Alertness Alert Orientation Name,Birthday,Date,Place Language Function Ability No Deficits Noted Safety Awareness Decreased Safety Awareness M6 PT-IP Treatment Start: 09/26/21 08:19 Freq: Status: Active Protocol: Document 10/06/21 15:40 AW (Rec: 10/06/21 16:02 AW [id number]) Physical Therapy Treatment Exercises Exercises Straight Leg Raises,Short Arc Quads Education Education Provided Safety M7 PT-IP Assessment and Plan Start: 09/26/21 08:19 Freq: Status: Active Protocol: Document 10/06/21 15:40 AW (Rec: 10/06/21 16:02 AW [id number]) PT Summary Assessment and Plan Summary Impairments Pain,Strength,Balance, Coordination,Cognition,Bed Mobility,Transfers,Gait, Activity Tolerance Progress Towards Goals Slow Progress due to Medical Issues,Slow Progress due to Activity Tolerance Assessment Summary Dysautonomia manifests as orthostatic hypotension in this pt and limits his mobility. He is quite pleasant and willing to participate but frustrated today by overwhelming sense of dizziness. Pt will require SNF to improve gait stability and functional mobility. Goals Bed Mobility Goal Independent Transfer Goal Contact Guard Assistance Gait Goal Contact Guard Assistance Gait Distance 25 Days to Meet Goals 5 Frequency of Treatment Frequency Of Treatment Once a Day Treatment Plan Physical Therapy Treatment Plan Bed Mobility Training,Transfer Training,Gait Training, Therapeutic Exercise,Balance Retraining,Discharge Planning, Neuromuscular Re-ed, Coordination Retraining Other Recommendations and Next Treatment check BP,bed mob, transfers, Focus gait further distance. Precautions Other Precautions No hallucinations this visit, continue to monitor Recommendations To Nursing Amount of Assist Needed 2 Person Assist Discharge Recommendations PT Discharge Recommendations SNF Rehab Transportation Needs at Discharge Wheelchair/Cabulance
[2021-10-06 18:28] VITALS: BP 113/69; BP 142/83; BP 98/57; PULSE 104; PULSE 92; PULSE 93
[2021-10-06 20:36] VITALS: BP 115/56; BP 124/83; BP 85/47; PULSE 101; PULSE 82; PULSE 84; RESP 18; TEMP 36.8; O2SAT 97
[2021-10-06] MEDS: ATORVASTATIN 20 MG TABLET 40 MG PO (21:37)
[2021-10-06] MEDS: SERTRALINE 50 MG TABLET PO (21:37)
[2021-10-06] MEDS: TRAZODONE 50 MG TABLET 100 MG PO (21:37)
[2021-10-06] MEDS: MELATONIN 3 MG TABLET 6 MG PO (21:37)
[2021-10-06] MEDS: GABAPENTIN 300 MG CAPSULE 900 MG PO (21:38)
[2021-10-06] MEDS: QUETIAPINE 25 MG TABLET PO (21:38)
[2021-10-06] MEDS: INSULIN GLARGINE 100 UNIT/ML 3ML PEN 40 UNIT SUBCUT (21:40)
[2021-10-07] MEDS: SODIUM CHLORIDE 0.9% FLUSH 10 ML IV ×3 (05:23→21:20)
[2021-10-07] MEDS: LEVOTHYROXINE 125 MCG TABLET PO (05:23)
[2021-10-07 08:00] VITALS: BP 133/71; BP 143/66; BP 84/49; PULSE 69; PULSE 77
[2021-10-07 08:49] VITALS: BP 124/70; PULSE 89; RESP 16; TEMP 36.4; O2SAT 96
--- NOTE | 2021-10-07 10:21 | OT.IP.TRT ---
Current Diagnoses Unspecified dementia without behavioral disturbance (09/25/21) Occupational Therapy Treatment Note M2 OT-IP Current Condition Start: 09/28/21 10:16 Freq: Status: Active Protocol: Document 09/28/21 10:18 [facility] (Rec: 09/28/21 10:35 [facility] [id number]) Occupational Therapy Current Condition Current Condition Evaluation Date 09/28/21 Treatment Diagnosis Falls, decreased mobility. M3 OT- IP Subjective and Pain Start: 09/28/21 10:16 Freq: Status: Active Protocol: Document 10/07/21 12:19 [facility] (Rec: 10/07/21 12:28 [facility] [id number]) OT- Subjective Occupational Therapy Visit Type Type Progress Note Visit Start Time 09:58 Visit Stop Time 10:21 Total Visit Minutes 23 Notes PT's BP too low to perform shower as pt requested. OT Pain Assessment Pain When Pain Assessed At Rest Pain Present Pain Present Denied Pain M4 OT- IP ADL's Start: 09/28/21 10:16 Freq: Status: Active Protocol: Document 10/05/21 10:12 [facility] (Rec: 10/05/21 10:17 [facility] [id number]) OT [id number] Comments OT Self-Feeding Comments Not at meal time. OT ADL-Grooming Comments OT Grooming Comments Pt able to was his face after set-up. OT ADL-Oral Care Comments Oral Care Comments NOt performed. OT ADL-Dressing General Eval Lower Body Dressing Ability Maximum Assistance Areas Needing Assistance Socks OT ADL-Toileting General Evaluation Toileting Ability Maximum Assistance Areas Needing Assistance Manage Clothing,Perform Perineal Hygiene Comments OT Toileting Comments DELFINA X 1 to stand to FWW and another assist for hygiene and brief management needs. M5 OT- IP IADL's Start: 09/28/21 10:16 Freq: Status: Active Protocol: Document 09/28/21 10:18 [facility] (Rec: 09/28/21 10:35 [facility] [id number]) OT-Instrumental Activities of Daily Living Home Safety Awareness Home Safety Comments Pt needing increased time to figure out home safety situations. At this time as pt is very groogy and unsteady on his feet that it would be best for someone to assist pt for all his needs. M6 OT- IP Functional Cognition Start: 09/28/21 10:16 Freq: Status: Active Protocol: Document 10/05/21 10:12 [facility] (Rec: 10/05/21 10:17 [facility] [id number]) Cognitive Factors Limiting Selfcare Function Cognitive Comments Cognitive Assessment Comments Pt needing constant cues for safety at this time. M7 OT- IP Mobility and Balance Start: 09/28/21 10:16 Freq: Status: Active Protocol: Document 10/07/21 12:19 [facility] (Rec: 10/07/21 12:28 [facility] [id number]) OT- Bed Mobility Assessment Supine to Sit Supine to Sit Assist Standby Assistance,Head of Bed Elevated,Bedrails Scooting Scooting to Edge of Bed Standby Assistance,Head of Bed Elevated,Bedrails OT-Transfer Assessment Sit to and From Stand Sit to and from Stand Contact Guard Assistance Transfers Transfer Ability Minimal Assistance Technique Transfer Destination Bed,Chair Transfer Technique Stand Step Pivot Devices Transfer Assistive Devices Gait Belt,Front Wheeled Walker Comments Mobility Comments Pt with low BP sitting 89/51. Agreeable to tranfer to chair at bedside with BP 102/63 left sitting up in chair. OT- Balance Assessment Sitting Balance and Reactions Static Sitting Balance Ability Good M8 OT- IP Objective Assessments Start: 09/28/21 10:16 Freq: Status: Active Protocol: Document 09/28/21 10:18 [facility] (Rec: 09/28/21 10:35 [facility] [id number]) OT Strength Comments Strength Comments Pt at least 3-/5 during mobility needs not able to formally assess. OT- Coordination Assessment Comments Coordination Comments Decreased due to tremors and needing asisst to cut his food and open items on his try at this time. OT-Muscle Tone Assessment Comments Muscle Tone Comments Pt having tremors in in his hands. M9 OT- IP Assessment and Plan Start: 09/28/21 10:16 Freq: Status: Active Protocol: Document 10/07/21 12:19 [facility] (Rec: 10/07/21 12:28 [facility] [id number]) OT Summary Assessment and Plan Potential Rehabilitation Potential Fair Analytic Complexity at Evaluation Low Summary OT Impairments Balance,Functional Cognition, Functional Mobility,Self- Feeding,Grooming,Dressing, Toileting,Bathing,Toilet Transfers,Shower Transfers, Activity Tolerance Progress Towards Goals Slow Progress due to Medical Issues,Slow Progress due to Activity Tolerance,Slow Progress due to Cognition Assessment Summary Pt limited in participation d/ t orthostatic hypotension. Pt requesting to get into the shower but states understanding of safety with othrostatics as to why a shower would not be a safe option at this time. Pt declined bed bath and left sitting in chair. Goals Grooming Goal Independent Dressing Goal Minimal Assistance Toileting Goal Minimal Assistance Bathing Goal Minimal Assistance Toilet Transfer Goal Contact Guard Assistance Shower Transfer Goal Minimal Assistance Days to Meet Goals 17 Frequency of Treatment Frequency Of Treatment Once a Day Treatment Plan OT Treatment Plan ADL Training,Functional Cognition Training,Functional Mobility,Patient/Family Education,Discharge Planning Other Treatment Recommendations and Next shower Treatment Focus Discharge Recommendations OT Discharge Recommendations SNF Rehab,[facility] Transportation Needs at Discharge Wheelchair/Cabulance
[2021-10-07] MEDS: FAMOTIDINE 20 MG TABLET PO ×2 (10:23→20:29)
[2021-10-07] MEDS: buPROPion XL 150 MG TAB 300 MG PO (10:23)
[2021-10-07] MEDS: GABAPENTIN 300 MG CAPSULE 900 MG PO ×2 (10:23→20:28)
[2021-10-07] MEDS: ENOXAPARIN 40 MG/0.4 ML SYRINGE SUBCUT (10:23)
[2021-10-07] MEDS: FINASTERIDE 5 MG TABLET PO (10:23)
[2021-10-07] MEDS: CLOPIDOGREL 75 MG TABLET PO (10:23)
[2021-10-07] MEDS: NICOTINE 7 MG PATCH TOP (10:24)
[2021-10-07] MEDS: INSULIN LISPRO 100 UNIT/ML 3ML VIAL SUBCUT ×4 (10:41→21:19)
[2021-10-07] MEDS: INSULIN GLARGINE 100 UNIT/ML 3ML PEN 40 UNIT SUBCUT ×2 (10:47→21:19)
--- NOTE | 2021-10-07 10:47 | CM.DPNOTE ---
[facility]ax[phone] and [email or web address]. Received fax/email conf. DASHAWN Beant.
--- NOTE | 2021-10-07 11:47 | PT.IPTN ---
Current Diagnoses Unspecified dementia without behavioral disturbance (09/25/21) Physical Therapy Treatment Note M2 PT-IP Current Condition Start: 09/26/21 08:19 Freq: Status: Active Protocol: Document 10/02/21 13:03 SP (Rec: 10/02/21 16:04 SP [id number]) Physical Therapy Current Condition Current Condition Evaluation Date 09/26/21 Treatment Diagnosis Hallucinations, weakness, falls Onset Date Appears acute on chronic M3 PT-IP Subjective Start: 09/26/21 08:19 Freq: Status: Active Protocol: Document 10/07/21 11:28 KS (Rec: 10/07/21 12:24 KS [id number]) Subjective Physical Therapy Visit Type Type Treatment Note Visit Start Time 11:28 Visit Stop Time 11:47 Total Visit Minutes 19 Notes PET STYLIST present to assist w/ BP. Number of AIRPORT RAMP ATTENDANT Visits 1 Physical Therapy Visit Comments Patient Comments Pt agreeable to working w/ PT but expresses increased fatigue today. M4 PT-IP Mobility and Gait Start: 09/26/21 08:19 Freq: Status: Active Protocol: Document 10/07/21 11:28 KS (Rec: 10/07/21 12:24 KS [id number]) PT-Transfer Assessment Sit to and From Stand Sit to and from Stand Minimal Assistance,1 Person Assistance,Use of Upper Extremities Equipment Transfer Assistive Device Gait Belt,Front Wheeled Walker Orthotic/Prosthetic Devices or Brace: No Transfers Transfer Destination Chair Transfer Technique Pt ambulated w/ FWW Transfer Ability Level of Assist Minimal Assistance,Moderate Assistance,1 Person Assistance ,Use of Upper Extremities Comments Mobility Comments Pt in chair upon arrival from therapy. PET STYLIST arrived to monitor BP. Pts BP reclined in chair 143/66. Pt scooted to EOC CGA and BP: 133/71. Pt sit <>stand w/ FWW and Min A and BP:84/49. Pt then sat back down. He then performed 5 additional sit<>stands w/ FWW and Min A. Pts BP following sit<>stands 81/51, pt reported slight dizziness. He then complted 1x10 bilateral LAQ, glute sets, and ankle pumps. Pt left in chair w/ all needs in reach and BP: 127/73 reclined. Gait Assessment Comments Gait Comments Not attempted due to symptomatic low BP. M5 PT-IP Objective Assessments Start: 11/25/21 08:19 Freq: Status: Active Protocol: Document 09/29/21 14:26 DLM (Rec: 09/29/21 14:37 DLM [id number]) Orientation Orientation/Cognition Level of Alertness Alert Orientation Name,Birthday,Date,Place Language Function Ability No Deficits Noted Safety Awareness Decreased Safety Awareness M6 PT-IP Treatment Start: 09/26/21 08:19 Freq: Status: Active Protocol: Document 10/07/21 11:28 KS (Rec: 10/07/21 12:24 KS [id number]) Physical Therapy Treatment Exercises Exercises Ankle Pumps,Gluteal Sets, Seated Knee Flexion/Extension Education Education Provided Safety Other Treatments Other Treatment Performed 5x sit<>stands M7 PT-IP Assessment and Plan Start: 09/26/21 08:19 Freq: Status: Active Protocol: Document 10/07/21 11:28 KS (Rec: 10/07/21 12:24 KS [id number]) PT Summary Assessment and Plan Summary Impairments Pain,Strength,Balance, Coordination,Cognition,Bed Mobility,Transfers,Gait, Activity Tolerance Progress Towards Goals Slow Progress due to Medical Issues,Slow Progress due to Activity Tolerance Assessment Summary Pt continues to be limited in mobility due to symptomatic orthostatic hypotension and dysautonomia. He is pleasant and willing to work w/ therapy and verbalized that he wishes he was able to ambulate in hallways, but understands it is unsafe at this time and he could fall. Min A for sit<> stand w/ FWW and able to complete 5x STS and LE exercises to promote strengthening, but expressed fatigue following. Pt will require SNF to improve gait stability and functional mobility. Goals Bed Mobility Goal Independent Transfer Goal Contact Guard Assistance Gait Goal Contact Guard Assistance Gait Distance 25 Days to Meet Goals 5 Frequency of Treatment Frequency Of Treatment Once a Day Treatment Plan Physical Therapy Treatment Plan Bed Mobility Training,Transfer Training,Gait Training, Therapeutic Exercise,Balance Retraining,Discharge Planning, Neuromuscular Re-ed, Coordination Retraining Other Recommendations and Next Treatment check BP,bed mob, transfers, Focus gait further distance. Precautions Other Precautions No hallucinations this visit, continue to monitor Recommendations To Nursing Amount of Assist Needed 2 Person Assist Discharge Recommendations PT Discharge Recommendations SNF Rehab Transportation Needs at Discharge Wheelchair/Cabulance
--- NOTE | 2021-10-07 16:32 | CM.DPC ---
DCP/continued: CM team received several phone calls today from SNF's declining this patient. BUSINESS JOB TITLES spoke with admit at [facility] and they requested that clinical be emailed for review. As of 4:00pm today CM team has not heard back. BUSINESS JOB TITLES met with patient re: d/c options. Patient made aware that SNF is highly unlikely at time of d/c. Patient appears very agreeable to return home with [facility] . BUSINESS JOB TITLES placed call to [facility] and spoke with intake. They report that they can see patient in the residence on 10-09. In addition, notified intake that BUSINESS JOB TITLES and HIGHWAY RESEARCH ENGINEER will need to be added. Order obtained for additional services and clinical faxed to [facility] this afternoon. CM team to confirm start of services prior to patient's discharge. Placed call to patient's son/Cy but unable to leave vm. Therefore, placed call to patient's granddaughter/Magdalene she reports that she will tell her Dad that patient will most likely be discharged home tomorrow. Magdalene also adds that she will be able to assist patient in the residence. Notified Magdalene that state application for Medicaid has already been started. P: Anticipate home on 10-08-21. CM team to check with [facility] on acceptance? If they decline then current plan is home with through [facility]. Patient and provider aware and agreeable. MATEO
--- NOTE | 2021-10-07 17:29 | P.PN_ITS ---
Subjective Subjective Interval history: Patient denies any acute complaints this morning. He reports that he's eating and drinking OK, with no difficulty urinating or having BM's. He reports his blood glucose is better controlled, now that we increased his lantus to 40 units bid. Exam Vital Signs (past 8 hours): Oxygen Delivery Method Room Air Oxygen Flow Rate 0 Narrative Exam Narrative: Const Other: Patient sitting up in chair upon my entering the room, eating breakfast, and in no apparent acute distress. Eyes Other: No scleral icterus appreciated. Neck Other: No carotid bruits heard. Resp Other: Diminished breath sounds bilaterally. No adventitious breath sounds appreciated. Cardio Other: Regular rate and rhythm, with S1 and S2 heard, with no extra heart sounds or murmurs auscultated. GI Other: Soft, non-distended, non-tender. Bowel sounds present. Extrem Other: No peripheral edema noted. Psych Other: Alert and oriented to person, place, time and situation. Good insight. Objective Labs Result Diagrams: 10/04/21 06:05 10/04/21 06:05 [facility] Medical History Bilateral otitis externa Cellulitis Chicken pox (1956) Chickenpox (1956) Chronic cough COPD (chronic obstructive pulmonary disease) Coronary artery disease (2006) Depression (2008) Diabetes (1994) Eczema Foot pain GERD (gastroesophageal reflux disease) (2012) Gout Hearing reduced Hip pain History of recurrent TIAs Hyperlipidemia Hypertension Hypothyroidism Kidney disease (2009) Measles (1955) Measles (1955) Mental health assessment declined Mumps (1958) Mumps (1958) Neuropathy Obstructive sleep apnea Otitis externa Screening for malignant neoplasm of colon Shoulder pain Sleep apnea Status post myocardial infarction Steatosis Strain of muscle of right groin region (03/30/18) Type 2 diabetes mellitus Well adult exam Surgical History Anesthesia History of heart artery stent (2006) History of heart artery stent (2010) Hx of shoulder surgery (2005) Family History Brother Age: 67 Diabetes mellitus Hyperlipidemia Mother Heart disease Hypertension Hyperlipidemia Diabetes mellitus Grandmother Diabetes mellitus Brother No problems noted. Sister Breast cancer Social History marital status: details: 3 years ago household members: none lives independently: Yes housing: apartment Smoking Status: Current every day smoker Tobacco: How many years used: 45 alcohol intake: current Assessment & Plan Assessment & Plan narrative: 66-year-old male admitted to the hospital for confusion, frequent falls, hallucinations, and intention tremor 1. 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 Acute metabolic encephalopathy, present on admission, no improved -likely related to Lewy body dementia -Seroquel started -appreciate psychiatric consultation -will discontinue risperidone, continue low-dose Zoloft, and avoid benzod iazepenes, as they can exacerbate his dementia 3. Anxiety and depression -medications as above 4. Hallucinations -no evidence of psychosis -suspect related to underlying Lewy body dementia -slums 5. Hyperlipidemia -continue statin 6. Type 2 diabetes -will increase bolus insulin, continue basal insulin 7. BPH -continue finasteride, will hold tamsulosin given propensity toward orthostatic hypotension 8. Nicotine addiction/COPD -continue inhaler -continue nicotine patch VTE prophylaxis: Lovenox 40 mg daily Disposition: Appreciate case management's help in arranging placement Time Spent With Patient Critical Care time: I spent a total of [] minutes of critical care time on this patient's care t kacey; this time is exclusive of procedural time.
[2021-10-07 19:00] VITALS: O2SAT 96
[2021-10-07] MEDS: TRAZODONE 50 MG TABLET 100 MG PO (20:28)
[2021-10-07] MEDS: ATORVASTATIN 20 MG TABLET 40 MG PO (20:28)
[2021-10-07] MEDS: MELATONIN 3 MG TABLET 6 MG PO (20:28)
[2021-10-07] MEDS: SERTRALINE 50 MG TABLET PO (20:29)
[2021-10-07] MEDS: QUETIAPINE 25 MG TABLET PO (20:30)
[2021-10-07 20:45] VITALS: BP 140/95; BP 93/60; PULSE 72; RESP 16; TEMP 36.7; O2SAT 96
[2021-10-08] MEDS: LEVOTHYROXINE 125 MCG TABLET PO (06:49)
[2021-10-08] MEDS: ENOXAPARIN 40 MG/0.4 ML SYRINGE SUBCUT (07:54)
[2021-10-08] MEDS: CLOPIDOGREL 75 MG TABLET PO (07:55)
[2021-10-08] MEDS: GABAPENTIN 300 MG CAPSULE 900 MG PO (07:55)
[2021-10-08] MEDS: FAMOTIDINE 20 MG TABLET PO (07:55)
[2021-10-08] MEDS: FINASTERIDE 5 MG TABLET PO (07:56)
[2021-10-08] MEDS: NICOTINE 7 MG PATCH TOP (07:56)
[2021-10-08] MEDS: buPROPion XL 150 MG TAB 300 MG PO (07:57)
[2021-10-08] MEDS: SODIUM CHLORIDE 0.9% FLUSH 10 ML IV (07:57)
[2021-10-08 08:00] VITALS: BP 120/72; BP 139/84; BP 81/56; BP 97/60; PULSE 65; PULSE 71; PULSE 87; PULSE 91; RESP 16; TEMP 36; O2SAT 97
[2021-10-08] MEDS: INSULIN LISPRO 100 UNIT/ML 3ML VIAL SUBCUT ×2 (08:01→12:20)
[2021-10-08] MEDS: INSULIN GLARGINE 100 UNIT/ML 3ML PEN 40 UNIT SUBCUT (08:01)
--- NOTE | 2021-10-08 09:01 | PM.PN.1 ---
Subjective Subjective Interval history: Patient denies any acute complaints this morning. He reports his blood glucose is better controlled now. He knows that case management is attempting to find him placement [facility] a [facility], and understands that if there are no beds available, that he will be discharged home with home health. Exam Vital Signs (past 8 hours): - 10/08/21 08:00 Temperature 96.8 F L Pulse Rate 65 Respiratory Rate 16 Blood Pressure 139/84 Pulse Oximetry 97 Oxygen Delivery Method Room Air Oxygen Flow Rate 0 Narrative Exam Narrative: Const Other: Patient sitting up in chair upon my entering the room, eating breakfast, and in no apparent acute distress. Eyes Other: No scleral icterus appreciated. Neck Other: No carotid bruits heard. Resp Other: Diminished breath sounds bilaterally. No adventitious breath sounds appreciated. Cardio Other: Regular rate and rhythm, with S1 and S2 heard, with no extra heart sounds or murmurs auscultated. GI Other: Soft, non-distended, non-tender. Bowel sounds present. Extrem Other: No peripheral edema noted. Psych Other: Alert and oriented to person, place, time and situation. Good insight. Objective Labs Result Diagrams: 10/04/21 06:05 10/04/21 06:05 [facility] Medical History Bilateral otitis externa Cellulitis Chicken pox (1956) Chickenpox (1956) Chronic cough COPD (chronic obstructive pulmonary disease) Coronary artery disease (2006) Depression (2008) Diabetes (1994) Eczema Foot pain GERD (gastroesophageal reflux disease) (2012) Gout Hearing reduced Hip pain History of recurrent TIAs Hyperlipidemia Hypertension Hypothyroidism Kidney disease (2009) Measles (1955) Measles (1955) Mental health assessment declined Mumps (1958) Mumps (1958) Neuropathy Obstructive sleep apnea Otitis externa Screening for malignant neoplasm of colon Shoulder pain Sleep apnea Status post myocardial infarction Steatosis Strain of muscle of right groin region (03/30/18) Type 2 diabetes mellitus Well adult exam Surgical History Anesthesia History of heart artery stent (2006) History of heart artery stent (2010) Hx of shoulder surgery (2005) Family History Brother Age: 67 Diabetes mellitus Hyperlipidemia Mother Heart disease Hypertension Hyperlipidemia Diabetes mellitus Grandmother Diabetes mellitus Brother No problems noted. Sister Breast cancer Social History marital status: details: 3 years ago household members: none lives independently: Yes housing: apartment Smoking Status: Current every day smoker Tobacco: How many years used: 45 alcohol intake: current Assessment & Plan Assessment & Plan narrative: 66-year-old male admitted to the hospital for confusion, frequent falls, hallucinations, and intention tremor 1. 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 Acute metabolic encephalopathy, present on admission, no improved -likely related to Lewy body dementia -Seroquel started -appreciate psychiatric consultation -will discontinue risperidone, continue low-dose Zoloft, and avoid benzodiazepenes, as they can exacerbate his dementia 3. Anxiety and depression -medications as above 4. Hallucinations -no evidence of psychosis -suspect related to underlying Lewy body dementia -slums 5. Hyperlipidemia -continue statin 6. Type 2 diabetes -will increase bolus insulin, continue basal insulin 7. BPH -continue finasteride, will hold tamsulosin given propensity toward orthostatic hypotension 8. Nicotine addiction/COPD -continue inhaler -continue nicotine patch VTE prophylaxis: Lovenox 40 mg daily Disposition: Appreciate case management's help in arranging placement or home health aid Time Spent With Patient Critical Care time: I spent a total of [] minutes of critical care time on this patient's care today; this time is exclusive of procedural time.
--- NOTE | 2021-10-08 11:50 | PT.IPTN ---
Current Diagnoses Unspecified dementia without behavioral disturbance (09/25/21) Physical Therapy Treatment Note M2 PT-IP Current Condition Start: 09/26/21 08:19 Freq: Status: Active Protocol: Document 10/02/21 13:03 SP (Rec: 10/02/21 16:04 SP [id number]) Physical Therapy Current Condition Current Condition Evaluation Date 09/26/21 Treatment Diagnosis Hallucinations, weakness, falls Onset Date Appears acute on chronic M3 PT-IP Subjective Start: 09/26/21 08:19 Freq: Status: Active Protocol: Document 10/08/21 11:14 KS (Rec: 10/08/21 14:02 KS [id number]) Subjective Physical Therapy Visit Type Type Treatment Note Visit Start Time 11:14 Visit Stop Time 11:50 Total Visit Minutes 36 Notes GEOGRAPHIC INFORMATION SCIENTIST present to assist w/ BP. Number of SOCIAL WORK PROFESSOR Visits 2 Physical Therapy Visit Comments Patient Comments Pt agreeable to working w/ PT but expresses increased fatigue today. M4 PT-IP Mobility and Gait Start: 09/26/21 08:19 Freq: Status: Active Protocol: Document 10/08/21 11:14 KS (Rec: 10/08/21 14:02 KS [id number]) PT-Bed Mobility Assessment Supine to Sit Supine to Sit Moderate Assistance,1 Person Assistance,Bedrails Sit to Supine Sit to Supine Contact Guard Assistance Scooting Scooting to Edge of Bed Contact Guard Assistance PT-Transfer Assessment Sit to and From Stand Sit to and from Stand Minimal Assistance,1 Person Assistance,Use of Upper Extremities Equipment Transfer Assistive Device Gait Belt,Front Wheeled Walker Orthotic/Prosthetic Devices or Brace: No Transfers Transfer Destination Bed Transfer Ability Level of Assist Minimal Assistance,Moderate Assistance,1 Person Assistance ,Use of Upper Extremities Comments Mobility Comments Pt in bed upon arrival from therapy and still limited by orthostatic hypotension. Mod A for sup<>sit (BP: 117/40) and Min A for sit<>Stand w/ FWW ( BP:104/63, 125/86, and 82/65) Pt completed 3x sit<>stands w/ 30 second bouts of marching w / each stand. Following marching in place, pt reported increased fatigue and got back into bed CGA. Reveiwed ankle pumps, quad sets, and glute sets. Pts BP following treatment supine 153/84. Pt left in bed w/ CNAs in room. Gait Assessment Comments Gait Comments Not attempted due to symptomatic low BP. Able to perform marching in place Min A. M5 PT-IP Objective Assessments Start: 09/26/21 08:19 Freq: Status: Active Protocol: Document 09/29/21 14:26 DLM (Rec: 09/29/21 14:37 DLM [id number]) Orientation Orientation/Cognition Level of Alertness Alert Orientation Name,Birthday,Date,Place Language Function Ability No Deficits Noted Safety Awareness Decreased Safety Awareness M6 PT-IP Treatment Start: 09/26/21 08:19 Freq: Status: Active Protocol: Document 10/08/21 11:14 KS (Rec: 10/08/21 14:02 KS [id number]) Physical Therapy Treatment Exercises Exercises Ankle Pumps,Gluteal Sets,Quad Sets Education Education Provided Safety Other Treatments Other Treatment Performed 3x sit<>stands, 3x30 [address]. M7 PT-IP Assessment and Plan Start: 09/26/21 08:19 Freq: Status: Active Protocol: Document 10/08/21 11:14 KS (Rec: 10/08/21 14:02 KS [id number]) PT Summary Assessment and Plan Summary Impairments Pain,Strength,Balance, Coordination,Cognition,Bed Mobility,Transfers,Gait, Activity Tolerance Progress Towards Goals Slow Progress due to Medical Issues,Slow Progress due to Activity Tolerance Assessment Summary Pt continues to be limited by dysautonomia and orthostatic hypotension. He expressed frustration w/ his lack of mobility. Mod A for sup<>sit, Min A for sit<>stand, and Min A for marching in place. Pt states he has motorized scooter at home, however because of his intention tremor and dementia could be dangerous to use. Pt would benefit from SNF and is not safe to go home, however if he is he will absolutely need 24 /7 assist because he is a high fall risk due to medical issues including low BP, tremor, and dementia. Goals Bed Mobility Goal Independent Transfer Goal Contact Guard Assistance Gait Goal Contact Guard Assistance Gait Distance 25 Days to Meet Goals 5 Frequency of Treatment Frequency Of Treatment Once a Day Treatment Plan Physical Therapy Treatment Plan Bed Mobility Training,Transfer Training,Gait Training, Therapeutic Exercise,Balance Retraining,Discharge Planning, Neuromuscular Re-ed, Coordination Retraining Other Recommendations and Next Treatment check BP,bed mob, transfers, Focus gait further distance. Precautions Other Precautions No hallucinations this visit, continue to monitor Recommendations To Nursing Amount of Assist Needed 2 Person Assist Discharge Recommendations PT Discharge Recommendations SNF Rehab Transportation Needs at Discharge Wheelchair/Cabulance
--- NOTE | 2021-10-08 13:14 | PC.NURSE ---
Patient's son Cy did not answer phone and voicemail is full, unable to leave a message. Patient states to try to reach his granddaughter Soledad [phone] instead and to help get ahold of his son. Voicemail left for Soledad.
--- NOTE | 2021-10-08 14:36 | CM.DPNOTE ---
Called [facility] and spoke with Radha asking if they will see patient tomorrow, 10/09/21. She said they will. I relayed information to Yvonne. Laurie Luque CM Asst.
--- NOTE | 2021-10-08 15:03 | CM.DPC ---
Addendum entered by Yvonne Spangler 10/09/21 09:06: Received vm this AM from [facility]# [phone]. Message indicates that they would like to schedule appointment with patient for assessment. SPARK PLUG ASSEMBLER returned phone call this AM left vm indicating that patient discharged and requested Home and Community follow up with patient/family as outpatient. SPARK PLUG ASSEMBLER stressed the importance of expediting services for this patient. MATEO Original Note: DCP/continued: Reviewed chart. SPARK PLUG ASSEMBLER placed call to [facility] to check on whether or not they have reviewed. Per Cheryl they are not accepting patient's today because admission coordinator out sick? Unable to determine if clinical for this patient has been reviewed? All other SNF's that have been contacted have declined patient. Therefore, patient aware and agreeable to d/c home with [facility] through [facility]. SPARK PLUG ASSEMBLER confirmed that [facility] plans start of care in residence tomorrow 10-09-21. Family contacted by SPARK PLUG ASSEMBLER on 10-07 indicating that patient will be discharged home with HH today. Granddaughter plans to notify patient's son/Cy. In addition, granddaughter reports that she will assist patient in the residence upon d/c. Medicaid application, and community resources provided to patient today. Patient and family [facility] for [facility]. P: Home today with support from family and [facility] . Unable to locate SNF for patient therefore, patient in agreement to d/c home with HH and familly assistance. MAETO
--- NOTE | 2021-10-08 16:34 | PM.DS.1 ---
History of Present Illness History of Present Illness Chief complaint: Fall yesterday, chest pain Narrative: Mr. Randall is a 66M with PMH CAD, COPD, Type 2 DM on insulin, HTN, BPH, hypothyroidism who presents for chest pain and falls. He states that he lives alone. He has noted for nearly two years at least that he has had more difficulty with ambulation. This has progressed over the last couple months. He has started having more frequent falls. He feels that he is imbalanced. He does not lose consciousness. He feels that sometimes his legs feel weak. He has no back pain. He also notes that he has had hallucinations for a couple months. He notes visual and auditory hallucinations. They sound like complex hallucinations where he will see unusual animals, for people will speak to him. He says they don't tell me to do bad things. He has been depressed, and has previously felt suicidal but denies feeling suicidal now. He has not seen a psychiatrist or other mental health therapist, he has been prescribed anti-depressants by his PCP. He has not had any incontinence. He has not had cough/fevers, shortness of breath, nausea, vomiting, abdominal pain, diarrhea, dysuria. He has no focal weakness, no numbness. Today he also had an episode of chest pain at home, started at rest, improved with nitro. He had no shortness of breath. His chest pain was substernal with no radiation. He appears to have had unstable angina in April of 2020 for which he was transferred to [facility]. His last stress test in our system was in 2018. He also had a cardiac cath in January 2021 that showed significant multivessel disease which was unchanged from prior cath. In the ED workup was done, vitals notable for elevated blood pressure. Labs notable for WBC 9.8, hgb 12.8, plts 210, creatinine 0.91. Ammonia negative. Troponin negative. EtOH negative. UA negative. Urine drug screen positive for marijuana, benzons, TCAs. Chest xray showed chronic interstitial changes. CT head showed no acute process. He was admitted for further treatment. 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 Consult: Community Health Res Need 09/25/21 20:20 Consult to Occupational Therapy Evaluate & Treat Comment: Physician Instructions: Evaluate and treat Consult to Physical Therapy Evaluate & Treat Comment: Physician Instructions: Evaluate and Treat 09/30/21 11:00 Consult to Physician Routine Comment: Consulting Provider: Emerson Alvares Reason for consultation: hallucinations Has provider been notified: Yes 10/07/21 13:13 Consult to Home Health Routine Comment: DX: Likely Lewy Body Dementia Reason For Exam: Resume HH for PT/OT/S[employer] 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 Likely Lewy body dementia 2. Acute metabolic encephalopathy, present on admission, no improved 3. Anxiety and depression 4. Hallucinations 5. Hyperlipidemia 6. Type 2 diabetes 7. BPH 8. Nicotine addiction/COPD Hospital Course: 66yo male with a hx of COPD, insulin-dependent DM II, hypertension, anxiety/depression, and hypothyroidism that presented with frequent falls, intermittent auditory/visual hallucinations, and orthostatic hypotension, that are consistent with likely Lewy body dementia. Due to his orthostatic hypotension, the patient's home lisinopril, Lasix, Lopressor, Imdur, nitroglycerin tablets, tamsulosin, and Flexeril were held. PO Seroquel 25 mg once nightly was begun, with good effect. Case management attempted many times to secure group home facility for the patient, due to his orthostatic hypotension. However, there were no available beds. Patient was discharged home, in the care of his son and family. He verbalized understanding his diagnosis, the plan, and is agreeable. All of his questions were answered to his apparent satisfaction. Exam Vital Signs (past 8 hours): Oxygen Delivery Method Room Air Oxygen Flow Rate 0 Narrative Exam Narrative: Const Other: Patient sitting up in chair upon my entering the room, eating breakfast, and in no apparent acute distress. Eyes Other: No scleral icterus appreciated. Neck Other: No carotid bruits heard. Resp Other: Diminished breath sounds bilaterally. No adventitious breath sounds appreciated. Cardio Other: Regular rate and rhythm, with S1 and S2 heard, with no extra heart sounds or murmurs auscultated. GI Other: Soft, non-distended, non-tender. Bowel sounds present. Extrem Other: No peripheral edema noted. Psych Other: Alert and oriented to person, place, time and situation. Good insight. Objective Labs Result Diagrams: 10/04/21 06:05 10/04/21 06:05 [facility] Medical History Bilateral otitis externa Cellulitis Chicken pox (1956) Chickenpox (1956) Chronic cough COPD (chronic obstructive pulmonary disease) Coronary artery disease (2006) Depression (2008) Diabetes (1994) Eczema Foot pain GERD (gastroesophageal reflux disease) (2012) Gout Hearing reduced Hip pain History of recurrent TIAs Hyperlipidemia Hypertension Hypothyroidism Kidney disease (2009) Measles (1955) Measles (1955) Mental health assessment declined Mumps (1958) Mumps (1958) Neuropathy Obstructive sleep apnea Otitis externa Screening for malignant neoplasm of colon Shoulder pain Sleep apnea Status post myocardial infarction Steatosis Strain of muscle of right groin region (03/30/18) Type 2 diabetes mellitus Well adult exam Surgical History Anesthesia History of heart artery stent (2006) History of heart artery stent (2010) Hx of shoulder surgery (2005) Family History Brother Age: 67 Diabetes mellitus Hyperlipidemia Mother Heart disease Hypertension Hyperlipidemia Diabetes mellitus Grandmother Diabetes mellitus Brother No problems noted. Sister Breast cancer Social History marital status: details: 3 years ago household members: none lives independently: Yes housing: apartment Smoking Status: Current every day smoker Tobacco: How many years used: 45 alcohol intake: current Discharge Assessment & Plan Assessment and Plan Assessment: 66-year-old male admitted to the hospital for confusion, frequent falls, hallucinations, and intention tremor 1. 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 Acute metabolic encephalopathy, present on admission, no improved -likely related to Lewy body dementia -Seroquel started -appreciate psychiatric consultation -will discontinue risperidone, continue low-dose Zoloft, and avoid benzodiazepenes, as they can exacerbate his dementia 3. Anxiety and depression -medications as above 4. Hallucinations -no evidence of psychosis -suspect related to underlying Lewy body dementia -slums 5. Hyperlipidemia -continue statin 6. Type 2 diabetes -will increase bolus insulin, continue basal insulin 7. BPH -continue finasteride, will hold tamsulosin given propensity toward orthostatic hypotension 8. Nicotine addiction/COPD -continue inhaler -continue nicotine patch Discharge Plan Discharge Plan Patient Disposition: Home Discharge orders & Medications Prescriptions: Continued (DME) Test strips 100 strip Qty: 1 10RF Rx Instructions: Check blood glucose 3 times daily beclomethasone dipropionate 40 mcg/actuation HFA aerosol breath activated 1 inhalation Inhalation BID Qty: 10.6 5RF (DME) blood-glucose meter Kit See Rx Instructions .ROUTE .MEDSUPPLY Qty: 1 0RF Rx Instructions: Use to test blood glucose BID (DME) Disabled Parking Permit See Rx Instructions .ROUTE .MEDSUPPLY Qty: 1 0RF Rx Instructions: Valid for 5 years (DME) Blood Glucose Test Strip See Rx Instructions .ROUTE .MEDSUPPLY Qty: 100 6RF Rx Instructions: Use to test blood glucose twice daily. (DME) lancets [BD Ultra Fine Lancets] 33 gauge misc See Rx Instructions .ROUTE .MEDSUPPLY Qty: 100 6RF Rx Instructions: Use to test blood glucose twice daily gabapentin 300 mg capsule 900 mg PO BID Qty: 540 3RF albuterol sulfate [Proventil HFA] 90 mcg/actuation HFA aerosol inhaler 2 puff INHALATION QID PRN (Reason: shortness of breath) Qty: 18 5RF levothyroxine 125 mcg tablet 125 mcg PO DAILY Qty: 90 3RF (DME) pen needle, diabetic [Comfort EZ Pen Mcdowell] 31 gauge x 5/16 needle See Dose Instructions .ROUTE .MEDSUPPLY Qty: 100 5RF Dose Instruction: As directed Rx Instructions: Use to inject insulin 5 times per day clopidogrel 75 mg tablet 75 mg PO DAILY Qty: 90 3RF Label Comments: Pt reports not taking for 1 week for upcoming colonoscopy on 10/08 insulin glargine U-300 conc 300 unit/mL (3 mL) insulin pen 80 unit SUBCUT BID Qty: 15 11RF citalopram [Celexa] 40 mg tablet 40 mg PO DAILY Qty: 90 1RF mupirocin 2 % ointment 1 applic TOP BID Qty: 30 1RF omeprazole 20 mg tablet,delayed release (DR/EC) 20 mg PO DAILY Qty: 90 1RF lorazepam 1 mg tablet 1 mg PO BID PRN (Reason: sedation) Qty: 30 1RF methocarbamol 500 mg tablet 500 mg PO TID PRN (Reason: mm tightness) Qty: 90 1RF oxycodone 5 mg tablet 5 mg PO Q4-6H PRN (Reason: pain) Qty: 60 0RF atorvastatin 80 mg tablet 80 mg PO DAILY Qty: 90 3RF triamcinolone acetonide 0.1 % cream 1 applic TOP DAILY Qty: 30 5RF bupropion HCl 300 mg tablet extended release 24 hr 300 mg PO QAM Qty: 90 1RF Novolog Flexpen U-100 Insulin 100 unit/mL (3 mL) insulin pen See Rx Instructions SUBCUT .COMPLEX Qty: 15 11RF Rx Instructions: Five-10 units a.c. t.i.d. depending on carbohydrate content of meal ipratropium-albuterol 0.5 mg-3 mg(2.5 mg base)/3 mL Solution For Nebulization 3 ml INH QID Qty: 360 0RF Discontinued isosorbide mononitrate 60 mg tablet extended release 24 hr 60 mg PO QAM Qty: 90 2RF lisinopril 2.5 mg tablet 2.5 mg PO QAM Qty: 90 3RF nitroglycerin 0.4 mg tablet, sublingual 0.4 mg sublingual PRN PRN (Reason: Chest Pain) Qty: 20 1RF tamsulosin [Flomax] 0.4 mg capsule 0.4 mg PO DAILY Qty: 90 1RF metoprolol tartrate 50 mg tablet 50 mg PO BID Qty: 180 3RF furosemide 20 mg tablet 20 mg PO DAILY Qty: 90 1RF cyclobenzaprine 10 mg tablet 10 mg PO TID PRN (Reason: muscle spasm) Qty: 10 0RF Follow up/Referrals: Gasper Rutherford, [Primary Care Provider] - Visit Report/Discharge Packet Instructions: DI for Orthostatic Hypotension, How to Prevent Falls Discharge Data Primary Care Provider: Gasper Rutherford
--- NOTE | 2021-10-08 17:02 | PC.NURSE ---
Discharge orders received. Patient's son finally answered his phone and was informed of patient's discharge orders. Patient's son would not come in to receive discharge instructions, states I already talked to the doctor and the long term care social worker and know what is going on and said I would keep an eye on him. Discharge instructions reviewed with patient and written prescription given to patient, patient states understanding and has no further questions at this time. IV dc'd intact. Patient was escorted out via wheelchair with gait belt on by [employer]. Patient states he will call his PCP's office tomorrow to arrange a follow up appointment, and states he expects [facility] tomorrow as arranged.
== END 2021-10-08 17:15 | disposition home or self-care (01) | DRG 57 ==
LOC: ED 19:37 → AC 09-26 06:08
PROVIDERS: Hospitalist; Internal Medicine; Admitting Provider Internal Medicine; Emergency Provider Emergency Medicine; PCP Family Medicine; Referring Provider Emergency Medicine; Visit Provider Internal Medicine
DX: G31.83 Neurocognitive disorder with Lewy bodies (principal); F02.80 Dementia in other diseases classified elsewhere, unspecified severity, without behavioral disturbance, psychotic disturbance, mood disturbance, and anxiety; R42 Dizziness and giddiness; I95.2 Hypotension due to drugs; F17.210 Nicotine dependence, cigarettes, uncomplicated; E11.9 Type 2 diabetes mellitus without complications; I25.10 Atherosclerotic heart disease of native coronary artery without angina pectoris; N40.1 Benign prostatic hyperplasia with lower urinary tract symptoms; R33.9 Retention of urine, unspecified; I10 Essential (primary) hypertension; J44.9 Chronic obstructive pulmonary disease, unspecified; F32.A Depression, unspecified; E78.5 Hyperlipidemia, unspecified; F41.9 Anxiety disorder, unspecified; E03.9 Hypothyroidism, unspecified; K21.9 Gastro-esophageal reflux disease without esophagitis; Z20.822 Contact with and (suspected) exposure to COVID-19; Z79.4 Long term (current) use of insulin; Z95.5 Presence of coronary angioplasty implant and graft; Z91.81 History of falling; Z23 Encounter for immunization
CPT/HCPCS: 36415; 51798; 70450; 70553; 71045; 80048; 80053; 80069; 80305; 80320; 80329; 81001; 82140; 82550; 82553; 82962; 83036; 83690; 84443; 84484; 85025; 85610; 85730; 87635; 90471; 90662; 93005; 94760; 97110; 97112; 97129; 97162; 97165; 97530; 97535; 99284; C9803; A9270; A9579; G0480; J1650; J1815; J2060

== ENCOUNTER 2021-11-08 22:08 | Emergency (ER) | payer MEDICARE, MEDICAID, SELFPAY ==
[2021-09-25 20:30] VITALS: BMI 33.3
[2021-11-08 22:16] VITALS: BP 177/86; PULSE 81; RESP 19; TEMP 36.9; O2SAT 98; BMI 31.9
--- NOTE | 2021-11-08 22:33 | DI.CT.S_ITS ---
PROCEDURE: CT HEAD/BRAIN WO CON INDICATIONS: multiple falls TECHNIQUE: Noncontrast 4.5 mm thick angled axial sections acquired from the foramen magnum to the vertex, with coronal and sagittal reformats. For radiation dose reduction, the following was used: automated exposure control, adjustment of mA and/or kV according to patient size. COMPARISON: [facility], CT, CT HEAD/BRAIN WO CON, 09/25/2021, 16:47. FINDINGS: Image quality: Excellent. CSF spaces: Basal cisterns are patent. No extra-axial fluid collections. There is mild cerebral volume loss, with resultant ventricular and sulcal prominence. Brain: No intracranial hemorrhage, mass, or mass effect. There are subcortical, periventricular and deep white matter hypodensities consistent with mild chronic small vessel ischemic changes. The sung-white matter junction appears preserved. There is intracranial internal carotid artery atherosclerosis. Skull and face: Calvarium and visualized facial bones are intact, without suspicious lesions. Sinuses: Visualized sinuses and mastoids are clear. IMPRESSION: 1. No acute intracranial abnormality. 2. Mild cerebral volume loss and chronic white matter small vessel ischemic changes. Dictated by: Pasha Dunn M.D. on 11/08/2021 at 23:07 Approved by: Pasha Dunn M.D. on 11/08/2021 at 23:09
--- NOTE | 2021-11-08 22:33 | DI.RAD.S_ITS ---
PROCEDURE: XR HIP W PEL IF DONE LT 2V INDICATIONS: pain fall TECHNIQUE: AP pelvis with lateral view of the left hip. COMPARISON: [facility], CR, XR HIP W PEL IF DONE RT 2V, 08/16/2021, 23:26. FINDINGS: Bones: No displaced fracture or dislocation. There is mild cortical irregularity along the posterior aspect of the left femoral neck. Pelvic ring appears intact. No suspicious bony lesions. Soft tissues: The visualized bowel gas pattern is normal. There are diffuse vascular calcifications. IMPRESSION: 1. No displaced fracture or dislocation. 2. Small focus of cortical irregularity along the posterior aspect of the left femoral neck. The findings are nonspecific and a nondisplaced fracture cannot be excluded. The differential includes possible collar osteophytosis or sequelae of a stress reaction. If clinical concern persists, further evaluation may be obtained with CT or MRI. Dictated by: Pasha Dunn M.D. on 11/08/2021 at 23:45 Approved by: Psaha Dunn M.D. on 11/08/2021 at 23:48
[2021-11-08 22:57] VITALS: BP 181/91; PULSE 78; O2SAT 97
[2021-11-08 23:00] VITALS: BP 175/94; PULSE 77; RESP 9; O2SAT 98
[2021-11-08 23:07] LABS: Add Manual Diff / Slide Review NO; Basophils Absolute Auto 200 /uL (0-100); Eosinophils Absolute Auto 300 /uL (0-450); Eosinophils Percent Auto 3.1 % (2-4); Hemoglobin 12.8 g/dL (13.5-17.5); Lymphocytes Absolute Auto 1100 /uL (1100-4500); Mean Corpuscular HGB Conc 34.6 % (30-36); Mean Corpuscular Hemoglobin 31.8 PG (26-34); Monocytes Absolute Auto 700 /uL (0-900); Monocytes Percent Auto 7.8 % (3-14); Neutrophils Absolute Auto 6500 /uL (1500-7000); Neutrophils Percent Auto 74.1 % (50-75); Platelet Count 215 X10^3/uL (150-400); Red Blood Cell Count 4.02 X10^6/uL (4.5-5.9); Red Cell Distribution Width 13.7 % (11.6-14.8); White Blood Cell Count 8.7 X10^3/uL (4.5-11.0)
[2021-11-08 23:12] LABS: Alanine Aminotransferase 25 IU/L (<50); Albumin 3.9 g/dL (3.5-5.0); Albumin Globulin Ratio 1.1 (1.0-2.8); Alkaline Phosphatase 78 U/L (38-126); Aspartate Aminotransferase 26 IU/L (17-59); BUN Creatinine Ratio 14.7 (6-22); Bilirubin Total 0.5 mg/dL (0.2-1.3); Blood Urea Nitrogen 15 mg/dL (9-20); Calcium 9.2 mg/dL (8.4-10.2); Carbon Dioxide 32 mmol/L (22-32); Chloride 101 mmol/L (98-107); Creatine Kinase 223 U/L (55-170); Estimated Glomerular Filt Rate > 60.0 mL/min (>60); Globulin 3.4 g/dL (1.7-4.1); Glucose 248 mg/dL (80-110); HEMOLYSIS < 15 (0-50); Lipase 35 U/L (23-300); Potassium 4.3 mmol/L (3.4-5.1); Sodium 134 mmol/L (137-145); Total Protein 7.3 g/dL (6.3-8.2)
[2021-11-08 23:24] LABS: Troponin I < 0.012 ng/mL (0.01-0.034)
[2021-11-08 23:27] LABS: CKMB % Relative Index 1.3 % (1.5-5.0); Creatine Kinase MB 3.01 ng/mL (<2.37)
[2021-11-08 23:30] VITALS: BP 179/96; PULSE 76; RESP 21; O2SAT 97
[2021-11-09] VITALS (8 sets, daily range): BP systolic 166–193; BP diastolic 77–138; PULSE 69–76; RESP 15–23; O2SAT 93–96
[2021-11-09 00:22] LABS: RBC Urine None Seen (0-5/HPF); WBC Urine None Seen (0-5/HPF)
[2021-11-09 00:23] LABS: Bacteria Urine None Seen; Hyaline Casts Urine 5-10/LPF
[2021-11-09 00:24] LABS: Culture Indicated Urine Cult Not Indicated
--- NOTE | 2021-11-09 01:21 | ED.FALL ---
HPI - Fall General Chief Complaint: Fall Stated Complaint: Multiple falls/dizziness Time Seen by Provider: 11/08/21 22:33 Source: patient and EMS Mode of arrival: EMS History of Present Illness HPI Narrative: Patient is a 66-year-old male with history of Lewy body dementia, type 2 DM coronary artery level Parkinson's presenting with multiple falls. He fell twice today and once last night. His last night he fell on his left hip and. Earlier today he felt like his legs were shaking and they just got away from him and he felt. If another fall today he did hit is head with no loss of consciousness, nausea or vomiting. He denies any chest pain or palpitations. He was actually seen here in September for something similar. He currently does not have any chest pain palpitations dizziness or lightheadedness. He says he typically gets around by scooter however he does get up and walk some. Family reports that he may be having some hallucinations, which nose report he has previously had as well. In the hospital from September 25 to October 08. It was found that he had orthostatic hypotension due to polypharmacy. There were attempts for him to get into a nursing facility however no beds were available at time. He was discharged home with home healthcare. He states he did home health is helping to find an outside facility for him and many other people are working on it as well. He admits that he is more confused than normal but is currently having some clarity. He thinks it is probably due to the dementia. He admits to having continuous visual and audio hallucinations denies any suicide or homicidal thoughts. Related Data Home Medications Medication Instructions Recorded Confirmed quetiapine 25 mg tablet (Seroquel) 25 mg PO BEDTIME 10/14/21 Previous Rx's Medication Instructions Recorded ipratropium 0.5 mg-albuterol 3 mg 3 ml INH QID #360 ml 03/12/19 (2.5 mg base)/3 mL nebulization soln Test strips #1 each 03/22/20 beclomethasone dipropionate 40 1 inhalation INHALATION BID #10.6 05/29/20 mcg/actuation HFA breath activated gram aerosol blood-glucose meter #1 ea 01/11/21 Disabled Parking Permit #1 ea 02/15/21 blood sugar diagnostic (Blood #100 ea 03/01/21 Glucose Test) lancets 33 gauge (BD Ultra Fine #100 ea 03/01/21 Lancets) gabapentin 300 mg capsule 900 mg PO BID #540 cap 04/12/21 levothyroxine 125 mcg tablet 125 mcg PO DAILY #90 tab 06/03/21 clopidogrel 75 mg tablet 75 mg PO DAILY #90 tab 07/15/21 triamcinolone acetonide 0.1 % 1 applic TOP DAILY #30 gram 07/15/21 topical cream insulin glargine U-300 conc 300 80 unit (0.2667 mL) SUBCUT BID #15 07/25/21 unit/mL (3 mL) subcutaneous pen ml citalopram 40 mg tablet (Celexa) 40 mg PO DAILY #90 tab 08/08/21 omeprazole 20 mg tablet,delayed 20 mg PO DAILY #90 tab 08/13/21 release methocarbamol 500 mg tablet 500 mg PO TID PRN #90 tab 08/19/21 bupropion HCl 300 mg 24 hr tablet, 300 mg PO QAM #90 tab 08/26/21 extended release albuterol sulfate 90 mcg/actuation 2 puff INHALATION QID PRN #18 gram 10/17/21 aerosol inhaler (Proventil HFA) pen needle, diabetic 31 gauge x #100 each 10/17/21/16 (Comfort EZ Pen [place]) lorazepam 1 mg tablet 1 mg PO BID PRN #30 tab 10/18/21 oxycodone 5 mg tablet 5 mg PO Q4-6H PRN #60 tab 10/18/21 insulin aspart U-100 100 unit/mL See Rx Instructions SUBCUT 10/22/21 (3 mL) subcutaneous pen (Novolog .COMPLEX #15 ml Flexpen U-100 Insulin aspart) atorvastatin 80 mg tablet 80 mg PO DAILY #90 tab 10/31/21 Allergies Allergy/AdvReac Type Severity Reaction Status Date / Time adhesive Allergy Mild REDNESS/ITC Verified 11/08/21 22:16 HINESS morphine Allergy Verified 11/08/21 22:16 Review of Systems Review of Systems ROS Unobtainable: All systems reviewed & are unremarkable except as noted in HPI and below Constitutional Constitutional: Denies body ache(s), Denies chills, Reports frequent falls, Denies headache(s), Denies increased appetite and Reports weakness Eyes Eyes: Denies blurry vision ENT Ears, Nose, Mouth, and Throat: Denies headache(s) and Denies sore throat Cardiovascular Cardiovascular: Denies chest pain and Denies irregular heart rhythm Gastrointestinal Gastrointestinal: Denies abdominal pain, Denies nausea and Denies vomiting Genitourinary Genitourinary: Denies urinary frequency Musculoskeletal Musculoskeletal: Reports as per HPI Integumentary/Breasts Skin/Breast: Denies rash Neurologic Neurologic: Reports frequent falls, Denies headache(s) and Reports weakness Patient History Medical History Bilateral otitis externa Cellulitis Chicken pox (1956) Chickenpox (1956) Chronic cough COPD (chronic obstructive pulmonary disease) Coronary artery disease (2006) Depression (2008) Diabetes (1994) Eczema Foot pain GERD (gastroesophageal reflux disease) (2012) Gout Hearing reduced Hip pain History of recurrent TIAs Hyperlipidemia Hypertension Hypothyroidism Kidney disease (2009) Measles (1955) Measles (1955) Mental health assessment declined Mumps (1958) Mumps (1958) Neuropathy Obstructive sleep apnea Otitis externa Screening for malignant neoplasm of colon Shoulder pain Sleep apnea Status post myocardial infarction Steatosis Strain of muscle of right groin region (03/30/18) Type 2 diabetes mellitus Well adult exam Surgical History Anesthesia History of heart artery stent (2006) History of heart artery stent (2010) Hx of shoulder surgery (2005) Family History Brother Age: 67 Diabetes mellitus Hyperlipidemia Mother Heart disease Hypertension Hyperlipidemia Diabetes mellitus Grandmother Diabetes mellitus Brother No problems noted. Sister Breast cancer Social History marital status: details: 3 years ago household members: none lives independently: Yes housing: apartment Smoking Status: Current every day smoker Tobacco: How many years used: 45 alcohol intake: current Smoking Status: Current every day smoker alcohol intake frequency: a few times a week Substance Use Type: marijuana Exam Initial Vital Signs Initial Vital Signs: Vital Signs Temperature 98.5 F 11/08/21 22:16 Pulse Rate 81 11/08/21 22:16 Respiratory Rate 19 11/08/21 22:16 Blood Pressure 177/86 H 11/08/21 22:16 Pulse Oximetry 98 11/08/21 22:16 GENERAL: Chronically ill alert 66-year-old male HEENT: Head atraumatic,EOMI, pupils reactive, face symmetric, moist mucous membranes CARDIOVASCULAR: Regular rate and rhythm without murmurs, rubs or gallops. RESPIRATORY: Breath sounds equal bilaterally, no wheezes rales or rhonchi. ABDOMEN: Soft, nontender. Normoactive bowel sounds all 4 quadrants. No guarding or rebound. EXTREMITIES: Normal range of motion, no clubbing or edema. Neurovascularly intact. Left hip slightly tender to palpation able flex extend internally and externally rotate without issue. There is no contusion. NEUROLOGICAL: Alert and oriented x4.Normal gait and speech. Slicing Machine Tender strength equal bilaterally moving all extremities. Legs are slightly tremorous SKIN: Chronic lower extremity wounds. Course Orders Ordered: ED Orders 11/08/21 22:33 CT head/brain wo con Stat XR hip w pel if done LT 2V Stat EKG-12 Lead Stat 11/08/21 22:51 Complete Blood Count AUTO DIFF Stat Comprehensive Metabolic Panel Stat Lipase Stat Troponin & CK Cardiac Panel Stat 11/09/21 00:03 Urine Microscopic Stat Discontinued Medications Hydromorphone HCl (Hydromorphone 0.5 Mg Inj) 0.5 mg IV NOW ONE Stop: 11/09/21 01:37 Last Admin: 11/09/21 03:13 Dose: 0.5 mg Documented by: IDRIS Vital Signs Vital signs: Vital Signs - 8 hr 11/08/21 22:57 11/08/21 23:00 11/08/21 23:30 Pulse Rate 78 77 76 Respiratory Rate 9 L 21 Blood Pressure 181/91 H 175/94 H 179/96 H Pulse Oximetry 97 98 97 11/09/21 00:00 11/09/21 00:30 11/09/21 01:00 Pulse Rate 76 73 73 Respiratory Rate 23 18 15 Blood Pressure 171/138 H 180/85 H 188/88 H Pulse Oximetry 11/09/21 01:30 11/09/21 02:00 11/09/21 02:30 Pulse Rate 76 69 71 Respiratory Rate 15 15 15 Blood Pressure 193/91 H 173/84 H 183/86 H Pulse Oximetry 94 96 11/09/21 03:00 11/09/21 03:12 Pulse Rate 70 71 Respiratory Rate 16 20 Blood Pressure 167/77 H 166/83 H Pulse Oximetry 93 94 MDM - Fall Lab Data Attestation: I reviewed the patient's lab results. Result diagrams: 11/08/21 22:51 11/08/21 22:51 Labs: Lab Results 11/08/21 11/08/21 11/09/21 Range/Units 22:51 22:51 00:03 WBC 8.7 (4.5-11.0) X10^3/uL RBC 4.02 L (4.5-5.9) X10^6/uL Hgb 12.8 L (13.5-17.5) g/dL Hct 37.0 L (41-53) % MCV 92.0 (80-100) fL MCH 31.8 (26-34) PG MCHC 34.6 (30-36) % RDW 13.7 (11.6-14.8) % Plt Count 215 (150-400) X10^3/uL Neut % (Auto) 74.1 (50-75) % Lymph % (Auto) 13.0 L (25-40) % [place] % (Auto) 7.8 (3-14) % Eos % (Auto) 3.1 (2-4) % Baso % (Auto) 2.0 (0-2) % Neut # (Auto) 6500 (7975-4293) /uL Lymph # (Auto) 1100 (1907-0837) /uL [place] # (Auto) 700 (0-900) /uL Eos # (Auto) 300 (0-450) /uL Baso # (Auto) 200 H (0-100) /uL Sodium 134 L (137-145) mmol/L Potassium 4.3 (3.4-5.1) mmol/L Chloride 101 (98-107) mmol/L Carbon Dioxide 32 (22-32) mmol/L BUN 15 (9-20) mg/dL Creatinine 1.02 (0.66-1.25) mg/dL Estimated GFR > 60.0 (>60) mL/min BUN/Creatinine Ratio 14.7 (6-22) Glucose 248 H (80-110) mg/dL Calcium 9.2 (8.4-10.2) mg/dL Total Bilirubin 0.5 (0.2-1.3) mg/dL AST 26 (17-59) IU/L ALT 25 (<50) IU/L Alkaline Phosphatase 78 (38-126) U/L Total Creatine Kinase 223 H (55-170) U/L CK-MB (CK-2) 3.01 H (<2.37) ng/mL CK-MB (CK-2) Rel Index 1.3 L (1.5-5.0) % Troponin I < 0.012 (0.01-0.034) ng/mL Total Protein 7.3 (6.3-8.2) g/dL Albumin 3.9 (3.5-5.0) g/dL Globulin 3.4 (1.7-4.1) g/dL Albumin/Globulin Ratio 1.1 (1.0-2.8) Lipase 35 (23-300) U/L Urine RBC None seen (0-5/HPF) Urine WBC None seen (0-5/HPF) Urine Bacteria None seen (None) Hyaline Casts 5-10/lpf (None) Ur Culture Indicated? Cult not indicated Urine Dip Bedside Urine Glucose 1000 mg/dl Bedside Urine Bilirubin - Negative Bedside Urine Ketone - Negative Urine Specific [place] 1.025 Bedside Urine Occult Blood +/- Bedside Urine pH 6.0 Bedside Urine Protein ++ 100 Bedside Urine Urobilinogen +/- 1mg Bedside Urine Nitrite - Negative Bedside Urine Leukocytes - Negative Esterase Imaging Data CT scan - head: Radiologist's Impression: PROCEDURE:? CT HEAD/BRAIN WO CON ? INDICATIONS:? multiple falls ? TECHNIQUE:? Noncontrast 4.5 mm thick angled axial sections acquired from the foramen magnum to the vertex, with coronal and sagittal reformats.? For radiation dose reduction, the following was used:? automated exposure control, adjustment of mA and/or kV according to patient size.? ? COMPARISON:? [facility], CT, CT HEAD/BRAIN WO CON, 09/25/2021, 16:47. ? FINDINGS:? Image quality:? Excellent.? ? CSF spaces:? Basal cisterns are patent.? No extra-axial fluid collections.? There is mild cerebral volume loss, with resultant ventricular and sulcal prominence.? ? Brain:? No intracranial hemorrhage, mass, or mass effect.? There are subcortical, periventricular and deep white matter hypodensities consistent with mild chronic small vessel ischemic changes.? The sung-white matter junction appears preserved.? There is intracranial internal carotid artery atherosclerosis.? ? Skull and face:? Calvarium and visualized facial bones are intact, without suspicious lesions.? ? Sinuses:? Visualized sinuses and mastoids are clear.? ? IMPRESSION:? ? 1. No acute intracranial abnormality. ? 2. Mild cerebral volume loss and chronic white matter small vessel ischemic changes.? ? ? Dictated by: Pasha Dunn M.D. on 11/08/2021 at 23:07 ? ? Approved by: Pasha Dunn M.D. on 11/08/2021 at 23:09 ? Extremity x-ray #1: Radiologist's Impression: PROCEDURE:? XR HIP W PEL IF DONE LT 2V ? INDICATIONS:? pain fall ? TECHNIQUE:? AP pelvis with lateral view of the left hip. ? COMPARISON:? [facility], CR, XR HIP W PEL IF DONE RT 2V, 08/16/2021, 23:26. ? FINDINGS:? ? Bones:? No displaced fracture or dislocation.? There is mild cortical irregularity along the posterior aspect of the left femoral neck.? Pelvic ring appears intact.? No suspicious bony lesions.? ? Soft tissues:? The visualized bowel gas pattern is normal.? There are diffuse vascular calcifications. ? ? IMPRESSION:? ? 1. No displaced fracture or dislocation. ? 2. Small focus of cortical irregularity along the posterior aspect of the left femoral neck.? The findings are nonspecific and a nondisplaced fracture cannot be excluded.? The differential includes possible collar osteophytosis or sequelae of a stress reaction.? If clinical concern persists, further evaluation may be obtained with CT or MRI. ? ? ? Dictated by: Pasha Dunn M.D. on 11/08/2021 at 23:45 ? ? ECG Data Attestation: I personally reviewed and interpreted this ECG as follows: Prior ECG tracings: available for review Interpretation: Normal sinus rhythm rate 75 p.r. interval 208 QRS [address] changes no T-wave inversions similar to previous EKG MDM Narrative Medical decision making narrative: The patient is overall appearing at his baseline. No injuries from fall no sign of infection or cause of increased confusion. Reports from previous admissions states that he was having hallucinations at that time. It appears as though they did try to get him into a longterm facility but or unable to due to bed availability. He set up with home healthcare multiple people are trying to place him including [facility] in a longterm facility. Discharge Plan Departure Patient Disposition: Home Clinical Impression: Fall Instructions: How to Prevent Falls Activity Restrictions/Additional Instructions: *You have been diagnosed with falls *What to do: At this time I strongly recommend finding long-term care facility. There is no indication for hospitalization at this time. Confusion is likely secondary to worsening dementia. No injury from falls. Continue to encourage use of scooter *Continue to take medications as directed *Follow up with your primary care provider in 2-3 days or call [phone] *Return to ER if you should have any new, worsening or concerning symptoms Prescriptions: No Action (DME) Test strips 100 strip Qty: 1 10RF Rx Instructions: Check blood glucose 3 times daily beclomethasone dipropionate 40 mcg/actuation HFA aerosol breath activated 1 inhalation Inhalation BID Qty: 10.6 5RF (DME) blood-glucose meter Kit See Rx Instructions .ROUTE .MEDSUPPLY Qty: 1 0RF Rx Instructions: Use to test blood glucose BID (DME) Disabled Parking Permit See Rx Instructions .ROUTE .MEDSUPPLY Qty: 1 0RF Rx Instructions: Valid for 5 years (DME) Blood Glucose Test Strip See Rx Instructions .ROUTE .MEDSUPPLY Qty: 100 6RF Rx Instructions: Use to test blood glucose twice daily. (DME) lancets [BD Ultra Fine Lancets] 33 gauge misc See Rx Instructions .ROUTE .MEDSUPPLY Qty: 100 6RF Rx Instructions: Use to test blood glucose twice daily gabapentin 300 mg capsule 900 mg PO BID Qty: 540 3RF levothyroxine 125 mcg tablet 125 mcg PO DAILY Qty: 90 3RF clopidogrel 75 mg tablet 75 mg PO DAILY Qty: 90 3RF Label Comments: Pt reports not taking for 1 week for upcoming colonoscopy on 10/08 insulin glargine U-300 conc 300 unit/mL (3 mL) insulin pen 80 unit SUBCUT BID Qty: 15 11RF citalopram [Celexa] 40 mg tablet 40 mg PO DAILY Qty: 90 1RF omeprazole 20 mg tablet,delayed release (DR/EC) 20 mg PO DAILY Qty: 90 1RF methocarbamol 500 mg tablet 500 mg PO TID PRN (Reason: mm tightness) Qty: 90 1RF quetiapine [Seroquel] 25 mg tablet 25 mg PO BEDTIME 0RF albuterol sulfate [Proventil HFA] 90 mcg/actuation HFA aerosol inhaler 2 puff INHALATION QID PRN (Reason: shortness of breath) Qty: 18 5RF (DME) pen needle, diabetic [Comfort EZ Pen [place]] 31 gauge x 5/16 needle See Dose Instructions .ROUTE .MEDSUPPLY Qty: 100 5RF Dose Instruction: As directed Rx Instructions: Use to inject insulin 5 times per day oxycodone 5 mg tablet 5 mg PO Q4-6H PRN (Reason: pain) Qty: 60 0RF lorazepam 1 mg tablet 1 mg PO BID PRN (Reason: sedation) Qty: 30 1RF Novolog Flexpen U-100 Insulin 100 unit/mL (3 mL) insulin pen See Rx Instructions SUBCUT .COMPLEX Qty: 15 11RF Rx Instructions: Five-10 units a.c. t.i.d. depending on carbohydrate content of meal atorvastatin 80 mg tablet 80 mg PO DAILY Qty: 90 0RF triamcinolone acetonide 0.1 % cream 1 applic TOP DAILY Qty: 30 5RF bupropion HCl 300 mg tablet extended release 24 hr 300 mg PO QAM Qty: 90 1RF ipratropium-albuterol 0.5 mg-3 mg(2.5 mg base)/3 mL Solution For Nebulization 3 ml INH QID Qty: 360 0RF Referrals: Gasper Rutherford DO [Primary Care Provider] -
[2021-11-09] MEDS: HYDROMORPHONE 0.5 MG INJ IV (03:13)
== END 2021-11-09 03:29 | disposition home or self-care (01) ==
PROVIDERS: Emergency Provider Emergency Medicine; PCP Family Medicine
DX: R41.0 Disorientation, unspecified (principal); M25.552 Pain in left hip; R53.1 Weakness; I10 Essential (primary) hypertension; W18.30XA Fall on same level, unspecified, initial encounter; Z91.81 History of falling; F17.200 Nicotine dependence, unspecified, uncomplicated
CPT/HCPCS: 36415; 70450; 73502; 80053; 81003; 81015; 82550; 82553; 83690; 84484; 85025; 93005; 93010; 96374; 99284; J1170

== ENCOUNTER 2021-11-09 06:34 | Observation (INO) | payer MEDICARE, MEDICAID, SELFPAY ==
[2021-09-25 20:30] VITALS: BMI 33.3
[2021-11-09] VITALS (9 sets, daily range): BP systolic 127–161; BP diastolic 63–88; PULSE 67–77; RESP 16–18; TEMP 36.5–36.8; O2SAT 94–98; BMI 207.9; BMI 108.5
--- NOTE | 2021-11-09 06:51 | PC.NURSE ---
pt states I took a couple of hits of weed then I waited about 15-20 min then I got up to fix me something to eat and I think I fell hitting my head on the wall
--- NOTE | 2021-11-09 07:21 | ED_ITS ---
HPI - Fall General Chief Complaint: Fall Stated Complaint: fall after smoking marijuana Time Seen by Provider: 11/09/21 07:21 Source: patient and EMS Mode of arrival: EMS History of Present Illness HPI Narrative: This is a 66-year-old man who comes emergency department after ground level fall. Patient was just seen earlier in the evening. Patient has a history of Lewy body dementia, type 2 diabetes, coronary artery and Parkinson's who has had multiple falls in the past and overnight. He was here in the hospital in September similarly he was admitted and they attempted to place him in a facility but could not find a bed. He ultimately went home with home health care Thursday through Thursday. Patient states this evening he was discharged home. He had sat down to smoke some marijuana and then got up and fell. Patient states he did hit his head. He denies loss of consciousness. He had a headache immediately afterwards but it is improved. He denies any neck or back pain. He does have some low back pain but nothing new or changed. He denies numbness, tingling in his extremities he states that his legs just got weekly and fell which is normally what happens. He denies any chest pain or pressure. He has chronic shortness of breath that is not worsened. He states he has COPD. No nausea, no vomiting. No cold cough or congestion. Patient states that he think he can return home today but after discussion he does not have home health care over the weekend. He is on Plavix daily, atorvastatin he uses inhalers but does not use them regularly as well as insulin, levothyroxine and quetiapine. Related Data Home Medications Medication Instructions Recorded Confirmed quetiapine 25 mg tablet (Seroquel) 25 mg PO BEDTIME 10/14/21 11/09/21 Previous Rx's Medication Instructions Recorded ipratropium 0.5 mg-albuterol 3 mg 3 ml INH QID #360 ml 03/12/19 (2.5 mg base)/3 mL nebulization soln Test strips #1 each 03/22/20 beclomethasone dipropionate 40 1 inhalation INHALATION BID #10.6 05/29/20 mcg/actuation HFA breath activated gram aerosol blood-glucose meter #1 ea 01/11/21 Disabled Parking Permit #1 ea 02/15/21 blood sugar diagnostic (Blood #100 ea 03/01/21 Glucose Test) lancets 33 gauge (BD Ultra Fine #100 ea 03/01/21 Lancets) gabapentin 300 mg capsule 900 mg PO BID #540 cap 04/12/21 levothyroxine 125 mcg tablet 125 mcg PO DAILY #90 tab 06/03/21 clopidogrel 75 mg tablet 75 mg PO DAILY #90 tab 07/15/21 triamcinolone acetonide 0.1 % 1 applic TOP DAILY #30 gram 07/15/21 topical cream insulin glargine U-300 conc 300 80 unit (0.2667 mL) SUBCUT BID #15 07/25/21 unit/mL (3 mL) subcutaneous pen ml citalopram 40 mg tablet (Celexa) 40 mg PO DAILY #90 tab 08/08/21 omeprazole 20 mg tablet,delayed 20 mg PO DAILY #90 tab 08/13/21 release methocarbamol 500 mg tablet 500 mg PO TID PRN #90 tab 08/19/21 bupropion HCl 300 mg 24 hr tablet, 300 mg PO QAM #90 tab 08/26/21 extended release albuterol sulfate 90 mcg/actuation 2 puff INHALATION QID PRN #18 gram 10/17/21 aerosol inhaler (Proventil HFA) pen needle, diabetic 31 gauge x #100 each 10/17/2103/17 (Comfort EZ Pen [place]) lorazepam 1 mg tablet 1 mg PO BID PRN #30 tab 10/18/21 oxycodone 5 mg tablet 5 mg PO Q4-6H PRN #60 tab 10/18/21 insulin aspart U-100 100 unit/mL See Rx Instructions SUBCUT 10/22/21 (3 mL) subcutaneous pen (Novolog .COMPLEX #15 ml Flexpen U-100 Insulin aspart) atorvastatin 80 mg tablet 80 mg PO DAILY #90 tab 10/31/21 Allergies Allergy/AdvReac Type Severity Reaction Status Date / Time adhesive Allergy Mild REDNESS/ITC Verified 11/08/21 22:16 HINESS morphine Allergy Verified 11/08/21 22:16 Review of Systems Review of Systems ROS Unobtainable: All systems reviewed & are unremarkable except as noted in HPI and below Patient History Medical History Bilateral otitis externa Cellulitis Chicken pox (1956) Chickenpox (1956) Chronic cough COPD (chronic obstructive pulmonary disease) Coronary artery disease (2006) Depression (2009) Diabetes (1994) Eczema Foot pain GERD (gastroesophageal reflux disease) (2012) Gout Hearing reduced Hip pain History of recurrent TIAs Hyperlipidemia Hypertension Hypothyroidism Kidney disease (2009) Measles (1955) Measles (1955) Mental health assessment declined Mumps (1958) Mumps (1958) Neuropathy Obstructive sleep apnea Otitis externa Screening for malignant neoplasm of colon Shoulder pain Sleep apnea Status post myocardial infarction Steatosis Strain of muscle of right groin region (03/30/18) Type 2 diabetes mellitus Well adult exam Surgical History Anesthesia History of heart artery stent (2006) History of heart artery stent (2010) Hx of shoulder surgery (2005) Family History Brother Age: 67 Diabetes mellitus Hyperlipidemia Mother Heart disease Hypertension Hyperlipidemia Diabetes mellitus Grandmother Diabetes mellitus Brother No problems noted. Sister Breast cancer Social History marital status: details: 3 years ago household members: none lives independently: Yes housing: apartment Smoking Status: Current every day smoker Tobacco: How many years used: 45 alcohol intake: current Smoking Status: Current every day smoker alcohol intake frequency: a few times a week Substance Use Type: marijuana Exam Narrative Exam Narrative: GEN: C-collar in ED. Patient appears in mild distress. HEAD: No evidence of trauma, no raccoon/G[place]uno sign. NECK: Nontender, painless range of motion, trachea midline Negative Nexus criteria, there is no midline line tenderness, distracting in jury, altered mental status, neuro deficit, recent EtOH. EYES: PERRLA, EOMI ENT: External inspection normal, trachea is midline, TM's are normal no hemotypanum, Nares are clear, no septal hematoma, no dental or oral injury, airway is normal and with normal occlusion, No bony tenderness RESP: Chest is nontender and has symmetric movement, no ecchymosis, breath sounds are normal no crackles, wheezes or rales CVS: Heart sounds are normal, no murmur noted, No JVD. ABG/GI: Nontender, soft, normal bowel sounds, no distention, no organomegaly, pelvic rock is negative NEURO: Oriented AOx3, neuro is grossly intact, sensation and motor is normal all 4 extremities moving, cranial nerves II through XII are intact, GCS is 15 PSYCH: Normal mood and affect SKIN: Intact, warm and dry, no crepitus and without decubitus BACK: No CVA tenderness, no vertebral tenderness, no step-off's, no crepitus EXT: Patient has several small abrasions on his extremities but no ecchymosis, nontender, no pedal edema, normal range of motion of extremities. Patient able to lift both legs off the bed, strength is equal bilateral and upper extremities. Initial Vital Signs Initial Vital Signs: Vital Signs Temperature 97.7 F 11/09/21 06:45 Pulse Rate 75 11/09/21 06:45 Respiratory Rate 16 11/09/21 06:45 Blood Pressure 161/88 H 11/09/21 06:45 Pulse Oximetry 96 11/09/21 06:45 Course Orders Ordered: ED Orders 11/09/21 07:37 CT cervical spine wo con Stat CT head/brain wo con Stat 11/09/21 08:28 COVID19 - ADMIT (ELECTRONIC SCANNER OPERATOR swab/PCR) Stat Complete Blood Count AUTO DIFF Stat Comprehensive Metabolic Panel Stat Ethanol (ETOH) Stat Troponin & CK Cardiac Panel Stat Albuterol (Albuterol 2.5 Mg/3 Ml Neb (Adult)) 2.5 mg INH Q2H PRN PRN Reason: shortness of breath Albuterol/Ipratropium (Albuterol/Ipratropium 3 Ml Ampul) 3 ml INH QID LUCIANO Atorvastatin Calcium (Atorvastatin 20 Mg Tablet) 80 mg PO BEDTIME LUCIANO Budesonide (Budesonide 0.5 Mg/2 Ml Neb) 0.5 mg INH RTBID LUCIANO Bupropion HCl (Bupropion Xl 150 Mg Tab) 300 mg PO DAILY LUCIANO Citalopram Hydrobromide (Citalopram 10 Mg Tablet) 40 mg PO DAILY LUCIANO Clopidogrel Bisulfate (Clopidogrel 75 Mg Tablet) 75 mg PO DAILY LUCIANO Gabapentin (Gabapentin 300 Mg Capsule) 900 mg PO BID LUCIANO Insulin Glargine (Insulin Glargine 100 Unit/Ml 3ml Pen) 80 unit SUBCUT BID LUCIANO Levothyroxine Sodium (Levothyroxine 125 Mcg Tablet) 125 mcg PO DAILY@0600 LUCIANO Methocarbamol (Methocarbamol 500 Mg Tablet) 500 mg PO TID PRN PRN Reason: mm tightness Naloxone HCl (Naloxone 0.4 Mg/Ml Vial) 0.2 mg IV Q2MIN PRN PRN Reason: Opiate Reversal Oxycodone HCl (Oxycodone Ir 5 Mg Tablet) 5 mg PO Q4H PRN PRN Reason: pain Pantoprazole Sodium (Pantoprazole Dr 20 Mg Tablet) 20 mg PO 0600 LUCIANO Quetiapine Fumarate (Quetiapine 25 Mg Tablet) 25 mg PO BEDTIME LUCIANO Reevaluation(s) Reevaluation #1: Patient denies any pain at this time. C-collar was removed he has good movement. We sat him up in bed little bit. We attempted ambulation trial 2 separate times with our TOOL ROOM GEAR MACHINE OPERATOR as well as our nursing staff and patient failed and required 2 person assist both times. He is agreeable to observation. Has assi stance Thursday through Thursday at home but nothing here over the weekend. Time: 10:48 Consultations Consultation #1: Dr. Silva, kindly accepts for observation. Weakness with Parkinson's and Lewy body dementia. Patient has home health care 5 out of the 7 days of the week. He is quite weak on exam evaluation. He is not have any acute neurologic changes, does smoke marijuana which may contribute but has significant medical issues contributing to his weakness such as his Parkinson's disease. Home health care has been attempting to find him placement but has not been successful so far and when he was here September they also attempted to find placement but there was no bed availability. Vital Signs Vital signs: Vital Signs - 8 hr 11/09/21 08:09 11/09/21 08:10 11/09/21 08:30 Pulse Rate 73 72 76 Respiratory Rate Blood Pressure 145/79 H 131/63 Pulse Oximetry 98 97 98 11/09/21 09:39 11/09/21 10:21 Pulse Rate 67 72 Respiratory Rate 18 17 Blood Pressure 137/67 127/72 Pulse Oximetry 94 96 MDM - Fall Lab Data Result diagrams: 11/09/21 08:28 11/09/21 08:28 Labs: Lab Results 11/09/21 11/09/21 11/09/21 Range/Units 08:28 08:28 08:28 WBC 8.7 (4.5-11.0) X10^3/uL RBC 4.12 L (4.5-5.9) X10^6/uL Hgb 13.1 L (13.5-17.5) g/dL Hct 38.0 L (41-53) % MCV 92.2 (80-100) fL MCH 31.8 (26-34) PG MCHC 34.5 (30-36) % RDW 14.0 (11.6-14.8) % Plt Count 219 (150-400) X10^3/uL Neut % (Auto) 70.1 (50-75) % Lymph % (Auto) 18.7 L (25-40) % [place] % (Auto) 7.9 (3-14) % Eos % (Auto) 2.9 (2-4) % Baso % (Auto) 0.4 (0-2) % Neut # (Auto) 6100 (1944-2414) /uL Lymph # (Auto) 1600 (2622-2140) /uL [place] # (Auto) 700 (0-900) /uL Eos # (Auto) 300 (0-450) /uL Baso # (Auto) 0 (0-100) /uL Sodium 135 L (137-145) mmol/L Potassium 3.9 (3.4-5.1) mmol/L Chloride 102 (98-107) mmol/L Carbon Dioxide 29 (22-32) mmol/L BUN 14 (9-20) mg/dL Creatinine 0.86 (0.66-1.25) mg/dL Estimated GFR > 60.0 (>60) mL/min BUN/Creatinine Ratio 16.3 (6-22) Glucose 191 H (80-110) mg/dL Calcium 8.8 (8.4-10.2) mg/dL Total Bilirubin 0.7 (0.2-1.3) mg/dL AST 29 (17-59) IU/L ALT 26 (<50) IU/L Alkaline Phosphatase 84 (38-126) U/L Total Creatine Kinase 206 H (55-170) U/L CK-MB (CK-2) 3.49 H (<2.37) ng/mL CK-MB (CK-2) Rel Index 1.7 (1.5-5.0) % Troponin I < 0.012 (0.01-0.034) ng/mL Total Protein 7.2 (6.3-8.2) g/dL Albumin 3.8 (3.5-5.0) g/dL Globulin 3.4 (1.7-4.1) g/dL Albumin/Globulin Ratio 1.1 (1.0-2.8) Ethyl Alcohol < 10 ( - 10) mg/dL SARS-CoV-2 (PCR) Negative (Negative) Imaging Data CT scan - head: Radiologist's Impression: [address] [address] [address] Scan Report Signed Patient: Carlos Randall MR#: [id number] : 1955 Acct:[id number] Age/Sex: 66 / M Date of Service: 11/09/21 Loc: ED Accession Number: [id number] ?? Procedure: CT head/brain wo con Ordering Provider: Giselle Briggs D.O. PROCEDURE:? CT HEAD/BRAIN WO CON ? INDICATIONS:? fall ? TECHNIQUE:? Noncontrast 4.5 mm thick angled axial sections acquired from the foramen magnum to the vertex, with coronal and sagittal reformats.? For radiation dose reduction, the following was used:? automated exposure control, adjustment of mA and/or kV according to patient size.? ? COMPARISON:? [facility], CT, CT HEAD/BRAIN WO CON, 09/25/2021, 16:47.? [facility], CT, CT HEAD/BRAIN WO CON, 11/08/2021, 22:44. ? FINDINGS:? Image quality:? Excellent.? ? CSF spaces:? Basal cisterns are patent.? No extra-axial fluid collections.? The ventricles are symmetric in size and shape.? ? Brain:? No intracranial bleeds or masses.? There is cerebral volume loss for age, with resultant ventricular and sulcal prominence.? There are periventricular and deep white matter chronic small vessel ischemic changes.? This includes a remote subcentime ter lacunar infarct within the left caudate. There is intracranial internal carotid artery atherosclerosis.? ? Skull and face:? Calvarium and visualized facial bones appear intact, without suspicious lesions.? ? Sinuses:? Visualized sinuses and mastoids are clear.? ? IMPRESSION:? ? Stable head CT from 11/08/21. No evidence of acute intracranial hemorrhage or displaced skull fracture. ? Findings most consistent with microvascular ischemic changes and cerebral volume loss. ? ? Dictated by: Ricardo Gentile D.O. on 11/09/2021 at 7:14 ? ? Approved by: Ricardo Gentile D.O. on 11/09/2021 at 7:19? CT - cervical spine: Radiologist's Impression: Close Head CT (Signed) Gentile,Ricardo - 11/09/[address] (Signed) Seferino,Ricardo - 11/09/21 Hip X-Ray (Signed) Pasha Dunn - 11/08/[address] (Signed) Pasha Dunn - 11/08/21 DI Result CC 10/28/21 DI Result CC 10/28/21 Telemetry Strips 09/25/[address] (Signed) Perri Castillo - 09/25/21 Chest X-Ray (Signed) Harrell,Terrence - 09/25/21 Brain MRI (Signed) Nathan Doyle - 09/25/21 Thoracic Spine X-Ray (Signed) Call,Ed - 09/14/21 Lumbar Spine X-Ray (Signed) Call,Ed - 09/14/[address] (Signed) Cesia Cooper - 08/17/21 Hip X-Ray (Signed) Cesia Cooper - 08/16/21 Foot MRI (Signed) Gera Mckay - 08/12/21 Foot X-Ray (Signed) Harrell,Terrence - 08/12/21 Chest X-Ray (Signed) Harrell,Terrence - 08/12/21 Hip X-Ray (Signed) Keron Colunga - 06/24/21 Chest X-Ray (Signed) Parviz Waite - 04/29/21 Abdomen Ultrasound (Signed) Parviz Waite - 04/29/21 Abdomen Ultrasound (Signed) Keron Colunga - 04/02/21 Chest X-Ray (Signed) Keron Colunga - 04/02/21 Chest/Abdomen/Pelvis CT (Signed) Nathan Doyle - 03/22/21 Abdomen Ultrasound (Signed) Nathan Doyle - 03/22/21 Chest X-Ray (Signed) Nathan Doyle - 03/22/21 Cervical Spine MRI (Signed) Jarred Topete - 12/27/20 Cervical Spine X-Ray (Signed) Jarred Topete - 08/22/20 Lumbar Spine X-Ray (Signed) Cesia Cooper - 07/25/20 Chest/Abdomen/Pelvis CTA (Signed) Viri Jacobsen - 04/24/20 Chest X-Ray (Signed) CynthiaPastora - 04/24/20 Launch?Image [address] [address] [address] Scan Report Signed Patient: Carlos Randall MR#: [id number] : 1955 Acct:[id number] Age/Sex: 66 / M Date of Service: 11/09/21 Loc: ED Accession Number: [id number] ?? Procedure: CT cervical spine wo con Ordering Provider: Giselle Briggs D.O. PROCEDURE:? CT CERVICAL SPINE WO CON ? INDICATIONS:? fall ? TECHNIQUE:? Noncontrast 3 mm thick sections acquired from the skull base to the T4 level.? Sagittal and coronal reformats were then constructed.? For radiation dose reduction, the following was used:? automated exposure control, adjustment of mA and/or kV according to patient size.? ? COMPARISON:? [facility], CT, CT CERVICAL SPINE WO CON, 12/22/2018, 3:37. ? FINDINGS:? Image quality:? Excellent.? ? Bones:? No fractures or dislocations.? Minimal degenerative anterolisthesis of C2 on C3.? There is focal reversal of normal cervical lordosis centered at C4-C5.? Vertebral body heights are maintained.? There is multilevel intervertebral disc space loss with uncovertebral joint and facet arthropathy as well as endplate degenerative changes.? There is mild spinal canal stenosis posterior to C3-C4 and C5-C6.? Multilevel neural foraminal stenosis which is worse on the right at C3-C4 and C4-C5 and at least moderate in severity. ? Soft tissues:? Prevertebral soft tissues are normal in thickness.? No paravertebral hematomas.? No apical pneumothoraces.? ? ? IMPRESSION:? ? No acute fracture or traumatic dislocation. ? Multilevel cervical spondylopathy. ? ? ? Dictated by: Ricardo Gentile D.O. on 11/09/2021 at 7:19 ? ? Approved by: Ricardo Gentile D.O. on 11/09/2021 at 7:24?? MDM Narrative Medical decision making narrative: This is a 66-year-old who had a ground level fall earlier today after smoking marijuana. He had been in the department 2 hours prior for a fall. He has had visit in September most recently with similar they attempted to find placement for weakness he has Lewy body dementia, Parkinson's this is likely contributing to his recurrent falls. Patient does not have any clear new causes of his recurrent falls. I spoke with the hospitalist who kindly accepts Discharge Plan Departure Patient Disposition: Admitted as Observation Clinical Impression: Falls, Parkinson disease, Weakness Admit Date/Time: 11/09/21 10:46 Admit Provider: Bonnie Silva
--- NOTE | 2021-11-09 07:37 | DI.CT.S_ITS ---
PROCEDURE: CT CERVICAL SPINE WO CON INDICATIONS: fall TECHNIQUE: Noncontrast 3 mm thick sections acquired from the skull base to the T4 level. Sagittal and coronal reformats were then constructed. For radiation dose reduction, the following was used: automated exposure control, adjustment of mA and/or kV according to patient size. COMPARISON: [facility], CT, CT CERVICAL SPINE WO CON, 12/22/2018, 3:37. FINDINGS: Image quality: Excellent. Bones: No fractures or dislocations. Minimal degenerative anterolisthesis of C2 on C3. There is focal reversal of normal cervical lordosis centered at C4-C5. Vertebral body heights are maintained. There is multilevel intervertebral disc space loss with uncovertebral joint and facet arthropathy as well as endplate degenerative changes. There is mild spinal canal stenosis posterior to C3-C4 and C5-C6. Multilevel neural foraminal stenosis which is worse on the right at C3-C4 and C4-C5 and at least moderate in severity. Soft tissues: Prevertebral soft tissues are normal in thickness. No paravertebral hematomas. No apical pneumothoraces. IMPRESSION: No acute fracture or traumatic dislocation. Multilevel cervical spondylopathy. Dictated by: Ricardo Gentile D.O. on 11/09/2021 at 7:19 Approved by: Ricardo Gentile D.O. on 11/09/2021 at 7:24
--- NOTE | 2021-11-09 07:37 | DI.CT.S_ITS ---
PROCEDURE: CT HEAD/BRAIN WO CON INDICATIONS: fall TECHNIQUE: Noncontrast 4.5 mm thick angled axial sections acquired from the foramen magnum to the vertex, with coronal and sagittal reformats. For radiation dose reduction, the following was used: automated exposure control, adjustment of mA and/or kV according to patient size. COMPARISON: [facility], CT, CT HEAD/BRAIN WO CON, 09/25/2021, 16:47. [facility], CT, CT HEAD/BRAIN WO CON, 11/08/2021, 22:44. FINDINGS: Image quality: Excellent. CSF spaces: Basal cisterns are patent. No extra-axial fluid collections. The ventricles are symmetric in size and shape. Brain: No intracranial bleeds or masses. There is cerebral volume loss for age, with resultant ventricular and sulcal prominence. There are periventricular and deep white matter chronic small vessel ischemic changes. This includes a remote subcentimeter lacunar infarct within the left caudate. There is intracranial internal carotid artery atherosclerosis. Skull and face: Calvarium and visualized facial bones appear intact, without suspicious lesions. Sinuses: Visualized sinuses and mastoids are clear. IMPRESSION: Stable head CT from 11/08/21. No evidence of acute intracranial hemorrhage or displaced skull fracture. Findings most consistent with microvascular ischemic changes and cerebral volume loss. Dictated by: Ricardo Gentile D.O. on 11/09/2021 at 7:14 Approved by: Ricardo Gentile D.O. on 11/09/2021 at 7:19
--- NOTE | 2021-11-09 08:33 | PC.NURSE ---
second piv placed and labs drawn. blood band and purple top also drawn and sent to lab.
[2021-11-09 08:50] LABS: Add Manual Diff / Slide Review NO; Basophils Absolute Auto 0 /uL (0-100); Basophils Percent Auto 0.4 % (0-2); Eosinophils Absolute Auto 300 /uL (0-450); Eosinophils Percent Auto 2.9 % (2-4); Hemoglobin 13.1 g/dL (13.5-17.5); Lymphocytes Absolute Auto 1600 /uL (1100-4500); Lymphocytes Percent Auto 18.7 % (25-40); Mean Corpuscular HGB Conc 34.5 % (30-36); Mean Corpuscular Hemoglobin 31.8 PG (26-34); Mean Corpuscular Volume 92.2 fL (80-100); Monocytes Absolute Auto 700 /uL (0-900); Monocytes Percent Auto 7.9 % (3-14); Neutrophils Absolute Auto 6100 /uL (1500-7000); Neutrophils Percent Auto 70.1 % (50-75); Platelet Count 219 X10^3/uL (150-400); Red Blood Cell Count 4.12 X10^6/uL (4.5-5.9); White Blood Cell Count 8.7 X10^3/uL (4.5-11.0)
[2021-11-09 09:01] LABS: Alanine Aminotransferase 26 IU/L (<50); Albumin 3.8 g/dL (3.5-5.0); Albumin Globulin Ratio 1.1 (1.0-2.8); Alkaline Phosphatase 84 U/L (38-126); Aspartate Aminotransferase 29 IU/L (17-59); BUN Creatinine Ratio 16.3 (6-22); Bilirubin Total 0.7 mg/dL (0.2-1.3); Blood Urea Nitrogen 14 mg/dL (9-20); Calcium 8.8 mg/dL (8.4-10.2); Carbon Dioxide 29 mmol/L (22-32); Chloride 102 mmol/L (98-107); Creatine Kinase 206 U/L (55-170); Estimated Glomerular Filt Rate > 60.0 mL/min (>60); Ethanol (ETOH) < 10 mg/dL; Globulin 3.4 g/dL (1.7-4.1); Glucose 191 mg/dL (80-110); HEMOLYSIS < 15 (0-50); Potassium 3.9 mmol/L (3.4-5.1); Sodium 135 mmol/L (137-145); Total Protein 7.2 g/dL (6.3-8.2)
[2021-11-09 09:12] LABS: Troponin I < 0.012 ng/mL (0.01-0.034)
[2021-11-09 09:16] LABS: CKMB % Relative Index 1.7 % (1.5-5.0); Creatine Kinase MB 3.49 ng/mL (<2.37)
[2021-11-09 09:29] LABS: COVID19 - ADMIT (NP swab/PCR) Negative (Negative)
--- NOTE | 2021-11-09 10:12 | PC.NURSE ---
very unsteady gate, needed max assist x 1 to get out of bed to walker and when standing walking very unsteady staggering gate.
--- NOTE | 2021-11-09 15:29 | OT.IPNOTE ---
Attempted to see the pt for OT eval and pt refused at this time. Able to get prior level of history.
[2021-11-09] MEDS: OXYCODONE IR 5 MG TABLET PO (16:42)
--- NOTE | 2021-11-09 20:35 | PM.HP.1 ---
History of Present Illness History of Present Illness Date Patient Seen: 11/09/21 Chief complaint: fall after smoking marijuana Narrative: This is a 66-year-old male with Parkinson's and Lewy body dementia. He also has coronary artery disease, depression, diabetes mellitus, hyperlipidemia and COPD. He has caregivers at home 5 days a week and otherwise lives alone in an apartment in [place]. He says that the falling seems to be precipitated by ?shaking from the Parkinson's. ? He also says that he is confused. Will those comments are not confirmed on my evaluation/exam him today. He does not seem confused and he does not have a tremor. He is not on any Parkinson's medicines that I can tell from his list. He has had no fevers, coughing, abdominal pain, bleeding or other symptoms to suggest a reason in addition to a the Parkinson's for his weakness and falls. He has some skin wrap bandages around his ankles where he has apparently had cellulitis in the past. He says his main problem is moving from his electric wheelchair in his house to his couch. He is unable to stand for the pivot part of the transfer. The brain CT and cervical spine CT are negative for fracture and bleed. Patient History Medical History Bilateral otitis externa Cellulitis Chicken pox (1956) Chickenpox (1956) Chronic cough COPD (chronic obstructive pulmonary disease) Coronary artery disease (2006) Depression (2008) Diabetes (1994) Eczema Foot pain GERD (gastroesophageal reflux disease) (2012) Gout Hearing reduced Hip pain History of recurrent TIAs Hyperlipidemia Hypertension Hypothyroidism Kidney disease (2009) Measles (6) Measles (1955) Mental health assessment declined Mumps (1958) Mumps (1958) Neuropathy Obstructive sleep apnea Otitis externa Screening for malignant neoplasm of colon Shoulder pain Sleep apnea Status post myocardial infarction Steatosis Strain of muscle of right groin region (03/30/18) Type 2 diabetes mellitus Well adult exam Surgical History Anesthesia History of heart artery stent (2006) History of heart artery stent (2010) Hx of shoulder surgery (2005) Family & Social History Family History Brother Age: 67 Diabetes mellitus Hyperlipidemia Mother Heart disease Hypertension Hyperlipidemia Diabetes mellitus Grandmother Diabetes mellitus Brother No problems noted. Sister Breast cancer Social History: household members none Prior Living Arrangements Apartment/Condo lives independently Yes Safety & Behavioral: Feels Safe in Current Yes Environment Been Physically Hurt or No Threatened By a Person Suicidal Ideation Description None Suicide Plan Description No Plan Tobacco & Substance use: Tobacco type cigarettes,cannabis/marijuana Smoking Status Current every day smoker alcohol intake current alcohol intake frequency a few times a week Substance Use Type marijuana Meds Home Medications and Allergies Home Medications Medication Instructions Recorded Confirmed Type ipratropium 0.5 mg-albuterol 3 mg 3 ml INH QID #360 ml 03/12/19 11/09/21 Rx (2.5 mg base)/3 mL nebulization soln Test strips #1 each 03/22/20 11/09/21 Rx beclomethasone dipropionate 40 1 inhalation INHALATION BID #10.6 05/29/20 11/09/21 Rx mcg/actuation HFA breath activated gram aerosol blood-glucose meter #1 ea 01/11/21 11/09/21 Rx Disabled Parking Permit #1 ea 02/15/21 11/09/21 Rx blood sugar diagnostic (Blood #100 ea 03/01/21 11/09/21 Rx Glucose Test) lancets 33 gauge (BD Ultra Fine #100 ea 03/01/21 11/09/21 Rx Lancets) gabapentin 300 mg capsule 900 mg PO BID #540 cap 04/12/21 11/09/21 Rx levothyroxine 125 mcg tablet 125 mcg PO DAILY #90 tab 06/03/21 11/09/21 Rx clopidogrel 75 mg tablet 75 mg PO DAILY #90 tab 07/15/21 11/09/21 Rx triamcinolone acetonide 0.1 % 1 applic TOP DAILY #30 gram 07/15/21 11/09/21 Rx topical cream insulin glargine U-300 conc 300 80 unit (0.2667 mL) SUBCUT BID #15 07/25/21 11/09/21 Rx unit/mL (3 mL) subcutaneous pen ml citalopram 40 mg tablet (Celexa) 40 mg PO DAILY #90 tab 08/08/21 11/09/21 Rx omeprazole 20 mg tablet,delayed 20 mg PO DAILY #90 tab 08/13/21 11/09/21 Rx release methocarbamol 500 mg tablet 500 mg PO TID PRN #90 tab 08/19/21 11/09/21 Rx bupropion HCl 300 mg 24 hr tablet, 300 mg PO QAM #90 tab 08/26/21 11/09/21 Rx extended release quetiapine 25 mg tablet (Seroquel) 25 mg PO BEDTIME 10/14/21 11/09/21 History albuterol sulfate 90 mcg/actuation 2 puff INHALATION QID PRN #18 gram 10/17/21 11/09/21 Rx aerosol inhaler (Proventil HFA) pen needle, diabetic 31 gauge x #100 each 10/17/21 11/09/21 Rx /16 (Comfort EZ Pen Blanca) lorazepam 1 mg tablet 1 mg PO BID PRN #30 tab 10/18/21 11/09/21 Rx oxycodone 5 mg tablet 5 mg PO Q4-6H PRN #60 tab 10/18/21 11/09/21 Rx insulin aspart U-100 100 unit/mL See Rx Instructions SUBCUT 10/22/21 11/09/21 Rx (3 mL) subcutaneous pen (Novolog .COMPLEX #15 ml Flexpen U-100 Insulin aspart) atorvastatin 80 mg tablet 80 mg PO DAILY #90 tab 10/31/21 11/09/21 Rx Allergies Allergy/AdvReac Type Severity Reaction Status Date / Time adhesive Allergy Mild REDNESS/ITC Verified 11/08/21 22:16 HINESS morphine Allergy Verified 11/08/21 22:16 Review of Systems Review of Systems Narrative: Positive for memory loss, repeated falls and lower extremity weakness. Negative for fevers, chills, sweats, coughing, chest pain, dull pain, bleeding, rash, vomiting, seizures, headaches. Exam Vital Signs (past 8 hours): Oxygen Delivery Method Room Air Oxygen Flow Rate 0 Narrative Exam Narrative: He is alert and oriented x3. He is in no apparent distress. He shows no signs that I can see of typical Lewy body dementia. He also has remarkably few stigmata of Parkinson's. Pupils are equally round reactive to light and accommodation. Extraocular muscles are intact Sclerae are pink and nonicteric Throat looks normal No lymph nodes are felt head, neck, supraclavicular area There is no thyromegaly JVD is less than 6 cm No carotid bruits heard Heart is regular rate and rhythm without murmur Lungs are clear to auscultation bilaterally Extremities have no ankle edema Skin has no rash or jaundice Neurological exam: There is no tremor, no masked face he has and no cogwheeling. Patient is diffusely weak. He shows no signs of altered reality or agitation. He is thoroughly cooperative and accurate in his historical discussion. Objective Labs Result Diagrams: 11/09/21 08:28 11/09/21 08:28 Labs: Laboratory Results - last 24 hr 11/09/21 11/09/21 11/09/21 08:28 08:28 08:28 WBC 8.7 RBC 4.12 L Hgb 13.1 L Hct 38.0 L MCV 92.2 MCH 31.8 MCHC 34.5 RDW 14.0 Plt Count 219 Neut % (Auto) 70.1 Lymph % (Auto) 18.[address] % (Auto) 7.9 Eos % (Auto) 2.9 Baso % (Auto) 0.4 Neut # (Auto) 6100 Lymph # (Auto) 1600 [place] # (Auto) 700 Eos # (Auto) 300 Baso # (Auto) 0 Sodium 135 L Potassium 3.9 Chloride 102 Carbon Dioxide 29 BUN 14 Creatinine 0.86 Estimated GFR > 60.0 BUN/Creatinine Ratio 16.3 Glucose 191 H Calcium 8.8 Total Bilirubin 0.7 AST 29 ALT 26 Alkaline Phosphatase 84 Total Creatine Kinase 206 H CK-MB (CK-2) 3.49 H CK-MB (CK-2) Rel Index 1.7 Troponin I < 0.012 Total Protein 7.2 Albumin 3.8 Globulin 3.4 Albumin/Globulin Ratio 1.1 Ethyl Alcohol < 10 SARS-CoV-2 (PCR) Negative Assessment & Plan Assessment & Plan narrative: This is a 66-year-old male with Parkinson's disease and Lewy body dementia, CAD, COPD, Type 2 DM on insulin, HTN, BPH and hypothyroidism. He has continued to fall. He went home from the ED earlier today and within 2 hours had fallen again. Repeated falls, present on admission. Active. -this appears to be related to progressive weakness of his Parkinson's disease. -PT and OT evaluation with assessment about placement safety. Parkinson's disease, present on admission. Active. -No current Sinemet or other treatments Lewy Body Dementia, present on admission. Active. -Continue Seroquel Type 2 Diabetes on insulin, present on admission. Active. -continue Glargine insulin at home dose 80U BID -high dose insulin sliding scale with blood sugar checks CAD, present on admission. Chronic. -continue lasix, plavix, Atorvastatin, imdur BPH with acute urinary retention -continue tamsulosin Hypothyroidism, present on admission. Chronic. -Continue Levothyroxine HTN, present on admission. Active. -continue lisinopril COPD, present on admission. Chronic. -not in exacerbation -continue nebs Depression, present on admission. Chronic. -continue wellbutrin and Citalopram CODE: Full Proxy: Cy Randall, son Time Spent With Patient Critical Care time: I spent a total of [] minutes of critical care time on this patient's care today; this time is exclusive of procedural time.
[2021-11-09] MEDS: GABAPENTIN 300 MG CAPSULE 900 MG PO (20:55)
[2021-11-09] MEDS: ATORVASTATIN 20 MG TABLET 80 MG PO (20:56)
[2021-11-09] MEDS: BUDESONIDE 0.5 MG/2 ML NEB INH (20:56)
[2021-11-09] MEDS: QUETIAPINE 25 MG TABLET PO (20:56)
[2021-11-09] MEDS: INSULIN GLARGINE 100 UNIT/ML 3ML PEN 80 UNIT SUBCUT (21:08)
[2021-11-10 00:10] VITALS: BP 161/91; PULSE 77; RESP 18; TEMP 36.8; O2SAT 97
[2021-11-10 04:20] VITALS: BP 164/88; PULSE 81; RESP 18; TEMP 36.4; O2SAT 96
[2021-11-10] MEDS: LEVOTHYROXINE 125 MCG TABLET PO (05:33)
[2021-11-10] MEDS: OXYCODONE IR 5 MG TABLET PO ×2 (05:35→10:07)
[2021-11-10 06:18] LABS: Add Manual Diff / Slide Review NO; Basophils Absolute Auto 0 /uL (0-100); Basophils Percent Auto 0.1 % (0-2); Eosinophils Absolute Auto 300 /uL (0-450); Eosinophils Percent Auto 3.9 % (2-4); Hematocrit 39.1 % (41-53); Hemoglobin 13.5 g/dL (13.5-17.5); Lymphocytes Absolute Auto 1800 /uL (1100-4500); Lymphocytes Percent Auto 24.4 % (25-40); Mean Corpuscular HGB Conc 34.7 % (30-36); Mean Corpuscular Hemoglobin 31.9 PG (26-34); Mean Corpuscular Volume 92.1 fL (80-100); Monocytes Absolute Auto 600 /uL (0-900); Monocytes Percent Auto 8.7 % (3-14); Neutrophils Absolute Auto 4500 /uL (1500-7000); Neutrophils Percent Auto 62.9 % (50-75); Platelet Count 221 X10^3/uL (150-400); Red Blood Cell Count 4.24 X10^6/uL (4.5-5.9); Red Cell Distribution Width 13.8 % (11.6-14.8); White Blood Cell Count 7.2 X10^3/uL (4.5-11.0)
[2021-11-10 06:28] LABS: Alanine Aminotransferase 29 IU/L (<50); Albumin 3.8 g/dL (3.5-5.0); Albumin Globulin Ratio 1.1 (1.0-2.8); Alkaline Phosphatase 88 U/L (38-126); Aspartate Aminotransferase 30 IU/L (17-59); BUN Creatinine Ratio 18.1 (6-22); Bilirubin Total 0.7 mg/dL (0.2-1.3); Blood Urea Nitrogen 13 mg/dL (9-20); Calcium 9.4 mg/dL (8.4-10.2); Carbon Dioxide 31 mmol/L (22-32); Chloride 102 mmol/L (98-107); Estimated Glomerular Filt Rate > 60.0 mL/min (>60); Globulin 3.6 g/dL (1.7-4.1); Glucose 165 mg/dL (80-110); HEMOLYSIS < 15 (0-50); Sodium 136 mmol/L (137-145); Total Protein 7.4 g/dL (6.3-8.2)
[2021-11-10] MEDS: PANTOPRAZOLE DR 20 MG TABLET PO (07:37)
[2021-11-10 08:00] VITALS: BP 153/82; PULSE 64; RESP 18; TEMP 36.6; O2SAT 97
[2021-11-10] MEDS: CITALOPRAM 10 MG TABLET 40 MG PO (09:42)
[2021-11-10] MEDS: INSULIN GLARGINE 100 UNIT/ML 3ML PEN 80 UNIT SUBCUT (09:42)
[2021-11-10] MEDS: CLOPIDOGREL 75 MG TABLET PO (09:42)
[2021-11-10] MEDS: buPROPion XL 150 MG TAB 300 MG PO (09:42)
[2021-11-10] MEDS: GABAPENTIN 300 MG CAPSULE 900 MG PO (09:42)
--- NOTE | 2021-11-10 10:50 | PT.IIE ---
Surgical History (Last Reviewed 10/18/21 @ 17:27 by Lissette Ramirez PA-C) Anesthesia Medical History (Last Reviewed 11/09/21 @ 07:24 by Giselle Briggs DO) Bilateral otitis externa Cellulitis Chicken pox (1956) Chickenpox (1956) Chronic cough COPD (chronic obstructive pulmonary disease) Coronary artery disease (2006) Depression (2008) Diabetes (1994) Eczema Foot pain GERD (gastroesophageal reflux disease) (2012) Gout Hearing reduced Hip pain History of recurrent TIAs Hyperlipidemia Hypertension Hypothyroidism Kidney disease (2009) Measles (1955) Measles (1955) Mental health assessment declined Mumps (1958) Mumps (1958) Neuropathy Obstructive sleep apnea Otitis externa Screening for malignant neoplasm of colon Shoulder pain Sleep apnea Status post myocardial infarction Steatosis Strain of muscle of right groin region (03/30/18) Type 2 diabetes mellitus Well adult exam Physical Therapy Inpatient Evaluation/Re-Eval M1 PT/OT-IP Prior Functional Status Start: 11/10/21 08:51 Freq: NEEDED Status: Active Protocol: Document 11/10/21 10:50 AW (Rec: 11/10/21 13:22 AW [id number]) Medical Review Prior Functional Status Medical History Reviewed Yes Communication Able to make needs known. Pt is [place]. Mobility and Gait Pt reports shaky legs and off- balance frequently. He uses a power scooter for household mobility. Occasionally uses a 4WW for short distances in the home. He states he moves better earlier in the day but tends to fall at least once per week. Activities of Daily Living and IADL's Pt requires assist for ADL's. He currently has home health PT, OT, RN, and bath aide but denies any private caregivers. His son and family live nearby but his son works shift production associate and sleeps during the day. Daughter in law helps with grocery shopping. Granddaughter does some cleaning. Prior Functional Level (Other details) Pt has history of dysautonomia and orthostatic blood pressures. He was admitted in September 2021 with similar concerns and was dischcarged with home health. 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 Social History Household Members none Living Arrangements Apartment/Condo Number of Floors (Floors) One Floor Number of Stairs To Enter/Railing? Level entrance to ground floor apartment. Home Environment Standard Height Toilet,Tub/ Shower Home Equipment Four Wheel Walker,Straight Cane,Power Wheelchair/Scooter, Tub Transfer Bench,Hand Held Shower,Sock Aid,Lift Recliner, Grab Bars Near Toilet Additional Social History Comment Pt sleeps in a lift recliner. He has suction cup grab bar in the shower. He lives alone and his son/[id number] provide assist as described above. M2 PT-IP Current Condition Start: 11/10/21 08:51 Freq: NEEDED Status: Active Protocol: Document 11/10/21 10:50 AW (Rec: 11/10/21 13:22 AW [id number]) Physical Therapy Current Condition Current Condition Evaluation Date 11/10/21 Treatment Diagnosis GLF with head trauma; impaired mobility and gait. Onset Date 11/09/21 M3 PT-IP Subjective Start: 11/10/21 08:51 Freq: NEEDED Status: Active Protocol: Document 11/10/21 10:50 AW (Rec: 11/10/21 13:22 AW [id number]) Subjective Physical Therapy Visit Type Type Initial Evaluation Visit Start Time 10:25 Visit Stop Time 10:50 Total Visit Minutes 25 Physical Therapy Visit Comments Patient Comments Pt is willing to participate with PT Patient Goals Pt would like to feel more confident with transfers and reduce lightheadedness. Therapy Pain Assessment Pain When Pain Assessed During Mobility Pain Present Pain Present Pain Reported Location Left Hip Intensity 7 Scale Used Numeric (0 - 10) M4 PT-IP Mobility and Gait Start: 11/10/21 08:51 Freq: NEEDED Status: Active Protocol: Document 11/10/21 10:50 AW (Rec: 11/10/21 13:22 AW [id number]) PT-Bed Mobility Assessment Supine to Sit Supine to Sit Moderate Assistance,1 Person Assistance,Bedrails Sit to Supine Sit to Supine Standby Assistance Scooting Scooting to Edge of Bed Contact Guard Assistance PT-Transfer Assessment Sit to and From Stand Sit to and from Stand Contact Guard Assistance,Use of Upper Extremities Equipment Transfer Assistive Device Bed Rail,Front Wheeled Walker Orthotic/Prosthetic Devices or Brace: No Transfers Transfer Destination Chair Transfer Technique Stand Step Pivot Transfer Ability Level of Assist Contact Guard Assistance Comments Mobility Comments Pt was lying in bed as PT arrived. Supine BP 146/75 HR 72. He sleeps in a lift recliner at home and needed modA to sit up EOB. BP 109/741 HR 76 but asymptomatic. BP improved to 122/75 after two minutes sitting. He stood CGA and used FWW, reporting lightheadedness. BP standing was 82/54 HR 84. He transferred to the chair CGA and sat. BP improved to 124/68 HR 72. He stood again CGA and BP was 81/55 HR 84. He was assisted back to bed and BP recovered to 142/70 HR 72 after two minutes supine. Pt was left with bed alarm on and call light in reach. Gait Assessment Comments Gait Comments Steps with FWWtaken during transfers only due to (+) orthostatic BP. Stair Climbing Assessment Comments Stair Climbing Comments Not assessed. No stairs at home. PT-Balance Assessment Sitting Balance and Reactions Static Sitting Balance Ability Good Dynamic Sitting Balance Ability Good Standing Balance and Reactions Static Standing Balance Ability Fair Dynamic Standing Balance Ability Fair Device Used FWW M5 PT-IP Objective Assessments Start: 11/10/21 08:51 Freq: NEEDED Status: Active Protocol: Document 11/10/21 10:50 AW (Rec: 11/10/21 13:22 AW [id number]) Orientation Orientation/Cognition Level of Alertness Alert Orientation Name,Day of Week,Place, Situation Language Function Ability No Deficits Noted Safety Awareness Understands Safety Issues Memory Description No Deficits Noted Comments Pt denies hallucinations recently but recalls events associated with hospitalization in September including active hallucinations. Gross Range of Motion Upper Extremity ROM Assessment Within Functional Limits Lower Extremity ROM Assessment Within Functional Limits Strength Lower Extremity Strength Assessment Bilaterally Impaired Hip R 4/5; L 4-/5 Knee B 4/5 flexion; 4+/5 extension Ankle B 4/5 Comments Strength Comments LE tremors noted with all MMT but not at rest. Sensation Assessment Sensation Gross Sensation WNL Muscle Tone Muscle Tone WNL No Muscle Tone Location Bilateral Lower Extremity Type of Tone Hypertonicity Severity of Tone Mild,Moderate Manifistation of Tone Intention Tremors Comments Muscle Tone Comments Tremors noted with all LE MMT Other Assessments Other Other Assessments See orthostatic BP's documented in mobility comments. M6 PT-IP Treatment Start: 11/10/21 08:51 Freq: NEEDED Status: Active Protocol: Document 11/10/21 10:50 AW (Rec: 11/10/21 13:22 AW [id number]) Physical Therapy Treatment Education Education Provided Safety M7 PT-IP Assessment and Plan Start: 11/10/21 08:51 Freq: NEEDED Status: Active Protocol: Document 11/10/21 10:50 AW (Rec: 11/10/21 13:22 AW [id number]) PT Summary Assessment and Plan Potential Rehabilitation Potential Good Status of Condition at Evaluation Evolving Summary Impairments Pain,Strength,Balance,Tone,Bed Mobility,Transfers,Gait Assessment Summary Andres is a 66 yo man seen for PT evaluation after being admitted secondary to multiple falls in a 24-hour period. He was hospitalized with similar concerns in September 2021 and discharged home with home health services which are still active. Pt mobilizes with 4WW for some short distances but otherwise uses a power scooter at home. He notes his legs are tremulous and he feels unsteady when attempting to walk at home. Pt reports increasing difficulty transferring from his power chair to his lift recliner and notices a difference in function associated with time of day; he functions better in the morning. On assessment, pt has positive orthostatic BP and does not tolerate much activity. He is lucid today and able to communicate that he is not actively hallucinating. He denies hallucinations in the past few weeks. Pt would benefit from caregiver support at home and continued home health services to address falls risk and improve transfers. Goals Bed Mobility Goal Contact Guard Assistance Transfer Goal Standby Assistance,Four Wheeled Walker Gait Goal Standby Assistance,Four Wheel Walker Gait Distance 75 Days to Meet Goals 3 Frequency of Treatment Frequency Of Treatment Once a Day Treatment Plan Physical Therapy Treatment Plan Bed Mobility Training,Transfer Training,Gait Training, Therapeutic Exercise,Balance Retraining,Discharge Planning, Hot or Cold Pack,Neuromuscular Re-ed Other Recommendations and Next Treatment monitor BP; transfer training; Focus assess transfers/gait with 4WW Precautions Other Precautions falls Recommendations To Nursing Amount of Assist Needed 1 Person Assist Discharge Recommendations PT Discharge Recommendations Home with Assistance,Home with 25/05 Assist Available,Home Health Transportation Needs at Discharge Private Vehicle
[2021-11-10 11:00] VITALS: BP 119/58; PULSE 67; RESP 18; TEMP 36.6; O2SAT 97
[2021-11-10] MEDS: INSULIN LISPRO 100 UNIT/ML 3ML VIAL SUBCUT (12:09)
--- NOTE | 2021-11-10 14:50 | CM.DANOTE ---
DCP Assessment: Patient is an 66 yr old male who was admitted for multiple falls. CM met with patient at the bedside and explained role. Patient was alert and oriented x4 during CM meeting. Patient currently lives in a ground level section 8 apartment in [place]. Patient uses a motorized wheel chair at home to get around and transfers from wheel chair to couch, bathroom and his bed usually without assistance. Patient is working with [facility] and has a nurse,PT,OT and a shower aid who all come in 2x a week. Patient is interested in private pay caregivers so CM gave him information on companies and a senior resource guide. Patient stated he was here two months ago and was diagnosed with parkinsons by Dr. Guadalupe. Patient went to his primary care provider Dr Rutherford and is being referred to a neurologist to start getting worked up for this. Patient also applied for medicaid halfway care services last time he was here but has not heard anything from medicaid about this application. CM gave him the number to call [facility] office to check on his application. I A[employer] medicare and self pay Plan: DC home with [facility] reinstated. NO new DC planning needs identified. CM department will follow to assist with any new needs that may arise. Amirah Spangler RN Case Manger Discharge Planning/Care Management Discharge Assessment Start: 11/10/21 14:29 Freq: Status: Discharge Protocol: Document 11/10/21 14:29 HS (Rec: 11/10/21 14:49 HS [id number]) Discharge Planning Assessment Assigned Turbine Assembler Amirah Spangler RNbusiness improvement manager DPOA/Assigned Designee Name Cy Randall Contact Information [phone] Advance Directives? No Advance Directives on File No History Provided By Patient,Family Member,Medical Record Has Patient been admitted in last 30 No days? Prior Living Arrangements Apartment/Condo Household Members none Independent with ADL's Yes Is patient alert and oriented? Yes Caregiver for Another No Community Services used prior to Physical Therapy,Occupational admission: Therapy,Home Health Aid,Home Health Nurse Comment has HH through [facility] Already Rented / Owned Wheelchair Comment Patient reports that he has access to walker if needed. Patient also with motorized wheelchair. Patient/Family Preference Home with Home Health Barriers to Discharge No Discharge Plan Home with Home Health Transportation Arrangement Family can provide transport. Referrals Initiated Home Health If patient plan is home with home health No: Possible resume with [facility] : Has signed face to face form been HH completed? Whiteboard Updated in Patient Room with Yes name and ext. # of Turbine Assembler Review Status In Process Next Review Type Continued Stay Review
--- NOTE | 2021-11-10 19:45 | PM.DS.1 ---
History of Present Illness History of Present Illness Chief complaint: fall after smoking marijuana Narrative: This is a 66-year-old male with Parkinson's and Lewy body dementia.? He also has coronary artery disease, depression, diabetes mellitus, hyperlipidemia and COPD.? He has caregivers at home 5 days a week and otherwise lives alone in an apartment in [place].? He says that the falling seems to be precipitated by ?shaking from the Parkinson's. ?? He also says that he is confused.? Will those comments are not confirmed on my evaluation/exam him today.? He does not seem confused and he does not have a tremor.? He is not on any Parkinson's medicines that I can tell from his list.? He has had no fevers, coughing, abdominal pain, bleeding or other symptoms to suggest a reason in addition to a the Parkinson's for his weakness and falls.? He has some skin wrap bandages around his ankles where he has apparently had cellulitis in the past.? He says his main problem is moving from his electric wheelchair in his house to his couch.? He is unable to stand for the pivot part of the transfer.? The brain CT and cervical spine CT are negative for fracture and bleed. Discharge Providers Provider Date of admission: 11/09/21 10:46 Discharge Date: 11/10/21 Primary care physician: Gasper Rutherford DO Consults: 11/09/21 14:14 Consult to Dietitian, Adult Routine Comment: Reason For Exam: education on diabetic diet 11/09/21 14:37 Consult to Occupational Therapy Evaluate & Treat Comment: Physician Instructions: Evaluate and treat Consult to Physical Therapy Evaluate & Treat Comment: Physician Instructions: Evaluate and Treat Discharge provider: Devendra Baker MD Summary Hospital Course Discharge Diagnosis: 1. Ground level fall 2. Left hip contusion without fracture 3. Parkinson's line 4. Lewy body dementia Patient was admitted after mechanical fall. He is at baseline moves around in his electric wheelchair. There is no evidence of hip fracture. He remains stable overnight and appears back to his baseline neurological status with some memory deficit but able to manage at home with home health services. Status at Discharge Cognitive/behavioral status at discharge: at baseline, oriented Functional status at discharge: wheelchair bound Overall status at discharge: patient is back to baseline Exam Vital Signs (past 8 hours): Oxygen Delivery Method Room Air Oxygen Flow Rate 0 Narrative Exam Narrative: General: Alert and present male who is conversant and in no distress There is mild bruising on the left lateral hip, good range of motion with passive and active hip flexion and rotation Objective Labs Result Diagrams: 11/10/21 05:45 11/10/21 05:45 Labs: Laboratory Results - last 24 hr 11/10/21 11/10/21 05:45 05:45 WBC 7.2 RBC 4.24 L Hgb 13.5 Hct 39.1 L MCV 92.1 MCH 31.9 MCHC 34.7 RDW 13.8 Plt Count 221 Neut % (Auto) 62.9 Lymph % (Auto) 24.4 L [place] % (Auto) 8.7 Eos % (Auto) 3.9 Baso % (Auto) 0.1 Neut # (Auto) 4500 Lymph # (Auto) 1800 [place] # (Auto) 600 Eos # (Auto) 300 Baso # (Auto) 0 Sodium 136 L Potassium 4.0 Chloride 102 Carbon Dioxide 31 BUN 13 Creatinine 0.72 Estimated GFR > 60.0 BUN/Creatinine Ratio 18.1 Glucose 165 H Calcium 9.4 Total Bilirubin 0.7 AST 30 ALT 29 Alkaline Phosphatase 88 Total Protein 7.4 Albumin 3.8 Globulin 3.6 Albumin/Globulin Ratio 1.1 [facility] Medical History Bilateral otitis externa Cellulitis Chicken pox (1956) Chickenpox (1956) Chronic cough COPD (chronic obstructive pulmonary disease) Coronary artery disease (2006) Depression (2008) Diabetes (1994) Eczema Foot pain GERD (gastroesophageal reflux disease) (2012) Gout Hearing reduced Hip pain History of recurrent TIAs Hyperlipidemia Hypertension Hypothyroidism Kidney disease (2009) Measles (6) Measles (1955) Mental health assessment declined Mumps (1958) Mumps (1958) Neuropathy Obstructive sleep apnea Otitis externa Screening for malignant neoplasm of colon Shoulder pain Sleep apnea Status post myocardial infarction Steatosis Strain of muscle of right groin region (03/30/18) Type 2 diabetes mellitus Well adult exam Surgical History Anesthesia History of heart artery stent (2006) History of heart artery stent (2010) Hx of shoulder surgery (2005) Family History Brother Age: 67 Diabetes mellitus Hyperlipidemia Mother Heart disease Hypertension Hyperlipidemia Diabetes mellitus Grandmother Diabetes mellitus Brother No problems noted. Sister Breast cancer Social History marital status: details: 3 years ago household members: none lives independently: Yes housing: apartment Smoking Status: Current every day smoker Tobacco: How many years used: 45 alcohol intake: current Discharge Plan Discharge Plan Patient Disposition: Home Health Service Discharge orders & Medications Prescriptions: Continued (DME) Test strips 100 strip Qty: 1 10RF Rx Instructions: Check blood glucose 3 times daily beclomethasone dipropionate 40 mcg/actuation HFA aerosol breath activated 1 inhalation Inhalation BID Qty: 10.6 5RF (DME) blood-glucose meter Kit See Rx Instructions .ROUTE .MEDSUPPLY Qty: 1 0RF Rx Instructions: Use to test blood glucose BID (DME) Disabled Parking Permit See Rx Instructions .ROUTE .MEDSUPPLY Qty: 1 0RF Rx Instructions: Valid for 5 years (DME) Blood Glucose Test Strip See Rx Instructions .ROUTE .MEDSUPPLY Qty: 100 6RF Rx Instructions: Use to test blood glucose twice daily. (DME) lancets [BD Ultra Fine Lancets] 33 gauge misc See Rx Instructions .ROUTE .MEDSUPPLY Qty: 100 6RF Rx Instructions: Use to test blood glucose twice daily gabapentin 300 mg capsule 900 mg PO BID Qty: 540 3RF levothyroxine 125 mcg tablet 125 mcg PO DAILY Qty: 90 3RF clopidogrel 75 mg tablet 75 mg PO DAILY Qty: 90 3RF Label Comments: Pt reports not taking for 1 week for upcoming colonoscopy on 10/08 insulin glargine U-300 conc 300 unit/mL (3 mL) insulin pen 80 unit SUBCUT BID Qty: 15 11RF citalopram [Celexa] 40 mg tablet 40 mg PO DAILY Qty: 90 1RF omeprazole 20 mg tablet,delayed release (DR/EC) 20 mg PO DAILY Qty: 90 1RF methocarbamol 500 mg tablet 500 mg PO TID PRN (Reason: mm tightness) Qty: 90 1RF quetiapine [Seroquel] 25 mg tablet 25 mg PO BEDTIME 0RF albuterol sulfate [Proventil HFA] 90 mcg/actuation HFA aerosol inhaler 2 puff INHALATION QID PRN (Reason: shortness of breath) Qty: 18 5RF (DME) pen needle, diabetic [Comfort EZ Pen Guy] 31 gauge x 5/16 needle See Dose Instructions .ROUTE .MEDSUPPLY Qty: 100 5RF Dose Instruction: As directed Rx Instructions: Use to inject insulin 5 times per day oxycodone 5 mg tablet 5 mg PO Q4-6H PRN (Reason: pain) Qty: 60 0RF lorazepam 1 mg tablet 1 mg PO BID PRN (Reason: sedation) Qty: 30 1RF Novolog Flexpen U-100 Insulin 100 unit/mL (3 mL) insulin pen See Rx Instructions SUBCUT .COMPLEX Qty: 15 11RF Rx Instructions: Five-10 units a.c. t.i.d. depending on carbohydrate content of meal atorvastatin 80 mg tablet 80 mg PO DAILY Qty: 90 0RF triamcinolone acetonide 0.1 % cream 1 applic TOP DAILY Qty: 30 5RF bupropion HCl 300 mg tablet extended release 24 hr 300 mg PO QAM Qty: 90 1RF ipratropium-albuterol 0.5 mg-3 mg(2.5 mg base)/3 mL Solution For Nebulization 3 ml INH QID Qty: 360 0RF Follow up/Referrals: Gasper Rutherford, [Primary Care Provider] - Diet/Activity/Treatments Diet: Carb-consistent/Diabetic Discharge Data Primary Care Provider: Gasper Rutherford Attending Provider: Bonnie Silva
== END 2021-11-10 14:40 | disposition home health service (06) ==
LOC: ED 10:46 → AC 10:47
PROVIDERS: Admitting Provider Family Medicine; Emergency Provider Emergency Medicine; PCP Family Medicine; Referring Provider Emergency Medicine; Visit Provider Family Medicine
DX: S70.02XA Contusion of left hip, initial encounter (principal); G20 Parkinson's disease; F02.80 Dementia in other diseases classified elsewhere, unspecified severity, without behavioral disturbance, psychotic disturbance, mood disturbance, and anxiety; W18.39XA Other fall on same level, initial encounter; Z91.81 History of falling; Y92.039 Unspecified place in apartment as the place of occurrence of the external cause; I25.10 Atherosclerotic heart disease of native coronary artery without angina pectoris; F32.9 Major depressive disorder, single episode, unspecified; E11.9 Type 2 diabetes mellitus without complications; E78.5 Hyperlipidemia, unspecified; J44.9 Chronic obstructive pulmonary disease, unspecified; F12.90 Cannabis use, unspecified, uncomplicated; Z79.4 Long term (current) use of insulin; Z79.01 Long term (current) use of anticoagulants; Z20.822 Contact with and (suspected) exposure to COVID-19
CPT/HCPCS: 36415; 70450; 72125; 80053; 80320; 82550; 82553; 82962; 84484; 85025; 87635; 96372; 97162; 99284; C9803; G0378; J1815

== ENCOUNTER 2021-11-30 15:40 | Emergency (ER) | payer MEDICARE, MEDICAID, SELFPAY ==
[2021-11-09 14:02] VITALS: BMI 108.5
[2021-11-30 15:43] VITALS: BP 173/78; PULSE 76; RESP 18; TEMP 37; O2SAT 99; BMI 31.3
[2021-11-30 16:46] LABS: Add Manual Diff / Slide Review NO; Basophils Absolute Auto 0 /uL (0-100); Basophils Percent Auto 0.6 % (0-2); Eosinophils Absolute Auto 200 /uL (0-450); Eosinophils Percent Auto 2.9 % (2-4); Hemoglobin 12.9 g/dL (13.5-17.5); Lymphocytes Absolute Auto 500 /uL (1100-4500); Lymphocytes Percent Auto 6.4 % (25-40); Mean Corpuscular Hemoglobin 31.8 PG (26-34); Monocytes Absolute Auto 500 /uL (0-900); Monocytes Percent Auto 6.9 % (3-14); Neutrophils Absolute Auto 6000 /uL (1500-7000); Neutrophils Percent Auto 83.2 % (50-75); Platelet Count 220 X10^3/uL (150-400); Red Blood Cell Count 4.07 X10^6/uL (4.5-5.9); Red Cell Distribution Width 13.2 % (11.6-14.8); White Blood Cell Count 7.2 X10^3/uL (4.5-11.0)
[2021-11-30 16:50] LABS: Lactate (Lactic Acid) 1.1 mmol/L (0.7-2.1)
[2021-11-30 16:51] LABS: Alanine Aminotransferase 20 IU/L (<50); Albumin 3.8 g/dL (3.5-5.0); Albumin Globulin Ratio 1.1 (1.0-2.8); Alkaline Phosphatase 94 U/L (38-126); Aspartate Aminotransferase 30 IU/L (17-59); BUN Creatinine Ratio 9.6 (6-22); Bilirubin Total 0.8 mg/dL (0.2-1.3); Blood Urea Nitrogen 7 mg/dL (9-20); Calcium 9.1 mg/dL (8.4-10.2); Carbon Dioxide 29 mmol/L (22-32); Chloride 102 mmol/L (98-107); Estimated Glomerular Filt Rate > 60.0 mL/min (>60); Globulin 3.4 g/dL (1.7-4.1); Glucose 111 mg/dL (80-110); HEMOLYSIS < 15 (0-50); Lipase 32 U/L (23-300); Sodium 134 mmol/L (137-145); Total Protein 7.2 g/dL (6.3-8.2)
[2021-11-30 17:06] LABS: Procalcitonin 0.08 ng/mL (<0.5)
[2021-11-30 17:20] VITALS: BP 175/84; PULSE 82; O2SAT 98
[2021-11-30 17:22] VITALS: BP 175/84; PULSE 81; O2SAT 98
[2021-11-30 17:30] VITALS: BP 190/88; PULSE 84; O2SAT 96
--- NOTE | 2021-11-30 17:30 | ED_ITS ---
HPI - Wound/Laceration General Chief Complaint: Wound/Laceration Stated Complaint: Leg infection Time Seen by Provider: 11/30/21 17:11 Source: patient Mode of arrival: EMS History of Present Illness HPI narrative: Patient is a 66-year-old male with history of Lewy body dementia, type 2 diabetes, coronary artery disease, Parkinson's, chronic lower extremity wounds presenting today with increasing redness in his left leg. He has home health care who comes to his house he gets around by wheelchair. He says he has been sleeping most of the day and last night his left leg started hurting. Today he noticed left leg is more red, and weeping. He is afebrile. EMS reports his glucose was low and he got glucose with them. He says he has not eaten today he has not used any insulin today he is awake alert than Accu-Chek of 75. Related Data Home Medications Medication Instructions Recorded Confirmed quetiapine 25 mg tablet (Seroquel) 25 mg PO BEDTIME 10/14/21 11/18/21 Previous Rx's Medication Instructions Recorded ipratropium 0.5 mg-albuterol 3 mg 3 ml INH QID #360 ml 03/12/19 (2.5 mg base)/3 mL nebulization soln blood-glucose meter #1 ea 01/11/21 Disabled Parking Permit #1 ea 02/15/21 gabapentin 300 mg capsule 900 mg PO BID #540 cap 04/12/21 levothyroxine 125 mcg tablet 125 mcg PO DAILY #90 tab 06/03/21 clopidogrel 75 mg tablet 75 mg PO DAILY #90 tab 07/15/21 triamcinolone acetonide 0.1 % 1 applic TOP DAILY #30 gram 07/15/21 topical cream insulin glargine U-300 conc 300 80 unit (0.2667 mL) SUBCUT BID #15 07/25/21 unit/mL (3 mL) subcutaneous pen ml citalopram 40 mg tablet (Celexa) 40 mg PO DAILY #90 tab 08/08/21 omeprazole 20 mg tablet,delayed 20 mg PO DAILY #90 tab 08/13/21 release methocarbamol 500 mg tablet 500 mg PO TID PRN #90 tab 08/19/21 bupropion HCl 300 mg 24 hr tablet, 300 mg PO QAM #90 tab 08/26/21 extended release lorazepam 1 mg tablet 1 mg PO BID PRN #30 tab 10/18/21 insulin aspart U-100 100 unit/mL See Rx Instructions SUBCUT 10/22/21 (3 mL) subcutaneous pen (Novolog .COMPLEX #15 ml Flexpen U-100 Insulin aspart) albuterol sulfate 90 mcg/actuation 2 puff INHALATION QID PRN #18 gram 11/18/21 aerosol inhaler (Proventil HFA) atorvastatin 80 mg tablet 80 mg PO DAILY #90 tab 11/18/21 beclomethasone dipropionate 40 1 inh INHALATION BID #10.6 gram 11/18/21 mcg/actuation HFA breath activated aerosol blood sugar diagnostic (Blood #100 ea 11/18/21 Glucose Test) lancets 33 gauge (BD Ultra Fine #100 ea 11/18/21 Lancets) pen needle, diabetic 31 gauge x #100 each 11/18/2103/17 (Comfort EZ Pen [place]) flash glucose scanning reader #1 ea 11/19/21 (FreeStyle Timmy 14 Day [place]) flash glucose sensor (FreeStyle #1 ea 11/19/21 Timmy 14 Day Sensor) oxycodone 5 mg tablet 5 mg PO Q4-6H PRN #60 tab 11/19/21 doxycycline hyclate 100 mg capsule 100 mg PO BID #20 cap 11/30/21 Allergies Allergy/AdvReac Type Severity Reaction Status Date / Time adhesive Allergy Mild REDNESS/ITC Verified 11/08/21 22:16 HINESS morphine Allergy Verified 11/08/21 22:16 Review of Systems Review of Systems Narrative: GENERAL: + increased weakness, increased daytime slingDenies fever HEENT: Denies sinus pain, ear pain, sore throat, difficulty swallowing, neck pain RESPIRATORY: Denies dyspnea, cough, wheezing, hemoptysis, sputum. CARDIOVASCULAR: Denies chest pain, palpitations, orthopnea, edema GASTROINTESTINAL: Denies nausea, vomiting, abdominal pain, diarrhea, constipation, melena. : Denies dysuria, frequency, incontinence, hematuria, urinary retention, flank pain. MUSCULOSKELETAL: Denies weakness, joint pain, or bony pain SKIN: Chronic lower wounds, see HPI NEUROLOGIC: + dementia, wheelchair-bound, denies falls dizziness or weakness PSYCHIATRIC: No concerning psychosocial issues. 12 point review of systems is negative except for those stated above and HPI Patient History Medical History Bilateral otitis externa Cellulitis Chicken pox (1956) Chickenpox (1956) Chronic cough COPD (chronic obstructive pulmonary disease) Coronary artery disease (2006) Depression (2008) Diabetes (1994) Eczema Foot pain GERD (gastroesophageal reflux disease) (2012) Gout Hearing reduced Hip pain History of recurrent TIAs Hyperlipidemia Hypertension Hypothyroidism Kidney disease (2009) Measles (1955) Measles (1955) Mental health assessment declined Mumps (1958) Mumps (1958) Neuropathy Obstructive sleep apnea Otitis externa Screening for malignant neoplasm of colon Shoulder pain Sleep apnea Status post myocardial infarction Steatosis Strain of muscle of right groin region (03/30/18) Type 2 diabetes mellitus Well adult exam Surgical History Anesthesia History of heart artery stent (2006) History of heart artery stent (2010) Hx of shoulder surgery (2005) Family History Brother Age: 67 Diabetes mellitus Hyperlipidemia Mother Heart disease Hypertension Hyperlipidemia Diabetes mellitus Grandmother Diabetes mellitus Brother No problems noted. Sister Breast cancer Social History marital status: details: 3 years ago household members: none lives independently: Yes housing: apartment Smoking Status: Current every day smoker Tobacco: How many years used: 45 alcohol intake: current Smoking Status: Current every day smoker alcohol intake frequency: 0-2 drinks per day Substance Use Type: marijuana Exam Initial Vital Signs Initial Vital Signs: Vital Signs Temperature 98.6 F 11/30/21 15:43 Pulse Rate 76 11/30/21 15:43 Respiratory Rate 18 11/30/21 15:43 Blood Pressure 173/78 H 11/30/21 15:43 Pulse Oximetry 99 11/30/21 15:43 GENERAL: Well-appearing 66-year-old maleand in no acute distress. HEENT: Head atraumatic,EOMI, pupils reactive, face symmetr CARDIOVASCULAR: Regular rate and rhythm without murmurs, rubs or gallops. RESPIRATORY: Breath sounds equal bilaterally, no wheezes rales or rhonchi. ABDOMEN: Soft, nontender. Normoactive bowel sounds all 4 quadrants. No guarding or rebound. EXTREMITIES: Normal range of motion, no clubbing or edema. Neurovascularly intact NEUROLOGICAL: Alert oriented at baseline SKIN: Chronic lower extremity wounds left leg does have an open sore 2 cm x 1 cm more weeping but no drainage surrounding erythema skin is very sensitive to touch. The entire lower extremity is not erythematous infected isolated to the 2 wounds. Course Orders Ordered: ED Orders 11/30/21 16:55 Blood Culture Stat 11/30/21 18:16 Wound Culture and Gram Stain Stat Discontinued Medications Doxycycline Hyclate (Doxycycline Hyclate 100 Mg Tablet) 100 mg PO NOW ONE Stop: 11/30/21 17:59 Last Admin: 11/30/21 18:01 Dose: 100 mg Documented by: ATAYLOR Hydromorphone HCl (Hydromorphone 1 Mg Inj) 1 mg IV NOW ONE Stop: 11/30/21 17:44 Last Admin: 11/30/21 18:01 Dose: 1 mg Documented by: ATAYLOR Vital Signs Vital signs: Vital Signs - 8 hr 11/30/21 18:00 11/30/21 18:30 Pulse Rate 79 87 Respiratory Rate 18 Blood Pressure 182/81 H 178/79 H Pulse Oximetry 98 94 MDM - Wound/Laceration Lab Data Result diagrams: 11/30/21 15:58 11/30/21 15:58 Labs: Lab Results 11/30/21 11/30/21 11/30/21 Range/Units 15:58 15:58 15:58 WBC 7.2 (4.5-11.0) X10^3/uL RBC 4.07 L (4.5-5.9) X10^6/uL Hgb 12.9 L (13.5-17.5) g/dL Hct 37.0 L (41-53) % MCV 91.0 (80-100) fL MCH 31.8 (26-34) PG MCHC 35.0 (30-36) % RDW 13.2 (11.6-14.8) % Plt Count 220 (150-400) X10^3/uL Neut % (Auto) 83.2 H (50-75) % Lymph % (Auto) 6.4 L (25-40) % [place] % (Auto) 6.9 (3-14) % Eos % (Auto) 2.9 (2-4) % Baso % (Auto) 0.6 (0-2) % Neut # (Auto) 6000 (9754-0765) /uL Lymph # (Auto) 500 L (4560-9750) /uL [place] # (Auto) 500 (0-900) /uL Eos # (Auto) 200 (0-450) /uL Baso # (Auto) 0 (0-100) /uL Sodium 134 L (137-145) mmol/L Potassium 4.0 (3.4-5.1) mmol/L Chloride 102 (98-107) mmol/L Carbon Dioxide 29 (22-32) mmol/L BUN 7 L (9-20) mg/dL Creatinine 0.73 (0.66-1.25) mg/dL Estimated GFR > 60.0 (>60) mL/min BUN/Creatinine Ratio 9.6 (6-22) Glucose 111 H (80-110) mg/dL Lactate 1.1 (0.7-2.1) mmol/L Calcium 9.1 (8.4-10.2) mg/dL Total Bilirubin 0.8 (0.2-1.3) mg/dL AST 30 (17-59) IU/L ALT 20 (<50) IU/L Alkaline Phosphatase 94 (38-126) U/L Total Protein 7.2 (6.3-8.2) g/dL Albumin 3.8 (3.5-5.0) g/dL Globulin 3.4 (1.7-4.1) g/dL Albumin/Globulin Ratio 1.1 (1.0-2.8) Lipase 32 (23-300) U/L Procalcitonin 0.08 (<0.5) ng/mL ECG Data Interpretation: Normal sinus rhythm rate 77 [place] interval 214 QRS [address] changes no T- wave inversions similar to previous she MDM Narrative Medical decision making narrative: Patient does have some open wound which he says are always open with they are weeping and mildly erythematous. He overall does not appear septic blood work is reassuring. At this time outpatient antibiotics seems appropriate. Wound culture is pending. He is given a sandwich here in the ER in regards to his low glucose. I would like to go home need as well. The food as seemed to stabilize his blood sugar, he remains awake and alert and appropriate. Dressing on left leg is replaced with a Xeroform and gauze. He has home health, they will be there in 1-2 days to change dressing and evaluate. Instructed him to have his l eg checked regularly to be sure that it is not worsening. Discharge Plan Departure Patient Disposition: Home Clinical Impression: Cellulitis Qualifiers: Site of cellulitis: extremity Site of cellulitis of extremity: lower extremity Laterality: left Qualified Code(s): L03.116 - Cellulitis of left lower limb Instructions: Cellulitis Activity Restrictions/Additional Instructions: *You have been diagnosed with cellulitis left leg *What to do: Her at this time please the continue home care for your legs. Have your left leg checked regularly to be sure it is not getting any worse. Your sugar has noted to be slightly low in the emergency department. He ate here however please continue to eat at home and check your glucose. *Continue to take medications as directed Doxycycline 100 mg twice a day for 7 days--> SENT TO [facility] IN [place] *Follow up with your primary care provider in 2-3 days or call [phone] *Return to ER if you should have increasing redness swelling confusion fever or any new, worsening or concerning symptoms Prescriptions: New doxycycline hyclate 100 mg capsule 100 mg PO BID Qty: 20 0RF No Action (DME) blood-glucose meter Kit See Rx Instructions .ROUTE .MEDSUPPLY Qty: 1 0RF Rx Instructions: Use to test blood glucose BID (DME) Disabled Parking Permit See Rx Instructions .ROUTE .MEDSUPPLY Qty: 1 0RF Rx Instructions: Valid for 5 years gabapentin 300 mg capsule 900 mg PO BID Qty: 540 3RF levothyroxine 125 mcg tablet 125 mcg PO DAILY Qty: 90 3RF clopidogrel 75 mg tablet 75 mg PO DAILY Qty: 90 3RF Label Comments: Pt reports not taking for 1 week for upcoming colonoscopy on 10/08 insulin glargine U-300 conc 300 unit/mL (3 mL) insulin pen 80 unit SUBCUT BID Qty: 15 11RF citalopram [Celexa] 40 mg tablet 40 mg PO DAILY Qty: 90 1RF omeprazole 20 mg tablet,delayed release (DR/EC) 20 mg PO DAILY Qty: 90 1RF methocarbamol 500 mg tablet 500 mg PO TID PRN (Reason: mm tightness) Qty: 90 1RF quetiapine [Seroquel] 25 mg tablet 25 mg PO BEDTIME 0RF lorazepam 1 mg tablet 1 mg PO BID PRN (Reason: sedation) Qty: 30 1RF Novolog Flexpen U-100 Insulin 100 unit/mL (3 mL) insulin pen See Rx Instructions SUBCUT .COMPLEX Qty: 15 11RF Rx Instructions: Five-10 units a.c. t.i.d. depending on carbohydrate content of meal (DME) FreeStyle Timmy 14 Day [place] Misc See Rx Instructions .ROUTE .MEDSUPPLY Qty: 1 1RF Rx Instructions: As directed (DME) FreeStyle Timmy 14 Day Sensor Kit See Rx Instructions .ROUTE .MEDSUPPLY Qty: 1 12RF Rx Instructions: As directed oxycodone 5 mg tablet 5 mg PO Q4-6H PRN (Reason: pain) Qty: 60 0RF triamcinolone acetonide 0.1 % cream 1 applic TOP DAILY Qty: 30 5RF bupropion HCl 300 mg tablet extended release 24 hr 300 mg PO QAM Qty: 90 1RF albuterol sulfate [Proventil HFA] 90 mcg/actuation HFA aerosol inhaler 2 puff INHALATION QID PRN (Reason: shortness of breath) Qty: 18 5RF atorvastatin 80 mg tablet 80 mg PO DAILY Qty: 90 1RF beclomethasone dipropionate 40 mcg/actuation HFA aerosol breath activated 1 inh Inhalation BID Qty: 10.6 5RF (DME) Blood Glucose Test Strip See Rx Instructions .ROUTE .MEDSUPPLY Qty: 100 6RF Rx Instructions: Use to test blood glucose twice daily. (DME) lancets [BD Ultra Fine Lancets] [facility] See Rx Instructions .ROUTE .MEDSUPPLY Qty: 100 6RF Rx Instructions: Use to test blood glucose twice daily (DME) pen needle, diabetic [Comfort EZ Pen [place]] 31 gauge x 5/16 needle See Dose Instructions .ROUTE .MEDSUPPLY Qty: 100 5RF Dose Instruction: As directed Rx Instructions: Use to inject insulin 5 times per day ipratropium-albuterol 0.5 mg-3 mg(2.5 mg base)/3 mL Solution For Nebulization 3 ml INH QID Qty: 360 0RF Referrals: Gasper Rutherford, DO [Primary Care Provider] -
--- NOTE | 2021-11-30 17:39 | PC.NURSE ---
Dressing removed from left lower leg, redness and drainage noted.
[2021-11-30 18:00] VITALS: BP 182/81; PULSE 79; O2SAT 98
[2021-11-30] MEDS: DOXYCYCLINE HYCLATE 100 MG TABLET PO (18:01)
[2021-11-30] MEDS: HYDROMORPHONE 1 MG INJ IV (18:01)
--- NOTE | 2021-11-30 18:18 | PC.NURSE ---
Pt provided with sandwich, cheese stick, and orange juice. In room consuming.
[2021-11-30 18:30] VITALS: BP 178/79; PULSE 87; RESP 18; O2SAT 94
== END 2021-11-30 18:56 | disposition home or self-care (01) ==
PROVIDERS: Emergency Medicine; Emergency Provider Emergency Medicine; PCP Family Medicine
DX: L03.116 Cellulitis of left lower limb (principal); F17.200 Nicotine dependence, unspecified, uncomplicated; Z88.5 Allergy status to narcotic agent
CPT/HCPCS: 36415; 80053; 82962; 83605; 83690; 84145; 85025; 87040; 87070; 87075; 87205; 93005; 96374; 99284; J1170

== ENCOUNTER 2022-05-12 21:15 | Inpatient (IN) | payer MEDICARE, MEDICAID, SELFPAY ==
[2021-11-09 14:02] VITALS: BMI 108.5
[2022-05-12] VITALS (10 sets, daily range): BP systolic 122–128; BP diastolic 61–69; PULSE 93–108; RESP 15–22; TEMP 37.7–38.3; O2SAT 88–97; BMI 30.9
--- NOTE | 2022-05-12 21:29 | ED.GENADULT ---
HPI - General Adult General Chief complaint: Weakness Stated complaint: weakness Time Seen by Provider: 05/12/22 21:21 Source: EMS Mode of arrival: EMS Limitations: altered mental status History of Present Illness HPI narrative: Patient is a 58-year-old male who arrives by is for evaluation of weakness and altered mental status. Patient is unable to provide much if any a HPI review of systems secondary to his mental status upon arrival. Is reported by EMS that they were called by family. Per report the patient lives alone. The family had not heard from him for a period of time so they went to do wellness check. I am unsure exactly what circumstances they found the patient however he was reported to be confused and very weak. It was reported by EMS that he did admit to smoking marijuana. Upon my evaluation the patient states that he is in the hospital but when asked further questions he does not answer. Unsure if he does not understand or if he is too weak or confused to answer. He does follow commands. He is maintaining his airway. Related Data Home Medications Medication Instructions Recorded Confirmed quetiapine 25 mg tablet (Seroquel) 25 mg PO BEDTIME 10/14/21 03/06/22 atorvastatin 80 mg tablet 80 mg PO 1XD 05/13/22 05/13/22 bupropion HCl 300 mg 24 hr tablet, 300 mg PO 1XD 05/13/22 05/13/22 extended release doxycycline hyclate 100 mg capsule 100 mg PO 2XD 05/13/22 05/13/22 gabapentin 300 mg capsule 300 mg PO 2XD 05/13/22 05/13/22 levothyroxine 125 mcg tablet 125 mcg PO 1XD 05/13/22 05/13/22 lorazepam 1 mg tablet 1 mg PO 2XD 05/13/22 05/13/22 omeprazole 20 mg capsule,delayed 20 mg PO 1XD 05/13/22 05/13/22 release oxycodone 5 mg tablet 5 mg PO Q4-6H PRN Pain, Moderate 05/13/22 05/13/22 quetiapine 25 mg tablet 25 mg PO BEDTIME 05/13/22 05/13/22 Previous Rx's Medication Instructions Recorded ipratropium 0.5 mg-albuterol 3 mg 3 ml INH QID #360 mL 03/12/19 (2.5 mg base)/3 mL nebulization soln blood-glucose meter #1 ea 01/11/21 Disabled Parking Permit #1 ea 02/15/21 clopidogrel 75 mg tablet 75 mg PO DAILY #90 tabs 07/15/21 methocarbamol 500 mg tablet 500 mg PO TID PRN mm tightness #90 08/19/21 tabs insulin aspart U-100 100 unit/mL See Rx Instructions SUBCUT 10/22/21 (3 mL) subcutaneous pen (Novolog .COMPLEX #15 mL Flexpen U-100 Insulin aspart) beclomethasone dipropionate 40 1 inh inhalation BID Shortness Of 11/18/21 mcg/actuation HFA breath activated Breath #10.6 grams aerosol blood sugar diagnostic (Blood #100 ea 11/18/21 Glucose Test strips) flash glucose scanning reader #1 ea 12/03/21 (FreeStyle Timmy 2 Mayer) flash glucose sensor (FreeStyle #1 ea 12/03/21 Timmy 2 Sensor kit) doxycycline hyclate 100 mg capsule 100 mg PO BID #20 caps 12/09/21 gabapentin 300 mg capsule 900 mg PO BID #540 caps 12/09/21 levothyroxine 125 mcg tablet 125 mcg PO DAILY #90 tabs 12/09/21 citalopram 40 mg tablet (Celexa) 40 mg PO DAILY #90 tabs 12/17/21 triamcinolone acetonide 0.1 % 1 applic topical DAILY #30 grams 12/17/21 topical cream lancets 33 gauge (BD Ultra Fine #100 ea 03/06/22 Lancets) lorazepam 1 mg tablet 1 mg PO BID PRN sedation #60 tabs 03/11/22 albuterol sulfate 90 mcg/actuation 2 puff inhalation QID PRN 03/14/22 aerosol inhaler (Proventil HFA) shortness of breath #18 grams insulin glargine U-300 conc 300 80 unit (0.2667 mL) SUBCUT BID #15 04/21/22 unit/mL (3 mL) subcutaneous pen mL pen needle, diabetic 31 gauge x #100 ea 04/23/2203/17 (Comfort EZ Pen [place]) oxycodone 5 mg tablet 5 mg PO Q4-6H PRN pain #60 tabs 04/24/22 atorvastatin 80 mg tablet 80 mg PO DAILY #90 tabs 05/11/22 bupropion HCl 300 mg 24 hr tablet, 300 mg PO QAM #90 tabs 05/11/22 extended release omeprazole 20 mg tablet,delayed 20 mg PO DAILY #90 tabs 05/11/22 release Allergies Allergy/AdvReac Type Severity Reaction Status Date / Time adhesive Allergy Mild REDNESS/ITC Verified 03/06/22 13:12 HINESS morphine Allergy Verified 03/06/22 13:12 Review of Systems Review of Systems ROS Unobtainable: Unobtainable due to mental condition Patient History Medical History Bilateral otitis externa Borderline hyperlipidemia Cellulitis Chicken pox (1956) Chickenpox (1956) Chronic cough COPD (chronic obstructive pulmonary disease) Coronary artery disease (2006) Depression (2008) Diabetes (1994) Eczema Foot pain GERD (gastroesophageal reflux disease) (2012) Gout Hearing reduced Hip pain History of recurrent TIAs Hyperlipidemia Hypertension Hypothyroidism Kidney disease (2009) Measles (1955) Measles (1955) Mental health assessment declined Mumps (1958) Mumps (1958) Neuropathy Obstructive sleep apnea Otitis externa Screening for malignant neoplasm of colon Shoulder pain Sleep apnea Status post myocardial infarction Steatosis Strain of muscle of right groin region (03/30/18) Type 2 diabetes mellitus Well adult exam Surgical History Anesthesia History of heart artery stent (2006) History of heart artery stent (2010) Hx of shoulder surgery (2005) Family History Brother Age: 67 Diabetes mellitus Hyperlipidemia Mother Heart disease Hypertension Hyperlipidemia Diabetes mellitus Grandmother Diabetes mellitus Brother No problems noted. Sister Breast cancer Social History marital status: details: 3 years ago household members: none lives independently: Yes housing: apartment Smoking Status: Current every day smoker Tobacco: How many years used: 45 alcohol intake: current Smoking Status: Current every day smoker alcohol intake frequency: 0-2 drinks per day Substance Use Type: marijuana Exam Initial Vital Signs Initial Vital Signs: Vital Signs Pulse Rate 99 H 05/12/22 21:19 Pulse Oximetry 88 L 05/12/22 21:19 Const General: disheveled, No ill appearing and well hydrated HENMT Head: normal to inspection and normocephalic Mouth: moist mucous membranes Eyes Pupils: PERRL Neck Neck: normal visual inspection Chest Chest: No crepitus Resp Effort & Inspection: normal respiratory effort Auscultation: clear to auscultation bilaterally Cardio Rate: regular rate Rhythm: regular rhythm GI Inspection: distended Palpation: soft and No guarding Skin General: no rashes or lesions noted Neuro General: moves all extremities and patient confused Extrem General: normal to inspection, capillary refill normal and No edema Psych Appearance: disheveled Scores GCS Elia coma scale eye opening: Spontaneous [place] coma scale verbal response: Confused [place] coma scale motor response: Obey commands [place] coma scale total score: 14 Course Orders Ordered: ED Orders 05/12/22 21:25 Acetaminophen Stat Complete Blood Count AUTO DIFF Stat Comprehensive Metabolic Panel Stat Ethanol (ETOH) Stat Ketones (Beta-Hydroxybutyrate) Stat Lactate (Lactic Acid) Stat Lipase Stat Magnesium Stat Procalcitonin Stat Salicylate Stat Thyroid Stimulating Hormone Stat Troponin & CK Cardiac Panel Stat 05/12/22 21:31 Arterial Blood Gas Stat COVID19 -Nasal RAPID/Pre-Proc Stat 05/12/22 21:32 CT head/brain wo con Stat XR chest 1V Stat 05/12/22 21:33 EKG-12 Lead Stat 05/12/22 21:37 Ammonia (NH3) Stat 05/12/22 21:52 Blood Culture Stat 05/12/22 22:30 Urinalysis and Microscopic Stat Urine Culture Stat Urine Drug Screen, Rapid Stat Acetaminophen (Acetaminophen 325 Mg Tablet) 975 mg PO Q8H PRN PRN Reason: Fever/Mild Pain (1-3) Albuterol (Albuterol 2.5 Mg/3 Ml Neb (Adult)) 2.5 mg INH QID PRN PRN Reason: Shortness Of Breath Albuterol/Ipratropium (Albuterol/Ipratropium 3 Ml Ampul) 3 ml INH [id number] [facility] Atorvastatin Calcium (Atorvastatin 20 Mg Tablet) 80 mg PO DAILY [facility] Clopidogrel Bisulfate (Clopidogrel 75 Mg Tablet) 75 mg PO DAILY [facility] Dextrose (Dextrose 50 % In Water 25 Gm/50 Ml Syringe) 25 gm IV PRN PRN PRN Reason: Hypoglycemia Enoxaparin Sodium (Enoxaparin 30 Mg/0.3 Ml Syringe) 30 mg SUBCUT DAILY [facility] Sodium Chloride (Normal Saline 0.9%) 1,000 mls @ 60 mls/hr IV CONT [facility] Last Admin: 05/13/22 00:13 Dose: 60 mls/hr Documented By: NIKITA Insulin Glargine (Insulin Glargine 100 Unit/Ml 3ml Pen) 80 unit SUBCUT BID [facility] Insulin Human Lispro (Insulin Lispro 100 Unit/Ml 3ml Vial) 0 unit SUBCUT ACHS [facility]CI[facility]; Protocol Levothyroxine Sodium (Levothyroxine 125 Mcg Tablet) 125 mcg PO DAILY [facility] Lorazepam (Lorazepam 1 Mg Tablet) 1 mg PO BID PRN PRN Reason: sedation Non-Formulary Medication (Beclomethasone Dipropionate) 1 inhalation INHALATION BID [facility] Non-Formulary Medication (Omeprazole) 20 mg PO DAILY [facility] Prednisone (Prednisone 20 Mg Tablet) 40 mg PO DAILY [facility] Stop: 05/18/22 08:59 Quetiapine Fumarate (Quetiapine 25 Mg Tablet) 25 mg PO BEDTIME [facility] Discontinued Medications Acetaminophen (Acetaminophen 650 Mg Supp) 650 mg WI Q4HR PRN PRN Reason: Fever/Mild Pain (1-3) Sodium Chloride (Normal Saline 0.9%) 1,000 mls @ 125 mls/hr IV CONT [facility] Ceftriaxone Sodium 1,000 mg/ (Sodium Chloride) 100 mls @ 200 mls/hr IV NOW ONE Stop: 05/12/22 22:21 Last Infusion: 05/12/22 23:25 Dose: 0 mls/hr Documented By: Admin: 05/12/22 22:28 Dose: 200 mls/hr Documented By: NHUNG Vancomycin HCl (Vancomycin) 1,000 mg in 200 mls @ 200 mls/hr IV NOW ONE Stop: 05/12/22 23:19 Last Infusion: 05/13/22 00:28 Dose: 200 mls/hr Documented By: Admin: 05/12/22 22:55 Dose: 200 mls/hr Documented By: FABRIZIO Sodium Chloride (Normal Saline 0.9%) 1,000 mls @ 1,000 mls/hr IV BOLUS ONE Stop: 05/12/22 23:19 Last Infusion: 05/13/22 00:27 Dose: 0 mls/hr Documented By: Admin: 05/12/22 22:27 Dose: 1,000 mls/hr Documented By: NHUNG Vital Signs Vital signs: Vital Signs - 8 hr 05/12/22 21:24 05/12/22 21:38 05/12/22 21:19 Temperature 100.1 F H 101 F H Pulse Rate 99 H 99 H Respiratory Rate 18 Blood Pressure 122/61 Pulse Oximetry 97 88 L Oxygen Delivery Method Nasal Cannula Oxygen Flow Rate 4 05/12/22 21:21 05/12/22 21:21 05/12/22 21:30 Temperature Pulse Rate 100 H 97 H Respiratory Rate Blood Pressure 122/61 Pulse Oximetry 96 97 Oxygen Delivery Method Oxygen Flow Rate 05/12/22 22:00 05/12/22 22:42 05/12/22 23:00 Temperature Pulse Rate 93 H 96 H 95 H Respiratory Rate 15 Blood Pressure Pulse Oximetry 95 96 95 Oxygen Delivery Method Oxygen Flow Rate Medical Decision Making Medical Records Medical records reviewed: Yes I reviewed the patient's medical records. Lab Data Lab results reviewed: Yes I reviewed the patient's lab results. Result diagrams: 05/12/22 21:25 05/12/22 21:25 Labs: Lab Results 05/12/22 05/12/22 05/12/22 Range/Units 21:25 21:25 21:25 WBC 13.4 H (4.5-11.0) X10^3/uL RBC 4.69 (4.5-5.9) X10^6/uL Hgb 14.3 (13.5-17.5) g/dL Hct 42.0 (41-53) % MCV 89.7 (80-100) fL MCH 30.5 (26-34) PG MCHC 34.1 (30-36) % RDW 14.8 (11.6-14.8) % Plt Count 214 (150-400) X10^3/uL Neut % (Auto) 82.7 H (50-75) % Lymph % (Auto) 9.5 L (25-40) % [place] % (Auto) 7.0 (3-14) % Eos % (Auto) 0.6 L (2-4) % Baso % (Auto) 0.2 (0-2) % Neut # (Auto) 10897 H (7508-7371) /uL Lymph # (Auto) 1300 (4817-6020) /uL [place] # (Auto) 900 (0-900) /uL Eos # (Auto) 100 (0-450) /uL Baso # (Auto) 0 (0-100) /uL ESR (0-15) MM/HR Sodium 134 L (137-145) mmol/L Potassium 4.3 (3.4-5.1) mmol/L Chloride 98 (98-107) mmol/L Carbon Dioxide 26 (22-32) mmol/L BUN 17 (9-20) mg/dL Creatinine 1.67 H (0.66-1.25) mg/dL Estimated GFR 44 L (>60) mL/min BUN/Creatinine Ratio 10.2 (6-22) Glucose 108 (80-110) mg/dL Lactate 1.4 (0.7-2.1) mmol/L Calcium 8.6 (8.4-10.2) mg/dL Magnesium 1.6 (1.6-2.3) mg/dL Total Bilirubin 0.8 (0.2-1.3) mg/dL AST 73 H (17-59) IU/L ALT 45 (<50) IU/L Alkaline Phosphatase 83 (38-126) U/L Ammonia (9-30) umol/L Lactate Dehydrogenase (313-618) U/L Total Creatine Kinase 1543 H (55-170) U/L CK-MB (CK-2) 53.40 H (<2.37) ng/mL CK-MB (CK-2) Rel Index 3.5 (1.5-5.0) % Troponin I 0.016 (0.01-0.034) ng/mL C-Reactive Protein (<1.0) mg/dL NT-Pro-B Natriuret Pep (<125) pg/mL Total Protein 7.9 (6.3-8.2) g/dL Albumin 4.4 (3.5-5.0) g/dL Globulin 3.5 (1.7-4.1) g/dL Albumin/Globulin Ratio 1.3 (1.0-2.8) Lipase 34 (23-300) U/L Procalcitonin 0.16 (<0.5) ng/mL TSH (0.47-4.68) uIU/mL Urine Color Urine Appearance Urine pH (4.5-8.0) Ur Specific [place] (1.000-1.035) Urine Protein (Negative) Urine Glucose (UA) (Negative) g/dL Urine Ketones (NEGATIVE) Urine Occult Blood (Negative) Urine Nitrate (Negative) Urine Bilirubin (NEGATIVE) Urine Urobilinogen (0.2) E.U./dL Ur Leukocyte Esterase (NEGATIVE) Urine RBC (0-5/HPF) Urine WBC (0-5/HPF) Ur Squamous Epith Cells (0-5/HPF) Amorphous Sediment Urine Bacteria (None) Hyaline Casts (None) Ur Culture Indicated? Salicylates < 1.0 (<20) mg/dL U Opiates 300ng/mL cut (Negative) Ur Oxycodone Screen (Negative) Urine Methadone Screen (Negative) Acetaminophen < 10 (10-30) ug/mL Ur Barbiturates Screen (Negative) U Tricyclic Antidepress (Negative) Ur Phencyclidine Scrn (Negative) Ur Amphetamines Screen (Negative) U Methamphetamines Scrn (Negative) Ur MDMA Scrn (Ecstasy) (Negative) U Benzodiazepines Scrn (Negative) Urine Cocaine Screen (Negative) U Marijuana (THC) Screen (Negative) Ethyl Alcohol < 10 ( - 10) mg/dL Ketones 0.48 H (<0.27) mmol/L SARS-CoV-2 (PCR) (Negative) 05/12/22 05/12/22 05/12/22 Range/Units 21:25 21:25 21:25 WBC (4.5-11.0) X10^3/uL RBC (4.5-5.9) X10^6/uL Hgb (13.5-17.5) g/dL Hct (41-53) % MCV (80-100) fL MCH (26-34) PG MCHC (30-36) % RDW (11.6-14.8) % Plt Count (150-400) X10^3/uL Neut % (Auto) (50-75) % Lymph % (Auto) (25-40) % [place] % (Auto) (3-14) % Eos % (Auto) (2-4) % Baso % (Auto) (0-2) % Neut # (Auto) (5574-8038) /uL Lymph # (Auto) (8923-5484) /uL [place] # (Auto) (0-900) /uL Eos # (Auto) (0-450) /uL Baso # (Auto) (0-100) /uL ESR 59 H (0-15) MM/HR Sodium (137-145) mmol/L Potassium (3.4-5.1) mmol/L Chloride (98-107) mmol/L Carbon Dioxide (22-32) mmol/L BUN (9-20) mg/dL Creatinine (0.66-1.25) mg/dL Estimated GFR (>60) mL/min BUN/Creatinine Ratio (6-22) Glucose (80-110) mg/dL Lactate (0.7-2.1) mmol/L Calcium (8.4-10.2) mg/dL Magnesium (1.6-2.3) mg/dL Total Bilirubin (0.2-1.3) mg/dL AST (17-59) IU/L ALT (<50) IU/L Alkaline Phosphatase (38-126) U/L Ammonia (9-30) umol/L Lactate Dehydrogenase (313-618) U/L Total Creatine Kinase (55-170) U/L CK-MB (CK-2) (<2.37) ng/mL CK-MB (CK-2) Rel Index (1.5-5.0) % Troponin I (0.01-0.034) ng/mL C-Reactive Protein (<1.0) mg/dL NT-Pro-B Natriuret Pep 63 (<125) pg/mL Total Protein (6.3-8.2) g/dL Albumin (3.5-5.0) g/dL Globulin (1.7-4.1) g/dL Albumin/Globulin Ratio (1.0-2.8) Lipase (23-300) U/L Procalcitonin (<0.5) ng/mL TSH 3.16 (0.47-4.68) uIU/mL Urine Color Urine Appearance Urine pH (4.5-8.0) Ur Specific [place] (1.000-1.035) Urine Protein (Negative) Urine Glucose (UA) (Negative) g/dL Urine Ketones (NEGATIVE) Urine Occult Blood (Negative) Urine Nitrate (Negative) Urine Bilirubin (NEGATIVE) Urine Urobilinogen (0.2) E.U./dL Ur Leukocyte Esterase (NEGATIVE) Urine RBC (0-5/HPF) Urine WBC (0-5/HPF) Ur Squamous Epith Cells (0-5/HPF) Amorphous Sediment Urine Bacteria (None) Hyaline Casts (None) Ur Culture Indicated? Salicylates (<20) mg/dL U Opiates 300ng/mL cut (Negative) Ur Oxycodone Screen (Negative) Urine Methadone Screen (Negative) Acetaminophen (10-30) ug/mL Ur Barbiturates Screen (Negative) U Tricyclic Antidepress (Negative) Ur Phencyclidine Scrn (Negative) Ur Amphetamines Screen (Negative) U Methamphetamines Scrn (Negative) Ur MDMA Scrn (Ecstasy) (Negative) U Benzodiazepines Scrn (Negative) Urine Cocaine Screen (Negative) U Marijuana (THC) Screen (Negative) Ethyl Alcohol ( - 10) mg/dL Ketones (<0.27) mmol/L SARS-CoV-2 (PCR) (Negative) 05/12/22 05/12/22 05/12/22 Range/Units 21:25 21:31 21:37 WBC (4.5-11.0) X10^3/uL RBC (4.5-5.9) X10^6/uL Hgb (13.5-17.5) g/dL Hct (41-53) % MCV (80-100) fL MCH (26-34) PG MCHC (30-36) % RDW (11.6-14.8) % Plt Count (150-400) X10^3/uL Neut % (Auto) (50-75) % Lymph % (Auto) (25-40) % [place] % (Auto) (3-14) % Eos % (Auto) (2-4) % Baso % (Auto) (0-2) % Neut # (Auto) (4308-7687) /uL Lymph # (Auto) (9136-6875) /uL [place] # (Auto) (0-900) /uL Eos # (Auto) (0-450) /uL Baso # (Auto) (0-100) /uL ESR (0-15) MM/HR Sodium (137-145) mmol/L Potassium (3.4-5.1) mmol/L Chloride (98-107) mmol/L Carbon Dioxide (22-32) mmol/L BUN (9-20) mg/dL Creatinine (0.66-1.25) mg/dL Estimated GFR (>60) mL/min BUN/Creatinine Ratio (6-22) Glucose (80-110) mg/dL Lactate (0.7-2.1) mmol/L Calcium (8.4-10.2) mg/dL Magnesium (1.6-2.3) mg/dL Total Bilirubin (0.2-1.3) mg/dL AST (17-59) IU/L ALT (<50) IU/L Alkaline Phosphatase (38-126) U/L Ammonia < 9 L (9-30) umol/L Lactate Dehydrogenase 779 H (313-618) U/L Total Creatine Kinase (55-170) U/L CK-MB (CK-2) (<2.37) ng/mL CK-MB (CK-2) Rel Index (1.5-5.0) % Troponin I (0.01-0.034) ng/mL C-Reactive Protein 5.5 H (<1.0) mg/dL NT-Pro-B Natriuret Pep (<125) pg/mL Total Protein (6.3-8.2) g/dL Albumin (3.5-5.0) g/dL Globulin (1.7-4.1) g/dL Albumin/Globulin Ratio (1.0-2.8) Lipase (23-300) U/L Procalcitonin (<0.5) ng/mL TSH (0.47-4.68) uIU/mL Urine Color Urine Appearance Urine pH (4.5-8.0) Ur Specific [place] (1.000-1.035) Urine Protein (Negative) Urine Glucose (UA) (Negative) g/dL Urine Ketones (NEGATIVE) Urine Occult Blood (Negative) Urine Nitrate (Negative) Urine Bilirubin (NEGATIVE) Urine Urobilinogen (0.2) E.U./dL Ur Leukocyte Esterase (NEGATIVE) Urine RBC (0-5/HPF) Urine WBC (0-5/HPF) Ur Squamous Epith Cells (0-5/HPF) Amorphous Sediment Urine Bacteria (None) Hyaline Casts (None) Ur Culture Indicated? Salicylates (<20) mg/dL U Opiates 300ng/mL cut (Negative) Ur Oxycodone Screen (Negative) Urine Methadone Screen (Negative) Acetaminophen (10-30) ug/mL Ur Barbiturates Screen (Negative) U Tricyclic Antidepress (Negative) Ur Phencyclidine Scrn (Negative) Ur Amphetamines Screen (Negative) U Methamphetamines Scrn (Negative) Ur MDMA Scrn (Ecstasy) (Negative) U Benzodiazepines Scrn (Negative) Urine Cocaine Screen (Negative) U Marijuana (THC) Screen (Negative) Ethyl Alcohol ( - 10) mg/dL Ketones (<0.27) mmol/L SARS-CoV-2 (PCR) Negative (Negative) 05/12/22 05/12/22 Range/Units 22:30 22:30 WBC (4.5-11.0) X10^3/uL RBC (4.5-5.9) X10^6/uL Hgb (13.5-17.5) g/dL Hct (41-53) % MCV (80-100) fL MCH (26-34) PG MCHC (30-36) % RDW (11.6-14.8) % Plt Count (150-400) X10^3/uL Neut % (Auto) (50-75) % Lymph % (Auto) (25-40) % [place] % (Auto) (3-14) % Eos % (Auto) (2-4) % Baso % (Auto) (0-2) % Neut # (Auto) (9227-2509) /uL Lymph # (Auto) (1850-2078) /uL [place] # (Auto) (0-900) /uL Eos # (Auto) (0-450) /uL Baso # (Auto) (0-100) /uL ESR (0-15) MM/HR Sodium (137-145) mmol/L Potassium (3.4-5.1) mmol/L Chloride (98-107) mmol/L Carbon Dioxide (22-32) mmol/L BUN (9-20) mg/dL Creatinine (0.66-1.25) mg/dL Estimated GFR (>60) mL/min BUN/Creatinine Ratio (6-22) Glucose (80-110) mg/dL Lactate (0.7-2.1) mmol/L Calcium (8.4-10.2) mg/dL Magnesium (1.6-2.3) mg/dL Total Bilirubin (0.2-1.3) mg/dL AST (17-59) IU/L ALT (<50) IU/L Alkaline Phosphatase (38-126) U/L Ammonia (9-30) umol/L Lactate Dehydrogenase (313-618) U/L Total Creatine Kinase (55-170) U/L CK-MB (CK-2) (<2.37) ng/mL CK-MB (CK-2) Rel Index (1.5-5.0) % Troponin I (0.01-0.034) ng/mL C-Reactive Protein (<1.0) mg/dL NT-Pro-B Natriuret Pep (<125) pg/mL Total Protein (6.3-8.2) g/dL Albumin (3.5-5.0) g/dL Globulin (1.7-4.1) g/dL Albumin/Globulin Ratio (1.0-2.8) Lipase (23-300) U/L Procalcitonin (<0.5) ng/mL TSH (0.47-4.68) uIU/mL Urine Color Yellow Urine Appearance Clear Urine pH 5.0 (4.5-8.0) Ur Specific [place] 1.020 (1.000-1.035) Urine Protein 2+ H (Negative) Urine Glucose (UA) 2+ H (Negative) g/dL Urine Ketones Negative (NEGATIVE) Urine Occult Blood Trace-intact (Negative) Urine Nitrate Negative (Negative) Urine Bilirubin Negative (NEGATIVE) Urine Urobilinogen 0.2 (0.2) E.U./dL Ur Leukocyte Esterase Negative (NEGATIVE) Urine RBC 0-1/hpf (0-5/HPF) Urine WBC None seen (0-5/HPF) Ur Squamous Epith Cells 0-1 /hpf (0-5/HPF) Amorphous Sediment 1+ Urine Bacteria None seen (None) Hyaline Casts 0-1/lpf (None) Ur Culture Indicated? Culture not indicate Salicylates (<20) mg/dL U Opiates 300ng/mL cut Negative (Negative) Ur Oxycodone Screen Positive H (Negative) Urine Methadone Screen Negative (Negative) Acetaminophen (10-30) ug/mL Ur Barbiturates Screen Negative (Negative) U Tricyclic Antidepress Negative (Negative) Ur Phencyclidine Scrn Negative (Negative) Ur Amphetamines Screen Negative (Negative) U Methamphetamines Scrn Negative (Negative) Ur MDMA Scrn (Ecstasy) Negative (Negative) U Benzodiazepines Scrn Positive H (Negative) Urine Cocaine Screen Negative (Negative) U Marijuana (THC) Screen Positive H (Negative) Ethyl Alcohol ( - 10) mg/dL Ketones (<0.27) mmol/L SARS-CoV-2 (PCR) (Negative) Imaging Data Chest x-ray: Radiologist's Impression: [address] [address] XRay Report Signed Patient: Carlos Randall MR#: [id number] : 1955 Acct:[id number] Age/Sex: 66 / M Date of Service: 05/12/22 Loc: ED Accession Number: [id number] ?? Procedure: XR chest 1V Ordering Provider: Neri Burt D.O. PROCEDURE:? XR CHEST 1V ? INDICATIONS:? eval for PNA ? TECHNIQUE:? One view of the chest was acquired.? ? COMPARISON:? [facility], CR, XR CHEST 1V, 09/25/2021, 16:28. ? FINDINGS:? ? Surgical changes and devices:? None.? ? Lungs and pleura:? There are patchy indistinct bilateral airspace opacities suggestive pneumonia.? There is also increased pulmonary vascular prominence which may represent pulmonary edema.? No pleural effusions or pneumothorax.? ? Mediastinum:? Mediastinal contours appear normal.? Heart size is normal.? ? Bones and chest wall:? No suspicious bony lesions.? Overlying soft tissues appear unremarkable.? ? IMPRESSION:? ? 1. Bilateral patchy indistinct airspace opacities suggestive of pneumonia.? Consider short-term follow-up to demonstrate resolution. ? 2. Increased pulmonary vascular prominence may reflect mild pulmonary edema.? ? ? Dictated by: Pasha Dunn M.D. on 05/12/2022 at 22:42 ? ? Approved by: Pasha Dunn M.D. on 05/12/2022 at 22:43?? CT scan - head: Radiologist's Impression: [address] [address] [address] Scan Report Signed Patient: Carlos Randall MR#: [id number] : 1955 Acct:[id number] Age/Sex: 66 / M Date of Service: 05/12/22 Loc: ED Accession Number: [id number] ?? Procedure: CT head/brain wo con Ordering Provider: Neri Burt D.O. PROCEDURE:? CT HEAD/BRAIN WO CON ? INDICATIONS:? AMS ? TECHNIQUE:? Noncontrast 4.5 mm thick angled axial sections acquired from the foramen magnum to the vertex, with coronal and sagittal reformats.? For radiation dose reduction, the following was used:? automated exposure control, adjustment of mA and/or kV according to patient size.? ? COMPARISON:? [facility], CT, CT HEAD/BRAIN WO CON, 11/09/2021, 7:51. ? FINDINGS:? Image quality:? Excellent.? ? CSF spaces:? Basal cisterns are patent.? No extra-axial fluid collections.? Ventricles are normal in size and shape.? ? Brain:? No intracranial hemorrhage, mass, or mass effect.? [place]-white matter interface appears preserved.? ? Skull and face:? Calvarium and visualized facial bones are intact, without suspicious lesions.? ? Sinuses:? Visualized sinuses and mastoids are clear.? ? IMPRESSION:? ? 1. No acute intracranial abnormality.? ? ? Dictated by: Pasha Dunn M.D. on 05/12/2022 at 22:10 ? ? Approved by: Pasha Dunn M.D. on 05/12/2022 at 22:11?? ECG Data Attestation: I personally reviewed and interpreted this ECG as follows: Interpretation: Sinus rhythm Ventricular rate 93 Normal axis Normal QRS Normal QTC No ST T wave changes MDM Narrative Medical decision making narrative: Afebrile. Heart rate in the 90s. Not hypotensive. Does have a leukocytosis. Review of his medical record shows that he is a wos-xawkeps-nzsfkdlfo diabetic. Not in DKA. Also records showing COPD and CHF. ABG shows pH 7.32 pCO2 of 53. Head CT shows no signs of acute pathology. Chest x-ray concerning for pneumonia. Upon arrival patient was hypoxic in the 80s. This improved by oxygen by nasal cannula. CK also elevated. There is no signs of trauma. Blood cultures were obtained. Antibiotics administered. Fluid administered. Patient is disheveled. He did follow commands. He did move all 4 extremities to command and also spontaneously. No localizing signs of CVA. Discussed the case with DUSTY Neumann the [facility] provider who will admit for further evaluation and treatment of patient's symptoms. Discharge Plan Departure Patient Disposition: Admitted As Inpatient Clinical Impression: Acute confusion, Pneumonia, Rhabdomyolysis, Hypoxia, Acute kidney injury Admit Date/Time: 05/12/22 23:08 Admit Provider: Parris Neumann
--- NOTE | 2022-05-12 21:32 | DI.RAD.S_ITS ---
PROCEDURE: XR CHEST 1V INDICATIONS: eval for PNA TECHNIQUE: One view of the chest was acquired. COMPARISON: [facility], CR, XR CHEST 1V, 09/25/2021, 16:28. FINDINGS: Surgical changes and devices: None. Lungs and pleura: There are patchy indistinct bilateral airspace opacities suggestive pneumonia. There is also increased pulmonary vascular prominence which may represent pulmonary edema. No pleural effusions or pneumothorax. Mediastinum: Mediastinal contours appear normal. Heart size is normal. Bones and chest wall: No suspicious bony lesions. Overlying soft tissues appear unremarkable. IMPRESSION: 1. Bilateral patchy indistinct airspace opacities suggestive of pneumonia. Consider short-term follow-up to demonstrate resolution. 2. Increased pulmonary vascular prominence may reflect mild pulmonary edema. Dictated by: Pasha Dunn M.D. on 05/12/2022 at 22:42 Approved by: Pasha Dunn M.D. on 05/12/2022 at 22:43
--- NOTE | 2022-05-12 21:32 | DI.CT.S_ITS ---
PROCEDURE: CT HEAD/BRAIN WO CON INDICATIONS: AMS TECHNIQUE: Noncontrast 4.5 mm thick angled axial sections acquired from the foramen magnum to the vertex, with coronal and sagittal reformats. For radiation dose reduction, the following was used: automated exposure control, adjustment of mA and/or kV according to patient size. COMPARISON: [facility], CT, CT HEAD/BRAIN WO CON, 11/09/2021, 7:51. FINDINGS: Image quality: Excellent. CSF spaces: Basal cisterns are patent. No extra-axial fluid collections. Ventricles are normal in size and shape. Brain: No intracranial hemorrhage, mass, or mass effect. [place]-white matter interface appears preserved. Skull and face: Calvarium and visualized facial bones are intact, without suspicious lesions. Sinuses: Visualized sinuses and mastoids are clear. IMPRESSION: 1. No acute intracranial abnormality. Dictated by: Pasha Dunn M.D. on 05/12/2022 at 22:10 Approved by: Pasha Dunn M.D. on 05/12/2022 at 22:11
[2022-05-12 21:46] LABS: Add Manual Diff / Slide Review NO; Basophils Absolute Auto 0 /uL (0-100); Basophils Percent Auto 0.2 % (0-2); Eosinophils Absolute Auto 100 /uL (0-450); Eosinophils Percent Auto 0.6 % (2-4); HEMOLYSIS < 15 (0-50); Hemoglobin 14.3 g/dL (13.5-17.5); Lymphocytes Absolute Auto 1300 /uL (1100-4500); Lymphocytes Percent Auto 9.5 % (25-40); Mean Corpuscular HGB Conc 34.1 % (30-36); Mean Corpuscular Hemoglobin 30.5 PG (26-34); Mean Corpuscular Volume 89.7 fL (80-100); Monocytes Absolute Auto 900 /uL (0-900); Neutrophils Absolute Auto 11100 /uL (1500-7000); Neutrophils Percent Auto 82.7 % (50-75); Platelet Count 214 X10^3/uL (150-400); Red Blood Cell Count 4.69 X10^6/uL (4.5-5.9); Red Cell Distribution Width 14.8 % (11.6-14.8); White Blood Cell Count 13.4 X10^3/uL (4.5-11.0)
[2022-05-12 21:48] LABS: COVID19 -Nasal RAPID Negative (Negative)
[2022-05-12 21:50] LABS: Lactate (Lactic Acid) 1.4 mmol/L (0.7-2.1)
[2022-05-12 21:51] LABS: Acetaminophen < 10 ug/mL (10-30); Alanine Aminotransferase 45 IU/L (<50); Albumin 4.4 g/dL (3.5-5.0); Albumin Globulin Ratio 1.3 (1.0-2.8); Alkaline Phosphatase 83 U/L (38-126); Aspartate Aminotransferase 73 IU/L (17-59); BUN Creatinine Ratio 10.2 (6-22); Bilirubin Total 0.8 mg/dL (0.2-1.3); Blood Urea Nitrogen 17 mg/dL (9-20); Calcium 8.6 mg/dL (8.4-10.2); Carbon Dioxide 26 mmol/L (22-32); Chloride 98 mmol/L (98-107); Creatine Kinase 1543 U/L (55-170); Estimated Glomerular Filt Rate 44 mL/min (>60); Ethanol (ETOH) < 10 mg/dL; Globulin 3.5 g/dL (1.7-4.1); Glucose 108 mg/dL (80-110); Lipase 34 U/L (23-300); Magnesium 1.6 mg/dL (1.6-2.3); Potassium 4.3 mmol/L (3.4-5.1); Salicylate < 1.0 mg/dL (<20); Sodium 134 mmol/L (137-145); Total Protein 7.9 g/dL (6.3-8.2)
[2022-05-12 22:00] LABS: Ammonia (NH3) < 9 umol/L (9-30)
[2022-05-12 22:03] LABS: Troponin I 0.016 ng/mL (0.01-0.034)
[2022-05-12 22:06] LABS: CKMB % Relative Index 3.5 % (1.5-5.0)
[2022-05-12 22:07] LABS: Procalcitonin 0.16 ng/mL (<0.5)
[2022-05-12] MEDS: SODIUM CHLORIDE 0.9% 1,000 ML 1000 ML IV (22:27)
[2022-05-12 22:28] LABS: Thyroid Stimulating Hormone 3.16 uIU/mL (0.47-4.68)
[2022-05-12] MEDS: cefTRIAXone 1,000 MG in SODIUM CHLORIDE 0.9% 100 ML 200 MG IV (22:28)
[2022-05-12 22:49] LABS: Appearance Urine UA CLEAR; Bilirubin Urine UA NEGATIVE (NEGATIVE); Color Urine UA YELLOW; Glucose Urine UA 2+ g/dL (Negative); Ketones Urine UA NEGATIVE (NEGATIVE); Leukocyte Esterase Urine UA NEGATIVE (NEGATIVE); Nitrite Urine UA NEGATIVE (Negative); Occult Blood Urine UA TRACE-INTACT (Negative); Protein Urine UA 2+ (Negative); Urobilinogen Urine UA 0.2 E.U./dL (0.2)
[2022-05-12 22:53] LABS: Ur Creatinine Normal (Normal); Ur Specific Gravity Normal (Normal); Urine Amphetamines Negative (Negative); Urine Cocaine Negative (Negative); Urine Methamphetamines Negative (Negative); Urine Tetrahydrocannabinol Positive (Negative); Urine pH Normal (Normal)
[2022-05-12 22:54] LABS: UR Morphine/Opiate cutoff 300 Negative (Negative); Urine Barbiturates Negative (Negative); Urine Benzodiazepines Positive (Negative); Urine MDMA Negative (Negative); Urine Methadone Negative (Negative); Urine Oxycodone Positive (Negative); Urine Phencyclidine Negative (Negative); Urine Tricyclic Antidepressant Negative (Negative)
[2022-05-12] MEDS: VANCOMYCIN 1,000 MG/200 ML PIGGYBACK 200 MG IV (22:55)
[2022-05-12 22:57] LABS: RBC Urine 0-1/HPF (0-5/HPF); Squamous Epithelial Cell Urine 0-1 /HPF (0-5/HPF); WBC Urine None Seen (0-5/HPF)
[2022-05-12 22:58] LABS: Amorphous Sediment Urine 1+; Bacteria Urine None Seen; Hyaline Casts Urine 0-1/LPF
[2022-05-12 23:19] LABS: Ketones (Beta-Hydroxybutyrate) 0.48 mmol/L (<0.27)
[2022-05-13] VITALS (8 sets, daily range): BP systolic 125–166; BP diastolic 62–77; PULSE 85–95; RESP 16–20; TEMP 36.6–37.4; O2SAT 93–98
--- NOTE | 2022-05-13 00:10 | PM.HP.1 ---
History of Present Illness History of Present Illness Date Patient Seen: 05/13/22 Time Patient Seen: 00:10 Chief complaint: weakness Narrative: Carlos Randall is a 66-year-old male with a hx of CA's, TIA's, Falls, Parkinson's, Lewy body dementia, CAD, COPD (no home 02), hypothyroidism, anxiety, pain management, GERD, depression, insulin-dependent type 2 diabetes, and hyperlipidemia who was presented to the ED via EMS after the family found the patient in his home slightly confused. There were no reports that the patient was found down, fall, injury, trauma, recent illness, or loss of consciousness. Patient's presentation to Dr. Burt in ED-patient was able to state that he does not use oxygen at home, but was unwilling to answer any further questions simply by remaining silent. The patient was febrile, tachypneic, hypoxic in the 80s on room air, with an elevated CBC, CKMB, TCK. Due to patient's altered mental status secondary to Parkinson's/Lewy body dementia/over medicated is likely confused greater than baseline but unable to establish at this time. Patient is unable to effectively or appropriately participate in HPI or ROS. Upon admit to the floor patient is febrile with a temp of 101?, BP 122/61, HR 99, RR slightly tachypneic at 18, patient on 4 L nasal cannula at 97%. ABGs pH 7.3, CO2 54, O2 104. Patient has an elevated WBC of 13.4 with a left shift neutrophils 11,100, though procalcitonin and lactate are WNL. Sodium 134, creatinine elevated at 1.47, GFR decreased at 44, patient's ammonia lipase, and TSH all WNL. Patient does have a marked elevated total creatinine kinase at 1543, AST elevated at 73, CK-MB elevated at 53.40, initial troponin WNL but elevated above baseline 0.016. Patient's urinalysis negative for infection in ED no culture ordered. Patient's UDS is positive for THC benzodiazepines and oxycodone. Ketones are pending patient's head CT is negative for any acute intracranial processes at this time. Patient's chest x-ray demonstrated bilateral patchy indistinct airspace opacities possibly suggestive of pneumonia, with increased pulmonary vasculature prominence likely mild pulmonary edema. Patient being admitted for acute acidotic hypercapnic respiratory failure (pneumonia(viral vs. bacterial), encephalopathy, COPD exacerbation, ISA, and rhabdomyolysis. Patient History Medical History Bilateral otitis externa Borderline hyperlipidemia Cellulitis Chicken pox (1956) Chickenpox (1956) Chronic cough COPD (chronic obstructive pulmonary disease) Coronary artery disease (2006) Depression (2008) Diabetes (1994) Eczema Foot pain GERD (gastroesophageal reflux disease) (2012) Gout Hearing reduced Hip pain History of recurrent TIAs Hyperlipidemia Hypertension Hypothyroidism Kidney disease (2009) Measles (1955) Measles (1955) Mental health assessment declined Mumps (1958) Mumps (1958) Neuropathy Obstructive sleep apnea Otitis externa Screening for malignant neoplasm of colon Shoulder pain Sleep apnea Status post myocardial infarction Steatosis Strain of muscle of right groin region (03/30/18) Type 2 diabetes mellitus Well adult exam Surgical History Anesthesia History of heart artery stent (2006) History of heart artery stent (2010) Hx of shoulder surgery (2005) Family & Social History Family History Brother Age: 67 Diabetes mellitus Hyperlipidemia Mother Heart disease Hypertension Hyperlipidemia Diabetes mellitus Grandmother Diabetes mellitus Brother No problems noted. Sister Breast cancer Social History: household members none lives independently Yes Safety & Behavioral: Feels Safe in Current Yes Environment Tobacco & Substance use: Tobacco type cigarettes,cannabis/marijuana Smoking Status Current every day smoker alcohol intake current alcohol intake frequency 0-2 drinks per day Substance Use Type marijuana Meds Home Medications and Allergies Home Medications Medication Instructions Recorded Confirmed Type ipratropium 0.5 mg-albuterol 3 mg 3 ml INH QID #360 mL 03/12/19 03/06/22 Rx (2.5 mg base)/3 mL nebulization soln blood-glucose meter #1 ea 01/11/21 03/06/22 Rx Disabled Parking Permit #1 ea 02/15/21 03/06/22 Rx clopidogrel 75 mg tablet 75 mg PO DAILY #90 tabs 07/15/21 03/06/22 Rx methocarbamol 500 mg tablet 500 mg PO TID PRN mm tightness #90 08/19/21 03/06/22 Rx tabs quetiapine 25 mg tablet (Seroquel) 25 mg PO BEDTIME 10/14/21 03/06/22 History insulin aspart U-100 100 unit/mL See Rx Instructions SUBCUT 10/22/21 03/06/22 Rx (3 mL) subcutaneous pen (Novolog .COMPLEX #15 mL Flexpen U-100 Insulin aspart) beclomethasone dipropionate 40 1 inh inhalation BID Shortness Of 11/18/21 03/06/22 Rx mcg/actuation HFA breath activated Breath #10.6 grams aerosol blood sugar diagnostic (Blood #100 ea 11/18/21 03/06/22 Rx Glucose Test strips) flash glucose scanning reader #1 ea 12/03/21 03/06/22 Rx (FreeStyle Timmy 2 Horace) flash glucose sensor (FreeStyle #1 ea 12/03/21 03/06/22 Rx Timmy 2 Sensor kit) doxycycline hyclate 100 mg capsule 100 mg PO BID #20 caps 12/09/21 03/06/22 Rx gabapentin 300 mg capsule 900 mg PO BID #540 caps 12/09/21 03/06/22 Rx levothyroxine 125 mcg tablet 125 mcg PO DAILY #90 tabs 12/09/21 03/06/22 Rx citalopram 40 mg tablet (Celexa) 40 mg PO DAILY #90 tabs 12/17/21 03/06/22 Rx triamcinolone acetonide 0.1 % 1 applic topical DAILY #30 grams 12/17/21 03/06/22 Rx topical cream lancets 33 gauge (BD Ultra Fine #100 ea 03/06/22 03/06/22 Rx Lancets) lorazepam 1 mg tablet 1 mg PO BID PRN sedation #60 tabs 03/11/22 Rx albuterol sulfate 90 mcg/actuation 2 puff inhalation QID PRN 03/14/22 05/13/22 Rx aerosol inhaler (Proventil HFA) shortness of breath #18 grams insulin glargine U-300 conc 300 80 unit (0.2667 mL) SUBCUT BID #15 04/21/22 Rx unit/mL (3 mL) subcutaneous pen mL pen needle, diabetic 31 gauge x #100 ea 04/23/22 Rx 5/16 (Comfort EZ Pen [place]) oxycodone 5 mg tablet 5 mg PO Q4-6H PRN pain #60 tabs 04/24/22 Rx atorvastatin 80 mg tablet 80 mg PO DAILY #90 tabs 05/11/22 Rx bupropion HCl 300 mg 24 hr tablet, 300 mg PO QAM #90 tabs 05/11/22 Rx extended release omeprazole 20 mg tablet,delayed 20 mg PO DAILY #90 tabs 05/11/22 Rx release atorvastatin 80 mg tablet 80 mg PO 1XD 05/13/22 05/13/22 History bupropion HCl 300 mg 24 hr tablet, 300 mg PO 1XD 05/13/22 05/13/22 History extended release doxycycline hyclate 100 mg capsule 100 mg PO 2XD 05/13/22 05/13/22 History gabapentin 300 mg capsule 300 mg PO 2XD 05/13/22 05/13/22 History levothyroxine 125 mcg tablet 125 mcg PO 1XD 05/13/22 05/13/22 History lorazepam 1 mg tablet 1 mg PO 2XD 05/13/22 05/13/22 History omeprazole 20 mg capsule,delayed 20 mg PO 1XD 05/13/22 05/13/22 History release oxycodone 5 mg tablet 5 mg PO Q4-6H PRN Pain, Moderate 05/13/22 05/13/22 History quetiapine 25 mg tablet 25 mg PO BEDTIME 05/13/22 05/13/22 History Allergies Allergy/AdvReac Type Severity Reaction Status Date / Time adhesive Allergy Mild REDNESS/ITC Verified 03/06/22 13:12 HINESS morphine Allergy Verified 03/06/22 13:12 Review of Systems Review of Systems Narrative: Unable to complete appropriate or accurate ROS due to patient's encephalopathy, Parkinson's, and Lewy body dementia. Exam Vital Signs (past 8 hours): - 05/12/22 21:24 05/12/22 21:38 05/12/22 21:19 Temperature 100.1 F H 101 F H Pulse Rate 99 H 99 H Respiratory Rate 18 Blood Pressure 122/61 Pulse Oximetry 97 88 L Oxygen Delivery Method Nasal Cannula Oxygen Flow Rate 4 05/12/22 21:21 05/12/22 21:21 05/12/22 21:30 Temperature Pulse Rate 100 H 97 H Respiratory Rate Blood Pressure 122/61 Pulse Oximetry 96 97 Oxygen Delivery Method Oxygen Flow Rate 05/12/22 22:00 05/12/22 22:42 05/12/22 23:00 Temperature Pulse Rate 93 H 96 H 95 H Respiratory Rate 15 Blood Pressure Pulse Oximetry 95 96 95 Oxygen Delivery Method Oxygen Flow Rate Oxygen Delivery Method Nasal Cannula Oxygen Flow Rate 4 Narrative Exam Narrative: General: Patient is an elderly male, who answers only simple questions, who continuously returns to sleeping and is in no acute distress at this time. HEENT: Normocephalic, atraumatic, extraocular muscles intact, oral pharynx is clear and mucous membranes are moist. Neck is supple and symmetric, trachea is midline, no adenopathy, no thyroid enlargement, nontender, no masses palpated. Negative for JVD Chest: Normal AP diameter and contour without kyphoscoliosis, no nasal flaring, retractions. Positive tachypneic, mildly labored breathing. Lungs: Auscultation of all lung pascual are coarse, wet in bases, decreased but equal with expiratory wheezing throughout, without rhonchi, or rales. Cardio: S1 & S2 with regular mildly tachycardic rate and rhythm without murmur, rubs, or gallops, no carotid bruit, no cardiac pulsations present. Abdomen: Soft nontender, distended, negative for organomegaly. Noted 4 silver dollar size firm fixed discrete skin colored raised masses without fluctuation from mid upper abd in a curved line to right upper /lower mid-line. Nontender likely multiple lipomas. Bowel sounds are present in all 4 quadrants without guarding or rebound, no CVA tenderness. Musculoskeletal: Muscle tone is equal, but decreased in lower extremities, no deformity, crepitus, effusions, cyanosis, clubbing or edema present. Patient has mild erythema present to bilateral anterior shins, with a healed abrasion to right anterior weston. Full range of motion intact radial and pedal pulses are normal. Patient is able to move extremities with full range of motion, at baseline he is wheelchair dependent, with impaired transfer ability from bed or couch to wheelchair requiring in-home care and assistance. Skin: Very Warm to touch dry and intact without rashes, ulcerations or petechiae. Neuro: Alert and orientated x3-only just, patient able to answer questions regarding pain but quickly closes eyes to return to sleep and unwilling to answer or provide any further information. Patient appears to be oversedated, with no obvious symptoms of stroke. sensation to touch intact, no observed gross deficits of cranial nerves. Psych: Patient has a well-kept appearance, unable to asses affect, mental status, thought context or judgments at this time. Objective Labs Result Diagrams: 05/12/22 21:25 05/12/22 21:25 Labs: Laboratory Results - last 24 hr 05/12/22 05/12/22 05/12/22 21:25 21:25 21:25 WBC 13.4 H RBC 4.69 Hgb 14.3 Hct 42.0 MCV 89.7 MCH 30.5 MCHC 34.1 RDW 14.8 Plt Count 214 Neut % (Auto) 82.7 H Lymph % (Auto) 9.5 L [place] % (Auto) 7.0 Eos % (Auto) 0.6 L Baso % (Auto) 0.2 Neut # (Auto) 88255 H Lymph # (Auto) 1300 [place] # (Auto) 900 Eos # (Auto) 100 Baso # (Auto) 0 Sodium 134 L Potassium 4.3 Chloride 98 Carbon Dioxide 26 BUN 17 Creatinine 1.67 H Estimated GFR 44 L BUN/Creatinine Ratio 10.2 Glucose 108 Lactate 1.4 Calcium 8.6 Magnesium 1.6 Total Bilirubin 0.8 AST 73 H ALT 45 Alkaline Phosphatase 83 Ammonia Total Creatine Kinase 1543 H CK-MB (CK-2) 53.40 H CK-MB (CK-2) Rel Index 3.5 Troponin I 0.016 Total Protein 7.9 Albumin 4.4 Globulin 3.5 Albumin/Globulin Ratio 1.3 Lipase 34 Procalcitonin 0.16 TSH Urine Color Urine Appearance Urine pH Ur Specific [place] Urine Protein Urine Glucose (UA) Urine Ketones Urine Occult Blood Urine Nitrate Urine Bilirubin Urine Urobilinogen Ur Leukocyte Esterase Urine RBC Urine WBC Ur Squamous Epith Cells Amorphous Sediment Urine Bacteria Hyaline Casts Ur Culture Indicated? Salicylates < 1.0 U Opiates 300ng/mL cut Ur Oxycodone Screen Urine Methadone Screen Acetaminophen < 10 Ur Barbiturates Screen U Tricyclic Antidepress Ur Phencyclidine Scrn Ur Amphetamines Screen U Methamphetamines Scrn Ur MDMA Scrn (Ecstasy) U Benzodiazepines Scrn Urine Cocaine Screen U Marijuana (THC) Screen Ethyl Alcohol < 10 Ketones 0.48 H SARS-CoV-2 (PCR) 05/12/22 05/12/22 05/12/22 21:25 21:31 21:37 WBC RBC Hgb Hct MCV MCH MCHC RDW Plt Count Neut % (Auto) Lymph % (Auto) [place] % (Auto) Eos % (Auto) Baso % (Auto) Neut # (Auto) Lymph # (Auto) [place] # (Auto) Eos # (Auto) Baso # (Auto) Sodium Potassium Chloride Carbon Dioxide BUN Creatinine Estimated GFR BUN/Creatinine Ratio Glucose Lactate Calcium Magnesium Total Bilirubin AST ALT Alkaline Phosphatase Ammonia < 9 L Total Creatine Kinase CK-MB (CK-2) CK-MB (CK-2) Rel Index Troponin I Total Protein Albumin Globulin Albumin/Globulin Ratio Lipase Procalcitonin TSH 3.16 Urine Color Urine Appearance Urine pH Ur Specific [place] Urine Protein Urine Glucose (UA) Urine Ketones Urine Occult Blood Urine Nitrate Urine Bilirubin Urine Urobilinogen Ur Leukocyte Esterase Urine RBC Urine WBC Ur Squamous Epith Cells Amorphous Sediment Urine Bacteria Hyaline Casts Ur Culture Indicated? Salicylates U Opiates 300ng/mL cut Ur Oxycodone Screen Urine Methadone Screen Acetaminophen Ur Barbiturates Screen U Tricyclic Antidepress Ur Phencyclidine Scrn Ur Amphetamines Screen U Methamphetamines Scrn Ur MDMA Scrn (Ecstasy) U Benzodiazepines Scrn Urine Cocaine Screen U Marijuana (THC) Screen Ethyl Alcohol Ketones SARS-CoV-2 (PCR) Negative 05/12/22 05/12/22 22:30 22:30 WBC RBC Hgb Hct MCV MCH MCHC RDW Plt Count Neut % (Auto) Lymph % (Auto) [place] % (Auto) Eos % (Auto) Baso % (Auto) Neut # (Auto) Lymph # (Auto) [place] # (Auto) Eos # (Auto) Baso # (Auto) Sodium Potassium Chloride Carbon Dioxide BUN Creatinine Estimated GFR BUN/Creatinine Ratio Glucose Lactate Calcium Magnesium Total Bilirubin AST ALT Alkaline Phosphatase Ammonia Total Creatine Kinase CK-MB (CK-2) CK-MB (CK-2) Rel Index Troponin I Total Protein Albumin Globulin Albumin/Globulin Ratio Lipase Procalcitonin TSH Urine Color Yellow Urine Appearance Clear Urine pH 5.0 Ur Specific [place] 1.020 Urine Protein 2+ H Urine Glucose (UA) 2+ H Urine Ketones Negative Urine Occult Blood Trace-intact Urine Nitrate Negative Urine Bilirubin Negative Urine Urobilinogen 0.2 Ur Leukocyte Esterase Negative Urine RBC 0-1/hpf Urine WBC None seen Ur Squamous Epith Cells 0-1 /hpf Amorphous Sediment 1+ Urine Bacteria None seen Hyaline Casts 0-1/lpf Ur Culture Indicated? Culture not indicate Salicylates U Opiates 300ng/mL cut Negative Ur Oxycodone Screen Positive H Urine Methadone Screen Negative Acetaminophen Ur Barbiturates Screen Negative U Tricyclic Antidepress Negative Ur Phencyclidine Scrn Negative Ur Amphetamines Screen Negative U Methamphetamines Scrn Negative Ur MDMA Scrn (Ecstasy) Negative U Benzodiazepines Scrn Positive H Urine Cocaine Screen Negative U Marijuana (THC) Screen Positive H Ethyl Alcohol Ketones SARS-CoV-2 (PCR) Assessment & Plan Assessment & Plan narrative: Carlos Randlal is a 66-year-old male is at much higher risk for medical and surgical complications because of his hx of CA's, TIA's, Falls, Parkinson's, Lewy body dementia, CAD, COPD (no home 02), hypothyroidism, anxiety, pain management, GERD, depression, insulin-dependent type 2 diabetes, and hyperlipidemia. He presented to the ED after the family found the patient in his home with increased confusion failing outpatient management. This patient requires acute care inpatient hospital management for acute acidotic hypercapnic respiratory failure (pneumonia(viral vs. bacterial), encephalopathy, COPD exacerbation, ISA, and rhabdomyolysis. Patient does have an elevated white count with a left shift suggestive of a bacterial pneumonia, though procalcitonin and lactate are WNL. Demonstrates a moderate ISA and rhabdomyolysis, will continue to monitor for compartment syndrome, 3rd spacing, DIC, or CA. Patient's CK-MB was elevated, troponin was normal but elevated above baseline, will trend, with telemetry monitoring. Patient received vancomycin and Rocephin in ED, will hold further antibiotics at this time pending blood culture and sputum result, or elevation in other inflammatory markers. Gentle hydration for ISA, while monitoring pulmonary edema and 3rd spacing. I reviewed patient's home medications of Wellbutrin 300 mg q.day, Seroquel 25 mg q.h.s., Celexa 40 mg q.day, gabapentin 900 mg b.i.d., lorazepam 1 mg b.i.d., Robaxin 500 mg t.i.d., and oxycodone 5 mg Q 4-6 hours, UDS was positive for marijuana, benzodiazepines, and oxycodone. Upon admit patient appears to be significantly over sedated which is impacting his oxygenation and contributing to the acute respiratory failure. I am concerned that his medication regimen in addition to marijuana is contributing to his dementia, confusion and Parkinson's. The patient's son reports the patient moved into his own apartment, it is unclear if any in-home healthcare providers oversee medication management. These factors increase the difficulty and complexity of medical and surgical interventions and increases the chances of poor outcomes such as morbidity and mortality. 1. Acute acidotic hypercapnic respiratory failure, due to pneumonia (Viral vs. Bacterial), in the setting of COPD exacerbation, acute on chronic, present on admission -patient does not require home O2, O2 sat% in ED on rm air 80s-currently upon admit O2 saturation 95% on 4 L nasal cannula, febrile 101 -WBC 13.4, neutrophils 11,100, lactate and procalcitonin WNL, blood cultures pending. -respiratory consult: DuoNeb q.4 hours while awake, incentive spirometry, sputum culture, prednisone 40 mg q.day x5 -continue patient's inhalers Atrovent, QVAR, albuterol -repeat ABGs every other day if not improving. -monitor patient for pulmonary edema, fluid overload. 2. ISA and encephalopathy secondary to rhabdomyolysis, acute, present on admission -total creatinine kinase 1543, CK-MB 53.40, troponin 0.016 (11/30/2021: Troponin< 0.012) -I suspect most likely that it is a exacerbation result of the acute respiratory failure, rhabdomyolysis, pneumonia, ISA, coupled with over sedation from being over medicated, inappropriate medication management, in addition too recreational marijuana use. -Will order [employer] consult for community resource support- in-home medication management (as pt lives alone). -Recommend on D/C f/u appt with PCP for medication review. -I have reviewed Dr. Rutherford's chart notes. -repeat CMP, trend troponin, urine myoglobin, LDH, ESR, CRP-ordered -gentle rehydration NS at 60cc/hr -monitored on telemedicine 3. Insulin-dependent type 2 diabetes, controlled, chronic, with neuropathy, chronic, as a result of borderline hyperlipidemia, chronic, present on admission -patient admitted under diabetes protocol. -A1C ordered -continue Lantus 80U BID, -Holding gabapentin- due to over sedation -high dose insulin sliding scale with blood sugar checks ACHS -low-carbohydrate diet -ketones pending-not in DKA, no gap. 4. Parkinson's disease, chronic, present on admission. -No current Sinemet or other treatments 5. Lewy Body Dementia, chronic, without behavioral disturbance, present on admission.? -Continue Seroquel -Concerned as to medication management with marijuana use. 6. CAD, chronic, with borderline hyperlipidemia, chronic, present on admission -continue plavix, Atorvastatin. 7. Hypothyroidism, acquired, chronic, present on admission -Continue Levothyroxine 8. Depression with anxiety, chronic, present on admission -Will Hold due to over-sedation: Wellbutrin 300 mg q.h.s., lorazepam 1 mg BID PRN, Celexa 40mg QD 9. Chronic pain management, chronic, present on admission -Holding due to over sedation: oxycodone 5 mg as needed Q 4-6 hours, Robaxin 500 mg t.i.d. 10. GERD, chronic, present on admission -continue omeprazole Code status:Full Surrogate decision maker: IZABELLA SHARP PCR:Negative DVT/VTE prophylaxis: SCDs Lovenox 30 Disposition: Patient admitted for pneumonia, acute acidotic hypercapnic respiratory failure, rhabdomyolysis, COPD exacerbation and ISA expected length of stay greater than 2 midnights. I have utilized all available immediate resources to obtain, update, or review the patient's current medications. I confirmed that the patient's advanced care plan is present, Code status is documented and/or surrogate decision maker is listed in the patient's medical record. Time Spent With Patient Critical Care time: I spent a total of [] minutes of critical care time on this patient's care today; this time is exclusive of procedural time. Scores GCS Lester coma scale eye opening: To sound Lester coma scale verbal response: Orientated Elia coma scale motor response: Localising Lester coma scale total score: 13 Quality VTE Deep Vein Thrombosis/Pulmonary Embolism Present on Admission: No
[2022-05-13] MEDS: SODIUM CHLORIDE 0.9% 1,000 ML 60 ML IV ×2 (00:13→09:40)
[2022-05-13 00:16] LABS: C-Reactive Protein Quant 5.5 mg/dL (<1.0); Lactate Dehydrogenase 779 U/L (313-618)
[2022-05-13 00:22] LABS: NT-proBNP (BNP-Adult 18+) 63 pg/mL (<125)
[2022-05-13 00:30] LABS: Erythrocyte Sedimentation Rate 59 MM/HR (0-15)
[2022-05-13 03:30] LABS: Troponin I 0.022 ng/mL (0.01-0.034)
[2022-05-13] MEDS: LEVOTHYROXINE 125 MCG TABLET PO (05:41)
[2022-05-13 05:49] LABS: Add Manual Diff / Slide Review NO; Basophils Absolute Auto 0 /uL (0-100); Eosinophils Absolute Auto 0 /uL (0-450); Eosinophils Percent Auto 0.4 % (2-4); Hematocrit 37.3 % (41-53); Hemoglobin 12.8 g/dL (13.5-17.5); Lymphocytes Absolute Auto 1100 /uL (1100-4500); Lymphocytes Percent Auto 9.9 % (25-40); Mean Corpuscular HGB Conc 34.2 % (30-36); Mean Corpuscular Hemoglobin 30.6 PG (26-34); Mean Corpuscular Volume 89.3 fL (80-100); Monocytes Absolute Auto 800 /uL (0-900); Neutrophils Absolute Auto 9500 /uL (1500-7000); Neutrophils Percent Auto 82.7 % (50-75); Platelet Count 179 X10^3/uL (150-400); Red Blood Cell Count 4.18 X10^6/uL (4.5-5.9); Red Cell Distribution Width 14.7 % (11.6-14.8); White Blood Cell Count 11.5 X10^3/uL (4.5-11.0)
[2022-05-13 06:02] LABS: Alanine Aminotransferase 47 IU/L (<50); Albumin 3.5 g/dL (3.5-5.0); Albumin Globulin Ratio 1.1 (1.0-2.8); Alkaline Phosphatase 68 U/L (38-126); Aspartate Aminotransferase 95 IU/L (17-59); BUN Creatinine Ratio 13.5 (6-22); Bilirubin Total 0.5 mg/dL (0.2-1.3); Blood Urea Nitrogen 17 mg/dL (9-20); Calcium 7.8 mg/dL (8.4-10.2); Carbon Dioxide 25 mmol/L (22-32); Chloride 105 mmol/L (98-107); Estimated Glomerular Filt Rate > 60 mL/min (>60); Globulin 3.1 g/dL (1.7-4.1); Glucose 62 mg/dL (80-110); HEMOLYSIS < 15 (0-50); Potassium 3.9 mmol/L (3.4-5.1); Sodium 134 mmol/L (137-145); Total Protein 6.6 g/dL (6.3-8.2)
[2022-05-13 06:16] LABS: Hemoglobin A1C% w Est Avg Glu 12.2 % (4.0-6.0)
[2022-05-13 06:45] LABS: Fractionated Inspired Oxygen 24; HCO3 ABG 26 mmol/L (22-26); Oxygen Saturation ABG 97 % (95-100); PCO2 ABG 53.6 mmHg (35-45); PO2 ABG 104 mmHg (80-100); TCO2 ABG 28 mmol/L (21-31)
--- NOTE | 2022-05-13 06:48 | PC.NURSE ---
Pt lab showing BG of 62, given applesauce 3 oz, apple juice 4 oz, pudding cup, and string cheese. Will recheck BG in 15 minutes.
[2022-05-13] MEDS: ACETAMINOPHEN 325 MG TABLET 975 MG PO (06:53)
[2022-05-13] MEDS: BUDESONIDE 0.5 MG/2 ML NEB INH ×2 (07:33→19:07)
[2022-05-13] MEDS: CLOPIDOGREL 75 MG TABLET PO (09:19)
[2022-05-13] MEDS: ATORVASTATIN 20 MG TABLET 80 MG PO (09:19)
[2022-05-13] MEDS: AZITHROMYCIN 500 MG in DEXTROSE 5% IN WATER 250 ML 250 MG IV (09:19)
[2022-05-13] MEDS: PANTOPRAZOLE DR 20 MG TABLET PO (09:19)
[2022-05-13] MEDS: predniSONE 20 MG TABLET 40 MG PO (09:19)
[2022-05-13] MEDS: INSULIN GLARGINE 100 UNIT/ML 3ML PEN 50 UNIT SUBCUT (09:22)
[2022-05-13] MEDS: INSULIN LISPRO 100 UNIT/ML 3ML VIAL SUBCUT ×4 (09:29→22:30)
[2022-05-13] MEDS: ENOXAPARIN 30 MG/0.3 ML SYRINGE SUBCUT (09:32)
--- NOTE | 2022-05-13 09:48 | OT.IP.EVAL ---
Past Medical History (Last Reviewed 05/13/22 @ 04:47 by Neri Burt DO) Bilateral otitis externa Borderline hyperlipidemia Cellulitis Chicken pox (1956) Chickenpox (1956) Chronic cough COPD (chronic obstructive pulmonary disease) Coronary artery disease (2006) Depression (2008) Diabetes (1994) Eczema Foot pain GERD (gastroesophageal reflux disease) (2012) Gout Hearing reduced Hip pain History of recurrent TIAs Hyperlipidemia Hypertension Hypothyroidism Kidney disease (2009) Measles (1955) Measles (1955) Mental health assessment declined Mumps (1958) Mumps (1958) Neuropathy Obstructive sleep apnea Otitis externa Screening for malignant neoplasm of colon Shoulder pain Sleep apnea Status post myocardial infarction Steatosis Strain of muscle of right groin region (03/30/18) Type 2 diabetes mellitus Well adult exam Surgical History (Last Reviewed 05/13/22 @ 00:36 by Parris Neumann, [employer]-) Anesthesia History of heart artery stent (2006) History of heart artery stent (2010) Hx of shoulder surgery (2005) Occupational Therapy Inpatient Evaluation/Re-Eval M1 PT/OT-IP Prior Functional Status Start: 05/13/22 12:23 Freq: NEEDED Status: Active Protocol: Document 05/13/22 13:24 [facility] (Rec: 05/13/22 13:40 [facility] [id number]) Medical Review Prior Functional Status Medical History Reviewed Yes Communication able to make needs known Mobility and Gait pt stated that he has not been walking and has been w/c bound. able to self transfer using a 4WW. pt stated that he does not walk due to safety reasons and does not want to fall Activities of Daily Living and IADL's Pt states able to do his ADL and grand daughter assist with his medications, daughter in law assists for shopping, and has someone assist him with cleaning needs 1x/week. Social History Household Members none Living Arrangements House Number of Floors (Floors) One Floor Number of Stairs To Enter/Railing? no steps to enter Home Environment Standard Height Toilet,Tub/ Shower Home Equipment Front Wheel Walker,Four Wheel Walker,Straight Cane,Manual Wheelchair,Power Wheelchair/ Scooter,Tub Transfer Bench, Hand Held Shower,Grab Bars Near Toilet,Grab Bars In Shower Additional Social History Comment pt lives alone; family checks in on pt has a caregiver that comes in once a week for ~ 4 hours to assist with house chores sleeps on a recliner M2 OT-IP Current Condition Start: 05/13/22 13:24 Freq: Status: Active Protocol: Document 05/13/22 13:24 [facility] (Rec: 05/13/22 13:40 [facility] [id number]) Occupational Therapy Current Condition Current Condition Evaluation Date 05/13/22 Treatment Diagnosis PNA, generalized weakness Diagnosis Onset Date 05/12/22 M3 OT- IP Subjective and Pain Start: 05/13/22 13:24 Freq: Status: Active Protocol: Document 05/13/22 13:24 [facility] (Rec: 05/13/22 13:40 [facility] [id number]) OT- Subjective Occupational Therapy Visit Type Type Initial Evaluation Visit Start Time 09:08 Visit Stop Time 09:48 Total Visit Minutes 40 Occupational Therapy Visit Comments Patient Comments Pt sitting on the BSC when OT came in to see pt. Patient/Caregiver Goals To get better. OT Pain Assessment Pain When Pain Assessed At Rest Pain Present Pain Present Pain Reported Location Neck Pain Behaviors Calling Out,Facial Grimacing, Holding Area M4 OT- IP ADL's Start: 05/13/22 13:24 Freq: Status: Active Protocol: Document 05/13/22 13:24 [facility] (Rec: 05/13/22 13:40 [facility] [id number]) OT [id number] Comments OT Self-Feeding Comments Pt states able to let his nursing know to get larger handled utensils for him to use due to his neuropathy. OT ADL-Grooming General Evaluation Grooming Ability Standby Assistance Areas Needing Assistance Retrieving/Set-up of Grooming Items Comments OT Grooming Comments Able to do while seated. OT ADL-Oral Care General Eval Oral Care Ability Standby Assistance Areas of Assistance Retrieving/Set-Up of Items Comments Oral Care Comments while seated OT ADL-Dressing General Eval Lower Body Dressing Ability Maximum Assistance Areas Needing Assistance Socks OT ADL-Toileting General Evaluation Toileting Ability Moderate Assistance Areas Needing Assistance Perform Perineal Hygiene Comments OT Toileting Comments One person assist to stand to FWW while another assist for hygiene needs. OT ADL-Bathing Comments OT Bathing Comments NOt performed. M5 OT- IP IADL's Start: 05/13/22 13:24 Freq: Status: Active Protocol: Document 05/13/22 13:24 [facility] (Rec: 05/13/22 13:40 [facility] [id number]) OT-Instrumental Activities of Daily Living Home Safety Awareness Awareness of Need for Assistance at Home Good Awareness Ability to Problem Solve Emergency Able to Problem Solve Situations Medication Management Medication Management Caregiver Provides Supervision Medication Management Comments Pt's grand daughter assist with medication set-up, however pt admit at times still forgets to take his medications. Money Management Money Management Comments Pt states does on his own. M6 OT- IP Functional Cognition Start: 05/13/22 13:24 Freq: Status: Active Protocol: Document 05/13/22 13:24 [facility] (Rec: 05/13/22 13:40 [facility] [id number]) Cognitive Factors Limiting Selfcare Function Cognitive Ability Level of Alertness Alert Patient Orientation Name,Place,Situation Attention Span Ability Capable of Focused Attention, Capable of Sustained Attention Ability to Follow Commands Able to Follow One Step Commands with Increased Time, Able to Follow One Step Commands with Repetition Memory Description Short Term Impaired Cognitive Comments Cognitive Assessment Comments Pt has decreased short term memory and asking the same question over 5 times. Pt is also [place] which at times make it difficult for him. OT- Vision and Hearing OT- Hearing Assessment OT- Hearing Assessment Hearing Impaired OT- Vision Assessment Visual Acuity Glasses For Reading M7 OT- IP Mobility and Balance Start: 05/13/22 13:24 Freq: Status: Active Protocol: Document 05/13/22 13:24 [facility] (Rec: 05/13/22 13:40 [facility] [id number]) OT- Bed Mobility Assessment Sit to Supine Sit to Supine Assist Moderate Assistance OT-Transfer Assessment Sit to and From Stand Sit to and from Stand Moderate Assistance Transfers Transfer Ability Moderate Assistance Technique Transfer Destination Bed,Bedside Commode Devices Transfer Assistive Devices Gait Belt,Front Wheeled Walker Comments Mobility Comments MODA to stand and pt having difficulty to lean forwards on his feet. Pt needing assist for his balance and to help guide the FWW for the transfer . Pt states has neuropathy on his feet which makes it more difficulty for his balance. OT- Balance Assessment Sitting Balance and Reactions Static Sitting Balance Ability Good Dynamic Sitting Balance Ability Fair Standing Balance and Reactions Static Standing Balance Ability Poor Dynamic Standing Balance Ability Poor M8 OT- IP Objective Assessments Start: 05/13/22 13:24 Freq: Status: Active Protocol: Document 05/13/22 13:24 [facility] (Rec: 05/13/22 13:40 [facility] [id number]) OT Gross Range of Motion Upper Extremity Range of Motion Assessment Left Impaired ROM Impairments left UE decreased at end ROM due to pain. OT Strength Comments Strength Comments From elbow to distal WFL. OT- Coordination Assessment Upper Extremity Finger to Nose Test Bilateral UE Impaired Comments Coordination Comments Unable to touch his 5th digit to thumb into opposition with left hand. OT-Muscle Tone Assessment Comments Muscle Tone Comments Pt has tremors at times. OT Sensation Assessment Comments Summary Comments Intact for light touch. M9 OT- IP Assessment and Plan Start: 05/13/22 13:24 Freq: Status: Active Protocol: Document 05/13/22 13:24 [facility] (Rec: 05/13/22 13:40 [facility] [id number]) OT Summary Assessment and Plan Potential Rehabilitation Potential Good Analytic Complexity at Evaluation Moderate Summary OT Impairments Pain,Range of Motion,Strength, Balance,Functional Cognition, Functional Mobility,Self- Feeding,Grooming,Dressing, Toileting,Bathing,Toilet Transfers,Shower Transfers, Activity Tolerance Progress Towards Goals Slow Progress due to Pain,Slow Progress due to Medical Issues,Slow Progress due to Activity Tolerance,Slow Progress due to Cognition Assessment Summary Pt MOD complexity and main barriers are decreased balance , strength, and now needing assist for ADl and mobility needs. Due to pt's history of Dementia, pt has poor short term memory and will benefit if going home 24/ 7 assist and home health. Otherwise pt will benefit from skilled rehab to help maximize his safety and independence with his ADl and mobility needs. Goals Grooming Goal Independent Dressing Goal Standby Assistance Toileting Goal Standby Assistance Bathing Goal Standby Assistance Toilet Transfer Goal Independent Shower Transfer Goal Independent Days to Meet Goals 15 Frequency of Treatment Frequency Of Treatment Once a Day Treatment Plan OT Treatment Plan ADL Training,Functional Cognition Training,Functional Mobility,Patient/Family Education,Discharge Planning Other Treatment Recommendations and Next LB dressing Treatment Focus Discharge Recommendations OT Discharge Recommendations Home with 24/7 Assist Available,Home Health,SNF Rehab,Home vs SNF Transportation Needs at Discharge Wheelchair/Cabulance
--- NOTE | 2022-05-13 10:23 | PT.IIE ---
Surgical History (Last Reviewed 05/13/22 @ 00:36 by Parris Neumann, [facility]) Anesthesia History of heart artery stent (2006) History of heart artery stent (2010) Hx of shoulder surgery (2005) Medical History (Last Reviewed 05/13/22 @ 04:47 by Neri Burt DO) Bilateral otitis externa Borderline hyperlipidemia Cellulitis Chicken pox (1956) Chickenpox (1956) Chronic cough COPD (chronic obstructive pulmonary disease) Coronary artery disease (2006) Depression (2008) Diabetes (1994) Eczema Foot pain GERD (gastroesophageal reflux disease) (2012) Gout Hearing reduced Hip pain History of recurrent TIAs Hyperlipidemia Hypertension Hypothyroidism Kidney disease (2009) Measles (1955) Measles (1955) Mental health assessment declined Mumps (1958) Mumps (1958) Neuropathy Obstructive sleep apnea Otitis externa Screening for malignant neoplasm of colon Shoulder pain Sleep apnea Status post myocardial infarction Steatosis Strain of muscle of right groin region (03/30/18) Type 2 diabetes mellitus Well adult exam Physical Therapy Inpatient Evaluation/Re-Eval M1 PT/OT-IP Prior Functional Status Start: 05/13/22 12:23 Freq: NEEDED Status: Active Protocol: Document 05/13/22 10:23 AB (Rec: 05/13/22 13:18 AB [id number]) Medical Review Prior Functional Status Medical History Reviewed Yes Communication able to make needs known Mobility and Gait pt stated that he has not been walking and has been w/c bound. able to self transfer using a 4WW. pt stated that he does not walk due to safety reasons and does not want to fall Social History Household Members none Living Arrangements House Number of Floors (Floors) One Floor Number of Stairs To Enter/Railing? no steps to enter Home Environment Standard Height Toilet,Tub/ Shower Home Equipment Front Wheel Walker,Four Wheel Walker,Straight Cane,Manual Wheelchair,Power Wheelchair/ Scooter,Tub Transfer Bench, Hand Held Shower,Grab Bars Near Toilet,Grab Bars In Shower Additional Social History Comment pt lives alone; family checks in on pt has a caregiver that comes in once a week for ~ 4 hours to assist with house chores sleeps on a recliner M2 PT-IP Current Condition Start: 05/13/22 12:23 Freq: NEEDED Status: Active Protocol: Document 05/13/22 10:23 AB (Rec: 05/13/22 13:18 AB [id number]) Physical Therapy Current Condition Current Condition Evaluation Date 05/13/22 Treatment Diagnosis PNA; rhabdomyolysis; generalized weakness Onset Date 05/12/22 M3 PT-IP Subjective Start: 05/13/22 12:23 Freq: NEEDED Status: Active Protocol: Document 05/13/22 10:23 AB (Rec: 05/13/22 13:18 AB [id number]) Subjective Physical Therapy Visit Type Type Initial Evaluation Visit Start Time 10:23 Visit Stop Time 10:51 Total Visit Minutes 28 Number of CONTACT LENS TECHNICIAN Visits 0 Physical Therapy Visit Comments Patient Comments agreeable to do PT Therapy Pain Assessment Pain When Pain Assessed At Rest Pain Present Pain Present Pain Reported Location Neck Intensity 6 Scale Used Numeric (0 - 10) Pain Management Techniques Apply Cold,Distraction, Modification of Treatment,Re- positioning,Timing of Activity with Medications M4 PT-IP Mobility and Gait Start: 05/13/22 12:23 Freq: NEEDED Status: Active Protocol: Document 05/13/22 10:23 AB (Rec: 05/13/22 13:18 [id number]) PT-Bed Mobility Assessment Supine to Sit Supine to Sit Minimal Assistance Sit to Supine Sit to Supine Minimal Assistance PT-Transfer Assessment Sit to and From Stand Sit to and from Stand Moderate Assistance,1 Person Assistance,Use of Upper Extremities Equipment Transfer Assistive Device Front Wheeled Walker Orthotic/Prosthetic Devices or Brace: No Transfers Transfer Destination Chair Transfer Technique Stand Step Pivot Transfer Ability Level of Assist Moderate Assistance,1 Person Assistance,Use of Upper Extremities Comments Mobility Comments completed supine to sit min A and cues. able to sit on EOB SBA to CGA. completed sit to stand mod A and cues. increase posterior LOB. cued to use FWW and move lean forward. completed step transfer to chair mod A and cues. unsteady shaky movement and mod A for balance using fWW. completed sit to stand mod A. educated on standing balance and steadiiness. continues to have posteror LOB. educated on increase COG awareness. pt sat back on chair. positioned on chair. agreed to sit up on chair. call light and table placed within reach. PT-Balance Assessment Sitting Balance and Reactions Static Sitting Balance Ability Good Dynamic Sitting Balance Ability Fair Standing Balance and Reactions Static Standing Balance Ability Poor Dynamic Standing Balance Ability Poor Device Used FWW M5 PT-IP Objective Assessments Start: 05/13/22 12:23 Freq: NEEDED Status: Active Protocol: Document 05/13/22 10:23 AB (Rec: 05/13/22 13:18 AB [id number]) Orientation Orientation/Cognition Level of Alertness Alert Orientation Name,Place,Situation Safety Awareness Decreased Safety Awareness Memory Description Short Term Impaired Gross Range of Motion Lower Extremity ROM Assessment Within Functional Limits Strength Lower Extremity Strength Assessment Bilaterally Impaired Hip 3+/5 Knee 3+/5 Sensation Assessment Sensation Gross Sensation Right LE Impaired,Left LE Impaired Sensation Description Numbness Comments Sensation Comments neuropathy on BLE from knees down to B feet Muscle Tone Muscle Tone WNL Yes M6 PT-IP Treatment Start: 05/13/22 12:23 Freq: NEEDED Status: Active Protocol: Document 05/13/22 10:23 AB (Rec: 05/13/22 13:18 AB [id number]) Physical Therapy Treatment Education Education Provided Safety M7 PT-IP Assessment and Plan Start: 05/13/22 12:23 Freq: NEEDED Status: Active Protocol: Document 05/13/22 10:23 AB (Rec: 05/13/22 13:18 AB [id number]) PT Summary Assessment and Plan Potential Rehabilitation Potential Fair Status of Condition at Evaluation Evolving Summary Impairments Pain,ROM,Strength,Balance, Coordination,Sensation,Tone, Cognition,Bed Mobility, Transfers,Gait,Activity Tolerance Assessment Summary pt requirng mod A for transfers. Pt have decrease mobility prior to admission and has been w/c bound but able to self transfer with 4WW prior to admission. pt lives alone and will require 24/7 assistance at this time vs SNF rehab. will continue to assess progress. Goals Bed Mobility Goal Independent Transfer Goal Independent Other Goals improve transfers using 4WW mod I Days to Meet Goals 10 Frequency of Treatment Frequency Of Treatment Once a Day Treatment Plan Physical Therapy Treatment Plan Bed Mobility Training,Transfer Training,Gait Training, Therapeutic Exercise,Balance Retraining,Discharge Planning, Hot or Cold Pack,Neuromuscular Re-ed,Coordination Retraining ,Manual Therapy Precautions Other Precautions falls Recommendations To Nursing Amount of Assist Needed 1 Person Assist Discharge Recommendations PT Discharge Recommendations Home with 24/7 Assist Available,Home Health,SNF Rehab,Home vs SNF Transportation Needs at Discharge Private Vehicle,Wheelchair/ Cabulance
[2022-05-13 10:50] LABS: Troponin I 0.021 ng/mL (0.01-0.034)
[2022-05-13 10:54] LABS: Creatine Kinase 3965 U/L (55-170)
[2022-05-13] MEDS: LIDOCAINE PATCH 1 EACH ADH..PATCH TOP (13:47)
--- NOTE | 2022-05-13 13:51 | CM.DANOTE ---
Discharge Planning/Care Management Advanced directive, confirm from FAMILY Start: 05/13/22 00:05 Freq: Q24H Status: Active Protocol: Document 05/13/22 00:05 CS (Rec: 05/13/22 05:25 CS [id number]) Advance Directive, confirm on record Time 05:25 Person contacted pt Copy received No CM Discharge Assessment Start: 05/13/22 13:39 Freq: Status: Active Protocol: Document 05/13/22 13:40 SJ (Rec: 05/13/22 13:51 [facility] [id number]) Discharge Planning Assessment Assigned Manager Medical Writing Dariana Mead RN/DCP Advance Directives? No Advance Directives on File No History Provided By Patient Prior Living Arrangements Apartment/Condo Household Members none Type of transporation used prior to Relies on Others admit Independent with ADL's Yes Is patient alert and oriented? Yes Needs Assistance With Managing Medications,Home Chores / Shopping Caregiver for Another No DME Already Rented / Owned Bath Bench,Wheelchair,FWW / Walker Comment Patient also with motorized wheelchair. Patient states he manages his ADLs. However, his nurse today reports otherwise that he is weak and requires assistance with all ADLs. Patient/Family Preference Home with Home Health Comment Pending outcome of hospitalization. Discharge Plan Home with Home Health Transportation Arrangement Family can provide transport. Additional Comment HH vs SNF depending upon ability to resume living home alone or not. If patient plan is home with home health No: He has been on [facility] in : Has signed face to face form been the past. completed? Review Status In Process Next Review Type Continued Stay Review
--- NOTE | 2022-05-13 13:52 | CM.DANOTE ---
Initial Discharge Planning Note: Case received, EMR reviewed. Met with patient in his room. Payer: [facility] Medicare and Medicaid PCP: Gasper Rutherford 66 year old admitted last evening via ambulance with weakness, respiratory difficulty. Patient has multiple co-morbidities including LB dementia, Parkinsons, DM2, CAD, COPD, depression. Diagnoses Pneumonia and respiratory failure. Patient lives alone in an apartment in [place]. His son and grandaughter help manage his needs. His son works nights and this DCP unable to get a hold of him today, but left message. Patient tells me that he manages his ADLs by himself at home. He is wheelchair bound and transfers self to toilet and bath bench and prepares his frozen meals as well as receives meals on wheels. His nurse today reports that he needs help in all ADLs and is very weak. P: When he returns to his baseline, we can assess his discharge needs: Home with HH vs SNF placement. J Discharge Planning/Care Management Advanced directive, confirm from FAMILY Start: 05/13/22 00:05 Freq: Q24H Status: Active Protocol: Document 05/13/22 00:05 CS (Rec: 05/13/22 05:25 CS [id number]) Advance Directive, confirm on record Time 05:25 Person contacted pt Copy received No CM Discharge Assessment Start: 05/13/22 13:39 Freq: Status: Active Protocol: Document 05/13/22 13:40 (Rec: 05/13/22 13:51 [id number]) Discharge Planning Assessment Assigned Carpenter Mold Dariana Mead RN/DCP Advance Directives? No Advance Directives on File No History Provided By Patient Prior Living Arrangements Apartment/Condo Household Members none Type of transporation used prior to Relies on Others admit Independent with ADL's Yes Is patient alert and oriented? Yes Needs Assistance With Managing Medications,Home Chores / Shopping Caregiver for Another No DME Already Rented / Owned Bath Bench,Wheelchair,FWW / Walker Comment Patient also with motorized wheelchair. Patient states he manages his ADLs. However, his nurse today reports otherwise that he is weak and requires assistance with all ADLs. Patient/Family Preference Home with Home Health Comment Pending outcome of hospitalization. Discharge Plan Home with Home Health Transportation Arrangement Family can provide transport. Additional Comment HH vs SNF depending upon ability to resume living home alone or not. If patient plan is home with home health No: He has been on [facility] in : Has signed face to face form been the past. completed? Review Status In Process Next Review Type Continued Stay Review
--- NOTE | 2022-05-13 15:16 | DIET.CONS2 ---
Dietary Inpatient Consultation Note Admission Date: 05/12/2022 23:08 66y M admitted for weakness referred to nutrition for high A1c (12.2). In rounds this am, pt deemed not suitable for DM education at this time secondary to confusion and LB dementia. Pt lives in apartment alone, wheelchair bound. Consumes frozen meals or Meals on Wheels. Some assistance from family nearby, but pt has managed all ADLs. Pts A1c history goes back to 2013 in our system showing consistent high A1c >8 with most values in 9-11 range. Lowest A1c was from one year ago, 7.8. A1c from this admission highest on record. RD following if pt becomes appropriate for education. If not, recc closer medication management assistance at home. Diet: 05/12/22 Breakfast Carbohydrate Consistent Diet Diet Modifications: Carbohydrate level: Small (2 CHO) Bedtime snack: Yes Nutrition Percent Meal Consumed 100% 05/13/22 09:45 Electronically Signed by: Kimberli Snyder 05/13/22 15:16 Clinical Dietitian [address] [address]
[2022-05-13] MEDS: ALBUTEROL/IPRATROPIUM 3 ML AMPUL INH (19:07)
--- NOTE | 2022-05-13 19:43 | PC.NURSE ---
mentation improved thru the day, still has moments of confusion, poor safety awareness. 1pa mobility, assist w/ toileting. good appetite, high dose SSI. continues w/ IVF, NS at 125/hour. chair/bed alarm for safety, call light w/in reach. call from daughter in law: patient gave verbal consent for update to be given by this RN. call later on from son Cy, patient gave verbal consent for update to be given. above mentioned family members' phone numbers given to NOC nurse.
[2022-05-13] MEDS: QUETIAPINE 25 MG TABLET PO (21:24)
[2022-05-13] MEDS: cefTRIAXone 1,000 MG in SODIUM CHLORIDE 0.9% 100 ML 200 MG IV (21:31)
[2022-05-14 03:00] VITALS: BP 145/69; PULSE 83; RESP 17; TEMP 36.7; O2SAT 95
[2022-05-14 06:35] LABS: Add Manual Diff / Slide Review NO; Basophils Absolute Auto 0 /uL (0-100); Eosinophils Absolute Auto 0 /uL (0-450); Eosinophils Percent Auto 0.4 % (2-4); Hematocrit 35.5 % (41-53); Hemoglobin 12.5 g/dL (13.5-17.5); Lymphocytes Absolute Auto 1500 /uL (1100-4500); Lymphocytes Percent Auto 14.7 % (25-40); Mean Corpuscular HGB Conc 35.4 % (30-36); Mean Corpuscular Hemoglobin 31.1 PG (26-34); Mean Corpuscular Volume 88.1 fL (80-100); Monocytes Absolute Auto 700 /uL (0-900); Monocytes Percent Auto 7.4 % (3-14); Neutrophils Absolute Auto 7700 /uL (1500-7000); Neutrophils Percent Auto 77.5 % (50-75); Platelet Count 181 X10^3/uL (150-400); Red Blood Cell Count 4.03 X10^6/uL (4.5-5.9); Red Cell Distribution Width 14.2 % (11.6-14.8); White Blood Cell Count 9.9 X10^3/uL (4.5-11.0)
[2022-05-14] MEDS: LEVOTHYROXINE 125 MCG TABLET PO (06:42)
[2022-05-14 06:52] LABS: Alanine Aminotransferase 54 IU/L (<50); Albumin 3.4 g/dL (3.5-5.0); Albumin Globulin Ratio 1.1 (1.0-2.8); Alkaline Phosphatase 77 U/L (38-126); Aspartate Aminotransferase 85 IU/L (17-59); BUN Creatinine Ratio 24.7 (6-22); Bilirubin Total 0.4 mg/dL (0.2-1.3); Blood Urea Nitrogen 19 mg/dL (9-20); Calcium 8.4 mg/dL (8.4-10.2); Carbon Dioxide 27 mmol/L (22-32); Chloride 106 mmol/L (98-107); Estimated Glomerular Filt Rate > 60 mL/min (>60); Globulin 3.1 g/dL (1.7-4.1); Glucose 233 mg/dL (80-110); HEMOLYSIS < 15 (0-50); Potassium 3.8 mmol/L (3.4-5.1); Sodium 136 mmol/L (137-145); Total Protein 6.5 g/dL (6.3-8.2)
[2022-05-14 07:55] VITALS: BP 156/76; PULSE 78; RESP 18; TEMP 36.6; O2SAT 96
[2022-05-14] MEDS: BUDESONIDE 0.5 MG/2 ML NEB INH (08:54)
[2022-05-14] MEDS: ALBUTEROL 2.5 MG/3 ML NEB (ADULT) INH (08:54)
[2022-05-14] MEDS: AZITHROMYCIN 500 MG in DEXTROSE 5% IN WATER 250 ML 250 MG IV (09:00)
[2022-05-14] MEDS: ENOXAPARIN 30 MG/0.3 ML SYRINGE SUBCUT (09:00)
[2022-05-14] MEDS: predniSONE 20 MG TABLET 40 MG PO (09:01)
[2022-05-14] MEDS: ATORVASTATIN 20 MG TABLET 80 MG PO (09:01)
[2022-05-14] MEDS: LIDOCAINE PATCH 1 EACH ADH..PATCH TOP (09:01)
[2022-05-14] MEDS: CLOPIDOGREL 75 MG TABLET PO (09:01)
[2022-05-14] MEDS: PANTOPRAZOLE DR 20 MG TABLET PO (09:01)
[2022-05-14] MEDS: INSULIN LISPRO 100 UNIT/ML 3ML VIAL SUBCUT (09:15)
[2022-05-14] MEDS: INSULIN GLARGINE 100 UNIT/ML 3ML PEN 50 UNIT SUBCUT (09:15)
[2022-05-14 09:22] VITALS: O2SAT 95
--- NOTE | 2022-05-14 10:00 | PT.IPTN ---
Current Diagnoses Parkinson's disease (05/12/22) Physical Therapy Treatment Note M2 PT-IP Current Condition Start: 05/13/22 12:23 Freq: NEEDED Status: Active Protocol: Document 05/13/22 10:23 AB (Rec: 05/13/22 13:18 AB [id number]) Physical Therapy Current Condition Current Condition Evaluation Date 05/13/22 Treatment Diagnosis PNA; rhabdomyolysis; generalized weakness Onset Date 05/12/22 M3 PT-IP Subjective Start: 05/13/22 12:23 Freq: NEEDED Status: Active Protocol: Document 05/14/22 10:00 AB (Rec: 05/14/22 11:13 AB [email or web address]) Subjective Physical Therapy Visit Type Type Treatment Note Visit Start Time 10:00 Visit Stop Time 11:00 Total Visit Minutes 30 Notes pt seen for split visits: 1000 am to 1010 and 1040 am to 1100 Number of CONTRACTS MANAGER Visits 0 Physical Therapy Visit Comments Patient Comments agreeable to do PT M4 PT-IP Mobility and Gait Start: 05/13/22 12:23 Freq: NEEDED Status: Active Protocol: Document 05/14/22 10:00 AB (Rec: 05/14/22 11:13 AB [id number]) PT-Bed Mobility Assessment Supine to Sit Supine to Sit Minimal Assistance,Moderate Assistance,Bedrails Sit to Supine Sit to Supine Standby Assistance PT-Transfer Assessment Sit to and From Stand Sit to and from Stand Standby Assistance,Contact Guard Assistance,1 Person Assistance,Use of Upper Extremities Equipment Transfer Assistive Device Front Wheeled Walker,4 Wheeled Walker Orthotic/Prosthetic Devices or Brace: No Transfers Transfer Destination Bed,Chair,Bedside Commode Transfer Technique Stand Step Pivot Transfer Ability Level of Assist Standby Assistance,Contact Guard Assistance,1 Person Assistance,Use of Upper Extremities Comments Mobility Comments pt requesting to use the toilet. bedside commode positioned. pt completed supine to sit SBA using bed rail. pt sleeps on a recliner at home. completed sit to stand CGA and step transfer to bedside commode CGA and cues for safety using FWW. call light within reach. informed nurse that pt wants to sit on the bedside commode for a few minutes. checked back on pt and pt in bed. agreeable to do PT. completed supine to sit min to mod A. Transfer training conducted using 4WW. pt completed step transfer bed<> chair x 4 reps SBA using 4WW. pt requested to go back to bed and completed sit to supine SBA. call light and table placed within reach. M5 PT-IP Objective Assessments Start: 05/13/22 12:23 Freq: NEEDED Status: Active Protocol: Document 05/13/22 10:23 AB (Rec: 05/13/22 13:18 AB [id number]) Orientation Orientation/Cognition Level of Alertness Alert Orientation Name,Place,Situation Safety Awareness Decreased Safety Awareness Memory Description Short Term Impaired Gross Range of Motion Lower Extremity ROM Assessment Within Functional Limits Strength Lower Extremity Strength Assessment Bilaterally Impaired Hip 3+/5 Knee 3+/5 Sensation Assessment Sensation Gross Sensation Right LE Impaired,Left LE Impaired Sensation Description Numbness Comments Sensation Comments neuropathy on BLE from knees down to B feet Muscle Tone Muscle Tone WNL Yes M6 PT-IP Treatment Start: 05/13/22 12:23 Freq: NEEDED Status: Active Protocol: Document 05/14/22 10:00 AB (Rec: 05/14/22 11:13 AB [id number]) Physical Therapy Treatment Education Education Provided Safety M7 PT-IP Assessment and Plan Start: 05/13/22 12:23 Freq: NEEDED Status: Active Protocol: Document 05/14/22 10:00 AB (Rec: 05/14/22 11:13 AB [email or web address]) PT Summary Assessment and Plan Potential Rehabilitation Potential Fair Summary Impairments Pain,ROM,Strength,Balance, Coordination,Sensation,Tone, Cognition,Bed Mobility, Transfers,Gait,Activity Tolerance Progress Towards Goals Slow Progress due to Activity Tolerance Assessment Summary pt improving with mobility and able to step transfer using FWW/4WW SBA to CGA. pt lives alone and has family that lives ~ 10 min away from him per pt. pt at baseline is w/c bound but able to step transfer using 4WW. pt currently has assistance only ~ 4 hours on wednesdays only. pt may go home but will need more assistance at home and also will benefit from HHPT. will continue to assess progress. Goals Bed Mobility Goal Independent Transfer Goal Independent Other Goals improve transfers using 4WW mod I Days to Meet Goals 10 Frequency of Treatment Frequency Of Treatment Once a Day Treatment Plan Physical Therapy Treatment Plan Bed Mobility Training,Transfer Training,Gait Training, Therapeutic Exercise,Balance Retraining,Discharge Planning, Hot or Cold Pack,Neuromuscular Re-ed,Coordination Retraining ,Manual Therapy Precautions Other Precautions falls Recommendations To Nursing Amount of Assist Needed 1 Person Assist Discharge Recommendations PT Discharge Recommendations Home with Assistance,Home Health Transportation Needs at Discharge Private Vehicle,Wheelchair/ Cabulance
--- NOTE | 2022-05-14 12:08 | OT.IP.TRT ---
Current Diagnoses Parkinson's disease (05/12/22) Occupational Therapy Treatment Note M2 OT-IP Current Condition Start: 05/13/22 13:24 Freq: Status: Active Protocol: Document 05/13/22 13:24 [facility] (Rec: 05/13/22 13:40 [facility] [id number]) Occupational Therapy Current Condition Current Condition Evaluation Date 05/13/22 Treatment Diagnosis PNA, generalized weakness Diagnosis Onset Date 05/12/22 M3 OT- IP Subjective and Pain Start: 05/13/22 13:24 Freq: Status: Active Protocol: Document 05/14/22 12:34 [facility] (Rec: 05/14/22 12:49 [facility] [id number]) OT- Subjective Occupational Therapy Visit Type Type Treatment Note Visit Start Time 11:30 Visit Stop Time 12:08 Total Visit Minutes 38 Occupational Therapy Visit Comments Patient Comments Pt agreed to get up and work with OT, pt's son present at the end of the session. Patient/Caregiver Goals To go home. OT Pain Assessment Pain When Pain Assessed At Rest Pain Present Pain Present Denied Pain M4 OT- IP ADL's Start: 05/13/22 13:24 Freq: Status: Active Protocol: Document 05/14/22 12:34 [facility] (Rec: 05/14/22 12:49 [facility] [id number]) OT [id number] Comments OT Self-Feeding Comments set-up assist OT ADL-Grooming Comments OT Grooming Comments Not performed. OT ADL-Oral Care Comments Oral Care Comments Not performed. OT ADL-Dressing General Eval Lower Body Dressing Ability Minimal Assistance Comments OT Dressing Comments Pt having difficulty to put on pull up briefs as use to his underwear but does not have it here in the hospital. Pt needing assist for orientation and to assist to get the brief over his feet. Pt then able to use the grab bar to be able to pull up his brief. OT ADL-Toileting General Evaluation Toileting Ability Standby Assistance Comments OT Toileting Comments Pt able to wipe appropriately at this time. OT ADL-Bathing Comments OT Bathing Comments TO assess tomorrow if pt still here. M5 OT- IP IADL's Start: 05/13/22 13:24 Freq: Status: Active Protocol: Document 05/13/22 13:24 [facility] (Rec: 05/13/22 13:40 [facility] [id number]) OT-Instrumental Activities of Daily Living Home Safety Awareness Awareness of Need for Assistance at Home Good Awareness Ability to Problem Solve Emergency Able to Problem Solve Situations Medication Management Medication Management Caregiver Provides Supervision Medication Management Comments Pt's grand daughter assist with medication set-up, however pt admit at times still forgets to take his medications. Money Management Money Management Comments Pt states does on his own. M6 OT- IP Functional Cognition Start: 05/13/22 13:24 Freq: Status: Active Protocol: Document 05/14/22 12:34 [facility] (Rec: 05/14/22 12:49 [facility] [id number]) Cognitive Factors Limiting Selfcare Function Cognitive Ability Level of Alertness Alert Patient Orientation Name,Place,Situation Attention Span Ability Capable of Focused Attention, Capable of Sustained Attention Ability to Follow Commands Able to Follow One Step Commands Memory Description Short Term Impaired Cognitive Comments Cognitive Assessment Comments Pt still needing some safety reminders as set up is different from his place. Pt able to follow commands appropriately for ADl and mobility needs. M7 OT- IP Mobility and Balance Start: 05/13/22 13:24 Freq: Status: Active Protocol: Document 05/14/22 12:34 [facility] (Rec: 05/14/22 12:49 [facility] [id number]) OT- Bed Mobility Assessment Supine to Sit Supine to Sit Assist Standby Assistance OT-Transfer Assessment Sit to and From Stand Sit to and from Stand Standby Assistance Transfers Transfer Ability Standby Assistance,Contact Guard Assistance Technique Transfer Destination Bed,Chair,Toilet,Wheelchair Devices Transfer Assistive Devices Gait Belt,Front Wheeled Walker Comments Mobility Comments Pt needing close SBA with transfers with 4ww to the , and able to transfer with grab bars to the toilet with SBA. Transfer back to the recliner with 4ww occasional CGA. OT- Balance Assessment Sitting Balance and Reactions Static Sitting Balance Ability Normal Dynamic Sitting Balance Ability Good Standing Balance and Reactions Static Standing Balance Ability Fair Dynamic Standing Balance Ability Fair M8 OT- IP Objective Assessments Start: 05/13/22 13:24 Freq: Status: Active Protocol: Document 05/13/22 13:24 [facility] (Rec: 05/13/22 13:40 [facility] [id number]) OT Gross Range of Motion Upper Extremity Range of Motion Assessment Left Impaired ROM Impairments left UE decreased at end ROM due to pain. OT Strength Comments Strength Comments From elbow to distal WFL. OT- Coordination Assessment Upper Extremity Finger to Nose Test Bilateral UE Impaired Comments Coordination Comments Unable to tough hif 5th digut to thumb with left hand. OT-Muscle Tone Assessment Comments Muscle Tone Comments Pt has tremors at times. OT Sensation Assessment Comments Summary Comments Intact for light touch. M9 OT- IP Assessment and Plan Start: 05/13/22 13:24 Freq: Status: Active Protocol: Document 05/14/22 12:34 [facility] (Rec: 05/14/22 12:49 [facility] [id number]) OT Summary Assessment and Plan Potential Rehabilitation Potential Good Analytic Complexity at Evaluation Moderate Summary OT Impairments Pain,Range of Motion,Strength, Balance,Functional Cognition, Functional Mobility,Self- Feeding,Grooming,Dressing, Toileting,Bathing,Toilet Transfers,Shower Transfers, Activity Tolerance Progress Towards Goals Progressing Toward Goals Assessment Summary Pt moving better today and having better balance. Pt still needing DELFINA to help thread his feet into his pull up brief. Pt able to do his toileting needs with close SBA and heavy use of grab bar to assist for his balance. Pt feels that he is close to his baseline for needs. Pt still would initially benefit from 24/7 available assist versus short skilled rehab at this time as pt is a fall risk. To assess showering tomorrow if pt still here. Goals Grooming Goal Independent Dressing Goal Independent Toileting Goal Independent Bathing Goal Independent Toilet Transfer Goal Independent Shower Transfer Goal Independent Days to Meet Goals 10 Frequency of Treatment Frequency Of Treatment Once a Day Treatment Plan OT Treatment Plan ADL Training,Functional Cognition Training,Functional Mobility,Patient/Family Education,Discharge Planning Other Treatment Recommendations and Next shower Treatment Focus Discharge Recommendations OT Discharge Recommendations Home with 24/7 Assist Available,Home Health,SNF Rehab,Home vs SNF Transportation Needs at Discharge Wheelchair/Cabulance
--- NOTE | 2022-05-14 13:48 | CM.DPNOTE ---
Faxed referral to [facility] per Chasity. Laurie Luque CM Assist.
--- NOTE | 2022-05-14 13:58 | CM.DPNOTE ---
Discharge Planning Note: After multiple discussions with Dr Guadalupe, therapies, son Cy and patient it was decided that the plan of care is to return home with Home Health RN, PT/OT, POUND KEEPER, bath aide. As well, patient's son Cy's family will be available for help with the patient. A DPOA was created and signed by Dr Guadalupe, scanned into chart. [facility] can start early next week or sooner if cancellations. Explained this to patient and the son. P: Discharge back to home today. Son to provide transport. Dariana Mead RN/DCP
--- NOTE | 2022-05-14 17:12 | PC.NURSE ---
Discharge: Pt feels ready to d/c to home. Seen by PT and given instructions. Seen by MD and given instructions. No choking seen when eating. He did get his IV antibiotics this am. Vds w/out diff. Tolerates diet w/out problems. Had bm this am. Vds w/out diff. Reviewed discharge packet. Questions answered. Pt d/c to home via auto w/family.
[2022-05-14 21:04] LABS: Acinetobacter baumannii Not Detected (Not Detect); E. coli Not Detected (Not Detect); Enterobacter cloacae complex Not Detected (Not Detect); Enterobacteriaceae species Not Detected (Not Detect); Enterococcus species Not Detected (Not Detect); Haemophilus influenzae Not Detected (Not Detect); Listeria monocytogenes Not Detected (Not Detect); Methicillin-resistant gene Not Detected (Not Detect); Neisseria meningitidis Not Detected (Not Detect); Proteus species Not Detected (Not Detect); Pseudomonas aeruginosa Not Detected (Not Detect); Serratia marcescens Not Detected (Not Detect); Staphylococcus species Detected (Not Detect); Streptococcus agalactiae (Gr B Not Detected (Not Detect); Streptococcus pneumonia Not Detected (Not Detect); Streptococcus pyogenes (Gr A) Not Detected (Not Detect); Streptococcus species Not Detected (Not Detect)
[2022-05-14 21:05] LABS: Candida albicans Not Detected (Not Detect); Candida glabrata Not Detected (Not Detect); Candida krusei Not Detected (Not Detect); Candida parapsilosis Not Detected (Not Detect); Candida tropicalis Not Detected (Not Detect)
== END 2022-05-14 14:30 | disposition home health service (06) | DRG 177 ==
LOC: ED 22:21 → AC 23:09
PROVIDERS: Student in an Organized Health Care Education/Training Program; Admitting Provider Nurse Practitioner Family; Emergency Provider Emergency Medicine; PCP Family Medicine; Referring Provider Emergency Medicine; Visit Provider Nurse Practitioner Family
DX: J69.0 Pneumonitis due to inhalation of food and vomit (principal); J96.02 Acute respiratory failure with hypercapnia; J44.1 Chronic obstructive pulmonary disease with (acute) exacerbation; N17.9 Acute kidney failure, unspecified; M62.82 Rhabdomyolysis; G93.40 Encephalopathy, unspecified; G31.83 Neurocognitive disorder with Lewy bodies; F02.80 Dementia in other diseases classified elsewhere, unspecified severity, without behavioral disturbance, psychotic disturbance, mood disturbance, and anxiety; E11.40 Type 2 diabetes mellitus with diabetic neuropathy, unspecified; E78.5 Hyperlipidemia, unspecified; I25.10 Atherosclerotic heart disease of native coronary artery without angina pectoris; E03.9 Hypothyroidism, unspecified; K21.9 Gastro-esophageal reflux disease without esophagitis; G89.29 Other chronic pain; F32.A Depression, unspecified; F41.9 Anxiety disorder, unspecified; F17.210 Nicotine dependence, cigarettes, uncomplicated; Z79.4 Long term (current) use of insulin; Z95.5 Presence of coronary angioplasty implant and graft; Z20.822 Contact with and (suspected) exposure to COVID-19
CPT/HCPCS: 36415; 36600; 70450; 71045; 80053; 80305; 80320; 80329; 81001; 82009; 82140; 82550; 82553; 82805; 82962; 83036; 83605; 83615; 83690; 83735; 83880; 84145; 84443; 84484; 85025; 85651; 86140; 87040; 87086; 87150; 87635; 93005; 93010; 94640; 94762; 96365; 96368; 97162; 97166; 97530; 97535; 99284; 99285; C9803; G0480; J0696; J1650; J1815; J7613

== ENCOUNTER 2022-05-15 02:13 | Observation (INO) | payer MEDICARE, MEDICAID, SELFPAY ==
[2022-05-12 23:12] VITALS: BMI 30.9
[2022-05-15] VITALS (20 sets, daily range): BP systolic 150–180; BP diastolic 68–116; PULSE 65–82; RESP 9–32; TEMP 36.1–37.1; O2SAT 89–99; BMI 33.9
--- NOTE | 2022-05-15 02:59 | DI.RAD.S_ITS ---
PROCEDURE: XR CHEST 1V INDICATIONS: chest pain, recent pna TECHNIQUE: One view of the chest was acquired. COMPARISON: [facility], CR, XR CHEST 1V, 05/12/2022, 21:29. FINDINGS: Surgical changes and devices: None. Lungs and pleura: Mild appearance of bronchial wall thickening and coarsened interstitial markings. No pleural effusions or pneumothorax. Mediastinum: Mediastinal contours appear normal. Heart size is normal. Bones and chest wall: No suspicious bony lesions. Overlying soft tissues appear unremarkable. IMPRESSION: Mild appearance of bronchial wall thickening and coarsened interstitial markings, suggestive of viral pneumonia. The above findings are concordant with preliminary report. Dictated by: Viri Jacobsen M.D. on 05/15/2022 at 7:39 Approved by: Viri Jacobsen M.D. on 05/15/2022 at 7:40
--- NOTE | 2022-05-15 03:10 | ED_ITS ---
HPI - Chest Pain General Chief Complaint: Chest Pain Stated Complaint: Chest Pain/ hyperglycemic Time Seen by Provider: 05/15/22 02:16 Source: EMS Mode of arrival: EMS Limitations: no limitations Limitations: no limitations History of Present Illness HPI narrative: This is a 66-year-old male with COPD, insulin-dependent type 2 diabetes, Parkinson's, Lewy body dementia, CAD, hypothyroidism, depression and chronic pain. Patient was admitted for acute hypercapnic respiratory failure due to pneumonia with COPD exacerbation on 05/12/22. Patient improved during his stay and discharged home although per patient and EMS he was told should leave yet but chose to return home at that time. Also had acute kidney injury and some encephalopathy and rhabdo. Patient was discharged about 2-4pm on 05/14 and felt worse as the day progressed. Patient states about an hour prior to calling EMS he began to feel crampy, he had shortness of breath, chest pain tried his albuterol home which was helpful for the shortness of breath but no improvement in his chest pain or pressure. States this does not feel similar to when he had his heart attack before, denies any fevers or chills today but had some in the hospital. He is had productive green and clear sputum with his cough. No nausea, no vomiting, no diarrhea constipation. No urinary symptoms. He is had some swelling of his extremities which he states is not new. States he was discharged home with an antibiotic but has not filled the prescription yet. EMS notes his glucose was 450s in the field but otherwise normal vitals. Related Data Home Medications Medication Instructions Recorded Confirmed atorvastatin 80 mg tablet 80 mg PO 1XD 05/13/22 05/15/22 bupropion HCl 300 mg 24 hr tablet, 300 mg PO 1XD 05/13/22 05/15/22 extended release gabapentin 300 mg capsule 300 mg PO 2XD 05/13/22 05/15/22 levothyroxine 125 mcg tablet 125 mcg PO 1XD 05/13/22 05/15/22 lorazepam 1 mg tablet 1 mg PO 2XD 05/13/22 05/15/22 omeprazole 20 mg capsule,delayed 20 mg PO 1XD 05/13/22 05/15/22 release oxycodone 5 mg tablet 5 mg PO Q4-6H PRN Pain, Moderate 05/13/22 05/15/22 quetiapine 25 mg tablet 25 mg PO BEDTIME 05/13/22 05/15/22 Previous Rx's Medication Instructions Recorded ipratropium 0.5 mg-albuterol 3 mg 3 ml INH QID #360 mL 03/12/19 (2.5 mg base)/3 mL nebulization soln blood-glucose meter #1 ea 01/11/21 Disabled Parking Permit #1 ea 02/15/21 clopidogrel 75 mg tablet 75 mg PO DAILY #90 tabs 07/15/21 methocarbamol 500 mg tablet 500 mg PO TID PRN mm tightness #90 08/19/21 tabs insulin aspart U-100 100 unit/mL See Rx Instructions SUBCUT 10/22/21 (3 mL) subcutaneous pen (Novolog .COMPLEX #15 mL Flexpen U-100 Insulin aspart) beclomethasone dipropionate 40 1 inh inhalation BID Shortness Of 11/18/21 mcg/actuation HFA breath activated Breath #10.6 grams aerosol blood sugar diagnostic (Blood #100 ea 11/18/21 Glucose Test strips) flash glucose scanning reader #1 ea 12/03/21 (LanicaStyle Timmy 2 [place]) flash glucose sensor (FreeStyle #1 ea 12/03/21 Timmy 2 Sensor kit) levothyroxine 125 mcg tablet 125 mcg PO DAILY #90 tabs 12/09/21 citalopram 40 mg tablet (Celexa) 40 mg PO DAILY #90 tabs 12/17/21 triamcinolone acetonide 0.1 % 1 applic topical DAILY #30 grams 12/17/21 topical cream lancets 33 gauge (BD Ultra Fine #100 ea 03/06/22 Lancets) lorazepam 1 mg tablet 1 mg PO BID PRN sedation #60 tabs 03/11/22 albuterol sulfate 90 mcg/actuation 2 puff inhalation QID PRN 03/14/22 aerosol inhaler (Proventil HFA) shortness of breath #18 grams insulin glargine U-300 conc 300 80 unit (0.2667 mL) SUBCUT BID #15 04/21/22 unit/mL (3 mL) subcutaneous pen mL pen needle, diabetic 31 gauge x #100 ea 04/23/22/ (Comfort EZ Pen [place]) amoxicillin 500 mg-potassium 1 tab PO Q8H #14 tabs 05/14/22 clavulanate 125 mg tablet (Augmentin) Allergies Allergy/AdvReac Type Severity Reaction Status Date / Time adhesive Allergy Mild REDNESS/ITC Verified 03/06/22 13:12 HINESS morphine Allergy Verified 03/06/22 13:12 Review of Systems Review of Systems ROS Unobtainable: All systems reviewed & are unremarkable except as noted in HPI and below Patient History Medical History Bilateral otitis externa Borderline hyperlipidemia Cellulitis Chicken pox (1956) Chickenpox (1956) Chronic cough COPD (chronic obstructive pulmonary disease) Coronary artery disease (2006) Depression (2008) Diabetes (1994) Eczema Foot pain GERD (gastroesophageal reflux disease) (2012) Gout Hearing reduced Hip pain History of recurrent TIAs Hyperlipidemia Hypertension Hypothyroidism Kidney disease (2009) Measles (1955) Measles (1955) Mental health assessment declined Mumps (1958) Mumps (1958) Neuropathy Obstructive sleep apnea Otitis externa Screening for malignant neoplasm of colon Shoulder pain Sleep apnea Status post myocardial infarction Steatosis Strain of muscle of right groin region (03/30/18) Type 2 diabetes mellitus Well adult exam Surgical History Anesthesia History of heart artery stent (2006) History of heart artery stent (2010) Hx of shoulder surgery (2005) Family History Brother Age: 67 Diabetes mellitus Hyperlipidemia Mother Heart disease Hypertension Hyperlipidemia Diabetes mellitus Grandmother Diabetes mellitus Brother No problems noted. Sister Breast cancer Social History marital status: details: 3 years ago household members: none lives independently: Yes housing: apartment Smoking Status: Current every day smoker Tobacco: How many years used: 45 alcohol intake: current Smoking Status: Current every day smoker alcohol intake frequency: 0-2 drinks per day Substance Use Type: marijuana Exam Narrative Exam Narrative: GENERAL: Alert and oriented x three, mild distress HEENT: Head normocephalic, atraumatic, EOMI, pupils reactive, face symmetric, moist mucous membranes NECK: Supple, full range of motion CARDIOVASCULAR: Regular rate and rhythm without murmurs, rubs or gallops. Non reproducible chest pain. No JVD. RESPIRATORY: Breath sounds equal bilaterally, no wheezes rales or rhonchi. No tachypnea or accessory muscle use. ABDOMEN: Soft, nontender. Normoactive bowel sounds all 4 quadrants. No guarding or rebound, rigidity, no mass : No CVA tenderness EXTREMITIES: Normal range of motion, no clubbing, bilateral 1+ lower extremity edema. Neurovascularly intact. Patient has mild erythema bilateral lower extremities in the anterior shins, mild warmth. NEUROLOGICAL: Cranial nerves II through XII grossly intact. Moving all extremities SKIN: Warm, dry, no petechiae, no rashes or lesions. Initial Vital Signs Initial Vital Signs: Vital Signs Temperature 98.7 F 05/15/22 02:22 Pulse Rate 80 05/15/22 02:22 Respiratory Rate 21 05/15/22 02:22 Blood Pressure 150/78 H 05/15/22 02:22 Pulse Oximetry 99 05/15/22 02:22 Oxygen Delivery Method 05/15/22 02:22 Course Orders Ordered: Discontinued Medications Acetaminophen (Acetaminophen 325 Mg Tablet) 650 mg PO Q6HR PRN PRN Reason: Fever/Mild Pain (1-3) Last Admin: 05/15/22 06:48 Dose: 650 mg Documented By: EB Albuterol (Albuterol 2.5 Mg/3 Ml Neb (Adult)) 2.5 mg INH QID PRN PRN Reason: shortness of breath Last Admin: 05/15/22 11:05 Dose: 2.5 mg Documented By: SAT Albuterol (Albuterol 2.5 Mg/3 Ml Neb (Adult)) 2.5 mg INH Q4H PRN PRN Reason: shortness of breath Amoxicillin/Clavulanate Potassium (Amoxicillin/Clav 875/125 Mg) 1 tab PO BID [facility] Last Admin: 05/20/22 09:42 Dose: 1 tab Documented By: Admin: 05/19/22 21:00 Dose: 1 tab Documented By: Admin: 05/19/22 09:44 Dose: 1 tab Documented By: Admin: 05/18/22 21:14 Dose: 1 tab Documented By: Admin: 05/18/22 08:37 Dose: 1 tab Documented By: Admin: 05/17/22 21:26 Dose: 1 tab Documented By: Admin: 05/17/22 08:54 Dose: 1 tab Documented By: Admin: 05/16/22 21:20 Dose: 1 tab Documented By: REY Aspirin (Aspirin 81 Mg Chew Tab) 324 mg PO NOW ONE Stop: 05/15/22 03:00 Last Admin: 05/15/22 03:11 Dose: Not Given Documented By: EB Aspirin (Aspirin 325 Mg Tablet) 325 mg PO DAILY [facility] Last Admin: 05/20/22 09:42 Dose: 325 mg Documented By: Admin: 05/19/22 09:44 Dose: 325 mg Documented By: Admin: 05/18/22 08:36 Dose: 325 mg Documented By: Admin: 05/17/22 08:53 Dose: 325 mg Documented By: Admin: 05/16/22 10:10 Dose: 325 mg Documented By: Admin: 05/15/22 09:00 Dose: 325 mg Documented By: NEHEMIAH Atorvastatin Calcium (Atorvastatin 20 Mg Tablet) 80 mg PO DAILY [facility] Last Admin: 05/20/22 09:42 Dose: Not Given Documented By: Admin: 05/19/22 09:44 Dose: 80 mg Documented By: Admin: 05/18/22 08:35 Dose: 80 mg Documented By: Admin: 05/17/22 08:53 Dose: 80 mg Documented By: Admin: 05/16/22 10:10 Dose: 80 mg Documented By: Admin: 05/15/22 09:00 Dose: 80 mg Documented By: NEHEMIAH Budesonide (Budesonide 0.5 Mg/2 Ml Neb) 0.5 mg INH BID [facility] Last Admin: 05/20/22 09:19 Dose: 0.5 mg Documented By: Admin: 05/19/22 20:12 Dose: 0.5 mg Documented By: Admin: 05/19/22 10:04 Dose: 0.5 mg Documented By: Admin: 05/18/22 19:12 Dose: 0.5 mg Documented By: Admin: 05/18/22 09:54 Dose: 0.5 mg Documented By: Admin: 05/17/22 19:06 Dose: 0.5 mg Documented By: Admin: 05/17/22 08:50 Dose: 0.5 mg Documented By: Admin: 05/16/22 20:10 Dose: 0.5 mg Documented By: Admin: 05/16/22 09:39 Dose: 0.5 mg Documented By: Admin: 05/15/22 20:55 Dose: 0.5 mg Documented By: Admin: 05/15/22 11:05 Dose: 0.5 mg Documented By: SAT Citalopram Hydrobromide (Citalopram 10 Mg Tablet) 40 mg PO DAILY [facility] Last Admin: 05/20/22 09:43 Dose: Not Given Documented By: Admin: 05/19/22 09:44 Dose: 40 mg Documented By: Admin: 05/18/22 08:35 Dose: 40 mg Documented By: Admin: 05/17/22 08:53 Dose: 40 mg Documented By: Admin: 05/16/22 10:11 Dose: 40 mg Documented By: Admin: 05/15/22 09:01 Dose: 40 mg Documented By: OW Clopidogrel Bisulfate (Clopidogrel 75 Mg Tablet) 75 mg PO DAILY [facility] Admin: 05/20/22 09:42 Dose: 75 mg Documented By: Admin: 05/19/22 09:44 Dose: 75 mg Documented By: Admin: 05/18/22 08:35 Dose: 75 mg Documented By: Admin: 05/17/22 08:54 Dose: 75 mg Documented By: Admin: 05/16/22 10:10 Dose: 75 mg Documented By: Admin: 05/15/22 09:01 Dose: 75 mg Documented By: OW Dextrose (Dextrose 50 % In Water 25 Gm/50 Ml Syringe) 25 gm IV PRN PRN PRN Reason: Hypoglycemia Enoxaparin Sodium (Enoxaparin 40 Mg/0.4 Ml Syringe) 40 mg SUBCUT DAILY [facility] Last Admin: 05/20/22 09:43 Dose: 40 mg Documented By: Admin: 05/19/22 09:44 Dose: 40 mg Documented By: Admin: 05/18/22 08:36 Dose: 40 mg Documented By: Admin: 05/17/22 08:52 Dose: 40 mg Documented By: Admin: 05/16/22 10:11 Dose: 40 mg Documented By: Admin: 05/15/22 09:00 Dose: 40 mg Documented By: OW Gabapentin (Gabapentin 300 Mg Capsule) 300 mg PO BID [facility] Last Admin: 05/16/22 21:20 Dose: 300 mg Documented By: Admin: 05/16/22 10:11 Dose: 300 mg Documented By: Admin: 05/15/22 20:22 Dose: 300 mg Documented By: Admin: 05/15/22 09:00 Dose: 300 mg Documented By: OW Gabapentin (Gabapentin 300 Mg Capsule) 600 mg PO BID [facility] Last Admin: 05/20/22 09:43 Dose: Not Given Documented By: Admin: 05/19/22 21:00 Dose: 600 mg Documented By: Admin: 05/19/22 09:44 Dose: 600 mg Documented By: HCRandall Admin: 05/18/22 21:14 Dose: 600 mg Documented By: Admin: 05/18/22 08:36 Dose: 600 mg Documented By: RLBonnie Admin: 05/17/22 21:26 Dose: 600 mg Documented By: Admin: 05/17/22 08:54 Dose: 600 mg Documented By: PAUL Gabapentin (Gabapentin 300 Mg Capsule) 300 mg PO NOW ONE Stop: 05/16/22 21:35 Last Admin: 05/16/22 21:52 Dose: 300 mg Documented By: REY Vancomycin HCl/Dextrose (Vancomycin) 2,000 mg in 400 mls @ 200 mls/hr IV NOW ONE Stop: 05/15/22 05:01 Last Infusion: 05/15/22 05:47 Dose: 0 mls/hr Documented By: Admin: 05/15/22 03:33 Dose: 200 mls/hr Documented By: EB Sodium Chloride (Normal Saline 0.9%) 1,000 mls @ 1,000 mls/hr IV BOLUS ONE Stop: 05/15/22 03:58 Last Infusion: 05/15/22 04:20 Dose: 0 mls/hr Documented By: Admin: 05/15/22 03:17 Dose: 1,000 mls/hr Documented By: EB Sodium Chloride (Normal Saline 0.9%) 1,000 mls @ 60 mls/hr IV CONT [facility] Last Admin: 05/16/22 00:23 Dose: 60 mls/hr Documented By: Infusion: 05/16/22 00:23 Dose: 60 mls/hr Documented By: Admin: 05/15/22 08:58 Dose: 60 mls/hr Documented By: NEHEMIAH Daptomycin 760 mg/ Sodium (Chloride) 50 mls @ 100 mls/hr IV Q24H [facility] Last Admin: 05/15/22 12:30 Dose: Not Given Documented By: NEHEMIAH Magnesium Sulfate (Magnesium Sulfate) 2 gm in 50 mls @ 25 mls/hr IV NOW ONE Stop: 05/15/22 08:15 Last Admin: 05/15/22 06:48 Dose: 25 mls/hr Documented By: ALFA Co-signed By: CHACE Daptomycin 610 mg/ Sodium (Chloride) 50 mls @ 100 mls/hr IV Q24H [facility] Last Infusion: 05/15/22 10:40 Dose: 0 mls/hr Documented By: Admin: 05/15/22 10:09 Dose: 100 mls/hr Documented By: NEHEMIAH Vancomycin HCl (Vancomycin) 1,250 mg in 250 mls @ 250 mls/hr IV Q12H [facility] Dextrose (D10w) 250 mls @ 999 mls/hr IV PRN PRN PRN Reason: Hypoglycemia Insulin Glargine (Insulin Glargine 100 Unit/Ml 3ml Pen) 20 unit SUBCUT NOW ONE Stop: 05/15/22 05:27 Last Admin: 05/15/22 05:30 Dose: 20 unit Documented By: ALFA Co-signed By: CHACE Insulin Glargine (Insulin Glargine 100 Unit/Ml 3ml Pen) 40 unit SUBCUT BID [facility] Last Admin: 05/16/22 10:28 Dose: Not Given Documented By: Admin: 05/15/22 20:22 Dose: 40 unit Documented By: CHARLEY Co-signed By: JOSE EDUARDO Admin: 05/15/22 09:11 Dose: 40 unit Documented By: OW Co-signed By: DASHAWN Insulin Glargine (Insulin Glargine 100 Unit/Ml 3ml Pen) 30 unit SUBCUT BID [facility] Last Admin: 05/20/22 09:43 Dose: 30 unit Documented By: BT Co-signed By: ROLAN Admin: 05/19/22 21:10 Dose: 30 unit Documented By: CS Co-signed By: SH Admin: 05/19/22 09:46 Dose: 30 unit Documented By: HCW Co-signed By: ROLAN Admin: 05/18/22 21:19 Dose: 30 unit Documented By: CS Co-signed By: JUNO Admin: 05/18/22 08:29 Dose: 30 unit Documented By: ROSANNA Co-signed By: GRIFFIN Admin: 05/17/22 21:26 Dose: 30 unit Documented By: SAMMIE Co-signed By: NEHEMIAH Admin: 05/17/22 08:40 Dose: 30 unit Documented By: HCW Co-signed By: LEE Admin: 05/16/22 21:21 Dose: 30 unit Documented By: KENNEYW Co-signed By: JASON Admin: 05/16/22 12:40 Dose: 30 unit Documented By: BR Co-signed By: DRAKE Insulin Human Lispro (Insulin Lispro 100 Unit/Ml 3ml Vial) 0 unit SUBCUT [facility]; Protocol Last Admin: 05/18/22 21:22 Dose: 10 unit Documented By: NIKITA Co-signed By: JUNO Admin: 05/18/22 17:03 Dose: 7 unit Documented By: RLBonnie Co-signed By: CHERYLE Admin: 05/18/22 11:52 Dose: 4 unit Documented By: RLBonnie Co-signed By: CHERYLE Admin: 05/18/22 08:26 Dose: 2 unit Documented By: RLBonnie Co-signed By: GRIFFIN Admin: 05/17/22 21:28 Dose: 7 unit Documented By: SAMMIE Co-signed By: NEHEMIAH Admin: 05/17/22 17:13 Dose: 2 unit Documented By: HCW Co-signed By: OW Admin: 05/17/22 12:15 Dose: 7 unit Documented By: HCW Co-signed By: OW Admin: 05/17/22 08:41 Dose: 2 unit Documented By: HCW Co-signed By: LEE Admin: 05/16/22 21:20 Dose: 5 unit Documented By: AGW Co-signed By: JASON Admin: 05/16/22 16:55 Dose: 4 unit Documented By: GRIFFIN Co-signed By: DRAKE Admin: 05/16/22 12:41 Dose: 2 unit Documented By: GRIFFIN Co-signed By: DRAKE Admin: 05/16/22 08:01 Dose: Not Given Documented By: Admin: 05/15/22 20:23 Dose: 2 unit Documented By: CHARLEY Co-signed By: JOSE EDUARDO Admin: 05/15/22 17:08 Dose: 100 unit Documented By: NEHEMIAH Co-signed By: DASHAWN Admin: 05/15/22 12:19 Dose: 4 unit Documented By: OW Co-signed By: DASHAWN Admin: 05/15/22 09:04 Dose: 7 unit Documented By: OW Co-signed By: DASHAWN Insulin Human Lispro (Insulin Lispro 100 Unit/Ml 3ml Vial) 0 unit SUBCUT [facility]; Protocol Last Admin: 05/20/22 17:04 Dose: 1 unit Documented By: BT Co-signed By: TLS Admin: 05/20/22 12:16 Dose: Not Given Documented By: Admin: 05/20/22 09:41 Dose: 5 unit Documented By: BT Co-signed By: CLL Admin: 05/19/22 22:34 Dose: 3 unit Documented By: TLS Co-signed By: NIKITA Admin: 05/19/22 17:24 Dose: 7 unit Documented By: HCW Co-signed By: CLL Admin: 05/19/22 12:12 Dose: 5 unit Documented By: HCW Co-signed By: CLL Admin: 05/19/22 09:34 Dose: Not Given Documented By: Admin: 05/19/22 07:19 Dose: Not Given Documented By: NIKITA Ketorolac Tromethamine (Ketorolac 30 Mg/Ml Vial) 15 mg IV NOW ONE Stop: 05/15/22 03:11 Last Admin: 05/15/22 03:17 Dose: 15 mg Documented By: ALFA Levothyroxine Sodium (Levothyroxine 125 Mcg Tablet) 125 mcg PO 0600 [facility] Last Admin: 05/20/22 06:41 Dose: Not Given Documented By: Admin: 05/19/22 05:21 Dose: 125 mcg Documented By: Admin: 05/18/22 06:29 Dose: 125 mcg Documented By: Admin: 05/17/22 05:41 Dose: 125 mcg Documented By: Admin: 05/16/22 06:22 Dose: 125 mcg Documented By: CHARLEY Levothyroxine Sodium (Levothyroxine 125 Mcg Tablet) 125 mcg PO DAILY [facility] Nitroglycerin (Nitroglycerin 0.4 Mg Sl Tab) 0.4 mg SL [id number] PRN PRN Reason: Chest Pain Oxycodone HCl (Oxycodone Ir 5 Mg Tablet) 10 mg PO NOW ONE Stop: 05/15/22 04:56 Last Admin: 05/15/22 05:03 Dose: 10 mg Documented By: ALFA Pantoprazole Sodium (Pantoprazole Dr 20 Mg Tablet) 20 mg PO 0600 [facility] Last Admin: 05/20/22 06:40 Dose: Not Given Documented By: Admin: 05/19/22 05:21 Dose: 20 mg Documented By: Admin: 05/18/22 06:29 Dose: 20 mg Documented By: Admin: 05/17/22 05:41 Dose: 20 mg Documented By: Admin: 05/16/22 06:21 Dose: 20 mg Documented By: CHARLEY Potassium Chloride (Potassium Chloride 20 Meq/15 Ml Udc) 40 meq PO NOW ONE Stop: 05/16/22 13:16 Last Admin: 05/16/22 15:41 Dose: 40 meq Documented By: GRIFFIN Prednisone (Prednisone 20 Mg Tablet) 40 mg PO DAILY [facility] Quetiapine Fumarate (Quetiapine 25 Mg Tablet) 25 mg PO BEDTIME [facility] Last Admin: 05/19/22 21:00 Dose: 25 mg Documented By: Admin: 05/18/22 21:14 Dose: 25 mg Documented By: Admin: 05/17/22 21:26 Dose: 25 mg Documented By: Admin: 05/16/22 21:20 Dose: 25 mg Documented By: Admin: 05/15/22 20:22 Dose: 25 mg Documented By: CHARLEY Sodium Chloride (Sodium Chloride 0.9% Flush) 10 ml IV BID [facility] Last Admin: 05/20/22 09:43 Dose: 10 ml Documented By: Admin: 05/19/22 22:32 Dose: 10 ml Documented By: Admin: 05/19/22 09:45 Dose: 10 ml Documented By: Admin: 05/19/22 00:27 Dose: Not Given Documented By: Admin: 05/18/22 21:15 Dose: 10 ml Documented By: Admin: 05/17/22 21:30 Dose: 10 ml Documented By: SAMMIE Sodium Chloride (Sodium Chloride 0.9% Flush) 10 ml IV PRN PRN PRN Reason: Flush Last Admin: 05/18/22 08:38 Dose: 10 ml Documented By: ROSANNA Vancomycin HCl (Vancomycin Per Pharmacy) 1 request MISC NOW ONE Stop: 05/15/22 05:48 Last Admin: 05/15/22 12:49 Dose: Not Given Documented By: OW Vancomycin HCl (Vancomycin Trough) 1 request MISC 1430 [facility] Stop: 05/16/22 14:31 Vancomycin HCl (Vancomycin Peak) 1 request MIS 1700 [facility] Stop: 05/16/22 17:01 Reevaluation(s) Reevaluation #1: patient still has chest pain. Troponin is pending but all labs otherwise reviewed with patient as well as findings and his recent culture 2 was positive. Patient aware of plan to keep for observation if troponin is stable if positive will consult with Cardiology. Time: 05:01 Vital Signs Vital signs: Vital Signs - 8 hr 05/15/22 02:22 05/15/22 03:49 05/15/22 04:00 Temperature 98.7 F Pulse Rate 80 79 Respiratory Rate 21 9 L Blood Pressure 150/78 H 178/85 H Pulse Oximetry 99 98 Oxygen Delivery Method Room Air 05/15/22 04:00 Temperature Pulse Rate 79 Respiratory Rate 13 Blood Pressure Pulse Oximetry 97 Oxygen Delivery Method MDM - Chest Pain Lab Data Result diagrams: 05/17/22 06:42 05/17/22 06:42 Labs: Lab Results 05/15/22 05/15/22 05/15/22 Range/Units 02:20 02:22 02:22 WBC 12.7 H (4.5-11.0) X10^3/uL RBC 4.14 L (4.5-5.9) X10^6/uL Hgb 12.7 L (13.5-17.5) g/dL Hct 36.3 L (41-53) % MCV 87.8 (80-100) fL MCH 30.6 (26-34) PG MCHC 34.9 (30-36) % RDW 14.9 H (11.6-14.8) % Plt Count 215 (150-400) X10^3/uL Neut % (Auto) 81.5 H (50-75) % Lymph % (Auto) 11.6 L (25-40) % [place] % (Auto) 6.7 (3-14) % Eos % (Auto) 0.0 L (2-4) % Baso % (Auto) 0.2 (0-2) % Neut # (Auto) 11449 H (8394-0710) /uL Lymph # (Auto) 1500 (8131-1794) /uL [place] # (Auto) 800 (0-900) /uL Eos # (Auto) 0 (0-450) /uL Baso # (Auto) 0 (0-100) /uL PT 13.0 H (10.1-12.7) SECONDS INR 1.2 (0.9-1.3) APTT 30 (26.4-36.2) SECONDS D-Dimer 239 H (<230) ng/mL Sodium (137-145) mmol/L Potassium (3.4-5.1) mmol/L Chloride (98-107) mmol/L Carbon Dioxide (22-32) mmol/L BUN (9-20) mg/dL Creatinine (0.66-1.25) mg/dL Estimated GFR (>60) mL/min BUN/Creatinine Ratio (6-22) Glucose (80-110) mg/dL Lactate (0.7-2.1) mmol/L Calcium (8.4-10.2) mg/dL Magnesium (1.6-2.3) mg/dL Total Bilirubin (0.2-1.3) mg/dL AST (17-59) IU/L ALT (<50) IU/L Alkaline Phosphatase (38-126) U/L Total Creatine Kinase (55-170) U/L CK-MB (CK-2) (<2.37) ng/mL CK-MB (CK-2) Rel Index (1.5-5.0) % Troponin I (0.01-0.034) ng/mL NT-Pro-B Natriuret Pep (<125) pg/mL Total Protein (6.3-8.2) g/dL Albumin (3.5-5.0) g/dL Globulin (1.7-4.1) g/dL Albumin/Globulin Ratio (1.0-2.8) Triglycerides (35-150) mg/dL Cholesterol (140-199) mg/dL LDL Cholesterol, Calc (<100) mg/dL HDL Cholesterol (40-60) mg/dL Lipase (23-300) U/L Procalcitonin (<0.5) ng/mL TSH (0.47-4.68) uIU/mL Urine Color Urine Appearance Urine pH (4.5-8.0) Ur Specific [place] (1.000-1.035) Urine Protein (Negative) Urine Glucose (UA) (Negative) g/dL Urine Ketones (NEGATIVE) Urine Occult Blood (Negative) Urine Nitrate (Negative) Urine Bilirubin (NEGATIVE) Urine Urobilinogen (0.2) E.U./dL Ur Leukocyte Esterase (NEGATIVE) Urine RBC (0-5/HPF) Urine WBC (0-5/HPF) Ur Squamous Epith Cells (0-5/HPF) Urine Bacteria (None) Ur Culture Indicated? SARS-CoV-2 (PCR) (Negative) 05/15/22 05/15/22 05/15/22 Range/Units 02:22 02:22 03:34 WBC (4.5-11.0) X10^3/uL RBC (4.5-5.9) X10^6/uL Hgb (13.5-17.5) g/dL Hct (41-53) % MCV (80-100) fL MCH (26-34) PG MCHC (30-36) % RDW (11.6-14.8) % Plt Count (150-400) X10^3/uL Neut % (Auto) (50-75) % Lymph % (Auto) (25-40) % [place] % (Auto) (3-14) % Eos % (Auto) (2-4) % Baso % (Auto) (0-2) % Neut # (Auto) (1803-1883) /uL Lymph # (Auto) (4549-0408) /uL [place] # (Auto) (0-900) /uL Eos # (Auto) (0-450) /uL Baso # (Auto) (0-100) /uL PT (10.1-12.7) SECONDS INR (0.9-1.3) APTT (26.4-36.2) SECONDS D-Dimer (<230) ng/mL Sodium 132 L (137-145) mmol/L Potassium 4.2 (3.4-5.1) mmol/L Chloride 98 (98-107) mmol/L Carbon Dioxide 26 (22-32) mmol/L BUN 23 H (9-20) mg/dL Creatinine 0.81 (0.66-1.25) mg/dL Estimated GFR > 60 (>60) mL/min BUN/Creatinine Ratio 28.4 H (6-22) Glucose 482 H D (80-110) mg/dL Lactate 1.8 (0.7-2.1) mmol/L Calcium 9.0 (8.4-10.2) mg/dL Magnesium (1.6-2.3) mg/dL Total Bilirubin 0.5 (0.2-1.3) mg/dL AST 59 (17-59) IU/L ALT 54 H (<50) IU/L Alkaline Phosphatase 81 (38-126) U/L Total Creatine Kinase 851 H D (55-170) U/L CK-MB (CK-2) 8.75 H (<2.37) ng/mL CK-MB (CK-2) Rel Index 1.0 L (1.5-5.0) % Troponin I 0.037 H (0.01-0.034) ng/mL NT-Pro-B Natriuret Pep 1790 H (<125) pg/mL Total Protein 6.8 (6.3-8.2) g/dL Albumin 3.7 (3.5-5.0) g/dL Globulin 3.1 (1.7-4.1) g/dL Albumin/Globulin Ratio 1.2 (1.0-2.8) Triglycerides (35-150) mg/dL Cholesterol (140-199) mg/dL LDL Cholesterol, Calc (<100) mg/dL HDL Cholesterol (40-60) mg/dL Lipase 71 D (23-300) U/L Procalcitonin 0.09 (<0.5) ng/mL TSH (0.47-4.68) uIU/mL Urine Color Yellow Urine Appearance Clear Urine pH 6.0 (4.5-8.0) Ur Specific [place] <=1.005 (1.000-1.035) Urine Protein 2+ H (Negative) Urine Glucose (UA) 2+ H (Negative) g/dL Urine Ketones Negative (NEGATIVE) Urine Occult Blood 1+ H (Negative) Urine Nitrate Negative (Negative) Urine Bilirubin Negative (NEGATIVE) Urine Urobilinogen 0.2 (0.2) E.U./dL Ur Leukocyte Esterase Negative (NEGATIVE) Urine RBC None seen (0-5/HPF) Urine WBC None seen (0-5/HPF) Ur Squamous Epith Cells None seen (0-5/HPF) Urine Bacteria None seen (None) Ur Culture Indicated? Cult not indicated SARS-CoV-2 (PCR) (Negative) 05/15/22 05/15/22 05/15/22 Range/Units 03:50 04:25 04:25 WBC (4.5-11.0) X10^3/uL RBC (4.5-5.9) X10^6/uL Hgb (13.5-17.5) g/dL Hct (41-53) % MCV (80-100) fL MCH (26-34) PG MCHC (30-36) % RDW (11.6-14.8) % Plt Count (150-400) X10^3/uL Neut % (Auto) (50-75) % Lymph % (Auto) (25-40) % [place] % (Auto) (3-14) % Eos % (Auto) (2-4) % Baso % (Auto) (0-2) % Neut # (Auto) (3355-2329) /uL Lymph # (Auto) (5015-1376) /uL [place] # (Auto) (0-900) /uL Eos # (Auto) (0-450) /uL Baso # (Auto) (0-100) /uL PT (10.1-12.7) SECONDS INR (0.9-1.3) APTT (26.4-36.2) SECONDS D-Dimer (<230) ng/mL Sodium (137-145) mmol/L Potassium (3.4-5.1) mmol/L Chloride (98-107) mmol/L Carbon Dioxide (22-32) mmol/L BUN (9-20) mg/dL Creatinine (0.66-1.25) mg/dL Estimated GFR (>60) mL/min BUN/Creatinine Ratio (6-22) Glucose 400 H (80-110) mg/dL Lactate (0.7-2.1) mmol/L Calcium (8.4-10.2) mg/dL Magnesium (1.6-2.3) mg/dL Total Bilirubin (0.2-1.3) mg/dL AST (17-59) IU/L ALT (<50) IU/L Alkaline Phosphatase (38-126) U/L Total Creatine Kinase (55-170) U/L CK-MB (CK-2) (<2.37) ng/mL CK-MB (CK-2) Rel Index (1.5-5.0) % Troponin I 0.041 H (0.01-0.034) ng/mL NT-Pro-B Natriuret Pep (<125) pg/mL Total Protein (6.3-8.2) g/dL Albumin (3.5-5.0) g/dL Globulin (1.7-4.1) g/dL Albumin/Globulin Ratio (1.0-2.8) Triglycerides (35-150) mg/dL Cholesterol (140-199) mg/dL LDL Cholesterol, Calc (<100) mg/dL HDL Cholesterol (40-60) mg/dL Lipase (23-300) U/L Procalcitonin (<0.5) ng/mL TSH (0.47-4.68) uIU/mL Urine Color Urine Appearance Urine pH (4.5-8.0) Ur Specific [place] (1.000-1.035) Urine Protein (Negative) Urine Glucose (UA) (Negative) g/dL Urine Ketones (NEGATIVE) Urine Occult Blood (Negative) Urine Nitrate (Negative) Urine Bilirubin (NEGATIVE) Urine Urobilinogen (0.2) E.U./dL Ur Leukocyte Esterase (NEGATIVE) Urine RBC (0-5/HPF) Urine WBC (0-5/HPF) Ur Squamous Epith Cells (0-5/HPF) Urine Bacteria (None) Ur Culture Indicated? SARS-CoV-2 (PCR) Negative (Negative) 05/15/22 05/15/22 05/15/22 Range/Units 04:45 04:45 04:45 WBC (4.5-11.0) X10^3/uL RBC (4.5-5.9) X10^6/uL Hgb (13.5-17.5) g/dL Hct (41-53) % MCV (80-100) fL MCH (26-34) PG MCHC (30-36) % RDW (11.6-14.8) % Plt Count (150-400) X10^3/uL Neut % (Auto) (50-75) % Lymph % (Auto) (25-40) % [place] % (Auto) (3-14) % Eos % (Auto) (2-4) % Baso % (Auto) (0-2) % Neut # (Auto) (0453-4343) /uL Lymph # (Auto) (5445-9728) /uL [place] # (Auto) (0-900) /uL Eos # (Auto) (0-450) /uL Baso # (Auto) (0-100) /uL PT (10.1-12.7) SECONDS INR (0.9-1.3) APTT (26.4-36.2) SECONDS D-Dimer (<230) ng/mL Sodium (137-145) mmol/L Potassium (3.4-5.1) mmol/L Chloride (98-107) mmol/L Carbon Dioxide (22-32) mmol/L BUN (9-20) mg/dL Creatinine (0.66-1.25) mg/dL Estimated GFR (>60) mL/min BUN/Creatinine Ratio (6-22) Glucose (80-110) mg/dL Lactate (0.7-2.1) mmol/L Calcium (8.4-10.2) mg/dL Magnesium 1.4 L (1.6-2.3) mg/dL Total Bilirubin (0.2-1.3) mg/dL AST (17-59) IU/L ALT (<50) IU/L Alkaline Phosphatase (38-126) U/L Total Creatine Kinase (55-170) U/L CK-MB (CK-2) (<2.37) ng/mL CK-MB (CK-2) Rel Index (1.5-5.0) % Troponin I (0.01-0.034) ng/mL NT-Pro-B Natriuret Pep (<125) pg/mL Total Protein (6.3-8.2) g/dL Albumin (3.5-5.0) g/dL Globulin (1.7-4.1) g/dL Albumin/Globulin Ratio (1.0-2.8) Triglycerides 112 (35-150) mg/dL Cholesterol 114 L (140-199) mg/dL LDL Cholesterol, Calc 55 (<100) mg/dL HDL Cholesterol 37 L (40-60) mg/dL Lipase (23-300) U/L Procalcitonin (<0.5) ng/mL TSH 1.27 D (0.47-4.68) uIU/mL Urine Color Urine Appearance Urine pH (4.5-8.0) Ur Specific [place] (1.000-1.035) Urine Protein (Negative) Urine Glucose (UA) (Negative) g/dL Urine Ketones (NEGATIVE) Urine Occult Blood (Negative) Urine Nitrate (Negative) Urine Bilirubin (NEGATIVE) Urine Urobilinogen (0.2) E.U./dL Ur Leukocyte Esterase (NEGATIVE) Urine RBC (0-5/HPF) Urine WBC (0-5/HPF) Ur Squamous Epith Cells (0-5/HPF) Urine Bacteria (None) Ur Culture Indicated? SARS-CoV-2 (PCR) (Negative) Point of Care Testing Glucose POC 275 Imaging Data Chest x-ray: My Impression: prelim-no acute change/worsening from prior. ECG Data Attestation: I personally reviewed and interpreted this ECG as follows: Interpretation: NSR rate of 79, [place] 182 QRS [address] QTC [address] No acute ST elevation or depression noted. Patient has Q-wave in V1 V2 which appears similar on 05/12/2022. EKG2. Sinus rhythm, septal infarct, rate of 71 [place] 216, QRS of 96 and QTC of 417. First-degree block secondary to prolonged [place] interval was 192 on prior but no other acute ST changes noted MDM Narrative Medical decision making narrative: This is a 66-year-old male with known Lewy body dementia, Parkinson's who was recently admitted for pneumonia, acute kidney injury, rhabdo who has developed chest pain in the interim he states he was not having any chest pain before. No acute EKG changes troponin is indeterminate, BNP is elevated none prior for comparison, total CK is trending down words. Sodium is 132 slightly decreased from prior on the 13th was 136. Hemoglobin shows a white count trending upwards, procalcitonin still negative, blood culture 1 of 2 positive for staph with pending sensitivities. Patient was covered with Vancomycin IV. D-dimer was obtained secondary to recent hospitalization and new chest pain. This is 239 today but age adjusted cut off would be 340. covid swab obtained and is negative. Repeat troponin shows 0.041. Patient admitted for possible bacteremia with positive blood culture from recent visit. Discharge Plan Departure Patient Disposition: Admitted as Observation Clinical Impression: Bacteremia, Pneumonia, Chest pain Admit Date/Time: 05/15/22 05:36 Admit Provider: Parris Neumann
[2022-05-15 03:14] LABS: INR 1.2 (0.9-1.3)
[2022-05-15 03:15] LABS: Add Manual Diff / Slide Review NO; Basophils Absolute Auto 0 /uL (0-100); Basophils Percent Auto 0.2 % (0-2); Eosinophils Absolute Auto 0 /uL (0-450); Hematocrit 36.3 % (41-53); Hemoglobin 12.7 g/dL (13.5-17.5); Lymphocytes Absolute Auto 1500 /uL (1100-4500); Lymphocytes Percent Auto 11.6 % (25-40); Mean Corpuscular HGB Conc 34.9 % (30-36); Mean Corpuscular Hemoglobin 30.6 PG (26-34); Mean Corpuscular Volume 87.8 fL (80-100); Monocytes Absolute Auto 800 /uL (0-900); Monocytes Percent Auto 6.7 % (3-14); Neutrophils Absolute Auto 10400 /uL (1500-7000); Neutrophils Percent Auto 81.5 % (50-75); Platelet Count 215 X10^3/uL (150-400); Red Blood Cell Count 4.14 X10^6/uL (4.5-5.9); Red Cell Distribution Width 14.9 % (11.6-14.8); White Blood Cell Count 12.7 X10^3/uL (4.5-11.0)
[2022-05-15 03:17] LABS: PTT Partial Thromboplastin Tim 30 SECONDS (26.4-36.2)
[2022-05-15] MEDS: KETOROLAC 30 MG/ML VIAL 15 MG IV (03:17)
[2022-05-15] MEDS: SODIUM CHLORIDE 0.9% 1,000 ML 1000 ML IV (03:17)
[2022-05-15 03:19] LABS: Alanine Aminotransferase 54 IU/L (<50); Albumin 3.7 g/dL (3.5-5.0); Albumin Globulin Ratio 1.2 (1.0-2.8); Alkaline Phosphatase 81 U/L (38-126); Aspartate Aminotransferase 59 IU/L (17-59); BUN Creatinine Ratio 28.4 (6-22); Bilirubin Total 0.5 mg/dL (0.2-1.3); Blood Urea Nitrogen 23 mg/dL (9-20); Carbon Dioxide 26 mmol/L (22-32); Chloride 98 mmol/L (98-107); Creatine Kinase 851 U/L (55-170); Estimated Glomerular Filt Rate > 60 mL/min (>60); Globulin 3.1 g/dL (1.7-4.1); Glucose 482 mg/dL (80-110); HEMOLYSIS < 15 (0-50); Lactate (Lactic Acid) 1.8 mmol/L (0.7-2.1); Lipase 71 U/L (23-300); Potassium 4.2 mmol/L (3.4-5.1); Sodium 132 mmol/L (137-145); Total Protein 6.8 g/dL (6.3-8.2)
[2022-05-15 03:31] LABS: NT-proBNP (BNP-Adult 18+) 1790 pg/mL (<125); Troponin I 0.037 ng/mL (0.01-0.034)
[2022-05-15] MEDS: VANCOMYCIN 2,000 MG/400 ML PIGGYBACK 200 MG IV (03:33)
[2022-05-15 03:34] LABS: Creatine Kinase MB 8.75 ng/mL (<2.37)
[2022-05-15 03:35] LABS: Procalcitonin 0.09 ng/mL (<0.5)
--- NOTE | 2022-05-15 03:42 | PC.NURSE ---
Pt very unsteady on his feet to use bedside urinal. Heavy assist of 1 required for pt when out of bed. Pt needed assistance to take pants off. Pt states he was diagnosed several months ago with Lewy Body Dementia.
--- NOTE | 2022-05-15 03:53 | PC.NURSE ---
Pt made comment to staff member that his pain was not yet controlled because it wasn't a narcotic that he had received not long ago for pain management. Provider notified of this. Pt rates pain 05/11. When Toradol was administered, pt stated Oh that stuff never works for me, I usually get dilaudid or fentanyl.
[2022-05-15 04:00] LABS: D Dimer 239 ng/mL (<230)
[2022-05-15 04:12] LABS: COVID19 -Nasal RAPID Negative (Negative)
--- NOTE | 2022-05-15 04:57 | PC.NURSE ---
Pt has put call light on 5 times since arrival asking for pain medications. Provider to go in and see pt.
[2022-05-15 05:02] LABS: Troponin I 0.041 ng/mL (0.01-0.034)
[2022-05-15] MEDS: OXYCODONE IR 5 MG TABLET 10 MG PO (05:03)
[2022-05-15 05:16] LABS: Glucose 400 mg/dL (80-110)
[2022-05-15] MEDS: INSULIN GLARGINE 100 UNIT/ML 3ML PEN 20 UNIT SUBCUT (05:30)
--- NOTE | 2022-05-15 05:34 | PC.NURSE ---
Stand by assist with urinal at bedside, Pt unsteady. changed soiled brief
--- NOTE | 2022-05-15 05:36 | DI.ECHO.S_ITS ---
[facility]---------+ [facility] +---------+ : : [address] : [place] : : : : [id number] : : : : Phone: [phone]+ Echocardiogram Report + + :Name: OLY BARR Study Date: 05/15/2022 Height: 66 in : :[facility] ReadingLocation: Weight: 210 lb: : Gender: Male BSA: 2.0 m2 : :: 1955 Age: 66 yrs : :Reason For Study: CP, ELEVATED TROPONIN : :Ordering Physician: FABI, : :KEI Performed By: Kalyn Arevalo : :Referring: KEI DUNLAP : + + Interpretation Summary 1) Normal left ventricular thickness, size, and systolic function (EF 55-60%). 2) Unable to rule out mid inferolateral wall hypokinesis due to inadequate visualization. 3) Mildly dilated right ventricle with normal function. 4) No significant valvular abnormalities. 5) Compared to the Echo done 10/27/2020, wall motion abnormality as noted above may be present on this study. Procedure: A two-dimensional transthoracic echocardiogram with color flow and Doppler was performed. The study quality was technically adequate. Comparison is made with the echocardiogram of 10/27/2020. The patient was in sinus rhythm with heart rates between 60-75 bpm during the exam. Left Ventricle: The left ventricle is normal in size and wall thickness. The ejection fraction is estimated to be 55-60%. Unable to rule out mid inferolateral wall hypokinesis due to inadequate visualization. Right Ventricle: The right ventricle is mildly dilated. The right ventricular systolic function is normal. Atria: The left atrial size is normal. Right atrial size is normal. There is no Doppler evidence for an interatrial shunt. Mitral Valve: The mitral valve is normal in structure and function. There is mild mitral regurgitation. Aortic Valve: The aortic valve is trileaflet. The aortic valve opens well. The aortic valve is mildly calcified. There is no aortic valve stenosis. No aortic regurgitation is present. Tricuspid Valve: The tricuspid valve is normal in structure and function. There is trace tricuspid regurgitation. Pulmonic Valve: The pulmonic valve is not well visualized. There is mild pulmonic regurgitation. Great Vessels: The aortic root is normal size. The dimensions of the ascending aorta are normal. The IVC is of normal diameter and collapses greater than 50% with a sniff. This suggests a low right atrial pressure of 3 mm Hg. Pericardium/ Pleura There is no pericardial effusion. There is no pleural effusion. MMode/2D Measurements & Calculations LVIDd: 4.5 cm LVOT diam: 2.2 cm LVIDs: 3.0 cm Ao root diam: 3.2 cm FS: 32.8 % asc Aorta Diam: 3.5 cm EPSS: 0.89 cm IVSd: 0.95 cm LVPWd: 1.1 cm LV brown. diameter/BSA (cm/m^2): 2.2 LV sys. diameter/BSA (cm/m^2): 1.5 LA A2 area: 21.4 cm2 RA long axis: 5.6 cm LA A4 area: 19.0 cm2 RA area: 19.7 cm2 LA length (vol): 5.2 cm RA vol: 58.8 ml LA vol: 66.7 ml RA : 28.8 ml/m2 LA vol index: 32.7 ml/m2 IVC diam: 1.7 cm RVD1 (basal): 4.4 cm RVD2 (mid): 3.8 cm Doppler Measurements & Calculations Ao V2 max: 164.7 cm/sec LVOT Max [place]: 83.9 cm/sec Ao V2 mean: 109.0 cm/sec LV V1 max P.8 mmHg Ao max P.8 mmHg LV V1 VTI: 19.0 cm Ao mean P.5 mmHg SONDRA(I,D): 1.9 cm2 Ao V2 VTI: 37.1 cm SONDRA(V,D): 1.9 cm2 sev ratio: 0.51 SONDRA indexed to BSA (cm^2/m^2): 0.95 MV E max augustine: 79.4 cm/sec PA V2 max: 98.1 cm/sec MV A max augustine: 70.7 cm/sec PA V2 mean: 63.4 cm/sec MV E/A: 1.1 PA mean P.9 mmHg Med Peak E' [place]: 7.1 cm/sec PA Accel Time: 0.11 sec E/E' med: 11.3 Lat Peak E' [place]: 7.6 cm/sec E/E' lat: 10.5 E/e' average: 10.9 MV dec time: 0.21 sec SV(LVOT): 71.6 ml Reading Physician:05:15 PM
--- NOTE | 2022-05-15 06:03 | P.HP_ITS ---
History of Present Illness History of Present Illness Date Patient Seen: 05/15/22 Time Patient Seen: 06:03 Chief complaint: Chestpain hypoglycemic Narrative: Carlos Randall is a 66-year-old male with COPD, insulin-dependent type 2 diabetes, Parkinson's, Lewy body dementia, CAD, hypothyroidism, depression and chronic pain.? Patient was admitted for acute hypercapnic respiratory failure due to pneumonia with COPD exacerbation,acute kidney injury, encephalopathy and rhabdo on 05/12/22.? Patient improved and was discharged about 2-4pm on 05/14 and felt worse as the day progressed.? Patient states about an hour prior to calling EMS he began to feel shortness of breath with chest pain tried his albuterol at home which was helpful for the shortness of breath but no improvement in his chest pain or pressure. Patient reports the chest pain approximately left midclavicular line, no radiation, sharp, comes and goes, no precipitating factors, pain medication in the ED does relieve symptoms, shortness of breath does not correlate with chest pain, patient denies diaphoresis, no pain with palpation to chest wall. At the time of admit exam patient denied chest pain, having just received pain medication. Patient denies fever, chills, nausea, vomiting, diarrhea, constipation, oir urinary symptoms. He endorses a?productive cough with green sputum with his cough, chronic swelling of his extremities.? States he was discharged home with an antibiotic but has not filled the prescription yet. Patient also presented with hyperglycemia and a sedative not taken any insulin since being released from the hospital.? The hospital service was also notified that the patient after 48 hours had 1 bottle out of 2, positive blood cultures for gram positive Staphylococcus. Patient's vitals upon admit temp 98.7? BP 178/5, HR 79, RR 13, O2 saturation 97% on room air. WBC 12.7, with left shift neutrophils 10,400, HGB 12.7, HCT 36.3. Sodium 132, BUN 23, glucose 482, ALT 54, PT 13 but normal INR 1.2, D-dimer 239 age adjusted is WNL, lactate WNL, T CK a 51, CK-MB 8.75, CK-MB RI 1.0, troponin 1. 0.037, troponin 2. 0.041, BNP 1790. Patient's EKG demonstrated normal sinus rhythm with a rate of 790 ST or T-wave changes noted Q-wave in V1 and V2 these are no changes from previous EKG. Dr. Dowling in ED reports her read of chest x-ray is unchanged from previous. Patient to be admitted for bacteremia, chest pain, hyperglycemia. 05/12/2022 perH&P: Upon admit to the floor patient is febrile with a temp of 101?, BP 122/61, HR 99, RR slightly tachypneic at 18, patient on 4 L nasal cannula at 97%. ABGs pH 7.3, CO2 54, O2 104. Patient has an elevated WBC of 13 .4 with a left shift neutrophils 11,100, though procalcitonin and lactate are WNL. Sodium 134, creatinine elevated at 1.47, GFR decreased at 44, patient's ammonia lipase, and TSH all WNL. Patient does have a marked elevated total creatinine kinase at 1543, AST elevated at 73, CK-MB elevated at 53.40, initial troponin WNL but elevated above baseline 0.016. Patient's urinalysis negative for infection in ED no culture ordered. Patient's UDS is positive for THC benzodiazepines and oxycodone. Ketones are pending patient's head CT is negative for any acute intracranial processes at this time. Patient's chest x- ray demonstrated bilateral patchy indistinct airspace opacities possibly suggestive of pneumonia, with increased pulmonary vasculature prominence likely mild pulmonary edema. Patient History Medical History Bilateral otitis externa Borderline hyperlipidemia Cellulitis Chicken pox (1956) Chickenpox (1956) Chronic cough COPD (chronic obstructive pulmonary disease) Coronary artery disease (2006) Depression (2008) Diabetes (1994) Eczema Foot pain GERD (gastroesophageal reflux disease) (2012) Gout Hearing reduced Hip pain History of recurrent TIAs Hyperlipidemia Hypertension Hypothyroidism Kidney disease (2009) Measles (6) Measles (1955) Mental health assessment declined Mumps (1958) Mumps (1958) Neuropathy Obstructive sleep apnea Otitis externa Screening for malignant neoplasm of colon Shoulder pain Sleep apnea Status post myocardial infarction Steatosis Strain of muscle of right groin region (03/30/18) Type 2 diabetes mellitus Well adult exam Surgical History Anesthesia History of heart artery stent (2006) History of heart artery stent (2010) Hx of shoulder surgery (2005) Family & Social History Family History (Reviewed 05/15/22 @ 06:24 by Parris Neumann [facility]) Brother Age: 67 Diabetes mellitus Hyperlipidemia Mother Heart disease Hypertension Hyperlipidemia Diabetes mellitus Grandmother Diabetes mellitus Brother No problems noted. Sister Breast cancer Social History: household members none lives independently Yes Safety & Behavioral: Feels Safe in Current Yes Environment Tobacco & Substance use: Tobacco type cigarettes,cannabis/marijuana Smoking Status Current every day smoker alcohol intake current alcohol intake frequency 0-2 drinks per day Substance Use Type marijuana Meds Home Medications and Allergies Home Medications Medication Instructions Recorded Confirmed Type ipratropium 0.5 mg-albuterol 3 mg 3 ml INH QID #360 mL 03/12/19 03/06/22 Rx (2.5 mg base)/3 mL nebulization soln blood-glucose meter #1 ea 01/11/21 03/06/22 Rx Disabled Parking Permit #1 ea 02/15/21 03/06/22 Rx clopidogrel 75 mg tablet 75 mg PO DAILY #90 tabs 07/15/21 05/13/22 Rx methocarbamol 500 mg tablet 500 mg PO TID PRN mm tightness #90 08/19/21 05/13/22 Rx tabs insulin aspart U-100 100 unit/mL See Rx Instructions SUBCUT 10/22/21 03/06/22 Rx (3 mL) subcutaneous pen (Novolog .COMPLEX #15 mL Flexpen U-100 Insulin aspart) beclomethasone dipropionate 40 1 inh inhalation BID Shortness Of 11/18/21 03/06/22 Rx mcg/actuation HFA breath activated Breath #10.6 grams aerosol blood sugar diagnostic (Blood #100 ea 11/18/21 03/06/22 Rx Glucose Test strips) flash glucose scanning reader #1 ea 12/03/21 03/06/22 Rx (FreeStyle Timmy 2 [place]) flash glucose sensor (FreeStyle #1 ea 12/03/21 03/06/22 Rx Timmy 2 Sensor kit) levothyroxine 125 mcg tablet 125 mcg PO DAILY #90 tabs 12/09/21 03/06/22 Rx citalopram 40 mg tablet (Celexa) 40 mg PO DAILY #90 tabs 12/17/21 05/13/22 Rx triamcinolone acetonide 0.1 % 1 applic topical DAILY #30 grams 12/17/21 05/13/22 Rx topical cream lancets 33 gauge (BD Ultra Fine #100 ea 03/06/22 03/06/22 Rx Lancets) lorazepam 1 mg tablet 1 mg PO BID PRN sedation #60 tabs 03/11/22 Rx albuterol sulfate 90 mcg/actuation 2 puff inhalation QID PRN 03/14/22 05/13/22 Rx aerosol inhaler (Proventil HFA) shortness of breath #18 grams insulin glargine U-300 conc 300 80 unit (0.2667 mL) SUBCUT BID #15 04/21/22 Rx unit/mL (3 mL) subcutaneous pen mL pen needle, diabetic 31 gauge x #100 ea 04/23/22 Rx 5/16 (Comfort EZ Pen [place]) atorvastatin 80 mg tablet 80 mg PO 1XD 05/13/22 05/13/22 History bupropion HCl 300 mg 24 hr tablet, 300 mg PO 1XD 05/13/22 05/13/22 History extended release gabapentin 300 mg capsule 300 mg PO 2XD 05/13/22 05/13/22 History levothyroxine 125 mcg tablet 125 mcg PO 1XD 05/13/22 05/13/22 History lorazepam 1 mg tablet 1 mg PO 2XD 05/13/22 05/13/22 History omeprazole 20 mg capsule,delayed 20 mg PO 1XD 05/13/22 05/13/22 History release oxycodone 5 mg tablet 5 mg PO Q4-6H PRN Pain, Moderate 05/13/22 05/13/22 History quetiapine 25 mg tablet 25 mg PO BEDTIME 05/13/22 05/13/22 History amoxicillin 500 mg-potassium 1 tab PO Q8H #14 tabs 05/14/22 Rx clavulanate 125 mg tablet (Augmentin) Allergies Allergy/AdvReac Type Severity Reaction Status Date / Time adhesive Allergy Mild REDNESS/ITC Verified 03/06/22 13:12 HINESS morphine Allergy Verified 03/06/22 13:12 Review of Systems Review of Systems Narrative: All 12 point systems reviewed with the patient and are negative except otherwise documented. Exam Vital Signs (past 8 hours): - 05/15/22 02:22 05/15/22 03:49 05/15/22 04:00 Temperature 98.7 F Pulse Rate 80 79 Respiratory Rate 21 9 L Blood Pressure 150/78 H 178/85 H Pulse Oximetry 99 98 Oxygen Delivery Method Room Air 05/15/22 04:00 05/15/22 04:30 05/15/22 04:31 Temperature Pulse Rate 79 79 Respiratory Rate 13 18 Blood Pressure 167/77 H Pulse Oximetry 97 96 Oxygen Delivery Method 05/15/22 04:31 05/15/22 05:00 Temperature Pulse Rate 80 79 Respiratory Rate 16 18 Blood Pressure Pulse Oximetry 96 96 Oxygen Delivery Method Oxygen Delivery Method Room Air Narrative Exam Narrative: General:? Patient is an elderly male, alert and orientated, in no acute distress at this time. HEENT:? Normocephalic, atraumatic, extraocular muscles intact, oral pharynx is clear and mucous membranes are moist.? Neck is supple and symmetric, trachea is midline, no adenopathy, no thyroid enlargement, nontender, no masses palpated.? Negative for JVD Chest:? Normal AP diameter and contour without kyphoscoliosis, no nasal flaring, retractions. Positive tachypneic, mildly labored breathing. Lungs:? Auscultation of all lung pascual are coarse, wet in bases, decreased but equal with expiratory wheezing throughout, without rhonchi, or rales. Cardio:? S1 & S2 with regular mildly tachycardic rate and rhythm without murmur, rubs, or gallops, no carotid bruit, no cardiac pulsations present. Abdomen:? Soft nontender, distended, negative for organomegaly.? Noted 4 silver dollar size firm fixed discrete skin colored raised masses without fluctuation from mid upper abd in a curved line to right upper /lower mid-line. Nontender likely multiple lipomas. Bowel sounds are present in all 4 quadrants without guarding or rebound, no CVA tenderness. Musculoskeletal:? Muscle tone is equal, but decreased in lower extremities, no deformity, crepitus, effusions, cyanosis, clubbing or edema present.? Patient has mild erythema present to bilateral anterior shins, with a healed abrasion to right anterior weston. Full range of motion intact radial and pedal pulses are normal.? Patient is able to move extremities with full range of motion, at baseline he is wheelchair dependent, with impaired transfer ability from bed or couch to wheelchair requiring in-home care and assistance. Skin:? Very Warm to touch dry and intact without rashes, ulcerations or petechiae.? Neuro:? Alert and orientated x3, sensation to touch intact, no observed gross deficits of cranial nerves. Psych:? Patient has a well-kept appearance, appropriate affect, mental status, thought context & judgments for his age. Objective Labs Result Diagrams: 05/15/22 02:22 05/15/22 04:25 Labs: Laboratory Results - last 24 hr 05/15/22 05/15/22 05/15/22 02:20 02:22 02:22 WBC 12.7 H RBC 4.14 L Hgb 12.7 L Hct 36.3 L MCV 87.8 MCH 30.6 MCHC 34.9 RDW 14.9 H Plt Count 215 Neut % (Auto) 81.5 H Lymph % (Auto) 11.6 L [place] % (Auto) 6.7 Eos % (Auto) 0.0 L Baso % (Auto) 0.2 Neut # (Auto) 62923 H Lymph # (Auto) 1500 [place] # (Auto) 800 Eos # (Auto) 0 Baso # (Auto) 0 PT 13.0 H INR 1.2 APTT 30 D-Dimer 239 H Sodium Potassium Chloride Carbon Dioxide BUN Creatinine Estimated GFR BUN/Creatinine Ratio Glucose Lactate Calcium Total Bilirubin AST ALT Alkaline Phosphatase Total Creatine Kinase CK-MB (CK-2) CK-MB (CK-2) Rel Index Troponin I NT-Pro-B Natriuret Pep Total Protein Albumin Globulin Albumin/Globulin Ratio Lipase Procalcitonin SARS-CoV-2 (PCR) 05/15/22 05/15/22 05/15/22 02:22 02:22 03:50 WBC RBC Hgb Hct MCV MCH MCHC RDW Plt Count Neut % (Auto) Lymph % (Auto) [place] % (Auto) Eos % (Auto) Baso % (Auto) Neut # (Auto) Lymph # (Auto) [place] # (Auto) Eos # (Auto) Baso # (Auto) PT INR APTT D-Dimer Sodium 132 L Potassium 4.2 Chloride 98 Carbon Dioxide 26 BUN 23 H Creatinine 0.81 Estimated GFR > 60 BUN/Creatinine Ratio 28.4 H Glucose 482 H D Lactate 1.8 Calcium 9.0 Total Bilirubin 0.5 AST 59 ALT 54 H Alkaline Phosphatase 81 Total Creatine Kinase 851 H D CK-MB (CK-2) 8.75 H CK-MB (CK-2) Rel Index 1.0 L Troponin I 0.037 H NT-Pro-B Natriuret Pep 1790 H Total Protein 6.8 Albumin 3.7 Globulin 3.1 Albumin/Globulin Ratio 1.2 Lipase 71 D Procalcitonin 0.09 SARS-CoV-2 (PCR) Negative 05/15/22 05/15/22 04:25 04:25 WBC RBC Hgb Hct MCV MCH MCHC RDW Plt Count Neut % (Auto) Lymph % (Auto) [place] % (Auto) Eos % (Auto) Baso % (Auto) Neut # (Auto) Lymph # (Auto) [place] # (Auto) Eos # (Auto) Baso # (Auto) PT INR APTT D-Dimer Sodium Potassium Chloride Carbon Dioxide BUN Creatinine Estimated GFR BUN/Creatinine Ratio Glucose 400 H Lactate Calcium Total Bilirubin AST ALT Alkaline Phosphatase Total Creatine Kinase CK-MB (CK-2) CK-MB (CK-2) Rel Index Troponin I 0.041 H NT-Pro-B Natriuret Pep Total Protein Albumin Globulin Albumin/Globulin Ratio Lipase Procalcitonin SARS-CoV-2 (PCR) Assessment & Plan Assessment & Plan narrative: 1. Chest pain, acute present on admission -no EKG changes, CK-MB 8.75, CK-MB RI 1.0, troponin 1. 0.037, troponin 2. 0.041-these are likely elevated due to demand secondary to recent hospitalization and infection. -Continue Plavix, atorvastatin, ASA -Nitro for CP -Stress/Echo ordered -Telemonitoring 2. Bacteremia due to Gram-positive Staphylococcus, acute, present on admission -1 positive blood culture after 48 hours -Blood cultures x2 recollected in ED -Vanco given in ED -Vanco per pharmacy & Daptomycin QD 3. Shortness of breath due to COPD exacerbation, acute on chronic, present on admission -05/12/22 Labs:WBC 13.4, neutrophils 11,100, lactate and procalcitonin WNL -Today labs are trending WBC 12.7, neutrophils 10,400 lactate,procalcitonin, and lipase WNL -respiratory consult:? DuoNeb q.4 hours while awake, prednisone 40 mg q.day x5 -continue patient's inhalers Atrovent, QVAR, albuterol -monitor patient for pulmonary edema, fluid overload. -chest x-ray reported by read from Dr. Dc in ED no significant changes or worsening. 4. Hyperglycemia secondary to, Insulin-dependent type 2 diabetes, uncontrolled, with neuropathy, chronic, as a result of borderline hyperlipidemia, chronic, present on admission -patient admitted under diabetes protocol. -A1C 05/13/22 12.2 -continue Lantus 40U BID, -Continue gabapentin -high dose insulin sliding scale with blood sugar checks ACHS -low-carbohydrate diet --not in DKA, no gap. 5. Parkinson's disease, chronic, present on admission. -No current Sinemet or other treatments 6. Lewy Body Dementia, chronic, without behavioral disturbance, present on admission.? -Continue Seroquel -Concerned as to medication management with marijuana use. 7. CAD, chronic, with borderline hyperlipidemia, chronic, present on admission -continue plavix, Atorvastatin. 8. Hypothyroidism, acquired, chronic, present on admission -Continue Levothyroxine -TSH ordered 9. Depression with anxiety, chronic, present on admission -Will Hold due to over-sedation on 05/12/2022: Wellbutrin 300 mg q.h.s., lorazepam 1 mg BID PRN, Celexa 40mg QD 10. Chronic pain management, chronic, present on admission -Holding due to over sedation on 05/12/22: oxycodone 5 mg as needed Q 4-6 hours, Robaxin 500 mg t.i.d. 11. GERD, chronic, present on admission -continue omeprazole ? ? Code status:Full Surrogate decision maker: IZABELLA SHARP PCR:Negative DVT/VTE prophylaxis:? SCDs Lovenox 30 Disposition:? Patient admitted for observation for chest pain bacteremia and shortness of breath secondary to COPD exacerbation hyperglycemia, expected length of stay less than 2 midnights. I have utilized all available immediate resources to obtain, update, or review the patient's current medications. I confirmed that the patient's advanced care plan is present, Code status is documented and/or surrogate decision maker is listed in the patient's medical record. ? Time Spent With Patient Critical Care time: I spent a total of [] minutes of critical care time on this patient's care today; this time is exclusive of procedural time.
[2022-05-15 06:12] LABS: Cholesterol 114 mg/dL (140-199); HDL Cholesterol 37 mg/dL (40-60); LDL Cholesterol Calculated 55 mg/dL (<100); Magnesium 1.4 mg/dL (1.6-2.3); Triglycerides 112 mg/dL (35-150)
[2022-05-15] MEDS: MAGNESIUM SULFATE 2 GM/50 ML PIGGYBACK IV (06:48)
[2022-05-15] MEDS: ACETAMINOPHEN 325 MG TABLET 650 MG PO (06:48)
--- NOTE | 2022-05-15 07:49 | PC.NURSE ---
Spoke to MAEVE. Pt scheduled for ECHO today, potentially will not be able to receive ECHO until tomorrow.
[2022-05-15 08:27] LABS: Appearance Urine UA CLEAR; Bilirubin Urine UA NEGATIVE (NEGATIVE); Color Urine UA YELLOW; Glucose Urine UA 2+ g/dL (Negative); Ketones Urine UA NEGATIVE (NEGATIVE); Leukocyte Esterase Urine UA NEGATIVE (NEGATIVE); Nitrite Urine UA NEGATIVE (Negative); Occult Blood Urine UA 1+ (Negative); Protein Urine UA 2+ (Negative); Specific Gravity Urine UA <=1.005 (1.000-1.035); Urobilinogen Urine UA 0.2 E.U./dL (0.2)
[2022-05-15 08:54] LABS: Bacteria Urine None Seen; Culture Indicated Urine Cult Not Indicated; RBC Urine None Seen (0-5/HPF); Squamous Epithelial Cell Urine None Seen (0-5/HPF); WBC Urine None Seen (0-5/HPF)
[2022-05-15] MEDS: SODIUM CHLORIDE 0.9% 1,000 ML 60 ML IV (08:58)
[2022-05-15] MEDS: ATORVASTATIN 20 MG TABLET 80 MG PO (09:00)
[2022-05-15] MEDS: ASPIRIN 325 MG TABLET PO (09:00)
[2022-05-15] MEDS: GABAPENTIN 300 MG CAPSULE PO ×2 (09:00→20:22)
[2022-05-15] MEDS: ENOXAPARIN 40 MG/0.4 ML SYRINGE SUBCUT (09:00)
[2022-05-15] MEDS: CITALOPRAM 10 MG TABLET 40 MG PO (09:01)
[2022-05-15] MEDS: CLOPIDOGREL 75 MG TABLET PO (09:01)
[2022-05-15] MEDS: INSULIN LISPRO 100 UNIT/ML 3ML VIAL SUBCUT ×4 (09:04→20:23)
[2022-05-15] MEDS: INSULIN GLARGINE 100 UNIT/ML 3ML PEN 40 UNIT SUBCUT ×2 (09:11→20:22)
[2022-05-15 09:47] LABS: Thyroid Stimulating Hormone 1.27 uIU/mL (0.47-4.68)
[2022-05-15] MEDS: SODIUM CHLORIDE 0.9% IV (10:09)
[2022-05-15] MEDS: DAPTOMYCIN IV (10:09)
[2022-05-15] MEDS: BUDESONIDE 0.5 MG/2 ML NEB INH ×2 (11:05→20:55)
[2022-05-15] MEDS: ALBUTEROL 2.5 MG/3 ML NEB (ADULT) INH (11:05)
[2022-05-15 11:12] LABS: Troponin I 0.026 ng/mL (0.01-0.034)
--- NOTE | 2022-05-15 11:17 | CM.DANOTE ---
Initial DCP Assessment Note Pt is a 66 yo male, resident of [place], discharged from yesterday after hospital stay for weakness and resp. failure; readmits with complaint of not feeling well Patient admitted for observation for chest pain bacteremia and shortness of breath secondary to COPD exacerbation hyperglycemia PMH includes LB dementia, Parkinsons, DM2, CAD, COPD, depression Payer: [facility] Medicare and Medicaid PCP: Gasper Rutherford Reviewed assessment completed 05.13.22 by RN Dariana Mead, confirmed w/patient details remain same: Patient lives alone in an apartment in [place]. His son and grandaughter help manage his needs. His son works nights and this DCP unable to get a hold of him today, but left message. Patient tells me that he manages his ADLs by himself at home. He is wheelchair bound and transfers self to toilet and bath bench and prepares his frozen meals as well as receives meals on wheels. Plan: DC home w/family expected, caregiver x1 weekly and resumption of [facility] LYN Lozoya Discharge Planning/Care Management Discharge Assessment Start: 05/15/22 11:01 Freq: Status: Active Protocol: Document 05/15/22 11:02 KAYKAY (Rec: 05/15/22 11:17 KAYKAY [id number]) Discharge Planning Assessment Assigned Construction Flagger LYN Carrion DPOA/Assigned Designee Name adrienne Javier Contact Information [phone] (works nights per chart review) Advance Directives? Yes: polst Advance Directives on File No History Provided By Medical Record Has Patient been admitted in last 30 Yes days? Comment 05.12.22-05.14.22 Prior Living Arrangements Apartment/Condo Household Members none Type of transporation used prior to Relies on Others admit Comment Family checks on patient, caregiver on Wednesdays to assist with house chores, meals on wheels, [facility] referral confirmed upon DC yesterday Independent with ADL's Yes: Indp w/ADLs, w/c bound but able to self transfer Is patient alert and oriented? Yes Needs Assistance With Meal Prep,Managing Medications ,Home Chores / Shopping Comment Patient also with motorized wheelchair. Patient states he manages his ADLs, wants to remain as indp in home for as long as possible Patient/Family Preference Home with Home Health Comment Pending outcome of hospitalization. Discharge Plan Home with Home Health Transportation Arrangement Family can provide transport. Referrals Initiated Home Health Medicare Choice List Provided Yes SNF/HH Preference [facility] Review Status In Process
--- NOTE | 2022-05-15 18:19 | PC.NURSE ---
Pt is admitted from ED around 0745 with PNA, SOB and chest pain. VSS, pt denies pain. VSS, BG-275/259/220 today and pt recieved coverage for those. Pt is on tele and it is SR. Pt is on RA and sats fine. Lungs diminished on bases and posterior. Otherwise, pt is doing well. Pt has Echo done today and it wasn't remarkable. Pt will have stress on test on Thursday so pt should not have caffeine after lunch on Thursday and NPO after midnight on Thursday. No other changes Continue monitor.
[2022-05-15] MEDS: QUETIAPINE 25 MG TABLET PO (20:22)
[2022-05-16] VITALS (13 sets, daily range): BP systolic 123–185; BP diastolic 72–92; PULSE 64–86; RESP 14–18; TEMP 36.8–37.2; O2SAT 94–97
[2022-05-16] MEDS: SODIUM CHLORIDE 0.9% 1,000 ML 60 ML IV (00:23)
[2022-05-16] MEDS: PANTOPRAZOLE DR 20 MG TABLET PO (06:21)
[2022-05-16] MEDS: LEVOTHYROXINE 125 MCG TABLET PO (06:22)
[2022-05-16 06:39] LABS: Add Manual Diff / Slide Review NO; Basophils Absolute Auto 0 /uL (0-100); Basophils Percent Auto 0.2 % (0-2); Eosinophils Absolute Auto 100 /uL (0-450); Eosinophils Percent Auto 1.2 % (2-4); Hematocrit 40.2 % (41-53); Hemoglobin 14.2 g/dL (13.5-17.5); Lymphocytes Absolute Auto 2200 /uL (1100-4500); Lymphocytes Percent Auto 21.3 % (25-40); Mean Corpuscular HGB Conc 35.2 % (30-36); Mean Corpuscular Volume 87.9 fL (80-100); Monocytes Absolute Auto 900 /uL (0-900); Monocytes Percent Auto 8.7 % (3-14); Neutrophils Absolute Auto 7100 /uL (1500-7000); Neutrophils Percent Auto 68.6 % (50-75); Platelet Count 260 X10^3/uL (150-400); Red Blood Cell Count 4.57 X10^6/uL (4.5-5.9); Red Cell Distribution Width 14.6 % (11.6-14.8); White Blood Cell Count 10.4 X10^3/uL (4.5-11.0)
[2022-05-16 06:57] LABS: Alanine Aminotransferase 54 IU/L (<50); Albumin 3.8 g/dL (3.5-5.0); Albumin Globulin Ratio 1.1 (1.0-2.8); Alkaline Phosphatase 79 U/L (38-126); Aspartate Aminotransferase 44 IU/L (17-59); BUN Creatinine Ratio 22.6 (6-22); Bilirubin Total 0.7 mg/dL (0.2-1.3); Blood Urea Nitrogen 14 mg/dL (9-20); Calcium 8.8 mg/dL (8.4-10.2); Carbon Dioxide 28 mmol/L (22-32); Chloride 105 mmol/L (98-107); Estimated Glomerular Filt Rate > 60 mL/min (>60); Globulin 3.4 g/dL (1.7-4.1); Glucose 76 mg/dL (80-110); HEMOLYSIS < 15 (0-50); Potassium 3.5 mmol/L (3.4-5.1); Sodium 139 mmol/L (137-145); Total Protein 7.2 g/dL (6.3-8.2)
[2022-05-16] MEDS: BUDESONIDE 0.5 MG/2 ML NEB INH ×2 (09:39→20:10)
[2022-05-16] MEDS: ASPIRIN 325 MG TABLET PO (10:10)
[2022-05-16] MEDS: CLOPIDOGREL 75 MG TABLET PO (10:10)
[2022-05-16] MEDS: ATORVASTATIN 20 MG TABLET 80 MG PO (10:10)
[2022-05-16] MEDS: GABAPENTIN 300 MG CAPSULE PO ×3 (10:11→21:52)
[2022-05-16] MEDS: ENOXAPARIN 40 MG/0.4 ML SYRINGE SUBCUT (10:11)
[2022-05-16] MEDS: CITALOPRAM 10 MG TABLET 40 MG PO (10:11)
[2022-05-16] MEDS: INSULIN GLARGINE 100 UNIT/ML 3ML PEN 30 UNIT SUBCUT ×2 (12:40→21:21)
[2022-05-16] MEDS: INSULIN LISPRO 100 UNIT/ML 3ML VIAL SUBCUT ×3 (12:41→21:20)
[2022-05-16 15:01] LABS: Vancomycin Trough < 5.0 ug/mL (10-20)
--- NOTE | 2022-05-16 15:33 | CM.DPNOTE ---
Addendum entered by LYN Nieves 05/17/22 11:07: ADD: Dr Guadalupe did not discharge patient home yesterday, patient will remain at awaiting stress test scheduled Thursday. Patient remains observation at this time. MARLEE RN likely to review this today CM team will plan to review referral w/[facility] but in order to DC to SNF, a SNF auth from [facility] ([facility]) will need to be secured CM team will plan to follow closely. [facility] has been updated JW Original Note: DC Note DC expected this evening, w/family and resumption of [facility] Placed call to Shannan peguero/ [place], had to LM alerting her of patient's DC JW
[2022-05-16] MEDS: POTASSIUM CHLORIDE 20 MEQ/15 ML UDC 40 MEQ PO (15:41)
--- NOTE | 2022-05-16 15:51 | PM.DS.1 ---
History of Present Illness <Helen Guadalupe MD - Last Filed: 05/16/22 19:45> History of Present Illness Chief complaint: Chestpain hypoglycemic Discharge Providers <Helen Guadalupe MD - Last Filed: 05/16/22 19:45> Provider Date of admission: 05/15/22 05:36 Primary care physician: Gasper Rutherford, DO Discharge provider: Helen Guadalupe MD <Paddy Aiken MD - Last Filed: 05/18/23 18:22> Provider Discharge Date: 05/10/22 Summary <Helen Guadalupe MD - Last Filed: 05/16/22 19:45> Hospital Course Discharge Diagnosis: 1. Exam <Helen Guadalupe MD - Last Filed: 05/16/22 19:45> Vital Signs (past 8 hours): - 05/16/22 08:45 05/16/22 09:39 05/16/22 09:00 Temperature 98.6 F Pulse Rate 84 77 Respiratory Rate 18 14 Blood Pressure 164/88 H Pulse Oximetry 97 95 95 Oxygen Delivery Method Room Air Room Air Oxygen Flow Rate 0 0 05/16/22 13:50 05/16/22 14:53 Temperature 98.7 F Pulse Rate 68 Respiratory Rate 18 Blood Pressure 161/84 H Pulse Oximetry 95 95 Oxygen Delivery Method Room Air Oxygen Flow Rate 0 0 Oxygen Delivery Method Room Air Oxygen Flow Rate 0 Objective <Helen Guadalupe MD - Last Filed: 05/16/22 19:45> Labs 05/17/22 06:42 05/17/22 06:42 Labs: Laboratory Results - last 24 hr 05/16/22 05/16/22 05/16/22 06:13 06:13 14:30 WBC 10.4 RBC 4.57 Hgb 14.2 Hct 40.2 L MCV 87.9 MCH 31.0 MCHC 35.2 RDW 14.6 Plt Count 260 Neut % (Auto) 68.6 Lymph % (Auto) 21.3 L Grady % (Auto) 8.7 Eos % (Auto) 1.2 L Baso % (Auto) 0.2 Neut # (Auto) 7100 H Lymph # (Auto) 2200 Grady # (Auto) 900 Eos # (Auto) 100 Baso # (Auto) 0 Sodium 139 Potassium 3.5 Chloride 105 Carbon Dioxide 28 BUN 14 Creatinine 0.62 L Estimated GFR > 60 BUN/Creatinine Ratio 22.6 H Glucose 76 L D Calcium 8.8 Total Bilirubin 0.7 AST 44 ALT 54 H Alkaline Phosphatase 79 Total Protein 7.2 Albumin 3.8 Globulin 3.4 Albumin/Globulin Ratio 1.1 Vancomycin Trough < 5.0 L PFSH <Helen Guadalupe MD - Last Filed: 05/16/22 19:45> Medical History Bilateral otitis externa Borderline hyperlipidemia Cellulitis Chicken pox (1956) Chickenpox (1956) Chronic cough COPD (chronic obstructive pulmonary disease) Coronary artery disease (2006) Depression (2008) Diabetes (1994) Eczema Foot pain GERD (gastroesophageal reflux disease) (2012) Gout Hearing reduced Hip pain History of recurrent TIAs Hyperlipidemia Hypertension Hypothyroidism Kidney disease (2009) Measles (1955) Measles (1955) Mental health assessment declined Mumps (1958) Mumps (1958) Neuropathy Obstructive sleep apnea Otitis externa Screening for malignant neoplasm of colon Shoulder pain Sleep apnea Status post myocardial infarction Steatosis Strain of muscle of right groin region (03/30/18) Type 2 diabetes mellitus Well adult exam Surgical History Anesthesia History of heart artery stent (2006) History of heart artery stent (2010) Hx of shoulder surgery (2005) Family History Brother Age: 68 Diabetes mellitus Hyperlipidemia Mother Heart disease Hypertension Hyperlipidemia Diabetes mellitus Grandmother Diabetes mellitus Brother No problems noted. Sister Breast cancer Social History marital status: details: 3 years ago household members: none lives independently: Yes housing: apartment Smoking Status: Current every day smoker Tobacco: How many years used: 45 alcohol intake: current Discharge Assessment & Plan <Helen Guadalupe MD - Last Filed: 05/16/22 19:45> Assessment and Plan Assessment: Acute Hypercapnic Respiratory Failure 2. ISA 3. TYpe 2 diabetes 4. Parkinson's Disease 5. Hypothyroidism 6. Depression 7. GERD 8. Chronic Pain 9. Pneumonia, probable aspiration Plan of Treatment: Discharge home Discharge Plan Discharge Plan Patient Disposition: Home Provider Discharge Comment: Your stress test was negative. Please follow-up w/your fresh work wrapper layer soon and your PCP in the next week or so. Take Augmentin tonight, 2 doses tomorrow night, and then stop. Discharge orders & Medications Prescriptions: Continued (DME) blood-glucose meter Kit See Rx Instructions .ROUTE .MEDSUPPLY Qty: 1 0RF Rx Instructions: Use to test blood glucose BID (DME) Disabled Parking Permit See Rx Instructions .ROUTE .MEDSUPPLY Qty: 1 0RF Rx Instructions: Valid for 5 years methocarbamol 500 mg tablet 500 mg PO TID PRN (Reason: mm tightness) Qty: 90 1RF triamcinolone acetonide 0.1 % cream 1 applic TOP DAILY Qty: 30 5RF beclomethasone dipropionate 40 mcg/actuation HFA aerosol breath activated 1 inh Inhalation BID Qty: 10.6 5RF ipratropium-albuterol 0.5 mg-3 mg(2.5 mg base)/3 mL Solution For Nebulization 3 ml INH QID Qty: 360 0RF No Action tamsulosin 0.4 mg capsule 0.4 mg PO BEDTIME Qty: 90 3RF (DME) pen needle, diabetic [Comfort EZ Pen [place]] 31 gauge x 5/16 needle See Dose Instructions .ROUTE .MEDSUPPLY Qty: 100 5RF Dose Instruction: As directed Rx Instructions: Use to inject insulin 5 times per day (DME) lancets [BD Ultra Fine Lancets] 33 gauge misc See Rx Instructions .ROUTE .MEDSUPPLY Qty: 100 6RF Rx Instructions: Use to test blood glucose twice daily (DME) Blood Glucose Test Strip See Rx Instructions .ROUTE .MEDSUPPLY Qty: 100 6RF Rx Instructions: Use to test blood glucose twice daily. (DME) FreeStyle Timmy 2 Timblin Misc See Rx Instructions .ROUTE .MEDSUPPLY Qty: 1 12RF Rx Instructions: As directed levothyroxine 125 mcg tablet 125 mcg PO DAILY Qty: 90 3RF quetiapine 25 mg tablet 25 mg PO BEDTIME Qty: 90 3RF atorvastatin 80 mg tablet 80 mg PO DAILY Qty: 90 3RF bupropion HCl 300 mg tablet extended release 24 hr 300 mg PO DAILY Qty: 90 3RF (DME) flash glucose sensor Kit See Rx Instructions .Route Qty: 1 3RF Rx Instructions: Use to check blood sugars twice daily. citalopram [Celexa] 40 mg tablet 40 mg PO DAILY Qty: 90 0RF Rx Instructions: NEEDS TO BE SEEN IN PERSON lorazepam 1 mg tablet 1 mg PO 2XD Qty: 60 1RF gabapentin 300 mg capsule See Rx Instructions .ROUTE .COMPLEX Qty: 60 2RF Dose Instruction: TAKE 1 CAPSULE BY MOUTH TWICE DAILY Rx Instructions: TAKE 1 CAPSULE BY MOUTH TWICE DAILY albuterol sulfate [Proventil HFA] 90 mcg/actuation HFA aerosol inhaler 2 puff INHALATION QID PRN (Reason: shortness of breath) Qty: 18 5RF omeprazole 20 mg capsule,delayed release(DR/EC) 20 mg PO DAILY Qty: 30 3RF ipratropium-albuterol 0.5 mg-3 mg(2.5 mg base)/3 mL solution for nebulization See Rx Instructions .ROUTE .COMPLEX Qty: 90 1RF Dose Instruction: USE 3 ML VIA NEBULIZER EVERY 4 TO 6 HOURS NEEDED FOR SHORTNESS OF BREATH OR WHEEZING Rx Instructions: USE 3 ML VIA NEBULIZER EVERY 4 TO 6 HOURS NEEDED FOR SHORTNESS OF BREATH OR WHEEZING oxycodone 5 mg tablet 5 mg PO Q4-6H PRN (Reason: Pain, Moderate) Qty: 60 0RF nystatin 100,000 unit/gram powder 1 applic topical TID PRN (Reason: Tinea cruris) Qty: 30 1RF insulin glargine U-300 conc 300 unit/mL (3 mL) insulin pen 90 unit SUBCUT BID Qty: 15 11RF Novolog FlexPen U-100 Insulin 100 unit/mL (3 mL) insulin pen See Rx Instructions SUBCUT .COMPLEX Qty: 15 11RF Rx Instructions: 10 units a.c. t.i.d. depending on carbohydrate content of meal Medication counseling provided by Pharmacist: No Follow up/Referrals: Gasper Rutherford, DO [Primary Care Provider] - Diet/Activity/Treatments Diet: Carb-consistent/Diabetic, Low-fat and Low-cholesterol Activity: As tolerated Oxygen: N/A Visit Report/Discharge Packet Visit Report Forms: Patient Portal/API, Stroke Signs & Symptoms Discharge Data Primary Care Provider: Gasper Rutherford Attending Provider: Parris Neumann Admit Date/Time: 05/15/22 05:36 Discharges patient from system. Discharge Date/Time: 05/20/22 18:27
--- NOTE | 2022-05-16 17:00 | PM.PN.1 ---
Subjective Subjective Date Patient Seen: 05/16/22 Interval history: Patient denies chest pain or shortness of breath today. He states yesterday he felt ill, had chest pain and shortness of breath. He actually feels back to his baseline. Exam Vital Signs (past 8 hours): - 05/16/22 09:39 05/16/22 13:50 05/16/22 14:53 Temperature 98.7 F Pulse Rate 77 68 Respiratory Rate 14 18 Blood Pressure 161/84 H Pulse Oximetry 95 95 95 Oxygen Delivery Method Room Air Room Air Oxygen Flow Rate 0 0 Oxygen Delivery Method Room Air Oxygen Flow Rate 0 Narrative Exam Narrative: Pleasant elderly male in no acute distress Resp Other: Lungs: decreased breath sounds but clear to ausculatation Cardio Other: RRR nl Sl S2 2/6 ALFREDA GI Other: Abd: soft/ non tender/ non distended Extrem Other: NO Edema Objective Labs Result Diagrams: 05/16/22 06:13 05/16/22 06:13 Labs: Laboratory Results - last 24 hr 05/16/22 05/16/22 05/16/22 06:13 06:13 14:30 WBC 10.4 RBC 4.57 Hgb 14.2 Hct 40.2 L MCV 87.9 MCH 31.0 MCHC 35.2 RDW 14.6 Plt Count 260 Neut % (Auto) 68.6 Lymph % (Auto) 21.3 L [place] % (Auto) 8.7 Eos % (Auto) 1.2 L Baso % (Auto) 0.2 Neut # (Auto) 7100 H Lymph # (Auto) 2200 [place] # (Auto) 900 Eos # (Auto) 100 Baso # (Auto) 0 Sodium 139 Potassium 3.5 Chloride 105 Carbon Dioxide 28 BUN 14 Creatinine 0.62 L Estimated GFR > 60 BUN/Creatinine Ratio 22.6 H Glucose 76 L D Calcium 8.8 Total Bilirubin 0.7 AST 44 ALT 54 H Alkaline Phosphatase 79 Total Protein 7.2 Albumin 3.8 Globulin 3.4 Albumin/Globulin Ratio 1.1 Vancomycin Trough < 5.0 L PFSH Medical History Bilateral otitis externa Borderline hyperlipidemia Cellulitis Chicken pox (7) Chickenpox (1956) Chronic cough COPD (chronic obstructive pulmonary disease) Coronary artery disease (2006) Depression (2008) Diabetes (1994) Eczema Foot pain GERD (gastroesophageal reflux disease) (2012) Gout Hearing reduced Hip pain History of recurrent TIAs Hyperlipidemia Hypertension Hypothyroidism Kidney disease (2009) Measles (1955) Measles (1955) Mental health assessment declined Mumps (1958) Mumps (1958) Neuropathy Obstructive sleep apnea Otitis externa Screening for malignant neoplasm of colon Shoulder pain Sleep apnea Status post myocardial infarction Steatosis Strain of muscle of right groin region (03/30/18) Type 2 diabetes mellitus Well adult exam Surgical History Anesthesia History of heart artery stent (2006) History of heart artery stent (2010) Hx of shoulder surgery (2005) Family History Brother Age: 67 Diabetes mellitus Hyperlipidemia Mother Heart disease Hypertension Hyperlipidemia Diabetes mellitus Grandmother Diabetes mellitus Brother No problems noted. Sister Breast cancer Social History marital status: details: 3 years ago household members: none lives independently: Yes housing: apartment Smoking Status: Current every day smoker Tobacco: How many years used: 45 alcohol intake: current Assessment & Plan Assessment & Plan narrative: Chest pain, acute present on admission -no EKG changes, CK-MB 8.75, CK-MB RI 1.0, troponin 1.? 0.037, troponin 2.? 0.041-these are likely elevated due to demand secondary to recent hospitalization and infection. -Continue Plavix, atorvastatin, ASA -Nitro for CP -Stress/Echo ordered -Telemonitoring -Unable to get stress test today, Will order Stress test Thursday Patient has Type 2 LA -echo findings -Normal left ventricular thickness, size, and systolic function (EF 55-60%). 2) Unable to rule out mid inferolateral wall hypokinesis due to inadequate visualization. 3) Mildly dilated right ventricle with normal function. 4) No significant valvular abnormalities. 5) Compared to the Echo done 10/27/2020, wall motion abnormality as noted above may be present on this study. Will get Stress test Thursday 2. Bacteremia due to Gram-positive Staphylococcus, acute, present on admission -1 positive blood culture after 48 hours -Blood cultures x2 recollected in ED -Vanco given in ED -Vanco per pharmacy & Daptomycin QD -/ blood cultures coag negative staph, this is a contaminant -therefore will discontinue Vanco and daptomycin 3. Shortness of breath due to COPD exacerbation, acute on chronic, present on admission -05/12/22 Labs:WBC 13.4, neutrophils 11,100, lactate and procalcitonin WNL -Today labs are trending WBC 12.7, neutrophils 10,400 lactate,procalcitonin, and lipase WNL -respiratory consult:? DuoNeb q.4 hours while awake, no prednisione indicated -continue patient's inhalers Atrovent, QVAR, albuterol -monitor patient for pulmonary edema, fluid overload. -chest x-ray reported by read from Dr. Dc in ED no significant changes or worsening. 4. Hyperglycemia secondary to, Insulin-dependent type 2 diabetes, uncontrolled, with neuropathy, chronic, as a result of borderline hyperlipidemia, chronic, present on admission -patient admitted under diabetes protocol. -A1C 05/13/22 12.2 -continue Lantus 40U BID, -Continue gabapentin -high dose insulin sliding scale with blood sugar checks ACHS -low-carbohydrate diet --not in DKA, no gap. -hypoglycemic this morning -decrease lantus to 30 units BID 5. Parkinson's disease, chronic, present on admission. -No current Sinemet or other treatments 6. Lewy Body Dementia, chronic, without behavioral disturbance, present on admission.? -Continue Seroquel -Concerned as to medication management with marijuana use. 7. CAD, chronic, with borderline hyperlipidemia, chronic, present on admission -continue plavix, Atorvastatin. 8. Hypothyroidism, acquired, chronic, present on admission -Continue Levothyroxine -TSH ordered 9. Depression with anxiety, chronic, present on admission -Will Hold due to over-sedation on 05/12/2022: Wellbutrin 300 mg q.h.s., lorazepam 1 mg BID PRN, Celexa 40mg QD 10. Chronic pain management, chronic, present on admission -Holding due to over sedation on 05/12/22: oxycodone 5 mg as needed Q 4-6 hours, Robaxin 500 mg t.i.d. 11. GERD, chronic, present on admission -continue omeprazole Time Spent With Patient Critical Care time: I spent a total of [] minutes of critical care time on this patient's care today; this time is exclusive of procedural time. Quality VTE Deep Vein Thrombosis/Pulmonary Embolism Present on Admission: No
--- NOTE | 2022-05-16 17:59 | PC.NURSE ---
Dr. Guadalupe spoke to pt at bedside and states she, is not discharging pt home today, changes were found on the Echo and pt will have a stress test Thursday. Pt states, son is his only transportation home and will be out of town until , has concerns about how he will get home when discharged. Spoke with DASHAWN Hodge in person and she updated DASHAWN Chavira.
--- NOTE | 2022-05-16 19:01 | PC.NURSE ---
08:00 Pt finger stick blood glucose check was 69. Pt given apple juice and finger stick blood glucose rechecked at 08:[address] Guadalupe verbally notified.
--- NOTE | 2022-05-16 19:33 | PM.DS.1 ---
History of Present Illness History of Present Illness Date Patient Seen: 05/14/22 Chief complaint: Chestpain hypoglycemic Narrative: Carlos Randall is a 66-year-old male with COPD, insulin-dependent type 2 diabetes, Parkinson's, Lewy body dementia, CAD, hypothyroidism, depression and chronic pain.? Patient was admitted for acute hypercapnic respiratory failure due to pneumonia with COPD exacerbation,acute kidney injury, encephalopathy and rhabdo on 05/12/22.? Patient improved and was discharged about 2-4pm on 05/14 and felt worse as the day progressed.? Patient states about an hour prior to calling EMS he began to feel shortness of breath with chest pain tried his albuterol at home which was helpful for the shortness of breath but no improvement in his chest pain or pressure.? Patient reports the chest pain approximately left midclavicular line, no radiation, sharp, comes and goes, no precipitating factors, pain medication in the ED does relieve symptoms, shortness of breath does not correlate with chest pain, patient denies diaphoresis, no pain with palpation to chest wall.? At the time of admit exam patient denied chest pain, having just received pain medication. Patient denies fever, chills, nausea, vomiting, diarrhea, constipation, oir urinary symptoms. He endorses a?productive cough with green sputum with his cough, chronic swelling of his extremities.? States he was discharged home with an antibiotic but has not filled the prescription yet.? Patient also presented with hyperglycemia and a sedative not taken any insulin since being released from the hospital.? The hospital service was also notified that the patient after 48 hours had 1 bottle out of 2, positive blood cultures for gram positive Staphylococcus. Patient's vitals upon admit temp 98.7? BP 178/5, HR 79, RR 13, O2 saturation 97% on room air.? WBC 12.7, with left shift neutrophils 10,400, HGB 12.7, HCT 36.3.? Sodium 132, BUN 23, glucose 482, ALT 54, PT 13 but normal INR 1.2, D-dimer 239 age adjusted is WNL, lactate WNL, T CK a 51, CK-MB 8.75, CK-MB RI 1.0, troponin 1.? 0.037, troponin 2.? 0.041, BNP 1790.? Patient's EKG demonstrated normal sinus rhythm with a rate of 790 ST or T-wave changes noted Q-wave in V1 and V2 these are no changes from previous EKG.? Dr. Dowling in ED reports her read of chest x-ray is unchanged from previous.? Patient to be admitted for bacteremia, chest pain, hyperglycemia. 05/12/2022 perH&P: Upon admit to the floor patient is febrile with a temp of 101?, BP 122/61, HR 99, RR slightly tachypneic at 18, patient on 4 L nasal cannula at 97%.? ABGs pH 7.3, CO2 54, O2 104.? Patient has an elevated WBC of 13.4 with a left shift neutrophils 11,100, though procalcitonin and lactate are WNL.? Sodium 134, creatinine elevated at 1.47, GFR decreased at 44, patient's ammonia lipase, and TSH all WNL.? Patient does have a marked elevated total creatinine kinase at 1543, AST elevated at 73, CK-MB elevated at 53.40, initial troponin WNL but elevated above baseline 0.016.? Patient's urinalysis negative for infection in ED no culture ordered.? Patient's UDS is positive for THC benzodiazepines and oxycodone.? Ketones are pending patient's head CT is negative for any acute intracranial processes at this time.? Patient's chest x-ray demonstrated bilateral patchy indistinct airspace opacities possibly suggestive of pneumonia, with increased pulmonary vasculature prominence likely mild pulmonary edema.? Discharge Providers Provider Date of admission: 05/15/22 05:36 Discharge Date: 05/14/22 Primary care physician: Gasper Rutherford DO Discharge provider: Helen Guadalupe MD Summary Hospital Course Discharge Diagnosis: 1. Acute Hypercapnic Respiratory Failure 2. ISA 3. TYpe 2 diabetes 4. Parkinson's Disease 5. Hypothyroidism 6. Depression 7. GERD 8. Chronic Pain 9. Pneumonia, probable aspiration Hospital Course: Patient was admitted for respiratory failure, found to have pneumonia and started on antibiotics for same. He was treated for COPD with steroids and inhalers. He made slow but steady improvement. He was off oxygen and felt to be back to his baseline physically. Arrangements were made for him to discharge home with increased Deja help, Home Health RN/OT/PT. Patient was deemed appropriate for discharge home. Status at Discharge Cognitive/behavioral status at discharge: at baseline, oriented, at baseline, confused and calm Functional status at discharge: uses cane/walker Overall status at discharge: patient is progressing back to baseline Exam Vital Signs (past 8 hours): - 05/16/22 13:50 05/16/22 14:53 Temperature 98.7 F Pulse Rate 68 Respiratory Rate 18 Blood Pressure 161/84 H Pulse Oximetry 95 95 Oxygen Delivery Method Room Air Oxygen Flow Rate 0 0 Oxygen Delivery Method Room Air Oxygen Flow Rate 0 Narrative Exam Narrative: Elderly male in no acute distress Resp Other: Lungs: clear to ausculatation Cardio Other: CV: RRR nl Sl S2 GI Other: Abd: soft/ non tender/ non distended Extrem Other: no edema Objective Labs 05/17/22 06:42 05/17/22 06:42 Labs: Laboratory Results - last 24 hr 05/16/22 05/16/22 05/16/22 06:13 06:13 14:30 WBC 10.4 RBC 4.57 Hgb 14.2 Hct 40.2 L MCV 87.9 MCH 31.0 MCHC 35.2 RDW 14.6 Plt Count 260 Neut % (Auto) 68.6 Lymph % (Auto) 21.3 L [place] % (Auto) 8.7 Eos % (Auto) 1.2 L Baso % (Auto) 0.2 Neut # (Auto) 7100 H Lymph # (Auto) 2200 [place] # (Auto) 900 Eos # (Auto) 100 Baso # (Auto) 0 Sodium 139 Potassium 3.5 Chloride 105 Carbon Dioxide 28 BUN 14 Creatinine 0.62 L Estimated GFR > 60 BUN/Creatinine Ratio 22.6 H Glucose 76 L D Calcium 8.8 Total Bilirubin 0.7 AST 44 ALT 54 H Alkaline Phosphatase 79 Total Protein 7.2 Albumin 3.8 Globulin 3.4 Albumin/Globulin Ratio 1.1 Vancomycin Trough < 5.0 L [facility] Medical History Bilateral otitis externa Borderline hyperlipidemia Cellulitis Chicken pox (7) Chickenpox (1956) Chronic cough COPD (chronic obstructive pulmonary disease) Coronary artery disease (2006) Depression (2008) Diabetes (1994) Eczema Foot pain GERD (gastroesophageal reflux disease) (2012) Gout Hearing reduced Hip pain History of recurrent TIAs Hyperlipidemia Hypertension Hypothyroidism Kidney disease (2009) Measles (1955) Measles (1956) Mental health assessment declined Mumps (1958) Mumps (1958) Neuropathy Obstructive sleep apnea Otitis externa Screening for malignant neoplasm of colon Shoulder pain Sleep apnea Status post myocardial infarction Steatosis Strain of muscle of right groin region (03/30/18) Type 2 diabetes mellitus Well adult exam Surgical History Anesthesia History of heart artery stent (2006) History of heart artery stent (2010) Hx of shoulder surgery (2005) Family History Brother Age: 68 Diabetes mellitus Hyperlipidemia Mother Heart disease Hypertension Hyperlipidemia Diabetes mellitus Grandmother Diabetes mellitus Brother No problems noted. Sister Breast cancer Social History marital status: details: 3 years ago household members: none lives independently: Yes housing: apartment Smoking Status: Current every day smoker Tobacco: How many years used: 45 alcohol intake: current Discharge Assessment & Plan Assessment and Plan Assessment: Acute Hypercapnic Respiratory Failure 2. ISA 3. TYpe 2 diabetes 4. Parkinson's Disease 5. Hypothyroidism 6. Depression 7. GERD 8. Chronic Pain 9. Pneumonia, probable aspiration Plan of Treatment: Discharge home Discharge Plan Discharge Plan Patient Disposition: Home Provider Discharge Comment: Your stress test was negative. Please follow-up w/your motor assembler soon and your PCP in the next week or so. Take Augmentin tonight, 2 doses tomorrow night, and then stop. Discharge orders & Medications Prescriptions: Continued (DME) blood-glucose meter Kit See Rx Instructions .ROUTE .MEDSUPPLY Qty: 1 0RF Rx Instructions: Use to test blood glucose BID (DME) Disabled Parking Permit See Rx Instructions .ROUTE .MEDSUPPLY Qty: 1 0RF Rx Instructions: Valid for 5 years methocarbamol 500 mg tablet 500 mg PO TID PRN (Reason: mm tightness) Qty: 90 1RF triamcinolone acetonide 0.1 % cream 1 applic TOP DAILY Qty: 30 5RF beclomethasone dipropionate 40 mcg/actuation HFA aerosol breath activated 1 inh Inhalation BID Qty: 10.6 5RF ipratropium-albuterol 0.5 mg-3 mg(2.5 mg base)/3 mL Solution For Nebulization 3 ml INH QID Qty: 360 0RF No Action tamsulosin 0.4 mg capsule 0.4 mg PO BEDTIME Qty: 90 3RF (DME) pen needle, diabetic [Comfort EZ Pen [place]] 31 gauge x 5/16 needle See Dose Instructions .ROUTE .MEDSUPPLY Qty: 100 5RF Dose Instruction: As directed Rx Instructions: Use to inject insulin 5 times per day (DME) lancets [BD Ultra Fine Lancets] 33 gauge misc See Rx Instructions .ROUTE .MEDSUPPLY Qty: 100 6RF Rx Instructions: Use to test blood glucose twice daily (DME) Blood Glucose Test Strip See Rx Instructions .ROUTE .MEDSUPPLY Qty: 100 6RF Rx Instructions: Use to test blood glucose twice daily. (DME) FreeStyle Timmy 2 [place] Misc See Rx Instructions .ROUTE .MEDSUPPLY Qty: 1 12RF Rx Instructions: As directed levothyroxine 125 mcg tablet 125 mcg PO DAILY Qty: 90 3RF quetiapine 25 mg tablet 25 mg PO BEDTIME Qty: 90 3RF atorvastatin 80 mg tablet 80 mg PO DAILY Qty: 90 3RF bupropion HCl 300 mg tablet extended release 24 hr 300 mg PO DAILY Qty: 90 3RF (DME) flash glucose sensor Kit See Rx Instructions .Route Qty: 1 3RF Rx Instructions: Use to check blood sugars twice daily. citalopram [Celexa] 40 mg tablet 40 mg PO DAILY Qty: 90 0RF Rx Instructions: NEEDS TO BE SEEN IN PERSON lorazepam 1 mg tablet 1 mg PO 2XD Qty: 60 1RF gabapentin 300 mg capsule See Rx Instructions .ROUTE .COMPLEX Qty: 60 2RF Dose Instruction: TAKE 1 CAPSULE BY MOUTH TWICE DAILY Rx Instructions: TAKE 1 CAPSULE BY MOUTH TWICE DAILY albuterol sulfate [Proventil HFA] 90 mcg/actuation HFA aerosol inhaler 2 puff INHALATION QID PRN (Reason: shortness of breath) Qty: 18 5RF omeprazole 20 mg capsule,delayed release(DR/EC) 20 mg PO DAILY Qty: 30 3RF ipratropium-albuterol 0.5 mg-3 mg(2.5 mg base)/3 mL solution for nebulization See Rx Instructions .ROUTE .COMPLEX Qty: 90 1RF Dose Instruction: USE 3 ML VIA NEBULIZER EVERY 4 TO 6 HOURS NEEDED FOR SHORTNESS OF BREATH OR WHEEZING Rx Instructions: USE 3 ML VIA NEBULIZER EVERY 4 TO 6 HOURS NEEDED FOR SHORTNESS OF BREATH OR WHEEZING oxycodone 5 mg tablet 5 mg PO Q4-6H PRN (Reason: Pain, Moderate) Qty: 60 0RF nystatin 100,000 unit/gram powder 1 applic topical TID PRN (Reason: Tinea cruris) Qty: 30 1RF insulin glargine U-300 conc 300 unit/mL (3 mL) insulin pen 90 unit SUBCUT BID Qty: 15 11RF Novolog FlexPen U-100 Insulin 100 unit/mL (3 mL) insulin pen See Rx Instructions SUBCUT .COMPLEX Qty: 15 11RF Rx Instructions: 10 units a.c. t.i.d. depending on carbohydrate content of meal Medication counseling provided by Pharmacist: No Follow up/Referrals: Gasper Rutherford, DO [Primary Care Provider] - Diet/Activity/Treatments Diet: Carb-consistent/Diabetic, Low-fat and Low-cholesterol Activity: As tolerated Oxygen: N/A Visit Report/Discharge Packet Visit Report Forms: Patient Portal/API, Stroke Signs & Symptoms Discharge Data Primary Care Provider: Gasper Rutherford Attending Provider: Parris Neumann Admit Date/Time: 05/15/22 05:36 Discharges patient from system. Discharge Date/Time: 05/20/22 18:27
[2022-05-16] MEDS: AMOXICILLIN/CLAV 875/125 MG 1 TAB PO (21:20)
[2022-05-16] MEDS: QUETIAPINE 25 MG TABLET PO (21:20)
[2022-05-17] VITALS (13 sets, daily range): BP systolic 117–154; BP diastolic 63–86; PULSE 61–82; RESP 16–18; TEMP 36.4–37.3; O2SAT 93–99
[2022-05-17] MEDS: LEVOTHYROXINE 125 MCG TABLET PO (05:41)
[2022-05-17] MEDS: PANTOPRAZOLE DR 20 MG TABLET PO (05:41)
[2022-05-17 06:57] LABS: Basophils Absolute Auto 100 /uL (0-100); Basophils Percent Auto 0.5 % (0-2); Eosinophils Absolute Auto 200 /uL (0-450); Eosinophils Percent Auto 1.8 % (2-4); Hematocrit 43.1 % (41-53); Hemoglobin 15.4 g/dL (13.5-17.5); Lymphocytes Absolute Auto 2500 /uL (1100-4500); Lymphocytes Percent Auto 22.4 % (25-40); Mean Corpuscular HGB Conc 35.7 % (30-36); Mean Corpuscular Volume 89.7 fL (80-100); Monocytes Absolute Auto 1100 /uL (0-900); Monocytes Percent Auto 9.9 % (3-14); Neutrophils Absolute Auto 7300 /uL (1500-7000); Neutrophils Percent Auto 65.4 % (50-75); Platelet Count 252 X10^3/uL (150-400); Red Blood Cell Count 4.81 X10^6/uL (4.5-5.9); Red Cell Distribution Width 14.7 % (11.6-14.8); White Blood Cell Count 11.2 X10^3/uL (4.5-11.0)
[2022-05-17 07:09] LABS: Add Manual Diff / Slide Review SLIDE REVIEW
[2022-05-17 07:10] LABS: Alanine Aminotransferase 85 IU/L (<50); Albumin 3.6 g/dL (3.5-5.0); Alkaline Phosphatase 100 U/L (38-126); Aspartate Aminotransferase 72 IU/L (17-59); BUN Creatinine Ratio 23.9 (6-22); Bilirubin Total 0.9 mg/dL (0.2-1.3); Blood Urea Nitrogen 16 mg/dL (9-20); Calcium 8.7 mg/dL (8.4-10.2); Carbon Dioxide 25 mmol/L (22-32); Chloride 102 mmol/L (98-107); Estimated Glomerular Filt Rate > 60 mL/min (>60); Globulin 3.5 g/dL (1.7-4.1); Glucose 203 mg/dL (80-110); HEMOLYSIS 44 (0-50); Potassium 4.2 mmol/L (3.4-5.1); Sodium 135 mmol/L (137-145); Total Protein 7.1 g/dL (6.3-8.2)
[2022-05-17 07:35] LABS: RBC Morphology Normal Morphology
[2022-05-17] MEDS: INSULIN GLARGINE 100 UNIT/ML 3ML PEN 30 UNIT SUBCUT ×2 (08:40→21:26)
[2022-05-17] MEDS: INSULIN LISPRO 100 UNIT/ML 3ML VIAL SUBCUT ×4 (08:41→21:28)
[2022-05-17] MEDS: BUDESONIDE 0.5 MG/2 ML NEB INH ×2 (08:50→19:06)
[2022-05-17] MEDS: ENOXAPARIN 40 MG/0.4 ML SYRINGE SUBCUT (08:52)
[2022-05-17] MEDS: CITALOPRAM 10 MG TABLET 40 MG PO (08:53)
[2022-05-17] MEDS: ASPIRIN 325 MG TABLET PO (08:53)
[2022-05-17] MEDS: ATORVASTATIN 20 MG TABLET 80 MG PO (08:53)
[2022-05-17] MEDS: AMOXICILLIN/CLAV 875/125 MG 1 TAB PO ×2 (08:54→21:26)
[2022-05-17] MEDS: CLOPIDOGREL 75 MG TABLET PO (08:54)
[2022-05-17] MEDS: GABAPENTIN 300 MG CAPSULE 600 MG PO ×2 (08:54→21:26)
--- NOTE | 2022-05-17 11:26 | CM.DPNOTE ---
Called Answering Service at [facility] and they will let the oncall person, Pooja, know pt. will most likely dc on Thursday. Laurie Luque CM Assist.
--- NOTE | 2022-05-17 15:51 | PM.PN.1 ---
Subjective Subjective Date Patient Seen: 05/17/22 Interval history: 66-year-old gentleman with Lewy body dementia, Parkinson's disease, Insulin-dependent type 2 diabetes, COPD, hypothyroidism, depression, chronic pain, and coronary artery disease with reported history of 3 previous stents recently hospitalized from May 13 through May 15 with respiratory failure secondary to pneumonia as well as ISA and rhabdomyolysis and poorly controlled diabetes with a hemoglobin A1c of 12.2% who returns to the hospital May 16, 2022 complaining of chest pain. Patient reports he does have somewhat frequent chest pain. He reports the chest pain he had coming in yesterday was not atypical. However, he reports he has had 3 prior stent and that is what made him feel nervous. He reports he is coughing less and has less sputum production overall. He states that he is feeling better from a standpoint of his pneumonia. He does report there may be difficulty with him getting home after his stress test as his son who would be his rate is currently out of town. Patient states he lives in [place] in an apartment. Currently, he denies any chest pain, chest tightness, chest pressure, lightheadedness, diaphoresis, or nausea. Exam Vital Signs (past 8 hours): - 05/17/22 08:50 05/17/22 08:30 05/17/22 08:30 Temperature Pulse Rate 72 Respiratory Rate 16 Blood Pressure Pulse Oximetry 95 95 Oxygen Delivery Method Room Air Room Air Room Air Oxygen Flow Rate 05/17/22 11:00 Temperature 98.3 F Pulse Rate 65 Respiratory Rate 18 Blood Pressure 129/63 Pulse Oximetry 97 Oxygen Delivery Method Oxygen Flow Rate 0 Oxygen Delivery Method Room Air Oxygen Flow Rate 0 Narrative Exam Narrative: GEN: Pleasant middle-aged male, Alert and oriented x 2-3, mildly forgetful, NAD HEENT:NC, Face symmetric CHEST: Respiratory excursions symmetric, CTAB CV: RRR, no M/R/G ABD: Soft, NT/ND, BT present in all 4 quadrants, no organomegaly or masses EXTR: warm, well perfused, no C/C/E SKIN: warm and dry, no rash NEURO: Alert and oriented x 3, nonfocal Objective Labs Result Diagrams: 05/17/22 06:42 05/17/22 06:42 Labs: Laboratory Results - last 24 hr 05/17/22 05/17/22 06:42 06:42 WBC 11.2 H RBC 4.81 Hgb 15.4 Hct 43.1 MCV 89.7 MCH 32.0 MCHC 35.7 RDW 14.7 Plt Count 252 Neut % (Auto) 65.4 Lymph % (Auto) 22.4 L [place] % (Auto) 9.9 Eos % (Auto) 1.8 L Baso % (Auto) 0.5 Neut # (Auto) 7300 H Lymph # (Auto) 2500 [place] # (Auto) 1100 H Eos # (Auto) 200 Baso # (Auto) 100 RBC Morphology Normal morphology Sodium 135 L Potassium 4.2 Chloride 102 Carbon Dioxide 25 BUN 16 Creatinine 0.67 Estimated GFR > 60 BUN/Creatinine Ratio 23.9 H Glucose 203 H D Calcium 8.7 Total Bilirubin 0.9 AST 72 H ALT 85 H Alkaline Phosphatase 100 Total Protein 7.1 Albumin 3.6 Globulin 3.5 Albumin/Globulin Ratio 1.0 PFSH Medical History Bilateral otitis externa Borderline hyperlipidemia Cellulitis Chicken pox (1956) Chickenpox (1956) Chronic cough COPD (chronic obstructive pulmonary disease) Coronary artery disease (2006) Depression (2008) Diabetes (1994) Eczema Foot pain GERD (gastroesophageal reflux disease) (2012) Gout Hearing reduced Hip pain History of recurrent TIAs Hyperlipidemia Hypertension Hypothyroidism Kidney disease (2009) Measles (1955) Measles (1955) Mental health assessment declined Mumps (1958) Mumps (1958) Neuropathy Obstructive sleep apnea Otitis externa Screening for malignant neoplasm of colon Shoulder pain Sleep apnea Status post myocardial infarction Steatosis Strain of muscle of right groin region (03/30/18) Type 2 diabetes mellitus Well adult exam Surgical History Anesthesia History of heart artery stent (2006) History of heart artery stent (2010) Hx of shoulder surgery (2005) Family History Brother Age: 67 Diabetes mellitus Hyperlipidemia Mother Heart disease Hypertension Hyperlipidemia Diabetes mellitus Grandmother Diabetes mellitus Brother No problems noted. Sister Breast cancer Social History marital status: details: 3 years ago household members: none lives independently: Yes housing: apartment Smoking Status: Current every day smoker Tobacco: How many years used: 45 alcohol intake: current Assessment & Plan Assessment & Plan narrative: 1. Chest pain Elevated troponin noted on admission. Uncertain if this is secondary to infection and respiratory failure versus NSTEMI. Echocardiogram did not show full visualization of the inferolateral wall of the left ventricle and an area of hypokinesis could not be ruled out entirely. Previous echo showed a normal LV size, thickness, and systolic function without wall motion abnormality. Due to the incomplete visualization by echocardiogram and his known coronary disease history, patient will remain in the hospital for nuclear stress testing which will be performed on May 19. 2. Coag-negative staph bacteremia One culture positive from May 12 but 2nd culture negative as well as May 15 cultures. No further treatment needed. This was a contaminant. 3. Pneumonia Completing a course of Augmentin. 4. COPD exacerbation with shortness of breath This is improving. 5. Diabetes mellitus type 2, uncontrolled with hyperglycemia and neuropathy Hemoglobin A1c was 12.2% on May 13. He was on Lantus 40 units twice daily but had some hypoglycemia coming in. Decreased to 30 units b.i.d. on admission but this morning's glucose was above 200. Will likely transition to 35 units b.i.d. tomorrow pending glucose trend through the day. 6. Parkinson's disease Untreated at baseline 7. Lewy body dementia Continue Seroquel 8. Coronary artery disease Continue Plavix and atorvastatin 9. Hypothyroidism Continue levothyroxine. TSH was within normal limits 10. Chronic pain Patient was on oxycodone and Robaxin which were held secondary to over sedation during prior admission. 11. GERD Continue omeprazole Code status Full Prophylaxis On Lovenox Disposition Likely home if his nuclear stress test is negative Time Spent With Patient Critical Care time: I spent a total of [] minutes of critical care time on this patient's care today; this time is exclusive of procedural time. Quality VTE Deep Vein Thrombosis/Pulmonary Embolism Present on Admission: No
[2022-05-17] MEDS: QUETIAPINE 25 MG TABLET PO (21:26)
[2022-05-17] MEDS: SODIUM CHLORIDE 0.9% FLUSH 10 ML IV (21:30)
[2022-05-18] VITALS (10 sets, daily range): BP systolic 124–136; BP diastolic 60–79; PULSE 64–118; RESP 16–18; TEMP 36.3–36.7; O2SAT 94–100
--- NOTE | 2022-05-18 05:37 | PM.PN.1 ---
Subjective Subjective Date Patient Seen: 05/18/22 Interval history: 66-year-old gentleman with Lewy body dementia, Parkinson's disease,? Insulin-dependent type 2 diabetes, COPD, hypothyroidism, depression, chronic pain, and coronary artery disease with reported history of 3 previous stents recently hospitalized from May 13 through May 15 with respiratory failure secondary to pneumonia as well as ISA and rhabdomyolysis and poorly controlled diabetes with a hemoglobin A1c of 12.2% who returns to the hospital May 16, 2022 complaining of chest pain. Patient reports he does have somewhat frequent chest pain. Yesterday he reported that the pain he had on admission was fairly typical. However, he has known coronary artery disease with 3 prior stents placed. He continues to report that his cough is improving. He states he does have a ride home if he is able to discharge tomorrow. Currently, he denies any chest pain, chest tightness, chest pressure, lightheadedness, diaphoresis, or nausea. Exam Vital Signs (past 8 hours): - 05/17/22 23:08 05/18/22 03:00 Temperature 99.2 F Pulse Rate 66 75 Respiratory Rate 17 Blood Pressure 129/70 Pulse Oximetry 97 Oxygen Flow Rate 0 Oxygen Delivery Method Room Air Oxygen Flow Rate 0 Narrative Exam Narrative: GEN:? Pleasant middle-aged male, Alert and oriented x 2-3, mildly forgetful, NAD HEENT:NC, Face symmetric CHEST: Respiratory excursions symmetric, CTAB CV: RRR, no M/R/G ABD: Soft, NT/ND, BT present in all 4 quadrants, no organomegaly or masses EXTR: warm, well perfused, no C/C/E SKIN: warm and dry, no rash NEURO: Alert and oriented x 3, nonfocal Objective Labs Result Diagrams: 05/17/22 06:42 05/17/22 06:42 Labs: Laboratory Results - last 24 hr 05/17/22 05/17/22 06:42 06:42 WBC 11.2 H RBC 4.81 Hgb 15.4 Hct 43.1 MCV 89.7 MCH 32.0 MCHC 35.7 RDW 14.7 Plt Count 252 Neut % (Auto) 65.4 Lymph % (Auto) 22.4 L [place] % (Auto) 9.9 Eos % (Auto) 1.8 L Baso % (Auto) 0.5 Neut # (Auto) 7300 H Lymph # (Auto) 2500 [place] # (Auto) 1100 H Eos # (Auto) 200 Baso # (Auto) 100 RBC Morphology Normal morphology Sodium 135 L Potassium 4.2 Chloride 102 Carbon Dioxide 25 BUN 16 Creatinine 0.67 Estimated GFR > 60 BUN/Creatinine Ratio 23.9 H Glucose 203 H D Calcium 8.7 Total Bilirubin 0.9 AST 72 H ALT 85 H Alkaline Phosphatase 100 Total Protein 7.1 Albumin 3.6 Globulin 3.5 Albumin/Globulin Ratio 1.0 PFSH Medical History Bilateral otitis externa Borderline hyperlipidemia Cellulitis Chicken pox (1956) Chickenpox (1956) Chronic cough COPD (chronic obstructive pulmonary disease) Coronary artery disease (2006) Depression (2008) Diabetes (1994) Eczema Foot pain GERD (gastroesophageal reflux disease) (2012) Gout Hearing reduced Hip pain History of recurrent TIAs Hyperlipidemia Hypertension Hypothyroidism Kidney disease (2009) Measles (1955) Measles (1955) Mental health assessment declined Mumps (1958) Mumps (1958) Neuropathy Obstructive sleep apnea Otitis externa Screening for malignant neoplasm of colon Shoulder pain Sleep apnea Status post myocardial infarction Steatosis Strain of muscle of right groin region (03/30/18) Type 2 diabetes mellitus Well adult exam Surgical History Anesthesia History of heart artery stent (2006) History of heart artery stent (2010) Hx of shoulder surgery (2005) Family History Brother Age: 67 Diabetes mellitus Hyperlipidemia Mother Heart disease Hypertension Hyperlipidemia Diabetes mellitus Grandmother Diabetes mellitus Brother No problems noted. Sister Breast cancer Social History marital status: details: 3 years ago household members: none lives independently: Yes housing: apartment Smoking Status: Current every day smoker Tobacco: How many years used: 45 alcohol intake: current Assessment & Plan Assessment & Plan narrative: 1. Chest pain Elevated troponin noted on admission.? Uncertain if this is secondary to infection and respiratory failure versus NSTEMI.? Echocardiogram did not show full visualization of the inferolateral wall of the left ventricle and an area of hypokinesis could not be ruled out entirely.? Previous echo showed a normal LV size, thickness, and systolic function without wall motion abnormality.? Due to the incomplete visualization by echocardiogram and his known coronary disease history, patient will remain in the hospital for nuclear stress testing which will be performed on May 19. He remains symptom-free since admission. 2. Coag-negative staph bacteremia One culture positive from May 12 but 2nd culture negative as well as May 15 cultures.? No further treatment needed.? This was a contaminant. 3. Pneumonia Completing a course of Augmentin. 4. COPD exacerbation with shortness of breath This is improving. 5. Diabetes mellitus type 2, uncontrolled with hyperglycemia and neuropathy Hemoglobin A1c was 12.2% on May 13.? He was on Lantus 40 units twice daily but had some hypoglycemia coming in.? Decreased to 30 units b.i.d. on admission. Unfortunately, his fingersticks were not ordered and no additional blood sugars have been performed. Additionally, he had been placed on a regular diet on admission. Therefore, placed on a controlled carb diet and fingersticks and sliding scale. No changes made to the Lantus today. 6. Parkinson's disease Untreated at baseline, stable 7. Lewy body dementia Continue Seroquel, stable 8. Coronary artery disease Continue Plavix and atorvastatin 9. Hypothyroidism Continue levothyroxine.? TSH was within normal limits 10. Chronic pain Patient was on oxycodone and Robaxin which were held secondary to over sedation during prior admission. 11. GERD Continue omeprazole Code status Full Prophylaxis On Lovenox Disposition Home if his nuclear stress test is negative Time Spent With Patient Critical Care time: I spent a total of [] minutes of critical care time on this patient's care today; this time is exclusive of procedural time. Quality VTE Deep Vein Thrombosis/Pulmonary Embolism Present on Admission: No
[2022-05-18] MEDS: PANTOPRAZOLE DR 20 MG TABLET PO (06:29)
[2022-05-18] MEDS: LEVOTHYROXINE 125 MCG TABLET PO (06:29)
[2022-05-18] MEDS: INSULIN LISPRO 100 UNIT/ML 3ML VIAL SUBCUT ×4 (08:26→21:22)
[2022-05-18] MEDS: INSULIN GLARGINE 100 UNIT/ML 3ML PEN 30 UNIT SUBCUT ×2 (08:29→21:19)
[2022-05-18] MEDS: CLOPIDOGREL 75 MG TABLET PO (08:35)
[2022-05-18] MEDS: ATORVASTATIN 20 MG TABLET 80 MG PO (08:35)
[2022-05-18] MEDS: CITALOPRAM 10 MG TABLET 40 MG PO (08:35)
[2022-05-18] MEDS: ENOXAPARIN 40 MG/0.4 ML SYRINGE SUBCUT (08:36)
[2022-05-18] MEDS: GABAPENTIN 300 MG CAPSULE 600 MG PO ×2 (08:36→21:14)
[2022-05-18] MEDS: ASPIRIN 325 MG TABLET PO (08:36)
[2022-05-18] MEDS: AMOXICILLIN/CLAV 875/125 MG 1 TAB PO ×2 (08:37→21:14)
[2022-05-18] MEDS: SODIUM CHLORIDE 0.9% FLUSH 10 ML IV ×2 (08:38→21:15)
--- NOTE | 2022-05-18 08:59 | PC.NURSE ---
pt up to chair for breakfast, denies chest pain tele in place nsr 80's
[2022-05-18] MEDS: BUDESONIDE 0.5 MG/2 ML NEB INH ×2 (09:54→19:12)
--- NOTE | 2022-05-18 15:22 | CM.DPC ---
DCP Cont: Discussed patient during team rounds. He is mobile, per his baseline. Facilities were faxed in case he needed skilled, but it is noted he is at his baseline. Patient is here due to needing stress test, which is to occur tomorrow. Patient most likely will discharge and resume [facility]. P: DCP to continue to follow. Patient should most likely go home tomorrow and resume [facility]. Ayesha Willson RN/Nurse Transplant
[2022-05-18] MEDS: QUETIAPINE 25 MG TABLET PO (21:14)
[2022-05-19] VITALS (14 sets, daily range): BP systolic 114–140; BP diastolic 59–85; PULSE 63–78; RESP 18–22; TEMP 36.1–36.7; O2SAT 94–98
[2022-05-19] MEDS: PANTOPRAZOLE DR 20 MG TABLET PO (05:21)
[2022-05-19] MEDS: LEVOTHYROXINE 125 MCG TABLET PO (05:21)
[2022-05-19] MEDS: GABAPENTIN 300 MG CAPSULE 600 MG PO ×2 (09:44→21:00)
[2022-05-19] MEDS: AMOXICILLIN/CLAV 875/125 MG 1 TAB PO ×2 (09:44→21:00)
[2022-05-19] MEDS: ASPIRIN 325 MG TABLET PO (09:44)
[2022-05-19] MEDS: CITALOPRAM 10 MG TABLET 40 MG PO (09:44)
[2022-05-19] MEDS: ATORVASTATIN 20 MG TABLET 80 MG PO (09:44)
[2022-05-19] MEDS: ENOXAPARIN 40 MG/0.4 ML SYRINGE SUBCUT (09:44)
[2022-05-19] MEDS: CLOPIDOGREL 75 MG TABLET PO (09:44)
[2022-05-19] MEDS: SODIUM CHLORIDE 0.9% FLUSH 10 ML IV ×2 (09:45→22:32)
[2022-05-19] MEDS: INSULIN GLARGINE 100 UNIT/ML 3ML PEN 30 UNIT SUBCUT ×2 (09:46→21:10)
[2022-05-19] MEDS: BUDESONIDE 0.5 MG/2 ML NEB INH ×2 (10:04→20:12)
[2022-05-19] MEDS: INSULIN LISPRO 100 UNIT/ML 3ML VIAL SUBCUT ×3 (12:12→22:34)
--- NOTE | 2022-05-19 14:13 | PM.PN.1 ---
Subjective Subjective Date Patient Seen: 05/19/22 Interval history: 66-year-old gentleman with Lewy body dementia, Parkinson's disease,? Insulin-dependent type 2 diabetes, COPD, hypothyroidism, depression, chronic pain, and coronary artery disease with reported history of 3 previous stents recently hospitalized from May 13 through May 15 with respiratory failure secondary to pneumonia as well as ISA and rhabdomyolysis and poorly controlled diabetes with a hemoglobin A1c of 12.2% who returned to the hospital May 16, 2022 complaining of chest pain. He remains in the hospital awaiting a stress test. Currently, he denies any chest pain, chest tightness, chest pressure, lightheadedness, diaphoresis, or nausea. No chest pain since admission. Exam Vital Signs (past 8 hours): - 05/19/22 10:04 05/19/22 10:00 05/19/22 09:44 Temperature 97.5 F L Pulse Rate 70 70 Respiratory Rate 18 19 Blood Pressure 138/85 Pulse Oximetry 97 95 Oxygen Delivery Method Room Air Room Air Oxygen Flow Rate 0 05/19/22 09:44 Temperature Pulse Rate Respiratory Rate Blood Pressure Pulse Oximetry 97 Oxygen Delivery Method Room Air Oxygen Flow Rate Oxygen Delivery Method Room Air Oxygen Flow Rate 0 Narrative Exam Narrative: GEN:? Pleasant middle-aged male, Alert and oriented x 3, NAD HEENT:NC, Face symmetric CHEST: Respiratory excursions symmetric, CTAB CV: RRR, no M/R/G ABD: Soft, NT/ND, BT present in all 4 quadrants, no organomegaly or masses EXTR: warm, well perfused, no C/C/E SKIN: warm and dry, no rash NEURO: Alert and oriented x 3, nonfocal Objective Labs Result Diagrams: 05/17/22 06:42 05/17/22 06:42 [facility] Medical History Bilateral otitis externa Borderline hyperlipidemia Cellulitis Chicken pox (1956) Chickenpox (1956) Chronic cough COPD (chronic obstructive pulmonary disease) Coronary artery disease (2006) Depression (2009) Diabetes (1994) Eczema Foot pain GERD (gastroesophageal reflux disease) (2012) Gout Hearing reduced Hip pain History of recurrent TIAs Hyperlipidemia Hypertension Hypothyroidism Kidney disease (2009) Measles (6) Measles (1955) Mental health assessment declined Mumps (1958) Mumps (1959) Neuropathy Obstructive sleep apnea Otitis externa Screening for malignant neoplasm of colon Shoulder pain Sleep apnea Status post myocardial infarction Steatosis Strain of muscle of right groin region (03/30/18) Type 2 diabetes mellitus Well adult exam Surgical History Anesthesia History of heart artery stent (2006) History of heart artery stent (2010) Hx of shoulder surgery (2005) Family History Brother Age: 67 Diabetes mellitus Hyperlipidemia Mother Heart disease Hypertension Hyperlipidemia Diabetes mellitus Grandmother Diabetes mellitus Brother No problems noted. Sister Breast cancer Social History marital status: details: 3 years ago household members: none lives independently: Yes housing: apartment Smoking Status: Current every day smoker Tobacco: How many years used: 45 alcohol intake: current Assessment & Plan Assessment & Plan narrative: 1. Chest pain Elevated troponin noted on admission.? Uncertain if this is secondary to infection and respiratory failure versus NSTEMI.? Echocardiogram did not show full visualization of the inferolateral wall of the left ventricle and an area of hypokinesis could not be ruled out entirely.? Previous echo showed a normal LV size, thickness, and systolic function without wall motion abnormality.? Due to the incomplete visualization by echocardiogram and his known coronary disease history, patient will remain in the hospital for nuclear stress testing which will be performed on May 20.? He remains symptom-free since admission. 2. Coag-negative staph bacteremia One culture positive from May 12 but 2nd culture negative as well as May 15 cultures.? No further treatment needed.? This was a contaminant. 3. Pneumonia Completing a course of Augmentin. Will complete course on 05/21. 4. COPD exacerbation with shortness of breath This is improving. 5. Diabetes mellitus type 2, uncontrolled with hyperglycemia and neuropathy Hemoglobin A1c was 12.2% on May 13.? He was on Lantus 40 units twice daily but had some hypoglycemia coming in.? Decreased to 30 units b.i.d. on admission.? Unfortunately, his fingersticks were not ordered and no additional blood sugars have been performed.? Additionally, he had been placed on a regular diet on admission.? Therefore, placed on a controlled carb diet and fingersticks and sliding scale.? He was NPO overnight and didn't eat breakfast this am waiting to determine if nuc would be done. No changes made to the Lantus today. 6. Parkinson's disease Untreated at baseline, stable 7. Lewy body dementia Continue Seroquel, stable 8. Coronary artery disease Continue Plavix and atorvastatin 9. Hypothyroidism Continue levothyroxine.? TSH was within normal limits 10. Chronic pain Patient was on oxycodone and Robaxin which were held secondary to over sedation during prior admission. 11. GERD Continue omeprazole Code status Full Prophylaxis On Lovenox Disposition Home if his nuclear stress test is negative Time Spent With Patient Critical Care time: I spent a total of [] minutes of critical care time on this patient's care today; this time is exclusive of procedural time. Quality VTE Deep Vein Thrombosis/Pulmonary Embolism Present on Admission: No
[2022-05-19] MEDS: QUETIAPINE 25 MG TABLET PO (21:00)
[2022-05-20] VITALS (9 sets, daily range): BP systolic 119–138; BP diastolic 63–89; PULSE 60–78; RESP 18–21; TEMP 36.3–37.1; O2SAT 95–98
[2022-05-20] MEDS: BUDESONIDE 0.5 MG/2 ML NEB INH (09:19)
[2022-05-20] MEDS: INSULIN LISPRO 100 UNIT/ML 3ML VIAL SUBCUT ×2 (09:41→17:04)
[2022-05-20] MEDS: AMOXICILLIN/CLAV 875/125 MG 1 TAB PO (09:42)
[2022-05-20] MEDS: ASPIRIN 325 MG TABLET PO (09:42)
[2022-05-20] MEDS: CLOPIDOGREL 75 MG TABLET PO (09:42)
[2022-05-20] MEDS: ENOXAPARIN 40 MG/0.4 ML SYRINGE SUBCUT (09:43)
[2022-05-20] MEDS: SODIUM CHLORIDE 0.9% FLUSH 10 ML IV (09:43)
[2022-05-20] MEDS: INSULIN GLARGINE 100 UNIT/ML 3ML PEN 30 UNIT SUBCUT (09:43)
--- NOTE | 2022-05-20 18:04 | P.DS_ITS ---
History of Present Illness History of Present Illness Date Patient Seen: 05/20/22 Chief complaint: Chestpain hypoglycemic Narrative: Per history and physical: Carlos Randall is a 66-year-old male with COPD, insulin-dependent type 2 diabetes, Parkinson's, Lewy body dementia, CAD, hypothyroidism, depression and chronic pain.? Patient was admitted for acute hypercapnic respiratory failure due to pneumonia with COPD exacerbation,acute kidney injury, encephalopathy and rhabdo on 05/12/22.? Patient improved and was discharged about 2-4pm on 05/14 and felt worse as the day progressed.? Patient states about an hour prior to calling EMS he began to feel shortness of breath with chest pain tried his albuterol at home which was helpful for the shortness of breath but no improvement in his chest pain or pressure.? Patient reports the chest pain approximately left midclavicular line, no radiation, sharp, comes and goes, no precipitating factors, pain medication in the ED does relieve symptoms, shortness of breath does not correlate with chest pain, patient denies diaphoresis, no pain with palpation to chest wall.? At the time of admit exam patient denied chest pain, having just received pain medication. Patient denies fever, chills, nausea, vomiting, diarrhea, constipation, oir urinary symptoms. He endorses a?productive cough with green sputum with his cough, chronic swelling of his extremities.? States he was discharged home with an antibiotic but has not filled the prescrip tion yet.? Patient also presented with hyperglycemia and a sedative not taken any insulin since being released from the hospital.? The hospital service was also notified that the patient after 48 hours had 1 bottle out of 2, positive blood cultures for gram positive Staphylococcus. Patient's vitals upon admit temp 98.7? BP 178/5, HR 79, RR 13, O2 saturation 97% on room air.? WBC 12.7, with left shift neutrophils 10,400, HGB 12.7, HCT 36.3.? Sodium 132, BUN 23, glucose 482, ALT 54, PT 13 but normal INR 1.2, D-dimer 239 age adjusted is WNL, lactate WNL, T CK a 51, CK-MB 8.75, CK-MB RI 1.0, troponin 1.? 0.037, troponin 2.? 0.041, BNP 1790.? Patient's EKG demonstrated normal sinus rhythm with a rate of 790 ST or T-wave changes noted Q-wave in V1 and V2 these are no changes from previous EKG.? Dr. Dowling in ED reports her read of chest x-ray is unchanged from previous.? Patient to be admitted for bacteremia, chest pain, hyperglycemia. 05/12/2022 perH&P: Upon admit to the floor patient is febrile with a temp of 101?, BP 122/61, HR 99, RR slightly tachypneic at 18, patient on 4 L nasal marianela fabienne at 97%.? ABGs pH 7.3, CO2 54, O2 104.? Patient has an elevated WBC of 13.4 with a left shift neutrophils 11,100, though procalcitonin and lactate are WNL.? Sodium 134, creatinine elevated at 1.47, GFR decreased at 44, patient's ammonia lipase, and TSH all WNL.? Patient does have a marked elevated total creatinine kinase at 1543, AST elevated at 73, CK-MB elevated at 53.40, initial troponin WNL but elevated above baseline 0.016.? Patient's urinalysis negative for infection in ED no culture ordered.? Patient's UDS is positive for THC benzodiazepines and oxycodone.? Ketones are pending patient's head CT is negative for any acute intracranial processes at this time.? Patient's chest x- ray demonstrated bilateral patchy indistinct airspace opacities possibly suggestive of pneumonia, with increased pulmonary vasculature prominence likely mild pulmonary edema.? Discharge Providers Provider Date of admission: 05/15/22 05:36 Discharge Date: 05/20/22 Primary care physician: Gasper Rutherford DO Discharge provider: Mari Maciel MD Summary Hospital Course Discharge Diagnosis: Chest pain, no acute ischemia on EKG, negative cardiac enzymes, low risk nuclear stress test with fixed small inferior wall defect consistent with previous stress test in 2019 Coag-negative staph bacteremia-contaminant Pneumonia, completing antibiotics May 21, 2022 COPD exacerbation with shortness of breath, resolved Diabetes mellitus type 2, uncontrolled with hyperglycemia and neuropathy, hemoglobin A1c 12.2% on May 13 Parkinson's disease, chronic, stable Lewy body dementia, chronic, stable Coronary artery disease Hypothyroidism, chronic, stable Chronic pain syndrome, chronic, stable GERD, chronic, stable Hospital Course: 66-year-old gentleman with Lewy body dementia, Parkinson's disease,? Insulin- dependent type 2 diabetes, COPD, hypothyroidism, depression, chronic pain, and coronary artery disease with reported history of 3 previous stents recently hospitalized from May 13 through May 15 with respiratory failure secondary to pneumonia as well as ISA and rhabdomyolysis and poorly controlled diabetes with a hemoglobin A1c of 12.2% who returned to the hospital May 16, 2022 complaining of chest pain.? He had no evidence of ischemia by EKG or enzymes. Fortunately, a nuclear stress test could not be accomplished on May 16 and he remained in the hospital through May 20, 2022 at which time a nuclear stress test could be accomplished. As noted above, he was found to have a thick small inferior wall defect which was unchanged from prior stress test of 2019. It was read as a low risk study. Patient is discharged in stable condition. Status at Discharge Cognitive/behavioral status at discharge: at baseline, oriented Overall status at discharge: patient is back to baseline Exam Vital Signs (past 8 hours): - 05/20/22 13:00 05/20/22 11:00 05/20/22 15:00 Temperature 97.7 F 98.8 F Pulse Rate 60 78 Respiratory Rate 18 21 Blood Pressure 119/63 126/89 Pulse Oximetry 96 97 97 Oxygen Delivery Method Room Air Oxygen Flow Rate 0 0 0 05/20/22 17:00 Temperature Pulse Rate Respiratory Rate Blood Pressure Pulse Oximetry 96 Oxygen Delivery Method Room Air Oxygen Flow Rate 0 Oxygen Delivery Method Room Air Oxygen Flow Rate 0 Narrative Exam Narrative: GEN:? Pleasant middle-aged male, Alert and oriented x 3, NAD HEENT:NC, Face symmetric CHEST: Respiratory excursions symmetric, CTAB CV: RRR, no M/R/G ABD: Soft, NT/ND, BT present in all 4 quadrants, no organomegaly or masses EXTR: warm, well perfused, no C/C/E SKIN: warm and dry, no rash NEURO: Alert and oriented x 3, nonfocal Objective Labs Result Diagrams: 05/17/22 06:42 05/17/22 06:42 [facility] Medical History Bilateral otitis externa Borderline hyperlipidemia Cellulitis Chicken pox (1956) Chickenpox (1956) Chronic cough COPD (chronic obstructive pulmonary disease) Coronary artery disease (2006) Depression (2008) Diabetes (1994) Eczema Foot pain GERD (gastroesophageal reflux disease) (2012) Gout Hearing reduced Hip pain History of recurrent TIAs Hyperlipidemia Hypertension Hypothyroidism Kidney disease (2009) Measles (1955) Measles (1955) Mental health assessment declined Mumps (1958) Mumps (1958) Neuropathy Obstructive sleep apnea Otitis externa Screening for malignant neoplasm of colon Shoulder pain Sleep apnea Status post myocardial infarction Steatosis Strain of muscle of right groin region (03/30/18) Type 2 diabetes mellitus Well adult exam Surgical History Anesthesia History of heart artery stent (2006) History of heart artery stent (2010) Hx of shoulder surgery (2005) Family History Brother Age: 67 Diabetes mellitus Hyperlipidemia Mother Heart disease Hypertension Hyperlipidemia Diabetes mellitus Grandmother Diabetes mellitus Brother No problems noted. Sister Breast cancer Social History marital status: details: 3 years ago household members: none lives independently: Yes housing: apartment Smoking Status: Current every day smoker Tobacco: How many years used: 45 alcohol intake: current Discharge Assessment & Plan Assessment and Plan Assessment: Acute Hypercapnic Respiratory Failure 2. ISA 3. TYpe 2 diabetes 4. Parkinson's Disease 5. Hypothyroidism 6. Depression 7. GERD 8. Chronic Pain 9. Pneumonia, probable aspiration Plan of Treatment: Discharge home Discharge Plan Discharge Plan Patient Disposition: Home Provider Discharge Comment: Your stress test was negative. Please follow-up w/your sales support coordinator soon and your PCP in the next week or so. Take Augmentin tonight, 2 doses tomorrow night, and then stop. Discharge orders & Medications Prescriptions: Continued (DME) blood-glucose meter Kit See Rx Instructions .ROUTE .MEDSUPPLY Qty: 1 0RF Rx Instructions: Use to test blood glucose BID (DME) Disabled Parking Permit See Rx Instructions .ROUTE .MEDSUPPLY Qty: 1 0RF Rx Instructions: Valid for 5 years clopidogrel 75 mg tablet 75 mg PO DAILY Qty: 90 3RF Label Comments: Pt reports not taking for 1 week for upcoming colonoscopy on 10/08 methocarbamol 500 mg tablet 500 mg PO TID PRN (Reason: mm tightness) Qty: 90 1RF Novolog Flexpen U-100 Insulin 100 unit/mL (3 mL) insulin pen See Rx Instructions SUBCUT .COMPLEX Qty: 15 11RF Rx Instructions: Five-10 units a.c. t.i.d. depending on carbohydrate content of meal (DME) FreeStyle Timmy 2 Porter Misc See Rx Instructions .ROUTE .MEDSUPPLY Qty: 1 12RF Rx Instructions: As directed (DME) FreeStyle Timmy 2 Sensor Kit See Rx Instructions .ROUTE .MEDSUPPLY Qty: 1 12RF Rx Instructions: As directed citalopram [Celexa] 40 mg tablet 40 mg PO DAILY Qty: 90 3RF triamcinolone acetonide 0.1 % cream 1 applic TOP DAILY Qty: 30 5RF (DME) lancets [BD Ultra Fine Lancets] 33 gauge misc See Rx Instructions .ROUTE .MEDSUPPLY Qty: 100 6RF Rx Instructions: Use to test blood glucose twice daily lorazepam 1 mg tablet 1 mg PO BID PRN (Reason: sedation) Qty: 60 1RF albuterol sulfate [Proventil HFA] 90 mcg/actuation HFA aerosol inhaler 2 puff INHALATION QID PRN (Reason: shortness of breath) Qty: 18 5RF insulin glargine U-300 conc 300 unit/mL (3 mL) insulin pen 80 unit SUBCUT BID Qty: 15 11RF (DME) pen needle, diabetic [Comfort EZ Pen [place]] 31 gauge x 5/16 needle See Dose Instructions .ROUTE .MEDSUPPLY Qty: 100 5RF Dose Instruction: As directed Rx Instructions: Use to inject insulin 5 times per day beclomethasone dipropionate 40 mcg/actuation HFA aerosol breath activated 1 inh Inhalation BID Qty: 10.6 5RF (DME) Blood Glucose Test Strip See Rx Instructions .ROUTE .MEDSUPPLY Qty: 100 6RF Rx Instructions: Use to test blood glucose twice daily. levothyroxine 125 mcg tablet 125 mcg PO DAILY Qty: 90 3RF ipratropium-albuterol 0.5 mg-3 mg(2.5 mg base)/3 mL Solution For Nebulization 3 ml INH QID Qty: 360 0RF atorvastatin 80 mg tablet 80 mg PO 1XD Label Comments: take 1 tablet by mouth NIGHTLY bupropion HCl 300 mg tablet extended release 24 hr 300 mg PO 1XD gabapentin 300 mg capsule 300 mg PO 2XD Label Comments: TAKE 3 CAPSULES BY MOUTH TWICE DAILY lorazepam 1 mg tablet 1 mg PO 2XD Label Comments: take 1 tablet by mouth twice a day if needed for SEDATION levothyroxine 125 mcg tablet 125 mcg PO 1XD Label Comments: take 1 tablet by mouth once daily oxycodone 5 mg tablet 5 mg PO Q4-6H PRN (Reason: Pain, Moderate) Label Comments: take 1 tablet by mouth every 4 to 6 hours if needed for pain omeprazole 20 mg capsule,delayed release(DR/EC) 20 mg PO 1XD quetiapine 25 mg tablet 25 mg PO BEDTIME Label Comments: take 1 tablet by mouth every evening amoxicillin-pot clavulanate [Augmentin] 500-125 mg tablet 1 tab PO Q8H Qty: 14 0RF Medication counseling provided by Pharmacist: No Follow up/Referrals: Gasper Rutherford, [Primary Care Provider] - Diet/Activity/Treatments Diet: Carb-consistent/Diabetic, Low-fat and Low-cholesterol Activity: As tolerated Oxygen: N/A Discharge Data Primary Care Provider: Gasper Rutherford Attending Provider: Parris Neumann VTE Deep Vein Thrombosis/Pulmonary Embolism Present on Admission: No
--- NOTE | 2022-05-20 19:19 | DI.NM.S_ITS ---
DATE OF SERVICE: 05/20/2022 PROCEDURE PERFORMED: Lexiscan perfusion study. INDICATION: Chest pain, abnormal troponin, known history of RCA stent in the remote past, COPD exacerbation, diabetes, hypertension and hyperlipidemia. RADIOPHARMACEUTICAL: 26.1 millicurie technetium-99m Myoview IV was injected at stress and 10.9 millicurie technetium-99m Myoview IV was injected at rest. CARDIAC STRESS: The patient underwent IV Lexiscan perfusion study under the supervision of an attending staff, as per protocol. The patient received IV Lexiscan, as per protocol. He remained hemodynamically stable. Baseline blood pressure 144/68 mmHg. Baseline rhythm was sinus. During stress, no convincing ischemic changes seen. The patient did not have any chest pain. Had minimal dyspnea. No significant arrhythmias seen. RAW DATA: The patient's weight is 213 pounds. There is increased subdiaphragmatic activity involving the inferior border of the heart. GATED STUDY: Resting LV ejection fraction 67 and stress LV ejection fraction 74 percent. I do not see any obvious wall motion abnormalities. Resting end- diastolic volume 82 mL. TID ratio 1.08. Lung/heart ratio 0.43, which is within normal limits. MYOCARDIAL PERFUSION SCAN: Please note, this study does not have any stress prone images. Stress supine and resting supine images were compared to each other. There appears to be moderate size, mild to moderately decreased perfusion of base to mid inferior wall without any significant reversible ischemia, as well as some mildly decreased perfusion of basal inferolateral wall. The patient had a perfusion scan in July,, at that time also there was a predominantly fixed inferior wall and inferoapical defect. At that time, the patient had prone images, which also showed inferior wall and inferoapical defect. In this study, as I mentioned, there is no significant reversible ischemic burden. CONCLUSIONS: Predominantly fixed base to mid inferior wall defect, as well as basal inferolateral defect without any significant reversible ischemia. The patient had a perfusion study in 2018, at that time also had a fixed inferior wall and inferoapical defect. Overall, left ventricular function is preserved. No transient ischemic dilatation. Lung/heart ratio within normal limits. The patient has history of right coronary artery stent. Likely base to mid inferior wall myocardial infarction, however some component of diaphragmatic tissue attenuation cannot be ruled out. Overall, low-risk myocardial perfusion scan. Carlos Randall Felipe/alma doc#: [id number]/job#: [id number] dd: 05/20/2022 16:41:00 dt: 05/20/2022 19:05:00 DICTATING MD/COPIES TO: Eliazar You MD COPIES MNE: FRITZ;
== END 2022-05-20 18:27 | disposition home or self-care (01) ==
LOC: ED 05:26 → AC 05:37
PROVIDERS: Admitting Provider Nurse Practitioner Family; Emergency Provider Emergency Medicine; PCP Family Medicine; Referring Provider Emergency Medicine; Visit Provider Nurse Practitioner Family
DX: J96.02 Acute respiratory failure with hypercapnia (principal); J18.9 Pneumonia, unspecified organism; N17.9 Acute kidney failure, unspecified; E11.65 Type 2 diabetes mellitus with hyperglycemia; G20 Parkinson's disease; F02.80 Dementia in other diseases classified elsewhere, unspecified severity, without behavioral disturbance, psychotic disturbance, mood disturbance, and anxiety; E03.9 Hypothyroidism, unspecified; F32.A Depression, unspecified; I34.0 Nonrheumatic mitral (valve) insufficiency; J44.9 Chronic obstructive pulmonary disease, unspecified; K21.9 Gastro-esophageal reflux disease without esophagitis; I25.10 Atherosclerotic heart disease of native coronary artery without angina pectoris; G45.9 Transient cerebral ischemic attack, unspecified; G47.33 Obstructive sleep apnea (adult) (pediatric); I25.2 Old myocardial infarction; F17.200 Nicotine dependence, unspecified, uncomplicated; Z86.73 Personal history of transient ischemic attack (TIA), and cerebral infarction without residual deficits; Z95.5 Presence of coronary angioplasty implant and graft; Z20.822 Contact with and (suspected) exposure to COVID-19; Z79.4 Long term (current) use of insulin
CPT/HCPCS: 36415; 71045; 78452; 80053; 80061; 80202; 81001; 82550; 82553; 82947; 82962; 83605; 83690; 83735; 83880; 84145; 84443; 84484; 85025; 85379; 85610; 85730; 87040; 87635; 93005; 93010; 93017; 93306; 94640; 94760; 96361; 96365; 96366; 96367; 96372; 96375; 99284; C9803; G0378; A9270; A9502; J0878; J1650; J1815; J1885; J2785; J3475; J7613

== ENCOUNTER → 2022-06-26 15:49 | Outpatient (CLI) | payer MEDICARE, SELFPAY ==
[2022-05-15 09:21] VITALS: BMI 33.9
[2022-06-26 16:58] LABS: Alanine Aminotransferase 37 IU/L (<50); Albumin 3.8 g/dL (3.5-5.0); Albumin Globulin Ratio 1.2 (1.0-2.8); Alkaline Phosphatase 76 U/L (38-126); Aspartate Aminotransferase 35 IU/L (17-59); BUN Creatinine Ratio 19.3 (6-22); Bilirubin Total 0.4 mg/dL (0.2-1.3); Blood Urea Nitrogen 16 mg/dL (9-20); Carbon Dioxide 28 mmol/L (22-32); Chloride 100 mmol/L (98-107); Estimated Glomerular Filt Rate > 60 mL/min (>60); Globulin 3.3 g/dL (1.7-4.1); Glucose 388 mg/dL (80-110); HEMOLYSIS < 15 (0-50); Potassium 4.7 mmol/L (3.4-5.1); Sodium 134 mmol/L (137-145); Total Protein 7.1 g/dL (6.3-8.2)
[2022-06-26 17:12] LABS: Creatinine Urine Random 45.1 mg/dL
[2022-06-26 17:27] LABS: Free T4, Direct Thyroxine 0.91 ng/dL (0.78-2.19)
[2022-06-26 17:34] LABS: Add Manual Diff / Slide Review NO; Basophils Absolute Auto 0 /uL (0-100); Basophils Percent Auto 0.1 % (0-2); Eosinophils Absolute Auto 100 /uL (0-450); Eosinophils Percent Auto 1.3 % (2-4); Hematocrit 39.2 % (41-53); Hemoglobin 13.3 g/dL (13.5-17.5); Lymphocytes Absolute Auto 1100 /uL (1100-4500); Lymphocytes Percent Auto 15.2 % (25-40); Mean Corpuscular HGB Conc 34.1 % (30-36); Mean Corpuscular Hemoglobin 30.9 PG (26-34); Mean Corpuscular Volume 90.5 fL (80-100); Monocytes Absolute Auto 600 /uL (0-900); Monocytes Percent Auto 7.6 % (3-14); Neutrophils Absolute Auto 5600 /uL (1500-7000); Neutrophils Percent Auto 75.8 % (50-75); Platelet Count 202 X10^3/uL (150-400); Red Blood Cell Count 4.33 X10^6/uL (4.5-5.9); Red Cell Distribution Width 14.4 % (11.6-14.8); White Blood Cell Count 7.3 X10^3/uL (4.5-11.0)
[2022-06-26 17:41] LABS: Thyroid Stimulating Hormone 1.56 uIU/mL (0.47-4.68)
[2022-06-26 17:42] LABS: Microalbumi Creatinin Ratio Ur 849.2 ug/mg CR (<30); Microalbumin Urine Random 38.3 mg/dL (0-1.6)
[2022-06-26 17:57] LABS: Hemoglobin A1C% w Est Avg Glu 11.3 % (4.0-6.0)
== END ==
PROVIDERS: PCP Family Medicine; Referring Provider Family Medicine; Visit Provider Family Medicine
DX: E03.9 Hypothyroidism, unspecified (principal); E11.9 Type 2 diabetes mellitus without complications; F31.9 Bipolar disorder, unspecified; M54.2 Cervicalgia
CPT/HCPCS: 36415; 80053; 82043; 82570; 83036; 84439; 84443; 85025

== ENCOUNTER 2023-04-07 03:48 | Emergency (ER) | payer OTHER, MEDICAID, SELFPAY ==
[2022-12-12 10:26] VITALS: BMI 33.9
[2023-04-07] VITALS (9 sets, daily range): BP systolic 106–149; BP diastolic 57–70; PULSE 85–91; RESP 11–24; TEMP 36.9; O2SAT 92–95; BMI 32.3
--- NOTE | 2023-04-07 03:54 | DI.CT.S_ITS ---
PROCEDURE: CT CERVICAL SPINE WO CON INDICATIONS: trauma TECHNIQUE: Noncontrast 3 mm thick sections acquired from the skull base to the T4 level. Sagittal and coronal reformats were then constructed. For radiation dose reduction, the following was used: automated exposure control, adjustment of mA and/or kV according to patient size. COMPARISON: [facility], CT, CT CERVICAL SPINE WO CON, 11/09/2021, 7:51. FINDINGS: Image quality: Excellent. Bones: No acute fractures or dislocations. No acute compression fractures of the vertebral bodies. Craniocervical junction is intact. C1-C2 relationship is preserved. Visualized superior ribs are intact. Straightening of cervical lordosis with gentle reversal centered at C4, likely related to positioning and/or concurrent muscle spasms. Moderate multilevel cervical spondylosis not significantly changed. Degenerative endplate changes, disc space loss, and prominent endplate osteophytes. Soft tissues: Prevertebral soft tissues are normal in thickness. No paravertebral hematomas. No apical pneumothoraces. IMPRESSION: CT cervical spine without acute fracture or traumatic malalignment. Moderate multilevel cervical spondylosis. No significant discrepancy with the operations supervisor 2nd shift radiology preliminary report. Dictated by: Pancho Patel M.D. on 04/07/2023 at 7:04 Approved by: Pancho Patel M.D. on 04/07/2023 at 7:09
--- NOTE | 2023-04-07 03:54 | DI.CT.S_ITS ---
PROCEDURE: CT HEAD/BRAIN WO CON INDICATIONS: trauma, hit head, on plavix TECHNIQUE: Noncontrast 4.5 mm thick angled axial sections acquired from the foramen magnum to the vertex, with coronal and sagittal reformats. For radiation dose reduction, the following was used: automated exposure control, adjustment of mA and/or kV according to patient size. COMPARISON: [facility], CT, CT HEAD/BRAIN WO CON, 05/12/2022, 21:36. FINDINGS: Image quality: Excellent. CSF spaces: Basal cisterns are patent. No extra-axial fluid collections. The ventricles are symmetric in size and shape. Brain: No intracranial bleeds or masses. There is cerebral volume loss for age, with resultant ventricular and sulcal prominence. There are periventricular and deep white matter chronic small vessel ischemic changes. There is intracranial internal carotid artery atherosclerosis. Skull and face: Calvarium and visualized facial bones appear intact, without suspicious lesions. Sinuses: Visualized sinuses and mastoids are clear. IMPRESSION: 1. CT head without acute intracranial abnormalities or acute calvarial fractures. 2. Age-related senescent changes and sequela of chronic small vessel ischemic disease. No significant discrepancy with the bead maker radiology preliminary report. Dictated by: Pancho Patel M.D. on 04/07/2023 at 7:03 Approved by: Pancho Patel M.D. on 04/07/2023 at 7:04
--- NOTE | 2023-04-07 03:54 | ED_ITS ---
HPI - General Adult General Chief complaint: Fall Stated complaint: GLF- mod trauma- head on stove + thinners Time Seen by Provider: 04/07/23 03:48 History of Present Illness HPI narrative: 67-year-old gentleman with a history of Parkinson's disease, Lewy body dementia, coronary artery disease anticoagulated on Plavix, diabetes, hypothyroidism, hyperlipidemia who presents by medics after falling at home this evening. He reported that he had a bit of marijuana earlier today and was up fixing his 3rd large drink of Sy Beam when he lost his balance fell backward in the kitchen and hit the back of his head against his of an. There are no reports of loss of consciousness but he was not able to get up off the floor. He is not complaining of neck pain but he is pleasantly intoxicated. He has no other complaints at this time Related Data Previous Rx's Medication Instructions Recorded ipratropium 0.5 mg-albuterol 3 mg 3 ml INH QID #360 mL 03/12/19 (2.5 mg base)/3 mL nebulization soln blood-glucose meter #1 ea 01/11/21 Disabled Parking Permit #1 ea 02/15/21 methocarbamol 500 mg tablet 500 mg PO TID PRN mm tightness #90 08/19/21 tabs beclomethasone dipropionate 40 1 inh inhalation BID Shortness Of 11/18/21 mcg/actuation HFA breath activated Breath #10.6 grams aerosol triamcinolone acetonide 0.1 % 1 applic topical DAILY #30 grams 12/17/21 topical cream tamsulosin 0.4 mg capsule 0.4 mg PO BEDTIME #90 caps 06/17/22 blood sugar diagnostic (Blood #100 ea 09/24/22 Glucose Test strips) lancets 33 gauge (BD Ultra Fine #100 ea 09/24/22 Lancets) pen needle, diabetic 31 gauge x #100 ea 09/24/2203/17 (Comfort EZ Pen [place]) flash glucose scanning reader #1 ea 10/09/22 (FreeStyle Tim[place] 2 [place]) atorvastatin 80 mg tablet 80 mg PO DAILY #90 tabs 10/17/22 bupropion HCl 300 mg 24 hr tablet, 300 mg PO DAILY #90 tabs 10/17/22 extended release levothyroxine 125 mcg tablet 125 mcg PO DAILY #90 tabs 10/17/22 quetiapine 25 mg tablet 25 mg PO BEDTIME #90 tabs 10/17/22 flash glucose sensor #1 ea 11/19/22 citalopram 40 mg tablet (Celexa) 40 mg PO DAILY #90 tabs 12/02/22 insulin aspart U-100 100 unit/mL See Rx Instructions SUBCUT 12/05/22 (3 mL) subcutaneous pen (Novolog .COMPLEX #15 mL FlexPen U-100 Insulin aspart) insulin glargine U-300 conc 300 90 unit (0.3 mL) SUBCUT BID #15 mL 12/05/22 unit/mL (3 mL) subcutaneous pen lorazepam 1 mg tablet 1 mg PO 2XD #60 tabs 01/20/23 gabapentin 300 mg capsule See Rx Instructions .Route 03/05/23 .COMPLEX #60 caps oxycodone 5 mg tablet 5 mg PO Q4-6H PRN Pain, Moderate 03/16/23 #60 tabs albuterol sulfate 90 mcg/actuation 2 puff inhalation QID PRN 03/24/23 aerosol inhaler (Proventil HFA) shortness of breath #18 grams omeprazole 20 mg capsule,delayed 20 mg PO DAILY #30 caps 04/03/23 release Allergies Allergy/AdvReac Type Severity Reaction Status Date / Time adhesive Allergy Mild REDNESS/ITC Verified 12/17/22 15:39 HINESS morphine Allergy Verified 12/17/22 15:39 Review of Systems Review of Systems Narrative: Pertinent positive and negative findings as per HPI Patient History Medical History Bilateral otitis externa Borderline hyperlipidemia Cellulitis Chicken pox (7) Chickenpox (1956) Chronic cough COPD (chronic obstructive pulmonary disease) Coronary artery disease (2006) Depression (2008) Diabetes (1994) Eczema Foot pain GERD (gastroesophageal reflux disease) (2012) Gout Hearing reduced Hip pain History of recurrent TIAs Hyperlipidemia Hypertension Hypothyroidism Kidney disease (2009) Measles (6) Measles (1955) Mental health assessment declined Mumps (1958) Mumps (1958) Neuropathy Obstructive sleep apnea Otitis externa Screening for malignant neoplasm of colon Shoulder pain Sleep apnea Status post myocardial infarction Steatosis Strain of muscle of right groin region (03/30/18) Type 2 diabetes mellitus Well adult exam Surgical History Anesthesia History of heart artery stent (2006) History of heart artery stent (2010) Hx of shoulder surgery (2005) Family History Brother Age: 68 Diabetes mellitus Hyperlipidemia Mother Heart disease Hypertension Hyperlipidemia Diabetes mellitus Grandmother Diabetes mellitus Brother No problems noted. Sister Breast cancer Social History marital status: details: 3 years ago household members: none lives independently: Yes housing: apartment Smoking Status: Current every day smoker Tobacco: How many years used: 45 alcohol intake: current Smoking Status: Current every day smoker alcohol intake frequency: 0-2 drinks per day Substance Use Type: marijuana Exam Initial Vital Signs Initial Vital Signs: Vital Signs Blood Pressure 111/65 04/07/23 03:49 General: Slightly disheveled but in no acute distress. Able to to participate with history and exam. Well-nourished well-developed HEENT: Moist mucous membranes, normal sclera with reactive pupils, head is atraumatic. No obvious contusions or skull fracture. No bleeding from his fall. Neck: No JVD, no cervical spine tenderness Respiratory: Lungs are clear to auscultation, no wheezing no rales no rhonchi. Full and symmetrical air movement Cardiac: Regular rate and rhythm no murmurs no bruits Abdomen: Distended and tympanitic but nontender, no flank pain Skin: Chronic venous stasis changes. Minor abrasions on the lateral aspects of both calves without evidence of infection. Neurologic: Grossly neurologically intact with no obvious asymmetries or abnormalities Extremities: No new trauma related to his fall. 2+ bilateral lower extremity edema. Psych: Cooperative, poor overall insight Course Orders Ordered: ED Orders 04/07/23 03:54 CT cervical spine wo con Stat CT head/brain wo con Stat Vital Signs Vital signs: Vital Signs - 8 hr 04/07/23 03:51 04/07/23 03:49 04/07/23 03:50 Temperature 98.4 F Pulse Rate 86 89 Respiratory Rate 20 Blood Pressure 111/65 111/65 Pulse Oximetry 93 92 Oxygen Delivery Method Room Air Room Air 04/07/23 04:01 04/07/23 04:03 04/07/23 04:03 Temperature Pulse Rate 89 88 Respiratory Rate 11 L Blood Pressure 106/57 L Pulse Oximetry 95 93 Oxygen Delivery Method 04/07/23 04:05 04/07/23 04:05 04/07/23 04:30 Temperature Pulse Rate 87 Respiratory Rate 13 Blood Pressure 116/61 149/70 H Pulse Oximetry 92 Oxygen Delivery Method 04/07/23 04:30 Temperature Pulse Rate 91 H Respiratory Rate 24 Blood Pressure Pulse Oximetry 92 Oxygen Delivery Method Medical Decision Making Lab Data Labs: Point of Care Testing Glucose POC 100 Point of care testing: Point of Care Testing Glucose POC 100 MDM Narrative Medical decision making narrative: CC: Stood up from wheelchair, fell backward hit head currently on Plavix. Is an acute problem uncertain prognosis Complicating co-morbidities: Age, anticoagulation, Parkinson's disease, Lewy body dementia, alcohol and marijuana use this evening Data collected from: patient, medics Social determinants of health that may influence the patients condition: Increasingly complex medical history and continuing to live independently with alcohol and marijuana use regularly Medical records reviewed: [facility] records reviewed from December of 2022. Differential considered: Acute head injury, intracranial bleed, cervical spine injury other trauma from his fall Exam documented above, pertinent findings include: No abrasions or contusions to the head. No significant neck tenderness. No obvious trauma to extremities. Belly is significantly distended and tympanitic but he feels it is at his baseline and is nontender Imaging studies independently reviewed: CT scan of the head reveals no fractures no intracranial hemorrhage. CT scan of the cervical spine reveals no bony injury Discussion: 67-year-old gentleman with multiple medical problems including Lewy body dementia, Parkinson's disease essentially wheelchair-bound and living independently. He had a mechanical fall likely related to slight gait instability due to alcohol intoxication this evening. No evidence of intracranial bleeding or cervical spine injury. He is on Plavix. At this point he is at his baseline and will be discharged home. Additional Information: Emergency Medicine: Utilization of CT for Minor Blunt Head Trauma (Adult) Patient is 18 or older, presenting with minor blunt head trauma. Head CT ordered by an emergency associate director career services for trauma because the patient: [x ] is suspected of taking anticoagulant medications [ x] is 65 years or older [x ] is intoxicated Discharge Plan Departure Patient Disposition: Home Clinical Impression: Anticoagulated Fall Qualifiers: Encounter type: initial encounter Qualified Code(s): W19.XXXA - Unspecified fall, initial encounter Head injury Qualifiers: Encounter type: initial encounter Qualified Code(s): S09.90XA - Unspecified injury of head, initial encounter Activity Restrictions/Additional Instructions: Thank you for coming in today I am sorry that you ended up falling and hitting her head. Fortunately there is no evidence of bleeding in your head, skull fracture or neck injury. You may have some minor tenderness from the fall over the next day or 2. Using Tylenol can be helpful for this. There is no evidence of more significant injury or life-threatening abnormality that would require further evaluation or hospitalization today. If you find that you are getting worse or develop any new symptoms, please feel free to return to the emergency department for further evaluation. Prescriptions: No Action (DME) blood-glucose meter Kit See Rx Instructions .ROUTE .MEDSUPPLY Qty: 1 0RF Rx Instructions: Use to test blood glucose BID (DME) Disabled Parking Permit See Rx Instructions .ROUTE .MEDSUPPLY Qty: 1 0RF Rx Instructions: Valid for 5 years methocarbamol 500 mg tablet 500 mg PO TID PRN (Reason: mm tightness) Qty: 90 1RF triamcinolone acetonide 0.1 % cream 1 applic TOP DAILY Qty: 30 5RF tamsulosin 0.4 mg capsule 0.4 mg PO BEDTIME Qty: 90 3RF (DME) pen needle, diabetic [Comfort EZ Pen [place]] 31 gauge x 5/16 needle See Dose Instructions .ROUTE .MEDSUPPLY Qty: 100 5RF Dose Instruction: As directed Rx Instructions: Use to inject insulin 5 times per day (DME) lancets [BD Ultra Fine Lancets] 33 gauge misc See Rx Instructions .ROUTE .MEDSUPPLY Qty: 100 6RF Rx Instructions: Use to test blood glucose twice daily (DME) Blood Glucose Test Strip See Rx Instructions .ROUTE .MEDSUPPLY Qty: 100 6RF Rx Instructions: Use to test blood glucose twice daily. (DME) FreeStyle Timmy 2 [place] Misc See Rx Instructions .ROUTE .MEDSUPPLY Qty: 1 12RF Rx Instructions: As directed levothyroxine 125 mcg tablet 125 mcg PO DAILY Qty: 90 3RF quetiapine 25 mg tablet 25 mg PO BEDTIME Qty: 90 3RF atorvastatin 80 mg tablet 80 mg PO DAILY Qty: 90 3RF bupropion HCl 300 mg tablet extended release 24 hr 300 mg PO DAILY Qty: 90 3RF (DME) flash glucose sensor Kit See Rx Instructions .Route Qty: 1 3RF Rx Instructions: Use to check blood sugars twice daily. citalopram [Celexa] 40 mg tablet 40 mg PO DAILY Qty: 90 0RF Rx Instructions: NEEDS TO BE SEEN IN PERSON lorazepam 1 mg tablet 1 mg PO 2XD Qty: 60 1RF gabapentin 300 mg capsule See Rx Instructions .ROUTE .COMPLEX Qty: 60 2RF Dose Instruction: TAKE 1 CAPSULE BY MOUTH TWICE DAILY Rx Instructions: TAKE 1 CAPSULE BY MOUTH TWICE DAILY oxycodone 5 mg tablet 5 mg PO Q4-6H PRN (Reason: Pain, Moderate) Qty: 60 0RF albuterol sulfate [Proventil HFA] 90 mcg/actuation HFA aerosol inhaler 2 puff INHALATION QID PRN (Reason: shortness of breath) Qty: 18 5RF omeprazole 20 mg capsule,delayed release(DR/EC) 20 mg PO DAILY Qty: 30 3RF beclomethasone dipropionate 40 mcg/actuation HFA aerosol breath activated 1 inh Inhalation BID Qty: 10.6 5RF insulin glargine U-300 conc 300 unit/mL (3 mL) insulin pen 90 unit SUBCUT BID Qty: 15 11RF Novolog FlexPen U-100 Insulin 100 unit/mL (3 mL) insulin pen See Rx Instructions SUBCUT .COMPLEX Qty: 15 11RF Rx Instructions: 10 units a.c. t.i.d. depending on carbohydrate content of meal ipratropium-albuterol 0.5 mg-3 mg(2.5 mg base)/3 mL Solution For Nebulization 3 ml INH QID Qty: 360 0RF Referrals: Gasper Rutherford, [Primary Care Provider] - Stand Alone Forms: Patient Portal/API
== END 2023-04-07 06:06 | disposition home or self-care (01) ==
PROVIDERS: Emergency Provider Emergency Medicine; PCP Family Medicine
DX: S09.90XA Unspecified injury of head, initial encounter (principal); W01.198A Fall on same level from slipping, tripping and stumbling with subsequent striking against other object, initial encounter; Z79.01 Long term (current) use of anticoagulants
CPT/HCPCS: 70450; 72125; 82962; 99284

== ENCOUNTER → 2023-04-14 13:55 | Outpatient (CLI) | payer OTHER, MEDICAID, SELFPAY ==
[2022-12-12 10:26] VITALS: BMI 33.9
[2023-04-14 15:01] LABS: Add Manual Diff / Slide Review NO; Basophils Absolute Auto 0 /uL (0-100); Basophils Percent Auto 0.1 % (0-2); Eosinophils Absolute Auto 200 /uL (0-450); Eosinophils Percent Auto 2.8 % (2-4); Hemoglobin 13.8 g/dL (13.5-17.5); Lymphocytes Absolute Auto 1600 /uL (1100-4500); Lymphocytes Percent Auto 17.6 % (25-40); Mean Corpuscular HGB Conc 34.4 % (30-36); Mean Corpuscular Hemoglobin 30.1 PG (26-34); Mean Corpuscular Volume 87.5 fL (80-100); Monocytes Absolute Auto 700 /uL (0-900); Monocytes Percent Auto 7.4 % (3-14); Neutrophils Absolute Auto 6500 /uL (1500-7000); Neutrophils Percent Auto 72.1 % (50-75); Platelet Count 269 X10^3/uL (150-400); Red Blood Cell Count 4.57 X10^6/uL (4.5-5.9); Red Cell Distribution Width 15.8 % (11.6-14.8)
[2023-04-14 16:27] LABS: Alanine Aminotransferase 34 IU/L (<50); Albumin 3.7 g/dL (3.5-5.0); Alkaline Phosphatase 88 U/L (38-126); Aspartate Aminotransferase 35 IU/L (17-59); BUN Creatinine Ratio 11.5 (6-22); Bilirubin Total 0.4 mg/dL (0.2-1.3); Blood Urea Nitrogen 9 mg/dL (9-20); Calcium 8.7 mg/dL (8.4-10.2); Carbon Dioxide 30 mmol/L (22-32); Chloride 105 mmol/L (98-107); Cholesterol 142 mg/dL (140-199); Estimated Glomerular Filt Rate > 60 mL/min (>60); Globulin 3.6 g/dL (1.7-4.1); Glucose 73 mg/dL (80-110); HDL Cholesterol 58 mg/dL (40-60); HEMOLYSIS < 15 (0-50); LDL Cholesterol Calculated 70 mg/dL (<100); Potassium 4.1 mmol/L (3.4-5.1); Sodium 140 mmol/L (137-145); Total Protein 7.3 g/dL (6.3-8.2); Triglycerides 72 mg/dL (35-150)
[2023-04-14 17:33] LABS: Creatinine Urine Random 149.4 mg/dL
[2023-04-14 18:56] LABS: Microalbumi Creatinin Ratio Ur 5829.9 ug/mg CR (<30)
[2023-04-15 03:15] LABS: Labcorp Hemoglobin (Hb) A1c 7.2 % (4.8-5.6)
== END ==
PROVIDERS: PCP Family Medicine; Referring Provider Family Medicine; Visit Provider Family Medicine
DX: R41.82 Altered mental status, unspecified (principal)
CPT/HCPCS: 36415; 80053; 80061; 82043; 82570; 83036; 85025

== ENCOUNTER → 2023-12-04 10:27 | Outpatient (CLI) | payer OTHER, MEDICAID, SELFPAY ==
[2022-12-12 10:26] VITALS: BMI 33.9
[2023-12-04 11:13] LABS: Add Manual Diff / Slide Review NO; Basophils Absolute Auto 0 /uL (0-100); Basophils Percent Auto 0.2 % (0-2); Eosinophils Absolute Auto 200 /uL (0-450); Hematocrit 40.4 % (41-53); Hemoglobin 13.9 g/dL (13.5-17.5); Lymphocytes Absolute Auto 1800 /uL (1100-4500); Lymphocytes Percent Auto 22.3 % (25-40); Mean Corpuscular HGB Conc 34.5 % (30-36); Mean Corpuscular Hemoglobin 30.6 PG (26-34); Mean Corpuscular Volume 88.7 fL (80-100); Monocytes Absolute Auto 600 /uL (0-900); Monocytes Percent Auto 7.7 % (3-14); Neutrophils Absolute Auto 5500 /uL (1500-7000); Neutrophils Percent Auto 67.8 % (50-75); Platelet Count 227 X10^3/uL (150-400); Red Blood Cell Count 4.56 X10^6/uL (4.5-5.9); Red Cell Distribution Width 14.7 % (11.6-14.8); White Blood Cell Count 8.1 X10^3/uL (4.5-11.0)
[2023-12-04 11:21] LABS: Alanine Aminotransferase 26 IU/L (<50); Albumin 3.9 g/dL (3.5-5.0); Albumin Globulin Ratio 1.1 (1.0-2.8); Alkaline Phosphatase 60 U/L (38-126); Aspartate Aminotransferase 26 IU/L (17-59); Bilirubin Total 0.5 mg/dL (0.2-1.3); Blood Urea Nitrogen 12 mg/dL (9-20); Calcium 9.5 mg/dL (8.4-10.2); Carbon Dioxide 27 mmol/L (22-32); Chloride 104 mmol/L (98-107); Cholesterol 146 mg/dL (140-199); Estimated Glomerular Filt Rate > 60 mL/min (>60); Globulin 3.7 g/dL (1.7-4.1); Glucose 159 mg/dL (80-110); HDL Cholesterol 40 mg/dL (40-60); HEMOLYSIS < 15 (0-50); LDL Cholesterol Calculated 84 mg/dL (<100); Potassium 4.1 mmol/L (3.4-5.1); Sodium 139 mmol/L (137-145); Total Protein 7.6 g/dL (6.3-8.2); Triglycerides 112 mg/dL (35-150)
[2023-12-04 11:34] LABS: Hemoglobin A1C% w Est Avg Glu 9.1 % (4.0-6.0)
[2023-12-04 13:20] LABS: Appearance Urine UA CLEAR; Bilirubin Urine UA NEGATIVE (NEGATIVE); Color Urine UA YELLOW; Glucose Urine UA NEGATIVE (Negative); Ketones Urine UA NEGATIVE (NEGATIVE); Leukocyte Esterase Urine UA NEGATIVE (NEGATIVE); Nitrite Urine UA NEGATIVE (Negative); Occult Blood Urine UA TRACE-INTACT (Negative); Protein Urine UA 3+ (Negative); Specific Gravity Urine UA >=1.030 (1.000-1.035); pH Urine UA 5.5 (4.5-8.0)
[2023-12-04 13:40] LABS: Bacteria Urine Occasional (0-1); Mucus Urine 2+ (Negative); RBC Urine 0-1/HPF (0-5/HPF); Squamous Epithelial Cell Urine 0-1 /HPF (0-5/HPF); Urine Volume 10mL (spun); WBC Urine 0-1/HPF (0-5/HPF)
[2023-12-04 13:41] LABS: Culture Indicated Urine Cult Not Indicated
[2023-12-04 15:30] LABS: Creatinine Urine Random 149.9 mg/dL
[2023-12-04 16:34] LABS: Microalbumi Creatinin Ratio Ur 3949.2 ug/mg CR (<30)
== END ==
PROVIDERS: PCP Family Medicine; Referring Provider Family Medicine; Visit Provider Family Medicine
DX: L98.9 Disorder of the skin and subcutaneous tissue, unspecified (principal); I10 Essential (primary) hypertension; N39.3 Stress incontinence (female) (male); G20.A1 Parkinson's disease without dyskinesia, without mention of fluctuations
CPT/HCPCS: 36415; 80053; 80061; 81001; 82043; 82570; 83036; 84443; 85025

== ENCOUNTER → 2023-12-11 17:49 | Outpatient (CLI) | payer OTHER, MEDICAID, SELFPAY ==
[2022-12-12 10:26] VITALS: BMI 33.9
--- NOTE | 2023-12-11 17:50 | DI.RAD.S_ITS ---
PROCEDURE: XR HIP W PEL IF DONE RT 2V INDICATIONS: R hip pain TECHNIQUE: 2 views of the hip were acquired. COMPARISON: [facility], CR, XR HIP W PEL IF DONE LT 2V, 11/08/2021, 22:27. FINDINGS: Bones: No fractures or dislocations. Moderate bilateral femoroacetabular joint space narrowing and juxta-articular osteophytosis. No suspicious bony lesions. The visualized pelvic ring appears intact. Degenerative changes of the lower lumbar spine and bilateral SI joints. Soft tissues: No suspicious soft tissue calcifications or masses. Bilateral lower extremity vascular calcifications. IMPRESSION: 1. No acute bony abnormality. If there is high clinical suspicion for a radiographically occult fracture, consider cross-sectional imaging for further evaluation. 2. Moderate bilateral hip osteoarthritis. Dictated by: Chrissy Duenas M.D. on 12/12/2023 at 13:25 Approved by: Chrissy Duenas M.D. on 12/12/2023 at 13:27
== END ==
PROVIDERS: PCP Family Medicine; Referring Provider Family Medicine; Visit Provider Family Medicine
DX: M16.0 Bilateral primary osteoarthritis of hip (principal); M25.551 Pain in right hip
CPT/HCPCS: 73502

== ENCOUNTER 2024-01-22 20:52 | Emergency (ER) | payer MEDICARE, MEDICAID, SELFPAY ==
[2022-12-12 10:26] VITALS: BMI 33.9
[2024-01-22 21:08] VITALS: BP 116/58; PULSE 78; RESP 20; TEMP 36.6; O2SAT 96; BMI 29.8
== END 2024-01-22 22:11 | disposition left against medical advice (07) ==
PROVIDERS: Emergency Provider Emergency Medicine; PCP Family Medicine
DX: R10.32 Left lower quadrant pain (principal)
CPT/HCPCS: 99281

== ENCOUNTER → 2024-02-02 08:50 | Outpatient (CLI) | payer MEDICARE, MEDICAID, SELFPAY ==
[2022-12-12 10:26] VITALS: BMI 33.9
--- NOTE | 2024-02-02 08:51 | DI.US.S_ITS ---
PROCEDURE: US ABDOMEN LIMITED INDICATIONS: left side groin pain TECHNIQUE: Real-time scanning was performed of the left lower quadrant abdomen, with image documentation. COMPARISON: [facility], , US ABDOMEN LIMITED, 04/29/2021, 7:57. FINDINGS: Limited ultrasound examination of left lower abdomen/inguinal region shows no inguinal fascial defect or herniation sac. Mildly prominent left inguinal lymph no measures 0.9 cm in AP dimension is seen. Normal fatty hilum is seen. IMPRESSION: 1. No left inguinal hernia or abdominal wall defect. 2. Benign-appearing sub cm lymph no in left inguinal region. Dictated by: Keron Colunga M.D. on 02/02/2024 at 10:19 Approved by: Keron Colunga M.D. on 02/02/2024 at 10:20
== END ==
LOC: US 08:50
PROVIDERS: PCP Family Medicine; Referring Provider Physician Assistant; Visit Provider Physician Assistant
DX: R10.32 Left lower quadrant pain (principal)
CPT/HCPCS: 76705

== ENCOUNTER 2024-02-07 18:08 | Emergency (ER) | payer MEDICARE, MEDICAID, SELFPAY ==
[2022-12-12 10:26] VITALS: BMI 33.9
[2024-02-07 18:05] VITALS: BP 119/71; PULSE 73; RESP 16; TEMP 37.1; O2SAT 97; BMI 29.8
[2024-02-07 18:16] VITALS: PULSE 74; O2SAT 98
--- NOTE | 2024-02-07 18:16 | ED_ITS ---
HPI - General Adult General Chief complaint: Extremity Problem,Nontraumatic Stated complaint: Left Hip Px Time Seen by Provider: 02/07/24 18:12 History of Present Illness HPI narrative: 68-year-old male with history of Lewy body dementia, COPD, diabetes presents by EMS from home for 1 month of atraumatic left hip pain. Patient states that he has oxycodone at home but did not take it today. He normally has home health care that assist him in the home Thursday through , as patient is primarily wheelchair-bound. Patient denies new accident or injury. He states that his primary care doctor ordered an ultrasound of his groin in the past, but he denies ever having imaging done of his left hip. Patient here today for imaging of his hip ?to see what is going on?. Related Data Previous Rx's Medication Instructions Recorded blood-glucose meter #1 ea 01/11/21 Disabled Parking Permit #1 ea 02/15/21 tamsulosin 0.4 mg capsule 0.4 mg PO BEDTIME #90 caps 06/17/22 blood sugar diagnostic (Blood #100 ea 09/24/22 Glucose Test strips) lancets 33 gauge (BD Ultra Fine #100 ea 09/24/22 Lancets) pen needle, diabetic 31 gauge x #100 ea 09/24/2203/17 (Comfort EZ Pen [place]) flash glucose scanning reader #1 ea 10/09/22 (FreeStyle Tim[place] 2 [place]) albuterol sulfate 90 mcg/actuation 2 puff inhalation QID PRN 03/24/23 aerosol inhaler (Proventil HFA) shortness of breath #18 grams ipratropium 0.5 mg-albuterol 3 mg See Rx Instructions .Route 04/24/23 (2.5 mg base)/3 mL nebulization .COMPLEX #90 mL soln lorazepam 1 mg tablet 1 mg PO 2XD #60 tabs 08/03/23 bupropion HCl 300 mg 24 hr tablet, 300 mg PO DAILY #90 tabs 09/07/23 extended release Novolog FlexPen U-100 Insulin 100 See Rx Instructions SUBCUT 10/01/23 unit/mL (3 mL) subcutaneous .COMPLEX #15 mL (insulin aspart U-100) quetiapine 25 mg tablet 25 mg PO BEDTIME #90 tabs 10/02/23 atorvastatin 80 mg tablet 80 mg PO DAILY #90 tabs 10/22/23 omeprazole 20 mg capsule,delayed 20 mg PO DAILY #30 caps 11/09/23 release insulin glargine U-300 conc 300 90 unit (0.3 mL) SUBCUT BID #15 mL 11/30/23 unit/mL (3 mL) subcutaneous pen gabapentin 300 mg capsule 600 mg (2 x 300 mg) PO BID #120 12/07/23 caps beclomethasone dipropionate 40 1 inh inhalation BID Shortness Of 12/11/23 mcg/actuation HFA breath activated Breath #10.6 grams aerosol semaglutide 0.25 mg or 0.5 mg (2 0.5 mg (0.736 mL) SUBCUT QWEEK #3 12/11/23 mg/3 mL) subcutaneous pen injector mL (Ozempic) levothyroxine 125 mcg tablet 125 mcg PO DAILY #90 tabs 01/07/24 oxycodone 5 mg tablet 5 mg PO Q4-6H PRN Pain, Moderate 01/14/24 #60 tabs nystatin 100,000 unit/gram topical 1 applic topical TID PRN Tinea 01/15/24 powder cruris #30 grams flash glucose sensor #1 ea 01/20/24 naproxen 500 mg tablet 500 mg PO BID PRN pain #40 tabs 01/26/24 terbinafine HCl 250 mg tablet 250 mg PO DAILY #14 tabs 01/26/24 Allergies Allergy/AdvReac Type Severity Reaction Status Date / Time adhesive Allergy Mild REDNESS/ITC Verified 02/07/24 18:14 HINESS morphine Allergy Verified 02/07/24 18:14 Review of Systems Review of Systems Narrative: Negative except as noted above Patient History Medical History Skin sore Stress incontinence Borderline hyperlipidemia Hip pain Cellulitis Mental health assessment declined Steatosis Bilateral otitis externa Sleep apnea Otitis externa Hearing reduced Screening for malignant neoplasm of colon Type 2 diabetes mellitus History of recurrent TIAs Well adult exam Strain of muscle of right groin region (03/30/18) Chicken pox (1956) Measles (1955) Mumps (1958) Status post myocardial infarction Neuropathy Eczema Chronic cough Depression (2009) Obstructive sleep apnea Gout Shoulder pain Foot pain Chickenpox (1956) Measles (6) Mumps (1959) Kidney disease (2009) GERD (gastroesophageal reflux disease) (2012) Hypothyroidism Hypertension Hyperlipidemia Diabetes (1994) Coronary artery disease (2006) COPD (chronic obstructive pulmonary disease) Surgical History Anesthesia History of heart artery stent (2010) History of heart artery stent (2006) Hx of shoulder surgery (2005) Family History Brother Age: 69 Diabetes mellitus Hyperlipidemia Mother Heart disease Hypertension Hyperlipidemia Diabetes mellitus Grandmother Diabetes mellitus Brother No problems noted. Sister Breast cancer Social History marital status: details: 3 years ago household members: none lives independently: Yes housing: apartment Smoking Status: Current every day smoker Tobacco: How many years used: 45 alcohol intake: current Smoking Status: Current every day smoker alcohol intake frequency: 0-2 drinks per day Substance Use Type: marijuana Exam Initial Vital Signs Initial Vital Signs: Vital Signs Temperature 98.7 F 02/07/24 18:05 Pulse Rate 73 02/07/24 18:05 Respiratory Rate 16 02/07/24 18:05 Blood Pressure 119/71 02/07/24 18:05 Pulse Oximetry 97 02/07/24 18:05 Oxygen Delivery Method Room Air 02/07/24 18:05 Const: Awake, alert, no acute distress, debilitated, frail Cardiac: regular rate, regular rhythm RESP: unlabored, clear bilaterally, no wheezing MSK: Atraumatic, full range of motion, no reproducible tenderness to palpation over left hip, no deformity Skin: Warm, Dry, intact, no rashes Neuro: AO x3, CN II-XII grossly intact, moves all extremities Course Orders Ordered: ED Orders 02/07/24 18:16 XR hip w pel if done LT 2V Stat Vital Signs Vital signs: Vital Signs - 8 hr 02/07/24 18:05 02/07/24 18:16 02/07/24 18:30 Temperature 98.7 F Pulse Rate 73 74 Respiratory Rate 16 Blood Pressure 119/71 Pulse Oximetry 97 98 97 Oxygen Delivery Method Room Air Room Air 02/07/24 19:18 Temperature Pulse Rate 79 Respiratory Rate 16 Blood Pressure 115/66 Pulse Oximetry 97 Oxygen Delivery Method Room Air Medical Decision Making Lab Data Labs: Point of Care Testing Glucose POC 148 Point of care testing: Point of Care Testing Glucose POC 148 Imaging Data Extremity x-ray #1: Radiologist's Impression: PROCEDURE: XR HIP W PEL IF DONE LT 2V INDICATIONS: 1 month atraumatic progressive hip pain TECHNIQUE: 2 views of the hip were acquired. COMPARISON: [facility], CR, XR HIP W PEL IF DONE RT 2V, 12/11/2023, 17:58. FINDINGS: Bones: No fractures or dislocations. No suspicious bony lesions. The visualized pelvic ring appears intact. Moderate joint space narrowing and subchondral sclerosis Soft tissues: Atherosclerotic small vessel vascular calcification IMPRESSION: Moderate osteoarthritis without fracture Approved by: Terrence Harrell M.D. on 02/07/2024 at 17:51 MDM Narrative Medical decision making narrative: Chronic atraumatic left hip pain. No significant change today, patient has not taken his home medications, he reports that he was frustrated that he was no diagnosis in his here today for additional evaluation. Patient was neurovascularly intact, there was no deformity or lesions on his hip. X-ray imaging shows osteoarthritis without any other findings. Patient counseled on his imaging findings and recommended that he take the prescribed pain medications he was given by his doctor and recommended continued follow up with his PCP for further investigation of his hip pain Discharge Plan Departure Patient Disposition: Home Clinical Impression: Osteoarthritis Instructions: DI for Osteoarthritis Activity Restrictions/Additional Instructions: Your x-rays show mild osteoarthritis. Please follow up with your primary care doctor. If you has been prescribed oxycodone you may continue to take that as needed for pain. Prescriptions: No Action (DME) blood-glucose meter Kit See Rx Instructions .ROUTE .MEDSUPPLY Qty: 1 0RF Rx Instructions: Use to test blood glucose BID (DME) Disabled Parking Permit See Rx Instructions .ROUTE .MEDSUPPLY Qty: 1 0RF Rx Instructions: Valid for 5 years tamsulosin 0.4 mg capsule 0.4 mg PO BEDTIME Qty: 90 3RF (DME) pen needle, diabetic [Comfort EZ Pen [place]] 31 gauge x 5/16 needle See Dose Instructions .ROUTE .MEDSUPPLY Qty: 100 5RF Dose Instruction: As directed Rx Instructions: Use to inject insulin 5 times per day (DME) lancets [BD Ultra Fine Lancets] 33 gauge misc See Rx Instructions .ROUTE .MEDSUPPLY Qty: 100 6RF Rx Instructions: Use to test blood glucose twice daily (DME) Blood Glucose Test Strip See Rx Instructions .ROUTE .MEDSUPPLY Qty: 100 6RF Rx Instructions: Use to test blood glucose twice daily. (DME) FreeStyle Timmy 2 [place] Misc See Rx Instructions .ROUTE .MEDSUPPLY Qty: 1 12RF Rx Instructions: As directed albuterol sulfate [Proventil HFA] 90 mcg/actuation HFA aerosol inhaler 2 puff INHALATION QID PRN (Reason: shortness of breath) Qty: 18 5RF ipratropium-albuterol 0.5 mg-3 mg(2.5 mg base)/3 mL solution for nebulization See Rx Instructions .ROUTE .COMPLEX Qty: 90 1RF Dose Instruction: USE 3 ML VIA NEBULIZER EVERY 4 TO 6 HOURS NEEDED FOR SHORTNESS OF BREATH OR WHEEZING Rx Instructions: USE 3 ML VIA NEBULIZER EVERY 4 TO 6 HOURS NEEDED FOR SHORTNESS OF BREATH OR WHEEZING lorazepam 1 mg tablet 1 mg PO 2XD Qty: 60 0RF bupropion HCl 300 mg tablet extended release 24 hr 300 mg PO DAILY Qty: 90 3RF Novolog FlexPen U-100 Insulin 100 unit/mL (3 mL) insulin pen See Rx Instructions SUBCUT .COMPLEX Qty: 15 11RF Rx Instructions: 10 units a.c. t.i.d. depending on carbohydrate content of meal quetiapine 25 mg tablet 25 mg PO BEDTIME Qty: 90 3RF atorvastatin 80 mg tablet 80 mg PO DAILY Qty: 90 3RF omeprazole 20 mg capsule,delayed release(DR/EC) 20 mg PO DAILY Qty: 30 3RF insulin glargine U-300 conc 300 unit/mL (3 mL) insulin pen 90 unit SUBCUT BID Qty: 15 11RF gabapentin 300 mg capsule 600 mg PO BID Qty: 120 1RF levothyroxine 125 mcg tablet 125 mcg PO DAILY Qty: 90 0RF oxycodone 5 mg tablet 5 mg PO Q4-6H PRN (Reason: Pain, Moderate) Qty: 60 0RF nystatin 100,000 unit/gram powder 1 applic topical TID PRN (Reason: Tinea cruris) Qty: 30 1RF (DME) flash glucose sensor Kit See Rx Instructions .Route Qty: 1 3RF Rx Instructions: Use to check blood sugars twice daily. beclomethasone dipropionate 40 mcg/actuation HFA aerosol breath activated 1 inh Inhalation BID Qty: 10.6 5RF Ozempic 0.25 mg or 0.5 mg (2 mg/3 mL) pen injector 0.5 mg SUBCUT QWEEK Qty: 3 1RF Rx Instructions: start injecting 0.5 mg every week naproxen 500 mg tablet 500 mg PO BID PRN (Reason: pain) Qty: 40 0RF terbinafine HCl 250 mg tablet 250 mg PO DAILY Qty: 14 0RF Referrals: Gasper Rutherford, [Primary Care Provider] - Stand Alone Forms: Patient Portal/API
[2024-02-07 18:30] VITALS: O2SAT 97
--- NOTE | 2024-02-07 18:30 | PC.NURSE ---
Pt reports neuropathy in BLE, tingling sensation which is not new. No visual abnormality to left leg. Pt alert and oriented. He called his son Teja to see if he can give him a ride home if he discharges.
--- NOTE | 2024-02-07 18:38 | PC.NURSE ---
PT reports his BG was 170's at EMS arrival and he injected 80units of long acting insulin, it starts with a t.... BG 146 upon arrival to ER.
[2024-02-07 19:18] VITALS: BP 115/66; PULSE 79; RESP 16; O2SAT 97
== END 2024-02-07 19:22 | disposition home or self-care (01) ==
PROVIDERS: Emergency Provider Emergency Medicine; PCP Family Medicine
DX: M16.12 Unilateral primary osteoarthritis, left hip (principal)
CPT/HCPCS: 73502; 82962; 99283

== ENCOUNTER 2024-03-06 17:00 | Emergency (ER) | payer MEDICARE, MEDICAID, SELFPAY ==
[2022-12-12 10:26] VITALS: BMI 33.9
--- NOTE | 2024-03-06 17:06 | ED_ITS ---
HPI - Chest Pain <Abdiaziz Hua PA-C - Last Filed: 03/06/24 19:15> General Chief Complaint: Chest Pain Stated Complaint: Chest Discomfort Time Seen by Provider: 03/06/24 17:05 History of Present Illness HPI narrative: This is a 68-year-old male presents emergency department due to an episode of chest pain onset yesterday afternoon. The chest pain continued and patient took a tablet of nitro this ran about 4 hours ago. He states the chest pain continued he called EMS to be transferred here. Here also reports mild nausea as well as a few episodes of vomiting as well as some mild shortness of breath. History of stents in 2006 as well as 2010. Has seen a sales property manager in the past but most recent was 4 years ago. Denies any abdominal pain, fevers, or any other concerning signs or symptoms. Related Data Previous Rx's Medication Instructions Recorded blood-glucose meter #1 ea 01/11/21 Disabled Parking Permit #1 ea 02/15/21 tamsulosin 0.4 mg capsule 0.4 mg PO BEDTIME #90 caps 06/17/22 blood sugar diagnostic (Blood #100 ea 09/24/22 Glucose Test strips) lancets 33 gauge (BD Ultra Fine #100 ea 09/24/22 Lancets) pen needle, diabetic 31 gauge x #100 ea 09/24/2203/17 (Comfort EZ Pen [place]) flash glucose scanning reader #1 ea 10/09/22 (FreeStyle [place]) albuterol sulfate 90 mcg/actuation 2 puff inhalation QID PRN 03/24/23 aerosol inhaler (Proventil HFA) shortness of breath #18 grams ipratropium 0.5 mg-albuterol 3 mg See Rx Instructions .Route 04/24/23 (2.5 mg base)/3 mL nebulization .COMPLEX #90 mL soln lorazepam 1 mg tablet 1 mg PO 2XD #60 tabs 08/03/23 bupropion HCl 300 mg 24 hr tablet, 300 mg PO DAILY #90 tabs 09/07/23 extended release Novolog FlexPen U-100 Insulin 100 See Rx Instructions SUBCUT 10/01/23 unit/mL (3 mL) subcutaneous .COMPLEX #15 mL (insulin aspart U-100) quetiapine 25 mg tablet 25 mg PO BEDTIME #90 tabs 10/02/23 atorvastatin 80 mg tablet 80 mg PO DAILY #90 tabs 10/22/23 omeprazole 20 mg capsule,delayed 20 mg PO DAILY #30 caps 11/09/23 release insulin glargine U-300 conc 300 90 unit (0.3 mL) SUBCUT BID #15 mL 11/30/23 unit/mL (3 mL) subcutaneous pen beclomethasone dipropionate 40 1 inh inhalation BID Shortness Of 12/11/23 mcg/actuation HFA breath activated Breath #10.6 grams aerosol semaglutide 0.25 mg or 0.5 mg (2 0.5 mg (0.736 mL) SUBCUT QWEEK #3 12/11/23 mg/3 mL) subcutaneous pen injector mL (Ozempic) levothyroxine 125 mcg tablet 125 mcg PO DAILY #90 tabs 01/07/24 nystatin 100,000 unit/gram topical 1 applic topical TID PRN Tinea 01/15/24 powder cruris #30 grams flash glucose sensor #1 ea 01/20/24 naproxen 500 mg tablet 500 mg PO BID PRN pain #40 tabs 01/26/24 terbinafine HCl 250 mg tablet 250 mg PO DAILY #14 tabs 01/26/24 gabapentin 300 mg capsule 600 mg (2 x 300 mg) PO BID #120 02/08/24 caps oxycodone 5 mg tablet 5 mg PO Q4-6H PRN Pain, Moderate 02/17/24 #60 tabs Allergies Allergy/AdvReac Type Severity Reaction Status Date / Time adhesive Allergy Mild REDNESS/ITC Verified 02/16/24 10:40 HINESS morphine Allergy Verified 02/16/24 10:40 Review of Systems <Abdiaziz Hua PA-C - Last Filed: 03/06/24 19:15> Review of Systems Narrative: GENERAL: Denies chills, fatigue, malaise, fever, sweats. HEENT: Denies sinus pain, ear pain, sore throat, difficulty swallowing, dizziness. RESPIRATORY: Reports mild shortness of breath dyspnea, denies cough, wheezing, hemoptysis, sputum. CARDIOVASCULAR: Reports chest pain, Denies palpitations, orthopnea, edema, GASTROINTESTINAL: Denies nausea, vomiting, abdominal pain, diarrhea, constipation, melena. : Denies dysuria, frequency, incontinence, hematuria, urinary retention. MUSCULOSKELETAL: denies weakness, joint pain, or bony pain SKIN: Denies rash, skin lesions, or other NEUROLOGIC: Denies weakness, headache, numbness, change in speech, confusion, seizures, incoordination. PSYCHIATRIC: No concerning psychosocial issues. 12 point review of systems is negative except for those stated above Patient History <Abdiaziz Hua PA-C - Last Filed: 03/06/24 19:15> Medical History (Updated 03/06/24 @ 22:21 by Neri Burt DO) Osteoarthritis of left hip Skin sore Stress incontinence Borderline hyperlipidemia Hip pain Cellulitis Mental health assessment declined Steatosis Bilateral otitis externa Sleep apnea Otitis externa Hearing reduced Screening for malignant neoplasm of colon Type 2 diabetes mellitus History of recurrent TIAs Well adult exam Strain of muscle of right groin region (03/30/18) Chicken pox (1956) Measles (1955) Mumps (1958) Status post myocardial infarction Neuropathy Eczema Chronic cough Depression (2008) Obstructive sleep apnea Gout Shoulder pain Foot pain Chickenpox (1956) Measles (1955) Mumps (1958) Kidney disease (2009) GERD (gastroesophageal reflux disease) (2012) Hypothyroidism Hypertension Hyperlipidemia Diabetes (1994) Coronary artery disease (2006) COPD (chronic obstructive pulmonary disease) Surgical History Anesthesia History of heart artery stent (2010) History of heart artery stent (2006) Hx of shoulder surgery (2005) Family History Brother Age: 69 Diabetes mellitus Hyperlipidemia Mother Heart disease Hypertension Hyperlipidemia Diabetes mellitus Grandmother Diabetes mellitus Brother No problems noted. Sister Breast cancer Social History marital status: details: 3 years ago household members: none lives independently: Yes housing: apartment Smoking Status: Current every day smoker Tobacco: How many years used: 45 alcohol intake: current Smoking Status: Current every day smoker tobacco type: cigarettes alcohol intake frequency: 0-2 drinks per day Substance Use Type: marijuana Exam <Abdiaziz Hua PA-C - Last Filed: 03/06/24 19:15> Narrative Exam Narrative: GENERAL: Well-developed patient, in mild distress. HEAD: Atraumatic. Normocephalic. EYES: Pupils equal round and reactive. Extraocular motions intact. No scleral icterus. No injection or drainage. ENT: Nose without bleeding, purulent drainage. Throat without erythema, tonsillar hypertrophy or exudate. Airway patent. NECK: Trachea midline. Non tender EXTREMITIES: No edema or joint tenderness. NEURO: AOx3. SKIN: No rash or erythema of visible areas CARDIOVASCULAR: Regular rate and rhythm without murmurs, gallops, or rubs. RESPIRATORY: Mild wheezing bilaterally GASTROINTESTINAL: Abdomen soft, non-tender, nondistended. BACK: Nontender without deformity or crepitance. No flank tenderness. Initial Vital Signs Initial Vital Signs: Vital Signs Temperature 98.9 F 03/06/24 17:13 Pulse Rate 93 H 03/06/24 17:13 Respiratory Rate 20 03/06/24 17:13 Blood Pressure 177/85 H 03/06/24 17:13 Pulse Oximetry 98 03/06/24 17:13 Oxygen Delivery Method Room Air 03/06/24 17:13 <Neri Burt DO - Last Filed: 03/07/24 00:58> Initial Vital Signs Initial Vital Signs: Vital Signs Temperature 98.9 F 03/06/24 17:13 Pulse Rate 93 H 03/06/24 17:13 Respiratory Rate 20 03/06/24 17:13 Blood Pressure 177/85 H 03/06/24 17:13 Pulse Oximetry 98 03/06/24 17:13 Oxygen Delivery Method Room Air 03/06/24 17:13 Course <Abdiaziz Hua PA-C - Last Filed: 03/06/24 19:15> Orders Ordered: ED Orders 03/06/24 17:13 XR chest 2V Stat EKG-12 Lead Stat 03/06/24 17:22 Complete Blood Count AUTO DIFF Stat Comprehensive Metabolic Panel Stat NT-proBNP (BNP-Adult 18+) Stat Troponin & CK Cardiac Panel Stat 03/06/24 17:25 RT Consult Eval and Treat NOW 03/06/24 19:20 Magnesium Stat PTT Partial Thromboplastin [place] Stat Prothrombin Time INR Stat Troponin I Stat EKG-12 Lead Stat 03/06/24 21:39 PTT Partial Thromboplastin [place] Q6H 03/06/24 21:56 EKG-12 Lead Stat 03/07/24 09:00 PTT Partial Thromboplastin [place] Q6H 03/07/24 15:00 PTT Partial Thromboplastin [place] Q6H Heparin Sodium/Dextrose (Heparin Drip) 25,000 unit in 500 mls @ 20 mls/hr IV CONT LUCIANO; Protocol Last Admin: 03/06/24 21:35 Dose: 1,000 unit/hr, 20 mls/hr Documented By: MALINI Co-signed By: ROSAS Discontinued Medications Hydrocodone Bitart/Acetaminophen (Hydrocodone/Acet 5/325 Tablet) 1 tab PO NOW ONE Stop: 03/06/24 21:57 Last Admin: 03/06/24 22:04 Dose: 1 tab Documented By: MALINI Albuterol/Ipratropium (Albuterol/Ipratropium 3 Ml Ampul) 3 ml INH NOW ONE Stop: 03/06/24 17:26 Last Admin: 03/06/24 17:37 Dose: 3 ml Documented By: VIVIEN Aspirin (Aspirin 81 Mg Chew Tab) 324 mg PO NOW ONE Stop: 03/06/24 17:59 Last Admin: 03/06/24 18:37 Dose: 324 mg Documented By: SUSAN Heparin Sodium (Porcine) (Heparin 5,000 Unit/Ml Vial) 5,000 unit 60 unit/kg (5000 unit) IV NOW ONE Stop: 03/06/24 20:55 Last Admin: 03/06/24 21:19 Dose: 5,000 unit Documented By: MALINI Hydromorphone HCl (Hydromorphone 0.5 Mg Inj) 0.5 mg IV NOW ONE Stop: 03/06/24 22:49 Last Admin: 03/06/24 23:17 Dose: 0.5 mg Documented By: MALINI Hydromorphone HCl (Hydromorphone 0.5 Mg Inj) 0.5 mg IV NOW ONE Stop: 03/07/24 00:51 Last Admin: 03/07/24 00:56 Dose: 0.5 mg Documented By: MALINI Heparin Sodium/Dextrose (Heparin Drip) 25,000 unit in 500 mls @ 20.357 mls/hr IV CONT LUCIANO; Protocol Nitroglycerin (Nitroglycerin 0.4 Mg Sl Tab) 0.4 mg SL [id number] PRN PRN Reason: Chest Pain Last Admin: 03/06/24 18:37 Dose: 0.4 mg Documented By: SUSAN Nitroglycerin (Nitroglycerin Oint 1 Inch/Gm Oint...G.) 0.5 inch TOP NOW ONE Stop: 03/06/24 20:28 Last Admin: 03/06/24 20:39 Dose: 0.5 inch Documented By: VALERIANO Ondansetron HCl (Ondansetron 4 Mg/2 Ml Inj) 4 mg IV NOW ONE Stop: 03/06/24 17:42 Last Admin: 03/06/24 17:54 Dose: 4 mg Documented By: SUSAN Vital Signs Vital signs: Vital Signs - 8 hr 03/06/24 17:13 03/06/24 19:30 03/06/24 20:39 Temperature 98.9 F Pulse Rate 93 H 96 H 90 Respiratory Rate 20 18 Blood Pressure 177/85 H 115/68 118/56 L Pulse Oximetry 98 98 Oxygen Delivery Method Room Air Room Air 03/06/24 22:05 03/07/24 00:30 Temperature Pulse Rate 90 91 H Respiratory Rate 18 18 Blood Pressure 128/66 129/67 Pulse Oximetry 98 94 Oxygen Delivery Method Room Air Room Air <Neri Burt DO - Last Filed: 03/07/24 00:58> Orders Ordered: ED Orders 03/06/24 17:13 XR chest 2V Stat EKG-12 Lead Stat 03/06/24 17:22 Complete Blood Count AUTO DIFF Stat Comprehensive Metabolic Panel Stat NT-proBNP (BNP-Adult 18+) Stat Troponin & CK Cardiac Panel Stat 03/06/24 17:25 RT Consult Eval and Treat NOW 03/06/24 19:20 Magnesium Stat PTT Partial Thromboplastin [place] Stat Prothrombin Time INR Stat Troponin I Stat EKG-12 Lead Stat 03/06/24 21:39 PTT Partial Thromboplastin [place] Q6H 03/06/24 21:56 EKG-12 Lead Stat 03/07/24 09:00 PTT Partial Thromboplastin [place] Q6H 03/07/24 15:00 PTT Partial Thromboplastin [place] Q6H Heparin Sodium/Dextrose (Heparin Drip) 25,000 unit in 500 mls @ 20 mls/hr IV CONT LUCIANO; Protocol Last Admin: 03/06/24 21:35 Dose: 1,000 unit/hr, 20 mls/hr Documented By: MALINI Co-signed By: ROSAS Discontinued Medications Hydrocodone Bitart/Acetaminophen (Hydrocodone/Acet 5/325 Tablet) 1 tab PO NOW ONE Stop: 03/06/24 21:57 Last Admin: 03/06/24 22:04 Dose: 1 tab Documented By: MALINI Albuterol/Ipratropium (Albuterol/Ipratropium 3 Ml Ampul) 3 ml INH NOW ONE Stop: 03/06/24 17:26 Last Admin: 03/06/24 17:37 Dose: 3 ml Documented By: VIVIEN Aspirin (Aspirin 81 Mg Chew Tab) 324 mg PO NOW ONE Stop: 03/06/24 17:59 Last Admin: 03/06/24 18:37 Dose: 324 mg Documented By: SUSAN Heparin Sodium (Porcine) (Heparin 5,000 Unit/Ml Vial) 5,000 unit 60 unit/kg (5000 unit) IV NOW ONE Stop: 03/06/24 20:55 Last Admin: 03/06/24 21:19 Dose: 5,000 unit Documented By: MALINI Hydromorphone HCl (Hydromorphone 0.5 Mg Inj) 0.5 mg IV NOW ONE Stop: 03/06/24 22:49 Last Admin: 03/06/24 23:17 Dose: 0.5 mg Documented By: MALINI Hydromorphone HCl (Hydromorphone 0.5 Mg Inj) 0.5 mg IV NOW ONE Stop: 03/07/24 00:51 Last Admin: 03/07/24 00:56 Dose: 0.5 mg Documented By: MALINI Heparin Sodium/Dextrose (Heparin Drip) 25,000 unit in 500 mls @ 20.357 mls/hr IV CONT LUCIANO; Protocol Nitroglycerin (Nitroglycerin 0.4 Mg Sl Tab) 0.4 mg SL [id number] PRN PRN Reason: Chest Pain Last Admin: 03/06/24 18:37 Dose: 0.4 mg Documented By: SUSAN Nitroglycerin (Nitroglycerin Oint 1 Inch/Gm Oint...G.) 0.5 inch TOP NOW ONE Stop: 03/06/24 20:28 Last Admin: 03/06/24 20:39 Dose: 0.5 inch Documented By: VALERIANO Ondansetron HCl (Ondansetron 4 Mg/2 Ml Inj) 4 mg IV NOW ONE Stop: 03/06/24 17:42 Last Admin: 03/06/24 17:54 Dose: 4 mg Documented By: SUSAN Vital Signs Vital signs: Vital Signs - 8 hr 03/06/24 17:13 03/06/24 19:30 03/06/24 20:39 Temperature 98.9 F Pulse Rate 93 H 96 H 90 Respiratory Rate 20 18 Blood Pressure 177/85 H 115/68 118/56 L Pulse Oximetry 98 98 Oxygen Delivery Method Room Air Room Air 03/06/24 22:05 03/07/24 00:30 Temperature Pulse Rate 90 91 H Respiratory Rate 18 18 Blood Pressure 128/66 129/67 Pulse Oximetry 98 94 Oxygen Delivery Method Room Air Room Air MDM - Chest Pain <Abdiaziz Hua PA-C - Last Filed: 03/06/24 19:15> Lab Data 03/06/24 17:22 03/06/24 17:22 Labs: Lab Results 03/06/24 03/06/24 03/06/24 Range/Units 17:22 19:20 21:39 WBC 12.3 H (4.5-11.0) X10^3/uL RBC 4.51 (4.5-5.9) X10^6/uL Hgb 13.8 (13.5-17.5) g/dL Hct 40.1 L (41-53) % MCV 89.0 (80-100) fL MCH 30.7 (26-34) PG MCHC 34.4 (30-36) % RDW 14.5 (11.6-14.8) % Plt Count 222 (150-400) X10^3/uL Neut % (Auto) 79.6 H (50-75) % Lymph % (Auto) 9.6 L (25-40) % [place] % (Auto) 10.2 (3-14) % Eos % (Auto) 0.2 L (2-4) % Baso % (Auto) 0.4 (0-2) % Neut # (Auto) 9800 H (1201-2240) /uL Lymph # (Auto) 1200 (5986-4945) /uL [place] # (Auto) 1300 H (0-900) /uL Eos # (Auto) 0 (0-450) /uL Baso # (Auto) 0 (0-100) /uL PT 14.4 H (9.4-12.5) SECONDS INR 1.3 (0.9-1.3) APTT 33 88 H* D (25.1-36.5) SECONDS Sodium 133 L (137-145) mmol/L Potassium 3.5 (3.4-5.1) mmol/L Chloride 101 (98-107) mmol/L Carbon Dioxide 26 (22-32) mmol/L BUN 14 (9-20) mg/dL Creatinine 0.81 (0.66-1.25) mg/dL Estimated GFR > 60 (>60) mL/min BUN/Creatinine Ratio 17.3 (6-22) Glucose 160 H (80-110) mg/dL Calcium 8.6 (8.4-10.2) mg/dL Magnesium 1.4 L (1.6-2.3) mg/dL Total Bilirubin 1.1 (0.2-1.3) mg/dL AST 32 (17-59) IU/L ALT 25 (<50) IU/L Alkaline Phosphatase 85 (38-126) U/L Total Creatine Kinase 287 H (55-170) U/L Troponin I 0.015 0.013 (0.01-0.034) ng/mL NT-Pro-B Natriuret Pep 527 H (<125) pg/mL Total Protein 7.2 (6.3-8.2) g/dL Albumin 4.1 (3.5-5.0) g/dL Globulin 3.1 (1.7-4.1) g/dL Albumin/Globulin Ratio 1.3 (1.0-2.8) Imaging Data Chest x-ray: Radiologist's Impression: [address] [address] XRay Report Signed Patient: Carlos Randall MR#: [id number] : 1955 Acct:[id number] Age/Sex: 68 / M Date of Service: 03/06/24 Loc: ED Accession Number: [id number] Procedure: XR chest 2V Ordering Provider: Abdiaziz Hua P.A-C PROCEDURE: XR CHEST 2V INDICATIONS: CP/SOB TECHNIQUE: 2 views of the chest were acquired. COMPARISON: [facility], , XR CHEST 1V, 05/15/2022, 3:07. FINDINGS: Surgical changes and devices: Postoperative change of the left humeral head can be seen. 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 Lungs and pleura: On this semiupright portable chest examination, no large pneumothorax or large pleural effusions are seen. No focal infiltrates are seen. Low lung volumes are noted. This causes a crowded appearance to the lung markings and limits evaluation. Mediastinum: Mediastinal contours are normal. Heart size is normal. Bones and chest wall: No suspicious bony abnormalities. Age-appropriate bony degenerative changes are seen. Soft tissues appear unremarkable. IMPRESSION: Low lung volumes, without an acute abnormality seen by plain film. Postoperative and degenerative changes are seen. Dictated by: Nathan Doyle M.D. on 03/06/2024 at 16:42 Approved by: Nathan Doyle M.D. on 03/06/2024 at 16:43 ECG Data Interpretation: 1716: EKG is normal sinus rhythm rate 97 and free of any signs of ischemia or ectopy. No ST segmental elevation or depression. No T wave inversions. Occasional PVCs. MDM Narrative Medical decision making narrative: ED course: This is a 68-year-old male presents to the emergency department due to an episode of chest pain onset yesterday. Initially EKG reassuring, troponin within normal limits. Chest x-ray showed low lung volumes but otherwise unremarkable. Patient took 1 tablet of nitro about 4 hours ago and was given another 0.4 mg tablet of nitro as well as aspirin 324 mg. Patient was given breathing treatment for mild bilateral wheezing. He was also given Zofran 4 mg to help with the nausea. Patient's care will be transferred to my attending physician Dr. Burt at end of shift. Discussed with the patient the possibility of being admitted to the hospital for observation which patient was agreeable to. CC: Chest pain Complicating co-morbidities: History of Lewy body dementia, COPD, diabetes, depression, hypothyroidism, history of heart stents Data collected from: Previous notes Medical records reviewed: Patient was last seen here about a month ago due to left hip pain. History of Lewy body dementia, COPD, diabetes. History of depression, obstructive sleep apnea, hypothyroidism. History of heart stent in 2006 as well as 2010. X-ray unremarkable and patient was discharged. Echo was done in 2019 which showed an ejection fraction of 60-65%. History of atherosclerotic heart disease. Smoker. Differential considered, but not limited to: STEMI, NSTEMI, atypical chest pain, pneumothorax Exam documented above, pertinent findings include: No significant abnormalities noted on exam, mild bilateral wheezing Lab Test results independently reviewed as above. Pertinent findings: Initial troponin within normal limits Imaging studies independently reviewed: Chest x-ray showed low lung volumes but otherwise unremarkable Scores Used: None MIPS Elements: None Consultations: None Treatments: 0.4 mg nitroglycerin, aspirin 324 Re-evaluations: Patient was just given 0.4 mg nitroglycerin just prior prior to my sign out Discussion: Discussed plan with the patient was comfortable with the plan Diagnosis: Chest pain Disposition: see below, along with detailed discharge instructions that have been reviewed with patient as well as indications for ED re-evaluation and additional outpatient follow up <Neri Burt, DO - Last Filed: 03/07/24 00:58> Lab Data Attestation: I reviewed the patient's lab results. Labs: Lab Results 03/06/24 03/06/24 03/06/24 Range/Units 17:22 19:20 21:39 WBC 12.3 H (4.5-11.0) X10^3/uL RBC 4.51 (4.5-5.9) X10^6/uL Hgb 13.8 (13.5-17.5) g/dL Hct 40.1 L (41-53) % MCV 89.0 (80-100) fL MCH 30.7 (26-34) PG MCHC 34.4 (30-36) % RDW 14.5 (11.6-14.8) % Plt Count 222 (150-400) X10^3/uL Neut % (Auto) 79.6 H (50-75) % Lymph % (Auto) 9.6 L (25-40) % [place] % (Auto) 10.2 (3-14) % Eos % (Auto) 0.2 L (2-4) % Baso % (Auto) 0.4 (0-2) % Neut # (Auto) 9800 H (2944-3201) /uL Lymph # (Auto) 1200 (2851-5872) /uL [place] # (Auto) 1300 H (0-900) /uL Eos # (Auto) 0 (0-450) /uL Baso # (Auto) 0 (0-100) /uL PT 14.4 H (9.4-12.5) SECONDS INR 1.3 (0.9-1.3) APTT 33 88 H* D (25.1-36.5) SECONDS Sodium 133 L (137-145) mmol/L Potassium 3.5 (3.4-5.1) mmol/L Chloride 101 (98-107) mmol/L Carbon Dioxide 26 (22-32) mmol/L BUN 14 (9-20) mg/dL Creatinine 0.81 (0.66-1.25) mg/dL Estimated GFR > 60 (>60) mL/min BUN/Creatinine Ratio 17.3 (6-22) Glucose 160 H (80-110) mg/dL Calcium 8.6 (8.4-10.2) mg/dL Magnesium 1.4 L (1.6-2.3) mg/dL Total Bilirubin 1.1 (0.2-1.3) mg/dL AST 32 (17-59) IU/L ALT 25 (<50) IU/L Alkaline Phosphatase 85 (38-126) U/L Total Creatine Kinase 287 H (55-170) U/L Troponin I 0.015 0.013 (0.01-0.034) ng/mL NT-Pro-B Natriuret Pep 527 H (<125) pg/mL Total Protein 7.2 (6.3-8.2) g/dL Albumin 4.1 (3.5-5.0) g/dL Globulin 3.1 (1.7-4.1) g/dL Albumin/Globulin Ratio 1.3 (1.0-2.8) ECG Data Interpretation: 1716: EKG is normal sinus rhythm rate 97 and free of any signs of ischemia or ectopy. No ST segmental elevation or depression. No T wave inversions. Occasional PVCs. Repeat EKG Sinus rhythm Ventricular rate of 88 Normal axis Normal QRS Normal QTC No ST T wave changes MDM Narrative Medical decision making narrative: ED course: This is a 68-year-old male presents to the emergency department due to an episode of chest pain onset yesterday. Initially EKG reassuring, troponin within normal limits. Chest x-ray showed low lung volumes but otherwise unremarkable. Patient took 1 tablet of nitro about 4 hours ago and was given another 0.4 mg tablet of nitro as well as aspirin 324 mg. Patient was given breathing treatment for mild bilateral wheezing. He was also given Zofran 4 mg to help with the nausea. Patient's care will be transferred to my attending physician Dr. Burt at end of shift. Discussed with the patient the possibility of being admitted to the hospital for observation which patient was agreeable to. CC: Chest pain Complicating co-morbidities: History of Lewy body dementia, COPD, diabetes, depression, hypothyroidism, history of heart stents Data collected from: Previous notes Medical records reviewed: Patient was last seen here about a month ago due to left hip pain. History of Lewy body dementia, COPD, diabetes. History of depression, obstructive sleep apnea, hypothyroidism. History of heart stent in 2006 as well as 2010. X-ray unremarkable and patient was discharged. Echo was done in 2019 which showed an ejection fraction of 60-65%. History of atherosclerotic heart disease. Smoker. Differential considered, but not limited to: STEMI, NSTEMI, atypical chest pain, pneumothorax Exam documented above, pertinent findings include: No significant abnormalities noted on exam, mild bilateral wheezing Lab Test results independently reviewed as above. Pertinent findings: Initial troponin within normal limits Imaging studies independently reviewed: Chest x-ray showed low lung volumes but otherwise unremarkable Scores Used: None MIPS Elements: None Consultations: None Treatments: 0.4 mg nitroglycerin, aspirin 324 Re-evaluations: Patient was just given 0.4 mg nitroglycerin just prior prior to my sign out Discussion: Discussed plan with the patient was comfortable with the plan Diagnosis: Chest pain Disposition: see below, along with detailed discharge instructions that have been reviewed with patient as well as indications for ED re-evaluation and additional outpatient follow up Dr burt: Received turned over. Review patient's history and physical exam. Has had 2- troponins. Nonischemic EKG but continues to have chest discomfort. Was given nitro paste. Discussed the case with Dr. Vuong cardiology [facility]. Patient apparently had a nuclear stress test in November of 2022 that was unremarkable however had a subsequent cardiac catheterization which revealed a 80% RCA stenosis. Apparently this was not intervened upon at that time because of the normal stress test. Unsure whether not the patient has had any follow-up since then. Given his continued discomfort here cardiology recommended transfer to a facility that has catheterization capability. Patient was started on heparin. Repeat EKG again shows no ischemic changes. Discussed the case with Dr. Germain hospitalist at [facility] who accepts the patient in transfer. Patient is stable for transport. Discharge Plan Departure Patient Disposition: [facility] Clinical Impression: Unstable angina Prescriptions: No Action (DME) blood-glucose meter Kit See Rx Instructions .ROUTE .MEDSUPPLY Qty: 1 0RF Rx Instructions: Use to test blood glucose BID (DME) Disabled Parking Permit See Rx Instructions .ROUTE .MEDSUPPLY Qty: 1 0RF Rx Instructions: Valid for 5 years tamsulosin 0.4 mg capsule 0.4 mg PO BEDTIME Qty: 90 3RF (DME) pen needle, diabetic [Comfort EZ Pen [place]] 31 gauge x 5/16 needle See Dose Instructions .ROUTE .MEDSUPPLY Qty: 100 5RF Dose Instruction: As directed Rx Instructions: Use to inject insulin 5 times per day (DME) lancets [BD Ultra Fine Lancets] 33 gauge misc See Rx Instructions .ROUTE .MEDSUPPLY Qty: 100 6RF Rx Instructions: Use to test blood glucose twice daily (DME) Blood Glucose Test Strip See Rx Instructions .ROUTE .MEDSUPPLY Qty: 100 6RF Rx Instructions: Use to test blood glucose twice daily. (DME) FreeStyle Tim[place] 2 [place] Misc See Rx Instructions .ROUTE .MEDSUPPLY Qty: 1 12RF Rx Instructions: As directed albuterol sulfate [Proventil HFA] 90 mcg/actuation HFA aerosol inhaler 2 puff INHALATION QID PRN (Reason: shortness of breath) Qty: 18 5RF ipratropium-albuterol 0.5 mg-3 mg(2.5 mg base)/3 mL solution for nebulization See Rx Instructions .ROUTE .COMPLEX Qty: 90 1RF Dose Instruction: USE 3 ML VIA NEBULIZER EVERY 4 TO 6 HOURS NEEDED FOR SHORTNESS OF BREATH OR WHEEZING Rx Instructions: USE 3 ML VIA NEBULIZER EVERY 4 TO 6 HOURS NEEDED FOR SHORTNESS OF BREATH OR WHEEZING lorazepam 1 mg tablet 1 mg PO 2XD Qty: 60 0RF bupropion HCl 300 mg tablet extended release 24 hr 300 mg PO DAILY Qty: 90 3RF Novolog FlexPen U-100 Insulin 100 unit/mL (3 mL) insulin pen See Rx Instructions SUBCUT .COMPLEX Qty: 15 11RF Rx Instructions: 10 units a.c. t.i.d. depending on carbohydrate content of meal quetiapine 25 mg tablet 25 mg PO BEDTIME Qty: 90 3RF atorvastatin 80 mg tablet 80 mg PO DAILY Qty: 90 3RF omeprazole 20 mg capsule,delayed release(DR/EC) 20 mg PO DAILY Qty: 30 3RF insulin glargine U-300 conc 300 unit/mL (3 mL) insulin pen 90 unit SUBCUT BID Qty: 15 11RF levothyroxine 125 mcg tablet 125 mcg PO DAILY Qty: 90 0RF nystatin 100,000 unit/gram powder 1 applic topical TID PRN (Reason: Tinea cruris) Qty: 30 1RF (DME) flash glucose sensor Kit See Rx Instructions .Route Qty: 1 3RF Rx Instructions: Use to check blood sugars twice daily. gabapentin 300 mg capsule 600 mg PO BID Qty: 120 1RF oxycodone 5 mg tablet 5 mg PO Q4-6H PRN (Reason: Pain, Moderate) Qty: 60 0RF beclomethasone dipropionate 40 mcg/actuation HFA aerosol breath activated 1 inh Inhalation BID Qty: 10.6 5RF Ozempic 0.25 mg or 0.5 mg (2 mg/3 mL) pen injector 0.5 mg SUBCUT QWEEK Qty: 3 1RF Rx Instructions: start injecting 0.5 mg every week naproxen 500 mg tablet 500 mg PO BID PRN (Reason: pain) Qty: 40 0RF terbinafine HCl 250 mg tablet 250 mg PO DAILY Qty: 14 0RF Referrals: Gasper Rutherford DO [Primary Care Provider] -
[2024-03-06 17:13] VITALS: BP 177/85; PULSE 93; RESP 20; TEMP 37.2; O2SAT 98; BMI 30.2
--- NOTE | 2024-03-06 17:13 | DI.RAD.S_ITS ---
PROCEDURE: XR CHEST 2V INDICATIONS: CP/SOB TECHNIQUE: 2 views of the chest were acquired. COMPARISON: [facility], CR, XR CHEST 1V, 05/15/2022, 3:07. FINDINGS: Surgical changes and devices: Postoperative change of the left humeral head can be seen. 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 Lungs and pleura: On this semiupright portable chest examination, no large pneumothorax or large pleural effusions are seen. No focal infiltrates are seen. Low lung volumes are noted. This causes a crowded appearance to the lung markings and limits evaluation. Mediastinum: Mediastinal contours are normal. Heart size is normal. Bones and chest wall: No suspicious bony abnormalities. Age-appropriate bony degenerative changes are seen. Soft tissues appear unremarkable. IMPRESSION: Low lung volumes, without an acute abnormality seen by plain film. Postoperative and degenerative changes are seen. Dictated by: Nathan Doyle M.D. on 03/06/2024 at 16:42 Approved by: Nathan Doyle M.D. on 03/06/2024 at 16:43
[2024-03-06 17:36] LABS: Add Manual Diff / Slide Review NO; Basophils Absolute Auto 0 /uL (0-100); Basophils Percent Auto 0.4 % (0-2); Eosinophils Absolute Auto 0 /uL (0-450); Eosinophils Percent Auto 0.2 % (2-4); Hematocrit 40.1 % (41-53); Hemoglobin 13.8 g/dL (13.5-17.5); Lymphocytes Absolute Auto 1200 /uL (1100-4500); Lymphocytes Percent Auto 9.6 % (25-40); Mean Corpuscular HGB Conc 34.4 % (30-36); Mean Corpuscular Hemoglobin 30.7 PG (26-34); Monocytes Absolute Auto 1300 /uL (0-900); Monocytes Percent Auto 10.2 % (3-14); Neutrophils Absolute Auto 9800 /uL (1500-7000); Neutrophils Percent Auto 79.6 % (50-75); Platelet Count 222 X10^3/uL (150-400); Red Blood Cell Count 4.51 X10^6/uL (4.5-5.9); Red Cell Distribution Width 14.5 % (11.6-14.8); White Blood Cell Count 12.3 X10^3/uL (4.5-11.0)
[2024-03-06] MEDS: ALBUTEROL/IPRATROPIUM 3 ML AMPUL INH (17:37)
[2024-03-06 17:45] LABS: Alanine Aminotransferase 25 IU/L (<50); Albumin 4.1 g/dL (3.5-5.0); Albumin Globulin Ratio 1.3 (1.0-2.8); Alkaline Phosphatase 85 U/L (38-126); Aspartate Aminotransferase 32 IU/L (17-59); BUN Creatinine Ratio 17.3 (6-22); Bilirubin Total 1.1 mg/dL (0.2-1.3); Blood Urea Nitrogen 14 mg/dL (9-20); Calcium 8.6 mg/dL (8.4-10.2); Carbon Dioxide 26 mmol/L (22-32); Chloride 101 mmol/L (98-107); Creatine Kinase 287 U/L (55-170); Estimated Glomerular Filt Rate > 60 mL/min (>60); Globulin 3.1 g/dL (1.7-4.1); Glucose 160 mg/dL (80-110); HEMOLYSIS < 15 (0-50); Potassium 3.5 mmol/L (3.4-5.1); Sodium 133 mmol/L (137-145); Total Protein 7.2 g/dL (6.3-8.2)
[2024-03-06] MEDS: ONDANSETRON 4 MG/2 ML INJ IV (17:54)
[2024-03-06 17:57] LABS: NT-proBNP (BNP-Adult 18+) 527 pg/mL (<125); Troponin I 0.015 ng/mL (0.01-0.034)
[2024-03-06] MEDS: ASPIRIN 81 MG CHEW TAB 324 MG PO (18:37)
[2024-03-06] MEDS: NITROGLYCERIN 0.4 MG SL TAB SL (18:37)
--- NOTE | 2024-03-06 19:10 | PC.NURSE ---
See triage note. Pt reports no improvment with nitro.
[2024-03-06 19:30] VITALS: BP 115/68; PULSE 96; RESP 18; O2SAT 98
[2024-03-06 19:49] LABS: Troponin I 0.013 ng/mL (0.01-0.034)
[2024-03-06 20:39] VITALS: BP 118/56; PULSE 90
[2024-03-06] MEDS: NITROGLYCERIN OINT 1 INCH/GM OINT...G. 0.5 INCH TOP (20:39)
[2024-03-06 21:11] LABS: INR 1.3 (0.9-1.3); Prothrombin Time 14.4 SECONDS (9.4-12.5)
[2024-03-06 21:13] LABS: PTT Partial Thromboplastin Tim 33 SECONDS (25.1-36.5)
[2024-03-06 21:17] LABS: Magnesium 1.4 mg/dL (1.6-2.3)
[2024-03-06] MEDS: HEPARIN 5,000 UNIT/ML VIAL 5000 UNIT IV (21:19)
[2024-03-06] MEDS: HEPARIN DRIP 25,000 UNIT/500 ML IV.SOLN 20 UNIT IV (21:35)
--- NOTE | 2024-03-06 21:35 | PC.NURSE ---
Heparin drip started at 2134, PTT drawn by unknown lab personal at 2138, this RN will follow protocol to check q6hr PTT, heparin drip remains at initial rate per protocol - see MAR. Jose Carlos ROONEY verified with this RN at bedside.
[2024-03-06] MEDS: HYDROCODONE/ACET 5/325 TABLET 1 TAB PO (22:04)
[2024-03-06 22:05] VITALS: BP 128/66; PULSE 90; RESP 18; O2SAT 98
[2024-03-06 22:28] LABS: PTT Partial Thromboplastin Tim 88 SECONDS (25.1-36.5)
[2024-03-06] MEDS: HYDROMORPHONE 0.5 MG INJ IV (23:17)
[2024-03-07 00:30] VITALS: BP 129/67; PULSE 91; RESP 18; O2SAT 94
--- NOTE | 2024-03-07 00:37 | PC.NURSE ---
Updated pt's son.
[2024-03-07] MEDS: HYDROMORPHONE 0.5 MG INJ IV (00:56)
[2024-03-07] MEDS: ONDANSETRON 4 MG/2 ML INJ IV (01:17)
== END 2024-03-07 01:44 | disposition short-term general hospital (02) ==
PROVIDERS: Physician Assistant Medical; Emergency Provider Emergency Medicine; PCP Family Medicine
DX: I20.0 Unstable angina (principal); R11.2 Nausea with vomiting, unspecified; Z95.5 Presence of coronary angioplasty implant and graft
CPT/HCPCS: 36415; 71046; 80053; 82550; 83735; 83880; 84484; 85025; 85610; 85730; 93005; 96365; 96366; 96375; 96376; 99284; 99285; J1170; J1644; J2405

== ENCOUNTER 2024-03-12 17:51 | Emergency (ER) | payer MEDICARE, MEDICAID, SELFPAY ==
[2022-12-12 10:26] VITALS: BMI 33.9
[2024-03-12] VITALS (15 sets, daily range): BP systolic 144–193; BP diastolic 78–95; PULSE 71–83; RESP 18–22; TEMP 36.4; O2SAT 94–99; BMI 29.8
--- NOTE | 2024-03-12 | DI.CT.S_ITS ---
PROCEDURE: CT CERVICAL SPINE WO CON INDICATIONS: BACK PAIN TECHNIQUE: Noncontrast 3 mm thick sections acquired from the skull base to the T4 level. Sagittal and coronal reformats were then constructed. For radiation dose reduction, the following was used: automated exposure control, adjustment of mA and/or kV according to patient size. COMPARISON: [facility], CT, CT THORACIC SPINE WO CON, 03/12/2024, 21:36. [facility], CT, CT LUMBAR SPINE WO CON, 03/12/2024, 21:36. [facility], CT, CT HEAD/BRAIN WO CON, 03/12/2024, 21:36. [facility], CT, CT CERVICAL SPINE WO CON, 04/07/2023, 4:01. FINDINGS: Image quality: This examination is somewhat limited by quantum mottle artifact. Bones: No fractures or dislocations. Visualized superior ribs are intact. Focal degenerative change is seen involving the C1-C2 interface anteriorly. There is at least moderate disc space narrowing is seen at each cervical level. Multiple levels of prominent facet hypertrophy can be seen. Soft tissues: Prevertebral soft tissues are normal in thickness. No paravertebral hematomas. No apical pneumothoraces. IMPRESSION: No displaced fracture or traumatic subluxation. Multiple levels of prominent underlying cervical spine degenerative change can be seen. Dictated by: Nathan Doyle M.D. on 03/12/2024 at 21:08 Approved by: Nathan Doyle M.D. on 03/12/2024 at 21:09
--- NOTE | 2024-03-12 | DI.CT.S_ITS ---
PROCEDURE: CT LUMBAR SPINE WO CON INDICATIONS: BACK PAIN TECHNIQUE: Noncontrast 3 mm thick sections acquired from the T12 level to the sacrum. Sagittal and coronal reformats were constructed. For radiation dose reduction, the following was used: automated exposure control. COMPARISON: [facility], CT, CT CHEST ABD PEL W CON, 03/22/2021, 23:35. [facility], CT, CT HEAD/BRAIN WO CON, 03/12/2024, 21:36. [facility], CT, CT THORACIC SPINE WO CON, 03/12/2024, 21:36. [facility], CT, CT CERVICAL SPINE WO CON, 03/12/2024, 21:36. [facility], CT, CT LUMBAR SPINE WO CON, 12/22/2018, 3:37. FINDINGS: Image quality: Excellent. Bones: There is normal bony alignment. No acute vertebral body compression fractures. No suspicious lytic or blastic bony lesions. No pars defects. Multiple levels of lumbar spine degenerative change can be seen, which are worst inferiorly. At L4-L5, there is at least moderate bilateral neural foraminal narrowing. At least moderate facet hypertrophy can be seen at L4-L5. At the L5-S1 level, there is at least moderate bilateral neural foraminal narrowing seen. Soft tissues: No retroperitoneal masses or hematomas. Visualized aorta is normal in caliber. Extensive sigmoid diverticulosis is seen, with mild surrounding inflammatory change. IMPRESSION: Negative for acute fracture. Multiple levels of degenerative change are seen, which are regarded to be age-appropriate. Sigmoid diverticulosis is seen, with mild surrounding inflammatory change. Please correlate for potential active diverticulitis. Dictated by: Nathan Doyle M.D. on 03/12/2024 at 21:28 Approved by: Nathan Doyle M.D. on 03/12/2024 at 21:31
[2024-03-12] MEDS: HYDROMORPHONE 0.5 MG INJ IV (20:57)
--- NOTE | 2024-03-12 21:01 | DI.CT.S_ITS ---
PROCEDURE: CT HEAD/BRAIN WO CON INDICATIONS: trauma TECHNIQUE: Noncontrast 4.5 mm thick angled axial sections acquired from the foramen magnum to the vertex, with coronal and sagittal reformats. For radiation dose reduction, the following was used: automated exposure control, adjustment of mA and/or kV according to patient size. COMPARISON: [facility], CT, CT HEAD/BRAIN WO CON, 05/12/2022, 21:36. [facility], CT, CT THORACIC SPINE WO CON, 03/12/2024, 21:36. [facility], CT, CT LUMBAR SPINE WO CON, 03/12/2024, 21:36. [facility], CT, CT CERVICAL SPINE WO CON, 03/12/2024, 21:36. [facility], CT, CT HEAD/BRAIN WO CON, 04/07/2023, 4:01. FINDINGS: Image quality: This examination is limited by involuntary motion artifact. CSF spaces: Basal cisterns are patent. No extra-axial fluid collections. The ventricles are symmetric in size and shape. Brain: No intracranial bleeds or masses. There is cerebral volume loss for age, with resultant ventricular and sulcal prominence. There are periventricular and deep white matter chronic small vessel ischemic changes. There is intracranial internal carotid artery atherosclerosis. Skull and face: Calvarium and visualized facial bones appear intact, without suspicious lesions. Sinuses: Visualized sinuses and mastoids are clear. IMPRESSION: Motion limited study, without carla acute intracranial hemorrhage. No acute intracranial process is seen. Dictated by: Nathan Doyle M.D. on 03/12/2024 at 21:06 Approved by: Nathan Doyle M.D. on 03/12/2024 at 21:07
--- NOTE | 2024-03-12 21:02 | DI.CT.S_ITS ---
PROCEDURE: CT THORACIC SPINE WO CON INDICATIONS: trauma TECHNIQUE: Noncontrast 3 mm thick sections acquired through the region of interest in the thoracic spine. Sagittal and coronal reformats were then constructed. For radiation dose reduction, the following was used: automated exposure control. COMPARISON: [facility], CT, CT ANGIO CHEST ABDOMEN PELVIS, 04/24/2020, 14:29. [facility], CT, CT CHEST ABD PEL W CON, 03/22/2021, 23:35. [facility], CT, CT LUMBAR SPINE WO CON, 03/12/2024, 21:36. [facility], CT, CT CERVICAL SPINE WO CON, 03/12/2024, 21:36. [facility], CT, CT HEAD/BRAIN WO CON, 03/12/2024, 21:36. FINDINGS: Image quality: This examination is limited by involuntary motion artifact. Bones: There is normal overall bony alignment. No acute vertebral body compression fractures. Presumed remote trauma can be seen involving the right T10-T11 level, with bony overgrowth, as on series 13, image 22. There is thickening of the right 10th rib medially, as on series 11, image 100. No suspicious sclerotic or lytic bony lesions. Central spinal canal is of normal overall caliber. Soft tissues: No paravertebral masses or hematomas. Mild dependent atelectasis can be seen. At least moderate coronary artery calcification is seen. IMPRESSION: Negative for acute fracture. Presumed remote trauma involving the right aspect of the T10-T11 level, with chronic bony overgrowth. There is chronic appearing thickening of the right posterior medial 10th rib, which is also likely related to prior trauma. Dictated by: Nathan Doyle M.D. on 03/12/2024 at 21:22 Approved by: Nathan Doyle M.D. on 03/12/2024 at 21:28
--- NOTE | 2024-03-12 21:06 | PC.NURSE ---
pt c/o feeling like bs was low fsg 64 pt given juice, pt also medicated for c/o pain
--- NOTE | 2024-03-12 21:49 | ED.BACK ---
HPI - Back Pain/Injury General Chief Complaint: Trauma Stated Complaint: GLF on thinner, hit head Time Seen by Provider: 03/12/24 21:49 Source: patient and EMS History of Present Illness HPI Narrative: 68-year-old male fell while trying to get out as wheelchair at home in [place] this evening, takes chronic blood thinner medications, believes he might have hit his head, no loss of consciousness, but complains of neck upper and lower back pain. No weakness to arms or legs. No tingling or numbness to arms or legs. No chest pain or shortness of breath. No incontinence of urine or stool. No priapism. No nausea or vomiting. No visual disturbances. He did not seen any laceration injuries to his head or other portions of his body. He denies pain to upper extremities and lower extremities Related Data Previous Rx's Medication Instructions Recorded blood-glucose meter #1 ea 01/11/21 Disabled Parking Permit #1 ea 02/15/21 tamsulosin 0.4 mg capsule 0.4 mg PO BEDTIME #90 caps 06/17/22 blood sugar diagnostic (Blood #100 ea 09/24/22 Glucose Test strips) lancets 33 gauge (BD Ultra Fine #100 ea 09/24/22 Lancets) pen needle, diabetic 31 gauge x #100 ea 09/24/2203/17 (Comfort EZ Pen [place]) flash glucose scanning reader #1 ea 10/09/22 (FreeStyle Tim[place] 2 [place]) albuterol sulfate 90 mcg/actuation 2 puff inhalation QID PRN 03/24/23 aerosol inhaler (Proventil HFA) shortness of breath #18 grams ipratropium 0.5 mg-albuterol 3 mg See Rx Instructions .Route 04/24/23 (2.5 mg base)/3 mL nebulization .COMPLEX #90 mL soln lorazepam 1 mg tablet 1 mg PO 2XD #60 tabs 08/03/23 bupropion HCl 300 mg 24 hr tablet, 300 mg PO DAILY #90 tabs 09/07/23 extended release Novolog FlexPen U-100 Insulin 100 See Rx Instructions SUBCUT 10/01/23 unit/mL (3 mL) subcutaneous .COMPLEX #15 mL (insulin aspart U-100) quetiapine 25 mg tablet 25 mg PO BEDTIME #90 tabs 10/02/23 atorvastatin 80 mg tablet 80 mg PO DAILY #90 tabs 10/22/23 omeprazole 20 mg capsule,delayed 20 mg PO DAILY #30 caps 11/09/23 release insulin glargine U-300 conc 300 90 unit (0.3 mL) SUBCUT BID #15 mL 11/30/23 unit/mL (3 mL) subcutaneous pen beclomethasone dipropionate 40 1 inh inhalation BID Shortness Of 12/11/23 mcg/actuation HFA breath activated Breath #10.6 grams aerosol semaglutide 0.25 mg or 0.5 mg (2 0.5 mg (0.736 mL) SUBCUT QWEEK #3 12/11/23 mg/3 mL) subcutaneous pen injector mL (Ozempic) levothyroxine 125 mcg tablet 125 mcg PO DAILY #90 tabs 01/07/24 nystatin 100,000 unit/gram topical 1 applic topical TID PRN Tinea 01/15/24 powder cruris #30 grams naproxen 500 mg tablet 500 mg PO BID PRN pain #40 tabs 01/26/24 terbinafine HCl 250 mg tablet 250 mg PO DAILY #14 tabs 01/26/24 gabapentin 300 mg capsule 600 mg (2 x 300 mg) PO BID #120 02/08/24 caps oxycodone 5 mg tablet 5 mg PO Q4-6H PRN Pain, Moderate 02/17/24 #60 tabs flash glucose sensor #1 ea 03/10/24 Allergies Allergy/AdvReac Type Severity Reaction Status Date / Time adhesive Allergy Mild REDNESS/ITC Verified 02/16/24 10:40 HINESS morphine AdvReac ITCHING Verified 03/12/24 21:08 Patient History Medical History (Updated 03/13/24 @ 07:34 by Meir Escobar MD) Osteoarthritis of left hip Skin sore Stress incontinence Borderline hyperlipidemia Hip pain Cellulitis Mental health assessment declined Steatosis Bilateral otitis externa Sleep apnea Otitis externa Hearing reduced Screening for malignant neoplasm of colon Type 2 diabetes mellitus History of recurrent TIAs Well adult exam Strain of muscle of right groin region (03/30/18) Chicken pox (7) Measles (6) Mumps (1958) Status post myocardial infarction Neuropathy Eczema Chronic cough Depression (2009) Obstructive sleep apnea Gout Shoulder pain Foot pain Chickenpox (1956) Measles (6) Mumps (1959) Kidney disease (2009) GERD (gastroesophageal reflux disease) (2012) Hypothyroidism Hypertension Hyperlipidemia Diabetes (1994) Coronary artery disease (2006) COPD (chronic obstructive pulmonary disease) Surgical History Anesthesia History of heart artery stent (2010) History of heart artery stent (2006) Hx of shoulder surgery (2005) Family History Brother Age: 69 Diabetes mellitus Hyperlipidemia Mother Heart disease Hypertension Hyperlipidemia Diabetes mellitus Grandmother Diabetes mellitus Brother No problems noted. Sister Breast cancer Social History marital status: details: 3 years ago household members: none lives independently: Yes housing: apartment Smoking Status: Current every day smoker Tobacco: How many years used: 45 alcohol intake: current Smoking Status: Current every day smoker tobacco type: cigarettes alcohol intake frequency: 0-2 drinks per day Substance Use Type: marijuana Exam Initial Vital Signs Initial Vital Signs: Vital Signs Temperature 97.6 F 03/12/24 18:00 Pulse Rate 71 03/12/24 18:00 Respiratory Rate 22 03/12/24 18:00 Blood Pressure 144/95 H 03/12/24 18:00 Pulse Oximetry 99 03/12/24 18:00 Oxygen Delivery Method Room Air 03/12/24 18:00 Const General: cooperative HENMT Head: atraumatic Ears: TM's normal bilaterally Face and sinus: face symmetric Throat: tonsils normal Eyes Eyelids: eyelids normal Conjunctivae: conjunctivae normal Sclera: sclerae normal Pupils: PERRL EOM: EOM intact bilaterally Neck Neck: normal visual inspection, trachea midline and No lymphadenopathy Resp Effort & Inspection: normal respiratory effort, able to speak in complete sentences, no respiratory distress and no use of accessory muscles Auscultation: clear to auscultation bilaterally, no rales, no rhonchi and no wheezes Cardio Rate: regular rate Rhythm: regular rhythm Heart Sounds: no click, no gallops, no murmurs and no rubs Pulses: normal peripheral pulses GI Inspection: non-distended Palpation: No guarding and No tender Back/Spine/Pelvis Other: Some tenderness to paraspinal lower cervical upper thoracic, no midline sapinal tenderness Skin General: no rashes or lesions noted Neuro General: patient alert and patient oriented x3 Extrem General: full ROM, no pedal edema and no calf tenderness Psych Attitude: cooperative Thought Content: normal Course Course Course Narrative: Fall from wheelchair with elderly male on chronic anticoagulation, increased risk for intracerebral bleed, also has neck and back pain. CT head shows no intracranial hemorrhage or acute process, see radiology report. CT cervical thoracic lumbar spine studies report still pending Orders Ordered: Discontinued Medications Hydromorphone HCl (Hydromorphone 0.5 Mg Inj) 0.5 mg IV NOW ONE Stop: 03/12/24 20:55 Last Admin: 03/12/24 20:57 Dose: 0.5 mg Documented By: NHUNG Hydromorphone HCl (Hydromorphone 0.5 Mg Inj) 0.5 mg IV NOW ONE Stop: 03/13/24 00:29 Last Admin: 03/13/24 00:54 Dose: 0.5 mg Documented By: NHUNG Sodium Chloride (Normal Saline 0.9%) 1,000 mls @ 1,000 mls/hr IV BOLUS ONE Stop: 03/13/24 02:57 Last Admin: 03/13/24 02:43 Dose: 1,000 mls/hr Documented By: NHUNG Midazolam HCl (Midazolam 5 Mg/Ml Vial) 5 mg IV NOW ONE Stop: 03/12/24 22:04 Last Admin: 03/12/24 22:08 Dose: 5 mg Documented By: TASHA Midazolam HCl (Midazolam 2 Mg/2 Ml Vial) 4 mg IV NOW ONE Stop: 03/13/24 02:26 Last Admin: 03/13/24 02:42 Dose: 4 mg Documented By: NHUNG Vital Signs Vital signs: Vital Signs - 8 hr 03/12/24 23:30 03/12/24 23:30 03/13/24 00:00 Pulse Rate 74 75 Respiratory Rate Blood Pressure 169/87 H Pulse Oximetry 94 94 03/13/24 00:00 03/13/24 00:30 03/13/24 00:30 Pulse Rate 72 Respiratory Rate 18 Blood Pressure 171/89 H 182/88 H Pulse Oximetry 95 03/13/24 00:55 03/13/24 00:55 03/13/24 01:00 Pulse Rate 76 72 Respiratory Rate 18 Blood Pressure 160/80 H Pulse Oximetry 97 95 03/13/24 01:00 03/13/24 01:30 03/13/24 01:30 Pulse Rate 65 Respiratory Rate Blood Pressure 152/83 H 149/75 H Pulse Oximetry 96 03/13/24 02:00 03/13/24 02:01 03/13/24 02:01 Pulse Rate 72 72 Respiratory Rate Blood Pressure 173/84 H Pulse Oximetry 94 96 03/13/24 02:30 03/13/24 02:30 03/13/24 03:00 Pulse Rate 70 78 Respiratory Rate Blood Pressure 151/74 H Pulse Oximetry 95 94 03/13/24 03:30 03/13/24 04:00 03/13/24 04:30 Pulse Rate 71 73 71 Respiratory Rate Blood Pressure Pulse Oximetry 95 93 95 03/13/24 05:00 03/13/24 05:01 03/13/24 06:28 Pulse Rate 73 Respiratory Rate Blood Pressure 162/75 H Pulse Oximetry 96 99 03/13/24 06:30 03/13/24 06:30 Pulse Rate 74 Respiratory Rate Blood Pressure 152/72 H Pulse Oximetry 96 MDM - Back Pain/Injury Lab Data 03/12/24 18:00 03/12/24 18:00 Labs: Lab Results 03/12/24 Range/Units 18:00 WBC 13.6 H (4.5-11.0) X10^3/uL RBC 4.02 L (4.5-5.9) X10^6/uL Hgb 12.1 L (13.5-17.5) g/dL Hct 35.7 L (41-53) % MCV 88.8 (80-100) fL MCH 30.1 (26-34) PG MCHC 33.9 (30-36) % RDW 14.7 (11.6-14.8) % Plt Count 261 (150-400) X10^3/uL Neut % (Auto) 83.2 H (50-75) % Lymph % (Auto) 9.1 L (25-40) % [place] % (Auto) 6.9 (3-14) % Eos % (Auto) 0.5 L (2-4) % Baso % (Auto) 0.3 (0-2) % Neut # (Auto) 42545 H (5351-2929) /uL Lymph # (Auto) 1200 (3320-9374) /uL [place] # (Auto) 900 (0-900) /uL Eos # (Auto) 100 (0-450) /uL Baso # (Auto) 0 (0-100) /uL Sodium 133 L (137-145) mmol/L Potassium 3.8 (3.4-5.1) mmol/L Chloride 102 (98-107) mmol/L Carbon Dioxide 27 (22-32) mmol/L BUN 14 (9-20) mg/dL Creatinine 0.76 (0.66-1.25) mg/dL Estimated GFR > 60 (>60) mL/min BUN/Creatinine Ratio 18.4 (6-22) Glucose 78 L (80-110) mg/dL Calcium 8.7 (8.4-10.2) mg/dL Total Bilirubin 0.9 (0.2-1.3) mg/dL AST 43 (17-59) IU/L ALT 43 (<50) IU/L Alkaline Phosphatase 114 (38-126) U/L Total Protein 7.0 (6.3-8.2) g/dL Albumin 3.8 (3.5-5.0) g/dL Globulin 3.2 (1.7-4.1) g/dL Albumin/Globulin Ratio 1.2 (1.0-2.8) Point of Care Testing Glucose POC 131 ECG Data Attestation: I personally reviewed and interpreted this ECG as follows: Interpretation: Normal sinus rhythm with a rate of 78, no obvious ST segment elevation or depression changes, unremarkable intervals. Q-waves V1 and V2 noted. [facility] Narrative Medical decision making narrative: Fall from wheelchair back of head with headache and neck pain and back pain, takes chronic anticoagulation. CT head study no acute changes. CT thoracic spine no acute fracture, but old remote appearing trauma right sided T10-12 with bony overgrowth mentioned. C-spine and lumbar spine without acute changes 0130, still having significant pain, blood thinner medication noted, spinal imaging essentially unrevealing besides old post traumatic changes and arthritis, consider bleeding and referred pain from blood thinner, CT abdomen and pelvis requested. Chest x-ray requested. IV Dilaudid doses x2 given, we will add IV Versed for muscle relaxant effect CT abdomen and pelvis shows no acute traumatic changes, interstitial lung markings bases noted, no lobar infiltrate described. See report from [facility]. Chest x-ray single view, no acute abnormality, stable chest, compared to 05/15/2022 study. See report from [facility] 0715, patient having food tray, upright, feels better. Will discharge patient back to his home. Continue with chronic pain medications for now. Follow up with PCP as planned Critical Care Time Critical Care Time Critical Care Time: Yes Total Critical Care Time: 35 Attestation: The high probability of a clinically significant, sudden or life threatening deterioration of the [musculoskeletal, axial spinal, cardiopulmonary, neurologic] system(s) required my full and direct attention, intervention and personal management. The aggregate critical care time was [35] minutes. This time is in addition to time spent performing reported procedures but includes the following: [x] Data Review and interpretation [x] Patient assessment and monitoring of vital signs [x] Documentation [x] Medication orders and management Discharge Plan Departure Patient Disposition: Home Clinical Impression: Fall from ground level, Cervical strain Back pain Qualifiers: Back pain location: back pain in unspecified location Chronicity: unspecified Activity Restrictions/Additional Instructions: Fall backwards from wheelchair with neck and back pain, history of chronic pain. CT imaging of the head and spine showed no acute changes, but some old dramatic like changes and arthritic changes in the spine region. Serial medications were given to help control your pain symptoms. CT scanning of her abdomen and pelvis was additionally done to see if there is any referred pain from bleeding or other problems that could be accounting for your pain, though studies were negative. Overnight you felt better, improved, able to eat morning breakfast tray, we will discharge home, follow up with your regular provider as planned. Prescriptions: No Action (DME) blood-glucose meter Kit See Rx Instructions .ROUTE .MEDSUPPLY Qty: 1 0RF Rx Instructions: Use to test blood glucose BID (DME) Disabled Parking Permit See Rx Instructions .ROUTE .MEDSUPPLY Qty: 1 0RF Rx Instructions: Valid for 5 years tamsulosin 0.4 mg capsule 0.4 mg PO BEDTIME Qty: 90 3RF (DME) pen needle, diabetic [Comfort EZ Pen [place]] 31 gauge x 5/16 needle See Dose Instructions .ROUTE .MEDSUPPLY Qty: 100 5RF Dose Instruction: As directed Rx Instructions: Use to inject insulin 5 times per day (DME) lancets [BD Ultra Fine Lancets] 33 gauge misc See Rx Instructions .ROUTE .MEDSUPPLY Qty: 100 6RF Rx Instructions: Use to test blood glucose twice daily (DME) Blood Glucose Test Strip See Rx Instructions .ROUTE .MEDSUPPLY Qty: 100 6RF Rx Instructions: Use to test blood glucose twice daily. (DME) FreeStyle Timmy 2 [place] [facility] See Rx Instructions .ROUTE .MEDSUPPLY Qty: 1 12RF Rx Instructions: As directed albuterol sulfate [Proventil HFA] 90 mcg/actuation HFA aerosol inhaler 2 puff INHALATION QID PRN (Reason: shortness of breath) Qty: 18 5RF ipratropium-albuterol 0.5 mg-3 mg(2.5 mg base)/3 mL solution for nebulization See Rx Instructions .ROUTE .COMPLEX Qty: 90 1RF Dose Instruction: USE 3 ML VIA NEBULIZER EVERY 4 TO 6 HOURS NEEDED FOR SHORTNESS OF BREATH OR WHEEZING Rx Instructions: USE 3 ML VIA NEBULIZER EVERY 4 TO 6 HOURS NEEDED FOR SHORTNESS OF BREATH OR WHEEZING lorazepam 1 mg tablet 1 mg PO 2XD Qty: 60 0RF bupropion HCl 300 mg tablet extended release 24 hr 300 mg PO DAILY Qty: 90 3RF Novolog FlexPen U-100 Insulin 100 unit/mL (3 mL) insulin pen See Rx Instructions SUBCUT .COMPLEX Qty: 15 11RF Rx Instructions: 10 units a.c. t.i.d. depending on carbohydrate content of meal quetiapine 25 mg tablet 25 mg PO BEDTIME Qty: 90 3RF atorvastatin 80 mg tablet 80 mg PO DAILY Qty: 90 3RF omeprazole 20 mg capsule,delayed release(DR/EC) 20 mg PO DAILY Qty: 30 3RF insulin glargine U-300 conc 300 unit/mL (3 mL) insulin pen 90 unit SUBCUT BID Qty: 15 11RF levothyroxine 125 mcg tablet 125 mcg PO DAILY Qty: 90 0RF nystatin 100,000 unit/gram powder 1 applic topical TID PRN (Reason: Tinea cruris) Qty: 30 1RF gabapentin 300 mg capsule 600 mg PO BID Qty: 120 1RF oxycodone 5 mg tablet 5 mg PO Q4-6H PRN (Reason: Pain, Moderate) Qty: 60 0RF (DME) flash glucose sensor Kit See Rx Instructions .Route Qty: 1 6RF Rx Instructions: Use to check blood sugars twice daily. beclomethasone dipropionate 40 mcg/actuation HFA aerosol breath activated 1 inh Inhalation BID Qty: 10.6 5RF Ozempic 0.25 mg or 0.5 mg (2 mg/3 mL) pen injector 0.5 mg SUBCUT QWEEK Qty: 3 1RF Rx Instructions: start injecting 0.5 mg every week naproxen 500 mg tablet 500 mg PO BID PRN (Reason: pain) Qty: 40 0RF terbinafine HCl 250 mg tablet 250 mg PO DAILY Qty: 14 0RF Referrals: Gasper Rutherford, [Primary Care Provider] - Stand Alone Forms: Patient Portal/API
[2024-03-12] MEDS: MIDAZOLAM 5 MG/ML VIAL IV (22:08)
[2024-03-13] VITALS (18 sets, daily range): BP systolic 147–182; BP diastolic 71–89; PULSE 65–78; RESP 16–18; O2SAT 93–99
[2024-03-13 00:53] LABS: Add Manual Diff / Slide Review NO; Basophils Absolute Auto 0 /uL (0-100); Basophils Percent Auto 0.3 % (0-2); Eosinophils Absolute Auto 100 /uL (0-450); Eosinophils Percent Auto 0.5 % (2-4); Hematocrit 35.7 % (41-53); Hemoglobin 12.1 g/dL (13.5-17.5); Lymphocytes Absolute Auto 1200 /uL (1100-4500); Lymphocytes Percent Auto 9.1 % (25-40); Mean Corpuscular HGB Conc 33.9 % (30-36); Mean Corpuscular Hemoglobin 30.1 PG (26-34); Mean Corpuscular Volume 88.8 fL (80-100); Monocytes Absolute Auto 900 /uL (0-900); Monocytes Percent Auto 6.9 % (3-14); Neutrophils Absolute Auto 11300 /uL (1500-7000); Neutrophils Percent Auto 83.2 % (50-75); Platelet Count 261 X10^3/uL (150-400); Red Blood Cell Count 4.02 X10^6/uL (4.5-5.9); Red Cell Distribution Width 14.7 % (11.6-14.8); White Blood Cell Count 13.6 X10^3/uL (4.5-11.0)
[2024-03-13] MEDS: HYDROMORPHONE 0.5 MG INJ IV (00:54)
[2024-03-13 00:59] LABS: Alanine Aminotransferase 43 IU/L (<50); Albumin 3.8 g/dL (3.5-5.0); Albumin Globulin Ratio 1.2 (1.0-2.8); Alkaline Phosphatase 114 U/L (38-126); Aspartate Aminotransferase 43 IU/L (17-59); BUN Creatinine Ratio 18.4 (6-22); Bilirubin Total 0.9 mg/dL (0.2-1.3); Blood Urea Nitrogen 14 mg/dL (9-20); Calcium 8.7 mg/dL (8.4-10.2); Carbon Dioxide 27 mmol/L (22-32); Chloride 102 mmol/L (98-107); Estimated Glomerular Filt Rate > 60 mL/min (>60); Globulin 3.2 g/dL (1.7-4.1); Glucose 78 mg/dL (80-110); HEMOLYSIS < 15 (0-50); Potassium 3.8 mmol/L (3.4-5.1); Sodium 133 mmol/L (137-145)
--- NOTE | 2024-03-13 01:57 | DI.CT.S_ITS ---
PROCEDURE: CT ABDOMEN PELVIS W CON INDICATIONS: back pain post fall, blood thinners TECHNIQUE: After the administration of intravenous contrast, axial sections acquired from the lung bases to the pubic symphysis. Coronal and sagittal reformats were performed. For radiation dose reduction, the following was used: automated exposure control, adjustment of mA and/or kV according to patient size. COMPARISON: None. FINDINGS: Lower thorax: Coarse interstitial changes noted in both lung bases appear chronic Liver: The liver is diffusely decreased in attenuation without focal mass lesion. Biliary system: No calcified cholelithiasis or pericholecystic inflammation. No intra or extrahepatic bile duct dilatation. Pancreas: Unremarkable without mass or inflammation evident. Spleen: Normal in size and density. Adrenals: Normal morphology and density. Reproductive system: Unremarkable as visualized. Urinary system: Normal renal size and attenuation. No renal calculi, hydronephrosis, or solid mass present. Urinary bladder unremarkable. Gastrointestinal system: The bowel is unremarkable without evidence of bowel obstruction or inflammation. The stomach appears unremarkable. Multiple diverticula arise from the sigmoid colon without evidence of diverticulitis. Appendix: No findings to suggest acute appendicitis. Peritoneal spaces: No mesenteric or retroperitoneal adenopathy. No free air. No free fluid. Vasculature: Aortic atherosclerotic vascular calcification noted without evidence of aneurysm. Abdominal wall: Abdominal wall intact without evidence of ventral or inguinal hernias. Musculoskeletal: Normal bone mineralization. Degenerative disc disease and arthropathy noted in lower lumbar spine. No acute fractures. IMPRESSION: 1. No acute CT findings in the abdomen and pelvis. No evidence of osseous or visceral traumatic injury. No hematoma. 2. Chronic findings as above Note: This final report is concordant with the preliminary after-hours interpretation provided by [employer] Approved by: Terrence Harrell M.D. on 03/13/2024 at 8:51
--- NOTE | 2024-03-13 02:13 | DI.RAD.S_ITS ---
PROCEDURE: XR CHEST 1V INDICATIONS: trauma TECHNIQUE: One view of the chest was acquired. COMPARISON: [facility], CR, XR CHEST 2V, 03/06/2024, 17:21. FINDINGS: Surgical changes and devices: None. Lungs and pleura: Diffuse chronic interstitial changes. Basilar atelectasis and or infiltrate. No pneumothorax Mediastinum: Mediastinal contours appear normal. Heart size is normal. Bones and chest wall: No suspicious bony lesions. Overlying soft tissues appear unremarkable. Old healed right 5th rib fracture, unchanged IMPRESSION: Diffuse chronic interstitial changes without pneumothorax or acute displaced rib fracture Approved by: Terrence Harrell M.D. on 03/13/2024 at 8:45
[2024-03-13] MEDS: MIDAZOLAM 2 MG/2 ML VIAL 4 MG IV (02:42)
[2024-03-13] MEDS: SODIUM CHLORIDE 0.9% 1,000 ML 1000 ML IV (02:43)
--- NOTE | 2024-03-13 06:30 | PC.NURSE ---
pt awake feeling like bs is low FSG 51 Dr Escobar informed pt given juice, sandwich and cheese pt assisted to stand and transfer to able to do with minimal assistance noted, after getting up pt states I feel better now, Dr Escobar informed of pt being able to transfer as usual
== END 2024-03-13 08:15 | disposition home or self-care (01) ==
PROVIDERS: Emergency Provider Emergency Medicine; PCP Family Medicine
DX: S16.1XXA Strain of muscle, fascia and tendon at neck level, initial encounter (principal); M54.50 Low back pain, unspecified; Z79.01 Long term (current) use of anticoagulants; W05.0XXA Fall from non-moving wheelchair, initial encounter
CPT/HCPCS: 70450; 71045; 72125; 72128; 72131; 74177; 80053; 82962; 85025; 93005; 93010; 96374; 96375; 96376; 99284; J1170; J2250; Q9967

== ENCOUNTER 2024-03-29 22:55 | Emergency (ER) | payer MEDICARE, MEDICAID, SELFPAY ==
[2022-12-12 10:26] VITALS: BMI 33.9
[2024-03-29 23:02] VITALS: BP 131/59; PULSE 86; RESP 17; TEMP 37.1; O2SAT 98; BMI 29.0
--- NOTE | 2024-03-29 23:04 | DI.CT.S_ITS ---
PROCEDURE: CT HEAD/BRAIN WO CON INDICATIONS: fall with hitting head on aspirin and plavix TECHNIQUE: Noncontrast 4.5 mm thick angled axial sections acquired from the foramen magnum to the vertex, with coronal and sagittal reformats. For radiation dose reduction, the following was used: automated exposure control, adjustment of mA and/or kV according to patient size. COMPARISON: [facility], CT, CT HEAD/BRAIN WO CON, 03/12/2024, 21:36. FINDINGS: Image quality: Diagnostic. CSF spaces: Basal cisterns are patent. No extra-axial fluid collections. The ventricles are symmetric in size and shape. Brain: No intracranial bleeds or masses. There is cerebral volume loss for age, with resultant ventricular and sulcal prominence. There are periventricular and deep white matter chronic small vessel ischemic changes. There is intracranial internal carotid artery atherosclerosis. Skull and face: Calvarium and visualized facial bones appear intact, without suspicious lesions. Sinuses: Visualized sinuses and mastoids are clear. IMPRESSION: No acute intracranial pathology. No acute skull fracture. Dictated by: Keron Colunga M.D. on 03/29/2024 at 23:45 Approved by: Keron Colunga M.D. on 03/29/2024 at 23:46
--- NOTE | 2024-03-29 23:04 | DI.CT.S_ITS ---
PROCEDURE: CT CERVICAL SPINE WO CON INDICATIONS: fall with hitting head on aspirin and plavix TECHNIQUE: Noncontrast 3 mm thick sections acquired from the skull base to the T4 level. Sagittal and coronal reformats were then constructed. For radiation dose reduction, the following was used: automated exposure control, adjustment of mA and/or kV according to patient size. COMPARISON: [facility], CT, CT CERVICAL SPINE WO CON, 03/12/2024, 21:36. FINDINGS: Image quality: Excellent. Bones: No fractures or dislocations. Reversal of normal cervical lordosis is seen. Loss of disc height, degenerative endplate changes and bilateral uncovertebral hypertrophic changes are noted throughout cervical spine causing cosc-iu-rotigash central canal stenosis and bilateral neural foraminal narrowing most notably at C4-5 level. Visualized superior ribs are intact. Soft tissues: Prevertebral soft tissues are normal in thickness. No paravertebral hematomas. No apical pneumothoraces. IMPRESSION: 1. No displaced cervical spine fracture or traumatic subluxation. 2. No significant changes from previous study. Dictated by: Keron Colunga M.D. on 03/29/2024 at 23:41 Approved by: Keron Colunga M.D. on 03/29/2024 at 23:42
--- NOTE | 2024-03-29 23:14 | ED_ITS ---
HPI - Fall General Chief Complaint: Fall Stated Complaint: glf Time Seen by Provider: 03/29/24 23:00 Source: patient Mode of arrival: EMS History of Present Illness HPI Narrative: 68-year-old male presents by EMS from home for evaluation of head injury after fall. Patient states that he was using the toilet in the middle of the night when he lost his balance and fell, striking his forehead against the side of the tub. Denies loss of consciousness. Reports use of aspirin, denies use of other blood thinners. Currently reporting pain in his anterior forehead where he struck the tub Related Data Previous Rx's Medication Instructions Recorded blood-glucose meter #1 ea 01/11/21 Disabled Parking Permit #1 ea 02/15/21 tamsulosin 0.4 mg capsule 0.4 mg PO BEDTIME #90 caps 06/17/22 lancets 33 gauge (BD Ultra Fine #100 ea 09/24/22 Lancets) pen needle, diabetic 31 gauge x #100 ea 09/24/2203/17 (Comfort EZ Pen [place]) flash glucose scanning reader #1 ea 10/09/22 (FreeStyle Timmy 2 [place]) albuterol sulfate 90 mcg/actuation 2 puff inhalation QID PRN 03/24/23 aerosol inhaler (Proventil HFA) shortness of breath #18 grams lorazepam 1 mg tablet 1 mg PO 2XD #60 tabs 08/03/23 Novolog FlexPen U-100 Insulin 100 See Rx Instructions SUBCUT 10/01/23 unit/mL (3 mL) subcutaneous .COMPLEX #15 mL (insulin aspart U-100) omeprazole 20 mg capsule,delayed 20 mg PO DAILY #30 caps 11/09/23 release beclomethasone dipropionate 40 1 inh inhalation BID Shortness Of 12/11/23 mcg/actuation HFA breath activated Breath #10.6 grams aerosol nystatin 100,000 unit/gram topical 1 applic topical TID PRN Tinea 01/15/24 powder cruris #30 grams naproxen 500 mg tablet 500 mg PO BID PRN pain #40 tabs 01/26/24 terbinafine HCl 250 mg tablet 250 mg PO DAILY #14 tabs 01/26/24 oxycodone 5 mg tablet 5 mg PO Q4-6H PRN Pain, Moderate 03/19/24 #60 tabs atorvastatin 80 mg tablet 80 mg PO DAILY #90 tabs 03/22/24 blood sugar diagnostic (Blood #100 ea 03/22/24 Glucose Test strips) bupropion HCl 300 mg 24 hr tablet, 300 mg PO DAILY #90 tabs 03/22/24 extended release flash glucose sensor #1 ea 03/22/24 gabapentin 300 mg capsule 600 mg (2 x 300 mg) PO BID #120 03/22/24 caps insulin glargine U-300 conc 300 90 unit (0.3 mL) SUBCUT BID #15 mL 03/22/24 unit/mL (3 mL) subcutaneous pen ipratropium 0.5 mg-albuterol 3 mg See Rx Instructions .Route 03/22/24 (2.5 mg base)/3 mL nebulization .COMPLEX #90 mL soln levothyroxine 125 mcg tablet 125 mcg PO DAILY #90 tabs 03/22/24 quetiapine 25 mg tablet 25 mg PO BEDTIME #90 tabs 03/22/24 semaglutide 0.25 mg or 0.5 mg (2 0.5 mg (0.736 mL) SUBCUT QWEEK #3 03/22/24 mg/3 mL) subcutaneous pen injector mL (Ozempic) Allergies Allergy/AdvReac Type Severity Reaction Status Date / Time adhesive Allergy Mild REDNESS/ITC Verified 03/16/24 14:15 HINESS morphine AdvReac ITCHING Verified 03/16/24 14:15 Review of Systems Review of Systems Narrative: See HPI Patient History Medical History Osteoarthritis of left hip Skin sore Stress incontinence Borderline hyperlipidemia Hip pain Cellulitis Mental health assessment declined Steatosis Bilateral otitis externa Sleep apnea Otitis externa Hearing reduced Screening for malignant neoplasm of colon Type 2 diabetes mellitus History of recurrent TIAs Well adult exam Strain of muscle of right groin region (03/30/18) Chicken pox (7) Measles (6) Mumps (9) Status post myocardial infarction Neuropathy Eczema Chronic cough Depression (2008) Obstructive sleep apnea Gout Shoulder pain Foot pain Chickenpox (7) Measles (6) Mumps (9) Kidney disease (2009) GERD (gastroesophageal reflux disease) (2012) Hypothyroidism Hypertension Hyperlipidemia Diabetes (1994) Coronary artery disease (2006) COPD (chronic obstructive pulmonary disease) Surgical History Anesthesia History of heart artery stent (2010) History of heart artery stent (2006) Hx of shoulder surgery (2005) Family History Brother Age: 69 Diabetes mellitus Hyperlipidemia Mother Heart disease Hypertension Hyperlipidemia Diabetes mellitus Grandmother Diabetes mellitus Brother No problems noted. Sister Breast cancer Social History marital status: details: 3 years ago household members: none lives independently: Yes housing: apartment Smoking Status: Current every day smoker Tobacco: How many years used: 45 alcohol intake: current Smoking Status: Current every day smoker tobacco type: cigarettes alcohol intake frequency: 0-2 drinks per day Substance Use Type: marijuana Exam Initial Vital Signs Initial Vital Signs: Vital Signs Temperature 98.8 F 03/29/24 23:02 Pulse Rate 86 03/29/24 23:02 Respiratory Rate 17 03/29/24 23:02 Blood Pressure 131/59 L 03/29/24 23:02 Pulse Oximetry 98 03/29/24 23:02 Oxygen Delivery Method Room Air 03/29/24 23:02 Const: Awake, alert, no acute distress, frail Head: Minimal swelling left anterior forehead, no deformity Cardiac: regular rate, regular rhythm Skin: Warm, Dry, intact, no rashes Neuro: AO x3, CN II-XII grossly intact, moves all extremities Course Orders Ordered: ED Orders 03/29/24 23:04 CT cervical spine wo con Stat CT head/brain wo con Stat Discontinued Medications Acetaminophen (Acetaminophen 325 Mg Tablet) 975 mg PO NOW ONE Stop: 03/29/24 23:44 Last Admin: 03/29/24 23:49 Dose: 975 mg Documented By: NHUNG Oxycodone HCl (Oxycodone Ir 5 Mg Tablet) 5 mg PO NOW ONE Stop: 03/29/24 23:44 Last Admin: 03/29/24 23:49 Dose: 5 mg Documented By: NHUNG Vital Signs Vital signs: Vital Signs - 8 hr 03/29/24 23:02 03/30/24 00:42 Temperature 98.8 F Pulse Rate 86 76 Respiratory Rate 17 18 Blood Pressure 131/59 L 134/60 Pulse Oximetry 98 100 Oxygen Delivery Method Room Air MDM - Fall Differential Diagnosis Differential diagnosis: Likely syncope, concussion with loss of consciousness and concussion without loss of consciousness Imaging Data CT - cervical spine: My Impression: PROCEDURE: CT CERVICAL SPINE WO CON INDICATIONS: fall with hitting head on aspirin and plavix TECHNIQUE: Noncontrast 3 mm thick sections acquired from the skull base to the T4 level. Sagittal and coronal reformats were then constructed. For radiation dose reduction, the following was used: automated exposure control, adjustment of mA and/or kV according to patient size. COMPARISON: [facility], CT, CT CERVICAL SPINE WO CON, 03/12/2024, 21:36. FINDINGS: Image quality: Excellent. Bones: No fractures or dislocations. Reversal of normal cervical lordosis is seen. Loss of disc height, degenerative endplate changes and bilateral uncovertebral hypertrophic changes are noted throughout cervical spine causing [id number] central canal stenosis and bilateral neural foraminal narrowing most notably at C4-5 level. Visualized superior ribs are intact. Soft tissues: Prevertebral soft tissues are normal in thickness. No paravertebral hematomas. No apical pneumothoraces. IMPRESSION: 1. No displaced cervical spine fracture or traumatic subluxation. 2. No significant changes from previous study. Dictated by: Keron Colunga M.D. on 03/29/2024 at 23:41 Approved by: Keron Colunga M.D. on 03/29/2024 at 23:42 CT scan - head: Radiologist's Impression: PROCEDURE: CT HEAD/BRAIN WO CON INDICATIONS: fall with hitting head on aspirin and plavix TECHNIQUE: Noncontrast 4.5 mm thick angled axial sections acquired from the foramen magnum to the vertex, with coronal and sagittal reformats. For radiation dose reduction, the following was used: automated exposure control, adjustment of mA and/or kV according to patient size. COMPARISON: [facility], CT, CT HEAD/BRAIN WO CON, 03/12/2024, 21:36. FINDINGS: Image quality: Diagnostic. CSF spaces: Basal cisterns are patent. No extra-axial fluid collections. The ventricles are symmetric in size and shape. Brain: No intracranial bleeds or masses. There is cerebral volume loss for age, with resultant ventricular and sulcal prominence. There are periventricular and deep white matter chronic small vessel ischemic changes. There is intracranial internal carotid artery atherosclerosis. Skull and face: Calvarium and visualized facial bones appear intact, without suspicious lesions. Sinuses: Visualized sinuses and mastoids are clear. IMPRESSION: No acute intracranial pathology. No acute skull fracture. Dictated by: Keron Colunga M.D. on 03/29/2024 at 23:45 Approved by: Keron Colunga M.D. on 03/29/2024 at 23:46 MDM Narrative Medical decision making narrative: Mechanical fall from toilet with head injury. Due to patient's age a CT scan of the head and neck was performed. These were negative for acute traumatic findings. Patient requested a dose of his home oxycodone, which was provided. Son called to take patient home #[phone] - Emergency Medicine: Utilization of CT for Minor Blunt Head Trauma (Adult) [] Patient has one or more of the following conditions that are excluded from the measure (select all that apply): [] Patient has ventricular shunt [] Patient has brain tumor [] Patient is [] Patient has multi-system trauma [] Patient taking an antiplatelet medication (excluding aspirin) [] Head CT not ordered by emergency hourly caregiver [] Head CT ordered for reasons other than trauma [] Patient is 18 or older, presenting with minor blunt head trauma. Head CT (including cosigned orders) was ordered by an emergency hourly caregiver for trauma because (select one or more): [SATISFIES MIPS PERFORMANCE] Reasons: [x] Patient is 65 or older [] Patient GCS < 15 [] Patient has focal neurologic deficit [] Patient has severe headache [] Patient is vomiting [] Severe/dangerous mechanism of injury was identified (select one or more): []MVA with: patient ejection, of another passenger, rollover, speed > 40mph, airbag deployment, truck driver supervisor or passenger on ATV or motorcycle [] pedestrian or bicyclist without helmet: struck my motorized vehicle, in bicycle crash [] fall > 3 feet or 5 stairs [] head struck by high-impact object (hammer, baseball, baseball bat, heavy object such as falling brick) [] Other: [] (ie. assault description) [] Patient has physical signs of basilar skull fracture present (including hemotympanum, ?raccoon? eyes, CSF leakage from ear or nose, Garduno?s sign) [] Patient suspected of taking anticoagulant medication [] Patient has thrombocytopenia [] Patient has coagulopathy [] Patient has loss of consciousness and (must select one of the following): []Headache []Short term memory deficit []Alcohol/drug intoxication []Evidence of trauma above the clavicles []Age 60 or older [] Post-traumatic seizure [] Patient has post-traumatic amnesia and (must select one of the following): []Headache []Short term memory deficit []Alcohol/drug intoxication []Evidence of trauma above the clavicles []Age 60 or older [] Post-traumatic seizure [] Patient is 18 or older, presenting with minor blunt head trauma. Head CT (including cosigned orders) was ordered by an emergency hourly caregiver for trauma, no indication specified. [DOES NOT SATISFY MIPS PERFORMANCE] Discharge Plan Departure Patient Disposition: Home Clinical Impression: Head injury Qualifiers: Encounter type: initial encounter Qualified Code(s): S09.90XA - Unspecified injury of head, initial encounter Instructions: DI for Closed Head Injury Activity Restrictions/Additional Instructions: Continue your home pain medications. You may apply ice to your forehead if you notice swelling or pain. Follow up as usual with your primary care doctor. Prescriptions: No Action (DME) blood-glucose meter Kit See Rx Instructions .ROUTE .MEDSUPPLY Qty: 1 0RF Rx Instructions: Use to test blood glucose BID (DME) Disabled Parking Permit See Rx Instructions .ROUTE .MEDSUPPLY Qty: 1 0RF Rx Instructions: Valid for 5 years tamsulosin 0.4 mg capsule 0.4 mg PO BEDTIME Qty: 90 3RF (DME) pen needle, diabetic [Comfort EZ Pen [place]] 31 gauge x 5/16 needle See Dose Instructions .ROUTE .MEDSUPPLY Qty: 100 5RF Dose Instruction: As directed Rx Instructions: Use to inject insulin 5 times per day (DME) lancets [BD Ultra Fine Lancets] 33 gauge misc See Rx Instructions .ROUTE .MEDSUPPLY Qty: 100 6RF Rx Instructions: Use to test blood glucose twice daily (DME) FreeStyle Timmy 2 [place] Misc See Rx Instructions .ROUTE .MEDSUPPLY Qty: 1 12RF Rx Instructions: As directed albuterol sulfate [Proventil HFA] 90 mcg/actuation HFA aerosol inhaler 2 puff INHALATION QID PRN (Reason: shortness of breath) Qty: 18 5RF lorazepam 1 mg tablet 1 mg PO 2XD Qty: 60 0RF Novolog FlexPen U-100 Insulin 100 unit/mL (3 mL) insulin pen See Rx Instructions SUBCUT .COMPLEX Qty: 15 11RF Rx Instructions: 10 units a.c. t.i.d. depending on carbohydrate content of meal omeprazole 20 mg capsule,delayed release(DR/EC) 20 mg PO DAILY Qty: 30 3RF nystatin 100,000 unit/gram powder 1 applic topical TID PRN (Reason: Tinea cruris) Qty: 30 1RF oxycodone 5 mg tablet 5 mg PO Q4-6H PRN (Reason: Pain, Moderate) Qty: 60 0RF atorvastatin 80 mg tablet 80 mg PO DAILY Qty: 90 3RF (DME) Blood Glucose Test Strip See Rx Instructions .ROUTE .MEDSUPPLY Qty: 100 6RF Rx Instructions: Use to test blood glucose twice daily. bupropion HCl 300 mg tablet extended release 24 hr 300 mg PO DAILY Qty: 90 3RF (DME) flash glucose sensor Kit See Rx Instructions .Route Qty: 1 6RF Rx Instructions: Use to check blood sugars twice daily. gabapentin 300 mg capsule 600 mg PO BID Qty: 120 1RF insulin glargine U-300 conc 300 unit/mL (3 mL) insulin pen 90 unit SUBCUT BID Qty: 15 11RF ipratropium-albuterol 0.5 mg-3 mg(2.5 mg base)/3 mL solution for nebulization See Rx Instructions .ROUTE .COMPLEX Qty: 90 1RF Dose Instruction: USE 3 ML VIA NEBULIZER EVERY 4 TO 6 HOURS NEEDED FOR SHORTNESS OF BREATH OR WHEEZING Rx Instructions: USE 3 ML VIA NEBULIZER EVERY 4 TO 6 HOURS NEEDED FOR SHORTNESS OF BREATH OR WHEEZING levothyroxine 125 mcg tablet 125 mcg PO DAILY Qty: 90 0RF quetiapine 25 mg tablet 25 mg PO BEDTIME Qty: 90 3RF Ozempic 0.25 mg or 0.5 mg (2 mg/3 mL) pen injector 0.5 mg SUBCUT QWEEK Qty: 3 1RF Rx Instructions: start injecting 0.5 mg every week beclomethasone dipropionate 40 mcg/actuation HFA aerosol breath activated 1 inh Inhalation BID Qty: 10.6 5RF naproxen 500 mg tablet 500 mg PO BID PRN (Reason: pain) Qty: 40 0RF terbinafine HCl 250 mg tablet 250 mg PO DAILY Qty: 14 0RF Referrals: Gasper Rutherford DO [Primary Care Provider] - Stand Alone Forms: Patient Portal/API
[2024-03-29] MEDS: OXYCODONE IR 5 MG TABLET PO (23:49)
[2024-03-29] MEDS: ACETAMINOPHEN 325 MG TABLET 975 MG PO (23:49)
[2024-03-30 00:42] VITALS: BP 134/60; PULSE 76; RESP 18; O2SAT 100
== END 2024-03-30 00:45 | disposition home or self-care (01) ==
PROVIDERS: Emergency Provider Emergency Medicine; PCP Family Medicine
DX: S00.83XA Contusion of other part of head, initial encounter (principal); W18.12XA Fall from or off toilet with subsequent striking against object, initial encounter
CPT/HCPCS: 70450; 72125; 99283; 99284

== ENCOUNTER 2024-03-31 17:33 | Emergency (ER) | payer MEDICARE, MEDICAID, SELFPAY ==
[2022-12-12 10:26] VITALS: BMI 33.9
[2024-03-31] VITALS (22 sets, daily range): BP systolic 124–170; BP diastolic 59–90; PULSE 61–77; RESP 14–18; TEMP 36.9; O2SAT 78–99; BMI 29.0
--- NOTE | 2024-03-31 17:41 | DI.CT.S_ITS ---
PROCEDURE: CT HEAD/BRAIN WO CON INDICATIONS: fall on thinners, hit head TECHNIQUE: Noncontrast 4.5 mm thick angled axial sections acquired from the foramen magnum to the vertex, with coronal and sagittal reformats. For radiation dose reduction, the following was used: automated exposure control, adjustment of mA and/or kV according to patient size. COMPARISON: [facility], CT, CT HEAD/BRAIN WO CON, 03/29/2024, 23:12. FINDINGS: Image quality: Diagnostic. CSF spaces: Basal cisterns are patent. No extra-axial fluid collections. Ventricles are normal in size and shape. Brain: No midline shift. No intracranial masses or hemorrhage. [place]-white matter interface is normal. Skull and face: Calvarium and visualized facial bones are intact, without suspicious lesions. Sinuses: Visualized sinuses and mastoids are clear. IMPRESSION: No acute intracranial pathology. Approved by: Alma Rosa Laura M.D.,Ph.D. on 03/31/2024 at 17:43
--- NOTE | 2024-03-31 18:12 | DI.RAD.S_ITS ---
PROCEDURE: XR CHEST 1V INDICATIONS: increasing falls, gen weakness TECHNIQUE: One view of the chest was acquired. COMPARISON: [facility], CT, CT ABDOMEN PELVIS W CON, 03/13/2024, 2:35. [facility], CR, XR CHEST 1V, 03/13/2024, 2:12. [facility], CR, XR CHEST 2V, 03/06/2024, 17:21. FINDINGS: Surgical changes and devices: None. Lungs and pleura: No consolidation. Fibrotic changes. No pleural effusions or pneumothorax. Mediastinum: Mediastinal contours appear normal. Heart size is normal. Bones and chest wall: No suspicious bony lesions. Prior right-sided rib fractures. Overlying soft tissues appear unremarkable. IMPRESSION: No acute cardiopulmonary abnormality identified. Fibrotic changes. Dictated by: Ed Hall M.D. on 03/31/2024 at 20:16 Approved by: Ed Hall M.D. on 03/31/2024 at 20:18
--- NOTE | 2024-03-31 18:12 | ED_ITS ---
HPI - Fall General Chief Complaint: Trauma Stated Complaint: Fall, on plavix Time Seen by Provider: 03/31/24 17:55 Source: EMS Mode of arrival: EMS History of Present Illness HPI Narrative: 68-year-old male with history of Lewy body dementia, hypertension, arthritis presents by EMS from home for ground level fall with head injury. Patient lost his balance and hit his head on the ground. He was on Plavix. Denies loss of consciousness. Seen several days ago for head injury after losing balance on the toilet. EMS reports multiple visits to the home for lift assist. Related Data Previous Rx's Medication Instructions Recorded blood-glucose meter #1 ea 01/11/21 Disabled Parking Permit #1 ea 02/15/21 tamsulosin 0.4 mg capsule 0.4 mg PO BEDTIME #90 caps 06/17/22 lancets 33 gauge (BD Ultra Fine #100 ea 09/24/22 Lancets) pen needle, diabetic 31 gauge x #100 ea 09/24/22/ (Comfort EZ Pen [place]) flash glucose scanning reader #1 ea 10/09/22 (FreeStyle Timmy 2 [place]) albuterol sulfate 90 mcg/actuation 2 puff inhalation QID PRN 03/24/23 aerosol inhaler (Proventil HFA) shortness of breath #18 grams lorazepam 1 mg tablet 1 mg PO 2XD #60 tabs 08/03/23 Novolog FlexPen U-100 Insulin 100 See Rx Instructions SUBCUT 10/01/23 unit/mL (3 mL) subcutaneous .COMPLEX #15 mL (insulin aspart U-100) omeprazole 20 mg capsule,delayed 20 mg PO DAILY #30 caps 11/09/23 release beclomethasone dipropionate 40 1 inh inhalation BID Shortness Of 12/11/23 mcg/actuation HFA breath activated Breath #10.6 grams aerosol nystatin 100,000 unit/gram topical 1 applic topical TID PRN Tinea 01/15/24 powder cruris #30 grams naproxen 500 mg tablet 500 mg PO BID PRN pain #40 tabs 01/26/24 terbinafine HCl 250 mg tablet 250 mg PO DAILY #14 tabs 01/26/24 oxycodone 5 mg tablet 5 mg PO Q4-6H PRN Pain, Moderate 03/19/24 #60 tabs atorvastatin 80 mg tablet 80 mg PO DAILY #90 tabs 03/22/24 blood sugar diagnostic (Blood #100 ea 03/22/24 Glucose Test strips) bupropion HCl 300 mg 24 hr tablet, 300 mg PO DAILY #90 tabs 03/22/24 extended release flash glucose sensor #1 ea 03/22/24 gabapentin 300 mg capsule 600 mg (2 x 300 mg) PO BID #120 03/22/24 caps insulin glargine U-300 conc 300 90 unit (0.3 mL) SUBCUT BID #15 mL 03/22/24 unit/mL (3 mL) subcutaneous pen ipratropium 0.5 mg-albuterol 3 mg See Rx Instructions .Route 03/22/24 (2.5 mg base)/3 mL nebulization .COMPLEX #90 mL soln levothyroxine 125 mcg tablet 125 mcg PO DAILY #90 tabs 03/22/24 quetiapine 25 mg tablet 25 mg PO BEDTIME #90 tabs 03/22/24 semaglutide 0.25 mg or 0.5 mg (2 0.5 mg (0.736 mL) SUBCUT QWEEK #3 03/22/24 mg/3 mL) subcutaneous pen injector mL (Ozempic) Allergies Allergy/AdvReac Type Severity Reaction Status Date / Time adhesive Allergy Mild REDNESS/ITC Verified 03/31/24 17:52 HINESS morphine AdvReac ITCHING Verified 03/31/24 17:52 Patient History Medical History Osteoarthritis of left hip Skin sore Stress incontinence Borderline hyperlipidemia Hip pain Cellulitis Mental health assessment declined Steatosis Bilateral otitis externa Sleep apnea Otitis externa Hearing reduced Screening for malignant neoplasm of colon Type 2 diabetes mellitus History of recurrent TIAs Well adult exam Strain of muscle of right groin region (03/30/18) Chicken pox (7) Measles (6) Mumps (9) Status post myocardial infarction Neuropathy Eczema Chronic cough Depression (2008) Obstructive sleep apnea Gout Shoulder pain Foot pain Chickenpox (7) Measles (1956) Mumps (9) Kidney disease (2009) GERD (gastroesophageal reflux disease) (2012) Hypothyroidism Hypertension Hyperlipidemia Diabetes (1994) Coronary artery disease (2006) COPD (chronic obstructive pulmonary disease) Surgical History Anesthesia History of heart artery stent (2010) History of heart artery stent (2006) Hx of shoulder surgery (2005) Family History Brother Age: 69 Diabetes mellitus Hyperlipidemia Mother Heart disease Hypertension Hyperlipidemia Diabetes mellitus Grandmother Diabetes mellitus Brother No problems noted. Sister Breast cancer Social History marital status: details: 3 years ago household members: none lives independently: Yes housing: apartment Smoking Status: Current every day smoker Tobacco: How many years used: 45 alcohol intake: current Smoking Status: Current every day smoker tobacco type: cigarettes alcohol intake frequency: 0-2 drinks per day Substance Use Type: marijuana Exam Initial Vital Signs Initial Vital Signs: Vital Signs Blood Pressure 137/63 03/31/24 17:42 Const: Awake, alert, no acute distress, nontoxic appearing MSK: Atraumatic, full range of motion, pulses equal Skin: Warm, Dry, intact, no rashes Neuro: AO x3, poor memory, CN II-XII grossly intact, moves all extremities Course Orders Ordered: ED Orders 03/31/24 19:37 UA Complete [Urinalysis and Microscopic] Stat Vital Signs Vital signs: Vital Signs - 8 hr 03/31/24 20:29 03/31/24 20:30 03/31/24 20:30 Pulse Rate 68 Respiratory Rate Blood Pressure 149/81 H Pulse Oximetry 78 L 93 Oxygen Delivery Method 03/31/24 20:46 03/31/24 20:46 03/31/24 20:56 Pulse Rate 77 71 Respiratory Rate Blood Pressure 124/59 L Pulse Oximetry 96 93 Oxygen Delivery Method 03/31/24 20:56 03/31/24 20:57 Pulse Rate 71 Respiratory Rate 18 Blood Pressure 170/74 H 170/74 H Pulse Oximetry 93 Oxygen Delivery Method Room Air MDM - Fall Differential Diagnosis Differential diagnosis: Likely syncope, concussion with loss of consciousness and concussion without loss of consciousness Lab Data 03/31/24 18:42 03/31/24 18:42 Labs: Lab Results 03/31/24 03/31/24 03/31/24 Range/Units 18:42 19:14 19:37 WBC 5.5 (4.5-11.0) X10^3/uL RBC 3.90 L (4.5-5.9) X10^6/uL Hgb 12.0 L (13.5-17.5) g/dL Hct 34.5 L (41-53) % MCV 88.5 (80-100) fL MCH 30.8 (26-34) PG MCHC 34.8 (30-36) % RDW 14.9 H (11.6-14.8) % Plt Count 148 L (150-400) X10^3/uL Neut % (Auto) 56.1 (50-75) % Lymph % (Auto) 27.9 (25-40) % [place] % (Auto) 13.2 (3-14) % Eos % (Auto) 2.2 (2-4) % Baso % (Auto) 0.6 (0-2) % Neut # (Auto) 3100 (6719-1545) /uL Lymph # (Auto) 1500 (4996-8371) /uL [place] # (Auto) 700 (0-900) /uL Eos # (Auto) 100 (0-450) /uL Baso # (Auto) 0 (0-100) /uL Sodium 135 L (137-145) mmol/L Potassium 4.1 (3.4-5.1) mmol/L Chloride 104 (98-107) mmol/L Carbon Dioxide 26 (22-32) mmol/L BUN 17 (9-20) mg/dL Creatinine 0.89 (0.66-1.25) mg/dL Estimated GFR > 60 (>60) mL/min BUN/Creatinine Ratio 19.1 (6-22) Glucose 91 (80-110) mg/dL Calcium 8.0 L (8.4-10.2) mg/dL Magnesium 1.8 (1.6-2.3) mg/dL Total Bilirubin 0.6 (0.2-1.3) mg/dL AST 55 (17-59) IU/L ALT 44 (<50) IU/L Alkaline Phosphatase 133 H (38-126) U/L Ammonia < 9 L (9-30) umol/L Total Creatine Kinase 319 H (55-170) U/L Troponin I < 0.012 (0.01-0.034) ng/mL Total Protein 6.6 (6.3-8.2) g/dL Albumin 3.5 (3.5-5.0) g/dL Globulin 3.1 (1.7-4.1) g/dL Albumin/Globulin Ratio 1.1 (1.0-2.8) Urine Color Yellow Urine Appearance Clear Urine pH 6.0 (4.5-8.0) Ur Specific [place] 1.010 (1.000-1.035) Urine Protein 2+ H (Negative) Urine Glucose (UA) Negative (Negative) g/dL Urine Ketones Negative (NEGATIVE) Urine Occult Blood 1+ H (Negative) Urine Nitrate Negative (Negative) Urine Bilirubin Negative (NEGATIVE) Urine Urobilinogen 4.0 H (0.2) E.U./dL Ur Leukocyte Esterase Negative (NEGATIVE) Urine RBC None seen (0-5/HPF) Urine WBC 0-1/hpf (0-5/HPF) Ur Squamous Epith Cells None seen (0-5/HPF) Urine Bacteria None seen (None) Ur Culture Indicated? Cult not indicated Vol Urine Centrifuged 10ml (spun) Point of Care Testing Glucose POC 100 MDM Narrative Medical decision making narrative: Ground level fall with head injury. Multiple ER visits and EMS visits for same. Case management contacted due to high incident of fall. She was able to discuss care with patient's son, who stated that patient lives independently but does not want to live with the family and does not want to go to a fci. INTERIOR DESIGN ASSISTANT stated patient could benefit from SNF placement if medical reason for admission to hospital. Laboratory work and CT imaging showed no acute findings, unfortunately no medical indication for admission at this time. Son arrived to take patient home. Discharge Plan Departure Patient Disposition: Home Clinical Impression: Head injury, Frequent falls Instructions: DI for Closed Head Injury Activity Restrictions/Additional Instructions: Follow up with your primary care doctor about possibly being evaluated for higher level of care such as shelter facility or rehab facility. Prescriptions: No Action (DME) blood-glucose meter Kit See Rx Instructions .ROUTE .MEDSUPPLY Qty: 1 0RF Rx Instructions: Use to test blood glucose BID (DME) Disabled Parking Permit See Rx Instructions .ROUTE .MEDSUPPLY Qty: 1 0RF Rx Instructions: Valid for 5 years tamsulosin 0.4 mg capsule 0.4 mg PO BEDTIME Qty: 90 3RF (DME) pen needle, diabetic [Comfort EZ Pen [place]] 31 gauge x 5/16 needle See Dose Instructions .ROUTE .MEDSUPPLY Qty: 100 5RF Dose Instruction: As directed Rx Instructions: Use to inject insulin 5 times per day (DME) lancets [BD Ultra Fine Lancets] 33 gauge misc See Rx Instructions .ROUTE .MEDSUPPLY Qty: 100 6RF Rx Instructions: Use to test blood glucose twice daily (DME) FreeStyle Timmy 2 [place] Misc See Rx Instructions .ROUTE .MEDSUPPLY Qty: 1 12RF Rx Instructions: As directed albuterol sulfate [Proventil HFA] 90 mcg/actuation HFA aerosol inhaler 2 puff INHALATION QID PRN (Reason: shortness of breath) Qty: 18 5RF lorazepam 1 mg tablet 1 mg PO 2XD Qty: 60 0RF Novolog FlexPen U-100 Insulin 100 unit/mL (3 mL) insulin pen See Rx Instructions SUBCUT .COMPLEX Qty: 15 11RF Rx Instructions: 10 units a.c. t.i.d. depending on carbohydrate content of meal omeprazole 20 mg capsule,delayed release(DR/EC) 20 mg PO DAILY Qty: 30 3RF nystatin 100,000 unit/gram powder 1 applic topical TID PRN (Reason: Tinea cruris) Qty: 30 1RF oxycodone 5 mg tablet 5 mg PO Q4-6H PRN (Reason: Pain, Moderate) Qty: 60 0RF atorvastatin 80 mg tablet 80 mg PO DAILY Qty: 90 3RF (DME) Blood Glucose Test Strip See Rx Instructions .ROUTE .MEDSUPPLY Qty: 100 6RF Rx Instructions: Use to test blood glucose twice daily. bupropion HCl 300 mg tablet extended release 24 hr 300 mg PO DAILY Qty: 90 3RF (DME) flash glucose sensor Kit See Rx Instructions .Route Qty: 1 6RF Rx Instructions: Use to check blood sugars twice daily. gabapentin 300 mg capsule 600 mg PO BID Qty: 120 1RF insulin glargine U-300 conc 300 unit/mL (3 mL) insulin pen 90 unit SUBCUT BID Qty: 15 11RF ipratropium-albuterol 0.5 mg-3 mg(2.5 mg base)/3 mL solution for nebulization See Rx Instructions .ROUTE .COMPLEX Qty: 90 1RF Dose Instruction: USE 3 ML VIA NEBULIZER EVERY 4 TO 6 HOURS NEEDED FOR SHORTNESS OF BREATH OR WHEEZING Rx Instructions: USE 3 ML VIA NEBULIZER EVERY 4 TO 6 HOURS NEEDED FOR SHORTNESS OF BREATH OR WHEEZING levothyroxine 125 mcg tablet 125 mcg PO DAILY Qty: 90 0RF quetiapine 25 mg tablet 25 mg PO BEDTIME Qty: 90 3RF Ozempic 0.25 mg or 0.5 mg (2 mg/3 mL) pen injector 0.5 mg SUBCUT QWEEK Qty: 3 1RF Rx Instructions: start injecting 0.5 mg every week beclomethasone dipropionate 40 mcg/actuation HFA aerosol breath activated 1 inh Inhalation BID Qty: 10.6 5RF naproxen 500 mg tablet 500 mg PO BID PRN (Reason: pain) Qty: 40 0RF terbinafine HCl 250 mg tablet 250 mg PO DAILY Qty: 14 0RF Referrals: Gasper Rutherford, [Primary Care Provider] - Stand Alone Forms: Patient Portal/API
[2024-03-31 18:58] LABS: Add Manual Diff / Slide Review NO; Basophils Absolute Auto 0 /uL (0-100); Basophils Percent Auto 0.6 % (0-2); Eosinophils Absolute Auto 100 /uL (0-450); Eosinophils Percent Auto 2.2 % (2-4); Hematocrit 34.5 % (41-53); Lymphocytes Absolute Auto 1500 /uL (1100-4500); Lymphocytes Percent Auto 27.9 % (25-40); Mean Corpuscular HGB Conc 34.8 % (30-36); Mean Corpuscular Hemoglobin 30.8 PG (26-34); Mean Corpuscular Volume 88.5 fL (80-100); Monocytes Absolute Auto 700 /uL (0-900); Monocytes Percent Auto 13.2 % (3-14); Neutrophils Absolute Auto 3100 /uL (1500-7000); Neutrophils Percent Auto 56.1 % (50-75); Platelet Count 148 X10^3/uL (150-400); Red Cell Distribution Width 14.9 % (11.6-14.8); White Blood Cell Count 5.5 X10^3/uL (4.5-11.0)
--- NOTE | 2024-03-31 18:58 | CM.SWNOTE ---
Addendum entered by Sofia العلي 04/01/24 11:21: Follow up Note Patient discharges to home upon medical clearance with son. STONE GRADER receives return call from [facility] who states that patient has a [employer] Medicaid terminal carman Care coverage, patient's case consultant is Alfredo Velasquez (Ph. # [phone]) STONE GRADER calls Alfredo and leaves regarding patient's needs for higher level of care assessment. STONE GRADER faxes HH referral to [facility] with PT, OT, RN, HH aide and STONE GRADER services. Sofia العلي, [facility] Original Note: ED STONE GRADER Note STONE GRADER receives consult from ED provider Dr. Chavarria due to concern for increase in ED presentations and GLFs. Patient is 68 y/o male who presents to ED via EMS due to concern for GLF on Plavix rx. Patient has [facility] Medicare and Medicaid insurance. Patient was transferred to [facility] earlier this month and pt reports he discharged with an [facility] referral, STONE GRADER asks [employer] to request d/c summary records. Patient has hx of Parkinson's, Lewey Body Dementia (Per son's report), borderline hyperlipidemia, increase in GLFs, and ISA. STONE GRADER calls son Cy who reports he is DPOA and only living relative. Cy reports he lives in [place] and he and his family check in on patient regularly. Cy states he offered to have patient stay with him but patient declined. Cy states patient does not want to go to a fpc, it is reported that patient uses a wheelchair at baseline, trouble walking, increase in GLFs. It is reported that patient has been accessing food and getting to the bathroom but falling more frequently. Cy reports patient has fallen 5 times in the last 5 days. Patient has hx of 4 ED presentations in the last month. Son requests HH referral with preference for [facility] because he states patient has had [facility] in the past but he is not sure about current HH or caregivers. Son gives consent for STONE GRADER to call [facility] regarding increase in level of care. STONE GRADER calls [facility] and leaves requesting return call. STONE GRADER enters room to meet with patient, patient presents as A/Ox4. Patient endorses his increase in falls, difficulty standing and walking. Patient endorses he can walk but states it is difficult. Patient states VM discharged with [facility] referral and has an meeting/event planner him weekly, he states he is waiting on PT/OT and they are supposed to start soon. Patient states he has a caregiver 12 hours/week 9AM-12pm four days a week. Patient endorses he is hoping for an increase in hours. STONE GRADER endorses call to [facility] to inquire about increase in hours. STONE GRADER asks about going to a [facility] or SNF where someone could care for him and patient states he will think about it. Patient states he does not drive and uses Medicaid transport. STONE GRADER asks about staying with Cy and patient states that Cy's doorways are too narrow for his wheelchair. STONE GRADER provides patient with Senior Resource Guide and [facility] brochure. STONE GRADER calls [facility] and leaves regarding referral/current service and requests return call. ED provider signs F2F for HH, STONE GRADER to fax referral if new referral is needed to [facility]. Patient will need HH aide added as well. STONE GRADER not able to fax referral at this time, awaiting ED provider H&P. Plan: Patient is not medically clear at this time, if patient discharges, patient's son can provide transport upon medical clearance. STONE GRADER to f/u with [facility] referral and f/u with [facility] regarding increase in caregiver hours and new assessment for higher level of care. MATTHEW Bauman
[2024-03-31 19:29] LABS: Alanine Aminotransferase 44 IU/L (<50); Albumin 3.5 g/dL (3.5-5.0); Albumin Globulin Ratio 1.1 (1.0-2.8); Alkaline Phosphatase 133 U/L (38-126); Aspartate Aminotransferase 55 IU/L (17-59); BUN Creatinine Ratio 19.1 (6-22); Bilirubin Total 0.6 mg/dL (0.2-1.3); Blood Urea Nitrogen 17 mg/dL (9-20); Carbon Dioxide 26 mmol/L (22-32); Chloride 104 mmol/L (98-107); Creatine Kinase 319 U/L (55-170); Estimated Glomerular Filt Rate > 60 mL/min (>60); Globulin 3.1 g/dL (1.7-4.1); Glucose 91 mg/dL (80-110); HEMOLYSIS < 15 (0-50); Magnesium 1.8 mg/dL (1.6-2.3); Potassium 4.1 mmol/L (3.4-5.1); Sodium 135 mmol/L (137-145); Total Protein 6.6 g/dL (6.3-8.2)
[2024-03-31 19:30] LABS: Ammonia (NH3) < 9 umol/L (9-30)
[2024-03-31 19:40] LABS: Troponin I < 0.012 ng/mL (0.01-0.034)
[2024-03-31 19:49] LABS: Appearance Urine UA CLEAR; Bilirubin Urine UA NEGATIVE (NEGATIVE); Color Urine UA YELLOW; Glucose Urine UA NEGATIVE (Negative); Ketones Urine UA NEGATIVE (NEGATIVE); Leukocyte Esterase Urine UA NEGATIVE (NEGATIVE); Nitrite Urine UA NEGATIVE (Negative); Occult Blood Urine UA 1+ (Negative); Protein Urine UA 2+ (Negative)
[2024-03-31 20:03] LABS: Urine Volume 10mL (spun)
[2024-03-31 20:04] LABS: Bacteria Urine None Seen; Culture Indicated Urine Cult Not Indicated; RBC Urine None Seen (0-5/HPF); Squamous Epithelial Cell Urine None Seen (0-5/HPF); WBC Urine 0-1/HPF (0-5/HPF)
--- NOTE | 2024-03-31 20:31 | PC.NURSE ---
Poison control contacted by this RN per ALISSON Chavarria. Poison control advised of pts condition and reason for presentation to the ER. Pt asked when his last does was and how long he has been taking lithium. Pt states that he has been taking lithium for 3 years as prescribed and his last does was about on Thursday night. Poison control states that the the pt should be monitored for worsening symptoms of lithium toxicity (tremors, N/V, inverted P waves, Widening QT interval, seizure, problems w the AV node, and increased agitation. Since the pt is a [facility] user of lithium poison control states that toxicity and changes push the threshold of concern to 2.5. Poison control recommends that the pts maintenance fluids be continued, and lithium levels drawn every 4 hrs until peak, then every 6 hours following. Since [place] is processed via the kidneys, the pt should also be monitored for ISA.
--- NOTE | 2024-03-31 22:00 | PC.NURSE ---
Poison control contacted by this RN per ALISSON Chavarria. Poison control advised of pts condition and reason for presentation to the ER. Pt asked when his last does was and how long he has been taking lithium. Pt states that he has been taking lithium for 3 years as prescribed and his last does was about on Thursday night. Poison control states that the the pt should be monitored for worsening symptoms of lithium toxicity (tremors, N/V, inverted P waves, Widening QT interval, seizure, problems w the AV node, and increased agitation. Since the pt is a senior living user of lithium poison control states that toxicity and changes push the threshold of concern to 2.5. Poison control recommends that the pts maintenance fluids be continued, and lithium levels drawn every 4 hrs until peak, then every 6 hours following. Since [place] is processed via the kidneys, the pt should also be monitored for ISA.
== END 2024-03-31 22:22 | disposition home or self-care (01) ==
PROVIDERS: Emergency Provider Emergency Medicine; PCP Family Medicine
DX: S09.90XA Unspecified injury of head, initial encounter (principal); R29.6 Repeated falls; R07.9 Chest pain, unspecified; W18.30XA Fall on same level, unspecified, initial encounter; Z79.01 Long term (current) use of anticoagulants
CPT/HCPCS: 70450; 71045; 80053; 81001; 82140; 82550; 83735; 84484; 85025; 93005; 99284

== ENCOUNTER → 2024-04-22 10:41 | Outpatient (CLI) | payer MEDICARE, MEDICAID, SELFPAY ==
[2022-12-12 10:26] VITALS: BMI 33.9
[2024-04-22 11:30] LABS: Hemoglobin A1C% w Est Avg Glu 6.8 % (4.0-6.0)
[2024-04-22 11:44] LABS: Appearance Urine UA CLEAR; Bilirubin Urine UA NEGATIVE (NEGATIVE); Color Urine UA YELLOW; Glucose Urine UA NEGATIVE (Negative); Ketones Urine UA NEGATIVE (NEGATIVE); Leukocyte Esterase Urine UA NEGATIVE (NEGATIVE); Nitrite Urine UA NEGATIVE (Negative); Occult Blood Urine UA NEGATIVE (Negative); Protein Urine UA 2+ (Negative); pH Urine UA 6.5 (4.5-8.0)
[2024-04-22 11:59] LABS: Bacteria Urine Occasional (0-1); Culture Indicated Urine Cult Not Indicated; RBC Urine 0-1/HPF (0-5/HPF); Squamous Epithelial Cell Urine 0-1 /HPF (0-5/HPF); Urine Volume 10mL (spun); WBC Urine 0-1/HPF (0-5/HPF)
[2024-04-22 12:06] LABS: Alanine Aminotransferase 26 IU/L (<50); Albumin 3.6 g/dL (3.5-5.0); Albumin Globulin Ratio 1.1 (1.0-2.8); Alkaline Phosphatase 104 U/L (38-126); Aspartate Aminotransferase 31 IU/L (17-59); BUN Creatinine Ratio 26.7 (6-22); Bilirubin Total 0.5 mg/dL (0.2-1.3); Blood Urea Nitrogen 20 mg/dL (9-20); Calcium 8.7 mg/dL (8.4-10.2); Carbon Dioxide 30 mmol/L (22-32); Chloride 103 mmol/L (98-107); Estimated Glomerular Filt Rate > 60 mL/min (>60); Globulin 3.3 g/dL (1.7-4.1); Glucose 76 mg/dL (80-110); HEMOLYSIS < 15 (0-50); Potassium 4.6 mmol/L (3.4-5.1); Sodium 135 mmol/L (137-145); Total Protein 6.9 g/dL (6.3-8.2)
[2024-04-22 12:09] LABS: NT-proBNP (BNP-Adult 18+) 280 pg/mL (<125)
== END ==
PROVIDERS: PCP Family Medicine; Referring Provider Family Medicine; Visit Provider Family Medicine
DX: N39.0 Urinary tract infection, site not specified (principal); E11.9 Type 2 diabetes mellitus without complications; I25.10 Atherosclerotic heart disease of native coronary artery without angina pectoris; I10 Essential (primary) hypertension
CPT/HCPCS: 36415; 80053; 81001; 83036; 83880

== ENCOUNTER 2024-05-27 06:46 | Emergency (ER) | payer MEDICARE, MEDICAID, SELFPAY ==
[2022-12-12 10:26] VITALS: BMI 33.9
[2024-05-27] VITALS (9 sets, daily range): BP systolic 141–170; BP diastolic 67–90; PULSE 78–89; RESP 16–19; TEMP 36.8; O2SAT 93–96; BMI 28.2
--- NOTE | 2024-05-27 06:53 | DI.RAD.S_ITS ---
PROCEDURE: XR SHOULDER LT MIN 2V INDICATIONS: fall, shoulder pain TECHNIQUE: 2 views of the shoulder were acquired. COMPARISON: [facility], , SHOULDER MINIMUM 2 VIEW LEFT, 03/26/2016, 17:44. FINDINGS: Bones: No acute fracture or dislocation. Surgical anchor screw noted in the humeral head. Arthritic changes noted with joint space narrowing and osteophyte formation along the inferior glenoid. Degenerative changes seen in the AC joint. Soft tissues: No suspicious soft tissue calcifications. IMPRESSION: Degenerative changes and postsurgical changes in the left shoulder. No acute bony injury demonstrated. Dictated by: David Olson M.D. on 05/27/2024 at 7:59 Approved by: David Olson M.D. on 05/27/2024 at 8:02
--- NOTE | 2024-05-27 07:41 | ED_ITS ---
HPI - Trauma General Chief Complaint: Extremity Injury, Upper Stated Complaint: Fall out of w/c Time Seen by Provider: 05/27/24 06:56 Source: patient Mode of arrival: EMS History of Present Illness HPI narrative: 68-year-old male presents for evaluation of left shoulder pain after falling from his wheelchair. He was using his wheelchair to use the restroom in the middle of the night when his wheelchair tipped over, and patient landed on his left side. He states that he hit his elbow and his left shoulder. He was adamant that he did not hit his head. He reports left shoulder pain. Took 2 of his home Percocet prior to arrival, but still complaining of pain. Related Data Home Medications Medication Instructions Recorded Confirmed amlodipine 10 mg tablet 5 mg PO DAILY 04/27/24 04/27/24 aspirin 81 mg chewable tablet 81 mg PO DAILY 04/27/24 04/27/24 citalopram 40 mg tablet 40 mg PO DAILY 04/27/24 04/27/24 clopidogrel 75 mg tablet mg PO 04/27/24 04/27/24 ezetimibe 10 mg tablet mg PO 04/27/24 04/27/24 gabapentin 300 mg capsule 300 mg PO BID 04/27/24 ibuprofen 600 mg tablet 600 mg PO Q8H PRN 04/27/24 04/27/24 insulin aspart U-100 100 unit/mL 5 unit SUBCUT .COMPLEX PRN 04/27/24 (3 mL) subcutaneous pen (Novolog FlexPen U-100 Insulin aspart) insulin glargine U-300 conc 300 60 unit SUBCUT BID 04/27/24 unit/mL (3 mL) subcutaneous pen isosorbide mononitrate 60 mg 60 mg PO DAILY 04/27/24 04/27/24 tablet,extended release 24 hr metoprolol succinate 25 mg 25 mg PO DAILY 04/27/24 04/27/24 tablet,extended release 24 hr nitroglycerin 0.4 mg sublingual 0.4 mg sublingual Q5M PRN 04/27/24 04/27/24 tablet Previous Rx's Medication Instructions Recorded blood-glucose meter #1 ea 01/11/21 Disabled Parking Permit #1 ea 02/15/21 lancets 33 gauge (BD Ultra Fine #100 ea 09/24/22 Lancets) pen needle, diabetic 31 gauge x #100 ea 09/24/22/ (Comfort EZ Pen Rugby) flash glucose scanning reader #1 ea 10/09/22 (FreeStyle Timmy 2 Pelican) albuterol sulfate 90 mcg/actuation 2 puff inhalation QID PRN 03/24/23 aerosol inhaler (Proventil HFA) shortness of breath #18 grams beclomethasone dipropionate 40 1 inh inhalation BID Shortness Of 12/11/23 mcg/actuation HFA breath activated Breath #10.6 grams aerosol nystatin 100,000 unit/gram topical 1 applic topical TID PRN Tinea 01/15/24 powder cruris #30 grams naproxen 500 mg tablet 500 mg PO BID PRN pain #40 tabs 01/26/24 terbinafine HCl 250 mg tablet 250 mg PO DAILY #14 tabs 01/26/24 atorvastatin 80 mg tablet 80 mg PO DAILY #90 tabs 03/22/24 blood sugar diagnostic (Blood #100 ea 03/22/24 Glucose Test strips) bupropion HCl 300 mg 24 hr tablet, 300 mg PO DAILY #90 tabs 03/22/24 extended release flash glucose sensor #1 ea 03/22/24 levothyroxine 125 mcg tablet 125 mcg PO DAILY #90 tabs 03/22/24 quetiapine 25 mg tablet 25 mg PO BEDTIME #90 tabs 03/22/24 semaglutide 0.25 mg or 0.5 mg (2 0.5 mg (0.736 mL) SUBCUT QWEEK #3 03/22/24 mg/3 mL) subcutaneous pen injector mL (Ozempic) omeprazole 20 mg capsule,delayed 20 mg PO DAILY #30 caps 04/20/24 release oxycodone 5 mg tablet 5 mg PO Q4-6H PRN Pain, Moderate 05/21/24 #60 tabs Allergies Allergy/AdvReac Type Severity Reaction Status Date / Time adhesive Allergy Mild REDNESS/ITC Verified 04/27/24 10:33 HINESS morphine AdvReac ITCHING Verified 04/27/24 10:33 Patient History Medical History BPH (benign prostatic hyperplasia) Osteoarthritis of left hip Skin sore Stress incontinence Borderline hyperlipidemia Hip pain Cellulitis Mental health assessment declined Steatosis Bilateral otitis externa Sleep apnea Otitis externa Hearing reduced Screening for malignant neoplasm of colon Type 2 diabetes mellitus History of recurrent TIAs Well adult exam Strain of muscle of right groin region (03/30/18) Chicken pox (1957) Measles (6) Mumps (9) Status post myocardial infarction Neuropathy Eczema Chronic cough Depression (2009) Obstructive sleep apnea Gout Shoulder pain Foot pain Chickenpox (7) Measles (6) Mumps (1958) Kidney disease (2009) GERD (gastroesophageal reflux disease) (2012) Hypothyroidism Hypertension Hyperlipidemia Diabetes (1994) Coronary artery disease (2006) COPD (chronic obstructive pulmonary disease) Surgical History Anesthesia History of heart artery stent (2010) History of heart artery stent (2006) Hx of shoulder surgery (2005) Family History Brother Age: 69 Diabetes mellitus Hyperlipidemia Mother Heart disease Hypertension Hyperlipidemia Diabetes mellitus Grandmother Diabetes mellitus Brother No problems noted. Sister Breast cancer Social History marital status: details: 3 years ago household members: none lives independently: Yes housing: apartment Smoking Status: Current every day smoker Tobacco: How many years used: 45 alcohol intake: current Smoking Status: Current every day smoker tobacco type: cigarettes alcohol intake frequency: 0-2 drinks per day Substance Use Type: marijuana Exam Initial Vital Signs Initial Vital Signs: Vital Signs Pulse Rate 83 05/27/24 06:49 Pulse Oximetry 95 05/27/24 06:49 Const: Awake, alert, no acute distress, frail, appears chronically unwel MSK: No deformity, generalized tenderness to palpation along left shoulder joint Skin: Warm, Dry, intact, no rashes Neuro: AO x2, CN II-XII grossly intact, moves all extremities Course Orders Ordered: ED Orders 05/27/24 06:53 XR shoulder LT min 2V Stat Discontinued Medications Acetaminophen (Acetaminophen 325 Mg Tablet) 975 mg PO NOW ONE Stop: 05/27/24 07:41 Last Admin: 05/27/24 07:55 Dose: 975 mg Documented By: [facility] Lidocaine (Lidocaine 5% Patch) 1 each TOP NOW ONE Stop: 05/27/24 07:41 Last Admin: 05/27/24 07:54 Dose: 1 each Documented By: BENITO Oxycodone HCl (Oxycodone Ir 5 Mg Tablet) 5 mg PO NOW ONE Stop: 05/27/24 07:41 Last Admin: 05/27/24 07:54 Dose: 5 mg Documented By: BENITO Vital Signs Vital signs: Vital Signs - 8 hr 05/27/24 06:49 05/27/24 06:50 05/27/24 06:50 Temperature Pulse Rate 83 84 Respiratory Rate Blood Pressure 162/87 H Pulse Oximetry 95 96 Oxygen Delivery Method 05/27/24 06:52 05/27/24 07:00 05/27/24 07:00 Temperature 98.2 F Pulse Rate 81 82 Respiratory Rate 16 Blood Pressure 162/87 H 170/90 H Pulse Oximetry 96 95 Oxygen Delivery Method Room Air 05/27/24 07:30 05/27/24 07:31 05/27/24 07:31 Temperature Pulse Rate 79 82 Respiratory Rate Blood Pressure 141/67 H Pulse Oximetry 94 96 Oxygen Delivery Method [facility] - Trauma Imaging Data Extremity x-ray #1: Radiologist's Impression: PROCEDURE: XR SHOULDER LT MIN 2V INDICATIONS: fall, shoulder pain TECHNIQUE: 2 views of the shoulder were acquired. COMPARISON: [facility], , SHOULDER MINIMUM 2 VIEW LEFT, 03/26/2016, 17:44. FINDINGS: Bones: No acute fracture or dislocation. Surgical anchor screw noted in the humeral head. Arthritic changes noted with joint space narrowing and osteophyte formation along the inferior glenoid. Degenerative changes seen in the AC joint. Soft tissues: No suspicious soft tissue calcifications. IMPRESSION: Degenerative changes and postsurgical changes in the left shoulder. No acute bony injury demonstrated. Dictated by: David Olson M.D. on 05/27/2024 at 7:59 Approved by: David Olson M.D. on 05/27/2024 at 8:02 [facility] Narrative Medical decision making narrative: Fall from wheelchair with shoulder pain. Patient requesting pain medications. X-ray imaging ordered. Patient adamant again that he did not hit his head. Differential includes humeral fracture, dislocation, contusion X-ray imaging negative for acute traumatic findings. Patient has chronic home narcotic pain medications at home that he may take for his symptoms. Discharge Plan Departure Patient Disposition: Home Clinical Impression: Acute shoulder pain Qualifiers: Laterality: left Qualified Code(s): M25.512 - Pain in left shoulder Fall from wheelchair Qualifiers: Encounter type: initial encounter Qualified Code(s): W05.0XXA - Fall from non- moving wheelchair, initial encounter Instructions: DI for Shoulder Pain Activity Restrictions/Additional Instructions: Your x-rays today did not show any fracture or dislocation. Continue to take your home pain medications as prescribed. You may also apply ice to your shoulder for comfort. If you continue to experience pain I recommend following up with Orthopedic surgery. Otherwise, I recommend following up with your primary care doctor. Prescriptions: No Action (DME) blood-glucose meter Kit See Rx Instructions .ROUTE .MEDSUPPLY Qty: 1 0RF Rx Instructions: Use to test blood glucose BID (DME) Disabled Parking Permit See Rx Instructions .ROUTE .MEDSUPPLY Qty: 1 0RF Rx Instructions: Valid for 5 years (DME) pen needle, diabetic [Comfort EZ Pen Rugby] 31 gauge x 5/16 needle See Dose Instructions .ROUTE .MEDSUPPLY Qty: 100 5RF Dose Instruction: As directed Rx Instructions: Use to inject insulin 5 times per day (DME) lancets [BD Ultra Fine Lancets] 33 gauge misc See Rx Instructions .ROUTE .MEDSUPPLY Qty: 100 6RF Rx Instructions: Use to test blood glucose twice daily (DME) FreeStyle Timmy 2 Pelican Misc See Rx Instructions .ROUTE .MEDSUPPLY Qty: 1 12RF Rx Instructions: As directed albuterol sulfate [Proventil HFA] 90 mcg/actuation HFA aerosol inhaler 2 puff INHALATION QID PRN (Reason: shortness of breath) Qty: 18 5RF nystatin 100,000 unit/gram powder 1 applic topical TID PRN (Reason: Tinea cruris) Qty: 30 1RF atorvastatin 80 mg tablet 80 mg PO DAILY Qty: 90 3RF (DME) Blood Glucose Test Strip See Rx Instructions .ROUTE .MEDSUPPLY Qty: 100 6RF Rx Instructions: Use to test blood glucose twice daily. bupropion HCl 300 mg tablet extended release 24 hr 300 mg PO DAILY Qty: 90 3RF (DME) flash glucose sensor Kit See Rx Instructions .Route Qty: 1 6RF Rx Instructions: Use to check blood sugars twice daily. levothyroxine 125 mcg tablet 125 mcg PO DAILY Qty: 90 0RF quetiapine 25 mg tablet 25 mg PO BEDTIME Qty: 90 3RF Ozempic 0.25 mg or 0.5 mg (2 mg/3 mL) pen injector 0.5 mg SUBCUT QWEEK Qty: 3 1RF Rx Instructions: start injecting 0.5 mg every week omeprazole 20 mg capsule,delayed release(DR/EC) 20 mg PO DAILY Qty: 30 3RF oxycodone 5 mg tablet 5 mg PO Q4-6H PRN (Reason: Pain, Moderate) Qty: 60 0RF Rx Instructions: Cervical Spondylolysis gabapentin 300 mg capsule 300 mg PO BID ezetimibe 10 mg tablet PO metoprolol succinate 25 mg tablet extended release 24 hr 25 mg PO DAILY amlodipine 10 mg tablet 5 mg PO DAILY aspirin 81 mg tablet,chewable 81 mg PO DAILY ibuprofen 600 mg tablet 600 mg PO Q8H PRN isosorbide mononitrate 60 mg tablet extended release 24 hr 60 mg PO DAILY clopidogrel 75 mg tablet PO citalopram 40 mg tablet 40 mg PO DAILY nitroglycerin 0.4 mg tablet, sublingual 0.4 mg sublingual Q5M PRN Rx Instructions: do not exceed 3 doses per episode Novolog FlexPen U-100 Insulin 100 unit/mL (3 mL) insulin pen 5 unit SUBCUT .COMPLEX PRN Rx Instructions: 5 units subcutaneously 5 units a.c. t.i.d. depending on carbohydrate content of meal PRN; insulin glargine U-300 conc 300 unit/mL (3 mL) insulin pen 60 unit SUBCUT BID Rx Instructions: 60 units as of 04/26 beclomethasone dipropionate 40 mcg/actuation HFA aerosol breath activated 1 inh Inhalation BID Qty: 10.6 5RF naproxen 500 mg tablet 500 mg PO BID PRN (Reason: pain) Qty: 40 0RF terbinafine HCl 250 mg tablet 250 mg PO DAILY Qty: 14 0RF Referrals: Gasper Rutherford DO [Primary Care Provider] - Stand Alone Forms: Patient Portal/API
[2024-05-27] MEDS: LIDOCAINE 5% PATCH 1 EACH TOP (07:54)
[2024-05-27] MEDS: OXYCODONE IR 5 MG TABLET PO (07:54)
[2024-05-27] MEDS: ACETAMINOPHEN 325 MG TABLET 975 MG PO (07:55)
--- NOTE | 2024-05-27 08:01 | PC.NURSE ---
Baseline left shoulder pain reports more pain and difficulty with mobility since fall. Small red abrasion noted to left shoulder.
== END 2024-05-27 10:25 | disposition home or self-care (01) ==
PROVIDERS: Emergency Provider Emergency Medicine; PCP Family Medicine
DX: M25.512 Pain in left shoulder (principal); W05.0XXA Fall from non-moving wheelchair, initial encounter; Z79.899 Other long term (current) drug therapy
CPT/HCPCS: 73030; 99283; 99284

== ENCOUNTER → 2024-07-07 14:23 | Outpatient (CLI) | payer MEDICARE, MEDICAID, SELFPAY ==
[2022-12-12 10:26] VITALS: BMI 33.9
--- NOTE | 2024-07-07 14:25 | DI.RAD.S_ITS ---
PROCEDURE: XR CHEST 2V INDICATIONS: eval chronic cough TECHNIQUE: 2 views of the chest were acquired. COMPARISON: [facility], CR, XR CHEST 1V, 03/31/2024, 18:29. FINDINGS: Surgical changes and devices: None. Lungs and pleura: Chronic interstitial changes appearing minimally more prominent when compared to prior exam. Mediastinum: Mediastinal contours are normal. Heart size is normal. Bones and chest wall: No suspicious bony abnormalities. Soft tissues appear unremarkable. IMPRESSION: Chronic interstitial changes slightly more prominent. This may represent superimposed areas of developing pneumonia/atelectasis or potentially even edema. Dictated by: Viri Jacobsen M.D. on 07/08/2024 at 11:09 Approved by: Viri Jacobsen M.D. on 07/08/2024 at 11:10
== END ==
PROVIDERS: PCP Family Medicine; Referring Provider Family Medicine; Visit Provider Family Medicine
DX: R05.3 Chronic cough (principal)
CPT/HCPCS: 71046

== ENCOUNTER 2024-09-08 07:49 | Emergency (ER) | payer MEDICARE, MEDICAID, SELFPAY ==
[2022-12-12 10:26] VITALS: BMI 33.9
[2024-09-08] VITALS (8 sets, daily range): BP systolic 110–119; BP diastolic 57–74; PULSE 76–80; RESP 12–23; TEMP 36.8; O2SAT 92–95; BMI 27.4
--- NOTE | 2024-09-08 08:00 | ED.FALL ---
HPI - Fall General Chief Complaint: Trauma Stated Complaint: Fall on thinners Time Seen by Provider: 09/08/24 07:59 History of Present Illness HPI Narrative: Patient is a 69-year-old male history of hypertension hyperlipidemia depression type 2 diabetes alcohol use disorder presenting today with fall while taking Plavix. He reports that he was in his wheelchair leaning forward when he fell out hitting the back of his head. No loss of consciousness no nausea vomiting numbness tingling or weakness. He denies any chest pain or palpitations. EMS reports his blood pressure was low when they arrived with a systolic in the 80s. He is received 500 cc bolus and blood pressure is back to normal. Related Data Home Medications Medication Instructions Recorded Confirmed aspirin 81 mg chewable tablet 81 mg PO DAILY 04/27/24 08/25/24 citalopram 40 mg tablet 40 mg PO DAILY 04/27/24 08/25/24 ezetimibe 10 mg tablet mg PO 04/27/24 08/25/24 gabapentin 300 mg capsule 300 mg PO BID 04/27/24 08/25/24 ibuprofen 600 mg tablet 600 mg PO Q8H PRN 04/27/24 08/25/24 insulin aspart U-100 100 unit/mL 5 unit SUBCUT .COMPLEX PRN 04/27/24 08/25/24 (3 mL) subcutaneous pen (Novolog FlexPen U-100 Insulin aspart) insulin glargine U-300 conc 300 60 unit SUBCUT BID 04/27/24 08/25/24 unit/mL (3 mL) subcutaneous pen metoprolol succinate 25 mg 25 mg PO DAILY 04/27/24 08/25/24 tablet,extended release 24 hr nitroglycerin 0.4 mg sublingual 0.4 mg sublingual Q5M PRN 04/27/24 08/25/24 tablet Previous Rx's Medication Instructions Recorded blood-glucose meter #1 ea 01/11/21 Disabled Parking Permit #1 ea 02/15/21 lancets 33 gauge (BD Ultra Fine #100 ea 09/24/22 Lancets) pen needle, diabetic 31 gauge x #100 ea 09/24/2203/17 (Comfort EZ Pen [place]) beclomethasone dipropionate 40 1 inh inhalation BID Shortness Of 12/11/23 mcg/actuation HFA breath activated Breath #10.6 grams aerosol nystatin 100,000 unit/gram topical 1 applic topical TID PRN Tinea 01/15/24 powder cruris #30 grams naproxen 500 mg tablet 500 mg PO BID PRN pain #40 tabs 01/26/24 atorvastatin 80 mg tablet 80 mg PO DAILY #90 tabs 03/22/24 blood sugar diagnostic (Blood #100 ea 03/22/24 Glucose Test strips) bupropion HCl 300 mg 24 hr tablet, 300 mg PO DAILY #90 tabs 03/22/24 extended release levothyroxine 125 mcg tablet 125 mcg PO DAILY #90 tabs 03/22/24 quetiapine 25 mg tablet 25 mg PO BEDTIME #90 tabs 03/22/24 omeprazole 20 mg capsule,delayed 20 mg PO DAILY #30 caps 04/20/24 release flash glucose scanning reader #1 ea 06/20/24 (FreeStyle Timmy 2 Elizabeth) clopidogrel 75 mg tablet 75 mg PO DAILY #90 tabs 06/23/24 semaglutide 0.25 mg or 0.5 mg (2 0.5 mg (0.736 mL) SUBCUT QWEEK #3 06/23/24 mg/3 mL) subcutaneous pen injector mL ([employer]) nicotine 7 mg/24 hr daily 2 patch transdermal Q24H nicotine 06/28/24 transdermal patch cessation #14 ea albuterol sulfate 90 mcg/actuation 2 puff inhalation QID PRN 06/30/24 aerosol inhaler (Proventil HFA) shortness of breath #18 grams amlodipine 5 mg tablet 5 mg PO DAILY #30 tabs 07/12/24 isosorbide mononitrate 60 mg 60 mg PO DAILY #30 tabs 07/12/24 tablet,extended release 24 hr flash glucose sensor #1 ea 07/14/24 flash glucose sensor (FreeStyle #1 ea 07/14/24 Timmy 2 Sensor kit) oxycodone 5 mg tablet 5 mg PO TID PRN Pain, Moderate #90 08/24/24 tabs Allergies Allergy/AdvReac Type Severity Reaction Status Date / Time adhesive Allergy Mild REDNESS/ITC Verified 09/08/24 08:06 HINESS morphine AdvReac ITCHING Verified 09/08/24 08:06 Patient History Medical History Major depressive disorder, recurrent, moderate Alcohol dependence, uncomplicated Type 2 diabetes mellitus with diabetic polyneuropathy Tobacco use disorder Adhesive capsulitis Left shoulder pain BPH (benign prostatic hyperplasia) Osteoarthritis of left hip Skin sore Stress incontinence Borderline hyperlipidemia Hip pain Cellulitis Mental health assessment declined Steatosis Bilateral otitis externa Sleep apnea Otitis externa Hearing reduced Screening for malignant neoplasm of colon Type 2 diabetes mellitus History of recurrent TIAs Well adult exam Strain of muscle of right groin region (03/30/18) Chicken pox (1956) Measles (1955) Mumps (1958) Status post myocardial infarction Neuropathy Eczema Chronic cough Depression (2009) Obstructive sleep apnea Gout Shoulder pain Foot pain Chickenpox (1956) Measles (6) Mumps (1958) Kidney disease (2009) GERD (gastroesophageal reflux disease) (2012) Hypothyroidism Hypertension Hyperlipidemia Diabetes (1994) Coronary artery disease (2006) COPD (chronic obstructive pulmonary disease) Surgical History History of repair of left rotator cuff Anesthesia History of heart artery stent (2010) History of heart artery stent (2006) Hx of shoulder surgery (2005) Family History Brother Age: 70 Diabetes mellitus Hyperlipidemia Mother Heart disease Hypertension Hyperlipidemia Diabetes mellitus Grandmother Diabetes mellitus Brother No problems noted. Sister Breast cancer Social History marital status: details: 3 years ago household members: none lives independently: Yes housing: apartment Smoking Status: Former smoker Tobacco: How many years used: 45 alcohol intake: current Smoking Status: Former smoker tobacco type: cigarettes alcohol intake frequency: 0-2 drinks per day Substance Use Type: marijuana Exam Initial Vital Signs Initial Vital Signs: Vital Signs Temperature 98.2 F 09/08/24 07:45 Pulse Rate 78 09/08/24 07:45 Respiratory Rate 17 09/08/24 07:45 Blood Pressure 119/59 L 09/08/24 07:45 Pulse Oximetry 95 09/08/24 07:45 Oxygen Delivery Method Room Air 09/08/24 07:45 GENERAL: Alert 69-year-old male no acute distress HEENT: Head atraumatic,EOMI, pupils reactive, face symmetric, moist mucous membranes NECK: No vertebral tenderness no step-off CARDIOVASCULAR: Regular rate and rhythm without murmurs, rubs or gallops. RESPIRATORY: Breath sounds equal bilaterally, no wheezes rales or rhonchi. ABDOMEN: Soft, nontender. Normoactive bowel sounds all 4 quadrants. No guarding or rebound. : No CVA tenderness EXTREMITIES: Normal range of motion, no clubbing or edema. Neurovascularly intact NEUROLOGICAL: Alert and oriented x4.Normal gait and speech. Cranial nerves II through XII grossly intact. 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 Course Orders Ordered: ED Orders 09/08/24 08:11 CT head/brain wo con Stat EKG-12 Lead Stat 09/08/24 08:30 CBC Auto Diff [Complete Blood Count AUTO DIFF] Stat CMP [Comprehensive Metabolic Panel] Stat Troponin & CK Cardiac Panel Stat Vital Signs Vital signs: Vital Signs - 8 hr 09/08/24 07:45 09/08/24 07:52 09/08/24 07:52 Temperature 98.2 F Pulse Rate 78 78 Respiratory Rate 17 Blood Pressure 119/59 L 119/59 L Pulse Oximetry 95 93 Oxygen Delivery Method Room Air 09/08/24 08:00 09/08/24 08:00 09/08/24 08:30 Temperature Pulse Rate 76 76 Respiratory Rate 12 17 Blood Pressure 110/59 L Pulse Oximetry 93 95 Oxygen Delivery Method Room Air 09/08/24 08:30 Temperature Pulse Rate Respiratory Rate Blood Pressure 115/58 L Pulse Oximetry Oxygen Delivery Method MDM - Fall Lab Data 09/08/24 08:30 09/08/24 08:30 Labs: Lab Results 09/08/24 Range/Units 08:30 WBC 7.9 (4.5-11.0) X10^3/uL RBC 3.72 L (4.5-5.9) X10^6/uL Hgb 11.3 L (13.5-17.5) g/dL Hct 33.0 L (41-53) % MCV 88.6 (80-100) fL MCH 30.3 (26-34) PG MCHC 34.1 (30-36) % RDW 15.2 H (11.6-14.8) % Plt Count 231 (150-400) X10^3/uL Neut % (Auto) 73.1 (50-75) % Lymph % (Auto) 14.9 L (25-40) % [place] % (Auto) 7.3 (3-14) % Eos % (Auto) 4.5 H (2-4) % Baso % (Auto) 0.2 (0-2) % Neut # (Auto) 5800 (4358-9056) /uL Lymph # (Auto) 1200 (0739-7208) /uL [place] # (Auto) 600 (0-900) /uL Eos # (Auto) 400 (0-450) /uL Baso # (Auto) 0 (0-100) /uL Sodium 137 (137-145) mmol/L Potassium 4.3 (3.4-5.1) mmol/L Chloride 108 H (98-107) mmol/L Carbon Dioxide 22 (22-32) mmol/L BUN 23 H (9-20) mg/dL Creatinine 1.45 H (0.66-1.25) mg/dL Estimated GFR 52 L (>60) mL/min BUN/Creatinine Ratio 15.9 (6-22) Glucose 133 H (80-110) mg/dL Calcium 8.5 (8.4-10.2) mg/dL Total Bilirubin 0.5 (0.2-1.3) mg/dL AST 30 (17-59) IU/L ALT 23 (<50) IU/L Alkaline Phosphatase 92 (38-126) U/L Total Creatine Kinase 329 H (55-170) U/L Troponin I < 0.012 (0.01-0.034) ng/mL Total Protein 7.2 (6.3-8.2) g/dL Albumin 3.6 (3.5-5.0) g/dL Globulin 3.6 (1.7-4.1) g/dL Albumin/Globulin Ratio 1.0 (1.0-2.8) Imaging Data CT scan - head: Radiologist's Impression: PROCEDURE: CT HEAD/BRAIN WO CON INDICATIONS: fall TECHNIQUE: Noncontrast 4.5 mm thick angled axial sections acquired from the foramen magnum to the vertex, with coronal and sagittal reformats. For radiation dose reduction, the following was used: automated exposure control, adjustment of mA and/or kV according to patient size. COMPARISON: [facility], CT, CT HEAD/BRAIN WO CON, 03/31/2024, 17:47. FINDINGS: Image quality: Diagnostic. CSF spaces: Basal cisterns are patent. No extra-axial fluid collections. Ventricles are normal in size and shape. Brain: No midline shift. No intracranial masses or hemorrhage. [place]-white matter interface is normal. Skull and face: Calvarium and visualized facial bones are intact, without suspicious lesions. Sinuses: Visualized sinuses and mastoids are clear. IMPRESSION: No acute intracranial pathology. Dictated by: Pasha Meng M.D. on 09/08/2024 at 9:08 ECG Data Attestation: I personally reviewed and interpreted this ECG as follows: Prior ECG tracings: available for review Interpretation: Normal sinus rhythm rate 76 TX interval 232 QRS 102 QTC 452 no ischemic changes MDM Narrative Medical decision making narrative: [facility] CC: Fall out of wheelchair Complicating co-morbidities: Coronary artery disease type 2 diabetes alcohol use disorder (sober now) Medical records reviewed: Previous PCP visit August 25 2024 Differential considered: Syncope acute coronary syndrome electrolyte abnormality Exam documented above, pertinent findings include: Patient overall appears well no evidence of significant trauma neck has no vertebral tenderness Lab Test results independently reviewed as above. Pertinent findings: Blood work does show ISA creatinine 1.45 he was previously 0.7 eye in April of 2024 Troponin negative CBC does not show any leukocytosis or anemia Independently reviewed EKG as above no ischemic changes similar to prior Imaging studies independently reviewed: Head CT does not show any intracranial hemorrhage or skull fracture Consultations: none Treatments: P.o. fluids Re-evaluations: Blood pressure has remained Discussion: Patient 69-year-old male presenting today with fall out of wheelchair and possibly some dizziness. He was found to have mild hypotension which resolved quickly with IV fluids. He does have ISA with a creatinine 1.45. He has given a full L of fluids from the EMS bag. No additional fluid was given. He is drinking fluids. At this time recommend p.o. fluids he is overall feeling better. Discharge Plan Departure Patient Disposition: Home Clinical Impression: ISA (acute kidney injury) Instructions: Dehydration Activity Restrictions/Additional Instructions: *You have been diagnosed with dehydrated *What to do: At this time please go home and drink Gatorade or Gatorade like substance. You are mildly dehydrated. I do recommend that you have repeat blood work to check on your kidney function next week with your primary care provider *Continue to take medications as directed *Follow up with your primary care provider in 2-3 days or call [phone] *Return to ER if you should have recurrent episode of falling down, dizziness lightheadedness chest pain or any new, worsening or concerning symptoms Prescriptions: No Action (DME) blood-glucose meter Kit See Rx Instructions .ROUTE .MEDSUPPLY Qty: 1 0RF Rx Instructions: Use to test blood glucose BID (DME) Disabled Parking Permit See Rx Instructions .ROUTE .MEDSUPPLY Qty: 1 0RF Rx Instructions: Valid for 5 years (DME) pen needle, diabetic [Comfort EZ Pen [place]] 31 gauge x 5/16 needle See Dose Instructions .ROUTE .MEDSUPPLY Qty: 100 5RF Dose Instruction: As directed Rx Instructions: Use to inject insulin 5 times per day (DME) lancets [BD Ultra Fine Lancets] 33 gauge misc See Rx Instructions .ROUTE .MEDSUPPLY Qty: 100 6RF Rx Instructions: Use to test blood glucose twice daily nystatin 100,000 unit/gram powder 1 applic topical TID PRN (Reason: Tinea cruris) Qty: 30 1RF atorvastatin 80 mg tablet 80 mg PO DAILY Qty: 90 3RF (DME) Blood Glucose Test Strip See Rx Instructions .ROUTE .MEDSUPPLY Qty: 100 6RF Rx Instructions: Use to test blood glucose twice daily. bupropion HCl 300 mg tablet extended release 24 hr 300 mg PO DAILY Qty: 90 3RF levothyroxine 125 mcg tablet 125 mcg PO DAILY Qty: 90 0RF quetiapine 25 mg tablet 25 mg PO BEDTIME Qty: 90 3RF omeprazole 20 mg capsule,delayed release(DR/EC) 20 mg PO DAILY Qty: 30 3RF (DME) FreeStyle Timmy 2 Elizabeth Misc See Rx Instructions .ROUTE .MEDSUPPLY Qty: 1 12RF Rx Instructions: As directed Ozempic 0.25 mg or 0.5 mg (2 mg/3 mL) pen injector 0.5 mg SUBCUT QWEEK Qty: 3 3RF Rx Instructions: start injecting 0.5 mg every week clopidogrel 75 mg tablet 75 mg PO DAILY Qty: 90 1RF nicotine 7 mg/24 hr patch 24 hour 2 patch transdermal Q24H Qty: 14 6RF Rx Instructions: if insurance won't approve 2 patches per day ok to order a 1 patch per day albuterol sulfate [Proventil HFA] 90 mcg/actuation HFA aerosol inhaler 2 puff INHALATION QID PRN (Reason: shortness of breath) Qty: 18 5RF isosorbide mononitrate 60 mg tablet extended release 24 hr 60 mg PO DAILY Qty: 30 2RF amlodipine 5 mg tablet 5 mg PO DAILY Qty: 30 2RF (DME) FreeStyle Timmy 2 Sensor Kit See Rx Instructions .Route Qty: 1 4RF Rx Instructions: use to continuously monitor blood sugars (DME) flash glucose sensor Kit See Rx Instructions .Route Qty: 1 6RF Rx Instructions: Use to check blood sugars twice daily. oxycodone 5 mg tablet 5 mg PO TID PRN (Reason: Pain, Moderate) Qty: 90 0RF Rx Instructions: Cervical Spondylolysis M72.02 gabapentin 300 mg capsule 300 mg PO BID ezetimibe 10 mg tablet PO metoprolol succinate 25 mg tablet extended release 24 hr 25 mg PO DAILY aspirin 81 mg tablet,chewable 81 mg PO DAILY ibuprofen 600 mg tablet 600 mg PO Q8H PRN citalopram 40 mg tablet 40 mg PO DAILY nitroglycerin 0.4 mg tablet, sublingual 0.4 mg sublingual Q5M PRN Rx Instructions: do not exceed 3 doses per episode Novolog FlexPen U-100 Insulin 100 unit/mL (3 mL) insulin pen 5 unit SUBCUT .COMPLEX PRN Rx Instructions: 5 units subcutaneously 5 units a.c. t.i.d. depending on carbohydrate content of meal PRN; insulin glargine U-300 conc 300 unit/mL (3 mL) insulin pen 60 unit SUBCUT BID Rx Instructions: 60 units as of 04/26 beclomethasone dipropionate 40 mcg/actuation HFA aerosol breath activated 1 inh Inhalation BID Qty: 10.6 5RF naproxen 500 mg tablet 500 mg PO BID PRN (Reason: pain) Qty: 40 0RF Referrals: Gasper Rutherford DO [Primary Care Provider] - Stand Alone Forms: Patient Portal/API/Survey
--- NOTE | 2024-09-08 08:11 | DI.CT.S_ITS ---
PROCEDURE: CT HEAD/BRAIN WO CON INDICATIONS: fall TECHNIQUE: Noncontrast 4.5 mm thick angled axial sections acquired from the foramen magnum to the vertex, with coronal and sagittal reformats. For radiation dose reduction, the following was used: automated exposure control, adjustment of mA and/or kV according to patient size. COMPARISON: [facility], CT, CT HEAD/BRAIN WO CON, 03/31/2024, 17:47. FINDINGS: Image quality: Diagnostic. CSF spaces: Basal cisterns are patent. No extra-axial fluid collections. Ventricles are normal in size and shape. Brain: No midline shift. No intracranial masses or hemorrhage. [place]-white matter interface is normal. Skull and face: Calvarium and visualized facial bones are intact, without suspicious lesions. Sinuses: Visualized sinuses and mastoids are clear. IMPRESSION: No acute intracranial pathology. Dictated by: Pasha Meng M.D. on 09/08/2024 at 9:08 Approved by: Pasha Meng M.D. on 09/08/2024 at 9:14
--- NOTE | 2024-09-08 08:31 | EKG_ITS ---
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
[2024-09-08 08:40] LABS: Add Manual Diff / Slide Review NO; Basophils Absolute Auto 0 /uL (0-100); Basophils Percent Auto 0.2 % (0-2); Eosinophils Absolute Auto 400 /uL (0-450); Eosinophils Percent Auto 4.5 % (2-4); Hemoglobin 11.3 g/dL (13.5-17.5); Lymphocytes Absolute Auto 1200 /uL (1100-4500); Lymphocytes Percent Auto 14.9 % (25-40); Mean Corpuscular HGB Conc 34.1 % (30-36); Mean Corpuscular Hemoglobin 30.3 PG (26-34); Mean Corpuscular Volume 88.6 fL (80-100); Monocytes Absolute Auto 600 /uL (0-900); Monocytes Percent Auto 7.3 % (3-14); Neutrophils Absolute Auto 5800 /uL (1500-7000); Neutrophils Percent Auto 73.1 % (50-75); Platelet Count 231 X10^3/uL (150-400); Red Blood Cell Count 3.72 X10^6/uL (4.5-5.9); Red Cell Distribution Width 15.2 % (11.6-14.8); White Blood Cell Count 7.9 X10^3/uL (4.5-11.0)
[2024-09-08 08:51] LABS: Alanine Aminotransferase 23 IU/L (<50); Albumin 3.6 g/dL (3.5-5.0); Alkaline Phosphatase 92 U/L (38-126); Aspartate Aminotransferase 30 IU/L (17-59); BUN Creatinine Ratio 15.9 (6-22); Bilirubin Total 0.5 mg/dL (0.2-1.3); Blood Urea Nitrogen 23 mg/dL (9-20); Calcium 8.5 mg/dL (8.4-10.2); Carbon Dioxide 22 mmol/L (22-32); Chloride 108 mmol/L (98-107); Creatine Kinase 329 U/L (55-170); Estimated Glomerular Filt Rate 52 mL/min (>60); Globulin 3.6 g/dL (1.7-4.1); Glucose 133 mg/dL (80-110); HEMOLYSIS < 15 (0-50); Potassium 4.3 mmol/L (3.4-5.1); Sodium 137 mmol/L (137-145); Total Protein 7.2 g/dL (6.3-8.2)
[2024-09-08 09:03] LABS: Troponin I < 0.012 ng/mL (0.01-0.034)
== END 2024-09-08 10:15 | disposition home or self-care (01) ==
PROVIDERS: Emergency Provider Emergency Medicine; PCP Family Medicine
DX: N17.9 Acute kidney failure, unspecified (principal); E86.0 Dehydration; I44.0 Atrioventricular block, first degree; S09.90XA Unspecified injury of head, initial encounter; W05.0XXA Fall from non-moving wheelchair, initial encounter; Z79.01 Long term (current) use of anticoagulants
CPT/HCPCS: 70450; 80053; 82550; 84484; 85025; 93005; 93010; 99283; 99284

== ENCOUNTER 2024-10-10 03:59 | Emergency (ER) | payer MEDICARE, MEDICAID, SELFPAY ==
[2022-12-12 10:26] VITALS: BMI 33.9
[2024-10-10] VITALS (10 sets, daily range): BP systolic 104–134; BP diastolic 51–74; PULSE 72–79; RESP 16; TEMP 37.1; O2SAT 93–96; BMI 27.4
--- NOTE | 2024-10-10 04:02 | ED_ITS ---
HPI - Abdominal Pain General Chief Complaint: Abdominal Pain Stated Complaint: Abd Pain Time Seen by Provider: 10/10/24 03:59 History of Present Illness HPI narrative: 69-year-old male with history of insulin-dependent diabetes, hypertension, Parkinson's disease, Lewy body dementia, hypothyroidism, chronic pain on oxycodone presents by EMS from home for 4 days of lower abdominal pain and 2 days of constipation. Patient states that he's eating and drinking normally. Denies nausea or vomiting. Related Data Home Medications Medication Instructions Recorded Confirmed aspirin 81 mg chewable tablet 81 mg PO DAILY 04/27/24 08/25/24 citalopram 40 mg tablet 40 mg PO DAILY 04/27/24 08/25/24 ezetimibe 10 mg tablet mg PO 04/27/24 08/25/24 gabapentin 300 mg capsule 300 mg PO BID 04/27/24 08/25/24 ibuprofen 600 mg tablet 600 mg PO Q8H PRN 04/27/24 08/25/24 insulin aspart U-100 100 unit/mL 5 unit SUBCUT .COMPLEX PRN 04/27/24 08/25/24 (3 mL) subcutaneous pen (Novolog FlexPen U-100 Insulin aspart) insulin glargine U-300 conc 300 60 unit SUBCUT BID 04/27/24 08/25/24 unit/mL (3 mL) subcutaneous pen metoprolol succinate 25 mg 25 mg PO DAILY 04/27/24 08/25/24 tablet,extended release 24 hr nitroglycerin 0.4 mg sublingual 0.4 mg sublingual Q5M PRN 04/27/24 08/25/24 tablet Previous Rx's Medication Instructions Recorded blood-glucose meter #1 ea 01/11/21 Disabled Parking Permit #1 ea 02/15/21 lancets 33 gauge (BD Ultra Fine #100 ea 09/24/22 Lancets) pen needle, diabetic 31 gauge x #100 ea 09/24/2203/17 (Comfort EZ Pen [place]) beclomethasone dipropionate 40 1 inh inhalation BID Shortness Of 12/11/23 mcg/actuation HFA breath activated Breath #10.6 grams aerosol nystatin 100,000 unit/gram topical 1 applic topical TID PRN Tinea 01/15/24 powder cruris #30 grams naproxen 500 mg tablet 500 mg PO BID PRN pain #40 tabs 01/26/24 atorvastatin 80 mg tablet 80 mg PO DAILY #90 tabs 03/22/24 blood sugar diagnostic (Blood #100 ea 03/22/24 Glucose Test strips) bupropion HCl 300 mg 24 hr tablet, 300 mg PO DAILY #90 tabs 03/22/24 extended release levothyroxine 125 mcg tablet 125 mcg PO DAILY #90 tabs 03/22/24 quetiapine 25 mg tablet 25 mg PO BEDTIME #90 tabs 03/22/24 omeprazole 20 mg capsule,delayed 20 mg PO DAILY #30 caps 04/20/24 release flash glucose scanning reader #1 ea 06/20/24 (FreeStyle Timmy 2 [place]) clopidogrel 75 mg tablet 75 mg PO DAILY #90 tabs 06/23/24 nicotine 7 mg/24 hr daily 2 patch transdermal Q24H nicotine 06/28/24 transdermal patch cessation #14 ea albuterol sulfate 90 mcg/actuation 2 puff inhalation QID PRN 06/30/24 aerosol inhaler (Proventil HFA) shortness of breath #18 grams amlodipine 5 mg tablet 5 mg PO DAILY #30 tabs 07/12/24 isosorbide mononitrate 60 mg 60 mg PO DAILY #30 tabs 07/12/24 tablet,extended release 24 hr flash glucose sensor #1 ea 07/14/24 flash glucose sensor (FreeStyle #1 ea 07/14/24 Timmy 2 Sensor kit) oxycodone 5 mg tablet 5 mg PO TID PRN Pain, Moderate #90 09/21/24 tabs semaglutide 0.25 mg or 0.5 mg (2 0.5 mg (0.736 mL) SUBCUT QWEEK #3 10/07/24 mg/3 mL) subcutaneous pen injector mL (Ozempic) amoxicillin 875 mg-potassium 1 tab PO Q12H #20 tabs 10/10/24 clavulanate 125 mg tablet Allergies Allergy/AdvReac Type Severity Reaction Status Date / Time adhesive Allergy Mild REDNESS/ITC Verified 09/08/24 08:06 HINESS morphine AdvReac ITCHING Verified 09/08/24 08:06 Patient History Medical History Major depressive disorder, recurrent, moderate Alcohol dependence, uncomplicated Type 2 diabetes mellitus with diabetic polyneuropathy Tobacco use disorder Adhesive capsulitis Left shoulder pain BPH (benign prostatic hyperplasia) Osteoarthritis of left hip Skin sore Stress incontinence Borderline hyperlipidemia Hip pain Cellulitis Mental health assessment declined Steatosis Bilateral otitis externa Sleep apnea Otitis externa Hearing reduced Screening for malignant neoplasm of colon Type 2 diabetes mellitus History of recurrent TIAs Well adult exam Strain of muscle of right groin region (03/30/18) Chicken pox (7) Measles (1955) Mumps (1958) Status post myocardial infarction Neuropathy Eczema Chronic cough Depression (2008) Obstructive sleep apnea Gout Shoulder pain Foot pain Chickenpox (1956) Measles (6) Mumps (1958) Kidney disease (2009) GERD (gastroesophageal reflux disease) (2012) Hypothyroidism Hypertension Hyperlipidemia Diabetes (1994) Coronary artery disease (2006) COPD (chronic obstructive pulmonary disease) Surgical History History of repair of left rotator cuff Anesthesia History of heart artery stent (2010) History of heart artery stent (2006) Hx of shoulder surgery (2005) Family History Brother Age: 70 Diabetes mellitus Hyperlipidemia Mother Heart disease Hypertension Hyperlipidemia Diabetes mellitus Grandmother Diabetes mellitus Brother No problems noted. Sister Breast cancer Social History marital status: details: 3 years ago household members: none lives independently: Yes housing: apartment Smoking Status: Current every day smoker Tobacco: How many years used: 45 alcohol intake: current Smoking Status: Former smoker tobacco type: cigarettes alcohol intake frequency: 0-2 drinks per day Exam Initial Vital Signs Initial Vital Signs: Vital Signs Pulse Rate 77 10/10/24 04:02 Pulse Oximetry 95 10/10/24 04:02 Const: Awake, alert, no acute distress, frail appearing Cardiac: regular rate, regular rhythm RESP: unlabored, clear bilaterally, no wheezing GI: Soft, generalized lower quadrant tenderness to deep palpation without rebound or guarding Skin: Warm, Dry, intact, no rashes Neuro: AO x2, CN II-XII grossly intact, moves all extremities Course Orders Ordered: ED Orders 10/10/24 04:05 CT abdomen pelvis w con Stat CBC Auto Diff [Complete Blood Count AUTO DIFF] Stat CMP [Comprehensive Metabolic Panel] Stat Lipase Stat Vital Signs Vital signs: Vital Signs - 8 hr 10/10/24 04:04 Temperature 98.7 F Pulse Rate 79 Respiratory Rate 16 Blood Pressure 104/51 L Pulse Oximetry 95 Oxygen Delivery Method Room Air MDM - Abdominal Pain Lab Data 10/10/24 04:05 10/10/24 04:05 Labs: Lab Results 10/10/24 Range/Units 04:05 WBC 10.5 (4.5-11.0) X10^3/uL RBC 3.99 L (4.5-5.9) X10^6/uL Hgb 12.0 L (13.5-17.5) g/dL Hct 35.0 L (41-53) % MCV 87.7 (80-100) fL MCH 30.1 (26-34) PG MCHC 34.3 (30-36) % RDW 15.0 H (11.6-14.8) % Plt Count 258 (150-400) X10^3/uL Neut % (Auto) 71.6 (50-75) % Lymph % (Auto) 18.2 L (25-40) % [place] % (Auto) 6.7 (3-14) % Eos % (Auto) 2.9 (2-4) % Baso % (Auto) 0.6 (0-2) % Neut # (Auto) 7500 H (7852-9108) /uL Lymph # (Auto) 1900 (9016-3274) /uL [place] # (Auto) 700 (0-900) /uL Eos # (Auto) 300 (0-450) /uL Baso # (Auto) 100 (0-100) /uL Sodium 134 L (137-145) mmol/L Potassium 4.0 (3.4-5.1) mmol/L Chloride 103 (98-107) mmol/L Carbon Dioxide 24 (22-32) mmol/L BUN 18 (9-20) mg/dL Creatinine 0.84 (0.66-1.25) mg/dL Estimated GFR > 60 (>60) mL/min BUN/Creatinine Ratio 21.4 (6-22) Glucose 170 H (80-110) mg/dL Calcium 8.9 (8.4-10.2) mg/dL Total Bilirubin 0.7 (0.2-1.3) mg/dL AST 36 (17-59) IU/L ALT 29 (<50) IU/L Alkaline Phosphatase 93 (38-126) U/L Total Protein 7.3 (6.3-8.2) g/dL Albumin 3.8 (3.5-5.0) g/dL Globulin 3.5 (1.7-4.1) g/dL Albumin/Globulin Ratio 1.1 (1.0-2.8) Lipase 258 (23-300) U/L Imaging Data CT scan - abdomen/pelvis: Radiologist's Impression: PROCEDURE: CT ABDOMEN PELVIS W CON INDICATIONS: LOWER ABD PAIN X 4 DAYS TECHNIQUE: After the administration of intravenous contrast, axial sections acquired from the lung bases to the pubic symphysis. Coronal and sagittal reformats were performed. For radiation dose reduction, the following was used: automated exposure control, adjustment of mA and/or kV according to patient size. COMPARISON: [facility], CT, CT ABDOMEN PELVIS W CON, 03/13/2024, 2:35. FINDINGS: Image quality: Diagnostic Lower chest: Basal reticular changes with some honeycombing in the middle lobe and lingula, similar to prior, likely representing interstitial lung disease partially visualized. There is traction bronchiectasis. No pleural effusions. Coronary calcifications. Liver: Unremarkable Gallbladder and biliary system: Unremarkable, nondilated Pancreas: No ductal dilation Spleen: Nonenlarged Adrenals: No discrete nodules Kidneys: No solid mass. No hydronephrosis. Vessels and lymph nodes: The main portal vein is patent. No abdominal aortic aneurysm. No pathologic lymph nodes by size criteria. There are atherosclerotic calcifications. Bowel and peritoneum: Diffuse colonic diverticulosis, with wall thickening of the sigmoid colon. Mild surrounding edematous fat stranding. Overall [id number] fecal loading. The appendix is nondilated. No small bowel obstruction. No pathologic ascites drainable abscess. Body wall: Small fat containing inguinal hernias. Similar subcutaneous scarring and densities in the anterior abdominal wall, without fluid collection. Pelvis: Bladder is unremarkable. Prostate is unremarkable on limited CT evaluation. Bones: Degenerative changes are seen. Sacroiliac ankylosis. Probable old right rib fractures. IMPRESSION: Sigmoid diverticulitis. No abscess. Consider colonoscopy correlation following clinical treatment. No significant discrepancy from the prelim report. Other findings above. Approved by: Vitaliy Sánchez M.D. on 10/10/2024 at 8:18 MDM Narrative Medical decision making narrative: Well-appearing patient with 4 days of symptoms. Abdomen soft, bilateral lower quadrant tenderness without peritoneal signs. Due to patient's age laboratory work and CT imaging will be ordered. Laboratory work reviewed, no significant abnormalities. Patient had mild ISA back in September, his creatinine is now back to baseline. Preliminary review of CT shows sigmoid diverticulitis. This appears to be relatively uncomplicated without perforation. Patient given antibiotics. He was already on oxycodone, no indication for additional narcotics at this time. Patient reassessed, sleeping soundly in ED bed, hemodynamically stable. Patient informed of results. He will call son for ride home. Discharge Plan Departure Patient Disposition: Home Clinical Impression: Diverticulitis Instructions: DI for Diverticulitis Activity Restrictions/Additional Instructions: Your laboratory work today shows no concerning findings. On CT today you have evidence of diverticulitis, which is inflammation of pouchings in your colon. To treat this I will prescribe antibiotics. Finish all of your antibiotics even if you improve. You are already on oxycodone. Any more narcotics puts you at risk of constipation, which can worsen the diverticulitis. Follow up with your primary care doctor Prescriptions: New amoxicillin-pot clavulanate 875-125 mg tablet 1 tab PO Q12H Qty: 20 0RF No Action (DME) blood-glucose meter Kit See Rx Instructions .ROUTE .MEDSUPPLY Qty: 1 0RF Rx Instructions: Use to test blood glucose BID (DME) Disabled Parking Permit See Rx Instructions .ROUTE .MEDSUPPLY Qty: 1 0RF Rx Instructions: Valid for 5 years (DME) pen needle, diabetic [Comfort EZ Pen [place]] 31 gauge x 5/16 needle See Dose Instructions .ROUTE .MEDSUPPLY Qty: 100 5RF Dose Instruction: As directed Rx Instructions: Use to inject insulin 5 times per day (DME) lancets [BD Ultra Fine Lancets] 33 gauge misc See Rx Instructions .ROUTE .MEDSUPPLY Qty: 100 6RF Rx Instructions: Use to test blood glucose twice daily nystatin 100,000 unit/gram powder 1 applic topical TID PRN (Reason: Tinea cruris) Qty: 30 1RF atorvastatin 80 mg tablet 80 mg PO DAILY Qty: 90 3RF (DME) Blood Glucose Test Strip See Rx Instructions .ROUTE .MEDSUPPLY Qty: 100 6RF Rx Instructions: Use to test blood glucose twice daily. bupropion HCl 300 mg tablet extended release 24 hr 300 mg PO DAILY Qty: 90 3RF levothyroxine 125 mcg tablet 125 mcg PO DAILY Qty: 90 0RF quetiapine 25 mg tablet 25 mg PO BEDTIME Qty: 90 3RF omeprazole 20 mg capsule,delayed release(DR/EC) 20 mg PO DAILY Qty: 30 3RF (DME) FreeStyle Timmy 2 [place] Misc See Rx Instructions .ROUTE .MEDSUPPLY Qty: 1 12RF Rx Instructions: As directed clopidogrel 75 mg tablet 75 mg PO DAILY Qty: 90 1RF nicotine 7 mg/24 hr patch 24 hour 2 patch transdermal Q24H Qty: 14 6RF Rx Instructions: if insurance won't approve 2 patches per day ok to order a 1 patch per day albuterol sulfate [Proventil HFA] 90 mcg/actuation HFA aerosol inhaler 2 puff INHALATION QID PRN (Reason: shortness of breath) Qty: 18 5RF isosorbide mononitrate 60 mg tablet extended release 24 hr 60 mg PO DAILY Qty: 30 2RF amlodipine 5 mg tablet 5 mg PO DAILY Qty: 30 2RF (DME) FreeStyle Timmy 2 Sensor Kit See Rx Instructions .Route Qty: 1 4RF Rx Instructions: use to continuously monitor blood sugars (DME) flash glucose sensor Kit See Rx Instructions .Route Qty: 1 6RF Rx Instructions: Use to check blood sugars twice daily. oxycodone 5 mg tablet 5 mg PO TID PRN (Reason: Pain, Moderate) Qty: 90 0RF Rx Instructions: Cervical Spondylolysis M72.02 Ozempic 0.25 mg or 0.5 mg (2 mg/3 mL) pen injector 0.5 mg SUBCUT QWEEK Qty: 3 6RF Rx Instructions: start injecting 0.5 mg every week gabapentin 300 mg capsule 300 mg PO BID ezetimibe 10 mg tablet PO metoprolol succinate 25 mg tablet extended release 24 hr 25 mg PO DAILY aspirin 81 mg tablet,chewable 81 mg PO DAILY ibuprofen 600 mg tablet 600 mg PO Q8H PRN citalopram 40 mg tablet 40 mg PO DAILY nitroglycerin 0.4 mg tablet, sublingual 0.4 mg sublingual Q5M PRN Rx Instructions: do not exceed 3 doses per episode Novolog FlexPen U-100 Insulin 100 unit/mL (3 mL) insulin pen 5 unit SUBCUT .COMPLEX PRN Rx Instructions: 5 units subcutaneously 5 units a.c. t.i.d. depending on carbohydrate content of meal PRN; insulin glargine U-300 conc 300 unit/mL (3 mL) insulin pen 60 unit SUBCUT BID Rx Instructions: 60 units as of 04/26 beclomethasone dipropionate 40 mcg/actuation HFA aerosol breath activated 1 inh Inhalation BID Qty: 10.6 5RF naproxen 500 mg tablet 500 mg PO BID PRN (Reason: pain) Qty: 40 0RF Referrals: Gasper Rutherford DO [Primary Care Provider] - Stand Alone Forms: Patient Portal/API/Survey
--- NOTE | 2024-10-10 04:05 | DI.CT.S_ITS ---
PROCEDURE: CT ABDOMEN PELVIS W CON INDICATIONS: LOWER ABD PAIN X 4 DAYS TECHNIQUE: After the administration of intravenous contrast, axial sections acquired from the lung bases to the pubic symphysis. Coronal and sagittal reformats were performed. For radiation dose reduction, the following was used: automated exposure control, adjustment of mA and/or kV according to patient size. COMPARISON: [facility], CT, CT ABDOMEN PELVIS W CON, 03/13/2024, 2:35. FINDINGS: Image quality: Diagnostic Lower chest: Basal reticular changes with some honeycombing in the middle lobe and lingula, similar to prior, likely representing interstitial lung disease partially visualized. There is traction bronchiectasis. No pleural effusions. Coronary calcifications. Liver: Unremarkable Gallbladder and biliary system: Unremarkable, nondilated Pancreas: No ductal dilation Spleen: Nonenlarged Adrenals: No discrete nodules Kidneys: No solid mass. No hydronephrosis. Vessels and lymph nodes: The main portal vein is patent. No abdominal aortic aneurysm. No pathologic lymph nodes by size criteria. There are atherosclerotic calcifications. Bowel and peritoneum: Diffuse colonic diverticulosis, with wall thickening of the sigmoid colon. Mild surrounding edematous fat stranding. Overall aptr-bi-dhrdfhta fecal loading. The appendix is nondilated. No small bowel obstruction. No pathologic ascites drainable abscess. Body wall: Small fat containing inguinal hernias. Similar subcutaneous scarring and densities in the anterior abdominal wall, without fluid collection. Pelvis: Bladder is unremarkable. Prostate is unremarkable on limited CT evaluation. Bones: Degenerative changes are seen. Sacroiliac ankylosis. Probable old right rib fractures. IMPRESSION: Sigmoid diverticulitis. No abscess. Consider colonoscopy correlation following clinical treatment. No significant discrepancy from the prelim report. Other findings above. Approved by: Vitaliy Sánchez M.D. on 10/10/2024 at 8:18
[2024-10-10 04:16] LABS: Add Manual Diff / Slide Review NO; Basophils Absolute Auto 100 /uL (0-100); Basophils Percent Auto 0.6 % (0-2); Eosinophils Absolute Auto 300 /uL (0-450); Eosinophils Percent Auto 2.9 % (2-4); Lymphocytes Absolute Auto 1900 /uL (1100-4500); Lymphocytes Percent Auto 18.2 % (25-40); Mean Corpuscular HGB Conc 34.3 % (30-36); Mean Corpuscular Hemoglobin 30.1 PG (26-34); Mean Corpuscular Volume 87.7 fL (80-100); Monocytes Absolute Auto 700 /uL (0-900); Monocytes Percent Auto 6.7 % (3-14); Neutrophils Absolute Auto 7500 /uL (1500-7000); Neutrophils Percent Auto 71.6 % (50-75); Platelet Count 258 X10^3/uL (150-400); Red Blood Cell Count 3.99 X10^6/uL (4.5-5.9); White Blood Cell Count 10.5 X10^3/uL (4.5-11.0)
[2024-10-10 04:25] LABS: Alanine Aminotransferase 29 IU/L (<50); Albumin 3.8 g/dL (3.5-5.0); Albumin Globulin Ratio 1.1 (1.0-2.8); Alkaline Phosphatase 93 U/L (38-126); Aspartate Aminotransferase 36 IU/L (17-59); BUN Creatinine Ratio 21.4 (6-22); Bilirubin Total 0.7 mg/dL (0.2-1.3); Blood Urea Nitrogen 18 mg/dL (9-20); Calcium 8.9 mg/dL (8.4-10.2); Carbon Dioxide 24 mmol/L (22-32); Chloride 103 mmol/L (98-107); Estimated Glomerular Filt Rate > 60 mL/min (>60); Globulin 3.5 g/dL (1.7-4.1); Glucose 170 mg/dL (80-110); HEMOLYSIS < 15 (0-50); Lipase 258 U/L (23-300); Sodium 134 mmol/L (137-145); Total Protein 7.3 g/dL (6.3-8.2)
--- NOTE | 2024-10-10 06:54 | PC.NURSE ---
to yo to call his son for a ride home
== END 2024-10-10 07:07 | disposition home or self-care (01) ==
PROVIDERS: Emergency Provider Emergency Medicine; PCP Family Medicine
DX: K57.92 Diverticulitis of intestine, part unspecified, without perforation or abscess without bleeding (principal); K59.00 Constipation, unspecified; R79.89 Other specified abnormal findings of blood chemistry
CPT/HCPCS: 74177; 80053; 83690; 85025; 99281; 99284

== ENCOUNTER 2024-11-27 03:39 | Emergency (ER) | payer OTHER, MEDICAID, SELFPAY ==
[2022-12-12 10:26] VITALS: BMI 33.9
[2024-11-27 03:42] VITALS: BMI 27.3
--- NOTE | 2024-11-27 04:26 | ED.UPPEXIN ---
HPI - Extremity Injury (Upper) General Chief Complaint: Extremity Injury, Upper Stated Complaint: L shoulder pain Time Seen by Provider: 11/27/24 04:22 Source: patient and EMS Mode of arrival: EMS History of Present Illness HPI narrative: 69-year-old male with history of diabetes, history of dementia, felt like he was seeing things this morning 3 hours ago, which has happened to him in the past, when he became startled and slipped and fell, striking his left shoulder on something on the way down to floor, complains of persisting left-sided shoulder pain, that is worse with any movement. No numbness or tingling to the left extremity. Denies anterior chest pain or shortness of breath. Denies striking his head, loss of consciousness, headache, neck pain. No other injuries recalled. Related Data Home Medications Medication Instructions Recorded Confirmed aspirin 81 mg chewable tablet 81 mg PO DAILY 04/27/24 08/25/24 citalopram 40 mg tablet 40 mg PO DAILY 04/27/24 08/25/24 ezetimibe 10 mg tablet mg PO 04/27/24 08/25/24 gabapentin 300 mg capsule 300 mg PO BID 04/27/24 08/25/24 ibuprofen 600 mg tablet 600 mg PO Q8H PRN 04/27/24 08/25/24 insulin aspart U-100 100 unit/mL 5 unit SUBCUT .COMPLEX PRN 04/27/24 08/25/24 (3 mL) subcutaneous pen (Novolog FlexPen U-100 Insulin aspart) insulin glargine U-300 conc 300 60 unit SUBCUT BID 04/27/24 08/25/24 unit/mL (3 mL) subcutaneous pen metoprolol succinate 25 mg 25 mg PO DAILY 04/27/24 08/25/24 tablet,extended release 24 hr nitroglycerin 0.4 mg sublingual 0.4 mg sublingual Q5M PRN 04/27/24 08/25/24 tablet Previous Rx's Medication Instructions Recorded blood-glucose meter #1 ea 01/11/21 Disabled Parking Permit #1 ea 02/15/21 lancets 33 gauge (BD Ultra Fine #100 ea 09/24/22 Lancets) pen needle, diabetic 31 gauge x #100 ea 09/24/2203/17 (Comfort EZ Pen [place]) beclomethasone dipropionate 40 1 inh inhalation BID Shortness Of 12/11/23 mcg/actuation HFA breath activated Breath #10.6 grams aerosol naproxen 500 mg tablet 500 mg PO BID PRN pain #40 tabs 01/26/24 atorvastatin 80 mg tablet 80 mg PO DAILY #90 tabs 03/22/24 blood sugar diagnostic (Blood #100 ea 03/22/24 Glucose Test strips) bupropion HCl 300 mg 24 hr tablet, 300 mg PO DAILY #90 tabs 03/22/24 extended release levothyroxine 125 mcg tablet 125 mcg PO DAILY #90 tabs 03/22/24 quetiapine 25 mg tablet 25 mg PO BEDTIME #90 tabs 03/22/24 omeprazole 20 mg capsule,delayed 20 mg PO DAILY #30 caps 04/20/24 release flash glucose scanning reader #1 ea 06/20/24 ([email or web address] Timmy 2 [place]) nicotine 7 mg/24 hr daily 2 patch transdermal Q24H nicotine 06/28/24 transdermal patch cessation #14 ea albuterol sulfate 90 mcg/actuation 2 puff inhalation QID PRN 06/30/24 aerosol inhaler (Proventil HFA) shortness of breath #18 grams amlodipine 5 mg tablet 5 mg PO DAILY #30 tabs 07/12/24 isosorbide mononitrate 60 mg 60 mg PO DAILY #30 tabs 07/12/24 tablet,extended release 24 hr flash glucose sensor #1 ea 07/14/24 semaglutide 0.25 mg or 0.5 mg (2 0.5 mg (0.736 mL) SUBCUT QWEEK #3 10/07/24 mg/3 mL) subcutaneous pen injector mL (OzempBefore the Call) amoxicillin 875 mg-potassium 1 tab PO Q12H #20 tabs 10/10/24 clavulanate 125 mg tablet nystatin 100,000 unit/gram topical 1 applic topical TID PRN Tinea 10/18/24 powder cruris #30 grams flash glucose sensor (Teknovusyle #6 kits 11/17/24 Timmy 2 Sensor kit) clopidogrel 75 mg tablet 75 mg PO DAILY #90 tabs 11/24/24 oxycodone 5 mg tablet 5 mg PO TID PRN Pain, Moderate #90 11/25/24 tabs Allergies Allergy/AdvReac Type Severity Reaction Status Date / Time adhesive Allergy Mild REDNESS/ITC Verified 09/08/24 08:06 HINESS morphine AdvReac ITCHING Verified 09/08/24 08:06 Patient History Medical History Major depressive disorder, recurrent, moderate Alcohol dependence, uncomplicated Type 2 diabetes mellitus with diabetic polyneuropathy Tobacco use disorder Adhesive capsulitis Left shoulder pain BPH (benign prostatic hyperplasia) Osteoarthritis of left hip Skin sore Stress incontinence Borderline hyperlipidemia Hip pain Cellulitis Mental health assessment declined Steatosis Bilateral otitis externa Sleep apnea Otitis externa Hearing reduced Screening for malignant neoplasm of colon Type 2 diabetes mellitus History of recurrent TIAs Well adult exam Strain of muscle of right groin region (03/30/18) Chicken pox (1956) Measles (1955) Mumps (1958) Status post myocardial infarction Neuropathy Eczema Chronic cough Depression (2008) Obstructive sleep apnea Gout Shoulder pain Foot pain Chickenpox (1956) Measles (1955) Mumps (1958) Kidney disease (2009) GERD (gastroesophageal reflux disease) (2012) Hypothyroidism Hypertension Hyperlipidemia Diabetes (1994) Coronary artery disease (2006) COPD (chronic obstructive pulmonary disease) Surgical History History of repair of left rotator cuff Anesthesia History of heart artery stent (2010) History of heart artery stent (2006) Hx of shoulder surgery (2005) Family History Brother Age: 70 Diabetes mellitus Hyperlipidemia Mother Heart disease Hypertension Hyperlipidemia Diabetes mellitus Grandmother Diabetes mellitus Brother No problems noted. Sister Breast cancer Social History marital status: details: 3 years ago household members: none lives independently: Yes housing: apartment Smoking Status: Current every day smoker Tobacco: How many years used: 45 alcohol intake: current Smoking Status: Current every day smoker tobacco type: cigarettes alcohol intake frequency: 0-2 drinks per day Exam Narrative Exam Narrative: GENERAL: Well-developed patient, in mild distress. HEAD: Atraumatic. Normocephalic. EYES: Pupils equal round and reactive. Extraocular motions intact. No scleral icterus. No injection or drainage. ENT: No obvious facial injuries, symmetrical nasal bridge NECK: Trachea midline. Non tender CARDIOVASCULAR: Regular rate and rhythm without murmurs, gallops, or rubs. RESPIRATORY: Clear to auscultation. Breath sounds equal bilaterally. No wheezes, rales, or rhonchi. GASTROINTESTINAL: Abdomen soft, non-tender, nondistended. Reducible umbilical hernia. EXTREMITIES: No edema or joint tenderness. No gross deformity to left shoulder, some tenderness and anterior bicipital tendon groove, no tenderness along AC joint or along clavicle, nor along superior trapezius or lateral deltoid. No skin changes or redness. Limited left shoulder flexion extension abduction due to pain. BACK: Nontender without deformity or crepitance. No flank tenderness. NEURO: AOx3. Motor functions grossly nonfocal SKIN: No rash or erythema of visible areas Initial Vital Signs Initial Vital Signs: Vital Signs Pulse Rate 96 H 11/27/24 07:25 Respiratory Rate 16 11/27/24 07:25 Blood Pressure 143/76 H 11/27/24 07:25 Pulse Oximetry 98 11/27/24 07:25 Oxygen Delivery Method Room Air 11/27/24 07:25 Course Orders Ordered: ED Orders 11/27/24 04:28 XR shoulder LT min 2V Stat MDM - Extremity Injury (Upper) Lab Data Labs: Point of Care Testing Glucose POC 113 Imaging Data Extremity x-ray #1: Radiologist's Impression: [address] [address] XRay Report Signed Patient: Carlos Randall MR#: [id number] : 1955 Acct:[id number] Age/Sex: 69 / M Date of Service: 11/27/24 Loc: ED Accession Number: [id number] Procedure: XR shoulder LT min 2V Ordering Provider: Meir Escobar MD PROCEDURE: XR SHOULDER LT MIN 2V INDICATIONS: Left shoulder pain TECHNIQUE: 2 views of the shoulder were acquired. COMPARISON: [facility], , XR SHOULDER LT MIN 2V, 05/27/2024, 7:28. FINDINGS: Diffuse osseous demineralization. No acute fracture or dislocation suture anchor overlying the humeral head. Prior subacromial decompression with distal clavicular resection. Mild glenohumeral osteoarthritis. Visualized left hemithorax within normal limits. IMPRESSION: No acute fracture or dislocation of the left shoulder. Dictated by: Jordan Rosa M.D. on 11/27/2024 at 8:13 Approved by: Jordan Rosa M.D. on 11/27/2024 at 8:14 [facility] Narrative Medical decision making narrative: 69-year-old male with history of diabetes and dementia, ground level fall, left shoulder pain without gross deformity, some anterior shoulder tenderness. X-ray left shoulder ordered X-ray left shoulder without obvious dislocation or fracture changes. See radiology report. Placed in left shoulder sling Glucose check 48 noted, asymptomatic, given oral peanut butter/cracker food load, encouraged to hold his diabetes morning medications, recheck sugar later today and contact his doctor tomorrow Thursday during regular morning clinic hours for further glucose control recommendations. Repeat glucose 113 noted. Discharged home with sling. Hold morning/daytime diabetes medications today Thursday. Call office of his PCP tomorrow Thursday advised. Follow up with PCP advised Discharge Plan Departure Patient Disposition: Home Clinical Impression: Left shoulder strain, Hypoglycemia, History of diabetes mellitus Activity Restrictions/Additional Instructions: History of dementia, ground level fall, left shoulder pain. X-ray showed no obvious fracture or dislocation changes, old postoperative hardware noted, arthritic changes also noted. Left shoulder sling placed for comfort, follow up with PCP to reassess the next few days. Follow up with Orthopedic surgery could be considered, contact information provided for local orthopedic surgery on-call, though you might require referral from your primary care provider. Incidentally your sugar was noted to be low, history of diabetes, oral food given, improved blood glucose level noted, hold diabetes medications this morning and today. Recheck sugar through the day. Call your doctor tomorrow morning during Thursday regular clinic hours to discuss further glucose control measures. Return earlier to this/nearest emergency department for any change worsening symptoms or any concerns prior Prescriptions: No Action (DME) blood-glucose meter Kit See Rx Instructions .ROUTE .MEDSUPPLY Qty: 1 0RF Rx Instructions: Use to test blood glucose BID (DME) Disabled Parking Permit See Rx Instructions .ROUTE .MEDSUPPLY Qty: 1 0RF Rx Instructions: Valid for 5 years (DME) pen needle, diabetic [Comfort EZ Pen [place]] 31 gauge x 5/16 needle See Dose Instructions .ROUTE .MEDSUPPLY Qty: 100 5RF Dose Instruction: As directed Rx Instructions: Use to inject insulin 5 times per day (DME) lancets [BD Ultra Fine Lancets] 33 gauge misc See Rx Instructions .ROUTE .MEDSUPPLY Qty: 100 6RF Rx Instructions: Use to test blood glucose twice daily atorvastatin 80 mg tablet 80 mg PO DAILY Qty: 90 3RF (DME) Blood Glucose Test Strip See Rx Instructions .ROUTE .MEDSUPPLY Qty: 100 6RF Rx Instructions: Use to test blood glucose twice daily. bupropion HCl 300 mg tablet extended release 24 hr 300 mg PO DAILY Qty: 90 3RF levothyroxine 125 mcg tablet 125 mcg PO DAILY Qty: 90 0RF quetiapine 25 mg tablet 25 mg PO BEDTIME Qty: 90 3RF omeprazole 20 mg capsule,delayed release(DR/EC) 20 mg PO DAILY Qty: 30 3RF (DME) FreeStyle Timmy 2 [facility] [place] See Rx Instructions .ROUTE .MEDSUPPLY Qty: 1 12RF Rx Instructions: As directed nicotine 7 mg/24 hr patch 24 hour 2 patch transdermal Q24H Qty: 14 6RF Rx Instructions: if insurance won't approve 2 patches per day ok to order a 1 patch per day albuterol sulfate [Proventil HFA] 90 mcg/actuation HFA aerosol inhaler 2 puff INHALATION QID PRN (Reason: shortness of breath) Qty: 18 5RF isosorbide mononitrate 60 mg tablet extended release 24 hr 60 mg PO DAILY Qty: 30 2RF amlodipine 5 mg tablet 5 mg PO DAILY Qty: 30 2RF (DME) flash glucose sensor Kit See Rx Instructions .Route Qty: 1 6RF Rx Instructions: Use to check blood sugars twice daily. Ozempic 0.25 mg or 0.5 mg (2 mg/3 mL) pen injector 0.5 mg SUBCUT QWEEK Qty: 3 6RF Rx Instructions: start injecting 0.5 mg every week nystatin 100,000 unit/gram powder 1 applic topical TID PRN (Reason: Tinea cruris) Qty: 30 1RF (DME) FreeStyle Timmy 2 Sensor Kit See Rx Instructions .ROUTE .COMPLEX Qty: 6 3RF Dose Instruction: USE TO CHECK BLOOD SUGAR TWICE DAILY; CHANGE SENSOR EVERY 14 DAYS DIRECTED Rx Instructions: USE TO CHECK BLOOD SUGAR TWICE DAILY; CHANGE SENSOR EVERY 14 DAYS DIRECTED clopidogrel 75 mg tablet 75 mg PO DAILY Qty: 90 1RF oxycodone 5 mg tablet 5 mg PO TID PRN (Reason: Pain, Moderate) Qty: 90 0RF Rx Instructions: Cervical Spondylolysis M72.02 gabapentin 300 mg capsule 300 mg PO BID ezetimibe 10 mg tablet PO metoprolol succinate 25 mg tablet extended release 24 hr 25 mg PO DAILY aspirin 81 mg tablet,chewable 81 mg PO DAILY ibuprofen 600 mg tablet 600 mg PO Q8H PRN citalopram 40 mg tablet 40 mg PO DAILY nitroglycerin 0.4 mg tablet, sublingual 0.4 mg sublingual Q5M PRN Rx Instructions: do not exceed 3 doses per episode Novolog FlexPen U-100 Insulin 100 unit/mL (3 mL) insulin pen 5 unit SUBCUT .COMPLEX PRN Rx Instructions: 5 units subcutaneously 5 units a.c. t.i.d. depending on carbohydrate content of meal PRN; insulin glargine U-300 conc 300 unit/mL (3 mL) insulin pen 60 unit SUBCUT BID Rx Instructions: 60 units as of 04/26 beclomethasone dipropionate 40 mcg/actuation HFA aerosol breath activated 1 inh Inhalation BID Qty: 10.6 5RF naproxen 500 mg tablet 500 mg PO BID PRN (Reason: pain) Qty: 40 0RF amoxicillin-pot clavulanate 875-125 mg tablet 1 tab PO Q12H Qty: 20 0RF Referrals: Gasper Rutherford DO [Primary Care Provider] - Raulito Piña MD [Physician] - Stand Alone Forms: Patient Portal/API/Survey
--- NOTE | 2024-11-27 05:32 | PC.NURSE ---
Left message for son Cy to call ER back at [phone] for ride home.
[2024-11-27 07:25] VITALS: BP 143/76; PULSE 96; RESP 16; O2SAT 98
== END 2024-11-27 07:26 | disposition home or self-care (01) ==
PROVIDERS: Emergency Provider Emergency Medicine; PCP Family Medicine
DX: S46.912A Strain of unspecified muscle, fascia and tendon at shoulder and upper arm level, left arm, initial encounter (principal); W01.198A Fall on same level from slipping, tripping and stumbling with subsequent striking against other object, initial encounter; F03.90 Unspecified dementia, unspecified severity, without behavioral disturbance, psychotic disturbance, mood disturbance, and anxiety; Z79.4 Long term (current) use of insulin; Z86.73 Personal history of transient ischemic attack (TIA), and cerebral infarction without residual deficits; E03.9 Hypothyroidism, unspecified; I10 Essential (primary) hypertension; E78.5 Hyperlipidemia, unspecified; E11.649 Type 2 diabetes mellitus with hypoglycemia without coma; Z86.79 Personal history of other diseases of the circulatory system; J44.9 Chronic obstructive pulmonary disease, unspecified; F17.210 Nicotine dependence, cigarettes, uncomplicated
CPT/HCPCS: 73030; 82962; 99283

== ENCOUNTER → 2024-11-28 09:49 | Outpatient (CLI) | payer OTHER, MEDICAID, SELFPAY ==
[2022-12-12 10:26] VITALS: BMI 33.9
[2024-11-28 10:41] LABS: Hemoglobin A1C% w Est Avg Glu 6.7 % (4.0-6.0)
[2024-11-28 10:50] LABS: Alanine Aminotransferase 24 IU/L (<50); Albumin 3.5 g/dL (3.5-5.0); Albumin Globulin Ratio 1.1 (1.0-2.8); Alkaline Phosphatase 71 U/L (38-126); Aspartate Aminotransferase 35 IU/L (17-59); BUN Creatinine Ratio 19.4 (6-22); Bilirubin Total 0.4 mg/dL (0.2-1.3); Blood Urea Nitrogen 21 mg/dL (9-20); Calcium 8.7 mg/dL (8.4-10.2); Carbon Dioxide 29 mmol/L (22-32); Chloride 102 mmol/L (98-107); Cholesterol 162 mg/dL (140-199); Estimated Glomerular Filt Rate > 60 mL/min (>60); Globulin 3.3 g/dL (1.7-4.1); Glucose 139 mg/dL (80-110); HDL Cholesterol 49 mg/dL (40-60); HEMOLYSIS < 15 (0-50); LDL Cholesterol Calculated 91 mg/dL (<100); Potassium 4.1 mmol/L (3.4-5.1); Sodium 137 mmol/L (137-145); Total Protein 6.8 g/dL (6.3-8.2); Triglycerides 111 mg/dL (35-150)
[2024-11-28 10:55] LABS: Creatinine Urine Random 177.69 mg/dL
[2024-11-28 11:07] LABS: Free T4, Direct Thyroxine 1.13 ng/dL (0.78-2.19)
[2024-11-28 11:21] LABS: Thyroid Stimulating Hormone 2.01 uIU/mL (0.47-4.68)
== END ==
PROVIDERS: PCP Family Medicine; Referring Provider Family Medicine; Visit Provider Family Medicine
DX: E11.42 Type 2 diabetes mellitus with diabetic polyneuropathy (principal); E03.9 Hypothyroidism, unspecified; I10 Essential (primary) hypertension; N40.0 Benign prostatic hyperplasia without lower urinary tract symptoms; I25.10 Atherosclerotic heart disease of native coronary artery without angina pectoris
CPT/HCPCS: 36415; 80053; 80061; 82043; 82570; 83036; 84439; 84443

== ENCOUNTER → 2024-12-09 13:41 | Outpatient (CLI) | payer OTHER, MEDICAID, SELFPAY ==
[2024-12-01 15:43] VITALS: BMI 33.9
--- NOTE | 2024-12-30 14:03 | DIAB.MNT ---
Initial Diabetes Medical Nutrition Therapy Assessment Name: Carlos Randall (Andres) Date: 12/09/24 Time: 2-3p Dx: Type II Diabetes Provider: Krish Campos presents for initial DM visit. Diagnosed in 1994. Reports wheelchair use r/t Lewy body dementia. Endorses getting retinopathy treatment q 2 weeks. Using FSL requiring swipes. Discussed potential for CGM sample that did not require swiping, but he would like to wait on this. Lives alone but has caregiver Thu - 9a-12p. States he is happy with current DM care. -40# with Semaglutide. Endorses MDI but often forgets ac insulin. States he treats lows with ice cream sandwich, cookies, and juice. Had a 44mg/dl in ED 11/27/24. Diet Recall: 2p: homemade fried rice x 2c with protein and veg OR MOW sn: nothing or ice cream sandwich 6-7p: MOW, pasta 1.5-2c with protein and veggies and corn and peas grazing: popcorn, ice cream, cookie infrequently, taffy, licorice (reports this helps reduce his smoking-- down to 6-10 cigarettes per day from 1 pack) water: 32oz sf or diet soda a lot Anthropometrics: Ht: 67 Wt: 171# Physical Activity: no program Self-Monitoring Blood Glucose: Wears a Libre2 x 1-2 years. No clarity specialists for review today. Checks FBG 100-120mg/dl and later randomly >200mg/dl, up to 250s, infrequent lows reported. Diabetes Medications: 1mg Ozempic 60u Lantus BID (down from reported 80u) 5u Aspart TID Pertinent Labs: HgA1c: 7.7% 07/2024 6.7% 11/2024 Past Medical History: (Last Reviewed 10/10/24 @ 04:10 by Giselle Chavarria MD) Adhesive capsulitis Alcohol dependence, uncomplicated Bilateral otitis externa Borderline hyperlipidemia BPH (benign prostatic hyperplasia) Cellulitis Chicken pox (7) Chickenpox (7) Chronic cough COPD (chronic obstructive pulmonary disease) Coronary artery disease (2006) [place] 2007, coronary stent 2006, 2009, 2019 Depression (2008) Diabetes (1994) Eczema Foot pain GERD (gastroesophageal reflux disease) (2012) Gout Hearing reduced Hip pain History of recurrent TIAs Hyperlipidemia Hypertension Hypothyroidism Kidney disease (2010) Left shoulder pain Major depressive disorder, recurrent, moderate Measles (1955) Measles (1955) Mental health assessment declined Mumps (1958) Mumps (1958) Neuropathy Obstructive sleep apnea Osteoarthritis of left hip Otitis externa Screening for malignant neoplasm of colon Shoulder pain Skin sore Sleep apnea Status post myocardial infarction Steatosis Strain of muscle of right groin region (03/30/18) Stress incontinence Tobacco use disorder Type 2 diabetes mellitus Type 2 diabetes mellitus with diabetic polyneuropathy Well adult exam Nutrition Rx: Carbohydrates: Meal:45g Snack:15-30g Nutrition Diagnosis: - Nutrition and food related knowledge deficit r/t needing ed on treating lows aeb pt report of high CHO, but mixed macro treatment- new - Predicted excessive CHO intake r/t food access/choices aeb diet recall Intervention: This participant was very receptive. Provided appropriate educational handouts. Discussed the following topics: Completed intake assessment. Discussed barriers to care. CGM types Rule of 15 for lows Carb portions BG trends reported Created SMART goals for patient self-care and success. Goals: Bring clarity specialists next visit Evangelina CAROLINA Use rule of 15 for lows Follow-up: KIMMY PATE follow-up in 2-3 weeks Kimberly Beckford RDN, HERLINDA Certified Diabetes Care and Manager Relocation P: [phone] Thank you for this referral
== END ==
PROVIDERS: PCP Family Medicine; Referring Provider Family Medicine
DX: E11.319 Type 2 diabetes mellitus with unspecified diabetic retinopathy without macular edema (principal); G31.83 Neurocognitive disorder with Lewy bodies; F02.80 Dementia in other diseases classified elsewhere, unspecified severity, without behavioral disturbance, psychotic disturbance, mood disturbance, and anxiety; Z71.3 Dietary counseling and surveillance; Z79.4 Long term (current) use of insulin; Z79.85 Long-term (current) use of injectable non-insulin antidiabetic drugs
CPT/HCPCS: 97802

== ENCOUNTER → 2024-12-30 14:41 | Outpatient (CLI) | payer OTHER, MEDICAID, SELFPAY ==
[2024-12-01 15:43] VITALS: BMI 33.9
--- NOTE | 2024-12-30 14:53 | DIAB.FU ---
Follow-up Diabetes Education Assessment Name: Carlos Randall (Andres) Date: 12/30/24 Time: 3-330p Dx: Type II Diabetes Provider: Krish Campos presents for follow-up DM visit. Not taking meal time insulin, and not having a lot of elevations. Often skipping or only taking insulin 1x per day, Lantus 60u. Skips insulin all together when BG is <200mg/dl. He is aware that he needs to take his Lantus consistently but worries about lows. does not titrate dose down, instead will skip all together. Loves veggies. Cooks at home and gets MOW. Diet Recall: 1p: yogurt, yoplait 5-6: MOW less grazing now Eating popcorn in evening cut out ice cream lately Some cookies (3-4 in a sitting) little taffy water: 32oz sf or diet soda a lot Anthropometrics: Ht: 67 Wt: 171# Physical Activity: no program Self-Monitoring Blood Glucose: Wears a Libre2. Does not want to upgrade. Over the last two weeks he is having frequent lows, 6/14 days. Has been treating them appropriately with apple juice now. Otherwise, BG in goal. TIR: 2% very high 22% high 75% in range 1% low avmg/dl GMI: 6.9% variance 32.1% Diabetes Medications: 1mg Ozempic 60u Lantus BID (down from reported 80u) 5u Aspart TID Pertinent Labs: HgA1c: 7.7% 07/2024 6.7% 11/2024 Past Medical History: (Last Reviewed 10/10/24 @ 04:10 by Giselle Chavarria MD) Adhesive capsulitis Alcohol dependence, uncomplicated Bilateral otitis externa Borderline hyperlipidemia BPH (benign prostatic hyperplasia) Cellulitis Chicken pox (1956) Chickenpox (1956) Chronic cough COPD (chronic obstructive pulmonary disease) Coronary artery disease (2006) [place] 2007, coronary stent 2006, 2009, 2019 Depression (2008) Diabetes (1994) Eczema Foot pain GERD (gastroesophageal reflux disease) (2012) Gout Hearing reduced Hip pain History of recurrent TIAs Hyperlipidemia Hypertension Hypothyroidism Kidney disease (2009) Left shoulder pain Major depressive disorder, recurrent, moderate Measles (1955) Measles (1955) Mental health assessment declined Mumps (1959) Mumps (1959) Neuropathy Obstructive sleep apnea Osteoarthritis of left hip Otitis externa Screening for malignant neoplasm of colon Shoulder pain Skin sore Sleep apnea Status post myocardial infarction Steatosis Strain of muscle of right groin region (03/30/18) Stress incontinence Tobacco use disorder Type 2 diabetes mellitus Type 2 diabetes mellitus with diabetic polyneuropathy Well adult exam Nutrition Rx: Carbohydrates: Meal:45g Snack:15-30g Nutrition Diagnosis: - Nutrition and food related knowledge deficit r/t needing ed on treating lows aeb pt report of high CHO, but mixed macro treatment- new - Predicted excessive CHO intake r/t food access/choices aeb diet recall Intervention: This participant was very receptive. Provided appropriate educational handouts. Discussed the following topics: Reviewed importance of trying to stick to one Lantus dose if possible to determine his needs Review of BG trends and goals Physical activity Nutrition recs Importance of mitigating lows Created SMART goals for patient self-care and success. Goals: Bring metal flooring installer next visit- met Evangelina CAROLINA- met Use rule of 15 for lows- met Try PT exercises daily safely- new Try to keep Lantus dose consistent, start with 45u AM- new Follow-up: KIMMY PATE follow-up in 1 week in PCP appt and [address] Will download his CGM pre PCP visit next week. If BG trending up, we can increase dose prn. Hoping to mitigate lows as much. Kimberly Beckford, KIMMY, HERLINDA Certified Diabetes Care and Commercial Collections Driver P: [phone] Thank you for this referral
== END ==
PROVIDERS: PCP Family Medicine; Referring Provider Family Medicine
DX: E11.42 Type 2 diabetes mellitus with diabetic polyneuropathy (principal); E11.649 Type 2 diabetes mellitus with hypoglycemia without coma; T38.3X6A Underdosing of insulin and oral hypoglycemic [antidiabetic] drugs, initial encounter; Z79.4 Long term (current) use of insulin; Z71.3 Dietary counseling and surveillance; Z91.148 Patient's other noncompliance with medication regimen for other reason; Z79.85 Long-term (current) use of injectable non-insulin antidiabetic drugs
CPT/HCPCS: 97803

== ENCOUNTER → 2025-01-20 15:42 | Outpatient (CLI) | payer OTHER, MEDICAID, SELFPAY ==
[2024-12-01 15:43] VITALS: BMI 33.9
--- NOTE | 2025-01-20 16:52 | DIAB.FU ---
Follow-up Diabetes Education Assessment Name: Carlos Randall (Andres) Date: 01/20/25 Time: 4-440p Dx: Type II Diabetes Provider: Krish Campos presents for follow-up DM visit. Not taking meal time insulin, and not having a lot of elevations. Often skipping or only taking insulin 1x per day, Lantus 40-60u. Skips insulin all together when BG is <200mg/dl. He is aware that he needs to take his Lantus consistently but worries about lows. Has been trying to titrate lower 40u when 170mg/dl and trending up. His insulin dosing seems inconsistent and may or may not be causing the lows. Still having some lows each week, though he reports they have improved. Endorses feeling better in general, more energy. Eating one meal plus snacks per day. Limited appetite with GLP1. states he very much needs to get toe nails trimmed but not sure where he has been referred. Anthropometrics: Ht: 67 Wt: 170# 12/2024 Reports personal goal of 160#. Physical Activity: no program. Wants to start PT exercises at home. Self-Monitoring Blood Glucose: Wears a Libre2. Does not want to upgrade. TIR within goal. 4 days with lows over the last 2 weeks, which is excessive. TIR: 2% very high 23% high 74% in range 1% low 0% very low avmg/dl GMI: 6.8% variance 30.7% Last TIR: 2% very high 22% high 75% in range 1% low avmg/dl GMI: 6.9% variance 32.1% Diabetes Medications: 1mg Ozempic 0-60u Lantus 5u Aspart TID--- d/c Pertinent Labs: HgA1c: 7.7% 07/2024 6.7% 11/2024 Past Medical History: (Last Reviewed 10/10/24 @ 04:10 by Giselle Chavarria MD) Adhesive capsulitis Alcohol dependence, uncomplicated Bilateral otitis externa Borderline hyperlipidemia BPH (benign prostatic hyperplasia) Cellulitis Chicken pox (7) Chickenpox (1956) Chronic cough COPD (chronic obstructive pulmonary disease) Coronary artery disease (2006) [place] 2006, coronary stent 2006, 2009, 2019 Depression (2008) Diabetes (1994) Eczema Foot pain GERD (gastroesophageal reflux disease) (2012) Gout Hearing reduced Hip pain History of recurrent TIAs Hyperlipidemia Hypertension Hypothyroidism Kidney disease (2009) Left shoulder pain Major depressive disorder, recurrent, moderate Measles (1955) Measles (1955) Mental health assessment declined Mumps (1958) Mumps (1958) Neuropathy Obstructive sleep apnea Osteoarthritis of left hip Otitis externa Screening for malignant neoplasm of colon Shoulder pain Skin sore Sleep apnea Status post myocardial infarction Steatosis Strain of muscle of right groin region (03/30/18) Stress incontinence Tobacco use disorder Type 2 diabetes mellitus Type 2 diabetes mellitus with diabetic polyneuropathy Well adult exam Intervention: This participant was very receptive. Provided appropriate educational handouts. Discussed the following topics: Tracking insulin each day if possible, limitation with memory Reviewed podiatry referral and provided contact info Physical activity plan Importance of mitigating lows Created SMART goals for patient self-care and success. Goals: Try PT exercises daily safely- in progress Try to keep Lantus dose consistent, start with 45u AM- in progress Write down insulin doses on provided calendars- new Call podiatry- new Follow-up: KIMMY PATE follow-up in 4 weeks Kimberly Beckford RDN, HERLINDA Certified Diabetes Care and Applications Consultant P: [phone] Thank you for this referral
== END ==
PROVIDERS: PCP Family Medicine; Referring Provider Family Medicine
DX: E11.42 Type 2 diabetes mellitus with diabetic polyneuropathy (principal); E11.65 Type 2 diabetes mellitus with hyperglycemia; Z79.4 Long term (current) use of insulin; Z79.84 Long term (current) use of oral hypoglycemic drugs
CPT/HCPCS: G0108

== ENCOUNTER 2025-01-22 22:09 | Emergency (ER) | payer OTHER, MEDICAID, SELFPAY ==
[2024-12-01 15:43] VITALS: BMI 33.9
[2025-01-22] VITALS (7 sets, daily range): BP systolic 122–133; BP diastolic 50–98; PULSE 71–75; RESP 16–23; TEMP 37.1; O2SAT 94–96; BMI 29.2
--- NOTE | 2025-01-22 22:41 | DI.CT.S_ITS ---
PROCEDURE: CT CERVICAL SPINE WO CON INDICATIONS: fall, head injury, on thinners TECHNIQUE: Noncontrast 3 mm thick sections acquired from the skull base to the T4 level. Sagittal and coronal reformats were then constructed. For radiation dose reduction, the following was used: automated exposure control, adjustment of mA and/or kV according to patient size. COMPARISON: [facility], CT, CT CERVICAL SPINE WO CON, 03/29/2024, 23:12. [facility], CT, CT CERVICAL SPINE WO CON, 03/12/2024, 21:36. FINDINGS: Image quality: Diagnostic Bones: No acute fractures or dislocations. No acute compression fractures of the vertebral bodies. Craniocervical junction is intact. C1-C2 relationship is preserved. Visualized superior ribs are intact. Straightening of cervical lordosis which may be due to patient positioning and/or concurrent muscle spasms. Moderate multilevel cervical spondylosis. Soft tissues: Prevertebral soft tissues are normal in thickness. No paravertebral hematomas. No apical pneumothoraces. IMPRESSION: CT cervical spine without acute fracture or traumatic malalignment. Moderate multilevel cervical spondylosis. Mild straightening of normal cervical lordosis likely related to positioning and/or concurrent muscle spasms. Dictated by: Pancho Patel M.D. on 01/22/2025 at 23:18 Approved by: Pancho Patel M.D. on 01/22/2025 at 23:20
--- NOTE | 2025-01-22 22:41 | DI.CT.S_ITS ---
PROCEDURE: CT HEAD/BRAIN WO CON INDICATIONS: fall, head injury, on thinners TECHNIQUE: Noncontrast 4.5 mm thick angled axial sections acquired from the foramen magnum to the vertex, with coronal and sagittal reformats. For radiation dose reduction, the following was used: automated exposure control, adjustment of mA and/or kV according to patient size. COMPARISON: [facility], CT, CT HEAD/BRAIN WO CON, 09/08/2024, 9:02. [facility], CT, CT HEAD/BRAIN WO CON, 03/31/2024, 17:47. FINDINGS: Image quality: Diagnostic. CSF spaces: Basal cisterns are patent. No extra-axial fluid collections. The ventricles are symmetric in size and shape. Brain: No intracranial bleeds or masses. There is cerebral volume loss for age, with resultant ventricular and sulcal prominence. There are periventricular and deep white matter chronic small vessel ischemic changes. There is intracranial internal carotid artery atherosclerosis. Skull and face: Calvarium and visualized facial bones appear intact, without suspicious lesions. Sinuses: Visualized sinuses and mastoids are clear. IMPRESSION: 1. CT head without acute intracranial abnormalities or acute calvarial fractures. 2. Age-related senescent changes and sequela of chronic small vessel ischemic disease. Dictated by: Pancho Patel M.D. on 01/22/2025 at 23:17 Approved by: Pancho Patel M.D. on 01/22/2025 at 23:18
--- NOTE | 2025-01-22 22:41 | ED_ITS ---
HPI - Fall General Chief Complaint: Trauma Stated Complaint: GLF Time Seen by Provider: 01/22/25 22:35 Source: patient, EMS, RN notes reviewed and old records reviewed Mode of arrival: EMS Limitations: no limitations History of Present Illness HPI Narrative: 69-year-old male history of diabetes, Parkinson's, hypertension, dyslipidemia on Plavix who presents with complaint of ground level fall x2. Patient states he does fall occasionally. He states not typical for him to fall twice a day. He did hit his head earlier today and then hit it again this evening. Had a goose egg after the 2nd fall came for evaluation. He denies loss of consciousness. Denies any neck or back pain. No chest pain or shortness of breath. He denies any nausea or vomiting. No dizziness. No abdominal back or flank pain. No other GI or urinary symptoms. He states his Parkinson's has not really been worsening but has not been improving. Patient states no recent medication changes. He states he takes Plavix for his heart no other anticoagulants reported. Patient reports an allergy to morphine with itching. Does smoke daily, uses marijuana. Dr. Rutherford as his primary care physician. Related Data Home Medications Medication Instructions Recorded Confirmed aspirin 81 mg chewable tablet 81 mg PO DAILY 04/27/24 01/05/25 insulin aspart U-100 100 unit/mL 5 unit SUBCUT .COMPLEX PRN 04/27/24 01/05/25 (3 mL) subcutaneous pen (Novolog FlexPen U-100 Insulin aspart) insulin glargine U-300 conc 300 60 unit SUBCUT BID 04/27/24 01/05/25 unit/mL (3 mL) subcutaneous pen nitroglycerin 0.4 mg sublingual 0.4 mg sublingual Q5M PRN 04/27/24 01/05/25 tablet Previous Rx's Medication Instructions Recorded blood-glucose meter #1 ea 01/11/21 Disabled Parking Permit #1 ea 02/15/21 lancets 33 gauge (BD Ultra Fine #100 ea 09/24/22 Lancets) pen needle, diabetic 31 gauge x #100 ea 09/24/2203/17 (Comfort EZ Pen [place]) naproxen 500 mg tablet 500 mg PO BID PRN pain #40 tabs 01/26/24 atorvastatin 80 mg tablet 80 mg PO DAILY #90 tabs 03/22/24 blood sugar diagnostic (Blood #100 ea 03/22/24 Glucose Test strips) levothyroxine 125 mcg tablet 125 mcg PO DAILY #90 tabs 03/22/24 quetiapine 25 mg tablet 25 mg PO BEDTIME #90 tabs 03/22/24 omeprazole 20 mg capsule,delayed 20 mg PO DAILY #30 caps 04/20/24 release flash glucose scanning reader #1 ea 06/20/24 (FreeStyle Timmy 2 [place]) albuterol sulfate 90 mcg/actuation 2 puff inhalation QID PRN 06/30/24 aerosol inhaler (Proventil HFA) shortness of breath #18 grams flash glucose sensor #1 ea 07/14/24 nystatin 100,000 unit/gram topical 1 applic topical TID PRN Tinea 10/18/24 powder cruris #30 grams flash glucose sensor (FreeStyle #6 kits 11/17/24 Timmy 2 Sensor kit) clopidogrel 75 mg tablet 75 mg PO DAILY #90 tabs 11/24/24 bupropion HCl 300 mg 24 hr tablet, 300 mg PO DAILY #90 tabs 11/28/24 extended release nicotine 14 mg/24 hr daily 1 patch transdermal Q24H nicotine 12/01/24 transdermal patch cessation #28 ea semaglutide 1 mg/dose (4 mg/3 mL) 1 mg (0.75 mL) SUBCUT QWEEK #3 mL 12/01/24 subcutaneous pen injector ezetimibe 10 mg tablet 10 mg PO DAILY #90 tabs 12/02/24 ibuprofen 600 mg tablet 600 mg PO Q8H PRN pain #90 tabs 12/02/24 metoprolol succinate 25 mg 25 mg PO DAILY #90 tabs 12/02/24 tablet,extended release 24 hr oxycodone 5 mg tablet 5 mg PO TID PRN Pain, Moderate #90 12/22/24 tabs amlodipine 5 mg tablet 5 mg PO DAILY #90 tabs 12/27/24 isosorbide mononitrate 60 mg 60 mg PO DAILY #90 tabs 12/27/24 tablet,extended release 24 hr beclomethasone dipropionate 40 1 inh inhalation BID Shortness Of 01/05/25 mcg/actuation HFA breath activated Breath #10.6 grams aerosol gabapentin 300 mg capsule 600 mg (2 x 300 mg) PO BID #180 01/13/25 caps citalopram 40 mg tablet 40 mg PO DAILY #90 tabs 01/20/25 Allergies Allergy/AdvReac Type Severity Reaction Status Date / Time adhesive Allergy Mild REDNESS/ITC Verified 01/05/25 13:00 HINESS morphine AdvReac ITCHING Verified 01/05/25 13:00 Review of Systems Review of Systems ROS Unobtainable: All systems reviewed & are unremarkable except as noted in HPI and below Patient History Medical History Type 2 diabetes mellitus with mild nonproliferative diabetic retinopathy with macular edema, right eye Major depressive disorder, recurrent, moderate Alcohol dependence, uncomplicated Type 2 diabetes mellitus with diabetic polyneuropathy Tobacco use disorder Adhesive capsulitis Left shoulder pain BPH (benign prostatic hyperplasia) Osteoarthritis of left hip Skin sore Stress incontinence Borderline hyperlipidemia Hip pain Cellulitis Mental health assessment declined Steatosis Bilateral otitis externa Sleep apnea Otitis externa Hearing reduced Screening for malignant neoplasm of colon Type 2 diabetes mellitus History of recurrent TIAs Well adult exam Strain of muscle of right groin region (03/30/18) Chicken pox (1956) Measles (1955) Mumps (1958) Status post myocardial infarction Neuropathy Eczema Chronic cough Depression (2008) Obstructive sleep apnea Gout Shoulder pain Foot pain Chickenpox (1956) Measles (6) Mumps (1958) Kidney disease (2009) GERD (gastroesophageal reflux disease) (2012) Hypothyroidism Hypertension Hyperlipidemia Diabetes (1994) Coronary artery disease (2006) COPD (chronic obstructive pulmonary disease) Surgical History History of repair of left rotator cuff Anesthesia History of heart artery stent (2010) History of heart artery stent (2006) Hx of shoulder surgery (2005) Family History Brother Age: 70 Diabetes mellitus Hyperlipidemia Mother Heart disease Hypertension Hyperlipidemia Diabetes mellitus Grandmother Diabetes mellitus Brother No problems noted. Sister Breast cancer Social History marital status: details: 3 years ago household members: none lives independently: Yes housing: apartment Smoking Status: Current every day smoker Tobacco: How many years used: 45 alcohol intake: current Smoking Status: Current every day smoker tobacco type: cigarettes alcohol intake frequency: 0-2 drinks per day Exam Narrative Exam Narrative: GEN: Patient appears in mild distress. HEAD: Patient has a hematoma with a mild amount of ecchymosis at the right posterior parietal region no raccoon/Garduno sign. NECK: Nontender, painless range of motion, trachea midline Negative for Nexus criteria, midline line tenderness, distracting injury, altered mental status, neuro deficit, recent EtOH. EYES: PERRLA, EOMI ENT: External inspection normal, trachea is midline, TM's are normal no hemotypanum, Nares are clear, no septal hematoma, no dental or oral injury, airway is normal and with normal occlusion, No bony tenderness RESP: Chest is nontender and has symmetric movement, no ecchymosis, breath sounds are normal no crackles, wheezes or rales CVS: Heart sounds are normal, no murmur noted, No JVD. ABG/GI: Nontender, soft, normal bowel sounds, no distention, no organomegaly, pelvic rock is negative NEURO: Oriented AOx3, neuro is grossly intact, sensation and motor is normal all 4 extremities moving, cranial nerves II through XII are intact, GCS is 15 PSYCH: Normal mood and affect SKIN: Patient has several very small skin tear on the right elbow and wrist, there clean dry and intact patient has had some bandage, warm and dry, no crepitus and without decubitus BACK: No CVA tenderness, no vertebral tenderness, no step-off's, no crepitus EXT: Atraumatic, hips are nontender, no pedal edema, normal color and temperature, normal range of motion of extremities with normal tendon exam, 2+ pulses in all four extremities Initial Vital Signs Initial Vital Signs: Vital Signs Temperature 98.7 F 01/22/25 22:10 Pulse Rate 71 01/22/25 22:10 Respiratory Rate 16 01/22/25 22:10 Blood Pressure 122/75 01/22/25 22:10 Pulse Oximetry 95 01/22/25 22:10 Oxygen Delivery Method Room Air 01/22/25 22:10 Course Orders Ordered: ED Orders 01/22/25 22:41 CT cervical spine wo con Stat CT head/brain wo con Stat 01/22/25 23:00 CBC Auto Diff [Complete Blood Count AUTO DIFF] Stat 01/22/25 23:19 CMP [Comprehensive Metabolic Panel] Stat Vital Signs Vital signs: Vital Signs - 8 hr 01/22/25 22:30 01/22/25 22:30 01/22/25 22:56 Pulse Rate 71 74 Respiratory Rate 16 19 Blood Pressure 133/81 Pulse Oximetry 96 95 Oxygen Delivery Method 01/22/25 22:56 01/22/25 23:00 01/22/25 23:30 Pulse Rate 71 74 Respiratory Rate 20 23 Blood Pressure 125/98 H Pulse Oximetry 96 94 Oxygen Delivery Method 01/23/25 00:00 01/23/25 00:30 01/23/25 00:45 Pulse Rate 72 71 72 Respiratory Rate 16 10 L 20 Blood Pressure Pulse Oximetry 93 95 95 Oxygen Delivery Method Room Air 01/23/25 00:45 Pulse Rate Respiratory Rate Blood Pressure 146/80 H Pulse Oximetry Oxygen Delivery Method MDM - Fall Lab Data 01/22/25 23:00 01/22/25 23:19 Labs: Lab Results 01/22/25 01/22/25 Range/Units 23:00 23:19 WBC 9.6 (4.5-11.0) X10^3/uL RBC 3.99 L (4.5-5.9) X10^6/uL Hgb 12.4 L (13.5-17.5) g/dL Hct 34.9 L (41-53) % MCV 87.3 (80-100) fL MCH 31.0 (26-34) PG MCHC 35.5 (30-36) % RDW 15.0 H (11.6-14.8) % Plt Count 258 (150-400) X10^3/uL Neut % (Auto) 74.4 (50-75) % Lymph % (Auto) 16.7 L (25-40) % [place] % (Auto) 6.5 (3-14) % Eos % (Auto) 1.7 L (2-4) % Baso % (Auto) 0.7 (0-2) % Neut # (Auto) 7200 H (8582-4216) /uL Lymph # (Auto) 1600 (2428-7224) /uL [place] # (Auto) 600 (0-900) /uL Eos # (Auto) 200 (0-450) /uL Baso # (Auto) 100 (0-100) /uL Sodium 136 L (137-145) mmol/L Potassium 4.3 (3.4-5.1) mmol/L Chloride 104 (98-107) mmol/L Carbon Dioxide 26 (22-32) mmol/L BUN 18 (9-20) mg/dL Creatinine 1.00 (0.66-1.25) mg/dL Estimated GFR > 60 (>60) mL/min BUN/Creatinine Ratio 18.0 (6-22) Glucose 108 (80-110) mg/dL Calcium 8.9 (8.4-10.2) mg/dL Total Bilirubin 0.4 (0.2-1.3) mg/dL AST 32 (17-59) IU/L ALT 22 (<50) IU/L Alkaline Phosphatase 78 (38-126) U/L Total Protein 7.1 (6.3-8.2) g/dL Albumin 3.7 (3.5-5.0) g/dL Globulin 3.4 (1.7-4.1) g/dL Albumin/Globulin Ratio 1.1 (1.0-2.8) MDM Narrative Medical decision making narrative: 69-year-old male on Plavix had to fall striking his head today no loss of consciousness he does not appreciate any other new weakness or changes does note he has Parkinson's he does fall occasionally but not quite this frequently sole obtain labs. Plan for head CT and CT cervical spine based on age and anticoagulants. Patient was unsure of his tetanus status but appears was updated in 2020. Head CT no acute intracranial abnormalities or acute calvarial fractures age- related senescent changes sequela of chronic small-vessel ischemic disease. CT cervical CT cervical spine without acute fracture or traumatic malalignment. Moderate multilevel cervical spondylosis. Mild straightening of normal cervical lordosis likely related to positioning and/or concurrent muscle spasms. Lab white count is 9.6 hemoglobin is 12.4 consistent with priors platelets are 258. Chemistries are appropriate with normal creatinine, glucose is 108. Patient transfer at home and uses wheelchair. He states he does not really ambulate. He feels comfortable with discharge has reassuring exam reviewed his findings. Discharge Plan Departure Patient Disposition: Home Clinical Impression: Scalp hematoma, Fall Instructions: Closed Head Injury Activity Restrictions/Additional Instructions: Follow up for recheck as needed. I reviewed your records your tetanus was updated in 2020. Please return for new or worsening symptoms, severe headaches, chest pain or shortness of breath, new neck or back pain, recurrent falls or weakness, persistent vomiting, new numbness tingling or weakness or other new or concerning changes. Prescriptions: No Action (DME) blood-glucose meter Kit See Rx Instructions .ROUTE .MEDSUPPLY Qty: 1 0RF Rx Instructions: Use to test blood glucose BID (DME) Disabled Parking Permit See Rx Instructions .ROUTE .MEDSUPPLY Qty: 1 0RF Rx Instructions: Valid for 5 years (DME) pen needle, diabetic [Comfort EZ Pen [place]] 31 gauge x 5/16 needle See Dose Instructions .ROUTE .MEDSUPPLY Qty: 100 5RF Dose Instruction: As directed Rx Instructions: Use to inject insulin 5 times per day (DME) lancets [BD Ultra Fine Lancets] 33 gauge misc See Rx Instructions .ROUTE .MEDSUPPLY Qty: 100 6RF Rx Instructions: Use to test blood glucose twice daily atorvastatin 80 mg tablet 80 mg PO DAILY Qty: 90 3RF (DME) Blood Glucose Test Strip See Rx Instructions .ROUTE .MEDSUPPLY Qty: 100 6RF Rx Instructions: Use to test blood glucose twice daily. levothyroxine 125 mcg tablet 125 mcg PO DAILY Qty: 90 0RF quetiapine 25 mg tablet 25 mg PO BEDTIME Qty: 90 3RF omeprazole 20 mg capsule,delayed release(DR/EC) 20 mg PO DAILY Qty: 30 3RF (DME) FreeStyle Timmy 2 [place] Misc See Rx Instructions .ROUTE .MEDSUPPLY Qty: 1 12RF Rx Instructions: As directed albuterol sulfate [Proventil HFA] 90 mcg/actuation HFA aerosol inhaler 2 puff INHALATION QID PRN (Reason: shortness of breath) Qty: 18 5RF (DME) flash glucose sensor Kit See Rx Instructions .Route Qty: 1 6RF Rx Instructions: Use to check blood sugars twice daily. nystatin 100,000 unit/gram powder 1 applic topical TID PRN (Reason: Tinea cruris) Qty: 30 1RF (DME) FreeStyle Timmy 2 Sensor Kit See Rx Instructions .ROUTE .COMPLEX Qty: 6 3RF Dose Instruction: USE TO CHECK BLOOD SUGAR TWICE DAILY; CHANGE SENSOR EVERY 14 DAYS DIRECTED Rx Instructions: USE TO CHECK BLOOD SUGAR TWICE DAILY; CHANGE SENSOR EVERY 14 DAYS DIRECTED clopidogrel 75 mg tablet 75 mg PO DAILY Qty: 90 1RF bupropion HCl 300 mg tablet extended release 24 hr 300 mg PO DAILY Qty: 90 3RF ezetimibe 10 mg tablet 10 mg PO DAILY Qty: 90 3RF ibuprofen 600 mg tablet 600 mg PO Q8H PRN (Reason: pain) Qty: 90 3RF metoprolol succinate 25 mg tablet extended release 24 hr 25 mg PO DAILY Qty: 90 3RF oxycodone 5 mg tablet 5 mg PO TID PRN (Reason: Pain, Moderate) Qty: 90 0RF Rx Instructions: Cervical Spondylolysis M72.02 amlodipine 5 mg tablet 5 mg PO DAILY Qty: 90 3RF isosorbide mononitrate 60 mg tablet extended release 24 hr 60 mg PO DAILY Qty: 90 3RF gabapentin 300 mg capsule 600 mg PO BID Qty: 180 2RF citalopram 40 mg tablet 40 mg PO DAILY Qty: 90 3RF aspirin 81 mg tablet,chewable 81 mg PO DAILY nitroglycerin 0.4 mg tablet, sublingual 0.4 mg sublingual Q5M PRN Rx Instructions: do not exceed 3 doses per episode Novolog FlexPen U-100 Insulin 100 unit/mL (3 mL) insulin pen 5 unit SUBCUT .COMPLEX PRN Rx Instructions: 5 units subcutaneously 5 units a.c. t.i.d. depending on carbohydrate content of meal PRN; insulin glargine U-300 conc 300 unit/mL (3 mL) insulin pen 60 unit SUBCUT BID Rx Instructions: 60 units as of 04/26 beclomethasone dipropionate 40 mcg/actuation HFA aerosol breath activated 1 inh Inhalation BID Qty: 10.6 5RF naproxen 500 mg tablet 500 mg PO BID PRN (Reason: pain) Qty: 40 0RF Ozempic 1 mg/dose (4 mg/3 mL) pen injector 1 mg SUBCUT QWEEK Qty: 3 6RF nicotine 14 mg/24 hr patch 24 hour 1 patch transdermal Q24H Qty: 28 3RF Referrals: Gasper Rutherford DO [Primary Care Provider] - Stand Alone Forms: Patient Portal/API/Survey
[2025-01-22 23:06] LABS: Add Manual Diff / Slide Review NO; Basophils Absolute Auto 100 /uL (0-100); Basophils Percent Auto 0.7 % (0-2); Eosinophils Absolute Auto 200 /uL (0-450); Eosinophils Percent Auto 1.7 % (2-4); Hematocrit 34.9 % (41-53); Hemoglobin 12.4 g/dL (13.5-17.5); Lymphocytes Absolute Auto 1600 /uL (1100-4500); Lymphocytes Percent Auto 16.7 % (25-40); Mean Corpuscular HGB Conc 35.5 % (30-36); Mean Corpuscular Volume 87.3 fL (80-100); Monocytes Absolute Auto 600 /uL (0-900); Monocytes Percent Auto 6.5 % (3-14); Neutrophils Absolute Auto 7200 /uL (1500-7000); Neutrophils Percent Auto 74.4 % (50-75); Platelet Count 258 X10^3/uL (150-400); Red Blood Cell Count 3.99 X10^6/uL (4.5-5.9); White Blood Cell Count 9.6 X10^3/uL (4.5-11.0)
[2025-01-22 23:50] LABS: Alanine Aminotransferase 22 IU/L (<50); Albumin 3.7 g/dL (3.5-5.0); Albumin Globulin Ratio 1.1 (1.0-2.8); Alkaline Phosphatase 78 U/L (38-126); Aspartate Aminotransferase 32 IU/L (17-59); Bilirubin Total 0.4 mg/dL (0.2-1.3); Blood Urea Nitrogen 18 mg/dL (9-20); Calcium 8.9 mg/dL (8.4-10.2); Carbon Dioxide 26 mmol/L (22-32); Chloride 104 mmol/L (98-107); Estimated Glomerular Filt Rate > 60 mL/min (>60); Globulin 3.4 g/dL (1.7-4.1); Glucose 108 mg/dL (80-110); HEMOLYSIS < 15 (0-50); Potassium 4.3 mmol/L (3.4-5.1); Sodium 136 mmol/L (137-145); Total Protein 7.1 g/dL (6.3-8.2)
[2025-01-23] VITALS: PULSE 72; RESP 16; O2SAT 93
[2025-01-23 00:30] VITALS: PULSE 71; RESP 10; O2SAT 95
[2025-01-23 00:45] VITALS: BP 146/80; PULSE 72; RESP 20; O2SAT 95
== END 2025-01-23 01:06 | disposition home or self-care (01) ==
PROVIDERS: Emergency Provider Emergency Medicine; PCP Family Medicine
DX: S00.03XA Contusion of scalp, initial encounter (principal); G20.A1 Parkinson's disease without dyskinesia, without mention of fluctuations; W18.30XA Fall on same level, unspecified, initial encounter; Z91.81 History of falling; Z79.02 Long term (current) use of antithrombotics/antiplatelets
CPT/HCPCS: 36415; 70450; 72125; 80053; 85025; 99283; 99284; 99291

== ENCOUNTER → 2025-03-10 09:44 | Outpatient (CLI) | payer OTHER, MEDICAID, SELFPAY ==
[2024-12-01 15:43] VITALS: BMI 33.9
--- NOTE | 2025-03-10 17:21 | DIAB.MNTFU ---
Follow-up Diabetes Medical Nutrition Therapy Assessment Name: Carlos Randall (Andres) Date: 03/10/25 Time: 10-8930a Dx: Type II Diabetes Provider: Krish Campos presents for follow-up DM visit. Much improved BG with elimination of lows. No longer needing meal time insulin and reduced Lantus. previously RD thought he was taking Lantus 1x per day. He has been taking it BID. Down to 40-50u BID, sometimes skips doses based on BG. Endorses wt loss with diet changes. Recent ED visit at [facility] for n/v/d related to new diagnosis of diverticulitis. Per ED paperwork pt brought today, clear liquid low fiber diet was recommended. States he has not been following this, but symptoms have subsided and he is taking rx'd antibiotic. Last colonoscopy 15-20 years ago. Plans to discuss with PCP next month. encouraged call to PCP office for potential sooner visit prn. Eating 2-3x per day. Diet recall: 2p: MOW or veggie stirfry with noodles sn: sf chocolate pudding 6-7p same as 2p sn: nothing or popcorn or cookies infrequently States he has not called podiatry. Friend trimmed his toe nails this week. Reports not having a neurologist. Does have a referral for both of the above services. Provided contact info. Anthropometrics: Ht: 67 Wt: 165# reported 03/2025 170# 12/2024 Reports personal goal of 160#. Physical Activity: Started home PT exercises Self-Monitoring Blood Glucose: Wears a Libre2. Does not want to upgrade. Advised that FSL2 will be obsolete likely. TIR within goal. Reduced lows. TIR: 2% very high 17% high 81% in range 0% low 0% very low avmg/dl GMI: 6.9% variance 24.1% Last TIR: 2% very high 23% high 74% in range 1% low 0% very low avmg/dl GMI: 6.8% variance 30.7% Diabetes Medications: 1mg Ozempic 0-50u Lantus BID 5u Aspart TID--- d/c Pertinent Labs: HgA1c: 7.7% 07/2024 6.7% 11/2024 Past Medical History: (Last Reviewed 10/10/24 @ 04:10 by Giselle Chavarria MD) Adhesive capsulitis Alcohol dependence, uncomplicated Bilateral otitis externa Borderline hyperlipidemia BPH (benign prostatic hyperplasia) Cellulitis Chicken pox (1956) Chickenpox (1956) Chronic cough COPD (chronic obstructive pulmonary disease) Coronary artery disease (2006) [place] 2007, coronary stent 2006, 2009, 2020 Depression (2008) Diabetes (1994) Eczema Foot pain GERD (gastroesophageal reflux disease) (2012) Gout Hearing reduced Hip pain History of recurrent TIAs Hyperlipidemia Hypertension Hypothyroidism Kidney disease (2009) Left shoulder pain Major depressive disorder, recurrent, moderate Measles (1955) Measles (1955) Mental health assessment declined Mumps (1958) Mumps (1958) Neuropathy Obstructive sleep apnea Osteoarthritis of left hip Otitis externa Screening for malignant neoplasm of colon Shoulder pain Skin sore Sleep apnea Status post myocardial infarction Steatosis Strain of muscle of right groin region (03/30/18) Stress incontinence Tobacco use disorder Type 2 diabetes mellitus Type 2 diabetes mellitus with diabetic polyneuropathy Well adult exam Nutrition Rx: Carbohydrates: Meal:45g Snack:15-30g Nutrition Diagnosis: - Nutrition and food related knowledge deficit r/t needing ed on treating lows aeb pt report of high CHO, but mixed macro treatment- improved - Predicted excessive CHO intake r/t food access/choices aeb diet recall- improved Intervention: This participant was very receptive. Provided appropriate educational handouts. Discussed the following topics: Diverticulitis MNT Encouraged colonoscopy prn and visit with PCP Discouraged excessive wt loss Provided podiatry and neurology contact info from referrals Created SMART goals for patient self-care and success. Goals: Write down insulin doses on provided calendars- d/c Call podiatry- in progress Call neurology- new Follow-up prn per pt request. Encouraged Andres to call my office for follow-up or questions prn. Current diabetes care is well managed with mitigated lows and in range time. If anything changes, encouraged him to call and schedule. He agreed to this plan. Kimberly Beckford RDN, [facility] Certified Diabetes Care and [employer] Contact Printer P: [phone] Thank you for this referral
== END ==
LOC: DIET 09:45
PROVIDERS: PCP Family Medicine; Referring Provider Family Medicine
DX: E11.9 Type 2 diabetes mellitus without complications (principal); Z71.3 Dietary counseling and surveillance; Z79.85 Long-term (current) use of injectable non-insulin antidiabetic drugs; Z79.84 Long term (current) use of oral hypoglycemic drugs
CPT/HCPCS: 97803

== ENCOUNTER → 2025-04-13 15:37 | Outpatient (CLI) | payer OTHER, MEDICAID, SELFPAY ==
[2024-12-01 15:43] VITALS: BMI 33.9
[2025-04-13 16:27] LABS: HEMOLYSIS < 15 (0-50); Iron 60 ug/dL (49-181)
[2025-04-13 16:38] LABS: Percent Iron Saturation 22 % (20-50); Total Iron Binding Capacity 268 ug/dL (261-462); Transferrin 208 mg/dL (206-381)
[2025-04-13 17:16] LABS: Vitamin B12 536 pg/mL (239-931)
[2025-04-13 17:30] LABS: HIV 1 & 2 Ab/Ag 4th Gen Combo NEGATIVE (NEGATIVE); Hep C Virus Ab w/Reflex Quant NEGATIVE s/c (NEGATIVE)
== END ==
PROVIDERS: PCP Family Medicine; Referring Provider Family Medicine; Visit Provider Family Medicine
DX: Z12.11 Encounter for screening for malignant neoplasm of colon (principal); R63.4 Abnormal weight loss; G20.B1 Parkinson's disease with dyskinesia, without mention of fluctuations
CPT/HCPCS: 36415; 82607; 83540; 83550; 84443; 86803; 87389

== ENCOUNTER → 2025-04-25 15:46 | Outpatient (CLI) | payer OTHER, MEDICAID, SELFPAY ==
[2024-12-01 15:43] VITALS: BMI 33.9
--- NOTE | 2025-04-25 15:51 | DI.US.S_ITS ---
PROCEDURE: US ABD AORTA ANEURYSM SCREEN INDICATIONS: screening TECHNIQUE: Real time scanning was performed of the aorta and iliac arteries, with image documentation. COMPARISON: None. FINDINGS: Aorta: Proximal aortic diameter measures 1.9 cm. Mid-aorta measures 1.8 cm. Distal aortic diameter is 1.5 cm. Iliac arteries: Right common iliac artery measures 1.4 cm. Left common iliac artery measures 1.1 cm. IMPRESSION: Ectatic aorta. Five year sonographic follow-up is recommended per consensus guidelines. Dictated by: Emerson Guido M.D. on 04/26/2025 at 14:51 Approved by: Emerson Guido M.D. on 04/26/2025 at 14:52
--- NOTE | 2025-04-25 15:51 | DI.CT.S_ITS ---
PROCEDURE: CT CHEST WO CON INDICATIONS: screening TECHNIQUE: Noncontrast 2.0-2.5 mm thick sections acquired from the pulmonary apices to the posterior costophrenic angles. 7 mm thick axial MIP, and 5 mm coronal and sagittal reformats were then acquired. For radiation dose reduction, the following was used: automated exposure control, adjustment of mA and/or kV according to patient size. COMPARISON: [facility], CT, CT CHEST WO CON, 12/22/2018, 3:37. FINDINGS: Image quality: Diagnostic. Lower Neck: No enlarged lymph nodes. Thyroid: No thyroid nodules which require sonographic follow up, per consensus guidelines. Axillae: No enlarged lymph nodes. Chest Wall: Mild gynecomastia. Bones: Diffuse idiopathic skeletal hyperostosis. Questionable syndesmophytes. Lungs and Pleura: Diffuse peripheral reticulation with honeycombing. No received air trapping. No ground-glass. Heart: Heart size is normal. No pericardial effusion. Three-vessel coronary calcifications with presumed stents. Thoracic Vessels: Dilated main pulmonary artery. Mediastinum and Seda: No enlarged lymph nodes. Esophagus: No wall thickening. No hiatal hernia. Upper Abdomen: Visualized upper abdomen solid organs and bowel loops appear normal. IMPRESSION: No suspicious pulmonary nodules. LUNG-RADS 1; continued annual screening, if eligible. Clinically Significant Non-pulmonary Findings: Diffuse interstitial lung disease, UIP pattern. Recommend pulmonology referral. Questionable syndesmophytes, which may indicate ankylosing spondylitis. Dictated by: Emerson Guido M.D. on 04/26/2025 at 14:46 Approved by: Emerson Guido M.D. on 04/26/2025 at 14:51
== END ==
LOC: CT 15:48
PROVIDERS: PCP Family Medicine; Referring Provider Family Medicine; Visit Provider Family Medicine
DX: Z12.2 Encounter for screening for malignant neoplasm of respiratory organs (principal); F17.210 Nicotine dependence, cigarettes, uncomplicated; J84.9 Interstitial pulmonary disease, unspecified; Z13.6 Encounter for screening for cardiovascular disorders; I77.819 Aortic ectasia, unspecified site; I25.10 Atherosclerotic heart disease of native coronary artery without angina pectoris; N17.9 Acute kidney failure, unspecified
CPT/HCPCS: 71250; 76706

== ENCOUNTER 2025-07-06 19:09 | Emergency (ER) | payer OTHER, MEDICAID, SELFPAY ==
[2024-12-01 15:43] VITALS: BMI 33.9
[2025-07-06 19:16] VITALS: BP 177/81; PULSE 81; RESP 18; TEMP 36.9; O2SAT 94; BMI 27.4
--- NOTE | 2025-07-06 19:27 | DI.US.S_ITS ---
PROCEDURE: US SCROTUM INDICATIONS: left testicle pain/swelling x 1 week TECHNIQUE: Real-time scanning was performed of the scrotum and testicles, with image documentation. Color and pulse Doppler interrogation was performed of both testicles. COMPARISON: None. FINDINGS: Right: Testicle is normal in size at 2.5 x 1.9 x 2.6 cm, and homogenous in echotexture. Epididymis is normal in overall size and morphology. No hydrocele or varicoceles. Overlying scrotal skin is normal in thickness. Left: Testicle is normal in size at 3.0 x 1.9 x 3.0 cm, and homogeneous in echotexture. Epididymis is normal in overall size and morphology. Epididymal head cyst measuring 1.3 centimeters. No hydrocele or varicoceles. Overlying scrotal skin is normal in thickness. Doppler: Color and pulse Doppler demonstrate normal and symmetric arterial flow in both testicles. IMPRESSION: Normal appearance of the testes and epididymides. Dictated by: Alfredo Bryant M.D. on 07/06/2025 at 20:44 Approved by: Alfredo Bryant M.D. on 07/06/2025 at 20:45
[2025-07-06 21:11] VITALS: PULSE 83; O2SAT 99
[2025-07-06 21:12] VITALS: BP 110/69; PULSE 84; O2SAT 98
[2025-07-06 23:14] VITALS: PULSE 78; O2SAT 94
[2025-07-06 23:20] LABS: Appearance Urine UA CLEAR; Bilirubin Urine UA NEGATIVE (NEGATIVE); Color Urine UA YELLOW; Glucose Urine UA NEGATIVE (Negative); Ketones Urine UA NEGATIVE (NEGATIVE); Leukocyte Esterase Urine UA NEGATIVE (NEGATIVE); Nitrite Urine UA NEGATIVE (Negative); Occult Blood Urine UA TRACE-INTACT (Negative); Protein Urine UA 3+ (Negative); Specific Gravity Urine UA 1.015 (1.000-1.035); Urobilinogen Urine UA 2.0 E.U./dL (0.2); pH Urine UA 6.5 (4.5-8.0)
[2025-07-06 23:30] VITALS: PULSE 78; O2SAT 94
[2025-07-06 23:36] LABS: Culture Indicated Urine Cult Not Indicated
--- NOTE | 2025-07-06 23:38 | ED_ITS ---
HPI - Male Genitourinary General Chief complaint: Urogenital-Male Stated complaint: Testicle pain x7 days Time Seen by Provider: 07/06/25 23:34 Source: patient and EMS Mode of arrival: EMS Limitations: no limitations History of Present Illness HPI Narrative: 69-year-old male history of coronary artery disease with stents x4 on Plavix, patient presents with complaint of left scrotal pain/swelling. Patient notes he thinks something stranding in the left side secondary something he is on his brief. Patient states he does not normally look at the area. States he has had redness and irritation for several months has been using a topical antifungal but has not really improved. Patient states the little pain is new on the left side and localized. Denies fevers or chills. No vomiting. No abdominal back or flank pain. States he has been urinating normally, no dysuria urgency or frequency. Denies issues with bowel movements. Related Data Home Medications ?Medication ?Instructions ?Recorded ?Confirmed aspirin 81 mg chewable tablet 81 mg PO DAILY 04/27/24 05/18/25 insulin aspart U-100 100 unit/mL 5 unit SUBCUT .COMPLE X PRN 04/27/24 05/18/25 (3 mL) subcutaneous pen (Novolog FlexPen U-100 Insulin aspart) insulin glargine U-300 conc 300 60 unit SUBCUT BID 05/18/25 unit/mL (3 mL) subcutaneous pen nitroglycerin 0.4 mg sublingual 0.4 mg sublingual Q5M PRN 04/27/24 05/18/25 tablet Previous Rx's ?Medication ?Instructions ?Recorded blood-glucose meter #1 ea 01/11/21 Disabled Parking Permit #1 ea 02/15/21 lancets 33 gauge (BD Ultra Fine #100 ea 09/24/22 Lancets) pen needle, diabetic 31 gauge x #100 ea 09/24/2203/17 (Comfort EZ Pen Grandy) naproxen 500 mg tablet 500 mg PO BID PRN pain #40 t abs 01/26/24 blood sugar diagnostic (Blood #100 ea 03/22/24 Glucose Test strips) levothyroxine 125 mcg tablet 125 mcg PO DAILY #90 tabs 03/22/24 quetiapine 25 mg tablet 25 mg PO BEDTIME #90 tabs flash glucose scanning reader #1 ea 06/20/24 (FreeStyle Timmy 2 [place]) albuterol sulfate 90 mcg/actuation 2 puff inhalation Q ID PRN 06/30/24 aerosol inhaler (Proventil HFA) shortness of breath #1 8 grams flash glucose sensor #1 ea 07/14/24 clopidogrel 75 mg tablet 75 mg PO DAILY #90 tabs 11/03 01/24 bupropion HCl 300 mg 24 hr tablet, 300 mg PO DAILY #90 tabs 11/28/24 extended release nicotine 14 mg/24 hr daily 1 patch transdermal Q24H ni cotine 12/01/24 transdermal patch cessation #28 ea ezetimibe 10 mg tablet 10 mg PO DAILY #90 tabs 11/04 11/26 ibuprofen 600 mg tablet 600 mg PO Q8H PRN pain #90 t abs 12/02/24 metoprolol succinate 25 mg 25 mg PO DAILY #90 tabs tablet,extended release 24 hr amlodipine 5 mg tablet 5 mg PO DAILY #90 tabs 12/27 isosorbide mononitrate 60 mg 60 mg PO DAILY #90 tabs 0 12/27/24 tablet,extended release 24 hr beclomethasone dipropionate 40 1 inh inhalation BID Sh ortness Of 01/05/25 mcg/actuation HFA breath activated Breath #10.6 grams aerosol citalopram 40 mg tablet 40 mg PO DAILY #90 tabs 01/01 11/26 nystatin 100,000 unit/gram topical 1 applic topical TI D PRN Tinea 02/13/25 powder cruris #30 grams doxepin 10 mg capsule 10 mg PO BEDTIME #30 caps blood-glucose sensor (FreeStyle #9 ea 04/12/25 Timmy 3 Plus Sensor device) blood-glucose sensor (FreeStyle #1 ea 04/13/25 Timmy 3 Plus Sensor device) gabapentin 300 mg capsule 600 mg (2 x 300 mg) PO BID # 180 04/21/25 caps blood-glucose sensor (FreeStyle #6 ea 05/08/25 Timmy 3 Plus Sensor device) omeprazole 20 mg capsule,delayed 20 mg PO DAILY #90 ca ps 05/10/25 release atorvastatin 80 mg tablet 80 mg PO DAILY #90 tabs 05/02 semaglutide 1 mg/dose (4 mg/3 mL) 1 mg (0.75 mL) SUBCU T QWEEK #9 ea 05/11/25 subcutaneous pen injector (Ozempic) oxycodone 5 mg tablet 5 mg PO TID PRN Pain, Modera te #90 06/23/25 tabs doxycycline hyclate 100 mg tablet 100 mg PO BID #20 ta bs 07/07/25 Allergies Allergy/AdvReac Type Severity Reaction Status Date / Time adhesive Allergy Mild REDNESS/ITC Verified 05/18/25 14:40 HINESS morphine AdvReac ITCHING Verified 05/18/25 14:40 Review of Systems Review of Systems ROS Unobtainable: All systems reviewed & are unremarkable except as noted in HPI and below Patient History Medical History Hypertensive heart disease with heart failure Type 2 diabetes mellitus with other circulatory complications Unintentional weight loss of 10% body weight within 6 months Type 2 diabetes mellitus with mild nonproliferative diabetic retinopathy with macular edema, right eye Major depressive disorder, recurrent, moderate Alcohol dependence, uncomplicated Type 2 diabetes mellitus with diabetic polyneuropathy Tobacco use disorder Adhesive capsulitis Left shoulder pain BPH (benign prostatic hyperplasia) Osteoarthritis of left hip Skin sore Stress incontinence Borderline hyperlipidemia Hip pain Cellulitis Mental health assessment declined Steatosis Bilateral otitis externa Sleep apnea Otitis externa Hearing reduced Screening for malignant neoplasm of colon Type 2 diabetes mellitus History of recurrent TIAs Well adult exam Strain of muscle of right groin region (03/30/18) Chicken pox (1957) Measles (6) Mumps (9) Status post myocardial infarction Neuropathy Eczema Chronic cough Depression (2008) Obstructive sleep apnea Gout Shoulder pain Foot pain Chickenpox (1957) Measles (1956) Mumps (1959) Kidney disease (2009) GERD (gastroesophageal reflux disease) (2012) Hypothyroidism Hypertension Hyperlipidemia Diabetes (1994) Coronary artery disease (2006) COPD (chronic obstructive pulmonary disease) Surgical History History of repair of left rotator cuff Anesthesia History of heart artery stent (2010) History of heart artery stent (2006) Hx of shoulder surgery (2005) Family History Brother Age: 70 Diabetes mellitus Hyperlipidemia Mother Heart disease Hypertension Hyperlipidemia Diabetes mellitus Grandmother Diabetes mellitus Brother No problems noted. Sister Breast cancer Social History marital status: details: 3 years ago household members: none lives independently: Yes housing: apartment Smoking Status: Current every day smoker Tobacco: How many years used: 45 alcohol intake: current Smoking Status: Current every day smoker tobacco type: cigarettes alcohol intake frequency: 0-2 drinks per day Exam Narrative Exam Narrative: GENERAL: Alert and oriented x three, male mild distress HEENT: Head normocephalic, atraumatic, EOMI, pupils reactive, face symmetric, moist mucous membranes NECK: Supple, full range of motion CARDIOVASCULAR: Regular rate and rhythm without murmurs, rubs or gallops. RESPIRATORY: Breath sounds equal bilaterally, no wheezes rales or rhonchi. ABDOMEN: Soft, nontender. Normoactive bowel sounds all 4 quadrants. No guarding or rebound, rigidity, no mass : No CVA tenderness. Male: normal external examination penis, patient's has bilateral scrotal swelling with erythema of the bilateral scrotum and into the inguinal creases, there some scalloping of the edges, there was no drainage, no fluid collection, no fluctuance, no masses or induration, no penile discharge or lesions, patient has some tenderness of the left testicle, cremasteric reflex intact, no inguinal hernias noted. EXTREMITIES: Normal range of motion, no clubbing or edema. Neurovascularly intact NEUROLOGICAL: Cranial nerves II through XII grossly intact. Moving all extremities SKIN: Warm, dry, no petechiae, no rashes or lesions otherwise noted. Initial Vital Signs Initial Vital Signs: Vital Signs Temperature 98.5 F 07/06/25 19:16 Pulse Rate 81 07/06/25 19:16 Respiratory Rate 18 07/06/25 19:16 Blood Pressure 177/81 H 07/06/25 19:16 Pulse Oximetry 94 07/06/25 19:16 Oxygen Delivery Method Room Air 07/06/25 19:16 Course Orders Ordered: ED Orders 07/06/25 19:27 US scrotum Stat 07/06/25 23:06 Chlamydia Gonorrhea PCR -URINE Stat Urinalysis and Microscopic Stat Discontinued Medications Doxycycline Hyclate (Doxycycline Hyclate 100 Mg Tablet) 100 mg PO NOW ONE Stop: 07/06/25 23:59 Last Admin: 07/07/25 00:44 Dose: 100 mg Documented By: ANNAMARIE Ceftriaxone Sodium 500 mg/ (Sodium Chloride) 100 mls @ 200 mls/hr IV NOW ONE Stop: 07/07/25 00:59 Last Infusion: 07/07/25 01:02 Dose: Infused Documented By: Admin: 07/07/25 00:45 Dose: 200 mls/hr Documented By: ANNAMARIE Vital Signs Vital signs: Vital Signs - 8 hr 07/06/25 21:11 07/06/25 21:12 07/06/25 21:12 Pulse Rate 83 84 Blood Pressure 110/69 Pulse Oximetry 99 98 07/06/25 23:14 07/06/25 23:30 07/06/25 23:58 Pulse Rate 78 78 Blood Pressure 139/81 Pulse Oximetry 94 94 07/06/25 23:58 07/07/25 00:00 07/07/25 00:01 Pulse Rate 81 80 Blood Pressure 158/79 H Pulse Oximetry 95 94 07/07/25 00:01 Pulse Rate 82 Blood Pressure Pulse Oximetry 95 MDM - Male Genitourinary Lab Data Labs: Lab Results 07/06/25 Range/Units 23:06 Urine Color Yellow Urine Appearance Clear Urine pH 6.5 (4.5-8.0) Ur Specific [place] 1.015 (1.000-1.035) Urine Protein 3+ H (Negative) Urine Glucose (UA) Negative (Negative) g/dL Urine Ketones Negative (NEGATIVE) Urine Occult Blood Trace-intact (Negative) Urine Nitrate Negative (Negative) Urine Bilirubin Negative (NEGATIVE) Urine Urobilinogen 2.0 H (0.2) E.U./dL Ur Leukocyte Esterase Negative (NEGATIVE) Urine RBC 0-1/hpf (0-5/HPF) Urine WBC None seen (0-5/HPF) Ur Squamous Epith Cells 0-1 /hpf (0-5/HPF) Urine Bacteria None seen (None) Ur Culture Indicated? Cult not indicated Vol Urine Centrifuged 10ml (spun) Ur Chlamydia DNA (PCR) Not detected N gonorrhoeae DNA (PCR) Not detected MDM Narrative Medical decision making narrative: Scrotal ultrasound shows normal appearance of testes and epididymitis, no hydrocele or varicoceles, overlying scrotal skin is normal in thickness. Patient is noted to have a epididymal head cyst measuring 1.3 cm on the left epididymis is normal in overall size and morphology. No hydroceles varicoceles, overlying scrotal skin is normal in thickness. Color and pulsed Doppler demonstrates normal and symmetric arterial flow in both testicles. Urinalysis shows 3+ protein trace blood, negative for leuks negative for nitrates, 1 RBC no white cells 1 squamous no bacteria. Urine gonorrhea/chlamydia negative Patient appears have cellulitis possibly fungal but we will treat with the oral antibiotics. Patient does not have any signs of Marjan's or neck fast. Discussed return precautions. Discharge Plan Departure Patient Disposition: Home Clinical Impression: Cyst of epididymis determined by ultrasound, Cellulitis of scrotum Instructions: DI for Cellulitis -- Adult Activity Restrictions/Additional Instructions: Follow up for rechecked, your ultrasound did show a small cyst in the epididymal region on the left side. You do have 1 lab test pending if this is positive we will reach out with the results. Take oral antibiotics until completed. I would recommend that you continue to use topical antifungal ointment to the skin as well. Make sure you wash the area daily pat dry and keep the areas clean and dry as you can. Prescription sent to [facility] in [place]. Please return if you develop fevers, increasing pain, increasing redness, new drainage, any difficulty with urination, new abdominal back or flank pain or other new or concerning changes. Prescriptions: New doxycycline hyclate 100 mg tablet 100 mg PO BID Qty: 20 0RF No Action (DME) blood-glucose meter Kit See Rx Instructions .ROUTE .MEDSUPPLY Qty: 1 0RF Rx Instructions: Use to test blood glucose BID (DME) Disabled Parking Permit See Rx Instructions .ROUTE .MEDSUPPLY Qty: 1 0RF Rx Instructions: Valid for 5 years (DME) pen needle, diabetic [Comfort EZ Pen Grand[place]] 31 gauge x 5/16 needle See Dose Instructions .ROUTE .MEDSUPPLY Qty: 100 5RF Dose Instruction: As directed Rx Instructions: Use to inject insulin 5 times per day (DME) lancets [BD Ultra Fine Lancets] 33 gauge misc See Rx Instructions .ROUTE .MEDSUPPLY Qty: 100 6RF Rx Instructions: Use to test blood glucose twice daily (DME) Blood Glucose Test Strip See Rx Instructions .ROUTE .MEDSUPPLY Qty: 100 6RF Rx Instructions: Use to test blood glucose twice daily. levothyroxine 125 mcg tablet 125 mcg PO DAILY Qty: 90 0RF quetiapine 25 mg tablet 25 mg PO BEDTIME Qty: 90 3RF (DME) FreeStyle Timmy 2 [place] Misc See Rx Instructions .ROUTE .MEDSUPPLY Qty: 1 12RF Rx Instructions: As directed albuterol sulfate [Proventil HFA] 90 mcg/actuation HFA aerosol inhaler 2 puff INHALATION QID PRN (Reason: shortness of breath) Qty: 18 5RF (DME) flash glucose sensor Kit See Rx Instructions .Route Qty: 1 6RF Rx Instructions: Use to check blood sugars twice daily. clopidogrel 75 mg tablet 75 mg PO DAILY Qty: 90 1RF bupropion HCl 300 mg tablet extended release 24 hr 300 mg PO DAILY Qty: 90 3RF ezetimibe 10 mg tablet 10 mg PO DAILY Qty: 90 3RF ibuprofen 600 mg tablet 600 mg PO Q8H PRN (Reason: pain) Qty: 90 3RF metoprolol succinate 25 mg tablet extended release 24 hr 25 mg PO DAILY Qty: 90 3RF amlodipine 5 mg tablet 5 mg PO DAILY Qty: 90 3RF isosorbide mononitrate 60 mg tablet extended release 24 hr 60 mg PO DAILY Qty: 90 3RF citalopram 40 mg tablet 40 mg PO DAILY Qty: 90 3RF nystatin 100,000 unit/gram powder 1 applic topical TID PRN (Reason: Tinea cruris) Qty: 30 2RF doxepin 10 mg capsule 10 mg PO BEDTIME Qty: 30 1RF (DME) FreeStyle Timmy 3 Plus Sensor Device See Rx Instructions .Route Qty: 9 3RF Rx Instructions: use as directed gabapentin 300 mg capsule 600 mg PO BID Qty: 180 3RF (DME) FreeStyle Timmy 3 Plus Sensor Device See Rx Instructions .Route Qty: 6 3RF Rx Instructions: As directed omeprazole 20 mg capsule,delayed release(DR/EC) 20 mg PO DAILY Qty: 90 0RF Ozempic 1 mg/dose (4 mg/3 mL) pen injector 1 mg SUBCUT QWEEK Qty: 9 3RF atorvastatin 80 mg tablet 80 mg PO DAILY Qty: 90 3RF oxycodone 5 mg tablet 5 mg PO TID PRN (Reason: Pain, Moderate) Qty: 90 0RF Rx Instructions: Cervical Spondylolysis M72.02 aspirin 81 mg tablet,chewable 81 mg PO DAILY nitroglycerin 0.4 mg tablet, sublingual 0.4 mg sublingual Q5M PRN Rx Instructions: do not exceed 3 doses per episode Novolog FlexPen U-100 Insulin 100 unit/mL (3 mL) insulin pen 5 unit SUBCUT .COMPLEX PRN Rx Instructions: 5 units subcutaneously 5 units a.c. t.i.d. depending on carbohydrate content of meal PRN; insulin glargine U-300 conc 300 unit/mL (3 mL) insulin pen 60 unit SUBCUT BID Rx Instructions: 60 units as of 04/26 beclomethasone dipropionate 40 mcg/actuation HFA aerosol breath activated 1 inh Inhalation BID Qty: 10.6 5RF (DME) FreeStyle Timmy 3 Plus Sensor Device See Rx Instructions .Route Qty: 1 3RF Rx Instructions: As directed naproxen 500 mg tablet 500 mg PO BID PRN (Reason: pain) Qty: 40 0RF nicotine 14 mg/24 hr patch 24 hour 1 patch transdermal Q24H Qty: 28 3RF Referrals: Gasper Rutherford DO [Primary Care Provider, Family Practice] Stand Alone Forms: Patient Portal/API
[2025-07-06 23:58] VITALS: BP 139/81; PULSE 81; O2SAT 95
[2025-07-07] VITALS: PULSE 80; O2SAT 94
[2025-07-07 00:01] VITALS: BP 158/79; PULSE 82; O2SAT 95
[2025-07-07] MEDS: DOXYCYCLINE HYCLATE 100 MG TABLET PO (00:44)
[2025-07-07 00:45] LABS: Urine Chlamydia NOT DETECTED; Urine N gonorrhoeae NOT DETECTED
== END 2025-07-07 01:02 | disposition home or self-care (01) ==
PROVIDERS: Emergency Provider Emergency Medicine; PCP Family Medicine
DX: N49.2 Inflammatory disorders of scrotum (principal); N50.3 Cyst of epididymis; Z86.79 Personal history of other diseases of the circulatory system; Z95.5 Presence of coronary angioplasty implant and graft
CPT/HCPCS: 76870; 81001; 87491; 87591; 93976; 96365; 99284; J0696

== ENCOUNTER 2025-08-14 22:35 | Emergency (ER) | payer OTHER, MEDICAID, SELFPAY ==
[2024-12-01 15:43] VITALS: BMI 33.9
[2025-08-14 22:42] VITALS: BP 95/50; PULSE 78; RESP 20; TEMP 36.6; O2SAT 92; BMI 26.6
--- NOTE | 2025-08-15 02:33 | ED_ITS ---
HPI - Wound/Laceration General Chief Complaint: Wound/Laceration Stated Complaint: fell, hit head x 1 month ago thinners Time Seen by Provider: 08/15/25 02:00 Source: patient Mode of arrival: Wheelchair History of Present Illness HPI narrative: 69-year-old male who hit his head about a month ago. That injury is no longer an issue but the patient has been having this discomfort and skin growth round the back of his head. Has gotten worse in the past week and a half. Related Data Home Medications ?Medication ?Instructions ?Recorded ?Confirmed aspirin 81 mg chewable tablet 81 mg PO DAILY 04/27/24 05/18/25 insulin aspart U-100 100 unit/mL 5 unit SUBCUT .COMPLE X PRN 04/27/24 05/18/25 (3 mL) subcutaneous pen (Novolog FlexPen U-100 Insulin aspart) insulin glargine U-300 conc 300 60 unit SUBCUT BID 05/18/25 unit/mL (3 mL) subcutaneous pen nitroglycerin 0.4 mg sublingual 0.4 mg sublingual Q5M PRN 04/27/24 05/18/25 tablet Previous Rx's ?Medication ?Instructions ?Recorded blood-glucose meter #1 ea 01/11/21 Disabled Parking Permit #1 ea 02/15/21 lancets 33 gauge (BD Ultra Fine #100 ea 09/24/22 Lancets) pen needle, diabetic 31 gauge x #100 ea 09/24/2203/17 (Comfort EZ Pen [place]) naproxen 500 mg tablet 500 mg PO BID PRN pain #40 t abs 01/26/24 blood sugar diagnostic (Blood #100 ea 03/22/24 Glucose Test strips) levothyroxine 125 mcg tablet 125 mcg PO DAILY #90 tabs 03/22/24 quetiapine 25 mg tablet 25 mg PO BEDTIME #90 tabs flash glucose scanning reader #1 ea 06/20/24 (Genasysyle Timmy 2 Mineral) albuterol sulfate 90 mcg/actuation 2 puff inhalation Q ID PRN 06/30/24 aerosol inhaler (Proventil HFA) shortness of breath #1 8 grams flash glucose sensor #1 ea 07/14/24 clopidogrel 75 mg tablet 75 mg PO DAILY #90 tabs 11/03 01/24 bupropion HCl 300 mg 24 hr tablet, 300 mg PO DAILY #90 tabs 11/28/24 extended release nicotine 14 mg/24 hr daily 1 patch transdermal Q24H ni cotine 12/01/24 transdermal patch cessation #28 ea ezetimibe 10 mg tablet 10 mg PO DAILY #90 tabs 11/04 11/26 ibuprofen 600 mg tablet 600 mg PO Q8H PRN pain #90 t abs 12/02/24 metoprolol succinate 25 mg 25 mg PO DAILY #90 tabs tablet,extended release 24 hr amlodipine 5 mg tablet 5 mg PO DAILY #90 tabs 12/27 isosorbide mononitrate 60 mg 60 mg PO DAILY #90 tabs 0 12/27/24 tablet,extended release 24 hr beclomethasone dipropionate 40 1 inh inhalation BID Sh ortness Of 01/05/25 mcg/actuation HFA breath activated Breath #10.6 grams aerosol citalopram 40 mg tablet 40 mg PO DAILY #90 tabs 01/01 11/26 nystatin 100,000 unit/gram topical 1 applic topical TI D PRN Tinea 02/13/25 powder cruris #30 grams doxepin 10 mg capsule 10 mg PO BEDTIME #30 caps blood-glucose sensor (FreeStyle #9 ea 04/12/25 Timmy 3 Plus Sensor device) blood-glucose sensor (FreeStyle #1 ea 04/13/25 Timmy 3 Plus Sensor device) blood-glucose sensor (FreeStyle #6 ea 05/08/25 Timmy 3 Plus Sensor device) atorvastatin 80 mg tablet 80 mg PO DAILY #90 tabs 05/02 semaglutide 1 mg/dose (4 mg/3 mL) 1 mg (0.75 mL) SUBCU T QWEEK #9 ea 05/11/25 subcutaneous pen injector (Ozempic) doxycycline hyclate 100 mg tablet 100 mg PO BID #20 ta bs 07/07/25 gabapentin 300 mg capsule 600 mg (2 x 300 mg) PO BID # 120 07/27/25 caps oxycodone 5 mg tablet 5 mg PO TID PRN Pain, Modera te #90 07/27/25 tabs omeprazole 20 mg capsule,delayed 20 mg PO DAILY #90 ca ps 08/11/25 release amoxicillin 875 mg-potassium 1 tab PO BID 7 days #14 t abs 08/15/25 clavulanate 125 mg tablet Allergies Allergy/AdvReac Type Severity Reaction Status Date / Time adhesive Allergy Mild REDNESS/ITC Verified 08/14/25 22:42 HINESS morphine AdvReac ITCHING Verified 08/14/25 22:42 Review of Systems Review of Systems ROS Unobtainable: All systems reviewed & are unremarkable except as noted in HPI and below Patient History Medical History Hypertensive heart disease with heart failure Type 2 diabetes mellitus with other circulatory complications Unintentional weight loss of 10% body weight within 6 months Type 2 diabetes mellitus with mild nonproliferative diabetic retinopathy with macular edema, right eye Major depressive disorder, recurrent, moderate Alcohol dependence, uncomplicated Type 2 diabetes mellitus with diabetic polyneuropathy Tobacco use disorder Adhesive capsulitis Left shoulder pain BPH (benign prostatic hyperplasia) Osteoarthritis of left hip Skin sore Stress incontinence Borderline hyperlipidemia Hip pain Cellulitis Mental health assessment declined Steatosis Bilateral otitis externa Sleep apnea Otitis externa Hearing reduced Screening for malignant neoplasm of colon Type 2 diabetes mellitus History of recurrent TIAs Well adult exam Strain of muscle of right groin region (03/30/18) Chicken pox (1956) Measles (1955) Mumps (1958) Status post myocardial infarction Neuropathy Eczema Chronic cough Depression (2008) Obstructive sleep apnea Gout Shoulder pain Foot pain Chickenpox (7) Measles (6) Mumps (9) Kidney disease (2009) GERD (gastroesophageal reflux disease) (2012) Hypothyroidism Hypertension Hyperlipidemia Diabetes (1994) Coronary artery disease (2006) COPD (chronic obstructive pulmonary disease) Surgical History History of repair of left rotator cuff Anesthesia History of heart artery stent (2010) History of heart artery stent (2006) Hx of shoulder surgery (2005) Family History Brother Age: 71 Diabetes mellitus Hyperlipidemia Mother Heart disease Hypertension Hyperlipidemia Diabetes mellitus Grandmother Diabetes mellitus Brother No problems noted. Sister Breast cancer Social History marital status: details: 3 years ago household members: none lives independently: Yes housing: apartment Tobacco: How many years used: 45 alcohol intake: current Smoking Status: Current every day smoker tobacco type: cigarettes alcohol intake frequency: 0-2 drinks per day Exam Narrative Exam Narrative: General: Patient appears to be in no acute distress, acting appropriately Head: normocephalic, back of head has indurated, red abscess about 3x4cm in size HEENT: Pupils equal round reactive, eyes tracking well, neck supple, no JVD Heart: regular rate and rhythm, no murmurs, rubs, or gallops heard Lungs: clear to auscultation, no adventitious sounds Abdomen: soft , nontender, nondistended, positive bowel sounds Neurological: no focal neurological signs, moving all extremities well, alert and oriented x3, Psych: good judgment ,good insight, mood is normal. Initial Vital Signs Initial Vital Signs: Vital Signs Temperature 97.9 F 08/14/25 22:42 Pulse Rate 78 08/14/25 22:42 Respiratory Rate 20 08/14/25 22:42 Blood Pressure 95/50 L 08/14/25 22:42 Pulse Oximetry 92 08/14/25 22:42 Oxygen Delivery Method Room Air 08/14/25 22:42 Procedures Abscess I/D I&D #1: Time of procedure: 02:45 Site: scalp Local Anesthetic: lidocaine 2% Amount of anesthesia used (mL): 4 Technique: incised with #11 blade Amount of fluid expressed (mL): 2 Irrigation: Yes Packing used?: iodoform (1cm) Complications: other (none) Course Orders Ordered: ED Orders 08/15/25 02:22 Wound Culture and Gram Stain Stat Vital Signs Vital signs: Vital Signs - 8 hr 08/14/25 22:42 08/15/25 03:09 Temperature 97.9 F Pulse Rate 78 72 Respiratory Rate 20 20 Blood Pressure 95/50 L 112/58 L Pulse Oximetry 92 93 Oxygen Delivery Method Room Air Room Air MDM - Wound/Laceration MDM Narrative Medical decision making narrative: 69-year-old male who has this abscess in the back of his head that required incision and drainage. Was successfully done and a culture was taken. Patient will be started on Augmentin twice a day for a week. Patient advised to change the wound in 2 days and to follow up sooner if the infection worsens. Discharge Plan Departure Patient Disposition: Home Clinical Impression: Abscess Instructions: Incision and Drainage of a Skin Abscess Activity Restrictions/Additional Instructions: In 2 days, go ahead and change the bandaging. If infection worsens please come on back. Take antibiotics as prescribed. Prescriptions: New amoxicillin-pot clavulanate 875-125 mg tablet 1 tab PO BID 7 Days Qty: 14 0RF No Action (DME) blood-glucose meter Kit See Rx Instructions .ROUTE .MEDSUPPLY Qty: 1 0RF Rx Instructions: Use to test blood glucose BID (DME) Disabled Parking Permit See Rx Instructions .ROUTE .MEDSUPPLY Qty: 1 0RF Rx Instructions: Valid for 5 years (DME) pen needle, diabetic [Comfort EZ Pen [place]] 31 gauge x 5/16 needle See Dose Instructions .ROUTE .MEDSUPPLY Qty: 100 5RF Dose Instruction: As directed Rx Instructions: Use to inject insulin 5 times per day (DME) lancets [BD Ultra Fine Lancets] 33 gauge misc See Rx Instructions .ROUTE .MEDSUPPLY Qty: 100 6RF Rx Instructions: Use to test blood glucose twice daily (DME) Blood Glucose Test Strip See Rx Instructions .ROUTE .MEDSUPPLY Qty: 100 6RF Rx Instructions: Use to test blood glucose twice daily. levothyroxine 125 mcg tablet 125 mcg PO DAILY Qty: 90 0RF quetiapine 25 mg tablet 25 mg PO BEDTIME Qty: 90 3RF (DME) FreeStyle Timmy 2 Mineral Misc See Rx Instructions .ROUTE .MEDSUPPLY Qty: 1 12RF Rx Instructions: As directed albuterol sulfate [Proventil HFA] 90 mcg/actuation HFA aerosol inhaler 2 puff INHALATION QID PRN (Reason: shortness of breath) Qty: 18 5RF (DME) flash glucose sensor Kit See Rx Instructions .Route Qty: 1 6RF Rx Instructions: Use to check blood sugars twice daily. clopidogrel 75 mg tablet 75 mg PO DAILY Qty: 90 1RF bupropion HCl 300 mg tablet extended release 24 hr 300 mg PO DAILY Qty: 90 3RF ezetimibe 10 mg tablet 10 mg PO DAILY Qty: 90 3RF ibuprofen 600 mg tablet 600 mg PO Q8H PRN (Reason: pain) Qty: 90 3RF metoprolol succinate 25 mg tablet extended release 24 hr 25 mg PO DAILY Qty: 90 3RF amlodipine 5 mg tablet 5 mg PO DAILY Qty: 90 3RF isosorbide mononitrate 60 mg tablet extended release 24 hr 60 mg PO DAILY Qty: 90 3RF citalopram 40 mg tablet 40 mg PO DAILY Qty: 90 3RF nystatin 100,000 unit/gram powder 1 applic topical TID PRN (Reason: Tinea cruris) Qty: 30 2RF doxepin 10 mg capsule 10 mg PO BEDTIME Qty: 30 1RF (DME) FreeStyle Timmy 3 Plus Sensor Device See Rx Instructions .Route Qty: 9 3RF Rx Instructions: use as directed (DME) FreeStyle Timmy 3 Plus Sensor Device See Rx Instructions .Route Qty: 6 3RF Rx Instructions: As directed Ozempic 1 mg/dose (4 mg/3 mL) pen injector 1 mg SUBCUT QWEEK Qty: 9 3RF atorvastatin 80 mg tablet 80 mg PO DAILY Qty: 90 3RF gabapentin 300 mg capsule 600 mg PO BID Qty: 120 11RF oxycodone 5 mg tablet 5 mg PO TID PRN (Reason: Pain, Moderate) Qty: 90 0RF Rx Instructions: Cervical Spondylolysis M72.02 omeprazole 20 mg capsule,delayed release(DR/EC) 20 mg PO DAILY Qty: 90 3RF aspirin 81 mg tablet,chewable 81 mg PO DAILY nitroglycerin 0.4 mg tablet, sublingual 0.4 mg sublingual Q5M PRN Rx Instructions: do not exceed 3 doses per episode Novolog FlexPen U-100 Insulin 100 unit/mL (3 mL) insulin pen 5 unit SUBCUT .COMPLEX PRN Rx Instructions: 5 units subcutaneously 5 units a.c. t.i.d. depending on carbohydrate content of meal PRN; insulin glargine U-300 conc 300 unit/mL (3 mL) insulin pen 60 unit SUBCUT BID Rx Instructions: 60 units as of 04/26 beclomethasone dipropionate 40 mcg/actuation HFA aerosol breath activated 1 inh Inhalation BID Qty: 10.6 5RF (DME) FreeStyle Timmy 3 Plus Sensor Device See Rx Instructions .Route Qty: 1 3RF Rx Instructions: As directed naproxen 500 mg tablet 500 mg PO BID PRN (Reason: pain) Qty: 40 0RF nicotine 14 mg/24 hr patch 24 hour 1 patch transdermal Q24H Qty: 28 3RF doxycycline hyclate 100 mg tablet 100 mg PO BID Qty: 20 0RF Referrals: Gasper Rutherford DO [Primary Care Provider, Family Practice] Stand Alone Forms: Patient Portal/API
[2025-08-15 03:09] VITALS: BP 112/58; PULSE 72; RESP 20; O2SAT 93
== END 2025-08-15 03:11 | disposition home or self-care (01) ==
PROVIDERS: Emergency Provider Family Medicine; PCP Family Medicine
DX: L02.811 Cutaneous abscess of head [any part, except face] (principal)
CPT/HCPCS: 10060; 87070; 87077; 87147; 87186; 87205; 99281; 99283

== ENCOUNTER 2025-09-28 10:38 | Emergency (ER) | payer OTHER, MEDICAID, SELFPAY ==
[2024-12-01 15:43] VITALS: BMI 33.9
[2025-09-28] VITALS (10 sets, daily range): BP systolic 119–145; BP diastolic 75–95; PULSE 81–91; RESP 12–28; TEMP 36.8; O2SAT 95–98
--- NOTE | 2025-09-28 11:07 | DI.CT.S_ITS ---
PROCEDURE: CT CERVICAL SPINE WO CON INDICATIONS: fall on plavix TECHNIQUE: Noncontrast 3 mm thick sections acquired from the skull base to the T4 level. Sagittal and coronal reformats were then constructed. For radiation dose reduction, the following was used: automated exposure control, adjustment of mA and/or kV according to patient size. COMPARISON: [facility], CT, CT CERVICAL SPINE WO CON, 01/22/2025, 22:46. FINDINGS: Image quality: Diagnostic Bones: No fractures or dislocations. Visualized superior ribs are intact. Reversal of the usual cervical lordosis centered at C4 with moderately degenerated disc osteophyte complexes from C3-4 through C6-7. Soft tissues: Prevertebral soft tissues are normal in thickness. No paravertebral hematomas. Layering bilateral, left greater than right, pleural effusions. IMPRESSION: No fracture or traumatic subluxation. Dictated by: Meño Chang M.D. on 09/28/2025 at 11:24 Approved by: Meño Chang M.D. on 09/28/2025 at 12:06
--- NOTE | 2025-09-28 11:07 | DI.CT.S_ITS ---
PROCEDURE: CT HEAD/BRAIN WO CON INDICATIONS: fall on plavix TECHNIQUE: Noncontrast 4.5 mm thick angled axial sections acquired from the foramen magnum to the vertex, with coronal and sagittal reformats. For radiation dose reduction, the following was used: automated exposure control, adjustment of mA and/or kV according to patient size. COMPARISON: [facility], CT, CT HEAD/BRAIN WO CON, 01/22/2025, 22:46. FINDINGS: Image quality: Diagnostic. CSF spaces: Basal cisterns are patent. No extra-axial fluid collections. The ventricles are symmetric in size and shape. Brain: No intracranial bleeds or mass effect. There is cerebral volume loss, with resultant ventricular and sulcal prominence. There are periventricular and deep white matter chronic small vessel ischemic changes. There is intracranial internal carotid artery atherosclerosis. Skull and face: Calvarium and visualized facial bones appear intact, without suspicious lesions. Sinuses: Visualized sinuses and mastoids are clear. IMPRESSION: No acute intracranial pathology. Communication: The above findings were discussed with the ordering clinician, Dr. Brower, by Dr. Chang via telephone on 09/28/2025 at 11:32 am PST. Dictated by: Meño Chang M.D. on 09/28/2025 at 11:29 Approved by: Meño Chang M.D. on 09/28/2025 at 11:32
--- NOTE | 2025-09-28 11:08 | ED_ITS ---
HPI - Fall General Chief Complaint: Fall Stated Complaint: Fall from WC, +Plavix Time Seen by Provider: 09/28/25 10:42 Source: patient Mode of arrival: EMS Related Data Home Medications ?Medication ?Instructions ?Recorded ?Confirmed aspirin 81 mg chewable tablet 81 mg PO DAILY 04/27/24 09/04/25 nitroglycerin 0.4 mg sublingual 0.4 mg sublingual Q5M PRN 04/27/24 09/04/25 tablet Previous Rx's ?Medication ?Instructions ?Recorded blood-glucose meter #1 ea 01/11/21 Disabled Parking Permit #1 ea 02/15/21 lancets 33 gauge (BD Ultra Fine #100 ea 09/24/22 Lancets) pen needle, diabetic 31 gauge x #100 ea 09/24/2203/17 (Comfort EZ Pen [place]) naproxen 500 mg tablet 500 mg PO BID PRN pain #40 t abs 01/26/24 blood sugar diagnostic (Blood #100 ea 03/22/24 Glucose Test strips) levothyroxine 125 mcg tablet 125 mcg PO DAILY #90 tabs 03/22/24 quetiapine 25 mg tablet 25 mg PO BEDTIME #90 tabs flash glucose scanning reader #1 ea 06/20/24 (FreeStyle Timmy 2 [place]) clopidogrel 75 mg tablet 75 mg PO DAILY #90 tabs 11/03 01/24 bupropion HCl 300 mg 24 hr tablet, 300 mg PO DAILY #90 tabs 11/28/24 extended release nicotine 14 mg/24 hr daily 1 patch transdermal Q24H ni cotine 12/01/24 transdermal patch cessation #28 ea ezetimibe 10 mg tablet 10 mg PO DAILY #90 tabs 11/04 11/26 ibuprofen 600 mg tablet 600 mg PO Q8H PRN pain #90 t abs 12/02/24 metoprolol succinate 25 mg 25 mg PO DAILY #90 tabs tablet,extended release 24 hr amlodipine 5 mg tablet 5 mg PO DAILY #90 tabs 12/27 isosorbide mononitrate 60 mg 60 mg PO DAILY #90 tabs 0 12/27/24 tablet,extended release 24 hr beclomethasone dipropionate 40 1 inh inhalation BID Sh ortness Of 01/05/25 mcg/actuation HFA breath activated Breath #10.6 grams aerosol citalopram 40 mg tablet 40 mg PO DAILY #90 tabs 01/01 11/26 nystatin 100,000 unit/gram topical 1 applic topical TI D PRN Tinea 02/13/25 powder cruris #30 grams doxepin 10 mg capsule 10 mg PO BEDTIME #30 caps blood-glucose sensor (FreeStyle #9 ea 04/12/25 Timmy 3 Plus Sensor device) blood-glucose sensor (FreeStyle #1 ea 04/13/25 Timmy 3 Plus Sensor device) blood-glucose sensor (FreeStyle #6 ea 05/08/25 Timmy 3 Plus Sensor device) atorvastatin 80 mg tablet 80 mg PO DAILY #90 tabs 05/02 doxycycline hyclate 100 mg tablet 100 mg PO BID #20 ta bs 07/07/25 gabapentin 300 mg capsule 600 mg (2 x 300 mg) PO BID # 120 07/27/25 caps omeprazole 20 mg capsule,delayed 20 mg PO DAILY #90 ca ps 08/11/25 release doxycycline hyclate 100 mg capsule 100 mg PO BID #14 c aps 08/17/25 oxycodone 5 mg tablet 5 mg PO TID PRN Pain, Modera te #90 08/22/25 tabs oxycodone 5 mg tablet 5 mg PO TID PRN pain #90 tab s 08/22/25 oxycodone 5 mg tablet 5 mg PO TID PRN pain #90 tab s 08/22/25 semaglutide 2 mg/dose (8 mg/3 mL) 2 mg (0.75 mL) SUBCU T QWEEK #3 mL 08/31/25 subcutaneous pen injector flash glucose sensor (FreeStyle #6 kits 09/18/25 Timmy 2 Sensor kit) insulin glargine U-300 conc 300 60 unit (0.2 mL) SUBCU T BID #54 mL 09/18/25 unit/mL (3 mL) subcutaneous pen albuterol sulfate 90 mcg/actuation 2 puff inhalation Q ID PRN 09/19/25 aerosol inhaler shortness of breath #18 gram s insulin aspart U-100 100 unit/mL 5 unit (0.05 mL) SUBC UT .COMPLEX 09/19/25 (3 mL) subcutaneous pen (Novolog PRN blood glucose con trol #15 mL FlexPen U-100 Insulin aspart) Allergies Allergy/AdvReac Type Severity Reaction Status Date / Time adhesive Allergy Mild REDNESS/ITC Verified 09/28/25 10:46 HINESS morphine AdvReac ITCHING Verified 09/28/25 10:46 Patient History Medical History Scalp abscess Chronic lower back pain Hypertensive heart disease with heart failure Type 2 diabetes mellitus with other circulatory complications Unintentional weight loss of 10% body weight within 6 months Type 2 diabetes mellitus with mild nonproliferative diabetic retinopathy with macular edema, right eye Major depressive disorder, recurrent, moderate Alcohol dependence, uncomplicated Type 2 diabetes mellitus with diabetic polyneuropathy Tobacco use disorder Adhesive capsulitis Left shoulder pain BPH (benign prostatic hyperplasia) Osteoarthritis of left hip Skin sore Stress incontinence Borderline hyperlipidemia Hip pain Cellulitis Mental health assessment declined Steatosis Bilateral otitis externa Sleep apnea Otitis externa Hearing reduced Screening for malignant neoplasm of colon Type 2 diabetes mellitus History of recurrent TIAs Well adult exam Strain of muscle of right groin region (03/30/18) Chicken pox (1956) Measles (1955) Mumps (1958) Status post myocardial infarction Neuropathy Eczema Chronic cough Depression (2008) Obstructive sleep apnea Gout Shoulder pain Foot pain Chickenpox (1956) Measles (6) Mumps (1958) Kidney disease (2009) GERD (gastroesophageal reflux disease) (2012) Hypothyroidism Hypertension Hyperlipidemia Diabetes (1994) Coronary artery disease (2006) COPD (chronic obstructive pulmonary disease) Surgical History History of repair of left rotator cuff Anesthesia History of heart artery stent (2010) History of heart artery stent (2006) Hx of shoulder surgery (2005) Family History Brother Age: 71 Diabetes mellitus Hyperlipidemia Mother Heart disease Hypertension Hyperlipidemia Diabetes mellitus Grandmother Diabetes mellitus Brother No problems noted. Sister Breast cancer Social History marital status: details: 3 years ago household members: none lives independently: Yes housing: apartment Smoking Status: Current every day smoker Tobacco: How many years used: 45 alcohol intake: current Smoking Status: Current every day smoker tobacco type: cigarettes alcohol intake frequency: 0-2 drinks per day Exam Initial Vital Signs Initial Vital Signs: Vital Signs Pulse Rate 85 09/28/25 10:41 Blood Pressure 134/95 H 09/28/25 10:41 Pulse Oximetry 97 09/28/25 10:41 Course Course Course Narrative: 1108 patient seen labs and imaging ordered 1236 discussed workup and results with patient C-spine cleared via nexus criteria return precautions discussed Orders Ordered: ED Orders 09/28/25 11:07 CT cervical spine wo con Stat CT head/brain wo con Stat 09/28/25 11:12 CBC Auto Diff [Complete Blood Count AUTO DIFF] Stat CMP [Comprehensive Metabolic Panel] Stat Vital Signs Vital signs: Vital Signs - 8 hr 09/28/25 10:41 09/28/25 10:41 09/28/25 10:46 Temperature 98.3 F Pulse Rate 85 89 Respiratory Rate 16 Blood Pressure 134/95 H 134/95 H Pulse Oximetry 97 95 Oxygen Delivery Method Room Air 09/28/25 10:50 09/28/25 10:50 09/28/25 11:00 Temperature Pulse Rate 81 Respiratory Rate 18 Blood Pressure 130/83 119/94 H Pulse Oximetry 97 Oxygen Delivery Method 09/28/25 11:00 09/28/25 11:10 09/28/25 11:10 Temperature Pulse Rate 91 H 85 Respiratory Rate 28 H Blood Pressure 142/91 H Pulse Oximetry 97 98 Oxygen Delivery Method 09/28/25 11:30 Temperature Pulse Rate 84 Respiratory Rate 15 Blood Pressure Pulse Oximetry 97 Oxygen Delivery Method MDM - Fall Lab Data 09/28/25 11:12 09/28/25 11:12 Labs: Lab Results 09/28/25 Range/Units 11:12 WBC 9.3 (4.5-11.0) X10^3/uL RBC 3.70 L (4.5-5.9) X10^6/uL Hgb 11.0 L (13.5-17.5) g/dL Hct 32.1 L (41-53) % MCV 86.6 (80-100) fL MCH 29.8 (26-34) PG MCHC 34.4 (30-36) % RDW 14.4 (11.6-14.8) % Plt Count 288 (150-400) X10^3/uL Neut % (Auto) 74.3 (50-75) % Lymph % (Auto) 14.7 L (25-40) % Will % (Auto) 9.0 (3-14) % Eos % (Auto) 1.8 L (2-4) % Baso % (Auto) 0.2 (0-2) % Neut # (Auto) 6900 (7376-5971) /uL Lymph # (Auto) 1400 (5017-2053) /uL Will # (Auto) 800 (0-900) /uL Eos # (Auto) 200 (0-450) /uL Baso # (Auto) 0 (0-100) /uL Sodium 135 L (137-145) mmol/L Potassium 4.0 (3.4-5.1) mmol/L Chloride 100 (98-107) mmol/L Carbon Dioxide 29 (22-32) mmol/L BUN 12 (9-20) mg/dL Creatinine 0.75 (0.66-1.25) mg/dL Estimated GFR > 60 (>60) mL/min BUN/Creatinine Ratio 16.0 (6-22) Glucose 98 (70-99) mg/dL Calcium 8.5 (8.4-10.2) mg/dL Total Bilirubin 0.4 (0.2-1.3) mg/dL AST 39 (17-59) IU/L ALT 23 (<50) IU/L Alkaline Phosphatase 127 H (38-126) U/L Total Protein 7.0 (6.3-8.2) g/dL Albumin 3.4 L (3.5-5.0) g/dL Globulin 3.6 (1.7-4.1) g/dL Albumin/Globulin Ratio 0.9 L (1.0-2.8) Point of Care Testing Glucose POC 125 Discharge Plan Departure Prescriptions: No Action (DME) blood-glucose meter Kit See Rx Instructions .ROUTE .MEDSUPPLY Qty: 1 0RF Rx Instructions: Use to test blood glucose BID (DME) Disabled Parking Permit See Rx Instructions .ROUTE .MEDSUPPLY Qty: 1 0RF Rx Instructions: Valid for 5 years (DME) pen needle, diabetic [Comfort EZ Pen [place]] 31 gauge x 5/16 needle See Dose Instructions .ROUTE .MEDSUPPLY Qty: 100 5RF Dose Instruction: As directed Rx Instructions: Use to inject insulin 5 times per day (DME) lancets [BD Ultra Fine Lancets] 33 gauge misc See Rx Instructions .ROUTE .MEDSUPPLY Qty: 100 6RF Rx Instructions: Use to test blood glucose twice daily (DME) Blood Glucose Test Strip See Rx Instructions .ROUTE .MEDSUPPLY Qty: 100 6RF Rx Instructions: Use to test blood glucose twice daily. levothyroxine 125 mcg tablet 125 mcg PO DAILY Qty: 90 0RF quetiapine 25 mg tablet 25 mg PO BEDTIME Qty: 90 3RF (DME) FreeStyle Timmy 2 [place] Misc See Rx Instructions .ROUTE .MEDSUPPLY Qty: 1 12RF Rx Instructions: As directed clopidogrel 75 mg tablet 75 mg PO DAILY Qty: 90 1RF bupropion HCl 300 mg tablet extended release 24 hr 300 mg PO DAILY Qty: 90 3RF ezetimibe 10 mg tablet 10 mg PO DAILY Qty: 90 3RF ibuprofen 600 mg tablet 600 mg PO Q8H PRN (Reason: pain) Qty: 90 3RF metoprolol succinate 25 mg tablet extended release 24 hr 25 mg PO DAILY Qty: 90 3RF amlodipine 5 mg tablet 5 mg PO DAILY Qty: 90 3RF isosorbide mononitrate 60 mg tablet extended release 24 hr 60 mg PO DAILY Qty: 90 3RF citalopram 40 mg tablet 40 mg PO DAILY Qty: 90 3RF nystatin 100,000 unit/gram powder 1 applic topical TID PRN (Reason: Tinea cruris) Qty: 30 2RF doxepin 10 mg capsule 10 mg PO BEDTIME Qty: 30 1RF (DME) FreeStyle Timmy 3 Plus Sensor Device See Rx Instructions .Route Qty: 9 3RF Rx Instructions: use as directed (DME) FreeStyle Timmy 3 Plus Sensor Device See Rx Instructions .Route Qty: 6 3RF Rx Instructions: As directed atorvastatin 80 mg tablet 80 mg PO DAILY Qty: 90 3RF gabapentin 300 mg capsule 600 mg PO BID Qty: 120 11RF omeprazole 20 mg capsule,delayed release(DR/EC) 20 mg PO DAILY Qty: 90 3RF semaglutide 2 mg/dose (8 mg/3 mL) pen injector 2 mg SUBCUT QWEEK Qty: 3 3RF insulin glargine U-300 conc 300 unit/mL (3 mL) insulin pen 60 unit SUBCUT BID Qty: 54 3RF Rx Instructions[place] 60 [place] [place] FreeStyle Timmy 2 Sensor Kit See Rx Instructions .ROUTE .COMPLEX Qty: 6 3RF Dose Instruction: USE TO CHECK BLOOD SUGAR TWICE DAILY; CHANGE SENSOR EVERY 14 DAYS DIRECTED Rx Instructions: USE TO CHECK BLOOD SUGAR TWICE DAILY; CHANGE SENSOR EVERY 14 DAYS DIRECTED albuterol sulfate 90 mcg/actuation HFA aerosol inhaler 2 puff INHALATION QID PRN (Reason: shortness of breath) Qty: 18 5RF Novolog FlexPen U-100 Insulin 100 unit/mL (3 mL) insulin pen 5 unit SUBCUT .COMPLEX PRN (Reason: blood glucose control) Qty: 15 11RF Rx Instructions: 5 units subcutaneously 5 units a.c. t.i.d. depending on carbohydrate content of meal PRN; aspirin 81 mg tablet,chewable 81 mg PO DAILY nitroglycerin 0.4 mg tablet, sublingual 0.4 mg sublingual Q5M PRN Rx Instructions: do not exceed 3 doses per episode beclomethasone dipropionate 40 mcg/actuation HFA aerosol breath activated 1 inh Inhalation BID Qty: 10.6 5RF (DME) FreeStyle Timmy 3 Plus Sensor Device See Rx Instructions .Route Qty: 1 3RF Rx Instructions: As directed naproxen 500 mg tablet 500 mg PO BID PRN (Reason: pain) Qty: 40 0RF nicotine 14 mg/24 hr patch 24 hour 1 patch transdermal Q24H Qty: 28 3RF oxycodone 5 mg tablet 5 mg PO TID PRN (Reason: pain) Qty: 90 0RF Rx Instructions: rf 2 oxycodone 5 mg tablet 5 mg PO TID PRN (Reason: pain) Qty: 90 0RF Rx Instructions: rf 3 oxycodone 5 mg tablet 5 mg PO TID PRN (Reason: Pain, Moderate) Qty: 90 0RF Rx Instructions: Cervical Spondylolysis M72.02 doxycycline hyclate 100 mg tablet 100 mg PO BID Qty: 20 0RF doxycycline hyclate 100 mg capsule 100 mg PO BID Qty: 14 0RF Referrals: Gasper Rutherford DO [Primary Care Provider, Family Practice]
--- NOTE | 2025-09-28 11:12 | PC.NURSE ---
pt to CT
[2025-09-28 11:19] LABS: Add Manual Diff / Slide Review NO; Hematocrit 32.1 % (41-53); Hemoglobin 11.0 g/dL (13.5-17.5); Lymphocytes Absolute Auto 1400 /uL (1100-4500); Mean Corpuscular HGB Conc 34.4 % (30-36); Mean Corpuscular Hemoglobin 29.8 PG (26-34); Mean Corpuscular Volume 86.6 fL (80-100); Platelet Count 288 X10^3/uL (150-400)
[2025-09-28 11:31] LABS: Alanine Aminotransferase 23 IU/L (<50); Albumin 3.4 g/dL (3.5-5.0); Albumin Globulin Ratio 0.9 (1.0-2.8); Alkaline Phosphatase 127 U/L (38-126); Blood Urea Nitrogen 12 mg/dL (9-20); Calcium 8.5 mg/dL (8.4-10.2); Carbon Dioxide 29 mmol/L (22-32); Chloride 100 mmol/L (98-107); Estimated Glomerular Filt Rate > 60 mL/min (>60); Globulin 3.6 g/dL (1.7-4.1); Glucose 98 mg/dL (70-99); HEMOLYSIS < 15 (0-50); Potassium 4.0 mmol/L (3.4-5.1); Sodium 135 mmol/L (137-145); Total Protein 7.0 g/dL (6.3-8.2)
--- NOTE | 2025-09-28 11:41 | PC.NURSE ---
pt back from CT. Denies needing anything at this time
== END 2025-09-28 12:52 | disposition home or self-care (01) ==
PROVIDERS: Emergency Provider Student in an Organized Health Care Education/Training Program; PCP Family Medicine
DX: S09.90XA Unspecified injury of head, initial encounter (principal); W05.0XXA Fall from non-moving wheelchair, initial encounter; Z79.02 Long term (current) use of antithrombotics/antiplatelets
CPT/HCPCS: 36415; 70450; 72125; 80053; 85025; 99284